=== PATIENT | female | born 1975 | race Caucasian/White ===

== ENCOUNTER 2017-01-13 14:08 | Emergency (ER) | payer BC, MEDICARE ==
[2017-01-13 14:34] VITALS: BP 109/67
[2017-01-13] MEDS ORDERED: Ondansetron 4 MG Tab.DIS PO ONE (14:51)
--- NOTE | 2017-01-13 15:19 | EDM.PDOC ---
ED HPI GI/ABDOMINAL - General Chief Complaint: Abdominal Pain Stated Complaint: PANCREATITIS Time Seen by Provider: 01/13/17 14:31 Source of Information: Reports: Patient History Limitations: Reports: No limitations - History of Present Illness INITIAL COMMENTS - FREE TEXT/NARRATIVE: The patient presents with left upper quadrant abdominal pain. This started yesterday and it has gotten worse. She has some nausea and vomiting. She has no dysuria. She has a history of pencreatitis. She was scheduled to see a specialist at the [facility] and have surgery. That was canceled and rescheduled for the middle of january. She has been doing good for awhile. She does not think she ate anything to trigger this. Timing/Duration: Reports: Day(s): (Yesterday) Location: [facility] Quality: Reports: stabbing Context: Denies: bad/questionable food, out of country travel, recent surgery, recent trauma Associated Symptoms (-Female): Reports: nausea/vomiting. Denies: chest pain, diarrhea, fever/chills - Related Data Allergies/ADRs: Allergies Allergy/AdvReac Type Severity Reaction Status Date / Time ketorolac [From Toradol] Allergy Bleeding Verified 01/13/17 14:18 metoclopramide HCl Allergy Itching Verified 01/13/17 14:18 [From Reglan] buprenorphine [From Butrans] AdvReac Other Verified 01/13/17 14:18 ketorolac tromethamine AdvReac Stomach Verified 01/13/17 14:18 [From Toradol] Upset prochlorperazine AdvReac Vomiting Verified 01/13/17 14:18 [From Compazine] Home Meds: Home Meds Promethazine [Phenergan] 25 mg PO Q8H PRN 12/15/16 [History] Sertraline [Zoloft] 100 mg PO DAILY 12/15/16 [History] oxyCODONE HCl/Acetaminophen [Percocet 5-325 mg Tablet] 1 tab PO ASDIRECTED PRN 12/15/16 [History] Levothyroxine Sodium [Synthroid] 200 mcg PO DAILY 01/13/17 [History] Past Medical History - Past Health History Medical/Surgical History: Denies Medical/Surgical History HEENT History: Reports: Glaucoma Other Respiratory History: cough RLQ Gastrointestinal History: Reports: Pancreatitis Other OB/BYN History: c section x3, tubes tied Musculoskeletal History: Reports: Arthritis Neurological History: 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 (see below) Other Neuro History: pseudotumor Psychiatric History: Reports: Addiction Endocrine/Metabolic History: Reports: Hypothyroidism - Past Surgical History GI Surgical History: Reports: Appendectomy, Bariatric procedure, Cholecystectomy Female Surgical History: Reports: section, Tubal ligation Social & Family History - Family History Family Medical History: Noncontributory Cardiac: Reports: Bypass, Hypertension, [place] Respiratory: Reports: Asthma Oncologic: Reports: Colon - Tobacco Use Smoking Status *Q: Never Smoker Packs/Tins Daily: 1 Used Tobacco, but Quit: Yes Month Tobacco Last Used: 23 years ago Second Hand Smoke Exposure: No - Caffeine Use Caffeine Use: Reports: None - Alcohol Use Days Per Week of Alcohol Use: 0 - Recreational Drug Use Recreational Drug Use: No Drug Use in Last 12 Months: No - Living Situation & Occupation Living situation: Reports: , with spouse Occupation: unemployed ED ROS GENERAL - Review of Systems Review Of Systems: See Below Constitutional: Reports: no symptoms HEENT: Reports: No symptoms Respiratory: Reports: no symptoms Cardiovascular: Reports: No symptoms Endocrine: Reports: no symptoms GI/Abdominal: Reports: Abdominal pain, Nausea, Vomiting : Reports: no symptoms Musculoskeletal: Reports: no symptoms Skin: Reports: no symptoms Neurological: Reports: no symptoms ED EXAM, GI/ABD - Physical Exam Exam: See Below Exam Limited By: No limitations General Appearance: alert, no apparent distress Ears: normal external exam Nose: normal inspection Head: atraumatic, normocephalic Neck: normal inspection Respiratory/Chest: no respiratory distress, lungs clear, normal breath sounds Cardiovascular: regular rate, rhythm, no edema, no murmur GI/Abdominal: soft, no organomegaly, tenderness (Moderate tenderness to the left upper abdomen) Back Exam: normal inspection Extremities: normal inspection Course - Vital Signs Last Recorded V/S: Last Vital Signs Temp 97.3 F 01/13/17 14:20 Pulse 76 01/13/17 14:20 Resp 16 01/13/17 14:20 BP 109/67 01/13/17 14:20 Pulse Ox 100 01/13/17 14:20 - Orders/Labs/Meds Orders: Active Orders 24 hr Category Date Time Status Cardiac Monitoring [RC] . DIRECTED Care 01/13/17 14:51 Active HYDROmorphone [Dilaudid] Med 01/13/17 16:48 Once 1 mg IM ONETIME ONE Promethazine [Phenergan] Med 01/13/17 16:49 Once 25 mg IM ONETIME ONE Labs: Laboratory Tests 01/13/17 01/13/17 01/13/17 Range/Units 15:12 15:12 15:20 WBC 9.29 (3.98-10.04) K/mm3 RBC 3.88 L (3.98-5.22) M/mm3 Hgb 11.4 (11.2-15.7) gm/L Hct 35.4 (34.1-44.9) % MCV 91.2 (79.4-94.8) fl MCH 29.4 (25.6-32.2) pg MCHC 32.2 (32.2-35.5) g/dl RDW Std Deviation 49.1 H (36.4-46.3) fL Plt Count 298 (182-369) K/mm3 MPV 10.3 (9.4-12.3) fl Neut % (Auto) 54.2 (34.0-71.1) % Lymph % (Auto) 34.3 (19.3-51.7) % [place] % (Auto) 10.0 (4.7-12.5) % Eos % (Auto) 1.2 (0.7-5.8) Baso % (Auto) 0.2 (0.1-1.2) % Neut # 5.03 (1.56-6.13) K/mm3 Lymph # 3.19 (1.18-3.74) K/mm3 [place] # 0.93 H (0.24-0.36) K/mm3 Eos # 0.11 (0.04-0.36) K/mm3 Baso # 0.02 (0.01-0.08) K/mm3 Sodium 140 (136-145) mEq/L Potassium 3.9 (3.5-5.1) mEq/L Chloride 106 (98-107) mEq/L Carbon Dioxide 23 (21-32) mEq/L Anion Gap 14.9 (5-15) BUN 10 (7-18) mg/dL Creatinine 0.7 (0.55-1.02) mg/dL Est Cr Clr Drug Dosing TNP Estimated GFR (MDRD) > 60 (>60) mL/min BUN/Creatinine Ratio 14.3 (14-18) Glucose 88 (74-106) mg/dL Calcium 9.2 (8.5-10.1) mg/dL Total Bilirubin 0.1 L (0.2-1.0) mg/dL AST 14 L (15-37) U/L ALT 18 (14-59) U/L Alkaline Phosphatase 68 (46-116) U/L Total Protein 7.6 (6.4-8.2) g/dl Albumin 3.6 (3.4-5.0) g/dl Globulin 4.0 gm/dL Albumin/Globulin Ratio 0.9 L (1-2) Lipase 673 H (73-393) U/L Urine Color Yellow (Yellow) Urine Appearance Clear (Clear) Urine pH 8.5 H (5.0-8.0) Ur Specific [place] 1.015 (1.005-1.030) Urine Protein 2+ H (Negative) Urine Glucose (UA) Negative (Negative) Urine Ketones Negative (Negative) Urine Occult Blood Negative (Negative) Urine Nitrite Negative (Negative) Urine Bilirubin Negative (Negative) Urine Urobilinogen 1.0 (0.2-1.0) Ur Leukocyte Esterase Negative (Negative) Urine RBC 0-5 (0-5) /hpf Urine WBC 0-5 (0-5) /hpf Ur Squamous Epith Cells 0-5 (0-5) /hpf Urine Bacteria Few (FEW) /hpf Urine Mucus Not seen (FEW) /hpf Meds: Medications Discontinued Medications Generic Name Dose Route Start Last Admin Trade Name Dominic PRN Reason Stop Dose Admin Ondansetron HCl 4 mg 01/13/17 14:51 01/13/17 15:10 Zofran Odt PO 01/13/17 14:52 4 mg ONETIME ONE Administration - Re-Assessments/Exams Free Text/Narrative Re-Assessment/Exam: 01/13/17 15:24 I have ordered some zofran for the nausea and vomiting and I will get labs and a UA. 01/13/17 16:49 Her CBC and CMP look good. Her UA shows no UTI. Her lipase is elevated to 673. I ordered some dilaudid 1mg IM and phenergan 25mg IM. Departure - Departure Time of Disposition: 16:55 Disposition: Home, Self-Care 01 Condition: good Clinical Impression: History of chronic pancreatitis Referrals: Rik Walls PA-C [Primary Care Provider] - Forms: ED Department Discharge Additional Instructions: Take a clear liquid diet for a couple day sand advance as tolerated. Continue with your medication as prescribed. - My Orders Last 24 Hours: My Active Orders 01/13/17 14:51 Cardiac Monitoring [RC] . DIRECTED 01/13/17 16:48 HYDROmorphone [Dilaudid] 1 mg IM ONETIME ONE 01/13/17 16:49 Promethazine [Phenergan] 25 mg IM ONETIME ONE - Assessment/Plan Last 24 Hours: My Active Orders 01/13/17 14:51 Cardiac Monitoring [RC] . DIRECTED 01/13/17 16:48 HYDROmorphone [Dilaudid] 1 mg IM ONETIME ONE 01/13/17 16:49 Promethazine [Phenergan] 25 mg IM ONETIME ONE
[2017-01-13] MEDS ORDERED: HYDROmorphone 1 MG/ML Syringe IM ONE (16:48)
[2017-01-13] MEDS ORDERED: Promethazine 25 MG/ML SDV IM ONE (16:49)
== END 2017-01-13 17:15 | disposition home or self-care (01) ==
LOC: JD.ED 14:08
DX: K86.1 Other chronic pancreatitis (principal); M19.90 Unspecified osteoarthritis, unspecified site; E03.9 Hypothyroidism, unspecified; Z88.6 Allergy status to analgesic agent; Z88.8 Allergy status to other drugs, medicaments and biological substances; Z90.49 Acquired absence of other specified parts of digestive tract; Z98.84 Bariatric surgery status; Z98.51 Tubal ligation status
CPT/HCPCS: 36415; 80053; 81001; 83690; 85025; 96372; 99284; 99284-25; A9270-GY; J1170; J2550

== ENCOUNTER 2017-01-14 08:56 | Emergency (ER) | payer BC, MEDICARE ==
--- NOTE | 2017-01-14 09:36 | EDM.PDOC ---
ED HPI GI/ABDOMINAL - General Chief Complaint: Abdominal Pain Stated Complaint: PANCREATITIS Time Seen by Provider: 01/14/17 09:29 Source of Information: Reports: Patient, RN notes reviewed - History of Present Illness INITIAL COMMENTS - FREE TEXT/NARRATIVE: 41-year-old lady comes in with left upper quadrant abdominal pain. This started yesterday. She was seen here in the ED yesterday for those symptoms. See that record for details. The pain is worse today. She has had nausea but not vomiting today. She has had diarrhea also this started about 2 days ago. She's had some chills, no definite fever. She does have history of "chronic pancreatitis". Her and her are very worried about that. Her lipase was elevated yesterday. Today the discomfort also is radiating to her back. He states she does have an appointment to see a [facility]special[facility]. - Related Data Allergies/ADRs: Allergies Allergy/AdvReac Type Severity Reaction Status Date / Time ketorolac [From Toradol] Allergy Bleeding Verified 01/14/17 09:10 metoclopramide HCl Allergy Itching Verified 01/14/17 09:10 [From Reglan] buprenorphine [From Butrans] AdvReac Other Verified 01/14/17 09:10 ketorolac tromethamine AdvReac Stomach Verified 01/14/17 09:10 [From Toradol] Upset prochlorperazine AdvReac Vomiting Verified 01/14/17 09:10 [From Compazine] Home Meds: Home Meds Promethazine [Phenergan] 25 mg PO Q8H PRN 12/15/16 [History] Sertraline [Zoloft] 100 mg PO DAILY 12/15/16 [History] oxyCODONE HCl/Acetaminophen [Percocet 5-325 mg Tablet] 1 tab PO ASDIRECTED PRN 12/15/16 [History] Levothyroxine Sodium [Synthroid] 200 mcg PO DAILY 01/13/17 [History] Past Medical History - Past Health History Medical/Surgical History: Denies Medical/Surgical History HEENT History: Reports: Glaucoma Other Respiratory History: cough RLQ Gastrointestinal History: Reports: Pancreatitis Other OB/BYN History: c section x3, tubes tied Musculoskeletal History: Reports: Arthritis Neurological History: 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 (see below) Other Neuro History: pseudotumor Psychiatric History: Reports: Addiction Endocrine/Metabolic History: Reports: Hypothyroidism - Past Surgical History GI Surgical History: Reports: Appendectomy, Bariatric procedure, Cholecystectomy Female Surgical History: Reports: section, Tubal ligation Social & Family History - Family History Family Medical History: Noncontributory Cardiac: Reports: Bypass, Hypertension, [place] Respiratory: Reports: Asthma Oncologic: Reports: Colon - Tobacco Use Smoking Status *Q: Former Smoker Packs/Tins Daily: 1 Used Tobacco, but Quit: Yes Month Tobacco Last Used: 23 years Second Hand Smoke Exposure: No - Caffeine Use Caffeine Use: Reports: None - Alcohol Use Days Per Week of Alcohol Use: 0 - Recreational Drug Use Recreational Drug Use: No Drug Use in Last 12 Months: No - Living Situation & Occupation Living situation: Reports: , with spouse Occupation: unemployed ED ROS GENERAL - Review of Systems Review Of Systems: See Below Constitutional: Reports: chills. Denies: fever HEENT: Reports: No symptoms Respiratory: Denies: shortness of breath Cardiovascular: Denies: Chest pain GI/Abdominal: Reports: Abdominal pain (left upper quadrant), Diarrhea (somewhat frequent for the past 2 days), Nausea. Denies: Vomiting : Reports: no symptoms Musculoskeletal: Reports: back pain Skin: Reports: no symptoms Neurological: Denies: dizziness, numbness, tingling ED EXAM, GI/ABD - Physical Exam Exam: See Below General Appearance: alert, moderate distress Eyes: bilateral: normal appearance, EOMI Throat/Mouth: Normal inspection Head: atraumatic. No: facial swelling Neck: supple, full range of motion Respiratory/Chest: no respiratory distress, lungs clear, normal breath sounds Cardiovascular: regular rate, rhythm GI/Abdominal: soft, tenderness (left upper abdomen). No: guarding, rebound, mass Back Exam: No: CVA tenderness (L), CVA tenderness (R) Extremities: normal inspection. No: pedal edema, leg pain Neurological: alert, oriented, no motor/sensory deficits Skin Exam: Warm, Dry, Normal color Course - Vital Signs Last Recorded V/S: Last Vital Signs Temp 97.4 F 01/14/17 09:05 Pulse 68 01/14/17 09:05 Resp 16 01/14/17 09:05 BP 106/73 01/14/17 09:05 Pulse Ox 98 01/14/17 09:05 - Orders/Labs/Meds Orders: Active Orders 24 hr Category Date Time Status Peripheral IV Care [RC] . DIRECTED Care 01/14/17 10:17 Active Abdomen Pelvis w Cont [CT] Stat Exams 01/14/17 10:16 Taken Ketorolac [Toradol] Med 01/14/17 13:00 Active 30 mg IVPUSH ONETIME Sodium Chloride 0.9% [Saline Flush] Med 01/14/17 10:16 Active 10 ml FLUSH ASDIRECTED PRN Peripheral IV Insertion Adult [OM.PC] Stat Oth 01/14/17 10:16 Ordered Medication Orders Ketorolac Tromethamine (Toradol) 30 mg IVPUSH ONETIME [facility] Last Admin: 01/14/17 12:59 Dose: 30 mg Sodium Chloride (Saline Flush) 10 ml FLUSH ASDIRECTED PRN PRN Reason: Keep Vein Open Last Admin: 01/14/17 11:27 Dose: 10 ml Admin: 01/14/17 10:29 Dose: 10 ml Labs: Laboratory Tests 01/14/17 01/14/17 01/14/17 Range/Units 09:45 09:45 09:45 WBC 7.53 (3.98-10.04) K/mm3 RBC 4.16 (3.98-5.22) M/mm3 Hgb 12.0 (11.2-15.7) gm/L Hct 37.7 (34.1-44.9) % MCV 90.6 (79.4-94.8) fl MCH 28.8 (25.6-32.2) pg MCHC 31.8 L (32.2-35.5) g/dl RDW Std Deviation 49.2 H (36.4-46.3) fL Plt Count 276 (182-369) K/mm3 MPV 10.3 (9.4-12.3) fl Neut % (Auto) 52.6 (34.0-71.1) % Lymph % (Auto) 38.1 (19.3-51.7) % [place] % (Auto) 7.4 (4.7-12.5) % Eos % (Auto) 1.3 (0.7-5.8) Baso % (Auto) 0.5 (0.1-1.2) % Neut # 3.95 (1.56-6.13) K/mm3 Lymph # 2.87 (1.18-3.74) K/mm3 [place] # 0.56 H (0.24-0.36) K/mm3 Eos # 0.10 (0.04-0.36) K/mm3 Baso # 0.04 (0.01-0.08) K/mm3 Sodium 140 (136-145) mEq/L Potassium 3.9 (3.5-5.1) mEq/L Chloride 106 (98-107) mEq/L Carbon Dioxide 23 (21-32) mEq/L Anion Gap 14.9 (5-15) BUN 12 (7-18) mg/dL Creatinine 0.8 (0.55-1.02) mg/dL Est Cr Clr Drug Dosing TNP Estimated GFR (MDRD) > 60 (>60) mL/min BUN/Creatinine Ratio 15.0 (14-18) Glucose 83 (74-106) mg/dL Calcium 9.3 (8.5-10.1) mg/dL Total Bilirubin 0.2 (0.2-1.0) mg/dL AST 14 L (15-37) U/L ALT 20 (14-59) U/L Alkaline Phosphatase 71 (46-116) U/L C-Reactive Protein 0.4 (<1.0) mg/dL Total Protein 8.0 (6.4-8.2) g/dl Albumin 3.7 (3.4-5.0) g/dl Globulin 4.3 gm/dL Albumin/Globulin Ratio 0.9 L (1-2) Amylase 85 (25-115) U/L Lipase 695 H (73-393) U/L Meds: Medications Generic Name Dose Route Start Last Admin Trade Name Freq PRN Reason Stop Dose Admin Ketorolac Tromethamine 30 mg 01/14/17 13:00 01/14/17 12:59 Toradol IVPUSH 30 mg ONETIME [place] Administration Sodium Chloride 10 ml 01/14/17 10:16 01/14/17 11:27 Saline Flush FLUSH 10 ml ASDIRECTED PRN Administration Keep Vein Open Discontinued Medications Generic Name Dose Route Start Last Admin Trade Name Freq PRN Reason Stop Dose Admin Diatrizoate Meglum/Diatrizoate Sod 120 ml 01/14/17 11:13 01/14/17 11:27 Gastrografin 37% PO 01/14/17 11:14 90 ml ONETIME ONE Administration Hydromorphone HCl 2 mg 01/14/17 09:43 01/14/17 09:50 Dilaudid IM 01/14/17 09:44 2 mg ONETIME ONE Administration Iopamidol 150 ml 01/14/17 11:13 01/14/17 11:27 Isovue-300 (61%) IVPUSH 01/14/17 11:14 125 ml ONETIME ONE Administration Ondansetron HCl 4 mg 01/14/17 09:43 01/14/17 09:50 Zofran Odt PO 01/14/17 09:44 4 mg ONETIME ONE Administration Sodium Chloride 10 ml 01/14/17 11:13 01/14/17 11:36 Saline Flush FLUSH 01/14/17 11:14 10 ml ONETIME ONE Administration - Re-Assessments/Exams Free Text/Narrative Re-Assessment/Exam: 01/14/17 12:36.pancreas and area of the pancreas is unremarkable on CT. There was some mild wall thickening of the left upper quadrant jejunal loops. C. radiologist report for details. lipase again is mildly elevated today, however amylase totally normal it ED 5. White blood count also normal and decreased from yesterday and C. reactive protein 0.4. Other chemistries also normal. We did give 2 mg Dilaudid IM shortly after patient's arrival along with Zofran 4 mg ODT.she did well with the pain initially, now it is starting to come back. We 'll give Toradol 30 mg IV. Discharge instructions as documented Departure - Departure Time of Disposition: 12:46 Disposition: Home, Self-Care 01 Condition: fair Clinical Impression: Abdominal pain, Enteritis Instructions: Abdominal Pain, Adult, [id number] Referrals: Rik Walls PA-C [Primary Care Provider] - Forms: ED Department Discharge Additional Instructions: rest, clear liquids until tomorrow afternoon, than careful bland diet as tolerated, stay off of dairy products for 3 to 4 days, start probiotic twice daily and take that for one to 2 weeks until you know you are completely back to normal, followup clinic in 2 days if not better or early next week if not back to normal as expected, return to ED as needed - My Orders Last 24 Hours: My Active Orders 01/14/17 10:16 Abdomen Pelvis w Cont [CT] Stat Sodium Chloride 0.9% [Saline Flush] 10 ml FLUSH ASDIRECTED PRN Peripheral IV Insertion Adult [OM.PC] Stat 01/14/17 10:17 Peripheral IV Care [RC] . DIRECTED 01/14/17 13:00 Ketorolac [Toradol] 30 mg IVPUSH ONETIME - Assessment/Plan Last 24 Hours: My Active Orders 01/14/17 10:16 Abdomen Pelvis w Cont [CT] Stat Sodium Chloride 0.9% [Saline Flush] 10 ml FLUSH ASDIRECTED PRN Peripheral IV Insertion Adult [OM.PC] Stat 01/14/17 10:17 Peripheral IV Care [RC] . DIRECTED 01/14/17 13:00 Ketorolac [Toradol] 30 mg IVPUSH ONETIME
[2017-01-14] MEDS ORDERED: Ondansetron 4 MG Tab.DIS PO ONE (09:43)
[2017-01-14] MEDS ORDERED: HYDROmorphone 1 MG/ML Syringe IM ONE (09:43)
[2017-01-14] MEDS: Sodium Chloride 0.9% 10 ML Syringe FLUSH PRN ×2 (10:29→11:27)
[2017-01-14] MEDS ORDERED: Diatrizoate Meglumine/Diatrizoate Sodium 37% 120 ML Bottle PO ONE (11:13)
[2017-01-14] MEDS ORDERED: Iopamidol 612 MG/ML 150 ML Bottle IVPUSH ONE (11:13)
[2017-01-14] MEDS ORDERED: Sodium Chloride 0.9% 10 ML Syringe FLUSH ONE (11:13)
[2017-01-14] MEDS ORDERED: Ketorolac 30 MG/ML SDV IVPUSH SCH (13:00)
[2017-01-14 13:31] VITALS: BP 100/70
--- NOTE | 2017-01-15 13:24 | CT ---
CT abdomen and pelvis Technique: Multiple axial sections were obtained from above the dome of the diaphragm inferiorly through the pubic symphysis. Intravenous and oral contrast was utilized. Delayed images were also obtained through the bladder. Comparison: Previous abdominal ultrasound of the right upper quadrant dated 06/10/16 is available, previous CT abdomen and pelvis study of 05/29/16 is available. Findings: Visualized lung bases show nothing acute. Liver shows no focal abnormality other than a stable area of fat next to the ligamentum teres fissure. Spleen appears normal. Shunt catheter appears to be present with one end being within the central canal within the lumbar level and other end of the canal being within the abdomen. Second shunt appears to be present more anteriorly. Adrenal glands show no nodule. Kidneys show symmetric contrast enhancement without hydronephrosis or mass. Pancreas appears normal. Previous cholecystectomy is noted. Aorta shows no aneurysmal dilatation. No retroperitoneal adenopathy is seen. Slight bowel wall thickening is seen within several jejunal loops within the left upper abdomen. Mild increased stool is noted within portions of the colon. No pelvic mass or adenopathy is seen. Delayed images shows small amount of contrast within the bladder. No free fluid or inflammatory change is seen. Small amount of gastroesophageal reflux of contrast is seen into the distal esophagus. Minimal periumbilical fat-containing hernia is seen. Bone window settings were reviewed which show scattered degenerative change within the spine. Impression: 1. Shunt catheters terminating within the peritoneum as an incidental note. 2. Mild bowel wall thickening within several jejunal loops presumably representing nonspecific enteritis. 3. Other incidental findings as described above. Diagnostic code #3 Agree with preliminary report issued by [facility] ([facility] report dictated on , 12:53 PM Central Time
== END 2017-01-14 13:30 | disposition home or self-care (01) ==
LOC: JD.ED 08:56
DX: K52.9 Noninfective gastroenteritis and colitis, unspecified (principal); R10.12 Left upper quadrant pain; E03.9 Hypothyroidism, unspecified; Z90.49 Acquired absence of other specified parts of digestive tract; Z98.51 Tubal ligation status; Z98.84 Bariatric surgery status; Z98.890 Other specified postprocedural states; Z79.899 Other long term (current) drug therapy; Z87.891 Personal history of nicotine dependence; Z88.8 Allergy status to other drugs, medicaments and biological substances
CPT/HCPCS: 36415; 74177; 80053; 82150; 83690; 85025; 86140; 96372; 96374; 99284; A9270; J1170; J1885; J7050; Q9963; Q9967

== ENCOUNTER 2017-01-18 08:04 | Emergency (ER) | payer BC, MEDICARE ==
[2017-01-18] MEDS ORDERED: HYDROmorphone 1 MG/ML Syringe IM ONE (08:44)
[2017-01-18] MEDS ORDERED: Promethazine 25 MG/ML SDV IM ONE (08:45)
--- NOTE | 2017-01-18 08:58 | EDM.PDOC ---
ED HPI GI/ABDOMINAL - General Chief Complaint: Gastrointestinal Problem Stated Complaint: PANCREATITIS Time Seen by Provider: 01/18/17 08:15 Source of Information: Reports: Patient History Limitations: Reports: No limitations - History of Present Illness INITIAL COMMENTS - FREE TEXT/NARRATIVE: The patient presents with LUQ abdominal pain, nausea and vomiting. This is a chronic problem for her. She has either chronic pancreatitis or fatty infiltrate of her pancreas. She is scheduled to go to [facility] ER in [place] on January 28. She has been to this ER twice in the past 10 days. This last episode started this morning. She did not eat anything that would have triggered this. She is on a very bland diet. She has no fever, chills, cough, chest pain or shortness of breath. Timing/Duration: Reports: Hour(s): Location: LUQ Quality: Reports: stabbing Severity: severe Context: Denies: sick contact, bad/questionable food, out of country travel, recent surgery, recent trauma, lifting, activity/exercise Associated Symptoms (-Female): Reports: nausea/vomiting. Denies: shoulder pain, constipation, diarrhea, fever/chills - Related Data Allergies/ADRs: Allergies Allergy/AdvReac Type Severity Reaction Status Date / Time ketorolac [From Toradol] Allergy Bleeding Verified 01/18/17 08:16 metoclopramide HCl Allergy Itching Verified 01/18/17 08:16 [From Reglan] buprenorphine [From Butrans] AdvReac Other Verified 01/18/17 08:16 ketorolac tromethamine AdvReac Stomach Verified 01/18/17 08:16 [From Toradol] Upset prochlorperazine AdvReac Vomiting Verified 01/18/17 08:16 [From Compazine] Home Meds: Home Meds Promethazine [Phenergan] 25 mg PO Q8H PRN 12/15/16 [History] Sertraline [Zoloft] 100 mg PO DAILY 12/15/16 [History] oxyCODONE HCl/Acetaminophen [Percocet 5-325 mg Tablet] 1 tab PO ASDIRECTED PRN 12/15/16 [History] Levothyroxine Sodium [Synthroid] 200 mcg PO DAILY 01/13/17 [History] ALPRAZolam [Alprazolam] 1 tab PO TID PRN 01/18/17 [History] Ondansetron HCl [Zofran] 4 mg PO Q6H PRN 01/18/17 [History] Pregabalin [Lyrica] 1 tab PO TID 01/18/17 [History] oxyCODONE HCl [Oxycontin] 1 tab PO BID 01/18/17 [History] traMADol [Ultram] 50 mg PO Q6H PRN 01/18/17 [History] Past Medical History - Past Health History Medical/Surgical History: Denies Medical/Surgical History HEENT History: Reports: Glaucoma Other Respiratory History: cough RLQ Gastrointestinal History: Reports: Pancreatitis, Other (see below) Other Gastrointestinal History: chronic pancreatitis, fatty pancreas Other OB/BYN History: c section x3, tubes tied Musculoskeletal History: Reports: Arthritis Neurological History: 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 (see below) Other Neuro History: pseudotumor Psychiatric History: Reports: Addiction, Anxiety, Emotional problems Endocrine/Metabolic History: Reports: Hypothyroidism - Past Surgical History GI Surgical History: Reports: Appendectomy, Bariatric procedure, Cholecystectomy , ERCP Female Surgical History: Reports: section, Tubal ligation Social & Family History - Family History Family Medical History: Noncontributory Cardiac: Reports: Bypass, Hypertension, [place] Respiratory: Reports: Asthma Oncologic: Reports: Colon - Tobacco Use Smoking Status *Q: Never Smoker Packs/Tins Daily: 1 Used Tobacco, but Quit: Yes Month Tobacco Last Used: 23 years Second Hand Smoke Exposure: No - Caffeine Use Caffeine Use: Reports: None - Alcohol Use Days Per Week of Alcohol Use: 0 - Recreational Drug Use Recreational Drug Use: No Drug Use in Last 12 Months: No - Living Situation & Occupation Living situation: Reports: , with spouse Occupation: unemployed ED ROS GENERAL - Review of Systems Review Of Systems: See Below Constitutional: Reports: no symptoms HEENT: Reports: No symptoms Respiratory: Reports: no symptoms Cardiovascular: Reports: No symptoms Endocrine: Reports: no symptoms GI/Abdominal: Reports: Abdominal pain, Nausea, Vomiting : Reports: no symptoms Musculoskeletal: Reports: no symptoms ED EXAM, GI/ABD - Physical Exam Exam: See Below Exam Limited By: No limitations General Appearance: alert, no apparent distress Ears: normal external exam Nose: normal inspection Throat/Mouth: Normal inspection Head: atraumatic, normocephalic Neck: normal inspection Respiratory/Chest: no respiratory distress, lungs clear, normal breath sounds Cardiovascular: regular rate, rhythm, no edema, no murmur GI/Abdominal: soft, no organomegaly, no mass, tenderness (Mild to moderate to the LUQ) Back Exam: normal inspection Extremities: normal inspection Course - Vital Signs Last Recorded V/S: Last Vital Signs Temp 96.6 F 01/18/17 08:08 Pulse 81 01/18/17 08:08 Resp 18 01/18/17 08:08 BP 123/85 01/18/17 08:08 Pulse Ox 99 01/18/17 08:08 - Orders/Labs/Meds Labs: Laboratory Tests 01/18/17 01/18/17 Range/Units 09:09 09:09 WBC 9.05 (3.98-10.04) K/mm3 RBC 4.36 (3.98-5.22) M/mm3 Hgb 12.7 (11.2-15.7) gm/L Hct 39.3 (34.1-44.9) % MCV 90.1 (79.4-94.8) fl MCH 29.1 (25.6-32.2) pg MCHC 32.3 (32.2-35.5) g/dl RDW Std Deviation 48.2 H (36.4-46.3) fL Plt Count 292 (182-369) K/mm3 MPV 10.3 (9.4-12.3) fl Neut % (Auto) 66.6 (34.0-71.1) % Lymph % (Auto) 25.3 (19.3-51.7) % Barren % (Auto) 7.3 (4.7-12.5) % Eos % (Auto) 0.4 L (0.7-5.8) Baso % (Auto) 0.3 (0.1-1.2) % Neut # 6.02 (1.56-6.13) K/mm3 Lymph # 2.29 (1.18-3.74) K/mm3 Barren # 0.66 H (0.24-0.36) K/mm3 Eos # 0.04 (0.04-0.36) K/mm3 Baso # 0.03 (0.01-0.08) K/mm3 Sodium 143 (136-145) mEq/L Potassium 3.9 (3.5-5.1) mEq/L Chloride 107 (98-107) mEq/L Carbon Dioxide 23 (21-32) mEq/L Anion Gap 16.9 H (5-15) BUN 9 (7-18) mg/dL Creatinine 0.8 (0.55-1.02) mg/dL Est Cr Clr Drug Dosing 137.75 mL/min Estimated GFR (MDRD) > 60 (>60) mL/min BUN/Creatinine Ratio 11.3 L (14-18) Glucose 86 (74-106) mg/dL Calcium 9.2 (8.5-10.1) mg/dL Total Bilirubin 0.2 (0.2-1.0) mg/dL AST 16 (15-37) U/L ALT 20 (14-59) U/L Alkaline Phosphatase 73 (46-116) U/L Total Protein 8.0 (6.4-8.2) g/dl Albumin 3.8 (3.4-5.0) g/dl Globulin 4.2 gm/dL Albumin/Globulin Ratio 0.9 L (1-2) Amylase 85 (25-115) U/L Lipase 509 H (73-393) U/L Meds: Medications Discontinued Medications Generic Name Dose Route Start Last Admin Trade Name Freq PRN Reason Stop Dose Admin Hydromorphone HCl 1 mg 01/18/17 08:44 01/18/17 08:59 Dilaudid IM 01/18/17 08:45 1 mg ONETIME ONE Administration Promethazine HCl 25 mg 01/18/17 08:45 01/18/17 08:59 Phenergan IM 01/18/17 08:46 25 mg ONETIME ONE Administration - Re-Assessments/Exams Free Text/Narrative Re-Assessment/Exam: 01/18/17 09:00 I ordered a shot of dilaudid 1mg IM and phenergan 25mg IM. 01/18/17 09:50 Her WBC is normal. Her lipase is 509 today and her amylase is normal. She is feeling better. I will discharge her home. Departure - Departure Time of Disposition: 09:50 Disposition: Home, Self-Care 01 Condition: good Clinical Impression: Abdominal pain Referrals: Rik Walls PA-C [Primary Care Provider] - Forms: ED Department Discharge Additional Instructions: Take your medication as prescribed. Continue with the bland diet you are on and follow up with the specialist on the .
[2017-01-18 10:05] VITALS: BP 135/90
== END 2017-01-18 09:55 | disposition home or self-care (01) ==
LOC: JD.ED 08:04
DX: R10.12 Left upper quadrant pain (principal); M19.90 Unspecified osteoarthritis, unspecified site; F41.9 Anxiety disorder, unspecified; E03.9 Hypothyroidism, unspecified; Z79.899 Other long term (current) drug therapy; Z87.891 Personal history of nicotine dependence; Z88.6 Allergy status to analgesic agent; Z88.8 Allergy status to other drugs, medicaments and biological substances
CPT/HCPCS: 36415; 80053; 82150; 83690; 85025; 96372; 99284; J1170; J2550

== ENCOUNTER 2017-02-13 09:26 | Emergency (ER) | payer BC, MEDICARE ==
[2017-02-13 09:40] VITALS: BP 148/105
[2017-02-13] MEDS ORDERED: HYDROmorphone 1 MG/ML Syringe IM ONE ×2 (10:11→11:38)
[2017-02-13] MEDS ORDERED: Metoclopramide 10 MG/2 ML SDV IM ONE (10:11)
--- NOTE | 2017-02-13 10:14 | EDM.PDOC ---
ED HPI GI/ABDOMINAL - General Chief Complaint: Abdominal Pain Stated Complaint: ABDOMINAL PAIN Time Seen by Provider: 02/13/17 10:01 Source of Information: Reports: Patient History Limitations: Reports: No limitations - History of Present Illness INITIAL COMMENTS - FREE TEXT/NARRATIVE: 41-year-old female presents to the ED with acute onset of left upper quadrant pain rating suture her left back infrascapular area compatible with her previous history of recurrent chronic pancreatitis. She states it started about midnight last night. She has vomited once of bilious material. Bowels are always on the loose side. She's been tried on pancreatic enzymes for the last 2 weeks with no change in the pattern of her bowels or pain. Pain is continuous but out of control today she rates it as 8 or 9/10. She reports she's lost about 100 pounds since his illness began a year ago. She is currently being seen by Dr. Gutierrez at the [facility]. Numerous investigations have confirmed that she has chronic pancreatitis by but primarily involving the tail of the pancreas. She is due for a temp that a pancreatic stent placement in 2 weeks' time. If this fails to control her chronic pain she is looking at possible partial pancreatectomy. Patient did take a Zofran last evening and it has helped calm her stomach a bit with no further vomiting. Remains mildly nauseated this time. Stools are always loose depending how much she eats in the day. Usually typically 6 times a day loose and watery without blood Symptom Onset Date: 02/13/17 Symptom Onset Time: 00:00 Timing/Duration: Reports: Hour(s):, Gradual onset Location: LUQ (Radiating through to her left infrascapular area compatible with recurrent pancreatitis pain.) Quality: Reports: ache, throbbing Severity: severe Improves with: Denies: defecating Worsens with: Reports: other (Nothing seems to help but.). Denies: defecating Context: Reports: other (History of chronic pancreatitis.). Denies: sick contact, bad/questionable food, out of country travel, recent surgery Associated Symptoms (-Female): Reports: diarrhea (Chronic loose stools usually 6 per day. While observing food. Has lost 100 pounds of weight over the last year.) Treatments FIRST RESPONDER: 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 (see below) (Zofran sublingual.) - Related Data Allergies/ADRs: Allergies Allergy/AdvReac Type Severity Reaction Status Date / Time ketorolac [From Toradol] Allergy Bleeding Verified 02/13/17 09:33 metoclopramide HCl Allergy Itching Verified 02/13/17 09:33 [From Reglan] buprenorphine [From Butrans] AdvReac Other Verified 02/13/17 09:33 ketorolac tromethamine AdvReac Stomach Verified 02/13/17 09:33 [From Toradol] Upset prochlorperazine AdvReac Vomiting Verified 02/13/17 09:33 [From Compazine] Home Meds: Home Meds Promethazine [Phenergan] 25 mg PO Q8H PRN 12/15/16 [History] Sertraline [Zoloft] 100 mg PO DAILY 12/15/16 [History] Levothyroxine Sodium [Synthroid] 200 mcg PO DAILY 01/13/17 [History] ALPRAZolam [Alprazolam] 1 tab PO TID PRN 01/18/17 [History] Ondansetron HCl [Zofran] 4 mg PO Q6H PRN 01/18/17 [History] Lipase/Protease/Amylase [Viokace 20,880-78,300 Units Tb] 3 tab PO ASDIRECTED [History] Past Medical History - Past Health History Medical/Surgical History: Denies Medical/Surgical History HEENT History: Reports: Glaucoma Other Respiratory History: cough RLQ Gastrointestinal History: Reports: Pancreatitis, Other (see below) Other Gastrointestinal History: chronic pancreatitis, fatty pancreas Other OB/BYN History: c section x3, tubes tied Musculoskeletal History: Reports: Arthritis Neurological History: 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 (see below) Other Neuro History: pseudotumor Psychiatric History: Reports: Addiction, Anxiety, Emotional problems Endocrine/Metabolic History: Reports: Hypothyroidism - Past Surgical History GI Surgical History: Reports: Appendectomy, Bariatric procedure, Cholecystectomy , ERCP Female Surgical History: Reports: section, Tubal ligation Social & Family History - Family History Family Medical History: Noncontributory Cardiac: Reports: Bypass, Hypertension, [place] Respiratory: Reports: Asthma Oncologic: Reports: Colon - Tobacco Use Smoking Status *Q: Never Smoker Packs/Tins Daily: 1 Used Tobacco, but Quit: Yes Month Tobacco Last Used: 23 years Second Hand Smoke Exposure: No - Caffeine Use Caffeine Use: Reports: None - Alcohol Use Days Per Week of Alcohol Use: 0 - Recreational Drug Use Recreational Drug Use: No Drug Use in Last 12 Months: No - Living Situation & Occupation Living situation: Reports: , with spouse Occupation: unemployed ED ROS GENERAL - Review of Systems Review Of Systems: See Below Constitutional: Reports: malaise, weakness, fatigue. Denies: fever, chills HEENT: Reports: No symptoms (Unable to sleep all night.) Respiratory: Reports: No Symptoms Cardiovascular: Reports: No symptoms Endocrine: Reports: no symptoms GI/Abdominal: Reports: Abdominal pain (See history of present illness.), Vomiting, Other (history of chronic pancreatitis) : Reports: no symptoms Musculoskeletal: Reports: no symptoms Skin: Reports: no symptoms Neurological: Reports: Headache (Chronic headaches getting better since she lost weight.) Hematologic/Lymphatic: Reports: no symptoms Immunologic: Reports: no symptoms ED EXAM, GI/ABD - Physical Exam Exam: See Below Exam Limited By: No limitations General Appearance: alert, WD/WN, moderate distress Eyes: bilateral: normal appearance (No jaundice.) Throat/Mouth: Normal inspection, Normal lips, Normal teeth, Normal gums, Normal oropharynx Respiratory/Chest: no respiratory distress, lungs clear, normal breath sounds, no accessory muscle use Cardiovascular: normal peripheral pulses, regular rate, rhythm, no edema, no gallop, no murmur GI/Abdominal: normal bowel sounds, soft, tenderness (Left upper quadrant abdomen with guarding.), guarding. No: rebound, rigidity Back Exam: normal inspection, other Extremities: normal inspection (Some pain to palpation of the left costophrenic angle.), normal range of motion, non-tender, no pedal edema, normal capillary refill Neurological: alert, oriented, CN II-XII intact, normal cognition, normal gait Psychiatric: normal affect, normal mood Skin Exam: Warm, Intact, Normal color, No rash Course - Vital Signs Last Recorded V/S: Last Vital Signs Temp 36.9 C 02/13/17 09:35 Pulse 85 02/13/17 09:35 Resp 16 02/13/17 09:35 BP 148/105 H 02/13/17 09:35 Pulse Ox 99 02/13/17 09:35 - Orders/Labs/Meds Labs: Laboratory Tests 03/31/17 03/31/17 03/31/17 Range/Units 10:25 10:25 10:34 WBC 7.09 (3.98-10.04) K/mm3 RBC 4.43 (3.98-5.22) M/mm3 Hgb 12.9 (11.2-15.7) gm/L Hct 39.6 (34.1-44.9) % MCV 89.4 (79.4-94.8) fl MCH 29.1 (25.6-32.2) pg MCHC 32.6 (32.2-35.5) g/dl RDW Std Deviation 48.6 H (36.4-46.3) fL Plt Count 280 (182-369) K/mm3 MPV 10.4 (9.4-12.3) fl Neutrophils % (Manual) 49 (40-60) % Band Neutrophils % 0 (0-10) % Lymphocytes % (Manual) 45 H (20-40) % Atypical Lymphs % 0 % Monocytes % (Manual) 1 L (2-10) % Eosinophils % (Manual) 5 (0.7-5.8) % Basophils % (Manual) 0 L (0.1-1.2) Platelet Estimate Adequate RBC Morph Comment Normal Sodium 141 (136-145) mEq/L Potassium 3.5 (3.5-5.1) mEq/L Chloride 105 (98-107) mEq/L Carbon Dioxide 26 (21-32) mEq/L Anion Gap 13.5 (5-15) BUN 5 L (7-18) mg/dL Creatinine 0.7 (0.55-1.02) mg/dL Est Cr Clr Drug Dosing 113.21 mL/min Estimated GFR (MDRD) > 60 (>60) mL/min BUN/Creatinine Ratio 7.1 L (14-18) Glucose 90 (74-106) mg/dL Calcium 9.7 (8.5-10.1) mg/dL Total Bilirubin 0.4 (0.2-1.0) mg/dL GGT 28 (5-55) U/L AST 23 (15-37) U/L ALT 22 (14-59) U/L Alkaline Phosphatase 77 (46-116) U/L C-Reactive Protein 0.2 (<1.0) mg/dL Total Protein 8.8 H (6.4-8.2) g/dl Albumin 4.2 (3.4-5.0) g/dl Globulin 4.6 gm/dL Albumin/Globulin Ratio 0.9 L (1-2) Lipase 587 H (73-393) U/L Urine Color Yellow (Yellow) Urine Appearance Clear (Clear) Urine pH 7.0 (5.0-8.0) Ur Specific [place] 1.020 (1.005-1.030) Urine Protein 1+ H (Negative) Urine Glucose (UA) Negative (Negative) Urine Ketones Negative (Negative) Urine Occult Blood Negative (Negative) Urine Nitrite Negative (Negative) Urine Bilirubin Negative (Negative) Urine Urobilinogen 0.2 (0.2-1.0) Ur Leukocyte Esterase Negative (Negative) Urine RBC 0-5 (0-5) /hpf Urine WBC 0-5 (0-5) /hpf Ur Squamous Epith Cells 0-5 (0-5) /hpf Urine Bacteria Rare (FEW) /hpf Urine Mucus Few (FEW) /hpf Urine Opiates Screen (NEGATIVE) Ur Buprenorphine Scrn (NEGATIVE) Ur Oxycodone Screen (NEGATIVE) Urine Methadone Screen (NEGATIVE) Ur Propoxyphene Screen (NEGATIVE) Ur Barbiturates Screen (NEGATIVE) Ur Tricyclics Screen (NEGATIVE) Ur Phencyclidine Scrn (NEGATIVE) Ur Amphetamine Screen (NEGATIVE) U Methamphetamines Scrn (NEGATIVE) U Benzodiazepines Scrn (NEGATIVE) U Cocaine Metab Screen (NEGATIVE) U Marijuana (THC) Screen (NEGATIVE) 02/13/17 Range/Units 10:34 WBC (3.98-10.04) K/mm3 RBC (3.98-5.22) M/mm3 Hgb (11.2-15.7) gm/L Hct (34.1-44.9) % MCV (79.4-94.8) fl MCH (25.6-32.2) pg MCHC (32.2-35.5) g/dl RDW Std Deviation (36.4-46.3) fL Plt Count (182-369) K/mm3 MPV (9.4-12.3) fl Neutrophils % (Manual) (40-60) % Band Neutrophils % (0-10) % Lymphocytes % (Manual) (20-40) % Atypical Lymphs % % Monocytes % (Manual) (2-10) % Eosinophils % (Manual) (0.7-5.8) % Basophils % (Manual) (0.1-1.2) Platelet Estimate RBC Morph Comment Sodium (136-145) mEq/L Potassium (3.5-5.1) mEq/L Chloride (98-107) mEq/L Carbon Dioxide (21-32) mEq/L Anion Gap (5-15) BUN (7-18) mg/dL Creatinine (0.55-1.02) mg/dL Est Cr Clr Drug Dosing mL/min Estimated GFR (MDRD) (>60) mL/min BUN/Creatinine Ratio (14-18) Glucose (74-106) mg/dL Calcium (8.5-10.1) mg/dL Total Bilirubin (0.2-1.0) mg/dL GGT (5-55) U/L AST (15-37) U/L ALT (14-59) U/L Alkaline Phosphatase (46-116) U/L C-Reactive Protein (<1.0) mg/dL Total Protein (6.4-8.2) g/dl Albumin (3.4-5.0) g/dl Globulin gm/dL Albumin/Globulin Ratio (1-2) Lipase (73-393) U/L Urine Color (Yellow) Urine Appearance (Clear) Urine pH (5.0-8.0) Ur Specific [place] (1.005-1.030) Urine Protein (Negative) Urine Glucose (UA) (Negative) Urine Ketones (Negative) Urine Occult Blood (Negative) Urine Nitrite (Negative) Urine Bilirubin (Negative) Urine Urobilinogen (0.2-1.0) Ur Leukocyte Esterase (Negative) Urine RBC (0-5) /hpf Urine WBC (0-5) /hpf Ur Squamous Epith Cells (0-5) /hpf Urine Bacteria (FEW) /hpf Urine Mucus (FEW) /hpf Urine Opiates Screen Negative (NEGATIVE) Ur Buprenorphine Scrn Negative (NEGATIVE) Ur Oxycodone Screen Negative (NEGATIVE) Urine Methadone Screen Negative (NEGATIVE) Ur Propoxyphene Screen Negative (NEGATIVE) Ur Barbiturates Screen Negative (NEGATIVE) Ur Tricyclics Screen Negative (NEGATIVE) Ur Phencyclidine Scrn Negative (NEGATIVE) Ur Amphetamine Screen Negative (NEGATIVE) U Methamphetamines Scrn Negative (NEGATIVE) U Benzodiazepines Scrn Presumptive positive H (NEGATIVE) U Cocaine Metab Screen Negative (NEGATIVE) U Marijuana (THC) Screen Negative (NEGATIVE) Meds: Medications Discontinued Medications Generic Name Dose Route Start Last Admin Trade Name Dominic PRN Reason Stop Dose Admin Hydromorphone HCl 2 mg 02/13/17 10:11 02/13/17 10:25 Dilaudid IM 02/13/17 10:12 2 mg ONETIME ONE Administration Hydromorphone HCl 2 mg 02/13/17 11:38 02/13/17 11:51 Dilaudid IM 02/13/17 11:39 2 mg ONETIME ONE Administration Metoclopramide HCl 10 mg 02/13/17 10:11 02/13/17 10:28 Reglan IM 02/13/17 10:12 10 mg ONETIME ONE Administration - Radiology Interpretation Free Text/Narrative:: 41-year-old female presents the ED with acute onset of left upper quadrant abdominal pain radiating through to her back compatible with her chronic pancreatitis pain. Hasn't had a flare up for a few weeks. Vomited once overnight. Pain started about midnight last night. He examination reveals guarding in the left upper quadrant abdomen. As above she is scheduled for a pancreatic stent in [place] in 2 weeks' time. Therefore socially she needs pain management. Labs will be drawn to see if the lipase is elevated or not. Not that this means that she does not have pancreatitis. Will be given Dilaudid 2 mg IM and Reglan 10 mg I M. for pain relief - Re-Assessments/Exams Free Text/Narrative Re-Assessment/Exam: 02/13/17 111;40; labs are back and reveal a normal white count is 7.09 with 49% neutrophils and no bands. Hemoglobin is 12.9 hematocrit is 39.6. Platelets 280, 000. Chemistry is essentially normal with potassium low-normal at 3.5. Lipase is elevated at 587. She reports pain initially was settled but is now coming back again. We'll therefore repeat Dilaudid 2 mg IM and she will be discharged from the department her is here to do the driving. Again she is expressing a flareup of chronic pancreatitis which he has had on many occasions and she'll work through this with Zofran at home etc. 02/13/17 12:04 will be discharged to home. Departure - Departure Time of Disposition: 11:57 Disposition: Home, Self-Care 01 Clinical Impression: Chronic recurrent pancreatitis Instructions: Acute Pancreatitis, [id number] Referrals: Titi,Shad W, PA-C [Primary Care Provider] - Forms: ED Department Discharge Additional Instructions: Evaluation and emergent today in regards to development of nausea vomiting and left upper cord abdominal pain radiating to your back about midnight last evening. Compatible with recurrent bout of pancreatitis. This was confirmed on lab work done today showing a lipase of 587. You're treated with 2 intramuscular injections of Dilaudid 2 mg strength as well as Reglan 10 mg IM to alleviate nausea vomiting and pain. Plan is to followup with Dr. Gutierrez at the [facility] for pancreatic stent placement hopefully in the next 2 weeks.
== END 2017-02-13 12:25 | disposition home or self-care (01) ==
LOC: JD.ED 09:26
DX: K86.1 Other chronic pancreatitis (principal); K86.81 Exocrine pancreatic insufficiency; I11.9 Hypertensive heart disease without heart failure; I25.2 Old myocardial infarction; Z88.8 Allergy status to other drugs, medicaments and biological substances; Z79.899 Other long term (current) drug therapy
CPT/HCPCS: 36415; 80053; 80306; 81001; 82977; 83690; 85025; 86140; 96372; 99284; J1170; J2765

== ENCOUNTER 2017-02-14 10:03 | Emergency (ER) | payer BC, MEDICARE ==
[2017-02-14 10:45] VITALS: BP 115/91
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
[2017-02-14] MEDS ORDERED: Metoclopramide 10 MG/2 ML SDV IVPUSH ONE (11:14)
[2017-02-14] MEDS ORDERED: Sodium Chloride 0.9% 1,000 ML IV ONE (11:14)
[2017-02-14] MEDS ORDERED: diphenhydrAMINE 50 MG/ML SDV IVPUSH ONE (11:15)
[2017-02-14] MEDS ORDERED: Metoclopramide 10 MG Tab PO ONE (12:12)
[2017-02-14] MEDS ORDERED: diphenhydrAMINE 50 MG Cap PO STA (12:13)
[2017-02-14] MEDS ORDERED: Promethazine 25 MG/ML SDV IM ONE (12:53)
== END 2017-02-14 13:52 | disposition home or self-care (01) ==
LOC: JD.ED 10:03
DX: R10.12 Left upper quadrant pain (principal); Z88.8 Allergy status to other drugs, medicaments and biological substances; Z79.899 Other long term (current) drug therapy; Z90.49 Acquired absence of other specified parts of digestive tract
CPT/HCPCS: 99284; A9270; J2550

== ENCOUNTER 2017-03-22 10:33 | Emergency (ER) | payer BC, MEDICARE ==
[2017-03-22] MEDS ORDERED: HYDROmorphone 1 MG/ML Syringe IM ONE (11:19)
[2017-03-22] MEDS ORDERED: Metoclopramide 10 MG/2 ML SDV IM ONE (11:19)
--- NOTE | 2017-03-22 12:44 | EDM.PDOC ---
ED HPI GI/ABDOMINAL - General Chief Complaint: Abdominal Pain Stated Complaint: Abdominal pain Time Seen by Provider: 03/22/17 11:10 Source of Information: Reports: Patient, RN notes reviewed History Limitations: Reports: No limitations - History of Present Illness INITIAL COMMENTS - FREE TEXT/NARRATIVE: 41 year old female presents to the ED with complaints of epigastric pain, radiating to her back, nausea and vomiting. This is a chronic problem for her. She has a diagnosis of chronic pancreatitis and is seeing specialists at the [facility]. She has an upcoming appointment the end of this month. She tried taking an oxycodone for pain but vomited it up. She was able to keep down her Zofran 4mg however. She says her epigastric pain is fairly constant around a 3 or 4/10 most days. Today, her pain became more severe and she now rates it an 8/10. She reports a fever of 101. She also has had a few loose stools today which are typical of her pancreatitis flares. Her PCP is Rik ALBARRAN. - Related Data Allergies/ADRs: Allergies Allergy/AdvReac Type Severity Reaction Status Date / Time ketorolac [From Toradol] Allergy Bleeding Verified 03/22/17 10:51 metoclopramide HCl Allergy Itching Verified 03/22/17 10:51 [From Reglan] buprenorphine [From Butrans] AdvReac Other Verified 03/22/17 10:51 ketorolac tromethamine AdvReac Stomach Verified 03/22/17 10:51 [From Toradol] Upset prochlorperazine AdvReac Vomiting Verified 03/22/17 10:51 [From Compazine] Home Meds: Home Meds Sertraline [Zoloft] 100 mg PO DAILY 12/15/16 [History] Levothyroxine Sodium [Synthroid] 200 mcg PO DAILY 01/13/17 [History] ALPRAZolam [Alprazolam] 1 tab PO TID PRN 01/18/17 [History] Ondansetron HCl [Zofran] 4 mg PO Q6H PRN 01/18/17 [History] oxyCODONE HCl/Acetaminophen [oxyCODONE-Acetaminophen 5-325] 2 tab PO Q6H PRN 06/01 [History] Past Medical History - Past Health History Medical/Surgical History: Denies Medical/Surgical History HEENT History: Reports: Glaucoma Other Respiratory History: cough RLQ Gastrointestinal History: Reports: Pancreatitis, Other (see below) Other Gastrointestinal History: chronic pancreatitis, fatty pancreas Other OB/BYN History: c section x3, tubes tied Musculoskeletal History: Reports: Arthritis Neurological History: 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 (see below) Other Neuro History: pseudotumor, shunt Psychiatric History: Reports: Addiction, Anxiety, Emotional problems Endocrine/Metabolic History: Reports: Hypothyroidism - Past Surgical History GI Surgical History: Reports: Appendectomy, Bariatric procedure, Cholecystectomy , ERCP Female Surgical History: Reports: section, Tubal ligation Social & Family History - Family History Family Medical History: Noncontributory Cardiac: Reports: Bypass, Hypertension, [place] Respiratory: Reports: Asthma Oncologic: Reports: Colon - Tobacco Use Smoking Status *Q: Never Smoker Packs/Tins Daily: 1 Used Tobacco, but Quit: Yes Month Tobacco Last Used: 23 years Second Hand Smoke Exposure: No - Caffeine Use Caffeine Use: Reports: None - Alcohol Use Days Per Week of Alcohol Use: 0 - Recreational Drug Use Recreational Drug Use: No Drug Use in Last 12 Months: No - Living Situation & Occupation Living situation: Reports: , with spouse Occupation: unemployed ED ROS GENERAL - Review of Systems Review Of Systems: See Below Constitutional: Reports: fever. Denies: chills Respiratory: Reports: No Symptoms. Denies: Shortness of Breath Cardiovascular: Reports: No symptoms. Denies: Chest pain GI/Abdominal: Reports: Abdominal pain, Diarrhea, Nausea ED EXAM, GI/ABD - Physical Exam Exam: See Below Exam Limited By: No limitations General Appearance: alert, WD/WN, no apparent distress Respiratory/Chest: no respiratory distress, lungs clear, normal breath sounds Cardiovascular: regular rate, rhythm GI/Abdominal: normal bowel sounds, soft, no organomegaly, no distention, tenderness (epigastric). No: guarding, rebound, rigidity Neurological: alert, oriented, normal cognition Course - Vital Signs Last Recorded V/S: Last Vital Signs Temp 97.8 F 03/22/17 10:47 Pulse 59 L 03/22/17 11:54 Resp 18 03/22/17 11:54 BP 129/94 H 03/22/17 11:54 Pulse Ox 100 03/22/17 11:54 - Orders/Labs/Meds Labs: Laboratory Tests 03/22/17 03/22/17 Range/Units 11:32 11:32 WBC 9.05 (3.98-10.04) K/mm3 RBC 3.54 L (3.98-5.22) M/mm3 Hgb 10.6 L (11.2-15.7) gm/L Hct 32.6 L (34.1-44.9) % MCV 92.1 (79.4-94.8) fl MCH 29.9 (25.6-32.2) pg MCHC 32.5 (32.2-35.5) g/dl RDW Std Deviation 51.0 H (36.4-46.3) fL Plt Count 334 (182-369) K/mm3 MPV 10.1 (9.4-12.3) fl Neut % (Auto) 57.7 (34.0-71.1) % Lymph % (Auto) 32.9 (19.3-51.7) % [place] % (Auto) 7.7 (4.7-12.5) % Eos % (Auto) 1.2 (0.7-5.8) Baso % (Auto) 0.3 (0.1-1.2) % Neut # (Auto) 5.21 (1.56-6.13) K/mm3 Lymph # (Auto) 2.98 (1.18-3.74) K/mm3 [place] # (Auto) 0.70 H (0.24-0.36) K/mm3 Eos # (Auto) 0.11 (0.04-0.36) K/mm3 Baso # (Auto) 0.03 (0.01-0.08) K/mm3 Sodium 142 (136-145) mEq/L Potassium 3.9 (3.5-5.1) mEq/L Chloride 104 (98-107) mEq/L Carbon Dioxide 27 (21-32) mEq/L Anion Gap 14.9 (5-15) BUN 11 (7-18) mg/dL Creatinine 0.9 (0.55-1.02) mg/dL Est Cr Clr Drug Dosing TNP Estimated GFR (MDRD) > 60 (>60) mL/min BUN/Creatinine Ratio 12.2 L (14-18) Glucose 96 (74-106) mg/dL Calcium 8.9 (8.5-10.1) mg/dL Total Bilirubin 0.3 (0.2-1.0) mg/dL AST 31 (15-37) U/L ALT 22 (14-59) U/L Alkaline Phosphatase 65 (46-116) U/L Total Protein 7.8 (6.4-8.2) g/dl Albumin 3.6 (3.4-5.0) g/dl Globulin 4.2 gm/dL Albumin/Globulin Ratio 0.9 L (1-2) Lipase 434 H (73-393) U/L Meds: Medications Discontinued Medications Generic Name Dose Route Start Last Admin Trade Name Freq PRN Reason Stop Dose Admin Hydromorphone HCl 1 mg 03/22/17 11:19 03/22/17 11:52 Dilaudid IM 03/22/17 11:20 1 mg ONETIME ONE Administration Metoclopramide HCl 10 mg 03/22/17 11:19 03/22/17 11:50 Reglan IM 03/22/17 11:20 10 mg ONETIME ONE Administration - Re-Assessments/Exams Free Text/Narrative Re-Assessment/Exam: CBC and CMP are normal. Lipase is mildly elevated at 434 and is actually improved from her last ED visit. She was treated with Reglan and Dilaudid. She is feeling much better. Will discharge home to f/u with her primary care provider and specialists. Departure - Departure Time of Disposition: 12:43 Disposition: Home, Self-Care 01 Condition: good Clinical Impression: Chronic recurrent pancreatitis Instructions: Acute Pancreatitis, [id number] Referrals: Rell Geronimo MD [Primary Care Provider] - Forms: ED Department Discharge Additional Instructions: Follow-up with Rik Walls this week Follow-up with your specialists as scheduled Return to Er with worsening of symptoms Continue your current medications as prescribed for pain and nausea.
[2017-03-22 12:56] VITALS: BP 136/110
== END 2017-03-22 12:55 | disposition home or self-care (01) ==
LOC: JD.ED 10:33
DX: K86.1 Other chronic pancreatitis (principal); F41.9 Anxiety disorder, unspecified; M19.90 Unspecified osteoarthritis, unspecified site; E03.9 Hypothyroidism, unspecified; Z90.49 Acquired absence of other specified parts of digestive tract; Z88.8 Allergy status to other drugs, medicaments and biological substances; Z79.899 Other long term (current) drug therapy; Z98.51 Tubal ligation status; Z98.84 Bariatric surgery status
CPT/HCPCS: 36415; 80053; 83690; 85025; 96372; 99284; J1170; J2765

== ENCOUNTER 2017-03-27 11:19 | Emergency (ER) | payer BC, MEDICARE ==
[2017-03-27 11:34] VITALS: BP 121/88
[2017-03-27] MEDS ORDERED: Sodium Chloride 0.9% 10 ML Syringe FLUSH PRN (11:56)
--- NOTE | 2017-03-27 11:59 | EDM.PDOC ---
ED HPI GENERAL MEDICAL PROBLEM - General Chief Complaint: Abdominal Pain Stated Complaint: POSS PANCREATITIS Time Seen by Provider: 03/27/17 11:37 Source of Information: Reports: Patient History Limitations: Reports: No Limitations - History of Present Illness INITIAL COMMENTS - FREE TEXT/NARRATIVE: patient is a 41-year-old female who is well known to the ED presents to the ED complaining of upper abdominal pain that radiates to her back. States this started at approximately 0800 hrs this morning and has progressively gotten worse. She is nauseated but has had no emesis. States she has history of pancreatitis. She has taken oxycodone 6:30 this morning with minimal relief. She was seen by a provider at [facility] March 2017 with a lipase of 104. Upper limits of normal for that lab was 60. She is seeing a specialist at [facility] for chronic pancreatitis April 09, 2017 to obtain a biopsy and have EUS/ERCP. Pending results of biopsy she may need surgery. She has taken Zofran twice todaywith minimal relief.states discomfort is mildly increased with food. She's had a decrease in appetite noted. She denies any fever/chills, vomiting, chest pain, shortness of breath, diarrhea, blood in her stool, pain with urination, or any additional complaints. 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: 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 (see below) (see history of present illness) Upper Abdomen Pain Score (Numeric/FACES): 7 - Related Data Allergies Allergy/AdvReac Type Severity Reaction Status Date / Time ketorolac [From Toradol] Allergy Bleeding Verified 03/27/17 11:33 metoclopramide HCl Allergy Itching Verified 03/27/17 11:33 [From Reglan] buprenorphine [From Butrans] AdvReac Other Verified 03/27/17 11:33 ketorolac tromethamine AdvReac Stomach Verified 03/27/17 11:33 [From Toradol] Upset prochlorperazine AdvReac Vomiting Verified 03/27/17 11:33 [From Compazine] Home Meds: Home Meds Sertraline [Zoloft] 100 mg PO DAILY 12/15/16 [History] Levothyroxine Sodium [Synthroid] 200 mcg PO DAILY 01/13/17 [History] ALPRAZolam [Alprazolam] 1 tab PO TID PRN 01/18/17 [History] Ondansetron HCl [Zofran] 4 mg PO Q6H PRN 01/18/17 [History] oxyCODONE HCl/Acetaminophen [oxyCODONE-Acetaminophen 5-325] 2 tab PO Q6H PRN 06/01 [History] Past Medical History - Past Health History Medical/Surgical History: Denies Medical/Surgical History HEENT History: Reports: Glaucoma Other Respiratory History: cough RLQ Gastrointestinal History: Reports: Pancreatitis, Other (See Below) Other Gastrointestinal History: chronic pancreatitis, fatty pancreas Other OB/BYN History: c section x3, tubes tied Musculoskeletal History: Reports: Arthritis Neurological History: 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 (See Below) Other Neuro History: pseudotumor, shunt Psychiatric History: Reports: Addiction, Anxiety, Emotional Problems Endocrine/Metabolic History: Reports: Hypothyroidism - Past Surgical History Female Surgical History: Reports: Section, Tubal Ligation Social & Family History - Family History Family Medical History: Noncontributory Cardiac: Reports: Bypass, Hypertension, [place] Respiratory: Reports: Asthma Oncologic: Reports: Colon - Tobacco Use Smoking Status *Q: Never Smoker Packs/Tins Daily: 1 Used Tobacco, but Quit: Yes Month Tobacco Last Used: 23 years Second Hand Smoke Exposure: No - Caffeine Use Caffeine Use: Reports: None - Alcohol Use Days Per Week of Alcohol Use: 0 - Recreational Drug Use Recreational Drug Use: No Drug Use in Last 12 Months: No - Living Situation & Occupation Living situation: Reports: , with Spouse Occupation: Unemployed ED ROS GENERAL - Review of Systems Review Of Systems: See Below Constitutional: Reports: Decreased Appetite. Denies: Fever, Chills HEENT: Reports: No Symptoms Respiratory: Reports: No Symptoms Cardiovascular: Reports: No Symptoms GI/Abdominal: Reports: Abdominal Pain, Decreased Appetite, Nausea. Denies: Black Stool, Bloody Stool, Hematemesis, Vomiting : Reports: No Symptoms Musculoskeletal: Reports: Back Pain Neurological: Denies: Dizziness ED EXAM, GI/ABD - Physical Exam Exam: See Below Exam Limited By: No Limitations General Appearance: Alert, WD/WN, No Apparent Distress Ears: Hearing Grossly Normal Nose: Normal Inspection Throat/Mouth: Normal Voice, No Airway Compromise Neck: Normal Inspection, Supple Respiratory/Chest: No Respiratory Distress, Lungs Clear, Normal Breath Sounds, No Accessory Muscle Use, Chest Non-Tender Cardiovascular: Normal Peripheral Pulses, Regular Rate, Rhythm GI/Abdominal: Normal Bowel Sounds, Soft, Non-Tender, No Organomegaly, No Distention, No Abnormal Bruit, No Mass Back Exam: Normal Inspection. No: CVA Tenderness (L), CVA Tenderness (R), Muscle Spasm, Paraspinal Tenderness, Vertebral Tenderness Neurological: Alert, Oriented, CN II-XII Intact, Normal Cognition, No Motor/ Sensory Deficits Psychiatric: Normal Affect, Normal Mood Skin Exam: Warm, Dry, Intact, Normal Color Course - Vital Signs Last Recorded V/S: Last Vital Signs Temp 97 F 03/27/17 11:30 Pulse 64 03/27/17 11:30 Resp 16 03/27/17 11:30 BP 121/88 03/27/17 11:34 Pulse Ox 100 03/27/17 11:30 - Orders/Labs/Meds Meds: Medications Discontinued Medications Generic Name Dose Route Start Last Admin Trade Name Freq PRN Reason Stop Dose Admin Sodium Chloride 10 ml 03/27/17 11:56 Saline Flush FLUSH ASDIRECTED PRN Keep Vein Open - Re-Assessments/Exams Free Text/Narrative Re-Assessment/Exam: Ordered IV with NS along with set of labs to further evaluate for pancreatitis. I informed patient that I had spoken with Dr. Sharp in relation to patients current complaint. Both patient and became irritated and wished to sign out AMA. We offered to obtain labs prior to leaving to which they refused. Patient signed out AMA. Departure - Departure Time of Disposition: 12:06 Disposition: Against Medical Advice 07 Condition: good Clinical Impression: Drug-seeking behavior, Abdominal pain of unknown etiology - Discharge Information Referrals: Rik Walls PA-C [Primary Care Provider] - Forms: ED Department Discharge
== END 2017-03-27 12:06 | disposition left against medical advice (07) ==
LOC: JD.ED 11:19
DX: R10.9 Unspecified abdominal pain (principal); Z76.5 Malingerer [conscious simulation]; F41.9 Anxiety disorder, unspecified; E03.9 Hypothyroidism, unspecified; Z87.891 Personal history of nicotine dependence; Z79.899 Other long term (current) drug therapy; Z88.6 Allergy status to analgesic agent; Z88.8 Allergy status to other drugs, medicaments and biological substances
CPT/HCPCS: 99282; 99284

== ENCOUNTER 2017-04-17 17:04 | Emergency (ER) | payer BC, MEDICARE ==
[2017-04-17 17:21] VITALS: BP 132/86
[2017-04-17] MEDS ORDERED: Ondansetron 4 MG Tab.DIS PO ONE (17:39)
[2017-04-17] MEDS ORDERED: HYDROmorphone 1 MG/ML Syringe IM ONE (17:40)
--- NOTE | 2017-04-17 18:43 | EDM.PDOC ---
ED HPI GENERAL MEDICAL PROBLEM - General Chief Complaint: Abdominal Pain Stated Complaint: PANCREATITIS FLARE UP Time Seen by Provider: 04/17/17 17:27 Source of Information: Reports: Patient History Limitations: Reports: No Limitations - History of Present Illness INITIAL COMMENTS - FREE TEXT/NARRATIVE: The patient has a history of chronic pancreatitis. She has been seen at the [facility] and she had an ERCP with biopsy last week on the 09 of April. She was doing good for a few days until last night she developed pain in the RUQ. She also had nausea and vomiting. She vomited twice. Onset: Gradual Duration: Day(s): (Last night) Location: Reports: Abdomen Quality: Reports: Sharp Severity: Severe Improves with: Reports: None Worsens with: Reports: None Associated Symptoms: Reports: No Other Symptoms Left Abdomen Pain Score (Numeric/FACES): 8 - Related Data Allergies Allergy/AdvReac Type Severity Reaction Status Date / Time ketorolac [From Toradol] Allergy Bleeding Verified 04/17/17 17:21 metoclopramide HCl Allergy Itching Verified 04/17/17 17:21 [From Reglan] buprenorphine [From Butrans] AdvReac Other Verified 04/17/17 17:21 ketorolac tromethamine AdvReac Stomach Verified 04/17/17 17:21 [From Toradol] Upset prochlorperazine AdvReac Vomiting Verified 04/17/17 17:21 [From Compazine] Home Meds: Home Meds Sertraline [Zoloft] 100 mg PO DAILY 12/15/16 [History] Levothyroxine Sodium [Synthroid] 200 mcg PO DAILY 01/13/17 [History] ALPRAZolam [Alprazolam] 1 tab PO TID PRN 01/18/17 [History] Ondansetron HCl [Zofran] 4 mg PO Q6H PRN 01/18/17 [History] Hydrocodone/Acetaminophen [Hydrocodon-Acetaminophen 5-325] 1 - 2 each PO Q6HR PRN #15 tablet 04/17/17 [Rx] Past Medical History - Past Health History Medical/Surgical History: Denies Medical/Surgical History HEENT History: Reports: Glaucoma Other Respiratory History: cough RLQ Gastrointestinal History: Reports: Pancreatitis, Other (See Below) Other Gastrointestinal History: chronic pancreatitis, fatty pancreas Other OB/BYN History: c section x3, tubes tied Musculoskeletal History: Reports: Arthritis Neurological History: 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 (See Below) Other Neuro History: pseudotumor, shunt Psychiatric History: Reports: Addiction, Anxiety, Emotional Problems Endocrine/Metabolic History: Reports: Hypothyroidism - Past Surgical History HEENT Surgical History: Reports: Oral Surgery GI Surgical History: Reports: Appendectomy, Bariatric Procedure, Cholecystectomy , ERCP Female Surgical History: Reports: Section, Tubal Ligation Social & Family History - Family History Family Medical History: Noncontributory Cardiac: Reports: Bypass, Hypertension, [place] Respiratory: Reports: Asthma Oncologic: Reports: Colon - Tobacco Use Smoking Status *Q: Never Smoker Packs/Tins Daily: 1 Used Tobacco, but Quit: Yes Month Tobacco Last Used: 23 years Second Hand Smoke Exposure: No - Caffeine Use Caffeine Use: Reports: None - Alcohol Use Days Per Week of Alcohol Use: 0 - Recreational Drug Use Recreational Drug Use: No Drug Use in Last 12 Months: No - Living Situation & Occupation Living situation: Reports: , with Spouse Occupation: Unemployed ED ROS GENERAL - Review of Systems Review Of Systems: See Below Constitutional: Reports: No Symptoms HEENT: Reports: No Symptoms Respiratory: Reports: No Symptoms Cardiovascular: Reports: No Symptoms Endocrine: Reports: No Symptoms GI/Abdominal: Reports: Abdominal Pain, Nausea, Vomiting : Reports: No Symptoms Musculoskeletal: Reports: No Symptoms ED EXAM, GI/ABD - Physical Exam Exam: See Below Exam Limited By: No Limitations General Appearance: Alert, No Apparent Distress Ears: Normal External Exam Nose: Normal Inspection Head: Atraumatic, Normocephalic Neck: Normal Inspection Respiratory/Chest: No Respiratory Distress, Lungs Clear, Normal Breath Sounds Cardiovascular: Regular Rate, Rhythm, No Edema, No Murmur GI/Abdominal: Soft, No Organomegaly, No Mass, Tenderness (Moderate to the right upper quadrant and epigastric area) Back Exam: Normal Inspection Course - Vital Signs Last Recorded V/S: Last Vital Signs Temp 98.1 F 04/17/17 17:11 Pulse 75 04/17/17 17:11 Resp 13 04/17/17 17:11 BP 132/86 04/17/17 17:11 Pulse Ox 100 04/17/17 17:11 - Orders/Labs/Meds Orders: Active Orders 24 hr Category Date Time Status Abdomen Series w Chest 1V [CR] Stat Exams 04/17/17 17:38 Taken Labs: Laboratory Tests 04/17/17 04/17/17 04/17/17 Range/Units 17:38 18:00 18:00 WBC 7.48 (3.98-10.04) K/mm3 RBC 3.65 L (3.98-5.22) M/mm3 Hgb 10.7 L (11.2-15.7) gm/L Hct 33.5 L (34.1-44.9) % MCV 91.8 (79.4-94.8) fl MCH 29.3 (25.6-32.2) pg MCHC 31.9 L (32.2-35.5) g/dl RDW Std Deviation 49.3 H (36.4-46.3) fL Plt Count 263 (182-369) K/mm3 MPV 9.9 (9.4-12.3) fl Neut % (Auto) 56.6 (34.0-71.1) % Lymph % (Auto) 32.1 (19.3-51.7) % [place] % (Auto) 8.2 (4.7-12.5) % Eos % (Auto) 2.7 (0.7-5.8) Baso % (Auto) 0.4 (0.1-1.2) % Neut # (Auto) 4.24 (1.56-6.13) K/mm3 Lymph # (Auto) 2.40 (1.18-3.74) K/mm3 [place] # (Auto) 0.61 H (0.24-0.36) K/mm3 Eos # (Auto) 0.20 (0.04-0.36) K/mm3 Baso # (Auto) 0.03 (0.01-0.08) K/mm3 Sodium 141 (136-145) mEq/L Potassium 4.0 (3.5-5.1) mEq/L Chloride 105 (98-107) mEq/L Carbon Dioxide 25 (21-32) mEq/L Anion Gap 15.0 (5-15) BUN 7 (7-18) mg/dL Creatinine 0.8 (0.55-1.02) mg/dL Est Cr Clr Drug Dosing 99.06 mL/min Estimated GFR (MDRD) > 60 (>60) mL/min BUN/Creatinine Ratio 8.8 L (14-18) Glucose 91 (74-106) mg/dL Calcium 8.9 (8.5-10.1) mg/dL Total Bilirubin 0.4 (0.2-1.0) mg/dL AST 23 (15-37) U/L ALT 19 (14-59) U/L Alkaline Phosphatase 81 (46-116) U/L Total Protein 8.2 (6.4-8.2) g/dl Albumin 3.6 (3.4-5.0) g/dl Globulin 4.6 gm/dL Albumin/Globulin Ratio 0.8 L (1-2) Amylase 43 (25-115) U/L Lipase 195 (73-393) U/L HCG, Qual Negative (NEGATIVE) Meds: Medications Discontinued Medications Generic Name Dose Route Start Last Admin Trade Name Freq PRN Reason Stop Dose Admin Hydromorphone HCl 1 mg 04/17/17 17:40 04/17/17 17:46 Dilaudid IM 04/17/17 17:41 1 mg ONETIME ONE Administration Ondansetron HCl 4 mg 04/17/17 17:39 04/17/17 17:46 Zofran Odt PO 04/17/17 17:40 4 mg ONETIME ONE Administration - Re-Assessments/Exams Free Text/Narrative Re-Assessment/Exam: 04/17/17 19:10 Her abdominal x-ray does not show free air or signs of obstruction. The stent is visible. Her labs all look good. I will give her something for pain. Departure - Departure Time of Disposition: 19:15 Disposition: Home, Self-Care 01 Condition: good Clinical Impression: Abdominal pain Nausea & vomiting Qualifiers: Vomiting type: unspecified Vomiting Intractability: non-intractable Qualified Code(s): R11.2 - Nausea with vomiting, unspecified - Discharge Information Prescriptions: Hydrocodone/Acetaminophen [Hydrocodon-Acetaminophen 5-325] 1 - 2 each PO Q6HR PRN #15 tablet PRN Reason: Pain Referrals: Rik Walls PA-C [Primary Care Provider] - Forms: ED Department Discharge Additional Instructions: Take your medication as prescribed. Follow up with your doctor. - My Orders Last 24 Hours: My Active Orders 04/17/17 17:38 Abdomen Series w Chest 1V [CR] Stat - Assessment/Plan Last 24 Hours: My Active Orders 04/17/17 17:38 Abdomen Series w Chest 1V [CR] Stat
--- NOTE | 2017-04-18 12:55 | CR ---
Abdomen: Supine and upright views of the abdomen were obtained. Comparison: Previous CT abdomen and pelvis exam of 01/14/17 and abdominal x-ray of 09/01/16. Surgical clip is noted within the upper right abdomen. Surgical anastomotic sutures are seen within the left abdomen. Numerous small catheters are seen which appear to be stable. There is partial pigtail catheter within the upper right pelvis which is an interval change from prior exam. Several slightly prominent gas-filled loops of small bowel are noted within the left abdomen with air-fluid levels. Several air-fluid levels are seen within bowel within the right abdomen. Scattered gas within colon is seen which appears within normal limits. No abnormal calcifications are seen. Impression: 1. Slightly prominent small bowel gas with air-fluid levels. Findings could represent a mild ileus but difficult to exclude developing partial small bowel obstruction. Please correlate with the patient's symptoms. 2. Interval pigtail catheter seen within the right abdomen from prior exam. 3. Other portions of the abdominal x-ray are stable. Diagnostic code #3
== END 2017-04-17 19:26 | disposition home or self-care (01) ==
LOC: JD.ED 17:04
DX: R11.2 Nausea with vomiting, unspecified (principal); R10.11 Right upper quadrant pain; R10.13 Epigastric pain; M19.90 Unspecified osteoarthritis, unspecified site; F41.9 Anxiety disorder, unspecified; E03.9 Hypothyroidism, unspecified; Z90.49 Acquired absence of other specified parts of digestive tract; Z98.84 Bariatric surgery status; Z98.890 Other specified postprocedural states; Z79.899 Other long term (current) drug therapy; Z88.6 Allergy status to analgesic agent; Z88.8 Allergy status to other drugs, medicaments and biological substances
CPT/HCPCS: 36415; 74022; 80053; 82150; 83690; 84703; 85025; 96372; 99284; A9270; J1170; 99283

== ENCOUNTER 2017-04-22 07:17 | Emergency (ER) | payer BC, MEDICARE ==
[2017-04-22] MEDS ORDERED: Ondansetron 4 MG Tab.DIS PO ONE (08:03)
[2017-04-22] MEDS ORDERED: HYDROmorphone 1 MG/ML Syringe IM ONE ×2 (08:03→09:48)
[2017-04-22] MEDS ORDERED: Ondansetron 4 MG Tab.DIS ONE (08:35)
--- NOTE | 2017-04-22 08:53 | CR ---
Abdominal series: Supine and upright views of the abdomen were obtained as well as frontal view of the chest. Comparison: Previous abdominal series of 04/17/17. Heart size and mediastinum are normal. Lungs are clear. Mild scoliosis is seen within the spine with scattered degenerative spurring. Surgical clip is noted within the upper right abdomen most likely due to previous cholecystectomy. There is a pigtail stent being seen within the right pelvis which has changed in orientation from prior study and presumably is within bowel. Catheter also seen within the left abdomen overlying the spine. Surgical anastomotic sutures are seen within the left upper abdomen. Bowel gas pattern is normal. Impression: 1. Changing position of pigtail stent within the right pelvis. This presumably is within bowel. 2. Previous abdominal surgery. No additional abnormality is seen. Diagnostic code #3
--- NOTE | 2017-04-22 09:29 | EDM.PDOC ---
ED HPI GENERAL MEDICAL PROBLEM - General Chief Complaint: Abdominal Pain Stated Complaint: PANCREATITIS Time Seen by Provider: 04/22/17 07:28 Source of Information: Reports: Patient History Limitations: Reports: No Limitations - History of Present Illness INITIAL COMMENTS - FREE TEXT/NARRATIVE: The patient presents with upper abdominal pain, nausea and vomiting. She has chronic pancreatitis. She recently was at the [facility] and had a stent placed in her pancreas and they did biopsies. She has not been given results yet. She was last seen here 5 days ago for the same. Labs and x-ray looked good. He has no fever, chills, cough, chest pain or shortness of breath. She called the [facility] and they recommended coming there or the ER here. This has been going on for about 2 days. Onset: Gradual Duration: Day(s): (2) Location: Reports: Abdomen (Upper) Quality: Reports: Sharp Severity: Severe Improves with: Reports: None Worsens with: Reports: None Associated Symptoms: Reports: Nausea/Vomiting. Denies: Chest Pain, Cough, Fever /Chills Left Abdomen Pain Score (Numeric/FACES): 7 - Related Data Allergies Allergy/AdvReac Type Severity Reaction Status Date / Time ketorolac [From Toradol] Allergy Bleeding Verified 04/22/17 07:23 metoclopramide HCl Allergy Itching Verified 04/22/17 07:23 [From Reglan] buprenorphine [From Butrans] AdvReac Other Verified 04/22/17 07:23 ketorolac tromethamine AdvReac Stomach Verified 04/22/17 07:23 [From Toradol] Upset prochlorperazine AdvReac Vomiting Verified 04/22/17 07:23 [From Compazine] Home Meds: Home Meds Sertraline [Zoloft] 100 mg PO DAILY 12/15/16 [History] Levothyroxine Sodium [Synthroid] 200 mcg PO DAILY 01/13/17 [History] ALPRAZolam [Alprazolam] 1 mg PO TID PRN 01/18/17 [History] Ondansetron HCl [Zofran] 4 mg PO Q6H PRN 01/18/17 [History] Past Medical History - Past Health History Medical/Surgical History: Denies Medical/Surgical History HEENT History: Reports: Glaucoma Other Respiratory History: cough RLQ Gastrointestinal History: Reports: Pancreatitis, Other (See Below) Other Gastrointestinal History: chronic pancreatitis, fatty pancreas Other OB/BYN History: c section x3, tubes tied Musculoskeletal History: Reports: Arthritis Neurological History: Reports: TIA, Other (See Below) Other Neuro History: pseudotumor, shunt Psychiatric History: Reports: Addiction, Anxiety, Emotional Problems Endocrine/Metabolic History: Reports: Hypothyroidism - Infectious Disease History Infectious Disease History: Reports: C-Difficile - Past Surgical History HEENT Surgical History: Reports: Oral Surgery GI Surgical History: Reports: Appendectomy, Bariatric Procedure, Cholecystectomy , ERCP Female Surgical History: Reports: Section, Tubal Ligation Social & Family History - Family History Family Medical History: Noncontributory Cardiac: Reports: Bypass, Hypertension, [place] Respiratory: Reports: Asthma Oncologic: Reports: Colon - Tobacco Use Smoking Status *Q: Never Smoker Packs/Tins Daily: 1 Used Tobacco, but Quit: Yes Month Tobacco Last Used: 23 years Second Hand Smoke Exposure: No - Caffeine Use Caffeine Use: Reports: None - Alcohol Use Days Per Week of Alcohol Use: 0 - Recreational Drug Use Recreational Drug Use: No Drug Use in Last 12 Months: No - Living Situation & Occupation Living situation: Reports: , with Spouse Occupation: Unemployed ED ROS GENERAL - Review of Systems Review Of Systems: See Below Constitutional: Reports: No Symptoms HEENT: Reports: No Symptoms Respiratory: Reports: No Symptoms Cardiovascular: Reports: No Symptoms Endocrine: Reports: No Symptoms GI/Abdominal: Reports: Abdominal Pain, Nausea, Vomiting. Denies: Diarrhea : Reports: No Symptoms Musculoskeletal: Reports: No Symptoms Skin: Reports: No Symptoms Neurological: Reports: No Symptoms ED EXAM, GI/ABD - Physical Exam Exam: See Below Exam Limited By: No Limitations General Appearance: Alert, No Apparent Distress Ears: Normal External Exam Nose: Normal Inspection Head: Atraumatic, Normocephalic Neck: Normal Inspection Respiratory/Chest: No Respiratory Distress, Lungs Clear, Normal Breath Sounds Cardiovascular: Regular Rate, Rhythm, No Edema, No Murmur GI/Abdominal: Soft, No Organomegaly, No Mass, Tenderness (Modetate pain to the epigastric region) Course - Vital Signs Last Recorded V/S: Last Vital Signs Temp 97.2 F 04/22/17 07:20 Pulse 94 04/22/17 07:20 Resp 18 04/22/17 07:20 BP 144/104 H 04/22/17 07:20 Pulse Ox 98 04/22/17 07:20 - Orders/Labs/Meds Orders: Active Orders 24 hr Category Date Time Status HYDROmorphone [Dilaudid] Med 04/22/17 09:48 Once 1 mg IM ONETIME ONE Labs: Laboratory Tests 04/22/17 04/22/17 Range/Units 08:34 08:34 WBC 8.51 (3.98-10.04) K/mm3 RBC 3.90 L (3.98-5.22) M/mm3 Hgb 11.5 (11.2-15.7) gm/L Hct 36.2 (34.1-44.9) % MCV 92.8 (79.4-94.8) fl MCH 29.5 (25.6-32.2) pg MCHC 31.8 L (32.2-35.5) g/dl RDW Std Deviation 50.3 H (36.4-46.3) fL Plt Count 331 (182-369) K/mm3 MPV 10.0 (9.4-12.3) fl Neut % (Auto) 49.5 (34.0-71.1) % Lymph % (Auto) 40.1 (19.3-51.7) % [place] % (Auto) 8.5 (4.7-12.5) % Eos % (Auto) 1.3 (0.7-5.8) Baso % (Auto) 0.5 (0.1-1.2) % Neut # (Auto) 4.22 (1.56-6.13) K/mm3 Lymph # (Auto) 3.41 (1.18-3.74) K/mm3 [place] # (Auto) 0.72 H (0.24-0.36) K/mm3 Eos # (Auto) 0.11 (0.04-0.36) K/mm3 Baso # (Auto) 0.04 (0.01-0.08) K/mm3 Sodium 145 (136-145) mEq/L Potassium 3.4 L (3.5-5.1) mEq/L Chloride 106 (98-107) mEq/L Carbon Dioxide 26 (21-32) mEq/L Anion Gap 16.4 H (5-15) BUN 12 (7-18) mg/dL Creatinine 1.0 (0.55-1.02) mg/dL Est Cr Clr Drug Dosing TNP Estimated GFR (MDRD) > 60 (>60) mL/min BUN/Creatinine Ratio 12.0 L (14-18) Glucose 98 (74-106) mg/dL Calcium 9.7 (8.5-10.1) mg/dL Total Bilirubin 0.5 (0.2-1.0) mg/dL AST 20 (15-37) U/L ALT 18 (14-59) U/L Alkaline Phosphatase 77 (46-116) U/L Total Protein 9.1 H (6.4-8.2) g/dl Albumin 4.2 (3.4-5.0) g/dl Globulin 4.9 gm/dL Albumin/Globulin Ratio 0.9 L (1-2) Amylase 70 (25-115) U/L Lipase 561 H (73-393) U/L Meds: Medications Discontinued Medications Generic Name Dose Route Start Last Admin Trade Name Freq PRN Reason Stop Dose Admin Hydromorphone HCl 1 mg 04/22/17 08:03 04/22/17 08:25 Dilaudid IM 04/22/17 08:04 1 mg ONETIME ONE Administration Ondansetron HCl 4 mg 04/22/17 08:03 04/22/17 08:25 Zofran Odt PO 04/22/17 08:04 4 mg ONETIME ONE Administration Ondansetron HCl Confirm 04/22/17 08:35 Zofran Odt Administered 04/22/17 08:36 Dose 4 mg .ROUTE .STK-MED ONE - Re-Assessments/Exams Free Text/Narrative Re-Assessment/Exam: 04/22/17 09:28 I ordered labs and an x-ray of her abdomen, zofran and dilaudid. 04/22/17 09:49 Her CBC is negative. Her K is a little low at 3.4. Her lipase is elevated at 561. Her x-ray shows changing position of pigtail stent within the right pelvis. This presumably is within bowel. Previous abdominal surgery. I feel the stent has moved. She has pancreatitis again. I will give her another shot of dilaudid 1g IM and something more for pain. She will call her doctor and get back in with him. Departure - Departure Time of Disposition: 10:00 Disposition: Home, Self-Care 01 Condition: good Clinical Impression: Abdominal pain Chronic pancreatitis Qualifiers: Pancreatitis type: unspecified pancreatitis type Qualified Code(s): K86.1 - Other chronic pancreatitis - Discharge Information Referrals: Rik Walls PA-C [Primary Care Provider] - Forms: ED Department Discharge Additional Instructions: Take your medications as prescribed. Call your doctor and see if you can get back in. I feel the stent did come out. - My Orders Last 24 Hours: My Active Orders 04/22/17 09:48 HYDROmorphone [Dilaudid] 1 mg IM ONETIME ONE - Assessment/Plan Last 24 Hours: My Active Orders 04/22/17 09:48 HYDROmorphone [Dilaudid] 1 mg IM ONETIME ONE
[2017-04-22 10:10] VITALS: BP 103/89
== END 2017-04-22 10:20 | disposition home or self-care (01) ==
LOC: JD.ED 07:17
DX: K86.1 Other chronic pancreatitis (principal); M19.90 Unspecified osteoarthritis, unspecified site; F41.9 Anxiety disorder, unspecified; E03.9 Hypothyroidism, unspecified; Z98.84 Bariatric surgery status; Z90.49 Acquired absence of other specified parts of digestive tract; Z98.51 Tubal ligation status; Z79.899 Other long term (current) drug therapy; Z86.73 Personal history of transient ischemic attack (TIA), and cerebral infarction without residual deficits; Z87.891 Personal history of nicotine dependence; Z88.6 Allergy status to analgesic agent; Z88.8 Allergy status to other drugs, medicaments and biological substances
CPT/HCPCS: 36415; 74022; 80053; 82150; 83690; 85025; 96372; 99284; A9270; J1170; 99283

== ENCOUNTER 2017-04-25 08:46 | Emergency (ER) | payer BC, MEDICARE ==
[2017-04-25 09:24] VITALS: BP 132/98
[2017-04-25] MEDS ORDERED: HYDROmorphone 1 MG/ML Syringe IM ONE ×2 (09:58→11:32)
--- NOTE | 2017-04-25 13:18 | EDM.PDOC ---
ED HPI GENERAL MEDICAL PROBLEM - General Chief Complaint: Abdominal Pain Stated Complaint: ABDOMINAL PAIN Time Seen by Provider: 04/25/17 09:35 Source of Information: Reports: Patient History Limitations: Reports: No Limitations - History of Present Illness INITIAL COMMENTS - FREE TEXT/NARRATIVE: The patient presents with epigastric abdominal pain. She has chronic pancreatitis and she went to the [facility] and saw Dr Gutierrez. He put stents in her ducts and did a biopsy. She was doing well for a few days after but then developed the pain again. I saw her here and her x-ray looked good and her lipase was normal. She was given something for pain and she did well for a few days. She returned 5 days later and I saw her again and her lipase was elevated to 561 and her x-ray showed the stent had moved it was orientated a different way and that would indicate it may have moved. The patient was sent home. She has been in contact with the GI service at the [facility] and they recommended she come to them for help. She was going to go next week but she developed more pain, nausea and vomiting. She came back to our ER. She has no fever, chills, cough, chest pain, or shortness of breath. She said her stool looks abnormal like there is fat in it. Onset: Gradual Duration: Week(s): Location: Reports: Abdomen (epigastric and left abdomen) Quality: Reports: Sharp Severity: Severe Improves with: Reports: None Worsens with: Reports: None Associated Symptoms: Reports: Nausea/Vomiting. Denies: Chest Pain, Diaphoresis , Shortness of Breath Left Middle Back Pain Score (Numeric/FACES): 7 - Related Data Allergies Allergy/AdvReac Type Severity Reaction Status Date / Time ketorolac [From Toradol] Allergy Bleeding Verified 04/25/17 09:25 metoclopramide HCl Allergy Itching Verified 04/25/17 09:25 [From Reglan] buprenorphine [From Butrans] AdvReac Other Verified 04/25/17 09:25 ketorolac tromethamine AdvReac Stomach Verified 04/25/17 09:25 [From Toradol] Upset prochlorperazine AdvReac Vomiting Verified 04/25/17 09:25 [From Compazine] Home Meds: Home Meds Levothyroxine Sodium [Synthroid] 200 mcg PO DAILY 01/13/17 [History] Ondansetron HCl [Zofran] 4 mg PO Q6H PRN 01/18/17 [History] Gabapentin [Neurontin] 1,200 mg PO TID 04/25/17 [History] Temazepam [Restoril] 15 mg PO BEDTIME 04/25/17 [History] Past Medical History - Past Health History Medical/Surgical History: Denies Medical/Surgical History HEENT History: Reports: Glaucoma Other Respiratory History: cough RLQ Gastrointestinal History: Reports: Pancreatitis, Other (See Below) Other Gastrointestinal History: chronic pancreatitis, fatty pancreas Other OB/BYN History: c section x3, tubes tied Musculoskeletal History: Reports: Arthritis Neurological History: Reports: TIA, Other (See Below) Other Neuro History: pseudotumor, shunt Psychiatric History: Reports: Addiction, Anxiety, Emotional Problems Endocrine/Metabolic History: Reports: Hypothyroidism - Infectious Disease History Infectious Disease History: Reports: C-Difficile - Past Surgical History HEENT Surgical History: Reports: Oral Surgery GI Surgical History: Reports: Appendectomy, Bariatric Procedure, Cholecystectomy , ERCP Female Surgical History: Reports: Section, Tubal Ligation Social & Family History - Family History Family Medical History: Noncontributory Cardiac: Reports: Bypass, Hypertension, [place] Respiratory: Reports: Asthma Oncologic: Reports: Colon - Tobacco Use Smoking Status *Q: Never Smoker Packs/Tins Daily: 1 Used Tobacco, but Quit: Yes Month Tobacco Last Used: 23 years Second Hand Smoke Exposure: No - Caffeine Use Caffeine Use: Reports: Coffee - Alcohol Use Days Per Week of Alcohol Use: 0 - Recreational Drug Use Recreational Drug Use: No Drug Use in Last 12 Months: No - Living Situation & Occupation Living situation: Reports: , with Spouse Occupation: Unemployed ED ROS GENERAL - Review of Systems Review Of Systems: See Below Constitutional: Reports: No Symptoms HEENT: Reports: No Symptoms Respiratory: Reports: No Symptoms Cardiovascular: Reports: No Symptoms Endocrine: Reports: No Symptoms GI/Abdominal: Reports: Abdominal Pain, Nausea, Vomiting. Denies: Diarrhea : Reports: No Symptoms Musculoskeletal: Reports: No Symptoms ED EXAM, GI/ABD - Physical Exam Exam: See Below Exam Limited By: No Limitations General Appearance: Alert, No Apparent Distress Ears: Normal External Exam Nose: Normal Inspection Head: Atraumatic, Normocephalic Neck: Normal Inspection Respiratory/Chest: No Respiratory Distress, Lungs Clear, Normal Breath Sounds Cardiovascular: Regular Rate, Rhythm, No Edema, No Murmur GI/Abdominal: Soft, No Organomegaly, No Mass, Tenderness (Moderate to the epigastric region) Back Exam: Normal Inspection Extremities: Normal Inspection Course - Vital Signs Last Recorded V/S: Last Vital Signs Temp 97.2 F 04/25/17 09:22 Pulse 77 04/25/17 09:22 Resp 16 04/25/17 09:22 BP 132/98 H 04/25/17 09:22 Pulse Ox 97 04/25/17 09:22 - Orders/Labs/Meds Orders: Active Orders 24 hr Category Date Time Status Peripheral IV Care [RC] . DIRECTED Care 04/25/17 13:24 Active Abdomen Series w Chest 1V [CR] Stat Exams 04/25/17 09:57 Taken Sodium Chloride 0.9% [Normal Saline] 1,000 ml Med 04/25/17 13:30 Active IV ASDIRECTED Sodium Chloride 0.9% [Saline Flush] Med 04/25/17 13:24 Active 10 ml FLUSH ASDIRECTED PRN Peripheral IV Insertion Adult [OM.PC] Routine Oth 04/25/17 13:24 Ordered Medication Orders Sodium Chloride (Normal Saline) 1,000 mls @ 150 mls/hr IV ASDIRECTED EDSON Sodium Chloride (Saline Flush) 10 ml FLUSH ASDIRECTED PRN PRN Reason: Keep Vein Open Labs: Laboratory Tests 04/25/17 04/25/17 Range/Units 10:24 10:24 WBC 7.76 (3.98-10.04) K/mm3 RBC 3.95 L (3.98-5.22) M/mm3 Hgb 11.7 (11.2-15.7) gm/L Hct 36.3 (34.1-44.9) % MCV 91.9 (79.4-94.8) fl MCH 29.6 (25.6-32.2) pg MCHC 32.2 (32.2-35.5) g/dl RDW Std Deviation 48.4 H (36.4-46.3) fL Plt Count 316 (182-369) K/mm3 MPV 10.3 (9.4-12.3) fl Neut % (Auto) 52.2 (34.0-71.1) % Lymph % (Auto) 39.0 (19.3-51.7) % [place] % (Auto) 7.5 (4.7-12.5) % Eos % (Auto) 0.9 (0.7-5.8) Baso % (Auto) 0.4 (0.1-1.2) % Neut # (Auto) 4.05 (1.56-6.13) K/mm3 Lymph # (Auto) 3.03 (1.18-3.74) K/mm3 [place] # (Auto) 0.58 H (0.24-0.36) K/mm3 Eos # (Auto) 0.07 (0.04-0.36) K/mm3 Baso # (Auto) 0.03 (0.01-0.08) K/mm3 Sodium 140 (136-145) mEq/L Potassium 3.9 (3.5-5.1) mEq/L Chloride 107 (98-107) mEq/L Carbon Dioxide 24 (21-32) mEq/L Anion Gap 12.9 (5-15) BUN 11 (7-18) mg/dL Creatinine 0.9 (0.55-1.02) mg/dL Est Cr Clr Drug Dosing 88.06 mL/min Estimated GFR (MDRD) > 60 (>60) mL/min BUN/Creatinine Ratio 12.2 L (14-18) Glucose 94 (74-106) mg/dL Calcium 9.3 (8.5-10.1) mg/dL Total Bilirubin 0.3 (0.2-1.0) mg/dL AST 18 (15-37) U/L ALT 19 (14-59) U/L Alkaline Phosphatase 76 (46-116) U/L Total Protein 8.9 H (6.4-8.2) g/dl Albumin 4.2 (3.4-5.0) g/dl Globulin 4.7 gm/dL Albumin/Globulin Ratio 0.9 L (1-2) Amylase 63 (25-115) U/L Lipase 371 (73-393) U/L Meds: Medications Generic Name Dose Route Start Last Admin Trade Name Freq PRN Reason Stop Dose Admin Sodium Chloride 1,000 mls @ 150 mls/hr 04/25/17 13:30 Normal Saline IV ASDIRECTED EDSON Sodium Chloride 10 ml 04/25/17 13:24 Saline Flush FLUSH ASDIRECTED PRN Keep Vein Open Discontinued Medications Generic Name Dose Route Start Last Admin Trade Name Dominic PRN Reason Stop Dose Admin Hydromorphone HCl 1 mg 04/25/17 09:58 04/25/17 10:19 Dilaudid IM 04/25/17 09:59 1 mg ONETIME ONE Administration Hydromorphone HCl 1 mg 04/25/17 11:32 04/25/17 11:39 Dilaudid IM 04/25/17 11:33 1 mg ONETIME ONE Administration Hydromorphone HCl 0.5 mg 04/25/17 13:25 Dilaudid IVPUSH 04/25/17 13:26 ONETIME ONE - Re-Assessments/Exams Free Text/Narrative Re-Assessment/Exam: 04/25/17 13:19 The patient is a hard IV stick so initially I just ordered labs and an x-ray and some dilaudid for pain. Her x-ray does not show any free air or signs of obstruction. Her CBC looks good. Her lipase is back to normal. She had more pain so I ordered dilaudid 1mg IM. I have ordered an IV and fluids and something for pain. 04/25/17 13:32 She had contacted her doctors back in [place] and they did recommend she came back to them. They wanted her to come here and be assessed with x-rays and labs and call. I called the [facility] and talked with Dr Smith on the hospital service and she did accept the patient. Departure - Departure Time of Disposition: 13:35 Disposition: DC/Tfer to Acute Hospital 02 Condition: fair Clinical Impression: Chronic recurrent pancreatitis Abdominal pain Qualifiers: Abdominal location: upper abdomen, unspecified Qualified Code(s): R10.10 - Upper abdominal pain, unspecified Vomiting Qualifiers: Vomiting type: unspecified Vomiting Intractability: non-intractable Nausea presence: with nausea Qualified Code(s): R11.2 - Nausea with vomiting, unspecified - Discharge Information Forms: ED Department Discharge - My Orders Last 24 Hours: My Active Orders 04/25/17 09:57 Abdomen Series w Chest 1V [CR] Stat 04/25/17 13:24 Peripheral IV Care [RC] . DIRECTED Sodium Chloride 0.9% [Saline Flush] 10 ml FLUSH ASDIRECTED PRN Peripheral IV Insertion Adult [OM.PC] Routine 04/25/17 13:30 Sodium Chloride 0.9% [Normal Saline] 1,000 ml IV ASDIRECTED - Assessment/Plan Last 24 Hours: My Active Orders 04/25/17 09:57 Abdomen Series w Chest 1V [CR] Stat 04/25/17 13:24 Peripheral IV Care [RC] . DIRECTED Sodium Chloride 0.9% [Saline Flush] 10 ml FLUSH ASDIRECTED PRN Peripheral IV Insertion Adult [OM.PC] Routine 04/25/17 13:30 Sodium Chloride 0.9% [Normal Saline] 1,000 ml IV ASDIRECTED
[2017-04-25] MEDS ORDERED: Sodium Chloride 0.9% 10 ML Syringe FLUSH PRN (13:24)
[2017-04-25] MEDS ORDERED: HYDROmorphone 0.5 MG/0.5 ML Syringe IVPUSH ONE (13:25)
[2017-04-25] MEDS ORDERED: Sodium Chloride 0.9% 1,000 ML IV SCH (13:30)
--- NOTE | 2017-04-27 15:46 | CR ---
Abdominal series: Supine and upright views of the abdomen were obtained as well as frontal view of the chest. Comparison: Previous study of 04/22/17. Heart size and mediastinum are within normal limits. Lungs are clear. Mild thoracic scoliosis is seen. Surgical clip is noted within the upper right abdomen from previous cholecystectomy. Catheter is seen within the left abdomen which is stable. Stent is noted within the right lower abdomen overlying the pelvis which is stable in position from most recent exam. Bowel gas pattern is normal. Surgical anastomotic sutures are seen within the left upper abdomen. Impression: 1. Findings as noted above. No significant change is seen from most recent exam. Diagnostic code #2
== END 2017-04-25 15:00 ==
LOC: JD.ED 08:46
DX: K86.1 Other chronic pancreatitis (principal); M19.90 Unspecified osteoarthritis, unspecified site; F41.9 Anxiety disorder, unspecified; E03.9 Hypothyroidism, unspecified; Z86.73 Personal history of transient ischemic attack (TIA), and cerebral infarction without residual deficits; Z98.84 Bariatric surgery status; Z90.49 Acquired absence of other specified parts of digestive tract; Z98.890 Other specified postprocedural states; Z87.891 Personal history of nicotine dependence; Z79.899 Other long term (current) drug therapy; Z88.6 Allergy status to analgesic agent; Z88.8 Allergy status to other drugs, medicaments and biological substances
CPT/HCPCS: 36415; 74022; 80053; 82150; 83690; 85025; 96361; 96372; 96374; 99285; J1170; J7040; 99284

== ENCOUNTER 2017-05-14 09:43 | Emergency (ER) | payer BC, MEDICARE ==
[2017-05-14 09:55] VITALS: BP 128/74
[2017-05-14] MEDS ORDERED: HYDROmorphone 1 MG/ML Syringe IM ONE (11:21)
[2017-05-14] MEDS ORDERED: Ondansetron 4 MG Tab.DIS PO ONE (11:21)
[2017-05-14] MEDS ORDERED: Ketorolac 30 MG/ML SDV IM ONE (11:21)
--- NOTE | 2017-05-14 11:25 | EDM.PDOC ---
[id number] Complaint: PANCREATITIS Time Seen by Provider: 05/14/17 10:12 Source of Information: Reports: Patient History Limitations: Reports: No Limitations - History of Present Illness INITIAL COMMENTS - FREE TEXT/NARRATIVE: The patient is a 41-year-old female with a history of chronic abdominal pain, narcotic dependence, prior pancreatitis, frequent emergency department visits for abdominal pain, who comes in with abdominal pain. Patient states that she was here early in April and was ultimately flown to [facility] for further care. She states that the doctors there did not do anything for her and she was discharged 3 days later. She is followed by Dr. Gutierrez there. Since then she states that she had been doing okay but then started getting pain a couple of days ago. The pain is her typical abdominal pain. Is located in the upper abdomen, epigastric area, sharp, waxes and wanes. States that she's not been able to really eat. She had one episode of vomiting this morning. She is out of the Zofran that she normally takes for nausea. She states she did take an oxycodone and a Tylenol at 2 AM but had no relief. No fever. No diarrhea or constipation. No urinary symptoms. Her follow-up appointment with Dr. Gutierrez is an June. Left Upper Abdomen Pain Score (Numeric/FACES): 8 - Related Data Allergies Allergy/AdvReac Type Severity Reaction Status Date / Time ketorolac [From Toradol] Allergy Bleeding Verified 05/14/17 09:55 metoclopramide HCl Allergy Itching Verified 05/14/17 09:55 [From Reglan] buprenorphine [From Butrans] AdvReac Other Verified 05/14/17 09:55 ketorolac tromethamine AdvReac Stomach Verified 05/14/17 09:55 [From Toradol] Upset prochlorperazine AdvReac Vomiting Verified 05/14/17 09:55 [From Compazine] Home Meds: Home Meds Levothyroxine Sodium [Synthroid] 200 mcg PO DAILY 01/13/17 [History] Ondansetron HCl [Zofran] 4 mg PO Q6H PRN 01/18/17 [History] Gabapentin [Neurontin] 1,200 mg PO TID 04/25/17 [History] Temazepam [Restoril] 15 mg PO BEDTIME 04/25/17 [History] Ondansetron [Zofran ODT] 4 mg PO Q4H PRN #30 tab.dis 05/14/17 [Rx] Past Medical History - Past Health History Medical/Surgical History: Denies Medical/Surgical History HEENT History: Reports: Glaucoma Other Respiratory History: cough RLQ Gastrointestinal History: Reports: Pancreatitis, Other (See Below) Other Gastrointestinal History: chronic pancreatitis, fatty pancreas Other OB/BYN History: c section x3, tubes tied Musculoskeletal History: Reports: Arthritis Neurological History: Reports: TIA, Other (See Below) Other Neuro History: pseudotumor, shunt Psychiatric History: Reports: Addiction, Anxiety, Emotional Problems Endocrine/Metabolic History: Reports: Hypothyroidism - Infectious Disease History Infectious Disease History: Reports: C-Difficile - Past Surgical History HEENT Surgical History: Reports: Oral Surgery GI Surgical History: Reports: Appendectomy, Bariatric Procedure, Cholecystectomy , ERCP Female Surgical History: Reports: Section, Tubal Ligation Social & Family History - Family History Family Medical History: Noncontributory Cardiac: Reports: Bypass, Hypertension, [place] Respiratory: Reports: Asthma Oncologic: Reports: Colon - Tobacco Use Smoking Status *Q: Never Smoker Packs/Tins Daily: 1 Used Tobacco, but Quit: Yes Month Tobacco Last Used: 23 years Second Hand Smoke Exposure: No - Caffeine Use Caffeine Use: Reports: Coffee - Alcohol Use Days Per Week of Alcohol Use: 0 - Recreational Drug Use Recreational Drug Use: No Drug Use in Last 12 Months: No - Living Situation & Occupation Living situation: Reports: , with Spouse Occupation: Unemployed ED ROS GENERAL - Review of Systems Review Of Systems: See Below Constitutional: Reports: Malaise. Denies: Fever HEENT: Reports: No Symptoms Respiratory: Reports: No Symptoms. Denies: Cough Cardiovascular: Denies: Chest Pain Endocrine: Reports: No Symptoms GI/Abdominal: Reports: Abdominal Pain, Nausea : Denies: Dysuria Musculoskeletal: Reports: No Symptoms ED EXAM, GI/ABD - Physical Exam Exam: See Below Exam Limited By: No Limitations General Appearance: Alert, WD/WN, No Apparent Distress Ears: Normal External Exam Nose: Normal Inspection Throat/Mouth: Normal Inspection, Normal Oropharynx, No Airway Compromise Head: Atraumatic, Normocephalic Neck: Normal Inspection, Supple, Full Range of Motion Respiratory/Chest: No Respiratory Distress, Lungs Clear, Normal Breath Sounds, Chest Non-Tender Cardiovascular: Normal Peripheral Pulses, Regular Rate, Rhythm, No Murmur GI/Abdominal: Soft, No Distention, Other (does not appear to be tender when examined while distracted). No: Guarding, Rebound, Rigidity Back Exam: No: CVA Tenderness (L), CVA Tenderness (R) Extremities: Normal Inspection Neurological: Alert, Oriented, Normal Cognition Psychiatric: Normal Affect, Normal Mood Skin Exam: Warm, Dry, Normal Color Course - Vital Signs Last Recorded V/S: Last Vital Signs Temp 36.1 C 05/14/17 09:52 Pulse 73 05/14/17 09:52 Resp 19 05/14/17 09:52 BP 128/74 05/14/17 09:52 Pulse Ox 100 05/14/17 09:52 - Orders/Labs/Meds Orders: Active Orders 24 hr Category Date Time Status Abdomen Series w Chest 1V [CR] Stat Exams 05/14/17 11:23 Taken Labs: Laboratory Tests 05/14/17 05/14/17 05/14/17 Range/Units 10:50 10:50 11:05 WBC 5.43 (3.98-10.04) K/mm3 RBC 4.16 (3.98-5.22) M/mm3 Hgb 12.4 (11.2-15.7) gm/L Hct 37.6 (34.1-44.9) % MCV 90.4 (79.4-94.8) fl MCH 29.8 (25.6-32.2) pg MCHC 33.0 (32.2-35.5) g/dl RDW Std Deviation 44.5 (36.4-46.3) fL Plt Count 173 L (182-369) K/mm3 MPV 10.6 (9.4-12.3) fl Neut % (Auto) 40.4 (34.0-71.1) % Lymph % (Auto) 44.9 (19.3-51.7) % [place] % (Auto) 11.0 (4.7-12.5) % Eos % (Auto) 3.1 (0.7-5.8) Baso % (Auto) 0.6 (0.1-1.2) % Neut # (Auto) 2.19 (1.56-6.13) K/mm3 Lymph # (Auto) 2.44 (1.18-3.74) K/mm3 [place] # (Auto) 0.60 H (0.24-0.36) K/mm3 Eos # (Auto) 0.17 (0.04-0.36) K/mm3 Baso # (Auto) 0.03 (0.01-0.08) K/mm3 Sodium 139 (136-145) mEq/L Potassium 3.6 (3.5-5.1) mEq/L Chloride 102 (98-107) mEq/L Carbon Dioxide 28 (21-32) mEq/L Anion Gap 12.6 (5-15) BUN 6 L (7-18) mg/dL Creatinine 0.9 (0.55-1.02) mg/dL Est Cr Clr Drug Dosing 88.06 mL/min Estimated GFR (MDRD) > 60 (>60) mL/min BUN/Creatinine Ratio 6.7 L (14-18) Glucose 82 (74-106) mg/dL Calcium 9.1 (8.5-10.1) mg/dL Total Bilirubin 0.2 (0.2-1.0) mg/dL AST 23 (15-37) U/L ALT 16 (14-59) U/L Alkaline Phosphatase 60 (46-116) U/L Total Protein 8.4 H (6.4-8.2) g/dl Albumin 3.9 (3.4-5.0) g/dl Globulin 4.5 gm/dL Albumin/Globulin Ratio 0.9 L (1-2) Lipase 237 (73-393) U/L Urine Color Yellow (Yellow) Urine Appearance Clear (Clear) Urine pH 7.0 (5.0-8.0) Ur Specific [place] 1.020 (1.005-1.030) Urine Protein Negative (Negative) Urine Glucose (UA) Negative (Negative) Urine Ketones Negative (Negative) Urine Occult Blood Negative (Negative) Urine Nitrite Negative (Negative) Urine Bilirubin Negative (Negative) Urine Urobilinogen 0.2 (0.2-1.0) Ur Leukocyte Esterase Negative (Negative) Urine RBC Not seen (0-5) /hpf Urine WBC 0-5 (0-5) /hpf Ur Epithelial Cells 0-5 (0-5) /hpf Urine Bacteria Not seen (FEW) /hpf Urine Mucus Not seen (FEW) /hpf Meds: Medications Discontinued Medications Generic Name Dose Route Start Last Admin Trade Name Dominic PRN Reason Stop Dose Admin Hydromorphone HCl 1 mg 05/14/17 11:21 05/14/17 11:28 Dilaudid IM 05/14/17 11:22 1 mg ONETIME ONE Administration Ketorolac Tromethamine 30 mg 05/14/17 11:21 05/14/17 11:28 Toradol IM 05/14/17 11:22 30 mg ONETIME ONE Administration Ondansetron HCl 8 mg 05/14/17 11:21 05/14/17 11:28 Zofran Odt PO 05/14/17 11:22 8 mg ONETIME ONE Administration - Re-Assessments/Exams Free Text/Narrative Re-Assessment/Exam: 05/14/17 12:42 Labs all within normal limits including a white count of 5, no left shift, lipase of 240. Her exam is really quite benign, particularly when distracted she doesn't appear to be in pain. She also walked to radiology with a normal gait and didn't seem uncomfortable at that time. I did give her a milligram of intramuscular Dilaudid as well as 30 of IM Toradol, though its listed on her allergy list, she tolerates this medication as her side effects to NSAIDs have been GI related. I spoke with [facility] gastroenterology specialist of pancreas Dr. Mckenzie. He reviewed records from her recent admission. He states that she did have an ERCP there at the end of March. Imaging during her stay there showed that her pancreatic stent was in her colon. Upon review of her abdominal series today I do not see the stent, he states that she likely voided it a bowel movement and that this is not concerning. He states that given her completely normal labs and vital signs that he suspects no intervention is indicated and recommended that he follow-up with Dr. Gutierrez at her scheduled time or she may call to make a sooner appointment if she feels necessary. For future reference, physician to physician phone number to speak with [facility] physician is [phone]. 05/14/17 12:44 Free Text/Narrative Re-Assessment/Exam: 05/14/17 12:45 I discussed results with Brisa who understood and is content with the plan to go home and follow-up as an outpatient. Departure - Departure Time of Disposition: 12:29 Disposition: Home, Self-Care 01 Clinical Impression: Abdominal pain - Discharge Information Prescriptions: Ondansetron [Zofran ODT] 4 mg PO Q4H PRN #30 tab.dis PRN Reason: Nausea Instructions: Abdominal Pain, Adult, [id number] Referrals: Rik Walls PA-C [Primary Care Provider] - Forms: ED Department Discharge Additional Instructions: 1. Take your usual medications for pain and nausea 2. Clear liquid diet until your pain improves 3. I discussed your case with Dr. Mckenzie at [facility]. He recommends you follow up with your primary doctor here and call to reschedule your appointment with Dr. Gutierrez if you think you need to be seen sooner. - My Orders Last 24 Hours: My Active Orders 05/14/17 11:23 Abdomen Series w Chest 1V [CR] Stat - Assessment/Plan Last 24 Hours: My Active Orders 05/14/17 11:23 Abdomen Series w Chest 1V [CR] Stat
--- NOTE | 2017-05-15 08:58 | CR ---
Abdominal series: Frontal view of the chest was obtained as well as supine and upright views of the abdomen. Comparison: Previous abdominal series of 04/25/17. Heart size and mediastinum are normal. Lungs are clear. Mild scoliosis is noted within the spine. Surgical clip is noted within the upper right abdomen. Surgical anastomotic sutures also seen within the left abdomen. Several catheters are seen within the left abdomen. Several air-fluid levels seen within small bowel which are felt to be within normal limits. Prior study showed a stent presumably within bowel within the right abdomen. Impression: 1. Incidental findings. Nothing acute is appreciated on abdominal series. 2. Previous study showed a stent within the right abdomen which was felt to be within bowel. This stent is no longer seen. Diagnostic code #2
== END 2017-05-14 12:43 | disposition home or self-care (01) ==
LOC: JD.ED 09:43
DX: R10.12 Left upper quadrant pain (principal); R10.13 Epigastric pain; M19.90 Unspecified osteoarthritis, unspecified site; F41.9 Anxiety disorder, unspecified; E03.9 Hypothyroidism, unspecified; Z86.73 Personal history of transient ischemic attack (TIA), and cerebral infarction without residual deficits; Z98.2 Presence of cerebrospinal fluid drainage device; Z90.49 Acquired absence of other specified parts of digestive tract; Z98.84 Bariatric surgery status; Z98.890 Other specified postprocedural states; Z98.51 Tubal ligation status; Z87.891 Personal history of nicotine dependence; Z79.899 Other long term (current) drug therapy; Z88.6 Allergy status to analgesic agent; Z88.8 Allergy status to other drugs, medicaments and biological substances
CPT/HCPCS: 36415; 74022; 80053; 81001; 83690; 85025; 96372; 99285; A9270; J1170; J1885; 99283

== ENCOUNTER 2017-05-17 08:33 | Emergency (ER) | payer BC, MEDICARE ==
[2017-05-17 08:44] VITALS: BP 136/85
--- NOTE | 2017-05-17 08:50 | EDM.PDOC ---
ED HPI GENERAL MEDICAL PROBLEM - General Chief Complaint: Gastrointestinal Problem Stated Complaint: PANCREATITIS Time Seen by Provider: 05/17/17 08:44 - History of Present Illness INITIAL COMMENTS - FREE TEXT/NARRATIVE: 41-year-old female presents emergency room with abdominal pain. Patient is frequently here with similar pain. She carries a diagnosis of chronic pancreatitis. She was just evaluated here in the of this last month 4 days ago had an unrevealing workup and is to follow-up with her pancreas physician at the [facility]. The patient has had stent placement by ERCP this stent has spontaneously passed on its own. They are contemplating more aggressive pancreas surgery perhaps later this year. They did have some questions about a letter the the recently received when she had ERCP/EGD done at the end of March of this year biopsies of gastric mucosa showed mild inflammation. This is believed to be a nonspecific finding. Patient awoke around 4:30 this morning with epigastric discomfort some nausea. She's had a loose stool somewhat mucousy this morning no blood noted. She has not noticed any fevers or chills. Treatments MEDICAL TRANSCRIPTION: Reports: NSAIDS, Other Medication(s) Other Treatments MEDICAL TRANSCRIPTION: oxycodone Right Upper Abdomen Pain Score (Numeric/FACES): 8 - Related Data Allergies Allergy/AdvReac Type Severity Reaction Status Date / Time metoclopramide HCl Allergy Itching Verified 05/17/17 08:44 [From Reglan] buprenorphine [From Butrans] AdvReac Other Verified 05/17/17 08:44 ketorolac tromethamine AdvReac Stomach Verified 05/17/17 08:44 [From Toradol] Upset prochlorperazine AdvReac Vomiting Verified 05/17/17 08:44 [From Compazine] Home Meds: Home Meds Levothyroxine Sodium [Synthroid] 200 mcg PO DAILY 01/13/17 [History] Ondansetron HCl [Zofran] 4 mg PO Q6H PRN 01/18/17 [History] Gabapentin [Neurontin] 1,200 mg PO TID 04/25/17 [History] Temazepam [Restoril] 15 mg PO BEDTIME 04/25/17 [History] Ondansetron [Zofran ODT] 4 mg PO Q4H PRN #30 tab.dis 05/14/17 [Rx] Past Medical History - Past Health History Medical/Surgical History: Denies Medical/Surgical History HEENT History: Reports: Glaucoma Other Respiratory History: cough RLQ Gastrointestinal History: Reports: Pancreatitis, Other (See Below) Other Gastrointestinal History: chronic pancreatitis, fatty pancreas Other OB/BYN History: c section x3, tubes tied Musculoskeletal History: Reports: Arthritis Neurological History: Reports: TIA, Other (See Below) Other Neuro History: pseudotumor, shunt Psychiatric History: Reports: Addiction, Anxiety, Emotional Problems Endocrine/Metabolic History: Reports: Hypothyroidism - Infectious Disease History Infectious Disease History: Reports: C-Difficile - Past Surgical History HEENT Surgical History: Reports: Oral Surgery GI Surgical History: Reports: Appendectomy, Bariatric Procedure, Cholecystectomy , ERCP Female Surgical History: Reports: Section, Tubal Ligation Social & Family History - Family History Family Medical History: Noncontributory Cardiac: Reports: Bypass, Hypertension, [place] Respiratory: Reports: Asthma Oncologic: Reports: Colon - Tobacco Use Smoking Status *Q: Never Smoker Packs/Tins Daily: 1 Used Tobacco, but Quit: Yes Month Tobacco Last Used: 23 years Second Hand Smoke Exposure: No - Caffeine Use Caffeine Use: Reports: Coffee - Alcohol Use Days Per Week of Alcohol Use: 0 - Recreational Drug Use Recreational Drug Use: No Drug Use in Last 12 Months: No - Living Situation & Occupation Living situation: Reports: , with Spouse Occupation: Unemployed ED ROS GENERAL - Review of Systems Review Of Systems: See Below Constitutional: Reports: No Symptoms HEENT: Reports: No Symptoms Respiratory: Reports: No Symptoms Cardiovascular: Reports: No Symptoms GI/Abdominal: Reports: Abdominal Pain. Denies: Constipation, Vomiting : Reports: No Symptoms ED EXAM, GI/ABD - Physical Exam Exam: See Below Exam Limited By: No Limitations General Appearance: Alert, No Apparent Distress Head: Atraumatic, Normocephalic Neck: Normal Inspection, Supple, Non-Tender, Full Range of Motion Respiratory/Chest: No Respiratory Distress, Lungs Clear, Normal Breath Sounds Cardiovascular: Regular Rate, Rhythm, No Edema, No Murmur GI/Abdominal: Normal Bowel Sounds, Soft, Other (She has epigastric discomfort and to a lesser degree left upper quadrant discomfort. Remaining abdominal exam is unremarkable no rebound guarding or distention) Back Exam: Normal Inspection. No: CVA Tenderness (L), CVA Tenderness (R) Extremities: Normal Inspection, No Pedal Edema Course - Vital Signs Last Recorded V/S: Last Vital Signs Temp 36.3 C 05/17/17 08:41 Pulse 76 05/17/17 08:41 Resp 18 05/17/17 08:41 BP 136/85 05/17/17 08:41 Pulse Ox 98 05/17/17 08:41 - Orders/Labs/Meds Labs: Laboratory Tests 05/17/17 05/17/17 Range/Units 09:30 09:30 WBC 6.22 (3.98-10.04) K/mm3 RBC 3.76 L (3.98-5.22) M/mm3 Hgb 11.0 L (11.2-15.7) gm/L Hct 34.5 (34.1-44.9) % MCV 91.8 (79.4-94.8) fl MCH 29.3 (25.6-32.2) pg MCHC 31.9 L (32.2-35.5) g/dl RDW Std Deviation 47.1 H (36.4-46.3) fL Plt Count 205 (182-369) K/mm3 MPV 10.3 (9.4-12.3) fl Neutrophils % (Manual) 74 H (40-60) % Band Neutrophils % 0 (0-10) % Lymphocytes % (Manual) 20 (20-40) % Monocytes % (Manual) 2 (2-10) % Eosinophils % (Manual) 4 (0.7-5.8) % Basophils % (Manual) 0 L (0.1-1.2) Platelet Estimate Adequate RBC Morph Comment Normal Sodium 143 (136-145) mEq/L Potassium 3.8 (3.5-5.1) mEq/L Chloride 108 H (98-107) mEq/L Carbon Dioxide 27 (21-32) mEq/L Anion Gap 11.8 (5-15) BUN 7 (7-18) mg/dL Creatinine 0.9 (0.55-1.02) mg/dL Est Cr Clr Drug Dosing 88.29 mL/min Estimated GFR (MDRD) > 60 (>60) mL/min BUN/Creatinine Ratio 7.8 L (14-18) Glucose 94 (74-106) mg/dL Calcium 9.0 (8.5-10.1) mg/dL Total Bilirubin 0.3 (0.2-1.0) mg/dL AST 19 (15-37) U/L ALT 21 (14-59) U/L Alkaline Phosphatase 54 (46-116) U/L Total Protein 8.1 (6.4-8.2) g/dl Albumin 3.8 (3.4-5.0) g/dl Globulin 4.3 gm/dL Albumin/Globulin Ratio 0.9 L (1-2) Amylase 64 (25-115) U/L Lipase 307 (73-393) U/L Meds: Medications Discontinued Medications Generic Name Dose Route Start Last Admin Trade Name Dominic PRN Reason Stop Dose Admin Hydromorphone HCl 1 mg 05/17/17 09:53 05/17/17 09:57 Dilaudid IM 05/17/17 09:54 1 mg ONETIME ONE Administration Sucralfate 1 gm 05/17/17 09:07 05/17/17 09:12 Carafate PO 05/17/17 09:08 1 gm ONETIME ONE Administration - Re-Assessments/Exams Free Text/Narrative Re-Assessment/Exam: 05/17/17 09:17 We will try a dose of Carafate and see how she does labs pending. 05/17/17 09:59 Labs still pending other than her CBC. She had no relief from the Carafate, however, I think is still beneficial for her to work on dyspepsia therapy she is taking 150 mg of Zantac daily, this needs to be increased to 300 mg daily discuss this with her and her . We will give her a single dose of IM Dilaudid. 05/17/17 10:34 doing better after the Dilaudid labs back beer essentially nondiagnostic amylase and lipase normal. She will be discharged home Departure - Departure Time of Disposition: 10:34 Disposition: Home, Self-Care 01 Clinical Impression: Upper abdominal pain, Dyspepsia Chronic pancreatitis Qualifiers: Pancreatitis type: unspecified pancreatitis type Qualified Code(s): K86.1 - Other chronic pancreatitis - Discharge Information Forms: ED Department Discharge Additional Instructions: Return to the emergency room with any questions problems or worsening symptoms. Increase your Zantac to 300 mg daily or consider Pepcid 20 mg twice a day in place of the Zantac. Follow-up with your pancreas specialist at [facility] sooner if possible. Call on Thursday to arrange this.
[2017-05-17] MEDS ORDERED: Sucralfate Suspension 1 GM/10 ML Cup PO ONE (09:07)
[2017-05-17] MEDS ORDERED: HYDROmorphone 1 MG/ML Syringe IM ONE (09:53)
[2017-06-20] MEDS ORDERED: Ketorolac 30 MG/ML SDV ONE (09:13)
== END 2017-05-17 10:44 | disposition home or self-care (01) ==
LOC: JD.ED 08:33
DX: K86.1 Other chronic pancreatitis (principal); E03.9 Hypothyroidism, unspecified; Z88.8 Allergy status to other drugs, medicaments and biological substances; Z88.6 Allergy status to analgesic agent; Z79.899 Other long term (current) drug therapy; Z86.73 Personal history of transient ischemic attack (TIA), and cerebral infarction without residual deficits; Z90.49 Acquired absence of other specified parts of digestive tract
CPT/HCPCS: 36415; 80053; 82150; 83690; 85025; 96372; 99284; A9270; J1170; 99283

== ENCOUNTER 2017-05-19 08:54 | Emergency (ER) | payer BC, MEDICARE ==
[2017-05-19 09:13] VITALS: BP 147/102
--- NOTE | 2017-05-19 09:34 | EDM.PDOC ---
ED HPI GENERAL MEDICAL PROBLEM - General Chief Complaint: Abdominal Pain Stated Complaint: ABDOMINAL PAIN Time Seen by Provider: 05/19/17 09:30 Source of Information: Reports: Patient, RN Notes Reviewed - History of Present Illness INITIAL COMMENTS - FREE TEXT/NARRATIVE: 41-year-old lady comes in with recurrent upper abdominal discomfort. She does have history of pancreatitis in the past and also does have history of narcotic dependency, chronic pain syndrome. She did present 5 days ago with similar discomfort and then again 2 days ago. Labs were all relatively normal on both of those visits. She did have a stent placed April 09 about 5 or 6 weeks ago at [facility]. She is under the care of a pancreatic specialist associated with that facility. She has had some nausea but no vomiting. No fever or chills. Her pain does radiate to the back Abdominal Pain Score (Numeric/FACES): 8 - Related Data Allergies Allergy/AdvReac Type Severity Reaction Status Date / Time metoclopramide HCl Allergy Itching Verified 05/17/17 08:44 [From Reglan] buprenorphine [From Butrans] AdvReac Other Verified 05/17/17 08:44 ketorolac tromethamine AdvReac Stomach Verified 05/17/17 08:44 [From Toradol] Upset prochlorperazine AdvReac Vomiting Verified 05/17/17 08:44 [From Compazine] Home Meds: Home Meds Levothyroxine Sodium [Synthroid] 200 mcg PO DAILY 01/13/17 [History] Ondansetron HCl [Zofran] 4 mg PO Q6H PRN 01/18/17 [History] Gabapentin [Neurontin] 1,200 mg PO TID 04/25/17 [History] Temazepam [Restoril] 15 mg PO BEDTIME 04/25/17 [History] Ondansetron [Zofran ODT] 4 mg PO Q4H PRN #30 tab.dis 05/14/17 [Rx] Past Medical History - Past Health History Medical/Surgical History: Denies Medical/Surgical History HEENT History: Reports: Glaucoma Other Respiratory History: cough RLQ Gastrointestinal History: Reports: Pancreatitis, Other (See Below) Other Gastrointestinal History: chronic pancreatitis, fatty pancreas Other OB/BYN History: c section x3, tubes tied Musculoskeletal History: Reports: Arthritis Neurological History: Reports: TIA, Other (See Below) Other Neuro History: pseudotumor, shunt Psychiatric History: Reports: Addiction, Anxiety, Emotional Problems Endocrine/Metabolic History: Reports: Hypothyroidism - Infectious Disease History Infectious Disease History: Reports: C-Difficile - Past Surgical History HEENT Surgical History: Reports: Oral Surgery GI Surgical History: Reports: Appendectomy, Bariatric Procedure, Cholecystectomy , ERCP Female Surgical History: Reports: Section, Tubal Ligation Social & Family History - Family History Family Medical History: Noncontributory Cardiac: Reports: Bypass, Hypertension, [place] Respiratory: Reports: Asthma Oncologic: Reports: Colon - Tobacco Use Smoking Status *Q: Never Smoker Packs/Tins Daily: 1 Used Tobacco, but Quit: Yes Month Tobacco Last Used: 23 years Second Hand Smoke Exposure: No - Caffeine Use Caffeine Use: Reports: Coffee - Alcohol Use Days Per Week of Alcohol Use: 0 - Recreational Drug Use Recreational Drug Use: No Drug Use in Last 12 Months: No - Living Situation & Occupation Living situation: Reports: , with Spouse Occupation: Unemployed ED ROS GENERAL - Review of Systems Review Of Systems: See Below Constitutional: Denies: Fever, Chills, Diaphoresis HEENT: Reports: No Symptoms Respiratory: Denies: Shortness of Breath, Pleuritic Chest Pain Cardiovascular: Denies: Chest Pain GI/Abdominal: Reports: Abdominal Pain (Upper mid abdominal), Diarrhea, Nausea ( Loose stools). Denies: Hematemesis, Hematochezia, Melena, Vomiting : Reports: No Symptoms Musculoskeletal: Reports: Back Pain Skin: Reports: No Symptoms Neurological: Reports: Dizziness (Mild) ED EXAM, GI/ABD - Physical Exam Exam: See Below General Appearance: Alert, Moderate Distress Eyes: Bilateral: Normal Appearance Throat/Mouth: Normal Inspection, Normal Oropharynx Respiratory/Chest: No Respiratory Distress, Lungs Clear Cardiovascular: Regular Rate, Rhythm GI/Abdominal: Soft, Tenderness (Upper mid abdomen and left upper mid abdomen). No: Guarding, Rebound Back Exam: No: CVA Tenderness (L), CVA Tenderness (R) Extremities: Normal Inspection. No: Pedal Edema, Leg Pain Neurological: Alert, Oriented, No Motor/Sensory Deficits Skin Exam: Warm, Dry, Normal Color Course - Vital Signs Text/Narrative:: Labs are as documented. Her lipase has risen from 237 5 days ago, 3072 days ago to 441 today amylase still relatively normal at 69, white blood count today 6450. In treated with Dilaudid IM, Zofran ODT and also Toradol IM symptoms improved at time of discharge. Last Recorded V/S: Last Vital Signs Temp 97.5 F 05/19/17 11:30 Pulse 75 05/19/17 11:30 Resp 16 05/19/17 11:30 BP 147/102 H 05/19/17 09:09 Pulse Ox 100 05/19/17 11:30 - Orders/Labs/Meds Labs: Laboratory Tests 05/19/17 05/19/17 Range/Units 09:45 09:45 WBC 6.45 (3.98-10.04) K/mm3 RBC 3.74 L (3.98-5.22) M/mm3 Hgb 10.9 L (11.2-15.7) gm/L Hct 34.2 (34.1-44.9) % MCV 91.4 (79.4-94.8) fl MCH 29.1 (25.6-32.2) pg MCHC 31.9 L (32.2-35.5) g/dl RDW Std Deviation 47.2 H (36.4-46.3) fL Plt Count 244 (182-369) K/mm3 MPV 10.1 (9.4-12.3) fl Neut % (Auto) 44.3 (34.0-71.1) % Lymph % (Auto) 43.9 (19.3-51.7) % [place] % (Auto) 9.5 (4.7-12.5) % Eos % (Auto) 1.7 (0.7-5.8) Baso % (Auto) 0.6 (0.1-1.2) % Neut # (Auto) 2.86 (1.56-6.13) K/mm3 Lymph # (Auto) 2.83 (1.18-3.74) K/mm3 [place] # (Auto) 0.61 H (0.24-0.36) K/mm3 Eos # (Auto) 0.11 (0.04-0.36) K/mm3 Baso # (Auto) 0.04 (0.01-0.08) K/mm3 Amylase 69 (25-115) U/L Lipase 441 H (73-393) U/L Meds: Medications Discontinued Medications Generic Name Dose Route Start Last Admin Trade Name Dominic PRN Reason Stop Dose Admin Hydromorphone HCl 1 mg 05/19/17 10:16 05/19/17 10:30 Dilaudid IM 05/19/17 10:17 1 mg ONETIME ONE Administration Hydromorphone HCl 1 mg 05/19/17 11:23 05/19/17 11:30 Dilaudid IM 05/19/17 11:24 1 mg ONETIME ONE Administration Ketorolac Tromethamine 60 mg 05/19/17 10:16 05/19/17 10:21 Toradol IM 05/19/17 10:17 60 mg ONETIME ONE Administration Ondansetron HCl 4 mg 05/19/17 10:16 05/19/17 10:25 Zofran Odt PO 05/19/17 10:17 4 mg ONETIME ONE Administration Departure - Departure Time of Disposition: 11:04 Disposition: Home, Self-Care 01 Condition: Fair Clinical Impression: Pancreatitis, chronic - Discharge Information Instructions: Acute Pancreatitis, [id number] Referrals: Rik Walls PA-C [Primary Care Provider] - Forms: ED Department Discharge Additional Instructions: Continue Prilosec that he just started yesterday, I suggest taking 20 mg twice daily, increase her Zantac to 150 mg twice daily as discussed. Continue with clear liquids and bland diet. I also do recommend probiotic twice daily. Call your specialist tomorrow to discuss trying to get sure appointment they moved forward. All of clinic as needed, return to ED as needed
[2017-05-19] MEDS ORDERED: Ketorolac 60 MG/2 ML SDV IM ONE (10:16)
[2017-05-19] MEDS ORDERED: Ondansetron 4 MG Tab.DIS PO ONE (10:16)
[2017-05-19] MEDS ORDERED: HYDROmorphone 1 MG/ML Syringe IM ONE ×2 (10:16→11:23)
== END 2017-05-19 11:30 | disposition home or self-care (01) ==
LOC: JD.ED 08:54
DX: K86.1 Other chronic pancreatitis (principal); F41.9 Anxiety disorder, unspecified; E03.9 Hypothyroidism, unspecified; Z88.6 Allergy status to analgesic agent; Z79.899 Other long term (current) drug therapy; Z86.73 Personal history of transient ischemic attack (TIA), and cerebral infarction without residual deficits; Z90.49 Acquired absence of other specified parts of digestive tract
CPT/HCPCS: 36415; 82150; 83690; 85025; 96372; 99284; A9270; J1170; J1885; 99283

== ENCOUNTER 2017-05-21 06:46 | Emergency (ER) | payer BC, MEDICARE ==
[2017-05-21] MEDS ORDERED: Ondansetron 4 MG Tab.DIS PO ONE (07:49)
[2017-05-21] MEDS ORDERED: HYDROmorphone 1 MG/ML Syringe IM ONE ×2 (07:49→09:05)
--- NOTE | 2017-05-21 08:30 | EDM.PDOC ---
ED HPI GENERAL MEDICAL PROBLEM - General Chief Complaint: Abdominal Pain Stated Complaint: ABDOMINAL PAIN Time Seen by Provider: 05/21/17 07:23 Source of Information: Reports: Patient History Limitations: Reports: No Limitations - History of Present Illness INITIAL COMMENTS - FREE TEXT/NARRATIVE: The patient presents with upper abdominal pain, nausea and vomiting. The patient has a history of chronic pancreatitis. She has seen Dr Gutierrez at the [facility] in [place]. He is a GI specialist and he put a stent in. She was doing good for a short while and the stent came out. She was sent back to the [facility] and they did another ERCP. She still had the inflammation. She has another appointment with them in June. They will talk about a surgery. For the past few days she has had more pain, nausea and vomiting. She has been seen here multiple times. She denies other problems like chest pain or shortness of breath. Onset: Gradual Duration: Week(s): Location: Reports: Abdomen Quality: Reports: Sharp Severity: Severe Improves with: Reports: None Worsens with: Reports: None Associated Symptoms: Reports: Nausea/Vomiting. Denies: Chest Pain, Fever/Chills , Shortness of Breath Upper Back Pain Score (Numeric/FACES): 8 - Related Data Allergies Allergy/AdvReac Type Severity Reaction Status Date / Time metoclopramide HCl Allergy Itching Verified 05/17/17 08:44 [From Reglan] buprenorphine [From Butrans] AdvReac Other Verified 05/17/17 08:44 ketorolac tromethamine AdvReac Stomach Verified 05/17/17 08:44 [From Toradol] Upset prochlorperazine AdvReac Vomiting Verified 05/17/17 08:44 [From Compazine] Home Meds: Home Meds Levothyroxine Sodium [Synthroid] 200 mcg PO DAILY 01/13/17 [History] Ondansetron HCl [Zofran] 4 mg PO Q6H PRN 01/18/17 [History] Gabapentin [Neurontin] 1,200 mg PO TID 04/25/17 [History] Temazepam [Restoril] 15 mg PO BEDTIME 04/25/17 [History] Ondansetron [Zofran ODT] 4 mg PO Q4H PRN #30 tab.dis 05/14/17 [Rx] oxyCODONE HCl/Acetaminophen [Percocet 5-325 mg Tablet] 1 - 2 each PO Q6HR PRN # 20 tablet 05/21/17 [Rx] Past Medical History - Past Health History Medical/Surgical History: Denies Medical/Surgical History HEENT History: Reports: Glaucoma Other Respiratory History: cough RLQ Gastrointestinal History: Reports: Pancreatitis, Other (See Below) Other Gastrointestinal History: chronic pancreatitis, fatty pancreas Other OB/BYN History: c section x3, tubes tied Musculoskeletal History: Reports: Arthritis Neurological History: Reports: TIA, Other (See Below) Other Neuro History: pseudotumor, shunt Psychiatric History: Reports: Addiction, Anxiety, Emotional Problems Endocrine/Metabolic History: Reports: Hypothyroidism - Infectious Disease History Infectious Disease History: Reports: C-Difficile - Past Surgical History HEENT Surgical History: Reports: Oral Surgery GI Surgical History: Reports: Appendectomy, Bariatric Procedure, Cholecystectomy , ERCP Female Surgical History: Reports: Section, Tubal Ligation Social & Family History - Family History Family Medical History: Noncontributory Cardiac: Reports: Bypass, Hypertension, [place] Respiratory: Reports: Asthma Oncologic: Reports: Colon - Tobacco Use Smoking Status *Q: Never Smoker Packs/Tins Daily: 1 Used Tobacco, but Quit: Yes Month Tobacco Last Used: 23 years Second Hand Smoke Exposure: No - Caffeine Use Caffeine Use: Reports: None - Alcohol Use Days Per Week of Alcohol Use: 0 - Recreational Drug Use Recreational Drug Use: No Drug Use in Last 12 Months: No - Living Situation & Occupation Living situation: Reports: , with Spouse Occupation: Unemployed ED ROS GENERAL - Review of Systems Review Of Systems: See Below Constitutional: Reports: No Symptoms HEENT: Reports: No Symptoms Respiratory: Reports: No Symptoms Cardiovascular: Reports: No Symptoms Endocrine: Reports: No Symptoms GI/Abdominal: Reports: Abdominal Pain, Nausea, Vomiting : Reports: No Symptoms Musculoskeletal: Reports: No Symptoms Skin: Reports: No Symptoms ED EXAM, GI/ABD - Physical Exam Exam: See Below Exam Limited By: No Limitations General Appearance: Alert, No Apparent Distress Ears: Normal External Exam Nose: Normal Inspection Head: Atraumatic, Normocephalic Neck: Normal Inspection Respiratory/Chest: No Respiratory Distress, Lungs Clear, Normal Breath Sounds Cardiovascular: Regular Rate, Rhythm, No Edema, No Murmur GI/Abdominal: Soft, No Organomegaly, No Mass, Tenderness (Moderate to the upper abdomen) Course - Vital Signs Last Recorded V/S: Last Vital Signs Temp 96.8 F 05/21/17 06:51 Pulse 76 05/21/17 06:51 Resp 16 05/21/17 06:51 BP 143/99 H 05/21/17 06:51 Pulse Ox 98 05/21/17 06:51 - Orders/Labs/Meds Labs: Laboratory Tests 05/21/17 05/21/17 05/21/17 Range/Units 08:24 08:24 08:55 WBC 7.26 (3.98-10.04) K/mm3 RBC 3.67 L (3.98-5.22) M/mm3 Hgb 10.8 L (11.2-15.7) gm/L Hct 33.7 L (34.1-44.9) % MCV 91.8 (79.4-94.8) fl MCH 29.4 (25.6-32.2) pg MCHC 32.0 L (32.2-35.5) g/dl RDW Std Deviation 47.4 H (36.4-46.3) fL Plt Count 251 (182-369) K/mm3 MPV 10.3 (9.4-12.3) fl Neut % (Auto) 48.5 (34.0-71.1) % Lymph % (Auto) 41.0 (19.3-51.7) % [place] % (Auto) 8.1 (4.7-12.5) % Eos % (Auto) 2.1 (0.7-5.8) Baso % (Auto) 0.3 (0.1-1.2) % Neut # (Auto) 3.52 (1.56-6.13) K/mm3 Lymph # (Auto) 2.98 (1.18-3.74) K/mm3 [place] # (Auto) 0.59 H (0.24-0.36) K/mm3 Eos # (Auto) 0.15 (0.04-0.36) K/mm3 Baso # (Auto) 0.02 (0.01-0.08) K/mm3 Sodium 149 H (136-145) mEq/L Potassium 4.1 (3.5-5.1) mEq/L Chloride 111 H (98-107) mEq/L Carbon Dioxide 24 (21-32) mEq/L Anion Gap 18.1 H (5-15) BUN 10 (7-18) mg/dL Creatinine 1.0 (0.55-1.02) mg/dL Est Cr Clr Drug Dosing TNP Estimated GFR (MDRD) > 60 (>60) mL/min BUN/Creatinine Ratio 10.0 L (14-18) Glucose 89 (74-106) mg/dL Calcium 9.1 (8.5-10.1) mg/dL Total Bilirubin 0.3 (0.2-1.0) mg/dL AST 25 (15-37) U/L ALT 20 (14-59) U/L Alkaline Phosphatase 52 (46-116) U/L Total Protein 8.0 (6.4-8.2) g/dl Albumin 3.9 (3.4-5.0) g/dl Globulin 4.1 gm/dL Albumin/Globulin Ratio 1.0 (1-2) Amylase 92 (25-115) U/L Lipase 566 H (73-393) U/L Urine Color Yellow (Yellow) Urine Appearance Clear (Clear) Urine pH 6.0 (5.0-8.0) Ur Specific [place] 1.025 (1.005-1.030) Urine Protein 1+ H (Negative) Urine Glucose (UA) Negative (Negative) Urine Ketones Negative (Negative) Urine Occult Blood Negative (Negative) Urine Nitrite Negative (Negative) Urine Bilirubin Negative (Negative) Urine Urobilinogen 0.2 (0.2-1.0) Ur Leukocyte Esterase Trace H (Negative) Urine RBC Not seen (0-5) /hpf Urine WBC 0-5 (0-5) /hpf Ur Epithelial Cells 0-5 (0-5) /hpf Urine Bacteria Few (FEW) /hpf Urine Mucus Few (FEW) /hpf Meds: Medications Discontinued Medications Generic Name Dose Route Start Last Admin Trade Name Freq PRN Reason Stop Dose Admin Hydromorphone HCl 1 mg 05/21/17 07:49 05/21/17 07:57 Dilaudid IM 05/21/17 07:50 1 mg ONETIME ONE Administration Hydromorphone HCl 1 mg 05/21/17 09:05 05/21/17 09:16 Dilaudid IM 05/21/17 09:06 1 mg ONETIME ONE Administration Ondansetron HCl 4 mg 05/21/17 07:49 05/21/17 07:58 Zofran Odt PO 05/21/17 07:50 4 mg ONETIME ONE Administration - Re-Assessments/Exams Free Text/Narrative Re-Assessment/Exam: 05/21/17 08:29 I ordered labs, UA, zofran 4mg by mouth and dilaudid 1mg IM. 05/21/17 10:04 She still had pain so I ordered some dilaudid 1mg IM earlier. Her CBC looks good. Her CMP looks good. Her lipase was elevated at 566. Her pain is a little better. I will give her a shot of dilaudid and discharge. Departure - Departure Time of Disposition: 10:05 Disposition: Home, Self-Care 01 Condition: Good Clinical Impression: Nausea, Upper abdominal pain Chronic pancreatitis Qualifiers: Pancreatitis type: unspecified pancreatitis type Qualified Code(s): K86.1 - Other chronic pancreatitis - Discharge Information Prescriptions: oxyCODONE HCl/Acetaminophen [Percocet 5-325 mg Tablet] 1 - 2 each PO Q6HR PRN # 20 tablet PRN Reason: Pain Referrals: Rik Walls PA-C [Primary Care Provider] - 1 Week Forms: ED Department Discharge Additional Instructions: Follow up with your specialist as scheduled. Try to get in sooner. Take the percocet as needed and your zofran as needed.
[2017-05-21] MEDS ORDERED: HYDROmorphone 0.5 MG/0.5 ML Syringe IM ONE (10:06)
[2017-05-21 10:26] VITALS: BP 135/91
== END 2017-05-21 10:26 | disposition home or self-care (01) ==
LOC: JD.ED 06:46
DX: K86.1 Other chronic pancreatitis (principal); M19.90 Unspecified osteoarthritis, unspecified site; F41.9 Anxiety disorder, unspecified; E03.9 Hypothyroidism, unspecified; Z86.73 Personal history of transient ischemic attack (TIA), and cerebral infarction without residual deficits; Z98.84 Bariatric surgery status; Z90.49 Acquired absence of other specified parts of digestive tract; Z98.51 Tubal ligation status; Z87.81 Personal history of (healed) traumatic fracture; Z79.899 Other long term (current) drug therapy; Z88.6 Allergy status to analgesic agent; Z88.8 Allergy status to other drugs, medicaments and biological substances
CPT/HCPCS: 36415; 80053; 81001; 82150; 83690; 85025; 96372; 99284; A9270; J1170; 99283

== ENCOUNTER 2017-05-25 07:53 | Emergency (ER) | payer BC, MEDICARE ==
[2017-05-25] MEDS ORDERED: Metoclopramide 10 MG/2 ML SDV IM ONE (08:24)
[2017-05-25] MEDS ORDERED: HYDROmorphone 1 MG/ML Syringe IM ONE (08:25)
--- NOTE | 2017-05-25 08:29 | EDM.PDOC ---
ED HPI GENERAL MEDICAL PROBLEM - General Chief Complaint: Abdominal Pain Stated Complaint: ABDOMINAL PAIN Time Seen by Provider: 05/25/17 08:24 Source of Information: Reports: Patient, Family (spouse) History Limitations: Reports: No Limitations - History of Present Illness INITIAL COMMENTS - FREE TEXT/NARRATIVE: 41-year-old female presents to the ED with severe left upper quadrant epigastric pain rating through to her back. Pain is worse in her back and it's ever been. Patient has a history of chronic pancreatitis. With this for over a year. Was recently down to the [facility] and had a stent placed which lasted for about 3 weeks until it dislodged. It really didn't seem to help the pain either. The consideration at the [facility] is that she will likely require surgical intervention on her pancreas to redirect drainage. Over the last week she has suffered increased pain and inability to eat. She is living on clear fluids. I note that she is not losing weight however. She reports that she has nausea and vomiting of bilious material. No hematemesis. Stools tend to be loose due to steatorrhea. She has tried a course of pancreatic enzyme supplements which did not help her digest her food. Her here seeking pain management. [place] issue in terms that she has very little veins for access for fluid replacement therapy. She was here on the sixth of the month I believe and lipase 566 at that time. She's been using oxycodone 5/3/25 milligrams tablets at home with minimal relief although at times she can keep them down even with Zofran sublingually. Today she rates the pain as 10 out of 10. Anus but not to make her cry. Plans are to head back to [place] but is not until around mid June for reconsultation. Unclear whether she'll have surgery at that time. Onset: Gradual Onset Date: 05/20/17 Duration: Day(s):, Constant, Getting Worse Location: Reports: Abdomen, Back (Radiates through her mid low back.) Quality: Reports: Ache, Pressure, Other Severity: Severe Improves with: Reports: None (10 out of 10.) Worsens with: Reports: None Context: 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. 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 Zofran sublingually.) Left Upper Back Pain Score (Numeric/FACES): 10 - Related Data Allergies Allergy/AdvReac Type Severity Reaction Status Date / Time metoclopramide HCl Allergy Itching Verified 05/17/17 08:44 [From Reglan] buprenorphine [From Butrans] AdvReac Other Verified 05/17/17 08:44 ketorolac tromethamine AdvReac Stomach Verified 05/17/17 08:44 [From Toradol] Upset prochlorperazine AdvReac Vomiting Verified 05/17/17 08:44 [From Compazine] Home Meds: Home Meds Levothyroxine Sodium [Synthroid] 200 mcg PO DAILY 01/13/17 [History] Ondansetron HCl [Zofran] 4 mg PO Q6H PRN 01/18/17 [History] Gabapentin [Neurontin] 1,200 mg PO TID 04/25/17 [History] Temazepam [Restoril] 15 mg PO BEDTIME 04/25/17 [History] Ondansetron [Zofran ODT] 4 mg PO Q4H PRN #30 tab.dis 05/14/17 [Rx] oxyCODONE HCl/Acetaminophen [Percocet 5-325 mg Tablet] 1 - 2 each PO Q6HR PRN # 20 tablet 05/21/17 [Rx] oxyCODONE HCl/Acetaminophen [Percocet 10-325 mg Tablet] 1 each PO Q4H PRN #30 tablet 05/25/17 [Rx] Past Medical History - Past Health History Medical/Surgical History: Denies Medical/Surgical History HEENT History: Reports: Glaucoma Other Respiratory History: cough RLQ Gastrointestinal History: Reports: Pancreatitis, Other (See Below) Other Gastrointestinal History: chronic pancreatitis, fatty pancreas Other OB/BYN History: c section x3, tubes tied Musculoskeletal History: Reports: Arthritis Neurological History: Reports: TIA, Other (See Below) Other Neuro History: pseudotumor, shunt Psychiatric History: Reports: Addiction, Anxiety, Emotional Problems Endocrine/Metabolic History: Reports: Hypothyroidism - Infectious Disease History Infectious Disease History: Reports: C-Difficile Other Infectious Disease History: contact precautions in place - Past Surgical History HEENT Surgical History: Reports: Oral Surgery GI Surgical History: Reports: Appendectomy, Bariatric Procedure, Cholecystectomy , ERCP Female Surgical History: Reports: Section, Tubal Ligation Social & Family History - Family History Family Medical History: Noncontributory Cardiac: Reports: Bypass, Hypertension, [place] Respiratory: Reports: Asthma Oncologic: Reports: Colon - Tobacco Use Smoking Status *Q: Unknown Ever Smoked Packs/Tins Daily: 1 Used Tobacco, but Quit: Yes Month Tobacco Last Used: 23 years Second Hand Smoke Exposure: No - Caffeine Use Caffeine Use: Reports: None - Alcohol Use Days Per Week of Alcohol Use: 0 - Recreational Drug Use Recreational Drug Use: No Drug Use in Last 12 Months: No - Living Situation & Occupation Living situation: Reports: , with Spouse Occupation: Unemployed ED ROS GENERAL - Review of Systems Review Of Systems: See Below Constitutional: Reports: Chills, Malaise, Weakness, Fatigue, Weight Loss. Denies: Fever HEENT: Reports: No Symptoms Respiratory: Reports: No Symptoms Cardiovascular: Reports: No Symptoms Endocrine: Reports: Fatigue GI/Abdominal: Reports: Abdominal Pain, Diarrhea (See history of present illness loose stools.), Nausea, Vomiting (Bilious material) Musculoskeletal: Reports: Back Pain (Referred from the abdomen into her mid back.) Skin: Reports: No Symptoms Neurological: Reports: No Symptoms Psychiatric: Reports: No Symptoms ED EXAM, GI/ABD - Physical Exam Exam: See Below Exam Limited By: No Limitations General Appearance: Alert, WD/WN, Mild Distress Eyes: Bilateral: Normal Appearance (No jaundice.) Throat/Mouth: Other Head: Atraumatic, Normocephalic (Tongue is dry and coated.) Neck: Normal Inspection, Supple, Non-Tender, Full Range of Motion. No: Lymphadenopathy (L), Lymphadenopathy (R) Respiratory/Chest: No Respiratory Distress, Lungs Clear, Normal Breath Sounds, No Accessory Muscle Use, Chest Non-Tender Cardiovascular: Normal Peripheral Pulses, Regular Rate, Rhythm, No Edema, No Gallop, No Murmur, No Rub GI/Abdominal: No Distention, Hypoactive Bowel Sounds, Tenderness, Other ( Abdominal girth limits ability to palpate solid organs.). No: Guarding, Rebound (Left upper quadrant epigastrium with no guarding or rebound.), Rigidity , Hepatomegaly, Splenomegaly, Hernia Back Exam: CVA Tenderness (L), Decreased Range of Motion. No: CVA Tenderness (R ) Extremities: Normal Inspection, Normal Range of Motion, Non-Tender, No Pedal Edema, Normal Capillary Refill Neurological: Alert, Oriented, CN II-XII Intact, Normal Cognition, Normal Gait, Normal Reflexes Psychiatric: Normal Affect, Normal Mood Skin Exam: Warm, Dry, Intact, Normal Color, No Rash Course - Vital Signs Last Recorded V/S: Last Vital Signs Temp 36.9 C 05/25/17 08:01 Pulse 62 05/25/17 08:01 Resp 18 05/25/17 08:01 BP 125/82 05/25/17 08:01 Pulse Ox 98 05/25/17 08:01 Orthostatic Blood Pressure [ 125/87 Standing] Orthostatic Blood Pressure [ 130/90 Sitting] Orthostatic Blood Pressure [ 125/82 Supine] - Orders/Labs/Meds Orders: Active Orders 24 hr Category Date Time Status CBC WITH MANUAL DIFF [HEME] Stat Lab 05/25/17 08:38 Results HYDROmorphone [Dilaudid] Med 05/25/17 09:22 Once 2 mg IVPUSH ONETIME ONE diphenhydrAMINE [Benadryl] Med 05/25/17 09:23 Once 50 mg IM ONETIME ONE Labs: Laboratory Tests 05/25/17 05/25/17 05/25/17 Range/Units 08:38 08:38 08:38 WBC 6.71 (3.98-10.04) K/mm3 RBC 3.83 L (3.98-5.22) M/mm3 Hgb 11.2 (11.2-15.7) gm/L Hct 35.1 (34.1-44.9) % MCV 91.6 (79.4-94.8) fl MCH 29.2 (25.6-32.2) pg MCHC 31.9 L (32.2-35.5) g/dl RDW Std Deviation 46.9 H (36.4-46.3) fL Plt Count 275 (182-369) K/mm3 MPV 10.2 (9.4-12.3) fl Sodium 140 (136-145) mEq/L Potassium 3.8 (3.5-5.1) mEq/L Chloride 102 (98-107) mEq/L Carbon Dioxide 28 (21-32) mEq/L Anion Gap 13.8 (5-15) BUN 6 L (7-18) mg/dL Creatinine 1.1 H (0.55-1.02) mg/dL Est Cr Clr Drug Dosing TNP Estimated GFR (MDRD) 54 (>60) mL/min BUN/Creatinine Ratio 5.5 L (14-18) Glucose 90 (74-106) mg/dL Calcium 8.8 (8.5-10.1) mg/dL Magnesium 1.7 L (1.8-2.4) mg/dl Total Bilirubin 0.3 (0.2-1.0) mg/dL AST 26 (15-37) U/L ALT 22 (14-59) U/L Alkaline Phosphatase 54 (46-116) U/L C-Reactive Protein < 0.2 (<1.0) mg/dL Total Protein 7.8 (6.4-8.2) g/dl Albumin 3.7 (3.4-5.0) g/dl Globulin 4.1 gm/dL Albumin/Globulin Ratio 0.9 L (1-2) Lipase 269 (73-393) U/L Meds: Medications Discontinued Medications Generic Name Dose Route Start Last Admin Trade Name Freq PRN Reason Stop Dose Admin Hydromorphone HCl 2 mg 05/25/17 08:25 05/25/17 08:38 Dilaudid IM 05/25/17 08:26 2 mg ONETIME ONE Administration Metoclopramide HCl 10 mg 05/25/17 08:24 05/25/17 08:38 Reglan IM 05/25/17 08:25 10 mg ONETIME ONE Administration - Radiology Interpretation Free Text/Narrative:: 41-year-old female presents to the ED with an acute flareup of her chronic pancreatitis. Severe back pain perhaps worse than she's ever experience she relates. Pain left upper quadrant epigastric region to the mid back. Associated nausea vomiting and loose stools due to steatorrhea. Patient has had chronic problems with her pancreas for over a year. She was seen in follow-up at the [facility] where she had a stent placed but the doctor was not very hopeful that it would be helpful improve not to be. The stent came out on its own after about 3 weeks. At this point time she is looking at major reconstructive surgery of her pancreas as the only potential for cure. She is mildly dehydrated this time. Orthostatics were okay however. She comes basically seeking pain management. IV access is always been a major problem. She will therefore be given Dilaudid 2 mg IV with Reglan 10 mg IV for pain relief. Labs to be obtained to include a serum lipase and CRP. - Re-Assessments/Exams Free Text/Narrative Re-Assessment/Exam: 05/25/17 09:19 white count is 6.71 differential is pending hemoglobin is a little low at 11.2. Hematocrit is 35.1 plan is 20 75,000. Chemistry shows a sodium of 140 potassium 3.84-102 bicarbonate 28. Anion gap is 13.8. Creatinine is 1.1 be when his 6. Lipase today is 269. Coarse this doesn't always reflect the severity of her pancreatitis. 05/25/17 09:23 on reexamination patient states the pain is still about a 7 out of 10. Her for repeat Dilaudid 2 mg IM with 50 mrem of Benadryl as she got quite agitated and mild dyskinesia from the Reglan. This may be due to using Zofran 8 mg and recently as well. Has Zofran at home I will increase her oxycodone to the 10/3/25 milligrams tablets to soup and get her through this acute flare. She'll continue use clear fluids such as Gatorade Powerade to maintain hydration etc. resume light diet when able. Departure - Departure Time of Disposition: 09:24 Disposition: Home, Self-Care 01 Condition: Fair Clinical Impression: Chronic interstitial pancreatitis - Discharge Information Prescriptions: oxyCODONE HCl/Acetaminophen [Percocet 10-325 mg Tablet] 1 each PO Q4H PRN #30 tablet PRN Reason: pancreatitis pain. Forms: ED Department Discharge Additional Instructions: Evaluation in the emergency room today in regards to acute flare of chronic pancreatitis with severe pain in epigastrium left upper quadrant readings to to the mid back. This indicates acute flare of pancreatitis. Enzymes today weren't too bad lipase was 269 and hemoglobin is 11.2. The other electrodes are doing okay so you're taking adequate fluids in between vomiting. Continue to use Zofran 8 mg every 6 hours as necessary for nausea vomiting relief and oxycodone 10/3/25 milligrams tablets one or 2 every 4-6 hours as necessary for pain relief. Clear fluids such as Gatorade Powerade to maintain hydration until the acute attack settles down and then reintroduce food as tolerated. - My Orders Last 24 Hours: My Active Orders 05/25/17 08:38 CBC WITH MANUAL DIFF [HEME] Stat 05/25/17 09:22 HYDROmorphone [Dilaudid] 2 mg IVPUSH ONETIME ONE 05/25/17 09:23 diphenhydrAMINE [Benadryl] 50 mg IM ONETIME ONE - Assessment/Plan Last 24 Hours: My Active Orders 05/25/17 08:38 CBC WITH MANUAL DIFF [HEME] Stat 05/25/17 09:22 HYDROmorphone [Dilaudid] 2 mg IVPUSH ONETIME ONE 05/25/17 09:23 diphenhydrAMINE [Benadryl] 50 mg IM ONETIME ONE
[2017-05-25] MEDS ORDERED: HYDROmorphone 1 MG/ML Syringe IVPUSH ONE (09:22)
[2017-05-25] MEDS ORDERED: diphenhydrAMINE 50 MG/ML SDV IM ONE (09:23)
[2017-05-25] MEDS ORDERED: HYDROmorphone 1 MG/ML Syringe IM STA (09:35)
[2017-05-25 10:18] VITALS: BP 125/88
== END 2017-05-25 10:00 | disposition home or self-care (01) ==
LOC: JD.ED 07:53
DX: K86.1 Other chronic pancreatitis (principal); F41.9 Anxiety disorder, unspecified; E03.9 Hypothyroidism, unspecified; M19.90 Unspecified osteoarthritis, unspecified site; Z88.6 Allergy status to analgesic agent; Z88.8 Allergy status to other drugs, medicaments and biological substances; Z79.899 Other long term (current) drug therapy; Z86.73 Personal history of transient ischemic attack (TIA), and cerebral infarction without residual deficits; Z90.49 Acquired absence of other specified parts of digestive tract
CPT/HCPCS: 36415; 80053; 83690; 83735; 85025; 86140; 96372; 99284; J1170; J1200; J2765

== ENCOUNTER 2017-06-03 10:20 | Emergency (ER) | payer BC, MEDICARE ==
[2017-06-03 10:37] VITALS: BP 131/102
[2017-06-03] MEDS ORDERED: HYDROmorphone 1 MG/ML Syringe IM ONE ×2 (10:44→11:56)
[2017-06-03] MEDS ORDERED: diphenhydrAMINE 50 MG/ML SDV IM ONE (10:45)
[2017-06-03] MEDS ORDERED: Metoclopramide 10 MG/2 ML SDV IM ONE (10:45)
--- NOTE | 2017-06-03 10:49 | EDM.PDOC ---
ED HPI GENERAL MEDICAL PROBLEM - General Chief Complaint: Abdominal Pain Stated Complaint: PANCRETITIS Time Seen by Provider: 06/03/17 10:44 Source of Information: Reports: Patient History Limitations: Reports: No Limitations - History of Present Illness INITIAL COMMENTS - FREE TEXT/NARRATIVE: 41-year-old female presents once again to the ED with an acute flare of left upper quadrant epigastric abdominal pain that radiates through to her back. Currently she rates the pain as 10 out of 10. By history she has a history of chronic pancreatitis with failure of stenting recently done in [place]. She is going to see them again in early June with a view to possible pancreatic resection. Inside seen her last which is a week ago she states she been living on oatmeal and Gatorade and fluids and doing pretty well stools in fact even started to form up. About 0400 hrs. this morning the pain returned and is constant and severe. She decided she could no longer stand the pain as pain pills wouldn't stay down at home and elected to come to the ED. Very hard IV stick and therefore medications are usually given intramuscularly. Her amylase and lipase levels fluctuate as what one might anticipate and chronic pelvic otitis. There was high as 590 last week and when the head done the last week there were 293 lipase. They will be rechecked today Onset: Today Onset Date: 06/03/17 Onset Time: 04:00 Duration: Hour(s): Location: Reports: Abdomen (Epigastric left upper quadrant rating through to her left mid back. Characteristic pain of her pancreatitis.) Quality: Reports: Pressure, Throbbing, Other Severity: Severe (Deep aching pain) Improves with: Reports: None Worsens with: Reports: Eating Context: 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 (Known chronic pancreatitis.). 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 4 mg sublingual.) Left Upper Abdomen Pain Score (Numeric/FACES): 8 - Related Data Allergies Allergy/AdvReac Type Severity Reaction Status Date / Time metoclopramide HCl Allergy Itching Verified 05/17/17 08:44 [From Reglan] buprenorphine [From Butrans] AdvReac Other Verified 05/17/17 08:44 ketorolac tromethamine AdvReac Stomach Verified 05/17/17 08:44 [From Toradol] Upset prochlorperazine AdvReac Vomiting Verified 05/17/17 08:44 [From Compazine] Home Meds: Home Meds Levothyroxine Sodium [Synthroid] 200 mcg PO DAILY 01/13/17 [History] Ondansetron HCl [Zofran] 4 mg PO Q6H PRN 01/18/17 [History] Gabapentin [Neurontin] 1,200 mg PO TID 04/25/17 [History] Temazepam [Restoril] 15 mg PO BEDTIME 04/25/17 [History] Ondansetron [Zofran ODT] 4 mg PO Q4H PRN #30 tab.dis 05/14/17 [Rx] oxyCODONE HCl/Acetaminophen [Percocet 5-325 mg Tablet] 1 - 2 each PO Q6HR PRN # 20 tablet 05/21/17 [Rx] oxyCODONE HCl/Acetaminophen [Percocet 10-325 mg Tablet] 1 each PO Q4H PRN #30 tablet 05/25/17 [Rx] Past Medical History - Past Health History Medical/Surgical History: Denies Medical/Surgical History HEENT History: Reports: Glaucoma Other Respiratory History: cough RLQ Gastrointestinal History: Reports: Pancreatitis, Other (See Below) Other Gastrointestinal History: chronic pancreatitis, fatty pancreas Other OB/BYN History: c section x3, tubes tied Musculoskeletal History: Reports: Arthritis Neurological History: Reports: TIA, Other (See Below) Other Neuro History: pseudotumor, shunt Psychiatric History: Reports: Addiction, Anxiety, Emotional Problems Endocrine/Metabolic History: Reports: Hypothyroidism - Infectious Disease History Infectious Disease History: Reports: C-Difficile Other Infectious Disease History: contact precautions in place - Past Surgical History HEENT Surgical History: Reports: Oral Surgery GI Surgical History: Reports: Appendectomy, Bariatric Procedure, Cholecystectomy , ERCP Female Surgical History: Reports: Section, Tubal Ligation Social & Family History - Family History Family Medical History: Noncontributory Cardiac: Reports: Bypass, Hypertension, [place] Respiratory: Reports: Asthma Oncologic: Reports: Colon - Tobacco Use Smoking Status *Q: Unknown Ever Smoked Packs/Tins Daily: 1 Used Tobacco, but Quit: Yes Month Tobacco Last Used: 23 years Second Hand Smoke Exposure: No - Caffeine Use Caffeine Use: Reports: None - Alcohol Use Days Per Week of Alcohol Use: 0 - Recreational Drug Use Recreational Drug Use: No Drug Use in Last 12 Months: No - Living Situation & Occupation Living situation: Reports: , with Spouse Occupation: Unemployed ED ROS GENERAL - Review of Systems Review Of Systems: See Below Constitutional: Reports: Fatigue, Decreased Appetite, Weight Loss. Denies: Fever, Chills, Malaise, Weakness HEENT: Reports: No Symptoms Respiratory: Reports: No Symptoms Cardiovascular: Reports: No Symptoms Endocrine: Reports: No Symptoms GI/Abdominal: Reports: Abdominal Pain, Diarrhea (Stools have been loose presumably due to malabsorption from pancreatic dysfunction. They have been semi -formed up with just eating oatmeal and clear fluids the last week.), Decreased Appetite (See history of present illness) : Reports: No Symptoms Musculoskeletal: Reports: No Symptoms Skin: Reports: No Symptoms Neurological: Reports: Headache (Has a low-grade headache almost all the time for benign intracranial hypertension.) Psychiatric: Reports: Depression Hematologic/Lymphatic: Reports: No Symptoms Immunologic: Reports: No Symptoms (From chronic illness.) ED EXAM, GI/ABD - Physical Exam Exam: See Below Exam Limited By: No Limitations General Appearance: Alert, WD/WN, No Apparent Distress Eyes: Bilateral: Normal Appearance (No jaundice) Throat/Mouth: Normal Inspection, Normal Lips, Normal Teeth, Normal Oropharynx, Perioral Cyanosis, Other (Tongue is still moist.) Head: Atraumatic Neck: Normal Inspection, Supple, Non-Tender. No: Full Range of Motion, Lymphadenopathy (R) Respiratory/Chest: No Respiratory Distress, Lungs Clear, Normal Breath Sounds, No Accessory Muscle Use Cardiovascular: Normal Peripheral Pulses, Regular Rate, Rhythm, No Edema, No Gallop, No Murmur, Other (Blood pressures elevated at 16/12/01.) GI/Abdominal Exam: Guarding, Tender, Other (Hypoactive bowel sounds.). No: Rigid, Rebound (Epigastric and left upper quadrant with guarding. No rebound tenderness) Back Exam: Normal Inspection, Full Range of Motion, CVA Tenderness (L). No: CVA Tenderness (R) (Mild) Extremities: Normal Inspection, Normal Range of Motion, Non-Tender, No Pedal Edema, Normal Capillary Refill Neurological: Alert, Oriented, CN II-XII Intact, Normal Cognition, Normal Gait Psychiatric: Normal Affect, Normal Mood Skin Exam: Warm, Dry, Intact, Normal Color, No Rash Course - Vital Signs Last Recorded V/S: Last Vital Signs Temp 36.2 C 06/03/17 10:33 Pulse 72 06/03/17 10:33 Resp 16 06/03/17 10:33 BP 131/102 H 06/03/17 10:33 Pulse Ox 100 06/03/17 10:33 - Orders/Labs/Meds Labs: Laboratory Tests 06/03/17 06/03/17 Range/Units 11:07 11:07 WBC 5.55 (3.98-10.04) K/mm3 RBC 3.72 L (3.98-5.22) M/mm3 Hgb 11.0 L (11.2-15.7) gm/L Hct 34.0 L (34.1-44.9) % MCV 91.4 (79.4-94.8) fl MCH 29.6 (25.6-32.2) pg MCHC 32.4 (32.2-35.5) g/dl RDW Std Deviation 46.5 H (36.4-46.3) fL Plt Count 212 (182-369) K/mm3 MPV 10.2 (9.4-12.3) fl Neutrophils % (Manual) 65 H (40-60) % Band Neutrophils % 0 (0-10) % Lymphocytes % (Manual) 29 (20-40) % Atypical Lymphs % 0 % Monocytes % (Manual) 4 (2-10) % Eosinophils % (Manual) 2 (0.7-5.8) % Basophils % (Manual) 0 L (0.1-1.2) Platelet Estimate Adequate RBC Morph Comment Normal Sodium 140 (136-145) mEq/L Potassium 4.2 (3.5-5.1) mEq/L Chloride 103 (98-107) mEq/L Carbon Dioxide 30 (21-32) mEq/L Anion Gap 11.2 (5-15) BUN 10 (7-18) mg/dL Creatinine 1.0 (0.55-1.02) mg/dL Est Cr Clr Drug Dosing TNP Estimated GFR (MDRD) > 60 (>60) mL/min BUN/Creatinine Ratio 10.0 L (14-18) Glucose 84 (74-106) mg/dL Calcium 9.0 (8.5-10.1) mg/dL Total Bilirubin 0.3 (0.2-1.0) mg/dL AST 33 (15-37) U/L ALT 26 (14-59) U/L Alkaline Phosphatase 56 (46-116) U/L Total Protein 8.3 H (6.4-8.2) g/dl Albumin 4.0 (3.4-5.0) g/dl Globulin 4.3 gm/dL Albumin/Globulin Ratio 0.9 L (1-2) Amylase 71 (25-115) U/L Lipase 370 (73-393) U/L Meds: Medications Discontinued Medications Generic Name Dose Route Start Last Admin Trade Name Freq PRN Reason Stop Dose Admin Diphenhydramine HCl 25 mg 06/03/17 10:45 06/03/17 11:06 Benadryl IM 06/03/17 10:46 25 mg ONETIME ONE Administration Hydromorphone HCl 2 mg 06/03/17 10:44 06/03/17 11:07 Dilaudid IM 06/03/17 10:45 2 mg ONETIME ONE Administration Hydromorphone HCl 1.5 mg 06/03/17 11:56 06/03/17 12:11 Dilaudid IM 06/03/17 11:57 1.5 mg ONETIME ONE Administration Metoclopramide HCl 7.5 mg 06/03/17 10:45 06/03/17 11:06 Reglan IM 06/03/17 10:46 7.5 mg ONETIME ONE Administration - Radiology Interpretation Free Text/Narrative:: 41-year-old female presents the ED with acute onset of left upper quadrant epigastric abdominal pain radiate through to her left mid back. This pain is characteristic of what she experiences when her pancreatitis flares up. She has a history of chronic pancreatitis and is waiting definitive management perhaps surgical resection of her pancreas in [place] in the early part of June. She 's had a stent placed but did fail to improve her pain and it fell out after 3 weeks. This was done in April. On examination she is nauseated she's vomited twice this morning bilious material. Pain is characteristic of her pancreatitis pain in the past. Very tender to the left upper quadrant and epigastrium with no rebound tenderness but mild guarding. Plan routine labs including lipase and amylase levels. Given 2 mg of Dilaudid IM with Reglan 7.5 mg IM and Benadryl 25 mg IM. She did express some akathisia last time with a full dose of Reglan 10 mg but she does not have a true allergy to the medication. Besides at all the other anti-emetics will present produce similar results. It really depends when she took her last Zofran which she took about 3 hours ago. Combination causes the dyskinesia and akathisia. - Re-Assessments/Exams Free Text/Narrative Re-Assessment/Exam: 06/03/17 11:57 labs reveal a normal white count and differential. Hemoglobin is a little low 11.2 and was last time 2. Chemistries essentially normal bicarbonate was 30 which is against much vomiting. The lipase today was 370. Patient is feeling improved although pain is said to come back and we bit. I will therefore give her Dilaudid 1.5 mg IV. Her son drove her down and he will build to provide a ride back to [place] for her. Departure - Departure Time of Disposition: 12:16 Disposition: Home, Self-Care 01 Condition: Fair Clinical Impression: Chronic relapsing pancreatitis - Discharge Information Instructions: Acute Pancreatitis Referrals: Rik Walls PA-C [Primary Care Provider] - Additional Instructions: Chronic relapsing pancreatitis. Flareup of severe pain overnight with associated nausea and vomiting. Treated in the ED with pain medication Dilaudid 3.5 mg and Reglan 7.5 mg and Benadryl 25 mg to relieve pain and nausea. Continue clear fluid and light diet as you have been doing. Continue pain medication as needed and anti-nausea medication as needed. Plan to follow-up in [place] as planned.
== END 2017-06-03 12:20 | disposition home or self-care (01) ==
LOC: JD.ED 10:20
DX: K86.1 Other chronic pancreatitis (principal); F41.9 Anxiety disorder, unspecified; E03.9 Hypothyroidism, unspecified; M19.90 Unspecified osteoarthritis, unspecified site; Z86.73 Personal history of transient ischemic attack (TIA), and cerebral infarction without residual deficits; Z90.49 Acquired absence of other specified parts of digestive tract; Z98.84 Bariatric surgery status; Z98.51 Tubal ligation status; Z98.890 Other specified postprocedural states; Z79.899 Other long term (current) drug therapy; Z88.6 Allergy status to analgesic agent; Z88.8 Allergy status to other drugs, medicaments and biological substances
CPT/HCPCS: 36415; 80053; 82150; 83690; 85025; 96372; 99284; J1170; J1200; J2765

== ENCOUNTER 2017-06-09 09:07 | Emergency (ER) | payer BC, MEDICARE ==
[2017-06-09 09:19] VITALS: BP 128/86
[2017-06-09] MEDS ORDERED: HYDROmorphone 1 MG/ML Syringe IM ONE ×2 (09:35→10:40)
[2017-06-09] MEDS ORDERED: Ondansetron 4 MG Tab.DIS PO ONE (09:35)
--- NOTE | 2017-06-09 10:14 | EDM.PDOC ---
ED HPI GENERAL MEDICAL PROBLEM - General Chief Complaint: Abdominal Pain Stated Complaint: PANCREATITIS Time Seen by Provider: 06/09/17 09:23 Source of Information: Reports: Patient History Limitations: Reports: No Limitations - History of Present Illness INITIAL COMMENTS - FREE TEXT/NARRATIVE: The patient presents with left upper quadrant abdominal pain. She has chronic pancreatitis. She is seeing [facility] for this. She went there earlier in the year and had a stent but it came out and she is having pain again. She has been here multiple times for the same. She called there again today and they told her to come down there or go to the ER. They have worked her into their schedule next week. She has nausea and vomiting with it. Onset: Gradual Duration: Week(s): Location: Reports: Abdomen Quality: Reports: Sharp Severity: Severe Improves with: Reports: None Worsens with: Reports: None Associated Symptoms: Reports: Nausea/Vomiting. Denies: Chest Pain, Cough, Fever /Chills, Headaches, Shortness of Breath Left Upper Abdomen Pain Score (Numeric/FACES): 8 - Related Data Allergies Allergy/AdvReac Type Severity Reaction Status Date / Time metoclopramide HCl Allergy Itching Verified 06/09/17 09:19 [From Reglan] buprenorphine [From Butrans] AdvReac Other Verified 06/09/17 09:19 ketorolac tromethamine AdvReac Stomach Verified 06/09/17 09:19 [From Toradol] Upset prochlorperazine AdvReac Vomiting Verified 06/09/17 09:19 [From Compazine] Home Meds: Home Meds Levothyroxine Sodium [Synthroid] 200 mcg PO DAILY 01/13/17 [History] Gabapentin [Neurontin] 1,200 mg PO TID PRN 04/25/17 [History] Temazepam [Restoril] 15 mg PO BEDTIME 04/25/17 [History] Ondansetron [Zofran ODT] 4 mg PO Q4H PRN #30 tab.dis 05/14/17 [Rx] oxyCODONE HCl/Acetaminophen [Percocet 10-325 mg Tablet] 1 each PO Q4H PRN #30 tablet 05/25/17 [Rx] oxyCODONE HCl/Acetaminophen [Percocet 10-325 mg Tablet] 1 each PO Q6HR PRN #30 tablet 06/09/17 [Rx] Past Medical History - Past Health History Medical/Surgical History: Denies Medical/Surgical History HEENT History: Reports: Glaucoma Other Respiratory History: cough RLQ Gastrointestinal History: Reports: Pancreatitis, Other (See Below) Other Gastrointestinal History: chronic pancreatitis, fatty pancreas Other OB/BYN History: c section x3, tubes tied Musculoskeletal History: Reports: Arthritis Neurological History: Reports: TIA, Other (See Below) Other Neuro History: pseudotumor, shunt Psychiatric History: Reports: Addiction, Anxiety, Emotional Problems Endocrine/Metabolic History: Reports: Hypothyroidism - Infectious Disease History Infectious Disease History: Reports: C-Difficile Other Infectious Disease History: contact precautions in place - Past Surgical History HEENT Surgical History: Reports: Oral Surgery GI Surgical History: Reports: Appendectomy, Bariatric Procedure, Cholecystectomy , ERCP Female Surgical History: Reports: Section, Tubal Ligation Social & Family History - Family History Family Medical History: Noncontributory Cardiac: Reports: Bypass, Hypertension, [place] Respiratory: Reports: Asthma Oncologic: Reports: Colon - Tobacco Use Smoking Status *Q: Never Smoker Packs/Tins Daily: 1 Used Tobacco, but Quit: Yes Month Tobacco Last Used: 23 years Second Hand Smoke Exposure: No - Caffeine Use Caffeine Use: Reports: None - Alcohol Use Days Per Week of Alcohol Use: 0 - Recreational Drug Use Recreational Drug Use: No Drug Use in Last 12 Months: No - Living Situation & Occupation Living situation: Reports: , with Spouse Occupation: Unemployed ED ROS GENERAL - Review of Systems Review Of Systems: See Below Constitutional: Reports: No Symptoms HEENT: Reports: No Symptoms Respiratory: Reports: No Symptoms Cardiovascular: Reports: No Symptoms Endocrine: Reports: No Symptoms GI/Abdominal: Reports: Abdominal Pain, Nausea, Vomiting : Reports: No Symptoms Musculoskeletal: Reports: No Symptoms ED EXAM, GI/ABD - Physical Exam Exam: See Below Exam Limited By: No Limitations General Appearance: Alert, No Apparent Distress Ears: Normal External Exam Nose: Normal Inspection Head: Atraumatic, Normocephalic Neck: Normal Inspection Respiratory/Chest: No Respiratory Distress, Lungs Clear, Normal Breath Sounds Cardiovascular: Regular Rate, Rhythm, No Edema, No Murmur GI/Abdominal Exam: Soft, No Organomegaly, No Mass, Tender (Moderate to the LUQ) Course - Vital Signs Last Recorded V/S: Last Vital Signs Temp 98.2 F 06/09/17 09:16 Pulse 80 06/09/17 09:16 Resp 14 06/09/17 09:16 BP 128/86 06/09/17 09:16 Pulse Ox 99 06/09/17 09:16 - Orders/Labs/Meds Orders: Active Orders 24 hr Category Date Time Status HYDROmorphone [Dilaudid] Med 06/09/17 10:40 Once 1 mg IM ONETIME ONE Labs: Laboratory Tests 06/09/17 06/09/17 Range/Units 09:45 09:45 WBC 6.66 (3.98-10.04) K/mm3 RBC 3.77 L (3.98-5.22) M/mm3 Hgb 11.1 L (11.2-15.7) gm/L Hct 34.6 (34.1-44.9) % MCV 91.8 (79.4-94.8) fl MCH 29.4 (25.6-32.2) pg MCHC 32.1 L (32.2-35.5) g/dl RDW Std Deviation 47.3 H (36.4-46.3) fL Plt Count 177 L (182-369) K/mm3 MPV 10.5 (9.4-12.3) fl Neut % (Auto) 53.7 (34.0-71.1) % Lymph % (Auto) 35.0 (19.3-51.7) % [place] % (Auto) 8.6 (4.7-12.5) % Eos % (Auto) 2.0 (0.7-5.8) Baso % (Auto) 0.5 (0.1-1.2) % Neut # (Auto) 3.59 (1.56-6.13) K/mm3 Lymph # (Auto) 2.33 (1.18-3.74) K/mm3 [place] # (Auto) 0.57 H (0.24-0.36) K/mm3 Eos # (Auto) 0.13 (0.04-0.36) K/mm3 Baso # (Auto) 0.03 (0.01-0.08) K/mm3 Sodium 141 (136-145) mEq/L Potassium 4.1 (3.5-5.1) mEq/L Chloride 104 (98-107) mEq/L Carbon Dioxide 27 (21-32) mEq/L Anion Gap 14.1 (5-15) BUN 9 (7-18) mg/dL Creatinine 1.0 (0.55-1.02) mg/dL Est Cr Clr Drug Dosing TNP Estimated GFR (MDRD) > 60 (>60) mL/min BUN/Creatinine Ratio 9.0 L (14-18) Glucose 90 (74-106) mg/dL Calcium 9.2 (8.5-10.1) mg/dL Total Bilirubin 0.3 (0.2-1.0) mg/dL AST 29 (15-37) U/L ALT 23 (14-59) U/L Alkaline Phosphatase 63 (46-116) U/L Total Protein 8.4 H (6.4-8.2) g/dl Albumin 4.0 (3.4-5.0) g/dl Globulin 4.4 gm/dL Albumin/Globulin Ratio 0.9 L (1-2) Lipase 400 H (73-393) U/L Meds: Medications Discontinued Medications Generic Name Dose Route Start Last Admin Trade Name Freq PRN Reason Stop Dose Admin Hydromorphone HCl 2 mg 06/09/17 09:35 06/09/17 09:45 Dilaudid IM 06/09/17 09:36 2 mg ONETIME ONE Administration Ondansetron HCl 4 mg 06/09/17 09:35 06/09/17 09:45 Zofran Odt PO 06/09/17 09:36 4 mg ONETIME ONE Administration - Re-Assessments/Exams Free Text/Narrative Re-Assessment/Exam: 06/09/17 10:14 I ordered labs and dilaudid 2mg IM and zofran 4mg ODT. 06/09/17 10:40 Her CBC looks good. Her lipase was elevated to 400. Her pain is coming back. I will give her another dose of dilaudid and discharge her. Departure - Departure Time of Disposition: 10:45 Disposition: Home, Self-Care 01 Condition: Good Clinical Impression: Abdominal pain, Vomiting, History of chronic pancreatitis - Discharge Information Prescriptions: oxyCODONE HCl/Acetaminophen [Percocet 10-325 mg Tablet] 1 each PO Q6HR PRN #30 tablet PRN Reason: Pain Referrals: Rik Walls PA-C [Primary Care Provider] - Forms: ED Department Discharge Additional Instructions: Take your medication as prescribed. Please return if you are worse. Follow up with your doctor next week. - My Orders Last 24 Hours: My Active Orders 06/09/17 10:40 HYDROmorphone [Dilaudid] 1 mg IM ONETIME ONE - Assessment/Plan Last 24 Hours: My Active Orders 06/09/17 10:40 HYDROmorphone [Dilaudid] 1 mg IM ONETIME ONE
== END 2017-06-09 11:05 | disposition home or self-care (01) ==
LOC: JD.ED 09:07
DX: R10.12 Left upper quadrant pain (principal); F41.9 Anxiety disorder, unspecified; E03.9 Hypothyroidism, unspecified; Z90.49 Acquired absence of other specified parts of digestive tract; Z87.19 Personal history of other diseases of the digestive system; Z88.8 Allergy status to other drugs, medicaments and biological substances; Z88.6 Allergy status to analgesic agent; Z79.899 Other long term (current) drug therapy; Z86.73 Personal history of transient ischemic attack (TIA), and cerebral infarction without residual deficits
CPT/HCPCS: 36415; 80053; 83690; 85025; 96372; 99284; A9270; J1170; 99283

== ENCOUNTER 2017-06-15 10:04 | Emergency (ER) | payer BC, MEDICARE ==
[2017-06-15 10:11] VITALS: BP 152/97
[2017-06-15] MEDS ORDERED: Sodium Chloride 0.9% 10 ML Syringe FLUSH PRN (11:19)
[2017-06-15] MEDS ORDERED: Sodium Chloride 0.9% 1,000 ML IV ONE (11:19)
[2017-06-15] MEDS ORDERED: HYDROmorphone 1 MG/ML Syringe IVPUSH ONE (11:19)
[2017-06-15] MEDS ORDERED: Ondansetron 4 MG/2 ML SDV IVPUSH ONE (11:19)
--- NOTE | 2017-06-15 11:27 | EDM.PDOC ---
ED HPI GENERAL MEDICAL PROBLEM - General Chief Complaint: Abdominal Pain Stated Complaint: PANCREATITIS Time Seen by Provider: 06/15/17 11:06 Source of Information: Reports: Patient History Limitations: Reports: No Limitations - History of Present Illness INITIAL COMMENTS - FREE TEXT/NARRATIVE: Patient is a 41-year-old female presents ED complaining of left upper quadrant epigastric abdominal pain. Patient states the pain started over the weekend and has progressively gotten worse. Pain is worsened with eating. Pain initially was described as a sharp sensation that was intermittent that has grown more constant and worse that radiates to her back. She has had multiple loose stools described as being oily with no blood present. She has vomited 3 times and remains nauseated. She has been pushing the fluids but appetite has been poor. Pain is currently 8 out of 10. She denies fever/chills, chest pain, shortness of breath, blood in stool, bloody emesis, dysuria, dizziness, presyncopal episode, initial complaints. Patient has a history chronic pancreatitis and is being seen by Dr. Gutierrez at [facility]. She is scheduled to see him next Thursday for follow-up visit to discuss surgery. Patient states plans are to remove her pancreas, clean it, and reattach it. Unknown the name of the type of surgery. 2 months ago patient had similar symptoms and required transport by air to [facility] to which she was admitted. Past medical history includes: Chronic pancreatitis, hydrocephalus, ventricular shunt, opioid addiction, anxiety, depression, hypothyroidism. Current medications include: Levothyroxine, gabapentin, Restoril, Zofran, Percocet Left Upper Back Pain Score (Numeric/FACES): 9 - Related Data Allergies Allergy/AdvReac Type Severity Reaction Status Date / Time metoclopramide HCl Allergy Itching Verified 06/17/17 10:06 [From Reglan] buprenorphine [From Butrans] AdvReac Other Verified 06/17/17 10:06 ketorolac tromethamine AdvReac Stomach Verified 06/17/17 10:06 [From Toradol] Upset prochlorperazine AdvReac Vomiting Verified 06/17/17 10:06 [From Compazine] Home Meds: Home Meds Levothyroxine Sodium [Synthroid] 200 mcg PO DAILY 01/13/17 [History] Gabapentin [Neurontin] 1,200 mg PO TID PRN 04/25/17 [History] Temazepam [Restoril] 15 mg PO BEDTIME 04/25/17 [History] Ondansetron [Zofran ODT] 4 mg PO Q4H PRN #30 tab.dis 05/14/17 [Rx] oxyCODONE HCl/Acetaminophen [Percocet 10-325 mg Tablet] 1 each PO Q4H PRN #30 tablet 05/25/17 [Rx] Past Medical History - Past Health History Medical/Surgical History: Denies Medical/Surgical History HEENT History: Reports: Glaucoma Other Respiratory History: cough RLQ Gastrointestinal History: Reports: Pancreatitis, Other (See Below) Other Gastrointestinal History: chronic pancreatitis, fatty pancreas Other OB/BYN History: c section x3, tubes tied Musculoskeletal History: Reports: Arthritis Neurological History: Reports: TIA, Other (See Below) Other Neuro History: pseudotumor, shunt Psychiatric History: Reports: Addiction, Anxiety, Emotional Problems Endocrine/Metabolic History: Reports: Hypothyroidism - Infectious Disease History Infectious Disease History: Reports: C-Difficile Other Infectious Disease History: contact precautions in place - Past Surgical History HEENT Surgical History: Reports: Oral Surgery GI Surgical History: Reports: Appendectomy, Bariatric Procedure, Cholecystectomy , ERCP Female Surgical History: Reports: Section, Tubal Ligation Social & Family History - Family History Family Medical History: Noncontributory Cardiac: Reports: Bypass, Hypertension, [place] Respiratory: Reports: Asthma Oncologic: Reports: Colon - Tobacco Use Smoking Status *Q: Never Smoker Packs/Tins Daily: 1 Used Tobacco, but Quit: Yes Month Tobacco Last Used: 23 years Second Hand Smoke Exposure: No - Caffeine Use Caffeine Use: Reports: None - Alcohol Use Days Per Week of Alcohol Use: 0 - Recreational Drug Use Recreational Drug Use: No Drug Use in Last 12 Months: No - Living Situation & Occupation Living situation: Reports: , with Spouse Occupation: Unemployed ED ROS GENERAL - Review of Systems Review Of Systems: ROS reveals no pertinent complaints other than HPI. ED EXAM, GI/ABD - Physical Exam Exam: See Below Exam Limited By: No Limitations General Appearance: Alert, WD/WN, No Apparent Distress Ears: Hearing Grossly Normal Nose: Normal Inspection Throat/Mouth: Normal Voice, No Airway Compromise Head: Atraumatic, Normocephalic Neck: Normal Inspection, Supple Respiratory/Chest: No Respiratory Distress, Lungs Clear, Normal Breath Sounds, No Accessory Muscle Use Cardiovascular: Normal Peripheral Pulses, Regular Rate, Rhythm GI/Abdominal Exam: Normal Bowel Sounds, Soft, No Organomegaly, No Distention, Tender (epigastric and LUQ) (Female) Exam: Deferred Rectal (Female) Exam: Deferred Back Exam: Normal Inspection, Full Range of Motion. No: CVA Tenderness (L), CVA Tenderness (R) Extremities: Normal Inspection, Normal Range of Motion, Non-Tender, No Pedal Edema Neurological: Alert, Oriented, Normal Cognition, No Motor/Sensory Deficits Psychiatric: Normal Affect, Normal Mood Skin Exam: Warm, Dry, Intact, Normal Color Course - Vital Signs Last Recorded V/S: Last Vital Signs Temp 98.2 F 06/15/17 10:08 Pulse 70 06/15/17 10:08 Resp 20 06/15/17 10:08 BP 152/97 H 06/15/17 10:08 Pulse Ox 99 06/15/17 10:08 - Orders/Labs/Meds Labs: Laboratory Tests 06/15/17 06/15/17 06/15/17 Range/Units 11:40 11:40 12:50 WBC 5.57 (3.98-10.04) K/mm3 RBC 4.19 (3.98-5.22) M/mm3 Hgb 12.2 (11.2-15.7) gm/L Hct 37.6 (34.1-44.9) % MCV 89.7 (79.4-94.8) fl MCH 29.1 (25.6-32.2) pg MCHC 32.4 (32.2-35.5) g/dl RDW Std Deviation 47.1 H (36.4-46.3) fL Plt Count 210 (182-369) K/mm3 MPV 10.4 (9.4-12.3) fl Neut % (Auto) 61.0 (34.0-71.1) % Lymph % (Auto) 31.6 (19.3-51.7) % [place] % (Auto) 6.6 (4.7-12.5) % Eos % (Auto) 0.4 L (0.7-5.8) Baso % (Auto) 0.4 (0.1-1.2) % Neut # (Auto) 3.40 (1.56-6.13) K/mm3 Lymph # (Auto) 1.76 (1.18-3.74) K/mm3 [place] # (Auto) 0.37 H (0.24-0.36) K/mm3 Eos # (Auto) 0.02 L (0.04-0.36) K/mm3 Baso # (Auto) 0.02 (0.01-0.08) K/mm3 Sodium 141 (136-145) mEq/L Potassium 3.8 (3.5-5.1) mEq/L Chloride 102 (98-107) mEq/L Carbon Dioxide 25 (21-32) mEq/L Anion Gap 17.8 H (5-15) BUN 8 (7-18) mg/dL Creatinine 1.0 (0.55-1.02) mg/dL Est Cr Clr Drug Dosing 79.46 mL/min Estimated GFR (MDRD) > 60 (>60) mL/min BUN/Creatinine Ratio 8.0 L (14-18) Glucose 95 (74-106) mg/dL Calcium 10.4 H (8.5-10.1) mg/dL Total Bilirubin 0.6 (0.2-1.0) mg/dL AST 30 (15-37) U/L ALT 22 (14-59) U/L Alkaline Phosphatase 64 (46-116) U/L C-Reactive Protein < 0.2 (<1.0) mg/dL Total Protein 9.8 H (6.4-8.2) g/dl Albumin 4.8 (3.4-5.0) g/dl Globulin 5.0 gm/dL Albumin/Globulin Ratio 1.0 (1-2) Amylase 70 (25-115) U/L Lipase 385 (73-393) U/L Urine Color Yellow (Yellow) Urine Appearance Slt cloudy H (Clear) Urine pH 8.5 H (5.0-8.0) Ur Specific [place] 1.020 (1.005-1.030) Urine Protein 1+ H (Negative) Urine Glucose (UA) Negative (Negative) Urine Ketones 3+ H (Negative) Urine Occult Blood Negative (Negative) Urine Nitrite Negative (Negative) Urine Bilirubin 1+ H (Negative) Urine Urobilinogen 2.0 H (0.2-1.0) Ur Leukocyte Esterase Trace H (Negative) Urine RBC Not seen (0-5) /hpf Urine WBC 10-20 H (0-5) /hpf Ur Epithelial Cells 10-20 H (0-5) /hpf Ur Squamous Epith Cells 10-20 H (0-5) /hpf Urine Bacteria Moderate H (FEW) /hpf Urine Mucus Not seen (FEW) /hpf Meds: Medications Discontinued Medications Generic Name Dose Route Start Last Admin Trade Name Freq PRN Reason Stop Dose Admin Hydromorphone HCl 1 mg 06/15/17 11:19 Dilaudid IVPUSH 06/15/17 11:20 ONETIME ONE Hydromorphone HCl 1 mg 06/15/17 11:48 06/15/17 11:50 Dilaudid IM 06/15/17 11:49 1 mg ONETIME ONE Administration Hydromorphone HCl 1 mg 06/15/17 12:54 06/15/17 12:58 Dilaudid IM 06/15/17 12:55 1 mg ONETIME ONE Administration Sodium Chloride 1,000 mls @ 999 mls/hr 06/15/17 11:19 Normal Saline IV 06/15/17 12:19 ONETIME ONE Ondansetron HCl 4 mg 06/15/17 11:19 Zofran IVPUSH 06/15/17 11:20 ONETIME ONE Ondansetron HCl 4 mg 06/15/17 11:55 06/15/17 12:07 Zofran Odt PO 06/15/17 11:56 4 mg ONETIME ONE Administration Sodium Chloride 10 ml 06/15/17 11:19 Saline Flush FLUSH ASDIRECTED PRN Keep Vein Open - Re-Assessments/Exams Free Text/Narrative Re-Assessment/Exam: Ordered a peripheral IV with normal saline, Zofran 4 mg IVP, Dilaudid 1 mg IVP. Initial labs and studies include CBC, chem 14, lipase, amylase, CRP, UA, and 2 view of the abdomen. X-ray reviewed: Nonspecific air in stool pattern with few air-fluid levels. 06/15/17 12:53 Labs reviewed: White blood cell count 5.57, hemoglobin 12.2, platelets 210, no neutrophilia present, sodium 141, potassium 3.8, creatinine 1.0, I and gap mildly elevated 17.8, glucose 95, AST and ALT within normal limits, CRP less than 0.2, amylase 70, and lipase 385. Patient complaining of pain ordered an additional 1 mg Dilaudid. Will discharge patient home with instructions to follow-up with GI doc to see if earlier appointment may be required for earlier evaluation prior to next Mondays Appt. 06/15/17 14:33 X-ray of the abdomen two-view impression: Findings suspicious for mild partial small bowel obstruction. Patient has had multiple stools. She' s vomited a 3 times but able to keep liquids down. Appetite is poor. She states symptoms are normal when she has a flare up of chronic pancreatitis. Labs otherwise did not indicate inflammatory process taking place. Pain is to the epigastric/LUQ region. I Did Call Her to share these results. Message Was Left on Her Voicemail to Contact the ED. Departure - Departure Time of Disposition: 13:03 Disposition: Home, Self-Care 01 Condition: Good Clinical Impression: Chronic relapsing pancreatitis - Discharge Information Instructions: Pain Medicine Instructions, [id number] Referrals: Rik Walls PA-C [Primary Care Provider] - Forms: ED Department Discharge Additional Instructions: Labs indicated White blood cell count, amylase, and CRP were all within normal limits. Lipase was elevated at 385. X-ray of the abdomen revealed nonspecific air and stool pattern. With no concerning findings at this point. Suggestion is to stick with a clear liquid diet for the next [address] Gutierrez at [facility] to see if you can be evaluated earlier then next Thursday. Continue taking all your home medications as prescribed. Return to the ED as needed for any new or worsening symptoms.
[2017-06-15] MEDS ORDERED: HYDROmorphone 1 MG/ML Syringe IM ONE ×2 (11:48→12:54)
[2017-06-15] MEDS ORDERED: Ondansetron 4 MG Tab.DIS PO ONE (11:55)
--- NOTE | 2017-06-15 13:58 | CR ---
Abdomen: Supine and upright views of the abdomen were obtained. Comparison: Previous abdominal series of 05/14/17. Previous abdominal surgery is seen. Slightly prominent gas-filled loops of small bowel are seen with multiple air-fluid levels on the upright view. Mild partial small bowel obstruction is suggested. Surgical clips are noted from previous cholecystectomy. Infusion catheter appears to be present within the left abdomen. No free air is seen. Bony structures are unremarkable. Impression: 1. Findings suspicious for mild partial small bowel obstruction. 2. Other incidental findings. Diagnostic code #3
== END 2017-06-15 13:23 | disposition home or self-care (01) ==
LOC: JD.ED 10:04
DX: K86.1 Other chronic pancreatitis (principal); F41.9 Anxiety disorder, unspecified; E03.9 Hypothyroidism, unspecified; Z88.8 Allergy status to other drugs, medicaments and biological substances; Z88.6 Allergy status to analgesic agent; Z79.899 Other long term (current) drug therapy; Z90.49 Acquired absence of other specified parts of digestive tract; Z86.73 Personal history of transient ischemic attack (TIA), and cerebral infarction without residual deficits; Z98.84 Bariatric surgery status
CPT/HCPCS: 36415; 74020; 80053; 81001; 82150; 83690; 85025; 86140; 96372; 99284; A9270; J1170

== ENCOUNTER 2017-06-17 09:59 | Emergency (ER) | payer BC, MEDICARE ==
[2017-06-17 10:14] VITALS: BP 146/100
[2017-06-17] MEDS ORDERED: Ondansetron 4 MG Tab.DIS PO ONE (11:09)
[2017-06-17] MEDS ORDERED: Ketorolac 30 MG/ML SDV IM ONE (11:09)
[2017-06-17] MEDS ORDERED: HYDROmorphone 1 MG/ML Syringe IM ONE ×2 (11:10→12:38)
--- NOTE | 2017-06-17 12:16 | EDM.PDOC ---
ED HPI GENERAL MEDICAL PROBLEM - General Chief Complaint: Back Pain or Injury Stated Complaint: PANCRETITIS Time Seen by Provider: 06/17/17 10:31 Source of Information: Reports: Patient History Limitations: Reports: No Limitations - History of Present Illness INITIAL COMMENTS - FREE TEXT/NARRATIVE: The patient is a 41-year-old female with a history of chronic pain and chronic pancreatitis who comes in with an exacerbation of pain. She states that her current episode has lasted about 4 days. States that she's feeling it more in her low back area. Pain is in the center of the abdomen and goes straight through to the low back. She's also had some nausea and vomiting. She's had similar symptoms previously. No diarrhea but has had "fatty stools". No urinary symptoms. No fever. No cough or difficulty breathing. No documented fever. She took Zofran and her usual oxycodone at home with no relief. She has been to the emergency department about 8 times in the last month with her symptoms and has felt better after IM medications and discharged. Her labs have always been normal. She has plans to follow up with her specialist at [facility] in about 2 weeks. Upper Back Pain Score (Numeric/FACES): 8 - Related Data Allergies Allergy/AdvReac Type Severity Reaction Status Date / Time metoclopramide HCl Allergy Itching Verified 06/17/17 10:06 [From Reglan] buprenorphine [From Butrans] AdvReac Other Verified 06/17/17 10:06 ketorolac tromethamine AdvReac Stomach Verified 06/17/17 10:06 [From Toradol] Upset prochlorperazine AdvReac Vomiting Verified 06/17/17 10:06 [From Compazine] Home Meds: Home Meds Levothyroxine Sodium [Synthroid] 200 mcg PO DAILY 01/13/17 [History] Gabapentin [Neurontin] 1,200 mg PO TID PRN 04/25/17 [History] Temazepam [Restoril] 15 mg PO BEDTIME 04/25/17 [History] Ondansetron [Zofran ODT] 4 mg PO Q4H PRN #30 tab.dis 05/14/17 [Rx] oxyCODONE HCl/Acetaminophen [Percocet 10-325 mg Tablet] 1 each PO Q4H PRN #30 tablet 07/10/17 [Rx] Past Medical History - Past Health History Medical/Surgical History: Denies Medical/Surgical History HEENT History: Reports: Glaucoma Other Respiratory History: cough RLQ Gastrointestinal History: Reports: Pancreatitis, Other (See Below) Other Gastrointestinal History: chronic pancreatitis, fatty pancreas 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 OB/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 History: c section x3, tubes tied Musculoskeletal History: Reports: Arthritis Neurological History: Reports: TIA, Other (See Below) Other Neuro History: pseudotumor, shunt Psychiatric History: Reports: Addiction, Anxiety, Emotional Problems Endocrine/Metabolic History: Reports: Hypothyroidism Hematologic History: Reports: Anemia - Infectious Disease History Infectious Disease History: Reports: C-Difficile Other Infectious Disease History: contact precautions in place - Past Surgical History HEENT Surgical History: Reports: Oral Surgery GI Surgical History: Reports: Appendectomy, Bariatric Procedure, Cholecystectomy , ERCP Female Surgical History: Reports: Section, Tubal Ligation Social & Family History - Family History Family Medical History: Noncontributory Cardiac: Reports: Bypass, Hypertension, [place] Respiratory: Reports: Asthma Oncologic: Reports: Colon - Tobacco Use Smoking Status *Q: Never Smoker Packs/Tins Daily: 1 Used Tobacco, but Quit: Yes Month Tobacco Last Used: 23 years Second Hand Smoke Exposure: No - Caffeine Use Caffeine Use: Reports: Coffee - Alcohol Use Days Per Week of Alcohol Use: 0 - Recreational Drug Use Recreational Drug Use: No Drug Use in Last 12 Months: No - Living Situation & Occupation Living situation: Reports: , with Spouse Occupation: Unemployed ED ROS GENERAL - Review of Systems Review Of Systems: See Below Constitutional: Reports: Malaise, Fatigue HEENT: Reports: No Symptoms Respiratory: Denies: Shortness of Breath Cardiovascular: Denies: Chest Pain Endocrine: Reports: Fatigue GI/Abdominal: Reports: Abdominal Pain : Denies: Dysuria, Flank Pain Musculoskeletal: Reports: Back Pain ED EXAM,LOWER BACK PAIN/INJURY - Physical Exam Exam: See Below Exam Limited By: No Limitations General Appearance: Alert, WD/WN, No Apparent Distress Ears: Normal External Exam Nose: Normal Inspection Throat/Mouth: Normal Inspection, Normal Voice, No Airway Compromise Head: Atraumatic, Normocephalic Neck: Normal Inspection, Supple Respiratory/Chest: No Respiratory Distress, Lungs Clear, Normal Breath Sounds Cardiovascular: Normal Peripheral Pulses, Regular Rate, Rhythm, No Murmur GI/Abdominal: Soft, No Distention, Other (Epigastric tenderness). No: Guarding , Rebound Back Exam: Normal Inspection. No: CVA Tenderness (L), CVA Tenderness (R), Paraspinal Tenderness, Vertebral Tenderness Extremities: Normal Inspection Neurological: Alert, Normal Mood/Affect, Oriented x 3 Psychiatric: Normal Affect, Normal Mood Skin Exam: Warm, Dry, Intact, Normal Color, No Rash Course - Vital Signs Last Recorded V/S: Last Vital Signs Temp 36.4 C 06/17/17 10:05 Pulse 66 06/17/17 10:05 Resp 16 06/17/17 10:05 BP 146/100 H 06/17/17 10:05 Pulse Ox 99 06/17/17 10:05 - Orders/Labs/Meds Orders: Active Orders 24 hr Category Date Time Status UA W/MICROSCOPIC [URIN] Stat Lab 06/17/17 11:09 Uncollected Labs: Laboratory Tests 06/17/17 06/17/17 Range/Units 11:39 11:39 WBC 7.38 (3.98-10.04) K/mm3 RBC 3.70 L (3.98-5.22) M/mm3 Hgb 11.0 L (11.2-15.7) gm/L Hct 33.6 L (34.1-44.9) % MCV 90.8 (79.4-94.8) fl MCH 29.7 (25.6-32.2) pg MCHC 32.7 (32.2-35.5) g/dl RDW Std Deviation 47.5 H (36.4-46.3) fL Plt Count 235 (182-369) K/mm3 MPV 10.0 (9.4-12.3) fl Neut % (Auto) 53.9 (34.0-71.1) % Lymph % (Auto) 37.3 (19.3-51.7) % [place] % (Auto) 7.9 (4.7-12.5) % Eos % (Auto) 0.5 L (0.7-5.8) Baso % (Auto) 0.4 (0.1-1.2) % Neut # (Auto) 3.98 (1.56-6.13) K/mm3 Lymph # (Auto) 2.75 (1.18-3.74) K/mm3 [place] # (Auto) 0.58 H (0.24-0.36) K/mm3 Eos # (Auto) 0.04 (0.04-0.36) K/mm3 Baso # (Auto) 0.03 (0.01-0.08) K/mm3 Sodium 143 (136-145) mEq/L Potassium 3.4 L (3.5-5.1) mEq/L Chloride 107 (98-107) mEq/L Carbon Dioxide 23 (21-32) mEq/L Anion Gap 16.4 H (5-15) BUN 4 L (7-18) mg/dL Creatinine 1.0 (0.55-1.02) mg/dL Est Cr Clr Drug Dosing 79.25 mL/min Estimated GFR (MDRD) > 60 (>60) mL/min BUN/Creatinine Ratio 4.0 L (14-18) Glucose 90 (74-106) mg/dL Calcium 9.3 (8.5-10.1) mg/dL Total Bilirubin 0.4 (0.2-1.0) mg/dL AST 21 (15-37) U/L ALT 17 (14-59) U/L Alkaline Phosphatase 55 (46-116) U/L Troponin I < 0.017 (0.00-0.056) ng/mL Total Protein 8.4 H (6.4-8.2) g/dl Albumin 4.2 (3.4-5.0) g/dl Globulin 4.2 gm/dL Albumin/Globulin Ratio 1.0 (1-2) Lipase 555 H (73-393) U/L Meds: Medications Discontinued Medications Generic Name Dose Route Start Last Admin Trade Name Freq PRN Reason Stop Dose Admin Hydromorphone HCl 1 mg 06/17/17 11:10 06/17/17 11:40 Dilaudid IM 06/17/17 11:11 1 mg ONETIME ONE Administration Ketorolac Tromethamine 60 mg 06/17/17 11:09 06/17/17 11:39 Toradol IM 06/17/17 11:10 60 mg ONETIME ONE Administration Ondansetron HCl 8 mg 06/17/17 11:09 06/17/17 11:41 Zofran Odt PO 06/17/17 11:10 8 mg ONETIME ONE Administration - Re-Assessments/Exams Free Text/Narrative Re-Assessment/Exam: 06/17/17 12:33 Lipase is mildly elevated at 550. I discussed the results with the patient. Management is fluids and symptom control. She is feeling much better after Zofran, Toradol, and 1 shot of Dilaudid. She is ready to drink clear liquids now. I encouraged her to return should she have worsening symptoms, will attempt outpatient management for now. Departure - Departure Time of Disposition: 12:29 Disposition: Home, Self-Care 01 Clinical Impression: Chronic pancreatitis, Nausea, Abdominal pain - Discharge Information Referrals: Rik Walls PA-C [Primary Care Provider] - Forms: ED Department Discharge Additional Instructions: 1. Continue your usual treatments for your pancreatitis, including clear liquid diet and pain medications per your primary provider 2. Follow up with [facility] as planned 3. Return for any severe pain, inability to keep liquids down, or other concerning symptoms - My Orders Last 24 Hours: My Active Orders 06/17/17 11:09 UA W/MICROSCOPIC [URIN] Stat - Assessment/Plan Last 24 Hours: My Active Orders 06/17/17 11:09 UA W/MICROSCOPIC [URIN] Stat
== END 2017-06-17 12:50 | disposition home or self-care (01) ==
LOC: JD.ED 09:59
DX: R11.0 Nausea (principal); R10.9 Unspecified abdominal pain; K86.1 Other chronic pancreatitis; F41.9 Anxiety disorder, unspecified; E03.9 Hypothyroidism, unspecified; Z86.2 Personal history of diseases of the blood and blood-forming organs and certain disorders involving the immune mechanism; Z98.84 Bariatric surgery status; Z90.49 Acquired absence of other specified parts of digestive tract; Z98.51 Tubal ligation status; Z87.891 Personal history of nicotine dependence; Z79.899 Other long term (current) drug therapy; Z88.8 Allergy status to other drugs, medicaments and biological substances; Z88.6 Allergy status to analgesic agent
CPT/HCPCS: 36415; 80053; 83690; 84484; 85025; 96372; 99284; A9270; J1170; J1885; 99283

== ENCOUNTER 2017-06-20 08:45 | Emergency (ER) | payer BC, MEDICARE ==
[2017-06-20] MEDS ORDERED: Metoclopramide 10 MG/2 ML SDV IVPUSH ONE (09:03)
[2017-06-20] MEDS ORDERED: HYDROmorphone 1 MG/ML Syringe IM ONE ×2 (09:03→09:57)
[2017-06-20] MEDS ORDERED: diphenhydrAMINE 50 MG/ML SDV IM ONE (09:04)
[2017-06-20] MEDS ORDERED: Metoclopramide 10 MG/2 ML SDV IM ONE (09:08)
--- NOTE | 2017-06-20 09:08 | EDM.PDOC ---
ED HPI GENERAL MEDICAL PROBLEM - General Chief Complaint: Abdominal Pain Stated Complaint: ABDOMINAL PAIN Time Seen by Provider: 06/20/17 09:03 Source of Information: Reports: Patient History Limitations: Reports: No Limitations - History of Present Illness INITIAL COMMENTS - FREE TEXT/NARRATIVE: 41-year-old female with chronic relapsing chronic pancreatitis returns to the ED with severe epigastric left upper quadrant abdominal pain radiating through to her back characteristic of her pancreatitis. She is currently awaiting further consultation at the [facility] in [place] in regards to possible pancreatic resection. She has failed outpatient management with stenting. She states this time the pain is out of control perhaps one of the worst attack she's experienced lately. Recurrent vomiting of bilious material without blood. Stools are chronically loose due to steatorrhea. She apparently did try pancreatic enzymes without much relief. Patient has been using Zofran sublingually . She currently does not have any narcotic pain medication for home use. Has been up for the last 24 hours due to the severity of the pain. Last seen in the ED on June 17. Lipase at that time was 555. Onset: Unknown/Unsure (Current severe episode is been lasting 4-5 days.) Onset Date: 06/14/17 Duration: Day(s): Location: Reports: Abdomen (Epigastrium and left upper quadrant readings to to the left mid back.) Quality: Reports: Dull, Throbbing, Other Severity: Severe (Severe pain 10 on a 10) Improves with: Reports: None (Severe pain 10 on a 1010 on a 10.) Worsens with: 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 (ED or drinking.) Context: 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 (Has chronic relapsing pancreatitis). Denies: Activity , Exercise, Lifting, Sick Contact, Trauma Associated Symptoms: Reports: Malaise, Nausea/Vomiting, Weakness. Denies: Confusion, Chest Pain, Cough, cough w sputum, Diaphoresis, Fever/Chills, Headaches, Loss of Appetite, Rash, Seizure, Shortness of Breath Treatments TEST ENG: 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 (see below) (Unable to keep down any oral medicines) Left Abdomen Pain Score (Numeric/FACES): 9 - Related Data Allergies Allergy/AdvReac Type Severity Reaction Status Date / Time metoclopramide HCl Allergy Itching Verified 06/20/17 08:51 [From Reglan] buprenorphine [From Butrans] AdvReac Other Verified 06/20/17 08:51 ketorolac tromethamine AdvReac Stomach Verified 06/20/17 08:51 [From Toradol] Upset prochlorperazine AdvReac Vomiting Verified 06/20/17 08:51 [From Compazine] Home Meds: Home Meds Levothyroxine Sodium [Synthroid] 200 mcg PO DAILY 01/13/17 [History] Gabapentin [Neurontin] 1,200 mg PO TID PRN 04/25/17 [History] Temazepam [Restoril] 15 mg PO BEDTIME 04/25/17 [History] Ondansetron [Zofran ODT] 4 mg PO Q4H PRN #30 tab.dis 05/14/17 [Rx] oxyCODONE HCl/Acetaminophen [Percocet 5-325 mg Tablet] 1 - 2 each PO Q4H PRN # 30 tablet 06/20/17 [Rx] Past Medical History - Past Health History Medical/Surgical History: Denies Medical/Surgical History HEENT History: Reports: Glaucoma Other Respiratory History: cough RLQ Gastrointestinal History: Reports: Pancreatitis, Other (See Below) Other Gastrointestinal History: chronic pancreatitis, 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: c section x3, tubes tied Musculoskeletal History: Reports: Arthritis Neurological History: Reports: TIA, Other (See Below) Other Neuro History: pseudotumor, shunt Psychiatric History: Reports: Addiction, Anxiety, Emotional Problems Endocrine/Metabolic History: Reports: Hypothyroidism Hematologic History: Reports: Anemia - Infectious Disease History Infectious Disease History: Reports: C-Difficile, MRSA Other Infectious Disease History: in 2006 - Past Surgical History HEENT Surgical History: Reports: Oral Surgery GI Surgical History: Reports: Appendectomy, Bariatric Procedure, Cholecystectomy , ERCP Female Surgical History: Reports: Section, Tubal Ligation Social & Family History - Family History Family Medical History: Noncontributory Cardiac: Reports: Bypass, Hypertension, [place] Respiratory: Reports: Asthma Oncologic: Reports: Colon - Tobacco Use Smoking Status *Q: Never Smoker Packs/Tins Daily: 1 Used Tobacco, but Quit: Yes Month Tobacco Last Used: 23 years Second Hand Smoke Exposure: No - Caffeine Use Caffeine Use: Reports: None - Alcohol Use Days Per Week of Alcohol Use: 0 - Recreational Drug Use Recreational Drug Use: No Drug Use in Last 12 Months: No - Living Situation & Occupation Living situation: Reports: , with Spouse Occupation: Unemployed ED ROS GENERAL - Review of Systems Review Of Systems: See Below Constitutional: Reports: Fever, Chills, Malaise (L Rodriguez a fever with some chills last night.), Weakness, Fatigue, Weight Loss HEENT: Reports: No Symptoms Respiratory: Reports: No Symptoms Cardiovascular: Reports: No Symptoms Endocrine: Reports: Fatigue GI/Abdominal: Reports: Abdominal Pain, Diarrhea (See history of present illness chronic loose diarrhea stools due to steatorrhea.), Nausea, Vomiting. Denies: Hematemesis, Hematochezia : Reports: No Symptoms Musculoskeletal: Reports: Back Pain (Left mid back pain rating from the abdomen. ) Skin: Reports: No Symptoms. Denies: Bruising, Pruritis Neurological: Reports: No Symptoms Psychiatric: Reports: No Symptoms Hematologic/Lymphatic: Reports: No Symptoms Immunologic: Reports: No Symptoms ED EXAM, GI/ABD - Physical Exam Exam: See Below Exam Limited By: No Limitations General Appearance: Moderate Distress (Appears to be in a moderate amount of pain more so then usual.) Eyes: Bilateral: Normal Appearance (No jaundice) Throat/Mouth: Other Neck: Normal Inspection, Supple, Non-Tender, Full Range of Motion. No: Lymphadenopathy (L), Lymphadenopathy (R) Respiratory/Chest: No Respiratory Distress, Lungs Clear, Normal Breath Sounds, No Accessory Muscle Use Cardiovascular: Normal Peripheral Pulses, Regular Rate, Rhythm, No Edema GI/Abdominal Exam: Guarding, Tender, Abnormal Bowel Sounds (Hypoactive bowel sounds.). No: Rigid, Rebound (Epigastrium and left upper quadrant of the abdomen without rebound tenderness.) Back Exam: Normal Inspection, Full Range of Motion, CVA Tenderness (L), Decreased Range of Motion. No: CVA Tenderness (R) (Mild) Extremities: Normal Inspection, Normal Range of Motion, Non-Tender, No Pedal Edema Neurological: Alert, Oriented, CN II-XII Intact, Normal Cognition Psychiatric: Normal Affect, Normal Mood Skin Exam: Warm, Dry, Intact, Normal Color, No Rash Course - Vital Signs Last Recorded V/S: Last Vital Signs Temp 36.2 C 06/20/17 08:53 Pulse 55 L 06/20/17 10:35 Resp 12 06/20/17 10:35 BP 135/95 H 06/20/17 10:35 Pulse Ox 98 06/20/17 10:35 - Orders/Labs/Meds Labs: Laboratory Tests 06/20/17 06/20/17 06/20/17 Range/Units 09:24 09:24 09:24 WBC 5.68 (3.98-10.04) K/mm3 RBC 3.62 L (3.98-5.22) M/mm3 Hgb 10.7 L (11.2-15.7) gm/L Hct 33.1 L (34.1-44.9) % MCV 91.4 (79.4-94.8) fl MCH 29.6 (25.6-32.2) pg MCHC 32.3 (32.2-35.5) g/dl RDW Std Deviation 46.9 H (36.4-46.3) fL Plt Count 240 (182-369) K/mm3 MPV 9.9 (9.4-12.3) fl Neutrophils % (Manual) 52 (40-60) % Band Neutrophils % 0 (0-10) % Lymphocytes % (Manual) 44 H (20-40) % Atypical Lymphs % 0 % Monocytes % (Manual) 3 (2-10) % Eosinophils % (Manual) 1 (0.7-5.8) % Basophils % (Manual) 0 L (0.1-1.2) Platelet Estimate Adequate RBC Morph Comment Normal PT 10.8 (8.0-13.0) SECONDS INR 0.99 Sodium 141 (136-145) mEq/L Potassium 3.5 (3.5-5.1) mEq/L Chloride 106 (98-107) mEq/L Carbon Dioxide 26 (21-32) mEq/L Anion Gap 12.5 (5-15) BUN 8 (7-18) mg/dL Creatinine 1.0 (0.55-1.02) mg/dL Est Cr Clr Drug Dosing TNP Estimated GFR (MDRD) > 60 (>60) mL/min BUN/Creatinine Ratio 8.0 L (14-18) Glucose 98 (74-106) mg/dL Calcium 9.3 (8.5-10.1) mg/dL Total Bilirubin 0.4 (0.2-1.0) mg/dL AST 14 L (15-37) U/L ALT 17 (14-59) U/L Alkaline Phosphatase 49 (46-116) U/L C-Reactive Protein < 0.2 (<1.0) mg/dL Total Protein 8.0 (6.4-8.2) g/dl Albumin 4.1 (3.4-5.0) g/dl Globulin 3.9 gm/dL Albumin/Globulin Ratio 1.1 (1-2) Lipase 782 H (73-393) U/L Meds: Medications Discontinued Medications Generic Name Dose Route Start Last Admin Trade Name Freq PRN Reason Stop Dose Admin Diphenhydramine HCl 25 mg 06/20/17 09:04 06/20/17 09:34 Benadryl IM 06/20/17 09:05 25 mg ONETIME ONE Administration Hydromorphone HCl 2 mg 06/20/17 09:03 06/20/17 09:30 Dilaudid IM 06/20/17 09:04 2 mg ONETIME ONE Administration Hydromorphone HCl Confirm 06/20/17 09:22 06/20/17 09:35 Dilaudid Administered 06/20/17 09:23 Not Given Dose 1 mg .ROUTE .STK-MED ONE Hydromorphone HCl 2 mg 06/20/17 09:57 06/20/17 10:05 Dilaudid IM 06/20/17 09:58 2 mg ONETIME ONE Administration Ketorolac Tromethamine 30 mg 06/20/17 09:15 06/20/17 09:31 Toradol IM 30 mg ONETIME EDSON Administration Metoclopramide HCl 7.5 mg 06/20/17 09:03 Reglan IVPUSH 06/20/17 09:04 ONETIME ONE Metoclopramide HCl 7.5 mg 06/20/17 09:08 06/20/17 09:33 Reglan IM 06/20/17 09:09 7.5 mg ONETIME ONE Administration - Radiology Interpretation Free Text/Narrative:: 41-year-old female presents to the ED with a severe left upper quadrant epigastric abdominal pain rating to Dr. cates characteristic of her pancreatitis. Patient has had a chronic relapsing pancreatitis for the last year since gallbladder was removed. She does not drink alcohol. She has been seen at the [facility] and had stent placed but it failed to resolve the problems and it apparently fell about 3 weeks later. This was carried out in April of this year. She has an appointment around June 30 with possible surgical removal of part of her pancreas being considered. Her pain today is worse than normal. She is rocking back and forth from the bed. Plan 2 mg of IM Dilaudid with some 0.5 mg Reglan IM and Benadryl 25 mg IM with Toradol 30 IM to be given. I'm going to CT her abdomen without any contrast since we can 't establish an IV and skin keep down oral contrast. Just to make sure there is no obvious pancreatic pseudocyst. Her abdominal girth would limit the ability of ultrasound to identify pancreatic pseudocyst almost was quite large. Routine labs including lipase and CRP collected and PT - Re-Assessments/Exams Free Text/Narrative Re-Assessment/Exam: 06/20/17 09:57 CT the abdomen has been completed. It does show a slightly thickened pancreas particularly the tail with no sign of significant inflammation or pseudocyst. Appendix is not visualized. Evidence of previous stomach surgery noted. She has a ventriculoperitoneal shunt with shunt evident in the abdomen. There is a minimal fat-containing umbilical hernia. No other other abnormalities were detected on CT of the abdomen. Only the hematology is back showing a white count of 5.68 and hemoglobin of 10.7 hematocrit 33.1. Pulse normal 240,000. Coags are normal. Patient is still writhing with pain. Will repeat Dilaudid 2 mg IM. 06/20/17 10:13 these chemistry is back showing a sodium of 141 potassium 3.5. Chloride 106 . and a gap is 12.5. Glucose 98 .Lipase 782. 06/20/17 10:24 patient will be discharged to home and I did write a prescription through the [id number] for Percocet 5/325 milligram tablets 30 as she usually takes the 10/325 milligram tablets. 2 tablets every 4 hours as needed for pain relief. Departure - Departure Time of Disposition: 10:20 Disposition: Home, Self-Care 01 Condition: Fair Clinical Impression: Chronic relapsing pancreatitis, Abdominal pain - Discharge Information Prescriptions: oxyCODONE HCl/Acetaminophen [Percocet 5-325 mg Tablet] 1 - 2 each PO Q4H PRN # 30 tablet PRN Reason: pain relief. Instructions: Abdominal Pain, Adult, [id number] Referrals: Rik Walls PA-C [Primary Care Provider] - Forms: ED Department Discharge Additional Instructions: Evaluation in the emergency room today in regards to increased epigastric left upper quadrant abdominal pain rating through to her back. This is been characteristic of your recurrent bouts of pancreatitis. Lipase was found to be elevated today at 782. 3 days ago was 555. He was given Dilaudid 2 mg intramuscularly 2 doses while in the ED for pain relief as well as Benadryl and Reglan for nausea relief and Toradol for pain relief as well. The remainder of your lab work remained normal. Continue clear fluids Percocet 03/18/25 usually 2 tablets every 4-6 hours as needed for pain relief. Zofran under the tongue as you have been doing.
[2017-06-20] MEDS ORDERED: Ketorolac 30 MG/ML SDV IM SCH (09:15)
[2017-06-20] MEDS ORDERED: HYDROmorphone 1 MG/ML Syringe ONE (09:22)
--- NOTE | 2017-06-20 10:13 | CT ---
CT abdomen and pelvis Technique: Multiple axial sections were obtained from above the dome of the diaphragm inferiorly through the pubic symphysis. Intravenous and oral contrast was not utilized. Comparison: Previous CT abdomen and pelvis exam of 01/14/17. Findings: Visualized lung bases shows nothing acute. Previous stomach surgery is noted. Surgical clips are seen from prior cholecystectomy. Catheter is identified within the epidural space terminating at the lower thoracic level with catheter terminating within the left side of the abdomen intraperitoneally. Noncontrast appearance of the liver and spleen appears within normal limits. Adrenal glands show no nodule. Kidneys show no abnormal calcifications or discrete soft tissue abnormality is seen. Aorta shows no aneurysmal dilatation. Pancreas is within normal limits. No retroperitoneal adenopathy or mesenteric abnormalities are seen. Appendix not visualized presumably from previous appendicitis. No pelvic mass or adenopathy is seen. Minimal fat-containing umbilical hernia is incidentally noted. Bone window settings were reviewed which appears within normal limits for the patient's age. Impression: 1. Incidental findings as noted above. Nothing acute is appreciated on noncontrast CT study of the abdomen and pelvis. Diagnostic code #2
[2017-06-20 10:36] VITALS: BP 135/95
== END 2017-06-20 10:36 | disposition home or self-care (01) ==
LOC: JD.ED 08:45
DX: K86.1 Other chronic pancreatitis (principal); E03.9 Hypothyroidism, unspecified; M19.90 Unspecified osteoarthritis, unspecified site; Z88.6 Allergy status to analgesic agent; Z88.8 Allergy status to other drugs, medicaments and biological substances; Z79.899 Other long term (current) drug therapy; Z86.73 Personal history of transient ischemic attack (TIA), and cerebral infarction without residual deficits; Z86.2 Personal history of diseases of the blood and blood-forming organs and certain disorders involving the immune mechanism; Z90.49 Acquired absence of other specified parts of digestive tract
CPT/HCPCS: 36415; 74176; 80053; 83690; 85025; 85610; 86140; 96372; 99284; J1170; J1200; J1885; J2765

== ENCOUNTER 2017-06-22 15:44 | Emergency (ER) | payer BC, MEDICARE ==
[2017-06-22] MEDS ORDERED: HYDROmorphone 0.5 MG/0.5 ML Syringe IM ONE ×2 (16:42→18:54)
[2017-06-22] MEDS ORDERED: Metoclopramide 10 MG/2 ML SDV IM ONE (16:42)
[2017-06-22] MEDS ORDERED: diphenhydrAMINE 50 MG/ML SDV IM ONE (16:44)
--- NOTE | 2017-06-22 16:51 | EDM.PDOC ---
ED HPI GENERAL MEDICAL PROBLEM - General Chief Complaint: Abdominal Pain Stated Complaint: PANCREATITIS Time Seen by Provider: 06/22/17 16:03 Source of Information: Reports: Patient History Limitations: Reports: No Limitations - History of Present Illness INITIAL COMMENTS - FREE TEXT/NARRATIVE: Patient is a 41-year-old female who presents ED complaining of epigastric pain. Patient is a history of chronic pancreatitis. He is seeing Dr. Gutierrez at [facility]. Next appointment scheduled for July 01. patient has been seen multiple times in the ER with pain to her epigastric region. Today the pain is boring through to her back. Pain is severe in nature. She's tried taking the hydrocodone as prescribed with minimal improvement. She has vomited 2. She's been on a liquid diet up until recently when she tried oatmeal. States she has intermittent diarrhea. Denies any fever, blood in her stool, pain with urination, shortness of breath, chest pain, or any additional complaints. Pain she is currently experiencing is consistent with previous pancreatic attacks. She was last evaluated June 20, 2017. She had extensive workup including labs and CT of the abdomen and pelvis. Lipase at that time was 782. Abdominal Pain Score (Numeric/FACES): 8 - Related Data Allergies Allergy/AdvReac Type Severity Reaction Status Date / Time metoclopramide HCl Allergy Itching Verified 06/22/17 15:56 [From Reglan] buprenorphine [From Butrans] AdvReac Other Verified 06/22/17 15:56 ketorolac tromethamine AdvReac Stomach Verified 06/22/17 15:56 [From Toradol] Upset prochlorperazine AdvReac Vomiting Verified 06/22/17 15:56 [From Compazine] Home Meds: Home Meds Levothyroxine Sodium [Synthroid] 200 mcg PO DAILY 01/13/17 [History] Gabapentin [Neurontin] 1,200 mg PO TID PRN 04/25/17 [History] Temazepam [Restoril] 15 mg PO BEDTIME 04/25/17 [History] Ondansetron [Zofran ODT] 4 mg PO Q4H PRN #30 tab.dis 05/14/17 [Rx] oxyCODONE HCl/Acetaminophen [Percocet 5-325 mg Tablet] 1 - 2 each PO Q4H PRN # 30 tablet 06/20/17 [Rx] Past Medical History - Past Health History Medical/Surgical History: Denies Medical/Surgical History HEENT History: Reports: Glaucoma Other Respiratory History: cough RLQ Gastrointestinal History: Reports: Pancreatitis, Other (See Below) Other Gastrointestinal History: chronic pancreatitis, fatty pancreas [employer] History: 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 OB/BYN History: c section x3, tubes tied Musculoskeletal History: Reports: Arthritis Neurological History: Reports: TIA, Other (See Below) Other Neuro History: pseudotumor, shunt Psychiatric History: Reports: Addiction, Anxiety, Emotional Problems Endocrine/Metabolic History: Reports: Hypothyroidism Hematologic History: Reports: Anemia - Infectious Disease History Infectious Disease History: Reports: C-Difficile, MRSA Other Infectious Disease History: in 2006 - Past Surgical History HEENT Surgical History: Reports: Oral Surgery GI Surgical History: Reports: Appendectomy, Bariatric Procedure, Cholecystectomy , ERCP Female Surgical History: Reports: Section, Tubal Ligation Social & Family History - Family History Family Medical History: Noncontributory Cardiac: Reports: Bypass, Hypertension, [place] Respiratory: Reports: Asthma Oncologic: Reports: Colon - Tobacco Use Smoking Status *Q: Never Smoker Packs/Tins Daily: 1 Used Tobacco, but Quit: Yes Month Tobacco Last Used: 23 years Second Hand Smoke Exposure: No - Caffeine Use Caffeine Use: Reports: None - Alcohol Use Days Per Week of Alcohol Use: 0 - Recreational Drug Use Recreational Drug Use: No Drug Use in Last 12 Months: No - Living Situation & Occupation Living situation: Reports: , with Spouse Occupation: Unemployed ED ROS GENERAL - Review of Systems Review Of Systems: ROS reveals no pertinent complaints other than HPI. ED EXAM, GI/ABD - Physical Exam Exam: See Below Exam Limited By: No Limitations General Appearance: Alert, WD/WN, Mild Distress Ears: Hearing Grossly Normal Nose: Normal Inspection Throat/Mouth: Normal Voice, No Airway Compromise Neck: Normal Inspection, Supple Respiratory/Chest: No Respiratory Distress, Lungs Clear, Normal Breath Sounds, No Accessory Muscle Use, Chest Non-Tender Cardiovascular: Normal Peripheral Pulses, Regular Rate, Rhythm GI/Abdominal Exam: Normal Bowel Sounds, Soft, No Organomegaly, No Distention, Tender (Epigastric region.) Back Exam: Normal Inspection, Full Range of Motion. No: CVA Tenderness (L), CVA Tenderness (R) Extremities: Normal Inspection Neurological: Alert, Oriented, CN II-XII Intact, Normal Cognition, No Motor/ Sensory Deficits Psychiatric: Normal Affect, Normal Mood Skin Exam: Warm, Dry, Intact, Normal Color Course - Vital Signs Last Recorded V/S: Last Vital Signs Temp 97.7 F 06/22/17 15:57 Pulse 70 06/22/17 19:10 Resp 12 06/22/17 19:10 BP 140/70 06/22/17 19:10 Pulse Ox 100 06/22/17 19:10 - Orders/Labs/Meds Labs: Laboratory Tests 06/22/17 06/22/17 06/22/17 Range/Units 17:04 17:04 17:04 WBC 6.59 (3.98-10.04) K/mm3 RBC 3.91 L (3.98-5.22) M/mm3 Hgb 11.5 (11.2-15.7) gm/L Hct 35.5 (34.1-44.9) % MCV 90.8 (79.4-94.8) fl MCH 29.4 (25.6-32.2) pg MCHC 32.4 (32.2-35.5) g/dl RDW Std Deviation 46.4 H (36.4-46.3) fL Plt Count 262 (182-369) K/mm3 MPV 10.1 (9.4-12.3) fl Neut % (Auto) 53.0 (34.0-71.1) % Lymph % (Auto) 37.5 (19.3-51.7) % [place] % (Auto) 8.0 (4.7-12.5) % Eos % (Auto) 1.2 (0.7-5.8) Baso % (Auto) 0.3 (0.1-1.2) % Neut # (Auto) 3.49 (1.56-6.13) K/mm3 Lymph # (Auto) 2.47 (1.18-3.74) K/mm3 [place] # (Auto) 0.53 H (0.24-0.36) K/mm3 Eos # (Auto) 0.08 (0.04-0.36) K/mm3 Baso # (Auto) 0.02 (0.01-0.08) K/mm3 Sodium 137 (136-145) mEq/L Potassium 3.7 (3.5-5.1) mEq/L Chloride 101 (98-107) mEq/L Carbon Dioxide 27 (21-32) mEq/L Anion Gap 12.7 (5-15) BUN 7 (7-18) mg/dL Creatinine 1.0 (0.55-1.02) mg/dL Est Cr Clr Drug Dosing TNP Estimated GFR (MDRD) > 60 (>60) mL/min BUN/Creatinine Ratio 7.0 L (14-18) Glucose 93 (74-106) mg/dL Calcium 9.4 (8.5-10.1) mg/dL Total Bilirubin 0.4 (0.2-1.0) mg/dL AST 17 (15-37) U/L ALT 17 (14-59) U/L Alkaline Phosphatase 56 (46-116) U/L C-Reactive Protein 0.2 (<1.0) mg/dL Total Protein 8.7 H (6.4-8.2) g/dl Albumin 4.4 (3.4-5.0) g/dl Globulin 4.3 gm/dL Albumin/Globulin Ratio 1.0 (1-2) Amylase 60 (25-115) U/L Lipase 290 (73-393) U/L Meds: Medications Discontinued Medications Generic Name Dose Route Start Last Admin Trade Name Freq PRN Reason Stop Dose Admin Diphenhydramine HCl 50 mg 06/22/17 16:44 06/22/17 16:59 Benadryl IM 06/22/17 16:45 50 mg ONETIME ONE Administration Hydromorphone HCl 1 mg 06/22/17 16:42 06/22/17 17:00 Dilaudid IM 06/22/17 16:43 1 mg ONETIME ONE Administration Hydromorphone HCl 0.5 mg 06/22/17 18:54 06/22/17 18:59 Dilaudid IM 06/22/17 18:55 0.5 mg ONETIME ONE Administration Metoclopramide HCl 10 mg 06/22/17 16:42 06/22/17 16:58 Reglan IM 06/22/17 16:43 10 mg ONETIME ONE Administration - Re-Assessments/Exams Free Text/Narrative Re-Assessment/Exam: Patient is a hard IV stick. Will start with IM medications including Dilaudid 1 mg IM, Reglan 10 mg IM, Benadryl 50 mg IM. States patient has adverse side effects with taking the Reglan including the sensations coming out of her skin. Patient did receive this on previous ED visit. Initial labs include CBC, chem 14, CRP, lipase, amylase, and also flat and upright of the abdomen. 06/22/17 18:04 Labs reviewed: Sodium 137, potassium 3.7, creatinine 1.0, CRP 0.2 , amylase 60, lipase 290, white blood cell count 6.59, hemoglobin 11.5, and platelet count 262. Abdominal x-ray did not reveal any acute findings. 06/22/17 1820 discussed lab results and x-ray with patient. Patient's pain is a 6 out of 10. Discuss admission to the hospital. They request patient be admitted here for pain control. I informed him I am unsure if we have any beds available. If no beds available here do not want to be transferred to [facility] for admission for pain control. Ordered dilaudid 1mg IM. Per nursing staff no beds available for admission. Patient will require transfer to [facility] if patient requests admission. 06/22/17 18:55 Patient refuses to arrange admission. Will order an additional 0.5mg IM. Will Discharge patient home with instructions. Departure - Departure Time of Disposition: 18:56 Disposition: Home, Self-Care 01 Condition: Fair Clinical Impression: Abdominal pain, Chronic pancreatitis - Discharge Information Instructions: Abdominal Pain, Adult, [id number], Nausea and Vomiting, Adult, [id number], Pain Medicine Instructions, [id number] Referrals: Rik Walls PA-C [Primary Care Provider] - Forms: ED Department Discharge Additional Instructions: As discussed lipase was 290 with no additional concerning findings. X-ray of the abdomen revealed nonspecific air and stool pattern. Please continue to take all home medications as prescribed including pain medications. Stick with a liquid diet. Keep in contact with Dr. Gutierrez's office to update with current situation. Return to the E.D. for any new or worsening symptoms.
[2017-06-22 19:14] VITALS: BP 140/70
--- NOTE | 2017-06-23 07:00 | CR ---
Abdomen: Supine and upright views of the abdomen were obtained. Comparison: Previous abdominal x-ray of 06/15/17. Surgical clips are seen from prior cholecystectomy. Surgical anastomotic sutures are seen within the left upper abdomen. Bowel gas pattern is normal. Bony structures appear within normal limits for the patient's age. Impression: 1. Incidental findings. Nothing acute is appreciated on two-view abdominal x-ray. Diagnostic code #2
== END 2017-06-22 19:14 | disposition home or self-care (01) ==
LOC: JD.ED 15:44
DX: K86.1 Other chronic pancreatitis (principal); F41.9 Anxiety disorder, unspecified; E03.9 Hypothyroidism, unspecified; Z88.8 Allergy status to other drugs, medicaments and biological substances; Z88.6 Allergy status to analgesic agent; Z79.899 Other long term (current) drug therapy; Z86.73 Personal history of transient ischemic attack (TIA), and cerebral infarction without residual deficits; Z90.49 Acquired absence of other specified parts of digestive tract
CPT/HCPCS: 36415; 74020; 80053; 82150; 83690; 85025; 86140; 96372; 99284; J1170; J1200; J2765; 99283

== ENCOUNTER 2017-06-24 10:02 | Observation (INO) | payer BC, MEDICARE ==
[2017-06-24] MEDS ORDERED: HYDROmorphone 1 MG/ML Syringe IM ONE ×2 (11:04→12:16)
[2017-06-24] MEDS ORDERED: Promethazine 25 MG/ML SDV IM ONE (11:05)
--- NOTE | 2017-06-24 13:00 | EDM.PDOC ---
ED HPI GENERAL MEDICAL PROBLEM - General Chief Complaint: Abdominal Pain Stated Complaint: ABDOMINAL PAIN Time Seen by Provider: 06/24/17 10:40 Source of Information: Reports: Patient History Limitations: Reports: No Limitations - History of Present Illness INITIAL COMMENTS - FREE TEXT/NARRATIVE: The patient presents with left upper quadrant abdominal pain. This is a chronic problem. The patient has chronic pancreatitis and she has been seen at the [facility] where they are the experts in that area in the region. They put a stent in her duct and she did better until the stent moved. She developed more pain and she was sent to [place] a few months ago. They did nothing more for her problem. They have her scheduled for next week for an assessment for possible surgery. She has been back every other day for the past week with nausea, vomiting, diarrhea and abdominal pain. Onset: Gradual Duration: Week(s): Quality: Reports: Sharp Severity: Severe Improves with: Reports: None Worsens with: Reports: None Associated Symptoms: Reports: Nausea/Vomiting Left Upper Abdomen Pain Score (Numeric/FACES): 9 - Related Data Allergies Allergy/AdvReac Type Severity Reaction Status Date / Time metoclopramide HCl Allergy Itching Verified 06/24/17 11:07 [From Reglan] buprenorphine [From Butrans] AdvReac Other Verified 06/24/17 11:07 ketorolac tromethamine AdvReac Stomach Verified 06/24/17 11:07 [From Toradol] Upset prochlorperazine AdvReac Vomiting Verified 06/24/17 11:07 [From Compazine] Home Meds: Home Meds Levothyroxine Sodium [Synthroid] 200 mcg PO DAILY 01/13/17 [History] Gabapentin [Neurontin] 1,200 mg PO TID PRN 04/25/17 [History] Temazepam [Restoril] 15 mg PO BEDTIME 04/25/17 [History] Ondansetron [Zofran ODT] 4 mg PO Q4H PRN #30 tab.dis 05/14/17 [Rx] oxyCODONE HCl/Acetaminophen [Percocet 5-325 mg Tablet] 1 - 2 each PO Q4H PRN # 30 tablet 06/20/17 [Rx] Past Medical History - Past Health History Medical/Surgical History: Denies Medical/Surgical History HEENT History: Reports: Glaucoma Other Respiratory History: cough RLQ Gastrointestinal History: Reports: Pancreatitis, Other (See Below) Other Gastrointestinal History: chronic pancreatitis, fatty pancreas [employer]ER History: 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 OB/BYN History: c section x3, tubes tied Musculoskeletal History: Reports: Arthritis Neurological History: Reports: TIA, Other (See Below) Other Neuro History: pseudotumor, shunt Psychiatric History: Reports: Addiction, Anxiety, Emotional Problems Endocrine/Metabolic History: Reports: Hypothyroidism Hematologic History: Reports: Anemia - Infectious Disease History Infectious Disease History: Reports: C-Difficile, MRSA Other Infectious Disease History: in 2006 - Past Surgical History HEENT Surgical History: Reports: Oral Surgery GI Surgical History: Reports: Appendectomy, Bariatric Procedure, Cholecystectomy , ERCP Female Surgical History: Reports: Section, Tubal Ligation Social & Family History - Family History Family Medical History: Noncontributory Cardiac: Reports: Bypass, Hypertension, [place] Respiratory: Reports: Asthma Oncologic: Reports: Colon - Tobacco Use Smoking Status *Q: Never Smoker Packs/Tins Daily: 1 Used Tobacco, but Quit: Yes Month Tobacco Last Used: 23 years Second Hand Smoke Exposure: No - Caffeine Use Caffeine Use: Reports: Coffee Other Caffeine Use: occasional. - Alcohol Use Days Per Week of Alcohol Use: 0 - Recreational Drug Use Recreational Drug Use: No Drug Use in Last 12 Months: No - Living Situation & Occupation Living situation: Reports: , with Spouse Occupation: Unemployed ED ROS GENERAL - Review of Systems Review Of Systems: See Below Constitutional: Reports: No Symptoms HEENT: Reports: No Symptoms Respiratory: Reports: No Symptoms Cardiovascular: Reports: No Symptoms Endocrine: Reports: No Symptoms GI/Abdominal: Reports: Abdominal Pain, Diarrhea, Nausea, Vomiting : Reports: No Symptoms Musculoskeletal: Reports: No Symptoms Skin: Reports: No Symptoms ED EXAM, GI/ABD - Physical Exam Exam: See Below Exam Limited By: No Limitations General Appearance: Alert, No Apparent Distress Ears: Normal External Exam Nose: Normal Inspection Head: Atraumatic, Normocephalic Neck: Normal Inspection Respiratory/Chest: No Respiratory Distress, Lungs Clear, Normal Breath Sounds Cardiovascular: Regular Rate, Rhythm, No Edema, No Murmur GI/Abdominal Exam: Soft, No Organomegaly, No Mass, Tender (Moderate pain upon palpation to the LLQ) Back Exam: Normal Inspection Course - Vital Signs Last Recorded V/S: Last Vital Signs Temp 97.9 F 06/24/17 10:30 Pulse 87 06/24/17 13:15 Resp 18 06/24/17 13:15 BP 114/97 H 06/24/17 13:15 Pulse Ox 99 06/24/17 13:15 - Orders/Labs/Meds Orders: Active Orders 24 hr Category Date Time Status Peripheral IV Care [RC] . DIRECTED Care 06/24/17 13:43 Active Sodium Chloride 0.9% [Normal Saline] 1,000 ml Med 06/24/17 13:43 Active IV ONETIME Sodium Chloride 0.9% [Saline Flush] Med 06/24/17 13:43 Active 10 ml FLUSH ASDIRECTED PRN Peripheral IV Insertion Adult [OM.PC] Routine Oth 06/24/17 13:43 Ordered Medication Orders Acetaminophen (Tylenol) 650 mg PO Q4H PRN PRN Reason: Pain (Mild 1-3)/fever Albuterol/Ipratropium (Duoneb 3.0-0.5 Mg/3 Ml) 3 ml NEB Q4H PRN PRN Reason: Shortness Of Breath/wheezing Bisacodyl (Dulcolax) 5 mg PO DAILY PRN PRN Reason: Constipation Docusate Sodium (Colace) 100 mg PO BID PRN PRN Reason: Constipation Hydralazine HCl (Apresoline) 20 mg IVPUSH Q4H PRN PRN Reason: Hypertension Hydromorphone HCl (Dilaudid) 0.5 mg IVPUSH Q6H PRN PRN Reason: Pain (severe 7-10) Sodium Chloride (Normal Saline) 1,000 mls @ 1,000 mls/hr IV ONETIME ONE Stop: 06/24/17 14:42 Last Admin: 06/24/17 14:09 Dose: 1,000 mls/hr Promethazine HCl 12.5 mg/ (Sodium Chloride) 50.5 mls @ 100 mls/hr IV Q6H PRN PRN Reason: Nausea/Vomiting Lorazepam (Ativan) 2 mg IVPUSH Q4H PRN PRN Reason: Seizures Lorazepam (Ativan) 1 mg IV Q6H PRN PRN Reason: Anxiety Magnesium Sulfate (Pharmacy To Dose - Magnesium Replacement) 1 dose .XX ASDIRECTED [facility] Metoprolol Tartrate (Lopressor) 5 mg IVPUSH Q4H PRN PRN Reason: Tachycardia Non-Formulary Medication (Gabapentin [Neurontin]) 1,200 mg PO TID PRN PRN Reason: Pain Non-Formulary Medication (Levothyroxine Sodium [Synthroid]) 200 mcg PO DAILY [facility] Non-Formulary Medication (Ondansetron [Zofran Odt]) 4 mg PO Q4H PRN PRN Reason: Nausea Non-Formulary Medication (Temazepam [Restoril]) 15 mg PO BEDTIME [facility] Non-Formulary Medication (Oxycodone Hcl/Acetaminophen [Percocet 5-325 Mg Tablet] ) 10 each PO Q4H PRN PRN Reason: pain relief. Ondansetron HCl (Zofran) 4 mg IV Q6H PRN PRN Reason: Nausea/Vomiting Oxycodone HCl (Oxycontin) 20 mg PO Q12HR [facility] Polyethylene Glycol (Miralax) 17 gm PO DAILY PRN PRN Reason: Constipation Potassium Chloride (Pharmacy To Dose - Potassium Replacement) 1 dose .XX ASDIRECTED [facility] Scopolamine (Transderm-Scop) 1.5 mg TOP ONETIME ONE Stop: 06/24/17 14:18 Senna/Docusate Sodium (Senna Plus) 1 tab PO BID PRN PRN Reason: Constipation Sodium Chloride (Saline Flush) 10 ml FLUSH ASDIRECTED PRN PRN Reason: Keep Vein Open Last Admin: 06/24/17 14:00 Dose: 10 ml Temazepam (Restoril) 15 mg PO BEDTIME PRN PRN Reason: Sleep Labs: Laboratory Tests 06/24/17 06/24/17 06/24/17 Range/Units 11:18 11:18 12:20 WBC 8.50 (3.98-10.04) K/mm3 RBC 4.09 (3.98-5.22) M/mm3 Hgb 12.0 (11.2-15.7) gm/L Hct 36.7 (34.1-44.9) % MCV 89.7 (79.4-94.8) fl MCH 29.3 (25.6-32.2) pg MCHC 32.7 (32.2-35.5) g/dl RDW Std Deviation 47.1 H (36.4-46.3) fL Plt Count 282 (182-369) K/mm3 MPV 10.2 (9.4-12.3) fl Neut % (Auto) 63.6 (34.0-71.1) % Lymph % (Auto) 27.3 (19.3-51.7) % [place] % (Auto) 8.5 (4.7-12.5) % Eos % (Auto) 0.4 L (0.7-5.8) Baso % (Auto) 0.1 (0.1-1.2) % Neut # (Auto) 5.41 (1.56-6.13) K/mm3 Lymph # (Auto) 2.32 (1.18-3.74) K/mm3 [place] # (Auto) 0.72 H (0.24-0.36) K/mm3 Eos # (Auto) 0.03 L (0.04-0.36) K/mm3 Baso # (Auto) 0.01 (0.01-0.08) K/mm3 Sodium 140 (136-145) mEq/L Potassium 3.7 (3.5-5.1) mEq/L Chloride 104 (98-107) mEq/L Carbon Dioxide 24 (21-32) mEq/L Anion Gap 15.7 H (5-15) BUN 9 (7-18) mg/dL Creatinine 1.0 (0.55-1.02) mg/dL Est Cr Clr Drug Dosing TNP Estimated GFR (MDRD) > 60 (>60) mL/min BUN/Creatinine Ratio 9.0 L (14-18) Glucose 97 (74-106) mg/dL Calcium 9.8 (8.5-10.1) mg/dL Total Bilirubin 0.3 (0.2-1.0) mg/dL AST 17 (15-37) U/L ALT 18 (14-59) U/L Alkaline Phosphatase 58 (46-116) U/L Total Protein 8.9 H (6.4-8.2) g/dl Albumin 4.5 (3.4-5.0) g/dl Globulin 4.4 gm/dL Albumin/Globulin Ratio 1.0 (1-2) Amylase 65 (25-115) U/L Lipase 384 (73-393) U/L Urine Color Yellow (Yellow) Urine Appearance Clear (Clear) Urine pH 6.0 (5.0-8.0) Ur Specific [place] > or = 1.030 (1.005-1.030) Urine Protein 1+ H (Negative) Urine Glucose (UA) Negative (Negative) Urine Ketones 3+ H (Negative) Urine Occult Blood Negative (Negative) Urine Nitrite Negative (Negative) Urine Bilirubin 1+ H (Negative) Urine Urobilinogen 0.2 (0.2-1.0) Ur Leukocyte Esterase Negative (Negative) Urine RBC 0-5 (0-5) /hpf Urine WBC 0-5 (0-5) /hpf Ur Epithelial Cells 20-30 H (0-5) /hpf Urine Bacteria Moderate H (FEW) /hpf Urine Mucus Not seen (FEW) /hpf Meds: Medications Generic Name Dose Route Start Last Admin Trade Name Freq PRN Reason Stop Dose Admin Acetaminophen 650 mg 06/24/17 14:12 Tylenol PO Q4H PRN Pain (Mild 1-3)/fever Albuterol/Ipratropium 3 ml 06/24/17 14:12 Duoneb 3.0-0.5 Mg/3 Ml NEB Q4H PRN Shortness Of Breath/wheezing Bisacodyl 5 mg 06/24/17 14:12 Dulcolax PO DAILY PRN Constipation Docusate Sodium 100 mg 06/24/17 14:12 Colace PO BID PRN Constipation Hydralazine HCl 20 mg 06/24/17 14:11 Apresoline IVPUSH Q4H PRN Hypertension Hydromorphone HCl 0.5 mg 06/24/17 14:19 Dilaudid IVPUSH Q6H PRN Pain (severe 7-10) Sodium Chloride 1,000 mls @ 1,000 mls/hr 06/24/17 13:43 06/24/17 14:09 Normal Saline IV 06/24/17 14:42 1,000 mls/hr ONETIME ONE Administration Promethazine HCl 12.5 mg/ 50.5 mls @ 100 mls/hr 06/24/17 14:12 Sodium Chloride IV Q6H PRN Nausea/Vomiting Lorazepam 2 mg 06/24/17 14:11 Ativan IVPUSH Q4H PRN Seizures Lorazepam 1 mg 06/24/17 14:12 Ativan IV Q6H PRN Anxiety Magnesium Sulfate 1 dose 06/24/17 14:15 Pharmacy To Dose - Magnesium Replacement .XX ASDIRECTED [facility] Metoprolol Tartrate 5 mg 06/24/17 14:11 Lopressor IVPUSH Q4H PRN Tachycardia Non-Formulary Medication 1,200 mg 06/24/17 14:11 Gabapentin [Neurontin] PO TID PRN Pain Non-Formulary Medication 200 mcg 06/25/17 09:00 Levothyroxine Sodium [Synthroid] PO DAILY [facility] Non-Formulary Medication 4 mg 06/24/17 14:11 Ondansetron [Zofran Odt] PO Q4H PRN Nausea Non-Formulary Medication 15 mg 06/24/17 21:00 Temazepam [Restoril] PO BEDTIME [facility] Non-Formulary Medication 10 each 06/24/17 14:11 Oxycodone Hcl/Acetaminophen [Percocet 5-325 Mg Tablet] PO Q4H PRN pain relief. Ondansetron HCl 4 mg 06/24/17 14:12 Zofran IV Q6H PRN Nausea/Vomiting Oxycodone HCl 20 mg 06/24/17 21:00 Oxycontin PO Q12HR [facility] Polyethylene Glycol 17 gm 06/24/17 14:12 Miralax PO DAILY PRN Constipation Potassium Chloride 1 dose 06/24/17 14:15 Pharmacy To Dose - Potassium Replacement .XX ASDIRECTED [facility] Scopolamine 1.5 mg 06/24/17 14:17 Transderm-Scop TOP 06/24/17 14:18 ONETIME ONE Senna/Docusate Sodium 1 tab 06/24/17 14:12 Senna Plus PO BID PRN Constipation Sodium Chloride 10 ml 06/24/17 13:43 06/24/17 14:00 Saline Flush FLUSH 10 ml ASDIRECTED PRN Administration Keep Vein Open Temazepam 15 mg 06/24/17 14:12 Restoril PO BEDTIME PRN Sleep Discontinued Medications Generic Name Dose Route Start Last Admin Trade Name Freq PRN Reason Stop Dose Admin Hydromorphone HCl 1 mg 06/24/17 11:04 06/24/17 11:15 Dilaudid IM 06/24/17 11:05 1 mg ONETIME ONE Administration Hydromorphone HCl 1 mg 06/24/17 12:16 06/24/17 12:20 Dilaudid IM 06/24/17 12:17 1 mg ONETIME ONE Administration Hydromorphone HCl 0.5 mg 06/24/17 13:43 06/24/17 14:06 Dilaudid IVPUSH 06/24/17 13:44 0.5 mg ONETIME ONE Administration Hydromorphone HCl 0.5 mg 06/24/17 14:12 Dilaudid IVPUSH Q4H PRN Pain (severe 7-10) Promethazine HCl 25 mg 06/24/17 11:05 06/24/17 11:13 Phenergan IM 06/24/17 11:06 25 mg ONETIME ONE Administration - Re-Assessments/Exams Free Text/Narrative Re-Assessment/Exam: 06/24/17 14:19 Her CBC and CMP look good. Her lipase is negative. Her UA is negative. I gave her a few doses of dilaudid and some phenergan IM. She feels a little better. I have ordered an IV and I feel she may need to be admitted. I called Dr Lawrence and he agreed to the admission. 06/24/17 14:23 Departure - Departure Time of Disposition: 14:20 Disposition: Refer to Observation Condition: Fair Clinical Impression: Abdominal pain Chronic pancreatitis Qualifiers: Pancreatitis type: other Qualified Code(s): K86.1 - Other chronic pancreatitis - Discharge Information - My Orders Last 24 Hours: My Active Orders 06/24/17 13:43 Peripheral IV Care [RC] . DIRECTED Sodium Chloride 0.9% [Normal Saline] 1,000 ml IV ONETIME Sodium Chloride 0.9% [Saline Flush] 10 ml FLUSH ASDIRECTED PRN Peripheral IV Insertion Adult [OM.PC] Routine - Assessment/Plan Last 24 Hours: My Active Orders 06/24/17 13:43 Peripheral IV Care [RC] . DIRECTED Sodium Chloride 0.9% [Normal Saline] 1,000 ml IV ONETIME Sodium Chloride 0.9% [Saline Flush] 10 ml FLUSH ASDIRECTED PRN Peripheral IV Insertion Adult [OM.PC] Routine
[2017-06-24] MEDS ORDERED: HYDROmorphone 0.5 MG/0.5 ML Syringe IVPUSH ONE (13:43)
[2017-06-24] MEDS ORDERED: Sodium Chloride 0.9% 10 ML Syringe FLUSH PRN (13:43)
[2017-06-24] MEDS ORDERED: Sodium Chloride 0.9% 1,000 ML IV ONE (13:43)
[2017-06-24] MEDS ORDERED: OXYCODONE HCL PO PRN (14:11)
[2017-06-24] MEDS ORDERED: Metoprolol Tartrate 5 MG/5 ML SDV IVPUSH PRN (14:11)
[2017-06-24] MEDS ORDERED: hydrALAZINE 20 MG/ML SDV IVPUSH PRN (14:11)
[2017-06-24] MEDS ORDERED: LORazepam 2 MG/ML MDV IVPUSH PRN (14:11)
[2017-06-24] MEDS ORDERED: ACETAMINOPHEN PO PRN (14:11)
[2017-06-24] MEDS ORDERED: Non-Formulary Medication 1 Each (Gabapentin [Neurontin] 1,200 MG) PO PRN (14:11)
[2017-06-24] MEDS ORDERED: [UNRECOGNIZED DRUG - OTHER] PO PRN (14:11)
[2017-06-24] MEDS ORDERED: Non-Formulary Medication 1 Each (Ondansetron [Zofran Odt] 4 MG) PO PRN (14:11)
--- NOTE | 2017-06-24 14:11 | PCM.HP ---
H&P History of Present Illness - General Date of Service: 06/24/17 Admit Problem/Dx: Chronic Pancreatitis Source of Information: Patient, Family, Old Records, Provider, RN Notes Reviewed , Significant Other History Limitations: Reports: No Limitations - History of Present Illness Initial Comments - Free Text/Narative: This is a 41 year old white female with past medical history of glaucoma, question arthritis, history of TIA, history of pseudotumor cerebri status post shunt placement, hypothyroidism, history of anemia, substance abuse, drug seeking behavior, anxiety, and emotional problems, who presents to the emergency department with complains of abdominal pain that is chronic in nature. Her c/o is associated with nausea, vomiting and diarrhea. Patient is known to me from previous admission related to pancreatitis. I referred her to go to [place] for further evaluation. She underwent stent placement and her symptom significantly improved. However when stent moved her symptom started coming back and appears to be getting more worse. Patient went back to [place] for re-evaluation but no treatment or additional management done. Patient is scheduled to go back next week for further evaluation. Her initial workup in the emergency department shows a fairly unremarkable CBC and chemistry. Her UA is not suggestive for UTI. Her lipase is 384. Patient is being admitted for abdominal pain related to her chronic pancreatitis. She understood she will be discharged tomorrow. Left Upper Abdomen Pain Score (Numeric/FACES): 4 - Related Data Allergies/Adverse Reactions: Allergies Allergy/AdvReac Type Severity Reaction Status Date / Time metoclopramide HCl Allergy Itching Verified 06/24/17 11:07 [From Reglan] buprenorphine [From Butrans] AdvReac Other Verified 06/24/17 15:53 ketorolac tromethamine AdvReac Stomach Verified 06/24/17 11:07 [From Toradol] Upset prochlorperazine AdvReac Vomiting Verified 06/24/17 11:07 [From Compazine] Home Medications: Home Meds Levothyroxine Sodium [Synthroid] 200 mcg PO DAILY 01/13/17 [History] Gabapentin [Neurontin] 1,200 mg PO TID PRN 04/25/17 [History] Temazepam [Restoril] 15 mg PO BEDTIME 04/25/17 [History] Ondansetron [Zofran ODT] 4 mg PO Q4H PRN #30 tab.dis 05/14/17 [Rx] oxyCODONE HCl/Acetaminophen [Percocet 5-325 mg Tablet] 1 - 2 each PO Q4H PRN # 30 tablet 06/20/17 [Rx] Past Medical History - Past Health History Medical/Surgical History: Denies Medical/Surgical History HEENT History: Reports: Glaucoma Other Respiratory History: cough RLQ Gastrointestinal History: Reports: Pancreatitis, Other (See Below) Other Gastrointestinal History: chronic pancreatitis, fatty pancreas 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: 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 OB/BYN History: c section x3, tubes tied Musculoskeletal History: Reports: Arthritis Neurological History: Reports: TIA, Other (See Below) Other Neuro History: pseudotumor, shunt Psychiatric History: Reports: Addiction, Anxiety, Emotional Problems Endocrine/Metabolic History: Reports: Hypothyroidism Hematologic History: Reports: Anemia - Infectious Disease History Infectious Disease History: Reports: C-Difficile, MRSA Other Infectious Disease History: in 2006 - Past Surgical History HEENT Surgical History: Reports: Oral Surgery GI Surgical History: Reports: Appendectomy, Bariatric Procedure, Cholecystectomy , ERCP Female Surgical History: Reports: Section, Tubal Ligation Social & Family History - Family History Family Medical History: Noncontributory Cardiac: Reports: Bypass, Hypertension, [place] Respiratory: Reports: Asthma Oncologic: Reports: Colon - Tobacco Use Smoking Status *Q: Never Smoker Packs/Tins Daily: 1 Used Tobacco, but Quit: Yes Month Tobacco Last Used: 23 years Second Hand Smoke Exposure: No - Caffeine Use Caffeine Use: Reports: Coffee Other Caffeine Use: occasional. - Alcohol Use Days Per Week of Alcohol Use: 0 - Recreational Drug Use Recreational Drug Use: No Drug Use in Last 12 Months: No - Living Situation & Occupation Living situation: Reports: , with Spouse Occupation: Unemployed H&P Review of Systems - Review of Systems: Review Of Systems: See Below General: Denies: Fever, Chills, Malaise, Weakness, Fatigue, Decreased Appetite HEENT: Reports: No Symptoms Pulmonary: Denies: Shortness of Breath Cardiovascular: Denies: Chest Pain Gastrointestinal: Reports: Abdominal Pain, Diarrhea, Nausea, Vomiting Genitourinary: Reports: No Symptoms Musculoskeletal: Reports: No Symptoms Skin: Denies: Cyanosis, Rash, Erythema Psychiatric: Denies: Depression, Anxiety, Hallucinations, Suicidal Ideation, Homicidal Ideation Neurological: Denies: Confusion, Difficulty Walking, Weakness, Gait Disturbance Hematologic/Lymphatic: Reports: No Symptoms Immunologic: Reports: No Symptoms Exam - Exam Exam: See Below - Vital Signs Vital Signs: Last Vital Signs Temp 36.6 C 06/24/17 10:30 Pulse 87 06/24/17 13:15 Resp 18 06/24/17 13:15 BP 114/97 H 06/24/17 13:15 Pulse Ox 99 06/24/17 13:15 Weight: 95.254 kg - Exam General: Alert, Oriented, Cooperative. No: Mild Distress HEENT: Conjunctiva Clear, EACs Clear, EOMI, Hearing Intact, Mucosa Moist & [place] , Nares Patent, Normal Nasal Septum, Posterior Pharynx Clear, Pupils Equal, Pupils Reactive Neck: Supple, Trachea Midline, +2 Carotid Pulse wo Bruit Lungs: Clear to Auscultation, Normal Respiratory Effort Cardiovascular: Regular Rate, Regular Rhythm GI/Abdominal Exam: Normal Bowel Sounds, Soft, No Organomegaly, No Distention, No Abnormal Bruit, No Mass, Tender (epigastric). No: Guarding, Rigid, Rebound (Female) Exam: Deferred Rectal (Female) Exam: Deferred Back Exam: Normal Inspection, Decreased Range of Motion Extremities: Normal Inspection, Normal Range of Motion, Non-Tender, No Pedal Edema, Normal Capillary Refill Peripheral Pulses: 2+: Posterior Tibial (L), Posterior Tibial (R), Dorsalis Pedis (L), Dorsalis Pedis (R) Skin: Warm, Dry, Intact Neuro Extensive - Mental Status: Oriented x3, Normal Cognition, Memory Intact Neuro Extensive - Motor, Sensory, Reflexes: CN II-XII Intact, Normal Gait Psychiatric: Alert, Normal Affect, Normal Mood - Patient Data Result Diagrams: 06/24/17 11:18 06/24/17 11:18 *Q Meaningful Use (ADM) - VTE *Q VTE Criteria *Q: - Stroke *Q Stroke Criteria *Q: - AMI *Q AMI Criteria *Q: Problem List Initiated/Reviewed/Updated: Yes Orders Last 24hrs: Medication Orders Sodium Chloride (Normal Saline) 1,000 mls @ 1,000 mls/hr IV ONETIME ONE Stop: 06/24/17 14:42 Last Admin: 06/24/17 14:09 Dose: 1,000 mls/hr Sodium Chloride (Saline Flush) 10 ml FLUSH ASDIRECTED PRN PRN Reason: Keep Vein Open Last Admin: 06/24/17 14:00 Dose: 10 ml Assessment/Plan Comment:: Assessment/Plan: Acute: Abdominal Pain - 2/2 Chronic Pancreatitis - She is already on Percocet - Oxycodone ER 20 mg po BID scheduled and continue home Perocet Q4 PRN Chronic Pancreatitis - She is not on pancreatic enzymes - She know I have nothing to offer here - I referred her to [place] - She needs to go back there for further help - Pain management Chronic: Glaucoma Hypothyroidism Anemia OA Hx/o TIA Pseudotumor Cerebri S/p Shunt Placement Drug Seeking Behavior Anxiety Plan: Admit to OBS Resume Home Meds No AM Labs Non-greasy and No-fatty meal Pain Medications SW/CM for d/c planning Code status:1 Patient and understood we do not have a whole to offer her here. And if she comes in for admission, she will be managed overnight and discharged in am.
[2017-06-24] MEDS ORDERED: Docusate Sodium 100 MG Cap PO PRN (14:12)
[2017-06-24] MEDS ORDERED: Albuterol/Ipratropium 3.0-0.5 MG/3 ML Neb Soln NEB PRN (14:12)
[2017-06-24] MEDS ORDERED: Bisacodyl 5 MG Tab PO PRN (14:12)
[2017-06-24] MEDS ORDERED: Ondansetron 4 MG/2 ML SDV IV PRN (14:12)
[2017-06-24] MEDS ORDERED: Temazepam 15 MG Cap PO PRN (14:12)
[2017-06-24] MEDS ORDERED: LORazepam 2 MG/ML MDV IV PRN (14:12)
[2017-06-24] MEDS ORDERED: Polyethylene Glycol 3350 Powder 17 GM Packet PO PRN (14:12)
[2017-06-24] MEDS ORDERED: HYDROmorphone 1 MG/ML Syringe IVPUSH PRN (14:12)
[2017-06-24] MEDS ORDERED: Acetaminophen 325 MG Tab PO PRN (14:12)
[2017-06-24] MEDS ORDERED: Promethazine 12.5 MG in Sodium Chloride 0.9% 50 ML IV PRN (14:12)
[2017-06-24] MEDS ORDERED: Scopolamine 1.5 MG Transdermal Patch TOP ONE (15:00)
[2017-06-24] MEDS: HYDROmorphone 0.5 MG/0.5 ML Syringe IVPUSH PRN ×2 (16:23→22:42)
[2017-06-24] MEDS ORDERED: Amylase/Lipase/Protease 5,000 Unit Cap.CR PO SCH (17:00)
[2017-06-24] MEDS: oxyCODONE 5 MG Tab PO PRN (17:51)
[2017-06-24] MEDS: Famotidine 20 MG/2 ML SDV IVPUSH SCH (20:51)
[2017-06-24] MEDS: oxyCODONE ER 20 MG TAB.ER PO SCH (20:51)
[2017-06-24] MEDS ORDERED: TEMAZEPAM 15 MG PO SCH (21:00)
[2017-06-24] MEDS ORDERED: Temazepam 15 MG Cap PO ONE (23:37)
[2017-06-25] MEDS: oxyCODONE 5 MG Tab PO PRN (03:37)
[2017-06-25] MEDS: HYDROmorphone 0.5 MG/0.5 ML Syringe IVPUSH PRN (04:30)
--- NOTE | 2017-06-25 07:24 | PCM.DCSUM1 ---
Discharge Summary - Hospital Course Brief History: This is a 41 year old white female with past medical history of glaucoma, question arthritis, history of TIA, history of pseudotumor cerebri status post shunt placement, hypothyroidism, history of anemia, substance abuse , drug seeking behavior, anxiety, and emotional problems, who presents to the emergency department with complains of abdominal pain that is chronic in nature. - Discharge Data Discharge Date: 06/25/17 Discharge Disposition: Home, Self-Care 01 Condition: Good - Discharge Diagnosis/Problem(s) (1) Chronic pancreatitis SNOMED Code(s): 191026762 ICD Code: K86.1 - OTHER CHRONIC PANCREATITIS Status: Chronic Priority: Low Current Visit: Yes Qualifiers: Pancreatitis type: other Qualified Code(s): K86.1 - Other chronic pancreatitis - Patient Summary/Data Operative Procedure(s) Performed: None Complications: None Consults: Consultations 06/24/17 14:12 Consult to Case Management [CONS] Routine Consult to [place] [CONS] Routine Consult to Spiritual Care [CONS] Routine Recommended Follow-up Testing/Procedures: None Hospital Course: She was primarily admitted for abdominal pain related to her chronic pancreatitis. Patient is known to me from previous admissions related to the same medical condition. She has been following a GI specialist in [place]. She is a scheduled to visit with them next week. On this admission she was provided adequate pain medications to improve her symptom. This morning, she feels a bit better w/o new complaints. Her hospital course was uncomplicated. The rest of her chronic medical illness remained stable during this admission. As agreed upon last night between me and the patient in the presence of her , she will now be discharged this morning. Patient will now be released without any narcotic pain medications. She was provided an Rx for Percocet by Dr. Odom on 06/20/2017 with 30 pills. She should still have plenty of it. Patient was advised to follow-up with her primary care tomorrow for further evaluation. Patient expressed their standing and in agreement with the plans as discussed above. All questions were answered. - Patient Instructions Diet: Usual Diet as Tolerated Activity: As Tolerated Driving: Do Not Drive Showering/Bathing: May Shower Notify Provider of: Fever, Increased Pain, Nausea and/or Vomiting Other/Special Instructions: - Please follow up with your family doctor. - Keep your GI appointment in [place] next week - Discharge Plan Home Medications: Home Meds Levothyroxine Sodium [Synthroid] 200 mcg PO DAILY 01/13/17 [History] Gabapentin [Neurontin] 1,200 mg PO TID PRN 04/25/17 [History] Temazepam [Restoril] 15 mg PO BEDTIME 04/25/17 [History] Ondansetron [Zofran ODT] 4 mg PO Q4H PRN #30 tab.dis 05/14/17 [Rx] oxyCODONE HCl/Acetaminophen [Percocet 5-325 mg Tablet] 1 - 2 each PO Q4H PRN # 30 tablet 06/20/17 [Rx] Referrals: Rik Walls PA-C [Primary Care Provider] - 06/26/17 3:00 pm - Discharge Summary/Plan Comment DC Time >30 min.: Yes (45 mins) Discharge Summary/Plan Comment: Discharge to Home - General Info Date of Service: 06/25/17 Admission Dx/Problem (Free Text: Chronic Pancreatitis Subjective Update: Follow Up Functional Status: Reports: Pain Controlled, Ambulating, Urinating. Denies: New Symptoms - Review of Systems General: Denies: Fever, Weakness, Fatigue, Malaise, Chills HEENT: Reports: No Symptoms Pulmonary: Denies: Shortness of Breath Cardiovascular: Denies: Chest Pain Gastrointestinal: Reports: Abdominal Pain. Denies: Nausea, Vomiting Genitourinary: Reports: No Symptoms Musculoskeletal: Reports: No Symptoms Skin: Reports: No Symptoms Neurological: Denies: Confusion, Difficulty Walking, Weakness, Gait Disturbance Psychiatric: Denies: Depression, Anxiety, Agitation, Hallucinations Systems Review Comment: No significant overnight or acute issues. She feels a little better. - Patient Data Vitals - Most Recent: Last Vital Signs Temp 36.4 C 06/25/17 03:17 Pulse 53 L 06/25/17 03:17 Resp 16 06/25/17 03:17 BP 130/70 06/25/17 03:17 Pulse Ox 96 06/25/17 03:17 Weight - Most Recent: 107.093 kg I&O - Last 24 hours: Intake & Output 06/24/17 06/25/17 06/25/17 22:59 06:59 14:59 Intake Total 0 210 Balance 0 210 Lab Results - Last 24 hrs: Laboratory Results - last 24 hr 06/24/17 Range/Units 18:53 MRSA (PCR) Negative Med Orders - Current: Current Medications Acetaminophen (Tylenol) 650 mg PO Q4H PRN PRN Reason: Pain (Mild 1-3)/fever Albuterol/Ipratropium (Duoneb 3.0-0.5 Mg/3 Ml) 3 ml NEB Q4H PRN PRN Reason: Shortness Of Breath/wheezing Bisacodyl (Dulcolax) 5 mg PO DAILY PRN PRN Reason: Constipation Docusate Sodium (Colace) 100 mg PO BID PRN PRN Reason: Constipation Famotidine (Pepcid) 20 mg IVPUSH BID EDSON Last Admin: 06/24/17 20:51 Dose: 20 mg Hydralazine HCl (Apresoline) 20 mg IVPUSH Q4H PRN PRN Reason: Hypertension Hydromorphone HCl (Dilaudid) 0.5 mg IVPUSH Q6H PRN PRN Reason: Pain (severe 7-10) Last Admin: 06/25/17 04:30 Dose: 0.5 mg Promethazine HCl 12.5 mg/ (Sodium Chloride) 50.5 mls @ 100 mls/hr IV Q6H PRN PRN Reason: Nausea/Vomiting Lorazepam (Ativan) 2 mg IVPUSH Q4H PRN PRN Reason: Seizures Lorazepam (Ativan) 1 mg IV Q6H PRN PRN Reason: Anxiety Magnesium Sulfate (Pharmacy To Dose - Magnesium Replacement) 1 dose .XX ASDIRECTED FOR[facility]LY [facility], 1928–1983 Metoprolol Tartrate (Lopressor) 5 mg IVPUSH Q4H PRN PRN Reason: Tachycardia Miscellaneous Information (Remove Patch) 0 ea TRDERM Q72H [facility], 1928–1983 Non-Formulary Medication (Gabapentin [Neurontin]) 1,200 mg PO TID PRN PRN Reason: Pain Non-Formulary Medication (Levothyroxine Sodium [Synthroid]) 200 mcg PO DAILY [facility], [facility] Non-Formulary Medication (Ondansetron [Zofran Odt]) 4 mg PO Q4H PRN PRN Reason: Nausea Non-Formulary Medication (Temazepam [Restoril]) 15 mg PO BEDTIME EDSON Ondansetron HCl (Zofran) 4 mg IV Q6H PRN PRN Reason: Nausea/Vomiting Oxycodone HCl (Oxycontin) 20 mg PO Q12HR EDSON Last Admin: 06/24/17 20:51 Dose: 20 mg Oxycodone HCl (Oxycodone) 5 mg PO Q4H PRN PRN Reason: Pain Last Admin: 06/25/17 03:37 Dose: 5 mg Polyethylene Glycol (Miralax) 17 gm PO DAILY PRN PRN Reason: Constipation Potassium Chloride (Pharmacy To Dose - Potassium Replacement) 1 dose .XX ASDIRECTED [facility], 1928[facility]1983 Senna/Docusate Sodium (Senna Plus) 1 tab PO BID PRN PRN Reason: Constipation Sodium Chloride (Saline Flush) 10 ml FLUSH ASDIRECTED PRN PRN Reason: Keep Vein Open Last Admin: 06/24/17 14:00 Dose: 10 ml Discontinued Medications Lipase/Protease/Amylase (Pancrelipase 5,000) 1 cap PO TIDMEALS [facility] Hydromorphone HCl (Dilaudid) 1 mg IM ONETIME ONE Stop: 06/24/17 11:05 Last Admin: 06/24/17 11:15 Dose: 1 mg Hydromorphone HCl (Dilaudid) 1 mg IM ONETIME ONE Stop: 06/24/17 12:17 Last Admin: 06/24/17 12:20 Dose: 1 mg Hydromorphone HCl (Dilaudid) 0.5 mg IVPUSH ONETIME ONE Stop: 06/24/17 13:44 Last Admin: 06/24/17 14:06 Dose: 0.5 mg Hydromorphone HCl (Dilaudid) 0.5 mg IVPUSH Q4H PRN PRN Reason: Pain (severe 7-10) Sodium Chloride (Normal Saline) 1,000 mls @ 1,000 mls/hr IV ONETIME ONE Stop: 06/24/17 14:42 Last Admin: 06/24/17 14:09 Dose: 1,000 mls/hr Non-Formulary Medication (Oxycodone Hcl/Acetaminophen [Percocet 5-325 Mg Tablet] ) 10 each PO Q4H PRN PRN Reason: pain relief. Promethazine HCl (Phenergan) 25 mg IM ONETIME ONE Stop: 06/24/17 11:06 Last Admin: 06/24/17 11:13 Dose: 25 mg Scopolamine (Transderm-Scop) 1.5 mg TOP ONETIME ONE Stop: 06/24/17 15:01 Last Admin: 06/24/17 16:23 Dose: 1.5 mg Temazepam (Restoril) 15 mg PO BEDTIME PRN PRN Reason: Sleep Temazepam (Restoril) 15 mg PO ONETIME ONE Stop: 06/24/17 23:38 Last Admin: 06/24/17 23:50 Dose: 15 mg - Exam General: Reports: Alert, Oriented, Cooperative, No Acute Distress HEENT: Reports: Pupils Equal, Pupils Reactive, EOMI, Mucous Membr. Moist/[place] Neck: Reports: Supple, Trachea Midline, No JVD Lungs: Reports: Clear to Auscultation, Normal Respiratory Effort Cardiovascular: Reports: Regular Rate, Regular Rhythm GI/Abdominal Exam: Normal Bowel Sounds, Soft, No Organomegaly, No Distention, No Abnormal Bruit, No Mass, Tender (No more than usual) (Female) Exam: Deferred Rectal (Female) Exam: Deferred Back Exam: Reports: Normal Inspection, Decreased Range of Motion Extremities: Normal Inspection, Normal Range of Motion, Non-Tender, No Pedal Edema, Normal Capillary Refill Skin: Reports: Warm, Dry, Intact Neurological: Reports: No New Focal Deficit Psy/Mental Status: Reports: Alert, Normal Affect, Normal Mood *Q Meaningful Use (DIS) - VTE *Q VTE Criteria *Q: - Stroke *Q Stroke Criteria *Q: - AMI *Q AMI Criteria *Q:
[2017-06-25 08:17] VITALS: BP 135/78
[2017-06-25] MEDS: Famotidine 20 MG/2 ML SDV IVPUSH SCH (08:51)
[2017-06-25] MEDS: oxyCODONE ER 20 MG TAB.ER PO SCH (08:51)
[2017-06-25] MEDS ORDERED: LEVOTHYROXINE SODIUM 200 MCG PO SCH (09:00)
== END 2017-06-25 09:47 | disposition home or self-care (01) ==
LOC: JD.ED 10:02 → JD.MS 14:04
PROVIDERS: ADMIT Internal Medicine; ATTEND Internal Medicine
DX: K86.1 Other chronic pancreatitis (principal); E03.9 Hypothyroidism, unspecified; F41.9 Anxiety disorder, unspecified; H40.9 Unspecified glaucoma; D64.9 Anemia, unspecified; M19.90 Unspecified osteoarthritis, unspecified site; Z86.73 Personal history of transient ischemic attack (TIA), and cerebral infarction without residual deficits; Z86.14 Personal history of Methicillin resistant Staphylococcus aureus infection; Z79.899 Other long term (current) drug therapy; Z88.6 Allergy status to analgesic agent; Z88.8 Allergy status to other drugs, medicaments and biological substances; Z98.51 Tubal ligation status; Z90.49 Acquired absence of other specified parts of digestive tract; Z98.890 Other specified postprocedural states
CPT/HCPCS: 36415; 80053; 81001; 82150; 83690; 85025; 87641; A9270; J1170; J2550; J7040; J7050; 96361; 96374; 96375; 96376; 99284; 99285-25; G0378

== ENCOUNTER 2017-06-25 09:43 | Emergency (ER) | payer BC, MEDICARE ==
[2017-06-25 10:16] VITALS: BP 149/96
--- NOTE | 2017-06-25 10:22 | EDM.PDOC ---
ED HPI GENERAL MEDICAL PROBLEM - General Chief Complaint: Abdominal Pain Stated Complaint: PANCRETITIS,JUST RELEASED FROM HOSPITA Time Seen by Provider: 06/25/17 10:21 Source of Information: Reports: Patient History Limitations: Reports: No Limitations - History of Present Illness INITIAL COMMENTS - FREE TEXT/NARRATIVE: Patient spent yesterday in the hospital due to exacerbation of abdominal pain felt to be secondary to chronic pancreatitis. For whatever reason upon discharge from hospital this morning she indicated that she was coming to the emergency room for proper treatment and management. Suspicion is that she is seeking narcotics for home use. She has a history of addiction to narcotics due to chronic pain syndromes. She was adamant that she required lab work to be done. Lab work was offered to her on the [place] but she indicated that she was coming to the emergency room to have it done. Therefore lab work was ordered to include serum lipase to track her pancreatitis issues. The patient was never seen by myself. ER Dir. Enedelia Ledesma became involved and had a asaf discussion with her. Patient did receive a good dose of narcotics prior to discharge from the hospital. She was told that she was not getting any further pain medication and she opted to leave the hospital before lab's return. Therefore she was never examined by me and no functional inquiry was available. Abdominal Pain Score (Numeric/FACES): 6 - Related Data Allergies Allergy/AdvReac Type Severity Reaction Status Date / Time metoclopramide HCl Allergy Itching Verified 06/25/17 10:07 [From Reglan] buprenorphine [From Butrans] AdvReac Other Verified 06/25/17 10:07 ketorolac tromethamine AdvReac Stomach Verified 06/25/17 10:07 [From Toradol] Upset prochlorperazine AdvReac Vomiting Verified 06/25/17 10:07 [From Compazine] Home Meds: Home Meds Levothyroxine Sodium [Synthroid] 200 mcg PO DAILY 01/13/17 [History] Gabapentin [Neurontin] 1,200 mg PO TID PRN 04/25/17 [History] Temazepam [Restoril] 15 mg PO BEDTIME 04/25/17 [History] Ondansetron [Zofran ODT] 4 mg PO Q4H PRN #30 tab.dis 05/14/17 [Rx] oxyCODONE HCl/Acetaminophen [Percocet 5-325 mg Tablet] 1 - 2 each PO Q4H PRN # 30 tablet 06/20/17 [Rx] Past Medical History - Past Health History Medical/Surgical History: Denies Medical/Surgical History HEENT History: Reports: Glaucoma Other Respiratory History: cough RLQ Gastrointestinal History: Reports: Pancreatitis, Other (See Below) Other Gastrointestinal History: chronic pancreatitis, fatty pancreas 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: 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 OB/BYN History: c section x3, tubes tied Musculoskeletal History: Reports: Arthritis Neurological History: Reports: TIA, Other (See Below) Other Neuro History: pseudotumor, shunt Psychiatric History: Reports: Addiction, Anxiety, Emotional Problems Endocrine/Metabolic History: Reports: Hypothyroidism Hematologic History: Reports: Anemia - Infectious Disease History Infectious Disease History: Reports: C-Difficile, MRSA Other Infectious Disease History: in 2006 - Past Surgical History HEENT Surgical History: Reports: Oral Surgery GI Surgical History: Reports: Appendectomy, Bariatric Procedure, Cholecystectomy , ERCP Female Surgical History: Reports: Section, Tubal Ligation Social & Family History - Family History Family Medical History: Noncontributory Cardiac: Reports: Bypass, Hypertension, [place] Respiratory: Reports: Asthma Oncologic: Reports: Colon - Tobacco Use Smoking Status *Q: Never Smoker Packs/Tins Daily: 1 Used Tobacco, but Quit: Yes Month Tobacco Last Used: 23 years Second Hand Smoke Exposure: No - Caffeine Use Caffeine Use: Reports: None Other Caffeine Use: occasional. - Alcohol Use Days Per Week of Alcohol Use: 0 - Recreational Drug Use Recreational Drug Use: No Drug Use in Last 12 Months: No - Living Situation & Occupation Living situation: Reports: , with Spouse Occupation: Unemployed ED ROS GENERAL - Review of Systems Review Of Systems: See Below ED EXAM, GI/ABD - Physical Exam Exam: See Below Course - Vital Signs Last Recorded V/S: Last Vital Signs Temp 36.4 C 06/25/17 10:07 Pulse 79 06/25/17 10:07 Resp 18 06/25/17 10:07 BP 149/96 H 06/25/17 10:07 Pulse Ox 98 06/25/17 10:07 - Orders/Labs/Meds Labs: Laboratory Tests 06/25/17 06/25/17 Range/Units 10:25 10:25 WBC 7.51 (3.98-10.04) K/mm3 RBC 3.94 L (3.98-5.22) M/mm3 Hgb 11.7 (11.2-15.7) gm/L Hct 36.3 (34.1-44.9) % MCV 92.1 (79.4-94.8) fl MCH 29.7 (25.6-32.2) pg MCHC 32.2 (32.2-35.5) g/dl RDW Std Deviation 49.0 H (36.4-46.3) fL Plt Count 263 (182-369) K/mm3 MPV 10.3 (9.4-12.3) fl Neutrophils % (Manual) 50 (40-60) % Band Neutrophils % 0 (0-10) % Lymphocytes % (Manual) 41 H (20-40) % Atypical Lymphs % 0 % Monocytes % (Manual) 8 (2-10) % Eosinophils % (Manual) 1 (0.7-5.8) % Basophils % (Manual) 0 L (0.1-1.2) Platelet Estimate Adequate Plt Morphology Comment Normal Polychromasia 1+ slight Anisocytosis 1+ slight Ovalocytes Few RBC Morph Comment Not Reportable Sodium 140 (136-145) mEq/L Potassium 3.4 L (3.5-5.1) mEq/L Chloride 105 (98-107) mEq/L Carbon Dioxide 25 (21-32) mEq/L Anion Gap 13.4 (5-15) BUN 13 (7-18) mg/dL Creatinine 1.0 (0.55-1.02) mg/dL Est Cr Clr Drug Dosing 79.25 mL/min Estimated GFR (MDRD) > 60 (>60) mL/min BUN/Creatinine Ratio 13.0 L (14-18) Glucose 105 (74-106) mg/dL Calcium 9.6 (8.5-10.1) mg/dL Total Bilirubin 0.3 (0.2-1.0) mg/dL AST 19 (15-37) U/L ALT 17 (14-59) U/L Alkaline Phosphatase 53 (46-116) U/L C-Reactive Protein < 0.2 (<1.0) mg/dL Total Protein 8.6 H (6.4-8.2) g/dl Albumin 4.3 (3.4-5.0) g/dl Globulin 4.3 gm/dL Albumin/Globulin Ratio 1.0 (1-2) Lipase 295 (73-393) U/L - Radiology Interpretation Free Text/Narrative:: Patient attended the ED after being discharged from the [facility] surgery floor we believe seeking narcotics for home use. She has a history of suspect chronic pancreatitis and was admitted to hospital for pain management yesterday. Apparently she was unhappy with the care she received and therefore came to the ER after receiving pain medication in large quantity prior to discharge. She indicated that no labs were done this morning although she was offered to have lab draw. They were not felt to be necessary because her serum lipase yesterday was in the normal range. She therefore did attend the ED and labs were ordered although I did not see her in person. After she had asaf discussion with Enedelia Ledesma ER director a shouldn't suddenly disappear and apparently left or a eloped. Lab work done was found to be within normal limits are unchanged from prior. Serum lipase was 290 which well within the normal limits. Therefore the patient was never seen by me and no history or physical examination was performed by me. No discharge summary was given as the patient eloped. Departure - Departure Time of Disposition: 11:45 Disposition: Eloped 07 Condition: Fair Clinical Impression: Abdominal pain - Discharge Information Referrals: Rik Walls PA-C [Primary Care Provider] - Forms: ED Department Discharge Additional Instructions: Patient eloped from the department before I even seen her. She had come over from the [facility] where she had been admitted overnight directly to the emergency room. We felt she is probably seeking narcotics to take home. Once she figured out that she was not going to receive this medication she simply disappeared. Of note she had been just given intramuscular pain medication prior to discharge from [facility]. None of the nurses even seen her leave the department. Therefore she was never truly examined by me.
== END 2017-06-25 10:35 | disposition left against medical advice (07) ==
LOC: JD.ED 09:43
DX: K86.1 Other chronic pancreatitis (principal); Z79.899 Other long term (current) drug therapy; Z53.21 Procedure and treatment not carried out due to patient leaving prior to being seen by health care provider
CPT/HCPCS: 36415; 80053; 83690; 85025; 86140; 99284

== ENCOUNTER 2017-07-17 09:37 | Emergency (ER) | payer BC, MEDICARE ==
[2017-07-17 09:50] VITALS: BP 139/88
--- NOTE | 2017-07-17 11:35 | EDM.PDOC ---
ED HPI GENERAL MEDICAL PROBLEM - General Chief Complaint: Abdominal Pain Stated Complaint: CHRONIC PANCREATITIS Time Seen by Provider: 07/17/17 10:48 Source of Information: Reports: Patient, Family (), Old Records, RN Notes Reviewed History Limitations: Reports: No Limitations - History of Present Illness INITIAL COMMENTS - FREE TEXT/NARRATIVE: The patient states that she has chronic pancreatitis, and developed a flare, including epigastric pain felt through to the back, with nausea and dry heaves, around 03:00 this morning. She states that she is being managed by the [employer] Dr. Faizan Gutierrez at [facility], who placed biliary stents in March of this year. She states that she last saw him 07/01/2017. She states that he has referred her to pain management, and that she has an appointment with a pain plant culture manager on 10/21/2017. In actual fact, while the patient repeatedly makes the claim that she has chronic pancreatitis, she does not meet criterion. For clarification: The diagnosis of acute pancreatitis requires the presence of 2 of the following 3 criteria: Acute onset of persistent, severe, epigastric pain often radiating to the back, elevation in serum lipase or amylase to 3 times or greater than the upper limit of normal, and characteristic findings of acute pancreatitis on imaging with either contrast-enhanced CT, MRI, or transabdominal ultrasonography. The diagnosis of chronic pancreatitis can be challenging since laboratory studies and imaging procedures may be normal, however, the diagnosis can be confirmed if there are calcifications within the pancreas on abdominal plain films or CT scan, and abnormal pancreatogram revealing impeding of the main pancreatic duct or ectatic sidebranches, or an abnormal secretin pancreatic function test. At this facility, the patient's lipase has been measured 63 times. The upper limit of normal at this facility is 393. 3 times the upper limit of normal is 1179. While the patient has had mild elevations of lipase in the past, her lipase has NEVER been 3 times the upper limit of normal, indeed, the highest lipase measured was 782 on 06/20/2017, less than 2 times the upper limit of normal , and many of her lipase levels are normal. The patient has undergone 11 CT scans of the abdomen and pelvis between 2013 and 06/20/2017. NONE of these CT scans demonstrated pancreatic inflammation. The patient underwent 2 ultrasounds of the abdomen, on 06/20/2015 and 06/10/2016. NEITHER of these ultrasounds found pancreatic abnormalities or inflammation. The patient has undergone 13 radiographs of the abdomen between 03/22/2013 and 06/22. NONE of these radiographs found pancreatic calcifications. The patient has undergone 5 chest/abdomen radiographs between 08/16/2015 and 05/14. NONE of these radiographs found pancreatic calcifications. Medical records previously obtained from [facility] straight that the patient was seen in their emergency department 08/01/2016, where a workup was negative. She re-presented to the emergency department the following day, , and was admitted. Her lipase was 81, amylase normal. She underwent an EGD, which was completely negative. A CT scan of the abdomen and pelvis with IV contrast on 08/02/2017 found no acute findings, including a normal-appearing pancreas. She was discharged with a diagnosis of morbid obesity, abdominal pain , and drug-seeking behavior. There is no mention of a diagnosis of acute or chronic pancreatitis. When the above was pointed out to the patient today, she again argued that she must have pancreatitis, because she was flown to [facility] from this facility for emergency treatment. Medical records from 04/25/2017 indicate that the patient was seen at this facility with a complaint of epigastric abdominal pain, nausea, vomiting, and fatty stools. She told the emergency room physician that she had been in contact with her physicians at the [facility], and that they recommended that she come to our ED to be assessed with x-rays and labs, then transferred to their facility. Her CBC, CMP, amylase , lipase, and abdomen/chest radiograph were all entirely normal. She was then flown to the [facility]. Medical records from the [facility], [place], indicate that the patient was admitted to their facility on 04/25/2017. An abdominal radiograph was performed, the patient started on an oxycodone taper, simethicone, and continued bowel regimen. The patient was to follow-up with Dr. Gutierrez in his clinic in June, and establish care with a pain management service in [place] if her pain persisted. She was discharged home on 2016. No "emergency treatment" was given, and her discharge diagnoses were 1. Acute on chronic abdominal pain 2. Insomnia 3. Hypothyroidism 4. Headaches. Again, there was no mention of a diagnosis of acute or chronic pancreatitis. When asked today why she hasn't followed up with her pain service in [place], [place], the patient's replied that "They're winding down". In actual fact, however, we have been made aware that the [place] pain [facility] has been notified of the patient's drug-seeking behavior, and are discontinuing service to her. Review of the [facility] finds that the patient has been receiving OxyContin 10 mg AND 15 mg with the most recent prescriptions filled 07/04/2017 of 30 tablets each , prescribed by Rell Geronimo, from the [place] pain [facility]. The patient stated that because she cannot get into the pain clinic until October, but has pain today, she would like us to write a prescription for pain medication. When asked why she could not get a prescription from Dr. Gutierrez, she replied that he does not write for pain medications. The patient and her were hostile and loudly verbally abusive from the moment I entered their room. At one point I attempted to reach Dr. Gutierrez, however, the phone number that the patient provided to me was for a scheduling service, and there was no answer after 15 minutes of holding. It was during this phone call that I was able to pull up the information from the [facility], and when I returned with that information and showed it to the patient and her , they became increasingly hostile and verbally abusive, with the patient's calling me a "fucking idiot" before getting up and leaving without allowing an examination. Left Abdomen Pain Score (Numeric/FACES): 7 - Related Data Allergies Allergy/AdvReac Type Severity Reaction Status Date / Time metoclopramide HCl Allergy Itching Verified 07/17/17 09:50 [From Reglan] buprenorphine [From Butrans] AdvReac Other Verified 07/17/17 09:50 ketorolac tromethamine AdvReac Stomach Verified 07/17/17 09:50 [From Toradol] Upset prochlorperazine AdvReac Vomiting Verified 07/17/17 09:50 [From Compazine] Home Meds: Home Meds Levothyroxine Sodium [Synthroid] 200 mcg PO DAILY 01/13/17 [History] Gabapentin [Neurontin] 1,200 mg PO TID PRN 04/25/17 [History] Temazepam [Restoril] 15 mg PO BEDTIME 04/25/17 [History] Ondansetron [Zofran ODT] 4 mg PO Q4H PRN #30 tab.dis 05/14/17 [Rx] Acetaminophen [Mapap] 3 tab PO TID 07/17/17 [History] Ascorbic Acid [Vitamin C with Kiersten Hips] 2 tab PO TID 07/17/17 [History] Garlic [Odorless Garlic] 2 tab PO TID 07/17/17 [History] Grape Seed Extract [Grape Seed] 50 mg PO TID 07/17/17 [History] Ibuprofen 3 tab PO TID 07/17/17 [History] Lansoprazole [Prevacid 24Hr] 15 mg PO DAILY 07/17/17 [History] Milk Thistle 2 tab PO TID 07/17/17 [History] Past Medical History HEENT History: Reports: Glaucoma 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: Musculoskeletal History: Reports: Arthritis Psychiatric History: Reports: Addiction, Anxiety, Emotional Problems Endocrine/Metabolic History: Reports: Hypothyroidism Hematologic History: Reports: Anemia - Infectious Disease History Infectious Disease History: Reports: C-Difficile, MRSA - Past Surgical History Head Surgeries/Procedures: Reports: Craniotomy (benign brain tumor excised 2002) , Shunt (interventricular) HEENT Surgical History: Reports: Oral Surgery GI Surgical History: Reports: Appendectomy, Bariatric Procedure, Cholecystectomy , ERCP Female Surgical History: Reports: Section (x 3), Tubal Ligation Social & Family History - Family History Family Medical History: Noncontributory Cardiac: Reports: Bypass, Hypertension, [place] Respiratory: Reports: Asthma Oncologic: Reports: Colon - Tobacco Use Smoking Status *Q: Former Smoker Packs/Tins Daily: 1 Used Tobacco, but Quit: Yes Month Tobacco Last Used: 23 years Second Hand Smoke Exposure: No - Caffeine Use Caffeine Use: Reports: None Other Caffeine Use: occasional. - Alcohol Use Alcohol Use History: No Days Per Week of Alcohol Use: 0 - Recreational Drug Use Recreational Drug Use: Yes Drug Use in Last 12 Months: Yes Recreational Drug Type: Reports: Dilaudid, Oxycodone - Living Situation & Occupation Living situation: Reports: , with Spouse Occupation: Unemployed ED ROS GENERAL - Review of Systems Review Of Systems: See Below Constitutional: Reports: No Symptoms HEENT: Reports: No Symptoms Respiratory: Reports: No Symptoms Cardiovascular: Reports: No Symptoms Endocrine: Reports: No Symptoms GI/Abdominal: Reports: Abdominal Pain (as per the HPI), Nausea (as per the HPI) , Vomiting (as per the HPI) : Reports: No Symptoms Musculoskeletal: Reports: No Symptoms Skin: Reports: No Symptoms Neurological: Reports: No Symptoms Psychiatric: Reports: No Symptoms Hematologic/Lymphatic: Reports: No Symptoms Immunologic: Reports: No Symptoms ED EXAM, GI/ABD - Physical Exam Exam: Not Obtained Course - Vital Signs Last Recorded V/S: Last Vital Signs Temp 36.3 C 07/17/17 09:48 Pulse 76 07/17/17 09:48 Resp 16 07/17/17 09:48 BP 139/88 07/17/17 09:48 Pulse Ox 99 07/17/17 09:48 - Re-Assessments/Exams Free Text/Narrative Re-Assessment/Exam: 07/17/17 11:38 By the patient's own admission, she is here for the same complaint of abdominal pain, nausea, and vomiting as she has been numerous times in the past. She is not claiming any new problem. This is therefore a chronic issue, and not an emergency. The patient had an expectation that she would receive narcotic pain medication from the ED until she can see a new paint formulator in October, which is entirely inappropriate and not possible. The patient left the ED without waiting for discharge paperwork. Departure - Departure Time of Disposition: 11:34 Disposition: Home, Self-Care 01 Condition: Good Clinical Impression: Drug-seeking behavior - Discharge Information Referrals: Rik Walls PA-C [Primary Care Provider] - Faizan Gutierrez MD [Physician] - Forms: ED Department Discharge Additional Instructions: You were seen in the emergency department for continued abdominal pain, nausea, and dry heaves, requesting pain medication. As this is a chronic condition, we recommend you follow-up with your [employer], Dr. Faizan Gutierrez, or a pain management service. If any other problems, please do not hesitate to return to the ER.
== END 2017-07-17 11:35 | disposition home or self-care (01) ==
LOC: JD.ED 09:37
DX: Z76.5 Malingerer [conscious simulation] (principal); R10.13 Epigastric pain; E03.9 Hypothyroidism, unspecified; Z87.891 Personal history of nicotine dependence; Z90.49 Acquired absence of other specified parts of digestive tract; Z98.84 Bariatric surgery status; Z98.51 Tubal ligation status; Z79.899 Other long term (current) drug therapy; Z88.6 Allergy status to analgesic agent; Z88.8 Allergy status to other drugs, medicaments and biological substances
CPT/HCPCS: 99283; 99284

== ENCOUNTER 2017-08-29 15:18 | Emergency (ER) | payer BC, MEDICARE ==
[2017-08-29 15:53] VITALS: BP 135/88
[2017-08-29] MEDS ORDERED: Promethazine 25 MG/ML SDV IM ONE (16:20)
[2017-08-29] MEDS ORDERED: Ketorolac 60 MG/2 ML SDV IM ONE (16:20)
[2017-08-29] MEDS ORDERED: diphenhydrAMINE 50 MG/ML SDV IM ONE (16:20)
--- NOTE | 2017-08-29 16:24 | EDM.PDOC ---
ED HPI GENERAL MEDICAL PROBLEM - General Chief Complaint: Abdominal Pain Stated Complaint: Abdominal pain Time Seen by Provider: 08/29/17 16:00 Source of Information: Reports: Patient, RN Notes Reviewed History Limitations: Reports: No Limitations - History of Present Illness INITIAL COMMENTS - FREE TEXT/NARRATIVE: 42 year old female presents to the ED with complaints of epigatric pain that is most severe in her back. She reports nausea and vomiting since last evening. She attempted to take her oxycodone IR this morning but vomited immediately afterwards. She has a history of chronic pancreatitis. She sees a specialist, Dr. Gutierrez, at [facility] and is scheduled for a recheck in two weeks. Brisa says they are going to try the Wippel procedure to see if this can help with her chronic pancreatitis. She denies fever, chills, sweats, or body aches. Her PCP is Dr. Geronimo at [facility] in [place]. I was able to speak with Dr. Geronimo about Brisa. He referred her to the [facility] by Dr. Geronimo and underwent biliary/pancreatic stenting but unfortunately the procedure was not successful in improving her symptoms. He corroborates Brisa's story. He sees her monthly and manages her chronic pain. She is under a pain contract with him. He has been able to wean her off extended release oxycontin. She is now only on IR oxycodone. They have standing orders at [facility] where she can receive Toradol, Benadryl and Phenergan once a week. She does occasionally receive Demeral as well if that regimen does not offer adequate pain relief. She is only allowed to utilize these standing orders once a week. Dr. Geronimo says she was in the ER this past week for abdominal pain. Dr. Geronimo agrees that Brisa has an opioid dependence but says that she has been compliant and cooperative with his treatment plan and pain contract. Left Upper Abdominal Pain Score (Numeric/FACES): 10 - Related Data Allergies Allergy/AdvReac Type Severity Reaction Status Date / Time metoclopramide HCl Allergy Itching Verified 08/29/17 15:53 [From Reglan] buprenorphine [From Butrans] AdvReac Other Verified 08/29/17 15:53 ketorolac tromethamine AdvReac Stomach Verified 08/29/17 15:53 [From Toradol] Upset prochlorperazine AdvReac Vomiting Verified 08/29/17 15:53 [From Compazine] Home Meds: Home Meds Levothyroxine Sodium [Synthroid] 200 mcg PO DAILY 01/13/17 [History] Gabapentin [Neurontin] 1,200 mg PO TID PRN 04/25/17 [History] Temazepam [Restoril] 15 mg PO BEDTIME 04/25/17 [History] Ondansetron [Zofran ODT] 4 mg PO Q4H PRN #30 tab.dis 05/14/17 [Rx] Acetaminophen [Mapap] 3 tab PO TID 07/17/17 [History] Ascorbic Acid [Vitamin C with Kiersten Hips] 2 tab PO TID 07/17/17 [History] Garlic [Odorless Garlic] 2 tab PO TID 07/17/17 [History] Grape Seed Extract [Grape Seed] 50 mg PO TID 07/17/17 [History] Ibuprofen 3 tab PO TID 07/17/17 [History] Lansoprazole [Prevacid 24Hr] 15 mg PO DAILY 07/17/17 [History] Milk Thistle 2 tab PO TID 07/17/17 [History] Ondansetron HCl [Zofran] 4 mg PO Q6H PRN #20 tablet 08/29/17 [Rx] Past Medical History - Past Health History Medical/Surgical History: Denies Medical/Surgical History HEENT History: Reports: Glaucoma Other Respiratory History: cough RLQ Gastrointestinal History: Reports: Pancreatitis, Other (See Below) Other Gastrointestinal History: chronic pancreatitis, fatty pancreas CARPENTER History: 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 OB/BYN History: c section x3, tubes tied Musculoskeletal History: Reports: Arthritis Neurological History: Reports: TIA, Other (See Below) Other Neuro History: pseudotumor, shunt Psychiatric History: Reports: Addiction, Anxiety, Emotional Problems Endocrine/Metabolic History: Reports: Hypothyroidism Hematologic History: Reports: Anemia - Infectious Disease History Infectious Disease History: Reports: C-Difficile, MRSA Other Infectious Disease History: in 2006 - Past Surgical History Head Surgeries/Procedures: Reports: Craniotomy (benign brain tumor excised 2002) , Shunt (interventricular) HEENT Surgical History: Reports: Oral Surgery GI Surgical History: Reports: Appendectomy, Bariatric Procedure, Cholecystectomy , ERCP Female Surgical History: Reports: Section (x 3), Tubal Ligation Social & Family History - Family History Family Medical History: Noncontributory Cardiac: Reports: Bypass, Hypertension, [place] Respiratory: Reports: Asthma Oncologic: Reports: Colon - Tobacco Use Smoking Status *Q: Former Smoker Packs/Tins Daily: 1 Used Tobacco, but Quit: Yes Month Tobacco Last Used: 23 years Second Hand Smoke Exposure: No - Caffeine Use Caffeine Use: Reports: None Other Caffeine Use: occasional. - Alcohol Use Days Per Week of Alcohol Use: 0 - Recreational Drug Use Recreational Drug Use: Yes Drug Use in Last 12 Months: Yes Recreational Drug Type: Reports: Dilaudid, Oxycodone - Living Situation & Occupation Living situation: Reports: , with Spouse Occupation: Unemployed ED ROS GENERAL - Review of Systems Review Of Systems: See Below Constitutional: Reports: No Symptoms. Denies: Fever, Chills, Diaphoresis Respiratory: Reports: No Symptoms. Denies: Shortness of Breath Cardiovascular: Reports: No Symptoms. Denies: Chest Pain GI/Abdominal: Reports: Abdominal Pain, Nausea, Vomiting. Denies: Constipation, Diarrhea ED EXAM, GI/ABD - Physical Exam Exam: See Below Exam Limited By: No Limitations General Appearance: Alert, WD/WN, No Apparent Distress Respiratory/Chest: No Respiratory Distress, Lungs Clear, Normal Breath Sounds Cardiovascular: Normal Peripheral Pulses, Regular Rate, Rhythm, No Murmur GI/Abdominal Exam: Normal Bowel Sounds, Soft, No Organomegaly, No Distention, Tender (epigastric ) Back Exam: Normal Inspection, Full Range of Motion. No: CVA Tenderness (L), CVA Tenderness (R) Neurological: Alert, Oriented, Normal Cognition Course - Vital Signs Last Recorded V/S: Last Vital Signs Temp 96.9 F 08/29/17 15:50 Pulse 76 08/29/17 15:50 Resp 16 08/29/17 15:50 BP 135/88 08/29/17 15:50 Pulse Ox 99 08/29/17 15:50 - Orders/Labs/Meds Meds: Medications Discontinued Medications Generic Name Dose Route Start Last Admin Trade Name Freq PRN Reason Stop Dose Admin Diphenhydramine HCl 25 mg 08/29/17 16:20 08/29/17 16:36 Benadryl IM 08/29/17 16:21 25 mg ONETIME ONE Administration Diphenhydramine HCl Confirm 08/29/17 16:37 08/29/17 16:44 Benadryl Administered 08/29/17 16:38 Not Given Dose 50 mg .ROUTE .STK-MED ONE Ketorolac Tromethamine 60 mg 08/29/17 16:20 08/29/17 16:40 Toradol IM 08/29/17 16:21 60 mg ONETIME ONE Administration Promethazine HCl 25 mg 08/29/17 16:20 08/29/17 16:38 Phenergan IM 08/29/17 16:21 25 mg ONETIME ONE Administration - Re-Assessments/Exams Free Text/Narrative Re-Assessment/Exam: The patient's symptoms are consistent with her history of chronic pancreatitis. The patient understands that this is a chronic problem and does not want to be admitted to the hospital. No workup is indicated as her vitals are stable, exam is normal, and she is not toxic appearing. I explained to her that I talked to Dr. Geronimo and that we all need to be on the same page. She is agreeable to this. I also explained to Brisa that we have agreed that we will not continue to given her opioids. I offered her the regimen described by Dr. Geronimo (toradol , benadryl, and phenergan). This should control her nausea and she can then continue her outpatient pain medication. She is agreeable to this. She does not have any nausea medication at home but says zofran usually helps. I did agree to provide her with an Rx for zofran so that she can manage her nausea at home and therefore utilize her prescription pain medication. Discharge instructions as documented. Of note, her is not with her today but she does have a friend here to drive her home. Departure - Departure Time of Disposition: 16:22 Disposition: Home, Self-Care 01 Condition: Good Clinical Impression: Chronic pancreatitis Qualifiers: Pancreatitis type: other Qualified Code(s): K86.1 - Other chronic pancreatitis - Discharge Information Prescriptions: Ondansetron HCl [Zofran] 4 mg PO Q6H PRN #20 tablet PRN Reason: Nausea/Vomiting Instructions: Acute Pancreatitis, [id number] Referrals: Rik Walls PA-C [Primary Care Provider] - Forms: ED Department Discharge Additional Instructions: Continue with your pain management regimen as advised by Dr. Geronimo Take oxycodone as prescribed for pain Zofran 4mg every 6 hours as needed for nausea. Drink plenty of fluids No driving today due to sedating medications given in the ER Return to ER as needed See Dr. Gutierrez at [facility] as scheduled.
[2017-08-29] MEDS ORDERED: diphenhydrAMINE 50 MG/ML SDV ONE (16:37)
== END 2017-08-29 16:50 | disposition home or self-care (01) ==
LOC: JD.ED 15:18
DX: K86.1 Other chronic pancreatitis (principal); Z87.891 Personal history of nicotine dependence; E03.9 Hypothyroidism, unspecified; Z88.8 Allergy status to other drugs, medicaments and biological substances; Z79.899 Other long term (current) drug therapy
CPT/HCPCS: 96372; 99284; J1200; J1885; J2550; 99283

== ENCOUNTER 2017-09-02 08:50 | Emergency (ER) | payer BC, MEDICARE ==
[2017-09-02 09:03] VITALS: BP 151/102
[2017-09-02] MEDS ORDERED: diphenhydrAMINE 50 MG/ML SDV IM ONE (09:44)
[2017-09-02] MEDS ORDERED: Promethazine 25 MG/ML SDV IM ONE (09:44)
[2017-09-02] MEDS ORDERED: Ketorolac 60 MG/2 ML SDV IM ONE (09:45)
--- NOTE | 2017-09-02 10:05 | EDM.PDOC ---
ED HPI GENERAL MEDICAL PROBLEM - General Chief Complaint: Abdominal Pain Stated Complaint: ABDOMINAL PAIN Time Seen by Provider: 09/02/17 09:16 Source of Information: Reports: Patient History Limitations: Reports: No Limitations - History of Present Illness INITIAL COMMENTS - FREE TEXT/NARRATIVE: The patient presents with left upper abdominal pain that radiates to her back. This is a chronic problem and this is a flare up of her chronic pain. She sees a doctor in [place] that is prescribing her pain medications. She also sees Rik Walls in our clinic for other issues. She also is being seen by Dr Gutierrez at the [facility]. She has been diagonosed with chronic abdominal pain and chronic pancreatitis. She says she is scheduled for a pre op in October for a whipple procedure. She has nausea but no vomiting. Onset: Gradual Duration: Day(s): Location: Reports: Abdomen Quality: Reports: Sharp Severity: Severe Improves with: Reports: None Worsens with: Reports: None Associated Symptoms: Reports: Fever/Chills (She had a fever yesterday), Nausea/ Vomiting. 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 Left Upper Abdomen Pain Score (Numeric/FACES): 8 - Related Data Allergies Allergy/AdvReac Type Severity Reaction Status Date / Time metoclopramide HCl Allergy Itching Verified 09/02/17 09:03 [From Reglan] buprenorphine [From Butrans] AdvReac Other Verified 09/02/17 09:03 ketorolac tromethamine AdvReac Stomach Verified 09/02/17 09:03 [From Toradol] Upset prochlorperazine AdvReac Vomiting Verified 09/02/17 09:03 [From Compazine] Home Meds: Home Meds Levothyroxine Sodium [Synthroid] 200 mcg PO DAILY 01/13/17 [History] Gabapentin [Neurontin] 1,200 mg PO TID PRN 04/25/17 [History] Temazepam [Restoril] 15 mg PO BEDTIME 04/25/17 [History] Ondansetron [Zofran ODT] 4 mg PO Q4H PRN #30 tab.dis 05/14/17 [Rx] Acetaminophen [Mapap] 3 tab PO TID 07/17/17 [History] Ascorbic Acid [Vitamin C with Kiersten Hips] 2 tab PO TID 07/17/17 [History] Garlic [Odorless Garlic] 2 tab PO TID 07/17/17 [History] Grape Seed Extract [Grape Seed] 50 mg PO TID 07/17/17 [History] Ibuprofen 3 tab PO TID 07/17/17 [History] Lansoprazole [Prevacid 24Hr] 15 mg PO DAILY 07/17/17 [History] Milk Thistle 2 tab PO TID 07/17/17 [History] Ondansetron HCl [Zofran] 4 mg PO Q6H PRN #20 tablet 08/29/17 [Rx] oxyCODONE HCl/Acetaminophen [Percocet 10-325 mg Tablet] 1 each PO DAILY [History] Past Medical History - Past Health History Medical/Surgical History: Denies Medical/Surgical History HEENT History: Reports: Glaucoma Other Respiratory History: cough RLQ Gastrointestinal History: Reports: Pancreatitis, Other (See Below) Other Gastrointestinal History: chronic pancreatitis, fatty pancreas 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 OB/BYN History: c section x3, tubes tied Musculoskeletal History: Reports: Arthritis Neurological History: Reports: TIA, Other (See Below) Other Neuro History: pseudotumor, shunt Psychiatric History: Reports: Addiction, Anxiety, Emotional Problems Endocrine/Metabolic History: Reports: Hypothyroidism Hematologic History: Reports: Anemia - Infectious Disease History Infectious Disease History: Reports: C-Difficile, MRSA Other Infectious Disease History: in 2006 - Past Surgical History Head Surgeries/Procedures: Reports: Craniotomy, Shunt HEENT Surgical History: Reports: Oral Surgery GI Surgical History: Reports: Appendectomy, Bariatric Procedure, Cholecystectomy , ERCP Female Surgical History: Reports: Section, Tubal Ligation Social & Family History - Family History Family Medical History: Noncontributory Cardiac: Reports: Bypass, Hypertension, [place] Respiratory: Reports: Asthma Oncologic: Reports: Colon - Tobacco Use Smoking Status *Q: Never Smoker Packs/Tins Daily: 1 Used Tobacco, but Quit: Yes Month Tobacco Last Used: 23 years Second Hand Smoke Exposure: No - Caffeine Use Caffeine Use: Reports: None Other Caffeine Use: occasional. - Alcohol Use Days Per Week of Alcohol Use: 0 - Recreational Drug Use Recreational Drug Use: No Drug Use in Last 12 Months: Yes Recreational Drug Type: Reports: Dilaudid, Oxycodone - Living Situation & Occupation Living situation: Reports: , with Spouse Occupation: Unemployed ED ROS GENERAL - Review of Systems Review Of Systems: See Below Constitutional: Reports: Fever. Denies: Chills HEENT: Reports: No Symptoms Respiratory: Reports: No Symptoms Cardiovascular: Reports: No Symptoms Endocrine: Reports: No Symptoms GI/Abdominal: Reports: Abdominal Pain, Nausea, Vomiting : Reports: No Symptoms Musculoskeletal: Reports: No Symptoms ED EXAM, GI/ABD - Physical Exam Exam: See Below Exam Limited By: No Limitations General Appearance: Alert, No Apparent Distress Ears: Normal External Exam Nose: Normal Inspection Head: Atraumatic, Normocephalic Neck: Normal Inspection Respiratory/Chest: No Respiratory Distress, Lungs Clear, Normal Breath Sounds Cardiovascular: Regular Rate, Rhythm, No Edema, No Murmur GI/Abdominal Exam: Soft, Non-Tender, No Organomegaly, No Mass Extremities: Normal Inspection Course - Vital Signs Last Recorded V/S: Last Vital Signs Temp 97.2 F 09/02/17 08:59 Pulse 80 09/02/17 08:59 Resp 18 09/02/17 08:59 BP 151/102 H 09/02/17 08:59 Pulse Ox 98 09/02/17 08:59 - Orders/Labs/Meds Meds: Medications Discontinued Medications Generic Name Dose Route Start Last Admin Trade Name Dominic PRN Reason Stop Dose Admin Diphenhydramine HCl 50 mg 09/02/17 09:44 09/02/17 09:52 Benadryl IM 09/02/17 09:45 50 mg ONETIME ONE Administration Hydromorphone HCl 1 mg 09/02/17 10:41 Dilaudid IM 09/02/17 10:42 ONETIME ONE Ketorolac Tromethamine 60 mg 09/02/17 09:45 09/02/17 09:51 Toradol IM 09/02/17 09:46 60 mg ONETIME ONE Administration Promethazine HCl 25 mg 09/02/17 09:44 09/02/17 09:52 Phenergan IM 09/02/17 09:45 25 mg ONETIME ONE Administration - Re-Assessments/Exams Free Text/Narrative Re-Assessment/Exam: 09/02/17 10:04 The patient is on a pain contract from Dr Geronimo in [place]. She gets oxycontin from him. He has her get toradol, benadryl and phenergan if she comes in to the ER. I will head sampler her those 3 meds. 09/02/17 10:44 She is still having pain so I ordered dilaudid 1mg IM. Departure - Departure Time of Disposition: 10:45 Disposition: Home, Self-Care 01 Condition: Good Clinical Impression: Chronic abdominal pain, Chronic pain syndrome - Discharge Information Referrals: Rik Walls PA-C [Primary Care Provider] - Forms: ED Department Discharge Additional Instructions: Take your medication as prescribed. Please follow up with your doctor.
[2017-09-02] MEDS ORDERED: HYDROmorphone 1 MG/ML Syringe IM ONE (10:41)
== END 2017-09-02 11:00 | disposition home or self-care (01) ==
LOC: JD.ED 08:50
DX: G89.4 Chronic pain syndrome (principal); R10.12 Left upper quadrant pain; F41.9 Anxiety disorder, unspecified; E03.9 Hypothyroidism, unspecified; Z86.2 Personal history of diseases of the blood and blood-forming organs and certain disorders involving the immune mechanism; Z98.84 Bariatric surgery status; Z90.49 Acquired absence of other specified parts of digestive tract; Z98.51 Tubal ligation status; Z87.891 Personal history of nicotine dependence; Z79.899 Other long term (current) drug therapy; Z88.6 Allergy status to analgesic agent; Z88.8 Allergy status to other drugs, medicaments and biological substances
CPT/HCPCS: 96372; 99284; J1170; J1200; J1885; J2550; 99283

== ENCOUNTER 2017-09-11 14:14 | Emergency (ER) | payer BC, MEDICARE ==
[2017-09-11 14:35] VITALS: BP 154/100
--- NOTE | 2017-09-11 16:04 | EDM.PDOC ---
ED HPI GENERAL MEDICAL PROBLEM - General Chief Complaint: Abdominal Pain Stated Complaint: ABDOMINAL PAIN Time Seen by Provider: 09/11/17 16:03 - History of Present Illness INITIAL COMMENTS - FREE TEXT/NARRATIVE: 42-year-old female returns with recurrent abdominal pain. Patient bleeding of chronic pancreatitis she is scheduled to have a Whipple procedure this winter. The patient is been followed closely by physician Luis Spencer who prescribes her pain medication she's allowed weekly Toradol Phenergan and Benadryl this usually works with her pain. The patient is not having any fevers chills no nausea no vomiting. She has occasional loose BM and epigastric and left-sided upper abdominal discomfort. The patient denies taking any ibuprofen recently. Left Upper Abdomen Pain Score (Numeric/FACES): 7 - Related Data Allergies Allergy/AdvReac Type Severity Reaction Status Date / Time metoclopramide HCl Allergy Itching Verified 09/11/17 14:29 [From Reglan] buprenorphine [From Butrans] AdvReac Other Verified 09/11/17 14:29 ketorolac tromethamine AdvReac Stomach Verified 09/11/17 14:29 [From Toradol] Upset prochlorperazine AdvReac Vomiting Verified 09/11/17 14:29 [From Compazine] Home Meds: Home Meds Levothyroxine Sodium [Synthroid] 200 mcg PO DAILY 01/13/17 [History] Gabapentin [Neurontin] 1,200 mg PO TID PRN 04/25/17 [History] Temazepam [Restoril] 15 mg PO BEDTIME 04/25/17 [History] Ondansetron [Zofran ODT] 4 mg PO Q4H PRN #30 tab.dis 05/14/17 [Rx] Acetaminophen [Mapap] 3 tab PO TID 07/17/17 [History] Ascorbic Acid [Vitamin C with Kiersten Hips] 2 tab PO TID 07/17/17 [History] Garlic [Odorless Garlic] 2 tab PO TID 07/17/17 [History] Grape Seed Extract [Grape Seed] 50 mg PO TID 07/17/17 [History] Ibuprofen 3 tab PO TID 07/17/17 [History] Lansoprazole [Prevacid 24Hr] 15 mg PO DAILY 07/17/17 [History] Milk Thistle 2 tab PO TID 07/17/17 [History] oxyCODONE HCl/Acetaminophen [Percocet 10-325 mg Tablet] 1 each PO DAILY [History] Past Medical History - Past Health History Medical/Surgical History: Denies Medical/Surgical History HEENT History: Reports: Glaucoma Other Respiratory History: cough RLQ Gastrointestinal History: Reports: Pancreatitis, Other (See Below) Other Gastrointestinal History: chronic pancreatitis, 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 OB/BYN History: c section x3, tubes tied Musculoskeletal History: Reports: Arthritis Neurological History: Reports: TIA, Other (See Below) Other Neuro History: pseudotumor, shunt Psychiatric History: Reports: Addiction, Anxiety, Emotional Problems Endocrine/Metabolic History: Reports: Hypothyroidism Hematologic History: Reports: Anemia - Infectious Disease History Infectious Disease History: Reports: C-Difficile, MRSA Other Infectious Disease History: in 2006 - Past Surgical History Head Surgeries/Procedures: Reports: Craniotomy, Shunt HEENT Surgical History: Reports: Oral Surgery GI Surgical History: Reports: Appendectomy, Bariatric Procedure, Cholecystectomy , ERCP Female Surgical History: Reports: Section, Tubal Ligation Social & Family History - Family History Family Medical History: Noncontributory Cardiac: Reports: Bypass, Hypertension, [place] Respiratory: Reports: Asthma Oncologic: Reports: Colon - Tobacco Use Smoking Status *Q: Never Smoker Packs/Tins Daily: 1 Used Tobacco, but Quit: Yes Month Tobacco Last Used: 23 years Second Hand Smoke Exposure: No - Caffeine Use Caffeine Use: Reports: None Other Caffeine Use: occasional. - Alcohol Use Days Per Week of Alcohol Use: 0 - Recreational Drug Use Recreational Drug Use: No Drug Use in Last 12 Months: Yes Recreational Drug Type: Reports: Dilaudid, Oxycodone - Living Situation & Occupation Living situation: Reports: , with Spouse Occupation: Unemployed ED ROS GENERAL - Review of Systems Review Of Systems: See Below Constitutional: Reports: No Symptoms. Denies: Fever, Chills HEENT: Reports: No Symptoms Respiratory: Reports: No Symptoms, Cough GI/Abdominal: Reports: Abdominal Pain, Nausea. Denies: Constipation, Vomiting : Reports: No Symptoms Neurological: Reports: No Symptoms ED EXAM, GI/ABD - Physical Exam Exam: See Below Exam Limited By: No Limitations General Appearance: Alert, No Apparent Distress, Other (Vital signs stable afebrile no acute distress) Respiratory/Chest: No Respiratory Distress, Lungs Clear, Normal Breath Sounds Cardiovascular: Regular Rate, Rhythm, No Edema, No Murmur GI/Abdominal Exam: Normal Bowel Sounds, Soft, Other (She has some left upper quadrant discomfort and to a lesser degree left epigastric discomfort no other abdominal discomfort noted no rebound guarding or rigidity noted) Back Exam: Normal Inspection. No: CVA Tenderness (L), CVA Tenderness (R) Extremities: Normal Inspection, No Pedal Edema Course - Vital Signs Last Recorded V/S: Last Vital Signs Temp 36.7 C 09/11/17 14:32 Pulse 64 09/11/17 14:32 Resp 18 09/11/17 14:32 BP 154/100 H 09/11/17 14:32 Pulse Ox 100 09/11/17 14:32 - Orders/Labs/Meds Meds: Medications Discontinued Medications Generic Name Dose Route Start Last Admin Trade Name Freq PRN Reason Stop Dose Admin Diphenhydramine HCl 25 mg 09/11/17 16:19 09/11/17 16:36 Benadryl IM 09/11/17 16:20 25 mg ONETIME ONE Administration Hydromorphone HCl 0.5 mg 09/11/17 17:46 09/11/17 17:56 Dilaudid IM 09/11/17 17:47 0.5 mg ONETIME ONE Administration Ketorolac Tromethamine 60 mg 09/11/17 16:19 09/11/17 16:37 Toradol IM 09/11/17 16:20 60 mg ONETIME ONE Administration Promethazine HCl 25 mg 09/11/17 16:19 09/11/17 16:36 Phenergan IM 09/11/17 16:20 25 mg ONETIME ONE Administration - Re-Assessments/Exams Free Text/Narrative Re-Assessment/Exam: 09/11/17 18:17 Patient received IM Toradol Benadryl and Phenergan. This helped with some of that but not completely patient was given 0.5 mg of Dilaudid she had good pain relief from this she'll be discharged home Departure - Departure Time of Disposition: 18:17 Disposition: Home, Self-Care 01 Clinical Impression: Chronic abdominal pain - Discharge Information Referrals: Rell Geronimo MD [Primary Care Provider] - Forms: ED Department Discharge Additional Instructions: Return the emergency room with any questions problems worsening symptoms. Follow-up with your regular provider in [place] this next week.
[2017-09-11] MEDS ORDERED: Ketorolac 60 MG/2 ML SDV IM ONE (16:19)
[2017-09-11] MEDS ORDERED: Promethazine 25 MG/ML SDV IM ONE (16:19)
[2017-09-11] MEDS ORDERED: diphenhydrAMINE 50 MG/ML SDV IM ONE (16:19)
[2017-09-11] MEDS ORDERED: HYDROmorphone 0.5 MG/0.5 ML Syringe IM ONE (17:46)
== END 2017-09-11 18:30 | disposition home or self-care (01) ==
LOC: JD.ED 14:14
DX: G89.29 Other chronic pain (principal); R10.12 Left upper quadrant pain; Z88.6 Allergy status to analgesic agent; Z88.8 Allergy status to other drugs, medicaments and biological substances; Z79.899 Other long term (current) drug therapy
CPT/HCPCS: 96372; 99284; J1170; J1200; J1885; J2550

== ENCOUNTER 2017-10-27 11:23 | Emergency (ER) | payer BC, MEDICARE ==
[2017-10-27 11:37] VITALS: BP 134/93
[2017-10-27] MEDS ORDERED: Ondansetron 4 MG/2 ML SDV IM ONE (11:46)
[2017-10-27] MEDS ORDERED: HYDROmorphone 1 MG/ML Syringe IM ONE ×2 (11:46→12:58)
--- NOTE | 2017-10-27 11:51 | EDM.PDOC ---
ED HPI GENERAL MEDICAL PROBLEM - General Chief Complaint: Abdominal Pain Stated Complaint: ABD PAIN Time Seen by Provider: 10/27/17 11:45 Source of Information: Reports: Patient, Family (spouse) History Limitations: Reports: No Limitations - History of Present Illness INITIAL COMMENTS - FREE TEXT/NARRATIVE: 42-year-old female presents to the ED in the accompaniment of her . Patient reports that she developed left upper quadrant abdominal pain last evening which has progressed throughout the night and is worse this morning. Was up all night pacing the floor is no position is comfortable. Emesis times one of bilious material this morning. She has not been able to eat today. Patient has a history of chronic pancreatitis. She states as of recent it's been a little bit better with less frequent bouts or attacks. She's been using grapeseed extract which seems to have helped and she remains on pancreatic enzyme supplements with all meals and snacks. She states for a while her stools have actually become less loos/diarrhea and semi-formed but are looser today. Pain is constant in the left upper quadrant and radiates through to her left flank and mid back characteristic of previous attacks. 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.) Left Upper Abdomen Pain Score (Numeric/FACES): 8 - Related Data Allergies Allergy/AdvReac Type Severity Reaction Status Date / Time metoclopramide HCl Allergy Itching Verified 10/31/17 09:35 [From Reglan] buprenorphine [From Butrans] AdvReac Other Verified 10/31/17 09:35 prochlorperazine AdvReac Vomiting Verified 10/31/17 09:35 [From Compazine] Home Meds: Home Meds Levothyroxine Sodium [Synthroid] 300 mcg PO DAILY 01/13/17 [History] Gabapentin [Neurontin] 1,200 mg PO TID PRN 04/25/17 [History] Ondansetron [Zofran ODT] 4 mg PO Q4H PRN #30 tab.dis 05/14/17 [Rx] Acetaminophen [Mapap] 3 tab PO TID 07/17/17 [History] Ascorbic Acid [Vitamin C with Kiersten Hips] 2 tab PO TID 07/17/17 [History] Garlic [Odorless Garlic] 2 tab PO TID 07/17/17 [History] Grape Seed Extract [Grape Seed] 50 mg PO TID 07/17/17 [History] Ibuprofen 3 tab PO TID 07/17/17 [History] Lansoprazole [Prevacid 24Hr] 15 mg PO DAILY 07/17/17 [History] Milk Thistle 2 tab PO TID 07/17/17 [History] oxyCODONE HCl/Acetaminophen [Percocet 10-325 mg Tablet] 1 each PO DAILY [History] Lipase/Protease/Amylase [Marleni Melgar 4,200 Unit Cap] 1 tab PO DAILY 10/27/17 [ History] traZODone 50 mg PO BEDTIME PRN 10/31/17 [History] Past Medical History - Past Health History Medical/Surgical History: Denies Medical/Surgical History HEENT History: Reports: Glaucoma Other Respiratory History: cough RLQ Gastrointestinal History: Reports: Pancreatitis, Other (See Below) Other Gastrointestinal History: chronic pancreatitis, 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: c section x3, tubes tied Musculoskeletal History: Reports: Arthritis Neurological History: Reports: TIA, Other (See Below) Other Neuro History: pseudotumor, shunt Psychiatric History: Reports: Addiction, Anxiety, Emotional Problems Endocrine/Metabolic History: Reports: Hypothyroidism Hematologic History: Reports: Anemia - Infectious Disease History Infectious Disease History: Reports: C-Difficile, MRSA Other Infectious Disease History: in 2006 - Past Surgical History Head Surgeries/Procedures: Reports: Craniotomy, Shunt HEENT Surgical History: Reports: Oral Surgery GI Surgical History: Reports: Appendectomy, Bariatric Procedure, Cholecystectomy , ERCP Female Surgical History: Reports: Section, Tubal Ligation Social & Family History - Family History Family Medical History: Noncontributory Cardiac: Reports: Bypass, Hypertension, [place] Respiratory: Reports: Asthma Oncologic: Reports: Colon - Tobacco Use Smoking Status *Q: Never Smoker Packs/Tins Daily: 1 Used Tobacco, but Quit: Yes Month Tobacco Last Used: 23 years Second Hand Smoke Exposure: No - Caffeine Use Caffeine Use: Reports: None Other Caffeine Use: occasional. - Alcohol Use Days Per Week of Alcohol Use: 0 - Recreational Drug Use Recreational Drug Use: No Drug Use in Last 12 Months: Yes Recreational Drug Type: Reports: Dilaudid, Oxycodone - Living Situation & Occupation Living situation: Reports: , with Spouse Occupation: Unemployed ED ROS GENERAL - Review of Systems Review Of Systems: See Below Constitutional: Reports: No Symptoms, Fever (She felt a low-grade fever and she feels that it's improved after Tylenol. She has use Zofran sublingually today as well) HEENT: Reports: No Symptoms Respiratory: Reports: No Symptoms Cardiovascular: Reports: No Symptoms Endocrine: Reports: No Symptoms GI/Abdominal: Reports: Abdominal Pain (See history of present illness), Diarrhea (Those are loose due to chronic stearrhea.) : Reports: Frequency Musculoskeletal: Reports: No Symptoms Skin: Reports: No Symptoms Neurological: Reports: No Symptoms Psychiatric: Reports: No Symptoms Hematologic/Lymphatic: Reports: No Symptoms ED EXAM, GI/ABD - Physical Exam Exam: See Below Exam Limited By: No Limitations General Appearance: Alert, WD/WN, No Apparent Distress, Other (Unchanged from previous visits. She is very stoic.) Eyes: Bilateral: Normal Appearance (No jaundice.) Throat/Mouth: Other (Tongue is mildly dry.) Respiratory/Chest: No Respiratory Distress, Lungs Clear, Normal Breath Sounds Cardiovascular: Normal Peripheral Pulses, Regular Rate, Rhythm, No Edema, No Gallop, No Murmur, No Rub GI/Abdominal Exam: Soft, No Organomegaly, No Abnormal Bruit, No Mass, Pelvis Stable, Guarding ( left lateral abdominal wall with mild guarding.), Tender ( Tenderness his left upper quadrant from epigastrium to), Abnormal Bowel Sounds. No: Rigid, Rebound, Hepatomegaly, Splenomegaly Extremities: Normal Inspection, Normal Range of Motion, Non-Tender, No Pedal Edema Neurological: Alert, Oriented, CN II-XII Intact, Normal Cognition, Normal Gait Psychiatric: Normal Affect, Normal Mood Skin Exam: Warm, Dry, Intact, Normal Color, No Rash Course - Vital Signs Last Recorded V/S: Last Vital Signs Temp 36.9 C 10/27/17 11:32 Pulse 80 10/27/17 11:32 Resp 13 10/27/17 11:32 BP 134/93 H 10/27/17 11:32 Pulse Ox 100 10/27/17 11:32 - Orders/Labs/Meds Labs: Laboratory Tests 10/27/17 10/27/17 Range/Units 11:58 11:58 WBC 7.28 (3.98-10.04) K/mm3 RBC 3.71 L (3.98-5.22) M/mm3 Hgb 11.0 L (11.2-15.7) gm/L Hct 34.9 (34.1-44.9) % MCV 94.1 (79.4-94.8) fl MCH 29.6 (25.6-32.2) pg MCHC 31.5 L (32.2-35.5) g/dl RDW Std Deviation 50.6 H (36.4-46.3) fL Plt Count 202 (182-369) K/mm3 MPV 10.2 (9.4-12.3) fl Neutrophils % (Manual) 54 (40-60) % Band Neutrophils % 0 (0-10) % Lymphocytes % (Manual) 39 (20-40) % Atypical Lymphs % 0 % Monocytes % (Manual) 5 (2-10) % Eosinophils % (Manual) 1 (0.7-5.8) % Basophils % (Manual) 1 (0.1-1.2) Platelet Estimate Adequate RBC Morph Comment Normal Sodium 140 (136-145) mEq/L Potassium 3.8 (3.5-5.1) mEq/L Chloride 105 (98-107) mEq/L Carbon Dioxide 29 (21-32) mEq/L Anion Gap 9.8 (5-15) BUN 10 (7-18) mg/dL Creatinine 0.8 (0.55-1.02) mg/dL Est Cr Clr Drug Dosing 98.05 mL/min Estimated GFR (MDRD) > 60 (>60) mL/min BUN/Creatinine Ratio 12.5 L (14-18) Glucose 95 (74-106) mg/dL Calcium 9.3 (8.5-10.1) mg/dL Total Bilirubin 0.2 (0.2-1.0) mg/dL AST 29 (15-37) U/L ALT 27 (14-59) U/L Alkaline Phosphatase 63 (46-116) U/L C-Reactive Protein < 0.2 (<1.0) mg/dL Total Protein 7.7 (6.4-8.2) g/dl Albumin 3.5 (3.4-5.0) g/dl Globulin 4.2 gm/dL Albumin/Globulin Ratio 0.8 L (1-2) Lipase 435 H (73-393) U/L Meds: Medications Discontinued Medications Generic Name Dose Route Start Last Admin Trade Name Freq PRN Reason Stop Dose Admin Diphenhydramine HCl 50 mg 10/27/17 12:59 Benadryl IM 10/27/17 13:00 ONETIME ONE Hydromorphone HCl 2 mg 10/27/17 11:46 10/27/17 11:59 Dilaudid IM 10/27/17 11:47 2 mg ONETIME ONE Administration Hydromorphone HCl 1 mg 10/27/17 12:58 Dilaudid IM 10/27/17 12:59 ONETIME ONE Ondansetron HCl 8 mg 10/27/17 11:46 10/27/17 11:58 Zofran IM 10/27/17 11:47 8 mg ONETIME ONE Administration - Radiology Interpretation Free Text/Narrative:: 42-year-old female presents to the ED with acute onset of left upper quadrant abdominal pain radiating through to her left flank and in the scapular area since last night. She has a history of recurrent chronic pancreatitis. She states as of late it's been a little better controlled with diet and grape seed extract and milk thistle. Trying homeopathic remedies as conventional medicine doesn't seem to have any ability to control her symptoms. She remains on pancreatic enzymes with all meals and snacks. Examination is revealing of left upper quadrant abdominal pain and tenderness with some mild guarding. There is no rebound tenderness or peritonitis. I see no reason to image her at this time. We'll have routine labs done including a serum lipase. Will give her 2 mg of Dilaudid IM with Zofran 8 mg IM. - Re-Assessments/Exams Free Text/Narrative Re-Assessment/Exam: 10/27/17 12:52 Labs reveal a white count of 7.28 with a normal differential hemoglobin is 11.0 with hematocrit of 34.9. Platelet count is 202,000. Sodium is 140 potassium was 3.8. Cord 105 bicarbonate 29. Anion gap is 9.8. BUN was 10. Creatinine is 0.8. EGFR is greater than 60. Glucose was 95. Calcium 9.3. Liver function was normal C-reactive protein is less than 0.2 lipase today is mildly elevated at 435. 10/27/17 13:00: Findings discussed with the patient. I will give her further 1 mg of Dilaudid and 50 mg of Benadryl for further pain relief and she tentatively will be discharged from the ED. She will follow-up if pain does not markedly improve over the next 24-36 hours or vomiting continues. Departure - Departure Time of Disposition: 12:59 Disposition: Home, Self-Care 01 Condition: Fair Clinical Impression: Relapsing chronic pancreatitis, Nausea and vomiting in adult - Discharge Information Instructions: Acute Pancreatitis, [id number] Referrals: Rell Geronimo MD [Primary Care Provider] - Forms: ED Department Discharge Additional Instructions: Evaluation the emergency room today in regards to recurrent pancreatitis. The serum lipase today is mildly elevated at 435. You're treated with intramuscular medications Dilaudid on 2 separate occasions for pain relief. Of course you know how to manage through pancreatic attack with clear fluids and no carbohydrates or food until things settle down. Continue pain medication as needed and Zofran as needed.
[2017-10-27] MEDS ORDERED: diphenhydrAMINE 50 MG/ML SDV IM ONE (12:59)
== END 2017-10-27 13:43 | disposition home or self-care (01) ==
LOC: JD.ED 11:23
DX: K86.1 Other chronic pancreatitis (principal); Z88.8 Allergy status to other drugs, medicaments and biological substances; Z88.6 Allergy status to analgesic agent; Z79.899 Other long term (current) drug therapy
CPT/HCPCS: 36415; 80053; 83690; 85025; 86140; 96372; 99284; J1170; J2405; 99283

== ENCOUNTER 2017-10-28 08:29 | Emergency (ER) | payer BC, MEDICARE ==
[2017-10-28 09:01] VITALS: BP 120/77
[2017-10-28] MEDS ORDERED: Ketorolac 30 MG/ML SDV IM ONE (09:31)
[2017-10-28] MEDS ORDERED: HYDROmorphone 0.5 MG/0.5 ML Syringe IM ONE (09:31)
[2017-10-28] MEDS ORDERED: Ondansetron 4 MG Tab.DIS PO ONE (09:31)
--- NOTE | 2017-10-28 09:33 | EDM.PDOC ---
ED HPI GENERAL MEDICAL PROBLEM - General Chief Complaint: Abdominal Pain Stated Complaint: ABDOMINAL PAIN Time Seen by Provider: 10/28/17 09:10 Source of Information: Reports: Patient History Limitations: Reports: No Limitations - History of Present Illness INITIAL COMMENTS - FREE TEXT/NARRATIVE: The patient is a 42-year-old female with a chief complaint of abdominal pain. She is a history of chronic pancreatitis and is well known to this emergency department as she's had over 30 visits this year alone. She comes in today complaining of pain. She states that she was in town to go shopping and then her pain was worse than usual and so she decided to come in. She's been taking pancreatic enzymes and supplements. She was seen in this emergency department yesterday for pain and had a negative laboratory workup and was discharged. States that it is her typical pain. It's located in her upper abdomen and in her back. She's also had "fatty stools. States that she has plans to follow up with her specialist in [place] in November. Left Upper Abdominal Pain Score (Numeric/FACES): 8 - Related Data Allergies Allergy/AdvReac Type Severity Reaction Status Date / Time metoclopramide HCl Allergy Itching Verified 10/28/17 08:55 [From Reglan] buprenorphine [From Butrans] AdvReac Other Verified 10/28/17 08:55 ketorolac tromethamine AdvReac Stomach Verified 10/28/17 08:55 [From Toradol] Upset prochlorperazine AdvReac Vomiting Verified 10/28/17 08:55 [From Compazine] Home Meds: Home Meds Levothyroxine Sodium [Synthroid] 300 mcg PO DAILY 01/13/17 [History] Gabapentin [Neurontin] 1,200 mg PO TID PRN 04/25/17 [History] Ondansetron [Zofran ODT] 4 mg PO Q4H PRN #30 tab.dis 05/14/17 [Rx] Acetaminophen [Mapap] 3 tab PO TID 07/17/17 [History] Ascorbic Acid [Vitamin C with Kiersten Hips] 2 tab PO TID 07/17/17 [History] Garlic [Odorless Garlic] 2 tab PO TID 07/17/17 [History] Grape Seed Extract [Grape Seed] 50 mg PO TID 07/17/17 [History] Ibuprofen 3 tab PO TID 07/17/17 [History] Lansoprazole [Prevacid 24Hr] 15 mg PO DAILY 07/17/17 [History] Milk Thistle 2 tab PO TID 07/17/17 [History] oxyCODONE HCl/Acetaminophen [Percocet 10-325 mg Tablet] 1 each PO DAILY [History] Lipase/Protease/Amylase [Marleni Melgar 4,200 Unit Cap] 1 tab PO DAILY 10/27/17 [ History] Past Medical History - Past Health History Medical/Surgical History: Denies Medical/Surgical History HEENT History: Reports: Glaucoma Other Respiratory History: cough RLQ Gastrointestinal History: Reports: Pancreatitis, Other (See Below) Other Gastrointestinal History: chronic pancreatitis, fatty pancreas 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 OB/BYN History: c section x3, tubes tied Musculoskeletal History: Reports: Arthritis Neurological History: Reports: TIA, Other (See Below) Other Neuro History: pseudotumor, shunt Psychiatric History: Reports: Addiction, Anxiety, Emotional Problems Endocrine/Metabolic History: Reports: Hypothyroidism Hematologic History: Reports: Anemia - Infectious Disease History Infectious Disease History: Reports: C-Difficile, MRSA Other Infectious Disease History: in 2006 - Past Surgical History Head Surgeries/Procedures: Reports: Craniotomy, Shunt HEENT Surgical History: Reports: Oral Surgery GI Surgical History: Reports: Appendectomy, Bariatric Procedure, Cholecystectomy , ERCP Female Surgical History: Reports: Section, Tubal Ligation Social & Family History - Family History Family Medical History: Noncontributory Cardiac: Reports: Bypass, Hypertension, [place] Respiratory: Reports: Asthma Oncologic: Reports: Colon - Tobacco Use Smoking Status *Q: Never Smoker Packs/Tins Daily: 1 Used Tobacco, but Quit: Yes Month Tobacco Last Used: 23 years Second Hand Smoke Exposure: No - Caffeine Use Caffeine Use: Reports: None Other Caffeine Use: occasional. - Alcohol Use Days Per Week of Alcohol Use: 0 - Recreational Drug Use Recreational Drug Use: No Drug Use in Last 12 Months: Yes Recreational Drug Type: Reports: Dilaudid, Oxycodone - Living Situation & Occupation Living situation: Reports: , with Spouse Occupation: Unemployed ED ROS GENERAL - Review of Systems Review Of Systems: See Below Constitutional: Denies: Fever Respiratory: Reports: No Symptoms Cardiovascular: Reports: No Symptoms GI/Abdominal: Reports: Abdominal Pain ED EXAM, GI/ABD - Physical Exam Exam: See Below Exam Limited By: No Limitations General Appearance: Alert, WD/WN, No Apparent Distress Eyes: Bilateral: Normal Appearance Ears: Normal External Exam Nose: Normal Inspection Throat/Mouth: Normal Inspection Head: Atraumatic, Normocephalic Neck: Normal Inspection Respiratory/Chest: No Respiratory Distress GI/Abdominal Exam: Soft, No Distention, Other (Doesn't appear to be uncomfortable during exam while she is distracted. Mild epigastric tenderness, no rebound or guarding.). No: Distended, Rebound Neurological: Alert, Oriented, Normal Cognition Psychiatric: Normal Affect, Normal Mood Skin Exam: Warm, Dry, Intact, Normal Color Course - Vital Signs Last Recorded V/S: Last Vital Signs Temp 36.3 C 10/28/17 08:55 Pulse 69 10/28/17 08:55 Resp 16 10/28/17 08:55 BP 120/77 10/28/17 08:55 Pulse Ox 100 10/28/17 08:55 - Orders/Labs/Meds Meds: Medications Discontinued Medications Generic Name Dose Route Start Last Admin Trade Name Dominic PRN Reason Stop Dose Admin Hydromorphone HCl 0.5 mg 10/28/17 09:31 10/28/17 09:56 Dilaudid IM 10/28/17 09:32 0.5 mg ONETIME ONE Administration Ketorolac Tromethamine 60 mg 10/28/17 09:31 10/28/17 09:57 Toradol IM 10/28/17 09:32 60 mg ONETIME ONE Administration Ondansetron HCl 8 mg 10/28/17 09:31 10/28/17 09:57 Zofran Odt PO 10/28/17 09:32 8 mg ONETIME ONE Administration - Re-Assessments/Exams Free Text/Narrative Re-Assessment/Exam: 10/28/17 13:04 Patient's labs yesterday were normal. She is quite well-appearing and does not appear to be uncomfortable at all. Her exam is quite benign. I have no concern for an emergency medical condition today. She's had over 30 emergency department visits this year alone with consistently negative workups. Agreed to give her intramuscular doses of pain and nausea medications. She is to follow- up with her specialist in [place] as planned. Departure - Departure Time of Disposition: 13:05 Disposition: Home, Self-Care 01 Clinical Impression: Abdominal pain Abdominal pain Qualifiers: Abdominal location: generalized Qualified Code(s): R10.84 - Generalized abdominal pain - Discharge Information Instructions: Abdominal Pain, Adult, [id number] Referrals: Rell Geronimo MD [Primary Care Provider] - Forms: ED Department Discharge Additional Instructions: 1. Continue bland diet 2. Follow up with your specialist in [place] as planned
== END 2017-10-28 10:15 | disposition home or self-care (01) ==
LOC: JD.ED 08:29
DX: R10.12 Left upper quadrant pain (principal); Z88.8 Allergy status to other drugs, medicaments and biological substances; Z88.6 Allergy status to analgesic agent; Z79.899 Other long term (current) drug therapy; Z87.891 Personal history of nicotine dependence
CPT/HCPCS: 96372; 99283; A9270; J1170; J1885

== ENCOUNTER 2017-10-31 09:17 | Emergency (ER) | payer BC, MEDICARE ==
[2017-10-31 09:35] VITALS: BP 131/88
[2017-10-31] MEDS ORDERED: Ketorolac 30 MG/ML SDV IM ONE (09:42)
[2017-10-31] MEDS ORDERED: Ondansetron 4 MG Tab.DIS PO ONE (09:43)
[2017-10-31] MEDS ORDERED: Dicyclomine 20 MG/2 ML SDV IM ONE (09:47)
[2017-10-31] MEDS ORDERED: oxyCODONE 5 MG Tab PO ONE (09:47)
--- NOTE | 2017-10-31 09:55 | EDM.PDOC ---
ED HPI GENERAL MEDICAL PROBLEM - General Chief Complaint: Abdominal Pain Stated Complaint: PANCREATITIS Time Seen by Provider: 10/31/17 09:38 Source of Information: Reports: Patient History Limitations: Reports: No Limitations - History of Present Illness INITIAL COMMENTS - FREE TEXT/NARRATIVE: The patient is a 42-year-old female who is well-known to this emergency department who comes in for exacerbation of her usual abdominal pain. She has a history of chronic pancreatitis, though I highly question whether her many recent visits are due to active disease as her laboratory workup has always been negative and multiple CT scans at this institution has failed to demonstrate any stranding or other objective evidence of inflammation in her abdomen. She was most recently seen here twice this week, including on October 27 at which time labs including CBC, chemistry, lipase and CRP were all negative. She was given intramuscular Dilaudid and sent home. She returned 2 days later and saw myself with a similar story. At that time she was quite well- appearing and we did not repeat labs but treated her pain and discharged her. She returns again today complaining of ongoing abdominal pain. She states that this exacerbation started last night. It is located in the upper abdomen, it is sharp, constant. She's been taking pancreatic enzymes and states that she adheres to a bland diet but continues to have pain. No fever. There is nothing different about this episode according to her. No clear provoking factor. Abdominal Pain Score (Numeric/FACES): 8 - Related Data Allergies Allergy/AdvReac Type Severity Reaction Status Date / Time metoclopramide HCl Allergy Itching Verified 10/31/17 09:35 [From Reglan] buprenorphine [From Butrans] AdvReac Other Verified 10/31/17 09:35 prochlorperazine AdvReac Vomiting Verified 10/31/17 09:35 [From Compazine] Home Meds: Home Meds Levothyroxine Sodium [Synthroid] 300 mcg PO DAILY 01/13/17 [History] Gabapentin [Neurontin] 1,200 mg PO TID PRN 04/25/17 [History] Ondansetron [Zofran ODT] 4 mg PO Q4H PRN #30 tab.dis 05/14/17 [Rx] Acetaminophen [Mapap] 3 tab PO TID 07/17/17 [History] Ascorbic Acid [Vitamin C with Kiersten Hips] 2 tab PO TID 07/17/17 [History] Garlic [Odorless Garlic] 2 tab PO TID 07/17/17 [History] Grape Seed Extract [Grape Seed] 50 mg PO TID 07/17/17 [History] Ibuprofen 3 tab PO TID 07/17/17 [History] Lansoprazole [Prevacid 24Hr] 15 mg PO DAILY 07/17/17 [History] Milk Thistle 2 tab PO TID 07/17/17 [History] oxyCODONE HCl/Acetaminophen [Percocet 10-325 mg Tablet] 1 each PO DAILY [History] Lipase/Protease/Amylase [Pancrekarlos Melgar 4,200 Unit Cap] 1 tab PO DAILY 10/27/17 [ History] traZODone 50 mg PO BEDTIME PRN 10/31/17 [History] Past Medical History - Past Health History Medical/Surgical History: Denies Medical/Surgical History HEENT History: Reports: Glaucoma Other Respiratory History: cough RLQ Gastrointestinal History: Reports: Pancreatitis, Other (See Below) Other Gastrointestinal History: chronic pancreatitis, fatty pancreas 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 OB/BYN History: c section x3, tubes tied Musculoskeletal History: Reports: Arthritis Neurological History: Reports: TIA, Other (See Below) Other Neuro History: pseudotumor, shunt Psychiatric History: Reports: Addiction, Anxiety, Emotional Problems Endocrine/Metabolic History: Reports: Hypothyroidism Hematologic History: Reports: Anemia - Infectious Disease History Infectious Disease History: Reports: C-Difficile, MRSA Other Infectious Disease History: in 2006 - Past Surgical History Head Surgeries/Procedures: Reports: Craniotomy, Shunt HEENT Surgical History: Reports: Oral Surgery GI Surgical History: Reports: Appendectomy, Bariatric Procedure, Cholecystectomy , ERCP Female Surgical History: Reports: Section, Tubal Ligation Social & Family History - Family History Family Medical History: Noncontributory Cardiac: Reports: Bypass, Hypertension, CT Respiratory: Reports: Asthma Oncologic: Reports: Colon - Tobacco Use Smoking Status *Q: Never Smoker Packs/Tins Daily: 1 Used Tobacco, but Quit: Yes Month Tobacco Last Used: 23 years Second Hand Smoke Exposure: No - Caffeine Use Caffeine Use: Reports: Coffee Other Caffeine Use: occasional. - Alcohol Use Days Per Week of Alcohol Use: 0 - Recreational Drug Use Recreational Drug Use: No Drug Use in Last 12 Months: Yes Recreational Drug Type: Reports: Dilaudid, Oxycodone - Living Situation & Occupation Living situation: Reports: , with Spouse Occupation: Unemployed ED ROS GENERAL - Review of Systems Review Of Systems: See Below Constitutional: Denies: Fever HEENT: Reports: No Symptoms Respiratory: Denies: Shortness of Breath Cardiovascular: Denies: Chest Pain GI/Abdominal: Reports: Abdominal Pain ED EXAM, GI/ABD - Physical Exam Exam: See Below Exam Limited By: No Limitations General Appearance: Alert, WD/WN, No Apparent Distress Eyes: Bilateral: Normal Appearance Ears: Normal External Exam Nose: Normal Inspection Throat/Mouth: Normal Inspection, Normal Oropharynx, Normal Voice, No Airway Compromise Head: Atraumatic, Normocephalic Neck: Normal Inspection, Supple, Non-Tender Respiratory/Chest: No Respiratory Distress, Lungs Clear, Normal Breath Sounds, Chest Non-Tender Cardiovascular: Normal Peripheral Pulses, Regular Rate, Rhythm, No Murmur GI/Abdominal Exam: Soft, No Distention, Other (mild epigastric TTP, no rebound or guarding) Extremities: Normal Inspection, Normal Range of Motion Neurological: Alert, Oriented, Normal Cognition, No Motor/Sensory Deficits Psychiatric: Normal Affect, Normal Mood Skin Exam: Warm, Dry, Intact, Normal Color, No Rash Course - Vital Signs Last Recorded V/S: Last Vital Signs Temp 36.7 C 10/31/17 09:31 Pulse 82 10/31/17 09:31 Resp 16 10/31/17 09:31 BP 131/88 10/31/17 09:31 Pulse Ox 96 10/31/17 09:31 - Orders/Labs/Meds Meds: Medications Discontinued Medications Generic Name Dose Route Start Last Admin Trade Name Dominic PRN Reason Stop Dose Admin Dicyclomine HCl 20 mg 10/31/17 09:47 10/31/17 10:03 Bentyl IM 10/31/17 09:48 20 mg ONETIME ONE Administration Ketorolac Tromethamine 30 mg 10/31/17 09:42 10/31/17 10:02 Toradol IM 10/31/17 09:43 30 mg ONETIME ONE Administration Ondansetron HCl 8 mg 10/31/17 09:43 10/31/17 10:05 Zofran Odt PO 10/31/17 09:44 8 mg ONETIME ONE Administration Oxycodone HCl 5 mg 10/31/17 09:47 10/31/17 10:05 Oxycodone PO 10/31/17 09:48 5 mg ONETIME ONE Administration - Re-Assessments/Exams Free Text/Narrative Re-Assessment/Exam: 10/31/17 11:09 Discussed her symptoms at length. I am very similar with Ms. Prsaad and have taken care of her on many occasions. In fact she has had around 35 visits to this Emergency Department this year alone. Her workups here have always been negative. Her CT scans have always been negative and there is never been any evidence of acute pathology or stranding or inflammation around the pancreas. Her inflammatory markers have also always been negative, including an impressively negative CRP earlier this week at <0.2. I find it highly doubtful that her recurrent abdominal pain is actually due to pancreatic pathology given the above. She has had a cholecystectomy and appendectomy. States it's been a while since she's had a colonoscopy. Regardless, she is always well-appearing when I seen her. Has normal vital signs. Doesn't actually appear to be in much pain, and has a very benign abdominal exam. I don't doubt that she is uncomfortable, however I do not feel that her repeated visits for intramuscular narcotics are an appropriate approach to her discomfort. I discussed this honestly with her. She understood. She states that she is planning to see her performance architect in [place] this coming month. We will treat her pain today with intramuscular Toradol and a single tablet of a narcotic. She is cleared of an Emergency medical condition today based on history and exam. 10/31/17 11:12 Departure - Departure Time of Disposition: 09:52 Disposition: Home, Self-Care 01 Clinical Impression: Abdominal pain Qualifiers: Abdominal location: epigastric Qualified Code(s): R10.13 - Epigastric pain - Discharge Information Instructions: Abdominal Pain, Adult Referrals: Rik Walls PA-C [Primary Care Provider] - Forms: ED Department Discharge Additional Instructions: 1. Take your usual medications for pain. 2. [place] diet. Drink plenty of fluids. 3. Follow up with Dr. Gutierrez in [place] as soon as possible
== END 2017-10-31 10:08 | disposition home or self-care (01) ==
LOC: JD.ED 09:17
DX: R10.13 Epigastric pain (principal); E03.9 Hypothyroidism, unspecified; Z88.8 Allergy status to other drugs, medicaments and biological substances; Z79.899 Other long term (current) drug therapy
CPT/HCPCS: 96372; 99284; A9270; J0500; J1885; 99283

== ENCOUNTER 2017-11-08 10:21 | Emergency (ER) | payer BC, MEDICARE ==
[2017-11-08 10:30] VITALS: BP 152/95
[2017-11-08] MEDS ORDERED: Alum Hydrox/Mag Hydrox/Simeth 30 ML, Lidocaine 2% 15 ML PO ONE ×2 (11:30)
[2017-11-08] MEDS ORDERED: diphenhydrAMINE 50 MG/ML SDV IM ONE (11:30)
[2017-11-08] MEDS ORDERED: Ketorolac 30 MG/ML SDV IM ONE (11:30)
[2017-11-08] MEDS ORDERED: Ondansetron 4 MG Tab.DIS PO ONE (11:31)
--- NOTE | 2017-11-08 11:40 | EDM.PDOC ---
ED HPI GENERAL MEDICAL PROBLEM - General Chief Complaint: Abdominal Pain Stated Complaint: ABDOMINAL PAIN Time Seen by Provider: 11/08/17 11:07 Source of Information: Reports: Patient, Old Records History Limitations: Reports: No Limitations - History of Present Illness INITIAL COMMENTS - FREE TEXT/NARRATIVE: Patient a 42-year-old female with a history of chronic pancreatitis presents to the ED complaining of epigastric pain with nausea vomiting that started approximately 3 days ago and has progressively gotten worse. States this morning became nauseated and vomited 1. She has been taking her home medications including Percocet tabs 10-325 with no relief. Over the past 3 days she's had intermittent loose stools. No fever, chills, SOB, chest pain, dysuria , or any additional complaints. She has been evaluated by a GI specialist at [facility] and also pain specialist at the [facility] for chronic pancreatitis. She was last seen by Dr. Montes pain specialist first part of October with no changes to medications. She is scheduled to see Dr. Gutierrez GI specialist and Dr. Montes pain specialist in November 30, 2017 to discuss further treatment. Patient states they're planning on doing a possibly Whipple procedure although she has no cancer. Question the validity. Patient has been seen multiple times in the ER for similar complaints as today. In total patient has been evaluated in the E.D. approximately 35 times this past year. Abdomen Pain Score (Numeric/FACES): 9 - Related Data Allergies Allergy/AdvReac Type Severity Reaction Status Date / Time metoclopramide HCl Allergy Itching Verified 10/31/17 09:35 [From Reglan] buprenorphine [From Butrans] AdvReac Other Verified 10/31/17 09:35 prochlorperazine AdvReac Vomiting Verified 10/31/17 09:35 [From Compazine] Home Meds: Home Meds Levothyroxine Sodium [Synthroid] 300 mcg PO DAILY 01/13/17 [History] Gabapentin [Neurontin] 1,200 mg PO TID PRN 04/25/17 [History] Ondansetron [Zofran ODT] 4 mg PO Q4H PRN #30 tab.dis 05/14/17 [Rx] Acetaminophen [Mapap] 3 tab PO TID PRN 07/17/17 [History] Ascorbic Acid [Vitamin C with Kiersten Hips] 2 tab PO TID 07/17/17 [History] Garlic [Odorless Garlic] 2 tab PO TID 07/17/17 [History] Grape Seed Extract [Grape Seed] 50 mg PO TID 07/17/17 [History] Ibuprofen 3 tab PO TID PRN 07/17/17 [History] Lansoprazole [Prevacid 24Hr] 15 mg PO DAILY 07/17/17 [History] Milk Thistle 2 tab PO TID 07/17/17 [History] oxyCODONE HCl/Acetaminophen [Percocet 10-325 mg Tablet] 1 each PO DAILY [History] Lipase/Protease/Amylase [Pancrekarlos Dr 4,200 Unit Cap] 1 tab PO DAILY 10/27/17 [ History] Temazepam [Temazepam] 15 mg PO BEDTIME PRN 11/08/17 [History] Past Medical History - Past Health History Medical/Surgical History: Denies Medical/Surgical History HEENT History: Reports: Glaucoma Other Respiratory History: cough RLQ Gastrointestinal History: Reports: Pancreatitis, Other (See Below) Other Gastrointestinal History: chronic pancreatitis, fatty pancreas [employer] History: 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 OB/BYN History: c section x3, tubes tied Musculoskeletal History: Reports: Arthritis Neurological History: Reports: TIA, Other (See Below) Other Neuro History: pseudotumor, shunt Psychiatric History: Reports: Addiction, Anxiety, Emotional Problems Endocrine/Metabolic History: Reports: Hypothyroidism Hematologic History: Reports: Anemia - Infectious Disease History Infectious Disease History: Reports: C-Difficile, MRSA Other Infectious Disease History: in 2006 - Past Surgical History Head Surgeries/Procedures: Reports: Craniotomy, Shunt HEENT Surgical History: Reports: Oral Surgery GI Surgical History: Reports: Appendectomy, Bariatric Procedure, Cholecystectomy , ERCP Female Surgical History: Reports: Section, Tubal Ligation Social & Family History - Family History Family Medical History: Noncontributory Cardiac: Reports: Bypass, Hypertension, [place] Respiratory: Reports: Asthma Oncologic: Reports: Colon - Tobacco Use Smoking Status *Q: Never Smoker Packs/Tins Daily: 1 Used Tobacco, but Quit: Yes Month Tobacco Last Used: 23 years Second Hand Smoke Exposure: No - Caffeine Use Caffeine Use: Reports: None Other Caffeine Use: occasional. - Alcohol Use Days Per Week of Alcohol Use: 0 - Recreational Drug Use Recreational Drug Use: No Drug Use in Last 12 Months: Yes Recreational Drug Type: Reports: Dilaudid, Oxycodone - Living Situation & Occupation Living situation: Reports: , with Spouse Occupation: Unemployed ED ROS GENERAL - Review of Systems Review Of Systems: See Below Constitutional: Reports: Malaise, Decreased Appetite. Denies: Fever, Chills Respiratory: Reports: No Symptoms Cardiovascular: Reports: No Symptoms GI/Abdominal: Reports: Abdominal Pain (Epigastric), Diarrhea (Intermittent loose stools), Decreased Appetite, Nausea, Vomiting. Denies: Black Stool, Bloody Stool, Constipation, Difficulty Swallowing, Hematemesis, Hematochezia, Melena : Reports: No Symptoms Musculoskeletal: Reports: No Symptoms Skin: Reports: No Symptoms Neurological: Reports: No Symptoms ED EXAM, GI/ABD - Physical Exam Exam: See Below Exam Limited By: No Limitations General Appearance: Alert, WD/WN, No Apparent Distress Ears: Hearing Grossly Normal Nose: Normal Inspection Throat/Mouth: Normal Voice, No Airway Compromise Neck: Normal Inspection, Supple Respiratory/Chest: No Respiratory Distress, Lungs Clear, Normal Breath Sounds, No Accessory Muscle Use, Chest Non-Tender Cardiovascular: Normal Peripheral Pulses, Regular Rate, Rhythm, No Murmur GI/Abdominal Exam: Normal Bowel Sounds, Soft, No Organomegaly, No Distention, Tender (Epigastric region) Back Exam: Normal Inspection. No: CVA Tenderness (L), CVA Tenderness (R) Extremities: Normal Inspection, Non-Tender, No Pedal Edema Neurological: Alert, Oriented, CN II-XII Intact, Normal Cognition, No Motor/ Sensory Deficits Psychiatric: Normal Affect, Normal Mood Skin Exam: Warm, Dry, Intact, Normal Color, No Rash Course - Vital Signs Last Recorded V/S: Last Vital Signs Temp 96.5 F 11/08/17 10:27 Pulse 81 11/08/17 10:27 Resp 18 11/08/17 10:27 BP 152/95 H 11/08/17 10:27 Pulse Ox 100 11/08/17 10:27 - Orders/Labs/Meds Orders: Active Orders 24 hr Category Date Time Status Abdomen 2V AP Flat Upright [CR] Stat Exams 11/08/17 11:01 Taken Labs: Laboratory Tests 11/08/17 11/08/17 11/08/17 Range/Units 11:47 11:47 11:55 WBC 7.52 (3.98-10.04) K/mm3 RBC 3.94 L (3.98-5.22) M/mm3 Hgb 11.7 (11.2-15.7) gm/L Hct 36.4 (34.1-44.9) % MCV 92.4 (79.4-94.8) fl MCH 29.7 (25.6-32.2) pg MCHC 32.1 L (32.2-35.5) g/dl RDW Std Deviation 48.3 H (36.4-46.3) fL Plt Count 240 (182-369) K/mm3 MPV 10.2 (9.4-12.3) fl Neut % (Auto) 57.8 (34.0-71.1) % Lymph % (Auto) 31.4 (19.3-51.7) % [place] % (Auto) 9.3 (4.7-12.5) % Eos % (Auto) 1.1 (0.7-5.8) Baso % (Auto) 0.4 (0.1-1.2) % Neut # (Auto) 4.35 (1.56-6.13) K/mm3 Lymph # (Auto) 2.36 (1.18-3.74) K/mm3 [place] # (Auto) 0.70 H (0.24-0.36) K/mm3 Eos # (Auto) 0.08 (0.04-0.36) K/mm3 Baso # (Auto) 0.03 (0.01-0.08) K/mm3 Sodium 142 (136-145) mEq/L Potassium 3.9 (3.5-5.1) mEq/L Chloride 105 (98-107) mEq/L Carbon Dioxide 24 (21-32) mEq/L Anion Gap 16.9 H (5-15) BUN 9 (7-18) mg/dL Creatinine 0.7 (0.55-1.02) mg/dL Est Cr Clr Drug Dosing 112.06 mL/min Estimated GFR (MDRD) > 60 (>60) mL/min BUN/Creatinine Ratio 12.9 L (14-18) Glucose 89 (74-106) mg/dL Calcium 9.4 (8.5-10.1) mg/dL Total Bilirubin 0.3 (0.2-1.0) mg/dL AST 24 (15-37) U/L ALT 22 (14-59) U/L Alkaline Phosphatase 55 (46-116) U/L C-Reactive Protein < 0.2 (<1.0) mg/dL Total Protein 8.1 (6.4-8.2) g/dl Albumin 3.8 (3.4-5.0) g/dl Globulin 4.3 gm/dL Albumin/Globulin Ratio 0.9 L (1-2) Lipase 400 H (73-393) U/L Urine Color (Yellow) Urine Appearance (Clear) Urine pH (5.0-8.0) Ur Specific [place] (1.005-1.030) Urine Protein (Negative) Urine Glucose (UA) (Negative) Urine Ketones (Negative) Urine Occult Blood (Negative) Urine Nitrite (Negative) Urine Bilirubin (Negative) Urine Urobilinogen (0.2-1.0) Ur Leukocyte Esterase (Negative) Urine RBC (0-5) /hpf Urine WBC (0-5) /hpf Ur Epithelial Cells (0-5) /hpf Urine Bacteria (FEW) /hpf Urine Mucus (FEW) /hpf Urine Opiates Screen Presumptive positive H (NEGATIVE) Ur Buprenorphine Scrn Negative (NEGATIVE) Ur Oxycodone Screen Negative (NEGATIVE) Urine Methadone Screen Negative (NEGATIVE) Ur Propoxyphene Screen Negative (NEGATIVE) Ur Barbiturates Screen Negative (NEGATIVE) Ur Tricyclics Screen Negative (NEGATIVE) Ur Phencyclidine Scrn Negative (NEGATIVE) Ur Amphetamine Screen Negative (NEGATIVE) U Methamphetamines Scrn Negative (NEGATIVE) U Benzodiazepines Scrn Presumptive positive H (NEGATIVE) U Cocaine Metab Screen Negative (NEGATIVE) U Marijuana (THC) Screen Negative (NEGATIVE) 11/08/17 Range/Units 11:55 WBC (3.98-10.04) K/mm3 RBC (3.98-5.22) M/mm3 Hgb (11.2-15.7) gm/L Hct (34.1-44.9) % MCV (79.4-94.8) fl MCH (25.6-32.2) pg MCHC (32.2-35.5) g/dl RDW Std Deviation (36.4-46.3) fL Plt Count (182-369) K/mm3 MPV (9.4-12.3) fl Neut % (Auto) (34.0-71.1) % Lymph % (Auto) (19.3-51.7) % [place] % (Auto) (4.7-12.5) % Eos % (Auto) (0.7-5.8) Baso % (Auto) (0.1-1.2) % Neut # (Auto) (1.56-6.13) K/mm3 Lymph # (Auto) (1.18-3.74) K/mm3 [place] # (Auto) (0.24-0.36) K/mm3 Eos # (Auto) (0.04-0.36) K/mm3 Baso # (Auto) (0.01-0.08) K/mm3 Sodium (136-145) mEq/L Potassium (3.5-5.1) mEq/L Chloride (98-107) mEq/L Carbon Dioxide (21-32) mEq/L Anion Gap (5-15) BUN (7-18) mg/dL Creatinine (0.55-1.02) mg/dL Est Cr Clr Drug Dosing mL/min Estimated GFR (MDRD) (>60) mL/min BUN/Creatinine Ratio (14-18) Glucose (74-106) mg/dL Calcium (8.5-10.1) mg/dL Total Bilirubin (0.2-1.0) mg/dL AST (15-37) U/L ALT (14-59) U/L Alkaline Phosphatase (46-116) U/L C-Reactive Protein (<1.0) mg/dL Total Protein (6.4-8.2) g/dl Albumin (3.4-5.0) g/dl Globulin gm/dL Albumin/Globulin Ratio (1-2) Lipase (73-393) U/L Urine Color Yellow (Yellow) Urine Appearance Slt cloudy H (Clear) Urine pH 6.0 (5.0-8.0) Ur Specific [place] > or = 1.030 (1.005-1.030) Urine Protein Negative (Negative) Urine Glucose (UA) Negative (Negative) Urine Ketones 1+ H (Negative) Urine Occult Blood Negative (Negative) Urine Nitrite Negative (Negative) Urine Bilirubin Negative (Negative) Urine Urobilinogen 0.2 (0.2-1.0) Ur Leukocyte Esterase Negative (Negative) Urine RBC Not seen (0-5) /hpf Urine WBC 5-10 H (0-5) /hpf Ur Epithelial Cells 5-10 H (0-5) /hpf Urine Bacteria Moderate H (FEW) /hpf Urine Mucus Not seen (FEW) /hpf Urine Opiates Screen (NEGATIVE) Ur Buprenorphine Scrn (NEGATIVE) Ur Oxycodone Screen (NEGATIVE) Urine Methadone Screen (NEGATIVE) Ur Propoxyphene Screen (NEGATIVE) Ur Barbiturates Screen (NEGATIVE) Ur Tricyclics Screen (NEGATIVE) Ur Phencyclidine Scrn (NEGATIVE) Ur Amphetamine Screen (NEGATIVE) U Methamphetamines Scrn (NEGATIVE) U Benzodiazepines Scrn (NEGATIVE) U Cocaine Metab Screen (NEGATIVE) U Marijuana (THC) Screen (NEGATIVE) Meds: Medications Discontinued Medications Generic Name Dose Route Start Last Admin Trade Name Freq PRN Reason Stop Dose Admin Al Hydroxide/Mg Hydroxide 30 0 ml 11/08/17 11:30 11/08/17 11:55 ml/ Lidocaine HCl 15 ml PO 11/08/17 11:31 45 ml ONETIME ONE Administration Diphenhydramine HCl 50 mg 11/08/17 11:30 11/08/17 11:56 Benadryl IM 11/08/17 11:31 50 mg ONETIME ONE Administration Ketorolac Tromethamine 30 mg 11/08/17 11:30 11/08/17 11:55 Toradol IM 11/08/17 11:31 30 mg ONETIME ONE Administration Ondansetron HCl 4 mg 11/08/17 11:31 11/08/17 11:55 Zofran Odt PO 11/08/17 11:32 4 mg ONETIME ONE Administration Oxycodone HCl 10 mg 11/08/17 12:57 11/08/17 13:03 Oxycontin PO 11/08/17 12:58 10 mg ONETIME ONE Administration - Re-Assessments/Exams Free Text/Narrative Re-Assessment/Exam: Lab attempted two collect blood x 2 with no success. I attempted 1 with no success. Another chemical lab supervisor will be summoned to draw blood. Reviewed previous ED visit from last week dated October 31, 2017. Patient was seen for similar complaints. She was treated with Toradol and oral Percocet and discharged home. Patient has chronic pancreatitis with multiple ED visits with normal labs and no inflammation noted on CT. Plan today for treatment in the ED will be Toradol 30 milligrams IM, GI cocktail with history of acid reflux and recent nausea/vomiting, and Zofran 4 mg ODT for nausea. Initial labs and studies will include CBC, chem 14, urine drug tox, lipase, UA, CRP, and 2 view flat and upright of the abdomen. 11/08/17 12:27 Obtained report from [facility] for narcotics prescribed. Per report including search of [place], [place], [place], and [place]. Last narcotic prescribed was 06/20/2017. Nursing staff states patient admitted to taking oxycodone 5-325mg PO this a.m. and has not take oxycodone 10/325mg for some time. The 5-325mg of oxycodone was not provided to nursing staff with [facility]. 1205 x-ray of the abdomen did not reveal any concerning findings. Nonspecific air in stool patterns. Final interpretation is pending. labs reviewed: WBC WNL, Glucose 89, CRP <0.2, Lipase 400. UA Negative for infection. Urine drug tox positive for opiates and benzodiazepines. 11/08/17 13:01 Reassessment, acid reflux has resolved. Pain to the epigastric region persists. Ordered oxycontin ER10mg. 1342 Per nursing patient request something more for pain. No additional pain medications will be administered while in the ED. I informed her with reviewing previous ED visit will stick with Toradol and oral narcotics. Patient has narcotics at home to which she can take. No intramuscular or IV pain medications will be prescribed. She does not appear to be in acute distress. Vital signs are stable. No additional testing is required at this point. Will discharge patient home with instructions as documented. Departure - Departure Time of Disposition: 13:01 Disposition: Home, Self-Care 01 Condition: Good Clinical Impression: Chronic abdominal pain, Nausea and vomiting in adult Abdominal pain Qualifiers: Abdominal location: epigastric Qualified Code(s): R10.13 - Epigastric pain Acid reflux Qualifiers: Esophagitis presence: esophagitis presence not specified Qualified Code(s): K21.9 - Gastro-esophageal reflux disease without esophagitis - Discharge Information Instructions: Nausea and Vomiting, Adult, [id number], Abdominal Pain, Adult, [id number], Pain Medicine Instructions, [id number] Referrals: Rik Walls PA-C [Primary Care Provider] - Forms: ED Department Discharge Additional Instructions: Do not drive this evening since receiving a sedative medication while in the ED. Continue to take all your home medications as prescribed. Suggest sticking with a liquid diet for the next 24 hours advancing to a bland diet thereafter. Follow-up with your primary care provider as needed for further pain control. - My Orders Last 24 Hours: My Active Orders 11/08/17 11:01 Abdomen 2V AP Flat Upright [CR] Stat - Assessment/Plan Last 24 Hours: My Active Orders 11/08/17 11:01 Abdomen 2V AP Flat Upright [CR] Stat
[2017-11-08] MEDS ORDERED: oxyCODONE ER 10 MG TAB.ER PO ONE (12:57)
--- NOTE | 2017-11-10 07:59 | CR ---
Abdomen: Supine and upright views of the abdomen were obtained. Comparison: Prior abdominal x-ray of 06/15/17. Epidural catheter is seen entering from the left side. Ventriculoperitoneal shunt is also noted. Previous gastric surgery is seen. Previous cholecystectomy is noted. No free air is seen. No abnormal calcifications or soft tissue abnormality is seen. Bowel gas pattern appears within normal limits. Impression: 1. Incidental findings. Nothing acute is appreciated. Diagnostic code #2
== END 2017-11-08 14:02 | disposition home or self-care (01) ==
LOC: JD.ED 10:21
DX: K21.9 Gastro-esophageal reflux disease without esophagitis (principal); Z88.8 Allergy status to other drugs, medicaments and biological substances; E03.9 Hypothyroidism, unspecified; Z79.899 Other long term (current) drug therapy; Z90.49 Acquired absence of other specified parts of digestive tract
CPT/HCPCS: 36415; 74020; 80053; 80306; 81001; 83690; 85025; 86140; 96372; 99284; A9270; J1200; J1885; 99283

== ENCOUNTER 2017-11-21 08:31 | Emergency (ER) | payer BC, MEDICARE ==
--- NOTE | 2017-11-21 09:54 | EDM.PDOC ---
ED HPI GENERAL MEDICAL PROBLEM - General Chief Complaint: Abdominal Pain Stated Complaint: ABDOMINAL PAIN Time Seen by Provider: 11/21/17 09:51 - History of Present Illness INITIAL COMMENTS - FREE TEXT/NARRATIVE: 42-year-old female presents emergency room with abdominal pain. Patient is frequently here with similar complaints she carries a diagnosis of chronic abdominal pain and chronic pancreatitis she has seen by a specialist in the [facility] they're contemplating doing a Whipple procedure on her. Patient seen multiple times this emergency room similar complaints usually with normal labs she's had multiple CAT scans that have been unrevealing. Patient has Percocet at home and Zofran at home however has not been using the she's been really trying to minimize the opioids thinking perhaps this is making the pancreatitis worse. Left Upper Abdominal Pain Score (Numeric/FACES): 8 - Related Data Allergies Allergy/AdvReac Type Severity Reaction Status Date / Time metoclopramide HCl Allergy Itching Verified 11/21/17 08:52 [From Reglan] buprenorphine [From Butrans] AdvReac Other Verified 11/21/17 08:52 prochlorperazine AdvReac Vomiting Verified 11/21/17 08:52 [From Compazine] Home Meds: Home Meds Levothyroxine Sodium [Synthroid] 300 mcg PO DAILY 01/13/17 [History] Gabapentin [Neurontin] 1,200 mg PO TID PRN 04/25/17 [History] Ondansetron [Zofran ODT] 4 mg PO Q4H PRN #30 tab.dis 05/14/17 [Rx] Acetaminophen [Mapap] 3 tab PO TID PRN 07/17/17 [History] Ascorbic Acid [Vitamin C with Kiersten Hips] 2 tab PO TID 07/17/17 [History] Garlic [Odorless Garlic] 2 tab PO TID 07/17/17 [History] Grape Seed Extract [Grape Seed] 50 mg PO TID 07/17/17 [History] Ibuprofen 3 tab PO TID PRN 07/17/17 [History] Lansoprazole [Prevacid 24Hr] 15 mg PO DAILY 07/17/17 [History] Milk Thistle 2 tab PO TID 07/17/17 [History] oxyCODONE HCl/Acetaminophen [Percocet 10-325 mg Tablet] 1 each PO DAILY [History] Lipase/Protease/Amylase [Pancrekarlos Dr 4,200 Unit Cap] 1 tab PO DAILY 10/27/17 [ History] Temazepam [Temazepam] 15 mg PO BEDTIME PRN 11/08/17 [History] Past Medical History - Past Health History Medical/Surgical History: Denies Medical/Surgical History HEENT History: Reports: Glaucoma Other Respiratory History: cough RLQ Gastrointestinal History: Reports: Pancreatitis, Other (See Below) Other Gastrointestinal History: chronic pancreatitis, fatty pancreas [employer] History: 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 OB/BYN History: c section x3, tubes tied Musculoskeletal History: Reports: Arthritis Neurological History: Reports: TIA, Other (See Below) Other Neuro History: pseudotumor, shunt Psychiatric History: Reports: Addiction, Anxiety, Emotional Problems Endocrine/Metabolic History: Reports: Hypothyroidism Hematologic History: Reports: Anemia - Infectious Disease History Infectious Disease History: Reports: C-Difficile, MRSA Other Infectious Disease History: in 2006 - Past Surgical History Head Surgeries/Procedures: Reports: Craniotomy, Shunt HEENT Surgical History: Reports: Oral Surgery GI Surgical History: Reports: Appendectomy, Bariatric Procedure, Cholecystectomy , ERCP Female Surgical History: Reports: Section, Tubal Ligation Social & Family History - Family History Family Medical History: Noncontributory Cardiac: Reports: Bypass, Hypertension, [place] Respiratory: Reports: Asthma Oncologic: Reports: Colon - Tobacco Use Smoking Status *Q: Never Smoker Packs/Tins Daily: 1 Used Tobacco, but Quit: Yes Month Tobacco Last Used: 23 years Second Hand Smoke Exposure: No - Caffeine Use Caffeine Use: Reports: None Other Caffeine Use: occasional. - Alcohol Use Days Per Week of Alcohol Use: 0 - Recreational Drug Use Recreational Drug Use: No Drug Use in Last 12 Months: Yes Recreational Drug Type: Reports: Dilaudid, Oxycodone - Living Situation & Occupation Living situation: Reports: , with Spouse Occupation: Unemployed ED ROS GENERAL - Review of Systems Review Of Systems: See Below Constitutional: Reports: No Symptoms HEENT: Reports: No Symptoms Respiratory: Reports: No Symptoms Cardiovascular: Reports: No Symptoms Endocrine: Reports: No Symptoms GI/Abdominal: Reports: Abdominal Pain, Nausea. Denies: Constipation, Diarrhea : Reports: No Symptoms Neurological: Reports: No Symptoms ED EXAM, GI/ABD - Physical Exam Exam: See Below Exam Limited By: No Limitations General Appearance: Alert, No Apparent Distress Respiratory/Chest: No Respiratory Distress, Lungs Clear, Normal Breath Sounds Cardiovascular: Regular Rate, Rhythm, No Edema, No Murmur GI/Abdominal Exam: Normal Bowel Sounds, Soft, Other (None noticeable organomegaly however she is somewhat obese she has some epigastric and left upper abdominal discomfort with palpation no rigidity rebound or guarding noted) Back Exam: Normal Inspection. No: CVA Tenderness (L), CVA Tenderness (R) Extremities: Non-Tender, No Pedal Edema Neurological: Alert, Oriented, Normal Cognition Course - Vital Signs Last Recorded V/S: Last Vital Signs Temp 36.1 C 11/21/17 08:53 Pulse 67 11/21/17 08:53 Resp BP 126/88 11/21/17 08:53 Pulse Ox 99 11/21/17 08:53 - Orders/Labs/Meds Labs: Laboratory Tests 11/21/17 11/21/17 Range/Units 12:45 12:45 WBC 7.64 (3.98-10.04) K/mm3 RBC 3.78 L (3.98-5.22) M/mm3 Hgb 11.3 (11.2-15.7) gm/L Hct 35.3 (34.1-44.9) % MCV 93.4 (79.4-94.8) fl MCH 29.9 (25.6-32.2) pg MCHC 32.0 L (32.2-35.5) g/dl RDW Std Deviation 48.1 H (36.4-46.3) fL Plt Count 193 (182-369) K/mm3 MPV 10.2 (9.4-12.3) fl Neutrophils % (Manual) 58 (40-60) % Band Neutrophils % 0 (0-10) % Lymphocytes % (Manual) 33 (20-40) % Atypical Lymphs % 0 % Monocytes % (Manual) 4 (2-10) % Eosinophils % (Manual) 5 (0.7-5.8) % Basophils % (Manual) 0 L (0.1-1.2) Platelet Estimate Adequate Hypochromasia 1+ slight Microcytosis 1+ slight RBC Morph Comment Abnormal Sodium 144 (136-145) mEq/L Potassium 3.9 (3.5-5.1) mEq/L Chloride 106 (98-107) mEq/L Carbon Dioxide 27 (21-32) mEq/L Anion Gap 14.9 (5-15) BUN 8 (7-18) mg/dL Creatinine 0.9 (0.55-1.02) mg/dL Est Cr Clr Drug Dosing 87.16 mL/min Estimated GFR (MDRD) > 60 (>60) mL/min BUN/Creatinine Ratio 8.9 L (14-18) Glucose 90 (74-106) mg/dL Calcium 8.9 (8.5-10.1) mg/dL Total Bilirubin 0.2 (0.2-1.0) mg/dL AST 18 (15-37) U/L ALT 18 (14-59) U/L Alkaline Phosphatase 57 (46-116) U/L Total Protein 7.8 (6.4-8.2) g/dl Albumin 3.7 (3.4-5.0) g/dl Globulin 4.1 gm/dL Albumin/Globulin Ratio 0.9 L (1-2) Lipase 405 H (73-393) U/L Meds: Medications Discontinued Medications Generic Name Dose Route Start Last Admin Trade Name Freq PRN Reason Stop Dose Admin Al Hydroxide/Mg Hydroxide 30 0 ml 11/21/17 12:04 11/21/17 12:16 ml/ Lidocaine HCl 15 ml PO 11/21/17 12:05 45 ml ONETIME ONE Administration Ketorolac Tromethamine 30 mg 11/21/17 10:40 11/21/17 10:54 Toradol IM 11/21/17 10:41 30 mg ONETIME ONE Administration Ondansetron HCl 4 mg 11/21/17 13:52 Zofran Odt PO 11/21/17 13:53 ONETIME ONE Oxycodone/Acetaminophen 1 tab 11/21/17 10:40 11/21/17 10:55 Percocet 325-5 Mg PO 11/21/17 10:41 1 tab ONETIME ONE Administration Oxycodone/Acetaminophen 1 tab 11/21/17 13:52 Percocet 325-5 Mg PO 11/21/17 13:53 ONETIME ONE - Re-Assessments/Exams Free Text/Narrative Re-Assessment/Exam: 11/21/17 13:48 Early on in the patient's care the patient did not think she needed lab work she was quite comfortable a shot of Toradol and Percocet which has worked lately for abdominal pain. Her vital signs been stable. However she did not get some relief this was followed up with a GI cocktail this did not seem to help went ahead and check some blood work this does not appear to be our aligned her lipase is slightly elevated not the range of pancreatitis elevation at 405. She' s having some intermittent nausea and vomiting. She may well have exposure to gastroenteritis that is going to the community. She does have Zofran at home at this point a mini give her an additional Percocet and some Zofran for the ride home. Departure - Departure Time of Disposition: 13:50 Disposition: Home, Self-Care 01 Clinical Impression: Abdominal pain Qualifiers: Abdominal location: epigastric Qualified Code(s): R10.13 - Epigastric pain Chronic pancreatitis Qualifiers: Pancreatitis type: other Qualified Code(s): K86.1 - Other chronic pancreatitis - Discharge Information Referrals: Rik Walls PA-C [Primary Care Provider] - Forms: ED Department Discharge Additional Instructions: Return to the emergency room with any questions problems worsening symptoms. Use your Zofran and Percocet at home as needed. Follow-up with her regular providers as scheduled sooner if needed. Decrease diet to a clear liquid diet for at least 24 hours after symptoms improve.
[2017-11-21] MEDS ORDERED: Acetaminophen/oxyCODONE 325-5 MG Tab PO ONE ×2 (10:40→13:52)
[2017-11-21] MEDS ORDERED: Ketorolac 30 MG/ML SDV IM ONE (10:40)
[2017-11-21] MEDS ORDERED: Alum Hydrox/Mag Hydrox/Simeth 30 ML, Lidocaine 2% 15 ML PO ONE ×2 (12:04)
[2017-11-21] MEDS ORDERED: Ondansetron 4 MG Tab.DIS PO ONE (13:52)
[2017-11-21 14:03] VITALS: BP 145/95
== END 2017-11-21 14:05 | disposition home or self-care (01) ==
LOC: JD.ED 08:31
DX: K86.1 Other chronic pancreatitis (principal); Z88.8 Allergy status to other drugs, medicaments and biological substances; Z79.899 Other long term (current) drug therapy
CPT/HCPCS: 36415; 80053; 83690; 85025; 96372; 99284; A9270; J1885

== ENCOUNTER 2017-12-01 15:24 | Emergency (ER) | payer BC, MEDICARE ==
[2017-12-01 15:37] VITALS: BP 151/90
[2017-12-01] MEDS ORDERED: oxyCODONE ER 10 MG TAB.ER PO ONE (15:56)
[2017-12-01] MEDS ORDERED: Ondansetron 4 MG Tab.DIS PO ONE (15:56)
--- NOTE | 2017-12-01 16:01 | EDM.PDOC ---
ED HPI GENERAL MEDICAL PROBLEM - General Chief Complaint: Back Pain or Injury Stated Complaint: CHRONIC L SIDE ABDOMINAL PAIN Time Seen by Provider: 12/01/17 15:50 Source of Information: Reports: Patient History Limitations: Reports: No Limitations - History of Present Illness INITIAL COMMENTS - FREE TEXT/NARRATIVE: Patient is a 42-year-old female presents ED complaining of epigastric and left upper quadrant abdominal pain. She also has nausea vomiting associated with pain. Pain does radiate into her back. Consistent with previous episodes of flareup of chronic pancreatitis. States pain came on yesterday and has progressively got worse. She has been eating and drinking although appetite is poor.'s had chronic diarrhea which is normal for her. No blood present within the emesis or diarrhea. States she had a fever yesterday nothing noted today. No generalized body aches, sore throat, upper [place] symptoms, shows breath, chest pain, cough, dysuria, or any additional complaints. She has not taken any narcotics at this time for pain therapy. She has been in touch with her GI specialist at the [facility]. Initially she had an appointment scheduled for 30 November but due to the 3 day weekend this was canceled. Next appointment is scheduled for 14 December. Left Upper Back Pain Score (Numeric/FACES): 9 - Related Data Allergies Allergy/AdvReac Type Severity Reaction Status Date / Time metoclopramide HCl Allergy Itching Verified 11/21/17 08:52 [From Reglan] buprenorphine [From Butrans] AdvReac Other Verified 11/21/17 08:52 prochlorperazine AdvReac Vomiting Verified 11/21/17 08:52 [From Compazine] Home Meds: Home Meds Levothyroxine Sodium [Synthroid] 300 mcg PO DAILY 01/13/17 [History] Gabapentin [Neurontin] 1,200 mg PO TID PRN 04/25/17 [History] Ondansetron [Zofran ODT] 4 mg PO Q4H PRN #30 tab.dis 05/14/17 [Rx] Acetaminophen [Mapap] 3 tab PO TID PRN 07/17/17 [History] Ascorbic Acid [Vitamin C with Kiersten Hips] 2 tab PO TID 07/17/17 [History] Garlic [Odorless Garlic] 2 tab PO TID 07/17/17 [History] Grape Seed Extract [Grape Seed] 50 mg PO TID 07/17/17 [History] Ibuprofen 3 tab PO TID PRN 07/17/17 [History] Lansoprazole [Prevacid 24Hr] 15 mg PO DAILY 07/17/17 [History] Milk Thistle 2 tab PO TID 07/17/17 [History] oxyCODONE HCl/Acetaminophen [Percocet 10-325 mg Tablet] 1 each PO DAILY [History] Lipase/Protease/Amylase [Marleni Melgar 4,200 Unit Cap] 1 tab PO DAILY 10/27/17 [ History] Temazepam [Temazepam] 15 mg PO BEDTIME PRN 11/08/17 [History] Past Medical History - Past Health History Medical/Surgical History: Denies Medical/Surgical History HEENT History: Reports: Glaucoma Other Respiratory History: cough RLQ Gastrointestinal History: Reports: Pancreatitis, Other (See Below) Other Gastrointestinal History: chronic pancreatitis, fatty pancreas 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: 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 OB/BYN History: c section x3, tubes tied Musculoskeletal History: Reports: Arthritis Neurological History: Reports: TIA, Other (See Below) Other Neuro History: pseudotumor, shunt Psychiatric History: Reports: Addiction, Anxiety, Emotional Problems Endocrine/Metabolic History: Reports: Hypothyroidism Hematologic History: Reports: Anemia - Infectious Disease History Infectious Disease History: Reports: C-Difficile, MRSA Other Infectious Disease History: in 2006 - Past Surgical History Head Surgeries/Procedures: Reports: Craniotomy, Shunt HEENT Surgical History: Reports: Oral Surgery GI Surgical History: Reports: Appendectomy, Bariatric Procedure, Cholecystectomy , ERCP Female Surgical History: Reports: Section, Tubal Ligation Social & Family History - Family History Family Medical History: Noncontributory Cardiac: Reports: Bypass, Hypertension, [place] Respiratory: Reports: Asthma Oncologic: Reports: Colon - Tobacco Use Smoking Status *Q: Never Smoker Packs/Tins Daily: 1 Used Tobacco, but Quit: Yes Month Tobacco Last Used: 23 years Second Hand Smoke Exposure: No - Caffeine Use Caffeine Use: Reports: Coffee Other Caffeine Use: occasional. - Alcohol Use Days Per Week of Alcohol Use: 0 - Recreational Drug Use Recreational Drug Use: No Drug Use in Last 12 Months: Yes Recreational Drug Type: Reports: Dilaudid, Oxycodone - Living Situation & Occupation Living situation: Reports: , with Spouse Occupation: Unemployed ED ROS GENERAL - Review of Systems Review Of Systems: See Below Constitutional: Reports: Decreased Appetite. Denies: Fever, Chills, Malaise HEENT: Reports: No Symptoms Respiratory: Reports: No Symptoms Cardiovascular: Reports: No Symptoms GI/Abdominal: Reports: Abdominal Pain, Diarrhea, Decreased Appetite, Nausea, Vomiting. Denies: Bloody Stool, Constipation, Distension, Flatus, Hematemesis : Reports: No Symptoms Musculoskeletal: Reports: Back Pain Skin: Reports: No Symptoms Neurological: Reports: No Symptoms ED EXAM, GI/ABD - Physical Exam Exam: See Below Exam Limited By: No Limitations General Appearance: Alert, WD/WN, Mild Distress Ears: Hearing Grossly Normal Nose: Normal Inspection Throat/Mouth: Normal Inspection, Normal Oropharynx, Normal Voice, No Airway Compromise Head: Atraumatic, Normocephalic Neck: Normal Inspection, Supple Respiratory/Chest: No Respiratory Distress, Lungs Clear, Chest Non-Tender Cardiovascular: Normal Peripheral Pulses, Regular Rate, Rhythm, No Murmur GI/Abdominal Exam: Normal Bowel Sounds, Soft, No Organomegaly, No Distention, Tender (Epigastric and also left upper quadrant.) Back Exam: Normal Inspection. No: CVA Tenderness (L), CVA Tenderness (R), Paraspinal Tenderness, Vertebral Tenderness Extremities: Normal Inspection, Normal Range of Motion, Non-Tender, No Pedal Edema, Normal Capillary Refill Neurological: Alert, Oriented, No Motor/Sensory Deficits Psychiatric: Normal Affect, Normal Mood Skin Exam: Warm, Dry, Intact, Normal Color Course - Vital Signs Last Recorded V/S: Last Vital Signs Temp 97.1 F 12/01/17 15:35 Pulse 80 12/01/17 15:35 Resp 18 12/01/17 15:35 BP 151/90 H 12/01/17 15:35 Pulse Ox 100 12/01/17 15:35 - Orders/Labs/Meds Orders: Active Orders 24 hr Category Date Time Status EKG Documentation Completion [RC] STAT Care 12/01/17 15:49 Active CXR [Chest 1V Frontal] [CR] Stat Exams 12/01/17 15:49 Taken KUB [Abdomen 1V Flat] [CR] Stat Exams 12/01/17 15:55 Taken Labs: Laboratory Tests 12/01/17 12/01/17 12/01/17 Range/Units 15:49 15:49 16:00 WBC 8.21 (3.98-10.04) K/mm3 RBC 3.93 L (3.98-5.22) M/mm3 Hgb 11.8 (11.2-15.7) gm/L Hct 36.4 (34.1-44.9) % MCV 92.6 (79.4-94.8) fl MCH 30.0 (25.6-32.2) pg MCHC 32.4 (32.2-35.5) g/dl RDW Std Deviation 46.5 H (36.4-46.3) fL Plt Count 241 (182-369) K/mm3 MPV 10.5 (9.4-12.3) fl Neut % (Auto) 56.7 (34.0-71.1) % Lymph % (Auto) 31.7 (19.3-51.7) % [place] % (Auto) 9.9 (4.7-12.5) % Eos % (Auto) 1.2 (0.7-5.8) Baso % (Auto) 0.4 (0.1-1.2) % Neut # (Auto) 4.66 (1.56-6.13) K/mm3 Lymph # (Auto) 2.60 (1.18-3.74) K/mm3 [place] # (Auto) 0.81 H (0.24-0.36) K/mm3 Eos # (Auto) 0.10 (0.04-0.36) K/mm3 Baso # (Auto) 0.03 (0.01-0.08) K/mm3 Sodium (136-145) mEq/L Potassium (3.5-5.1) mEq/L Chloride (98-107) mEq/L Carbon Dioxide (21-32) mEq/L Anion Gap (5-15) BUN (7-18) mg/dL Creatinine (0.55-1.02) mg/dL Est Cr Clr Drug Dosing mL/min Estimated GFR (MDRD) (>60) mL/min BUN/Creatinine Ratio (14-18) Glucose (74-106) mg/dL Calcium (8.5-10.1) mg/dL Total Bilirubin (0.2-1.0) mg/dL AST (15-37) U/L ALT (14-59) U/L Alkaline Phosphatase (46-116) U/L C-Reactive Protein (<1.0) mg/dL Total Protein (6.4-8.2) g/dl Albumin (3.4-5.0) g/dl Globulin gm/dL Albumin/Globulin Ratio (1-2) Lipase (73-393) U/L Urine Color Yellow (Yellow) Urine Appearance Clear (Clear) Urine pH 8.5 H (5.0-8.0) Ur Specific [place] 1.025 (1.005-1.030) Urine Protein Trace H (Negative) Urine Glucose (UA) Negative (Negative) Urine Ketones Trace H (Negative) Urine Occult Blood Negative (Negative) Urine Nitrite Negative (Negative) Urine Bilirubin Negative (Negative) Urine Urobilinogen 1.0 (0.2-1.0) Ur Leukocyte Esterase Negative (Negative) Urine RBC Not seen (0-5) /hpf Urine WBC 0-5 (0-5) /hpf Ur Epithelial Cells 0-5 (0-5) /hpf Urine Bacteria Few (FEW) /hpf Urine Mucus Not seen (FEW) /hpf Urine Opiates Screen Negative (NEGATIVE) Ur Buprenorphine Scrn Negative (NEGATIVE) Ur Oxycodone Screen Negative (NEGATIVE) Urine Methadone Screen Negative (NEGATIVE) Ur Propoxyphene Screen Negative (NEGATIVE) Ur Barbiturates Screen Negative (NEGATIVE) Ur Tricyclics Screen Negative (NEGATIVE) Ur Phencyclidine Scrn Negative (NEGATIVE) Ur Amphetamine Screen Negative (NEGATIVE) U Methamphetamines Scrn Negative (NEGATIVE) U Benzodiazepines Scrn Presumptive positive H (NEGATIVE) U Cocaine Metab Screen Negative (NEGATIVE) U Marijuana (THC) Screen Negative (NEGATIVE) 12/01/17 Range/Units 16:00 WBC (3.98-10.04) K/mm3 RBC (3.98-5.22) M/mm3 Hgb (11.2-15.7) gm/L Hct (34.1-44.9) % MCV (79.4-94.8) fl MCH (25.6-32.2) pg MCHC (32.2-35.5) g/dl RDW Std Deviation (36.4-46.3) fL Plt Count (182-369) K/mm3 MPV (9.4-12.3) fl Neut % (Auto) (34.0-71.1) % Lymph % (Auto) (19.3-51.7) % [place] % (Auto) (4.7-12.5) % Eos % (Auto) (0.7-5.8) Baso % (Auto) (0.1-1.2) % Neut # (Auto) (1.56-6.13) K/mm3 Lymph # (Auto) (1.18-3.74) K/mm3 [place] # (Auto) (0.24-0.36) K/mm3 Eos # (Auto) (0.04-0.36) K/mm3 Baso # (Auto) (0.01-0.08) K/mm3 Sodium 144 (136-145) mEq/L Potassium 3.8 (3.5-5.1) mEq/L Chloride 107 (98-107) mEq/L Carbon Dioxide 25 (21-32) mEq/L Anion Gap 15.8 H (5-15) BUN 10 (7-18) mg/dL Creatinine 0.8 (0.55-1.02) mg/dL Est Cr Clr Drug Dosing 98.05 mL/min Estimated GFR (MDRD) > 60 (>60) mL/min BUN/Creatinine Ratio 12.5 L (14-18) Glucose 102 (74-106) mg/dL Calcium 9.1 (8.5-10.1) mg/dL Total Bilirubin 0.2 (0.2-1.0) mg/dL AST 19 (15-37) U/L ALT 19 (14-59) U/L Alkaline Phosphatase 63 (46-116) U/L C-Reactive Protein < 0.2 (<1.0) mg/dL Total Protein 8.2 (6.4-8.2) g/dl Albumin 3.8 (3.4-5.0) g/dl Globulin 4.4 gm/dL Albumin/Globulin Ratio 0.9 L (1-2) Lipase 390 (73-393) U/L Urine Color (Yellow) Urine Appearance (Clear) Urine pH (5.0-8.0) Ur Specific [place] (1.005-1.030) Urine Protein (Negative) Urine Glucose (UA) (Negative) Urine Ketones (Negative) Urine Occult Blood (Negative) Urine Nitrite (Negative) Urine Bilirubin (Negative) Urine Urobilinogen (0.2-1.0) Ur Leukocyte Esterase (Negative) Urine RBC (0-5) /hpf Urine WBC (0-5) /hpf Ur Epithelial Cells (0-5) /hpf Urine Bacteria (FEW) /hpf Urine Mucus (FEW) /hpf Urine Opiates Screen (NEGATIVE) Ur Buprenorphine Scrn (NEGATIVE) Ur Oxycodone Screen (NEGATIVE) Urine Methadone Screen (NEGATIVE) Ur Propoxyphene Screen (NEGATIVE) Ur Barbiturates Screen (NEGATIVE) Ur Tricyclics Screen (NEGATIVE) Ur Phencyclidine Scrn (NEGATIVE) Ur Amphetamine Screen (NEGATIVE) U Methamphetamines Scrn (NEGATIVE) U Benzodiazepines Scrn (NEGATIVE) U Cocaine Metab Screen (NEGATIVE) U Marijuana (THC) Screen (NEGATIVE) Meds: Medications Discontinued Medications Generic Name Dose Route Start Last Admin Trade Name Freq PRN Reason Stop Dose Admin Ondansetron HCl 4 mg 12/01/17 15:56 12/01/17 16:02 Zofran Odt PO 12/01/17 15:57 4 mg ONETIME ONE Administration Oxycodone HCl 10 mg 12/01/17 15:56 12/01/17 16:02 Oxycontin PO 12/01/17 15:57 10 mg ONETIME ONE Administration - Re-Assessments/Exams Free Text/Narrative Re-Assessment/Exam: Ordered CBC, chem 14, urine drug tox, lipase, UA, KUB, chest x-ray, CRP, and EKG. Ordered oxycodone extended release 10 mg by mouth and also Zofran 4 mg ODT. Will not start an IV at this time. Patient does not look dehydrated nor in severe acute distress. EKG revealed:NSR rate of [address] changes noted. Chest x-ray revealed: No acute findings. KUB revealed: No acute findings. Labs reviewed: CBC essentially normal, chemistry essentially normal, CRP less than 0.2, lipase 390, UA negative for any concerning findings. Urine drug tox positive for benzodiazepines. 12/01/17 17:27 per nursing staff patient eloped. Departure - Departure Time of Disposition: 17:27 Disposition: Eloped 07 Condition: Good Clinical Impression: Abdominal pain, Chronic recurrent pancreatitis, Drug-seeking behavior Chronic pain Qualifiers: Chronic pain type: other chronic pain Qualified Code(s): G89.29 - Other chronic pain - Discharge Information Referrals: Rik Walls, PHANI [Primary Care Provider] - Forms: ED Department Discharge - My Orders Last 24 Hours: My Active Orders 12/01/17 15:49 EKG Documentation Completion [RC] STAT CXR [Chest 1V Frontal] [CR] Stat 12/01/17 15:55 KUB [Abdomen 1V Flat] [CR] Stat - Assessment/Plan Last 24 Hours: My Active Orders 12/01/17 15:49 EKG Documentation Completion [RC] STAT CXR [Chest 1V Frontal] [CR] Stat 12/01/17 15:55 KUB [Abdomen 1V Flat] [CR] Stat
--- NOTE | 2017-12-02 06:48 | CR ---
Chest: Portable view of the chest was obtained. Comparison: Previous chest x-ray of 05/17/15. Heart size and mediastinum are within normal limits for portable technique. Lungs are clear. Minimal scoliosis is noted within the spine with minimal degenerative endplate spurring. Impression: 1. Nothing acute is seen on portable chest x-ray. Diagnostic code #2
--- NOTE | 2017-12-02 06:48 | CR ---
Abdomen: Supine portable view of the abdomen was obtained. Comparison: Prior abdominal x-ray of 11/08/17. Bowel gas pattern appears within normal limits. Two catheters are seen entering from the left side of the abdomen. Surgical clips are noted from prior cholecystectomy. Evidence of previous stomach surgery. Impression: 1. Nothing acute is seen on portable supine abdominal x-ray. Diagnostic code #2
== END 2017-12-01 17:24 | disposition left against medical advice (07) ==
LOC: JD.ED 15:24
DX: K86.1 Other chronic pancreatitis (principal); G89.29 Other chronic pain; Z79.899 Other long term (current) drug therapy; Z76.5 Malingerer [conscious simulation]; Z88.8 Allergy status to other drugs, medicaments and biological substances; Z87.891 Personal history of nicotine dependence
CPT/HCPCS: 36415; 71045; 74018; 80053; 80306; 81001; 83690; 85025; 86140; 93005; 99284; A9270

== ENCOUNTER 2017-12-06 09:11 | Emergency (ER) | payer BC, MEDICARE ==
[2017-12-06 09:25] VITALS: BP 156/107
[2017-12-06] MEDS ORDERED: HYDROmorphone 1 MG/ML Syringe IM ONE ×2 (09:41→11:25)
[2017-12-06] MEDS ORDERED: diphenhydrAMINE 50 MG/ML SDV IM ONE (09:42)
[2017-12-06] MEDS ORDERED: LORazepam 2 MG/ML SDV IM ONE (09:43)
[2017-12-06] MEDS ORDERED: Ketorolac 30 MG/ML SDV IVPUSH SCH (09:45)
[2017-12-06] MEDS ORDERED: Ketorolac 60 MG/2 ML SDV IM ONE (09:49)
--- NOTE | 2017-12-06 09:49 | EDM.PDOC ---
ED HPI GENERAL MEDICAL PROBLEM - General Chief Complaint: Gastrointestinal Problem Stated Complaint: LEFT SIDE PAIN Time Seen by Provider: 12/06/17 09:30 Source of Information: Reports: Patient, Family History Limitations: Reports: No Limitations (Spouse) - History of Present Illness INITIAL COMMENTS - FREE TEXT/NARRATIVE: 42-year-old female once again presents to the ED with severe left upper quadrant abdominal pain rating to her left flank and back. Associated nausea vomiting and steatorrhea diarrhea with mucus and bilious material passed per rectum. Usually 10 times per day the last 3 days. Patient has a history of recurrent chronic pancreatitis. She is scheduled for consultation with GI surgeon at [facility] the end of the month. Currently having significant ear pain. She states this is probably the worst attack she's had in the last 3 months. Feels bloated and distended but is passing stool per rectum. Has been taking only fluids the last 3 days. Is passing her water twice per day and doesn't feel she's significantly volume depleted. She's been using Tylenol only for pain relief. Onset: Sudden Onset Date: 12/03/17 Duration: Day(s): Location: Reports: Abdomen (Left upper quadrant of abdomen read to to the left back and flank area.) Quality: Reports: Ache, Pressure, Stabbing Severity: Severe Improves with: Reports: None Worsens with: Reports: Eating Context: 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 (Known to have chronic relapsing pancreatitis.). Denies : Activity, Exercise, Lifting, Sick Contact, Trauma Associated Symptoms: Reports: Nausea/Vomiting, Other (Intractable nausea and vomiting. Diarrhea stools which are mostly bilious and mucus 10-14 times per day. No blood noted.) Treatments C PROGRAMMER: Reports: Acetaminophen Abdominal Pain Score (Numeric/FACES): 9 - Related Data Allergies Allergy/AdvReac Type Severity Reaction Status Date / Time metoclopramide HCl Allergy Itching Verified 12/06/17 09:15 [From Reglan] buprenorphine [From Butrans] AdvReac Other Verified 12/06/17 09:15 prochlorperazine AdvReac Vomiting Verified 12/06/17 09:15 [From Compazine] Home Meds: Home Meds Levothyroxine Sodium [Synthroid] 300 mcg PO DAILY 01/13/17 [History] Gabapentin [Neurontin] 1,200 mg PO TID PRN 04/25/17 [History] Ondansetron [Zofran ODT] 4 mg PO Q4H PRN #30 tab.dis 05/14/17 [Rx] Acetaminophen [Mapap] 3 tab PO TID PRN 07/17/17 [History] Ascorbic Acid [Vitamin C with Kiersten Hips] 2 tab PO TID 07/17/17 [History] Garlic [Odorless Garlic] 2 tab PO TID 07/17/17 [History] Grape Seed Extract [Grape Seed] 50 mg PO TID 07/17/17 [History] Lansoprazole [Prevacid 24Hr] 15 mg PO DAILY 07/17/17 [History] Milk Thistle 2 tab PO TID 07/17/17 [History] Lipase/Protease/Amylase [Marleni Melgar 4,200 Unit Cap] 1 tab PO DAILY 10/27/17 [ History] Temazepam [Temazepam] 15 mg PO BEDTIME PRN 11/08/17 [History] oxyCODONE HCl/Acetaminophen [Percocet 5-325 mg Tablet] 1 - 2 each PO Q4H PRN # 20 tablet 12/06/17 [Rx] Past Medical History - Past Health History Medical/Surgical History: Denies Medical/Surgical History HEENT History: Reports: Glaucoma Other Respiratory History: cough RLQ Gastrointestinal History: Reports: Pancreatitis, Other (See Below) Other Gastrointestinal History: chronic pancreatitis, fatty pancreas UG DESIGNER History: 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 OB/BYN History: c section x3, tubes tied Musculoskeletal History: Reports: Arthritis Neurological History: Reports: TIA, Other (See Below) Other Neuro History: pseudotumor, shunt Psychiatric History: Reports: Addiction, Anxiety, Emotional Problems Endocrine/Metabolic History: Reports: Hypothyroidism Hematologic History: Reports: Anemia - Infectious Disease History Infectious Disease History: Reports: C-Difficile, MRSA Other Infectious Disease History: in 2006 - Past Surgical History Head Surgeries/Procedures: Reports: Craniotomy, Shunt HEENT Surgical History: Reports: Oral Surgery GI Surgical History: Reports: Appendectomy, Bariatric Procedure, Cholecystectomy , ERCP Female Surgical History: Reports: Section, Tubal Ligation Social & Family History - Family History Family Medical History: Noncontributory Cardiac: Reports: Bypass, Hypertension, HI Respiratory: Reports: Asthma Oncologic: Reports: Colon - Tobacco Use Smoking Status *Q: Never Smoker Packs/Tins Daily: 1 Used Tobacco, but Quit: Yes Month Tobacco Last Used: 23 years Second Hand Smoke Exposure: No - Caffeine Use Caffeine Use: Reports: Coffee, Tea Other Caffeine Use: occasional. - Alcohol Use Days Per Week of Alcohol Use: 0 - Recreational Drug Use Recreational Drug Use: No Drug Use in Last 12 Months: Yes Recreational Drug Type: Reports: Dilaudid, Oxycodone - Living Situation & Occupation Living situation: Reports: , with Spouse Occupation: Unemployed ED ROS GENERAL - Review of Systems Review Of Systems: See Below Constitutional: Reports: Fever, Chills, Malaise, Weakness, Fatigue HEENT: Reports: No Symptoms Respiratory: Reports: No Symptoms Cardiovascular: Reports: No Symptoms Endocrine: Reports: Fatigue GI/Abdominal: Reports: Abdominal Pain, Anorexia (See history of present illness) , Diarrhea (10-14 times per day), Nausea, Vomiting (Intractable nausea and vomiting. Emesis is been bilious thus far without blood.). Denies: Black Stool , Bloody Stool, Constipation : 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 (Naveen she has voided at least twice per day for the last 3 days.) Musculoskeletal: Reports: Back Pain Skin: Reports: No Symptoms (Left back and flank pain radiating from the left upper quadrant of the abdomen.) Neurological: Reports: No Symptoms, Other Psychiatric: Reports: No Symptoms (Tired from not being able to sleep due to pain.), Depression Hematologic/Lymphatic: Reports: No Symptoms ED EXAM, GI/ABD - Physical Exam Exam: See Below (Due to chronic illness.) Exam Limited By: No Limitations General Appearance: Alert, WD/WN, Moderate Distress, Other (Does feel quite warm to palpation. Nurses got temperature to be 36.3.) Eyes: Bilateral: Normal Appearance (No jaundice) Ears: Normal TMs Throat/Mouth: Normal Inspection, Normal Lips, Normal Teeth, Other (Tongue is mildly dry and coated.) Respiratory/Chest: No Respiratory Distress, Lungs Clear, Normal Breath Sounds, Chest Non-Tender Cardiovascular: Normal Peripheral Pulses, Regular Rate, Rhythm, No Edema, No Gallop, No Murmur GI/Abdominal Exam: Guarding ( Severe tenderness left upper quadrant of the abdomen with guarding.), Tender (Hypoactive bowel sounds throughout.), Abnormal Bowel Sounds. No: Rigid, Rebound Back Exam: Normal Inspection (Moderate), CVA Tenderness (L). No: CVA Tenderness (R) Extremities: Normal Inspection, Normal Range of Motion, Non-Tender Neurological: Alert, Oriented, CN II-XII Intact, Normal Cognition Psychiatric: Normal Affect, Normal Mood Skin Exam: Warm, Dry, Intact, Normal Color, No Rash Course - Vital Signs Last Recorded V/S: Last Vital Signs Temp 36.3 C 12/06/17 09:20 Pulse 83 12/06/17 09:20 Resp 16 12/06/17 09:20 BP 156/107 H 12/06/17 09:20 Pulse Ox 100 12/06/17 09:20 - Orders/Labs/Meds Labs: Laboratory Tests 12/06/17 12/06/17 Range/Units 10:20 10:20 WBC 7.83 (3.98-10.04) K/mm3 RBC 3.89 L (3.98-5.22) M/mm3 Hgb 11.6 (11.2-15.7) gm/L Hct 35.1 (34.1-44.9) % MCV 90.2 (79.4-94.8) fl MCH 29.8 (25.6-32.2) pg MCHC 33.0 (32.2-35.5) g/dl RDW Std Deviation 43.7 (36.4-46.3) fL Plt Count 236 (182-369) K/mm3 MPV 10.2 (9.4-12.3) fl Neutrophils % (Manual) 68 H (40-60) % Band Neutrophils % 0 (0-10) % Lymphocytes % (Manual) 29 (20-40) % Atypical Lymphs % 0 % Monocytes % (Manual) 2 (2-10) % Eosinophils % (Manual) 1 (0.7-5.8) % Basophils % (Manual) 0 L (0.1-1.2) Platelet Estimate Adequate RBC Morph Comment Normal Sodium 140 (136-145) mEq/L Potassium 3.7 (3.5-5.1) mEq/L Chloride 103 (98-107) mEq/L Carbon Dioxide 25 (21-32) mEq/L Anion Gap 15.7 H (5-15) BUN 5 L (7-18) mg/dL Creatinine 0.7 (0.55-1.02) mg/dL Est Cr Clr Drug Dosing 112.06 mL/min Estimated GFR (MDRD) > 60 (>60) mL/min BUN/Creatinine Ratio 7.1 L (14-18) Glucose 97 (74-106) mg/dL Calcium 9.3 (8.5-10.1) mg/dL Total Bilirubin 0.2 (0.2-1.0) mg/dL AST 18 (15-37) U/L ALT 20 (14-59) U/L Alkaline Phosphatase 63 (46-116) U/L C-Reactive Protein 0.4 (<1.0) mg/dL Total Protein 7.8 (6.4-8.2) g/dl Albumin 3.5 (3.4-5.0) g/dl Globulin 4.3 gm/dL Albumin/Globulin Ratio 0.8 L (1-2) Lipase 255 (73-393) U/L Meds: Medications Discontinued Medications Generic Name Dose Route Start Last Admin Trade Name Freq PRN Reason Stop Dose Admin Diphenhydramine HCl 50 mg 12/06/17 09:42 12/06/17 10:02 Benadryl IM 12/06/17 09:43 50 mg ONETIME ONE Administration Hydromorphone HCl 2 mg 12/06/17 09:41 12/06/17 10:04 Dilaudid IM 12/06/17 09:42 2 mg ONETIME ONE Administration Hydromorphone HCl 2 mg 12/06/17 11:23 12/06/17 11:40 Dilaudid IVPUSH 12/06/17 11:24 Not Given ONETIME ONE Hydromorphone HCl 2 mg 12/06/17 11:25 12/06/17 11:38 Dilaudid IM 12/06/17 11:26 2 mg ONETIME ONE Administration Ketorolac Tromethamine 30 mg 12/06/17 09:45 Toradol IVPUSH ONETIME EDSON Ketorolac Tromethamine 60 mg 12/06/17 09:49 12/06/17 09:55 Toradol IM 12/06/17 09:50 60 mg ONETIME ONE Administration Lorazepam 1 mg 12/06/17 09:43 12/06/17 09:55 Ativan IM 12/06/17 09:44 1 mg ONETIME ONE Administration - Radiology Interpretation Free Text/Narrative:: 42-year-old female presents to the ED with severe left upper quadrant abdominal pain radiating through to her back flank area. Patient has expressed these symptoms many many times in the past few years due to relapsing chronic pancreatitis. Cause of this is unclear she does not drink alcohol use had previous cholecystectomy. Awaiting further investigations by in [facility] towards end of this month. The concern is that she has necrotic pancreatic tissue in the tail of the pancreas that may have to be resected. He does take pancreatic enzymes supplements with all meals. Current episode flareup started 4 days ago. She's continued to have intermittent nausea and vomiting although she's keeping down sips of fluids and voiding once or twice per day. She is take Tylenol only for pain relief and it's not being effective. Routine labs including a lipase and a CRP to be done. She feels warm to palpation to me Given 2 mg of Dilaudid IM with Toradol 60 mg IM and Zofran 4 mg IM and Benadryl 50 mg IM for acute pain relief also Ativan 1 mg IM. - Re-Assessments/Exams Free Text/Narrative Re-Assessment/Exam: 12/06/17 11:24 Labs are back. White count is normal at 7.83. Hemoglobin slightly low 11.6 with hematocrit of 35.1. Platelet count normal 236,000. Differential is 60% neutrophils no bands reported. Sodium is 140 potassium 3.7. Chloride 103 bicarbonate 25. Anion gap mildly elevated at 15.7. BUNs 5 creatinine is 0.7. GFR is greater than 60. Glucose today is 97. Calcium 9.3. Bilirubin 0.2 AST 18 ELT 20 alk phosphatase 63. C-reactive protein is 0.4. Lipase today is 255. Patient is still having significant pain rated as 6 or 7 out of 10. Will repeat Dilaudid 2 mg IM. 12/06/17 11:50: Patient will be discharged home. I did write a prescription through the instrumented machine for Percocet 5/3/25 milligram tabs one or 2 every 4-6 hours for pain relief 20 tablets. Departure - Departure Time of Disposition: 11:50 Disposition: Home, Self-Care 01 Condition: Fair Clinical Impression: Chronic relapsing pancreatitis - Discharge Information Prescriptions: oxyCODONE HCl/Acetaminophen [Percocet 5-325 mg Tablet] 1 - 2 each PO Q4H PRN # 20 tablet PRN Reason: pain relief. Referrals: Rik Walls PA-C [Primary Care Provider] - Forms: ED Department Discharge Additional Instructions: Continue all medications as before. Clear fluids and pancreatic enzyme supplements until current flareup settles down. May use Percocet 5/3/25 milligram tablets one or 24-6 hours for pain relief as needed. Zofran 4 mg sublingual every 4 hours for or nausea relief.
[2017-12-06] MEDS ORDERED: HYDROmorphone 1 MG/ML Syringe IVPUSH ONE (11:23)
== END 2017-12-06 12:06 | disposition home or self-care (01) ==
LOC: JD.ED 09:11
DX: K86.1 Other chronic pancreatitis (principal); Z87.891 Personal history of nicotine dependence; E03.9 Hypothyroidism, unspecified; Z79.899 Other long term (current) drug therapy; Z88.8 Allergy status to other drugs, medicaments and biological substances; Z86.73 Personal history of transient ischemic attack (TIA), and cerebral infarction without residual deficits
CPT/HCPCS: 36415; 80053; 83690; 85025; 86140; 96372; 99284; J1170; J1200; J1885; J2060

== ENCOUNTER 2017-12-08 08:20 | Emergency (ER) | payer MEDICARE, BC ==
[2017-12-08] MEDS ORDERED: HYDROmorphone 1 MG/ML Syringe IM ONE ×2 (09:34→11:28)
--- NOTE | 2017-12-08 09:35 | EDM.PDOC ---
ED HPI GENERAL MEDICAL PROBLEM - General Chief Complaint: Abdominal Pain Stated Complaint: ABDOMINAL PAIN Time Seen by Provider: 12/08/17 09:34 Source of Information: Reports: Patient History Limitations: Reports: No Limitations - History of Present Illness INITIAL COMMENTS - FREE TEXT/NARRATIVE: 42-year-old female presents to the ED with severe left upper quadrant abdominal pain radiating through to her back characteristic of her pancreatitis attack. Patient has known chronic pancreatitis initially diagnosed by ERCP in the [facility]. She has had intermittent marked elevations of her serum lipases over the years. This started to occur after gallstone induced pancreatitis. Currently is living on clear fluids. Continues to lose weight. Diet centers 2 days ago with similar type complaints. Today she woke at 0300 hrs. started vomiting and is been able to down any medications. She felt warm and chills for a period of time. States her stools are loose and yellow in color. Emesis is been bilious without he met emesis. Pain 10 out of 10. She reports she feels no different except for perhaps more intense than it has been on the last several attacks. No serum lipase done last visit was within normal limits. 40 Onset: Other (Chronic pancreatitis with flares of acute pancreatitis. Current flareup started 5 days ago.) Onset Date: 12/04/17 (Started vomiting this morning about 3:00 and cannot stop.) Duration: Day(s): Location: Reports: Abdomen Quality: Reports: Ache (Left upper quadrant of the abdomen rating to to the left flank.), Stabbing Severity: Severe Improves with: Reports: None (10 out of 10.) Worsens with: Reports: None Context: 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 (History of chronic relapsing pancreatitis.). Denies: Activity, Exercise, Lifting, Sick Contact, Trauma Associated Symptoms: Reports: Fever/Chills, Loss of Appetite, Malaise, Nausea/ Vomiting (Warren febrile and chilled this morning), Weakness (Generalized). 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: Acetaminophen (Did keep some Tylenol down but pain medication did not stay down.) Left Upper Back Pain Score (Numeric/FACES): 10 - Related Data Allergies Allergy/AdvReac Type Severity Reaction Status Date / Time metoclopramide HCl Allergy Itching Verified 12/08/17 08:33 [From Reglan] buprenorphine [From Butrans] AdvReac Other Verified 12/06/17 09:15 prochlorperazine AdvReac Vomiting Verified 12/06/17 09:15 [From Compazine] Home Meds: Home Meds Levothyroxine Sodium [Synthroid] 300 mcg PO DAILY 01/13/17 [History] Gabapentin [Neurontin] 1,200 mg PO TID PRN 04/25/17 [History] Ondansetron [Zofran ODT] 4 mg PO Q4H PRN #30 tab.dis 05/14/17 [Rx] Acetaminophen [Mapap] 3 tab PO TID PRN 07/17/17 [History] Ascorbic Acid [Vitamin C with Kiersten Hips] 2 tab PO TID 07/17/17 [History] Garlic [Odorless Garlic] 2 tab PO TID 07/17/17 [History] Grape Seed Extract [Grape Seed] 50 mg PO TID 07/17/17 [History] Lansoprazole [Prevacid 24Hr] 15 mg PO DAILY 07/17/17 [History] Milk Thistle 2 tab PO TID 07/17/17 [History] Lipase/Protease/Amylase [Marleni Dr 4,200 Unit Cap] 1 tab PO DAILY 10/27/17 [ History] Temazepam [Temazepam] 15 mg PO BEDTIME PRN 11/08/17 [History] oxyCODONE HCl/Acetaminophen [Percocet 5-325 mg Tablet] 1 - 2 each PO Q4H PRN # 20 tablet 12/06/17 [Rx] Past Medical History - Past Health History Medical/Surgical History: Denies Medical/Surgical History HEENT History: Reports: Glaucoma Other Respiratory History: cough RLQ Gastrointestinal History: Reports: Pancreatitis, Other (See Below) Other Gastrointestinal History: chronic pancreatitis, fatty pancreas 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: 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 OB/BYN History: c section x3, tubes tied Musculoskeletal History: Reports: Arthritis Neurological History: Reports: TIA, Other (See Below) Other Neuro History: pseudotumor, shunt Psychiatric History: Reports: Addiction, Anxiety, Emotional Problems Endocrine/Metabolic History: Reports: Hypothyroidism Hematologic History: Reports: Anemia - Infectious Disease History Infectious Disease History: Reports: C-Difficile, MRSA Other Infectious Disease History: in 2006 - Past Surgical History Head Surgeries/Procedures: Reports: Craniotomy, Shunt HEENT Surgical History: Reports: Oral Surgery GI Surgical History: Reports: Appendectomy, Bariatric Procedure, Cholecystectomy , ERCP Female Surgical History: Reports: Section, Tubal Ligation Social & Family History - Family History Family Medical History: Noncontributory Cardiac: Reports: Bypass, Hypertension, [place] Respiratory: Reports: Asthma Oncologic: Reports: Colon - Tobacco Use Smoking Status *Q: Never Smoker Packs/Tins Daily: 1 Used Tobacco, but Quit: Yes Month Tobacco Last Used: 23 years Second Hand Smoke Exposure: No - Caffeine Use Caffeine Use: Reports: Coffee, Tea Other Caffeine Use: occasional. - Alcohol Use Days Per Week of Alcohol Use: 0 - Recreational Drug Use Recreational Drug Use: No Drug Use in Last 12 Months: Yes Recreational Drug Type: Reports: Dilaudid, Oxycodone - Living Situation & Occupation Living situation: Reports: , with Spouse Occupation: Unemployed ED ROS GENERAL - Review of Systems Review Of Systems: See Below Constitutional: Reports: Fever, Chills, Malaise, Weakness, Fatigue, Decreased Appetite, Weight Loss HEENT: 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 Respiratory: Reports: No Symptoms (Dry mouth) Cardiovascular: Reports: No Symptoms Endocrine: Reports: Fatigue GI/Abdominal: Reports: Abdominal Pain, Diarrhea (See history present illness stools are always loose and 10 to be yellow in color.), Nausea, Vomiting. Denies: Hematemesis (Intractable nausea and vomiting since 3:00 this morning without hematemesis.), Hematochezia : Reports: No Symptoms Musculoskeletal: Reports: Back Pain (Left flank pain that starts in her left abdomen.) Skin: Denies: Jaundice Psychiatric: Reports: Depression (Admits depression due to chronic illness.), Mood Lability. Denies: Suicidal Ideation Hematologic/Lymphatic: Reports: No Symptoms Immunologic: Reports: No Symptoms ED EXAM, GI/ABD - Physical Exam Exam: See Below Exam Limited By: No Limitations General Appearance: Alert, WD/WN, Mild Distress Eyes: Bilateral: Normal Appearance (No jaundice.) Throat/Mouth: Normal Inspection Head: Atraumatic, Normocephalic (tongue is mildly dry.) Neck: Normal Inspection, Supple, Non-Tender, Full Range of Motion. No: Lymphadenopathy (L), Lymphadenopathy (R) Respiratory/Chest: No Respiratory Distress, Lungs Clear, Normal Breath Sounds, Chest Non-Tender. No: No Accessory Muscle Use Cardiovascular: Regular Rate, Rhythm, No Edema, No Gallop, No Murmur, No Rub. No: Normal Peripheral Pulses GI/Abdominal Exam: Distended (Mildly distended is mildly tympanitic to percussion upper abdomen.), Guarding (Left upper quadrant starting in the epigastrium and radiating to the left anterior axillary line.), Tender (Severe tenderness to light palpation left upper quadrant abdomen with guarding.), Abnormal Bowel Sounds (Hypoactive to alcohol almost absent bowel sounds.) Back Exam: CVA Tenderness (L). No: CVA Tenderness (R) Extremities: Normal Inspection, Normal Range of Motion, Non-Tender, No Pedal Edema Neurological: Alert, Oriented, CN II-XII Intact, Normal Cognition Psychiatric: Normal Affect, Normal Mood Skin Exam: Warm, Dry, Intact, Normal Color, No Rash Course - Vital Signs Last Recorded V/S: Last Vital Signs Temp 36.1 C 12/08/17 08:35 Pulse 79 12/08/17 12:25 Resp 16 12/08/17 12:25 BP 134/85 12/08/17 12:25 Pulse Ox 97 12/08/17 12:25 - Orders/Labs/Meds Labs: Laboratory Tests 12/08/17 12/08/17 Range/Units 10:12 10:12 WBC 6.51 (3.98-10.04) K/mm3 RBC 3.81 L (3.98-5.22) M/mm3 Hgb 11.2 (11.2-15.7) gm/L Hct 35.0 (34.1-44.9) % MCV 91.9 (79.4-94.8) fl MCH 29.4 (25.6-32.2) pg MCHC 32.0 L (32.2-35.5) g/dl RDW Std Deviation 44.8 (36.4-46.3) fL Plt Count 204 (182-369) K/mm3 MPV 10.1 (9.4-12.3) fl Neutrophils % (Manual) 49 (40-60) % Band Neutrophils % 0 (0-10) % Lymphocytes % (Manual) 45 H (20-40) % Atypical Lymphs % 0 % Monocytes % (Manual) 5 (2-10) % Eosinophils % (Manual) 1 (0.7-5.8) % Basophils % (Manual) 0 L (0.1-1.2) Platelet Estimate Adequate RBC Morph Comment Normal Sodium 142 (136-145) mEq/L Potassium 3.8 (3.5-5.1) mEq/L Chloride 106 (98-107) mEq/L Carbon Dioxide 26 (21-32) mEq/L Anion Gap 13.8 (5-15) BUN 8 (7-18) mg/dL Creatinine 0.7 (0.55-1.02) mg/dL Est Cr Clr Drug Dosing 112.06 mL/min Estimated GFR (MDRD) > 60 (>60) mL/min BUN/Creatinine Ratio 11.4 L (14-18) Glucose 85 (74-106) mg/dL Calcium 9.0 (8.5-10.1) mg/dL Total Bilirubin 0.1 L (0.2-1.0) mg/dL AST 19 (15-37) U/L ALT 18 (14-59) U/L Alkaline Phosphatase 56 (46-116) U/L C-Reactive Protein 1.2 H* (<1.0) mg/dL Total Protein 7.4 (6.4-8.2) g/dl Albumin 3.4 (3.4-5.0) g/dl Globulin 4.0 gm/dL Albumin/Globulin Ratio 0.9 L (1-2) Lipase 185 (73-393) U/L Meds: Medications Discontinued Medications Generic Name Dose Route Start Last Admin Trade Name Freq PRN Reason Stop Dose Admin Diphenhydramine HCl 50 mg 12/08/17 09:39 12/08/17 09:58 Benadryl IM 12/08/17 09:40 50 mg ONETIME ONE Administration Fentanyl 100 mcg 12/08/17 09:57 12/08/17 10:13 Sublimaze IVPUSH 12/08/17 09:58 Not Given ONETIME ONE Hydromorphone HCl 2 mg 12/08/17 09:34 12/08/17 09:57 Dilaudid IM 12/08/17 09:35 2 mg ONETIME ONE Administration Hydromorphone HCl 2 mg 12/08/17 11:28 12/08/17 11:42 Dilaudid IM 12/08/17 11:29 2 mg ONETIME ONE Administration Ketorolac Tromethamine 60 mg 12/08/17 09:38 12/08/17 09:55 Toradol IM 12/08/17 09:39 60 mg ONETIME ONE Administration Lorazepam 1 mg 12/08/17 10:03 12/08/17 10:12 Ativan IVPUSH 12/08/17 10:04 Not Given ONETIME ONE Ondansetron HCl 4 mg 12/08/17 09:58 12/08/17 10:13 Zofran IVPUSH 12/08/17 09:59 Not Given ONETIME ONE Promethazine HCl 50 mg 12/08/17 09:38 12/08/17 09:56 Phenergan IM 12/08/17 09:39 50 mg ONETIME ONE Administration - Radiology Interpretation Free Text/Narrative:: 42-year-old female with known chronic relapsing pancreatitis once again presents the ED due to intractable nausea and vomiting and intractable left upper quadrant abdominal pain. It's either 2 days ago with similar complaints. She states she's been taking mostly clear fluids such as Gatorade Powerade. Stools remain loose and yellow in consistency. They tend to be worse during an attack area. Pain is 10 out of 10. She awoke at 0300 hrs. this morning with intractable nausea and vomiting of bilious material. No hematemesis reported. She has absence of any veins and therefore starting a peripheral IV is always a major issue. Her medications will therefore be given IM. Start with Dilaudid 2 mg IM with Benadryl 50 mg IM and Toradol 60 mg IM. Given Phenergan 50 mg IM to arrest vomiting. - Re-Assessments/Exams Free Text/Narrative Re-Assessment/Exam: 12/08/17 11:27 Labs reveal a normal white count at 6.51 with a normal differential. Hemoglobin is 11.2 by a count 204,000. Sodium 142 potassium 3.8. Toward 16 bicarbonate 26. And a gap is 13.8. BUN is 8 creatinine is 0.7. EGFR is greater than 60. There is no evidence of significant volume depletion. Glucose was 85 slightly low calcium 9.0. Bilirubin total 0.1. Liver function otherwise normal C-reactive protein 1.2 today's lipase is 185. Patient did get mild relief of pain from initial analgesia. She is requesting further analgesia at this time. Nausea has improved with no further vomiting. Will repeat Dilaudid 2 mg IM. 12/08/17 12:25: Patient has had no further vomiting or retching. States the pain is down to 3 out of 10 which is what is good as it's going to get. She will therefore be discharged to home. Her is here to provide a ride. She has have a few Percocet tablets left from previous visit. She'll continue Percocet 10/325 mg tabs one half to one tablet every 4-6 hours needed for pain relief for the next couple of days until her flareup settles down. Departure - Departure Time of Disposition: 12:30 Disposition: Home, Self-Care 01 Condition: Fair Clinical Impression: Chronic relapsing pancreatitis, Abdominal pain - Discharge Information Referrals: Rik Walls PA-C [Primary Care Provider] - Forms: ED Department Discharge Additional Instructions: Evaluation the emergency room again today in regards to recurrence of pancreatitis. Severe left upper quadrant abdominal pain associated with intractable nausea and vomiting. Lab work proved to be essentially normal today and you are maintaining hydration quite well with her clear fluids. You're treated with pain medication and antinausea medication in the ED today. Trying continue antinausea medication and pain medication with Percocet 10/3/25 milligram tablet one every 4 hours as needed for pain relief at home.
[2017-12-08] MEDS ORDERED: Promethazine 25 MG/ML SDV IM ONE (09:38)
[2017-12-08] MEDS ORDERED: Ketorolac 60 MG/2 ML SDV IM ONE (09:38)
[2017-12-08] MEDS ORDERED: diphenhydrAMINE 50 MG/ML SDV IM ONE (09:39)
[2017-12-08] MEDS ORDERED: fentaNYL 100 MCG/2 ML SDV IVPUSH ONE (09:57)
[2017-12-08] MEDS ORDERED: Ondansetron 4 MG/2 ML SDV IVPUSH ONE (09:58)
[2017-12-08] MEDS ORDERED: LORazepam 2 MG/ML MDV IVPUSH ONE (10:03)
[2017-12-08 12:46] VITALS: BP 134/85
== END 2017-12-08 13:07 | disposition home or self-care (01) ==
LOC: JD.ED 08:20
DX: K86.1 Other chronic pancreatitis (principal); Z88.8 Allergy status to other drugs, medicaments and biological substances; Z79.899 Other long term (current) drug therapy
CPT/HCPCS: 36415; 80053; 83690; 85025; 86140; 96372; 99284; J1170; J1200; J1885; J2550

== ENCOUNTER 2017-12-11 09:29 | Emergency (ER) | payer BC, MEDICARE ==
[2017-12-11 09:38] VITALS: BP 141/105
[2017-12-11] MEDS ORDERED: Promethazine 25 MG/ML SDV IM ONE (11:32)
[2017-12-11] MEDS ORDERED: HYDROmorphone 1 MG/ML Syringe IM ONE (11:32)
[2017-12-11] MEDS ORDERED: Ondansetron 4 MG Tab.DIS PO ONE (11:32)
--- NOTE | 2017-12-11 11:54 | EDM.PDOC ---
ED HPI GENERAL MEDICAL PROBLEM - General Chief Complaint: Gastrointestinal Problem Stated Complaint: PANCREATITIS Time Seen by Provider: 12/11/17 11:14 Source of Information: Reports: Patient, RN Notes Reviewed - History of Present Illness INITIAL COMMENTS - FREE TEXT/NARRATIVE: 42 year old female with LUQ, abd pain, N/Vomiting similar to multiple other prior episodes, ED and clinic visits. She she has hx of "Chronic Pancreatitis" . She states due to worsening sx she has an appt. to see Dr Gutierrez [facility] this coming Thursday 3 days from now. There is consideration to "place a feeding tube and bypass her stomach". Loose stools but no watery diarrhea. Has "not been eating" difficulty keeping fluids down, unable to take oral pain mediation due to nausea/vomiting." Left Upper Abdomen Pain Score (Numeric/FACES): 8 - Related Data Allergies Allergy/AdvReac Type Severity Reaction Status Date / Time metoclopramide HCl Allergy Itching Verified 12/11/17 09:38 [From Reglan] buprenorphine [From Butrans] AdvReac Other Verified 12/11/17 09:38 prochlorperazine AdvReac Vomiting Verified 12/11/17 09:38 [From Compazine] Home Meds: Home Meds Levothyroxine Sodium [Synthroid] 300 mcg PO DAILY 01/13/17 [History] Gabapentin [Neurontin] 1,200 mg PO TID PRN 04/25/17 [History] Ondansetron [Zofran ODT] 4 mg PO Q4H PRN #30 tab.dis 05/14/17 [Rx] Acetaminophen [Mapap] 3 tab PO TID PRN 07/17/17 [History] Ascorbic Acid [Vitamin C with Kiersten Hips] 2 tab PO TID 07/17/17 [History] Garlic [Odorless Garlic] 2 tab PO TID 07/17/17 [History] Grape Seed Extract [Grape Seed] 50 mg PO TID 07/17/17 [History] Lansoprazole [Prevacid 24Hr] 15 mg PO DAILY 07/17/17 [History] Milk Thistle 2 tab PO TID 07/17/17 [History] Lipase/Protease/Amylase [Marleni Melgar 4,200 Unit Cap] 1 tab PO DAILY 10/27/17 [ History] Temazepam [Temazepam] 15 mg PO BEDTIME PRN 11/08/17 [History] oxyCODONE HCl/Acetaminophen [Percocet 5-325 mg Tablet] 1 - 2 each PO Q4H PRN # 20 tablet 12/06/17 [Rx] Past Medical History - Past Health History Medical/Surgical History: Denies Medical/Surgical History HEENT History: Reports: Glaucoma Respiratory History: 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 (See Below) Other Respiratory History: cough RLQ Gastrointestinal History: Reports: Pancreatitis, Other (See Below) Other Gastrointestinal History: chronic pancreatitis, fatty pancreas 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 OB/BYN History: c section x3, tubes tied Musculoskeletal History: Reports: Arthritis Neurological History: Reports: TIA, Other (See Below) Other Neuro History: pseudotumor, shunt Psychiatric History: Reports: Addiction, Anxiety, Emotional Problems Endocrine/Metabolic History: Reports: Hypothyroidism Hematologic History: Reports: Anemia - Infectious Disease History Infectious Disease History: Reports: C-Difficile, MRSA Other Infectious Disease History: in 2006 - Past Surgical History Head Surgeries/Procedures: Reports: Craniotomy, Shunt HEENT Surgical History: Reports: Oral Surgery GI Surgical History: Reports: Appendectomy, Bariatric Procedure, Cholecystectomy , ERCP Female Surgical History: Reports: Section, Tubal Ligation Social & Family History - Family History Family Medical History: Noncontributory Cardiac: Reports: Bypass, Hypertension, [place] Respiratory: Reports: Asthma Oncologic: Reports: Colon - Tobacco Use Smoking Status *Q: Never Smoker Packs/Tins Daily: 1 Used Tobacco, but Quit: Yes Month Tobacco Last Used: 23 years Second Hand Smoke Exposure: No - Caffeine Use Caffeine Use: Reports: Coffee Other Caffeine Use: occasional. - Alcohol Use Days Per Week of Alcohol Use: 0 - Recreational Drug Use Recreational Drug Use: No Drug Use in Last 12 Months: Yes Recreational Drug Type: Reports: Dilaudid, Oxycodone - Living Situation & Occupation Living situation: Reports: , with Spouse Occupation: Unemployed ED ROS GENERAL - Review of Systems Review Of Systems: See Below Constitutional: Reports: Chills. Denies: Fever HEENT: Denies: Throat Pain Respiratory: Denies: Shortness of Breath, Wheezing, Pleuritic Chest Pain Cardiovascular: Denies: Chest Pain GI/Abdominal: Reports: Abdominal Pain, Diarrhea (loose stool only), Nausea, Vomiting. Denies: Constipation Musculoskeletal: Reports: Back Pain Skin: Reports: No Symptoms Neurological: Reports: No Symptoms ED EXAM, GI/ABD - Physical Exam Exam: See Below General Appearance: Alert, Mild Distress Eyes: Bilateral: Normal Appearance Throat/Mouth: Normal Inspection, Normal Oropharynx Respiratory/Chest: No Respiratory Distress, Lungs Clear, Normal Breath Sounds Cardiovascular: Regular Rate, Rhythm GI/Abdominal Exam: Soft, Tender (upper mid abd and LUQ, abd otherwise soft and nontender. ) Back Exam: No: CVA Tenderness (L), CVA Tenderness (R) Extremities: Normal Inspection, Normal Range of Motion Neurological: Alert, Oriented, No Motor/Sensory Deficits Skin Exam: Warm, Dry, Normal Color Course - Vital Signs Last Recorded V/S: Last Vital Signs Temp 97.9 F 12/11/17 09:36 Pulse 89 12/11/17 09:36 Resp 18 12/11/17 09:36 BP 141/105 H 12/11/17 09:36 Pulse Ox 97 12/11/17 09:36 - Orders/Labs/Meds Meds: Medications Discontinued Medications Generic Name Dose Route Start Last Admin Trade Name Dominic PRN Reason Stop Dose Admin Hydromorphone HCl 2 mg 12/11/17 11:32 12/11/17 11:45 Dilaudid IM 12/11/17 11:33 2 mg ONETIME ONE Administration Ondansetron HCl 4 mg 12/11/17 11:32 12/11/17 11:44 Zofran Odt PO 12/11/17 11:33 4 mg ONETIME ONE Administration Promethazine HCl 50 mg 12/11/17 11:32 12/11/17 11:46 Phenergan IM 12/11/17 11:33 50 mg ONETIME ONE Administration - Re-Assessments/Exams Free Text/Narrative Re-Assessment/Exam: 12/11/17 13:20 Had labs 2 days ago and 4 days ago, WBC, lipase normal, chemistries relatively normal, not going to repeat labs today, discharge instr. as documented. Departure - Departure Time of Disposition: 11:52 Disposition: Home, Self-Care 01 Condition: Fair Clinical Impression: Abdominal pain, History of chronic pancreatitis Abdominal pain Qualifiers: Abdominal location: upper abdomen, unspecified Qualified Code(s): R10.10 - Upper abdominal pain, unspecified Vomiting Qualifiers: Vomiting type: unspecified Vomiting Intractability: non-intractable Nausea presence: with nausea Qualified Code(s): R11.2 - Nausea with vomiting, unspecified - Discharge Information Referrals: Rik Walls PA-C [Primary Care Provider] - Forms: ED Department Discharge Additional Instructions: clear liquids small amounts at a time as tolerated, zofran if needed for further nausea or vomiting. Follow up [facility] as planned.
== END 2017-12-11 12:02 | disposition home or self-care (01) ==
LOC: JD.ED 09:29
DX: R10.12 Left upper quadrant pain (principal); R11.2 Nausea with vomiting, unspecified; Z87.19 Personal history of other diseases of the digestive system; E03.9 Hypothyroidism, unspecified; Z88.8 Allergy status to other drugs, medicaments and biological substances; Z79.899 Other long term (current) drug therapy; Z90.49 Acquired absence of other specified parts of digestive tract; Z87.891 Personal history of nicotine dependence
CPT/HCPCS: 96372; 99284; A9270; J1170; J2550; 99283

== ENCOUNTER 2017-12-12 11:49 | Emergency (ER) | payer BC, MEDICARE ==
[2017-12-12 11:58] VITALS: BP 139/96
[2017-12-12] MEDS ORDERED: diphenhydrAMINE 50 MG/ML SDV IM ONE (12:37)
[2017-12-12] MEDS ORDERED: Promethazine 25 MG/ML SDV IM ONE (12:37)
[2017-12-12] MEDS ORDERED: Ketorolac 60 MG/2 ML SDV IM ONE (12:37)
--- NOTE | 2017-12-12 12:40 | EDM.PDOC ---
ED HPI GENERAL MEDICAL PROBLEM - General Chief Complaint: Abdominal Pain Stated Complaint: PANCREATITIS Time Seen by Provider: 12/12/17 12:15 Source of Information: Reports: Patient, Old Records History Limitations: Reports: No Limitations - History of Present Illness INITIAL COMMENTS - FREE TEXT/NARRATIVE: 42 year old female presents for evaluation and treatment of epigastric pain from chronic pancreatitis. Patient has been seen in the ER numerous occasions for her chronic pain and chronic pancreatitis. This is her sixth visit to the ER this month for the same problem. I reviewed the records from her most recent visits. She was seen yesterday where she was treated with IM Dilaudid. Reports that her pain subsided until around 0200 this morning. She states that she attempted to take a Percocet, that she had at home, but vomited up this up. She did not attempt to take anymore as she was concerned she is going to vomit up the pills. She did not take any Zofran, that she has at home. She states that the pain is unbearable. Rates the pain as a 10/10. Reports that her contacted [facility] where they spoke to on-call provider for gastroenterology. She was instructed to come here for pain control. Per the patient's report she is scheduled to go to [facility] thursday where she is to have a feeding tube that will bypass her stomach and pancreas. Plan is to have this placed tomorrow. plan to be there one week. She states in a couple months if this feeding tube does not all resolve her problems they're talking about removal of her pancreas. Patient reports she is not currently knee pain contract now. She does have Percocet at home that she received on 12-06-17 (#20). 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 Montes, pain management, at [facility]. She states that her solar sales energy advisor, Dr. Gutierrez does not rate for pain medications that why she is not receiving any from him. When asked about her most recent pain contracts she states that she was on them for her head. States she has never been on a pain contract for her chronic abdominal pain. Left Upper Abdomen Pain Score (Numeric/FACES): 7 - Related Data Allergies Allergy/AdvReac Type Severity Reaction Status Date / Time metoclopramide HCl Allergy Itching Verified 12/11/17 09:38 [From Reglan] buprenorphine [From Butrans] AdvReac Other Verified 12/11/17 09:38 prochlorperazine AdvReac Vomiting Verified 12/11/17 09:38 [From Compazine] Home Meds: Home Meds Levothyroxine Sodium [Synthroid] 300 mcg PO DAILY 01/13/17 [History] Gabapentin [Neurontin] 1,200 mg PO TID PRN 04/25/17 [History] Ondansetron [Zofran ODT] 4 mg PO Q4H PRN #30 tab.dis 05/14/17 [Rx] Acetaminophen [Mapap] 3 tab PO TID PRN 07/17/17 [History] Ascorbic Acid [Vitamin C with Kiersten Hips] 2 tab PO TID 07/17/17 [History] Garlic [Odorless Garlic] 2 tab PO TID 07/17/17 [History] Grape Seed Extract [Grape Seed] 50 mg PO TID 07/17/17 [History] Lansoprazole [Prevacid 24Hr] 15 mg PO DAILY 07/17/17 [History] Milk Thistle 2 tab PO TID 07/17/17 [History] Lipase/Protease/Amylase [Pancreazdwight Dr 4,200 Unit Cap] 1 tab PO DAILY 10/27/17 [ History] Temazepam [Temazepam] 15 mg PO BEDTIME PRN 11/08/17 [History] oxyCODONE HCl/Acetaminophen [Percocet 5-325 mg Tablet] 1 - 2 each PO Q4H PRN # 20 tablet 12/06/17 [Rx] Past Medical History - Past Health History Medical/Surgical History: Denies Medical/Surgical History HEENT History: Reports: Glaucoma Respiratory History: 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 (See Below) Other Respiratory History: cough RLQ Gastrointestinal History: Reports: Pancreatitis, Other (See Below) Other Gastrointestinal History: chronic pancreatitis, fatty pancreas 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: 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 OB/BYN History: c section x3, tubes tied Musculoskeletal History: Reports: Arthritis Neurological History: Reports: TIA, Other (See Below) Other Neuro History: pseudotumor, shunt Psychiatric History: Reports: Addiction, Anxiety, Emotional Problems Endocrine/Metabolic History: Reports: Hypothyroidism Hematologic History: Reports: Anemia - Infectious Disease History Infectious Disease History: Reports: C-Difficile, MRSA Other Infectious Disease History: in 2006 - Past Surgical History Head Surgeries/Procedures: Reports: Craniotomy, Shunt HEENT Surgical History: Reports: Oral Surgery GI Surgical History: Reports: Appendectomy, Bariatric Procedure, Cholecystectomy , ERCP Female Surgical History: Reports: Section, Tubal Ligation Social & Family History - Family History Family Medical History: Noncontributory Cardiac: Reports: Bypass, Hypertension, [place] Respiratory: Reports: Asthma Oncologic: Reports: Colon - Tobacco Use Smoking Status *Q: Never Smoker Packs/Tins Daily: 1 Used Tobacco, but Quit: Yes Month Tobacco Last Used: 23 years Second Hand Smoke Exposure: No - Caffeine Use Caffeine Use: Reports: Tea Other Caffeine Use: occasional. - Alcohol Use Days Per Week of Alcohol Use: 0 - Recreational Drug Use Recreational Drug Use: No Drug Use in Last 12 Months: Yes Recreational Drug Type: Reports: Dilaudid, Oxycodone - Living Situation & Occupation Living situation: Reports: , with Spouse Occupation: Unemployed ED ROS GENERAL - Review of Systems Review Of Systems: See Below GI/Abdominal: Reports: Abdominal Pain, Nausea, Vomiting (x2 today) ED EXAM, GI/ABD - Physical Exam Exam: See Below Exam Limited By: No Limitations General Appearance: Alert, WD/WN, No Apparent Distress Respiratory/Chest: No Respiratory Distress Neurological: Alert, Oriented, Normal Cognition Psychiatric: Normal Affect, Normal Mood Skin Exam: Warm, Dry, Normal Color Course - Vital Signs Last Recorded V/S: Last Vital Signs Temp 36.4 C 12/12/17 11:57 Pulse 70 12/12/17 11:57 Resp 20 12/12/17 11:57 BP 139/96 H 12/12/17 11:57 Pulse Ox 100 12/12/17 11:57 - Orders/Labs/Meds Meds: Medications Discontinued Medications Generic Name Dose Route Start Last Admin Trade Name Freq PRN Reason Stop Dose Admin Diphenhydramine HCl 50 mg 12/12/17 12:37 12/12/17 12:48 Benadryl IM 12/12/17 12:38 50 mg ONETIME ONE Administration Ketorolac Tromethamine 60 mg 12/12/17 12:37 12/12/17 12:47 Toradol IM 12/12/17 12:38 60 mg ONETIME ONE Administration Promethazine HCl 25 mg 12/12/17 12:37 12/12/17 12:47 Phenergan IM 12/12/17 12:38 25 mg ONETIME ONE Administration - Re-Assessments/Exams Free Text/Narrative Re-Assessment/Exam: 12/12/17 12:38 After long discussion, mostly about her son pursuing a career in neurosurgery. She did not seem in any distress or any obvious pain to me. I question her pain scale rating of "10 out of 10 ". we decided to forego any labs. Her labs have been normal this past week. Also decided against any imaging. She has been recommended by her doctor not to have any additional imaging due to radiation concerns. I reviewed reviewed the patient's most recent ER visits. I informed her that I feel comfortable giving her Toradol, Phenergan and Benadryl. I informed her that it is our policy is that we do not treat chronic pain here in the ER. It is my hope that by giving her some Phenergan that this will help control her nausea so she can take her Percocet she has at home. She was agreeable to this. Plan to discharge after medication administration. Departure - Departure Time of Disposition: 12:39 Disposition: Home, Self-Care 01 Condition: Fair Clinical Impression: Abdominal pain - Discharge Information Referrals: Rik Walls PA-C [Primary Care Provider] - Forms: ED Department Discharge Additional Instructions: do not drive as the medication you received in the ER may make you sedated. you may take your Percocet 1-2 tabs every 4-6 hours that you have at home. follow-up with your Logging Rafter Laborer Thursday as planned. Please return to the ER for symptoms change or worsen.
== END 2017-12-12 12:45 | disposition home or self-care (01) ==
LOC: JD.ED 11:49
DX: R10.13 Epigastric pain (principal); R10.12 Left upper quadrant pain; K86.1 Other chronic pancreatitis; E03.9 Hypothyroidism, unspecified; Z79.899 Other long term (current) drug therapy; Z88.8 Allergy status to other drugs, medicaments and biological substances; Z90.49 Acquired absence of other specified parts of digestive tract; Z87.891 Personal history of nicotine dependence
CPT/HCPCS: 96372; 99284; J1200; J1885; J2550; 99283

== ENCOUNTER 2017-12-29 08:52 | Emergency (ER) | payer BC, MEDICARE ==
[2017-12-29] MEDS ORDERED: Sodium Chloride 0.9% 1,000 ML IV ONE (09:41)
[2017-12-29] MEDS ORDERED: Ketorolac 30 MG/ML SDV IVPUSH STA (09:51)
[2017-12-29] MEDS ORDERED: diphenhydrAMINE 50 MG/ML SDV IVPUSH ONE (09:51)
[2017-12-29] MEDS ORDERED: Ondansetron 4 MG/2 ML SDV IVPUSH ONE (11:01)
--- NOTE | 2017-12-29 11:27 | EDM.PDOC ---
ED HPI GENERAL MEDICAL PROBLEM - General Chief Complaint: Abdominal Pain Stated Complaint: PANCREATITIS Time Seen by Provider: 12/29/17 09:13 Source of Information: Reports: Patient, Family (), Old Records, RN History Limitations: Reports: No Limitations - History of Present Illness INITIAL COMMENTS - FREE TEXT/NARRATIVE: Medical records indicate that the patient was seen in this ED on 6 occasions this past November, all for epigastric/left upper quadrant pain that she claims is due to chronic pancreatitis, although, as well-documented from previous medical records, the patient does not meet criterion for a diagnosis of either acute or chronic pancreatitis. On occasion her lipase will be mildly elevated, but nowhere near 3 times upper limit of normal, which is one of the diagnostic criteria for acute pancreatitis, and ALL of the imaging studies of her abdomen have shown no pancreatic abnormality, ever. On 12/06/2017, she received a total of 6 mg of IV Dilaudid in this ED before being discharged home with a prescription for 20 tablets of Percocet. She was seen again on 12/08/2017, where she received 4 mg of IV Dilaudid and 100 g of IV fentanyl. She was seen on 12/11/2017, where no tests were done, but she received 2 mg of IM Dilaudid, then again on 12/12/2017, where no labs were done, and she received IM Toradol in lieu of narcotics. On that visit, the patient told the provider that she had been in contact with the [facility] , who instructed her to come to the ED for pain control, and that she was scheduled to go to the [facility] on 12/14/2017, where she would receive a feeding tube that would bypass her stomach and pancreas. She indicated that she would be admitted there for a week. Outside medical records indicate that the patient was then seen at the [place] ED on 12/13/2017 with a similar story, telling the provider that she was on her way to the [facility] to be admitted to the hospital, but that severe pain forced her to stop for pain medication. No tests were done, but the patient was given 2 mg of IV Dilaudid before being discharged. Medical records faxed from the [facility] indicate that the patient was seen in their ED on the morning of 12/14/2017, for the same complaint of upper abdominal pain, that a CBC, CMP, and lipase level were obtained, all of which were normal, and that the patient was then discharged about 2-1/2 hours later, after receiving 2 mg IV Dilaudid. No feeding tube was placed. She was subsequently seen by a lace tearing supervisor and Dr. Iam Montes from the pain management service, who prescribed methadone 5 mg po Q12 hrs, #60 tablets. The [place] HEAD GREENSKEEPER indicates that the prescription was filled that same day. It is interesting to note that the diagnosis given to the patient by Dr. Montes was "chronic abdominal pain", not chronic pancreatitis. Also of note, the patient did not see her Service Desk Agent, Dr. Faizan Gutierrez. The patient now presents stating that she has had the same epigastric/left upper quadrant abdominal pain radiating through to her back since Thursday, 2017. She states that the methadone was working well up until then, when it stopped working. She states that she continued to take the methadone through 12/28/2017, but that she has not taken any since. She states that she developed nausea and emesis on 12/28/2017, although she also says that she has not taken any solid food since 12/25/2017. She states that she had fatty stools and a temperature up to 101 on 12/27/2017, but none since. While the patient is prescribed Zofran, she states that she has not taken any, and has not tried any [id number] remedies. The patient denies any urinary symptoms. Neither the patient nor her have contacted her pain specialist , Dr. Montes. Left Upper Abdomen Pain Score (Numeric/FACES): 6 - Related Data Allergies Allergy/AdvReac Type Severity Reaction Status Date / Time buprenorphine [From Butrans] Allergy Itching Verified 12/29/17 08:59 metoclopramide HCl Allergy Itching Verified 12/29/17 08:59 [From Reglan] ketorolac [From Toradol] AdvReac Bleeding Verified 12/29/17 08:59 prochlorperazine AdvReac Vomiting Verified 12/29/17 08:59 [From Compazine] Home Meds: Home Meds Levothyroxine Sodium [Synthroid] 300 mcg PO DAILY 01/13/17 [History] Gabapentin [Neurontin] 1,200 mg PO TID PRN 04/25/17 [History] Ondansetron [Zofran ODT] 4 mg PO Q4H PRN #30 tab.dis 05/14/17 [Rx] Lansoprazole [Prevacid 24Hr] 75 mg PO DAILY 07/17/17 [History] Amylase/Lipase/Protease [Creon DR 12,000 Units] 24,000 - 76,000 units PO TIDMEALS 12/29/17 [History] Methadone 5 mg PO BID 12/29/17 [History] Naloxone HCl [Narcan] 4 mg CHELE ASDIRECTED PRN 12/29/17 [History] Zolpidem Tartrate [Ambien] 5 mg PO BEDTIME PRN 12/29/17 [History] Past Medical History 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: Neurological History: 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 (See Below) (Pseudotumor cerebri) Psychiatric History: Reports: Addiction (Opioids), Anxiety, Depression Endocrine/Metabolic History: Reports: Hypothyroidism, Obesity/BMI 30+ Hematologic History: Reports: Anemia - Infectious Disease History Infectious Disease History: Reports: C-Difficile, MRSA - Past Surgical History Head Surgeries/Procedures: Reports: Shunt (ACCOUNT INSTALLATION SPECIALIST), Other (See Below) (Benign pineal gland tumor excised 2012) HEENT Surgical History: Reports: Oral Surgery ([place] teeth extraction) GI Surgical History: Reports: Appendectomy, Bariatric Procedure (Laparoscopic gastric sleeve 02/12/2016), Cholecystectomy (06/04/2015), EGD, ERCP Female Surgical History: Reports: Section (x 3), Tubal Ligation Social & Family History - Family History Family Medical History: Noncontributory Cardiac: Reports: Bypass, Hypertension, [place] Respiratory: Reports: Asthma Oncologic: Reports: Colon - Tobacco Use Smoking Status *Q: Former Smoker Packs/Tins Daily: 1 Second Hand Smoke Exposure: No - Caffeine Use Caffeine Use: Reports: Coffee Other Caffeine Use: rarely - Alcohol Use Alcohol Use History: No Days Per Week of Alcohol Use: 0 - Recreational Drug Use Recreational Drug Use: Yes Drug Use in Last 12 Months: Yes Recreational Drug Type: Reports: Dilaudid, Other (see below) (Opioids) - Living Situation & Occupation Living situation: Reports: , with Spouse Occupation: Unemployed ED ROS GENERAL - Review of Systems Review Of Systems: ROS reveals no pertinent complaints other than HPI. ED EXAM, GI/ABD - Physical Exam Exam: See Below Exam Limited By: No Limitations General Appearance: Alert, WD/WN, No Apparent Distress Eyes: Bilateral: Normal Appearance, EOMI Ears: Normal External Exam, Hearing Grossly Normal Nose: Normal Inspection, No Blood Throat/Mouth: Normal Inspection, Normal Lips, Normal Voice, No Airway Compromise Head: Atraumatic, Normocephalic Neck: Normal Inspection, Full Range of Motion Respiratory/Chest: No Respiratory Distress, Lungs Clear, Normal Breath Sounds, No Accessory Muscle Use Cardiovascular: Normal Peripheral Pulses, Regular Rate, Rhythm, No Gallop, No JVD, No Murmur, No Rub GI/Abdominal Exam: Normal Bowel Sounds, Soft, No Organomegaly, No Distention, No Abnormal Bruit, No Mass, Tender (Epigastric and left upper quadrant only. Nontender elsewhere.), Other (Obese) (Female) Exam: Deferred Rectal (Female) Exam: Deferred Back Exam: Normal Inspection, Full Range of Motion. No: CVA Tenderness (L), CVA Tenderness (R) Extremities: Normal Inspection, Normal Range of Motion, No Pedal Edema, Normal Capillary Refill Neurological: Alert, Oriented, Normal Cognition, No Motor/Sensory Deficits Psychiatric: Normal Affect Skin Exam: Warm, Dry, Intact, Normal Color, No Rash Course - Vital Signs Last Recorded V/S: Last Vital Signs Temp 35.8 C 12/29/17 09:00 Pulse 91 12/29/17 11:37 Resp 16 12/29/17 11:37 BP 103/70 12/29/17 11:37 Pulse Ox 95 12/29/17 11:37 - Orders/Labs/Meds Labs: Laboratory Tests 12/29/17 12/29/17 Range/Units 10:05 10:05 WBC 8.87 (3.98-10.04) K/mm3 RBC 4.44 (3.98-5.22) M/mm3 Hgb 12.9 (11.2-15.7) gm/L Hct 40.3 (34.1-44.9) % MCV 90.8 (79.4-94.8) fl MCH 29.1 (25.6-32.2) pg MCHC 32.0 L (32.2-35.5) g/dl RDW Std Deviation 44.0 (36.4-46.3) fL Plt Count 273 (182-369) K/mm3 MPV 10.2 (9.4-12.3) fl Neutrophils % (Manual) 62 H (40-60) % Band Neutrophils % 0 (0-10) % Lymphocytes % (Manual) 29 (20-40) % Atypical Lymphs % 0 % Monocytes % (Manual) 5 (2-10) % Eosinophils % (Manual) 3 (0.7-5.8) % Basophils % (Manual) 1 (0.1-1.2) Platelet Estimate Adequate RBC Morph Comment Normal Sodium 142 (136-145) mEq/L Potassium 4.0 (3.5-5.1) mEq/L Chloride 105 (98-107) mEq/L Carbon Dioxide 27 (21-32) mEq/L Anion Gap 14.0 (5-15) BUN 11 (7-18) mg/dL Creatinine 0.9 (0.55-1.02) mg/dL Est Cr Clr Drug Dosing 87.16 mL/min Estimated GFR (MDRD) > 60 (>60) mL/min BUN/Creatinine Ratio 12.2 L (14-18) Glucose 97 (74-106) mg/dL Calcium 9.7 (8.5-10.1) mg/dL Total Bilirubin 0.3 (0.2-1.0) mg/dL AST 23 (15-37) U/L ALT 18 (14-59) U/L Alkaline Phosphatase 68 (46-116) U/L Total Protein 8.7 H (6.4-8.2) g/dl Albumin 3.7 (3.4-5.0) g/dl Globulin 5.0 gm/dL Albumin/Globulin Ratio 0.7 L (1-2) Lipase 243 (73-393) U/L Meds: Medications Discontinued Medications Generic Name Dose Route Start Last Admin Trade Name Freq PRN Reason Stop Dose Admin Diphenhydramine HCl 50 mg 12/29/17 09:51 12/29/17 10:17 Benadryl IVPUSH 12/29/17 09:52 50 mg ONETIME ONE Administration Sodium Chloride 1,000 mls @ 999 mls/hr 12/29/17 09:41 12/29/17 10:21 Normal Saline IV 12/29/17 10:41 999 mls/hr ONETIME ONE Administration Ketorolac Tromethamine 30 mg 12/29/17 09:51 12/29/17 10:19 Toradol IVPUSH 12/29/17 09:52 30 mg ONETIME STA Administration Ondansetron HCl 4 mg 12/29/17 11:01 12/29/17 11:05 Zofran IVPUSH 12/29/17 11:02 4 mg ONETIME ONE Administration - Re-Assessments/Exams Free Text/Narrative Re-Assessment/Exam: 12/29/17 11:21 Test results discussed with the patient and her . Today's workup, including a CBC, CMP, and lipase level are all entirely normal. Because of numerous prior CT scans of the abdomen and pelvis, the plan today was to not order an imaging study unless there were pertinent physical or laboratory findings. The patient agreed with this approach, even indicating that her Service Desk Agent instructed that she not receive any more imaging studies. As today's labs were completely normal and her physical examination was relatively benign, no imaging study was ordered. The patient's indicated that the patient needed something for pain relief, other than the Toradol that I had ordered earlier, however, I explained that under the circumstances, with a negative workup, and also the fact that the patient is under contract with a pain service, that I am not able to offer an opioid. I am recommending that the patient contact her pain service for further direction. The patient expressed understanding. Departure - Departure Time of Disposition: 11:24 Disposition: Home, Self-Care 01 Condition: Good Clinical Impression: Chronic abdominal pain - Discharge Information Instructions: Nausea and Vomiting, Adult Referrals: Faizan Gutierrez MD [Physician] - Forms: ED Department Discharge Additional Instructions: You were seen in the emergency room for recurrent left upper abdominal pain radiating through to your back, along with nausea and vomiting. Workup in the ER included a complete blood count, a compressive metabolic panel , and a lipase level. Your entire workup was normal. You do not have an elevated WBC count, you are not anemic, your electrolytes are normal. Your kidney function is normal, and your lipase level is normal, indicating that you do not have acute pancreatitis. You were given IV fluid, Toradol, Benadryl, and Zofran in the ER. Unfortunately, the ER does not manage chronic pain. For this, you will need to follow-up with your pain management service. If any other problems, please do not hesitate to return to the ER.
[2017-12-29 11:42] VITALS: BP 103/70
== END 2017-12-29 11:43 | disposition home or self-care (01) ==
LOC: JD.ED 08:52
DX: R10.12 Left upper quadrant pain (principal); G89.29 Other chronic pain; E03.9 Hypothyroidism, unspecified; Z88.6 Allergy status to analgesic agent; Z88.8 Allergy status to other drugs, medicaments and biological substances; Z79.899 Other long term (current) drug therapy; Z87.891 Personal history of nicotine dependence
CPT/HCPCS: 36415; 80053; 83690; 85025; 96361; 96374; 96375; 99284; J1200; J1885; J2405; J7040

== ENCOUNTER 2018-01-05 15:33 | Emergency (ER) | payer BC, MEDICARE ==
[2018-01-05 16:03] VITALS: BP 140/97
--- NOTE | 2018-01-05 16:17 | EDM.PDOC ---
ED HPI GENERAL MEDICAL PROBLEM - General Chief Complaint: Abdominal Pain Stated Complaint: CHRONIC PANCAREATITUS Time Seen by Provider: 01/05/18 16:17 - History of Present Illness INITIAL COMMENTS - FREE TEXT/NARRATIVE: 42-year-old female presents emergency room with recurrence of her up for abdominal pain. The patient is an uncertain history she never got her feeding tube placed. She was seen by pain specialist to started her on methadone twice daily and then according to the patient this was only supposed to last for a week and then she stopped it seems a little unusual for traditional methadone treatment and the patient does not have follow-up for several more weeks after the methadone was stopped. Another provider did extensive research and reviewed her medications and records from [facility] where she is diagnosed with abdominal pain chronic not pancreatitis. The patient has had a lot of problems with prescription medication recently went through an extensive review involving multiple pharmacies multiple providers in [place] in [place] and now it seems like she's extended eastward to [place]. Today's abdominal pain is very typical she denies fevers or chills the pain is upper abdominal left-sided Did discuss with the patient we can check labs on her because she has had multiple evaluations for this with negative CTs and the risk of recurrent CTs is a problem for her suggested she not get a CTA and was something really unusual shows up on her labs. Abdominal Pain Score (Numeric/FACES): 8 - Related Data Allergies Allergy/AdvReac Type Severity Reaction Status Date / Time buprenorphine [From Butrans] Allergy Itching Verified 01/05/18 16:01 metoclopramide HCl Allergy Itching Verified 01/05/18 16:01 [From Reglan] ketorolac [From Toradol] AdvReac Bleeding Verified 01/05/18 16:01 prochlorperazine AdvReac Vomiting Verified 01/05/18 16:01 [From Compazine] Home Meds: Home Meds Levothyroxine Sodium [Synthroid] 300 mcg PO DAILY 01/13/17 [History] Gabapentin [Neurontin] 1,200 mg PO TID PRN 04/25/17 [History] Ondansetron [Zofran ODT] 4 mg PO Q4H PRN #30 tab.dis 05/14/17 [Rx] Lansoprazole [Prevacid 24Hr] 75 mg PO DAILY 07/17/17 [History] Amylase/Lipase/Protease [Ayo WARE 12,000 Units] 24,000 - 76,000 units PO TIDMEALS 12/29/17 [History] Methadone 5 mg PO BID 12/29/17 [History] Naloxone HCl [Narcan] 4 mg CHELE ASDIRECTED PRN 12/29/17 [History] Zolpidem Tartrate [Ambien] 5 mg PO BEDTIME PRN 12/29/17 [History] Past Medical History - Past Health History Medical/Surgical History: Denies Medical/Surgical History HEENT History: Reports: Glaucoma Respiratory History: 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 (See Below) Other Respiratory History: cough RLQ Gastrointestinal History: Reports: Pancreatitis, Other (See Below) Other Gastrointestinal History: chronic pancreatitis, fatty pancreas 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 OB/BYN History: c section x3, tubes tied Musculoskeletal History: Reports: Arthritis Neurological History: 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 (See Below) (Pseudotumor cerebri) Other Neuro History: pseudotumor, shunt Psychiatric History: Reports: Addiction (Opioids), Anxiety, Depression Endocrine/Metabolic History: Reports: Hypothyroidism, Obesity/BMI 30+ Hematologic History: Reports: Anemia - Infectious Disease History Infectious Disease History: Reports: C-Difficile, MRSA Other Infectious Disease History: in 2006 - Past Surgical History Head Surgeries/Procedures: Reports: 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), Other (See Below) (Benign pineal gland tumor excised 2012) HEENT Surgical History: Reports: Oral Surgery (Isabela teeth extraction) GI Surgical History: Reports: Appendectomy, Bariatric Procedure (Laparoscopic gastric sleeve 02/12/2016), Cholecystectomy (06/04/2015), EGD, ERCP Female Surgical History: Reports: Section (x 3), Tubal Ligation Social & Family History - Family History Family Medical History: Noncontributory Cardiac: Reports: Bypass, Hypertension, [place] Respiratory: Reports: Asthma Oncologic: Reports: Colon - Tobacco Use Smoking Status *Q: Former Smoker Packs/Tins Daily: 1 Used Tobacco, but Quit: Yes Month Tobacco Last Used: 23 years Second Hand Smoke Exposure: No - Caffeine Use Caffeine Use: Reports: Coffee Other Caffeine Use: rarely - Alcohol Use Days Per Week of Alcohol Use: 0 - Recreational Drug Use Recreational Drug Use: Yes Drug Use in Last 12 Months: Yes Recreational Drug Type: Reports: Dilaudid, Other (see below) (Opioids) - Living Situation & Occupation Living situation: Reports: , with Spouse Occupation: Unemployed ED ROS GENERAL - Review of Systems Review Of Systems: See Below Constitutional: Reports: No Symptoms. Denies: Fever, Chills Respiratory: Reports: No Symptoms, Cough GI/Abdominal: Reports: Abdominal Pain. Denies: Constipation, Diarrhea, Nausea, Vomiting : Reports: No Symptoms ED EXAM, GI/ABD - Physical Exam Exam: See Below Exam Limited By: No Limitations General Appearance: Alert, No Apparent Distress Head: Atraumatic, Normocephalic Neck: Normal Inspection, Supple, Non-Tender, Full Range of Motion Respiratory/Chest: No Respiratory Distress, Lungs Clear, Normal Breath Sounds Cardiovascular: Regular Rate, Rhythm, No Edema, No Murmur GI/Abdominal Exam: Normal Bowel Sounds, Soft, Other (Vague upper abdominal discomfort no rigidity rebound or guarding noted) Back Exam: Normal Inspection. No: CVA Tenderness (L), CVA Tenderness (R) Extremities: Normal Inspection, No Pedal Edema Neurological: Alert, Oriented, Normal Cognition Course - Vital Signs Last Recorded V/S: Last Vital Signs Temp 37.3 C 01/05/18 16:01 Pulse 80 01/05/18 16:01 Resp 18 01/05/18 16:01 BP 140/97 H 01/05/18 16:01 Pulse Ox 99 01/05/18 16:01 - Orders/Labs/Meds Labs: Laboratory Tests 01/05/18 01/05/18 Range/Units 17:36 17:36 WBC 7.08 (3.98-10.04) K/mm3 RBC 3.95 L (3.98-5.22) M/mm3 Hgb 11.7 (11.2-15.7) gm/L Hct 35.1 (34.1-44.9) % MCV 88.9 (79.4-94.8) fl MCH 29.6 (25.6-32.2) pg MCHC 33.3 (32.2-35.5) g/dl RDW Std Deviation 41.3 (36.4-46.3) fL Plt Count 212 (182-369) K/mm3 MPV 11.0 (9.4-12.3) fl Neutrophils % (Manual) 55 (40-60) % Band Neutrophils % 0 (0-10) % Lymphocytes % (Manual) 42 H (20-40) % Atypical Lymphs % 0 % Monocytes % (Manual) 2 (2-10) % Eosinophils % (Manual) 1 (0.7-5.8) % Basophils % (Manual) 0 L (0.1-1.2) Platelet Estimate Adequate Plt Morphology Comment Normal Hypochromasia 1+ slight RBC Morph Comment Not Reportable Sodium 143 (136-145) mEq/L Potassium 3.2 L (3.5-5.1) mEq/L Chloride 104 (98-107) mEq/L Carbon Dioxide 24 (21-32) mEq/L Anion Gap 18.2 H (5-15) BUN 9 (7-18) mg/dL Creatinine 0.7 (0.55-1.02) mg/dL Est Cr Clr Drug Dosing 112.06 mL/min Estimated GFR (MDRD) > 60 (>60) mL/min BUN/Creatinine Ratio 12.9 L (14-18) Glucose 91 (74-106) mg/dL Calcium 9.5 (8.5-10.1) mg/dL Total Bilirubin 0.4 (0.2-1.0) mg/dL AST 23 (15-37) U/L ALT 21 (14-59) U/L Alkaline Phosphatase 56 (46-116) U/L Total Protein 8.1 (6.4-8.2) g/dl Albumin 3.7 (3.4-5.0) g/dl Globulin 4.4 gm/dL Albumin/Globulin Ratio 0.8 L (1-2) Lipase 378 (73-393) U/L Meds: Medications Discontinued Medications Generic Name Dose Route Start Last Admin Trade Name Dominic PRN Reason Stop Dose Admin Ketorolac Tromethamine 30 mg 01/05/18 17:26 01/05/18 17:39 Toradol IM 01/05/18 17:27 30 mg ONETIME ONE Administration - Re-Assessments/Exams Free Text/Narrative Re-Assessment/Exam: 01/05/18 19:52 After initial evaluation and exam I offered patient Toradol she was excepting to this however she doesn't declined it as she's had problems with in the past however has recently tolerated multiple times in the emergency room was not caregiver opioids she then left AGAINST MEDICAL ADVICE when she wasn't given get opioids. Labs obtained are unremarkable. Departure - Departure Time of Disposition: 18:10 Disposition: Against Medical Advice 07 Clinical Impression: Chronic abdominal pain - Discharge Information Referrals: Rik Walls PA-C [Primary Care Provider] - Forms: ED Department Discharge
[2018-01-05] MEDS ORDERED: Ketorolac 30 MG/ML SDV IM ONE (17:26)
== END 2018-01-05 18:10 | disposition left against medical advice (07) ==
LOC: JD.ED 15:33
DX: R10.9 Unspecified abdominal pain (principal); G89.29 Other chronic pain; Z87.891 Personal history of nicotine dependence; F32.9 Major depressive disorder, single episode, unspecified; E03.9 Hypothyroidism, unspecified; Z79.899 Other long term (current) drug therapy; Z88.5 Allergy status to narcotic agent; Z88.8 Allergy status to other drugs, medicaments and biological substances
CPT/HCPCS: 36415; 80053; 83690; 85025; 96372; 99284; J1885; 99283

== ENCOUNTER 2018-01-08 10:31 | Emergency (ER) | payer BC, MEDICARE ==
[2018-01-08 10:57] VITALS: BP 138/99
[2018-01-08] MEDS ORDERED: Promethazine 25 MG/ML SDV IM ONE (11:54)
[2018-01-08] MEDS ORDERED: diphenhydrAMINE 50 MG/ML SDV IM ONE (11:54)
--- NOTE | 2018-01-08 11:57 | EDM.PDOC ---
ED HPI GENERAL MEDICAL PROBLEM - General Chief Complaint: Abdominal Pain Stated Complaint: PANCREATITIS Time Seen by Provider: 01/08/18 11:45 Source of Information: Reports: Patient History Limitations: Reports: No Limitations - History of Present Illness INITIAL COMMENTS - FREE TEXT/NARRATIVE: Patient is a 42-year-old female presents ED complaining of epigastric and left upper quadrant abdominal pain that radiates into her back consistent with previous episodes of pancreatitis flareup. Patient has chronic pancreatitis. She 's been under the care of a GI and also pain specialist at the [facility]. She has an appointment scheduled for January to be seen by the pain specialist. States she ate something 2 days ago that cause aggravation. Yesterday everything was doing okay up until today. Pain is mild to moderate intensity. Patient has nausea. Denies any chest pain, shortness of breath, diarrhea, blood in her stool, pain with urination, fever, chills, dizziness, or any additional complaints. Patient is on methadone from the pain specialist. Per she was shorted 28 tabs. states he takes her medications with him to work and also locks them up to ensure only appropriate amounts are given. Patient denies taking any other narcotics. Patient states with the pain comes on usually goes away after not eating. Today the pain just little worse than other days. Left Upper Abdominal Pain Score (Numeric/FACES): 8 - Related Data Allergies Allergy/AdvReac Type Severity Reaction Status Date / Time buprenorphine [From Butrans] Allergy Itching Verified 01/08/18 10:48 metoclopramide HCl Allergy Itching Verified 01/08/18 10:48 [From Reglan] ketorolac [From Toradol] AdvReac Bleeding Verified 01/08/18 10:48 prochlorperazine AdvReac Vomiting Verified 01/08/18 10:48 [From Compazine] Home Meds: Home Meds Levothyroxine Sodium [Synthroid] 300 mcg PO DAILY 01/13/17 [History] Gabapentin [Neurontin] 1,200 mg PO TID PRN 04/25/17 [History] Ondansetron [Zofran ODT] 4 mg PO Q4H PRN #30 tab.dis 05/14/17 [Rx] Lansoprazole [Prevacid 24Hr] 75 mg PO DAILY 07/17/17 [History] Amylase/Lipase/Protease [Creon DR 12,000 Units] 24,000 - 76,000 units PO TIDMEALS 12/29/17 [History] Methadone 5 mg PO BID 12/29/17 [History] Naloxone HCl [Narcan] 4 mg CHELE ASDIRECTED PRN 12/29/17 [History] Acetaminophen [Tylenol] 1,300 mg PO Q4H PRN 01/08/18 [History] Past Medical History - Past Health History Medical/Surgical History: Denies Medical/Surgical History HEENT History: Reports: Glaucoma Respiratory History: 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 (See Below) Other Respiratory History: cough RLQ Gastrointestinal History: Reports: Pancreatitis, Other (See Below) Other Gastrointestinal History: chronic pancreatitis, fatty pancreas Genitourinary History: Reports: UTI, 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 OB/BYN History: c section x3, tubes tied Musculoskeletal History: Reports: Arthritis Neurological History: 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 (See Below) Other Neuro History: pseudotumor, shunt Psychiatric History: Reports: Addiction, Anxiety, Depression Endocrine/Metabolic History: Reports: Hypothyroidism, Obesity/BMI 30+ Hematologic History: Reports: Anemia - Infectious Disease History Infectious Disease History: Reports: C-Difficile, MRSA Other Infectious Disease History: in 2006 - Past Surgical History Head Surgeries/Procedures: Reports: Shunt, Other (See Below) HEENT Surgical History: Reports: Oral Surgery GI Surgical History: Reports: Appendectomy, Bariatric Procedure, Cholecystectomy , EGD, ERCP Female Surgical History: Reports: Section, Tubal Ligation Social & Family History - Family History Family Medical History: Noncontributory Cardiac: Reports: Bypass, Hypertension, [place] Respiratory: Reports: Asthma Oncologic: Reports: Colon - Tobacco Use Smoking Status *Q: Never Smoker Packs/Tins Daily: 1 Used Tobacco, but Quit: Yes Month Tobacco Last Used: 23 years Second Hand Smoke Exposure: No - Caffeine Use Caffeine Use: Reports: Coffee Other Caffeine Use: rarely - Alcohol Use Days Per Week of Alcohol Use: 0 - Recreational Drug Use Recreational Drug Use: No Drug Use in Last 12 Months: Yes Recreational Drug Type: Reports: Dilaudid, Other (see below) (Opioids) - Living Situation & Occupation Living situation: Reports: , with Spouse Occupation: Unemployed ED ROS GENERAL - Review of Systems Review Of Systems: ROS reveals no pertinent complaints other than HPI. ED EXAM, GI/ABD - Physical Exam Exam: See Below Exam Limited By: No Limitations General Appearance: Alert, WD/WN, No Apparent Distress Ears: Hearing Grossly Normal Nose: Normal Inspection Throat/Mouth: Normal Inspection, Normal Oropharynx, Normal Voice, No Airway Compromise Neck: Normal Inspection, Supple Respiratory/Chest: No Respiratory Distress, Lungs Clear, Normal Breath Sounds, No Accessory Muscle Use Cardiovascular: Normal Peripheral Pulses, Regular Rate, Rhythm GI/Abdominal Exam: Normal Bowel Sounds, Soft, No Organomegaly, No Distention, Tender (Epigastric and left upper quadrant. Consistent with previous episodes.) Back Exam: Normal Inspection. No: CVA Tenderness (L), CVA Tenderness (R) Extremities: Normal Inspection, Normal Range of Motion, Non-Tender, No Pedal Edema, Normal Capillary Refill Neurological: Alert, Oriented, CN II-XII Intact, Normal Cognition, No Motor/ Sensory Deficits Psychiatric: Normal Affect, Normal Mood Skin Exam: Warm, Dry, Intact, Normal Color Course - Vital Signs Last Recorded V/S: Last Vital Signs Temp 97.2 F 01/08/18 10:45 Pulse 71 01/08/18 10:45 Resp 18 01/08/18 10:45 BP 138/99 H 01/08/18 10:45 Pulse Ox 100 01/08/18 10:45 - Orders/Labs/Meds Labs: Laboratory Tests 01/08/18 01/08/18 Range/Units 11:40 11:40 WBC 5.77 (3.98-10.04) K/mm3 RBC 3.94 L (3.98-5.22) M/mm3 Hgb 11.5 (11.2-15.7) gm/L Hct 35.3 (34.1-44.9) % MCV 89.6 (79.4-94.8) fl MCH 29.2 (25.6-32.2) pg MCHC 32.6 (32.2-35.5) g/dl RDW Std Deviation 42.1 (36.4-46.3) fL Plt Count 192 (182-369) K/mm3 MPV 11.0 (9.4-12.3) fl Neutrophils % (Manual) 51 (40-60) % Band Neutrophils % 0 (0-10) % Lymphocytes % (Manual) 48 H (20-40) % Atypical Lymphs % 0 % Monocytes % (Manual) 1 L (2-10) % Eosinophils % (Manual) 0 L (0.7-5.8) % Basophils % (Manual) 0 L (0.1-1.2) Platelet Estimate Adequate RBC Morph Comment Normal Sodium 143 (136-145) mEq/L Potassium 3.4 L (3.5-5.1) mEq/L Chloride 105 (98-107) mEq/L Carbon Dioxide 24 (21-32) mEq/L Anion Gap 17.4 H (5-15) BUN 8 (7-18) mg/dL Creatinine 0.8 (0.55-1.02) mg/dL Est Cr Clr Drug Dosing 98.05 mL/min Estimated GFR (MDRD) > 60 (>60) mL/min BUN/Creatinine Ratio 10.0 L (14-18) Glucose 95 (74-106) mg/dL Calcium 9.5 (8.5-10.1) mg/dL Total Bilirubin 0.3 (0.2-1.0) mg/dL AST 21 (15-37) U/L ALT 22 (14-59) U/L Alkaline Phosphatase 55 (46-116) U/L Total Protein 7.9 (6.4-8.2) g/dl Albumin 3.7 (3.4-5.0) g/dl Globulin 4.2 gm/dL Albumin/Globulin Ratio 0.9 L (1-2) Lipase 402 H (73-393) U/L Meds: Medications Discontinued Medications Generic Name Dose Route Start Last Admin Trade Name Freq PRN Reason Stop Dose Admin Hydrocodone Bitart/Acetaminophen 1 tab 01/08/18 13:07 01/08/18 13:30 [place] 325-5 Mg PO 01/08/18 13:08 1 tab ONETIME ONE Administration Diphenhydramine HCl 25 mg 01/08/18 11:54 01/08/18 12:04 Benadryl IM 01/08/18 11:55 25 mg ONETIME ONE Administration Promethazine HCl 25 mg 01/08/18 11:54 01/08/18 12:07 Phenergan IM 01/08/18 11:55 25 mg ONETIME ONE Administration - Re-Assessments/Exams Free Text/Narrative Re-Assessment/Exam: CBC, chemistry panel, lipase, and UA were ordered prior to seeing the patient. I ordered a two-view of the abdomen along with Benadryl 25 mg IM and also 25 mg of Phenergan. Patient states last time she was here she got these 2 medications with resolution of symptoms. She is not requesting any narcotics at this point. 01/08/18 13:09 Labs reviewed: White blood cell count 5.77, hemoglobin 11.5, platelet count 192, sodium 143, potassium 3.4, AG 17.4, creatinine 0.8, lipase is mildly elevated at 402 which is stable per patient. 1308 per nursing staff patient's pain in the abdomen is gone. She still has some mild back pain. Ordered [place] one tab by mouth. No additional pain medications will be prescribed. Will discharge patient home with instructions as documented. Departure - Departure Time of Disposition: 13:10 Disposition: Home, Self-Care 01 Condition: Good Clinical Impression: Abdominal pain, chronic, epigastric Chronic pancreatitis Qualifiers: Pancreatitis type: other Qualified Code(s): K86.1 - Other chronic pancreatitis - Discharge Information Instructions: Chronic Pancreatitis, Abdominal Pain, Adult, [id number], Pain Medicine Instructions, [id number] Referrals: Rik Walls PA-C [Primary Care Provider] - Forms: ED Department Discharge Additional Instructions: As discussed lipase was 402 which is consistent with her baseline. Otherwise all her labs were essentially normal. UA was not provided. Treatment will be clear liquid diet for the next 48 hrs hours. Continue taking your home medications as prescribed. Contact your primary GI doctor for further evaluation and treatment plan. See her PCP for follow-up visit this coming week. Return to ED if you develop any new or worsening symptoms. No driving today since receiving a sedative medication while in the ED. If Benadryl works with her discomfort and nausea he may take this [id number] 50 mg by mouth as needed following manufacturers instructions for dosage and frequency.
[2018-01-08] MEDS ORDERED: Acetaminophen/HYDROcodone 325-5 MG Tab PO ONE (13:07)
--- NOTE | 2018-01-08 13:18 | CR ---
Abdomen: Supine and upright views of the abdomen were obtained. Comparison: Prior abdominal x-ray of 12/01/17. Surgical clip is noted from prior cholecystectomy. Surgical anastomotic sutures are noted within the left upper abdomen. Stable catheter is seen entering from the left abdomen. Bowel gas pattern is normal. No free air is seen. Mild scoliosis and degenerative change is incidentally noted within the spine. Impression: 1. Incidental findings. Nothing acute is appreciated. Diagnostic code #2
== END 2018-01-08 13:34 | disposition home or self-care (01) ==
LOC: JD.ED 10:31
DX: K86.1 Other chronic pancreatitis (principal); F32.9 Major depressive disorder, single episode, unspecified; E03.9 Hypothyroidism, unspecified; Z87.891 Personal history of nicotine dependence; Z79.899 Other long term (current) drug therapy; Z88.5 Allergy status to narcotic agent; Z88.6 Allergy status to analgesic agent; Z88.8 Allergy status to other drugs, medicaments and biological substances
CPT/HCPCS: 36415; 74019; 80053; 83690; 85025; 96372; 99284; A9270; J1200; J2550

== ENCOUNTER 2018-02-08 09:29 | Emergency (ER) | payer BC, MEDICARE ==
[2018-02-08 09:39] VITALS: BP 148/86
[2018-02-08] MEDS ORDERED: Ondansetron 4 MG Tab.DIS PO ONE (10:06)
[2018-02-08] MEDS ORDERED: Ketorolac 30 MG/ML SDV IM ONE (10:06)
[2018-02-08] MEDS ORDERED: Promethazine 25 MG/ML SDV IM ONE (10:07)
[2018-02-08] MEDS ORDERED: diphenhydrAMINE 50 MG Cap PO ONE (10:41)
--- NOTE | 2018-02-08 11:14 | EDM.PDOC ---
ED HPI GENERAL MEDICAL PROBLEM - General Chief Complaint: Abdominal Pain Stated Complaint: PANCREATITIS Time Seen by Provider: 02/08/18 09:46 Source of Information: Reports: Patient, RN Notes Reviewed - History of Present Illness INITIAL COMMENTS - FREE TEXT/NARRATIVE: 44-year-old female comes in with abdominal pain. She does have history of what is stated to be chronic pancreatitis. This is been going on for at least several years. She has been seeing a specialist at [facility] and did have a visit there about 7 weeks ago. She's had multiple CTs over the past year to at our facility as well as numerous lab checks which have not shown anything acute for a long time that I'm aware of. However she does and has had at times quite frequent flares of more severe upper abdominal pain but also does have history of chronic pain syndrome recently started on methadone, currently on methadone 5 mg twice a day. Over the past month on methadone she has "done better" with less severe discomfort and now over a month since her last visit here to the ED. Her upper and left upper abdominal pain became more severe over the past 2 days and she has had some nausea and vomiting over the past 24 hours. Left Upper Abdomen Pain Score (Numeric/FACES): 8 - Related Data Allergies Allergy/AdvReac Type Severity Reaction Status Date / Time buprenorphine [From Butrans] Allergy Itching Verified 02/08/18 09:39 metoclopramide HCl Allergy Itching Verified 02/08/18 09:39 [From Reglan] ketorolac [From Toradol] AdvReac Bleeding Verified 02/08/18 09:39 prochlorperazine AdvReac Vomiting Verified 02/08/18 09:39 [From Compazine] Home Meds: Home Meds Levothyroxine Sodium [Synthroid] 300 mcg PO DAILY 01/13/17 [History] Gabapentin [Neurontin] 1,200 mg PO TID PRN 04/25/17 [History] Ondansetron [Zofran ODT] 4 mg PO Q4H PRN #30 tab.dis 05/14/17 [Rx] Amylase/Lipase/Protease [Ayo WARE 12,000 Units] 24,000 - 76,000 units PO TIDMEALS 12/29/17 [History] Methadone 5 mg PO BID 12/29/17 [History] Naloxone HCl [Narcan] 4 mg CHELE ASDIRECTED PRN 12/29/17 [History] Acetaminophen [Tylenol] 1,300 mg PO Q4H PRN 01/08/18 [History] Ranitidine HCl 75 mg PO DAILY 02/08/18 [History] Past Medical History - Past Health History Medical/Surgical History: Denies Medical/Surgical History HEENT History: Reports: Glaucoma Respiratory History: 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 (See Below) Other Respiratory History: cough RLQ Gastrointestinal History: Reports: Pancreatitis, Other (See Below) Other Gastrointestinal History: chronic pancreatitis, fatty pancreas Genitourinary History: Reports: UTI, Recurrent 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 OB/BYN History: c section x3, tubes tied Musculoskeletal History: Reports: Arthritis Neurological History: 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 (See Below) Other Neuro History: pseudotumor, shunt Psychiatric History: Reports: Addiction, Anxiety, Depression Endocrine/Metabolic History: Reports: Hypothyroidism, Obesity/BMI 30+ Hematologic History: Reports: Anemia - Infectious Disease History Infectious Disease History: Reports: C-Difficile, MRSA Other Infectious Disease History: in 2006 - Past Surgical History Head Surgeries/Procedures: Reports: Shunt HEENT Surgical History: Reports: Oral Surgery GI Surgical History: Reports: Appendectomy, Bariatric Procedure, Cholecystectomy , EGD, ERCP Female Surgical History: Reports: Section, Tubal Ligation Social & Family History - Family History Family Medical History: Noncontributory Cardiac: Reports: Bypass, Hypertension, [place] Respiratory: Reports: Asthma Oncologic: Reports: Colon - Tobacco Use Smoking Status *Q: Never Smoker Packs/Tins Daily: 1 Used Tobacco, but Quit: Yes Month/Year Tobacco Last Used: 23 years Second Hand Smoke Exposure: No - Caffeine Use Caffeine Use: Reports: Coffee Other Caffeine Use: rarely - Alcohol Use Days Per Week of Alcohol Use: 0 - Recreational Drug Use Recreational Drug Use: No Drug Use in Last 12 Months: Yes Recreational Drug Type: Reports: Dilaudid, Other (see below) (Opioids) - Living Situation & Occupation Living situation: Reports: , with Spouse Occupation: Unemployed ED ROS GENERAL - Review of Systems Review Of Systems: See Below Constitutional: Denies: Fever, Chills HEENT: Denies: Throat Pain Respiratory: Denies: Shortness of Breath, Pleuritic Chest Pain Cardiovascular: Denies: Chest Pain GI/Abdominal: Reports: Abdominal Pain, Nausea, Vomiting Musculoskeletal: Reports: Back Pain Skin: Reports: No Symptoms Neurological: Reports: No Symptoms ED EXAM, GI/ABD - Physical Exam Exam: See Below General Appearance: Alert, Moderate Distress Eyes: Bilateral: Normal Appearance Throat/Mouth: Normal Inspection Head: Atraumatic Neck: Supple Respiratory/Chest: No Respiratory Distress, Lungs Clear, Normal Breath Sounds Cardiovascular: Regular Rate, Rhythm GI/Abdominal Exam: Tender Back Exam: No: Decreased Range of Motion (Upper mid abdomen and left upper quadrant) Extremities: Normal Inspection, Normal Range of Motion Neurological: Alert, Oriented, No Motor/Sensory Deficits Skin Exam: Warm, Normal Color Course - Vital Signs Last Recorded V/S: Last Vital Signs Temp 97.4 F 02/08/18 09:36 Pulse 97 02/08/18 09:36 Resp 16 02/08/18 09:36 BP 148/86 H 02/08/18 09:36 Pulse Ox 99 02/08/18 09:36 - Orders/Labs/Meds Labs: Laboratory Tests 02/08/18 02/08/18 Range/Units 11:38 11:38 WBC 5.43 (3.98-10.04) K/mm3 RBC 3.97 L (3.98-5.22) M/mm3 Hgb 11.4 (11.2-15.7) gm/L Hct 35.1 (34.1-44.9) % MCV 88.4 (79.4-94.8) fl MCH 28.7 (25.6-32.2) pg MCHC 32.5 (32.2-35.5) g/dl RDW Std Deviation 40.3 (36.4-46.3) fL Plt Count 232 (182-369) K/mm3 MPV 10.5 (9.4-12.3) fl Neut % (Auto) 53.9 (34.0-71.1) % Lymph % (Auto) 31.9 (19.3-51.7) % [place] % (Auto) 12.7 H (4.7-12.5) % Eos % (Auto) 1.1 (0.7-5.8) Baso % (Auto) 0.2 (0.1-1.2) % Neut # (Auto) 2.93 (1.56-6.13) K/mm3 Lymph # (Auto) 1.73 (1.18-3.74) K/mm3 [place] # (Auto) 0.69 H (0.24-0.36) K/mm3 Eos # (Auto) 0.06 (0.04-0.36) K/mm3 Baso # (Auto) 0.01 (0.01-0.08) K/mm3 Lipase 247 (73-393) U/L Meds: Medications Discontinued Medications Generic Name Dose Route Start Last Admin Trade Name Dominic PRN Reason Stop Dose Admin Diphenhydramine HCl 50 mg 02/08/18 10:41 02/08/18 10:48 Benadryl PO 02/08/18 10:42 50 mg ONETIME ONE Administration Hydromorphone HCl 1 mg 02/08/18 11:27 02/08/18 11:36 Dilaudid IM 02/08/18 11:28 1 mg ONETIME ONE Administration Ketorolac Tromethamine 30 mg 02/08/18 10:06 02/08/18 10:16 Toradol IM 02/08/18 10:07 30 mg ONETIME ONE Administration Lorazepam 1 mg 02/08/18 11:25 02/08/18 11:36 Ativan PO 02/08/18 11:26 1 mg ONETIME ONE Administration Ondansetron HCl 4 mg 02/08/18 10:06 02/08/18 10:15 Zofran Odt PO 02/08/18 10:07 4 mg ONETIME ONE Administration Promethazine HCl 25 mg 02/08/18 10:07 02/08/18 10:15 Phenergan IM 02/08/18 10:08 25 mg ONETIME ONE Administration - Re-Assessments/Exams Free Text/Narrative Re-Assessment/Exam: 02/08/18 13:00. Patient initially treated with Toradol IM, Zofran 4 mg ODT, Phenergan 25 mg IM, Benadryl 50 mg by mouth. Went back to check on her about an hour after these meds have been given expected her to be feeling better, ready for discharge. States she was tearful stating pain "had gotten worse and now shooting severely into her back. Therefore white blood count, lipase ordered.She states she has not taken her methadone since yesterday morning, over 30 hours ago. Have therefore reluctantly ordered dilaudid 1 mg IM, will also give ativan 1 mg PO. 02/08/18 13:02 when I went to check on her a short time ago pain is almost gone , feeling much better, discharge instructions as documented Departure - Departure Time of Disposition: 12:29 Disposition: Home, Self-Care 01 Condition: Fair Clinical Impression: Vomiting Abdominal pain Qualifiers: Abdominal location: upper abdomen, unspecified Qualified Code(s): R10.10 - Upper abdominal pain, unspecified - Discharge Information Instructions: Abdominal Pain, Adult, [id number] Referrals: Rik Walls PA-C [Primary Care Provider] - Forms: ED Department Discharge Additional Instructions: Clear liquids and very careful bland diet as tolerated, continue current medications as prescribed. Follow-up clinic if not much better within 1-2 days as expected, return to ED as needed.
[2018-02-08] MEDS ORDERED: LORazepam 1 MG Tab PO ONE (11:25)
[2018-02-08] MEDS ORDERED: HYDROmorphone 0.5 MG/0.5 ML SYRINGE IM ONE (11:27)
== END 2018-02-08 12:35 | disposition home or self-care (01) ==
LOC: JD.ED 09:29
DX: R10.12 Left upper quadrant pain (principal); R11.10 Vomiting, unspecified; K86.1 Other chronic pancreatitis; E03.9 Hypothyroidism, unspecified; Z88.8 Allergy status to other drugs, medicaments and biological substances; Z88.6 Allergy status to analgesic agent; Z79.899 Other long term (current) drug therapy; Z90.49 Acquired absence of other specified parts of digestive tract; Z87.891 Personal history of nicotine dependence
CPT/HCPCS: 36415; 83690; 85025; 96372; 99284; A9270; J1170; J1885; J2550; 99283

== ENCOUNTER 2018-02-12 11:22 | Emergency (ER) | payer BC, MEDICARE ==
[2018-02-12 11:42] VITALS: BP 138/87
== END 2018-02-12 11:46 ==
LOC: JD.ED 11:22
DX: Z53.21 Procedure and treatment not carried out due to patient leaving prior to being seen by health care provider (principal)
CPT/HCPCS: 99284

== ENCOUNTER 2018-02-13 11:03 | Emergency (ER) | payer BC, MEDICARE ==
[2018-02-13 11:13] VITALS: BP 139/64
[2018-02-13] MEDS ORDERED: Alum Hydrox/Mag Hydrox/Simeth 30 ML, Lidocaine 2% 15 ML PO ONE ×2 (12:23)
--- NOTE | 2018-02-13 12:30 | EDM.PDOC ---
ED HPI GENERAL MEDICAL PROBLEM - General Chief Complaint: Abdominal Pain Stated Complaint: ABDOMINAL PAIN Time Seen by Provider: 02/13/18 11:45 Source of Information: Reports: Patient History Limitations: Reports: No Limitations - History of Present Illness INITIAL COMMENTS - FREE TEXT/NARRATIVE: Patient is a 42-year-old female who presents to the ED complaining of upper abdominal discomfort epigastric region that radiates into her back. States is similar to previous episodes of chronic pancreatitis flareup. This came on yesterday. She took an oxycodone 2 tabs 5-325 and methadone last night. She did present to the ED yesterday for evaluation but left prior to being seen. Patient has had a few episodes of nausea/ vomiting and diarrhea. States her stool looks like a fatty creamy stool. There is no blood present. All symptoms are similar to previous episodes. She does take methadone and utilizes oxycodone for breakthrough pain. She ran out of the oxycodone and does not have another prescription for the next week. She denies any chest pain, shortness of breath, dizziness, pain with urination, or any additional complaints. 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 (see below) Other Treatments RPG DEVELOPER: zofran, methadone at 0600 Left Upper Abdomen Pain Score (Numeric/FACES): 8 - Related Data Allergies Allergy/AdvReac Type Severity Reaction Status Date / Time buprenorphine [From Butrans] Allergy Itching Verified 02/13/18 11:41 metoclopramide HCl Allergy Itching Verified 02/13/18 11:41 [From Reglan] ketorolac [From Toradol] AdvReac Bleeding Verified 02/13/18 11:41 prochlorperazine AdvReac Vomiting Verified 02/13/18 11:41 [From Compazine] Home Meds: Home Meds Levothyroxine Sodium [Synthroid] 300 mcg PO DAILY 01/13/17 [History] Gabapentin [Neurontin] 1,200 mg PO TID PRN 04/25/17 [History] Ondansetron [Zofran ODT] 4 mg PO Q4H PRN #30 tab.dis 05/14/17 [Rx] Amylase/Lipase/Protease [Creon DR 12,000 Units] 24,000 - 76,000 units PO TIDMEALS 12/29/17 [History] Methadone 5 mg PO BID 12/29/17 [History] Naloxone HCl [Narcan] 4 mg CHELE ASDIRECTED PRN 12/29/17 [History] Acetaminophen [Tylenol] 1,300 mg PO Q4H PRN 01/08/18 [History] Ranitidine HCl 75 mg PO DAILY 02/08/18 [History] Past Medical History - Past Health History Medical/Surgical History: Denies Medical/Surgical History HEENT History: Reports: Glaucoma Respiratory History: 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 (See Below) Other Respiratory History: cough RLQ Gastrointestinal History: Reports: Pancreatitis, Other (See Below) Other Gastrointestinal History: chronic pancreatitis, fatty pancreas Genitourinary History: Reports: UTI, Recurrent [employer] History: 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 OB/BYN History: c section x3, tubes tied Musculoskeletal History: Reports: Arthritis Neurological History: 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 (See Below) Other Neuro History: pseudotumor, shunt Psychiatric History: Reports: Addiction, Anxiety, Depression Endocrine/Metabolic History: Reports: Hypothyroidism, Obesity/BMI 30+ Hematologic History: Reports: Anemia - Infectious Disease History Infectious Disease History: Reports: C-Difficile, MRSA Other Infectious Disease History: in 2006 - Past Surgical History Head Surgeries/Procedures: Reports: Shunt HEENT Surgical History: Reports: Oral Surgery GI Surgical History: Reports: Appendectomy, Bariatric Procedure, Cholecystectomy , EGD, ERCP Female Surgical History: Reports: Section, Tubal Ligation Social & Family History - Family History Family Medical History: Noncontributory Cardiac: Reports: Bypass, Hypertension, [place] Respiratory: Reports: Asthma Oncologic: Reports: Colon - Tobacco Use Smoking Status *Q: Never Smoker Packs/Tins Daily: 1 Used Tobacco, but Quit: Yes Month/Year Tobacco Last Used: 23 years Second Hand Smoke Exposure: No - Caffeine Use Caffeine Use: Reports: Coffee Other Caffeine Use: rarely - Alcohol Use Days Per Week of Alcohol Use: 0 - Recreational Drug Use Recreational Drug Use: No Drug Use in Last 12 Months: Yes Recreational Drug Type: Reports: Dilaudid, Other (see below) (Opioids) - Living Situation & Occupation Living situation: Reports: , with Spouse Occupation: Unemployed ED ROS GENERAL - Review of Systems Review Of Systems: ROS reveals no pertinent complaints other than HPI. ED EXAM, GI/ABD - Physical Exam Exam: See Below Exam Limited By: No Limitations General Appearance: Alert, WD/WN, No Apparent Distress Ears: Hearing Grossly Normal Nose: Normal Inspection Throat/Mouth: Normal Voice, No Airway Compromise Head: Atraumatic, Normocephalic Neck: Normal Inspection, Supple Respiratory/Chest: No Respiratory Distress, Lungs Clear, Normal Breath Sounds, No Accessory Muscle Use, Chest Non-Tender Cardiovascular: Normal Peripheral Pulses, Regular Rate, Rhythm GI/Abdominal Exam: Normal Bowel Sounds, Soft, No Organomegaly, No Distention, Tender (epigastric region) Back Exam: Normal Inspection Extremities: Normal Inspection, Non-Tender, No Pedal Edema, Normal Capillary Refill Neurological: Alert, Oriented, CN II-XII Intact, Normal Cognition, No Motor/ Sensory Deficits Psychiatric: Normal Affect, Normal Mood Skin Exam: Warm, Dry, Intact, Normal Color Course - Vital Signs Last Recorded V/S: Last Vital Signs Temp 97.5 F 02/13/18 11:12 Pulse 100 02/13/18 11:12 Resp 20 02/13/18 11:12 BP 139/64 02/13/18 11:12 Pulse Ox 100 02/13/18 11:12 - Orders/Labs/Meds Orders: Active Orders 24 hr Category Date Time Status DRUG SCREEN, URINE [URCHEM] Stat Lab 02/13/18 12:25 Ordered Labs: Laboratory Tests 02/13/18 02/13/18 02/13/18 Range/Units 12:00 12:00 12:25 WBC 5.59 (3.98-10.04) K/mm3 RBC 3.74 L (3.98-5.22) M/mm3 Hgb 10.7 L (11.2-15.7) gm/L Hct 33.5 L (34.1-44.9) % MCV 89.6 (79.4-94.8) fl MCH 28.6 (25.6-32.2) pg MCHC 31.9 L (32.2-35.5) g/dl RDW Std Deviation 43.1 (36.4-46.3) fL Plt Count 209 (182-369) K/mm3 MPV 10.8 (9.4-12.3) fl Neutrophils % (Manual) 52 (40-60) % Band Neutrophils % 0 (0-10) % Lymphocytes % (Manual) 45 H (20-40) % Atypical Lymphs % 0 % Monocytes % (Manual) 3 (2-10) % Eosinophils % (Manual) 0 L (0.7-5.8) % Basophils % (Manual) 0 L (0.1-1.2) Platelet Estimate Adequate RBC Morph Comment Normal Sodium 145 (136-145) mEq/L Potassium 3.6 (3.5-5.1) mEq/L Chloride 107 (98-107) mEq/L Carbon Dioxide 27 (21-32) mEq/L Anion Gap 14.6 (5-15) BUN 7 (7-18) mg/dL Creatinine 0.7 (0.55-1.02) mg/dL Est Cr Clr Drug Dosing 112.06 mL/min Estimated GFR (MDRD) > 60 (>60) mL/min BUN/Creatinine Ratio 10.0 L (14-18) Glucose 96 (74-106) mg/dL Calcium 9.2 (8.5-10.1) mg/dL Total Bilirubin 0.2 (0.2-1.0) mg/dL AST 14 L (15-37) U/L ALT 11 L (14-59) U/L Alkaline Phosphatase 53 (46-116) U/L Total Protein 7.7 (6.4-8.2) g/dl Albumin 3.8 (3.4-5.0) g/dl Globulin 3.9 gm/dL Albumin/Globulin Ratio 1.0 (1-2) Lipase 383 (73-393) U/L Urine Color (Yellow) Urine Appearance (Clear) Urine pH (5.0-8.0) Ur Specific [place] (1.005-1.030) Urine Protein (Negative) Urine Glucose (UA) (Negative) Urine Ketones (Negative) Urine Occult Blood (Negative) Urine Nitrite (Negative) Urine Bilirubin (Negative) Urine Urobilinogen (0.2-1.0) Ur Leukocyte Esterase (Negative) Urine RBC (0-5) /hpf Urine WBC (0-5) /hpf Ur Epithelial Cells (0-5) /hpf Urine Bacteria (FEW) /hpf Urine Mucus (FEW) /hpf Urine Opiates Screen Negative (NEGATIVE) Ur Buprenorphine Scrn Negative (NEGATIVE) Ur Oxycodone Screen Negative (NEGATIVE) Urine Methadone Screen Presumptive positive H (NEGATIVE) Ur Propoxyphene Screen Negative (NEGATIVE) Ur Barbiturates Screen Negative (NEGATIVE) Ur Tricyclics Screen Presumptive positive H (NEGATIVE) Ur Phencyclidine Scrn Negative (NEGATIVE) Ur Amphetamine Screen Negative (NEGATIVE) U Methamphetamines Scrn Negative (NEGATIVE) U Benzodiazepines Scrn Presumptive positive H (NEGATIVE) U Cocaine Metab Screen Negative (NEGATIVE) U Marijuana (THC) Screen Negative (NEGATIVE) 02/13/18 Range/Units 12:25 WBC (3.98-10.04) K/mm3 RBC (3.98-5.22) M/mm3 Hgb (11.2-15.7) gm/L Hct (34.1-44.9) % MCV (79.4-94.8) fl MCH (25.6-32.2) pg MCHC (32.2-35.5) g/dl RDW Std Deviation (36.4-46.3) fL Plt Count (182-369) K/mm3 MPV (9.4-12.3) fl Neutrophils % (Manual) (40-60) % Band Neutrophils % (0-10) % Lymphocytes % (Manual) (20-40) % Atypical Lymphs % % Monocytes % (Manual) (2-10) % Eosinophils % (Manual) (0.7-5.8) % Basophils % (Manual) (0.1-1.2) Platelet Estimate RBC Morph Comment Sodium (136-145) mEq/L Potassium (3.5-5.1) mEq/L Chloride (98-107) mEq/L Carbon Dioxide (21-32) mEq/L Anion Gap (5-15) BUN (7-18) mg/dL Creatinine (0.55-1.02) mg/dL Est Cr Clr Drug Dosing mL/min Estimated GFR (MDRD) (>60) mL/min BUN/Creatinine Ratio (14-18) Glucose (74-106) mg/dL Calcium (8.5-10.1) mg/dL Total Bilirubin (0.2-1.0) mg/dL AST (15-37) U/L ALT (14-59) U/L Alkaline Phosphatase (46-116) U/L Total Protein (6.4-8.2) g/dl Albumin (3.4-5.0) g/dl Globulin gm/dL Albumin/Globulin Ratio (1-2) Lipase (73-393) U/L Urine Color Yellow (Yellow) Urine Appearance Clear (Clear) Urine pH 6.5 (5.0-8.0) Ur Specific [place] 1.020 (1.005-1.030) Urine Protein Negative (Negative) Urine Glucose (UA) Negative (Negative) Urine Ketones Negative (Negative) Urine Occult Blood 1+ H (Negative) Urine Nitrite Negative (Negative) Urine Bilirubin Negative (Negative) Urine Urobilinogen 2.0 H (0.2-1.0) Ur Leukocyte Esterase Negative (Negative) Urine RBC 0-5 (0-5) /hpf Urine WBC 0-5 (0-5) /hpf Ur Epithelial Cells 0-5 (0-5) /hpf Urine Bacteria Many H (FEW) /hpf Urine Mucus Not seen (FEW) /hpf Urine Opiates Screen (NEGATIVE) Ur Buprenorphine Scrn (NEGATIVE) Ur Oxycodone Screen (NEGATIVE) Urine Methadone Screen (NEGATIVE) Ur Propoxyphene Screen (NEGATIVE) Ur Barbiturates Screen (NEGATIVE) Ur Tricyclics Screen (NEGATIVE) Ur Phencyclidine Scrn (NEGATIVE) Ur Amphetamine Screen (NEGATIVE) U Methamphetamines Scrn (NEGATIVE) U Benzodiazepines Scrn (NEGATIVE) U Cocaine Metab Screen (NEGATIVE) U Marijuana (THC) Screen (NEGATIVE) Meds: Medications Discontinued Medications Generic Name Dose Route Start Last Admin Trade Name Freq PRN Reason Stop Dose Admin Al Hydroxide/Mg Hydroxide 30 0 ml 02/13/18 12:23 02/13/18 12:35 ml/ Lidocaine HCl 15 ml PO 02/13/18 12:24 45 ml ONETIME ONE Administration - Re-Assessments/Exams Free Text/Narrative Re-Assessment/Exam: Ordered a GI cocktail. Initial labs and studies will include CBC, chem 14, CRP, lipase, UA, and urine drug tox. Two-view flat and upright has been ordered as well. X-ray of the abdomen: No sick air in stool patterns. No findings concerning for obstruction. Final interpretation is pending. 02/13/18 12:[address] Sharp. Does not recommend treating chronic pain. Obtain the labs. if any concerning findings offer imaging. If she refuses tell her to followup with her pain specialists. Labs reviewed: He was going 10.7 stable, lipase 383 stable, UA with blood present. Urine drug tox positive for methadone, tricyclics, and benzodiazepines. Oxycodone negative. Discussed results of the labs with the patient. She is addaminat about pain therapy. Patient had admitted to taking oxycodone yesterday. This is not present within her urine drug screen. Question if patient is diverting. No narcotics will be administered. Discharge instructions as documented. 1341 Patient has left without discharge instructions. Departure - Departure Time of Disposition: 13:37 Disposition: Home, Self-Care 01 Condition: Good Clinical Impression: Abdominal pain, chronic, epigastric, Drug-seeking behavior - Discharge Information Referrals: Rik Walls PA-C [Primary Care Provider] - Forms: ED Department Discharge Additional Instructions: Continue to take all home medications as prescribed. Followup with PCP and specialists for continued pain therapy. Return to the E.D. for any new or worsening symptoms. - My Orders Last 24 Hours: My Active Orders 02/13/18 12:25 DRUG SCREEN, URINE [URCHEM] Stat - Assessment/Plan Last 24 Hours: My Active Orders 02/13/18 12:25 DRUG SCREEN, URINE [URCHEM] Stat
--- NOTE | 2018-02-13 18:34 | CR ---
Abdomen: Supine and upright views of the abdomen were obtained. Comparison: Prior abdominal x-ray of 01/08/18. Bowel gas pattern appears within normal limits. Stable catheter is seen within the left abdomen. Surgical anastomotic sutures are seen. Previous cholecystectomy is noted. No free air is seen. Slight degenerative change is scattered within the spine. Impression: 1. Incidental findings. No significant change is seen from prior abdominal x-ray. Diagnostic code #2
== END 2018-02-13 13:35 | disposition home or self-care (01) ==
LOC: JD.ED 11:03
DX: R10.13 Epigastric pain (principal); F41.9 Anxiety disorder, unspecified; F32.9 Major depressive disorder, single episode, unspecified; E03.9 Hypothyroidism, unspecified; E66.9 Obesity, unspecified; Z76.5 Malingerer [conscious simulation]; Z88.8 Allergy status to other drugs, medicaments and biological substances; Z79.899 Other long term (current) drug therapy; Z87.440 Personal history of urinary (tract) infections; Z86.14 Personal history of Methicillin resistant Staphylococcus aureus infection; Z90.49 Acquired absence of other specified parts of digestive tract
CPT/HCPCS: 36415; 74019; 80053; 80306; 81001; 83690; 85025; 99284; A9270; 99283

== ENCOUNTER 2018-03-15 14:42 | Emergency (ER) | payer BC, MEDICARE ==
[2018-03-15 15:05] VITALS: BP 136/106
[2018-03-15] MEDS ORDERED: Ketorolac 60 MG/2 ML SDV IM ONE (15:52)
[2018-03-15] MEDS ORDERED: Dicyclomine 20 MG/2 ML SDV IM ONE (15:53)
--- NOTE | 2018-03-15 15:56 | EDM.PDOC ---
ED HPI GENERAL MEDICAL PROBLEM - General Chief Complaint: Abdominal Pain Stated Complaint: STOMACH PAIN Time Seen by Provider: 03/15/18 15:40 Source of Information: Reports: Patient History Limitations: Reports: No Limitations - History of Present Illness INITIAL COMMENTS - FREE TEXT/NARRATIVE: 42-year-old female presents for evaluation and treatment of abdominal pain. Patient reportedly has a history of chronic pancreatitis. States that this flare started last night. Currently sees providers at [facility]. She is scheduled to see her technician plant and maintenance and dip painter on ThursdayMarch 17 at [facility]. Patient reports that current plan of cares for her to have surgery in the near future. patient is in a pain contract. She currently receives methadone 5mg 1 tab twice a day. She says that she is out. She states that she's been out for 2 days, she then corrects herself and states that her last tablet was last night. Reports that the pharmacy shorted her on her most recent prescription. She states that she was today short 2 days of her medication with his last prescription. She is here requesting a shot of pain medication. Abdominal Pain Score (Numeric/FACES): 8 - Related Data Allergies Allergy/AdvReac Type Severity Reaction Status Date / Time buprenorphine [From Butrans] Allergy Itching Verified 03/15/18 14:59 metoclopramide HCl Allergy Itching Verified 03/15/18 14:59 [From Reglan] ketorolac [From Toradol] AdvReac Bleeding Verified 03/15/18 14:59 prochlorperazine AdvReac Vomiting Verified 03/15/18 14:59 [From Compazine] Home Meds: Home Meds Levothyroxine Sodium [Synthroid] 300 mcg PO DAILY 01/13/17 [History] Gabapentin [Neurontin] 1,200 mg PO TID PRN 04/25/17 [History] Ondansetron [Zofran ODT] 4 mg PO Q4H PRN #30 tab.dis 05/14/17 [Rx] Amylase/Lipase/Protease [Ayo WARE 12,000 Units] 24,000 - 76,000 units PO TIDMEALS 12/29/17 [History] Methadone 5 mg PO BID 12/29/17 [History] Naloxone HCl [Narcan] 4 mg CHELE ASDIRECTED PRN 12/29/17 [History] Acetaminophen [Tylenol] 1,300 mg PO Q4H PRN 01/08/18 [History] Ranitidine HCl 75 mg PO DAILY 02/08/18 [History] Past Medical History - Past Health History Medical/Surgical History: Denies Medical/Surgical History HEENT History: Reports: Glaucoma Cardiovascular History: Reports: Hypertension Respiratory History: 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 (See Below) Other Respiratory History: cough RLQ Gastrointestinal History: Reports: Pancreatitis, Other (See Below) Other Gastrointestinal History: chronic pancreatitis, fatty pancreas Genitourinary History: Reports: UTI, Recurrent BAKER History: 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 OB/BYN History: c section x3, tubes tied Musculoskeletal History: Reports: Arthritis Neurological History: 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 (See Below) Other Neuro History: pseudotumor, shunt Psychiatric History: Reports: Addiction, Anxiety, Depression Endocrine/Metabolic History: Reports: Hypothyroidism, Obesity/BMI 30+ Hematologic History: Reports: Anemia - Infectious Disease History Infectious Disease History: Reports: C-Difficile, MRSA Other Infectious Disease History: in 2006 - Past Surgical History Head Surgeries/Procedures: Reports: Shunt HEENT Surgical History: Reports: Oral Surgery GI Surgical History: Reports: Appendectomy, Bariatric Procedure, Cholecystectomy , EGD, ERCP Female Surgical History: Reports: Section, Tubal Ligation Social & Family History - Family History Family Medical History: Noncontributory Cardiac: Reports: Bypass, Hypertension, [place] Respiratory: Reports: Asthma Oncologic: Reports: Colon - Tobacco Use Smoking Status *Q: Never Smoker Packs/Tins Daily: 1 Used Tobacco, but Quit: Yes Month/Year Tobacco Last Used: 23 years Second Hand Smoke Exposure: No - Caffeine Use Caffeine Use: Reports: Coffee Other Caffeine Use: rarely - Alcohol Use Days Per Week of Alcohol Use: 0 - Recreational Drug Use Recreational Drug Use: No Drug Use in Last 12 Months: Yes Recreational Drug Type: Reports: Dilaudid, Other (see below) (Opioids) - Living Situation & Occupation Living situation: Reports: , with Spouse Occupation: Unemployed ED ROS GENERAL - Review of Systems Review Of Systems: ROS reveals no pertinent complaints other than HPI. ED EXAM, GI/ABD - Physical Exam Exam: See Below Exam Limited By: No Limitations General Appearance: Alert, WD/WN, No Apparent Distress Respiratory/Chest: No Respiratory Distress Neurological: Alert, Normal Cognition Psychiatric: Normal Affect, Normal Mood Skin Exam: Warm, Dry, Normal Color Course - Vital Signs Last Recorded V/S: Last Vital Signs Temp 36.3 C 03/15/18 15:01 Pulse 89 03/15/18 15:01 Resp 16 03/15/18 15:01 BP 136/106 H 03/15/18 15:01 Pulse Ox 100 03/15/18 15:01 - Orders/Labs/Meds Meds: Medications Discontinued Medications Generic Name Dose Route Start Last Admin Trade Name Dominic PRN Reason Stop Dose Admin Dicyclomine HCl 20 mg 03/15/18 15:53 03/15/18 16:07 Bentyl IM 03/15/18 15:54 20 mg ONETIME ONE Administration Ketorolac Tromethamine 60 mg 03/15/18 15:52 03/15/18 16:06 Toradol IM 03/15/18 15:53 60 mg ONETIME ONE Administration - Re-Assessments/Exams Free Text/Narrative Re-Assessment/Exam: 03/15/18 15:54 Patient searched on the [place] Rx drug registry 47 prescriptions from 7 prescribers within the last year. Methadon 5mg #30 filled on 02-18-18. temazepam 15mg caps #60 filled 02-27-18. Gabapentin 600mg cap # 180 filled 03-11-18. I'm informed the patient that I would not be prescribing her any narcotics today. She is in a pain contract and should have enough to get her through until March 18 per the [place] prescription drug registry. She does appointment to see her pain specialist on Thursday. Patient became upset and demanded to see the ER provider on at that time. I will give her toradol and bently. Discharge instruction as documented. 03/15/18 17:05 Dr. wheatley went to see the patient. She has now eloped. Departure - Departure Time of Disposition: 15:55 Disposition: Home, Self-Care 01 Condition: Good Clinical Impression: Abdominal pain, chronic, epigastric - Discharge Information Instructions: Abdominal Pain, Adult, [id number] Referrals: Rik Walls PA-C [Primary Care Provider] - Forms: ED Department Discharge Additional Instructions: For chronic pain you need to see your pain specialist. If your symptoms change or worsen please return to the ER.
== END 2018-03-15 16:51 | disposition home or self-care (01) ==
LOC: JD.ED 14:42
DX: R10.13 Epigastric pain (principal); G89.29 Other chronic pain; K86.1 Other chronic pancreatitis; I10 Essential (primary) hypertension; Z88.8 Allergy status to other drugs, medicaments and biological substances; Z88.6 Allergy status to analgesic agent; Z79.899 Other long term (current) drug therapy; Z87.891 Personal history of nicotine dependence
CPT/HCPCS: 96372; 99284; J0500; J1885; 99283

== ENCOUNTER 2018-04-05 09:12 | Emergency (ER) | payer BC, MEDICARE ==
[2018-04-05 09:22] VITALS: BP 149/94
[2018-04-05] MEDS ORDERED: diphenhydrAMINE 50 MG/ML SDV IM ONE (11:57)
[2018-04-05] MEDS ORDERED: Dicyclomine 20 MG/2 ML SDV IM ONE (11:57)
[2018-04-05] MEDS ORDERED: Promethazine 25 MG/ML SDV IM ONE (11:57)
--- NOTE | 2018-04-05 12:57 | EDM.PDOC ---
ED HPI GENERAL MEDICAL PROBLEM - General Chief Complaint: Back Pain or Injury Stated Complaint: PANCREATITIS Time Seen by Provider: 04/05/18 11:26 Source of Information: Reports: Patient History Limitations: Reports: No Limitations - History of Present Illness INITIAL COMMENTS - FREE TEXT/NARRATIVE: 42-year-old female presents for evaluation and treatment of back pain. Patient reports she is experiencing pain in her mid back. Patient states she's having a flare of her pancreatitis which is radiating to her back. States that it started around 0400 this morning. Reports mild abdominal discomfort but primarily pain in her back. She reports associated symptoms of nausea and one episode of vomiting. She denies any fevers, chills, lightheadedness, dizziness or syncope. Patient states that she took a oxycodone 0400 this morning. She also took a 5mg methadone at this morning. No nausea medications. She did have a bowel movement upon arrival to the ER. Reports that it was forte and fatty, normal for her, no blood in her stools. Patient is currently in pain management at [facility] with Dr. Montes. She states that she contacted him and was instructed by him to come to the ER for further pain management. Upon further questioning it sounds that he she whas actually been in contact with a member of his team, nurse or a marine structural welder, who instructed her to come to the ER. She states that she is not in a pain contract only receives pain medication from him. She is also seen Dr. Gutierrez, pancreatic biliary specialist. He has instructed her not to take any NSAIDs at all. She states she is scheduled to have an MRCP done on April 19. Onset: Today Location: Reports: Abdomen, Back Back Pain Score (Numeric/FACES): 9 - Related Data Allergies Allergy/AdvReac Type Severity Reaction Status Date / Time buprenorphine [From Butrans] Allergy Itching Verified 04/05/18 13:36 metoclopramide HCl Allergy Itching Verified 04/05/18 13:36 [From Reglan] ketorolac [From Toradol] AdvReac Bleeding Verified 04/05/18 13:36 prochlorperazine AdvReac Vomiting Verified 04/05/18 13:36 [From Compazine] Home Meds: Home Meds Levothyroxine Sodium [Synthroid] 300 mcg PO DAILY 01/13/17 [History] Gabapentin [Neurontin] 1,200 mg PO TID PRN 04/25/17 [History] Ondansetron [Zofran ODT] 4 mg PO Q4H PRN #30 tab.dis 05/14/17 [Rx] Amylase/Lipase/Protease [Ayo DR 12,000 Units] 24,000 - 76,000 units PO TIDMEALS 12/29/17 [History] Methadone 5 mg PO BID 12/29/17 [History] Naloxone HCl [Narcan] 4 mg CHELE ASDIRECTED PRN 12/29/17 [History] Acetaminophen [Tylenol] 1,300 mg PO Q4H PRN 01/08/18 [History] Ranitidine HCl 75 mg PO DAILY 02/08/18 [History] Past Medical History - Past Health History Medical/Surgical History: Denies Medical/Surgical History HEENT History: Reports: Glaucoma Cardiovascular History: Reports: Hypertension Respiratory History: 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 (See Below) Other Respiratory History: cough RLQ Gastrointestinal History: Reports: Pancreatitis, Other (See Below) Other Gastrointestinal History: chronic pancreatitis, fatty pancreas Genitourinary History: Reports: UTI, Recurrent 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 OB/BYN History: c section x3, tubes tied Musculoskeletal History: Reports: Arthritis Neurological History: 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 (See Below) Other Neuro History: pseudotumor, shunt Psychiatric History: Reports: Addiction, Anxiety, Depression Endocrine/Metabolic History: Reports: Hypothyroidism, Obesity/BMI 30+ Hematologic History: Reports: Anemia - Infectious Disease History Infectious Disease History: Reports: C-Difficile, MRSA Other Infectious Disease History: in 2006 - Past Surgical History Head Surgeries/Procedures: Reports: Shunt HEENT Surgical History: Reports: Oral Surgery GI Surgical History: Reports: Appendectomy, Bariatric Procedure, Cholecystectomy , EGD, ERCP Female Surgical History: Reports: Section, Tubal Ligation Social & Family History - Family History Family Medical History: Noncontributory Cardiac: Reports: Bypass, Hypertension, [place] Respiratory: Reports: Asthma Oncologic: Reports: Colon - Tobacco Use Smoking Status *Q: Never Smoker - Caffeine Use Caffeine Use: Reports: None Other Caffeine Use: rarely - Recreational Drug Use Recreational Drug Use: No - Living Situation & Occupation Living situation: Reports: , with Spouse Occupation: Unemployed ED ROS GENERAL - Review of Systems Review Of Systems: See Below Constitutional: Denies: Fever, Chills GI/Abdominal: Reports: Abdominal Pain (epigastic), Nausea, Vomiting (x1 prior to arrival in the ER). Denies: Bloody Stool, Diarrhea Musculoskeletal: Reports: Back Pain (mid back) Neurological: Denies: Dizziness, Syncope ED EXAM, UPPER BACK/NECK PAIN - Physical Exam Exam: See Below Exam Limited By: No Limitations General Appearance: Alert, WD/WN, No Apparent Distress Throat/Mouth Exam: Normal Inspection, Normal Voice, No Airway Compromise Cardiovascular/Respiratory: Regular Rate, Rhythm, No M/R/G GI/Abdominal: Normal Bowel Sounds, Soft, Non-Tender Back Exam: Normal Inspection. No: Paraspinal Tenderness, Vertebral Tenderness Neurologic: Alert Psychiatric: Normal Affect, Normal Mood Skin Exam: Normal Color, Warm/Dry Course - Vital Signs Last Recorded V/S: Last Vital Signs Temp 36.5 C 04/05/18 09:20 Pulse 100 04/05/18 09:20 Resp 18 04/05/18 09:20 BP 149/94 H 04/05/18 09:20 Pulse Ox 100 04/05/18 09:20 - Orders/Labs/Meds Meds: Medications Discontinued Medications Generic Name Dose Route Start Last Admin Trade Name Freq PRN Reason Stop Dose Admin Dicyclomine HCl 20 mg 04/05/18 11:57 04/05/18 12:28 Bentyl IM 04/05/18 11:58 20 mg ONETIME ONE Administration Diphenhydramine HCl 50 mg 04/05/18 11:57 04/05/18 12:22 Benadryl IM 04/05/18 11:58 50 mg ONETIME ONE Administration Promethazine HCl 25 mg 04/05/18 11:57 04/05/18 12:23 Phenergan IM 04/05/18 11:58 25 mg ONETIME ONE Administration - Re-Assessments/Exams Free Text/Narrative Re-Assessment/Exam: 04/05/18 13:00 I have attempted to call the patient's painter and body mechanic apprentice, Dr. Montes, have been unsuccessful. Patient was urged in the [place] perception drug registry. She has received 49 prescriptions from 8 different prescribers for controlled substances within the last year. Most recently she received temazepam 15 mg #60 on 03-29-18. She has received oxycodone 5 mg #30 on 03-17-18 and methadone 5 mg tabs #60 on 03-17-18. Patient notified nursing staff that she is feeling better. At this point we will discharge her home. Departure - Departure Time of Disposition: 13:01 Disposition: Home, Self-Care 01 Condition: Fair Clinical Impression: Abdominal pain, chronic, epigastric Nausea & vomiting Qualifiers: Vomiting type: unspecified Vomiting Intractability: non-intractable Qualified Code(s): R11.2 - Nausea with vomiting, unspecified - Discharge Information Referrals: Rik Walls PA-C [Primary Care Provider] - Forms: ED Department Discharge Additional Instructions: Continue with your current plan of care. Unfortunately, we are unable to contact your for pain manage doctor today. I recommend you contact him as needed for further recommendations. Please return to the ER if your symptoms change or worsen.
== END 2018-04-05 13:15 | disposition home or self-care (01) ==
LOC: JD.ED 09:12
DX: R10.13 Epigastric pain (principal); R11.2 Nausea with vomiting, unspecified; I10 Essential (primary) hypertension; E03.9 Hypothyroidism, unspecified; E66.9 Obesity, unspecified; D64.9 Anemia, unspecified; Z88.5 Allergy status to narcotic agent; Z79.899 Other long term (current) drug therapy; Z87.440 Personal history of urinary (tract) infections; Z98.84 Bariatric surgery status; Z90.49 Acquired absence of other specified parts of digestive tract
CPT/HCPCS: 96372; 99284; J0500; J1200; J2550; 99283

== ENCOUNTER 2018-07-09 09:57 | Emergency (ER) | payer BC, MEDICARE ==
[2018-07-09] MEDS ORDERED: HYDROmorphone 0.5 MG/0.5 ML SYRINGE IM ONE (12:36)
[2018-07-09] MEDS ORDERED: Ondansetron 4 MG Tab.DIS PO ONE (12:37)
[2018-07-09] MEDS ORDERED: Ketorolac 60 MG/2 ML SDV IM ONE (13:46)
--- NOTE | 2018-07-09 14:23 | EDM.PDOC ---
ED HPI GENERAL MEDICAL PROBLEM - General Chief Complaint: Abdominal Pain Stated Complaint: CHRONIC PANCREATITIS Time Seen by Provider: 07/09/18 12:36 Source of Information: Reports: Patient, RN Notes Reviewed - History of Present Illness INITIAL COMMENTS - FREE TEXT/NARRATIVE: 42-year-old lady comes in with abdominal pain nausea vomiting and diarrhea. She has history of similar symptomatology with frequent visits to this ED and other facilities as well over the past 2-3 years. She states she has chronic pancreatitis but her markers for the most part have usually been normal on prior visits. She does have history of chronic pain syndrome and is currently on methadone. She started having increased abdominal pain yesterday and then started vomiting up her medications last evening and again this morning. There also has been some "off colored diarrhea". She states she has not eaten today and also "did not eat yesterday". No fever or chills.No Chest pain or difficulty breathing. Left Abdominal Pain Score (Numeric/FACES): 9 - Related Data Allergies Allergy/AdvReac Type Severity Reaction Status Date / Time buprenorphine [From Butrans] Allergy Itching Verified 07/09/18 10:55 metoclopramide HCl Allergy Itching Verified 07/09/18 10:55 [From Reglan] NSAIDS (Non-Steroidal Allergy Abdominal Verified 07/09/18 10:55 Anti-Inflamma Pain ketorolac [From Toradol] AdvReac Bleeding Verified 07/09/18 10:55 prochlorperazine AdvReac Vomiting Verified 07/09/18 10:55 [From Compazine] Home Meds: Home Meds Gabapentin [Neurontin] 1,200 mg PO TID PRN 04/25/17 [History] Ondansetron [Zofran ODT] 4 mg PO Q4H PRN #30 tab.dis 05/14/17 [Rx] Amylase/Lipase/Protease [Ayo DR 12,000 Units] 24,000 - 76,000 units PO TIDMEALS 12/29/17 [History] Methadone 5 mg PO BID 12/29/17 [History] Naloxone HCl [Narcan] 4 mg CHELE ASDIRECTED PRN 12/29/17 [History] Acetaminophen [Tylenol] 1,300 mg PO Q4H PRN 01/08/18 [History] raNITIdine HCl [Ranitidine HCl] 75 mg PO DAILY 02/08/18 [History] Ondansetron [Zofran ODT] 4 mg PO Q6H PRN #10 tab.dis 07/09/18 [Rx] Past Medical History - Past Health History Medical/Surgical History: Denies Medical/Surgical History HEENT History: Reports: Glaucoma Cardiovascular History: Reports: Hypertension Respiratory History: 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 (See Below) Other Respiratory History: cough RLQ Gastrointestinal History: Reports: Pancreatitis, Other (See Below) Other Gastrointestinal History: chronic pancreatitis, fatty pancreas Genitourinary History: Reports: UTI, Recurrent 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 History: c section x3, tubes tied Musculoskeletal History: Reports: Arthritis Neurological History: 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 (See Below) Other Neuro History: pseudotumor, shunt Psychiatric History: Reports: Addiction, Anxiety, Depression Endocrine/Metabolic History: Reports: Hypothyroidism, Obesity/BMI 30+ Hematologic History: Reports: Anemia - Infectious Disease History Infectious Disease History: Reports: C-Difficile, MRSA Other Infectious Disease History: in 2006 - Past Surgical History Head Surgeries/Procedures: Reports: Shunt HEENT Surgical History: Reports: Oral Surgery GI Surgical History: Reports: Appendectomy, Bariatric Procedure, Cholecystectomy , EGD, ERCP Female Surgical History: Reports: Section, Tubal Ligation Social & Family History - Family History Family Medical History: Noncontributory Cardiac: Reports: Bypass, Hypertension, [place] Respiratory: Reports: Asthma Oncologic: Reports: Colon - Tobacco Use Smoking Status *Q: Never Smoker - Caffeine Use Caffeine Use: Reports: Coffee Other Caffeine Use: rarely - Recreational Drug Use Recreational Drug Use: No - Living Situation & Occupation Living situation: Reports: , with Spouse Occupation: Unemployed ED ROS GENERAL - Review of Systems Review Of Systems: See Below Constitutional: Denies: Fever, Chills, Diaphoresis HEENT: Denies: Throat Pain Respiratory: Denies: Shortness of Breath Cardiovascular: Denies: Chest Pain GI/Abdominal: Reports: Abdominal Pain, Diarrhea, Nausea, Vomiting Musculoskeletal: Reports: Back Pain Skin: Reports: No Symptoms Neurological: Reports: No Symptoms ED EXAM, GI/ABD - Physical Exam Exam: See Below General Appearance: Alert, Moderate Distress Eyes: Bilateral: Normal Appearance Throat/Mouth: Normal Inspection, Normal Oropharynx Head: Atraumatic Neck: Supple Respiratory/Chest: No Respiratory Distress, Lungs Clear, Normal Breath Sounds Cardiovascular: Regular Rate, Rhythm GI/Abdominal Exam: Soft, Tender (Moderate tenderness upper mid abdomen and left upper quadrant). No: Guarding, Rebound Back Exam: No: CVA Tenderness (L), CVA Tenderness (R) Extremities: Normal Inspection Neurological: Alert, Oriented, No Motor/Sensory Deficits Skin Exam: Warm, Dry, Normal Color Course - Vital Signs Last Recorded V/S: Last Vital Signs Temp 99.1 F 07/09/18 10:52 Pulse 88 07/09/18 10:52 Resp 18 07/09/18 10:52 BP 137/105 H 07/09/18 10:52 Pulse Ox 99 07/09/18 10:52 - Orders/Labs/Meds Labs: Laboratory Tests 07/09/18 07/09/18 Range/Units 12:30 12:41 WBC 6.98 (3.98-10.04) K/mm3 RBC 3.83 L (3.98-5.22) M/mm3 Hgb 10.7 L (11.2-15.7) gm/L Hct 34.2 (34.1-44.9) % MCV 89.3 (79.4-94.8) fl MCH 27.9 (25.6-32.2) pg MCHC 31.3 L (32.2-35.5) g/dl RDW Std Deviation 51.0 H (36.4-46.3) fL Plt Count 275 (182-369) K/mm3 MPV 10.4 (9.4-12.3) fl Neutrophils % (Manual) 55 (40-60) % Band Neutrophils % 0 (0-10) % Lymphocytes % (Manual) 43 H (20-40) % Atypical Lymphs % 0 % Monocytes % (Manual) 2 (2-10) % Eosinophils % (Manual) 0 L (0.7-5.8) % Basophils % (Manual) 0 L (0.1-1.2) Platelet Estimate Adequate RBC Morph Comment Normal Sodium 142 (136-145) mEq/L Potassium 3.6 (3.5-5.1) mEq/L Chloride 103 (98-107) mEq/L Carbon Dioxide 30 (21-32) mEq/L Anion Gap 12.6 (5-15) BUN 10 (7-18) mg/dL Creatinine 1.0 (0.55-1.02) mg/dL Est Cr Clr Drug Dosing 78.44 mL/min Estimated GFR (MDRD) > 60 (>60) mL/min BUN/Creatinine Ratio 10.0 L (14-18) Glucose 89 (74-106) mg/dL Calcium 9.4 (8.5-10.1) mg/dL Total Bilirubin 0.2 (0.2-1.0) mg/dL AST 28 (15-37) U/L ALT 55 (14-59) U/L Alkaline Phosphatase 124 H (46-116) U/L C-Reactive Protein 1.4 H* (<1.0) mg/dL Total Protein 8.2 (6.4-8.2) g/dl Albumin 3.6 (3.4-5.0) g/dl Globulin 4.6 gm/dL Albumin/Globulin Ratio 0.8 L (1-2) Lipase 321 (73-393) U/L Meds: Medications Discontinued Medications Generic Name Dose Route Start Last Admin Trade Name Freq PRN Reason Stop Dose Admin Hydromorphone HCl 2 mg 07/09/18 12:36 07/09/18 12:53 Dilaudid IM 07/09/18 12:37 2 mg ONETIME ONE Administration Ketorolac Tromethamine 60 mg 07/09/18 13:46 07/09/18 14:24 Toradol IM 07/09/18 13:47 60 mg ONETIME ONE Administration Ondansetron HCl 4 mg 07/09/18 12:37 07/09/18 12:54 Zofran Odt PO 07/09/18 12:38 4 mg ONETIME ONE Administration Departure - Departure Time of Disposition: 14:17 Disposition: Home, Self-Care 01 Condition: Fair Clinical Impression: Vomiting and diarrhea Abdominal pain Qualifiers: Abdominal location: upper abdomen, unspecified Qualified Code(s): R10.10 - Upper abdominal pain, unspecified Vomiting Qualifiers: Vomiting type: unspecified Vomiting Intractability: non-intractable Nausea presence: with nausea Qualified Code(s): R11.2 - Nausea with vomiting, unspecified - Discharge Information Prescriptions: Ondansetron [Zofran ODT] 4 mg PO Q6H PRN #10 tab.dis PRN Reason: Nausea/Vomiting Referrals: Rik Walls, PHANI [Primary Care Provider] - Forms: ED Department Discharge Additional Instructions: clear liquids the remainder of today or until nausea and vomiting resolving, than careful bland diet as tolerated. zofran if needed for further nausea or vomiting. Follow up clinic as needed.
[2018-07-09 14:56] VITALS: BP 125/86
== END 2018-07-09 14:41 | disposition home or self-care (01) ==
LOC: JD.ED 09:57
DX: R11.2 Nausea with vomiting, unspecified (principal); R19.7 Diarrhea, unspecified; I10 Essential (primary) hypertension; E03.9 Hypothyroidism, unspecified; Z79.899 Other long term (current) drug therapy; Z88.6 Allergy status to analgesic agent
CPT/HCPCS: 36415; 80053; 83690; 85007; 85027; 86140; 96372; 99284; A9270; J1170; J1885

== ENCOUNTER 2018-07-17 17:33 | Emergency (ER) | payer BC, MEDICARE ==
[2018-07-17] MEDS ORDERED: HYDROmorphone 1 MG/ML Syringe IM ONE (18:05)
[2018-07-17] MEDS ORDERED: Promethazine 25 MG/ML SDV IM ONE ×2 (18:06→18:09)
[2018-07-17] MEDS ORDERED: diphenhydrAMINE 50 MG/ML SDV IM ONE (18:06)
--- NOTE | 2018-07-17 18:07 | EDM.PDOC ---
ED HPI GENERAL MEDICAL PROBLEM - General Chief Complaint: Abdominal Pain Stated Complaint: ABDOMINAL PAIN Time Seen by Provider: 07/17/18 18:05 Source of Information: Reports: Patient History Limitations: Reports: No Limitations - History of Present Illness INITIAL COMMENTS - FREE TEXT/NARRATIVE: 42-year-old female presents to the ED due to uncontrolled left upper quadrant abdominal pain radiatinig to to her Lt back. She states that pain started yesterday and is progressively worsened to the point that she can no longer stand it. She can't stop vomiting of bilious material. She's been having loose stools on average 68 per day due to steatorrhea. He has a chronic pancreatitis and recent MR ERCP done at [facility] suggested that up to one third of her pancreas is necrotic and severely damaged. 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 Therefore current workup is being done in this regard and tentatively she is booked for total thyroidectomy on the of this month. Be done at the [facility]. There is some hope that the removal liver thyroid gland may bring some control to the chronic pancreatitis. Patient is currently on methadone 5 mg twice a day but today it went right through her she seen in the toilet and therefore can't really take any more because she would not have enough to last a month. She took Zofran 3 times a day so for the last time was 2 hours ago. No hematemesis. No blood in the stool. Pain pain is constant boring and she reports 10 out of 10. In the past labs have rarely sit shown an elevated lipase due to the chronicity of her pancreatitis. Therefore no further labs are advised that she is febrile. Onset: Gradual Onset Date: 07/16/18 (Recurrent bout of severe pancreatitis starting yesterday.) Duration: Day(s):, Chronic (History of chronic relapsing pancreatitis.), Getting Worse (Over the last 48 hours) Location: Reports: Abdomen (Left upper quadrant of the abdomen epigastrium radiating to to the right back inferior to her shoulder blade. This is characteristic pattern of her inflamed pancreas) Quality: Reports: Ache, Other Severity: Severe (Pouring constant severe pain 10 on a 10) Improves with: Reports: None Worsens with: Reports: None Context: 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 (Patient experiences frequent flareups of chronic pancreatitis.). Denies: Activity, Exercise, Lifting, Sick Contact, Trauma Associated Symptoms: Reports: Loss of Appetite, Malaise, Nausea/Vomiting ( Intractable nausea and vomiting), Other (Chronic loose stools or diarrhea usually 6 date steatorrhea stools per day.). 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 (see below) Other Treatments POWER MACHINE OPERATOR: zofran;methadone-vomited Left Abdomen Pain Score (Numeric/FACES): 7 - Related Data Allergies Allergy/AdvReac Type Severity Reaction Status Date / Time buprenorphine [From Butrans] Allergy Itching Verified 07/09/18 10:55 metoclopramide HCl Allergy Itching Verified 07/09/18 10:55 [From Reglan] NSAIDS (Non-Steroidal Allergy Abdominal Verified 07/09/18 10:55 Anti-Inflamma Pain ketorolac [From Toradol] AdvReac Bleeding Verified 07/09/18 10:55 prochlorperazine AdvReac Vomiting Verified 07/09/18 10:55 [From Compazine] Home Meds: Home Meds Gabapentin [Neurontin] 1,200 mg PO TID PRN 04/25/17 [History] Ondansetron [Zofran ODT] 4 mg PO Q4H PRN #30 tab.dis 05/14/17 [Rx] Methadone 5 mg PO BID 12/29/17 [History] Naloxone HCl [Narcan] 4 mg CHELE ASDIRECTED PRN 12/29/17 [History] raNITIdine HCl [Ranitidine HCl] 75 mg PO ASDIRECTED 02/08/18 [History] Past Medical History - Past Health History Medical/Surgical History: Denies Medical/Surgical History HEENT History: Reports: Glaucoma Cardiovascular History: Reports: Hypertension Respiratory History: 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 (See Below) Other Respiratory History: cough RLQ Gastrointestinal History: Reports: Pancreatitis, Other (See Below) Other Gastrointestinal History: chronic pancreatitis, fatty pancreas Genitourinary History: Reports: UTI, Recurrent 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 PREPARER History: c section x3, tubes tied Musculoskeletal History: Reports: Arthritis Neurological History: 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 (See Below) Other Neuro History: pseudotumor, shunt Psychiatric History: Reports: Addiction, Anxiety, Depression Endocrine/Metabolic History: Reports: Hypothyroidism, Obesity/BMI 30+ Hematologic History: Reports: Anemia - Infectious Disease History Infectious Disease History: Reports: C-Difficile, MRSA Other Infectious Disease History: in 2006 - Past Surgical History Head Surgeries/Procedures: Reports: Shunt HEENT Surgical History: Reports: Oral Surgery GI Surgical History: Reports: Appendectomy, Bariatric Procedure, Cholecystectomy , EGD, ERCP Female Surgical History: Reports: Section, Tubal Ligation Social & Family History - Family History Family Medical History: Noncontributory Cardiac: Reports: Bypass, Hypertension, [place] Respiratory: Reports: Asthma Oncologic: Reports: Colon - Tobacco Use Smoking Status *Q: Never Smoker - Caffeine Use Caffeine Use: Reports: Coffee Other Caffeine Use: rarely - Recreational Drug Use Recreational Drug Use: No - Living Situation & Occupation Living situation: Reports: , with Spouse Occupation: Unemployed ED ROS GENERAL - Review of Systems Review Of Systems: See Below Constitutional: Reports: Chills, Malaise, Weakness, Fatigue, Decreased Appetite (Currently 210 pounds.), Weight Loss. Denies: Fever HEENT: Reports: No Symptoms Respiratory: 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. Denies: Shortness of Breath, Wheezing, Pleuritic Chest Pain Cardiovascular: Reports: Lightheadedness. Denies: Chest Pain (Can take a full deep breath as it makes the abdominal pain worse.), Blood Pressure Problem, Claudication, Dyspnea on Exertion (Sometimes she stands up too fast), Edema, Orthopnea Endocrine: Reports: Fatigue GI/Abdominal: Reports: Abdominal Pain (See history of present illness.), Diarrhea (Obi diarrhea due to steatorrhea she's not able to absorb most of her fats due to chronic pancreatitis She is on pancreatic enzyme supplements. ) : Reports: No Symptoms Musculoskeletal: Reports: No Symptoms Skin: Reports: No Symptoms Neurological: 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 (Headaches have been well controlled on the gabapentin and the last shunt seems to be working quite well.) Psychiatric: Reports: Depression (Some depression which she is coping with quite well considering the chronic disability she has from illness.) Hematologic/Lymphatic: Reports: No Symptoms Immunologic: Reports: No Symptoms ED EXAM, GI/ABD - Physical Exam Exam: See Below Exam Limited By: No Limitations General Appearance: Alert, WD/WN Eyes: Bilateral: Normal Appearance (No jaundice.) Throat/Mouth: Other Head: Atraumatic (Tongue is dry and coated.), Normocephalic Neck: Normal Inspection, Supple, Non-Tender, Full Range of Motion, Thyromegaly ( Does have palpable goiter.). No: Lymphadenopathy (L), Lymphadenopathy (R) Respiratory/Chest: No Respiratory Distress, Lungs Clear, Normal Breath Sounds, Respiratory Distress, Splinting (Mild tachypnea with some splinting respirations deep breathing makes the pain worse. Mostly on the left side) Cardiovascular: Normal Peripheral Pulses, Regular Rate, Rhythm, No Edema, No Murmur, Tachycardia (100/m) GI/Abdominal Exam: Normal Bowel Sounds, No Organomegaly, No Abnormal Bruit, No Mass, Pelvis Stable, Guarding (Very tender to palpation left upper quadrant of the abdomen with guarding), Tender. No: Rigid, Rebound Back Exam: Normal Inspection, Full Range of Motion. No: CVA Tenderness (L), CVA Tenderness (R) Extremities: Normal Inspection, Normal Range of Motion, Other (She has a right foot in a cast boot brace due to a fracture of medical tarsal. This occurred about 3 weeks ago. She is being followed by Dr. Silveira--target worker in this regard ) Neurological: Alert, Oriented, CN II-XII Intact, Normal Cognition Psychiatric: Normal Affect, Normal Mood Skin Exam: Warm, Dry, Normal Color, No Rash Course - Vital Signs Last Recorded V/S: Last Vital Signs Temp 36.8 C 07/17/18 18:41 Pulse 68 07/17/18 18:41 Resp 16 07/17/18 18:41 BP 138/86 07/17/18 18:41 Pulse Ox 98 07/17/18 18:41 - Orders/Labs/Meds Meds: Medications Discontinued Medications Generic Name Dose Route Start Last Admin Trade Name Dominic PRN Reason Stop Dose Admin Diphenhydramine HCl 50 mg 07/17/18 18:06 07/17/18 18:30 Benadryl IM 07/17/18 18:07 50 mg ONETIME ONE Administration Hydromorphone HCl 2 mg 07/17/18 18:05 07/17/18 18:34 Dilaudid IM 07/17/18 18:06 2 mg ONETIME ONE Administration Promethazine HCl 37.5 mg 07/17/18 18:06 07/17/18 18:29 Phenergan IM 07/17/18 18:07 Not Given ONETIME ONE Promethazine HCl 50 mg 07/17/18 18:09 09/01/18 18:32 Phenergan IM 07/17/18 18:10 50 mg ONETIME ONE Administration - Radiology Interpretation Free Text/Narrative:: 42-year-old female presents to the ED primarily for pain management. Patient has a history of chronic pancreatitis and more recently has been diagnosed with multiple endocrine neoplasia. She is now scheduled to have a total thyroidectomy on 02 August. To be done at the [facility]. Our ERCP demonstrated that a third of her pancreas is necrotic and . A last resort is a modified Whipple's procedure. The hope was that removal of her thyroid may settle down her pancreatitis. Been trying to cope with chronic illness with methadone 5 mg twice daily. Today her methadone went right through her with the diarrhea and she can't use any more tablets and she has otherwise she runs out and she is without pain medication. Vomiting frequently over the last 48 hours. Bilious material without any he met emesis. Pain is currently a 10 out of 10 left upper quadrant and then rating to to her left flank area. Plan Dilaudid 2 mg IM with Benadryl 50 mg IM and Phenergan 50 mg IM. Patient is no longer to receive NSAIDs or Toradol due to the possibility of creating a hemorrhagic pancreatitis. Labs are felt to be useless as the chronic pancreatitis will be unlikely to show any elevation of the serum lipase or amylase anymore. She is afebrile therefore labs are not indicated at this time. [place] to discharge her home after IM injections have been provided she's tolerating the medications extremely well in the past. Her son is here to drive her back to [place]. Departure - Departure Time of Disposition: 18:45 Disposition: Home, Self-Care 01 Condition: Serious Clinical Impression: Chronic relapsing pancreatitis, History of chronic pancreatitis - Discharge Information Instructions: Chronic Pancreatitis Referrals: Rik Walls PA-C [Primary Care Provider] - Forms: ED Department Discharge Additional Instructions: Evaluation the emergency room today in regards to a flareup of chronic pancreatitis with associated steatorrhea or diarrhea and vomiting. Flareup started yesterday and currently is out of control. Pain medication will stay down or goes right through you. You're therefore treated with intramuscular injection of Dilaudid 2 mg with Phenergan 50 mg and Benadryl 50 mg IM for acute pain and nausea relief. Just home to sleep and hopefully regain control of pain syndrome.
[2018-07-17 18:42] VITALS: BP 138/86
== END 2018-07-17 18:45 | disposition home or self-care (01) ==
LOC: JD.ED 17:33
DX: K86.1 Other chronic pancreatitis (principal); I10 Essential (primary) hypertension; Z88.8 Allergy status to other drugs, medicaments and biological substances
CPT/HCPCS: 96372; 99284; J1170; J1200; J2550

== ENCOUNTER 2018-07-21 10:25 | Emergency (ER) | payer BC, MEDICARE ==
[2018-07-21] MEDS ORDERED: Promethazine 25 MG/ML SDV IM ONE (10:58)
[2018-07-21] MEDS ORDERED: HYDROmorphone 1 MG/ML Syringe IM ONE (11:01)
[2018-07-21] MEDS ORDERED: diphenhydrAMINE 50 MG/ML SDV IM ONE (11:03)
--- NOTE | 2018-07-21 11:44 | EDM.PDOC ---
ED HPI GENERAL MEDICAL PROBLEM - General Chief Complaint: Back Pain or Injury Stated Complaint: ABDOMINAL PAIN Time Seen by Provider: 07/21/18 10:39 - History of Present Illness INITIAL COMMENTS - FREE TEXT/NARRATIVE: 42-year-old female with multiple medical problems most notably chronic pancreatitis which seems to be a complication of a prior cholecystectomy presenting with abdominal pain nausea vomiting. Patient began to have an exacerbation of her chronic pancreatitis this morning. She describes the pain is located in the epigastrium severe 8 out of 10 no palliating or provoking factors. She threw up her methadone this morning and now presents to the emergency department. Of note she is [facility] by [facility] specialists [facility] well as [facility]. She is recently diagnosed with multiple endocrine neoplasia. And she is pursuing further treatment and diagnosis of there. Middle Back Pain Score (Numeric/FACES): 9 - Related Data Allergies Allergy/AdvReac Type Severity Reaction Status Date / Time buprenorphine [From Butrans] Allergy Itching Verified 07/21/18 10:35 metoclopramide HCl Allergy Itching Verified 07/21/18 10:35 [From Reglan] NSAIDS (Non-Steroidal Allergy Abdominal Verified 07/21/18 10:35 Anti-Inflamma Pain ketorolac [From Toradol] AdvReac Bleeding Verified 07/21/18 10:35 prochlorperazine AdvReac Vomiting Verified 07/21/18 10:35 [From Compazine] Home Meds: Home Meds Gabapentin [Neurontin] 1,200 mg PO TID PRN 04/25/17 [History] Ondansetron [Zofran ODT] 4 mg PO Q4H PRN #30 tab.dis 05/14/17 [Rx] Methadone 5 mg PO BID 12/29/17 [History] Naloxone HCl [Narcan] 4 mg CHELE ASDIRECTED PRN 12/29/17 [History] raNITIdine HCl [Ranitidine HCl] 75 mg PO ASDIRECTED 02/08/18 [History] Past Medical History - Past Health History Medical/Surgical History: Denies Medical/Surgical History HEENT History: Reports: Glaucoma Cardiovascular History: Reports: Hypertension Respiratory History: 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 (See Below) Other Respiratory History: cough RLQ Gastrointestinal History: Reports: Pancreatitis, Other (See Below) Other Gastrointestinal History: chronic pancreatitis, fatty pancreas Genitourinary History: Reports: UTI, Recurrent 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: c section x3, tubes tied Musculoskeletal History: Reports: Arthritis Neurological History: 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 (See Below) Other Neuro History: pseudotumor, shunt Psychiatric History: Reports: Addiction, Anxiety, Depression Endocrine/Metabolic History: Reports: Hypothyroidism, Obesity/BMI 30+ Hematologic History: Reports: Anemia - Infectious Disease History Infectious Disease History: Reports: C-Difficile, MRSA Other Infectious Disease History: in 2006 - Past Surgical History Head Surgeries/Procedures: Reports: Shunt HEENT Surgical History: Reports: Oral Surgery GI Surgical History: Reports: Appendectomy, Bariatric Procedure, Cholecystectomy , EGD, ERCP Female Surgical History: Reports: Section, Tubal Ligation Social & Family History - Family History Family Medical History: Noncontributory Cardiac: Reports: Bypass, Hypertension, [place] Respiratory: Reports: Asthma Oncologic: Reports: Colon - Tobacco Use Smoking Status *Q: Never Smoker - Caffeine Use Caffeine Use: Reports: Coffee Other Caffeine Use: 1 cup daily - Recreational Drug Use Recreational Drug Use: No - Living Situation & Occupation Living situation: Reports: , with Spouse Occupation: Unemployed ED ROS GENERAL - Review of Systems Review Of Systems: See Below Constitutional: Reports: No Symptoms HEENT: Reports: No Symptoms Respiratory: Reports: No Symptoms Cardiovascular: Reports: No Symptoms GI/Abdominal: Reports: Abdominal Pain, Nausea, Vomiting Musculoskeletal: Reports: No Symptoms Skin: Reports: No Symptoms Neurological: Reports: No Symptoms Psychiatric: Reports: No Symptoms ED EXAM, GI/ABD - Physical Exam Exam: See Below Exam Limited By: No Limitations General Appearance: Alert, No Apparent Distress Respiratory/Chest: No Respiratory Distress, Lungs Clear, Normal Breath Sounds Cardiovascular: Normal Peripheral Pulses, Regular Rate, Rhythm, No Edema GI/Abdominal Exam: Normal Bowel Sounds, Soft, Other (Mildly tender to palpation epigastrium no rebound or guarding) Extremities: Normal Inspection, Normal Range of Motion, Non-Tender Neurological: Alert, Oriented, CN II-XII Intact, Normal Cognition, Normal Gait, No Motor/Sensory Deficits Course - Vital Signs Last Recorded V/S: Last Vital Signs Temp 35.8 C 07/21/18 10:37 Pulse 81 07/21/18 12:28 Resp 14 07/21/18 12:28 BP 115/88 07/21/18 12:28 Pulse Ox 94 L 09/05/18 12:28 - Orders/Labs/Meds Labs: Laboratory Tests 07/21/18 07/21/18 Range/Units 11:00 11:00 WBC 9.31 (3.98-10.04) K/mm3 RBC 4.11 (3.98-5.22) M/mm3 Hgb 11.5 (11.2-15.7) gm/L Hct 36.3 (34.1-44.9) % MCV 88.3 (79.4-94.8) fl MCH 28.0 (25.6-32.2) pg MCHC 31.7 L (32.2-35.5) g/dl RDW Std Deviation 49.4 H (36.4-46.3) fL Plt Count 328 (182-369) K/mm3 MPV 9.8 (9.4-12.3) fl Neut % (Auto) 48.6 (34.0-71.1) % Lymph % (Auto) 40.9 (19.3-51.7) % [place] % (Auto) 8.8 (4.7-12.5) % Eos % (Auto) 1.2 (0.7-5.8) Baso % (Auto) 0.4 (0.1-1.2) % Neut # (Auto) 4.52 (1.56-6.13) K/mm3 Lymph # (Auto) 3.81 H (1.18-3.74) K/mm3 [place] # (Auto) 0.82 H (0.24-0.36) K/mm3 Eos # (Auto) 0.11 (0.04-0.36) K/mm3 Baso # (Auto) 0.04 (0.01-0.08) K/mm3 Sodium 143 (136-145) mEq/L Potassium 3.6 (3.5-5.1) mEq/L Chloride 105 (98-107) mEq/L Carbon Dioxide 25 (21-32) mEq/L Anion Gap 16.6 H (5-15) BUN 8 (7-18) mg/dL Creatinine 1.1 H (0.55-1.02) mg/dL Est Cr Clr Drug Dosing 71.31 mL/min Estimated GFR (MDRD) 54 (>60) mL/min BUN/Creatinine Ratio 7.3 L (14-18) Glucose 107 H (74-106) mg/dL Calcium 9.0 (8.5-10.1) mg/dL Total Bilirubin 0.3 (0.2-1.0) mg/dL AST 18 (15-37) U/L ALT 22 (14-59) U/L Alkaline Phosphatase 88 (46-116) U/L Total Protein 8.4 H (6.4-8.2) g/dl Albumin 4.0 (3.4-5.0) g/dl Globulin 4.4 gm/dL Albumin/Globulin Ratio 0.9 L (1-2) Lipase 400 H (73-393) U/L TSH 3rd Generation 76.969 H (0.358-3.74) uIU/mL Meds: Medications Discontinued Medications Generic Name Dose Route Start Last Admin Trade Name Freq PRN Reason Stop Dose Admin Diphenhydramine HCl 50 mg 07/21/18 11:03 07/21/18 11:21 Benadryl IM 07/21/18 11:04 50 mg ONETIME ONE Administration Hydromorphone HCl 1.5 mg 07/21/18 11:01 07/21/18 11:22 Dilaudid IM 07/21/18 11:02 1.5 mg ONETIME ONE Administration Promethazine HCl 37.5 mg 07/21/18 10:58 07/21/18 11:22 Phenergan IM 07/21/18 10:59 37.5 mg ONETIME ONE Administration - Re-Assessments/Exams Free Text/Narrative Re-Assessment/Exam: 07/21/18 42-year-old female with chronic pancreatitis presenting with abdominal pain. On initial exam or vital signs are normal. Physical exam notable for mild epigastric tenderness to palpation. CMP shows no abnormalities. CBC normal. Lipase is borderline elevated today. Check the patient's TSH at the request is elevated and consistent with her known endocrine problems. No acute treatment or intervention indicated at this time. Patient was treated symptomatically with the Dilaudid and Phenergan. On reassessment she noted improvement of her symptoms and tolerated by mouth intake. She is given return precautions and discharged home. She was directed to follow closely with her multiple specialists. Departure - Departure Time of Disposition: 11:58 Disposition: Home, Self-Care 01 Condition: Good Clinical Impression: Chronic pancreatitis Qualifiers: Pancreatitis type: other Qualified Code(s): K86.1 - Other chronic pancreatitis - Discharge Information *PRESCRIPTION DRUG MONITORING PROGRAM REVIEWED*: No *COPY OF PRESCRIPTION DRUG MONITORING REPORT IN PATIENT ALE: No Instructions: Chronic Pancreatitis Referrals: Rik Walls PA-C [Primary Care Provider] - Forms: ED Department Discharge Additional Instructions: You were seen today for a flare of your chronic pancreatitis. It is safe to go home at this time. Please follow up closely with your specialists as an outpatient.
[2018-07-21 12:29] VITALS: BP 115/88
== END 2018-07-21 12:05 | disposition home or self-care (01) ==
LOC: JD.ED 10:25
DX: K86.1 Other chronic pancreatitis (principal); I10 Essential (primary) hypertension; E66.9 Obesity, unspecified; E03.9 Hypothyroidism, unspecified; Z79.899 Other long term (current) drug therapy; Z88.8 Allergy status to other drugs, medicaments and biological substances; Z88.6 Allergy status to analgesic agent
CPT/HCPCS: 36415; 80053; 83690; 84443; 85025; 96372; 99284; J1170; J1200; J2550

== ENCOUNTER 2018-08-11 16:28 | Emergency (ER) | payer BC, MEDICARE ==
[2018-08-11 16:37] VITALS: BP 117/87
[2018-08-11] MEDS ORDERED: diphenhydrAMINE 50 MG/ML SDV IM ONE (17:43)
[2018-08-11] MEDS ORDERED: Dicyclomine 20 MG/2 ML SDV IM ONE (17:43)
[2018-08-11] MEDS ORDERED: Promethazine 25 MG/ML SDV IM ONE (17:43)
--- NOTE | 2018-08-11 17:55 | EDM.PDOC ---
ED HPI GENERAL MEDICAL PROBLEM - General Chief Complaint: Abdominal Pain Stated Complaint: PANCREATITIS Time Seen by Provider: 08/11/18 17:35 Source of Information: Reports: Patient, Old Records History Limitations: Reports: No Limitations - History of Present Illness INITIAL COMMENTS - FREE TEXT/NARRATIVE: 42-year-old female presents for evaluation and treatment of abdominal pain. Patient has been seen in the ER numerous occasions for her abdominal pain. She is currently complaining of pain to the epigastric area that radiates through to her back. 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 She is seeing a biliary specialist at [facility] in [place] and also pain management in [place]. Currently on methadone 5 mg twice a day. She has Zofran oral tablets at home; she states she has been taking for nausea and vomiting. Reports she has done better with the sublingual Zofran in the past. She reports the last 2 days she's been experiencing worsening pain. Reports nausea and vomiting states that she is vomiting up her medications. She did take a Zofran and a methadone this morning but vomited these up. She states she felt feverish this morning and took some Tylenol around 0700. Patient reports she was told by her pain management doctor to present to the ER for severe pain. She is here for pain management today. Abdominal Pain Score (Numeric/FACES): 9 - Related Data Allergies Allergy/AdvReac Type Severity Reaction Status Date / Time buprenorphine [From Butrans] Allergy Itching Verified 08/11/18 16:37 metoclopramide HCl Allergy Itching Verified 08/11/18 16:37 [From Reglan] NSAIDS (Non-Steroidal Allergy Abdominal Verified 08/11/18 16:37 Anti-Inflamma Pain ketorolac [From Toradol] AdvReac Bleeding Verified 08/11/18 16:37 prochlorperazine AdvReac Vomiting Verified 08/11/18 16:37 [From Compazine] Home Meds: Home Meds Gabapentin [Neurontin] 1,200 mg PO TID PRN 04/25/17 [History] Methadone 5 mg PO BID 12/29/17 [History] Naloxone HCl [Narcan] 4 mg CHELE ASDIRECTED PRN 12/29/17 [History] raNITIdine HCl [Ranitidine HCl] 75 mg PO ASDIRECTED 02/08/18 [History] Ondansetron [Zofran ODT] 4 mg PO Q6H PRN #20 tab.dis 08/11/18 [Rx] Past Medical History - Past Health History Medical/Surgical History: Denies Medical/Surgical History HEENT History: Reports: Glaucoma Cardiovascular History: Reports: Hypertension Respiratory History: 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 (See Below) Other Respiratory History: cough RLQ Gastrointestinal History: Reports: Pancreatitis, Other (See Below) Other Gastrointestinal History: chronic pancreatitis, fatty pancreas Genitourinary History: Reports: UTI, Recurrent SERVICE CASHIER History: 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 SERVICE CASHIER History: c section x3, tubes tied Musculoskeletal History: Reports: Arthritis Neurological History: 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 (See Below) Other Neuro History: pseudotumor, shunt Psychiatric History: Reports: Addiction, Anxiety, Depression Endocrine/Metabolic History: Reports: Hypothyroidism, Obesity/BMI 30+ Hematologic History: Reports: Anemia - Infectious Disease History Infectious Disease History: Reports: C-Difficile, MRSA Other Infectious Disease History: in 2006 - Past Surgical History Head Surgeries/Procedures: Reports: Shunt HEENT Surgical History: Reports: Oral Surgery GI Surgical History: Reports: Appendectomy, Bariatric Procedure, Cholecystectomy , EGD, ERCP Female Surgical History: Reports: Section, Tubal Ligation Social & Family History - Family History Family Medical History: Noncontributory Cardiac: Reports: Bypass, Hypertension, [place] Respiratory: Reports: Asthma Oncologic: Reports: Colon - Tobacco Use Smoking Status *Q: Never Smoker - Caffeine Use Caffeine Use: Reports: None Other Caffeine Use: 1 cup daily - Recreational Drug Use Recreational Drug Use: No - Living Situation & Occupation Living situation: Reports: , with Spouse Occupation: Unemployed ED ROS GENERAL - Review of Systems Review Of Systems: See Below Constitutional: Reports: Fever (reports a temp of 101.2 this monring. ) GI/Abdominal: Reports: Abdominal Pain, Nausea, Vomiting ED EXAM, GI/ABD - Physical Exam Exam: See Below Exam Limited By: No Limitations General Appearance: Alert, WD/WN, No Apparent Distress Respiratory/Chest: No Respiratory Distress, Lungs Clear, Normal Breath Sounds Cardiovascular: Normal Peripheral Pulses, Regular Rate, Rhythm, No Murmur GI/Abdominal Exam: Normal Bowel Sounds, Soft, Tender (epigastric). No: Distended, Guarding, Rigid Neurological: Alert, Oriented, Normal Cognition Psychiatric: Normal Affect, Normal Mood Skin Exam: Warm, Dry, Normal Color Course - Vital Signs Last Recorded V/S: Last Vital Signs Temp 97.1 F 08/11/18 16:35 Pulse 78 08/11/18 16:35 Resp 18 08/11/18 16:35 BP 117/87 08/11/18 16:35 Pulse Ox 100 08/11/18 16:35 - Orders/Labs/Meds Meds: Medications Discontinued Medications Generic Name Dose Route Start Last Admin Trade Name Dominic PRN Reason Stop Dose Admin Dicyclomine HCl 20 mg 08/11/18 17:43 08/11/18 17:59 Bentyl IM 08/11/18 17:44 20 mg ONETIME ONE Administration Diphenhydramine HCl 50 mg 08/11/18 17:43 08/11/18 17:57 Benadryl IM 08/11/18 17:44 50 mg ONETIME ONE Administration Promethazine HCl 25 mg 08/11/18 17:43 08/11/18 17:56 Phenergan IM 08/11/18 17:44 25 mg ONETIME ONE Administration - Re-Assessments/Exams Free Text/Narrative Re-Assessment/Exam: 08/11/18 19:14 patient was searched on the [place] prescription drug registry. She has received 54 prescriptions from 11 different prescribers within the last year for controlled substances. Most recently she received methadone 5 mg tabs #60 on 07-22-18. This is a 30 day supply. She is also received several prescriptions for clonazepam more recently. patient continues to complain of abdominal pain. She was informed when she arrived here our treatment goal today would be to control her nausea so she can take her pain medication that she has at home. She is now saying that her nausea has improved. I will discharge her home. Discharge instructions as documented. Departure - Departure Time of Disposition: 19:15 Disposition: Home, Self-Care 01 Condition: Good Clinical Impression: Abdominal pain, Drug-seeking behavior, Nausea and vomiting in adult - Discharge Information *PRESCRIPTION DRUG MONITORING PROGRAM REVIEWED*: Yes *COPY OF PRESCRIPTION DRUG MONITORING REPORT IN PATIENT ALE: No Prescriptions: Ondansetron [Zofran ODT] 4 mg PO Q6H PRN #20 tab.dis PRN Reason: Nausea Instructions: Abdominal Pain, Adult Referrals: Rik Walls PA-C [Primary Care Provider] - Forms: ED Department Discharge Additional Instructions: Take your pain medication you have at home as prescribed for pain relief. Zofran 1 tab sublingual every 6 hours prn nausea. Continue with current plan of care. Contact your pain management provider for further pain management. Please return to the ER should your symptoms change or worsen.
== END 2018-08-11 19:20 | disposition home or self-care (01) ==
LOC: JD.ED 16:28
DX: R10.13 Epigastric pain (principal); R11.2 Nausea with vomiting, unspecified; I10 Essential (primary) hypertension; Z76.5 Malingerer [conscious simulation]; Z88.8 Allergy status to other drugs, medicaments and biological substances
CPT/HCPCS: 96372; 99284; J0500; J1200; J2550

== ENCOUNTER 2018-08-14 08:21 | Emergency (ER) | payer BC, MEDICARE ==
[2018-08-14 08:32] VITALS: BP 114/72
[2018-08-14] MEDS ORDERED: oxyCODONE 5 MG Tab PO ONE (08:55)
[2018-08-14] MEDS ORDERED: Promethazine 25 MG/ML SDV IM ONE (08:55)
[2018-08-14] MEDS ORDERED: Ondansetron 4 MG Tab.DIS PO ONE (08:55)
--- NOTE | 2018-08-14 08:57 | EDM.PDOC ---
<MaribelRichelle - Last Filed: 08/14/18 09:06> ED HPI GENERAL MEDICAL PROBLEM - General Chief Complaint: Abdominal Pain Stated Complaint: ABDOMINAL PAIN Time Seen by Provider: 08/14/18 08:29 - History of Present Illness INITIAL COMMENTS - FREE TEXT/NARRATIVE: Brisa is a pleasant 42-year-old woman with stated history of chronic pancreatitis who follows with the [facility] for her condition. She presents this morning with pain in her mid-back and epigastrium, unchanged from previous episodes. Brisa is not concerned about a flare of her pancreatitis and does not wish to have labs or imaging performed. She is on methadone for pain control and reports she has been vomiting her pain medication over the past two days. She has a prescription for PO Zofran and states it hasn't been helpful because it is not the sublingual type and she has been unable to take it without vomiting. She has tried oral benadryl at home to "take the edge off the pain." - Related Data Allergies Allergy/AdvReac Type Severity Reaction Status Date / Time buprenorphine [From Butrans] Allergy Itching Verified 08/14/18 08:29 metoclopramide HCl Allergy Itching Verified 08/14/18 08:29 [From Reglan] NSAIDS (Non-Steroidal Allergy Abdominal Verified 08/14/18 08:29 Anti-Inflamma Pain ketorolac [From Toradol] AdvReac Bleeding Verified 08/14/18 08:29 prochlorperazine AdvReac Vomiting Verified 08/14/18 08:29 [From Compazine] Home Meds: Home Meds Gabapentin [Neurontin] 1,200 mg PO TID PRN 04/25/17 [History] Methadone 5 mg PO BID 12/29/17 [History] Naloxone HCl [Narcan] 4 mg CHELE ASDIRECTED PRN 12/29/17 [History] raNITIdine HCl [Ranitidine HCl] 75 mg PO ASDIRECTED 02/08/18 [History] Ondansetron [Zofran ODT] 4 mg PO Q6H PRN #20 tab.dis 08/11/18 [Rx] Ondansetron [Zofran ODT] 4 mg PO Q4HR PRN #30 tab.dis 08/14/18 [Rx] ED ROS GENERAL - Review of Systems Review Of Systems: ROS reveals no pertinent complaints other than HPI. ED EXAM, GI/ABD - Physical Exam Text/Narrative:: Pt appears comfortable and non-toxic. Sitting in bed, watching TV. Exam Limited By: No Limitations General Appearance: Alert, Mild Distress Respiratory/Chest: Lungs Clear, Normal Breath Sounds Cardiovascular: Normal Peripheral Pulses, Regular Rate, Rhythm, No Murmur GI/Abdominal Exam: Normal Bowel Sounds, Soft, Tender (moderate tenderness in epigastrium) Extremities: Normal Inspection, Normal Range of Motion, Non-Tender Psychiatric: Anxious Course - Vital Signs Last Recorded V/S: Last Vital Signs Temp 36.6 C 08/14/18 08:29 Pulse 70 08/14/18 08:29 Resp 15 08/14/18 08:29 BP 114/72 08/14/18 08:29 Pulse Ox 100 08/14/18 08:29 - Orders/Labs/Meds Meds: Medications Discontinued Medications Generic Name Dose Route Start Last Admin Trade Name Freq PRN Reason Stop Dose Admin Ondansetron HCl 8 mg 08/14/18 08:55 08/14/18 09:08 Zofran Odt PO 08/14/18 08:56 8 mg ONETIME ONE Administration Oxycodone HCl 5 mg 08/14/18 08:55 08/14/18 09:08 Oxycodone PO 08/14/18 08:56 5 mg ONETIME ONE Administration Promethazine HCl 25 mg 08/14/18 08:55 08/14/18 09:08 Phenergan IM 08/14/18 08:56 25 mg ONETIME ONE Administration Departure - Departure Disposition: Home, Self-Care 01 Clinical Impression: Abdominal pain Qualifiers: Abdominal location: generalized Qualified Code(s): R10.84 - Generalized abdominal pain - Discharge Information Prescriptions: Ondansetron [Zofran ODT] 4 mg PO Q4HR PRN #30 tab.dis PRN Reason: Nausea Instructions: Abdominal Pain, Adult Referrals: Rik Walls PA-C [Primary Care Provider] - Forms: ED Department Discharge Additional Instructions: 1. Take zofran as needed for nausea 2. Continue your usual medications for pain 3. Follow up with Rik as soon as possible 4. Return to the ED as needed for severe pain, multiple episodes of vomiting without keeping liquids down, fever, or other concerning symptoms <Marlon Barrios - Last Filed: 08/14/18 13:36> ED HPI GENERAL MEDICAL PROBLEM - General Source of Information: Reports: Patient History Limitations: Reports: No Limitations Abdominal Pain Score (Numeric/FACES): 9 Past Medical History - Past Health History Medical/Surgical History: Denies Medical/Surgical History HEENT History: Reports: Glaucoma Cardiovascular History: Reports: Hypertension Respiratory History: 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 (See Below) Other Respiratory History: cough RLQ Gastrointestinal History: Reports: Pancreatitis, Other (See Below) Other Gastrointestinal History: chronic pancreatitis, fatty pancreas Genitourinary History: Reports: UTI, Recurrent 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: 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: c section x3, tubes tied Musculoskeletal History: Reports: Arthritis Neurological History: 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 (See Below) Other Neuro History: pseudotumor, shunt Psychiatric History: Reports: Addiction, Anxiety, Depression Endocrine/Metabolic History: Reports: Hypothyroidism, Obesity/BMI 30+ Hematologic History: Reports: Anemia - Infectious Disease History Infectious Disease History: Reports: C-Difficile, MRSA Other Infectious Disease History: in 2006 - Past Surgical History Head Surgeries/Procedures: Reports: Shunt HEENT Surgical History: Reports: Oral Surgery GI Surgical History: Reports: Appendectomy, Bariatric Procedure, Cholecystectomy , EGD, ERCP Female Surgical History: Reports: Section, Tubal Ligation Social & Family History - Family History Family Medical History: Noncontributory Cardiac: Reports: Bypass, Hypertension, [place] Respiratory: Reports: Asthma Oncologic: Reports: Colon - Tobacco Use Smoking Status *Q: Never Smoker - Caffeine Use Caffeine Use: Reports: None Other Caffeine Use: 1 cup daily - Recreational Drug Use Recreational Drug Use: No - Living Situation & Occupation Living situation: Reports: , with Spouse Occupation: Unemployed ED ROS GENERAL - Review of Systems Review Of Systems: See Below Constitutional: Denies: Fever Respiratory: Denies: Shortness of Breath Cardiovascular: Denies: Chest Pain GI/Abdominal: Reports: Abdominal Pain Neurological: Reports: No Symptoms ED EXAM, GI/ABD - Physical Exam Exam: See Below General Appearance: WD/WN Eyes: Bilateral: Normal Appearance Ears: Normal External Exam Nose: Normal Inspection Throat/Mouth: Normal Inspection, Normal Oropharynx, Normal Voice, No Airway Compromise Head: Atraumatic, Normocephalic Neck: Normal Inspection Respiratory/Chest: No Respiratory Distress, No Accessory Muscle Use Neurological: Alert, Oriented, Normal Cognition, No Motor/Sensory Deficits Skin Exam: Warm, Dry, Intact, Normal Color, No Rash Course - Orders/Labs/Meds Meds: Medications Discontinued Medications Generic Name Dose Route Start Last Admin Trade Name Dominic PRN Reason Stop Dose Admin Ondansetron HCl 8 mg 08/14/18 08:55 08/14/18 09:08 Zofran Odt PO 08/14/18 08:56 8 mg ONETIME ONE Administration Oxycodone HCl 5 mg 08/14/18 08:55 08/14/18 09:08 Oxycodone PO 08/14/18 08:56 5 mg ONETIME ONE Administration Promethazine HCl 25 mg 08/14/18 08:55 08/14/18 09:08 Phenergan IM 08/14/18 08:56 25 mg ONETIME ONE Administration - Re-Assessments/Exams Free Text/Narrative Re-Assessment/Exam: 08/14/18 13:36 Snowflake better after phenergan, zofran, and 1 tab oxycodone. will dc, no rx. Departure - Departure Time of Disposition: 09:24
== END 2018-08-14 09:35 | disposition home or self-care (01) ==
LOC: JD.ED 08:21
DX: R10.84 Generalized abdominal pain (principal); I10 Essential (primary) hypertension; E03.9 Hypothyroidism, unspecified; Z79.899 Other long term (current) drug therapy; Z88.8 Allergy status to other drugs, medicaments and biological substances; Z88.6 Allergy status to analgesic agent
CPT/HCPCS: 96372; 99283; A9270; J2550

== ENCOUNTER 2018-11-11 09:33 | Emergency (ER) | payer MEDICARE, BC ==
[2018-11-11 09:48] VITALS: BP 127/92
[2018-11-11] MEDS ORDERED: Ketorolac 60 MG/2 ML SDV IM ONE (10:40)
[2018-11-11] MEDS ORDERED: Dicyclomine 10 MG Cap PO ONE (10:40)
[2018-11-11] MEDS ORDERED: Promethazine 25 MG/ML SDV IM ONE (10:41)
--- NOTE | 2018-11-11 12:17 | EDM.PDOC ---
ED HPI GENERAL MEDICAL PROBLEM - General Chief Complaint: Abdominal Pain Stated Complaint: CORITSOL LEVELS ARE LOW Time Seen by Provider: 11/11/18 10:39 Source of Information: Reports: Patient, RN Notes Reviewed - History of Present Illness INITIAL COMMENTS - FREE TEXT/NARRATIVE: 43 old female comes in with left upper abdominal pain. She's been having this on and off for at least the last week or so. There've been multiple visits to the ED S past 8-10 days. She states the pain is left upper abdomen with some radiation to her back. She has had some nausea and vomiting. No fever or chills. No chest pain or difficulty breathing. Similar to what she is had in the past off and on for the past several years. There does appear to be some doctor shopping. She has registered a couple of times this past week and then left prior to being seen. Left Middle Abdominal Pain Score (Numeric/FACES): 9 - Related Data Allergies Allergy/AdvReac Type Severity Reaction Status Date / Time buprenorphine [From Butrans] Allergy Itching Verified 11/11/18 09:42 metoclopramide HCl Allergy Itching Verified 11/11/18 09:42 [From Reglan] NSAIDS (Non-Steroidal Allergy Abdominal Verified 11/11/18 09:42 Anti-Inflamma Pain ketorolac [From Toradol] AdvReac Bleeding Verified 11/11/18 09:42 prochlorperazine AdvReac Vomiting Verified 11/11/18 09:42 [From Compazine] Home Meds: Home Meds Gabapentin [Neurontin] 1,200 mg PO TID PRN 04/25/17 [History] Naloxone HCl [Narcan] 4 mg CHELE ASDIRECTED PRN 12/29/17 [History] raNITIdine HCl [Ranitidine HCl] 75 mg PO DAILY 02/08/18 [History] Ondansetron [Zofran ODT] 4 mg PO Q6H PRN #20 tab.dis 08/11/18 [Rx] Levothyroxine 200 mcg PO ACBREAKFAST 10/09/18 [History] Hydrocortisone [Cortef] 10 g PO BEDTIME 11/05/18 [History] Hydrocortisone [Cortef] 20 mg PO QAM 11/05/18 [History] Past Medical History - Past Health History Medical/Surgical History: Denies Medical/Surgical History HEENT History: Reports: Glaucoma Cardiovascular History: Reports: Hypertension Respiratory History: 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 (See Below) Other Respiratory History: cough RLQ Gastrointestinal History: Reports: Pancreatitis, Other (See Below) Other Gastrointestinal History: chronic pancreatitis, fatty pancreas Genitourinary History: Reports: UTI, Recurrent ACADEMIC SPECIALIST History: 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 ACADEMIC SPECIALIST History: c section x3, tubes tied Musculoskeletal History: Reports: Arthritis, Fracture Neurological History: 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 (See Below) Other Neuro History: pseudotumor, shunt Psychiatric History: Reports: Addiction, Anxiety, Depression 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, Hypothyroidism, Obesity /BMI 30+ Hematologic History: Reports: Anemia - Infectious Disease History Infectious Disease History: Reports: C-Difficile, MRSA Other Infectious Disease History: in 2006 - Past Surgical History Head Surgeries/Procedures: Reports: Shunt HEENT Surgical History: Reports: Oral Surgery GI Surgical History: Reports: Appendectomy, Bariatric Procedure, Cholecystectomy , EGD, ERCP Female Surgical History: Reports: Section, Tubal Ligation Social & Family History - Family History Family Medical History: Noncontributory Cardiac: Reports: Bypass, Hypertension, [place] Respiratory: Reports: Asthma Oncologic: Reports: Colon - Tobacco Use Smoking Status *Q: Never Smoker Second Hand Smoke Exposure: No - Caffeine Use Caffeine Use: Reports: Coffee Other Caffeine Use: 1 cup daily - Recreational Drug Use Recreational Drug Use: No - Living Situation & Occupation Living situation: Reports: , with Spouse Occupation: Unemployed ED ROS GENERAL - Review of Systems Review Of Systems: See Below HEENT: Reports: No Symptoms Respiratory: Denies: Shortness of Breath Cardiovascular: Denies: Chest Pain GI/Abdominal: Reports: Abdominal Pain, Nausea, Vomiting. Denies: Diarrhea ( Left upper abdomen) Musculoskeletal: Reports: Back Pain Skin: Reports: No Symptoms Neurological: Reports: No Symptoms ED EXAM, GI/ABD - Physical Exam Exam: See Below General Appearance: Alert, No Apparent Distress Throat/Mouth: Normal Inspection Neck: Supple, Full Range of Motion Respiratory/Chest: No Respiratory Distress, Lungs Clear, Normal Breath Sounds Cardiovascular: Regular Rate, Rhythm GI/Abdominal Exam: Soft, Tender (There is tenderness of the left upper abdomen. Remainder of abdomen completely soft and nontender). No: Guarding, Rebound Back Exam: No: CVA Tenderness (L), CVA Tenderness (R) Extremities: Normal Inspection Neurological: Alert, Oriented, No Motor/Sensory Deficits Skin Exam: Warm, Dry, Normal Color Course - Vital Signs Last Recorded V/S: Last Vital Signs Temp 97.1 F 11/11/18 09:35 Pulse 78 11/11/18 09:35 Resp 16 11/11/18 09:35 BP 127/92 H 11/11/18 09:35 Pulse Ox 100 11/11/18 09:35 - Orders/Labs/Meds Meds: Medications Discontinued Medications Generic Name Dose Route Start Last Admin Trade Name Dominic PRN Reason Stop Dose Admin Dicyclomine HCl 20 mg 11/11/18 10:40 11/11/18 11:49 Bentyl PO 11/11/18 10:41 20 mg ONETIME ONE Administration Ketorolac Tromethamine 60 mg 11/11/18 10:40 11/11/18 11:51 Toradol IM 11/11/18 10:41 60 mg ONETIME ONE Administration Promethazine HCl 25 mg 11/11/18 10:41 11/11/18 11:50 Phenergan IM 11/11/18 10:42 25 mg ONETIME ONE Administration - Re-Assessments/Exams Free Text/Narrative Re-Assessment/Exam: 11/11/18 12:16 Went to check on patient, I have been very busy with 3 cardiacs and also one trauma so it is been a while since she received her meds, since I first saw her. The room was empty, she was gone. She was treated with Toradol IM, Phenergan IM, Reglan by mouth. Her nurse was not aware that she had left. 11/11/18 19:34. Of note she had normal labs just a few days ago so I did not repeat labs today. Departure - Departure Time of Disposition: 12:18 Disposition: Home, Self-Care 01 Preliminary Cause of *Q: Sepsis & Multi System Organ Failure Clinical Impression: Abdominal pain Qualifiers: Abdominal location: left upper quadrant Qualified Code(s): R10.12 - Left upper quadrant pain - Discharge Information Instructions: Abdominal Pain, Adult, [id number] Referrals: Rik Walls PA-C [Primary Care Provider] - Forms: ED Department Discharge
== END 2018-11-11 12:16 | disposition home or self-care (01) ==
LOC: JD.ED 09:33
DX: R10.12 Left upper quadrant pain (principal); I10 Essential (primary) hypertension; F41.9 Anxiety disorder, unspecified; F32.9 Major depressive disorder, single episode, unspecified; E03.9 Hypothyroidism, unspecified; Z79.899 Other long term (current) drug therapy; Z88.8 Allergy status to other drugs, medicaments and biological substances; Z88.6 Allergy status to analgesic agent
CPT/HCPCS: 96372; 99284; A9270; J1885; J2550

== ENCOUNTER 2018-11-14 18:55 | Emergency (ER) | payer MEDICARE, BC ==
[2018-11-14 19:46] VITALS: BP 132/87
[2018-11-14] MEDS ORDERED: Dicyclomine 20 MG/2 ML SDV IM ONE (22:09)
[2018-11-14] MEDS ORDERED: Ondansetron 4 MG Tab.DIS PO ONE (22:10)
[2018-11-14] MEDS ORDERED: Ketorolac 60 MG/2 ML SDV IM ONE (22:11)
[2018-11-14] MEDS ORDERED: diphenhydrAMINE 25 MG Cap PO ONE (22:58)
--- NOTE | 2018-11-15 03:47 | ER ---
REASON FOR EMERGENCY ROOM VISIT: Abdominal pain x1 week. HISTORY OF PRESENT ILLNESS: This patient has an extensive history of multiple emergency room visits for a myriad of problems most of which center around pain issues and her desire to procure opiates. She has an impressive rather exhaustive list of multiple opiate prescriptions from multiple providers in [place] and even in [place]. This evening, she comes in to the emergency department complaining of left-sided abdominal pain x1 week. She states she has vomited twice today. She describes her pain as located in the mid abdomen and it hurts with moving, it is not associated with any fever or chills. She states she has had this pain multiple times over the past year and feels that it is somehow related to her adrenal crisis, a chief complaint for which she has been seen innumerable times. The patient's past medical history with regard to possible pancreatitis and adrenal insufficiency is exhaustively catalogued and documented in her electronic medical record. This was all reviewed. She has had multiple visits to the emergency department throughout the course of this month. For details, see her electronic medical record. There have been innumerous concern expressed in her documentation that she appears to be doing some doctor shopping and there is obvious concerns that she exhibits narcotic-seeking behavior. I have reviewed the documentation of her [facility] report which details all of the narcotics and other medication she has been prescribed. She has used probably 30 pharmacies and roughly 50 providers over the past few years. CURRENT MEDICATIONS: Home medications include gabapentin, ranitidine, Zofran, levothyroxine, and hydrocortisone. PAST MEDICAL HISTORY: Significant for: 1. Glaucoma. 2. Hypertension. 3. Chronic pancreatitis. 4. UTI. 5. History of . 6. Arthritis. 7. History of pseudotumor. 8. History of anxiety and depression. 9. [place]'s disease. 10.Hypothyroidism. 11.Obesity. 12.Anemia. 13.History of C. difficile diarrhea. PAST SURGICAL HISTORY: 1. Appendectomy. 2. Bariatric surgery. 3. Cholecystectomy. 4. Endoscopies. 5. C-sections. 6. Tubal ligation. SOCIAL HISTORY: She is , lives with her . They live up approximately 60 miles away. REVIEW OF SYSTEMS: Pertinent positives and negatives as listed in the HPI. PHYSICAL EXAMINATION: GENERAL: She is reasonably pleasant and she is in no acute distress. VITAL SIGNS: Blood pressure 114/68. She has no orthostatic changes of significance, respiratory rate 20, and O2 saturations 100%. She is afebrile. HEENT: Eyes: No scleral icterus. Poor oral dentition with multiple teeth missing. NECK: Supple. No adenopathy. No JVD. CHEST: Clear to auscultation. CARDIAC: Regular rate without murmur. ABDOMEN: Obese and soft. She has minimal tenderness to deep palpation in her left flank area. There is no guarding or rebound. No percussion tenderness. No palpable mass nor hepatosplenomegaly. EXTREMITIES: Normal pulses. No edema. LABORATORY DATA: She has a hemoglobin of 10. This is a chronic anemia and has been present previously. Her WBC 7900. Her sodium is 143, potassium 3.4, chloride 108, CO2 is 27, anion gap 11.4, and creatinine 0.9. Her liver enzymes are normal. Estimated GFR is greater than 60. COURSE IN THE EMERGENCY ROOM: Further Emergency Room Course: She was observed for over 3 hours and did not have any vomiting episodes. I did not feel that an IV fluids is necessary. She has had this complaint off and on now for a long period of time at least over this past month and even prior to that. I reassured her that she can take some Zofran. We gave her Bentyl 20 mg IM as well as Toradol 60 mg IM. She did request Benadryl and she was given 1 Benadryl tablet 50 mg. I informed the that Benadryl can be obtained [id number] and the [facility] is open now. All questions were answered. I explained to them that given her circumstances and her extreme need for pain medications so forth, her best long- term prospects would be that she establish and maintain a relationship with 1 physician. She did have a pain contract in the past, but for some reason that contract has been nullified. All questions were answered. They understand and agreed with this plan. MADELINE /[id number]
--- NOTE | 2018-11-30 06:48 | ER ---
ADDENDUM: DATE OF DICTATION: 11/14/2018. FINAL IMPRESSION: 1. Abdominal pain. 2. Drug-seeking behavior. MMODAL /[id number]
== END 2018-11-14 23:06 | disposition home or self-care (01) ==
LOC: JD.ED 18:55
DX: R10.9 Unspecified abdominal pain (principal); Z76.5 Malingerer [conscious simulation]; E66.9 Obesity, unspecified; Z68.34 Body mass index [BMI] 34.0-34.9, adult; I10 Essential (primary) hypertension
CPT/HCPCS: 36415; 80053; 85025; 96372; 99284; A9270; J0500; J1885; 99283

== ENCOUNTER 2018-12-18 15:30 | Emergency (ER) | payer MEDICARE, BC ==
[2018-12-18 15:48] VITALS: BP 125/81
[2018-12-18] MEDS ORDERED: Iopamidol 612 MG/ML 100 ML Bottle IVPUSH ONE (16:16)
[2018-12-18] MEDS ORDERED: Sodium Chloride 0.9% 10 ML Syringe FLUSH ONE (16:16)
--- NOTE | 2018-12-18 16:17 | EDM.PDOC ---
ED HPI GENERAL MEDICAL PROBLEM - General Chief Complaint: General Stated Complaint: ADRENAL CRISIS Time Seen by Provider: 12/18/18 16:00 Source of Information: Reports: Patient History Limitations: Reports: No Limitations - History of Present Illness INITIAL COMMENTS - FREE TEXT/NARRATIVE: Patient is a 43-year-old female who presents to the ED complaining of left lower chest pain, left-sided facial pain, and left upper abdominal pain. Patient states she's recently was diagnosed with adrenal insufficiency and has been started on hydrocortisone. Over the past week patient has been falling. They suspect this is related to the adrenal insufficiency. Patient states today she lost her balance fell into the dryer hitting the left side of her lower chest and upper abdomen and face on the dryer. She did not have any loss of consciousness. She denies any neck or back pain. There is no vision changes, severe headache, n/t to extremities, nausea, sob, chest pain at rest, or any additional complaints. Pain does worsen with palpation and also taking a deep breath. She was evaluated yesterday for similar complaints of falling at home landing on her right side. Patient received blood work, x-ray of the right shoulder. X-ray of the right shoulder did not reveal any concerning findings. Labs indicated elevated white blood cell count of 10.75. Hemoglobin was low at 10.6. Creatinine was slightly elevated at 1.1. Troponin was negative. CT of the head showed intraventricular shunt catheter other incidental findings which are stable. Nothing acute was appreciated on noncontrast head CT exam. This was obtained since patient had some slurred speech and some balance problems. Patient states since being diagnosed with adrenal insufficiency this has been a common issue for her. Patient is on hydrocortisone, gabapentin, Synthroid, Zofran, clonazepam. Patient received 1.5 milligrams of IV Dilaudid yesterday. Patient denies using any other narcotics. She presents to the ED with slurred speech to which patient states is chronic. Left Thoracic Pain Score (Numeric/FACES): 8 - Related Data Allergies Allergy/AdvReac Type Severity Reaction Status Date / Time buprenorphine [From Butrans] Allergy Itching Verified 12/18/18 15:42 metoclopramide HCl Allergy Itching Verified 12/18/18 15:42 [From Reglan] NSAIDS (Non-Steroidal Allergy Abdominal Verified 12/18/18 15:42 Anti-Inflamma Pain ketorolac [From Toradol] AdvReac Bleeding Verified 12/18/18 15:42 prochlorperazine AdvReac Vomiting Verified 12/18/18 15:42 [From Compazine] Home Meds: Home Meds Gabapentin [Neurontin] 1,200 mg PO TID PRN 04/25/17 [History] Naloxone HCl [Narcan] 4 mg CHELE ASDIRECTED PRN 12/29/17 [History] raNITIdine HCl [Ranitidine HCl] 75 mg PO DAILY 02/08/18 [History] Ondansetron [Zofran ODT] 4 mg PO Q6H PRN #20 tab.dis 08/11/18 [Rx] Levothyroxine 200 mcg PO ACBREAKFAST 10/09/18 [History] Hydrocortisone [Cortef] 10 g PO BEDTIME 11/05/18 [History] Hydrocortisone [Cortef] 20 mg PO QAM 11/05/18 [History] clonazePAM [Klonopin] 1 mg PO BEDTIME 11/14/18 [History] Hydrocortisone 20 mg PO BID #20 tablet 12/17/18 [Rx] Past Medical History - Past Health History Medical/Surgical History: Denies Medical/Surgical History HEENT History: Reports: Glaucoma Cardiovascular History: Reports: Hypertension Respiratory History: 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 (See Below) Other Respiratory History: cough RLQ Gastrointestinal History: Reports: Pancreatitis, Other (See Below) Other Gastrointestinal History: chronic pancreatitis, fatty pancreas ; addisons disease Genitourinary History: Reports: UTI, Recurrent WATER TRAINER History: 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 WATER TRAINER History: c section x3, tubes tied Musculoskeletal History: Reports: Arthritis, Fracture Neurological History: 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 (See Below) Other Neuro History: pseudotumor, shunt Psychiatric History: Reports: Addiction, Anxiety, Depression Endocrine/Metabolic History: Reports: [place]'s Disease, Hypothyroidism, Obesity /BMI 30+ Hematologic History: Reports: Anemia - Infectious Disease History Infectious Disease History: Reports: C-Difficile, MRSA Other Infectious Disease History: in 2006 - Past Surgical History Head Surgeries/Procedures: Reports: Shunt HEENT Surgical History: Reports: Oral Surgery GI Surgical History: Reports: Appendectomy, Bariatric Procedure, Cholecystectomy , EGD, ERCP Female Surgical History: Reports: Section, Tubal Ligation Social & Family History - Family History Family Medical History: Noncontributory Cardiac: Reports: Bypass, Hypertension, [place] Respiratory: Reports: Asthma Oncologic: Reports: Colon - Tobacco Use Smoking Status *Q: Never Smoker Second Hand Smoke Exposure: No - Caffeine Use Caffeine Use: Reports: None Other Caffeine Use: 1 cup daily - Recreational Drug Use Recreational Drug Use: No - Living Situation & Occupation Living situation: Reports: , with Spouse Occupation: Unemployed ED ROS GENERAL - Review of Systems Review Of Systems: ROS reveals no pertinent complaints other than HPI. ED EXAM, GENERAL - Physical Exam Exam: See Below Exam Limited By: Other (Slurred speech appears under the influence of sedating medication. Per patient this is chronic.) General Appearance: Alert, WD/WN, No Apparent Distress Eye Exam: Bilateral Eye: EOMI, Nystagmus (None noted), PERRL, Vision Changes ( None noted) Ears: Hearing Grossly Normal Nose: Normal Inspection, Normal Mucosa, No Blood Throat/Mouth: Normal Inspection, Normal Oropharynx, Normal Voice, No Airway Compromise Head: Atraumatic, Normocephalic Neck: Normal Inspection, Supple, Non-Tender, Full Range of Motion Respiratory/Chest: No Respiratory Distress, Lungs Clear, Normal Breath Sounds, No Accessory Muscle Use, Other (Along the left anterior/lateral chest border.) Cardiovascular: Normal Peripheral Pulses, Regular Rate, Rhythm, No Murmur Peripheral Pulses: 2+: Radial (L), Radial (R) GI/Abdominal: Normal Bowel Sounds, Soft, No Organomegaly, No Distention, Tender (Left upper quadrant) Back Exam: Normal Inspection. No: CVA Tenderness (L), CVA Tenderness (R), Paraspinal Tenderness, Vertebral Tenderness Extremities: Normal Inspection, Normal Range of Motion, Non-Tender Neurological: Alert, Oriented, CN II-XII Intact, Normal Cognition, No Motor/ Sensory Deficits Psychiatric: Normal Affect, Normal Mood Skin Exam: Warm, Dry, Intact, Normal Color Course - Vital Signs Last Recorded V/S: Last Vital Signs Temp 98.1 F 12/18/18 15:45 Pulse 75 12/18/18 15:45 Resp 16 12/18/18 15:45 BP 125/81 12/18/18 15:45 Pulse Ox 97 12/18/18 15:45 - Orders/Labs/Meds Orders: Active Orders 24 hr Category Date Time Status Chest 1V Frontal [CR] Stat Exams 12/18/18 16:05 Taken Labs: Laboratory Tests 12/18/18 12/18/18 12/18/18 Range/Units 16:25 16:25 16:35 WBC 9.51 (3.98-10.04) K/mm3 RBC 3.73 L (3.98-5.22) M/mm3 Hgb 9.8 L (11.2-15.7) gm/L Hct 32.0 L (34.1-44.9) % MCV 85.8 (79.4-94.8) fl MCH 26.3 (25.6-32.2) pg MCHC 30.6 L (32.2-35.5) g/dl RDW Std Deviation 50.7 H (36.4-46.3) fL Plt Count 251 (182-369) K/mm3 MPV 10.6 (9.4-12.3) fl Neutrophils % (Manual) 57 (40-60) % Band Neutrophils % 0 (0-10) % Lymphocytes % (Manual) 37 (20-40) % Atypical Lymphs % 0 % Monocytes % (Manual) 5 (2-10) % Eosinophils % (Manual) 0 L (0.7-5.8) % Basophils % (Manual) 1 (0.1-1.2) Platelet Estimate Adequate Plt Morphology Comment Normal Hypochromasia 1+ slight Anisocytosis 1+ slight RBC Morph Comment Not Reportable Sodium (136-145) mEq/L Potassium (3.5-5.1) mEq/L Chloride (98-107) mEq/L Carbon Dioxide (21-32) mEq/L Anion Gap (5-15) BUN (7-18) mg/dL Creatinine (0.55-1.02) mg/dL Est Cr Clr Drug Dosing mL/min Estimated GFR (MDRD) (>60) mL/min BUN/Creatinine Ratio (14-18) Glucose (74-106) mg/dL Calcium (8.5-10.1) mg/dL Total Bilirubin (0.2-1.0) mg/dL AST (15-37) U/L ALT (14-59) U/L Alkaline Phosphatase (46-116) U/L Total Protein (6.4-8.2) g/dl Albumin (3.4-5.0) g/dl Globulin gm/dL Albumin/Globulin Ratio (1-2) Urine Color Yellow (Yellow) Urine Appearance Clear (Clear) Urine pH 6.0 (5.0-8.0) Ur Specific [place] > or = 1.030 (1.005-1.030) Urine Protein Trace H (Negative) Urine Glucose (UA) Negative (Negative) Urine Ketones Trace H (Negative) Urine Occult Blood Negative (Negative) Urine Nitrite Negative (Negative) Urine Bilirubin Negative (Negative) Urine Urobilinogen 0.2 (0.2-1.0) Ur Leukocyte Esterase Negative (Negative) Urine RBC Not seen (0-5) /hpf Urine WBC 0-5 (0-5) /hpf Ur Epithelial Cells 20-30 H (0-5) /hpf Calcium Oxalate Crystal Many H (NONE) Urine Bacteria Few (FEW) /hpf Urine Mucus Moderate H (FEW) /hpf Urine Opiates Screen Presumptive positive H (MFMIOB=780) Ur Buprenorphine Scrn Negative (CUTOFF=10) Ur Oxycodone Screen Negative (PNF9QT=375) Urine Methadone Screen Presumptive positive H (SOIZLH=231) Ur Propoxyphene Screen Negative (CXKQZV=382) Ur Barbiturates Screen Negative (KWOMWK=704) Ur Tricyclics Screen Presumptive positive H (TKRRKP=781) Ur Phencyclidine Scrn Negative (CUTOFF=25) Ur Amphetamine Screen Negative (ONLXAI=745) U Methamphetamines Scrn Negative (RSGAGI=907) U Benzodiazepines Scrn Presumptive positive H (VXALOJ=673) U Cocaine Metab Screen Negative (PQNWWJ=654) U Marijuana (THC) Screen Negative (CUTOFF=50) 12/18/18 Range/Units 16:35 WBC (3.98-10.04) K/mm3 RBC (3.98-5.22) M/mm3 Hgb (11.2-15.7) gm/L Hct (34.1-44.9) % MCV (79.4-94.8) fl MCH (25.6-32.2) pg MCHC (32.2-35.5) g/dl RDW Std Deviation (36.4-46.3) fL Plt Count (182-369) K/mm3 MPV (9.4-12.3) fl Neutrophils % (Manual) (40-60) % Band Neutrophils % (0-10) % Lymphocytes % (Manual) (20-40) % Atypical Lymphs % % Monocytes % (Manual) (2-10) % Eosinophils % (Manual) (0.7-5.8) % Basophils % (Manual) (0.1-1.2) Platelet Estimate Plt Morphology Comment Hypochromasia Anisocytosis RBC Morph Comment Sodium 145 (136-145) mEq/L Potassium 3.8 (3.5-5.1) mEq/L Chloride 109 H (98-107) mEq/L Carbon Dioxide 28 (21-32) mEq/L Anion Gap 11.8 (5-15) BUN 13 (7-18) mg/dL Creatinine 1.0 (0.55-1.02) mg/dL Est Cr Clr Drug Dosing 77.63 mL/min Estimated GFR (MDRD) > 60 (>60) mL/min BUN/Creatinine Ratio 13.0 L (14-18) Glucose 92 (74-106) mg/dL Calcium 8.6 (8.5-10.1) mg/dL Total Bilirubin 0.1 L (0.2-1.0) mg/dL AST 13 L (15-37) U/L ALT 19 (14-59) U/L Alkaline Phosphatase 64 (46-116) U/L Total Protein 7.4 (6.4-8.2) g/dl Albumin 3.3 L (3.4-5.0) g/dl Globulin 4.1 gm/dL Albumin/Globulin Ratio 0.8 L (1-2) Urine Color (Yellow) Urine Appearance (Clear) Urine pH (5.0-8.0) Ur Specific [place] (1.005-1.030) Urine Protein (Negative) Urine Glucose (UA) (Negative) Urine Ketones (Negative) Urine Occult Blood (Negative) Urine Nitrite (Negative) Urine Bilirubin (Negative) Urine Urobilinogen (0.2-1.0) Ur Leukocyte Esterase (Negative) Urine RBC (0-5) /hpf Urine WBC (0-5) /hpf Ur Epithelial Cells (0-5) /hpf Calcium Oxalate Crystal (NONE) Urine Bacteria (FEW) /hpf Urine Mucus (FEW) /hpf Urine Opiates Screen (BSEWMB=185) Ur Buprenorphine Scrn (CUTOFF=10) Ur Oxycodone Screen (LLY5OK=561) Urine Methadone Screen (OJTLJE=049) Ur Propoxyphene Screen (GPJHSN=982) Ur Barbiturates Screen (WHKXEO=426) Ur Tricyclics Screen (RYWUHX=122) Ur Phencyclidine Scrn (CUTOFF=25) Ur Amphetamine Screen (WSLMRQ=773) U Methamphetamines Scrn (EAIMUR=581) U Benzodiazepines Scrn (DLJGVO=525) U Cocaine Metab Screen (MZYEXH=493) U Marijuana (THC) Screen (CUTOFF=50) Meds: Medications Discontinued Medications Generic Name Dose Route Start Last Admin Trade Name Dominic PRN Reason Stop Dose Admin Iopamidol 100 ml 12/18/18 16:16 12/18/18 17:16 Isovue-300 (61%) IVPUSH 12/18/18 16:17 100 ml ONETIME ONE Administration Sodium Chloride 10 ml 12/18/18 16:16 12/18/18 17:16 Saline Flush FLUSH 12/18/18 16:17 10 ml ONETIME ONE Administration - Re-Assessments/Exams Free Text/Narrative Re-Assessment/Exam: I have reviewed previous ED visit yesterday December 17, 2018. I've offered to obtain CT of the head. Patient has refused. Patient does not appear in acute distress. No focal neurological deficits noted on examination. She does have discomfort to the left lower chest border and left upper quadrant abdomen palpation. No bruising, bony abdomen abnormalities, abrasions, or swelling noted. I will obtain basic labs including CBC, chem 14, UA, urine drug screen, and CT the abdomen and pelvis with IV contrast to evaluate for splenic injury. Chest x-ray one view has been obtained as well. Patient was advised she will not receive any IV or oral narcotics. Labs reviewed: CBC indicated White blood cell count 9.51, hemoglobin slightly low at 9.8 from 10.1 yesterday, platelets normal, no other concerning findings. CMP indicated normal sodium, potassium, and creatinine. UA trace protein, ketones trace, epithelial cells 20-30, calcium oxalate crystals many, urine mucus moderate. Urine drug tox positive for opiates, methadone, tricyclics, and benzodiazepines. Patient has not reported being on methadone or any form of tricyclics. X-ray of the chest did not reveal any acute findings. Final interpretation is pending. Impression of CT abdomen and pelvis is pending. 12/18/18 17:42 Patient denied taking methadone or any form of tricyclics. I had printed off a list of different types of tricyclic antidepressants and shared with her. Again patient denies taking any. Patient is alert and oriented. She does not appear to be in acute distress. 12/18/18 17:49 Per Emissions Repair Technician patient is requesting to be discharged home prior to results of CT. The patient remained hemodynamically stable while under my care in the E.D. I discussed the concerning symptoms for which to return to the E.D. with the patient. The patient verbalized understanding. All questions were answered. 12/18/18 17:53 CT abdomen/pelvis Impression: 1. Slight increased stool throughout the colon. 2. Delayed images shows no contrast within the bladder raising the possibility of dehydration. 3. Other incidental findings. Nothing acute is seen. Departure - Departure Time of Disposition: 17:40 Disposition: Home, Self-Care 01 Condition: Good Clinical Impression: Left upper quadrant abdominal pain of unknown etiology, Positive urine drug screen, Patient takes prescription medication without own prescription Contusion of chest wall Qualifiers: Encounter type: initial encounter Laterality: left Qualified Code(s): S20.212A - Contusion of left front wall of thorax, initial encounter - Discharge Information Instructions: Contusion, [id number], Abdominal Pain, Adult, [id number] Referrals: Rik Walls PA-C [Primary Care Provider] - Forms: ED Department Discharge Additional Instructions: CT of the abdomen reveals increased stool pattern. Take miralax 1 capful daily with copious amounts of water. Increase fiber in diet. See your PCP this coming week for follow-up if pain persists. Utilize [id number] pain medication of choice for the contusion of the left chest. Apply ice/heat to the affected area as needed. Refrain from any activities that cause worsening pain. - My Orders Last 24 Hours: My Active Orders 12/18/18 16:05 Chest 1V Frontal [CR] Stat - Assessment/Plan Last 24 Hours: My Active Orders 12/18/18 16:05 Chest 1V Frontal [CR] Stat
--- NOTE | 2018-12-18 17:52 | CT ---
CT abdomen and pelvis Technique: Multiple axial sections were obtained from slightly below the dome of the diaphragm inferiorly through the pubic symphysis. Intravenous contrast was utilized. No oral contrast has been given. Delayed images were obtained through the bladder. Comparison: Prior CT abdomen and pelvis exam of 06/20/17. Findings: Small portion of the visualized lung bases shows nothing acute. Visualized portions of the liver and spleen appear within normal limits. Previous gastric surgery is noted. Stable appearing shunt catheter is noted. Adrenal glands show no nodule. Pancreas is within normal limits. Surgical clips are seen from prior cholecystectomy. Kidneys show symmetric contrast enhancement without hydronephrosis or discrete mass. Aorta shows no aneurysm. No retroperitoneal adenopathy or mesenteric abnormalities are seen. No pelvic mass or adenopathy is seen. Delayed images shows no contrast within the bladder raising the possibility of dehydration. Slight increased stool is noted throughout colon. Appendix is not definitely visualized. Bone window settings were reviewed which shows mild scattered degenerative change within the spine. Impression: 1. Slight increased stool throughout the colon. 2. Delayed images shows no contrast within the bladder raising the possibility of dehydration. 3. Other incidental findings. Nothing acute is seen. Diagnostic code #2
--- NOTE | 2018-12-19 18:27 | CR ---
Chest: Frontal view of the chest was obtained. Comparison: Previous chest x-ray of 12/01/17. Heart size and mediastinum are within normal limits. Minimal parenchymal density is seen within the lingula or left lower lung most likely due to atelectasis. Lungs otherwise are clear. No gross bony abnormality is seen. Impression: 1. Minimal atelectasis as noted above. 2. Nothing acute is otherwise seen on frontal chest x-ray. Diagnostic code #2
== END 2018-12-18 18:44 | disposition home or self-care (01) ==
LOC: JD.ED 15:30
DX: S20.212A Contusion of left front wall of thorax, initial encounter (principal); R10.12 Left upper quadrant pain; R82.5 Elevated urine levels of drugs, medicaments and biological substances; I10 Essential (primary) hypertension; F41.9 Anxiety disorder, unspecified; F32.9 Major depressive disorder, single episode, unspecified; Z79.899 Other long term (current) drug therapy; Z88.6 Allergy status to analgesic agent; Z88.8 Allergy status to other drugs, medicaments and biological substances; W19.XXXA Unspecified fall, initial encounter
CPT/HCPCS: 36415; 71045; 74177; 80053; 80306; 81001; 85007; 85027; 99284; Q9967

== ENCOUNTER 2019-01-22 16:19 | Emergency (ER) | payer MEDICARE, BC ==
[2019-01-22 16:52] VITALS: BP 149/101
--- NOTE | 2019-01-22 17:06 | EDM.PDOC ---
ED HPI GENERAL MEDICAL PROBLEM - General Chief Complaint: Abdominal Pain Stated Complaint: ADRENAL ISSUES Time Seen by Provider: 01/22/19 17:05 - History of Present Illness INITIAL COMMENTS - FREE TEXT/NARRATIVE: 43-year-old female returns emergency room with abdominal pain. His last time I saw this patient she no longer has pancreatitis, now but she is been diagnosed with renal insufficiency and is been started on hydrocortisone she thought increasing her dose would help with her abdominal pain she is now taking 40 mg in the morning and 30 mg in the evening she complains of weight gain from this. At this time she says she does not want anything to take home but is hoping to get something for her abdominal pain. I have reviewed her chart last several visits. Bilateral Abdominal Pain Score (Numeric/FACES): 9 - Related Data Allergies Allergy/AdvReac Type Severity Reaction Status Date / Time buprenorphine [From Butrans] Allergy Itching Verified 12/18/18 15:42 metoclopramide HCl Allergy Itching Verified 12/18/18 15:42 [From Reglan] NSAIDS (Non-Steroidal Allergy Abdominal Verified 12/18/18 15:42 Anti-Inflamma Pain ketorolac [From Toradol] AdvReac Bleeding Verified 12/18/18 15:42 prochlorperazine AdvReac Vomiting Verified 12/18/18 15:42 [From Compazine] Home Meds: Home Meds Naloxone HCl [Narcan] 4 mg CHELE ASDIRECTED PRN 12/29/17 [History] raNITIdine HCl [Ranitidine HCl] 75 mg PO DAILY 02/08/18 [History] Ondansetron [Zofran ODT] 4 mg PO Q6H PRN #20 tab.dis 08/11/18 [Rx] Levothyroxine 200 mcg PO ACBREAKFAST 10/09/18 [History] Hydrocortisone [Cortef] 10 g PO 1200 11/05/18 [History] Hydrocortisone [Cortef] 20 mg PO QAM 11/05/18 [History] ALPRAZolam [Xanax] 0.5 mg PO BEDTIME 01/22/19 [History] Past Medical History - Past Health History Medical/Surgical History: Denies Medical/Surgical History HEENT History: Reports: Glaucoma Cardiovascular History: Reports: Hypertension Respiratory History: 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 (See Below) Other Respiratory History: cough RLQ Gastrointestinal History: Reports: Pancreatitis, Other (See Below) Other Gastrointestinal History: chronic pancreatitis, fatty pancreas ; addisons disease Genitourinary History: Reports: UTI, Recurrent 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: 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: c section x3, tubes tied Musculoskeletal History: Reports: Arthritis, Fracture Neurological History: 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 (See Below) Other Neuro History: pseudotumor, shunt Psychiatric History: Reports: Addiction, Anxiety, Depression Endocrine/Metabolic History: Reports: [place]'s Disease, Hypothyroidism, Obesity /BMI 30+ Hematologic History: Reports: Anemia - Infectious Disease History Infectious Disease History: Reports: C-Difficile, MRSA Other Infectious Disease History: in 2006 - Past Surgical History Head Surgeries/Procedures: Reports: Shunt HEENT Surgical History: Reports: Oral Surgery GI Surgical History: Reports: Appendectomy, Bariatric Procedure, Cholecystectomy , EGD, ERCP Female Surgical History: Reports: Section, Tubal Ligation Social & Family History - Family History Family Medical History: Noncontributory Cardiac: Reports: Bypass, Hypertension, [place] Respiratory: Reports: Asthma Oncologic: Reports: Colon - Tobacco Use Smoking Status *Q: Never Smoker - Caffeine Use Caffeine Use: Reports: Coffee Other Caffeine Use: 1 cup daily - Recreational Drug Use Recreational Drug Use: No - Living Situation & Occupation Living situation: Reports: , with Spouse Occupation: Unemployed ED ROS GENERAL - Review of Systems Review Of Systems: See Below Constitutional: Reports: No Symptoms Respiratory: Reports: No Symptoms Cardiovascular: Reports: No Symptoms GI/Abdominal: Reports: Abdominal Pain (Chronic) ED EXAM, GI/ABD - Physical Exam Exam: See Below Exam Limited By: No Limitations General Appearance: Alert, No Apparent Distress Respiratory/Chest: No Respiratory Distress, Lungs Clear, Normal Breath Sounds, No Accessory Muscle Use, Chest Non-Tender Cardiovascular: Regular Rate, Rhythm, No Edema, No Murmur GI/Abdominal Exam: Normal Bowel Sounds, Soft, Other (Vague left no epigastric tenderness tender what she had many times in the past no other appreciable abdominal discomfort noted) Course - Vital Signs Last Recorded V/S: Last Vital Signs Temp 36.8 C 01/22/19 16:50 Pulse 90 01/22/19 16:50 Resp 20 01/22/19 16:50 BP 149/101 H 01/22/19 16:50 Pulse Ox 99 01/22/19 16:50 - Orders/Labs/Meds Labs: Laboratory Tests 01/22/19 Range/Units 17:51 Sodium 142 (136-145) mEq/L Potassium 3.7 (3.5-5.1) mEq/L Chloride 106 (98-107) mEq/L Carbon Dioxide 28 (21-32) mEq/L Anion Gap 11.7 (5-15) BUN 10 (7-18) mg/dL Creatinine 0.9 (0.55-1.02) mg/dL Est Cr Clr Drug Dosing 86.26 mL/min Estimated GFR (MDRD) > 60 (>60) mL/min BUN/Creatinine Ratio 11.1 L (14-18) Glucose 92 (74-106) mg/dL Calcium 9.2 (8.5-10.1) mg/dL Meds: Medications Discontinued Medications Generic Name Dose Route Start Last Admin Trade Name Freq PRN Reason Stop Dose Admin Hydrocortisone 20 mg 01/22/19 17:39 Cortef PO 01/22/19 17:40 ONETIME ONE Methylprednisolone 4 mg 01/23/19 18:35 Medrol PO 01/23/19 18:36 ONETIME ONE - Re-Assessments/Exams Free Text/Narrative Re-Assessment/Exam: 01/22/19 19:06 Early on I was concerned that perhaps she had some to read adrenal insufficiency ordered 20 mg of hydrocortisone nursing cannot find this to give her then substituted 4 mg of dexamethasone however right after that was able to review her basic metabolic panel which was essentially normal not at all consistent with her scenario I canceled that. I had a long talk with the patient regarding the use of her steroids and generally speaking people on that type of steroid replacement generally do not gain too much weight it dosed appropriately I have urged her to decrease her dose slowly to a more appropriate target such as 20-25 mg every morning and 10-12.5 mg every evening. Departure - Departure Time of Disposition: 18:53 Disposition: Home, Self-Care 01 Clinical Impression: Medication care plan discussed with patient - Discharge Information Referrals: Rik Walls PA-C [Primary Care Provider] - Forms: ED Department Discharge Additional Instructions: Follow-up with your primary provider or here in endocrine clinic and see if they want to do a cortisol study. From our discussions here in the emergency room it sounds as though you're gaining weight on your current dose of steroids. Generally speaking folks with your condition do not do this if the medication is dosed correctly too much hydrocodone his own can cause this. Two thirds of your daily dose should be taken in the morning one third in the evening try and get this ratio corrected and then decrease your dose by 2.5-5 mg per dose every 3 days to a target of 20- 25 mg in the morning and 10-12.5 mg in the evening.
[2019-01-22] MEDS ORDERED: Hydrocortisone 20 MG Tab PO ONE (17:39)
== END 2019-01-22 19:00 | disposition home or self-care (01) ==
LOC: JD.ED 16:19
DX: E27.40 Unspecified adrenocortical insufficiency (principal); I10 Essential (primary) hypertension; F41.9 Anxiety disorder, unspecified; F32.9 Major depressive disorder, single episode, unspecified; E03.9 Hypothyroidism, unspecified; Z79.899 Other long term (current) drug therapy; Z88.8 Allergy status to other drugs, medicaments and biological substances; Z88.6 Allergy status to analgesic agent
CPT/HCPCS: 36415; 80048; 99283; 99284

== ENCOUNTER 2019-01-30 19:44 | Emergency (ER) | payer BC, MEDICARE ==
[2019-01-30 20:06] VITALS: BP 158/99
[2019-01-30] MEDS ORDERED: Ketorolac 60 MG/2 ML SDV IM ONE ×2 (20:41→20:55)
--- NOTE | 2019-01-30 21:16 | EDM.PDOC ---
ED HPI GENERAL MEDICAL PROBLEM - General Chief Complaint: Abdominal Pain Stated Complaint: FLARE UP ADDISONS DISEASE Time Seen by Provider: 01/30/19 20:21 Source of Information: Reports: Patient, RN Notes Reviewed - History of Present Illness INITIAL COMMENTS - FREE TEXT/NARRATIVE: 43-year-old female comes in with upper quadrant abdominal pain. That started somewhat last evening much more severe this morning and has been persistent throughout the day. She states she is vomited once. He has been drinking some water but states that eating does make the pain worse, makes her feel worse. This is not new in any way. This is been going on for about 3-4 years. Prior history well documented. No fever or chills today. No chest pain or difficulty breathing. Left Abdomen Pain Score (Numeric/FACES): 8 - Related Data Allergies Allergy/AdvReac Type Severity Reaction Status Date / Time buprenorphine [From Butrans] Allergy Itching Verified 01/30/19 20:01 metoclopramide HCl Allergy Itching Verified 01/30/19 20:01 [From Reglan] NSAIDS (Non-Steroidal Allergy Abdominal Verified 01/30/19 20:01 Anti-Inflamma Pain ketorolac [From Toradol] AdvReac Bleeding Verified 01/30/19 20:01 prochlorperazine AdvReac Vomiting Verified 01/30/19 20:01 [From Compazine] Home Meds: Home Meds Naloxone HCl [Narcan] 4 mg CHELE ASDIRECTED PRN 12/29/17 [History] raNITIdine HCl [Ranitidine HCl] 75 mg PO DAILY 02/08/18 [History] Ondansetron [Zofran ODT] 4 mg PO Q6H PRN #20 tab.dis 08/11/18 [Rx] Levothyroxine 200 mcg PO ACBREAKFAST 10/09/18 [History] Hydrocortisone [Cortef] 10 g PO 1200 11/05/18 [History] Hydrocortisone [Cortef] 20 mg PO QAM 11/05/18 [History] ALPRAZolam [Xanax] 0.5 mg PO BEDTIME 01/22/19 [History] Ondansetron [Zofran ODT] 4 mg PO Q6H PRN #14 tab.dis 01/30/19 [Rx] Past Medical History - Past Health History Medical/Surgical History: Denies Medical/Surgical History HEENT History: Reports: Glaucoma Cardiovascular History: Reports: Hypertension Respiratory History: 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 (See Below) Other Respiratory History: cough RLQ Gastrointestinal History: Reports: Pancreatitis, Other (See Below) Other Gastrointestinal History: chronic pancreatitis, fatty pancreas ; addisons disease Genitourinary History: Reports: UTI, Recurrent APPLICATIONS PROGRAMMER History: 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 APPLICATIONS PROGRAMMER History: c section x3, tubes tied Musculoskeletal History: Reports: Arthritis, Fracture Neurological History: 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 (See Below) Other Neuro History: pseudotumor, shunt Psychiatric History: Reports: Addiction, Anxiety, Depression Endocrine/Metabolic History: Reports: [place]'s Disease, Hypothyroidism, Obesity /BMI 30+ Hematologic History: Reports: Anemia - Infectious Disease History Infectious Disease History: Reports: C-Difficile, MRSA Other Infectious Disease History: in 2006 - Past Surgical History Head Surgeries/Procedures: Reports: Shunt HEENT Surgical History: Reports: Oral Surgery GI Surgical History: Reports: Appendectomy, Bariatric Procedure, Cholecystectomy , EGD, ERCP Female Surgical History: Reports: Section, Tubal Ligation Social & Family History - Family History Family Medical History: Noncontributory Cardiac: Reports: Bypass, Hypertension, [place] Respiratory: Reports: Asthma Oncologic: Reports: Colon - Caffeine Use Caffeine Use: Reports: Coffee Other Caffeine Use: 1 cup daily - Living Situation & Occupation Living situation: Reports: , with Spouse Occupation: Unemployed ED ROS GENERAL - Review of Systems Review Of Systems: See Below Constitutional: Denies: Fever, Chills, Diaphoresis HEENT: Reports: No Symptoms Respiratory: Denies: Shortness of Breath Cardiovascular: Denies: Chest Pain GI/Abdominal: Reports: Abdominal Pain, Nausea, Vomiting. Denies: Diarrhea (Once ), Hematochezia, Melena Musculoskeletal: Reports: Back Pain (Mild) Skin: Reports: No Symptoms Neurological: Reports: No Symptoms ED EXAM, GI/ABD - Physical Exam Exam: See Below General Appearance: Alert, Mild Distress Throat/Mouth: Normal Inspection, Normal Oropharynx, Other (Oral mucosa is moist) Neck: Supple Respiratory/Chest: No Respiratory Distress, Lungs Clear, Normal Breath Sounds Cardiovascular: Regular Rate, Rhythm GI/Abdominal Exam: Soft, Tender (Left upper quad, remainder of abdomen soft and nontender) Extremities: Normal Inspection Neurological: Alert, Oriented, No Motor/Sensory Deficits Skin Exam: Warm, Dry, Normal Color Course - Vital Signs Last Recorded V/S: Last Vital Signs Temp 98.6 F 01/30/19 20:03 Pulse 86 01/30/19 20:03 Resp 16 01/30/19 20:03 BP 158/99 H 01/30/19 20:03 Pulse Ox 99 01/30/19 20:03 - Orders/Labs/Meds Meds: Medications Discontinued Medications Generic Name Dose Route Start Last Admin Trade Name Freq PRN Reason Stop Dose Admin Hydromorphone HCl 1 mg 01/30/19 21:17 01/30/19 21:33 Dilaudid IM 01/30/19 21:18 1 mg ONETIME ONE Administration Ketorolac Tromethamine 60 mg 01/30/19 20:41 01/30/19 21:00 Toradol IM 01/30/19 20:42 60 mg ONETIME ONE Administration Ketorolac Tromethamine 60 mg 01/30/19 20:55 01/30/19 21:01 Toradol IM 01/30/19 20:56 Not Given ONETIME ONE Ondansetron HCl 4 mg 01/30/19 21:30 01/30/19 21:33 Zofran Odt PO 01/30/19 21:31 4 mg ONETIME ONE Administration Departure - Departure Time of Disposition: 21:13 Disposition: Home, Self-Care 01 Condition: Fair Clinical Impression: Abdominal pain Qualifiers: Abdominal location: left upper quadrant Qualified Code(s): R10.12 - Left upper quadrant pain - Discharge Information Prescriptions: Ondansetron [Zofran ODT] 4 mg PO Q6H PRN #14 tab.dis PRN Reason: Nausea/Vomiting Instructions: Abdominal Pain, Adult, [id number] Referrals: Rik Walls PA-C [Primary Care Provider] - Forms: ED Department Discharge Additional Instructions: Clear liquids until tomorrow afternoon, then very careful bland diet as tolerated, Zofran every 6-8 hours if needed for further nausea or vomiting, continue current medications as prescribed, follow-up with your regular medical provider if not much better within 1-2 days as expected.
[2019-01-30] MEDS ORDERED: HYDROmorphone 1 MG/ML Syringe IM ONE (21:17)
[2019-01-30] MEDS ORDERED: Ondansetron 4 MG Tab.DIS PO ONE (21:30)
== END 2019-01-30 21:35 | disposition home or self-care (01) ==
LOC: JD.ED 19:44
DX: R10.12 Left upper quadrant pain (principal); I10 Essential (primary) hypertension; E66.9 Obesity, unspecified; Z88.8 Allergy status to other drugs, medicaments and biological substances; Z79.899 Other long term (current) drug therapy
CPT/HCPCS: 96372; 99283; A9270; J1170; J1885; 99284

== ENCOUNTER 2019-02-03 09:08 | Emergency (ER) | payer BC, MEDICARE ==
--- NOTE | 2019-02-03 09:49 | EDM.PDOC ---
ED HPI GENERAL MEDICAL PROBLEM - General Chief Complaint: Head Injury Stated Complaint: FELL HIT HEAD Time Seen by Provider: 02/03/19 09:48 Source of Information: Reports: Patient, RN Notes Reviewed - History of Present Illness INITIAL COMMENTS - FREE TEXT/NARRATIVE: 43-year-old female slipped on the ice yesterday morning hitting the right side of her head. There was no LOC but she states she was "dazed" since that time she's had severe headache. She states she did vomit once shortly after the injury but no further vomiting. No neck or back pain. No chest pain or difficulty breathing. She continues with severe headache today. She has history of hydrocephalus, has a shunt and is worried about that. Right Head Pain Score (Numeric/FACES): 8 Right Arm Pain Score (Numeric/FACES): 5 - Related Data Allergies Allergy/AdvReac Type Severity Reaction Status Date / Time buprenorphine [From Butrans] Allergy Itching Verified 02/03/19 09:23 metoclopramide HCl Allergy Itching Verified 02/03/19 09:23 [From Reglan] NSAIDS (Non-Steroidal Allergy Abdominal Verified 02/03/19 09:23 Anti-Inflamma Pain ketorolac [From Toradol] AdvReac Bleeding Verified 02/03/19 09:23 prochlorperazine AdvReac Vomiting Verified 02/03/19 09:23 [From Compazine] Home Meds: Home Meds Naloxone HCl [Narcan] 4 mg CHELE ASDIRECTED PRN 12/29/17 [History] raNITIdine HCl [Ranitidine HCl] 150 mg PO DAILY 02/08/18 [History] Levothyroxine 100 mcg PO ACBREAKFAST 10/09/18 [History] Hydrocortisone [Cortef] 10 g PO 1200 11/05/18 [History] Hydrocortisone [Cortef] 20 mg PO QAM 11/05/18 [History] ALPRAZolam [Xanax] 0.5 mg PO BEDTIME PRN 01/22/19 [History] Ondansetron [Zofran ODT] 4 mg PO Q6H PRN #14 tab.dis 01/30/19 [Rx] Martizan 0 mg PO BEDTIME 02/03/19 [History] Past Medical History - Past Health History Medical/Surgical History: Denies Medical/Surgical History HEENT History: Reports: Glaucoma Cardiovascular History: Reports: Hypertension Other Cardiovascular History: states "only when I'm hurting." Respiratory History: 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 (See Below) Other Respiratory History: cough RLQ Gastrointestinal History: Reports: Pancreatitis, Other (See Below) Other Gastrointestinal History: chronic pancreatitis, fatty pancreas ; addisons disease Genitourinary History: Reports: UTI, Recurrent 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 SAMPLER History: c section x3, tubes tied Musculoskeletal History: Reports: Arthritis, Fracture Neurological History: 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 (See Below) Other Neuro History: pseudotumor, shunt Psychiatric History: Reports: Addiction, Anxiety, Depression Endocrine/Metabolic History: Reports: [place]'s Disease, Hypothyroidism, Obesity /BMI 30+ Hematologic History: Reports: Anemia - Infectious Disease History Infectious Disease History: Reports: C-Difficile, MRSA Other Infectious Disease History: in 2006, 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." - Past Surgical History Head Surgeries/Procedures: Reports: Shunt HEENT Surgical History: Reports: Oral Surgery GI Surgical History: Reports: Appendectomy, Bariatric Procedure, Cholecystectomy , Colonoscopy, EGD, ERCP Female Surgical History: Reports: Section, Tubal Ligation Social & Family History - Family History Family Medical History: Noncontributory Cardiac: Reports: Bypass, Hypertension, [place] Respiratory: Reports: Asthma Oncologic: Reports: Colon - Tobacco Use Smoking Status *Q: Never Smoker Second Hand Smoke Exposure: No - Caffeine Use Caffeine Use: Reports: Coffee Other Caffeine Use: 1 cup daily - Recreational Drug Use Recreational Drug Use: No - Living Situation & Occupation Living situation: Reports: , with Spouse Occupation: Unemployed ED ROS GENERAL - Review of Systems Review Of Systems: See Below Constitutional: Denies: Fever, Chills, Diaphoresis HEENT: Denies: Ear Discharge, Sinus Problem, Throat Pain Respiratory: Denies: Shortness of Breath Cardiovascular: Denies: Chest Pain GI/Abdominal: Reports: Nausea, Vomiting (Once yesterday morning). Denies: Abdominal Pain Musculoskeletal: Denies: Neck Pain, Shoulder Pain, Arm Pain, Back Pain, Joint Pain Skin: Reports: No Symptoms Neurological: Reports: Dizziness, Headache. Denies: Trouble Speaking, Difficulty Walking ED EXAM, HEAD INJURY - Physical Exam Exam: See Below General Appearance: Alert, Moderate Distress Head: Atraumatic, Scalp Tenderness (Right temporal area). No: Scalp Swelling, Active Bleeding Eyes: Bilateral Eye: PERRL Ears: Normal External Exam Nose: Normal Inspection Throat/Mouth: Normal Inspection Neck: Non-Tender, Full Range of Motion Respiratory: No Respiratory Distress, Lungs Clear Cardiovascular: Regular Rate, Rhythm Neurologic: No Motor/Sensory Deficits, Oriented x 3 Skin: Normal Color, Warm/Dry Course - Vital Signs Last Recorded V/S: Last Vital Signs Temp 97.7 F 02/03/19 10:58 Pulse 90 02/03/19 10:58 Resp 16 02/03/19 10:58 BP 157/103 H 02/03/19 10:58 Pulse Ox 99 02/03/19 10:58 - Orders/Labs/Meds Meds: Medications Discontinued Medications Generic Name Dose Route Start Last Admin Trade Name Dominic PRN Reason Stop Dose Admin Hydromorphone HCl 1 mg 02/03/19 10:22 02/03/19 10:56 Dilaudid IM 02/03/19 10:23 1 mg ONETIME ONE Administration Ondansetron HCl 4 mg 02/03/19 10:22 02/03/19 10:55 Zofran Odt PO 02/03/19 10:23 4 mg ONETIME ONE Administration - Re-Assessments/Exams Free Text/Narrative Re-Assessment/Exam: 02/03/19 19:19 CT of head does not show any acute findings Departure - Departure Time of Disposition: 11:08 Disposition: Home, Self-Care 01 Condition: Fair Clinical Impression: Fall Qualifiers: Encounter type: initial encounter Qualified Code(s): W19.XXXA - Unspecified fall, initial encounter Head concussion Qualifiers: Encounter type: initial encounter Loss of consciousness presence/duration: without LOC Qualified Code(s): S06.0X0A - Concussion without loss of consciousness, initial encounter - Discharge Information Instructions: Concussion, Adult Referrals: Farzaneh Smith MD [Primary Care Provider] - Forms: ED Department Discharge Additional Instructions: The treatment for concussion is rest and time, keep head elevated above chest as much as possible today and tomorrow. Continue current medications as prescribed. Follow-up clinic if not much better within 2-3 days as expected.
[2019-02-03] MEDS ORDERED: Ondansetron 4 MG Tab.DIS PO ONE (10:22)
[2019-02-03] MEDS ORDERED: HYDROmorphone 1 MG/ML Syringe IM ONE (10:22)
--- NOTE | 2019-02-03 10:40 | CT ---
Head CT Technique: Multiple axial sections through the brain were obtained. Intravenous contrast was not utilized. Comparison: Prior head CT exam of 12/17/18. Findings: Ventricles along with basal cisterns and sulci over the convexities are within normal limits for the patient's age. Intraventricular shunt is seen which terminates within the lateral ventricle. There is diminished density noted along the tract of the shunt which appears stable from prior head CT exam. Small low density findings seen within the left basal ganglia which is also stable. No other abnormal parenchymal densities are seen. Previous suboccipital craniotomy is noted. No intracranial hemorrhage is seen. No midline shift or mass effect is seen. Bone window settings were reviewed which show no acute calvarial abnormality. Visualized sinuses show minimal mucosal thickening within the right ethmoid and left maxillary sinuses which is most likely incidental. Impression: 1. Intraventricular shunt and previous suboccipital craniotomy. 2. No acute intracranial abnormality is seen. 3. No acute skull abnormality is seen. 4. Sinus findings which are believed to be incidental. Diagnostic code #2
[2019-02-03 11:00] VITALS: BP 157/103
== END 2019-02-03 11:41 | disposition home or self-care (01) ==
LOC: SUPCPDRO 09:08 → JD.ED 09:08
DX: S06.0X0A Concussion without loss of consciousness, initial encounter (principal); I10 Essential (primary) hypertension; F41.9 Anxiety disorder, unspecified; F32.9 Major depressive disorder, single episode, unspecified; E03.9 Hypothyroidism, unspecified; E27.1 Primary adrenocortical insufficiency; Z88.8 Allergy status to other drugs, medicaments and biological substances; W00.0XXA Fall on same level due to ice and snow, initial encounter; Z79.899 Other long term (current) drug therapy
CPT/HCPCS: 70450; 96372; 99284; A9270; J1170; 99283

== ENCOUNTER 2019-02-16 09:35 | Emergency (ER) | payer BC, MEDICARE ==
[2019-02-16 09:54] VITALS: BP 155/104
[2019-02-16] MEDS ORDERED: Hydrocortisone Sodium Succinate 100 MG/2 ML SDV IM ONE (10:39)
[2019-02-16] MEDS ORDERED: Ondansetron 4 MG Tab.DIS PO ONE (10:40)
[2019-02-16] MEDS ORDERED: Promethazine 25 MG/ML SDV IM ONE (10:40)
[2019-02-16] MEDS ORDERED: diphenhydrAMINE 50 MG Cap PO ONE (10:40)
[2019-02-16] MEDS ORDERED: HYDROmorphone 1 MG/ML Syringe IM ONE (10:40)
--- NOTE | 2019-02-16 10:44 | EDM.PDOC ---
ED HPI GENERAL MEDICAL PROBLEM - General Chief Complaint: Abdominal Pain Stated Complaint: PAIN IN LEFT SIDE Time Seen by Provider: 02/16/19 10:04 Source of Information: Reports: Patient History Limitations: Reports: No Limitations - History of Present Illness INITIAL COMMENTS - FREE TEXT/NARRATIVE: 43 yo F w/ h/o adrenal insufficiency on hydrocortisone comes in today for new onset LUQ pain with nausea and vomiting. She has had this pain before, and it is basically an acute on chronic problem. She states the pain started Thursday as an "achy" pain but has continued to get worse. She then had N/V this morning at 3am with the abdominal pain becoming a sharp 8/10 pain. She said shower, heat and Zofran have mildly helped with symptoms. She denies any F/C, cough, SOB, diarrhea, GI/ complaints. No other complaints at this time. PCP is Rik Walls PA-C. 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 (see below) Left Abdomen Pain Score (Numeric/FACES): 8 - Related Data Allergies Allergy/AdvReac Type Severity Reaction Status Date / Time buprenorphine [From Butrans] Allergy Itching Verified 02/16/19 09:48 metoclopramide HCl Allergy Itching Verified 02/16/19 09:48 [From Reglan] NSAIDS (Non-Steroidal Allergy Abdominal Verified 02/16/19 09:48 Anti-Inflamma Pain ketorolac [From Toradol] AdvReac Bleeding Verified 02/16/19 09:48 prochlorperazine AdvReac Vomiting Verified 02/16/19 09:48 [From Compazine] Home Meds: Home Meds Naloxone HCl [Narcan] 4 mg CHELE ASDIRECTED PRN 12/29/17 [History] raNITIdine HCl [Ranitidine HCl] 150 mg PO DAILY 02/08/18 [History] Levothyroxine 200 mcg PO ACBREAKFAST 10/09/18 [History] Hydrocortisone [Cortef] 10 g PO 1200 11/05/18 [History] Hydrocortisone [Cortef] 20 mg PO QAM 11/05/18 [History] ALPRAZolam [Xanax] 0.5 mg PO BEDTIME PRN 01/22/19 [History] Ondansetron [Zofran ODT] 4 mg PO Q6H PRN #14 tab.dis 01/30/19 [Rx] Martizan 0 mg PO BEDTIME 02/03/19 [History] Past Medical History - Past Health History Medical/Surgical History: Denies Medical/Surgical History HEENT History: Reports: Glaucoma Cardiovascular History: Reports: Hypertension Other Cardiovascular History: states "only when I'm hurting." Respiratory History: 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 (See Below) Other Respiratory History: cough RLQ Gastrointestinal History: Reports: Pancreatitis, Other (See Below) Other Gastrointestinal History: chronic pancreatitis, fatty pancreas ; addisons disease Genitourinary History: Reports: UTI, Recurrent 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 BODY TRIMMER UPHOLSTERER History: c section x3, tubes tied Musculoskeletal History: Reports: Arthritis, Fracture Neurological History: 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 (See Below) Other Neuro History: pseudotumor, shunt Psychiatric History: Reports: Addiction, Anxiety, Depression 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, Hypothyroidism, Obesity /BMI 30+ Hematologic History: Reports: Anemia Immunologic History: Reports: None Oncologic (Cancer) History: Reports: None Dermatologic History: Reports: None - Infectious Disease History Infectious Disease History: Reports: C-Difficile, MRSA Other Infectious Disease History: in 2006, 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." - Past Surgical History Head Surgeries/Procedures: Reports: Shunt HEENT Surgical History: Reports: Oral Surgery GI Surgical History: Reports: Appendectomy, Bariatric Procedure, Cholecystectomy , Colonoscopy, EGD, ERCP Female Surgical History: Reports: Section, Tubal Ligation Social & Family History - Family History Family Medical History: Noncontributory Cardiac: Reports: Bypass, Hypertension, [place] Respiratory: Reports: Asthma Oncologic: Reports: Colon - Tobacco Use Smoking Status *Q: Never Smoker - Caffeine Use Caffeine Use: Reports: Coffee Other Caffeine Use: 1 cup daily - Recreational Drug Use Recreational Drug Use: No - Living Situation & Occupation Living situation: Reports: , with Spouse Occupation: Unemployed ED ROS GENERAL - Review of Systems Review Of Systems: ROS reveals no pertinent complaints other than HPI. ED EXAM, GI/ABD - Physical Exam Exam: See Below Exam Limited By: No Limitations General Appearance: Alert, WD/WN, No Apparent Distress Eyes: Bilateral: Normal Appearance, EOMI Ears: Normal External Exam, Hearing Grossly Normal Throat/Mouth: Normal Inspection, Normal Lips, Normal Teeth, Normal Gums, Normal Oropharynx, Normal Voice, No Airway Compromise Neck: Normal Inspection, Supple, Non-Tender, Full Range of Motion Respiratory/Chest: No Respiratory Distress, Lungs Clear, Normal Breath Sounds, No Accessory Muscle Use, Chest Non-Tender Cardiovascular: Normal Peripheral Pulses, Regular Rate, Rhythm, No Edema, No Gallop, No JVD, No Murmur, No Rub GI/Abdominal Exam: Normal Bowel Sounds, Soft, Non-Tender, No Organomegaly, No Distention, No Abnormal Bruit, No Mass, Pelvis Stable Back Exam: Normal Inspection Psychiatric: Normal Affect, Normal Mood Skin Exam: Warm, Dry, Intact, Normal Color, No Rash Course - Vital Signs Last Recorded V/S: Last Vital Signs Temp 97.4 F 02/16/19 09:53 Pulse 76 02/16/19 09:53 Resp 14 02/16/19 09:53 BP 155/104 H 02/16/19 09:53 Pulse Ox 100 02/16/19 09:53 - Orders/Labs/Meds Meds: Medications Discontinued Medications Generic Name Dose Route Start Last Admin Trade Name Freq PRN Reason Stop Dose Admin Diphenhydramine HCl 50 mg 02/16/19 10:40 02/16/19 10:48 Benadryl PO 02/16/19 10:41 50 mg ONETIME ONE Administration Hydrocortisone Sodium Succinate 100 mg 02/16/19 10:39 02/16/19 10:49 Solu-Cortef IM 02/16/19 10:40 100 mg ONETIME ONE Administration Hydromorphone HCl 2 mg 02/16/19 10:40 02/16/19 10:53 Dilaudid IM 02/16/19 10:41 2 mg ONETIME ONE Administration Ondansetron HCl 4 mg 02/16/19 10:40 02/16/19 10:48 Zofran Odt PO 02/16/19 10:41 4 mg ONETIME ONE Administration Promethazine HCl 25 mg 02/16/19 10:40 02/16/19 10:50 Phenergan IM 02/16/19 10:41 25 mg ONETIME ONE Administration - Re-Assessments/Exams Free Text/Narrative Re-Assessment/Exam: 02/16/19 10:43 Gave Solu-Cortef 100 IM, Dilaudid 2mg IM, Phenergan 25mg, Benadryl 50 PO- these medications have helped her during previous visit for similar symptoms. 02/16/19 11:07 She states she is feeling much better. She is stable to go home at this time. Departure - Departure Time of Disposition: 11:07 Disposition: Home, Self-Care 01 Condition: Good Clinical Impression: LUQ abdominal pain Nausea & vomiting Qualifiers: Vomiting type: unspecified Vomiting Intractability: non-intractable Qualified Code(s): R11.2 - Nausea with vomiting, unspecified - Discharge Information *PRESCRIPTION DRUG MONITORING PROGRAM REVIEWED*: Not Applicable *COPY OF PRESCRIPTION DRUG MONITORING REPORT IN PATIENT ALE: Not Applicable Instructions: Nausea and Vomiting, Adult, [id number], Abdominal Pain, Adult, [id number] Referrals: Rik Walls PA-C [Primary Care Provider] - Forms: ED Department Discharge Additional Instructions: You were seen in the ED today for abdominal pain w/ nausea and vomiting, acute on chronic condition. You were given medication to help with the pain, nausea and vomiting with improvement. Recommend bland diet, fluids and continue to use your Zofran at home. Recommend follow up with your primary care provider. Please return to ED if any new or worsening symptoms.
== END 2019-02-16 11:38 | disposition home or self-care (01) ==
LOC: JD.ED 09:35
DX: R10.12 Left upper quadrant pain (principal); R11.2 Nausea with vomiting, unspecified; I10 Essential (primary) hypertension; F41.9 Anxiety disorder, unspecified; F32.9 Major depressive disorder, single episode, unspecified; Z79.899 Other long term (current) drug therapy; Z88.8 Allergy status to other drugs, medicaments and biological substances; Z88.6 Allergy status to analgesic agent
CPT/HCPCS: 96372; 99283; A9270; J1170; J1720; J2550

== ENCOUNTER 2019-02-24 13:40 | Emergency (ER) | payer BC, MEDICARE ==
[2019-02-24 14:03] VITALS: BP 146/92
[2019-02-24] MEDS ORDERED: HYDROmorphone 1 MG/ML Syringe IM ONE (14:17)
[2019-02-24] MEDS ORDERED: diphenhydrAMINE 50 MG/ML SDV IM ONE (14:18)
[2019-02-24] MEDS ORDERED: Promethazine 25 MG/ML SDV IM ONE (14:18)
[2019-02-24] MEDS ORDERED: Hydrocortisone Sodium Succinate 100 MG/2 ML SDV IM ONE (14:19)
--- NOTE | 2019-02-24 14:22 | EDM.PDOC ---
ED HPI GENERAL MEDICAL PROBLEM - General Chief Complaint: Abdominal Pain Stated Complaint: MICAELA FLARE UP Time Seen by Provider: 02/24/19 14:17 Source of Information: Reports: Patient History Limitations: Reports: No Limitations - History of Present Illness INITIAL COMMENTS - FREE TEXT/NARRATIVE: 43-year-old female presents to the ED with acute onset of severe left upper quadrant abdominal pain rating to her back characteristic of her recurrent bouts of chronic pancreatitis. Since when we have done labs recently the lipase is normal or just barely abnormal. Therefore we have stopped doing labs. She states pain came on about 2:00 this morning associate with nausea and vomiting 4 bilious material. Patient was recently diagnosed with Micaela's disease and has been unable to keep down her cortisol medications today. She has no Zofran or pain medication at home at this time. She is scheduled to see pain management Dr. Richards in [place] towards the end of this month. She has diffuse abdominal cramping pain. Diarrhea only once so far today. Since starting the cortisol supplements her diarrhea has reduced substantially. She usually gets diarrhea with a flareup of pancreatitis. No hematemesis and no blood in the stool. Onset: Today Onset Date: 02/24/19 Onset Time: 02:10 Duration: Hour(s): Location: Reports: Abdomen (Left upper quadrant epigastrium radiating through to the back), Radiates to Quality: Reports: Ache (Inferior to the left scapula), Pressure, Other Severity: Severe (Deep aching pain.) Improves with: Reports: None ( 10 out of 10) Worsens with: Reports: Breathing, Other Context: 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 (Spontaneous recurrence of pancreatitis she does not drink alcohol). 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) (Attempts to take cortisone orally) Left Abdomen Pain Score (Numeric/FACES): 9 - Related Data Allergies Allergy/AdvReac Type Severity Reaction Status Date / Time buprenorphine [From Butrans] Allergy Itching Verified 02/16/19 09:48 metoclopramide HCl Allergy Itching Verified 02/16/19 09:48 [From Reglan] NSAIDS (Non-Steroidal Allergy Abdominal Verified 02/16/19 09:48 Anti-Inflamma Pain ketorolac [From Toradol] AdvReac Bleeding Verified 02/16/19 09:48 prochlorperazine AdvReac Vomiting Verified 02/16/19 09:48 [From Compazine] Home Meds: Home Meds Naloxone HCl [Narcan] 4 mg CHELE ASDIRECTED PRN 12/29/17 [History] raNITIdine HCl [Ranitidine HCl] 150 mg PO DAILY 02/08/18 [History] Levothyroxine 200 mcg PO ACBREAKFAST 10/09/18 [History] Hydrocortisone [Cortef] 10 g PO 1200 11/05/18 [History] Hydrocortisone [Cortef] 20 mg PO QAM 11/05/18 [History] ALPRAZolam [Xanax] 0.5 mg PO BEDTIME PRN 01/22/19 [History] Ondansetron [Zofran ODT] 4 mg PO Q6H PRN #14 tab.dis 01/30/19 [Rx] Ondansetron [Zofran] 4 mg BUCCAL Q6H PRN #20 tab 02/24/19 [Rx] oxyCODONE HCl/Acetaminophen [Percocet 5-325 mg Tablet] 1 - 2 each PO Q4H PRN # 20 tablet 02/24/19 [Rx] Past Medical History - Past Health History Medical/Surgical History: Denies Medical/Surgical History HEENT History: Reports: Glaucoma Cardiovascular History: Reports: Hypertension Other Cardiovascular History: states "only when I'm hurting." Respiratory History: 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 (See Below) Other Respiratory History: cough RLQ Gastrointestinal History: Reports: Pancreatitis, Other (See Below) Other Gastrointestinal History: chronic pancreatitis, fatty pancreas ; addisons disease Genitourinary History: Reports: UTI, Recurrent 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: c section x3, tubes tied Musculoskeletal History: Reports: Arthritis, Fracture Neurological History: 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 (See Below) Other Neuro History: pseudotumor, shunt Psychiatric History: Reports: Addiction, Anxiety, Depression 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, Hypothyroidism, Obesity /BMI 30+ Hematologic History: Reports: Anemia Immunologic History: Reports: None Oncologic (Cancer) History: Reports: None Dermatologic History: Reports: None - Infectious Disease History Infectious Disease History: Reports: C-Difficile, MRSA Other Infectious Disease History: in 2006, 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." - Past Surgical History Head Surgeries/Procedures: Reports: Shunt HEENT Surgical History: Reports: Oral Surgery GI Surgical History: Reports: Appendectomy, Bariatric Procedure, Cholecystectomy , Colonoscopy, EGD, ERCP Female Surgical History: Reports: Section, Tubal Ligation Social & Family History - Family History Family Medical History: Noncontributory Cardiac: Reports: Bypass, Hypertension, [place] Respiratory: Reports: Asthma Oncologic: Reports: Colon - Tobacco Use Smoking Status *Q: Never Smoker - Caffeine Use Caffeine Use: Reports: Coffee Other Caffeine Use: 1 cup daily - Recreational Drug Use Recreational Drug Use: No - Living Situation & Occupation Living situation: Reports: , with Spouse Occupation: Unemployed ED ROS GENERAL - Review of Systems Review Of Systems: See Below Constitutional: Reports: Malaise, Weakness, Fatigue, Decreased Appetite. Denies : Fever, Chills HEENT: Reports: No Symptoms Respiratory: Reports: No Symptoms, Shortness of Breath Cardiovascular: Reports: No Symptoms (Deep breathing makes the abdominal pain worse.) Endocrine: Reports: Fatigue GI/Abdominal: Reports: Abdominal Pain (See history of present illness), Diarrhea (Chronic diarrhea.), Decreased Appetite, Nausea (Unable to keep anything down.), Vomiting (3 since 2:00 this morning) : Reports: Incontinence Musculoskeletal: Reports: Joint Pain (Some stress incontinence) Skin: Reports: No Symptoms ( knees hips neck back at times) Neurological: Reports: Headache (Has a chronic headache syndrome.) Psychiatric: Reports: Anxiety Hematologic/Lymphatic: Reports: No Symptoms Immunologic: Reports: No Symptoms ED EXAM, GI/ABD - Physical Exam Exam: See Below Exam Limited By: No Limitations General Appearance: Alert, WD/WN, Moderate Distress Eyes: Bilateral: Pale Conjunctiva Throat/Mouth: Other (Tongue is mildly dry and coated) Head: Atraumatic, Normocephalic, Other (Has a shunt right parietal cortex.) Neck: Normal Inspection, Limited Range of Motion, Tender Lateral Respiratory/Chest: No Respiratory Distress (Bilaterally), Lungs Clear, Normal Breath Sounds, Chest Non-Tender (Mild tachypnea 20/m with sats of 100%.), Respiratory Distress Cardiovascular: Normal Peripheral Pulses, Regular Rate, Rhythm, No Edema, No Gallop, No Murmur, No Rub GI/Abdominal Exam: Normal Bowel Sounds, No Organomegaly, Pelvis Stable, Distended (The distended and slightly tympanitic to percussion.), Tender (Very tender to palpation in epigastrium left upper quadrant and left mid abdomen.) Back Exam: Normal Inspection, Full Range of Motion, CVA Tenderness (L) (Moderate ). No: CVA Tenderness (R) Extremities: Normal Inspection, Normal Range of Motion, Non-Tender, No Pedal Edema Neurological: Alert, Oriented, CN II-XII Intact, Normal Cognition Psychiatric: Normal Affect Skin Exam: Warm, Intact, Normal Color, No Rash Course - Vital Signs Last Recorded V/S: Last Vital Signs Temp 36.7 C 02/24/19 14:02 Pulse 101 H 02/24/19 14:02 Resp 20 02/24/19 14:02 BP 146/92 H 02/24/19 14:02 Pulse Ox 100 02/24/19 14:02 - Orders/Labs/Meds Meds: Medications Discontinued Medications Generic Name Dose Route Start Last Admin Trade Name Freq PRN Reason Stop Dose Admin Diphenhydramine HCl 50 mg 02/24/19 14:18 Benadryl IM 02/24/19 14:19 ONETIME ONE Hydrocortisone Sodium Succinate 100 mg 02/24/19 14:19 Solu-Cortef IM 02/24/19 14:20 ONETIME ONE Hydromorphone HCl 2 mg 02/24/19 14:17 Dilaudid IM 02/24/19 14:18 ONETIME ONE Promethazine HCl 25 mg 02/24/19 14:18 Phenergan IM 02/24/19 14:19 ONETIME ONE - Radiology Interpretation Free Text/Narrative:: 43-year-old female attends the ED with an acute flareup of her chronic pancreatitis with left upper quadrant abdominal pain epigastric pain radiating through to her left mid back. Patient is a nausea and vomiting since 2:00 this morning 4 and unable to keep anything down. This includes her cortisol tablets which she requires for Muscogee's disease. Pain on examination left upper quadrant of the abdomen characteristic of her usual presentation. Plan she will receive Solu-Cortef 100 mg IM. Dilaudid 2 mg IM with Phenergan 25 mg IM and Benadryl 50 mg IM for acute pain and nausea relief. Prescription written for Zofran 4 mg sublingual every 4-6 hours. For nausea relief 20 tabs. Percocet 5/ 325 mg one or 2 every 4-6 hours needed for pain relief 20 tabs. She is scheduled to follow-up with chronic pain management towards the end of the month. Will resume clear fluids in about half hour time Gatorade/Powerade. Departure - Departure Time of Disposition: 14:25 Disposition: Home, Self-Care 01 Condition: Fair Clinical Impression: Chronic recurrent pancreatitis, Adrenal insufficiency (Muscogee's disease) Nausea and vomiting Qualifiers: Vomiting type: unspecified Vomiting Intractability: non-intractable Qualified Code(s): R11.2 - Nausea with vomiting, unspecified - Discharge Information *PRESCRIPTION DRUG MONITORING PROGRAM REVIEWED*: Not Applicable *COPY OF PRESCRIPTION DRUG MONITORING REPORT IN PATIENT ALE: Not Applicable Prescriptions: Ondansetron [Zofran] 4 mg BUCCAL Q6H PRN #20 tab PRN Reason: nausea or vomiting oxyCODONE HCl/Acetaminophen [Percocet 5-325 mg Tablet] 1 - 2 each PO Q4H PRN # 20 tablet PRN Reason: pain relief. Instructions: Chronic Pancreatitis Referrals: Rik Walls PA-C [Primary Care Provider] - Forms: ED Department Discharge Additional Instructions: Evaluation the emergency room today in regards to acute flareup of chronic pancreatitis with severe left upper quadrant abdominal pain rating through to her back characteristic of pancreatitis. More recently of been diagnosed with Muscogee's disease and are unable to keep down your cortisol medications today due to nausea and vomiting. You're treated in the ED with intramuscular injection of Dilaudid with Phenergan 25 mg to stop vomiting and Benadryl 50 mg to help stop vomiting as well. He also received 100 mg of Solu-Cortef which is a cortisol replacement hormone intramuscularly which will get to through the next couple of days. Trying sip on Gatorade/Powerade to do an effort to maintain hydration.script written for Zofran 4mg under the tongue every 4-6hrs as needed for nausea. Script written for percocet 5/325mg tabs 1-2 tabs every 4hrs as needed for pain relief.
== END 2019-02-24 15:23 | disposition home or self-care (01) ==
LOC: JD.ED 13:40
DX: K86.1 Other chronic pancreatitis (principal); E27.1 Primary adrenocortical insufficiency; E03.9 Hypothyroidism, unspecified; F41.9 Anxiety disorder, unspecified; F32.9 Major depressive disorder, single episode, unspecified; I10 Essential (primary) hypertension; Z79.899 Other long term (current) drug therapy; Z88.8 Allergy status to other drugs, medicaments and biological substances; Z88.6 Allergy status to analgesic agent
CPT/HCPCS: 96372; 99283; J1170; J1200; J1720; J2550; 99284

== ENCOUNTER 2019-03-01 12:45 | Emergency (ER) | payer BC, MEDICARE ==
[2019-03-01 13:08] VITALS: BP 136/93
== END 2019-03-01 13:45 | disposition left against medical advice (07) ==
LOC: JD.ED 12:45
DX: Z53.21 Procedure and treatment not carried out due to patient leaving prior to being seen by health care provider (principal)

== ENCOUNTER 2019-03-15 08:54 | Day surgery (SDC) | payer BC, MEDICARE ==
--- NOTE | 2019-03-15 08:13 | PCM.PREANE ---
Preanesthetic Assessment - Anesthesia/Transfusion/Family Hx Anesthesia History: Prior Anesthesia Without Reaction Family History of Anesthesia Reaction: No Transfusion History: No Prior Transfusion(s) Intubation History: Unknown - Review of Systems General: No Symptoms, Fatigue (anemia hemoglobin= 9.7) Pulmonary: No Symptoms (ETOH rarely) Gastrointestinal: No Symptoms (History of gastric sleeve/GERD), Abdominal Pain ( left upper quadrant), Diarrhea Neurological: No Symptoms ( short term memory loss-CVA with no deficits noted [id number] TIA), Dizziness (3-4 mopnths ago), Headache (chronic headaches, pseudotumor cerebri-Pineal Tumor Benign removed 2012), Seizure (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 Last seizure 2013 Brain shunt removed in 2013) Other: Reports: None (Secondary Adrenal Insufficiency), Easy Bruising, Diabetes (pre-diabetic), Thyroid Problems (hypothyroidism), Depression, Anxiety - Physical Assessment NPO Status Date: 03/14/19 NPO Status Time: 04:00 Pulse: 72 O2 Sat by Pulse Oximetry: 99 Respiratory Rate: 16 Blood Pressure: 135/84 Temperature: 36.2 C Height: 1.78 m Weight: 115.212 kg ASA Class: 3 Mental Status: Alert & Oriented x3 Airway Class: Mallampati = 3 Dentition: Reports: Broken Tooth/Teeth, Caries Thyro-Mental Finger Breadths: 3 Mouth Opening Finger Breadths: 3 ROM/Head Extension: Full Lungs: Clear to Auscultation, Normal Respiratory Effort Cardiovascular: Regular Rate, Regular Rhythm, No Murmurs - Lab Values: HGB: 9.7 All labs reviewed and noted and within acceptable ranges to proceed with scheduled procedure. - Imaging/EKG Impressions: EKG: SR rate=59, probable anteroseptal old infarct - Allergies Allergies/Adverse Reactions: Allergies Allergy/AdvReac Type Severity Reaction Status Date / Time buprenorphine [From Butrans] Allergy Itching Verified 03/14/19 12:06 metoclopramide HCl Allergy Itching Verified 03/14/19 12:06 [From Reglan] NSAIDS (Non-Steroidal Allergy Abdominal Verified 03/14/19 12:06 Anti-Inflamma Pain ketorolac [From Toradol] AdvReac Bleeding Verified 03/14/19 12:06 prochlorperazine AdvReac Vomiting Verified 03/14/19 12:06 [From Compazine] - Anesthesia Plan Pre-Op Medication Ordered: None - Acknowledgements Anesthesia Type Planned: MAC Pt an Appropriate Candidate for the Planned Anesthesia: Yes Alternatives and Risks of Anesthesia Discussed w Pt/Guardian: Yes Pt/Guardian Understands and Agrees with Anesthesia Plan: Yes PreAnesthesia Questionnaire - Past Health History Medical/Surgical History: Denies Medical/Surgical History HEENT History: Reports: Glaucoma, Otitis Media Cardiovascular History: Reports: Hypertension Other Cardiovascular History: tachycardia Respiratory History: Reports: None, Other (See Below) Gastrointestinal History: Reports: Chronic Constipation, Hemorrhoids, Pancreatitis, Other (See Below) Other Gastrointestinal History: chronic pancreatitis, LUQ pain, gastric sleeve procedure, hemorrhoids Genitourinary History: Reports: UTI, Recurrent 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: c section x3, tubes tied Musculoskeletal History: Reports: Arthritis, Fracture, Other (See Below) Other Musculoskeletal History: left foot fracture, elbow pain, wrist pain, weakness, falls Neurological History: 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 (See Below) Other Neuro History: pseudotumor, shunt, benign pineal brain tumor, memory loss , seizure disorder, vertigo, brain surgery x 16 Psychiatric History: Reports: Addiction, Anxiety, Depression 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, Hypothyroidism, Obesity /BMI 30+, Vitamin D Deficiency Other Endocrine/Metabolic History: hyperthyroidism, hypothyroidism, hashimotos, secondary adrenal insufficiency Hematologic History: Reports: Anemia, Other (See Below) Other Hematologic History: anti TPO antibody Immunologic History: Reports: None Oncologic (Cancer) History: Reports: None Dermatologic History: Reports: Cellulitis - Infectious Disease History Infectious Disease History: Reports: C-Difficile, MRSA Other Infectious Disease History: in 2006, 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." - Past Surgical History Head Surgeries/Procedures: Reports: Shunt HEENT Surgical History: Reports: Oral Surgery Other HEENT Surgeries/Procedures: [place] teeth removal Cardiovascular Surgical History: Reports: None Respiratory Surgical History: Reports: None GI Surgical History: Reports: Appendectomy, Bariatric Procedure, Cholecystectomy , Colonoscopy, EGD, ERCP Other GI Surgeries/Procedures: EUS Female Surgical History: Reports: Section, Tubal Ligation Other Female Surgeries/Procedures: C-SECTIONS X3 Endocrine Surgical History: Reports: None Neurological Surgical History: 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 (See Below) Other Neurological Surgeries/Procedures: brain tumor removal Musculoskeletal Surgical History: Reports: None Other Oncologic Surgeries/Procedures: Brain tumor removal Dermatological Surgical History: Reports: None - SUBSTANCE USE Smoking Status *Q: Never Smoker Recreational Drug Use History: No - HOME MEDS Home Medications: Home Meds Hydrocortisone [Cortef] 10 g PO 1200 11/05/18 [History] Hydrocortisone [Cortef] 20 mg PO QAM 11/05/18 [History] ALPRAZolam [Xanax] 0.5 mg PO BID PRN 01/22/19 [History] Levothyroxine [Synthroid] 100 mcg PO DAILY 03/14/19 [History] Mirtazapine 30 mg PO BEDTIME 03/14/19 [History] Pantoprazole Sodium [Protonix] 40 mg PO DAILY 03/14/19 [History] Prazosin HCl [Prazosin] 5 mg PO DAILY 03/14/19 [History] Vortioxetine Hydrobromide [Trintellix] 15 mg PO DAILY 03/14/19 [History] - CURRENT (IN HOUSE) MEDS Current Meds: Current Medications Lactated Ringer's (Ringers, Lactated) 1,000 mls @ 125 mls/hr IV ASDIRECTED EDSON Stop: 03/15/19 23:00 Lidocaine/Sodium Bicarbonate (Buffered Lidocaine 1% In Ns 8.4%) 0.25 ml IDERM ONETIME PRN PRN Reason: Prior to IV Start Stop: 03/15/19 18:00 Sodium Chloride (Saline Flush) 10 ml FLUSH ASDIRECTED PRN PRN Reason: Keep Vein Open Stop: 03/15/19 18:00
[~2019-03-15 08:54] MED LIST: Lactated Ringers 1,000 ML IV SCH; Lidocaine 1%/Sod Bicarbonate in NS 8.4% 1 ML Syringe IDERM PRN; Sodium Chloride 0.9% 10 ML Syringe FLUSH PRN
[2019-03-15] MEDS ORDERED: Propofol 200 MG/20 ML SDV ONE ×2 (09:13→09:38)
[2019-03-15] MEDS ORDERED: fentaNYL 100 MCG/2 ML SDV ONE (09:14)
[2019-03-15] MEDS ORDERED: Midazolam 1 MG/ML 2 ML SDV ONE (09:14)
[2019-03-15] MEDS ORDERED: Lidocaine 1% 4 ML ONE (09:14)
--- NOTE | 2019-03-15 10:08 | PCM48HPAN ---
Post Anesthesia Note - EVALUATION WITHIN 48HRS OF ANESTHETIC Vital Signs in Normal Range: Yes Patient Participated in Evaluation: Yes Respiratory Function Stable: Yes Airway Patent: Yes Cardiovascular Function Stable: Yes Hydration Status Stable: Yes Pain Control Satisfactory: Yes Nausea and Vomiting Control Satisfactory: Yes Mental Status Recovered: Yes Pulse Rate: 72 Resp Rate: 16 Temperature: 36.2 C Blood Pressure: 135/84 - COMMENTS/OBSERVATIONS Free Text/Narrative:: no anesthesia complications noted
[2019-03-15 10:34] VITALS: BP 118/74
--- NOTE | 2019-03-15 13:52 | OR ---
DATE OF OPERATION: 03/15/2019 SURGEON: Jose Maria Dye MD PREOPERATIVE DIAGNOSIS: Epigastric discomfort and history of Helicobacter pylori. POSTOPERATIVE DIAGNOSIS: Epigastric discomfort and history of Helicobacter pylori. OPERATION PERFORMED: Esophagogastroduodenoscopy with biopsy of the prepyloric antrum. ANESTHESIA: MAC. SPECIMEN: Gastric biopsy. OPERATIVE FINDINGS: Mild distal gastritis. INDICATION FOR PROCEDURE: This 43-year-old female has had a history of epigastric discomfort and GERD symptoms. She has had multiple episodes of H. pylori with treatment. DESCRIPTION OF PROCEDURE: After adequate preparation, a gastroscope was inserted into the esophagus. This was easily passed down to the distal esophagus. She showed no evidence of a hiatal hernia or distal esophagitis. There were no bleeding lesions or ulcerations. The scope was advanced into the stomach. Both forward and retroflexed views were done and were normal except for some minimal gastritis in the prepyloric area. The scope was advanced through the pylorus into the duodenum, which was normal. On withdrawal of the scope in the gastric antrum area, biopsy was taken for pathological evaluation. Air was suctioned from the stomach and the scope removed. We will now proceed with colonoscopy. ESTIMATED BLOOD LOSS: MMODAL /[id number]
--- NOTE | 2019-03-15 13:56 | OR ---
DATE OF OPERATION: 03/15/2019 SURGEON: Jose Maria Dye MD PREOPERATIVE DIAGNOSIS: Rectal bleeding with a history of hemorrhoids and screening colonoscopy. POSTOPERATIVE DIAGNOSIS: Rectal bleeding with a history of hemorrhoids and screening colonoscopy. OPERATION PERFORMED: Total colonoscopy. ANESTHESIA: MAC. SPECIMEN: None. OPERATIVE FINDINGS: Normal colonoscopy. RECOMMENDATION: Followup colonoscopy in 10 years for screening or sooner for symptoms. INDICATION FOR PROCEDURE: This 43-year-old female has some rectal bleeding by prior scope and was told she had internal hemorrhoids. DESCRIPTION OF PROCEDURE: After adequate preparation, a colonoscope was inserted into the rectum. This was easily passed all the way to the cecum. Confirmation of the cecum was made by visualization of the ileocecal valve and palpation in the right lower quadrant. A photograph of the ileocecal valve was taken. The bowel prep was excellent. On withdrawal of the scope, good examination of the colon was accomplished. She had no masses, polyps, bleeding sites, colitis, or diverticula. The rectal examination was also normal. Retroflexion of the scope in the rectum did not reveal any significant internal hemorrhoids at all and could not account for any of her rectal bleeding. Air was suctioned from the colon and the scope removed. ESTIMATED BLOOD LOSS: MMODAL /[id number]
--- NOTE | 2019-03-16 13:57 | OR ---
DATE OF OPERATION: 03/15/2019 SURGEON: Jose Maria Dye MD PREOPERATIVE DIAGNOSIS: Epigastric discomfort. POSTOPERATIVE DIAGNOSIS: Epigastric discomfort. OPERATION PERFORMED: Esophagogastroduodenoscopy with biopsy of the prepyloric antrum. ANESTHESIA: MAC. SPECIMEN: Gastric biopsy. OPERATIVE FINDINGS: Mild distal gastritis. INDICATION FOR PROCEDURE: This 43-year-old female has some epigastric discomfort and occasional GERD symptoms. DESCRIPTION OF PROCEDURE: After adequate preparation, a gastroscope was inserted into the esophagus. This was easily passed down to the distal esophagus. She showed no evidence of hiatal hernia or distal reflux esophagitis. There was no bleeding, lesions, or ulcerations. The scope was advanced into the stomach. Both forward and retroflexed views were done and were normal except for some minimal gastritis in the prepyloric area. No asaf ulcerations or masses. The scope was advanced through the pylorus and into the duodenum, which was normal. On withdrawal of the scope, the gastric antrum area was biopsied for pathological evaluation. Air was suctioned from the stomach and the scope removed. We will now proceed with colonoscopy. ESTIMATED BLOOD LOSS: MMODAL /[id number]
== END 2019-03-15 10:46 | disposition home or self-care (01) ==
LOC: JD.SDS 08:54
PROVIDERS: ATTEND Surgery
DX: K62.5 Hemorrhage of anus and rectum (principal); K29.50 Unspecified chronic gastritis without bleeding; K31.89 Other diseases of stomach and duodenum; K21.9 Gastro-esophageal reflux disease without esophagitis; I10 Essential (primary) hypertension; E03.9 Hypothyroidism, unspecified; E27.49 Other adrenocortical insufficiency; E06.3 Autoimmune thyroiditis; D50.9 Iron deficiency anemia, unspecified; F32.9 Major depressive disorder, single episode, unspecified; R73.03 Prediabetes; G93.2 Benign intracranial hypertension; Z88.6 Allergy status to analgesic agent; Z88.8 Allergy status to other drugs, medicaments and biological substances; Z98.84 Bariatric surgery status; Z79.899 Other long term (current) drug therapy
CPT/HCPCS: 43239; 45378; J2001; J2250; J2704; J3010; J7120

== ENCOUNTER 2019-03-18 09:13 | Emergency (ER) | payer BC, MEDICARE ==
[2019-03-18 09:24] VITALS: BP 162/109
--- NOTE | 2019-03-18 09:32 | EDM.PDOC ---
ED HPI GENERAL MEDICAL PROBLEM - General Chief Complaint: Abdominal Pain Stated Complaint: PANCREATIS Time Seen by Provider: 03/18/19 09:32 Source of Information: Reports: Patient, Family (spouse) History Limitations: Reports: No Limitations - History of Present Illness INITIAL COMMENTS - FREE TEXT/NARRATIVE: 43-year-old female presents to the ED with diffuse upper abdominal pain rating to to her left upper mid back. Patient has a history of chronic relapsing pancreatitis usually without any elevation of her pancreatic enzymes. The exact cause of this has never been elucidated. She has had worsening pancreatitis since having her gallbladder removed. Socially she has been diagnosed with adrenal insufficiency. She is usually on saw you Cortef 10 mg every morning. For the last 2 days she's had intractable nausea and vomiting has been unable to keep down any medications. He is constant and rated as 10 out of 10 in the upper abdomen just to the left of the midline. Emesis is been bilious. She reports she had an EGD done by Dr. Coburn on Thursday this week. He did some biopsies of her stomach but she hasn't found out the results. Emesis but has not contained any blood. She continues to have loose stools. She states for 2 days last week they were actually formed up. She reports that she usually has mild pain in the left upper quadrant of the abdomen but it has been better the last 2 weeks. Remains on pancreatic enzyme supplements. She is impossible to start an IV on and does not have a PICC line in. Therefore medications almost always given IM. Onset: Sudden Onset Date: 03/17/19 Onset Time: 04:00 (Has been vomiting almost intractably since 4:00 yesterday morning.) Duration: Day(s):, Constant, Getting Worse Location: Reports: Abdomen (Persistent epigastric left upper quadrant abdominal pain radiating through to her back compatible with recurrent chronic relapsing pancreatitis associated with nausea and vomiting.) Quality: Reports: Ache, Other Severity: Severe (Deep aching pain associated nausea and vomiting) Improves with: Reports: None ( 10 out of 10) Worsens with: Reports: Eating Context: Denies: Activity, Exercise, Lifting, Sick Contact, Trauma, Other Associated Symptoms: Reports: Loss of Appetite, Malaise, Nausea/Vomiting, Weakness, Other (Lightheaded and dizzy.). 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) Upper Abdomen Pain Score (Numeric/FACES): 10 - Related Data Allergies Allergy/AdvReac Type Severity Reaction Status Date / Time buprenorphine [From Butrans] Allergy Itching Verified 03/18/19 09:25 metoclopramide HCl Allergy Itching Verified 03/18/19 09:25 [From Reglan] NSAIDS (Non-Steroidal Allergy Abdominal Verified 03/18/19 09:25 Anti-Inflamma Pain ketorolac [From Toradol] AdvReac Bleeding Verified 03/18/19 09:25 prochlorperazine AdvReac Vomiting Verified 03/18/19 09:25 [From Compazine] Home Meds: Home Meds Hydrocortisone [Cortef] 10 mg PO 1200 11/05/18 [History] Hydrocortisone [Cortef] 20 mg PO QAM 11/05/18 [History] ALPRAZolam [Xanax] 0.5 mg PO BID PRN 01/22/19 [History] Levothyroxine [Synthroid] 100 mcg PO DAILY 03/14/19 [History] Mirtazapine 30 mg PO BEDTIME 03/14/19 [History] Pantoprazole Sodium [Protonix] 40 mg PO DAILY 03/14/19 [History] Prazosin HCl [Prazosin] 5 mg PO DAILY 03/14/19 [History] Vortioxetine Hydrobromide [Trintellix] 15 mg PO DAILY 03/14/19 [History] Iron 1 tab PO DAILY 03/18/19 [History] Past Medical History - Past Health History Medical/Surgical History: Denies Medical/Surgical History HEENT History: Reports: Glaucoma, Otitis Media Cardiovascular History: Reports: Hypertension Other Cardiovascular History: tachycardia Respiratory History: Reports: None, Other (See Below) Gastrointestinal History: Reports: Chronic Constipation, Hemorrhoids, Pancreatitis, Other (See Below) Other Gastrointestinal History: chronic pancreatitis, LUQ pain, gastric sleeve procedure, hemorrhoids Genitourinary History: Reports: UTI, Recurrent 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: 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 SERVICE 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: c section x3, tubes tied Musculoskeletal History: Reports: Arthritis, Fracture, Other (See Below) Other Musculoskeletal History: left foot fracture, elbow pain, wrist pain, weakness, falls Neurological History: 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 (See Below) Other Neuro History: pseudotumor, shunt, benign pineal brain tumor, memory loss , seizure disorder, vertigo, brain surgery x 16 Psychiatric History: Reports: Addiction, Anxiety, Depression Endocrine/Metabolic History: Reports: Clovis's Disease, Hypothyroidism, Obesity /BMI 30+, Vitamin D Deficiency Other Endocrine/Metabolic History: hyperthyroidism, hypothyroidism, hashimotos, secondary adrenal insufficiency Hematologic History: Reports: Anemia, Other (See Below) Other Hematologic History: anti TPO antibody Immunologic History: Reports: None Oncologic (Cancer) History: Reports: None Dermatologic History: Reports: Cellulitis - Infectious Disease History Infectious Disease History: Reports: C-Difficile, MRSA Other Infectious Disease History: in 2006, 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." - Past Surgical History Head Surgeries/Procedures: Reports: Shunt HEENT Surgical History: Reports: Oral Surgery Other HEENT Surgeries/Procedures: [place] teeth removal Cardiovascular Surgical History: Reports: None Respiratory Surgical History: Reports: None GI Surgical History: Reports: Appendectomy, Bariatric Procedure, Cholecystectomy , Colonoscopy, EGD, ERCP Other GI Surgeries/Procedures: EUS Female Surgical History: Reports: Section, Tubal Ligation Other Female Surgeries/Procedures: C-SECTIONS X3 Endocrine Surgical History: Reports: None Neurological Surgical History: 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 (See Below) Other Neurological Surgeries/Procedures: brain tumor removal Musculoskeletal Surgical History: Reports: None Other Oncologic Surgeries/Procedures: Brain tumor removal Dermatological Surgical History: Reports: None Social & Family History - Family History Family Medical History: Noncontributory Cardiac: Reports: Bypass, Hypertension, [place] Respiratory: Reports: Asthma Oncologic: Reports: Colon - Tobacco Use Smoking Status *Q: Never Smoker Second Hand Smoke Exposure: No - Caffeine Use Caffeine Use: Reports: None Other Caffeine Use: 1 cup daily - Recreational Drug Use Recreational Drug Use: No - Living Situation & Occupation Living situation: Reports: , with Spouse Occupation: Unemployed ED ROS GENERAL - Review of Systems Review Of Systems: See Below Constitutional: Reports: Chills, Malaise, Fatigue, Decreased Appetite (From not being able to sleep). Denies: Fever HEENT: Reports: No Symptoms Respiratory: Reports: Shortness of Breath (Subjective shortness of breath that she can take a full deep breath as it makes the abdominal pain worse.) Cardiovascular: Reports: No Symptoms Endocrine: Reports: Fatigue GI/Abdominal: Reports: Abdominal Pain, Diarrhea (See history of present illness usually has chronic loose stools. Steatorrhea.) : Reports: No Symptoms Musculoskeletal: Reports: Neck Pain, Back Pain Skin: Reports: No Symptoms Neurological: Reports: Headache Psychiatric: Reports: No Symptoms (Occasional headaches due to pseudotumor cerebri.) Hematologic/Lymphatic: Reports: No Symptoms Immunologic: Reports: No Symptoms ED EXAM, GI/ABD - Physical Exam Exam: See Below Exam Limited By: No Limitations General Appearance: Alert, WD/WN, Other (Mildly pallid. Afebrile. Pulse 91 and sinus respiratory 16 BP elevated 160-109 presumably due to pain response. Pulse ox 99%) Eyes: Bilateral: Normal Appearance (No scleral icterus.) Throat/Mouth: Other Head: Atraumatic, Normocephalic (Tongue is mildly dry and coated) Neck: Normal Inspection, Supple, Non-Tender, Full Range of Motion. No: Lymphadenopathy (L), Lymphadenopathy (R) Respiratory/Chest: No Respiratory Distress, Lungs Clear, Normal Breath Sounds, No Accessory Muscle Use Cardiovascular: Normal Peripheral Pulses, Regular Rate, Rhythm, No Edema, No Gallop, No Murmur, No Rub GI/Abdominal Exam: No Organomegaly, No Abnormal Bruit, No Mass, Distended (My only distended and tympanitic to percussion.), Guarding, Tender (Maximal point of tenderness is just to the left of the midline at the costal margin.), Abnormal Bowel Sounds (Bowel sounds are quiet sent throughout all 4 quadrants.) . No: Rigid ( Mild guarding is present), Rebound Back Exam: Normal Inspection, Full Range of Motion, CVA Tenderness (L) Extremities: Normal Inspection, Normal Range of Motion, Non-Tender Neurological: Alert, Oriented, CN II-XII Intact, Normal Cognition Psychiatric: Normal Affect, Normal Mood Skin Exam: Warm, Dry, Intact, No Rash (Slight pallor.), Pallor Course - Vital Signs Last Recorded V/S: Last Vital Signs Temp 36.0 C 03/18/19 09:20 Pulse 91 03/18/19 09:20 Resp 16 03/18/19 09:20 BP 162/109 H 03/18/19 09:20 Pulse Ox 99 03/18/19 09:20 - Orders/Labs/Meds Meds: Medications Discontinued Medications Generic Name Dose Route Start Last Admin Trade Name Freq PRN Reason Stop Dose Admin Diphenhydramine HCl 50 mg 03/18/19 09:34 03/18/19 10:08 Benadryl IM 03/18/19 09:35 50 mg ONETIME ONE Administration Hydrocortisone Sodium Succinate 100 mg 03/18/19 09:33 03/18/19 10:07 Solu-Cortef IM 03/18/19 09:34 100 mg ONETIME ONE Administration Hydromorphone HCl 2 mg 03/18/19 09:55 03/18/19 10:08 Dilaudid IM 03/18/19 09:56 2 mg ONETIME STA Administration Promethazine HCl 25 mg 03/18/19 09:35 03/18/19 10:07 Phenergan IM 03/18/19 09:36 25 mg ONETIME ONE Administration - Radiology Interpretation Free Text/Narrative:: 43-year-old female presents the ED with recurrence of severe upper abdominal pain epigastrium and left upper quadrant readings to to her back characteristic of chronic relapsing pancreatitis which she is known to suffer from. Should intractable nausea and vomiting for 2 days. Of note the patient has adrenal insufficiency and has been unable to keep down any medications including her Solu-Cortef. We have stopped doing labs as most the time her electrolytes have been normal and pancreatic enzymes are usually only mildly elevated. She is impossible to start an IV on as all of her veins been used up. Medications will therefore be given IM. Will receive Phenergan 25 mg IM with Benadryl 50 mg IM. She will be given Solu-Cortef 100 mg IM and Dilaudid 2 mg IM for pain relief. She will then tentatively be discharged home in the care of her who is with her today as she lives in [place]. Departure - Departure Time of Disposition: 10:05 Disposition: Home, Self-Care 01 Condition: Fair Clinical Impression: Relapsing chronic pancreatitis, Adrenal insufficiency - Discharge Information *PRESCRIPTION DRUG MONITORING PROGRAM REVIEWED*: No *COPY OF PRESCRIPTION DRUG MONITORING REPORT IN PATIENT ALE: No Instructions: Chronic Pancreatitis Referrals: Rik Walls PA-C [Primary Care Provider] - Forms: ED Department Discharge Additional Instructions: Evaluation in the emergency room this morning in regards to recurrence of pancreatitis involving severe pain left upper quadrant of the abdomen and epigastrium relating 30 are back. Associated intractable nausea and vomiting make it impossible to keep down her medications including her Solu-Cortef for your adrenal insufficiency. Clinically you're mildly volume depleted. Given IM injections of pain medication Dilaudid 2 mg with Phenergan 25 mg IM for nausea and vomiting relief. Benadryl 50 mg and Solu-Cortef 100 mg IM as well to prevent adrenal insufficiency crisis. Home to sleep. Resume clear fluid diet when able.
[2019-03-18] MEDS ORDERED: Hydrocortisone Sodium Succinate 100 MG/2 ML SDV IM ONE (09:33)
[2019-03-18] MEDS ORDERED: HYDROmorphone 1 MG/ML Syringe IVPUSH ONE (09:34)
[2019-03-18] MEDS ORDERED: diphenhydrAMINE 50 MG/ML SDV IM ONE (09:34)
[2019-03-18] MEDS ORDERED: Promethazine 25 MG/ML SDV IM ONE (09:35)
[2019-03-18] MEDS ORDERED: HYDROmorphone 1 MG/ML Syringe IM STA (09:55)
== END 2019-03-18 10:15 | disposition home or self-care (01) ==
LOC: JD.ED 09:13
DX: K86.1 Other chronic pancreatitis (principal); E27.40 Unspecified adrenocortical insufficiency; E03.9 Hypothyroidism, unspecified; I10 Essential (primary) hypertension; Z79.899 Other long term (current) drug therapy; Z88.8 Allergy status to other drugs, medicaments and biological substances
CPT/HCPCS: 96372; 99283; J1170; J1200; J1720; J2550

== ENCOUNTER 2019-03-20 10:38 | Emergency (ER) | payer BC, MEDICARE ==
[2019-03-20 11:02] VITALS: BP 171/106
[2019-03-20] MEDS ORDERED: diphenhydrAMINE 50 MG/ML SDV IM ONE (11:12)
[2019-03-20] MEDS ORDERED: Hydrocortisone Sodium Succinate 100 MG/2 ML SDV IVPUSH ONE (11:13)
[2019-03-20] MEDS ORDERED: Promethazine 25 MG/ML SDV IM ONE (11:13)
[2019-03-20] MEDS ORDERED: HYDROmorphone 1 MG/ML Syringe IVPUSH ONE (11:13)
--- NOTE | 2019-03-20 11:18 | EDM.PDOC ---
ED HPI GENERAL MEDICAL PROBLEM - General Chief Complaint: Abdominal Pain Stated Complaint: PANCREATITIS Time Seen by Provider: 03/20/19 11:12 Source of Information: Reports: Patient, Family (spouse) History Limitations: Reports: No Limitations - History of Present Illness INITIAL COMMENTS - FREE TEXT/NARRATIVE: 43-year-old female presents once again to the ED with severe left upper quadrant epigastric abdominal pain rating to to her left mid back characteristic of recurrent bouts of pancreatitis which she suffers from. She is felt to have a chronic relapsing form of pancreatitis and sometimes the enzymes are up and sometimes or not. She had an EGD done by Dr. Dye on Thursday this last week and since then has had increased left upper quadrant abdominal pain with nausea and vomiting. She was seen in the ED 2 days ago and treated with IM injection of Benadryl 50 mg with Phenergan 25 mg and Dilaudid 2 mg IM for pain relief. She states this did provide her some sleep and some relief of the pain for the last day and a half. She woke in the middle of the night again vomiting and with severe right upper quadrant abdominal pain. She states she is vomiting and having diarrhea. She's had 4 loose yellow watery stools thus far this morning. Patient does take pancreatic enzymes. She also has adrenal insufficiency was in able to keep down her cortisol today. I had given her 100 mg of Solu-Cortef IM on Thursday 2 days ago. Onset: Today Onset Date: 03/20/19 Onset Time: 02:00 Duration: Hour(s): Location: Reports: Abdomen (Severe pain right upper quadrant of the abdomen readings to to the right back flank area.) Quality: 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 ( Deep constant aching pain.) Severity: Severe (10 out of 10) Improves with: Reports: None Worsens with: Reports: None, Eating Context: 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 (Recurrent right upper quadrant abdominal pain felt to be secondary to chronic relapsing pancreatitis). Denies: Activity, Exercise, Lifting, Sick Contact, Trauma Associated Symptoms: Reports: Nausea/Vomiting, Other (Intractable nausea and vomiting loose yellow watery diarrhea stools 4 this morning) Treatments GLOBAL CTO: 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 (see below) (Nothing will stay down Zofran sublingual did not stop the vomiting) Left Upper Abdomen Pain Score (Numeric/FACES): 9 - Related Data Allergies Allergy/AdvReac Type Severity Reaction Status Date / Time buprenorphine [From Sravans] Allergy Itching Verified 03/20/19 10:56 metoclopramide HCl Allergy Itching Verified 03/20/19 10:56 [From Reglan] NSAIDS (Non-Steroidal Allergy Abdominal Verified 03/20/19 10:56 Anti-Inflamma Pain ketorolac [From Toradol] AdvReac Bleeding Verified 03/20/19 10:56 prochlorperazine AdvReac Vomiting Verified 03/20/19 10:56 [From Compazine] Home Meds: Home Meds Hydrocortisone [Cortef] 10 mg PO 1200 11/05/18 [History] Hydrocortisone [Cortef] 20 mg PO QAM 11/05/18 [History] ALPRAZolam [Xanax] 0.5 mg PO BID PRN 01/22/19 [History] Levothyroxine [Synthroid] 100 mcg PO DAILY 03/14/19 [History] Mirtazapine 30 mg PO BEDTIME 03/14/19 [History] Pantoprazole Sodium [Protonix] 40 mg PO DAILY 03/14/19 [History] Prazosin HCl [Prazosin] 5 mg PO DAILY 03/14/19 [History] Vortioxetine Hydrobromide [Trintellix] 15 mg PO DAILY 03/14/19 [History] Iron 1 tab PO DAILY 03/18/19 [History] Ondansetron [Zofran] 4 mg BUCCAL Q6H PRN #10 tab 03/20/19 [Rx] oxyCODONE HCl/Acetaminophen [Percocet 5-325 mg Tablet] 1 - 2 each PO Q4H PRN # 20 tablet 03/20/19 [Rx] predniSONE [Prednisone] 20 mg PO ASDIRECTED #20 tablet 03/20/19 [Rx] Past Medical History - Past Health History Medical/Surgical History: Denies Medical/Surgical History HEENT History: Reports: Glaucoma, Otitis Media Cardiovascular History: Reports: Hypertension Other Cardiovascular History: tachycardia Respiratory History: Reports: None, Other (See Below) Gastrointestinal History: Reports: Chronic Constipation, Hemorrhoids, Pancreatitis, Other (See Below) Other Gastrointestinal History: chronic pancreatitis, LUQ pain, gastric sleeve procedure, hemorrhoids Genitourinary History: Reports: UTI, Recurrent RESPITE COORDINATOR History: 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 RESPITE COORDINATOR History: c section x3, tubes tied Musculoskeletal History: Reports: Arthritis, Fracture, Other (See Below) Other Musculoskeletal History: left foot fracture, elbow pain, wrist pain, weakness, falls Neurological History: 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 (See Below) Other Neuro History: pseudotumor, shunt, benign pineal brain tumor, memory loss , seizure disorder, vertigo, brain surgery x 16 Psychiatric History: Reports: Addiction, Anxiety, Depression Endocrine/Metabolic History: Reports: [place]'s Disease, Hypothyroidism, Obesity /BMI 30+, Vitamin D Deficiency Other Endocrine/Metabolic History: hyperthyroidism, hypothyroidism, hashimotos, secondary adrenal insufficiency Hematologic History: Reports: Anemia, Other (See Below) Other Hematologic History: anti TPO antibody Immunologic History: Reports: None Oncologic (Cancer) History: Reports: None Dermatologic History: Reports: Cellulitis - Infectious Disease History Infectious Disease History: Reports: C-Difficile, MRSA Other Infectious Disease History: in 2006, 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." - Past Surgical History Head Surgeries/Procedures: Reports: Shunt HEENT Surgical History: Reports: Oral Surgery Other HEENT Surgeries/Procedures: [place] teeth removal Cardiovascular Surgical History: Reports: None Respiratory Surgical History: Reports: None GI Surgical History: Reports: Appendectomy, Bariatric Procedure, Cholecystectomy , Colonoscopy, EGD, ERCP Other GI Surgeries/Procedures: EUS Female Surgical History: Reports: Section, Tubal Ligation Other Female Surgeries/Procedures: C-SECTIONS X3 Endocrine Surgical History: Reports: None Neurological Surgical History: 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 (See Below) Other Neurological Surgeries/Procedures: brain tumor removal Musculoskeletal Surgical History: Reports: None Other Oncologic Surgeries/Procedures: Brain tumor removal Dermatological Surgical History: Reports: None Social & Family History - Family History Family Medical History: Noncontributory Cardiac: Reports: Bypass, Hypertension, [place] Respiratory: Reports: Asthma Oncologic: Reports: Colon - Tobacco Use Smoking Status *Q: Never Smoker Second Hand Smoke Exposure: No - Caffeine Use Caffeine Use: Reports: None Other Caffeine Use: 1 cup daily - Recreational Drug Use Recreational Drug Use: No - Living Situation & Occupation Living situation: Reports: , with Spouse Occupation: Unemployed ED ROS GENERAL - Review of Systems Review Of Systems: See Below Constitutional: Reports: Chills, Malaise, Weakness, Fatigue, Decreased Appetite. Denies: Fever HEENT: Reports: No Symptoms Respiratory: Reports: Shortness of Breath Cardiovascular: Reports: No Symptoms Endocrine: Reports: Fatigue GI/Abdominal: Reports: Abdominal Pain (Severe left upper quadrant abdominal pain ), Diarrhea (Intractable nausea and vomiting. Loose yellow watery stools.), Nausea, Vomiting : Reports: No Symptoms, Other (Has not put out much urine today.) Musculoskeletal: Reports: Back Pain Skin: Reports: No Symptoms Neurological: Reports: Dizziness, Headache Psychiatric: Reports: No Symptoms Hematologic/Lymphatic: Reports: No Symptoms Immunologic: Reports: No Symptoms ED EXAM, GI/ABD - Physical Exam Exam: See Below Exam Limited By: No Limitations General Appearance: Alert, WD/WN, Moderate Distress (Seems to be a lot more pain than she was 2 days ago.) Eyes: Bilateral: Normal Appearance Throat/Mouth: Other (Tongue is mildly dry and coated) Head: Atraumatic, Normocephalic Neck: Normal Inspection, Supple, Non-Tender, Full Range of Motion. No: Lymphadenopathy (L), Lymphadenopathy (R) Respiratory/Chest: No Respiratory Distress, Lungs Clear, Normal Breath Sounds, Chest Non-Tender Cardiovascular: Normal Peripheral Pulses, Regular Rate, Rhythm, No Edema, No Gallop, No Murmur, No Rub, Other (Blood pressure is elevated 170 11/16/05 presumably due to pain response.) GI/Abdominal Exam: Soft, Guarding (with mild guarding ), Tender (Tender to palpation left upper quadrant ), Abnormal Bowel Sounds (Bowel sounds are fairly quiet sent in all 4 quadrants.). No: Rigid, Rebound Back Exam: CVA Tenderness (L). No: CVA Tenderness (R) (Mild) Extremities: Normal Inspection, Normal Range of Motion, Non-Tender. No: Pedal Edema Neurological: Alert, Oriented, CN II-XII Intact, Normal Cognition Psychiatric: Anxious Skin Exam: Warm, Dry, Intact, Normal Color, No Rash Course - Vital Signs Last Recorded V/S: Last Vital Signs Temp 36.3 C 03/20/19 10:59 Pulse 86 03/20/19 10:59 Resp 16 03/20/19 10:59 BP 171/106 H 03/20/19 10:59 Pulse Ox 100 03/20/19 10:59 - Orders/Labs/Meds Orders: Active Orders 24 hr Category Date Time Status Abdomen Pelvis wo Cont [CT] Stat Exams 03/20/19 11:15 Taken Labs: Laboratory Tests 03/20/19 03/20/19 Range/Units 11:34 11:34 WBC 9.28 (3.98-10.04) K/mm3 RBC 3.92 L (3.98-5.22) M/mm3 Hgb 10.3 L (11.2-15.7) gm/L Hct 34.3 (34.1-44.9) % MCV 87.5 (79.4-94.8) fl MCH 26.3 (25.6-32.2) pg MCHC 30.0 L (32.2-35.5) g/dl RDW Std Deviation 54.4 H (36.4-46.3) fL Plt Count 252 (182-369) K/mm3 MPV 10.1 (9.4-12.3) fl Neutrophils % (Manual) 55 (40-60) % Band Neutrophils % 0 (0-10) % Lymphocytes % (Manual) 42 H (20-40) % Atypical Lymphs % 0 % Monocytes % (Manual) 3 (2-10) % Eosinophils % (Manual) 0 L (0.7-5.8) % Basophils % (Manual) 0 L (0.1-1.2) Platelet Estimate Adequate RBC Morph Comment Normal Sodium 144 (136-145) mEq/L Potassium 3.2 L (3.5-5.1) mEq/L Chloride 105 (98-107) mEq/L Carbon Dioxide 29 (21-32) mEq/L Anion Gap 13.2 (5-15) BUN 10 (7-18) mg/dL Creatinine 0.9 (0.55-1.02) mg/dL Est Cr Clr Drug Dosing 86.26 mL/min Estimated GFR (MDRD) > 60 (>60) mL/min BUN/Creatinine Ratio 11.1 L (14-18) Glucose 88 (74-106) mg/dL Calcium 8.8 (8.5-10.1) mg/dL Total Bilirubin 0.2 (0.2-1.0) mg/dL AST 13 L (15-37) U/L ALT 15 (14-59) U/L Alkaline Phosphatase 53 (46-116) U/L C-Reactive Protein < 0.2 (<1.0) mg/dL Total Protein 7.6 (6.4-8.2) g/dl Albumin 3.6 (3.4-5.0) g/dl Globulin 4.0 gm/dL Albumin/Globulin Ratio 0.9 L (1-2) Amylase 64 (25-115) U/L Lipase 242 (73-393) U/L Meds: Medications Discontinued Medications Generic Name Dose Route Start Last Admin Trade Name Jean-Pierreq PRN Reason Stop Dose Admin Diphenhydramine HCl 50 mg 03/20/19 11:12 03/20/19 11:39 Benadryl IM 03/20/19 11:13 50 mg ONETIME ONE Administration Hydrocortisone Sodium Succinate 100 mg 03/20/19 11:13 03/20/19 11:50 Solu-Cortef IVPUSH 03/20/19 11:14 Not Given ONETIME ONE Hydrocortisone Sodium Succinate 100 mg 03/20/19 11:20 03/20/19 11:37 Solu-Cortef IM 03/20/19 11:21 100 mg ONETIME ONE Administration Hydromorphone HCl 2 mg 03/20/19 11:13 03/20/19 11:50 Dilaudid IVPUSH 03/20/19 11:14 Not Given ONETIME ONE Hydromorphone HCl 2 mg 03/20/19 11:21 03/20/19 11:39 Dilaudid IM 03/20/19 11:22 2 mg ONETIME ONE Administration Promethazine HCl 25 mg 03/20/19 11:13 03/20/19 11:38 Phenergan IM 03/20/19 11:14 25 mg ONETIME ONE Administration - Radiology Interpretation Free Text/Narrative:: 43-year-old female presents to the ED with severe left upper quadrant abdominal pain characteristic of her chronic relapsing pancreatitis. It is associated with intractable nausea and vomiting since 2:00 this morning and loose yellow watery diarrhea 4 stools. Patient also has adrenal insufficiency and is unable to keep down any meds today. She was seen in the ED for the same thing 2 days ago. She had an EGD done 5 days ago and since that time seems to have a flareup of her pancreatitis. She pain at present is worse than it's been for a long time. A5 of illness. Her CT of the abdomen will be done without contrast to make sure should not not have a pancreatic pseudocyst. She will have routine labs done including amylase and lipase although often her enzymes are normal in light of chronic pancreatitis. She will receive 100 mg of Solu-Cortef IM. Dilaudid 2 mg IM with Benadryl 50 mg IM and Phenergan 25 mg IM. - Re-Assessments/Exams Free Text/Narrative Re-Assessment/Exam: 03/20/19 12:31 White count is normal at 9.28. 55% neutrophils with no band cells reported. Hemoglobin is a little on the low side at 10.3. Hematocrit is 34.3. Platelet count is 252,000. Sodium 144 potassium slightly low at 3.2. Chloride 105 with a bicarbonate 29. Anion gap is 13.2 BUN is 10. Creatinine is 0.9. GFR greater than 60. Blood sugar is 88. Calcium is 8.8.. Total bilirubin is 0.2. AST is 13 ALT is 15. Alk phosphatase is 53. C-reactive protein is less than 0.2. Total protein is 7.6 with an albumin fraction of 3.6. Lipase is currently 242 and amylase is 64 both within normal limits. 03/20/19 12:36 CT the abdomen has been completed without oral or IV contrast. It reveals that she has had a normal-appearing liver. Gallbladder is absent with surgical clips in the gallbladder fossa. Spleen is normal. The pancreas is mildly edematous. Mild peripancreatic inflammatory changes consistent with mild pancreatitis. She has had previous gastric surgery. She has a catheter that enters the left upper lateral quadrant of the abdomen and lies just inferior to the pancreas. The other and terminates in the thoracic spinal canal another catheter enters in the anterior abdominal wall and in terminates in the left pelvis which I believe is her ventriculoperitoneal shunt. Both kidneys are normal as are the ureters. No free fluid in the pelvis. Bladder fills with contrast. There is several loops of bowel containing stool. Brings into question the amount of diarrhea she says she is experiencing. Appendix is visualized is in and is considered normal. Plan will be to send her home with oral pain medications as I have no criteria to admit her to the hospital. She was thinking she would need admission to the hospital. We will try and control her pain as an outpatient. She has an upcoming appoint with pain management people. She ran out of SmartMenuCard yesterday and will refill this. I'm also going to place her on a short course of prednisone 20 mg twice a day for 6 days and then once daily in the morning for another 6 days. She will not take her Solu- Cortef while she is on the prednisone. Departure - Departure Time of Disposition: 12:48 Disposition: Home, Self-Care 01 Condition: Fair Clinical Impression: Chronic relapsing pancreatitis Abdominal pain Qualifiers: Abdominal location: left upper quadrant Qualified Code(s): R10.12 - Left upper quadrant pain Nausea and vomiting Qualifiers: Vomiting type: unspecified Vomiting Intractability: non-intractable Qualified Code(s): R11.2 - Nausea with vomiting, unspecified - Discharge Information *PRESCRIPTION DRUG MONITORING PROGRAM REVIEWED*: Not Applicable *COPY OF PRESCRIPTION DRUG MONITORING REPORT IN PATIENT ALE: Not Applicable Prescriptions: Ondansetron [Zofran] 4 mg BUCCAL Q6H PRN #10 tab PRN Reason: nausea or vomiting oxyCODONE HCl/Acetaminophen [Percocet 5-325 mg Tablet] 1 - 2 each PO Q4H PRN # 20 tablet PRN Reason: pain relief. predniSONE [Prednisone] 20 mg PO ASDIRECTED #20 tablet Referrals: Rik Walls PA-C [Primary Care Provider] - Forms: ED Department Discharge Additional Instructions: Evaluation in the emergency room today in regards to development of increased left upper quadrant abdominal pain rating to to your back with associated nausea and vomiting and diarrhea. History suggests that you have chronic relapsing pancreatitis. You're treated in the ED with intramuscular medication since IV access has been unsuccessful many times in the past. You are given Benadryl 50 mg IM with Dilaudid 2 mg IM and Phenergan 25 mg IM for pain and nausea relief. 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 Lab work revealed no abnormalities other than slightly low serum potassium level at 3.2 which is from not being able to eat. The serum lipase which is a marker of pancreatitis was 242 well within normally range and serum amylase was [address] of the abdomen was performed due to increasing pain over a period of 5 days to make sure you were not developing a pancreatic pseudocyst. It reveals a normal- appearing of pancreas with no obvious inflammation around it today. Previous bariatric surgery. Gallbladder is absent. You're ventriculoperitoneal shunt enters the left upper quadrant of the abdomen and lies inferior to the pancreas. No free fluid was appreciated in the abdomen. Air is still some formed stool within the right sided and transverse colon. Treatment at home is to continue clear fluids as you are usually do. Diet as tolerated. Zofran 4 mg under the tongue every 4 hours as needed for nausea relief. Percocet tabs 5/3/ 25 milligrams one or 2 every 4-6 hours for pain relief. Start prednisone 20 mg tomorrow twice daily breakfast and supper for 7 days and then 1 tablet in the morning only for another 6 days to see if this will bring relief of the abdominal pain. He would not take your normal Solu-Cortef medication until finishing the prednisone. Follow up with pain management physician as planned. - My Orders Last 24 Hours: My Active Orders 03/20/19 11:15 Abdomen Pelvis wo Cont [CT] Stat - Assessment/Plan Last 24 Hours: My Active Orders 03/20/19 11:15 Abdomen Pelvis wo Cont [CT] Stat
[2019-03-20] MEDS ORDERED: Hydrocortisone Sodium Succinate 100 MG/2 ML SDV IM ONE (11:20)
[2019-03-20] MEDS ORDERED: HYDROmorphone 1 MG/ML Syringe IM ONE (11:21)
--- NOTE | 2019-03-21 07:43 | CT ---
CT abdomen and pelvis Technique: Multiple axial sections were obtained from above the dome of the diaphragm inferiorly through the pubic symphysis. Intravenous and oral contrast not utilized. Comparison: Prior CT abdomen and pelvis exam of 06/20/17. Findings: Small portion of the visualized lung bases show nothing acute. Noncontrast appearance of the liver and spleen appears within normal limits. Adrenal glands show no nodule. Surgical clips are seen from prior cholecystectomy. Previous gastric surgery is seen. Minimal edema appears to be present within the pancreatic head. Kidneys show no abnormal calcifications or soft tissue abnormality. Aorta shows no aneurysm. Appendix not visualized. No pelvic mass or adenopathy is seen. Abdominal catheter is seen. Catheter is also seen within the epidural space terminating within the distal thoracic spine. Bone window settings were reviewed which show slight degenerative change scattered within the spine. Impression: 1. Minimal pancreatitis suggested. 2. Incidental catheters. Other incidental findings. Diagnostic code #3 I agree with preliminary report from [facility], finalized on 03/20/19, 2:41 PM Central Time
== END 2019-03-20 13:00 | disposition home or self-care (01) ==
LOC: JD.ED 10:38
DX: K86.1 Other chronic pancreatitis (principal); R11.2 Nausea with vomiting, unspecified; I10 Essential (primary) hypertension; Z88.8 Allergy status to other drugs, medicaments and biological substances; Z79.899 Other long term (current) drug therapy
CPT/HCPCS: 36415; 74176; 80053; 82150; 83690; 85007; 85027; 86140; 96372; 99284; J1170; J1200; J1720; J2550

== ENCOUNTER 2019-03-26 11:40 | Emergency (ER) | payer BC, MEDICARE ==
[2019-03-26] MEDS ORDERED: Ketorolac 30 MG/ML SDV IM ONE (12:19)
[2019-03-26] MEDS ORDERED: diphenhydrAMINE 25 MG Cap PO ONE (12:42)
--- NOTE | 2019-03-26 12:42 | EDM.PDOC ---
ED HPI GENERAL MEDICAL PROBLEM - General Chief Complaint: Headache Stated Complaint: FELL DOWN THE STAIRS Time Seen by Provider: 03/26/19 11:55 Source of Information: Reports: Patient History Limitations: Reports: No Limitations - History of Present Illness INITIAL COMMENTS - FREE TEXT/NARRATIVE: 43 yo F with multiple recent visits to the ED, usually drug-seeking, comes in today for complaints of neck, R elbow and R hip pain s/p fall down stairs. She states she took a hot shower then felt "dizzy" and fell down about 10 steps at home. She says she hit the back of her head and is now having double vision. She denies any LOC, nausea or vomiting. She states she has a headache that is "creeping up", about a 6-7/10. She says she only took Tylenol at home with no relief. Neuro exam is normal. She has full ROM of neck, arm and hips. No acute deformity or bruising on exam. Neurovascularly intact. No other complaints at this time. When I go to leave the room her only concern at this time is "can I have a pill for the pain". PCP is Rik Walls PA-C. Headache Pain Score (Numeric/FACES): 8 Right Middle Arm Pain Score (Numeric/FACES): 7 Right Chest Pain Score (Numeric/FACES): 7 - Related Data Allergies Allergy/AdvReac Type Severity Reaction Status Date / Time buprenorphine [From Butrans] Allergy Itching Verified 03/26/19 11:47 metoclopramide HCl Allergy Itching Verified 03/26/19 11:47 [From Reglan] NSAIDS (Non-Steroidal Allergy Abdominal Verified 03/26/19 11:47 Anti-Inflamma Pain ketorolac [From Toradol] AdvReac Bleeding Verified 03/26/19 11:47 prochlorperazine AdvReac Vomiting Verified 03/26/19 11:47 [From Compazine] Home Meds: Home Meds ALPRAZolam [Xanax] 0.5 mg PO BID PRN 01/22/19 [History] Levothyroxine [Synthroid] 100 mcg PO DAILY 03/14/19 [History] Mirtazapine 30 mg PO BEDTIME 03/14/19 [History] Pantoprazole Sodium [Protonix] 40 mg PO DAILY 03/14/19 [History] Prazosin HCl [Prazosin] 5 mg PO DAILY 03/14/19 [History] Vortioxetine Hydrobromide [Trintellix] 15 mg PO DAILY 03/14/19 [History] Iron 1 tab PO DAILY 03/18/19 [History] Ondansetron [Zofran] 4 mg BUCCAL Q6H PRN #10 tab 03/20/19 [Rx] predniSONE [Prednisone] 20 mg PO ASDIRECTED #20 tablet 03/20/19 [Rx] Past Medical History - Past Health History Medical/Surgical History: Denies Medical/Surgical History HEENT History: Reports: Glaucoma, Otitis Media Cardiovascular History: Reports: Hypertension Other Cardiovascular History: tachycardia Respiratory History: Reports: None, Other (See Below) Gastrointestinal History: Reports: Chronic Constipation, Hemorrhoids, Pancreatitis, Other (See Below) Other Gastrointestinal History: chronic pancreatitis, LUQ pain, gastric sleeve procedure, hemorrhoids Genitourinary History: Reports: UTI, Recurrent 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 History: c section x3, tubes tied Musculoskeletal History: Reports: Arthritis, Fracture, Other (See Below) Other Musculoskeletal History: left foot fracture, elbow pain, wrist pain, weakness, falls Neurological History: 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 (See Below) Other Neuro History: pseudotumor, shunt, benign pineal brain tumor, memory loss , seizure disorder, vertigo, brain surgery x 16 Psychiatric History: Reports: Addiction, Anxiety, Depression 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, Hypothyroidism, Obesity /BMI 30+, Vitamin D Deficiency Other Endocrine/Metabolic History: hyperthyroidism, hypothyroidism, hashimotos, secondary adrenal insufficiency Hematologic History: Reports: Anemia, Other (See Below) Other Hematologic History: anti TPO antibody Immunologic History: Reports: None Oncologic (Cancer) History: Reports: None Dermatologic History: Reports: Cellulitis - Infectious Disease History Infectious Disease History: Reports: C-Difficile, MRSA Other Infectious Disease History: in 2006, 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." - Past Surgical History Head Surgeries/Procedures: Reports: Shunt HEENT Surgical History: Reports: Oral Surgery Other HEENT Surgeries/Procedures: [place] teeth removal Cardiovascular Surgical History: Reports: None Respiratory Surgical History: Reports: None GI Surgical History: Reports: Appendectomy, Bariatric Procedure, Cholecystectomy , Colonoscopy, EGD, ERCP Other GI Surgeries/Procedures: EUS Female Surgical History: Reports: Section, Tubal Ligation Other Female Surgeries/Procedures: C-SECTIONS X3 Endocrine Surgical History: Reports: None Neurological Surgical History: 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 (See Below) Other Neurological Surgeries/Procedures: brain tumor removal Musculoskeletal Surgical History: Reports: None Other Oncologic Surgeries/Procedures: Brain tumor removal Dermatological Surgical History: Reports: None Social & Family History - Family History Family Medical History: Noncontributory Cardiac: Reports: Bypass, Hypertension, [place] Respiratory: Reports: Asthma Oncologic: Reports: Colon - Tobacco Use Smoking Status *Q: Never Smoker Second Hand Smoke Exposure: No - Caffeine Use Caffeine Use: Reports: Coffee Other Caffeine Use: 1 cup daily - Recreational Drug Use Recreational Drug Use: No - Living Situation & Occupation Living situation: Reports: , with Spouse Occupation: Unemployed Review of Systems - Review of Systems Review Of Systems: ROS reveals no pertinent complaints other than HPI. ED EXAM, GENERAL - Physical Exam Exam: See Below Exam Limited By: No Limitations General Appearance: Alert, WD/WN, No Apparent Distress Eye Exam: Bilateral Eye: EOMI, Normal Inspection, PERRL, Other (pupils dilated about 7mm) Ears: Normal External Exam, Hearing Grossly Normal Nose: Normal Inspection, Normal Mucosa, No Blood Head: Atraumatic, Normocephalic Neck: Normal Inspection, Supple, Full Range of Motion, Tender Lateral, Tender Midline Peripheral Pulses: 3+: Radial (L), Radial (R) Back Exam: Normal Inspection, Full Range of Motion. No: Paraspinal Tenderness, Vertebral Tenderness Extremities: Normal Inspection, Normal Range of Motion, Normal Capillary Refill , Arm Pain (R elbow pain s/p fall; full active and passive ROM but is hesistant to move d/t pain) Neurological: Alert, Oriented, CN II-XII Intact, Normal Cognition, Normal Gait, Normal Reflexes, No Motor/Sensory Deficits Skin Exam: Warm, Dry, Intact, Normal Color, No Rash. No: Ecchymosis, Erythema, Increased Warmth, Wound/Incision Course - Vital Signs Last Recorded V/S: Last Vital Signs Temp 98.1 F 03/26/19 11:50 Pulse 96 03/26/19 11:50 Resp 13 03/26/19 11:50 BP 144/101 H 03/26/19 11:50 Pulse Ox 96 03/26/19 11:50 - Orders/Labs/Meds Orders: Active Orders 24 hr Category Date Time Status Cervical Spine 2V or 3V [CR] Stat Exams 03/26/19 12:18 Stop Req Elbow 2V Rt [CR] Stat Exams 03/26/19 12:18 Taken Labs: Laboratory Tests 03/26/19 03/26/19 Range/Units 12:40 12:40 Urine Color Yellow (Yellow) Urine Appearance Clear (Clear) Urine pH 7.0 (5.0-8.0) Ur Specific [place] 1.020 (1.005-1.030) Urine Protein Negative (Negative) Urine Glucose (UA) Negative (Negative) Urine Ketones Negative (Negative) Urine Occult Blood Trace-lysed H (Negative) Urine Nitrite Negative (Negative) Urine Bilirubin Negative (Negative) Urine Urobilinogen 0.2 (0.2-1.0) Ur Leukocyte Esterase Negative (Negative) Urine RBC 0-5 (0-5) /hpf Urine WBC 0-5 (0-5) /hpf Ur Epithelial Cells 0-5 (0-5) /hpf Urine Bacteria Rare (FEW) /hpf Urine Mucus Not seen (FEW) /hpf Urine Opiates Screen Negative (NYLYGK=702) Ur Buprenorphine Scrn Negative (CUTOFF=10) Ur Oxycodone Screen Negative (MWP8WB=087) Urine Methadone Screen Negative (TQJIDX=534) Ur Propoxyphene Screen Negative (XJFJIL=804) Ur Barbiturates Screen Negative (ANPIZY=196) Ur Tricyclics Screen Negative (LURXBR=423) Ur Phencyclidine Scrn Negative (CUTOFF=25) Ur Amphetamine Screen Negative (BLOBGY=188) U Methamphetamines Scrn Negative (RYVWKK=853) U Benzodiazepines Scrn Negative (HCWFGL=288) U Cocaine Metab Screen Negative (LZTIEJ=640) U Marijuana (THC) Screen Negative (CUTOFF=50) Meds: Medications Discontinued Medications Generic Name Dose Route Start Last Admin Trade Name Freq PRN Reason Stop Dose Admin Diphenhydramine HCl 25 mg 03/26/19 12:42 03/26/19 12:47 Benadryl PO 03/26/19 12:43 25 mg ONETIME ONE Administration Ketorolac Tromethamine 30 mg 03/26/19 12:19 03/26/19 12:36 Toradol IM 03/26/19 12:20 30 mg ONETIME ONE Administration - Re-Assessments/Exams Free Text/Narrative Re-Assessment/Exam: 03/26/19 12:25 Ordered Xray of R elbow. Offered Xray of the R hip as she has some pain there, but she doesn't want as she says "I don't think I broke it". Offered CT of the cervical spine to r/o fracture, but she states "I don't think I have a fracture" and does not want that done. Will also order UA d/t her dizziness and a Urine drug screen. She is asking for "a pill for pain". I will give her Toradol. She would also like Benadryl. 03/26/19 13:[address] Sharp and myself- nothing acute appreciated. Drug screen negative. UA negative for UTI. At this time she is stable enough to go home. Departure - Departure Time of Disposition: 13:19 Disposition: Home, Self-Care 01 Condition: Good Clinical Impression: Elbow pain, right, Neck pain, Fall (on) (from) other stairs and steps, initial encounter - Discharge Information *PRESCRIPTION DRUG MONITORING PROGRAM REVIEWED*: Yes *COPY OF PRESCRIPTION DRUG MONITORING REPORT IN PATIENT ALE: Yes Instructions: Fall Prevention in the Home, Adult, [id number], Cryotherapy Referrals: Rik Walls PA-C [Primary Care Provider] - Forms: ED Department Discharge Additional Instructions: You were seen in the ED today for neck, elbow and hip pain after falling down some stairs at home. You did not feel your head, neck, or hip were bad enough for imaging, but we did get an Xray of your right elbow which was normal. At this time, you likely have a soft-tissue injury that can be managed with over the counter anti-inflammatory medications such as ibuprofen and ice. Please return to ED if new or worsening symptoms. - My Orders Last 24 Hours: My Active Orders 03/26/19 12:18 Cervical Spine 2V or 3V [CR] Stat Elbow 2V Rt [CR] Stat - Assessment/Plan Last 24 Hours: My Active Orders 03/26/19 12:18 Cervical Spine 2V or 3V [CR] Stat Elbow 2V Rt [CR] Stat
[2019-03-26 13:38] VITALS: BP 145/95
--- NOTE | 2019-03-28 06:35 | CR ---
Right elbow: Two views of the right elbow were obtained. Comparison: Prior right elbow exam of 02/02/19. Joint spaces are preserved. No joint effusion is seen. No discrete fracture or other abnormality is appreciated. Impression: 1. No abnormality is appreciated on two-view right elbow exam. Diagnostic code #1
== END 2019-03-26 13:42 | disposition home or self-care (01) ==
LOC: JD.ED 11:40
DX: M25.521 Pain in right elbow (principal); M54.2 Cervicalgia; M25.551 Pain in right hip; R51 Headache; M79.601 Pain in right arm; E03.9 Hypothyroidism, unspecified; E66.9 Obesity, unspecified; I10 Essential (primary) hypertension; F41.9 Anxiety disorder, unspecified; F32.9 Major depressive disorder, single episode, unspecified; Z90.49 Acquired absence of other specified parts of digestive tract; Z98.84 Bariatric surgery status; Z98.51 Tubal ligation status; Z79.899 Other long term (current) drug therapy; W10.8XXA Fall (on) (from) other stairs and steps, initial encounter; Z88.8 Allergy status to other drugs, medicaments and biological substances; Y92.009 Unspecified place in unspecified non-institutional (private) residence as the place of occurrence of the external cause
CPT/HCPCS: 73070; 80306; 81001; 96372; 99284; A9270; J1885; 99283

== ENCOUNTER 2019-03-29 09:18 | Emergency (ER) | payer BC, MEDICARE ==
[2019-03-29 09:50] VITALS: BP 162/141
[2019-03-29] MEDS ORDERED: HYDROmorphone 1 MG/ML Syringe IVPUSH ONE (09:55)
[2019-03-29] MEDS ORDERED: Promethazine 25 MG/ML SDV IM ONE (09:56)
[2019-03-29] MEDS ORDERED: diphenhydrAMINE 50 MG/ML SDV IM ONE (09:56)
[2019-03-29] MEDS ORDERED: Hydrocortisone Sodium Succinate 100 MG/2 ML SDV IM ONE (09:57)
[2019-03-29] MEDS ORDERED: HYDROmorphone 1 MG/ML Syringe IM STA (10:03)
--- NOTE | 2019-03-29 10:03 | EDM.PDOC ---
ED HPI GENERAL MEDICAL PROBLEM - General Chief Complaint: Abdominal Pain Stated Complaint: ABDOMINAL PAIN Time Seen by Provider: 03/29/19 09:58 Source of Information: Reports: Patient History Limitations: Reports: No Limitations - History of Present Illness INITIAL COMMENTS - FREE TEXT/NARRATIVE: 43-year-old female presents to the ED once again with severe left upper fozia- abdominal pain rating through to her left back characteristic of her recurrent relapsing pancreatitis. I had seen her last week twice and she did settle down for about 5-6 days. He states pain started coming back yesterday and she's been vomiting since 2:00 this morning. She has not been able to keep down her cortisol tablet for [place] disease disease for the last 2 days. She states the diarrhea is 12-14 times per day. Has steatorrhea. Usually uses and creatinine again enzymes supplements with meals and snacks. Lab work done last time revealed a upper limit of normal lipase and labs will not be repeated today. Patient seems to be in significant amount of pain today. She is rocking back and forth on the bedside. She indicates that they have an appointment to see the immigration case worker in [place] within the next month and chronic sprain pain specialist in [place] in the next 2 weeks. Onset: Sudden Onset Date: 03/28/19 Onset Time: 12:00 (Started with left upper quadrant abdominal pain and progressed to) Duration: Hour(s): ( intractable nausea and vomiting since 2:00 this morning.), Constant, Getting Worse Location: Reports: Abdomen, Radiates to (Left upper quadrant and then rating to to the left back inferior to the shoulder blade.) Quality: Reports: Ache ( Left back inferior to the shoulder blade), Other Severity: Severe (Deep aching pain.) Improves with: Reports: None ( Cannot attend) Worsens with: 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 Context: 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 (Patient has a history of chronic relapsing pancreatitis.). Denies: Activity, Exercise (Unit drinking makes it worse.), Lifting, Sick Contact, Trauma Associated Symptoms: Reports: Loss of Appetite, Malaise, Nausea/Vomiting, Shortness of Breath, Weakness. Denies: Confusion, Chest Pain, Cough, cough w sputum, Diaphoresis, Fever/Chills, Headaches, Rash, Seizure (Intractable nausea and vomiting of bilious material no blood.), Syncope (Subjective shortness of breath. 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 Zofran sublingually has not helped.) Abdomen Pain Score (Numeric/FACES): 8 - Related Data Allergies Allergy/AdvReac Type Severity Reaction Status Date / Time buprenorphine [From Butrans] Allergy Itching Verified 03/29/19 09:50 metoclopramide HCl Allergy Itching Verified 03/29/19 09:50 [From Reglan] NSAIDS (Non-Steroidal Allergy Abdominal Verified 03/29/19 09:50 Anti-Inflamma Pain ketorolac [From Toradol] AdvReac Bleeding Verified 03/29/19 09:50 prochlorperazine AdvReac Vomiting Verified 03/29/19 09:50 [From Compazine] Home Meds: Home Meds ALPRAZolam [Xanax] 0.5 mg PO BID PRN 01/22/19 [History] Levothyroxine [Synthroid] 100 mcg PO DAILY 03/14/19 [History] Mirtazapine 30 mg PO BEDTIME 03/14/19 [History] Pantoprazole Sodium [Protonix] 40 mg PO DAILY 03/14/19 [History] Prazosin HCl [Prazosin] 5 mg PO DAILY 03/14/19 [History] Vortioxetine Hydrobromide [Trintellix] 15 mg PO DAILY 03/14/19 [History] Iron 1 tab PO DAILY 03/18/19 [History] Ondansetron [Zofran] 4 mg BUCCAL Q6H PRN #10 tab 03/20/19 [Rx] predniSONE [Prednisone] 20 mg PO ASDIRECTED #20 tablet 03/20/19 [Rx] Past Medical History - Past Health History Medical/Surgical History: Denies Medical/Surgical History HEENT History: Reports: Glaucoma, Otitis Media Cardiovascular History: Reports: Hypertension Other Cardiovascular History: tachycardia Respiratory History: Reports: None, Other (See Below) Gastrointestinal History: Reports: Chronic Constipation, Hemorrhoids, Pancreatitis, Other (See Below) Other Gastrointestinal History: chronic pancreatitis, LUQ pain, gastric sleeve procedure, hemorrhoids Genitourinary History: Reports: UTI, Recurrent 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, tubes tied Musculoskeletal History: Reports: Arthritis, Fracture, Other (See Below) Other Musculoskeletal History: left foot fracture, elbow pain, wrist pain, weakness, falls Neurological History: 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 (See Below) Other Neuro History: pseudotumor, shunt, benign pineal brain tumor, memory loss , seizure disorder, vertigo, brain surgery x 16 Psychiatric History: Reports: Addiction, Anxiety, Depression Endocrine/Metabolic History: Reports: [place]'s Disease, Hypothyroidism, Obesity /BMI 30+, Vitamin D Deficiency Other Endocrine/Metabolic History: hyperthyroidism, hypothyroidism, hashimotos, secondary adrenal insufficiency Hematologic History: Reports: Anemia, Other (See Below) Other Hematologic History: anti TPO antibody Immunologic History: Reports: None Oncologic (Cancer) History: Reports: None Dermatologic History: Reports: Cellulitis - Infectious Disease History Infectious Disease History: Reports: C-Difficile, MRSA Other Infectious Disease History: in 2006, 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." - Past Surgical History Head Surgeries/Procedures: Reports: Shunt HEENT Surgical History: Reports: Oral Surgery Other HEENT Surgeries/Procedures: [place] teeth removal Cardiovascular Surgical History: Reports: None Respiratory Surgical History: Reports: None GI Surgical History: Reports: Appendectomy, Bariatric Procedure, Cholecystectomy , Colonoscopy, EGD, ERCP Other GI Surgeries/Procedures: EUS Female Surgical History: Reports: Section, Tubal Ligation Other Female Surgeries/Procedures: C-SECTIONS X3 Endocrine Surgical History: Reports: None Neurological Surgical History: 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 (See Below) Other Neurological Surgeries/Procedures: brain tumor removal Musculoskeletal Surgical History: Reports: None Other Oncologic Surgeries/Procedures: Brain tumor removal Dermatological Surgical History: Reports: None Social & Family History - Family History Family Medical History: Noncontributory Cardiac: Reports: Bypass, Hypertension, [place] Respiratory: Reports: Asthma Oncologic: Reports: Colon - Tobacco Use Smoking Status *Q: Never Smoker Second Hand Smoke Exposure: No - Caffeine Use Caffeine Use: Reports: None Other Caffeine Use: 1 cup daily - Recreational Drug Use Recreational Drug Use: No - Living Situation & Occupation Living situation: Reports: , with Spouse Occupation: Unemployed ED ROS GENERAL - Review of Systems Review Of Systems: See Below Constitutional: Reports: Malaise, Weakness, Fatigue, Decreased Appetite. Denies : Fever, Chills HEENT: Reports: No Symptoms Respiratory: Reports: Shortness of Breath. Denies: Wheezing (Subjective shortness of breath. Deep breathing makes the pain worse in the left upper quadrant of the abdomen.), Pleuritic Chest Pain, Cough, Sputum Cardiovascular: Reports: Lightheadedness. Denies: Chest Pain, Blood Pressure Problem, Claudication, Dyspnea on Exertion, Edema (At times.), Orthopnea Endocrine: Reports: Fatigue GI/Abdominal: Reports: Abdominal Pain, Diarrhea (See history of present illness diarrhea flares up when she gets the left upper quadrant abdominal pain. She estimated she's got about 14 times since yesterday noon. It is loose watery slightly yellow in color. No blood. She states a pulse on top of the total bone water steatorrhea.), Decreased Appetite, Distension (Feels mildly bloated.), Nausea, Vomiting (Intractable nausea and vomiting.). Denies: Constipation, Flatus : 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 Musculoskeletal: Reports: Back Pain (Left flank area.) Skin: Reports: No Symptoms Neurological: Reports: Dizziness, Headache Psychiatric: Reports: No Symptoms Hematologic/Lymphatic: Reports: No Symptoms Immunologic: Reports: No Symptoms ED EXAM, GI/ABD - Physical Exam Exam: See Below (Occasional headaches.) Exam Limited By: No Limitations General Appearance: Alert, Moderate Distress, Other (Appears to be in a significant amount of pain today. Heaving and retching upon my examination.) Eyes: Bilateral: Normal Appearance Throat/Mouth: Other Head: Atraumatic, Normocephalic (Tongue is mildly dry and coated.) Neck: Normal Inspection, Supple, Non-Tender, Full Range of Motion. No: Lymphadenopathy (L), Lymphadenopathy (R) Respiratory/Chest: No Respiratory Distress, Lungs Clear, Normal Breath Sounds, No Accessory Muscle Use, Chest Non-Tender Cardiovascular: Normal Peripheral Pulses, Regular Rate, Rhythm, No Edema, No Gallop, No Murmur, No Rub GI/Abdominal Exam: No Organomegaly (Bowel sounds are decreased from the norm and are fairly quiet sent in all 4 quadrants.), Guarding (Very tender to palpation left upper quadrant of the abdomen with mild guarding.), Tender, Abnormal Bowel Sounds. No: Rigid Back Exam: Normal Inspection, Full Range of Motion. No: CVA Tenderness (L), CVA Tenderness (R) Extremities: Normal Inspection, Normal Range of Motion, Non-Tender, Normal Capillary Refill Neurological: Alert, Oriented, CN II-XII Intact, Normal Cognition Psychiatric: Other Skin Exam: Warm (In good deal of pain at the time of my exam with vomiting), Dry , Intact, Normal Color, No Rash Course - Vital Signs Last Recorded V/S: Last Vital Signs Temp 36.5 C 03/29/19 09:48 Pulse 87 03/29/19 09:48 Resp 16 03/29/19 09:48 BP 162/141 H 03/29/19 09:48 Pulse Ox 98 03/29/19 09:48 - Orders/Labs/Meds Meds: Medications Discontinued Medications Generic Name Dose Route Start Last Admin Trade Name Dominic PRN Reason Stop Dose Admin Diphenhydramine HCl 50 mg 03/29/19 09:56 03/29/19 10:13 Benadryl IM 03/29/19 09:57 50 mg ONETIME ONE Administration Hydrocortisone Sodium Succinate 100 mg 03/29/19 09:57 03/29/19 10:14 Solu-Cortef IM 03/29/19 09:58 100 mg ONETIME ONE Administration Hydromorphone HCl 2 mg 03/29/19 10:03 03/29/19 10:13 Dilaudid IM 03/29/19 10:04 2 mg ONETIME STA Administration Promethazine HCl 37.5 mg 03/29/19 09:56 03/29/19 10:14 Phenergan IM 03/29/19 09:57 37.5 mg ONETIME ONE Administration - Radiology Interpretation Free Text/Narrative:: 43-year-old female presents once again to the ED with severe left upper quadrant abdominal pain radiating to her back characteristic of her recurrent chronic relapsing pancreatitis. Patient states the pain came on about noon yesterday but vomited again started about 2:00 this morning. She estimated she' s vomited about 9 times of bilious material without blood. She's had about 14 loose stools since onset of pain. She states this is characteristic of pancreatic attack. She has not been able to keep down her cortisol tablets for her [place]'s disease 2 days. Examination reveals marked tenderness left upper quadrant of the head with mild guarding characteristic of usual findings. Labs were done last time and were not all that useful. They will not be repeated today. Patient will be given Phenergan 37.5 mg IM with Benadryl 50 mg IM. Dilaudid 2 mg IM and Solu-Cortef 100 mg IM. Her is here to drive her back home today. Departure - Departure Time of Disposition: 11:00 Disposition: Home, Self-Care 01 Condition: Fair Clinical Impression: Adrenal insufficiency ([place]'s disease), Chronic relapsing pancreatitis Intractable nausea and vomiting Qualifiers: Vomiting type: unspecified Qualified Code(s): R11.2 - Nausea with vomiting, unspecified - Discharge Information *PRESCRIPTION DRUG MONITORING PROGRAM REVIEWED*: No *COPY OF PRESCRIPTION DRUG MONITORING REPORT IN PATIENT ALE: No Instructions: [place] Disease, Chronic Pancreatitis Referrals: Rik Walls PA-C [Primary Care Provider] - Forms: ED Department Discharge Additional Instructions: Evaluation in the emergency department today in regards to recurrence of acute pancreatitis. By history of chronic relapsing pancreatitis. Associated recent diagnosis of cortisol insufficiency or [place]'s disease. Pain is confined to the left upper quadrant and radiates to tear left mid back. Treated with intramuscular Dilaudid 2 mg with Benadryl 50 mg and Phenergan 37.5 mg IV for pain and nausea relief. Because you have not been able to keep down your cortisol tablet you are given Solu-Cortef IM 100 mg in the ED as well. Continue clear fluids and resume medications as tolerated.
== END 2019-03-29 11:02 | disposition home or self-care (01) ==
LOC: JD.ED 09:18
DX: K86.1 Other chronic pancreatitis (principal); E27.1 Primary adrenocortical insufficiency; I10 Essential (primary) hypertension; Z88.8 Allergy status to other drugs, medicaments and biological substances; Z79.899 Other long term (current) drug therapy
CPT/HCPCS: 96372; 99283; J1170; J1200; J1720; J2550; 99284

== ENCOUNTER 2019-04-05 16:30 | Emergency (ER) | payer BC, MEDICARE ==
[2019-04-05 16:51] VITALS: BP 153/103
[2019-04-05] MEDS ORDERED: Promethazine 25 MG/ML SDV IM ONE (17:08)
[2019-04-05] MEDS ORDERED: HYDROmorphone 0.5 MG/0.5 ML Syringe IM ONE (17:08)
--- NOTE | 2019-04-05 18:30 | EDM.PDOC ---
ED HPI GENERAL MEDICAL PROBLEM - General Chief Complaint: Abdominal Pain Stated Complaint: PANCREATITIS Time Seen by Provider: 04/05/19 16:55 Source of Information: Reports: Patient History Limitations: Reports: No Limitations - History of Present Illness INITIAL COMMENTS - FREE TEXT/NARRATIVE: 43 y/o female presents to the ED with cc left upper quadrant pain. She states she is her because she "has pancreatitis and needs a pain shot and some Phenergan." she also states she has [place] disease and was not able to take her steroids and wants a steroid shot. She denies fever or chills. She reports she ate a cheese sandwich earlier today then started vomiting. She was just here a week ago and had labs and work up for the same symptoms. She reports she "had a EDG last week that aggravated her pancreatitis." She states she is going to a specialist at [facility] in April. She is accompanied by her son. Onset: Today Onset Date: 04/05/19 Onset Time: 14:00 Duration: Getting Worse, Intermittent Location: Reports: Abdomen Quality: Reports: Ache Severity: Mild Improves with: Reports: None Worsens with: Reports: None Associated Symptoms: 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 (vomiting x 5). Denies: Cough, Fever/Chills , Loss of Appetite, Nausea/Vomiting, Weakness Abdomen Pain Score (Numeric/FACES): 8 - Related Data Allergies Allergy/AdvReac Type Severity Reaction Status Date / Time buprenorphine [From Butrans] Allergy Itching Verified 04/05/19 16:45 metoclopramide HCl Allergy Itching Verified 04/05/19 16:45 [From Reglan] NSAIDS (Non-Steroidal Allergy Abdominal Verified 04/05/19 16:45 Anti-Inflamma Pain ketorolac [From Toradol] AdvReac Bleeding Verified 04/05/19 16:45 prochlorperazine AdvReac Vomiting Verified 04/05/19 16:45 [From Compazine] Home Meds: Home Meds ALPRAZolam [Xanax] 0.5 mg PO BID PRN 01/22/19 [History] Levothyroxine [Synthroid] 100 mcg PO DAILY 03/14/19 [History] Mirtazapine 30 mg PO BEDTIME 03/14/19 [History] Pantoprazole Sodium [Protonix] 40 mg PO DAILY 03/14/19 [History] Prazosin HCl [Prazosin] 5 mg PO DAILY 03/14/19 [History] Vortioxetine Hydrobromide [Trintellix] 15 mg PO DAILY 03/14/19 [History] Iron 1 tab PO DAILY 03/18/19 [History] Ondansetron [Zofran] 4 mg BUCCAL Q6H PRN #10 tab 03/20/19 [Rx] Past Medical History - Past Health History Medical/Surgical History: Denies Medical/Surgical History HEENT History: Reports: Glaucoma, Otitis Media Cardiovascular History: Reports: Hypertension Other Cardiovascular History: tachycardia Respiratory History: Reports: None, Other (See Below) Gastrointestinal History: Reports: Chronic Constipation, Hemorrhoids, Pancreatitis, Other (See Below) Other Gastrointestinal History: chronic pancreatitis, LUQ pain, gastric sleeve procedure, hemorrhoids Genitourinary History: Reports: UTI, Recurrent 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 EXPANDER History: c section x3, tubes tied Musculoskeletal History: Reports: Arthritis, Fracture, Other (See Below) Other Musculoskeletal History: left foot fracture, elbow pain, wrist pain, weakness, falls Neurological History: 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 (See Below) Other Neuro History: pseudotumor, shunt, benign pineal brain tumor, memory loss , seizure disorder, vertigo, brain surgery x 16 Psychiatric History: Reports: Addiction, Anxiety, Depression 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, Hypothyroidism, Obesity /BMI 30+, Vitamin D Deficiency Other Endocrine/Metabolic History: hyperthyroidism, hypothyroidism, hashimotos, secondary adrenal insufficiency Hematologic History: Reports: Anemia, Other (See Below) Other Hematologic History: anti TPO antibody Immunologic History: Reports: None Oncologic (Cancer) History: Reports: None Dermatologic History: Reports: Cellulitis - Infectious Disease History Infectious Disease History: Reports: C-Difficile, MRSA Other Infectious Disease History: in 2006, 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." - Past Surgical History Head Surgeries/Procedures: Reports: Shunt HEENT Surgical History: Reports: Oral Surgery Other HEENT Surgeries/Procedures: [place] teeth removal Cardiovascular Surgical History: Reports: None Respiratory Surgical History: Reports: None GI Surgical History: Reports: Appendectomy, Bariatric Procedure, Cholecystectomy , Colonoscopy, EGD, ERCP Other GI Surgeries/Procedures: EUS Female Surgical History: Reports: Section, Tubal Ligation Other Female Surgeries/Procedures: C-SECTIONS X3 Endocrine Surgical History: Reports: None Neurological Surgical History: 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 (See Below) Other Neurological Surgeries/Procedures: brain tumor removal Musculoskeletal Surgical History: Reports: None Other Oncologic Surgeries/Procedures: Brain tumor removal Dermatological Surgical History: Reports: None Social & Family History - Family History Family Medical History: Noncontributory Cardiac: Reports: Bypass, Hypertension, [place] Respiratory: Reports: Asthma Oncologic: Reports: Colon - Tobacco Use Smoking Status *Q: Never Smoker Second Hand Smoke Exposure: No - Caffeine Use Caffeine Use: Reports: None Other Caffeine Use: 1 cup daily - Recreational Drug Use Recreational Drug Use: No - Living Situation & Occupation Living situation: Reports: , with Spouse Occupation: Unemployed ED ROS GENERAL - Review of Systems Review Of Systems: See Below Constitutional: Denies: Fever, Chills HEENT: Reports: No Symptoms Respiratory: Denies: Shortness of Breath, Hemoptysis Cardiovascular: Denies: Chest Pain Endocrine: Denies: Fatigue GI/Abdominal: Reports: Abdominal Pain, Nausea, Vomiting. Denies: Black Stool, Bloody Stool, Diarrhea, Difficulty Swallowing, Distension : Reports: No Symptoms Musculoskeletal: Reports: No Symptoms Skin: Reports: No Symptoms Neurological: Reports: No Symptoms Psychiatric: Reports: No Symptoms Hematologic/Lymphatic: Reports: No Symptoms Immunologic: Reports: No Symptoms ED EXAM, GI/ABD - Physical Exam Exam: See Below Exam Limited By: No Limitations General Appearance: Alert, WD/WN, No Apparent Distress Respiratory/Chest: No Respiratory Distress, Lungs Clear, Normal Breath Sounds, No Accessory Muscle Use, Chest Non-Tender Cardiovascular: Normal Peripheral Pulses, Regular Rate, Rhythm, No Edema, No Gallop, No JVD, No Murmur, No Rub GI/Abdominal Exam: Normal Bowel Sounds, Soft, No Organomegaly, No Distention, No Abnormal Bruit, No Mass, Pelvis Stable, Tender (luq) Back Exam: Normal Inspection, Full Range of Motion Extremities: Normal Inspection, Normal Range of Motion, Non-Tender, No Pedal Edema, Normal Capillary Refill Neurological: Alert, Oriented, CN II-XII Intact, Normal Cognition, Normal Gait Psychiatric: Normal Affect, Normal Mood Skin Exam: Warm, Dry, Intact, Normal Color, No Rash Lymphatic: No Adenopathy Course - Vital Signs Last Recorded V/S: Last Vital Signs Temp 97.6 F 04/05/19 16:47 Pulse 82 04/05/19 16:47 Resp 20 04/05/19 16:47 BP 153/103 H 04/05/19 16:47 Pulse Ox 98 04/05/19 16:47 - Orders/Labs/Meds Meds: Medications Discontinued Medications Generic Name Dose Route Start Last Admin Trade Name Dominic PRN Reason Stop Dose Admin Hydromorphone HCl 0.5 mg 04/05/19 17:08 04/05/19 17:22 Dilaudid IM 04/05/19 17:09 0.5 mg ONETIME ONE Administration Promethazine HCl 25 mg 04/05/19 17:08 04/05/19 17:23 Phenergan IM 04/05/19 17:09 25 mg ONETIME ONE Administration - Re-Assessments/Exams Free Text/Narrative Re-Assessment/Exam: 04/05/19 18:31 43 y/o female presented to ER with cc LUQ pain from her pancreatitis. She received Dilaudid and Phenergan and her condition improved. I will discharge home with instructions to follow up with her gastroenterologists as scheduled in April. Instructed to return to the ER for any new or acute worsening symptoms. Patient verbalized understanding and is comfortable with plan for discharge. She is stable at time of discharge. Departure - Departure Time of Disposition: 18:33 Disposition: Home, Self-Care 01 Condition: Good Clinical Impression: Chronic relapsing pancreatitis - Discharge Information Instructions: Chronic Pancreatitis Referrals: Rik Walls PA-C [Primary Care Provider] - Additional Instructions: You have been diagnosis with pancreatitis. I recommend you have a clear liquid diet and advance as tolerate. 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 Return to the ER for any new or acute worsening symptoms.
== END 2019-04-05 18:40 | disposition home or self-care (01) ==
LOC: JD.ED 16:30
DX: K86.1 Other chronic pancreatitis (principal); I10 Essential (primary) hypertension; F41.9 Anxiety disorder, unspecified; F32.9 Major depressive disorder, single episode, unspecified; Z79.899 Other long term (current) drug therapy; Z88.8 Allergy status to other drugs, medicaments and biological substances
CPT/HCPCS: 96372; 99283; J1170; J2550; 99284

== ENCOUNTER 2019-04-14 09:27 | Emergency (ER) | payer MEDICARE, BC ==
[2019-04-14 09:36] VITALS: BP 160/92
--- NOTE | 2019-04-14 09:52 | EDM.PDOC ---
ED HPI GENERAL MEDICAL PROBLEM - General Chief Complaint: Abdominal Pain Stated Complaint: PANCREATITIS Time Seen by Provider: 04/14/19 09:52 Source of Information: Reports: Patient, RN Notes Reviewed - History of Present Illness INITIAL COMMENTS - FREE TEXT/NARRATIVE: 43-year-old female comes in with left upper abdominal pain. This became bad early this morning and continues at time of exam. The pain does radiate to her back. She's had severe nausea but no vomiting. She has had difficulty with pancreatitis in the past. There've been multiple visits for the same discomfort here to our ED were labs have usually been normal. She has had no recent fever or chills. She did have a "EGD done just a week or 2 ago at [facility]". She has been having loose stools but not much different from normal. Left Upper Abdomen Pain Score (Numeric/FACES): 8 - Related Data Allergies Allergy/AdvReac Type Severity Reaction Status Date / Time buprenorphine [From Butrans] Allergy Itching Verified 04/14/19 09:39 metoclopramide HCl Allergy Itching Verified 04/05/19 16:45 [From Reglan] NSAIDS (Non-Steroidal Allergy Abdominal Verified 04/14/19 09:39 Anti-Inflamma Pain ketorolac [From Toradol] AdvReac Bleeding Verified 04/14/19 09:39 prochlorperazine AdvReac Vomiting Verified 04/14/19 09:39 [From Compazine] Home Meds: Home Meds ALPRAZolam [Xanax] 0.5 mg PO BID PRN 01/22/19 [History] Levothyroxine [Synthroid] 100 mcg PO DAILY 03/14/19 [History] Mirtazapine 30 mg PO BEDTIME 03/14/19 [History] Pantoprazole Sodium [Protonix] 40 mg PO DAILY 03/14/19 [History] Prazosin HCl [Prazosin] 5 mg PO DAILY 03/14/19 [History] Vortioxetine Hydrobromide [Trintellix] 15 mg PO DAILY 03/14/19 [History] Iron 1 tab PO DAILY 03/18/19 [History] Ondansetron [Zofran] 4 mg BUCCAL Q6H PRN #10 tab 03/20/19 [Rx] Past Medical History - Past Health History Medical/Surgical History: Denies Medical/Surgical History HEENT History: Reports: Glaucoma, Otitis Media Cardiovascular History: Reports: Hypertension Other Cardiovascular History: tachycardia Respiratory History: Reports: None, Other (See Below) Gastrointestinal History: Reports: Chronic Constipation, Hemorrhoids, Pancreatitis, Other (See Below) Other Gastrointestinal History: chronic pancreatitis, LUQ pain, gastric sleeve procedure, hemorrhoids Genitourinary History: Reports: UTI, Recurrent 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 TEXTURER History: c section x3, tubes tied Musculoskeletal History: Reports: Arthritis, Fracture, Other (See Below) Other Musculoskeletal History: left foot fracture, elbow pain, wrist pain, weakness, falls Neurological History: 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 (See Below) Other Neuro History: pseudotumor, shunt, benign pineal brain tumor, memory loss , seizure disorder, vertigo, brain surgery x 16 Psychiatric History: Reports: Addiction, Anxiety, Depression 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, Hypothyroidism, Obesity /BMI 30+, Vitamin D Deficiency Other Endocrine/Metabolic History: hyperthyroidism, hypothyroidism, hashimotos, secondary adrenal insufficiency Hematologic History: Reports: Anemia, Other (See Below) Other Hematologic History: anti TPO antibody Immunologic History: Reports: None Oncologic (Cancer) History: Reports: None Dermatologic History: Reports: Cellulitis - Infectious Disease History Infectious Disease History: Reports: C-Difficile, MRSA Other Infectious Disease History: in 2006, 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." - Past Surgical History Head Surgeries/Procedures: Reports: Shunt HEENT Surgical History: Reports: Oral Surgery Other HEENT Surgeries/Procedures: [place] teeth removal Cardiovascular Surgical History: Reports: None Respiratory Surgical History: Reports: None GI Surgical History: Reports: Appendectomy, Bariatric Procedure, Cholecystectomy , Colonoscopy, EGD, ERCP Other GI Surgeries/Procedures: EUS Female Surgical History: Reports: Section, Tubal Ligation Other Female Surgeries/Procedures: C-SECTIONS X3 Endocrine Surgical History: Reports: None Neurological Surgical History: 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 (See Below) Other Neurological Surgeries/Procedures: brain tumor removal Musculoskeletal Surgical History: Reports: None Other Oncologic Surgeries/Procedures: Brain tumor removal Dermatological Surgical History: Reports: None Social & Family History - Family History Family Medical History: Noncontributory Cardiac: Reports: Bypass, Hypertension, [place] Respiratory: Reports: Asthma Oncologic: Reports: Colon - Tobacco Use Smoking Status *Q: Never Smoker Second Hand Smoke Exposure: No - Caffeine Use Caffeine Use: Reports: Coffee Other Caffeine Use: 1 cup daily - Recreational Drug Use Recreational Drug Use: No - Living Situation & Occupation Living situation: Reports: , with Spouse Occupation: Unemployed ED ROS GENERAL - Review of Systems Review Of Systems: See Below Constitutional: Denies: Fever, Chills HEENT: Denies: Throat Pain Respiratory: Denies: Shortness of Breath Cardiovascular: Denies: Chest Pain GI/Abdominal: Reports: Abdominal Pain, Decreased Appetite, Nausea. Denies: Vomiting Musculoskeletal: Reports: Back Pain Skin: Reports: No Symptoms Neurological: Reports: No Symptoms ED EXAM, GI/ABD - Physical Exam Exam: See Below General Appearance: Alert, Moderate Distress Throat/Mouth: Normal Inspection Head: Atraumatic Neck: Supple Respiratory/Chest: No Respiratory Distress, Lungs Clear, Normal Breath Sounds Cardiovascular: Regular Rate, Rhythm GI/Abdominal Exam: Soft, Tender (Mild tenderness upper mid abdomen, moderate tenderness left upper and midabdomen, lower abdomen and right lower quadrant nontender). No: Guarding, Rebound Back Exam: CVA Tenderness (L) (Mild) Neurological: Alert, Oriented, No Motor/Sensory Deficits Skin Exam: Warm, Dry, Normal Color Course - Vital Signs Last Recorded V/S: Last Vital Signs Temp 98.4 F 04/14/19 09:31 Pulse 81 04/14/19 09:31 Resp 16 04/14/19 09:31 BP 160/92 H 04/14/19 09:31 Pulse Ox 99 04/14/19 09:31 - Orders/Labs/Meds Meds: Medications Discontinued Medications Generic Name Dose Route Start Last Admin Trade Name Jean-Pierreq PRN Reason Stop Dose Admin Hydromorphone HCl 1 mg 04/14/19 10:02 04/14/19 10:15 Dilaudid IM 04/14/19 10:03 1 mg ONETIME ONE Administration Promethazine HCl 25 mg 04/14/19 10:04 04/14/19 10:15 Phenergan IM 04/14/19 10:05 25 mg ONETIME ONE Administration Departure - Departure Time of Disposition: 10:37 Disposition: Home, Self-Care 01 Condition: Fair Clinical Impression: Abdominal pain Qualifiers: Abdominal location: left upper quadrant Qualified Code(s): R10.12 - Left upper quadrant pain - Discharge Information Instructions: Clear Liquid Diet, Adult, [id number] Referrals: Rik Walls PA-C [Primary Care Provider] - Forms: ED Department Discharge Additional Instructions: clear liquids and bland diet as tolerated, continue zofran for nausea/ vomiting. follow up [facility] as planned.
[2019-04-14] MEDS ORDERED: HYDROmorphone 1 MG/ML Syringe IM ONE (10:02)
[2019-04-14] MEDS ORDERED: Promethazine 25 MG/ML SDV IM ONE (10:04)
== END 2019-04-14 11:25 | disposition home or self-care (01) ==
LOC: JD.ED 09:27
DX: R10.12 Left upper quadrant pain (principal); I10 Essential (primary) hypertension; F41.9 Anxiety disorder, unspecified; F32.9 Major depressive disorder, single episode, unspecified; E66.9 Obesity, unspecified; E03.9 Hypothyroidism, unspecified; M19.90 Unspecified osteoarthritis, unspecified site; Z90.49 Acquired absence of other specified parts of digestive tract; Z98.84 Bariatric surgery status; Z98.51 Tubal ligation status; Z88.6 Allergy status to analgesic agent; Z88.8 Allergy status to other drugs, medicaments and biological substances
CPT/HCPCS: 96372; 99283; J1170; J2550; 99284

== ENCOUNTER 2019-04-17 12:23 | Emergency (ER) | payer BC, MEDICARE ==
--- NOTE | 2019-04-17 12:33 | EDM.PDOC ---
ED HPI GENERAL MEDICAL PROBLEM - General Chief Complaint: Abdominal Pain Stated Complaint: PANCREATITIS Time Seen by Provider: 04/17/19 12:33 Source of Information: Reports: Patient History Limitations: Reports: No Limitations - History of Present Illness INITIAL COMMENTS - FREE TEXT/NARRATIVE: Patient is a 43-year-old female who presents the ED with a history of chronic pancreatitis and narcotic use complaining of upper abdominal pain. States the discomfort has been there for the past week or so. She was evaluated in the emergency department 04/15/2019 for pain management. No labs were obtained at that time. Patient left after receiving pain medications. She states the pain has persisted. She's been taking Tylenol only for the pain. She's had a few episodes of emesis over the evening. Last episode was at approximately 11:00 today. She states she was able to eat a piece of toast and has been drinking fluids. She has taken all her medications this morning. She is under the care of Dr. Gutierrez with gastroenterology. 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 States she was feverish last night with temp of 101 F. She has taken a bunch of Tylenol this morning and presents to the ED afebrile. In addition she does have some intermittent episodes of blood within her stool. She had EGD and colonoscopy performed this past month with no significant reason to why. She does have a history of acid reflux and is on a PPI. Patient states there is no worsening noted to her acid reflux. In addition there is no change to frequency/amount of blood within her stool. She has approximate 4 episodes of diarrhea and a with only faint amount of blood present. She denies any sore throat, cough, chest pain, nuchal rigidity, vision changes, headache, rash, dysuria, and/or any additional complaints. Abdomen Pain Score (Numeric/FACES): 7 - Related Data Allergies Allergy/AdvReac Type Severity Reaction Status Date / Time buprenorphine [From Butrans] Allergy Itching Verified 04/17/19 12:30 metoclopramide HCl Allergy Itching Verified 04/17/19 12:30 [From Reglan] NSAIDS (Non-Steroidal Allergy Abdominal Verified 04/17/19 12:30 Anti-Inflamma Pain ketorolac [From Toradol] AdvReac Bleeding Verified 04/17/19 12:30 prochlorperazine AdvReac Vomiting Verified 04/17/19 12:30 [From Compazine] Home Meds: Home Meds ALPRAZolam [Xanax] 0.5 mg PO BID PRN 01/22/19 [History] Levothyroxine [Synthroid] 100 mcg PO DAILY 03/14/19 [History] Mirtazapine 30 mg PO BEDTIME 03/14/19 [History] Pantoprazole Sodium [Protonix] 40 mg PO DAILY 03/14/19 [History] Prazosin HCl [Prazosin] 5 mg PO DAILY 03/14/19 [History] Vortioxetine Hydrobromide [Trintellix] 15 mg PO DAILY 03/14/19 [History] Iron 1 tab PO DAILY 03/18/19 [History] Ondansetron [Zofran] 4 mg BUCCAL Q6H PRN #10 tab 03/20/19 [Rx] Past Medical History - Past Health History Medical/Surgical History: Denies Medical/Surgical History HEENT History: Reports: Glaucoma, Otitis Media Cardiovascular History: Reports: Hypertension Other Cardiovascular History: tachycardia Respiratory History: Reports: None, Other (See Below) Gastrointestinal History: Reports: Chronic Constipation, Hemorrhoids, Pancreatitis, Other (See Below) Other Gastrointestinal History: chronic pancreatitis, LUQ pain, gastric sleeve procedure, hemorrhoids Genitourinary History: Reports: UTI, Recurrent 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: 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: c section x3, tubes tied Musculoskeletal History: Reports: Arthritis, Fracture, Other (See Below) Other Musculoskeletal History: left foot fracture, elbow pain, wrist pain, weakness, falls Neurological History: 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 (See Below) Other Neuro History: pseudotumor, shunt, benign pineal brain tumor, memory loss , seizure disorder, vertigo, brain surgery x 16 Psychiatric History: Reports: Addiction, Anxiety, Depression 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, Hypothyroidism, Obesity /BMI 30+, Vitamin D Deficiency Other Endocrine/Metabolic History: hyperthyroidism, hypothyroidism, hashimotos, secondary adrenal insufficiency Hematologic History: Reports: Anemia, Other (See Below) Other Hematologic History: anti TPO antibody Immunologic History: Reports: None Oncologic (Cancer) History: Reports: None Dermatologic History: Reports: Cellulitis - Infectious Disease History Infectious Disease History: Reports: C-Difficile, MRSA Other Infectious Disease History: in 2006, 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." - Past Surgical History Head Surgeries/Procedures: Reports: Shunt HEENT Surgical History: Reports: Oral Surgery Other HEENT Surgeries/Procedures: [place] teeth removal Cardiovascular Surgical History: Reports: None Respiratory Surgical History: Reports: None GI Surgical History: Reports: Appendectomy, Bariatric Procedure, Cholecystectomy , Colonoscopy, EGD, ERCP Other GI Surgeries/Procedures: EUS Female Surgical History: Reports: Section, Tubal Ligation Other Female Surgeries/Procedures: C-SECTIONS X3 Endocrine Surgical History: Reports: None Neurological Surgical History: 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 (See Below) Other Neurological Surgeries/Procedures: brain tumor removal Musculoskeletal Surgical History: Reports: None Other Oncologic Surgeries/Procedures: Brain tumor removal Dermatological Surgical History: Reports: None Social & Family History - Family History Family Medical History: Noncontributory Cardiac: Reports: Bypass, Hypertension, [place] Respiratory: Reports: Asthma Oncologic: Reports: Colon - Caffeine Use Caffeine Use: Reports: Coffee Other Caffeine Use: 1 cup daily - Living Situation & Occupation Living situation: Reports: , with Spouse Occupation: Unemployed ED ROS GENERAL - Review of Systems Review Of Systems: ROS reveals no pertinent complaints other than HPI. ED EXAM, GI/ABD - Physical Exam Exam: See Below Exam Limited By: No Limitations General Appearance: Alert, WD/WN, No Apparent Distress Ears: Normal External Exam, Hearing Grossly Normal Nose: Normal Inspection Throat/Mouth: Normal Voice, No Airway Compromise, Other (Moist oral mucosa) Head: Atraumatic, Normocephalic Neck: Normal Inspection, Supple Respiratory/Chest: No Respiratory Distress, Lungs Clear, Normal Breath Sounds, No Accessory Muscle Use, Chest Non-Tender Cardiovascular: Normal Peripheral Pulses, Regular Rate, Rhythm GI/Abdominal Exam: Normal Bowel Sounds, Soft, No Organomegaly, No Distention, Tender (Epigastric, right upper quadrant, and left upper quadrant. Her gallbladder is removed along with her appendix.) Back Exam: Normal Inspection Extremities: Normal Inspection Neurological: Alert, Oriented, CN II-XII Intact, Normal Cognition, No Motor/ Sensory Deficits Psychiatric: Normal Affect, Normal Mood Skin Exam: Warm, Dry, Intact, Normal Color Course - Vital Signs Last Recorded V/S: Last Vital Signs Temp 98.9 F 04/17/19 12:31 Pulse 80 04/17/19 14:15 Resp 18 04/17/19 14:15 BP 146/102 H 04/17/19 14:15 Pulse Ox 100 04/17/19 14:15 - Orders/Labs/Meds Orders: Active Orders 24 hr Category Date Time Status Abdomen 2V AP Flat Upright [CR] Stat Exams 04/17/19 12:53 Taken Labs: Laboratory Tests 04/17/19 04/17/19 04/17/19 Range/Units 13:09 13:09 13:10 WBC 7.98 (3.98-10.04) K/mm3 RBC 4.15 (3.98-5.22) M/mm3 Hgb 11.5 (11.2-15.7) gm/L Hct 36.8 (34.1-44.9) % MCV 88.7 (79.4-94.8) fl MCH 27.7 (25.6-32.2) pg MCHC 31.3 L (32.2-35.5) g/dl RDW Std Deviation 58.6 H (36.4-46.3) fL Plt Count 211 (182-369) K/mm3 MPV 10.5 (9.4-12.3) fl Neutrophils % (Manual) 57 (40-60) % Band Neutrophils % 0 (0-10) % Lymphocytes % (Manual) 36 (20-40) % Atypical Lymphs % 0 % Monocytes % (Manual) 5 (2-10) % Eosinophils % (Manual) 0 L (0.7-5.8) % Basophils % (Manual) 2 H (0.1-1.2) Toxic Granulation 1+ slight Platelet Estimate Adequate RBC Morph Comment Normal Sodium 142 (136-145) mEq/L Potassium 3.6 (3.5-5.1) mEq/L Chloride 105 (98-107) mEq/L Carbon Dioxide 25 (21-32) mEq/L Anion Gap 15.6 H (5-15) BUN 8 (7-18) mg/dL Creatinine 1.0 (0.55-1.02) mg/dL Est Cr Clr Drug Dosing 77.63 mL/min Estimated GFR (MDRD) > 60 (>60) mL/min BUN/Creatinine Ratio 8.0 L (14-18) Glucose 83 (74-106) mg/dL Calcium 9.0 (8.5-10.1) mg/dL Total Bilirubin 0.2 (0.2-1.0) mg/dL AST 17 (15-37) U/L ALT 17 (14-59) U/L Alkaline Phosphatase 54 (46-116) U/L Total Protein 7.7 (6.4-8.2) g/dl Albumin 3.8 (3.4-5.0) g/dl Globulin 3.9 gm/dL Albumin/Globulin Ratio 1.0 (1-2) Lipase 264 (73-393) U/L Urine Color (Yellow) Urine Appearance (Clear) Urine pH (5.0-8.0) Ur Specific Cement (1.005-1.030) Urine Protein (Negative) Urine Glucose (UA) (Negative) Urine Ketones (Negative) Urine Occult Blood (Negative) Urine Nitrite (Negative) Urine Bilirubin (Negative) Urine Urobilinogen (0.2-1.0) Ur Leukocyte Esterase (Negative) Urine RBC (0-5) /hpf Urine WBC (0-5) /hpf Ur Squamous Epith Cells (0-5) /hpf Urine Bacteria (FEW) /hpf Urine Mucus (FEW) /hpf Urine Opiates Screen Negative (KASXQD=759) Ur Buprenorphine Scrn Negative (CUTOFF=10) Ur Oxycodone Screen Negative (NXY2SQ=796) Urine Methadone Screen Negative (HXTOXY=899) Ur Propoxyphene Screen Negative (KZWKFY=694) Ur Barbiturates Screen Negative (AYBMRD=600) Ur Tricyclics Screen Negative (YNWCXB=439) Ur Phencyclidine Scrn Negative (CUTOFF=25) Ur Amphetamine Screen Negative (OSEUXK=761) U Methamphetamines Scrn Negative (FMHGPZ=629) U Benzodiazepines Scrn Negative (TKRTUO=581) U Cocaine Metab Screen Negative (JSPJME=043) U Marijuana (THC) Screen Negative (CUTOFF=50) 04/17/19 Range/Units 13:10 WBC (3.98-10.04) K/mm3 RBC (3.98-5.22) M/mm3 Hgb (11.2-15.7) gm/L Hct (34.1-44.9) % MCV (79.4-94.8) fl MCH (25.6-32.2) pg MCHC (32.2-35.5) g/dl RDW Std Deviation (36.4-46.3) fL Plt Count (182-369) K/mm3 MPV (9.4-12.3) fl Neutrophils % (Manual) (40-60) % Band Neutrophils % (0-10) % Lymphocytes % (Manual) (20-40) % Atypical Lymphs % % Monocytes % (Manual) (2-10) % Eosinophils % (Manual) (0.7-5.8) % Basophils % (Manual) (0.1-1.2) Toxic Granulation Platelet Estimate RBC Morph Comment Sodium (136-145) mEq/L Potassium (3.5-5.1) mEq/L Chloride (98-107) mEq/L Carbon Dioxide (21-32) mEq/L Anion Gap (5-15) BUN (7-18) mg/dL Creatinine (0.55-1.02) mg/dL Est Cr Clr Drug Dosing mL/min Estimated GFR (MDRD) (>60) mL/min BUN/Creatinine Ratio (14-18) Glucose (74-106) mg/dL Calcium (8.5-10.1) mg/dL Total Bilirubin (0.2-1.0) mg/dL AST (15-37) U/L ALT (14-59) U/L Alkaline Phosphatase (46-116) U/L Total Protein (6.4-8.2) g/dl Albumin (3.4-5.0) g/dl Globulin gm/dL Albumin/Globulin Ratio (1-2) Lipase (73-393) U/L Urine Color Yellow (Yellow) Urine Appearance Clear (Clear) Urine pH 7.0 (5.0-8.0) Ur Specific Cement 1.025 (1.005-1.030) Urine Protein 2+ H (Negative) Urine Glucose (UA) Negative (Negative) Urine Ketones Negative (Negative) Urine Occult Blood Negative (Negative) Urine Nitrite Negative (Negative) Urine Bilirubin Negative (Negative) Urine Urobilinogen 0.2 (0.2-1.0) Ur Leukocyte Esterase Negative (Negative) Urine RBC Not seen (0-5) /hpf Urine WBC Not seen (0-5) /hpf Ur Squamous Epith Cells 0-5 (0-5) /hpf Urine Bacteria Not seen (FEW) /hpf Urine Mucus Not seen (FEW) /hpf Urine Opiates Screen (EWGLHD=815) Ur Buprenorphine Scrn (CUTOFF=10) Ur Oxycodone Screen (CIB7DP=637) Urine Methadone Screen (UXBETJ=860) Ur Propoxyphene Screen (YWRHIW=252) Ur Barbiturates Screen (GYVTYS=361) Ur Tricyclics Screen (ESEMVE=072) Ur Phencyclidine Scrn (CUTOFF=25) Ur Amphetamine Screen (SQKICC=026) U Methamphetamines Scrn (UILQLP=120) U Benzodiazepines Scrn (KPXTUH=133) U Cocaine Metab Screen (XQBADK=395) U Marijuana (THC) Screen (CUTOFF=50) Meds: Medications Discontinued Medications Generic Name Dose Route Start Last Admin Trade Name Dominic PRN Reason Stop Dose Admin Al Hydroxide/Mg Hydroxide 30 0 ml 04/17/19 12:53 04/17/19 13:04 ml/ Lidocaine HCl 15 ml PO 04/17/19 12:54 45 ml ONETIME ONE Administration Famotidine 40 mg 04/17/19 13:02 04/17/19 14:12 Pepcid PO 04/17/19 13:03 40 mg ONETIME ONE Administration Ondansetron HCl 4 mg 04/17/19 12:53 04/17/19 13:18 Zofran Odt PO 04/17/19 12:54 4 mg ONETIME ONE Administration Tramadol HCl 100 mg 04/17/19 12:54 04/17/19 13:17 Ultram PO 04/17/19 12:55 100 mg ONETIME ONE Administration - Re-Assessments/Exams Free Text/Narrative Re-Assessment/Exam: On exam patient's vital signs are stable. She does not appear to be in acute distress. Pain noted to the epigastric, right upper/left upper quadrant. Pattern is similar to previous episodes. The last evaluation in the emergency department she received injection of pain medications and then was discharged home. I did review the [place] Prescription Drug Monitoring site. Last prescribed oxycodone 03/20 2019. She is on alprazolam and zolpidem tartrate per Dr. Smith. No IV will be established. She does not appear to be dehydrated. We'll obtain basic labs including: CBC, 14, CRP, lipase, urine drug tox, UA, and also two- view of the abdomen. I ordered a GI cocktail, Pepcid 40 mg by mouth, Zofran 4 mg ODT, and also tramadol 100 mg by mouth. Patient will not receive any injections of Dilaudid. Labs reviewed: White blood cell count 10.98, hemoglobin normal, platelet count normal, sodium potassium normal, CO2 normal, AG 15.6, creatinine normal, lipase 264, UA negative for any concerning findings,and urine drug tox negative. X-ray of the abdomen reviewed with Dr. Gambino with nonspecific air in stool pattern. 04/17/19 14:22 Reassessment, patient resting in bed complaining of epigastric discomfort. I discussed lab results and also x-ray of the abdomen with the patient. I have offered to obtain CT of the abdomen and pelvis to further evaluate for cause of discomfort. Patient has refused. She has a history of chronic pancreatitis and at one point was on oral pain medications until she was diagnosed with Lee's disease. Patient states since starting steroids she has not needed the narcotics. I have elected not to provide any additional narcotics while in the emergency department. Vital signs are stable. Heart rate is non-tachycardic in the 60s. Nor will the patient be discharged home with any narcotics. She will need to see her PCP for further pain management. Patient voiced her understanding. She had no further questions or concerns. Discharge instructions as documented. Departure - Departure Time of Disposition: 14:31 Disposition: Home, Self-Care 01 Condition: Good Clinical Impression: Epigastric pain - Discharge Information Instructions: Managing Pain Without Opioids, Nausea and Vomiting, Adult, Easy- to-Read Referrals: Rik Walls PA-C [Primary Care Provider] - Forms: ED Department Discharge Additional Instructions: Please follow up with PCP for further pain management. All labs were essentially normal. Offered to obtain CT of the abdomen to evaluate for etiology current complaint which is not obtained. Continue taking all your home medications as prescribed. This includes the Zofran. Stick with a liquid diet. Return to the ED if you develop any new or worsening symptoms. - My Orders Last 24 Hours: My Active Orders 04/17/19 12:53 Abdomen 2V AP Flat Upright [CR] Stat - Assessment/Plan Last 24 Hours: My Active Orders 04/17/19 12:53 Abdomen 2V AP Flat Upright [CR] Stat
[2019-04-17] MEDS ORDERED: Ondansetron 4 MG Tab.DIS PO ONE (12:53)
[2019-04-17] MEDS ORDERED: Alum Hydrox/Mag Hydrox/Simeth 30 ML, Lidocaine 2% 15 ML PO ONE ×2 (12:53)
[2019-04-17] MEDS ORDERED: traMADol 50 MG Tab PO ONE (12:54)
[2019-04-17] MEDS ORDERED: Famotidine 20 MG Tab PO ONE (13:02)
[2019-04-17 14:17] VITALS: BP 146/102
--- NOTE | 2019-04-18 10:16 | CR ---
Abdomen: Supine and upright views of the abdomen were obtained. Comparison: No previous study. Scattered gas within small bowel and colon is seen. Small bowel gas is minimally prominent. Surgical clip is seen from prior cholecystectomy. Previous stomach surgery is noted. No free air is seen. Slight scoliosis is noted within the spine. Calcifications are noted within the pelvis most likely due to phleboliths. Impression: 1. Slightly prominent small bowel gas possibly due to mild gastroenteritis. This does not appear to be obstructive. 2. Other incidental findings. Diagnostic code #3
== END 2019-04-17 14:37 | disposition home or self-care (01) ==
LOC: JD.ED 12:23
DX: R10.13 Epigastric pain (principal); I10 Essential (primary) hypertension; F41.9 Anxiety disorder, unspecified; F32.9 Major depressive disorder, single episode, unspecified; E03.9 Hypothyroidism, unspecified; Z79.899 Other long term (current) drug therapy; Z88.8 Allergy status to other drugs, medicaments and biological substances
CPT/HCPCS: 36415; 74019; 80053; 80306; 81001; 83690; 85007; 85027; 99284; A9270; 99283

== ENCOUNTER 2019-05-03 10:52 | Emergency (ER) | payer BC, MEDICARE ==
[2019-05-03 11:03] VITALS: BP 148/92
[2019-05-03] MEDS ORDERED: traMADol 50 MG Tab PO ONE (11:45)
[2019-05-03] MEDS ORDERED: Promethazine 25 MG/ML SDV IM ONE (11:45)
--- NOTE | 2019-05-03 12:06 | EDM.PDOC ---
ED HPI GENERAL MEDICAL PROBLEM - General Chief Complaint: Abdominal Pain Stated Complaint: MICAELA DISEASE FLARE UP Time Seen by Provider: 05/03/19 11:09 Source of Information: Reports: Patient, RN Notes Reviewed History Limitations: Reports: No Limitations - History of Present Illness INITIAL COMMENTS - FREE TEXT/NARRATIVE: Patient is a 43-year-old female who presents to the ED for the evaluation of left upper quadrant abdominal pain. The patient is well-known to this ER for chronic pancreatitis/[place] disease, and narcotic usage. The patient states that the pain is quite similar to pain she has had in the past, this is a sharp stabbing intense pain to the left upper quadrant and does radiate to her back. She states she has been taken 1500 mg of Tylenol and 50 mg of Benadryl at a time to try to subside the pain however this is not helping. She characterizes some nausea, but does not elicit any active emesis at this time. She was seen by her primary care provider, Dr. Farzaneh Smith, for a preop appointment and a foot injury today. She she states that she is going to have carpal tunnel surgery. She has a GI specialist and a specialist that looks [facility] Micaela[facility] s [facility] She denies any fever/chills, chest pain/shortness of breath, any sort of lower abdominal pain, or any urinary issues. She states that she just could not get rid of the pain with the Tylenol and Benadryl at home. - Related Data Allergies Allergy/AdvReac Type Severity Reaction Status Date / Time buprenorphine [From Butrans] Allergy Itching Verified 05/03/19 11:03 metoclopramide HCl Allergy Itching Verified 05/03/19 11:03 [From Reglan] NSAIDS (Non-Steroidal Allergy Abdominal Verified 05/03/19 11:03 Anti-Inflamma Pain ketorolac [From Toradol] AdvReac Bleeding Verified 05/03/19 11:03 prochlorperazine AdvReac Vomiting Verified 05/03/19 11:03 [From Compazine] Home Meds: Home Meds ALPRAZolam [Xanax] 0.5 mg PO BID PRN 01/22/19 [History] Levothyroxine [Synthroid] 100 mcg PO DAILY 03/14/19 [History] Mirtazapine 30 mg PO BEDTIME 03/14/19 [History] Pantoprazole Sodium [Protonix] 40 mg PO DAILY 03/14/19 [History] Prazosin HCl [Prazosin] 5 mg PO DAILY 03/14/19 [History] Vortioxetine Hydrobromide [Trintellix] 15 mg PO DAILY 03/14/19 [History] Iron 1 tab PO DAILY 03/18/19 [History] Ondansetron [Zofran] 4 mg BUCCAL Q6H PRN #10 tab 03/20/19 [Rx] Past Medical History - Past Health History Medical/Surgical History: Denies Medical/Surgical History HEENT History: Reports: Glaucoma, Otitis Media Cardiovascular History: Reports: Hypertension Other Cardiovascular History: tachycardia Respiratory History: Reports: None Gastrointestinal History: Reports: Chronic Constipation, Hemorrhoids, Pancreatitis, Other (See Below) Other Gastrointestinal History: chronic pancreatitis, LUQ pain, gastric sleeve procedure, hemorrhoids Genitourinary History: Reports: UTI, Recurrent 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 REPAIR SUPERVISOR History: c section x3, tubes tied Musculoskeletal History: Reports: Arthritis, Fracture, Other (See Below) Other Musculoskeletal History: left foot fracture, elbow pain, wrist pain, weakness, falls Neurological History: 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 (See Below) Other Neuro History: pseudotumor, shunt, benign pineal brain tumor, memory loss , seizure disorder, vertigo, brain surgery x 16 Psychiatric History: Reports: Addiction, Anxiety, Depression Endocrine/Metabolic History: Reports: L[place]'s Disease, Hypothyroidism, Obesity /BMI 30+, Vitamin D Deficiency Other Endocrine/Metabolic History: hyperthyroidism, hypothyroidism, hashimotos, secondary adrenal insufficiency Hematologic History: Reports: Anemia, Other (See Below) Other Hematologic History: anti TPO antibody Immunologic History: Reports: None Oncologic (Cancer) History: Reports: None Dermatologic History: Reports: Cellulitis - Infectious Disease History Infectious Disease History: Reports: C-Difficile, MRSA Other Infectious Disease History: in 2006, 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." - Past Surgical History Head Surgeries/Procedures: Reports: Shunt HEENT Surgical History: Reports: Oral Surgery Other HEENT Surgeries/Procedures: [place] teeth removal Cardiovascular Surgical History: Reports: None Respiratory Surgical History: Reports: None GI Surgical History: Reports: Appendectomy, Bariatric Procedure, Cholecystectomy , Colonoscopy, EGD, ERCP Other GI Surgeries/Procedures: EUS Female Surgical History: Reports: Section, Tubal Ligation Other Female Surgeries/Procedures: C-SECTIONS X3 Endocrine Surgical History: Reports: None Neurological Surgical History: 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 (See Below) Other Neurological Surgeries/Procedures: brain tumor removal Musculoskeletal Surgical History: Reports: None Other Oncologic Surgeries/Procedures: Brain tumor removal Dermatological Surgical History: Reports: None Social & Family History - Family History Family Medical History: Noncontributory Cardiac: Reports: Bypass, Hypertension, MA Respiratory: Reports: Asthma Oncologic: Reports: Colon - Tobacco Use Smoking Status *Q: Never Smoker - Caffeine Use Caffeine Use: Reports: Coffee Other Caffeine Use: 1 cup daily - Recreational Drug Use Recreational Drug Use: No - Living Situation & Occupation Living situation: Reports: , with Spouse Occupation: Unemployed ED ROS GENERAL - Review of Systems Review Of Systems: See Below Constitutional: Denies: Fever, Chills HEENT: Reports: No Symptoms Respiratory: Reports: No Symptoms Cardiovascular: Reports: No Symptoms Endocrine: 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 (chronic pancreatitis) GI/Abdominal: Reports: Abdominal Pain (LUQ), Nausea. Denies: Constipation, Diarrhea, Vomiting : Reports: No Symptoms Musculoskeletal: Reports: No Symptoms Skin: Reports: No Symptoms Neurological: Reports: No Symptoms Psychiatric: Reports: No Symptoms Hematologic/Lymphatic: Reports: No Symptoms Immunologic: Reports: No Symptoms ED EXAM, GI/ABD - Physical Exam Exam: See Below Exam Limited By: No Limitations General Appearance: Alert, WD/WN, No Apparent Distress (Pt is appropriate at bedside, and is able to talk with me without eliciting much for a pain issue, until examined.) Eyes: Bilateral: Normal Appearance Ears: Normal External Exam Nose: Normal Inspection Throat/Mouth: Normal Inspection, Normal Lips, Normal Teeth, Normal Gums, Normal Oropharynx, Normal Voice, No Airway Compromise Head: Atraumatic, Normocephalic Neck: Normal Inspection Respiratory/Chest: No Respiratory Distress, Lungs Clear, Normal Breath Sounds, No Accessory Muscle Use, Chest Non-Tender Cardiovascular: Normal Peripheral Pulses, Regular Rate, Rhythm, No Murmur GI/Abdominal Exam: Normal Bowel Sounds, Soft, No Distention, No Mass, Tender ( LUQ point tenderness). No: Rigid, Rebound Extremities: Normal Inspection, Normal Capillary Refill Neurological: Alert, Oriented, Normal Cognition, No Motor/Sensory Deficits Psychiatric: Normal Affect, Normal Mood Skin Exam: Warm, Dry, Intact, Normal Color, No Rash Course - Vital Signs Last Recorded V/S: Last Vital Signs Temp 97.2 F 05/03/19 11:01 Pulse 80 05/03/19 11:01 Resp 16 05/03/19 11:01 BP 148/92 H 05/03/19 11:01 Pulse Ox 96 05/03/19 11:01 - Orders/Labs/Meds Meds: Medications Discontinued Medications Generic Name Dose Route Start Last Admin Trade Name Dominic PRN Reason Stop Dose Admin Promethazine HCl 37.5 mg 05/03/19 11:45 05/03/19 11:58 Phenergan IM 05/03/19 11:46 37.5 mg ONETIME ONE Administration Tramadol HCl 100 mg 05/03/19 11:45 05/03/19 11:58 Ultram PO 05/03/19 11:46 100 mg ONETIME ONE Administration - Re-Assessments/Exams Free Text/Narrative Re-Assessment/Exam: 05/03/19 12:07 Patient presents to the ED for the evaluation of left upper quadrant abdominal pain. Since his pain is very similar to pain she is experiencing the past, I did offer to do labs, however she declined at this time as she feels there will be no change. She states that she has here just for pain management; she further states that she does not want any prescriptions to take home. I did review her old charts, and her APPLE CHECKER was checked, she is well known for narcotic abuse disorder. Her last narcotic prescription was for 20 tabs of percocet 5/ 325 on 03/21. She is getting her alprazolam and zolpidem regularly filled by Dr. Smith and Dr. Sanchez. I do not feel that providing narcotic pain medications is appropriate at this time. I did order IM phenergan and 100mg PO tramadol. Will discharge home with general instructions. Departure - Departure Time of Disposition: 12:15 Disposition: Home, Self-Care 01 Condition: Fair Clinical Impression: Chronic LUQ pain - Discharge Information *PRESCRIPTION DRUG MONITORING PROGRAM REVIEWED*: No *COPY OF PRESCRIPTION DRUG MONITORING REPORT IN PATIENT ALE: No Instructions: Abdominal Pain, Adult, [id number] Referrals: Rik Walls, PHANI [Primary Care Provider] - Additional Instructions: You have been evaluated in the ED today for your chronic left upper quadrant abdominal pain. Labs were not done at this ER visit as you stated this pain is very similar to pain you've experienced in the past. You have been given an IM injection of Phenergan and 100 mg PO tramadol. Please continue to use your medications at home as previously directed. Recommend that you seek chronic pain management through your PCP. Please return to the ED if your symptoms change or worsen.
== END 2019-05-03 12:26 | disposition home or self-care (01) ==
LOC: JD.ED 10:52
DX: R10.12 Left upper quadrant pain (principal); G89.29 Other chronic pain; I10 Essential (primary) hypertension; F41.9 Anxiety disorder, unspecified; F32.9 Major depressive disorder, single episode, unspecified; Z88.8 Allergy status to other drugs, medicaments and biological substances; Z79.899 Other long term (current) drug therapy; Z88.5 Allergy status to narcotic agent
CPT/HCPCS: 96372; 99283; A9270; J2550

== ENCOUNTER 2019-05-16 06:06 | Day surgery (SDC) | payer BC, MEDICARE ==
[~2019-05-16 06:06] MED LIST changes: +Hydrocortisone Sodium Succinate 100 MG/2 ML SDV IVPUSH SCH
[2019-05-16] MEDS ORDERED: Lidocaine 1%/Sod Bicarbonate in NS 8.4% 1 ML Syringe IV ONE (06:52)
--- NOTE | 2019-05-16 06:57 | PCM.PREANE ---
Preanesthetic Assessment - Anesthesia/Transfusion/Family Hx Anesthesia History: Prior Anesthesia Without Reaction Family History of Anesthesia Reaction: No Transfusion History: No Prior Transfusion(s) Type of Transfusion Reactions: Reports: Unknown Intubation History: Unknown - Review of Systems General: No Symptoms Pulmonary: No Symptoms Cardiovascular: No Symptoms Gastrointestinal: No Symptoms Neurological: Numbness (leobardo hands) Other: Reports: Easy Bruising, Thyroid Problems (hypothyroid) - Physical Assessment NPO Status Date: 05/15/19 NPO Status Time: 00:00 Pulse: 72 O2 Sat by Pulse Oximetry: 98 Respiratory Rate: 16 Blood Pressure: 151/93 Temperature: 36.5 C Height: 1.78 m Weight: 121 kg ASA Class: 3 Mental Status: Alert & Oriented x3 Airway Class: Mallampati = 3 Dentition: Reports: Missing Tooth/Teeth Thyro-Mental Finger Breadths: 2 Mouth Opening Finger Breadths: 2 ROM/Head Extension: Limited/Partial Lungs: Clear to Auscultation Cardiovascular: Regular Rate, Regular Rhythm - Lab Values: Laboratory Last Values MRSA (PCR) Negative 05/06/19 09:58 - Allergies Allergies/Adverse Reactions: Allergies Allergy/AdvReac Type Severity Reaction Status Date / Time buprenorphine [From Butrans] Allergy Itching Verified 05/15/19 11:05 metoclopramide HCl Allergy Itching Verified 05/15/19 11:05 [From Reglan] NSAIDS (Non-Steroidal Allergy Abdominal Verified 05/15/19 11:05 Anti-Inflamma Pain ketorolac [From Toradol] AdvReac Bleeding Verified 05/15/19 11:05 prochlorperazine AdvReac Vomiting Verified 05/15/19 11:05 [From Compazine] - Blood Blood Available: No Product(s) Available: None - Anesthesia Plan Pre-Op Medication Ordered: None - Acknowledgements Anesthesia Type Planned: MAC Pt an Appropriate Candidate for the Planned Anesthesia: Yes Alternatives and Risks of Anesthesia Discussed w Pt/Guardian: Yes Pt/Guardian Understands and Agrees with Anesthesia Plan: Yes PreAnesthesia Questionnaire - Past Health History Medical/Surgical History: Denies Medical/Surgical History HEENT History: Reports: Glaucoma, Otitis Media Cardiovascular History: Reports: Hypertension Other Cardiovascular History: tachycardia Respiratory History: Reports: None Gastrointestinal History: Reports: Chronic Constipation, Hemorrhoids, Pancreatitis, Other (See Below) Other Gastrointestinal History: chronic pancreatitis, LUQ pain, gastric sleeve procedure, hemorrhoids Genitourinary History: Reports: UTI, Recurrent 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 OB/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 History: c section x3, tubes tied Musculoskeletal History: Reports: Arthritis, Fracture, Other (See Below) Other Musculoskeletal History: left foot fracture, elbow pain, wrist pain, weakness, falls Neurological History: Reports: TIA (Nov), Other (See Below) Other Neuro History: pseudotumor, shunt, benign pineal brain tumor, memory loss , seizure disorder, vertigo, brain surgery x 16 Psychiatric History: Reports: Addiction, Anxiety, Depression Endocrine/Metabolic History: Reports: [place]'s Disease, Hypothyroidism, Obesity /BMI 30+, Vitamin D Deficiency Other Endocrine/Metabolic History: hyperthyroidism, hypothyroidism, hashimotos, secondary adrenal insufficiency Hematologic History: Reports: Anemia, Other (See Below) Other Hematologic History: anti TPO antibody Immunologic History: Reports: None Oncologic (Cancer) History: Reports: None Dermatologic History: Reports: Cellulitis - Infectious Disease History Infectious Disease History: Reports: C-Difficile, MRSA Other Infectious Disease History: in 2006, 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." - Past Surgical History Head Surgeries/Procedures: Reports: Shunt HEENT Surgical History: Reports: Oral Surgery Other HEENT Surgeries/Procedures: [place] teeth removal Cardiovascular Surgical History: Reports: None Respiratory Surgical History: Reports: None GI Surgical History: Reports: Appendectomy, Bariatric Procedure, Cholecystectomy , Colonoscopy, EGD, ERCP Other GI Surgeries/Procedures: EUS Female Surgical History: Reports: Section, Tubal Ligation Other Female Surgeries/Procedures: C-SECTIONS X3 Endocrine Surgical History: Reports: None Neurological Surgical History: 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 (See Below) Other Neurological Surgeries/Procedures: brain tumor removal Musculoskeletal Surgical History: Reports: None Other Oncologic Surgeries/Procedures: Brain tumor removal Dermatological Surgical History: Reports: None - SUBSTANCE USE Smoking Status *Q: Never Smoker Recreational Drug Use History: No - HOME MEDS Home Medications: Home Meds Mirtazapine 30 mg PO BEDTIME 03/14/19 [History] Pantoprazole Sodium [Protonix] 40 mg PO BID 03/14/19 [History] Prazosin HCl [Prazosin] 5 mg PO BEDTIME 03/14/19 [History] Vortioxetine Hydrobromide [Trintellix] 10 mg PO DAILY 03/14/19 [History] ALPRAZolam [Alprazolam] 0.5 mg PO BID 05/15/19 [History] Ascorbic Acid [Vitamin C] 250 mg PO DAILY 05/15/19 [History] Cetirizine HCl [Allergy Relief] 10 mg PO DAILY 05/15/19 [History] Ferrous Sulfate [Iron] 650 mg PO BID 05/15/19 [History] Levothyroxine [Synthroid] 100 mg PO DAILY 05/15/19 [History] QUEtiapine Fumarate [Quetiapine Fumarate] 75 mg PO BEDTIME 05/15/19 [History] - CURRENT (IN HOUSE) MEDS Current Meds: Current Medications Hydrocortisone Sodium Succinate (Solu-Cortef) 50 mg IVPUSH ONETIME EDSON Stop: 05/16/19 15:00 Last Admin: 05/16/19 06:42 Dose: 50 mg Discontinued Medications Bupivacaine HCl (Marcaine 0.25%) Confirm Administered Dose 30 ml .ROUTE .STK- MED ONE Stop: 05/16/19 06:28 Lactated Ringer's (Ringers, Lactated) 1,000 mls @ 125 mls/hr IV ASDIRECTED EDSON Stop: 05/12/19 23:00 Lidocaine HCl (Xylocaine-Mpf 1%) Confirm Administered Dose 30 ml .ROUTE .STK- MED ONE Stop: 05/16/19 06:28 Lidocaine/Sodium Bicarbonate (Buffered Lidocaine 1% In Ns 8.4%) 0.25 ml IDERM ONETIME PRN PRN Reason: Prior to IV Start Stop: 05/12/19 18:00 Sodium Chloride (Saline Flush) 10 ml FLUSH ASDIRECTED PRN PRN Reason: Keep Vein Open Stop: 05/12/19 18:00
[2019-05-16] MEDS ORDERED: Sodium Chloride 0.9% 10 ML Syringe FLUSH SCH (07:00)
[2019-05-16] MEDS ORDERED: Lactated Ringers 1,000 ML IV SCH (07:00)
[2019-05-16] MEDS ORDERED: fentaNYL 100 MCG/2 ML SDV ONE (07:04)
[2019-05-16] MEDS ORDERED: Lidocaine 1% 4 ML ONE (07:04)
[2019-05-16] MEDS ORDERED: Ondansetron 4 MG/2 ML SDV ONE (07:04)
[2019-05-16] MEDS ORDERED: Midazolam 1 MG/ML 2 ML SDV ONE (07:04)
[2019-05-16] MEDS ORDERED: Propofol 200 MG/20 ML SDV ONE ×3 (07:04→07:57)
[2019-05-16] MEDS ORDERED: ceFAZolin 1 GM Vial ONE ×2 (07:05→07:22)
[2019-05-16] MEDS: Lidocaine 1% 30 ML SDV ONE ×2 (07:40→07:49)
[2019-05-16] MEDS: Bupivacaine 0.25% 30 ML SDV ONE ×2 (07:40→07:49)
--- NOTE | 2019-05-16 08:19 | PCM48HPAN ---
Post Anesthesia Note - EVALUATION WITHIN 48HRS OF ANESTHETIC Vital Signs in Normal Range: Yes Patient Participated in Evaluation: Yes Respiratory Function Stable: Yes Airway Patent: Yes Cardiovascular Function Stable: Yes Hydration Status Stable: Yes Pain Control Satisfactory: Yes Nausea and Vomiting Control Satisfactory: Yes Mental Status Recovered: Yes - COMMENTS/OBSERVATIONS Free Text/Narrative:: no anesthesia complications noted
[2019-05-16 08:59] VITALS: BP 152/91
--- NOTE | 2019-05-16 11:11 | PCM.OPNOTE ---
- General Post-Op/Procedure Note Date of Surgery/Procedure: 05/16/19 Operative Procedure(s): bilateral carpal tunnel release Pre Op Diagnosis: bilateral median nerve compression neuropathy Post-Op Diagnosis: Same Anesthesia Technique: Local, MAC Primary Surgeon: Marlon Mello Anesthesia Provider: Dat Arevalo Financial Accountant: Alexia Maguire EBL in mLs: 5 Complications: None Condition: Good Free Text/Narrative:: Intake & Output 05/15/19 05/16/19 05/16/19 22:59 06:59 14:59 Intake Total 300 Balance 300
--- NOTE | 2019-05-16 11:38 | OR ---
DATE OF OPERATION: 05/16/2019 SURGEON: Marlon Mello MD OPERATION PERFORMED: Bilateral carpal tunnel release. PREOPERATIVE DIAGNOSIS: Bilateral median nerve compression neuropathy. POSTOPERATIVE DIAGNOSIS: Bilateral median nerve compression neuropathy. ANESTHESIA: Local MAC. ANESTHESIA PROVIDER: Esequiel Villalpando. OPERATING ROOM ORDERLY: Alexia Maguire PA-C. ESTIMATED BLOOD LOSS: Less than 5 mL. COMPLICATIONS: None. CONDITION: Stable. DESCRIPTION OF PROCEDURE: The patient was identified in the preop holding area. Proper sites was marked and identified by the surgeon. The patient was taken back to the operating theater where after adequate anesthesia, the patient's bilateral upper extremities were sterilely prepped and draped in the usual sterile fashion. OR time-out was performed. The patient received IV antibiotics. At this time, the left upper extremity was exsanguinated and an Esmarch was used as a tourniquet on the forearm. At this time, using 1% lidocaine without epinephrine and 0.25% Marcaine without epinephrine, the palmar cutaneous branch of the median nerve was anesthetized and then the incisional site was anesthetized using Barnett cardinal line and ulnar border of the fourth digit as reference. Once this had set up, an incision was made. Blunt dissection was taken down to the palmar cutaneous fascia. Palmar cutaneous fascia was incised with a [place] blade. At this time, the transverse carpal ligament was identified. A small rent was made in the transverse carpal ligament with a [place] blade under direct visualization. Resection of the transverse carpal ligament was done distally using tenotomy scissors making sure to stop short of the palmar arch. At this time, attention was turned proximally after it was found to be adequately released. Using the tenotomy scissors keeping the tips ulnar to protect the palmar cutaneous branch of the median nerve, the superficial forearm fascia as well as the transverse carpal ligament were resected proximally. It was found to be adequate release both proximally and distally. At this time, the right upper extremity was exsanguinated and an Esmarch was used as a tourniquet on the forearm. At this time, using 1% lidocaine without epinephrine and 0.25% Marcaine without epinephrine, the palmar cutaneous branch of the median nerve was anesthetized and then the incisional site was anesthetized using Barnett cardinal line and ulnar border of the fourth digit as reference. Once this had set up, an incision was made. Blunt dissection was taken down to the palmar cutaneous fascia. Palmar cutaneous fascia was incised with a [place] blade. At this time, the transverse carpal ligament was identified. A small rent was made in the transverse carpal ligament with a [place] blade under direct visualization. Resection of the transverse carpal ligament was done distally using tenotomy scissors making sure to stop short of the palmar arch. At this time, attention was turned proximally after it was found to be adequately released. Using the tenotomy scissors keeping the tips ulnar to protect the palmar cutaneous branch of the median nerve, the superficial forearm fascia as well as the transverse carpal ligament were resected proximally. It was found to be adequate release both proximally and distally.At this time, adequate saline was irrigated through the wound. 4-0 nylon sutures were used closure of the skin. The patient was placed in a sterile soft dressings and sent to PACU in stable condition. MADELINE /[id number] SARAH
== END 2019-05-16 08:51 | disposition home or self-care (01) ==
LOC: JD.SDS 06:06
PROVIDERS: ATTEND Orthopaedic Surgery
DX: G56.03 Carpal tunnel syndrome, bilateral upper limbs (principal); I10 Essential (primary) hypertension; E03.9 Hypothyroidism, unspecified; E27.49 Other adrenocortical insufficiency; E06.3 Autoimmune thyroiditis; D50.9 Iron deficiency anemia, unspecified; F32.9 Major depressive disorder, single episode, unspecified; G40.909 Epilepsy, unspecified, not intractable, without status epilepticus; R73.03 Prediabetes; E66.9 Obesity, unspecified; Z68.41 Body mass index [BMI] 40.0-44.9, adult; Z88.6 Allergy status to analgesic agent; Z88.8 Allergy status to other drugs, medicaments and biological substances; Z98.2 Presence of cerebrospinal fluid drainage device; Z79.899 Other long term (current) drug therapy
CPT/HCPCS: 64721; 87641; J0690; J1720; J2001; J2250; J2405; J2704; J3010; J3490; J7120; 01810

== ENCOUNTER 2019-07-15 09:17 | Emergency (ER) | payer BC, MEDICARE ==
[2019-07-15 09:25] VITALS: BP 154/95
--- NOTE | 2019-07-15 09:35 | EDM.PDOC ---
ED HPI GENERAL MEDICAL PROBLEM - General Chief Complaint: Abdominal Pain Stated Complaint: ABD PAIN Time Seen by Provider: 07/15/19 09:34 Source of Information: Reports: Patient History Limitations: Reports: No Limitations - History of Present Illness INITIAL COMMENTS - FREE TEXT/NARRATIVE: 43-year-old male femsuraj presents the ED with recurrent left upper quadrant abdominal pain rating through to her back characteristic of her usual abdominal pain syndrome. Is felt to be due to chronic pancreatitis. states she had a bout about a week to 10 days ago and did receive pain medication in [place] while she was taking her son to and issue in [place]. They did lab work there and found that her lipase was significantly elevated which is unusual as we've not found her lipase is elevated for a prolonged period of time. She settled down after a couple of days. Over the last 3 days she's developed generalized increasing left upper quadrant abdominal pain rating through to her back and then developed acute onset of bilious emesis and steatorrhea diarrhea overnight. I'll keep anything down. She's had about 3 weeks in between without a flareup of pancreatitis. Onset: Gradual Onset Date: 07/14/19 ([place] pain yesterday gradually intensifying.) Duration: Hour(s):, Constant, Getting Worse Location: Reports: Abdomen (Left upper quadrant of the abdomen), Radiates to ( Radiates through to the mid back particularly inferior to the left) Quality: Reports: Ache ( scapula described as a deep boring aching pain.), Other Severity: Severe (Constant with no colicky component) Improves with: Reports: None Worsens with: Reports: None ( 9 out of 10) Context: Denies: Activity, Exercise, Lifting, Sick Contact, Trauma, Other Associated Symptoms: Reports: Loss of Appetite, Malaise, Nausea/Vomiting, Weakness, Other (Steatorrhea diarrhea mostly yellowish liquid). 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 (see below) Upper Abdominal Pain Score (Numeric/FACES): 8 - Related Data Allergies Allergy/AdvReac Type Severity Reaction Status Date / Time buprenorphine [From Butrans] Allergy Itching Verified 07/15/19 09:26 metoclopramide HCl Allergy Itching Verified 07/15/19 09:26 [From Reglan] ketorolac [From Toradol] AdvReac Bleeding Verified 07/15/19 09:26 NSAIDS (Non-Steroidal AdvReac Abdominal Verified 07/15/19 09:26 Anti-Inflamma Pain prochlorperazine AdvReac Vomiting Verified 07/15/19 09:26 [From Compazine] Home Meds: Home Meds Mirtazapine 30 mg PO BEDTIME 03/14/19 [History] Pantoprazole Sodium [Protonix] 40 mg PO BID 03/14/19 [History] Prazosin HCl [Prazosin] 5 mg PO BEDTIME 03/14/19 [History] Vortioxetine Hydrobromide [Trintellix] 10 mg PO DAILY 03/14/19 [History] ALPRAZolam [Alprazolam] 0.5 mg PO BID 05/15/19 [History] Cetirizine HCl [Allergy Relief] 10 mg PO DAILY 05/15/19 [History] Ferrous Sulfate [Iron] 650 mg PO BID 05/15/19 [History] Levothyroxine [Synthroid] 100 mg PO DAILY 05/15/19 [History] QUEtiapine Fumarate [Quetiapine Fumarate] 75 mg PO BEDTIME 05/15/19 [History] Hydrocortisone 10 mg PO ASDIRECTED 05/16/19 [History] Hydrocortisone 20 mg PO DAILY 05/16/19 [History] Cholecalciferol (Vitamin D3) [Vitamin D3] 1 tab PO DAILY 06/28/19 [History] Past Medical History - Past Health History Medical/Surgical History: Denies Medical/Surgical History HEENT History: Reports: Glaucoma, Otitis Media Cardiovascular History: Reports: Hypertension Other Cardiovascular History: tachycardia Respiratory History: Reports: None Gastrointestinal History: Reports: Chronic Constipation, Hemorrhoids, Pancreatitis, Other (See Below) Other Gastrointestinal History: chronic pancreatitis, LUQ pain, gastric sleeve procedure, hemorrhoids Genitourinary History: Reports: UTI, Recurrent BIOLOGY MANAGER History: 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 BIOLOGY MANAGER History: c section x3, tubes tied Musculoskeletal History: Reports: Arthritis, Fracture, Other (See Below) Other Musculoskeletal History: left foot fracture, elbow pain, wrist pain, weakness, falls Neurological History: Reports: TIA, Other (See Below) Other Neuro History: pseudotumor, shunt, benign pineal brain tumor, memory loss , seizure disorder, vertigo, brain surgery x 16 Psychiatric History: Reports: Addiction, Anxiety, Depression Endocrine/Metabolic History: Reports: [place]'s Disease, Hypothyroidism, Obesity /BMI 30+, Vitamin D Deficiency Other Endocrine/Metabolic History: hyperthyroidism, hypothyroidism, hashimotos, secondary adrenal insufficiency Hematologic History: Reports: Anemia, Other (See Below) Other Hematologic History: anti TPO antibody Immunologic History: Reports: None Oncologic (Cancer) History: Reports: None Dermatologic History: Reports: Cellulitis - Infectious Disease History Infectious Disease History: Reports: C-Difficile, MRSA Other Infectious Disease History: in 2006, 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 dental extraction Cardiovascular Surgical History: Reports: None Respiratory Surgical History: Reports: None GI Surgical History: Reports: Appendectomy, Bariatric Procedure, Cholecystectomy , Colonoscopy, EGD, ERCP Other GI Surgeries/Procedures: EUS Female Surgical History: Reports: Section, Tubal Ligation Other Female Surgeries/Procedures: C-SECTIONS X3 Endocrine Surgical History: Reports: None Neurological Surgical History: 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 (See Below) Other Neurological Surgeries/Procedures: brain tumor removal Musculoskeletal Surgical History: Reports: None Other Oncologic Surgeries/Procedures: Brain tumor removal Dermatological Surgical History: Reports: None Social & Family History - Family History Family Medical History: Noncontributory Cardiac: Reports: Bypass, Hypertension, [place] Respiratory: Reports: Asthma Oncologic: Reports: Colon - Tobacco Use Smoking Status *Q: Never Smoker Second Hand Smoke Exposure: No - Caffeine Use Caffeine Use: Reports: None Other Caffeine Use: 1 cup daily - Recreational Drug Use Recreational Drug Use: No - Living Situation & Occupation Living situation: Reports: , with Spouse Occupation: Unemployed ED ROS GENERAL - Review of Systems Review Of Systems: See Below Constitutional: Reports: Malaise, Weakness, Fatigue, Decreased Appetite. Denies : Fever, Chills HEENT: Reports: No Symptoms Respiratory: Reports: No Symptoms Cardiovascular: Reports: No Symptoms Endocrine: Reports: Fatigue GI/Abdominal: Reports: Abdominal Pain, Diarrhea (Standard. Diarrhea 5 times since 3:00 this morning. Small quantity yellow liquid.), Decreased Appetite ( See history of present illness), Nausea, Vomiting (Bilious emesis.) : Reports: No Symptoms Musculoskeletal: Reports: Back Pain Skin: Reports: No Symptoms Neurological: Reports: Dizziness Psychiatric: Reports: No Symptoms Hematologic/Lymphatic: Reports: No Symptoms Immunologic: Reports: No Symptoms ED EXAM, GI/ABD - Physical Exam Exam: See Below Exam Limited By: No Limitations General Appearance: Alert, WD/WN, Moderate Distress Eyes: Bilateral: Normal Appearance (No scleral icterus.) Throat/Mouth: Other (Tongue is mostly dry. Coated white) Head: Atraumatic, Normocephalic Neck: Normal Inspection, Supple, Non-Tender, Full Range of Motion. No: Carotid Bruit, Lymphadenopathy (L), Lymphadenopathy (R) Respiratory/Chest: No Respiratory Distress, Lungs Clear, Normal Breath Sounds, No Accessory Muscle Use, Prolonged Expiration Cardiovascular: Regular Rate, Rhythm, No Edema, No Gallop, No Murmur, No Rub GI/Abdominal Exam: No Organomegaly, No Mass, Pelvis Stable, Guarding, Tender, Abnormal Bowel Sounds ([place] bowel sounds all 4 quadrants). No: Distended, Rigid (Tender right upper quadrant of the abdomen with guarding), Rebound Back Exam: Normal Inspection, Full Range of Motion, CVA Tenderness (L). No: CVA Tenderness (R) (Mild), Decreased Range of Motion, Muscle Spasm Extremities: Normal Inspection, Normal Range of Motion, Non-Tender, No Pedal Edema Neurological: Alert, Oriented, CN II-XII Intact, Normal Cognition, No Motor/ Sensory Deficits Psychiatric: Normal Affect, Normal Mood Skin Exam: Warm, Dry, Intact, Normal Color, No Rash Course - Vital Signs Last Recorded V/S: Last Vital Signs Temp 36.1 C 07/15/19 09:24 Pulse 85 07/15/19 09:24 Resp 16 07/15/19 09:24 BP 154/95 H 07/15/19 09:24 Pulse Ox 100 07/15/19 09:24 - Orders/Labs/Meds Labs: Laboratory Tests 07/15/19 07/15/19 Range/Units 10:00 10:00 WBC 8.27 (3.98-10.04) K/mm3 RBC 4.16 (3.98-5.22) M/mm3 Hgb 12.7 (11.2-15.7) gm/L Hct 39.8 (34.1-44.9) % MCV 95.7 H D (79.4-94.8) fl MCH 30.5 (25.6-32.2) pg MCHC 31.9 L (32.2-35.5) g/dl RDW Std Deviation 52.0 H (36.4-46.3) fL Plt Count 250 (182-369) K/mm3 MPV 9.1 L (9.4-12.3) fl Neut % (Auto) 57.9 (34.0-71.1) % Lymph % (Auto) 29.5 (19.3-51.7) % [place] % (Auto) 11.6 (4.7-12.5) % Eos % (Auto) 0.8 (0.7-5.8) Baso % (Auto) 0.2 (0.1-1.2) % Neut # (Auto) 4.78 (1.56-6.13) K/mm3 Lymph # (Auto) 2.44 (1.18-3.74) K/mm3 [place] # (Auto) 0.96 H (0.24-0.36) K/mm3 Eos # (Auto) 0.07 (0.04-0.36) K/mm3 Baso # (Auto) 0.02 (0.01-0.08) K/mm3 Sodium 142 (136-145) mEq/L Potassium 3.9 (3.5-5.1) mEq/L Chloride 102 (98-107) mEq/L Carbon Dioxide 30 (21-32) mEq/L Anion Gap 13.9 (5-15) BUN 14 (7-18) mg/dL Creatinine 0.9 (0.55-1.02) mg/dL Est Cr Clr Drug Dosing 86.26 mL/min Estimated GFR (MDRD) > 60 (>60) mL/min BUN/Creatinine Ratio 15.6 (14-18) Glucose 85 (74-106) mg/dL Calcium 9.1 (8.5-10.1) mg/dL Total Bilirubin 0.3 (0.2-1.0) mg/dL AST 21 (15-37) U/L ALT 21 (14-59) U/L Alkaline Phosphatase 55 (46-116) U/L Total Protein 7.8 (6.4-8.2) g/dl Albumin 3.6 (3.4-5.0) g/dl Globulin 4.2 gm/dL Albumin/Globulin Ratio 0.9 L (1-2) Lipase 313 (73-393) U/L Meds: Medications Discontinued Medications Generic Name Dose Route Start Last Admin Trade Name Dominic PRN Reason Stop Dose Admin Diphenhydramine HCl 50 mg 07/15/19 09:43 07/15/19 09:54 Benadryl IM 07/15/19 09:44 50 mg ONETIME ONE Administration Hydrocortisone Sodium Succinate 50 mg 07/15/19 09:51 07/15/19 09:57 Solu-Cortef IVPUSH 07/15/19 09:52 50 mg ONETIME ONE Administration Hydromorphone HCl 2 mg 07/15/19 09:42 07/15/19 09:55 Dilaudid IM 07/15/19 09:43 2 mg ONETIME ONE Administration Hydromorphone HCl 1 mg 07/15/19 11:00 07/15/19 11:17 Dilaudid IM 07/15/19 11:01 1 mg ONETIME ONE Administration Promethazine HCl 37.5 mg 07/15/19 09:42 07/15/19 09:54 Phenergan IM 07/15/19 09:43 37.5 mg ONETIME ONE Administration - Radiology Interpretation Free Text/Narrative:: 43-year-old female attends the ED with recurrence of left upper quadrant abdominal pain rating to Dr. cates characteristic of her presumed recurrent chronic pancreatitis. She is on pancreatic enzyme supplements and is enjoyed about 3 weeks without a flareup. Current pain syndrome started yesterday but intensified overnight. Developed nausea vomiting and steatorrhea diarrhea since that time. Pain is a deep boring and described as 9 out of 10. She has limited access to her veins due to overuse of the veins. Medications to be given IM. Dilaudid 2 mg IM with Benadryl 50 mg IM and Phenergan 37.5 mg IM. Labs to be done to include a serum lipase. Patient is also [place]'s disease. Will give her hydrocortisone 50 mg IM as well. - Re-Assessments/Exams Free Text/Narrative Re-Assessment/Exam: 07/15/19 10:52 Labs reveal a white count of 8.27 with auto differential showing 50% neutrophils and no band cells. Hemoglobin is 12.7 MCV is mildly elevated at 95.7. Platelet count 250,000. Sodium 142 with potassium of 3.9. Chloride 102 with a bicarbonate 30. Anion gap is 13.9. BUN is 14 with a creatinine of 0.9. GFR is greater than 60. Glucose is 85. Lipase today is 313. Calcium 9.1. Liver function normal the protein 7.8 with an albumin fraction of 3.6. Patient was appraised of the findings of the labs. She reports she is much improved pain is currently 3-4 out of 10. Will repeat Dilaudid 1 mg IM. I will then be to discharge her home. Her is here to drive her home. Departure - Departure Time of Disposition: 11:02 Disposition: Home, Self-Care 01 Condition: Fair Clinical Impression: Chronic relapsing pancreatitis - Discharge Information *PRESCRIPTION DRUG MONITORING PROGRAM REVIEWED*: No *COPY OF PRESCRIPTION DRUG MONITORING REPORT IN PATIENT ALE: No Instructions: Chronic Pancreatitis Referrals: Farzaneh Smith MD [Primary Care Provider] - Forms: ED Department Discharge Additional Instructions: Evaluation the emergency room today in regards to recurrence of left upper quadrant abdominal pain characteristic of your chronic relapsing pancreatitis. Associated nausea vomiting and steatorrhea diarrhea. Lab work today reveals a normal lipase at 313 which almost always we have identified lipase to be upper limits of normal or in the normal range. You're treated with intramuscular injections of analgesia with Dilaudid and Phenergan and Benadryl 50 mg IM. Suggest home to sleep. Resume normal medications when able later this morning. Light diet of course for the next couple of days.
[2019-07-15] MEDS ORDERED: Promethazine 25 MG/ML SDV IM ONE (09:42)
[2019-07-15] MEDS ORDERED: HYDROmorphone 1 MG/ML Syringe IM ONE ×2 (09:42→11:00)
[2019-07-15] MEDS ORDERED: diphenhydrAMINE 50 MG/ML SDV IM ONE (09:43)
[2019-07-15] MEDS ORDERED: Hydrocortisone Sodium Succinate 100 MG/2 ML SDV IVPUSH ONE (09:51)
== END 2019-07-15 11:20 | disposition home or self-care (01) ==
LOC: JD.ED 09:17
DX: K86.1 Other chronic pancreatitis (principal); D64.9 Anemia, unspecified; I10 Essential (primary) hypertension; F41.9 Anxiety disorder, unspecified; F32.9 Major depressive disorder, single episode, unspecified; E03.9 Hypothyroidism, unspecified; M19.90 Unspecified osteoarthritis, unspecified site; Z88.8 Allergy status to other drugs, medicaments and biological substances; Z88.6 Allergy status to analgesic agent; Z79.899 Other long term (current) drug therapy; Z86.73 Personal history of transient ischemic attack (TIA), and cerebral infarction without residual deficits; Z90.49 Acquired absence of other specified parts of digestive tract
CPT/HCPCS: 36415; 80053; 83690; 85025; 96372; 99284; J1170; J1200; J1720; J2550

== ENCOUNTER 2019-07-31 08:11 | Emergency (ER) | payer BC, MEDICARE ==
[2019-07-31 08:24] VITALS: BP 120/109; PULSE 108
[2019-07-31] MEDS ORDERED: HYDROmorphone 1 MG/ML Syringe IM ONE (08:47)
[2019-07-31] MEDS ORDERED: Promethazine 25 MG/ML SDV IM ONE (08:48)
--- NOTE | 2019-07-31 08:53 | EDM.PDOC ---
ED HPI GENERAL MEDICAL PROBLEM - General Chief Complaint: Abdominal Pain Stated Complaint: ABDOMINAL PAIN Time Seen by Provider: 07/31/19 08:25 Source of Information: Reports: Patient, Family History Limitations: Reports: No Limitations - History of Present Illness INITIAL COMMENTS - FREE TEXT/NARRATIVE: The patient presents with her for abdominal pain. This started 2 days ago according to the patient. Her tells me this has actually been going on for over a month. She has the pain and nausea with vomiting at times. She has no diarrhea. She does not have an appetite. She has a history of chronic pancreatitis. She has been seen by Dr Gutierrez at the [facility]. She is scheduled to go back there on August 17. She has no fever , chills, cough, congestion, chest pain or shortness of breath. Onset: Gradual Duration: Day(s): Location: Reports: Abdomen Quality: Reports: Sharp Severity: Severe Improves with: Reports: None Worsens with: Reports: None Associated Symptoms: Reports: Nausea/Vomiting. Denies: Chest Pain, Cough, Fever /Chills, Headaches, Shortness of Breath Left Upper Abdomen Pain Score (Numeric/FACES): 8 - Related Data Allergies Allergy/AdvReac Type Severity Reaction Status Date / Time buprenorphine [From Butrans] Allergy Itching Verified 07/31/19 08:24 metoclopramide HCl Allergy Itching Verified 07/31/19 08:24 [From Reglan] ketorolac [From Toradol] AdvReac Bleeding Verified 07/31/19 08:24 NSAIDS (Non-Steroidal AdvReac Abdominal Verified 07/31/19 08:24 Anti-Inflamma Pain prochlorperazine AdvReac Vomiting Verified 07/31/19 08:24 [From Compazine] Home Meds: Home Meds Mirtazapine 30 mg PO BEDTIME 03/14/19 [History] Pantoprazole Sodium [Protonix] 40 mg PO BID 03/14/19 [History] Prazosin HCl [Prazosin] 5 mg PO BEDTIME 03/14/19 [History] Vortioxetine Hydrobromide [Trintellix] 10 mg PO DAILY 03/14/19 [History] ALPRAZolam [Alprazolam] 0.5 mg PO BID 05/15/19 [History] Cetirizine HCl [Allergy Relief] 10 mg PO DAILY 05/15/19 [History] Ferrous Sulfate [Iron] 650 mg PO BID 05/15/19 [History] Levothyroxine [Synthroid] 125 mcg PO DAILY 05/15/19 [History] QUEtiapine Fumarate [Quetiapine Fumarate] 75 mg PO BEDTIME 05/15/19 [History] Hydrocortisone 10 mg PO ASDIRECTED 05/16/19 [History] Hydrocortisone 20 mg PO DAILY 05/16/19 [History] Cholecalciferol (Vitamin D3) [Vitamin D3] 1 tab PO DAILY 06/28/19 [History] Meloxicam 7.5 mg PO DAILY 07/31/19 [History] Past Medical History - Past Health History Medical/Surgical History: Denies Medical/Surgical History HEENT History: Reports: Glaucoma, Otitis Media Cardiovascular History: Reports: Hypertension Other Cardiovascular History: tachycardia Respiratory History: Reports: None Gastrointestinal History: Reports: Chronic Constipation, Hemorrhoids, Pancreatitis, Other (See Below) Other Gastrointestinal History: chronic pancreatitis, LUQ pain, gastric sleeve procedure, hemorrhoids Genitourinary History: Reports: UTI, Recurrent 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 CONTROL ROOM OPERATOR History: c section x3, tubes tied Musculoskeletal History: Reports: Arthritis, Fracture, Other (See Below) Other Musculoskeletal History: left foot fracture, elbow pain, wrist pain, weakness, falls Neurological History: Reports: TIA, Other (See Below) Other Neuro History: pseudotumor, shunt, benign pineal brain tumor, memory loss , seizure disorder, vertigo, brain surgery x 16 Psychiatric History: Reports: Addiction, Anxiety, Depression Endocrine/Metabolic History: Reports: [place]'s Disease, Hypothyroidism, Obesity /BMI 30+, Vitamin D Deficiency Other Endocrine/Metabolic History: hyperthyroidism, hypothyroidism, hashimotos, secondary adrenal insufficiency Hematologic History: Reports: Anemia, Other (See Below) Other Hematologic History: anti TPO antibody Immunologic History: Reports: None Oncologic (Cancer) History: Reports: None Dermatologic History: Reports: Cellulitis - Infectious Disease History Infectious Disease History: Reports: C-Difficile, MRSA Other Infectious Disease History: in 2006, 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 dental extraction Cardiovascular Surgical History: Reports: None Respiratory Surgical History: Reports: None GI Surgical History: Reports: Appendectomy, Bariatric Procedure, Cholecystectomy , Colonoscopy, EGD, ERCP Other GI Surgeries/Procedures: EUS Female Surgical History: Reports: Section, Tubal Ligation Other Female Surgeries/Procedures: C-SECTIONS X3 Endocrine Surgical History: Reports: None Neurological Surgical History: 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 (See Below) Other Neurological Surgeries/Procedures: brain tumor removal Musculoskeletal Surgical History: Reports: None Other Oncologic Surgeries/Procedures: Brain tumor removal Dermatological Surgical History: Reports: None Social & Family History - Family History Family Medical History: Noncontributory Cardiac: Reports: Bypass, Hypertension, [place] Respiratory: Reports: Asthma Oncologic: Reports: Colon - Tobacco Use Smoking Status *Q: Never Smoker Second Hand Smoke Exposure: No - Caffeine Use Caffeine Use: Reports: Coffee Other Caffeine Use: 1 cup daily - Recreational Drug Use Recreational Drug Use: No - Living Situation & Occupation Living situation: Reports: , with Spouse Occupation: Unemployed ED ROS GENERAL - Review of Systems Review Of Systems: See Below Constitutional: Reports: No Symptoms HEENT: Reports: No Symptoms Respiratory: Reports: No Symptoms Cardiovascular: Reports: No Symptoms Endocrine: Reports: No Symptoms GI/Abdominal: Reports: Abdominal Pain, Nausea. Denies: Diarrhea, Vomiting : Reports: No Symptoms Musculoskeletal: Reports: No Symptoms ED EXAM, GI/ABD - Physical Exam Exam: See Below Exam Limited By: No Limitations General Appearance: Alert, No Apparent Distress Ears: Normal External Exam Nose: Normal Inspection Head: Atraumatic, Normocephalic Neck: Normal Inspection Respiratory/Chest: No Respiratory Distress, Lungs Clear, Normal Breath Sounds Cardiovascular: Regular Rate, Rhythm, No Edema, No Murmur GI/Abdominal Exam: Soft, No Organomegaly, No Mass, Tender (Moderate tenderness to the left upper abdomen) Course - Vital Signs Last Recorded V/S: Last Vital Signs Temp 96.5 F 07/31/19 08:19 Pulse 108 H 07/31/19 08:19 Resp 16 07/31/19 08:19 BP 120/109 H 07/31/19 08:19 Pulse Ox 97 07/31/19 08:19 - Orders/Labs/Meds Labs: Laboratory Tests 07/31/19 07/31/19 07/31/19 Range/Units 09:01 09:01 09:50 WBC 10.76 H (3.98-10.04) K/mm3 RBC 4.47 (3.98-5.22) M/mm3 Hgb 14.0 (11.2-15.7) gm/L Hct 42.7 (34.1-44.9) % MCV 95.5 H (79.4-94.8) fl MCH 31.3 (25.6-32.2) pg MCHC 32.8 (32.2-35.5) g/dl RDW Std Deviation 46.7 H (36.4-46.3) fL Plt Count 239 (182-369) K/mm3 MPV 9.7 (9.4-12.3) fl Neut % (Auto) 59.9 (34.0-71.1) % Lymph % (Auto) 26.7 (19.3-51.7) % [place] % (Auto) 12.0 (4.7-12.5) % Eos % (Auto) 0.8 (0.7-5.8) Baso % (Auto) 0.3 (0.1-1.2) % Neut # (Auto) 6.45 H (1.56-6.13) K/mm3 Lymph # (Auto) 2.87 (1.18-3.74) K/mm3 [place] # (Auto) 1.29 H (0.24-0.36) K/mm3 Eos # (Auto) 0.09 (0.04-0.36) K/mm3 Baso # (Auto) 0.03 (0.01-0.08) K/mm3 Manual Slide Review Normal smear Sodium 140 (136-145) mEq/L Potassium 3.6 (3.5-5.1) mEq/L Chloride 104 (98-107) mEq/L Carbon Dioxide 26 (21-32) mEq/L Anion Gap 13.6 (5-15) BUN 8 (7-18) mg/dL Creatinine 1.1 H (0.55-1.02) mg/dL Est Cr Clr Drug Dosing 70.58 mL/min Estimated GFR (MDRD) 54 (>60) mL/min BUN/Creatinine Ratio 7.3 L (14-18) Glucose 84 (74-106) mg/dL Calcium 9.2 (8.5-10.1) mg/dL Total Bilirubin 0.2 (0.2-1.0) mg/dL AST 12 L (15-37) U/L ALT 14 (14-59) U/L Alkaline Phosphatase 64 (46-116) U/L Total Protein 8.0 (6.4-8.2) g/dl Albumin 4.0 (3.4-5.0) g/dl Globulin 4.0 gm/dL Albumin/Globulin Ratio 1.0 (1-2) Lipase 241 (73-393) U/L Urine Color Yellow (Yellow) Urine Appearance Cloudy H (Clear) Urine pH 8.5 H (5.0-8.0) Ur Specific [place] 1.025 (1.005-1.030) Urine Protein 1+ H (Negative) Urine Glucose (UA) Negative (Negative) Urine Ketones Negative (Negative) Urine Occult Blood 3+ H (Negative) Urine Nitrite Negative (Negative) Urine Bilirubin Negative (Negative) Urine Urobilinogen 0.2 (0.2-1.0) Ur Leukocyte Esterase Trace H (Negative) Urine RBC 5-10 H (0-5) /hpf Urine WBC 10-20 H (0-5) /hpf Ur Epithelial Cells 10-20 H (0-5) /hpf Urine Bacteria Moderate H (FEW) /hpf Urine Mucus Few (FEW) /hpf Meds: Medications Discontinued Medications Generic Name Dose Route Start Last Admin Trade Name Freq PRN Reason Stop Dose Admin Hydromorphone HCl 1 mg 07/31/19 08:47 07/31/19 09:07 Dilaudid IM 07/31/19 08:48 1 mg ONETIME ONE Administration Promethazine HCl 25 mg 07/31/19 08:48 07/31/19 09:05 Phenergan IM 07/31/19 08:49 25 mg ONETIME ONE Administration - Re-Assessments/Exams Free Text/Narrative Re-Assessment/Exam: 07/31/19 08:52 I ordered labs and dilaudid 1mg IM and phenergan 25mg IM. 07/31/19 10:56 Her WBC was slightly elevated at 10.76. Her creatinine is slightly elevated at 1.1. Her UA shows no UTI. It appears to be contaminated. I will discharge her home. 07/31/19 10:57 Her lipase was normal. Departure - Departure Time of Disposition: 11:00 Disposition: Home, Self-Care 01 Condition: Good Clinical Impression: Abdominal pain Qualifiers: Abdominal location: left upper quadrant Qualified Code(s): R10.12 - Left upper quadrant pain - Discharge Information *PRESCRIPTION DRUG MONITORING PROGRAM REVIEWED*: No *COPY OF PRESCRIPTION DRUG MONITORING REPORT IN PATIENT ALE: No Referrals: Farzaneh Smith MD [Primary Care Provider] - 1 Week Forms: ED Department Discharge Additional Instructions: Take your medication as prescribed. Please return if you are worse. Follow up with your doctors as scheduled.
== END 2019-07-31 11:10 | disposition home or self-care (01) ==
LOC: JD.ED 08:11
DX: R10.12 Left upper quadrant pain (principal); I10 Essential (primary) hypertension; F41.9 Anxiety disorder, unspecified; F32.9 Major depressive disorder, single episode, unspecified; E03.9 Hypothyroidism, unspecified; M19.90 Unspecified osteoarthritis, unspecified site; E66.9 Obesity, unspecified; Z68.24 Body mass index [BMI] 24.0-24.9, adult; Z86.2 Personal history of diseases of the blood and blood-forming organs and certain disorders involving the immune mechanism; Z88.8 Allergy status to other drugs, medicaments and biological substances; Z88.5 Allergy status to narcotic agent; Z79.899 Other long term (current) drug therapy
CPT/HCPCS: 36415; 80053; 81001; 83690; 85025; 96372; 99284; J1170; J2550; 99283

== ENCOUNTER 2019-08-14 10:46 | Emergency (ER) | payer BC, MEDICARE ==
[2019-08-14 10:58] VITALS: PULSE 91
--- NOTE | 2019-08-14 11:06 | EDM.PDOC ---
ED HPI GENERAL MEDICAL PROBLEM - General Chief Complaint: Abdominal Pain Stated Complaint: ABD PAIN Time Seen by Provider: 08/14/19 11:03 Source of Information: Reports: Patient, Old Records, RN Notes Reviewed History Limitations: Reports: No Limitations - History of Present Illness INITIAL COMMENTS - FREE TEXT/NARRATIVE: Patient is a 43-year-old female who presents to the ED for the evaluation of left upper abdominal pain. The patient is very well-known to this ER for pancreatitis and Eugene's flares. She comes to the ER today mainly for pain control, and she states the pain is not different from her normal pain, just has worsened. She did take some Benadryl prior to arrival to the ED for pain relief, however this does not seem to help much today. She does note some increased nausea and vomiting and diarrhea, with 4 episodes of diarrhea this morning. She denies any dizziness or lightheadedness with standing. She is not having any chest pain or shortness of breath. Patient is going to see her specialist in [place] on Thursday and just did not think she could make it until then due to the pain. abdominal Pain Score (Numeric/FACES): 8 - Related Data Allergies Allergy/AdvReac Type Severity Reaction Status Date / Time buprenorphine [From Butrans] Allergy Itching Verified 08/14/19 10:59 metoclopramide HCl Allergy Itching Verified 08/14/19 10:59 [From Reglan] ketorolac [From Toradol] AdvReac Bleeding Verified 08/14/19 10:59 NSAIDS (Non-Steroidal AdvReac Abdominal Verified 08/14/19 10:59 Anti-Inflamma Pain prochlorperazine AdvReac Vomiting Verified 08/14/19 10:59 [From Compazine] Home Meds: Home Meds Mirtazapine 30 mg PO BEDTIME 03/14/19 [History] Pantoprazole Sodium [Protonix] 40 mg PO BID 03/14/19 [History] Prazosin HCl [Prazosin] 5 mg PO BEDTIME 03/14/19 [History] Vortioxetine Hydrobromide [Trintellix] 10 mg PO DAILY 03/14/19 [History] ALPRAZolam [Alprazolam] 0.5 mg PO BID 05/15/19 [History] Ferrous Sulfate [Iron] 650 mg PO BID 05/15/19 [History] Levothyroxine [Synthroid] 125 mcg PO DAILY 05/15/19 [History] QUEtiapine Fumarate [Quetiapine Fumarate] 75 mg PO BEDTIME 05/15/19 [History] Hydrocortisone 20 mg PO BID 05/16/19 [History] Cholecalciferol (Vitamin D3) [Vitamin D3] 1 tab PO DAILY 06/28/19 [History] Zolpidem [Ambien] 10 mg PO BEDTIME 08/14/19 [History] Past Medical History - Past Health History Medical/Surgical History: Denies Medical/Surgical History HEENT History: Reports: Glaucoma, Otitis Media Cardiovascular History: Reports: Hypertension Other Cardiovascular History: tachycardia Respiratory History: Reports: None Gastrointestinal History: Reports: Chronic Constipation, Hemorrhoids, Pancreatitis, Other (See Below) Other Gastrointestinal History: chronic pancreatitis, LUQ pain, gastric sleeve procedure, hemorrhoids Genitourinary History: Reports: UTI, Recurrent MERCHANDISE MARKER History: 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 MERCHANDISE MARKER History: c section x3, tubes tied Musculoskeletal History: Reports: Arthritis, Fracture, Other (See Below) Other Musculoskeletal History: left foot fracture, elbow pain, wrist pain, weakness, falls Neurological History: Reports: TIA, Other (See Below) Other Neuro History: pseudotumor, shunt, benign pineal brain tumor, memory loss , seizure disorder, vertigo, brain surgery x 16 Psychiatric History: Reports: Addiction, Anxiety, Depression Endocrine/Metabolic History: Reports: [place]'s Disease, Hypothyroidism, Obesity /BMI 30+, Vitamin D Deficiency Other Endocrine/Metabolic History: hyperthyroidism, hypothyroidism, hashimotos, secondary adrenal insufficiency Hematologic History: Reports: Anemia, Other (See Below) Other Hematologic History: anti TPO antibody Immunologic History: Reports: None Oncologic (Cancer) History: Reports: None Dermatologic History: Reports: Cellulitis - Infectious Disease History Infectious Disease History: Reports: C-Difficile, MRSA Other Infectious Disease History: in 2006, 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." - Past Surgical History Head Surgeries/Procedures: Reports: Shunt HEENT Surgical History: Reports: Oral Surgery Other HEENT Surgeries/Procedures: [place] teeth removal. dental extraction Cardiovascular Surgical History: Reports: None Respiratory Surgical History: Reports: None GI Surgical History: Reports: Appendectomy, Bariatric Procedure, Cholecystectomy , Colonoscopy, EGD, ERCP Other GI Surgeries/Procedures: EUS Female Surgical History: Reports: Section, Tubal Ligation Other Female Surgeries/Procedures: C-SECTIONS X3 Endocrine Surgical History: Reports: None Neurological Surgical History: 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 (See Below) Other Neurological Surgeries/Procedures: brain tumor removal Musculoskeletal Surgical History: Reports: None Other Oncologic Surgeries/Procedures: Brain tumor removal Dermatological Surgical History: Reports: None Social & Family History - Family History Family Medical History: Noncontributory Cardiac: Reports: Bypass, Hypertension, [place] Respiratory: Reports: Asthma Oncologic: Reports: Colon - Tobacco Use Smoking Status *Q: Never Smoker Second Hand Smoke Exposure: No - Caffeine Use Caffeine Use: Reports: None Other Caffeine Use: 1 cup daily - Recreational Drug Use Recreational Drug Use: No - Living Situation & Occupation Living situation: Reports: , with Spouse Occupation: Unemployed ED ROS GENERAL - Review of Systems Review Of Systems: See Below Constitutional: Denies: Fever, Chills HEENT: Reports: No Symptoms Respiratory: Denies: Shortness of Breath Cardiovascular: Denies: Chest Pain Endocrine: Reports: No Symptoms GI/Abdominal: Reports: Abdominal Pain (LUQ), Diarrhea, Nausea, Vomiting : Reports: No Symptoms Musculoskeletal: Reports: No Symptoms Skin: Reports: No Symptoms Neurological: Reports: No Symptoms Psychiatric: Reports: No Symptoms ED EXAM, GI/ABD - Physical Exam Exam: See Below Exam Limited By: No Limitations General Appearance: Alert, WD/WN, No Apparent Distress Eyes: Bilateral: Normal Appearance Throat/Mouth: Normal Inspection, Normal Lips, Normal Teeth, Normal Gums, Normal Oropharynx, Normal Voice, No Airway Compromise Respiratory/Chest: No Respiratory Distress, Lungs Clear, Normal Breath Sounds, No Accessory Muscle Use, Chest Non-Tender Cardiovascular: Normal Peripheral Pulses, Regular Rate, Rhythm, No Murmur GI/Abdominal Exam: Normal Bowel Sounds, Soft, No Distention, No Mass, Tender ( LUQ mainly) Extremities: Normal Inspection, Normal Capillary Refill Neurological: Alert, Oriented, Normal Cognition, No Motor/Sensory Deficits Psychiatric: Normal Affect, Normal Mood Skin Exam: Warm, Dry, Intact, Normal Color, No Rash Course - Vital Signs Last Recorded V/S: Last Vital Signs Temp 97.1 F 08/14/19 10:56 Pulse 91 08/14/19 10:56 Resp 19 08/14/19 10:56 BP 147/90 H 08/14/19 10:56 Pulse Ox 99 08/14/19 10:56 - Orders/Labs/Meds Meds: Medications Discontinued Medications Generic Name Dose Route Start Last Admin Trade Name Dominic PRN Reason Stop Dose Admin Hydromorphone HCl 1 mg 08/14/19 11:13 Dilaudid IM 08/14/19 11:14 ONETIME ONE Promethazine HCl 37.5 mg 08/14/19 11:13 Phenergan IM 08/14/19 11:14 ONETIME ONE - Re-Assessments/Exams Free Text/Narrative Re-Assessment/Exam: 08/14/19 11:28 Patient presents to the ED for evaluation of pain control of her chronic left upper quadrant pain. I did order 1 mg IM Dilaudid and 37.5 mg of IM Phenergan for management in the ER, and I will provide her with a few tablets of pain medication and Phenergan for outpatient use, so she might be able to get to her appointment on Thursday. Departure - Departure Time of Disposition: 11:20 Disposition: Home, Self-Care 01 Condition: Fair Clinical Impression: Chronic LUQ pain - Discharge Information *PRESCRIPTION DRUG MONITORING PROGRAM REVIEWED*: Yes *COPY OF PRESCRIPTION DRUG MONITORING REPORT IN PATIENT ALE: No Instructions: Abdominal Pain, Adult, [id number] Referrals: Farzaneh Smith MD [Primary Care Provider] - Forms: ED Department Discharge Additional Instructions: You were evaluated in the ED today for your chronic left upper abdominal pain. No labs were done at today's visit, as these were refused. You were given IM injections of pain medication and nausea medications in the ER for management of pain relief. You were given a prescription for some tablets of pain medication and some antinausea medication, this is enough hopefully to get you through until you can see your specialist on Thursday in [place]. Please keep this appointment as previously scheduled so you might get a better plan in place for your chronic pain control. Recommend that you stick to a clear liquid or bland diet for the next day or 2 to try to alleviate the symptoms of your diarrhea. Please also try to keep yourself well-hydrated. Please return to the ED if your symptoms change or worsen
[2019-08-14] MEDS ORDERED: HYDROmorphone 1 MG/ML Syringe IM ONE (11:13)
[2019-08-14] MEDS ORDERED: Promethazine 25 MG/ML SDV IM ONE (11:13)
[2019-08-14 11:43] VITALS: BP 126/88
== END 2019-08-14 11:41 | disposition home or self-care (01) ==
LOC: JD.ED 10:46
DX: R10.32 Left lower quadrant pain (principal); G89.29 Other chronic pain; I10 Essential (primary) hypertension; F41.9 Anxiety disorder, unspecified; F32.9 Major depressive disorder, single episode, unspecified; E03.9 Hypothyroidism, unspecified; Z86.73 Personal history of transient ischemic attack (TIA), and cerebral infarction without residual deficits; E66.9 Obesity, unspecified; Z68.43 Body mass index [BMI] 50.0-59.9, adult; Z88.6 Allergy status to analgesic agent; Z88.8 Allergy status to other drugs, medicaments and biological substances; Z79.890 Hormone replacement therapy; Z79.899 Other long term (current) drug therapy
CPT/HCPCS: 96372; 99283; J1170; J2550

== ENCOUNTER 2019-08-21 18:29 | Emergency (ER) | payer BC, MEDICARE ==
[2019-08-21 18:52] VITALS: BP 152/112; PULSE 101
[2019-08-21] MEDS ORDERED: FLU Vacc QS2019-20(6MOS+)/PF 60 MCG/0.5 ML SYRINGE IM ONE (19:00)
[2019-08-21] MEDS ORDERED: HYDROmorphone 1 MG/ML Syringe IM ONE (19:32)
[2019-08-21] MEDS ORDERED: Promethazine 25 MG/ML SDV IM ONE (19:33)
--- NOTE | 2019-08-21 19:39 | EDM.PDOC ---
ED HPI GENERAL MEDICAL PROBLEM - General Chief Complaint: Abdominal Pain Stated Complaint: abdominal pain Time Seen by Provider: 08/21/19 18:50 Source of Information: Reports: Patient - History of Present Illness INITIAL COMMENTS - FREE TEXT/NARRATIVE: 43-year-old female presents emergency room with worsening pain from her pancreatitis chronic. The patient is been seen by [facility] and has been diagnosed with pancreatitis we have not been able to find his labs past. She is also having some endocrine anomalies resembling sushant disease the patient is doing much better these days seems she's not on any opioid routine medications anymore her pain has been getting worse over the last several days she has not had fevers or chills she has some nausea usual vomiting and multiple loose stools she scheduled to start Creon in the very near future. Left Abdomen Pain Score (Numeric/FACES): 9 - Related Data Allergies Allergy/AdvReac Type Severity Reaction Status Date / Time buprenorphine [From Butrans] Allergy Itching Verified 08/14/19 10:59 metoclopramide HCl Allergy Itching Verified 08/14/19 10:59 [From Reglan] ketorolac [From Toradol] AdvReac Bleeding Verified 08/14/19 10:59 NSAIDS (Non-Steroidal AdvReac Abdominal Verified 08/14/19 10:59 Anti-Inflamma Pain prochlorperazine AdvReac Vomiting Verified 08/14/19 10:59 [From Compazine] Home Meds: Home Meds Mirtazapine 30 mg PO BEDTIME 03/14/19 [History] Pantoprazole Sodium [Protonix] 40 mg PO BID 03/14/19 [History] Prazosin HCl [Prazosin] 5 mg PO BEDTIME 03/14/19 [History] Vortioxetine [Trintellix] 10 mg PO DAILY 03/14/19 [History] ALPRAZolam [Alprazolam] 0.5 mg PO BID 05/15/19 [History] Ferrous Sulfate [Iron] 650 mg PO BID 05/15/19 [History] Levothyroxine [Synthroid] 125 mcg PO DAILY 05/15/19 [History] QUEtiapine Fumarate [Quetiapine Fumarate] 75 mg PO BEDTIME 05/15/19 [History] Hydrocortisone 20 mg PO BID 05/16/19 [History] Cholecalciferol (Vitamin D3) [Vitamin D3] 1 tab PO DAILY 06/28/19 [History] Zolpidem [Ambien] 10 mg PO BEDTIME 08/14/19 [History] Amylase/Lipase/Protease [Ayo DR 24,000 Unit] 24,000 mg PO ASDIRECTED 08/21/19 [History] Past Medical History - Past Health History Medical/Surgical History: Denies Medical/Surgical History HEENT History: Reports: Glaucoma, Otitis Media Cardiovascular History: Reports: Hypertension Other Cardiovascular History: tachycardia Respiratory History: Reports: None Gastrointestinal History: Reports: Chronic Constipation, Hemorrhoids, Pancreatitis, Other (See Below) Other Gastrointestinal History: chronic pancreatitis, LUQ pain, gastric sleeve procedure, hemorrhoids Genitourinary History: Reports: UTI, Recurrent BAREBACK RIDER History: 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 BAREBACK RIDER History: c section x3, tubes tied Musculoskeletal History: Reports: Arthritis, Fracture, Other (See Below) Other Musculoskeletal History: left foot fracture, elbow pain, wrist pain, weakness, falls Neurological History: Reports: TIA, Other (See Below) Other Neuro History: pseudotumor, shunt, benign pineal brain tumor, memory loss , seizure disorder, vertigo, brain surgery x 16 Psychiatric History: Reports: Addiction, Anxiety, Depression Endocrine/Metabolic History: 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, Hypothyroidism, Obesity /BMI 30+, Vitamin D Deficiency Other Endocrine/Metabolic History: hyperthyroidism, hypothyroidism, hashimotos, secondary adrenal insufficiency Hematologic History: Reports: Anemia, Other (See Below) Other Hematologic History: anti TPO antibody Immunologic History: Reports: None Oncologic (Cancer) History: Reports: None Dermatologic History: Reports: Cellulitis - Infectious Disease History Infectious Disease History: Reports: C-Difficile, MRSA Other Infectious Disease History: in 2006, 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." - Past Surgical History Head Surgeries/Procedures: Reports: Shunt HEENT Surgical History: Reports: Oral Surgery Other HEENT Surgeries/Procedures: [place] teeth removal. dental extraction Cardiovascular Surgical History: Reports: None Respiratory Surgical History: Reports: None GI Surgical History: Reports: Appendectomy, Bariatric Procedure, Cholecystectomy , Colonoscopy, EGD, ERCP Other GI Surgeries/Procedures: EUS Female Surgical History: Reports: Section, Tubal Ligation Other Female Surgeries/Procedures: C-SECTIONS X3 Endocrine Surgical History: Reports: None Neurological Surgical History: 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 (See Below) Other Neurological Surgeries/Procedures: brain tumor removal Musculoskeletal Surgical History: Reports: None Other Oncologic Surgeries/Procedures: Brain tumor removal Dermatological Surgical History: Reports: None Social & Family History - Family History Family Medical History: Noncontributory Cardiac: Reports: Bypass, Hypertension, [place] Respiratory: Reports: Asthma Oncologic: Reports: Colon - Tobacco Use Smoking Status *Q: Never Smoker - Caffeine Use Caffeine Use: Reports: Coffee Other Caffeine Use: 1 cup daily - Recreational Drug Use Recreational Drug Use: No - Living Situation & Occupation Living situation: Reports: , with Spouse Occupation: Unemployed ED ROS GENERAL - Review of Systems Review Of Systems: See Below Constitutional: Reports: No Symptoms HEENT: Reports: No Symptoms Respiratory: Reports: No Symptoms Cardiovascular: Reports: No Symptoms GI/Abdominal: Reports: Abdominal Pain, Diarrhea, Nausea, Vomiting. Denies: Constipation Musculoskeletal: Reports: No Symptoms. Denies: Neck Pain, Shoulder Pain, Leg Pain Skin: Reports: No Symptoms Neurological: Reports: No Symptoms Psychiatric: Reports: No Symptoms Hematologic/Lymphatic: Reports: No Symptoms Immunologic: Reports: No Symptoms ED EXAM, GI/ABD - Physical Exam Exam: See Below Exam Limited By: No Limitations General Appearance: Alert, No Apparent Distress Head: Atraumatic, Normocephalic Neck: Normal Inspection, Supple, Non-Tender, Full Range of Motion Respiratory/Chest: No Respiratory Distress, Lungs Clear, Normal Breath Sounds Cardiovascular: Regular Rate, Rhythm, No Edema, No Murmur GI/Abdominal Exam: Normal Bowel Sounds, Soft, Other (Mostly midepigastric discomfort no rigidity rebound or guarding noted) Back Exam: Normal Inspection. No: CVA Tenderness (L), CVA Tenderness (R) Extremities: Normal Inspection, Normal Range of Motion, Non-Tender Neurological: Alert, Oriented Psychiatric: Normal Affect, Normal Mood Skin Exam: Warm, Dry, Intact Course - Vital Signs Last Recorded V/S: Last Vital Signs Temp 36.4 C 08/21/19 18:50 Pulse 101 H 08/21/19 18:50 Resp 20 08/21/19 18:50 BP 152/112 H 08/21/19 18:50 Pulse Ox 98 08/21/19 18:50 - Orders/Labs/Meds Orders: Active Orders 24 hr Category Date Time Status Influenza Vaccine Charge [RC] .DISCHARGE Care 08/21/19 18:49 Active Meds: Medications Discontinued Medications Generic Name Dose Route Start Last Admin Trade Name Freq PRN Reason Stop Dose Admin Hydromorphone HCl 1 mg 08/21/19 19:32 08/21/19 20:15 Dilaudid IM 08/21/19 19:33 1 mg ONETIME ONE Administration Influenza Virus Vaccine 1 each 08/21/19 18:48 Pharmacy To Dose - Influenza Vaccine IM 08/21/19 18:49 ONETIME ONE Influenza Virus Vaccine 60 mcg 08/21/19 19:00 08/21/19 20:13 Fluzone Quad Syringe IM 08/21/19 19:01 60 mcg .ONCE ONE Administration Promethazine HCl 37.5 mg 08/21/19 19:33 08/21/19 20:14 Phenergan IM 08/21/19 19:34 37.5 mg ONETIME ONE Administration - Re-Assessments/Exams Free Text/Narrative Re-Assessment/Exam: 08/21/19 19:39 When this patient has flares recently she's benefited from a single injection of Dilaudid 1 mg and Phenergan 37.5 mg IM. We'll try this. I reviewed her medication list in detail she uses acetaminophen 500 mg as needed alprazolam 0.5 mg twice a day Creon Benadryl 50 mg as needed up to 4 times a day hydrocortisone for her adrenal insufficiency level thyroxine for hypothyroidism presence and 5 mg daily. Trintellix. Zantac 150 mg twice daily. Ambien 10 mg by mouth at bedtime he denies any other medications and is not on any opioids this point 08/21/19 21:23 Patient is doing much better after the 1 mg of Dilaudid 37.5 mg of Phenergan both IM she wants to go home Departure - Departure Time of Disposition: 21:23 Disposition: Home, Self-Care 01 Condition: Good Clinical Impression: Upper abdominal pain, History of chronic pancreatitis - Discharge Information Referrals: Farzaneh Smith MD [Primary Care Provider] - Forms: ED Department Discharge Additional Instructions: Return to emergency room if any questions problems or worsening symptoms. Follow-up with your regular provider as scheduled. - My Orders Last 24 Hours: My Active Orders 08/21/19 18:49 Influenza Vaccine Charge [RC] .DISCHARGE - Assessment/Plan Last 24 Hours: My Active Orders 08/21/19 18:49 Influenza Vaccine Charge [RC] .DISCHARGE
== END 2019-08-21 21:43 | disposition home or self-care (01) ==
LOC: JD.ED 18:29
DX: R10.13 Epigastric pain (principal); I10 Essential (primary) hypertension; Z87.19 Personal history of other diseases of the digestive system; E03.9 Hypothyroidism, unspecified; Z88.5 Allergy status to narcotic agent; Z88.8 Allergy status to other drugs, medicaments and biological substances; Z88.6 Allergy status to analgesic agent; Z79.899 Other long term (current) drug therapy; Z79.890 Hormone replacement therapy
CPT/HCPCS: 90471; 90686; 96372; 96374; 99283; J1170; J2550; 99284; G0008

== ENCOUNTER 2019-08-23 15:53 | Emergency (ER) | payer BC, MEDICARE ==
[2019-08-23 16:20] VITALS: BP 161/101; PULSE 79
[2019-08-23] MEDS ORDERED: Promethazine 25 MG/ML SDV IM ONE (16:43)
[2019-08-23] MEDS ORDERED: HYDROmorphone 1 MG/ML Syringe IM ONE (16:43)
[2019-08-23] MEDS ORDERED: Hydrocortisone Sodium Succinate 100 MG/2 ML SDV IM ONE (16:44)
--- NOTE | 2019-08-23 16:47 | EDM.PDOC ---
ED HPI GENERAL MEDICAL PROBLEM - General Chief Complaint: Abdominal Pain Stated Complaint: ABDOMINAL PAIN Time Seen by Provider: 08/23/19 16:28 Source of Information: Reports: Patient History Limitations: Reports: No Limitations - History of Present Illness INITIAL COMMENTS - FREE TEXT/NARRATIVE: 43-year-old female presents once again to the ED due to severe left upper quadrant epigastric abdominal pain rating through to her left mid back particularly underneath her shoulder blade. Patient has a history of chronic pancreatitis. This is been confirmed recently by MRI of the abdomen done in [facility]. She has been placed on Creon pancreatic supplements with each meal and before snacks for the next 2 weeks as a trial to see if it makes any improvement in her pain and/or diarrhea. Was supposed to have a Port-A -Cath placed with infusion on a daily basis to provide rehydration and vitamins. If she fails this protocol then the plan would be to proceed with a Whipple's procedure and remove it sounded like the head and main body of her pancreas. She states she has vomited 3 times S4 today bilious emesis no hematemesis. She has had 6 diarrheal stools. Pain is constant and unrelenting. She tries to live with clear fluids such as Gatorade and Powerade. The Creon supplements but they are likely going right through her. The other concern is that she has been diagnosed with Delano's disease and it's unlikely that the current cortisol supplements are staying in as well. Likely going right through her. They may be contributing to her diarrhea. Onset: Other (Current flareup is lasting for the last 5 days.) Onset Date: 08/18/19 Duration: Day(s):, Chronic, Getting Worse, Intermittent Location: Reports: Abdomen (Persistent epigastric left upper quadrant abdominal pain rating through to her back component with chronic pancreatitis. She's had this for at least 3 years.) Quality: Reports: Ache Severity: Severe (Deep aching pain.) Improves with: Reports: None ( 10 out of 10) Worsens with: Reports: None Context: Denies: Activity, Exercise, Lifting, Sick Contact, Trauma Associated Symptoms: Reports: Loss of Appetite, Malaise, Nausea/Vomiting, Other (Diarrhea stools 604 today. A lot of steatorrhea. The Surface of the Toilet Water.). Denies: No Other Symptoms, Confusion, Chest Pain, Cough, cough w sputum, Diaphoresis, Fever/Chills, Headaches, Seizure, Shortness of Breath ( Vomits because of the intensity of the pain.), Syncope Treatments DIRECTOR OF SCOUT WORK: 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 (see below) (Only prescribed Creon medications until X and alprazolam.) Left Abdominal Pain Score (Numeric/FACES): 9 - Related Data Allergies Allergy/AdvReac Type Severity Reaction Status Date / Time buprenorphine [From Butrans] Allergy Itching Verified 08/23/19 16:20 metoclopramide HCl Allergy Itching Verified 08/23/19 16:20 [From Reglan] ketorolac [From Toradol] AdvReac Bleeding Verified 08/23/19 16:20 NSAIDS (Non-Steroidal AdvReac Abdominal Verified 08/23/19 16:20 Anti-Inflamma Pain prochlorperazine AdvReac Vomiting Verified 08/23/19 16:20 [From Compazine] Home Meds: Home Meds Mirtazapine 30 mg PO BEDTIME 03/14/19 [History] Pantoprazole Sodium [Protonix] 40 mg PO BID 03/14/19 [History] Prazosin HCl [Prazosin] 5 mg PO BEDTIME 03/14/19 [History] Vortioxetine [Trintellix] 10 mg PO DAILY 03/14/19 [History] ALPRAZolam [Alprazolam] 0.5 mg PO BID 05/15/19 [History] Ferrous Sulfate [Iron] 650 mg PO BID 05/15/19 [History] Levothyroxine [Synthroid] 125 mcg PO DAILY 05/15/19 [History] QUEtiapine Fumarate [Quetiapine Fumarate] 75 mg PO BEDTIME 05/15/19 [History] Hydrocortisone 20 mg PO BID 05/16/19 [History] Cholecalciferol (Vitamin D3) [Vitamin D3] 1 tab PO DAILY 06/28/19 [History] Zolpidem [Ambien] 10 mg PO BEDTIME 08/14/19 [History] Amylase/Lipase/Protease [Creon DR 24,000 Unit] 24,000 mg PO ASDIRECTED 08/21/19 [History] oxyCODONE HCl/Acetaminophen [Percocet 10-325 mg Tablet] 1 each PO Q4H PRN #30 tablet 08/23/19 [Rx] Past Medical History - Past Health History Medical/Surgical History: Denies Medical/Surgical History HEENT History: Reports: Glaucoma, Otitis Media Cardiovascular History: Reports: Hypertension Other Cardiovascular History: tachycardia Respiratory History: Reports: None Gastrointestinal History: Reports: Chronic Constipation, Hemorrhoids, Pancreatitis, Other (See Below) Other Gastrointestinal History: chronic pancreatitis, LUQ pain, gastric sleeve procedure, hemorrhoids Genitourinary History: Reports: UTI, Recurrent 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: 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: c section x3, tubes tied Musculoskeletal History: Reports: Arthritis, Fracture, Other (See Below) Other Musculoskeletal History: left foot fracture, elbow pain, wrist pain, weakness, falls Neurological History: Reports: TIA, Other (See Below) Other Neuro History: pseudotumor, shunt, benign pineal brain tumor, memory loss , seizure disorder, vertigo, brain surgery x 16 Psychiatric History: Reports: Addiction, Anxiety, Depression Endocrine/Metabolic History: Reports: Delano's Disease, Hypothyroidism, Obesity /BMI 30+, Vitamin D Deficiency Other Endocrine/Metabolic History: hyperthyroidism, hypothyroidism, hashimotos, secondary adrenal insufficiency Hematologic History: Reports: Anemia, Other (See Below) Other Hematologic History: anti TPO antibody Immunologic History: Reports: None Oncologic (Cancer) History: Reports: None Dermatologic History: Reports: Cellulitis - Infectious Disease History Infectious Disease History: Reports: C-Difficile, MRSA Other Infectious Disease History: in 2006, 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." - Past Surgical History Head Surgeries/Procedures: Reports: Shunt HEENT Surgical History: Reports: Oral Surgery Other HEENT Surgeries/Procedures: [place] teeth removal. dental extraction Cardiovascular Surgical History: Reports: None Respiratory Surgical History: Reports: None GI Surgical History: Reports: Appendectomy, Bariatric Procedure, Cholecystectomy , Colonoscopy, EGD, ERCP Other GI Surgeries/Procedures: EUS Female Surgical History: Reports: Section, Tubal Ligation Other Female Surgeries/Procedures: C-SECTIONS X3 Endocrine Surgical History: Reports: None Neurological Surgical History: 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 (See Below) Other Neurological Surgeries/Procedures: brain tumor removal Musculoskeletal Surgical History: Reports: None Other Oncologic Surgeries/Procedures: Brain tumor removal Dermatological Surgical History: Reports: None Social & Family History - Family History Family Medical History: Noncontributory Cardiac: Reports: Bypass, Hypertension, [place] Respiratory: Reports: Asthma Oncologic: Reports: Colon - Tobacco Use Smoking Status *Q: Never Smoker Second Hand Smoke Exposure: No - Caffeine Use Caffeine Use: Reports: None Other Caffeine Use: 1 cup daily - Recreational Drug Use Recreational Drug Use: No - Living Situation & Occupation Living situation: Reports: , with Spouse Occupation: Unemployed ED ROS GENERAL - Review of Systems Review Of Systems: See Below Constitutional: Reports: No Symptoms, Malaise, Weakness, Fatigue, Decreased Appetite, Weight Loss. 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 She is on cortisone supplements daily chronic abdominal pain due to chronic pancreatitis.), Diarrhea, Decreased Appetite (Chronic diarrhea.), Nausea (Intermittent nausea and vomiting of bilious emesis.). Denies: Constipation : Reports: No Symptoms Musculoskeletal: Reports: Joint Pain Skin: Reports: No Symptoms (Knees hips and low back at times.) Neurological: 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 (Has a diagnosis of pseudotumor cerebri but she states she rarely gets a headache anymore. 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 Today vital signs show temperature 36.8. Pulse 79 a sinus respiratory to 14. BP 161/ 101. Pulse ox 97%) Eyes: Bilateral: Normal Appearance (No scleral icterus.) Throat/Mouth: Other (Tongue is mildly coated and dry.) Head: Atraumatic, Normocephalic Neck: Normal Inspection, Supple, Non-Tender, Full Range of Motion. No: Lymphadenopathy (L), Lymphadenopathy (R) Respiratory/Chest: No Respiratory Distress, Lungs Clear, Normal Breath Sounds, Chest Non-Tender Cardiovascular: Normal Peripheral Pulses, Regular Rate, Rhythm, No Edema, No Gallop, No Murmur, No Rub GI/Abdominal Exam: No Distention, No Abnormal Bruit, Distended (She is mildly distended and slightly tympanitic to percussion.), Guarding (Very tender to palpation left upper abdomen and left mid abdomen and epigastrium with guarding but no rebound.), Tender, Abnormal Bowel Sounds (Bowel sounds are very quiet sent at this time.). No: Normal Bowel Sounds, Rigid, Rebound Back Exam: Normal Inspection, Full Range of Motion. No: CVA Tenderness (L), CVA Tenderness (R) Extremities: Normal Inspection, Normal Range of Motion, Non-Tender Neurological: Alert, Oriented, CN II-XII Intact, Normal Cognition Psychiatric: Normal Affect, Normal Mood Skin Exam: Warm, Dry, Intact, Other (Slightly pallid.) Course - Vital Signs Last Recorded V/S: Last Vital Signs Temp 36.8 C 08/23/19 16:15 Pulse 79 08/23/19 16:15 Resp 14 08/23/19 16:15 BP 161/101 H 08/23/19 16:15 Pulse Ox 97 08/23/19 16:15 - Orders/Labs/Meds Meds: Medications Discontinued Medications Generic Name Dose Route Start Last Admin Trade Name Jean-Pierreq PRN Reason Stop Dose Admin Hydrocortisone Sodium Succinate 100 mg 08/23/19 16:44 08/23/19 16:55 Solu-Cortef IM 08/23/19 16:45 100 mg ONETIME ONE Administration Hydromorphone HCl 2 mg 08/23/19 16:43 08/23/19 16:58 Dilaudid IM 08/23/19 16:44 2 mg ONETIME ONE Administration Promethazine HCl 37.5 mg 08/23/19 16:43 08/23/19 16:56 Phenergan IM 08/23/19 17:13 37.5 mg ONETIME ONE Administration - Radiology Interpretation Free Text/Narrative:: 43-year-old female resents to the ED for pain management. Patient has chronic pancreatitis confirmed recently by MRI at [facility]. Patient is disabled from chronic pain syndrome. Her surgeon has placed her on Creon pancreatic supplement with meals and snacks for the next 2 weeks. She is to get a Port-A-Cath placed so we have IV access and that we could infuse fluids to rehydrate her. She'll be going to the infusion clinic at [facility] once the Port-A-Cath is placed. Decision made that if she is not markedly improved with pancreatic supplements that they would proceed with a Whipple's procedure in 2-3 weeks' time. So far she has not gotten any better. She's been on the Creon since last August 19. At present her examination is similar to what I found in the past. Vital labs rarely reveal an elevated lipase any more. Is is characteristic of chronic pancreatitis. Plan will be to give her Dilaudid 2 mg IM with Phenergan 37.5 mg IM. I'm also going to give her hydrocortisone 100 mg IM in case she is not absorbing her's cortisone orally. His would aggravate her Eugene's disease and cause worsening diarrhea. I'm going to send her home with Percocet 10/325 mg tabs 1 tablet every 6 hours as needed for relief of chronic pain. She has Zofran sublingual tablets and Phenergan gel at home. Departure - Departure Time of Disposition: 16:59 Disposition: Home, Self-Care 01 Condition: Fair Clinical Impression: Chronic abdominal pain, Chronic relapsing pancreatitis - Discharge Information *PRESCRIPTION DRUG MONITORING PROGRAM REVIEWED*: No *COPY OF PRESCRIPTION DRUG MONITORING REPORT IN PATIENT ALE: No Prescriptions: oxyCODONE HCl/Acetaminophen [Percocet 10-325 mg Tablet] 1 each PO Q4H PRN #30 tablet PRN Reason: Chronic pancreatitis Instructions: Chronic Pain, Adult Referrals: Farzaneh Smith MD [Primary Care Provider] - Forms: ED Department Discharge Additional Instructions: Evaluation the emergency room today in regards to recurrence of severe left upper quadrant abdominal pain rating to your back with associated nausea vomiting and stay at a rehabilitation diarrhea. This is secondary to chronic pancreatitis flareup. You were treated with 2 mg of Dilaudid IM with Phenergan 37.5 mg IM and hydrocortisone 100 mg IM. Prescription written for Percocet 10/ 325 mg tabs 1 tablet every 4-6 hours necessary for pain relief. The current medications prescribed including pancreatic supplements.
== END 2019-08-23 17:09 | disposition home or self-care (01) ==
LOC: JD.ED 15:53
DX: K86.1 Other chronic pancreatitis (principal); H40.9 Unspecified glaucoma; I10 Essential (primary) hypertension; E03.9 Hypothyroidism, unspecified; F32.9 Major depressive disorder, single episode, unspecified; F41.9 Anxiety disorder, unspecified; M19.90 Unspecified osteoarthritis, unspecified site; E05.90 Thyrotoxicosis, unspecified without thyrotoxic crisis or storm; E66.9 Obesity, unspecified; Z68.35 Body mass index [BMI] 35.0-35.9, adult; Z88.5 Allergy status to narcotic agent; Z88.8 Allergy status to other drugs, medicaments and biological substances; Z88.4 Allergy status to anesthetic agent; Z86.73 Personal history of transient ischemic attack (TIA), and cerebral infarction without residual deficits; Z79.890 Hormone replacement therapy; Z79.899 Other long term (current) drug therapy
CPT/HCPCS: 96372; 99283; J1170; J1720; J2550; 99284

== ENCOUNTER 2019-08-29 09:21 | Emergency (ER) | payer BC, MEDICARE ==
[2019-08-29 09:35] VITALS: BP 184/106; PULSE 83
[2019-08-29] MEDS ORDERED: Hydrocortisone Sodium Succinate 100 MG/2 ML SDV IM ONE (09:39)
[2019-08-29] MEDS ORDERED: Promethazine 25 MG/ML SDV IM ONE (09:40)
[2019-08-29] MEDS ORDERED: HYDROmorphone 1 MG/ML Syringe IVPUSH ONE (09:40)
--- NOTE | 2019-08-29 09:41 | EDM.PDOC ---
ED HPI GENERAL MEDICAL PROBLEM - General Chief Complaint: Abdominal Pain Stated Complaint: ABDOMINAL PAIN Time Seen by Provider: 08/29/19 09:39 Source of Information: Reports: Patient, Family (spouse) History Limitations: Reports: No Limitations - History of Present Illness INITIAL COMMENTS - FREE TEXT/NARRATIVE: 44-year-old female attends the ED with recurrent nausea and vomiting precipitated by left upper quadrant epigastric abdominal pain radiating through to her back characteristic of her chronic relapsing pancreatitis. Patient has been taking fluids but does appear volume depleted. She has very poor IV access. [facility] to have one of the surgeon place a Port-A- Cath for infusion therapy. Emesis is bilious. She has chronic stearrhea almost every time she sits to void she has some steatorrhea stool occult some type of water. No hematemesis. This episode started about 0200 hrs. this morning and she can't get control of the pain or vomiting. She has pain medicine at home but can't keep it down. Also Zofran 4 mg sublingually doesn't seem to keep the nausea at bay. She has presented to the ED on many occasions with similar complaints. We have stopped doing labs as they have not been helpful. Patient is still taking her Creon supplement but it has slow the diarrhea down. Skin a bit of a sore throat which they wonder about. Onset: Today, Other (Chronic relapsing pancreatitis daily. Chronic pain.) Onset Date: 08/29/19 Onset Time: 02:00 Duration: Hour(s):, Getting Worse (Awoke with abdominal pain and then precipitated nausea and vomiting 6 this morning.) Location: Reports: Abdomen (Epigastrium left upper quadrant of the abdomen.) Quality: Reports: Ache, Pressure, Other Severity: Severe (Deep aching constant pain) Improves with: Reports: None Worsens with: Reports: None ( 10 out of 10) Context: 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 (Known to have chronic relapsing pancreatitis.). Denies : Activity, Exercise, Lifting, Sick Contact, Trauma Associated Symptoms: Reports: Loss of Appetite, Malaise, Nausea/Vomiting, Weakness. 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 (see below) (Nothing will stay down.) Left Upper Abdomen Pain Score (Numeric/FACES): 9 - Related Data Allergies Allergy/AdvReac Type Severity Reaction Status Date / Time buprenorphine [From Butrans] Allergy Itching Verified 08/29/19 09:29 metoclopramide HCl Allergy Itching Verified 08/29/19 09:29 [From Reglan] ketorolac [From Toradol] AdvReac Bleeding Verified 08/29/19 09:29 NSAIDS (Non-Steroidal AdvReac Abdominal Verified 08/29/19 09:29 Anti-Inflamma Pain prochlorperazine AdvReac Vomiting Verified 08/29/19 09:29 [From Compazine] Home Meds: Home Meds Mirtazapine 30 mg PO BEDTIME 03/14/19 [History] Pantoprazole Sodium [Protonix] 40 mg PO BID 03/14/19 [History] Prazosin HCl [Prazosin] 5 mg PO BEDTIME 03/14/19 [History] Vortioxetine [Trintellix] 10 mg PO DAILY 03/14/19 [History] ALPRAZolam [Alprazolam] 0.5 mg PO BID PRN 05/15/19 [History] Ferrous Sulfate [Iron] 650 mg PO BID 05/15/19 [History] Levothyroxine [Synthroid] 125 mcg PO DAILY 05/15/19 [History] QUEtiapine Fumarate [Quetiapine Fumarate] 75 mg PO BEDTIME 05/15/19 [History] Hydrocortisone 20 mg PO BID 05/16/19 [History] Cholecalciferol (Vitamin D3) [Vitamin D3] 1 tab PO DAILY 06/28/19 [History] Zolpidem [Ambien] 10 mg PO BEDTIME 08/14/19 [History] Amylase/Lipase/Protease [Creon DR 24,000 Unit] 24,000 mg PO ASDIRECTED 08/21/19 [History] oxyCODONE HCl/Acetaminophen [Percocet 10-325 mg Tablet] 1 each PO Q4H PRN #30 tablet 08/23/19 [Rx] oxyCODONE HCl/Acetaminophen [Percocet 10-325 mg Tablet] 1 each PO Q4H #20 tablet 08/29/19 [Rx] Past Medical History - Past Health History Medical/Surgical History: Denies Medical/Surgical History HEENT History: Reports: Glaucoma, Otitis Media Cardiovascular History: Reports: Hypertension Other Cardiovascular History: tachycardia Respiratory History: Reports: None Gastrointestinal History: Reports: Chronic Constipation, Hemorrhoids, Pancreatitis, Other (See Below) Other Gastrointestinal History: chronic pancreatitis, LUQ pain, gastric sleeve procedure, hemorrhoids Genitourinary History: Reports: UTI, Recurrent 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 RELATIONS 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 History: 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 DONOR RELATIONS COORDINATOR History: c section x3, tubes tied Musculoskeletal History: Reports: Arthritis, Fracture, Other (See Below) Other Musculoskeletal History: left foot fracture, elbow pain, wrist pain, weakness, falls Neurological History: Reports: TIA, Other (See Below) Other Neuro History: pseudotumor, shunt, benign pineal brain tumor, memory loss , seizure disorder, vertigo, brain surgery x 16 Psychiatric History: Reports: Addiction, Anxiety, Depression Endocrine/Metabolic History: 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, Hypothyroidism, Obesity /BMI 30+, Vitamin D Deficiency Other Endocrine/Metabolic History: hyperthyroidism, hypothyroidism, hashimotos, secondary adrenal insufficiency Hematologic History: Reports: Anemia, Other (See Below) Other Hematologic History: anti TPO antibody Immunologic History: Reports: None Oncologic (Cancer) History: Reports: None Dermatologic History: Reports: Cellulitis - Infectious Disease History Infectious Disease History: Reports: C-Difficile, MRSA Other Infectious Disease History: in 2006, 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." - Past Surgical History Head Surgeries/Procedures: Reports: Shunt HEENT Surgical History: Reports: Oral Surgery Other HEENT Surgeries/Procedures: [place] teeth removal. dental extraction Cardiovascular Surgical History: Reports: None Respiratory Surgical History: Reports: None GI Surgical History: Reports: Appendectomy, Bariatric Procedure, Cholecystectomy , Colonoscopy, EGD, ERCP Other GI Surgeries/Procedures: EUS Female Surgical History: Reports: Section, Tubal Ligation Other Female Surgeries/Procedures: C-SECTIONS X3 Endocrine Surgical History: Reports: None Neurological Surgical History: 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 (See Below) Other Neurological Surgeries/Procedures: brain tumor removal Musculoskeletal Surgical History: Reports: None Other Oncologic Surgeries/Procedures: Brain tumor removal Dermatological Surgical History: Reports: None Social & Family History - Family History Family Medical History: Noncontributory Cardiac: Reports: Bypass, Hypertension, [place] Respiratory: Reports: Asthma Oncologic: Reports: Colon - Caffeine Use Caffeine Use: Reports: None Other Caffeine Use: 1 cup daily - Living Situation & Occupation Living situation: Reports: , with Spouse Occupation: Unemployed ED ROS GENERAL - Review of Systems Review Of Systems: See Below Constitutional: Reports: Chills, Malaise, Weakness, Fatigue. Denies: Fever, Weight Loss HEENT: Reports: No Symptoms Respiratory: Reports: No Symptoms Cardiovascular: Reports: No Symptoms Endocrine: Reports: Fatigue GI/Abdominal: Reports: Abdominal Pain, Diarrhea (Chronic steatorrhea from malabsorption), Nausea, Vomiting (bilious emesis.) : Reports: No Symptoms Musculoskeletal: Reports: No Symptoms Skin: Reports: No Symptoms Neurological: Reports: No Symptoms Psychiatric: Reports: No Symptoms Hematologic/Lymphatic: Reports: No Symptoms Immunologic: Reports: No Symptoms ED EXAM, GI/ABD - Physical Exam Exam: See Below Exam Limited By: No Limitations General Appearance: Alert, WD/WN, Mild Distress Eyes: Bilateral: Normal Appearance (No sclerae icterus.) Throat/Mouth: Other Head: Atraumatic, Normocephalic (Tongue is dry and coated) Neck: Normal Inspection, Supple, Non-Tender, Full Range of Motion Respiratory/Chest: No Respiratory Distress, Lungs Clear, Normal Breath Sounds, No Accessory Muscle Use Cardiovascular: Normal Peripheral Pulses, Regular Rate, Rhythm, No Edema, No Gallop, No Murmur, No Rub GI/Abdominal Exam: Soft, No Organomegaly, No Abnormal Bruit, No Mass, Pelvis Stable, Guarding, Tender, Abnormal Bowel Sounds (Also holds a fairly quiet sent in all 4 quadrants.). No: Rigid (Very tender palpation left upper quadrant and epigastrium with guarding.), Rebound Back Exam: Normal Inspection, Full Range of Motion. No: CVA Tenderness (L) Extremities: Normal Inspection, Normal Range of Motion, Non-Tender Neurological: Alert, Oriented, CN II-XII Intact, Normal Cognition Psychiatric: Normal Affect, Normal Mood Skin Exam: Warm, Dry, Intact, Normal Color, No Rash Course - Vital Signs Last Recorded V/S: Last Vital Signs Temp 36.6 C 08/29/19 09:25 Pulse 83 08/29/19 09:25 Resp 18 08/29/19 09:25 BP 184/106 H 08/29/19 09:25 Pulse Ox 97 08/29/19 09:25 - Orders/Labs/Meds Meds: Medications Discontinued Medications Generic Name Dose Route Start Last Admin Trade Name Freq PRN Reason Stop Dose Admin Hydrocortisone Sodium Succinate 100 mg 08/29/19 09:39 08/29/19 09:53 Solu-Cortef IM 08/29/19 09:40 100 mg ONETIME ONE Administration Hydromorphone HCl 2 mg 08/29/19 09:40 08/29/19 09:46 Dilaudid IVPUSH 08/29/19 09:41 Not Given ONETIME ONE Hydromorphone HCl 2 mg 08/29/19 09:46 08/29/19 09:55 Dilaudid IM 08/29/19 09:47 2 mg ONETIME ONE Administration Promethazine HCl 37.5 mg 08/29/19 09:40 08/29/19 09:54 Phenergan IM 08/29/19 09:41 37.5 mg ONETIME ONE Administration - Radiology Interpretation Free Text/Narrative:: 44-year-old female presents to the ED once again with her chronic left upper quadrant abdominal pain rating to to her back compatible with chronic relapsing pancreatitis. She is taking Creon supplements which do not seem to be beneficial. She is having diarrhea with almost every bowel movement meaning that she is unlikely to keep any of her medications down including her hydrocortisone tablet for Lampasas's disease. Plan I'm going to give her hydrocortisone 100 mg IM today. Given Dilaudid 2 mg IM and Phenergan 37.5 mg IM for nausea and vomiting relief. Will be discharged home on Percocet 10/325 mg tablets one or 2 every 4-6 hours necessary for pain relief. Shows a prominent time in [place] this week with pain management physician. She is also to see someone at [facility] about getting a Port-A-Cath placed. 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
[2019-08-29] MEDS ORDERED: HYDROmorphone 1 MG/ML Syringe IM ONE (09:46)
== END 2019-08-29 10:00 | disposition home or self-care (01) ==
LOC: JD.ED 09:21
DX: K86.1 Other chronic pancreatitis (principal); E27.1 Primary adrenocortical insufficiency; H40.9 Unspecified glaucoma; I10 Essential (primary) hypertension; E03.9 Hypothyroidism, unspecified; E05.90 Thyrotoxicosis, unspecified without thyrotoxic crisis or storm; F41.9 Anxiety disorder, unspecified; F32.9 Major depressive disorder, single episode, unspecified; E66.9 Obesity, unspecified; Z68.35 Body mass index [BMI] 35.0-35.9, adult; Z86.73 Personal history of transient ischemic attack (TIA), and cerebral infarction without residual deficits; Z88.6 Allergy status to analgesic agent; Z88.5 Allergy status to narcotic agent; Z88.8 Allergy status to other drugs, medicaments and biological substances; Z79.890 Hormone replacement therapy; Z79.899 Other long term (current) drug therapy
CPT/HCPCS: 96372; 99283; J1170; J1720; J2550

== ENCOUNTER 2019-09-03 09:56 | Emergency (ER) | payer BC, MEDICARE ==
[2019-09-03 10:17] VITALS: BP 176/111; PULSE 82
[2019-09-03] MEDS ORDERED: Ketorolac 60 MG/2 ML SDV IM ONE (11:20)
[2019-09-03] MEDS ORDERED: HYDROmorphone 1 MG/ML Syringe IVPUSH ONE (11:20)
[2019-09-03] MEDS ORDERED: Promethazine 25 MG/ML SDV IM ONE (11:20)
--- NOTE | 2019-09-03 12:45 | EDM.PDOC ---
ED HPI GENERAL MEDICAL PROBLEM - General Chief Complaint: Abdominal Pain Stated Complaint: PANCREATITIS Time Seen by Provider: 09/03/19 10:56 Source of Information: Reports: Patient, RN Notes Reviewed - History of Present Illness INITIAL COMMENTS - FREE TEXT/NARRATIVE: 44 year old female returns with abd pain, nausea, vomiting. Hx of chronic pancreatitis. She was started on creon about 2 wks ago. She states she started seeing "blood in her stool about 4 days ago that has continued daily up until this morning. Her abdominal pain is mainly upper abdomen and left upper quadrant. No chest pain or difficulty breathing. No fever or chills. She states that she did see pain management provider in [place] 2 days ago. She did not sign a contract but there was discussion of getting set up for some type of spinal infusion therapy. Left Upper Abdominal Pain Score (Numeric/FACES): 10 - Related Data Allergies Allergy/AdvReac Type Severity Reaction Status Date / Time amylase [From Creon] Allergy Rash Verified 09/03/19 10:17 buprenorphine [From Butrans] Allergy Itching Verified 08/29/19 09:29 lipase [From Creon] Allergy Rash Verified 09/03/19 10:17 metoclopramide HCl Allergy Itching Verified 08/29/19 09:29 [From Reglan] protease [From Creon] Allergy Rash Verified 09/03/19 10:17 ketorolac [From Toradol] AdvReac Bleeding Verified 08/29/19 09:29 NSAIDS (Non-Steroidal AdvReac Abdominal Verified 08/29/19 09:29 Anti-Inflamma Pain prochlorperazine AdvReac Vomiting Verified 08/29/19 09:29 [From Compazine] Home Meds: Home Meds Mirtazapine 30 mg PO BEDTIME 03/14/19 [History] Pantoprazole Sodium [Protonix] 40 mg PO BID 03/14/19 [History] Prazosin HCl [Prazosin] 5 mg PO BEDTIME 03/14/19 [History] Vortioxetine [Trintellix] 10 mg PO DAILY 03/14/19 [History] ALPRAZolam [Alprazolam] 0.5 mg PO BID PRN 05/15/19 [History] Ferrous Sulfate [Iron] 650 mg PO BID 05/15/19 [History] Levothyroxine [Synthroid] 125 mcg PO DAILY 05/15/19 [History] QUEtiapine Fumarate [Quetiapine Fumarate] 75 mg PO BEDTIME 05/15/19 [History] Hydrocortisone 20 mg PO BID 05/16/19 [History] Cholecalciferol (Vitamin D3) [Vitamin D3] 1 tab PO DAILY 06/28/19 [History] Zolpidem [Ambien] 10 mg PO BEDTIME 08/14/19 [History] Amylase/Lipase/Protease [[place]kae DR 24,000 Unit] 24,000 mg PO ASDIRECTED 08/21/19 [History] oxyCODONE HCl/Acetaminophen [Percocet 10-325 mg Tablet] 1 each PO Q4H PRN #30 tablet 08/23/19 [Rx] oxyCODONE HCl/Acetaminophen [Percocet 10-325 mg Tablet] 1 each PO Q4H #20 tablet 08/29/19 [Rx] Past Medical History - Past Health History Medical/Surgical History: Denies Medical/Surgical History HEENT History: Reports: Glaucoma, Otitis Media Cardiovascular History: Reports: Hypertension Other Cardiovascular History: tachycardia Respiratory History: Reports: None Gastrointestinal History: Reports: Chronic Constipation, Hemorrhoids, Pancreatitis, Other (See Below) Other Gastrointestinal History: chronic pancreatitis, LUQ pain, gastric sleeve procedure, hemorrhoids Genitourinary History: Reports: UTI, Recurrent 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 ADVERTISING COLUMNIST History: c section x3, tubes tied Musculoskeletal History: Reports: Arthritis, Fracture, Other (See Below) Other Musculoskeletal History: left foot fracture, elbow pain, wrist pain, weakness, falls Neurological History: Reports: TIA, Other (See Below) Other Neuro History: pseudotumor, shunt, benign pineal brain tumor, memory loss , seizure disorder, vertigo, brain surgery x 16 Psychiatric History: Reports: Addiction, Anxiety, Depression Endocrine/Metabolic History: Reports: 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, Hypothyroidism, Obesity /BMI 30+, Vitamin D Deficiency Other Endocrine/Metabolic History: hyperthyroidism, hypothyroidism, hashimotos, secondary adrenal insufficiency Hematologic History: Reports: Anemia, Other (See Below) Other Hematologic History: anti TPO antibody Immunologic History: Reports: None Oncologic (Cancer) History: Reports: None Dermatologic History: Reports: Cellulitis - Infectious Disease History Infectious Disease History: Reports: C-Difficile, MRSA Other Infectious Disease History: in 2006, 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 dental extraction Cardiovascular Surgical History: Reports: None Respiratory Surgical History: Reports: None GI Surgical History: Reports: Appendectomy, Bariatric Procedure, Cholecystectomy , Colonoscopy, EGD, ERCP Other GI Surgeries/Procedures: EUS Female Surgical History: Reports: Section, Tubal Ligation Other Female Surgeries/Procedures: C-SECTIONS X3 Endocrine Surgical History: Reports: None Neurological Surgical History: 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 (See Below) Other Neurological Surgeries/Procedures: brain tumor removal Musculoskeletal Surgical History: Reports: None Other Oncologic Surgeries/Procedures: Brain tumor removal Dermatological Surgical History: Reports: None Social & Family History - Family History Family Medical History: Noncontributory Cardiac: Reports: Bypass, Hypertension, [place] Respiratory: Reports: Asthma Oncologic: Reports: Colon - Tobacco Use Smoking Status *Q: Never Smoker Second Hand Smoke Exposure: No - Caffeine Use Caffeine Use: Reports: Coffee Other Caffeine Use: 1 cup daily - Recreational Drug Use Recreational Drug Use: No - Living Situation & Occupation Living situation: Reports: , with Spouse Occupation: Unemployed ED ROS GENERAL - Review of Systems Review Of Systems: See Below Constitutional: Denies: Fever, Chills, Diaphoresis HEENT: Reports: No Symptoms Respiratory: Denies: Shortness of Breath Cardiovascular: Denies: Chest Pain GI/Abdominal: Reports: Hematochezia, Nausea, Vomiting Musculoskeletal: Reports: Back Pain Skin: Reports: No Symptoms Neurological: Reports: No Symptoms ED EXAM, GI/ABD - Physical Exam Exam: See Below General Appearance: Alert, Moderate Distress Eyes: Bilateral: Normal Appearance Throat/Mouth: Normal Inspection, Normal Oropharynx Head: Atraumatic Neck: Supple Respiratory/Chest: No Respiratory Distress, Lungs Clear, Normal Breath Sounds Cardiovascular: Regular Rate, Rhythm GI/Abdominal Exam: Soft, Tender (Upper mid abdomen left upper quadrant) Rectal (Female) Exam: Other (brown stool mildly heme positive, no gross blood visible) Back Exam: CVA Tenderness (L). No: CVA Tenderness (R) Extremities: Normal Inspection, Normal Range of Motion Neurological: Alert, Oriented Skin Exam: Warm, Dry, Normal Color Course - Vital Signs Last Recorded V/S: Last Vital Signs Temp 97.5 F 09/03/19 10:14 Pulse 82 09/03/19 10:14 Resp 16 09/03/19 10:14 BP 176/111 H 09/03/19 10:14 Pulse Ox 100 09/03/19 10:14 - Orders/Labs/Meds Labs: Laboratory Tests 09/03/19 09/03/19 Range/Units 11:42 11:42 WBC 9.42 (3.98-10.04) K/mm3 RBC 4.33 (3.98-5.22) M/mm3 Hgb 13.8 (11.2-15.7) gm/dl Hct 41.7 (34.1-44.9) % MCV 96.3 H (79.4-94.8) fl MCH 31.9 (25.6-32.2) pg MCHC 33.1 (32.2-35.5) g/dl RDW Std Deviation 44.7 (36.4-46.3) fL Plt Count 251 (182-369) K/mm3 MPV 9.3 L (9.4-12.3) fl Neut % (Auto) 70.3 (34.0-71.1) % Lymph % (Auto) 20.1 (19.3-51.7) % [place] % (Auto) 9.1 (4.7-12.5) % Eos % (Auto) 0.3 L (0.7-5.8) Baso % (Auto) 0.1 (0.1-1.2) % Neut # (Auto) 6.62 H (1.56-6.13) K/mm3 Lymph # (Auto) 1.89 (1.18-3.74) K/mm3 [place] # (Auto) 0.86 H (0.24-0.36) K/mm3 Eos # (Auto) 0.03 L (0.04-0.36) K/mm3 Baso # (Auto) 0.01 (0.01-0.08) K/mm3 Sodium 139 (136-145) mEq/L Potassium 3.7 (3.5-5.1) mEq/L Chloride 103 (98-107) mEq/L Carbon Dioxide 27 (21-32) mEq/L Anion Gap 12.7 (5-15) BUN 7 (7-18) mg/dL Creatinine 0.8 (0.55-1.02) mg/dL Est Cr Clr Drug Dosing TNP Estimated GFR (MDRD) > 60 (>60) mL/min BUN/Creatinine Ratio 8.8 L (14-18) Glucose 93 (74-106) mg/dL Calcium 9.3 (8.5-10.1) mg/dL Total Bilirubin 0.4 (0.2-1.0) mg/dL AST 18 (15-37) U/L ALT 20 (14-59) U/L Alkaline Phosphatase 61 (46-116) U/L Total Protein 8.3 H (6.4-8.2) g/dl Albumin 4.1 (3.4-5.0) g/dl Globulin 4.2 gm/dL Albumin/Globulin Ratio 1.0 (1-2) Lipase 206 (73-393) U/L Meds: Medications Discontinued Medications Generic Name Dose Route Start Last Admin Trade Name Freq PRN Reason Stop Dose Admin Hydromorphone HCl 1 mg 09/03/19 11:20 09/03/19 11:32 Dilaudid IVPUSH 09/03/19 11:21 1 mg ONETIME ONE Administration Ketorolac Tromethamine 60 mg 09/03/19 11:20 09/03/19 11:29 Toradol IM 09/03/19 11:21 60 mg ONETIME ONE Administration Promethazine HCl 37.5 mg 09/03/19 11:20 09/03/19 11:28 Phenergan IM 09/03/19 11:21 37.5 mg ONETIME ONE Administration - Re-Assessments/Exams Free Text/Narrative Re-Assessment/Exam: 09/03/19 13:26 labs did come back normal, discharge instr. as documented. Departure - Departure Time of Disposition: 12:42 Disposition: Home, Self-Care 01 Condition: Fair Clinical Impression: Abdominal pain, Vomiting, Heme positive stool - Discharge Information Instructions: Abdominal Pain, Adult, [id number], Vomiting, Adult Referrals: Farzaneh Smith MD [Primary Care Provider] - Forms: ED Department Discharge Additional Instructions: Continue to not take further Creon for now. Currently liquids until this evening, then very careful bland diet as tolerated. Follow-up clinic as needed. Continue to work with your specialists in [place] for further guidance and direction.
== END 2019-09-03 12:51 | disposition home or self-care (01) ==
LOC: JD.ED 09:56 → SUPCPDRO 09:56 → JD.ED 12:51
DX: R10.12 Left upper quadrant pain (principal); R11.2 Nausea with vomiting, unspecified; R19.5 Other fecal abnormalities; I10 Essential (primary) hypertension; E66.9 Obesity, unspecified; E03.9 Hypothyroidism, unspecified; F41.9 Anxiety disorder, unspecified; F32.9 Major depressive disorder, single episode, unspecified; Z88.8 Allergy status to other drugs, medicaments and biological substances; Z88.6 Allergy status to analgesic agent; Z79.899 Other long term (current) drug therapy; Z79.890 Hormone replacement therapy; Z86.73 Personal history of transient ischemic attack (TIA), and cerebral infarction without residual deficits
CPT/HCPCS: 36415; 80053; 83690; 85025; 96372; 99284; J1170; J1885; J2550

== ENCOUNTER 2019-09-05 13:23 | Emergency (ER) | payer BC, MEDICARE ==
[2019-09-05 13:46] VITALS: BP 159/98; PULSE 79
[2019-09-05] MEDS ORDERED: HYDROmorphone 1 MG/ML Syringe IM ONE (14:04)
[2019-09-05] MEDS ORDERED: HYDROmorphone 1 MG/ML Syringe ONE (14:07)
--- NOTE | 2019-09-05 15:11 | EDM.PDOC ---
ED HPI GENERAL MEDICAL PROBLEM - General Chief Complaint: Abdominal Pain Stated Complaint: ABDOMINAL PAIN,VAGINAL BLEEDING Time Seen by Provider: 09/05/19 13:38 Source of Information: Reports: Patient History Limitations: Reports: No Limitations - History of Present Illness INITIAL COMMENTS - FREE TEXT/NARRATIVE: The patient presents with upper abdominal pain and rectal bleeding. She has a history of chronic pancreatitis and she was put on creon recently. She started having rectal bleeding after that. She went to [facility] for follow up over a week ago. She has been in contact with them and they think it is from the creon and she was told to stop it. She did and she continues to have some bleeding. She was seen here Thursday by Dr Barrios and a rectal exam was done and it was guiac positive without hemorrhoids. She has no nausea or vomiting today. Onset: Gradual Duration: Week(s): Location: Reports: Abdomen Quality: Reports: Sharp Severity: Severe Improves with: Reports: None Worsens with: Reports: None Associated Symptoms: Reports: No Other Symptoms Abdominal Pain Score (Numeric/FACES): 7 - Related Data Allergies Allergy/AdvReac Type Severity Reaction Status Date / Time amylase [From Creon] Allergy Rash Verified 09/05/19 13:45 buprenorphine [From Butrans] Allergy Itching Verified 09/05/19 13:45 lipase [From Creon] Allergy Rash Verified 09/05/19 13:45 metoclopramide HCl Allergy Itching Verified 09/05/19 13:45 [From Reglan] protease [From Creon] Allergy Rash Verified 09/05/19 13:45 ketorolac [From Toradol] AdvReac Bleeding Verified 09/05/19 13:45 NSAIDS (Non-Steroidal AdvReac Abdominal Verified 09/05/19 13:45 Anti-Inflamma Pain prochlorperazine AdvReac Vomiting Verified 09/05/19 13:45 [From Compazine] Home Meds: Home Meds Mirtazapine 30 mg PO BEDTIME 03/14/19 [History] Pantoprazole Sodium [Protonix] 40 mg PO BID 03/14/19 [History] Prazosin HCl [Prazosin] 5 mg PO BEDTIME 03/14/19 [History] Vortioxetine [Trintellix] 10 mg PO DAILY 03/14/19 [History] ALPRAZolam [Alprazolam] 0.5 mg PO BID PRN 05/15/19 [History] Ferrous Sulfate [Iron] 650 mg PO BID 05/15/19 [History] Levothyroxine [Synthroid] 125 mcg PO DAILY 05/15/19 [History] QUEtiapine Fumarate [Quetiapine Fumarate] 75 mg PO BEDTIME 05/15/19 [History] Hydrocortisone 20 mg PO BID 05/16/19 [History] Cholecalciferol (Vitamin D3) [Vitamin D3] 1 tab PO DAILY 06/28/19 [History] Zolpidem [Ambien] 10 mg PO BEDTIME 08/14/19 [History] Amylase/Lipase/Protease [[place]yo DR 24,000 Unit] 24,000 mg PO ASDIRECTED 08/21/19 [History] oxyCODONE HCl/Acetaminophen [Percocet 10-325 mg Tablet] 1 each PO Q4H PRN #30 tablet 08/23/19 [Rx] oxyCODONE HCl/Acetaminophen [Percocet 10-325 mg Tablet] 1 each PO Q4H #20 tablet 08/29/19 [Rx] Past Medical History - Past Health History Medical/Surgical History: Denies Medical/Surgical History HEENT History: Reports: Glaucoma, Otitis Media Cardiovascular History: Reports: Hypertension Other Cardiovascular History: tachycardia Respiratory History: Reports: None Gastrointestinal History: Reports: Chronic Constipation, Hemorrhoids, Pancreatitis, Other (See Below) Other Gastrointestinal History: chronic pancreatitis, LUQ pain, gastric sleeve procedure, hemorrhoids Genitourinary History: Reports: UTI, Recurrent 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: c section x3, tubes tied Musculoskeletal History: Reports: Arthritis, Fracture, Other (See Below) Other Musculoskeletal History: left foot fracture, elbow pain, wrist pain, weakness, falls Neurological History: Reports: TIA, Other (See Below) Other Neuro History: pseudotumor, shunt, benign pineal brain tumor, memory loss , seizure disorder, vertigo, brain surgery x 16 Psychiatric History: Reports: Addiction, Anxiety, Depression 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, Hypothyroidism, Obesity /BMI 30+, Vitamin D Deficiency Other Endocrine/Metabolic History: hyperthyroidism, hypothyroidism, hashimotos, secondary adrenal insufficiency Hematologic History: Reports: Anemia, Other (See Below) Other Hematologic History: anti TPO antibody Immunologic History: Reports: None Oncologic (Cancer) History: Reports: None Dermatologic History: Reports: Cellulitis - Infectious Disease History Infectious Disease History: Reports: C-Difficile, MRSA Other Infectious Disease History: in 2006, 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 dental extraction Cardiovascular Surgical History: Reports: None Respiratory Surgical History: Reports: None GI Surgical History: Reports: Appendectomy, Bariatric Procedure, Cholecystectomy , Colonoscopy, EGD, ERCP Other GI Surgeries/Procedures: EUS Female Surgical History: Reports: Section, Tubal Ligation Other Female Surgeries/Procedures: C-SECTIONS X3 Endocrine Surgical History: Reports: None Neurological Surgical History: 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 (See Below) Other Neurological Surgeries/Procedures: brain tumor removal Musculoskeletal Surgical History: Reports: None Other Oncologic Surgeries/Procedures: Brain tumor removal Dermatological Surgical History: Reports: None Social & Family History - Family History Family Medical History: Noncontributory Cardiac: Reports: Bypass, Hypertension, [place] Respiratory: Reports: Asthma Oncologic: Reports: Colon - Tobacco Use Smoking Status *Q: Never Smoker - Caffeine Use Caffeine Use: Reports: Coffee Other Caffeine Use: 1 cup daily - Living Situation & Occupation Living situation: Reports: , with Spouse Occupation: Unemployed ED ROS GENERAL - Review of Systems Review Of Systems: See Below Constitutional: Reports: No Symptoms HEENT: Reports: No Symptoms Respiratory: Reports: No Symptoms Cardiovascular: Reports: No Symptoms Endocrine: Reports: No Symptoms GI/Abdominal: Reports: Abdominal Pain, Hematochezia. Denies: Diarrhea, Nausea, Vomiting : Reports: No Symptoms Musculoskeletal: Reports: No Symptoms ED EXAM, GI/ABD - Physical Exam Exam: See Below Exam Limited By: No Limitations General Appearance: Alert, No Apparent Distress Ears: Normal External Exam Nose: Normal Inspection Head: Atraumatic, Normocephalic Neck: Normal Inspection Respiratory/Chest: No Respiratory Distress, Lungs Clear, Normal Breath Sounds Cardiovascular: Regular Rate, Rhythm, No Edema, No Murmur GI/Abdominal Exam: Soft, No Organomegaly, No Mass, Tender (Moderate tenderness to the upper abdomen) Course - Vital Signs Last Recorded V/S: Last Vital Signs Temp 97.8 F 09/05/19 13:42 Pulse 79 09/05/19 13:42 Resp 16 09/05/19 13:42 BP 159/98 H 09/05/19 13:42 Pulse Ox 99 09/05/19 13:42 - Orders/Labs/Meds Orders: Active Orders 24 hr Category Date Time Status Cardiac Monitoring [RC] . DIRECTED Care 09/05/19 14:04 Active HYDROmorphone [Dilaudid] Med 09/05/19 15:25 Once 0.5 mg IM ONETIME ONE Labs: Laboratory Tests 09/05/19 09/05/19 Range/Units 14:16 14:16 WBC 9.51 (3.98-10.04) K/mm3 RBC 4.41 (3.98-5.22) M/mm3 Hgb 13.8 (11.2-15.7) gm/dl Hct 42.0 (34.1-44.9) % MCV 95.2 H (79.4-94.8) fl MCH 31.3 (25.6-32.2) pg MCHC 32.9 (32.2-35.5) g/dl RDW Std Deviation 44.6 (36.4-46.3) fL Plt Count 285 (182-369) K/mm3 MPV 9.6 (9.4-12.3) fl Neut % (Auto) 59.4 (34.0-71.1) % Lymph % (Auto) 29.8 (19.3-51.7) % [place] % (Auto) 10.1 (4.7-12.5) % Eos % (Auto) 0.3 L (0.7-5.8) Baso % (Auto) 0.2 (0.1-1.2) % Neut # (Auto) 5.65 (1.56-6.13) K/mm3 Lymph # (Auto) 2.83 (1.18-3.74) K/mm3 [place] # (Auto) 0.96 H (0.24-0.36) K/mm3 Eos # (Auto) 0.03 L (0.04-0.36) K/mm3 Baso # (Auto) 0.02 (0.01-0.08) K/mm3 Sodium 139 (136-145) mEq/L Potassium 3.8 (3.5-5.1) mEq/L Chloride 105 (98-107) mEq/L Carbon Dioxide 23 (21-32) mEq/L Anion Gap 14.8 (5-15) BUN 7 (7-18) mg/dL Creatinine 0.9 (0.55-1.02) mg/dL Est Cr Clr Drug Dosing 85.36 mL/min Estimated GFR (MDRD) > 60 (>60) mL/min BUN/Creatinine Ratio 7.8 L (14-18) Glucose 90 (74-106) mg/dL Calcium 9.6 (8.5-10.1) mg/dL Total Bilirubin 0.4 (0.2-1.0) mg/dL AST 19 (15-37) U/L ALT 18 (14-59) U/L Alkaline Phosphatase 57 (46-116) U/L Total Protein 8.4 H (6.4-8.2) g/dl Albumin 4.1 (3.4-5.0) g/dl Globulin 4.3 gm/dL Albumin/Globulin Ratio 1.0 (1-2) Lipase 245 (73-393) U/L Meds: Medications Discontinued Medications Generic Name Dose Route Start Last Admin Trade Name Jean-Pierreq PRN Reason Stop Dose Admin Hydromorphone HCl 1 mg 09/05/19 14:04 09/05/19 14:09 Dilaudid IM 09/05/19 14:05 1 mg ONETIME ONE Administration Hydromorphone HCl Confirm 09/05/19 14:07 09/05/19 14:12 Dilaudid Administered 09/05/19 14:08 Not Given Dose 1 mg .ROUTE .STK-MED ONE - Re-Assessments/Exams Free Text/Narrative Re-Assessment/Exam: 09/05/19 15:20 I ordered labs and dilaudid 1mg IM. Her CBC and CMP look good. Her lipase is normal. Departure - Departure Time of Disposition: 15:25 Disposition: Home, Self-Care 01 Condition: Good Clinical Impression: Rectal bleeding Abdominal pain Qualifiers: Abdominal location: upper abdomen, unspecified Qualified Code(s): R10.10 - Upper abdominal pain, unspecified - Discharge Information *PRESCRIPTION DRUG MONITORING PROGRAM REVIEWED*: No *COPY OF PRESCRIPTION DRUG MONITORING REPORT IN PATIENT ALE: No Referrals: Farzaneh Smith MD [Primary Care Provider] - Forms: ED Department Discharge Additional Instructions: Keep taking your medications as prescribed. Follow up with your doctors. - My Orders Last 24 Hours: My Active Orders 09/05/19 14:04 Cardiac Monitoring [RC] . DIRECTED 09/05/19 15:25 HYDROmorphone [Dilaudid] 0.5 mg IM ONETIME ONE - Assessment/Plan Last 24 Hours: My Active Orders 09/05/19 14:04 Cardiac Monitoring [RC] . DIRECTED 09/05/19 15:25 HYDROmorphone [Dilaudid] 0.5 mg IM ONETIME ONE
[2019-09-05] MEDS ORDERED: HYDROmorphone 0.5 MG/0.5 ML Syringe IM ONE (15:25)
== END 2019-09-05 15:43 | disposition home or self-care (01) ==
LOC: JD.ED 13:23
DX: K62.5 Hemorrhage of anus and rectum (principal); R10.10 Upper abdominal pain, unspecified; I10 Essential (primary) hypertension; F41.9 Anxiety disorder, unspecified; F32.9 Major depressive disorder, single episode, unspecified; E03.9 Hypothyroidism, unspecified; D64.9 Anemia, unspecified; E66.9 Obesity, unspecified; Z68.37 Body mass index [BMI] 37.0-37.9, adult; Z88.8 Allergy status to other drugs, medicaments and biological substances; Z88.5 Allergy status to narcotic agent; Z88.6 Allergy status to analgesic agent; Z79.899 Other long term (current) drug therapy; Z86.73 Personal history of transient ischemic attack (TIA), and cerebral infarction without residual deficits; Z79.890 Hormone replacement therapy
CPT/HCPCS: 36415; 80053; 83690; 85025; 96372; 99284; J1170; 99283

== ENCOUNTER 2019-09-08 09:49 | Emergency (ER) | payer BC, MEDICARE ==
[2019-09-08 10:07] VITALS: BP 149/95; PULSE 78
[2019-09-08] MEDS ORDERED: HYDROmorphone 1 MG/ML Syringe IM ONE ×2 (10:34→12:09)
[2019-09-08] MEDS ORDERED: Promethazine 25 MG/ML SDV IM ONE (12:12)
--- NOTE | 2019-09-08 12:17 | EDM.PDOC ---
ED HPI GENERAL MEDICAL PROBLEM - General Chief Complaint: Abdominal Pain Stated Complaint: ABDOMINAL PAIN Time Seen by Provider: 09/08/19 10:18 Source of Information: Reports: Patient, Family History Limitations: Reports: No Limitations - History of Present Illness INITIAL COMMENTS - FREE TEXT/NARRATIVE: The patient presents with abdominal pain, nausea and vomiting. She has a history of chronic pancreatitis. She was seen here a couple days ago for rectal bleeding and abdominal pain. She felt good for a few days and the pain increased today. She has no more rectal bleeding. Tomorrow she goes to a pain specialist in [place]. She has no fever or chills. She has no dysuria. She did have some diarrhea. Onset: Gradual Duration: Day(s): Quality: Reports: Sharp Severity: Moderate Improves with: Reports: None Worsens with: Reports: None Associated Symptoms: Reports: Nausea/Vomiting. Denies: Chest Pain, Cough, Fever /Chills, Shortness of Breath Left Upper Abdomen Pain Score (Numeric/FACES): 8 - Related Data Allergies Allergy/AdvReac Type Severity Reaction Status Date / Time amylase [From Creon] Allergy Rash Verified 09/08/19 10:11 buprenorphine [From Butrans] Allergy Itching Verified 09/08/19 10:11 lipase [From Creon] Allergy Rash Verified 09/08/19 10:11 metoclopramide HCl Allergy Itching Verified 09/08/19 10:11 [From Reglan] protease [From Creon] Allergy Rash Verified 09/08/19 10:11 ketorolac [From Toradol] AdvReac Bleeding Verified 09/08/19 10:11 NSAIDS (Non-Steroidal AdvReac Abdominal Verified 09/08/19 10:11 Anti-Inflamma Pain prochlorperazine AdvReac Vomiting Verified 09/08/19 10:11 [From Compazine] Home Meds: Home Meds Mirtazapine 30 mg PO BEDTIME 03/14/19 [History] Pantoprazole Sodium [Protonix] 40 mg PO BID 03/14/19 [History] Prazosin HCl [Prazosin] 5 mg PO BEDTIME 03/14/19 [History] Vortioxetine [Trintellix] 10 mg PO DAILY 03/14/19 [History] ALPRAZolam [Alprazolam] 0.5 mg PO BID PRN 05/15/19 [History] Ferrous Sulfate [Iron] 650 mg PO BID 05/15/19 [History] Levothyroxine [Synthroid] 125 mcg PO DAILY 05/15/19 [History] QUEtiapine Fumarate [Quetiapine Fumarate] 75 mg PO BEDTIME 05/15/19 [History] Hydrocortisone 20 mg PO BID 05/16/19 [History] Cholecalciferol (Vitamin D3) [Vitamin D3] 1 tab PO DAILY 06/28/19 [History] Zolpidem [Ambien] 10 mg PO BEDTIME 08/14/19 [History] Past Medical History - Past Health History Medical/Surgical History: Denies Medical/Surgical History HEENT History: Reports: Glaucoma, Otitis Media Cardiovascular History: Reports: Hypertension Other Cardiovascular History: tachycardia Respiratory History: Reports: None Gastrointestinal History: Reports: Chronic Constipation, Hemorrhoids, Pancreatitis, Other (See Below) Other Gastrointestinal History: chronic pancreatitis, LUQ pain, gastric sleeve procedure, hemorrhoids Genitourinary History: Reports: UTI, Recurrent ROLLER HAND History: 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 ROLLER HAND History: c section x3, tubes tied Musculoskeletal History: Reports: Arthritis, Fracture, Other (See Below) Other Musculoskeletal History: left foot fracture, elbow pain, wrist pain, weakness, falls Neurological History: Reports: TIA, Other (See Below) Other Neuro History: pseudotumor, shunt, benign pineal brain tumor, memory loss , seizure disorder, vertigo, brain surgery x 16 Psychiatric History: Reports: Addiction, Anxiety, Depression 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, Hypothyroidism, Obesity /BMI 30+, Vitamin D Deficiency Other Endocrine/Metabolic History: hyperthyroidism, hypothyroidism, hashimotos, secondary adrenal insufficiency Hematologic History: Reports: Anemia, Other (See Below) Other Hematologic History: anti TPO antibody Immunologic History: Reports: None Oncologic (Cancer) History: Reports: None Dermatologic History: Reports: Cellulitis - Infectious Disease History Infectious Disease History: Reports: C-Difficile, MRSA Other Infectious Disease History: in 2006, 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." - Past Surgical History Head Surgeries/Procedures: Reports: Shunt HEENT Surgical History: Reports: Oral Surgery Other HEENT Surgeries/Procedures: [place] teeth removal. dental extraction Cardiovascular Surgical History: Reports: None Respiratory Surgical History: Reports: None GI Surgical History: Reports: Appendectomy, Bariatric Procedure, Cholecystectomy , Colonoscopy, EGD, ERCP Other GI Surgeries/Procedures: EUS Female Surgical History: Reports: Section, Tubal Ligation Other Female Surgeries/Procedures: C-SECTIONS X3 Endocrine Surgical History: Reports: None Neurological Surgical History: 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 (See Below) Other Neurological Surgeries/Procedures: brain tumor removal Musculoskeletal Surgical History: Reports: None Other Oncologic Surgeries/Procedures: Brain tumor removal Dermatological Surgical History: Reports: None Social & Family History - Family History Family Medical History: Noncontributory Cardiac: Reports: Bypass, Hypertension, [place] Respiratory: Reports: Asthma Oncologic: Reports: Colon - Tobacco Use Smoking Status *Q: Never Smoker - Caffeine Use Caffeine Use: Reports: Coffee Other Caffeine Use: 1 cup daily - Recreational Drug Use Recreational Drug Use: No - Living Situation & Occupation Living situation: Reports: , with Spouse Occupation: Unemployed ED ROS GENERAL - Review of Systems Review Of Systems: See Below Constitutional: Reports: No Symptoms HEENT: Reports: No Symptoms Respiratory: Reports: No Symptoms Cardiovascular: Reports: No Symptoms Endocrine: Reports: No Symptoms GI/Abdominal: Reports: Abdominal Pain, Diarrhea, Nausea, Vomiting : Reports: No Symptoms Musculoskeletal: Reports: No Symptoms ED EXAM, GI/ABD - Physical Exam Exam: See Below Exam Limited By: No Limitations General Appearance: Alert, No Apparent Distress Ears: Normal External Exam Nose: Normal Inspection Head: Atraumatic, Normocephalic Neck: Normal Inspection Respiratory/Chest: No Respiratory Distress, Lungs Clear, Normal Breath Sounds Cardiovascular: Regular Rate, Rhythm, No Edema, No Murmur GI/Abdominal Exam: Soft, No Organomegaly, No Mass, Tender (Moderate pain to the upper abdomen) Course - Vital Signs Last Recorded V/S: Last Vital Signs Temp 97.4 F 09/08/19 10:03 Pulse 78 09/08/19 10:03 Resp 12 09/08/19 10:03 BP 149/95 H 09/08/19 10:03 Pulse Ox 100 09/08/19 10:03 - Orders/Labs/Meds Labs: Laboratory Tests 09/08/19 09/08/19 Range/Units 10:54 10:54 WBC 9.28 (3.98-10.04) K/mm3 RBC 4.24 (3.98-5.22) M/mm3 Hgb 13.4 (11.2-15.7) gm/dl Hct 41.0 (34.1-44.9) % MCV 96.7 H (79.4-94.8) fl MCH 31.6 (25.6-32.2) pg MCHC 32.7 (32.2-35.5) g/dl RDW Std Deviation 45.0 (36.4-46.3) fL Plt Count 263 (182-369) K/mm3 MPV 9.5 (9.4-12.3) fl Neut % (Auto) 75.2 H (34.0-71.1) % Lymph % (Auto) 18.4 L (19.3-51.7) % [place] % (Auto) 5.9 (4.7-12.5) % Eos % (Auto) 0.2 L (0.7-5.8) Baso % (Auto) 0.2 (0.1-1.2) % Neut # (Auto) 6.97 H (1.56-6.13) K/mm3 Lymph # (Auto) 1.71 (1.18-3.74) K/mm3 [place] # (Auto) 0.55 H (0.24-0.36) K/mm3 Eos # (Auto) 0.02 L (0.04-0.36) K/mm3 Baso # (Auto) 0.02 (0.01-0.08) K/mm3 Sodium 143 (136-145) mEq/L Potassium 3.6 (3.5-5.1) mEq/L Chloride 105 (98-107) mEq/L Carbon Dioxide 26 (21-32) mEq/L Anion Gap 15.6 H (5-15) BUN 10 (7-18) mg/dL Creatinine 0.9 (0.55-1.02) mg/dL Est Cr Clr Drug Dosing 85.36 mL/min Estimated GFR (MDRD) > 60 (>60) mL/min BUN/Creatinine Ratio 11.1 L (14-18) Glucose 96 (74-106) mg/dL Calcium 9.3 (8.5-10.1) mg/dL Total Bilirubin 0.4 (0.2-1.0) mg/dL AST 14 L (15-37) U/L ALT 16 (14-59) U/L Alkaline Phosphatase 52 (46-116) U/L Total Protein 8.5 H (6.4-8.2) g/dl Albumin 4.3 (3.4-5.0) g/dl Globulin 4.2 gm/dL Albumin/Globulin Ratio 1.0 (1-2) Lipase 460 H (73-393) U/L Meds: Medications Discontinued Medications Generic Name Dose Route Start Last Admin Trade Name Jean-Pierreq PRN Reason Stop Dose Admin Hydromorphone HCl 1 mg 09/08/19 10:34 09/08/19 10:54 Dilaudid IM 09/08/19 10:35 1 mg ONETIME ONE Administration Hydromorphone HCl 1 mg 09/08/19 12:09 Dilaudid IM 09/08/19 12:10 ONETIME ONE Promethazine HCl 25 mg 09/08/19 12:12 Phenergan IM 09/08/19 12:13 ONETIME ONE - Re-Assessments/Exams Free Text/Narrative Re-Assessment/Exam: 09/08/19 12:20 I ordered labs and dilaudid 1mg IM. Her CBC looks good. He anion gap was a little elevated at 15.6. Her lipase was a little elevated at 460. She has more pain so I ordered more dilaudid 1mg IM and phenergan 25mg IM. Departure - Departure Time of Disposition: 12:45 Disposition: Home, Self-Care 01 Condition: Good Clinical Impression: Vomiting Abdominal pain Qualifiers: Abdominal location: upper abdomen, unspecified Qualified Code(s): R10.10 - Upper abdominal pain, unspecified Chronic pancreatitis Qualifiers: Pancreatitis type: other Qualified Code(s): K86.1 - Other chronic pancreatitis - Discharge Information *PRESCRIPTION DRUG MONITORING PROGRAM REVIEWED*: No *COPY OF PRESCRIPTION DRUG MONITORING REPORT IN PATIENT ALE: No Referrals: Farzaneh Smith MD [Primary Care Provider] - Forms: ED Department Discharge Additional Instructions: Follow up with your pain specialist tomorrow. Please return if you are worse.
== END 2019-09-08 12:59 | disposition home or self-care (01) ==
LOC: JD.ED 09:49
DX: K86.1 Other chronic pancreatitis (principal); I10 Essential (primary) hypertension; E03.9 Hypothyroidism, unspecified; E66.9 Obesity, unspecified; Z88.6 Allergy status to analgesic agent; Z88.8 Allergy status to other drugs, medicaments and biological substances; Z79.899 Other long term (current) drug therapy; Z86.73 Personal history of transient ischemic attack (TIA), and cerebral infarction without residual deficits; Z79.890 Hormone replacement therapy
CPT/HCPCS: 36415; 80053; 83690; 85025; 96372; 99284; J1170; J2550; 99283

== ENCOUNTER 2019-09-25 08:51 | Emergency (ER) | payer BC ==
[2019-09-25 09:13] VITALS: BP 152/83; PULSE 88
[2019-09-25] MEDS ORDERED: Hydrocortisone Sodium Succinate 100 MG/2 ML SDV IM ONE (09:22)
[2019-09-25] MEDS ORDERED: Promethazine 25 MG/ML SDV IM ONE (09:23)
[2019-09-25] MEDS ORDERED: HYDROmorphone 1 MG/ML Syringe IM ONE (09:23)
--- NOTE | 2019-09-25 09:28 | EDM.PDOC ---
ED HPI GENERAL MEDICAL PROBLEM - General Chief Complaint: Abdominal Pain Stated Complaint: ABDOMINAL PAIN Time Seen by Provider: 09/25/19 09:22 Source of Information: Reports: Patient History Limitations: Reports: No Limitations - History of Present Illness INITIAL COMMENTS - FREE TEXT/NARRATIVE: 44-year-old female attends the ED once again regarding chronic relapsing pancreatitis with severe pain in epigastrium and left upper quadrant of the abdomen rating to to her back inferior to the scapula. This is characteristic of her chronic pain pattern for last 3-1/2 years or more. Associated nausea and vomiting of bilious material. Associated chronic diarrhea whiskey at [facility]. Patient has been on pancreatic cyst supplements i.e. Pancrease for the last 3 weeks with no improvement in pain or steatorrhea. She is therefore currently traveling to [place] in preparation for possible Whipple's procedure or at least removal of part of her pancreas to see if they can bring the pain and chronic pancreatitis under control. She is here now seeking pain management and medication for nausea relief. Onset: Sudden Onset Date: 09/23/19 (Has been battling with abdominal pain and recurrent vomiting for 2 days. Not sure she is kept on her cortisone tablet as she reportedly has [place]'s disease as well.) Duration: Day(s):, Getting Worse Location: Reports: Abdomen (Epigastrium and left upper quadrant of the abdomen.) Quality: Reports: Ache, Other (Deep aching pain rating to to her back) Severity: Severe (with associated nausea and vomiting dated at 10) Improves with: Reports: None Worsens with: 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 Context: 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 (History of chronic relapsing pancreatitis with pain 3 or 4 days out of 7.). 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 (see below) Abdomen Pain Score (Numeric/FACES): 9 - Related Data Allergies Allergy/AdvReac Type Severity Reaction Status Date / Time amylase [From Creon] Allergy Rash Verified 09/25/19 09:08 buprenorphine [From Butrans] Allergy Itching Verified 09/25/19 09:08 lipase [From Creon] Allergy Rash Verified 09/25/19 09:08 metoclopramide HCl Allergy Itching Verified 09/25/19 09:08 [From Reglan] protease [From Creon] Allergy Rash Verified 09/25/19 09:08 ketorolac [From Toradol] AdvReac Bleeding Verified 09/25/19 09:08 NSAIDS (Non-Steroidal AdvReac Abdominal Verified 09/25/19 09:08 Anti-Inflamma Pain prochlorperazine AdvReac Vomiting Verified 09/25/19 09:08 [From Compazine] Home Meds: Home Meds Mirtazapine 30 mg PO BEDTIME 03/14/19 [History] Pantoprazole Sodium [Protonix] 40 mg PO BID 03/14/19 [History] Prazosin HCl [Prazosin] 5 mg PO BEDTIME 03/14/19 [History] Vortioxetine [Trintellix] 10 mg PO DAILY 03/14/19 [History] ALPRAZolam [Alprazolam] 0.5 mg PO BID PRN 05/15/19 [History] Ferrous Sulfate [Iron] 650 mg PO BID 05/15/19 [History] Levothyroxine [Synthroid] 125 mcg PO DAILY 05/15/19 [History] QUEtiapine Fumarate [Quetiapine Fumarate] 75 mg PO BEDTIME 05/15/19 [History] Hydrocortisone 20 mg PO BID 05/16/19 [History] Cholecalciferol (Vitamin D3) [Vitamin D3] 1 tab PO DAILY 06/28/19 [History] Zolpidem [Ambien] 10 mg PO BEDTIME 08/14/19 [History] oxyCODONE HCl/Acetaminophen [Percocet 5-325 mg Tablet] 1 - 2 each PO Q4H PRN # 18 tablet 09/25/19 [Rx] Past Medical History - Past Health History Medical/Surgical History: Denies Medical/Surgical History HEENT History: Reports: Glaucoma, Otitis Media Cardiovascular History: Reports: Hypertension Other Cardiovascular History: tachycardia Respiratory History: Reports: None Gastrointestinal History: Reports: Chronic Constipation, Hemorrhoids, Pancreatitis, Other (See Below) Other Gastrointestinal History: chronic pancreatitis, LUQ pain, gastric sleeve procedure, hemorrhoids Genitourinary History: Reports: UTI, Recurrent CLINICAL INFORMATICS SPECIALIST History: 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 CLINICAL INFORMATICS SPECIALIST History: c section x3, tubes tied Musculoskeletal History: Reports: Arthritis, Fracture, Other (See Below) Other Musculoskeletal History: left foot fracture, elbow pain, wrist pain, weakness, falls Neurological History: Reports: TIA, Other (See Below) Other Neuro History: pseudotumor, shunt, benign pineal brain tumor, memory loss , seizure disorder, vertigo, brain surgery x 16 Psychiatric History: Reports: Addiction, Anxiety, Depression Endocrine/Metabolic History: Reports: [place]'s Disease, Hypothyroidism, Obesity /BMI 30+, Vitamin D Deficiency Other Endocrine/Metabolic History: hyperthyroidism, hypothyroidism, hashimotos, secondary adrenal insufficiency Hematologic History: Reports: Anemia, Other (See Below) Other Hematologic History: anti TPO antibody Immunologic History: Reports: None Oncologic (Cancer) History: Reports: None Dermatologic History: Reports: Cellulitis - Infectious Disease History Infectious Disease History: Reports: C-Difficile, MRSA Other Infectious Disease History: in 2006, 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." - Past Surgical History Head Surgeries/Procedures: Reports: Shunt HEENT Surgical History: Reports: Oral Surgery Other HEENT Surgeries/Procedures: [place] teeth removal. dental extraction Cardiovascular Surgical History: Reports: None Respiratory Surgical History: Reports: None GI Surgical History: Reports: Appendectomy, Bariatric Procedure, Cholecystectomy , Colonoscopy, EGD, ERCP Other GI Surgeries/Procedures: EUS Female Surgical History: Reports: Section, Tubal Ligation Other Female Surgeries/Procedures: C-SECTIONS X3 Endocrine Surgical History: Reports: None Neurological Surgical History: 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 (See Below) Other Neurological Surgeries/Procedures: brain tumor removal Musculoskeletal Surgical History: Reports: None Other Oncologic Surgeries/Procedures: Brain tumor removal Dermatological Surgical History: Reports: None Social & Family History - Family History Family Medical History: Noncontributory Cardiac: Reports: Bypass, Hypertension, [place] Respiratory: Reports: Asthma Oncologic: Reports: Colon - Tobacco Use Smoking Status *Q: Never Smoker - Caffeine Use Caffeine Use: Reports: Coffee Other Caffeine Use: 1 cup daily - Recreational Drug Use Recreational Drug Use: No - Living Situation & Occupation Living situation: Reports: , with Spouse Occupation: Unemployed ED ROS GENERAL - Review of Systems Review Of Systems: See Below Constitutional: Reports: Weakness, Fatigue, Decreased Appetite. Denies: Fever, Chills, Malaise HEENT: Reports: No Symptoms Respiratory: Reports: No Symptoms Cardiovascular: Reports: No Symptoms Endocrine: Reports: Fatigue GI/Abdominal: Reports: Abdominal Pain, Diarrhea (Chronic diarrhea i.e. steatorrhea), Decreased Appetite. Denies: Constipation : Reports: No Symptoms Musculoskeletal: Reports: Back Pain Skin: Reports: No Symptoms Neurological: Reports: Headache (Occasional headaches has a history of pseudotumor cerebri.) Psychiatric: Reports: Anxiety, Depression (Due to chronic illness), Suicidal Ideation. Denies: Hallucinations, Homicidal Ideation, Mood Lability Hematologic/Lymphatic: Reports: No Symptoms Immunologic: Reports: No Symptoms (Due to chronic illness) ED EXAM, GI/ABD - Physical Exam Exam: See Below Exam Limited By: No Limitations General Appearance: Alert, WD/WN, Mild Distress, Other (Vital signs show temperature 36.9. Pulse is 88 and regular respiratory to 14 BP elevated 1 5283 pulse ox 97% on room air) Eyes: Bilateral: Normal Appearance (No blood flow pallor and no scleral icterus. ) Throat/Mouth: Other. No: Normal Inspection, Normal Lips, Normal Oropharynx ( Tongue is mildly dry and coated.) Head: Atraumatic, Normocephalic Neck: Normal Inspection, Supple, Non-Tender, Full Range of Motion. No: Lymphadenopathy (L), Lymphadenopathy (R) Respiratory/Chest: No Respiratory Distress, Lungs Clear, Normal Breath Sounds, No Accessory Muscle Use Cardiovascular: Normal Peripheral Pulses, Regular Rate, Rhythm, No Edema, No Gallop, No Murmur, No Rub GI/Abdominal Exam: No Organomegaly, No Abnormal Bruit, No Mass, Pelvis Stable, Guarding (Markedly tender left upper quadrant of the abdomen with guarding.), Tender, Abnormal Bowel Sounds (Bowel sounds are few and far between.). No: Rigid, Rebound Back Exam: Normal Inspection, Full Range of Motion. No: CVA Tenderness (L), CVA Tenderness (R) Extremities: Normal Inspection, Normal Range of Motion, Non-Tender, Other ( Patient is going to need a Port-A-Cath inserted or central line for surgical management.) Neurological: Alert, Oriented, CN II-XII Intact, Normal Cognition Psychiatric: Normal Affect, Normal Mood Skin Exam: Warm, Dry, Intact, Normal Color, No Rash Course - Vital Signs Last Recorded V/S: Last Vital Signs Temp 36.9 C 09/25/19 09:09 Pulse 88 09/25/19 09:09 Resp 14 09/25/19 09:09 BP 152/83 H 09/25/19 09:09 Pulse Ox 97 09/25/19 09:09 - Orders/Labs/Meds Meds: Medications Discontinued Medications Generic Name Dose Route Start Last Admin Trade Name Dominic PRN Reason Stop Dose Admin Hydrocortisone Sodium Succinate 50 mg 09/25/19 09:22 09/25/19 09:39 Solu-Cortef IM 09/25/19 09:23 50 mg ONETIME ONE Administration Hydromorphone HCl 2 mg 09/25/19 09:23 09/25/19 09:41 Dilaudid IM 09/25/19 09:24 2 mg ONETIME ONE Administration Promethazine HCl 37.5 mg 09/25/19 09:23 09/25/19 09:40 Phenergan IM 09/25/19 09:24 37.5 mg ONETIME ONE Administration - Radiology Interpretation Free Text/Narrative:: 44-year-old female attends the ED in regards to recurrence of left upper quadrant epigastric abdominal pain radiating through to her left back inferior to the scapula. She has been suffering from chronic relapsing pancreatitis for the last 3-1/2-4 years. She is here today seeking medication for nausea relief and pain management. Given 37.5 mg of Phenergan IM with Dilaudid 2 mg IM. Also given 50 mg of hydrocortisone to make sure she has adequate steroid on board for surgery as she may not been able to retain her cortisol tablet the last few days. She is heading for [place] today for preoperative assessment tomorrow and tentatively surgery sometime this week for partial pancreatectomy versus Whipple's procedure. Departure - Departure Time of Disposition: 09:45 Disposition: Home, Self-Care 01 Condition: Fair Clinical Impression: Chronic relapsing pancreatitis - Discharge Information *PRESCRIPTION DRUG MONITORING PROGRAM REVIEWED*: No *COPY OF PRESCRIPTION DRUG MONITORING REPORT IN PATIENT ALE: No Prescriptions: oxyCODONE HCl/Acetaminophen [Percocet 5-325 mg Tablet] 1 - 2 each PO Q4H PRN # 18 tablet PRN Reason: pain relief. Instructions: Chronic Pancreatitis Referrals: Farzaneh Smith MD [Primary Care Provider] - Forms: ED Department Discharge Additional Instructions: Evaluation the emergency room this morning in regards to history of chronic relapsing pancreatitis with continuous left upper quadrant abdominal pain and associated nausea vomiting. On her way to [place] for potential Whipple's procedure to remove diseased portion of pancreas and perhaps portions of stomach gallbladder and liver. Since you may not have been able to keep down your hydrocortisone tablet you were given 50 mg of hydrocortisone intramuscularly with Dilaudid 2 mg IM and Phenergan 37.5 mg IM for nausea and vomiting relief. For Percocet 5/3/25 milligram tabs one or 2 every 4-6 hours needed for pain relief.
== END 2019-09-25 10:15 | disposition home or self-care (01) ==
LOC: JD.ED 08:51
DX: K86.1 Other chronic pancreatitis (principal); F41.9 Anxiety disorder, unspecified; F32.9 Major depressive disorder, single episode, unspecified; E03.9 Hypothyroidism, unspecified; I10 Essential (primary) hypertension; Z79.899 Other long term (current) drug therapy; Z88.8 Allergy status to other drugs, medicaments and biological substances
CPT/HCPCS: 96372; 99283; J1170; J1720; J2550

== ENCOUNTER 2019-10-11 08:16 | Emergency (ER) | payer BC, MEDICARE ==
[2019-10-11 08:33] VITALS: BP 173/97; PULSE 92
[2019-10-11] MEDS ORDERED: Promethazine 25 MG/ML SDV IM ONE (09:29)
[2019-10-11] MEDS ORDERED: HYDROmorphone 1 MG/ML Syringe IM ONE (09:29)
[2019-10-11] MEDS ORDERED: Ketorolac 60 MG/2 ML SDV IM ONE (09:31)
--- NOTE | 2019-10-11 09:52 | EDM.PDOC ---
<Kassandra Khoury - Last Filed: 10/11/19 09:46> ED HPI GENERAL MEDICAL PROBLEM - General Chief Complaint: Abdominal Pain Stated Complaint: PANCREATITIS Time Seen by Provider: 10/11/19 08:59 Source of Information: Reports: Patient History Limitations: Reports: No Limitations - History of Present Illness INITIAL COMMENTS - FREE TEXT/NARRATIVE: 44 year old white female with complaints of abdominal pain. Pt has a history of chronic pancreatitis with freqent ED visits for this. Pt reports that she has had increasing left upper quadrant abdominal pain of the past two days that has worsened. She says that is now radiates to her back. She did vomit once this morning and then decided to come to the ED. Pt states that she was supposed to have the Whipple procedure done but then had a reaction to Creon. Because of this she can no longer have the Whipple because she would need to be on Creon after and this is now not an option, so her doctor's in [place] told her that she will need to be on lifelong narcotics. She is currently in search of a pain doctor who will take her on as a patient. As of right now the patient states that she does not have any pain or nausea medication at home. She has not seen her regular provider, Dr. Smith recently and that she needs to schedule an appt. Abdomen Pain Score (Numeric/FACES): 8 - Related Data Allergies Allergy/AdvReac Type Severity Reaction Status Date / Time amylase [From Creon] Allergy Rash Verified 10/11/19 08:33 buprenorphine [From Butrans] Allergy Itching Verified 10/11/19 08:33 lipase [From Creon] Allergy Rash Verified 10/11/19 08:33 metoclopramide HCl Allergy Itching Verified 10/11/19 08:33 [From Reglan] protease [From Creon] Allergy Rash Verified 10/11/19 08:33 ketorolac [From Toradol] AdvReac Bleeding Verified 10/11/19 08:33 NSAIDS (Non-Steroidal AdvReac Abdominal Verified 10/11/19 08:33 Anti-Inflamma Pain prochlorperazine AdvReac Vomiting Verified 10/11/19 08:33 [From Compazine] Home Meds: Home Meds Mirtazapine 30 mg PO BEDTIME 03/14/19 [History] Pantoprazole Sodium [Protonix] 40 mg PO BID 03/14/19 [History] Prazosin HCl [Prazosin] 5 mg PO BEDTIME 03/14/19 [History] Vortioxetine [Trintellix] 10 mg PO DAILY 03/14/19 [History] ALPRAZolam [Alprazolam] 0.5 mg PO BID PRN 05/15/19 [History] Ferrous Sulfate [Iron] 650 mg PO BID 05/15/19 [History] QUEtiapine Fumarate [Quetiapine Fumarate] 75 mg PO BEDTIME 05/15/19 [History] Cholecalciferol (Vitamin D3) [Vitamin D3] 1 tab PO DAILY 06/28/19 [History] Zolpidem [Ambien] 10 mg PO BEDTIME 08/14/19 [History] Hydrocortisone [Cortef] 5 mg PO 1300 10/11/19 [History] Hydrocortisone [Cortef] 15 mg PO DAILY 10/11/19 [History] Levothyroxine 175 mcg PO ACBREAKFAST 10/11/19 [History] Past Medical History - Past Health History Medical/Surgical History: Denies Medical/Surgical History HEENT History: Reports: Glaucoma, Otitis Media Cardiovascular History: Reports: Hypertension Other Cardiovascular History: tachycardia Respiratory History: Reports: None Gastrointestinal History: Reports: Chronic Constipation, Hemorrhoids, Pancreatitis, Other (See Below) Other Gastrointestinal History: chronic pancreatitis, LUQ pain, gastric sleeve procedure, hemorrhoids Genitourinary History: Reports: UTI, Recurrent 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 HORTICULTURE INSTRUCTOR History: c section x3, tubes tied Musculoskeletal History: Reports: Arthritis, Fracture, Other (See Below) Other Musculoskeletal History: left foot fracture, elbow pain, wrist pain, weakness, falls Neurological History: Reports: TIA, Other (See Below) Other Neuro History: pseudotumor, shunt, benign pineal brain tumor, memory loss , seizure disorder, vertigo, brain surgery x 16 Psychiatric History: Reports: Addiction, Anxiety, Depression 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, Hypothyroidism, Obesity /BMI 30+, Vitamin D Deficiency Other Endocrine/Metabolic History: hyperthyroidism, hypothyroidism, hashimotos, secondary adrenal insufficiency Hematologic History: Reports: Anemia, Other (See Below) Other Hematologic History: anti TPO antibody Immunologic History: Reports: None Oncologic (Cancer) History: Reports: None Dermatologic History: Reports: Cellulitis - Infectious Disease History Infectious Disease History: Reports: C-Difficile, MRSA Other Infectious Disease History: in 2006, 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 dental extraction Cardiovascular Surgical History: Reports: None Respiratory Surgical History: Reports: None GI Surgical History: Reports: Appendectomy, Bariatric Procedure, Cholecystectomy , Colonoscopy, EGD, ERCP Other GI Surgeries/Procedures: EUS Female Surgical History: Reports: Section, Tubal Ligation Other Female Surgeries/Procedures: C-SECTIONS X3 Endocrine Surgical History: Reports: None Neurological Surgical History: 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 (See Below) Other Neurological Surgeries/Procedures: brain tumor removal Musculoskeletal Surgical History: Reports: None Other Oncologic Surgeries/Procedures: Brain tumor removal Dermatological Surgical History: Reports: None Social & Family History - Family History Family Medical History: Noncontributory Cardiac: Reports: Bypass, Hypertension, [place] Respiratory: Reports: Asthma Oncologic: Reports: Colon - Tobacco Use Smoking Status *Q: Never Smoker - Caffeine Use Caffeine Use: Reports: None Other Caffeine Use: 1 cup daily - Recreational Drug Use Recreational Drug Use: No - Living Situation & Occupation Living situation: Reports: , with Spouse Occupation: Unemployed ED ROS GENERAL - Review of Systems Review Of Systems: See Below Constitutional: Reports: No Symptoms HEENT: Reports: No Symptoms Respiratory: Reports: No Symptoms Cardiovascular: Reports: No Symptoms Endocrine: Reports: No Symptoms GI/Abdominal: Reports: Abdominal Pain (left upper quadrant with radiation to back), Mucous in Stool. Denies: Black Stool, Bloody Stool, Constipation, Diarrhea : Reports: No Symptoms Skin: Reports: No Symptoms Neurological: Reports: No Symptoms Psychiatric: Reports: No Symptoms Hematologic/Lymphatic: Reports: No Symptoms Immunologic: Reports: No Symptoms ED EXAM, GI/ABD - Physical Exam Exam: See Below Exam Limited By: No Limitations General Appearance: Alert, WD/WN, No Apparent Distress Ears: Normal External Exam, Hearing Grossly Normal Nose: Normal Inspection Throat/Mouth: Normal Inspection, Normal Lips, Normal Voice, No Airway Compromise Head: Atraumatic, Normocephalic Neck: Normal Inspection Respiratory/Chest: No Respiratory Distress, Lungs Clear, Normal Breath Sounds, No Accessory Muscle Use, Chest Non-Tender Cardiovascular: Normal Peripheral Pulses, Regular Rate, Rhythm, No Edema, No Murmur GI/Abdominal Exam: Normal Bowel Sounds, Soft, Tender (left upper quadrant tender with palpation) (Female) Exam: Deferred Rectal (Female) Exam: Deferred Back Exam: Normal Inspection, Full Range of Motion Extremities: Normal Inspection, Normal Range of Motion, Normal Capillary Refill Neurological: Alert, Oriented, Normal Cognition Psychiatric: Normal Affect, Normal Mood Skin Exam: Warm, Dry, Intact, Normal Color, No Rash Lymphatic: No Adenopathy Course - Vital Signs Last Recorded V/S: Last Vital Signs Temp 97.0 F 10/11/19 08:30 Pulse 92 10/11/19 08:30 Resp 16 10/11/19 08:30 BP 173/97 H 10/11/19 08:30 Pulse Ox 100 10/11/19 08:30 - Orders/Labs/Meds Meds: Medications Discontinued Medications Generic Name Dose Route Start Last Admin Trade Name Jean-Pierreq PRN Reason Stop Dose Admin Hydromorphone HCl 1 mg 10/11/19 09:29 10/11/19 09:43 Dilaudid IM 10/11/19 09:30 1 mg ONETIME ONE Administration Ketorolac Tromethamine 60 mg 10/11/19 09:31 10/11/19 09:45 Toradol IM 10/11/19 09:32 60 mg ONETIME ONE Administration Promethazine HCl 50 mg 10/11/19 09:29 10/11/19 09:43 Phenergan IM 10/11/19 09:30 50 mg ONETIME ONE Administration Departure - Departure Disposition: Home, Self-Care 01 Clinical Impression: Abdominal pain Qualifiers: Abdominal location: upper abdomen, unspecified Qualified Code(s): R10.10 - Upper abdominal pain, unspecified - Discharge Information Instructions: Abdominal Pain, Adult Referrals: Farzaneh Smith MD [Primary Care Provider] - Forms: ED Department Discharge Additional Instructions: Clear liquids until this evening, than very careful bland diet as tolerated, follow-up with Dr. Smith and your other medical providers as needed. <Darien Barrios - Last Filed: 10/11/19 14:59> Course - Re-Assessments/Exams Free Text/Narrative Re-Assessment/Exam: 10/11/19 14:59 Initial hx and exam was done by Kassandra Fitzpatrick, [employer] student. I have also interviewed and evaluated patient. Discharge instr. as documented. Departure - Departure Time of Disposition: 09:54 Condition: Fair
== END 2019-10-11 09:59 | disposition home or self-care (01) ==
LOC: JD.ED 08:16
DX: R10.12 Left upper quadrant pain (principal); I10 Essential (primary) hypertension; E03.9 Hypothyroidism, unspecified; E66.9 Obesity, unspecified; Z88.8 Allergy status to other drugs, medicaments and biological substances; Z88.6 Allergy status to analgesic agent; Z86.73 Personal history of transient ischemic attack (TIA), and cerebral infarction without residual deficits; Z79.890 Hormone replacement therapy; Z68.37 Body mass index [BMI] 37.0-37.9, adult
CPT/HCPCS: 96372; 99283; J1170; J1885; J2550

== ENCOUNTER 2019-10-16 13:52 | Emergency (ER) | payer BC, MEDICARE ==
[2019-10-16 14:07] VITALS: BP 155/92; PULSE 103
[2019-10-16] MEDS ORDERED: Promethazine 25 MG/ML SDV IM ONE (14:22)
[2019-10-16] MEDS ORDERED: HYDROmorphone 1 MG/ML Syringe IM ONE (14:22)
--- NOTE | 2019-10-16 14:39 | EDM.PDOC ---
ED HPI GENERAL MEDICAL PROBLEM - General Chief Complaint: Abdominal Pain Stated Complaint: PANCREATITIS Time Seen by Provider: 10/16/19 14:05 Source of Information: Reports: Patient, RN Notes Reviewed History Limitations: Reports: No Limitations - History of Present Illness INITIAL COMMENTS - FREE TEXT/NARRATIVE: Patient is a 44-year-old female who presents to the ED for left upper quadrant pain. The patient is well-known to this ER for chronic pancreatitis. The patient notes that her pain is quite similar to her normal pancreatitis pain, however it has intensified. She states this morning she has been nauseated and vomiting, so much so she cannot keep any fluids down at this time. She states again that her pain is similar to pain in the past however it is worse than normal. Patient did try to drink some fluids and try to stay home at in bed, but was unable to do so as she did not have any nausea medications at home. Patient was supposed to have some sort of procedure done on her pancreas, however she could not tolerate the enzymes she needed to be on, so she cannot have the surgery. She states she has been trying to find pain management, but she has not been able to find a provider that would like to have the patient for pancreatitis. Patient denies any chest pain, shortness of breath, diarrhea out of the ordinary for herself. She notes that her pain is in her left upper quadrant, and radiates into her back. She further notes she does not have any chronic back issues that are causing pain today. She denies any dysuria, urinary frequency or urgency. Lower Back Pain Score (Numeric/FACES): 10 - Related Data Allergies Allergy/AdvReac Type Severity Reaction Status Date / Time amylase [From Creon] Allergy Rash Verified 10/16/19 14:07 buprenorphine [From Butrans] Allergy Itching Verified 10/16/19 14:07 lipase [From Creon] Allergy Rash Verified 10/16/19 14:07 metoclopramide HCl Allergy Itching Verified 10/16/19 14:07 [From Reglan] protease [From Creon] Allergy Rash Verified 10/16/19 14:07 ketorolac [From Toradol] AdvReac Bleeding Verified 10/16/19 14:07 NSAIDS (Non-Steroidal AdvReac Abdominal Verified 10/16/19 14:07 Anti-Inflamma Pain prochlorperazine AdvReac Vomiting Verified 10/16/19 14:07 [From Compazine] Home Meds: Home Meds Mirtazapine 30 mg PO BEDTIME 03/14/19 [History] Pantoprazole Sodium [Protonix] 40 mg PO BID 03/14/19 [History] Prazosin HCl [Prazosin] 5 mg PO BEDTIME 03/14/19 [History] Vortioxetine [Trintellix] 10 mg PO DAILY 03/14/19 [History] ALPRAZolam [Alprazolam] 0.5 mg PO BID PRN 05/15/19 [History] Ferrous Sulfate [Iron] 650 mg PO BID 05/15/19 [History] QUEtiapine Fumarate [Quetiapine Fumarate] 75 mg PO BEDTIME 05/15/19 [History] Cholecalciferol (Vitamin D3) [Vitamin D3] 1 tab PO DAILY 06/28/19 [History] Zolpidem [Ambien] 10 mg PO BEDTIME 08/14/19 [History] Hydrocortisone [Cortef] 5 mg PO 1300 10/11/19 [History] Hydrocortisone [Cortef] 15 mg PO DAILY 10/11/19 [History] Levothyroxine 175 mcg PO ACBREAKFAST 10/11/19 [History] Promethazine [Phenergan] 25 mg PO Q4H PRN #28 tab 10/16/19 [Rx] Past Medical History - Past Health History Medical/Surgical History: Denies Medical/Surgical History HEENT History: Reports: Glaucoma, Otitis Media Cardiovascular History: Reports: Hypertension Other Cardiovascular History: tachycardia Respiratory History: Reports: None Gastrointestinal History: Reports: Chronic Constipation, Hemorrhoids, Pancreatitis, Other (See Below) Other Gastrointestinal History: chronic pancreatitis, LUQ pain, gastric sleeve procedure, hemorrhoids Genitourinary History: Reports: UTI, Recurrent 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 History: c section x3, tubes tied Musculoskeletal History: Reports: Arthritis, Fracture, Other (See Below) Other Musculoskeletal History: left foot fracture, elbow pain, wrist pain, weakness, falls Neurological History: Reports: TIA, Other (See Below) Other Neuro History: pseudotumor, shunt, benign pineal brain tumor, memory loss , seizure disorder, vertigo, brain surgery x 16 Psychiatric History: Reports: Addiction, Anxiety, Depression Endocrine/Metabolic History: Reports: [place]'s Disease, Hypothyroidism, Obesity /BMI 30+, Vitamin D Deficiency Other Endocrine/Metabolic History: hyperthyroidism, hypothyroidism, hashimotos, secondary adrenal insufficiency Hematologic History: Reports: Anemia, Other (See Below) Other Hematologic History: anti TPO antibody Immunologic History: Reports: None Oncologic (Cancer) History: Reports: None Dermatologic History: Reports: Cellulitis - Infectious Disease History Infectious Disease History: Reports: C-Difficile, MRSA Other Infectious Disease History: in 2006, 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." - Past Surgical History Head Surgeries/Procedures: Reports: Shunt HEENT Surgical History: Reports: Oral Surgery Other HEENT Surgeries/Procedures: [place] teeth removal. dental extraction Cardiovascular Surgical History: Reports: None Respiratory Surgical History: Reports: None GI Surgical History: Reports: Appendectomy, Bariatric Procedure, Cholecystectomy , Colonoscopy, EGD, ERCP Other GI Surgeries/Procedures: EUS Female Surgical History: Reports: Section, Tubal Ligation Other Female Surgeries/Procedures: C-SECTIONS X3 Endocrine Surgical History: Reports: None Neurological Surgical History: 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 (See Below) Other Neurological Surgeries/Procedures: brain tumor removal Musculoskeletal Surgical History: Reports: None Other Oncologic Surgeries/Procedures: Brain tumor removal Dermatological Surgical History: Reports: None Social & Family History - Family History Family Medical History: Noncontributory Cardiac: Reports: Bypass, Hypertension, [place] Respiratory: Reports: Asthma Oncologic: Reports: Colon - Caffeine Use Caffeine Use: Reports: None Other Caffeine Use: 1 cup daily - Living Situation & Occupation Living situation: Reports: , with Spouse Occupation: Unemployed ED ROS GENERAL - Review of Systems Review Of Systems: See Below Constitutional: Denies: Fever, Chills Respiratory: Denies: Shortness of Breath Cardiovascular: Denies: Chest Pain GI/Abdominal: Reports: Abdominal Pain (LUQ, chronic, with radiation to back), Diarrhea (WNL for her disease process), Nausea, Vomiting : Denies: Dysuria, Frequency, Urgency Musculoskeletal: Denies: Back Pain ED EXAM, GI/ABD - Physical Exam Exam: See Below Exam Limited By: No Limitations General Appearance: Alert, WD/WN, No Apparent Distress (pt is able to talk with me in normal sentences, does not appear to be in a gross amount of pain.) Eyes: Bilateral: Normal Appearance Throat/Mouth: Normal Inspection, Normal Lips, Normal Teeth, Normal Gums, Normal Oropharynx, Normal Voice, No Airway Compromise Head: Atraumatic, Other Neck: Normal Inspection Respiratory/Chest: No Respiratory Distress, Lungs Clear, Normal Breath Sounds, No Accessory Muscle Use, Chest Non-Tender Cardiovascular: Normal Peripheral Pulses, Regular Rate, Rhythm, No Murmur GI/Abdominal Exam: Normal Bowel Sounds, Soft, No Distention, No Mass, Tender ( LUQ and over epigastrium) Extremities: Normal Inspection, Normal Capillary Refill Neurological: Alert, Oriented, Normal Cognition, No Motor/Sensory Deficits Psychiatric: Normal Affect, Normal Mood Skin Exam: Warm, Dry, Intact, Normal Color, No Rash Course - Vital Signs Last Recorded V/S: Last Vital Signs Temp 98.4 F 10/16/19 14:05 Pulse 103 H 10/16/19 14:05 Resp 18 10/16/19 14:05 BP 155/92 H 10/16/19 14:05 Pulse Ox 100 10/16/19 14:05 - Orders/Labs/Meds Meds: Medications Discontinued Medications Generic Name Dose Route Start Last Admin Trade Name Dominic PRN Reason Stop Dose Admin Hydromorphone HCl 2 mg 10/16/19 14:22 Dilaudid IM 10/16/19 14:23 ONETIME ONE Promethazine HCl 37.5 mg 10/16/19 14:22 Phenergan IM 10/16/19 14:23 ONETIME ONE - Re-Assessments/Exams Free Text/Narrative Re-Assessment/Exam: 10/16/19 14:37 Patient presents to the ED for evaluation of upper abdominal pain. Patient comes to the ER for nausea and pain control, she states that " she does not need me to reinvent the wheel." Prior records show that she does receive relief from IM Phenergan and Dilaudid, will order 2 mg IM Dilaudid and 37.5 mg IM Phenergan for initial management. Patient has safely taken these doses in the past, and due to her chronic opioid use, I believe this dose is appropriate. Patient states she did run out of her nausea medications at home, and I will provide her with some Phenergan tablets for home use. She was grateful for this. We will discharge her home after the meds have been given. Departure - Departure Time of Disposition: 14:39 Disposition: Home, Self-Care 01 Condition: Fair Clinical Impression: LUQ abdominal pain, Nausea and vomiting in adult - Discharge Information *PRESCRIPTION DRUG MONITORING PROGRAM REVIEWED*: Yes *COPY OF PRESCRIPTION DRUG MONITORING REPORT IN PATIENT ALE: No Prescriptions: Promethazine [Phenergan] 25 mg PO Q4H PRN #28 tab PRN Reason: Nausea Instructions: Abdominal Pain, Adult, [id number] Referrals: Farzaneh Smith MD [Primary Care Provider] - Additional Instructions: You were seen in the ER today regarding your left upper quadrant abdominal pain , with associated nausea and vomiting. You were given IM Dilaudid and IM Phenergan, this did seem to help relieve your symptoms quite well. You were given a prescription for p.o. Phenergan, please take as directed for further nausea relief. Stick to a clear liquid diet for the next day or 2, and then carefully advanced to bland as tolerated. Please return to the ER if your symptoms should change or worsen in any way.
== END 2019-10-16 15:19 | disposition home or self-care (01) ==
LOC: JD.ED 13:52
DX: R10.12 Left upper quadrant pain (principal); R11.2 Nausea with vomiting, unspecified; I10 Essential (primary) hypertension; E03.9 Hypothyroidism, unspecified; E66.9 Obesity, unspecified; F41.9 Anxiety disorder, unspecified; F32.9 Major depressive disorder, single episode, unspecified; Z88.8 Allergy status to other drugs, medicaments and biological substances; Z88.6 Allergy status to analgesic agent; Z79.899 Other long term (current) drug therapy; Z86.73 Personal history of transient ischemic attack (TIA), and cerebral infarction without residual deficits; Z79.890 Hormone replacement therapy; Z68.37 Body mass index [BMI] 37.0-37.9, adult
CPT/HCPCS: 96372; 99283; J1170; J2550

== ENCOUNTER 2019-10-18 08:15 | Emergency (ER) | payer BC, MEDICARE ==
[2019-10-18 08:40] VITALS: BP 156/82; PULSE 99
[2019-10-18] MEDS ORDERED: Promethazine 25 MG/ML SDV IM ONE (08:49)
[2019-10-18] MEDS ORDERED: HYDROmorphone 0.5 MG/0.5 ML Syringe IM ONE (08:50)
--- NOTE | 2019-10-18 08:56 | EDM.PDOC ---
ED HPI GENERAL MEDICAL PROBLEM - General Chief Complaint: Abdominal Pain Stated Complaint: ABDOMINAL PAIN Time Seen by Provider: 10/18/19 08:36 Source of Information: Reports: Patient History Limitations: Reports: No Limitations - History of Present Illness INITIAL COMMENTS - FREE TEXT/NARRATIVE: Patient is a 44-year-old female who presents with complaints of left upper quadrant pain. This is a chronic condition for her and she is well-known to this ER for her chronic pancreatitis. She states her symptoms worsened yesterday. She does not have pain medications at home medication. She has been using Benadryl for pain and Phenergan for nausea. She did take the Phenergan last night and that helped with her nausea however the pain is not easing up. She has been in search of a pain management doctor however she has been turned down thus far as they do not manage patient's of pancreatitis. She does have a GI specialist at [facility] who was going to do a surgery at the beginning of August however they were unable to do so as the Creon that she would need to take the rest of her life caused her to have GI bleeds. Her primary care provider is Dr. Smith she has an appointment scheduled her for the end of the month, however she was unable to get in sooner than that. She states that she is looking into a different primary care provider at this time as she states she has been having a lot of difficulty getting into appointments with her provider. She states that the symptoms she is experiencing today are similar to her chronic symptoms and does not feel that she needs an additional workup such as lab work or CT since this has been ongoing issue for her. Left Abdomen Pain Score (Numeric/FACES): 9 - Related Data Allergies Allergy/AdvReac Type Severity Reaction Status Date / Time amylase [From Creon] Allergy Rash Verified 10/18/19 08:39 buprenorphine [From Butrans] Allergy Itching Verified 10/18/19 08:39 lipase [From Creon] Allergy Rash Verified 10/18/19 08:39 metoclopramide HCl Allergy Itching Verified 10/18/19 08:39 [From Reglan] protease [From Creon] Allergy Rash Verified 10/18/19 08:39 ketorolac [From Toradol] AdvReac Bleeding Verified 10/18/19 08:39 NSAIDS (Non-Steroidal AdvReac Abdominal Verified 10/18/19 08:39 Anti-Inflamma Pain prochlorperazine AdvReac Vomiting Verified 10/18/19 08:39 [From Compazine] Home Meds: Home Meds Mirtazapine 30 mg PO BEDTIME 03/14/19 [History] Pantoprazole Sodium [Protonix] 40 mg PO BID 03/14/19 [History] Prazosin HCl [Prazosin] 5 mg PO BEDTIME 03/14/19 [History] Vortioxetine [Trintellix] 10 mg PO DAILY 03/14/19 [History] ALPRAZolam [Alprazolam] 0.5 mg PO BID PRN 05/15/19 [History] Ferrous Sulfate [Iron] 650 mg PO BID 05/15/19 [History] QUEtiapine Fumarate [Quetiapine Fumarate] 75 mg PO BEDTIME 05/15/19 [History] Cholecalciferol (Vitamin D3) [Vitamin D3] 1 tab PO DAILY 06/28/19 [History] Zolpidem [Ambien] 10 mg PO BEDTIME 08/14/19 [History] Hydrocortisone [Cortef] 5 mg PO 1300 10/11/19 [History] Hydrocortisone [Cortef] 15 mg PO DAILY 10/11/19 [History] Levothyroxine 175 mcg PO ACBREAKFAST 10/11/19 [History] Promethazine [Phenergan] 25 mg PO Q4H PRN #28 tab 10/16/19 [Rx] Past Medical History - Past Health History Medical/Surgical History: Denies Medical/Surgical History HEENT History: Reports: Glaucoma, Otitis Media Cardiovascular History: Reports: Hypertension Other Cardiovascular History: tachycardia Respiratory History: Reports: None Gastrointestinal History: Reports: Chronic Constipation, Hemorrhoids, Pancreatitis, Other (See Below) Other Gastrointestinal History: chronic pancreatitis, LUQ pain, gastric sleeve procedure, hemorrhoids Genitourinary History: Reports: UTI, Recurrent FIELD COIL WINDER History: 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 FIELD COIL WINDER History: c section x3, tubes tied Musculoskeletal History: Reports: Arthritis, Fracture, Other (See Below) Other Musculoskeletal History: left foot fracture, elbow pain, wrist pain, weakness, falls Neurological History: Reports: TIA, Other (See Below) Other Neuro History: pseudotumor, shunt, benign pineal brain tumor, memory loss , seizure disorder, vertigo, brain surgery x 16 Psychiatric History: Reports: Addiction, Anxiety, Depression 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, Hypothyroidism, Obesity /BMI 30+, Vitamin D Deficiency Other Endocrine/Metabolic History: hyperthyroidism, hypothyroidism, hashimotos, secondary adrenal insufficiency Hematologic History: Reports: Anemia, Other (See Below) Other Hematologic History: anti TPO antibody Immunologic History: Reports: None Oncologic (Cancer) History: Reports: None Dermatologic History: Reports: Cellulitis - Infectious Disease History Infectious Disease History: Reports: C-Difficile, MRSA Other Infectious Disease History: in 2006, 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 dental extraction Cardiovascular Surgical History: Reports: None Respiratory Surgical History: Reports: None GI Surgical History: Reports: Appendectomy, Bariatric Procedure, Cholecystectomy , Colonoscopy, EGD, ERCP Other GI Surgeries/Procedures: EUS Female Surgical History: Reports: Section, Tubal Ligation Other Female Surgeries/Procedures: C-SECTIONS X3 Endocrine Surgical History: Reports: None Neurological Surgical History: 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 (See Below) Other Neurological Surgeries/Procedures: brain tumor removal Musculoskeletal Surgical History: Reports: None Other Oncologic Surgeries/Procedures: Brain tumor removal Dermatological Surgical History: Reports: None Social & Family History - Family History Family Medical History: Noncontributory Cardiac: Reports: Bypass, Hypertension, [place] Respiratory: Reports: Asthma Oncologic: Reports: Colon - Caffeine Use Caffeine Use: Reports: None Other Caffeine Use: 1 cup daily - Living Situation & Occupation Living situation: Reports: , with Spouse Occupation: Unemployed ED ROS GENERAL - Review of Systems Review Of Systems: See Below Constitutional: Reports: No Symptoms. Denies: Fever, Chills HEENT: Reports: No Symptoms Respiratory: Reports: No Symptoms Cardiovascular: Reports: No Symptoms Endocrine: Reports: No Symptoms GI/Abdominal: Reports: Abdominal Pain, Nausea, Vomiting. Denies: Diarrhea : Reports: No Symptoms Musculoskeletal: Reports: No Symptoms Skin: Reports: No Symptoms Neurological: Reports: No Symptoms Psychiatric: Reports: No Symptoms Hematologic/Lymphatic: Reports: No Symptoms Immunologic: Reports: No Symptoms ED EXAM, GI/ABD - Physical Exam Exam: See Below Exam Limited By: No Limitations General Appearance: Alert, WD/WN, Mild Distress Respiratory/Chest: No Respiratory Distress, Lungs Clear, Normal Breath Sounds, No Accessory Muscle Use, Chest Non-Tender Cardiovascular: Normal Peripheral Pulses, Regular Rate, Rhythm, No Murmur GI/Abdominal Exam: Normal Bowel Sounds, Soft, No Distention, No Mass, Tender ( LUQ) Neurological: Alert, Oriented, Normal Cognition Psychiatric: Normal Affect, Normal Mood Skin Exam: Warm, Dry, Normal Color, No Rash Course - Vital Signs Last Recorded V/S: Last Vital Signs Temp 97.7 F 10/18/19 08:36 Pulse 99 10/18/19 08:36 Resp 18 10/18/19 08:36 BP 156/82 H 10/18/19 08:36 Pulse Ox 97 10/18/19 08:36 - Orders/Labs/Meds Meds: Medications Discontinued Medications Generic Name Dose Route Start Last Admin Trade Name Dominic PRN Reason Stop Dose Admin Hydromorphone HCl 2 mg 10/18/19 08:50 10/18/19 09:11 Dilaudid IM 10/18/19 08:51 2 mg ONETIME ONE Administration Promethazine HCl 37.5 mg 10/18/19 08:49 10/18/19 09:11 Phenergan IM 10/18/19 08:50 37.5 mg ONETIME ONE Administration - Re-Assessments/Exams Free Text/Narrative Re-Assessment/Exam: Patient presents to the emergency Department today with complaints of left upper quadrant pain radiating through to her back, as well as nausea and vomiting. These are fairly common symptoms for her as she has chronic pancreatitis. She does not want any laboratory or radiologic testing done today as she states her symptoms are her typical symptoms. She does not have pain medications at home and has not been able to obtain a pain management doctor. She states that the medications she received when she was here approximate 2 days ago worked well for her. We will repeat Dilaudid 2 mg IM as well as Phenergan 37.5 mg IM. If patient has relief from these medications she' ll be discharged home to follow up with her primary care provider and her specialist as needed. Free Text/Narrative Re-Assessment/Exam: 10/18/19 0955 Patient did verbalize relief from pain and nausea after the medication administration. She is ready to be discharged home at this time. Discharge instructions as noted. Departure - Departure Time of Disposition: 09:58 Disposition: Home, Self-Care 01 Condition: Fair Clinical Impression: Chronic recurrent pancreatitis - Discharge Information *PRESCRIPTION DRUG MONITORING PROGRAM REVIEWED*: No *COPY OF PRESCRIPTION DRUG MONITORING REPORT IN PATIENT ALE: No Instructions: Chronic Pancreatitis Referrals: Farzaneh Smith MD [Primary Care Provider] - Forms: ED Department Discharge Additional Instructions: You were seen in the emergency Department today with complaints of left upper quadrant abdominal pain as well as nausea and vomiting. You received Dilaudid and Phenergan IM which you stated did significantly improve your symptoms. We recommend that you maintain a clear liquid diet for the next 2 days and then advance as tolerated, use your Phenergan as needed for nausea, and keep your appointment with Dr. Smith at the end of the month. If you should expense any new or worsening symptoms, please do not hesitate to return to the emergency department.
== END 2019-10-18 10:32 | disposition home or self-care (01) ==
LOC: JD.ED 08:15
DX: K86.1 Other chronic pancreatitis (principal); I10 Essential (primary) hypertension; E03.9 Hypothyroidism, unspecified; E05.90 Thyrotoxicosis, unspecified without thyrotoxic crisis or storm; E66.9 Obesity, unspecified; F32.9 Major depressive disorder, single episode, unspecified; F41.9 Anxiety disorder, unspecified; Z88.1 Allergy status to other antibiotic agents; Z88.6 Allergy status to analgesic agent; Z88.8 Allergy status to other drugs, medicaments and biological substances; Z79.899 Other long term (current) drug therapy; Z79.890 Hormone replacement therapy; Z86.73 Personal history of transient ischemic attack (TIA), and cerebral infarction without residual deficits; Z91.018 Allergy to other foods
CPT/HCPCS: 96372; 99283; J1170; J2550

== ENCOUNTER 2019-10-20 13:10 | Emergency (ER) | payer BC, MEDICARE ==
[2019-10-20 14:09] VITALS: BP 169/104; PULSE 84
[2019-10-20] MEDS ORDERED: Promethazine 25 MG/ML SDV IM ONE (14:51)
[2019-10-20] MEDS ORDERED: HYDROmorphone 1 MG/ML Syringe IM ONE (14:51)
--- NOTE | 2019-10-20 15:03 | EDM.PDOC ---
ED HPI GENERAL MEDICAL PROBLEM - General Chief Complaint: Abdominal Pain Stated Complaint: ABDOMINAL PAIN Time Seen by Provider: 10/20/19 14:48 Source of Information: Reports: Patient, Old Records, RN Notes Reviewed History Limitations: Reports: No Limitations - History of Present Illness INITIAL COMMENTS - FREE TEXT/NARRATIVE: Patient is a 44-year-old female who presents to the ED for upper abdominal pain. Patient is very well-known to this ER for chronic pancreatitis and upper abdominal pain. The patient notes that the pain does radiate to her back at times, however it is feels similar to her normal pain, but is just worse. She notes that is been quite bad for the past couple days, she has been seen a few times in this ER in the last 5 days first by myself, and 2 days ago by Lamar Nettles NP. Patient notes she gets relief from 2 mg Dilaudid and 37.5 mg of IM Phenergan normally. She has been trying to take Benadryl at home for the pain however it is not working. Patient has been having increased nausea, some emesis, and mild diarrhea, nothing that is out of the norm for her however. Patient denies any fevers or chills that she has been having. Patient does note however she has a primary care provider, Dr. Farzaneh Smith, however it is hard to get in to see her, so she has an appointment next week at the [facility] in [place] with an internal med doc for initial evaluation. Left Abdomen Pain Score (Numeric/FACES): 9 - Related Data Allergies Allergy/AdvReac Type Severity Reaction Status Date / Time amylase [From Creon] Allergy Rash Verified 10/20/19 14:09 buprenorphine [From Butrans] Allergy Itching Verified 10/20/19 14:09 lipase [From Creon] Allergy Rash Verified 10/20/19 14:09 metoclopramide HCl Allergy Itching Verified 10/20/19 14:09 [From Reglan] protease [From Creon] Allergy Rash Verified 10/20/19 14:09 ketorolac [From Toradol] AdvReac Bleeding Verified 10/20/19 14:09 NSAIDS (Non-Steroidal AdvReac Abdominal Verified 10/20/19 14:09 Anti-Inflamma Pain prochlorperazine AdvReac Vomiting Verified 10/20/19 14:09 [From Compazine] Home Meds: Home Meds Mirtazapine 30 mg PO BEDTIME 03/14/19 [History] Pantoprazole Sodium [Protonix] 40 mg PO BID 03/14/19 [History] Prazosin HCl [Prazosin] 5 mg PO BEDTIME 03/14/19 [History] Vortioxetine [Trintellix] 10 mg PO DAILY 03/14/19 [History] ALPRAZolam [Alprazolam] 0.5 mg PO BID PRN 05/15/19 [History] Ferrous Sulfate [Iron] 650 mg PO BID 05/15/19 [History] QUEtiapine Fumarate [Quetiapine Fumarate] 75 mg PO BEDTIME 05/15/19 [History] Cholecalciferol (Vitamin D3) [Vitamin D3] 1 tab PO DAILY 06/28/19 [History] Zolpidem [Ambien] 10 mg PO BEDTIME 08/14/19 [History] Hydrocortisone [Cortef] 5 mg PO 1300 10/11/19 [History] Hydrocortisone [Cortef] 15 mg PO DAILY 10/11/19 [History] Levothyroxine 175 mcg PO ACBREAKFAST 10/11/19 [History] Promethazine [Phenergan] 25 mg PO Q4H PRN #28 tab 10/16/19 [Rx] Past Medical History - Past Health History Medical/Surgical History: Denies Medical/Surgical History HEENT History: Reports: Glaucoma, Otitis Media Cardiovascular History: Reports: Hypertension Other Cardiovascular History: tachycardia Respiratory History: Reports: None Gastrointestinal History: Reports: Chronic Constipation, Hemorrhoids, Pancreatitis, Other (See Below) Other Gastrointestinal History: chronic pancreatitis, LUQ pain, gastric sleeve procedure, hemorrhoids Genitourinary History: Reports: UTI, Recurrent ENGINEERING MGR History: 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 ENGINEERING MGR History: c section x3, tubes tied Musculoskeletal History: Reports: Arthritis, Fracture, Other (See Below) Other Musculoskeletal History: left foot fracture, elbow pain, wrist pain, weakness, falls Neurological History: Reports: TIA, Other (See Below) Other Neuro History: pseudotumor, shunt, benign pineal brain tumor, memory loss , seizure disorder, vertigo, brain surgery x 16 Psychiatric History: Reports: Addiction, Anxiety, Depression Endocrine/Metabolic History: 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, Hypothyroidism, Obesity /BMI 30+, Vitamin D Deficiency Other Endocrine/Metabolic History: hyperthyroidism, hypothyroidism, hashimotos, secondary adrenal insufficiency Hematologic History: Reports: Anemia, Other (See Below) Other Hematologic History: anti TPO antibody Immunologic History: Reports: None Oncologic (Cancer) History: Reports: None Dermatologic History: Reports: Cellulitis - Infectious Disease History Infectious Disease History: Reports: C-Difficile, MRSA Other Infectious Disease History: in 2006, 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." - Past Surgical History Head Surgeries/Procedures: Reports: Shunt HEENT Surgical History: Reports: Oral Surgery Other HEENT Surgeries/Procedures: [place] teeth removal. dental extraction Cardiovascular Surgical History: Reports: None Respiratory Surgical History: Reports: None GI Surgical History: Reports: Appendectomy, Bariatric Procedure, Cholecystectomy , Colonoscopy, EGD, ERCP Other GI Surgeries/Procedures: EUS Female Surgical History: Reports: Section, Tubal Ligation Other Female Surgeries/Procedures: C-SECTIONS X3 Endocrine Surgical History: Reports: None Neurological Surgical History: 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 (See Below) Other Neurological Surgeries/Procedures: brain tumor removal Musculoskeletal Surgical History: Reports: None Other Oncologic Surgeries/Procedures: Brain tumor removal Dermatological Surgical History: Reports: None Social & Family History - Family History Family Medical History: Noncontributory Cardiac: Reports: Bypass, Hypertension, [place] Respiratory: Reports: Asthma Oncologic: Reports: Colon - Tobacco Use Smoking Status *Q: Never Smoker - Caffeine Use Caffeine Use: Reports: Coffee Other Caffeine Use: 1 cup daily - Recreational Drug Use Recreational Drug Use: No - Living Situation & Occupation Living situation: Reports: , with Spouse Occupation: Unemployed ED ROS GENERAL - Review of Systems Review Of Systems: See Below Constitutional: Reports: Decreased Appetite. Denies: Fever, Chills Respiratory: Denies: Shortness of Breath Cardiovascular: Denies: Chest Pain GI/Abdominal: Reports: Abdominal Pain (LUQ with radiation to back), Diarrhea, Nausea, Vomiting : Denies: Dysuria, Frequency, Urgency Musculoskeletal: Reports: Back Pain ED EXAM, GI/ABD - Physical Exam Exam: See Below Exam Limited By: No Limitations General Appearance: Alert, WD/WN, No Apparent Distress Eyes: Bilateral: Normal Appearance Throat/Mouth: Normal Inspection, Normal Lips, Normal Teeth, Normal Gums, Normal Oropharynx, Normal Voice, No Airway Compromise Respiratory/Chest: No Respiratory Distress, Lungs Clear, Normal Breath Sounds, No Accessory Muscle Use, Chest Non-Tender Cardiovascular: Normal Peripheral Pulses, Regular Rate, Rhythm, No Murmur GI/Abdominal Exam: Normal Bowel Sounds, Soft, No Distention, No Mass, Tender ( LUQ) Extremities: Normal Inspection, Normal Capillary Refill Neurological: Alert, Oriented, Normal Cognition, No Motor/Sensory Deficits Psychiatric: Normal Affect, Normal Mood Skin Exam: Warm, Dry, Intact, Normal Color, No Rash Course - Vital Signs Last Recorded V/S: Last Vital Signs Temp 97.2 F 10/20/19 14:04 Pulse 84 10/20/19 14:04 Resp 16 10/20/19 14:04 BP 169/104 H 10/20/19 14:04 Pulse Ox 99 10/20/19 14:04 - Orders/Labs/Meds Meds: Medications Discontinued Medications Generic Name Dose Route Start Last Admin Trade Name Dominic PRN Reason Stop Dose Admin Hydromorphone HCl 2 mg 10/20/19 14:51 10/20/19 15:01 Dilaudid IM 10/20/19 14:52 2 mg ONETIME ONE Administration Promethazine HCl 37.5 mg 10/20/19 14:51 10/20/19 15:03 Phenergan IM 10/20/19 14:52 37.5 mg ONETIME ONE Administration - Re-Assessments/Exams Free Text/Narrative Re-Assessment/Exam: 10/20/19 15:00 Patient presents to the ED for the evaluation of chronic upper abdominal pain. This pain is not changed in character from normal flares, however will repeat the 2 mg IM Dilaudid and 37.5 mg of IM Phenergan and discharge her home with general recommendations. Will reassess once the pain meds have been given time to work. Departure - Departure Time of Disposition: 15:01 Disposition: Home, Self-Care 01 Condition: Fair Clinical Impression: LUQ abdominal pain Nausea & vomiting Qualifiers: Vomiting type: unspecified Vomiting Intractability: non-intractable Qualified Code(s): R11.2 - Nausea with vomiting, unspecified - Discharge Information *PRESCRIPTION DRUG MONITORING PROGRAM REVIEWED*: Yes *COPY OF PRESCRIPTION DRUG MONITORING REPORT IN PATIENT ALE: No Instructions: Nausea and Vomiting, Adult, [id number] Referrals: Farzaneh Smith MD [Primary Care Provider] - Forms: ED Department Discharge Additional Instructions: You were seen in the ED regarding your left upper abdominal pain. Your pain was not different than your normal chronic pain, however it had worsened in intensity. You did receive IM Dilaudid and IM Phenergan, this did seem to help relieve your symptoms. Recommend you stick to a clear liquid diet and advance to bland as tolerated over the next 24 to 48 hours and increase your oral fluid intake. Try to follow-up with your specialist in [place], regarding your recurrent ER visits due to uncontrolled pain. Please return to the ER at any time if your symptoms change or worsen.
== END 2019-10-20 15:36 | disposition home or self-care (01) ==
LOC: JD.ED 13:10
DX: R10.12 Left upper quadrant pain (principal); R11.2 Nausea with vomiting, unspecified; I10 Essential (primary) hypertension; Z86.73 Personal history of transient ischemic attack (TIA), and cerebral infarction without residual deficits; Z79.899 Other long term (current) drug therapy; Z88.8 Allergy status to other drugs, medicaments and biological substances
CPT/HCPCS: 96372; 99284; J1170; J2550; 99283

== ENCOUNTER 2019-10-23 08:03 | Emergency (ER) | payer BC, MEDICARE ==
--- NOTE | 2019-10-23 08:29 | EDM.PDOC ---
ED HPI GENERAL MEDICAL PROBLEM - General Chief Complaint: Abdominal Pain Stated Complaint: ABD Time Seen by Provider: 10/23/19 08:28 Source of Information: Reports: Patient History Limitations: Reports: No Limitations - History of Present Illness INITIAL COMMENTS - FREE TEXT/NARRATIVE: 44-year-old female who is a frequent visitor to the ED due to chronic relapsing pancreatitis. She would be able to have a Whipple's procedure in [place] but apparently due to an allergy to Creon for pancreatic enzyme supplementation the procedure was canceled as they felt she would need to be a pancreatic supplement the rest of her life and therefore could not tolerate life without a pancreas. She has yet to find a chronic pain specialist. She visits the ER quite frequently for pain relief and nausea and vomiting relief. Current pain so syndrome is unchanged mostly epigastric left upper quadrant readings to to the left mid back under the shoulder blade. Associated intermittent nausea and vomiting of bilious material without any hematemesis. Pain is described as deep constant and aching. Associated diarrhea with steatorrhea. Onset: Other (Chronic pain syndrome. Has been vomiting bilious material almost all night.) Onset Date: 10/21/19 Duration: Hour(s): Location: Reports: Abdomen (Intractable nausea and vomiting of bilious material compatible with left upper quadrant abdominal pain radiating through to her back.) Quality: Reports: Ache Severity: Severe (Deep aching pain left upper quadrant of the abdomen) Improves with: Reports: None Worsens with: Reports: None ( 10 out of 10) Context: 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 (Known to have chronic relapsing pancreatitis.). Denies : Activity, Exercise, Lifting, Sick Contact, Trauma Associated Symptoms: Reports: Nausea/Vomiting, Other (Loose diarrhea stools with steatorrhea I feel it's). Denies: Confusion, Chest Pain, Cough, cough w sputum, Diaphoresis, Fever/Chills, Headaches, Loss of Appetite, Malaise, Rash, Seizure (Intractable bilious emesis.), Shortness of Breath, Syncope Treatments FISHER SCALLOP: 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 (see below) (Zofran sublingual) Left Upper Abdominal Pain Score (Numeric/FACES): 9 - Related Data Allergies Allergy/AdvReac Type Severity Reaction Status Date / Time amylase [From Creon] Allergy Rash Verified 10/23/19 08:26 buprenorphine [From Butrans] Allergy Itching Verified 10/23/19 08:26 lipase [From Creon] Allergy Rash Verified 10/23/19 08:26 metoclopramide HCl Allergy Itching Verified 10/23/19 08:26 [From Reglan] protease [From Creon] Allergy Rash Verified 10/23/19 08:26 ketorolac [From Toradol] AdvReac Bleeding Verified 10/23/19 08:26 NSAIDS (Non-Steroidal AdvReac Abdominal Verified 10/23/19 08:26 Anti-Inflamma Pain prochlorperazine AdvReac Vomiting Verified 10/23/19 08:26 [From Compazine] Home Meds: Home Meds Mirtazapine 30 mg PO BEDTIME 03/14/19 [History] Pantoprazole Sodium [Protonix] 40 mg PO BID 03/14/19 [History] Prazosin HCl [Prazosin] 5 mg PO BEDTIME 03/14/19 [History] Vortioxetine [Trintellix] 10 mg PO DAILY 03/14/19 [History] ALPRAZolam [Alprazolam] 0.5 mg PO BID PRN 05/15/19 [History] Ferrous Sulfate [Iron] 650 mg PO BID 05/15/19 [History] QUEtiapine Fumarate [Quetiapine Fumarate] 75 mg PO BEDTIME 05/15/19 [History] Cholecalciferol (Vitamin D3) [Vitamin D3] 1,000 intnl unit PO DAILY 06/28/19 [ History] Zolpidem [Ambien] 10 mg PO BEDTIME 08/14/19 [History] Hydrocortisone [Cortef] 5 mg PO 1300 10/11/19 [History] Hydrocortisone [Cortef] 15 mg PO DAILY 10/11/19 [History] Levothyroxine 175 mcg PO ACBREAKFAST 10/11/19 [History] Promethazine [Phenergan] 25 mg PO Q4H PRN #28 tab 10/16/19 [Rx] Past Medical History - Past Health History Medical/Surgical History: Denies Medical/Surgical History HEENT History: Reports: Glaucoma, Otitis Media Cardiovascular History: Reports: Hypertension Other Cardiovascular History: tachycardia Respiratory History: Reports: None Gastrointestinal History: Reports: Chronic Constipation, Hemorrhoids, Pancreatitis, Other (See Below) Other Gastrointestinal History: chronic pancreatitis, LUQ pain, gastric sleeve procedure, hemorrhoids Genitourinary History: Reports: UTI, Recurrent MOTOR VEHICLE REPRESENTATIVE History: 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 MOTOR VEHICLE REPRESENTATIVE History: c section x3, tubes tied Musculoskeletal History: Reports: Arthritis, Fracture, Other (See Below) Other Musculoskeletal History: left foot fracture, elbow pain, wrist pain, weakness, falls Neurological History: Reports: TIA, Other (See Below) Other Neuro History: pseudotumor, shunt, benign pineal brain tumor, memory loss , seizure disorder, vertigo, brain surgery x 16 Psychiatric History: Reports: Addiction, Anxiety, Depression Endocrine/Metabolic History: 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, Hypothyroidism, Obesity /BMI 30+, Vitamin D Deficiency Other Endocrine/Metabolic History: hyperthyroidism, hypothyroidism, hashimotos, secondary adrenal insufficiency Hematologic History: Reports: Anemia, Other (See Below) Other Hematologic History: anti TPO antibody Immunologic History: Reports: None Oncologic (Cancer) History: Reports: None Dermatologic History: Reports: Cellulitis - Infectious Disease History Infectious Disease History: Reports: C-Difficile, MRSA Other Infectious Disease History: in 2006, 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." - Past Surgical History Head Surgeries/Procedures: Reports: Shunt HEENT Surgical History: Reports: Oral Surgery Other HEENT Surgeries/Procedures: [place] teeth removal. dental extraction Cardiovascular Surgical History: Reports: None Respiratory Surgical History: Reports: None GI Surgical History: Reports: Appendectomy, Bariatric Procedure, Cholecystectomy , Colonoscopy, EGD, ERCP Other GI Surgeries/Procedures: EUS Female Surgical History: Reports: Section, Tubal Ligation Other Female Surgeries/Procedures: C-SECTIONS X3 Endocrine Surgical History: Reports: None Neurological Surgical History: 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 (See Below) Other Neurological Surgeries/Procedures: brain tumor removal Musculoskeletal Surgical History: Reports: None Other Oncologic Surgeries/Procedures: Brain tumor removal Dermatological Surgical History: Reports: None Social & Family History - Family History Family Medical History: Noncontributory Cardiac: Reports: Bypass, Hypertension, [place] Respiratory: Reports: Asthma Oncologic: Reports: Colon - Caffeine Use Caffeine Use: Reports: Coffee Other Caffeine Use: 1 cup daily - Living Situation & Occupation Living situation: Reports: , with Spouse Occupation: Unemployed ED ROS GENERAL - Review of Systems Review Of Systems: See Below Constitutional: Reports: Chills, Malaise, Weakness, Fatigue. Denies: Fever HEENT: Reports: No Symptoms Respiratory: Reports: Shortness of Breath. Denies: Wheezing, Pleuritic Chest Pain (Sensation of shortness of breath as she can't take a full deep breath without making the abdominal pain worse.) Cardiovascular: Reports: No Symptoms Endocrine: Reports: Fatigue GI/Abdominal: Reports: Abdominal Pain (See history of present illness), Diarrhea (GI diarrhea), Decreased Appetite, Nausea, Vomiting : Reports: No Symptoms ( is chronic.) Musculoskeletal: Reports: Back Pain (Back pain referred from the pancreas since the inferior to the left scapula.) Skin: Reports: No Symptoms Neurological: Reports: Headache Psychiatric: Reports: Depression (Rarely gets a headache anymore. She has a history of pseudotumor cerebri.), Mood Lability (.) Hematologic/Lymphatic: Reports: No Symptoms Immunologic: Reports: No Symptoms ED EXAM, GI/ABD - Physical Exam Exam: See Below Exam Limited By: No Limitations General Appearance: Alert, WD/WN, Moderate Distress, Other (Patient is a which is going to do at this point time. She's states she cannot live the way she is. Sclerae try Creon 1 tablet 3 times daily as when she was taking 3 tablets 3 times daily into a snack she had significant GI bleeding and swelling of her throat.) Eyes: Bilateral: Normal Appearance Throat/Mouth: Other Head: Atraumatic (Tongue is mildly dry.), Normocephalic, Other (Multiple bur holes from previous surgeries to her brain with shunt placements.) Neck: Limited Range of Motion, Tender Lateral Respiratory/Chest: No Respiratory Distress, Lungs Clear, Normal Breath Sounds, No Accessory Muscle Use, Chest Non-Tender Cardiovascular: Normal Peripheral Pulses, Regular Rate, Rhythm, No Edema, No Murmur, No Rub GI/Abdominal Exam: No Abnormal Bruit, No Mass, Pelvis Stable, Guarding, Tender ( Very tender left upper quadrant of the abdomen), Abnormal Bowel Sounds (Bowel sounds are quiet sent throughout the lung hoyos.). No: Rigid, Rebound (With guarding) Back Exam: Normal Inspection, Full Range of Motion. No: CVA Tenderness (L), CVA Tenderness (R) Extremities: Normal Inspection, Normal Range of Motion, Non-Tender, No Pedal Edema, Normal Capillary Refill Neurological: Alert, Oriented, CN II-XII Intact, Normal Cognition Psychiatric: Anxious, Depressed Mood, Tearful Skin Exam: Warm, Dry, Intact, Normal Color, No Rash Course - Vital Signs Last Recorded V/S: Last Vital Signs Temp 36.3 C 10/23/19 09:20 Pulse 74 10/23/19 09:20 Resp 18 10/23/19 09:20 BP 158/95 H 10/23/19 09:20 Pulse Ox 98 10/23/19 09:20 - Orders/Labs/Meds Meds: Medications Discontinued Medications Generic Name Dose Route Start Last Admin Trade Name Dominic PRN Reason Stop Dose Admin Hydrocortisone Sodium Succinate 100 mg 10/23/19 08:43 10/23/19 09:11 Solu-Cortef IM 10/23/19 08:44 100 mg ONETIME ONE Administration Hydromorphone HCl 2 mg 10/23/19 08:41 10/23/19 09:15 Dilaudid IM 10/23/19 08:42 2 mg ONETIME ONE Administration Lorazepam 1 mg 10/23/19 08:42 10/23/19 09:14 Ativan IM 10/23/19 08:43 1 mg ONETIME ONE Administration Promethazine HCl 37.5 mg 10/23/19 08:42 10/23/19 09:12 Phenergan IM 10/23/19 08:43 37.5 mg ONETIME ONE Administration - Radiology Interpretation Free Text/Narrative:: 44-year-old female presents once again to the ED due to severe pain left upper quadrant of the abdomen/with intractable nausea and vomiting. Patient has a history of chronic relapsing pancreatitis for which surgery is no longer an option due to allergy to the Creon. She developed severe GI bleeding on 3 Creon' s with each meal and 2 with snacks. She would need this medication chronically if they remove her pancreas and therefore will post procedure that was planned in [facility] was canceled about a month ago. Now seeking chronic pain management. We have stopped doing labs for the most part as sometimes a tetanus as to whether the lipase will be elevated or not. Plan I am medications as she has absence of any veins. Dilaudid 2 mg IV with IV Ativan 1 mg IV and Phenergan 37.5 mg IV for pain relief. Departure - Departure Time of Disposition: 09:22 Disposition: Home, Self-Care 01 Condition: Fair Clinical Impression: Chronic relapsing pancreatitis, Intractable nausea and vomiting Abdominal pain Qualifiers: Abdominal location: upper abdomen, unspecified Qualified Code(s): R10.10 - Upper abdominal pain, unspecified - Discharge Information *PRESCRIPTION DRUG MONITORING PROGRAM REVIEWED*: No *COPY OF PRESCRIPTION DRUG MONITORING REPORT IN PATIENT ALE: No Referrals: Farzaneh Smith MD [Primary Care Provider] - Forms: ED Department Discharge Additional Instructions: Evaluation the emergent today in regards to recurrence of pancreatitis left upper quadrant of the abdomen with intractable nausea and vomiting. Due to pancreatitis. Treated today with intramuscular medication Dilaudid 2 mg with 37.5 mg of Phenergan to alleviate pain and nausea. Benadryl 50 mg IM as well. 1 mg IM. Continue home treatments as best you can. Write a prescription for Percocet tabs 5/325 mg 2 tablets every 4-6 hours necessary for pain relief
[2019-10-23] MEDS ORDERED: HYDROmorphone 1 MG/ML Syringe IM ONE (08:41)
[2019-10-23] MEDS ORDERED: Promethazine 25 MG/ML SDV IM ONE (08:42)
[2019-10-23] MEDS ORDERED: LORazepam 2 MG/ML SDV IM ONE (08:42)
[2019-10-23] MEDS ORDERED: Hydrocortisone Sodium Succinate 100 MG/2 ML SDV IM ONE (08:43)
[2019-10-23 09:21] VITALS: BP 158/95; PULSE 74
== END 2019-10-23 09:40 | disposition home or self-care (01) ==
LOC: SUPCPDRO 08:03 → JD.ED 08:03
DX: K86.1 Other chronic pancreatitis (principal); R11.2 Nausea with vomiting, unspecified; R10.10 Upper abdominal pain, unspecified; I10 Essential (primary) hypertension; Z79.899 Other long term (current) drug therapy; Z88.6 Allergy status to analgesic agent; Z88.8 Allergy status to other drugs, medicaments and biological substances
CPT/HCPCS: 96372; 99284; J1170; J1720; J2060; J2550; 99283

== ENCOUNTER 2019-11-06 11:09 | Emergency (ER) | payer BC, MEDICARE ==
[2019-11-06 11:48] VITALS: BP 160/86; PULSE 77
[2019-11-06] MEDS ORDERED: HYDROmorphone 1 MG/ML Syringe IM ONE ×2 (12:00→13:12)
[2019-11-06] MEDS ORDERED: Promethazine 25 MG/ML SDV IM ONE (12:01)
--- NOTE | 2019-11-06 12:09 | EDM.PDOC ---
ED HPI GENERAL MEDICAL PROBLEM - General Chief Complaint: Abdominal Pain Stated Complaint: ABDOMINAL PAIN Time Seen by Provider: 11/06/19 11:46 Source of Information: Reports: Patient History Limitations: Reports: No Limitations - History of Present Illness INITIAL COMMENTS - FREE TEXT/NARRATIVE: The patient presents with abdominal pain, nausea, vomiting and diarrhea. This started this morning. This is a chronic problem for her. She has chronic pancreatitis. She got that after a getting gastric bypass. She was going to have a surgical procedure to help fix it but she is allergic to the enzymes she would have to take for the rest of her life. She is just now trying to manage her chronic pain. She is going to see a psychiatrist on December 12 and then the surgeon on the for consult to put in a nerve stimulator for the chronic pain. She had more pain in her abdomen, nausea, vomiting and some diarrhea. She has no fever, chills, cough, chest pain or shortness of breath. Onset: Gradual Duration: Hour(s): Location: Reports: Abdomen Quality: Reports: Sharp Severity: Moderate Improves with: Reports: None Worsens with: Reports: None Associated Symptoms: Reports: Nausea/Vomiting. Denies: Chest Pain, Cough, Fever /Chills, Headaches, Shortness of Breath Left Abdomen Pain Score (Numeric/FACES): 8 - Related Data Allergies Allergy/AdvReac Type Severity Reaction Status Date / Time amylase [From Creon] Allergy Rash Verified 11/06/19 11:48 buprenorphine [From Butrans] Allergy Itching Verified 11/06/19 11:48 lipase [From Creon] Allergy Rash Verified 11/06/19 11:48 metoclopramide HCl Allergy Itching Verified 11/06/19 11:48 [From Reglan] protease [From Creon] Allergy Rash Verified 11/06/19 11:48 ketorolac [From Toradol] AdvReac Bleeding Verified 11/06/19 11:48 NSAIDS (Non-Steroidal AdvReac Abdominal Verified 11/06/19 11:48 Anti-Inflamma Pain prochlorperazine AdvReac Vomiting Verified 11/06/19 11:48 [From Compazine] Home Meds: Home Meds Mirtazapine 30 mg PO BEDTIME 03/14/19 [History] Pantoprazole Sodium [Protonix] 40 mg PO BID 03/14/19 [History] Prazosin HCl [Prazosin] 5 mg PO BEDTIME 03/14/19 [History] Vortioxetine [Trintellix] 10 mg PO DAILY 03/14/19 [History] ALPRAZolam [Alprazolam] 0.5 mg PO BID PRN 05/15/19 [History] Ferrous Sulfate [Iron] 650 mg PO BID 05/15/19 [History] QUEtiapine Fumarate [Quetiapine Fumarate] 75 mg PO BEDTIME 05/15/19 [History] Cholecalciferol (Vitamin D3) [Vitamin D3] 1,000 intnl unit PO DAILY 06/28/19 [ History] Zolpidem [Ambien] 10 mg PO BEDTIME 08/14/19 [History] Hydrocortisone [Cortef] 5 mg PO 1300 10/11/19 [History] Hydrocortisone [Cortef] 15 mg PO DAILY 10/11/19 [History] Levothyroxine 175 mcg PO ACBREAKFAST 10/11/19 [History] Past Medical History - Past Health History Medical/Surgical History: Denies Medical/Surgical History HEENT History: Reports: Glaucoma, Otitis Media Cardiovascular History: Reports: Hypertension Other Cardiovascular History: tachycardia Respiratory History: Reports: None Gastrointestinal History: Reports: Chronic Constipation, Hemorrhoids, Pancreatitis, Other (See Below) Other Gastrointestinal History: chronic pancreatitis, LUQ pain, gastric sleeve procedure, hemorrhoids Genitourinary History: Reports: UTI, Recurrent ELIGIBILITY SERVICES REPRESENTATIVE History: 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 ELIGIBILITY SERVICES REPRESENTATIVE History: c section x3, tubes tied Musculoskeletal History: Reports: Arthritis, Fracture, Other (See Below) Other Musculoskeletal History: left foot fracture, elbow pain, wrist pain, weakness, falls Neurological History: Reports: TIA, Other (See Below) Other Neuro History: pseudotumor, shunt, benign pineal brain tumor, memory loss , seizure disorder, vertigo, brain surgery x 16 Psychiatric History: Reports: Addiction, Anxiety, Depression Endocrine/Metabolic History: Reports: Vermilion's Disease, Hypothyroidism, Obesity /BMI 30+, Vitamin D Deficiency Other Endocrine/Metabolic History: hyperthyroidism, hypothyroidism, hashimotos, secondary adrenal insufficiency Hematologic History: Reports: Anemia, Other (See Below) Other Hematologic History: anti TPO antibody Immunologic History: Reports: None Oncologic (Cancer) History: Reports: None Dermatologic History: Reports: Cellulitis - Infectious Disease History Infectious Disease History: Reports: C-Difficile, MRSA Other Infectious Disease History: in 2006, 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." - Past Surgical History Head Surgeries/Procedures: Reports: Shunt HEENT Surgical History: Reports: Oral Surgery Other HEENT Surgeries/Procedures: [place] teeth removal. dental extraction Cardiovascular Surgical History: Reports: None Respiratory Surgical History: Reports: None GI Surgical History: Reports: Appendectomy, Bariatric Procedure, Cholecystectomy , Colonoscopy, EGD, ERCP Other GI Surgeries/Procedures: EUS Female Surgical History: Reports: Section, Tubal Ligation Other Female Surgeries/Procedures: C-SECTIONS X3 Endocrine Surgical History: Reports: None Neurological Surgical History: 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 (See Below) Other Neurological Surgeries/Procedures: brain tumor removal Musculoskeletal Surgical History: Reports: None Other Oncologic Surgeries/Procedures: Brain tumor removal Dermatological Surgical History: Reports: None Social & Family History - Family History Family Medical History: Noncontributory Cardiac: Reports: Bypass, Hypertension, [place] Respiratory: Reports: Asthma Oncologic: Reports: Colon - Tobacco Use Smoking Status *Q: Never Smoker Second Hand Smoke Exposure: No - Caffeine Use Caffeine Use: Reports: Coffee, Soda Other Caffeine Use: 1 cup daily - Recreational Drug Use Recreational Drug Use: No - Living Situation & Occupation Living situation: Reports: , with Spouse Occupation: Unemployed ED ROS GENERAL - Review of Systems Review Of Systems: See Below Constitutional: Reports: No Symptoms HEENT: Reports: No Symptoms Respiratory: Reports: No Symptoms Cardiovascular: Reports: No Symptoms Endocrine: Reports: No Symptoms GI/Abdominal: Reports: Abdominal Pain, Diarrhea, Nausea, Vomiting : Reports: No Symptoms Musculoskeletal: Reports: No Symptoms ED EXAM, GI/ABD - Physical Exam Exam: See Below Exam Limited By: No Limitations General Appearance: Alert, No Apparent Distress Ears: Normal External Exam Nose: Normal Inspection Head: Atraumatic, Normocephalic Neck: Normal Inspection Respiratory/Chest: No Respiratory Distress, Lungs Clear, Normal Breath Sounds Cardiovascular: Regular Rate, Rhythm, No Edema, No Murmur GI/Abdominal Exam: Soft, No Organomegaly, No Mass, Tender (Moderate tenderness to the left upper abdomen) Course - Vital Signs Last Recorded V/S: Last Vital Signs Temp 97.0 F 11/06/19 11:45 Pulse 77 11/06/19 11:45 Resp 14 11/06/19 11:45 BP 160/86 H 11/06/19 11:45 Pulse Ox 98 11/06/19 11:45 - Orders/Labs/Meds Orders: Active Orders 24 hr Category Date Time Status HYDROmorphone [Dilaudid] Med 11/06/19 13:12 Once 1 mg IM ONETIME ONE Labs: Laboratory Tests 11/06/19 11/06/19 Range/Units 12:13 12:13 WBC 10.43 H (3.98-10.04) K/mm3 RBC 4.24 (3.98-5.22) M/mm3 Hgb 13.4 (11.2-15.7) gm/dl Hct 40.3 (34.1-44.9) % MCV 95.0 H (79.4-94.8) fl MCH 31.6 (25.6-32.2) pg MCHC 33.3 (32.2-35.5) g/dl RDW Std Deviation 45.2 (36.4-46.3) fL Plt Count 238 (182-369) K/mm3 MPV 9.4 (9.4-12.3) fl Neut % (Auto) 75.0 H (34.0-71.1) % Lymph % (Auto) 15.0 L (19.3-51.7) % [place] % (Auto) 8.9 (4.7-12.5) % Eos % (Auto) 0.7 (0.7-5.8) Baso % (Auto) 0.2 (0.1-1.2) % Neut # (Auto) 7.83 H (1.56-6.13) K/mm3 Lymph # (Auto) 1.56 (1.18-3.74) K/mm3 [place] # (Auto) 0.93 H (0.24-0.36) K/mm3 Eos # (Auto) 0.07 (0.04-0.36) K/mm3 Baso # (Auto) 0.02 (0.01-0.08) K/mm3 Manual Slide Review Normal smear Sodium 142 (136-145) mEq/L Potassium 4.0 (3.5-5.1) mEq/L Chloride 105 (98-107) mEq/L Carbon Dioxide 26 (21-32) mEq/L Anion Gap 15.0 (5-15) BUN 10 (7-18) mg/dL Creatinine 0.9 (0.55-1.02) mg/dL Est Cr Clr Drug Dosing 85.36 mL/min Estimated GFR (MDRD) > 60 (>60) mL/min BUN/Creatinine Ratio 11.1 L (14-18) Glucose 108 H (74-106) mg/dL Calcium 9.2 (8.5-10.1) mg/dL Total Bilirubin 0.3 (0.2-1.0) mg/dL AST 15 (15-37) U/L ALT 20 (14-59) U/L Alkaline Phosphatase 54 (46-116) U/L Total Protein 8.0 (6.4-8.2) g/dl Albumin 4.0 (3.4-5.0) g/dl Globulin 4.0 gm/dL Albumin/Globulin Ratio 1.0 (1-2) Lipase 207 (73-393) U/L Meds: Medications Discontinued Medications Generic Name Dose Route Start Last Admin Trade Name Freq PRN Reason Stop Dose Admin Hydromorphone HCl 1 mg 11/06/19 12:00 11/06/19 12:10 Dilaudid IM 11/06/19 12:01 1 mg ONETIME ONE Administration Promethazine HCl 25 mg 11/06/19 12:01 11/06/19 12:10 Phenergan IM 11/06/19 12:02 25 mg ONETIME ONE Administration - Re-Assessments/Exams Free Text/Narrative Re-Assessment/Exam: 11/06/19 12:09 I ordered labs and dilaudid 1mg IM and phenergan 25mg IM. 11/06/19 13:13 Her WBC was up slightly at 10.43. Her CMP looks good. Her lipase normal. I will give her another shot for pain and discharge her home. Departure - Departure Time of Disposition: 13:20 Disposition: Home, Self-Care 01 Condition: Good Clinical Impression: Abdominal pain - Discharge Information *PRESCRIPTION DRUG MONITORING PROGRAM REVIEWED*: Not Applicable *COPY OF PRESCRIPTION DRUG MONITORING REPORT IN PATIENT ALE: Not Applicable Referrals: Farzaneh Smith MD [Primary Care Provider] - Forms: ED Department Discharge Additional Instructions: Go home and rest. Take your medication as prescribed. Please return if you are worse. Sepsis Event Note - Evaluation Sepsis Screening Result: No Definite Risk - Focused Exam Vital Signs: Vital Signs Temp Pulse Resp BP Pulse Ox 11/06/19 11:45 97.0 F 77 14 160/86 H 98 Date Exam was Performed: 11/06/19 Time Exam was Performed: 13:12 - My Orders Last 24 Hours: My Active Orders 11/06/19 13:12 HYDROmorphone [Dilaudid] 1 mg IM ONETIME ONE - Assessment/Plan Last 24 Hours: My Active Orders 11/06/19 13:12 HYDROmorphone [Dilaudid] 1 mg IM ONETIME ONE
== END 2019-11-06 13:35 | disposition home or self-care (01) ==
LOC: JD.ED 11:09
DX: R10.12 Left upper quadrant pain (principal); I10 Essential (primary) hypertension; F41.9 Anxiety disorder, unspecified; F32.9 Major depressive disorder, single episode, unspecified; D64.9 Anemia, unspecified; E03.9 Hypothyroidism, unspecified; E66.9 Obesity, unspecified; Z68.37 Body mass index [BMI] 37.0-37.9, adult; Z88.5 Allergy status to narcotic agent; Z88.8 Allergy status to other drugs, medicaments and biological substances; Z88.6 Allergy status to analgesic agent; Z79.899 Other long term (current) drug therapy; Z79.890 Hormone replacement therapy; Z86.73 Personal history of transient ischemic attack (TIA), and cerebral infarction without residual deficits; Z90.49 Acquired absence of other specified parts of digestive tract; Z90.89 Acquired absence of other organs
CPT/HCPCS: 36415; 80053; 83690; 85025; 96372; 99284; J1170; J2550; 99283

== ENCOUNTER 2019-11-10 07:35 | Emergency (ER) | payer BC, MEDICARE ==
[2019-11-10 08:14] VITALS: BP 168/111; PULSE 102
[2019-11-10] MEDS ORDERED: HYDROmorphone 1 MG/ML Syringe IVPUSH ONE (09:00)
[2019-11-10] MEDS ORDERED: Promethazine 25 MG/ML SDV IM ONE (09:00)
[2019-11-10] MEDS ORDERED: Hydrocortisone Sodium Succinate 100 MG/2 ML SDV IM ONE (09:01)
[2019-11-10] MEDS ORDERED: LORazepam 2 MG/ML SDV IM ONE (09:02)
--- NOTE | 2019-11-10 09:02 | EDM.PDOC ---
ED HPI GENERAL MEDICAL PROBLEM - General Chief Complaint: Gastrointestinal Problem Stated Complaint: PANCREATITIS Time Seen by Provider: 11/10/19 08:59 Source of Information: Reports: Patient History Limitations: Reports: No Limitations - History of Present Illness INITIAL COMMENTS - FREE TEXT/NARRATIVE: 44-year-old female presents to the ED once again with diffuse left upper quadrant epigastric abdominal pain. Characteristic of her chronic pancreatitis. Patient has a history of chronic relapsing pancreatitis for greater than 40 years. Recent surgical consultation indicated that she was not a candidate for a Whipple's procedure as she would need to be on pancreatic supplements rest of her life improved to be allergic to Creon. At present she is seeking chronic pain management and is going to have a morphine pump placed in her thecal sac to try and relieve chronic pain in the near future. She is to be cleared by psychiatry services first. There is a physician in [place] who can perform this procedure. She states pain has been present for the last 3 days and she hasn't kept down anything solid. Any attempt to keep down fluids today has failed she vomits bilious material or water that she just drank immediately. He is very intense that she is letting go for 2 and half days over holidays because her sons were home from the [employer]. She complains of pain 10 out of 10 constant. She appreciates that she has significant steatorrhea with chronic diarrhea even when voiding she passes some stool steatorrhea stool. No blood in the stool and no blood in the emesis. She states the pain is perhaps a little bit worse in the epigastrium than usual perhaps secondary to intractable vomiting. We have not been performing labs on her as of recent since the diagnosis is confirmed and often the lipase is normal. Onset: Gradual Onset Date: 11/08/19 (Range started .) Duration: Day(s):, Constant, Getting Worse Location: Reports: Abdomen Quality: Reports: Ache (Epigastrium and left upper quadrant and then radiates through to her back under the shoulder blade.), Other Severity: Severe (Deep aching pain constant. Not relieved by vomiting) Improves with: Reports: None ( tendon to 10) Worsens with: Reports: None Context: Denies: Activity, Exercise, Lifting, Sick Contact, Trauma, Other Associated Symptoms: Reports: Fever/Chills, Malaise, Nausea/Vomiting (Feels chilled at times.), Other (No genitourinary complaints.). 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 Nothing will stay down.) Abdomen Pain Score (Numeric/FACES): 9 - Related Data Allergies Allergy/AdvReac Type Severity Reaction Status Date / Time amylase [From Creon] Allergy Rash Verified 11/10/19 08:14 buprenorphine [From Butrans] Allergy Itching Verified 11/10/19 08:14 lipase [From Creon] Allergy Rash Verified 11/10/19 08:14 metoclopramide HCl Allergy Itching Verified 11/10/19 08:14 [From Reglan] protease [From Creon] Allergy Rash Verified 11/10/19 08:14 ketorolac [From Toradol] AdvReac Bleeding Verified 11/10/19 08:14 NSAIDS (Non-Steroidal AdvReac Abdominal Verified 11/10/19 08:14 Anti-Inflamma Pain prochlorperazine AdvReac Vomiting Verified 11/10/19 08:14 [From Compazine] Home Meds: Home Meds Mirtazapine 30 mg PO BEDTIME 03/14/19 [History] Pantoprazole Sodium [Protonix] 40 mg PO BID 03/14/19 [History] Prazosin HCl [Prazosin] 5 mg PO BEDTIME 03/14/19 [History] Vortioxetine [Trintellix] 10 mg PO DAILY 03/14/19 [History] ALPRAZolam [Alprazolam] 0.5 mg PO BID PRN 05/15/19 [History] Ferrous Sulfate [Iron] 650 mg PO BID 05/15/19 [History] QUEtiapine Fumarate [Quetiapine Fumarate] 75 mg PO BEDTIME 05/15/19 [History] Cholecalciferol (Vitamin D3) [Vitamin D3] 1,000 intnl unit PO DAILY 06/28/19 [ History] Zolpidem [Ambien] 10 mg PO BEDTIME 08/14/19 [History] Hydrocortisone [Cortef] 5 mg PO 1300 10/11/19 [History] Hydrocortisone [Cortef] 15 mg PO DAILY 10/11/19 [History] Levothyroxine 175 mcg PO ACBREAKFAST 10/11/19 [History] Past Medical History - Past Health History Medical/Surgical History: Denies Medical/Surgical History HEENT History: Reports: Glaucoma, Otitis Media Cardiovascular History: Reports: Hypertension Other Cardiovascular History: tachycardia Respiratory History: Reports: None Gastrointestinal History: Reports: Chronic Constipation, Hemorrhoids, Pancreatitis, Other (See Below) Other Gastrointestinal History: chronic pancreatitis, LUQ pain, gastric sleeve procedure, hemorrhoids Genitourinary History: Reports: UTI, Recurrent WAX MOLDER History: 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 WAX MOLDER History: c section x3, tubes tied Musculoskeletal History: Reports: Arthritis, Fracture, Other (See Below) Other Musculoskeletal History: left foot fracture, elbow pain, wrist pain, weakness, falls Neurological History: Reports: TIA, Other (See Below) Other Neuro History: pseudotumor, shunt, benign pineal brain tumor, memory loss , seizure disorder, vertigo, brain surgery x 16 Psychiatric History: Reports: Addiction, Anxiety, Depression 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, Hypothyroidism, Obesity /BMI 30+, Vitamin D Deficiency Other Endocrine/Metabolic History: hyperthyroidism, hypothyroidism, hashimotos, secondary adrenal insufficiency Hematologic History: Reports: Anemia, Other (See Below) Other Hematologic History: anti TPO antibody Immunologic History: Reports: None Oncologic (Cancer) History: Reports: None Dermatologic History: Reports: Cellulitis - Infectious Disease History Infectious Disease History: Reports: C-Difficile, MRSA Other Infectious Disease History: in 2006, 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." - Past Surgical History Head Surgeries/Procedures: Reports: Shunt HEENT Surgical History: Reports: Oral Surgery Other HEENT Surgeries/Procedures: [place] teeth removal. dental extraction Cardiovascular Surgical History: Reports: None Respiratory Surgical History: Reports: None GI Surgical History: Reports: Appendectomy, Bariatric Procedure, Cholecystectomy , Colonoscopy, EGD, ERCP Other GI Surgeries/Procedures: EUS Female Surgical History: Reports: Section, Tubal Ligation Other Female Surgeries/Procedures: C-SECTIONS X3 Endocrine Surgical History: Reports: None Neurological Surgical History: 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 (See Below) Other Neurological Surgeries/Procedures: brain tumor removal Musculoskeletal Surgical History: Reports: None Other Oncologic Surgeries/Procedures: Brain tumor removal Dermatological Surgical History: Reports: None Social & Family History - Family History Family Medical History: Noncontributory Cardiac: Reports: Bypass, Hypertension, [place] Respiratory: Reports: Asthma Oncologic: Reports: Colon - Tobacco Use Smoking Status *Q: Never Smoker - Caffeine Use Caffeine Use: Reports: None Other Caffeine Use: 1 cup daily - Recreational Drug Use Recreational Drug Use: No - Living Situation & Occupation Living situation: Reports: , with Spouse Occupation: Unemployed ED ROS GENERAL - Review of Systems Review Of Systems: See Below Constitutional: Reports: Chills, Malaise, Weakness, Fatigue HEENT: Reports: No Symptoms Respiratory: Denies: Shortness of Breath, Wheezing, Pleuritic Chest Pain Cardiovascular: Reports: No Symptoms Endocrine: Reports: Fatigue GI/Abdominal: Reports: Abdominal Pain, Diarrhea (Recurrent chronic relapsing pancreatitis. Chronic steatorrhea.), Nausea, Vomiting (Intractable nausea and vomiting 2 days and nothing a stay down.) : 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 (Dark shaniqua colored urine) Musculoskeletal: Reports: Back Pain Skin: Reports: No Symptoms Neurological: Reports: Headache (Occasional headaches but for the most part has been controlled with gabapentin.) Psychiatric: Reports: Depression (She does suffering chronic depression with suicidal ideation due to her chronic pain syndrome. At present she is not suicidal and has no definite plan but she admits that she has considered suicide as an option since nothing else is controlling her chronic pain.) Hematologic/Lymphatic: Reports: No Symptoms Immunologic: Reports: No Symptoms ED EXAM, GI/ABD - Physical Exam Exam: See Below Exam Limited By: No Limitations General Appearance: Alert, WD/WN, Moderate Distress, Other (BP is 168/111. Heart rate was 102 at the bedside. Temperatures 36.3 respiratory rate of 20 with sats of 98% on room air.) Eyes: Bilateral: Normal Appearance (No scleral icterus.) Throat/Mouth: Other (Tongue is dry.) Head: Atraumatic, Normocephalic, Other (She has a shunt posterior to her right ear. Jose neurosurgical procedures.) Neck: Limited Range of Motion. No: Full Range of Motion, Carotid Bruit, Lymphadenopathy (L), Lymphadenopathy (R) Respiratory/Chest: No Respiratory Distress, Lungs Clear, Normal Breath Sounds, No Accessory Muscle Use Cardiovascular: Normal Peripheral Pulses, Regular Rate, Rhythm, No Edema, No Gallop, No Murmur, No Rub GI/Abdominal Exam: Guarding, Tender, Abnormal Bowel Sounds (Bowel sounds are absent.). No: Rigid (Moderate tenderness on palpation left upper quadrant with mild guarding.), Rebound Extremities: Normal Inspection, Normal Range of Motion, Non-Tender, No Pedal Edema, Normal Capillary Refill Neurological: Alert, Oriented, CN II-XII Intact, Normal Cognition Psychiatric: Normal Affect. No: Normal Mood Skin Exam: Warm, Dry, Intact, Normal Color, No Rash Course - Vital Signs Last Recorded V/S: Last Vital Signs Temp 36.3 C 11/10/19 08:11 Pulse 102 H 11/10/19 08:11 Resp 19 11/10/19 08:11 BP 168/111 H 11/10/19 08:11 Pulse Ox 98 11/10/19 08:11 - Orders/Labs/Meds Meds: Medications Discontinued Medications Generic Name Dose Route Start Last Admin Trade Name Dominic PRN Reason Stop Dose Admin Hydrocortisone Sodium Succinate 100 mg 11/10/19 09:01 11/10/19 09:13 Solu-Cortef IM 11/10/19 09:02 100 mg ONETIME ONE Administration Hydromorphone HCl 2 mg 11/10/19 09:00 Dilaudid IVPUSH 11/10/19 09:01 ONETIME ONE Hydromorphone HCl 2 mg 11/10/19 09:15 11/10/19 09:16 Dilaudid IM 11/10/19 09:16 2 mg ONETIME ONE Administration Lorazepam 1 mg 11/10/19 09:02 11/10/19 09:14 Ativan IM 11/10/19 09:03 1 mg ONETIME ONE Administration Promethazine HCl 37.5 mg 11/10/19 09:00 11/10/19 09:13 Phenergan IM 11/10/19 09:01 37.5 mg ONETIME ONE Administration - Radiology Interpretation Free Text/Narrative:: 44-year-old female presents once again to the ED due to chronic relapsing pancreatitis with severe left upper quadrant epigastric abdominal pain for the last 2 and half days. She let it go on a bit longer than she can tolerate because her kids are home for [place]. Intractable nausea and vomiting for the last 36 hours and hasn't kept anything down including her hydrocortisone which she takes daily for Eugene's disease. She is having significant steatorrhea. Possible diarrhea aggravated by low serum cortisol. Plan Dilaudid 2 mg IM with Phenergan 37.5 mg IM and Ativan 1 mg IM which she has tolerated very well in the past for pain management. Will also give her hydrocortisone 100 mg IM to make sure that she is not suffering addisonian crisis. - Re-Assessments/Exams Free Text/Narrative Re-Assessment/Exam: 11/10/19 10:30: Patient reports good relief of the nausea and the pain is now bearable. She reports it down to 10. Going to give her Zofran 4 mg under the tongue 20 tablets to be taken every 4 hours. For nausea relief. [place] 5/ 325 mg tabs one or 2 every 4 hours as necessary for pain relief. Departure - Departure Time of Disposition: 10:16 Disposition: Home, Self-Care 01 Condition: Fair Clinical Impression: Relapsing chronic pancreatitis, Intractable nausea and vomiting - Discharge Information *PRESCRIPTION DRUG MONITORING PROGRAM REVIEWED*: No *COPY OF PRESCRIPTION DRUG MONITORING REPORT IN PATIENT ALE: No Instructions: Chronic Pancreatitis Referrals: Farzaneh Smith MD [Primary Care Provider] - Forms: ED Department Discharge Additional Instructions: Evaluation the emergent today in regards to recurrence of left upper quadrant abdominal pain radiating through to her back characteristic of the chronic pain syndrome you have been experiencing for for many years. Diagnosis is chronic relapsing pancreatitis associated with intractable nausea and vomiting. You're treated with intramuscular injection of hydrocortisone since her not been able to keep down your oral steroid for Eugene's disease for the last 3 days. He will treated with intramuscular Dilaudid 2 mg with Ativan 1 mg and Phenergan 37.5 mg IM stop the vomiting. At home is to continue Zofran 4 mg under the tongue every 4 hours as necessary for nausea relief. Hydrocodone tablets 5/325 2 tablets at least every 4 hours as needed for pain relief. Sepsis Event Note - Evaluation Sepsis Screening Result: No Definite Risk - Focused Exam Vital Signs: Vital Signs Temp Pulse Resp BP Pulse Ox 11/10/19 08:11 36.3 C 102 H 19 168/111 H 98 Date Exam was Performed: 11/10/19 Time Exam was Performed: 12:16
[2019-11-10] MEDS ORDERED: HYDROmorphone 1 MG/ML Syringe IM ONE (09:15)
== END 2019-11-10 10:40 | disposition home or self-care (01) ==
LOC: JD.ED 07:35
DX: K86.1 Other chronic pancreatitis (principal); I10 Essential (primary) hypertension; M19.90 Unspecified osteoarthritis, unspecified site; F41.9 Anxiety disorder, unspecified; F32.9 Major depressive disorder, single episode, unspecified; E03.9 Hypothyroidism, unspecified; E05.90 Thyrotoxicosis, unspecified without thyrotoxic crisis or storm; D64.9 Anemia, unspecified; Z86.73 Personal history of transient ischemic attack (TIA), and cerebral infarction without residual deficits; E66.9 Obesity, unspecified; Z68.41 Body mass index [BMI] 40.0-44.9, adult; Z90.49 Acquired absence of other specified parts of digestive tract; Z98.84 Bariatric surgery status; Z88.8 Allergy status to other drugs, medicaments and biological substances; Z79.899 Other long term (current) drug therapy
CPT/HCPCS: 96372; 96374; 96375; 99283; J1170; J1720; J2060; J2550

== ENCOUNTER 2019-11-16 10:05 | Emergency (ER) | payer BC, MEDICARE ==
[2019-11-16 10:26] VITALS: BP 133/87; PULSE 86
[2019-11-16] MEDS ORDERED: HYDROmorphone 1 MG/ML Syringe IVPUSH ONE (10:47)
[2019-11-16] MEDS ORDERED: Sodium Chloride 0.9% 1,000 ML IV ONE (10:47)
[2019-11-16] MEDS ORDERED: diphenhydrAMINE 50 MG/ML SDV IVPUSH ONE (10:47)
[2019-11-16] MEDS ORDERED: Ondansetron 4 MG/2 ML SDV IVPUSH ONE (10:47)
--- NOTE | 2019-11-16 10:55 | EDM.PDOC ---
ED HPI GENERAL MEDICAL PROBLEM - General Chief Complaint: Back Pain or Injury Stated Complaint: L SIDE ABD PAIN Time Seen by Provider: 11/16/19 10:39 Source of Information: Reports: Patient History Limitations: Reports: No Limitations - History of Present Illness INITIAL COMMENTS - FREE TEXT/NARRATIVE: Patient is a 44-year-old female presents to the ER today complaining of left upper quadrant/flank pain. She has a history of chronic pancreatitis and states this is similar to previous episodes although the pain is worse. States symptoms initially started 3 days ago and have persisted. She's been having frequent episodes of nausea and vomiting unable to keep all her medications down. She has a history of chronic pancreatitis and is supposed to have a Whipple procedure but since she cannot tolerate the enzymes they've referred her to pain management. With further questioning patient does admit the pain started actually approximately one week ago when she was evaluated in the ER at that time. She was sent home after obtaining adequate resolution of pain with IV Dilaudid. She also obtained solu Cortef, Ativan, and Phenergan. She was sent home on oral pain medications including hydrocodone 5-3 25 with instructions to take 2 tabs every 4 hours as necessary for pain. She was discharged with 40 tabs filled on the and has completed this prescription. She does not have any other meds for pain management. Again pain pattern is similar to previous episodes although is more severe today. She rates it at 10 out of 10. She notes increased episodes of stearrhea. There is no dark tarry stools or bloody stools present. No documented fever. Denies any chest pain or shortness of breath. Denies any dizziness, dysuria, or hematuria. Left Back Pain Score (Numeric/FACES): 10 - Related Data Allergies Allergy/AdvReac Type Severity Reaction Status Date / Time amylase [From Creon] Allergy Rash Verified 11/16/19 10:26 buprenorphine [From Butrans] Allergy Itching Verified 11/16/19 10:26 lipase [From Creon] Allergy Rash Verified 11/16/19 10:26 metoclopramide HCl Allergy Itching Verified 11/16/19 10:26 [From Reglan] protease [From Creon] Allergy Rash Verified 11/16/19 10:26 ketorolac [From Toradol] AdvReac Bleeding Verified 11/16/19 10:26 NSAIDS (Non-Steroidal AdvReac Abdominal Verified 11/16/19 10:26 Anti-Inflamma Pain prochlorperazine AdvReac Vomiting Verified 11/16/19 10:26 [From Compazine] Home Meds: Home Meds Mirtazapine 30 mg PO BEDTIME 03/14/19 [History] Pantoprazole Sodium [Protonix] 40 mg PO BID 03/14/19 [History] Prazosin HCl [Prazosin] 5 mg PO BEDTIME 03/14/19 [History] Vortioxetine [Trintellix] 10 mg PO DAILY 03/14/19 [History] ALPRAZolam [Alprazolam] 0.5 mg PO BID PRN 05/15/19 [History] Ferrous Sulfate [Iron] 650 mg PO BID 05/15/19 [History] QUEtiapine Fumarate [Quetiapine Fumarate] 75 mg PO BEDTIME 05/15/19 [History] Cholecalciferol (Vitamin D3) [Vitamin D3] 1,000 intnl unit PO DAILY 06/28/19 [ History] Zolpidem [Ambien] 10 mg PO BEDTIME 08/14/19 [History] Hydrocortisone [Cortef] 5 mg PO 1300 10/11/19 [History] Hydrocortisone [Cortef] 15 mg PO DAILY 10/11/19 [History] Levothyroxine 175 mcg PO ACBREAKFAST 10/11/19 [History] Ondansetron [Zofran ODT] 4 mg PO Q6H PRN #30 tab.dis 11/16/19 [Rx] Past Medical History - Past Health History Medical/Surgical History: Denies Medical/Surgical History HEENT History: Reports: Glaucoma, Otitis Media Cardiovascular History: Reports: Hypertension Other Cardiovascular History: tachycardia Respiratory History: Reports: None Gastrointestinal History: Reports: Chronic Constipation, Hemorrhoids, Pancreatitis, Other (See Below) Other Gastrointestinal History: chronic pancreatitis, LUQ pain, gastric sleeve procedure, hemorrhoids Genitourinary History: Reports: UTI, Recurrent LION HUNTER History: 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 LION HUNTER History: c section x3, tubes tied Musculoskeletal History: Reports: Arthritis, Fracture, Other (See Below) Other Musculoskeletal History: left foot fracture, elbow pain, wrist pain, weakness, falls Neurological History: Reports: TIA, Other (See Below) Other Neuro History: pseudotumor, shunt, benign pineal brain tumor, memory loss , seizure disorder, vertigo, brain surgery x 16 Psychiatric History: Reports: Addiction, Anxiety, Depression Endocrine/Metabolic History: Reports: [place] Disease, Hypothyroidism, Obesity /BMI 30+, Vitamin D Deficiency Other Endocrine/Metabolic History: hyperthyroidism, hypothyroidism, hashimotos, secondary adrenal insufficiency Hematologic History: Reports: Anemia, Other (See Below) Other Hematologic History: anti TPO antibody Immunologic History: Reports: None Oncologic (Cancer) History: Reports: None Dermatologic History: Reports: Cellulitis - Infectious Disease History Infectious Disease History: Reports: C-Difficile, MRSA Other Infectious Disease History: in 2006, 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 dental extraction Cardiovascular Surgical History: Reports: None Respiratory Surgical History: Reports: None GI Surgical History: Reports: Appendectomy, Bariatric Procedure, Cholecystectomy , Colonoscopy, EGD, ERCP Other GI Surgeries/Procedures: EUS Female Surgical History: Reports: Section, Tubal Ligation Other Female Surgeries/Procedures: C-SECTIONS X3 Endocrine Surgical History: Reports: None Neurological Surgical History: 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 (See Below) Other Neurological Surgeries/Procedures: brain tumor removal Musculoskeletal Surgical History: Reports: None Other Oncologic Surgeries/Procedures: Brain tumor removal Dermatological Surgical History: Reports: None Social & Family History - Family History Family Medical History: Noncontributory Cardiac: Reports: Bypass, Hypertension, [place] Respiratory: Reports: Asthma Oncologic: Reports: Colon - Tobacco Use Smoking Status *Q: Unknown Ever Smoked - Caffeine Use Caffeine Use: Reports: None Other Caffeine Use: 1 cup daily - Living Situation & Occupation Living situation: Reports: , with Spouse Occupation: Unemployed ED ROS GENERAL - Review of Systems Review Of Systems: Comprehensive ROS is negative, except as noted in HPI. ED EXAM, GI/ABD - Physical Exam Exam: See Below Exam Limited By: No Limitations General Appearance: Alert, WD/WN, No Apparent Distress Eyes: Bilateral: Normal Appearance Ears: Hearing Grossly Normal Nose: Normal Inspection Throat/Mouth: Normal Inspection, Normal Oropharynx, Normal Voice, No Airway Compromise Head: Atraumatic, Normocephalic Neck: Normal Inspection, Supple, Non-Tender, Full Range of Motion Respiratory/Chest: No Respiratory Distress, Lungs Clear, Normal Breath Sounds, No Accessory Muscle Use, Chest Non-Tender Cardiovascular: Normal Peripheral Pulses, Regular Rate, Rhythm, No Murmur GI/Abdominal Exam: Normal Bowel Sounds, Soft, Other (Tenderness with palpation to the left upper quadrant and left flank. No bruising, swelling, redness present. Slight left flank and CVA tenderness.) (Female) Exam: Deferred Rectal (Female) Exam: Deferred Back Exam: Normal Inspection, Full Range of Motion, CVA Tenderness (L). No: CVA Tenderness (R) Extremities: Normal Inspection, Normal Range of Motion, Non-Tender Neurological: Alert, Oriented, CN II-XII Intact, Normal Cognition, No Motor/ Sensory Deficits Psychiatric: Normal Affect, Normal Mood Skin Exam: Warm, Dry, Intact, Normal Color, No Rash Course - Vital Signs Last Recorded V/S: Last Vital Signs Temp 97.4 F 11/16/19 10:22 Pulse 86 11/16/19 10:22 Resp 18 11/16/19 10:22 BP 133/87 11/16/19 10:22 Pulse Ox 98 11/16/19 10:22 - Orders/Labs/Meds Orders: Active Orders 24 hr Category Date Time Status Peripheral IV Care [RC] . DIRECTED Care 11/16/19 10:47 Active Sodium Chloride 0.9% [Saline Flush] Med 11/16/19 10:47 Active 10 ml FLUSH ASDIRECTED PRN Peripheral IV Insertion Adult [OM.PC] Routine Oth 11/16/19 10:47 Ordered Medication Orders Sodium Chloride (Saline Flush) 10 ml FLUSH ASDIRECTED PRN PRN Reason: Keep Vein Open Last Admin: 11/16/19 12:37 Dose: 10 ml Admin: 11/16/19 11:10 Dose: 10 ml Labs: Laboratory Tests 11/16/19 11/16/19 11/16/19 Range/Units 10:55 10:55 11:31 WBC 7.34 (3.98-10.04) K/mm3 RBC 4.07 (3.98-5.22) M/mm3 Hgb 12.9 (11.2-15.7) gm/dl Hct 38.8 (34.1-44.9) % MCV 95.3 H (79.4-94.8) fl MCH 31.7 (25.6-32.2) pg MCHC 33.2 (32.2-35.5) g/dl RDW Std Deviation 45.4 (36.4-46.3) fL Plt Count 210 (182-369) K/mm3 MPV 9.8 (9.4-12.3) fl Neutrophils % (Manual) 52 (40-60) % Band Neutrophils % 0 (0-10) % Lymphocytes % (Manual) 36 (20-40) % Atypical Lymphs % 0 % Monocytes % (Manual) 11 H (2-10) % Eosinophils % (Manual) 0 L (0.7-5.8) % Basophils % (Manual) 1 (0.1-1.2) Platelet Estimate Adequate RBC Morph Comment Normal Sodium (136-145) mEq/L Potassium (3.5-5.1) mEq/L Chloride (98-107) mEq/L Carbon Dioxide (21-32) mEq/L Anion Gap (5-15) BUN (7-18) mg/dL Creatinine (0.55-1.02) mg/dL Est Cr Clr Drug Dosing mL/min Estimated GFR (MDRD) (>60) mL/min BUN/Creatinine Ratio (14-18) Glucose (74-106) mg/dL Calcium (8.5-10.1) mg/dL Total Bilirubin (0.2-1.0) mg/dL AST (15-37) U/L ALT (14-59) U/L Alkaline Phosphatase (46-116) U/L C-Reactive Protein (<1.0) mg/dL Total Protein (6.4-8.2) g/dl Albumin (3.4-5.0) g/dl Globulin gm/dL Albumin/Globulin Ratio (1-2) Lipase (73-393) U/L Urine Color Yellow (Yellow) Urine Appearance Clear (Clear) Urine pH 7.5 (5.0-8.0) Ur Specific [place] 1.020 (1.005-1.030) Urine Protein Negative (Negative) Urine Glucose (UA) Negative (Negative) Urine Ketones Negative (Negative) Urine Occult Blood Negative (Negative) Urine Nitrite Negative (Negative) Urine Bilirubin Negative (Negative) Urine Urobilinogen 1.0 (0.2-1.0) Ur Leukocyte Esterase Trace H (Negative) Urine RBC 0-5 (0-5) /hpf Urine WBC 0-5 (0-5) /hpf Ur Squamous Epith Cells 0-5 (0-5) /hpf Urine Bacteria Few (FEW) /hpf Urine Mucus Few (FEW) /hpf Urine Opiates Screen Negative (BCHCWY=965) Ur Buprenorphine Scrn Negative (CUTOFF=10) Ur Oxycodone Screen Negative (IDF5EN=850) Urine Methadone Screen Negative (XIEFXX=814) Ur Propoxyphene Screen Negative (EBVHPZ=776) Ur Barbiturates Screen Negative (QTZZKK=702) Ur Tricyclics Screen Presumptive positive H (DBPZLE=619) Ur Phencyclidine Scrn Negative (CUTOFF=25) Ur Amphetamine Screen Negative (MHKNXX=528) U Methamphetamines Scrn Negative (QSZZEB=472) U Benzodiazepines Scrn Negative (QQGNBY=037) U Cocaine Metab Screen Negative (ZRDTJG=264) U Marijuana (THC) Screen Negative (CUTOFF=50) 11/16/19 Range/Units 11:31 WBC (3.98-10.04) K/mm3 RBC (3.98-5.22) M/mm3 Hgb (11.2-15.7) gm/dl Hct (34.1-44.9) % MCV (79.4-94.8) fl MCH (25.6-32.2) pg MCHC (32.2-35.5) g/dl RDW Std Deviation (36.4-46.3) fL Plt Count (182-369) K/mm3 MPV (9.4-12.3) fl Neutrophils % (Manual) (40-60) % Band Neutrophils % (0-10) % Lymphocytes % (Manual) (20-40) % Atypical Lymphs % % Monocytes % (Manual) (2-10) % Eosinophils % (Manual) (0.7-5.8) % Basophils % (Manual) (0.1-1.2) Platelet Estimate RBC Morph Comment Sodium 140 (136-145) mEq/L Potassium 3.5 (3.5-5.1) mEq/L Chloride 103 (98-107) mEq/L Carbon Dioxide 25 (21-32) mEq/L Anion Gap 15.5 H (5-15) BUN 9 (7-18) mg/dL Creatinine 0.9 (0.55-1.02) mg/dL Est Cr Clr Drug Dosing 85.36 mL/min Estimated GFR (MDRD) > 60 (>60) mL/min BUN/Creatinine Ratio 10.0 L (14-18) Glucose 94 (74-106) mg/dL Calcium 8.9 (8.5-10.1) mg/dL Total Bilirubin 0.5 (0.2-1.0) mg/dL AST 9 L (15-37) U/L ALT 14 (14-59) U/L Alkaline Phosphatase 51 (46-116) U/L C-Reactive Protein 0.8 (<1.0) mg/dL Total Protein 8.1 (6.4-8.2) g/dl Albumin 4.4 (3.4-5.0) g/dl Globulin 3.7 gm/dL Albumin/Globulin Ratio 1.2 (1-2) Lipase 262 (73-393) U/L Urine Color (Yellow) Urine Appearance (Clear) Urine pH (5.0-8.0) Ur Specific [place] (1.005-1.030) Urine Protein (Negative) Urine Glucose (UA) (Negative) Urine Ketones (Negative) Urine Occult Blood (Negative) Urine Nitrite (Negative) Urine Bilirubin (Negative) Urine Urobilinogen (0.2-1.0) Ur Leukocyte Esterase (Negative) Urine RBC (0-5) /hpf Urine WBC (0-5) /hpf Ur Squamous Epith Cells (0-5) /hpf Urine Bacteria (FEW) /hpf Urine Mucus (FEW) /hpf Urine Opiates Screen (JORPYM=424) Ur Buprenorphine Scrn (CUTOFF=10) Ur Oxycodone Screen (NFZ9JM=907) Urine Methadone Screen (HLAOJQ=887) Ur Propoxyphene Screen (HPQYRW=616) Ur Barbiturates Screen (ABKUJH=992) Ur Tricyclics Screen (RXCSNK=882) Ur Phencyclidine Scrn (CUTOFF=25) Ur Amphetamine Screen (PELXBR=299) U Methamphetamines Scrn (ZXYZYZ=865) U Benzodiazepines Scrn (FBGCZE=695) U Cocaine Metab Screen (MXOBLS=049) U Marijuana (THC) Screen (CUTOFF=50) Meds: Medications Generic Name Dose Route Start Last Admin Trade Name Freq PRN Reason Stop Dose Admin Sodium Chloride 10 ml 11/16/19 10:47 11/16/19 12:37 Saline Flush FLUSH 10 ml ASDIRECTED PRN Administration Keep Vein Open Discontinued Medications Generic Name Dose Route Start Last Admin Trade Name Freq PRN Reason Stop Dose Admin Diatrizoate Meglum/Diatrizoate Sod 90 ml 11/16/19 12:23 11/16/19 12:37 Gastrografin 37% PO 11/16/19 12:24 90 ml ONETIME ONE Administration Diphenhydramine HCl 50 mg 11/16/19 10:47 11/16/19 11:11 Benadryl IVPUSH 11/16/19 10:48 50 mg ONETIME ONE Administration Hydrocortisone 20 mg 11/16/19 12:03 11/16/19 12:31 Cortef PO 11/16/19 12:04 20 mg ONETIME ONE Administration Hydromorphone HCl 1 mg 11/16/19 10:47 11/16/19 11:10 Dilaudid IVPUSH 11/16/19 10:48 1 mg ONETIME ONE Administration Hydromorphone HCl 0.5 mg 11/16/19 13:12 11/16/19 13:19 Dilaudid IVPUSH 11/16/19 13:13 0.5 mg ONETIME ONE Administration Sodium Chloride 1,000 mls @ 999 mls/hr 11/16/19 10:47 11/16/19 11:09 Normal Saline IV 11/16/19 11:47 999 mls/hr ONETIME ONE Administration Iopamidol 100 ml 11/16/19 12:23 11/16/19 12:37 Isovue-300 (61%) IVPUSH 11/16/19 12:24 100 ml ONETIME ONE Administration Ondansetron HCl 4 mg 11/16/19 10:47 11/16/19 11:09 Zofran IVPUSH 11/16/19 10:48 4 mg ONETIME ONE Administration - Re-Assessments/Exams Free Text/Narrative Re-Assessment/Exam: Patient has a history of chronic pancreatitis and has been evaluated multiple times in the emergency department. She complains of left upper quadrant pain consistent with previous episodes of chronic pancreatitis. She is under pain contract at this time is not receiving any opiates. She was evaluated on 10 November for similar pain and was discharged with hydrocodone. She has ran out of this medication. She has had nausea and vomiting. She states the pain is rated a 10 out of 10 although her heart rate is within normal limits and her blood pressure is not elevated. She is sitting upright and does not appear in acute distress. She is afebrile with normal O2 sats. She is tender with palpation the left upper quadrant. No other concerning findings noted on exam of the abdomen. She states the pain is consistent with previous episodes although is more severe. She does have some stearrhea with no dark tarry stools or bloody stools. She denies any dysuria or hematuria. IV will be established with normal saline 1 L, Dilaudid 1 mg IV, Zofran 4 mg IV , and Benadryl 50 mg IV. Labs and studies to be obtained include: CBC, chem 14, CRP, UA, urine drug screen, lipase, and CT of the abdomen and pelvis. 11/16/19 12:03 Ordered cortef 20mg PO. History of [place]'s disease. Has not taken her daily dose of cortef. Labs and CT pending. Labs reviewed: CBC was essentially normal. Chem 14 was essentially normal as well. CRP within normal limits. Lipase 262. Urinalysis revealed trace leukocyte Estrace. Urine drug tox positive for tricyclics. CT abdomen and pelvis impression: Findings as noted above. Possible dehydration has no contrast seen within the bladder only delayed images. Nothing acute is appreciated on CT study of the abdomen and pelvis. Reassessment patient's nausea has improved. Pain is slightly worsened since CT study. Ordered Dilaudid 0.5 mg IVP. Vital signs are stable. She is not tachycardic. She has not been vomiting. I will be discharging patient home with instructions as documented. Return precautions discussed with the patient. No narcotics will be discharged with the patient. Departure - Departure Time of Disposition: 13:21 Disposition: Home, Self-Care 01 Condition: Good Clinical Impression: Upper abdominal pain Chronic pancreatitis Qualifiers: Pancreatitis type: other Qualified Code(s): K86.1 - Other chronic pancreatitis - Discharge Information Prescriptions: Ondansetron [Zofran ODT] 4 mg PO Q6H PRN #30 tab.dis PRN Reason: Nausea/Vomiting Instructions: Abdominal Pain, Adult, Chronic Pancreatitis Referrals: Farzaneh Smith MD [Primary Care Provider] - Forms: ED Department Discharge Additional Instructions: As discussed lab work and CT of the abdomen and pelvis did not reveal any acute findings. Utilize the Zofran as prescribed for nausea vomiting. Push the fluids. Stick with a clear liquid diet over the next 2 days may have advance to normal diet thereafter as tolerated. Follow-up with PCP for reevaluation this week. Return to ED if you develop any new or worsening symptoms. Do not drive today since receiving a sedative medication. Sepsis Event Note - Evaluation Sepsis Screening Result: No Definite Risk - Focused Exam Vital Signs: Vital Signs Temp Pulse Resp BP Pulse Ox 11/16/19 10:22 97.4 F 86 18 133/87 98 Date Exam was Performed: 11/16/19 Time Exam was Performed: 13:40 - My Orders Last 24 Hours: My Active Orders 11/16/19 10:47 Peripheral IV Care [RC] . DIRECTED Sodium Chloride 0.9% [Saline Flush] 10 ml FLUSH ASDIRECTED PRN Peripheral IV Insertion Adult [OM.PC] Routine - Assessment/Plan Last 24 Hours: My Active Orders 11/16/19 10:47 Peripheral IV Care [RC] . DIRECTED Sodium Chloride 0.9% [Saline Flush] 10 ml FLUSH ASDIRECTED PRN Peripheral IV Insertion Adult [OM.PC] Routine
[2019-11-16] MEDS: Sodium Chloride 0.9% 10 ML Syringe FLUSH PRN ×2 (11:10→12:37)
[2019-11-16] MEDS ORDERED: Hydrocortisone 20 MG Tab PO ONE (12:03)
[2019-11-16] MEDS ORDERED: Diatrizoate Meglumine/Diatrizoate Sodium 37% 120 ML Bottle PO ONE (12:23)
[2019-11-16] MEDS ORDERED: Iopamidol 612 MG/ML 100 ML Bottle IVPUSH ONE (12:23)
--- NOTE | 2019-11-16 13:02 | CT ---
CT abdomen and pelvis Technique: Multiple axial sections were obtained from above the dome of the diaphragm inferiorly into the pubic symphysis. Intravenous and oral contrast was utilized. Delayed images were obtained through the bladder. Comparison: Prior CT abdomen and pelvis study of 12/18/18. Findings: Visualized lung bases show nothing acute. Liver contains no focal abnormality. Spleen appears within normal limits. Adrenal glands show no nodule. Previous stomach surgery is noted. Pancreas appears within normal limits. Surgical clips are seen from prior cholecystectomy. Kidneys show symmetric contrast enhancement without hydronephrosis or mass. Aorta shows no aneurysm. No retroperitoneal adenopathy is seen. No mesenteric abnormalities are seen. Appendix not visualized with certainty. No pelvic mass or adenopathy is seen. No free fluid or inflammatory change is appreciated. Delayed images shows no contrast within the bladder raising the possibility of dehydration. Epidural catheter is seen terminating within the lower thoracic spine with catheter then exiting into the soft tissues which is a stable finding from previous CT exam. No free fluid is seen. Bone window settings were reviewed which show mild degenerative change throughout the spine. Impression: 1. Findings as noted above. Possible dehydration as no contrast seen within the bladder on delayed images. 2. Nothing acute is appreciated on CT study of the abdomen and pelvis. Diagnostic code #2 This report was dictated in [place] Standard Time
[2019-11-16] MEDS ORDERED: HYDROmorphone 0.5 MG/0.5 ML Syringe IVPUSH ONE (13:12)
== END 2019-11-16 13:37 | disposition home or self-care (01) ==
LOC: JD.ED 10:05
DX: K86.1 Other chronic pancreatitis (principal); Z88.8 Allergy status to other drugs, medicaments and biological substances; Z88.6 Allergy status to analgesic agent; Z79.899 Other long term (current) drug therapy
CPT/HCPCS: 36415; 74177; 80053; 80306; 81001; 83690; 85007; 85027; 86140; 96361; 96374; 96375; 96376; 99284; A9270; J1170; J1200; J2405; J7030; Q9963; Q9967

== ENCOUNTER 2019-11-20 08:46 | Emergency (ER) | payer BC, MEDICARE ==
[2019-11-20 09:03] VITALS: BP 165/108; PULSE 80
[2019-11-20] MEDS ORDERED: HYDROmorphone 1 MG/ML Syringe IM ONE ×2 (09:25→10:26)
[2019-11-20] MEDS ORDERED: Promethazine 25 MG/ML SDV IM ONE (09:25)
--- NOTE | 2019-11-20 09:58 | EDM.PDOC ---
ED HPI GENERAL MEDICAL PROBLEM - General Chief Complaint: Abdominal Pain Stated Complaint: PANCREATITIS Time Seen by Provider: 11/20/19 09:03 Source of Information: Reports: Patient History Limitations: Reports: No Limitations - History of Present Illness INITIAL COMMENTS - FREE TEXT/NARRATIVE: The patient presents with left upper abdominal pain. This is a chronic problem. She has been seen many times here before. She sees a specialist in [place] for chronic pancreatitis. She is scheduled to see a psychologist in December 12 to start the process to get a nerve stimulator to help with the pain. She was seen here 4 days ago and had a complete work up with labs and a CT and not much was found. She was drinking broth and clear liquids and she continues to hurt. She had some blood in her stool for a couple days but that has improved. Onset: Gradual Duration: Day(s): Location: Reports: Abdomen Quality: Reports: Sharp Severity: Severe Improves with: Reports: None, Medication Associated Symptoms: Reports: Nausea/Vomiting. Denies: Chest Pain, Cough, Fever /Chills, Headaches, Shortness of Breath Left Upper Abdomen Pain Score (Numeric/FACES): 8 - Related Data Allergies Allergy/AdvReac Type Severity Reaction Status Date / Time amylase [From Creon] Allergy Rash Verified 11/20/19 09:03 buprenorphine [From Butrans] Allergy Itching Verified 11/20/19 09:03 lipase [From Creon] Allergy Rash Verified 11/20/19 09:03 metoclopramide HCl Allergy Itching Verified 11/20/19 09:03 [From Reglan] protease [From Creon] Allergy Rash Verified 11/20/19 09:03 ketorolac [From Toradol] AdvReac Bleeding Verified 11/20/19 09:03 NSAIDS (Non-Steroidal AdvReac Abdominal Verified 11/20/19 09:03 Anti-Inflamma Pain prochlorperazine AdvReac Vomiting Verified 11/20/19 09:03 [From Compazine] Home Meds: Home Meds Mirtazapine 30 mg PO BEDTIME 03/14/19 [History] Pantoprazole Sodium [Protonix] 40 mg PO BID 03/14/19 [History] Prazosin HCl [Prazosin] 5 mg PO BEDTIME 03/14/19 [History] Vortioxetine [Trintellix] 10 mg PO DAILY 03/14/19 [History] ALPRAZolam [Alprazolam] 0.5 mg PO BID PRN 05/15/19 [History] Ferrous Sulfate [Iron] 650 mg PO BID 05/15/19 [History] QUEtiapine Fumarate [Quetiapine Fumarate] 75 mg PO BEDTIME 05/15/19 [History] Cholecalciferol (Vitamin D3) [Vitamin D3] 1,000 intnl unit PO DAILY 06/28/19 [ History] Zolpidem [Ambien] 10 mg PO BEDTIME 08/14/19 [History] Hydrocortisone [Cortef] 5 mg PO 1300 10/11/19 [History] Hydrocortisone [Cortef] 15 mg PO DAILY 10/11/19 [History] Levothyroxine 175 mcg PO ACBREAKFAST 10/11/19 [History] Ondansetron [Zofran ODT] 4 mg PO Q6H PRN #30 tab.dis 11/16/19 [Rx] Past Medical History - Past Health History Medical/Surgical History: Denies Medical/Surgical History HEENT History: Reports: Glaucoma, Otitis Media Cardiovascular History: Reports: Hypertension Other Cardiovascular History: tachycardia Respiratory History: Reports: None Gastrointestinal History: Reports: Chronic Constipation, Hemorrhoids, Pancreatitis, Other (See Below) Other Gastrointestinal History: chronic pancreatitis, LUQ pain, gastric sleeve procedure, hemorrhoids Genitourinary History: Reports: UTI, Recurrent 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 VETERINARY TECHNICIAN History: c section x3, tubes tied Musculoskeletal History: Reports: Arthritis, Fracture, Other (See Below) Other Musculoskeletal History: left foot fracture, elbow pain, wrist pain, weakness, falls Neurological History: Reports: TIA, Other (See Below) Other Neuro History: pseudotumor, shunt, benign pineal brain tumor, memory loss , seizure disorder, vertigo, brain surgery x 16 Psychiatric History: Reports: Addiction, Anxiety, Depression Endocrine/Metabolic History: Reports: [place]'s Disease, Hypothyroidism, Obesity /BMI 30+, Vitamin D Deficiency Other Endocrine/Metabolic History: hyperthyroidism, hypothyroidism, hashimotos, secondary adrenal insufficiency Hematologic History: Reports: Anemia, Other (See Below) Other Hematologic History: anti TPO antibody Immunologic History: Reports: None Oncologic (Cancer) History: Reports: None Dermatologic History: Reports: Cellulitis - Infectious Disease History Infectious Disease History: Reports: C-Difficile, MRSA Other Infectious Disease History: in 2006, 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." - Past Surgical History Head Surgeries/Procedures: Reports: Shunt HEENT Surgical History: Reports: Oral Surgery Other HEENT Surgeries/Procedures: [place] teeth removal. dental extraction Cardiovascular Surgical History: Reports: None Respiratory Surgical History: Reports: None GI Surgical History: Reports: Appendectomy, Bariatric Procedure, Cholecystectomy , Colonoscopy, EGD, ERCP Other GI Surgeries/Procedures: EUS Female Surgical History: Reports: Section, Tubal Ligation Other Female Surgeries/Procedures: C-SECTIONS X3 Endocrine Surgical History: Reports: None Neurological Surgical History: 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 (See Below) Other Neurological Surgeries/Procedures: brain tumor removal Musculoskeletal Surgical History: Reports: None Other Oncologic Surgeries/Procedures: Brain tumor removal Dermatological Surgical History: Reports: None Social & Family History - Family History Family Medical History: Noncontributory Cardiac: Reports: Bypass, Hypertension, [place] Respiratory: Reports: Asthma Oncologic: Reports: Colon - Tobacco Use Smoking Status *Q: Never Smoker - Caffeine Use Caffeine Use: Reports: Coffee Other Caffeine Use: 1 cup daily - Recreational Drug Use Recreational Drug Use: No - Living Situation & Occupation Living situation: Reports: , with Spouse Occupation: Unemployed ED ROS GENERAL - Review of Systems Review Of Systems: See Below Constitutional: Reports: No Symptoms HEENT: Reports: No Symptoms Respiratory: Reports: No Symptoms Cardiovascular: Reports: No Symptoms Endocrine: Reports: No Symptoms GI/Abdominal: Reports: Abdominal Pain, Bloody Stool, Nausea, Vomiting : Reports: No Symptoms Musculoskeletal: Reports: No Symptoms Skin: Reports: No Symptoms ED EXAM, GI/ABD - Physical Exam Exam: See Below Exam Limited By: No Limitations General Appearance: Alert, No Apparent Distress Ears: Normal External Exam Nose: Normal Inspection Head: Atraumatic, Normocephalic Neck: Normal Inspection Respiratory/Chest: No Respiratory Distress, Lungs Clear, Normal Breath Sounds Cardiovascular: Regular Rate, Rhythm, No Edema, No Murmur GI/Abdominal Exam: Soft, No Organomegaly, No Mass, Tender (Moderate tenderness to the let upper abdomen) Course - Vital Signs Last Recorded V/S: Last Vital Signs Temp 98 F 11/20/19 09:00 Pulse 80 11/20/19 09:00 Resp 18 11/20/19 09:00 BP 165/108 H 11/20/19 09:00 Pulse Ox 100 01/05/20 09:00 - Orders/Labs/Meds Labs: Laboratory Tests 11/20/19 11/20/19 Range/Units 09:48 09:48 WBC 6.92 (3.98-10.04) K/mm3 RBC 3.93 L (3.98-5.22) M/mm3 Hgb 12.3 (11.2-15.7) gm/dl Hct 37.8 (34.1-44.9) % MCV 96.2 H (79.4-94.8) fl MCH 31.3 (25.6-32.2) pg MCHC 32.5 (32.2-35.5) g/dl RDW Std Deviation 46.7 H (36.4-46.3) fL Plt Count 193 (182-369) K/mm3 MPV 9.8 (9.4-12.3) fl Neut % (Auto) 57.5 (34.0-71.1) % Lymph % (Auto) 29.6 (19.3-51.7) % Thayer % (Auto) 11.7 (4.7-12.5) % Eos % (Auto) 0.9 (0.7-5.8) Baso % (Auto) 0.3 (0.1-1.2) % Neut # (Auto) 3.98 (1.56-6.13) K/mm3 Lymph # (Auto) 2.05 (1.18-3.74) K/mm3 Thayer # (Auto) 0.81 H (0.24-0.36) K/mm3 Eos # (Auto) 0.06 (0.04-0.36) K/mm3 Baso # (Auto) 0.02 (0.01-0.08) K/mm3 Sodium 143 (136-145) mEq/L Potassium 3.6 (3.5-5.1) mEq/L Chloride 105 (98-107) mEq/L Carbon Dioxide 25 (21-32) mEq/L Anion Gap 16.6 H (5-15) BUN 7 (7-18) mg/dL Creatinine 0.8 (0.55-1.02) mg/dL Est Cr Clr Drug Dosing 96.03 mL/min Estimated GFR (MDRD) > 60 (>60) mL/min BUN/Creatinine Ratio 8.8 L (14-18) Glucose 86 (74-106) mg/dL Calcium 9.0 (8.5-10.1) mg/dL Total Bilirubin 0.3 (0.2-1.0) mg/dL AST 14 L (15-37) U/L ALT 14 (14-59) U/L Alkaline Phosphatase 52 (46-116) U/L Total Protein 7.5 (6.4-8.2) g/dl Albumin 3.9 (3.4-5.0) g/dl Globulin 3.6 gm/dL Albumin/Globulin Ratio 1.1 (1-2) Lipase 369 (73-393) U/L Meds: Medications Discontinued Medications Generic Name Dose Route Start Last Admin Trade Name Freq PRN Reason Stop Dose Admin Hydromorphone HCl 1 mg 11/20/19 09:25 11/20/19 09:34 Dilaudid IM 11/20/19 09:26 1 mg ONETIME ONE Administration Hydromorphone HCl 1 mg 11/20/19 10:26 11/20/19 10:37 Dilaudid IM 11/20/19 10:27 1 mg ONETIME ONE Administration Promethazine HCl 25 mg 11/20/19 09:25 11/20/19 09:34 Phenergan IM 11/20/19 09:26 25 mg ONETIME ONE Administration - Re-Assessments/Exams Free Text/Narrative Re-Assessment/Exam: 11/20/19 09:58 I have ordered labs, dilaudid 1mg IM and phenergan 25mg IM. 11/20/19 10:40 Her CBC is negative. Her anion gap is elevated at 16.6. Her lipase is negative. She still has pain. I will give her a shot of dilaudid and discharge her home. Departure - Departure Time of Disposition: 10:45 Disposition: Home, Self-Care 01 Condition: Good Clinical Impression: Abdominal pain Qualifiers: Abdominal location: upper abdomen, unspecified Qualified Code(s): R10.10 - Upper abdominal pain, unspecified - Discharge Information *PRESCRIPTION DRUG MONITORING PROGRAM REVIEWED*: Not Applicable *COPY OF PRESCRIPTION DRUG MONITORING REPORT IN PATIENT ALE: Not Applicable Referrals: Farzaneh Smith MD [Primary Care Provider] - Forms: ED Department Discharge Additional Instructions: Take your medication as prescribed. Please return if you are worse. Sepsis Event Note - Evaluation Sepsis Screening Result: No Definite Risk - Focused Exam Vital Signs: Vital Signs Temp Pulse Resp BP Pulse Ox 11/20/19 09:00 98 F 80 18 165/108 H 100 Date Exam was Performed: 11/20/19 Time Exam was Performed: 10:40
== END 2019-11-20 10:55 | disposition home or self-care (01) ==
LOC: JD.ED 08:46
DX: R10.10 Upper abdominal pain, unspecified (principal); I10 Essential (primary) hypertension; F32.9 Major depressive disorder, single episode, unspecified; E03.9 Hypothyroidism, unspecified; Z91.09 Other allergy status, other than to drugs and biological substances; Z88.8 Allergy status to other drugs, medicaments and biological substances; Z88.6 Allergy status to analgesic agent; Z79.899 Other long term (current) drug therapy; Z86.73 Personal history of transient ischemic attack (TIA), and cerebral infarction without residual deficits; Z79.890 Hormone replacement therapy
CPT/HCPCS: 36415; 80053; 83690; 85025; 96372; 99284; J1170; J2550; 99282

== ENCOUNTER 2019-12-11 10:00 | Emergency (ER) | payer BC, MEDICARE ==
[2019-12-11 10:24] VITALS: BP 187/100; PULSE 77
[2019-12-11] MEDS ORDERED: HYDROmorphone 1 MG/ML Syringe IM ONE (11:10)
[2019-12-11] MEDS ORDERED: LORazepam 2 MG/ML SDV IM ONE (11:10)
[2019-12-11] MEDS ORDERED: Promethazine 25 MG/ML SDV IM ONE (11:11)
[2019-12-11] MEDS ORDERED: Hydrocortisone Sodium Succinate 100 MG/2 ML SDV IM ONE (11:11)
--- NOTE | 2019-12-11 11:35 | EDM.PDOC ---
ED HPI GENERAL MEDICAL PROBLEM - General Chief Complaint: Abdominal Pain Stated Complaint: PANCREATITIS Time Seen by Provider: 12/11/19 11:33 Source of Information: Reports: Patient History Limitations: Reports: No Limitations - History of Present Illness INITIAL COMMENTS - FREE TEXT/NARRATIVE: 44-year-old female presents to the ED with complaints of severe left upper quadrant abdominal pain radiating through to her left upper back. Patient has a history of chronic relapsing pancreatitis for which she is considered nonoperable because of inability pancreatic enzyme supplements due to allergy. Currently awaiting psychiatric evaluation in [place] before having a trans-thecal pain management device placed in [place]. She's been sick for the last 3 days with intermittent nausea vomiting of bilious material without any hematemesis. Can't keep down any of her medications including her cortisone medicine for her [place]'s disease. Should chronic stearrhea usually 5-6, today with occasional blood with wiping due to excoriation of the perineum and anus. Early on her way with her family to [place]. Came to the ED for pain management. Onset: Other (Increased left upper quadrant abdominal pain radiating through to her back for the last 3 days.) Onset Date: 12/08/19 Duration: Constant, Getting Worse Location: Reports: Abdomen (Left upper quadrant of the abdomen. Radiates through to her left back) Quality: Reports: Ache Severity: Severe (Constant deep aching pain) Improves with: Reports: None ( 8 out of 10) Worsens with: Reports: None Context: 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 (History of chronic relapsing pancreatitis.). Denies: Activity, Exercise, Lifting, Sick Contact, Trauma Associated Symptoms: Reports: Nausea/Vomiting (Intractable nausea and vomiting of bilious material.), Other (Running diarrhea usually 6 Palm once daily i.e. 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) - Related Data Allergies Allergy/AdvReac Type Severity Reaction Status Date / Time amylase [From Creon] Allergy Rash Verified 12/11/19 10:24 buprenorphine [From Butrans] Allergy Itching Verified 12/11/19 10:24 lipase [From Creon] Allergy Rash Verified 12/11/19 10:24 metoclopramide HCl Allergy Itching Verified 12/11/19 10:24 [From Reglan] protease [From Creon] Allergy Rash Verified 12/11/19 10:24 ketorolac [From Toradol] AdvReac Bleeding Verified 12/11/19 10:24 NSAIDS (Non-Steroidal AdvReac Abdominal Verified 12/11/19 10:24 Anti-Inflamma Pain prochlorperazine AdvReac Vomiting Verified 12/11/19 10:24 [From Compazine] Home Meds: Home Meds Mirtazapine 30 mg PO BEDTIME 03/14/19 [History] Pantoprazole Sodium [Protonix] 40 mg PO BID 03/14/19 [History] Prazosin HCl [Prazosin] 5 mg PO BEDTIME 03/14/19 [History] Vortioxetine [Trintellix] 10 mg PO DAILY 03/14/19 [History] ALPRAZolam [Alprazolam] 0.5 mg PO BID PRN 05/15/19 [History] Ferrous Sulfate [Iron] 650 mg PO BID 05/15/19 [History] QUEtiapine Fumarate [Quetiapine Fumarate] 75 mg PO BEDTIME 05/15/19 [History] Cholecalciferol (Vitamin D3) [Vitamin D3] 1,000 intnl unit PO DAILY 06/28/19 [ History] Zolpidem [Ambien] 10 mg PO BEDTIME 08/14/19 [History] Hydrocortisone [Cortef] 5 mg PO 1300 10/11/19 [History] Hydrocortisone [Cortef] 15 mg PO DAILY 10/11/19 [History] Levothyroxine 150 mcg PO ACBREAKFAST 10/11/19 [History] Ondansetron [Zofran] 4 mg BUCCAL Q6H PRN #20 tab 12/11/19 [Rx] oxyCODONE HCl/Acetaminophen [Percocet 5-325 mg Tablet] 1 - 2 each PO Q4H PRN # 20 tablet 12/11/19 [Rx] Past Medical History - Past Health History Medical/Surgical History: Denies Medical/Surgical History HEENT History: Reports: Glaucoma, Otitis Media Cardiovascular History: Reports: Hypertension Other Cardiovascular History: tachycardia Respiratory History: Reports: None Gastrointestinal History: Reports: Chronic Constipation, Hemorrhoids, Pancreatitis, Other (See Below) Other Gastrointestinal History: chronic pancreatitis, LUQ pain, gastric sleeve procedure, hemorrhoids Genitourinary History: Reports: UTI, Recurrent 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: 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: c section x3, tubes tied Musculoskeletal History: Reports: Arthritis, Fracture, Other (See Below) Other Musculoskeletal History: left foot fracture, elbow pain, wrist pain, weakness, falls Neurological History: Reports: TIA, Other (See Below) Other Neuro History: pseudotumor, shunt, benign pineal brain tumor, memory loss , seizure disorder, vertigo, brain surgery x 16 Psychiatric History: Reports: Addiction, Anxiety, Depression 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, Hypothyroidism, Obesity /BMI 30+, Vitamin D Deficiency Other Endocrine/Metabolic History: hyperthyroidism, hypothyroidism, hashimotos, secondary adrenal insufficiency Hematologic History: Reports: Anemia, Other (See Below) Other Hematologic History: anti TPO antibody Immunologic History: Reports: None Oncologic (Cancer) History: Reports: None Dermatologic History: Reports: Cellulitis - Infectious Disease History Infectious Disease History: Reports: C-Difficile, MRSA Other Infectious Disease History: in 2006, 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." - Past Surgical History Head Surgeries/Procedures: Reports: Shunt HEENT Surgical History: Reports: Oral Surgery Other HEENT Surgeries/Procedures: [place] teeth removal. dental extraction Cardiovascular Surgical History: Reports: None Respiratory Surgical History: Reports: None GI Surgical History: Reports: Appendectomy, Bariatric Procedure, Cholecystectomy , Colonoscopy, EGD, ERCP Other GI Surgeries/Procedures: EUS Female Surgical History: Reports: Section, Tubal Ligation Other Female Surgeries/Procedures: C-SECTIONS X3 Endocrine Surgical History: Reports: None Neurological Surgical History: 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 (See Below) Other Neurological Surgeries/Procedures: brain tumor removal Musculoskeletal Surgical History: Reports: None Other Oncologic Surgeries/Procedures: Brain tumor removal Dermatological Surgical History: Reports: None Social & Family History - Family History Family Medical History: Noncontributory Cardiac: Reports: Bypass, Hypertension, [place] Respiratory: Reports: Asthma Oncologic: Reports: Colon - Tobacco Use Smoking Status *Q: Never Smoker - Caffeine Use Caffeine Use: Reports: Coffee Other Caffeine Use: 1 cup daily - Recreational Drug Use Recreational Drug Use: No - Living Situation & Occupation Living situation: Reports: , with Spouse Occupation: Unemployed ED ROS GENERAL - Review of Systems Review Of Systems: See Below Constitutional: Reports: Malaise, Weakness, Fatigue, Decreased Appetite. Denies : Fever, Chills, Weight Loss HEENT: Reports: No Symptoms Respiratory: Reports: Shortness of Breath Cardiovascular: Reports: Blood Pressure Problem. Denies: Chest Pain, Claudication (Blood pressure is elevated today at 187 100.), Dyspnea on Exertion , Edema, Lightheadedness, Orthopnea, Palpitations Endocrine: Reports: Fatigue GI/Abdominal: Reports: Abdominal Pain (Chronic upper abdominal pain), Diarrhea ( particularly left upper quadrant due to chronic relapsing pancreatitis. She has symptoms at least every week. chronic steatorrhea. ), Nausea, Vomiting ( Vomiting intermittently for the last 3 days.) : Reports: No Symptoms Musculoskeletal: Reports: Back Pain Skin: Reports: No Symptoms Neurological: Reports: Dizziness, Headache (History of chronic headaches due to intracranial hypertension.). Denies: Numbness, Syncope, Tingling, Weakness Psychiatric: Reports: Anxiety, Depression Hematologic/Lymphatic: Reports: No Symptoms Immunologic: Reports: No Symptoms ED EXAM, GI/ABD - Physical Exam Exam: See Below Exam Limited By: No Limitations General Appearance: Alert, WD/WN, Mild Distress, Other (Dentures 36.2. Pulse is 77 and sinus respiratory is 18 with O2 sats 100% on room air. BP elevated 187 100 reflux of recurrent pain syndrome.) Eyes: Bilateral: Normal Appearance (No scleral icterus or blepharal pallor.) Throat/Mouth: Other Head: Atraumatic (Tongue is mildly dry and coated.), Normocephalic, Other (She has evidence of multiple craniotomies on the right side of her head with a trickle peritoneal shunt on the right side behind her right ear.) Neck: Normal Inspection, Supple, Non-Tender, Full Range of Motion. No: Lymphadenopathy (L), Lymphadenopathy (R) Respiratory/Chest: No Respiratory Distress, Lungs Clear, Normal Breath Sounds, No Accessory Muscle Use Cardiovascular: Normal Peripheral Pulses, Regular Rate, Rhythm, No Edema, No Gallop, No Murmur, No Rub GI/Abdominal Exam: No Organomegaly, No Mass, Pelvis Stable, Guarding, Tender, Abnormal Bowel Sounds (Bowel sounds are very quiet sent at this time.). No: Rigid (Laterally tender to palpation left upper quadrant of the abdomen with guarding.), Rebound Back Exam: Normal Inspection, Full Range of Motion. No: CVA Tenderness (L), CVA Tenderness (R) Extremities: Normal Inspection, Normal Range of Motion, Non-Tender Neurological: Alert, Oriented, CN II-XII Intact, Normal Cognition Psychiatric: Normal Affect, Normal Mood Skin Exam: Warm, Intact, Normal Color, Pallor Course - Vital Signs Last Recorded V/S: Last Vital Signs Temp 36.2 C 12/11/19 10:17 Pulse 77 12/11/19 10:17 Resp 18 12/11/19 10:17 BP 187/100 H 12/11/19 10:17 Pulse Ox 100 12/11/19 10:17 - Orders/Labs/Meds Meds: Medications Discontinued Medications Generic Name Dose Route Start Last Admin Trade Name Dominic PRN Reason Stop Dose Admin Hydrocortisone Sodium Succinate 100 mg 12/11/19 11:11 Solu-Cortef IM 12/11/19 11:12 ONETIME ONE Hydromorphone HCl 2 mg 12/11/19 11:10 Dilaudid IM 12/11/19 11:11 ONETIME ONE Lorazepam 1 mg 12/11/19 11:10 Ativan IM 12/11/19 11:11 ONETIME ONE Promethazine HCl 25 mg 12/11/19 11:11 Phenergan IM 12/11/19 11:12 ONETIME ONE - Radiology Interpretation Free Text/Narrative:: 44-year-old female presents to the ED for pain management. She claims a three- day history of intermittent nausea and vomiting secondary to severe left upper quadrant abdominal pain characteristic of her chronic pancreatitis. This is been bilious without blood. She has associated diarrhea or steatorrhea usually 5 -6 times daily. Nothing much a stay down for the last 3 days. Clinically she does not appear to be that dehydrated. Early on her way to [place] to have psychiatric evaluation before seeing pain management clinic and perhaps placement of a spinal pain device implantation. Examination is unchanged from my multiple evaluations of this patient over the last 5 years. Plan she will be given IM Dilaudid 2 mg with Ativan 1 mg and Phenergan 25 mg IM for nausea and pain relief. Also given hydrocortisone 100 mg IM to replenish her cortisol deficiency.. Prescription written for Zofran 4 mg sublingual every 4-6 hours needed for nausea relief 20 tabs from the [employer] machine. Also Percocet tabs 5/325 mg one or 2 every 4-6 hours for pain relief 20 tabs. Will also be dispensed to the [employer] machine. Departure - Departure Time of Disposition: 11:37 Disposition: Home, Self-Care 01 Condition: Fair Clinical Impression: Chronic recurrent pancreatitis, Intractable nausea and vomiting - Discharge Information *PRESCRIPTION DRUG MONITORING PROGRAM REVIEWED*: No *COPY OF PRESCRIPTION DRUG MONITORING REPORT IN PATIENT ALE: No Prescriptions: Ondansetron [Zofran] 4 mg BUCCAL Q6H PRN #20 tab PRN Reason: nausea or vomiting oxyCODONE HCl/Acetaminophen [Percocet 5-325 mg Tablet] 1 - 2 each PO Q4H PRN # 20 tablet PRN Reason: pain relief. Instructions: Nausea and Vomiting, Adult, [id number] Referrals: Farzaneh Smith MD [Primary Care Provider] - Forms: ED Department Discharge Additional Instructions: Evaluation the emergency room today in regards to recurrence of severe left upper quadrant abdominal pain rating to your back associated intractable nausea and vomiting of bilious material. Continued steatorrhea and diarrhea. You're treated with intramuscular medications hydrocortisone 100 mg due to being resolved deficient with [place]'s disease. At the medic medication was Phenergan 25 mg IM. The medication was Dilaudid 2 mg IM and then 1 mg IM. Program for Zofran 4 mg sublingual every 4-6 hours necessary for nausea relief.Percocet tabs 5/325mg --1-2 tabs by mouth every 4-6 hours necessary for pain relief. Hopefully this will help facilitate her travel to [place] today. Sepsis Event Note - Evaluation Sepsis Screening Result: No Definite Risk - Focused Exam Vital Signs: Vital Signs Temp Pulse Resp BP Pulse Ox 12/11/19 10:17 36.2 C 77 18 187/100 H 100 Date Exam was Performed: 12/11/19 Time Exam was Performed: 11:46
== END 2019-12-11 12:00 | disposition home or self-care (01) ==
LOC: JD.ED 10:00
DX: K86.1 Other chronic pancreatitis (principal); I10 Essential (primary) hypertension; J45.909 Unspecified asthma, uncomplicated; Z79.899 Other long term (current) drug therapy; F41.9 Anxiety disorder, unspecified; F32.9 Major depressive disorder, single episode, unspecified; E03.9 Hypothyroidism, unspecified; E66.9 Obesity, unspecified; Z68.30 Body mass index [BMI] 30.0-30.9, adult; E27.1 Primary adrenocortical insufficiency; Z86.73 Personal history of transient ischemic attack (TIA), and cerebral infarction without residual deficits
CPT/HCPCS: 96372; 99284; J1170; J1720; J2060; J2550; 99283

== ENCOUNTER 2019-12-16 07:56 | Emergency (ER) | payer BC, MEDICARE | END 2019-12-16 09:22 | disposition left against medical advice (07) | LOC: JD.ED 07:56 | DX: Z53.21 Procedure and treatment not carried out due to patient leaving prior to being seen by health care provider (principal) ==

== ENCOUNTER 2019-12-17 14:57 | Emergency (ER) | payer BC, MEDICARE ==
[2019-12-17 15:25] VITALS: BP 157/102; PULSE 102
[2019-12-17] MEDS ORDERED: Promethazine 25 MG/ML SDV IM ONE (15:34)
[2019-12-17] MEDS ORDERED: HYDROmorphone 1 MG/ML Syringe IM ONE ×2 (15:34→17:03)
--- NOTE | 2019-12-17 16:50 | EDM.PDOC ---
ED HPI GENERAL MEDICAL PROBLEM - General Chief Complaint: Abdominal Pain Stated Complaint: ABDOMINAL PAIN Time Seen by Provider: 12/17/19 15:15 Source of Information: Reports: Patient History Limitations: Reports: No Limitations - History of Present Illness INITIAL COMMENTS - FREE TEXT/NARRATIVE: The patient presents with chronic upper abdominal pain from chronic pancreatitis. She recently returned from a trip to [place]. She was seen at the [facility] for a psych eval before they put in a nerve stimulator for her chronic pain. She has to go back in 9 days to have it put in. She has been having pain for a couple of days. She has some nausea and vomiting also. Onset: Gradual Duration: Day(s): Location: Reports: Abdomen Quality: Reports: Sharp Severity: Severe Improves with: Reports: None Worsens with: Reports: None Associated Symptoms: Reports: Nausea/Vomiting. Denies: Chest Pain, Cough, Fever /Chills, Headaches, Shortness of Breath Abdominal Pain Score (Numeric/FACES): 10 - Related Data Allergies Allergy/AdvReac Type Severity Reaction Status Date / Time amylase [From Creon] Allergy Rash Verified 12/17/19 15:25 buprenorphine [From Butrans] Allergy Itching Verified 12/17/19 15:25 lipase [From Creon] Allergy Rash Verified 12/17/19 15:25 metoclopramide HCl Allergy Itching Verified 12/17/19 15:25 [From Reglan] protease [From Creon] Allergy Rash Verified 12/17/19 15:25 ketorolac [From Toradol] AdvReac Bleeding Verified 12/17/19 15:25 NSAIDS (Non-Steroidal AdvReac Abdominal Verified 12/17/19 15:25 Anti-Inflamma Pain prochlorperazine AdvReac Vomiting Verified 12/17/19 15:25 [From Compazine] Home Meds: Home Meds Mirtazapine 30 mg PO BEDTIME 03/14/19 [History] Pantoprazole Sodium [Protonix] 40 mg PO BID 03/14/19 [History] Prazosin HCl [Prazosin] 5 mg PO BEDTIME 03/14/19 [History] Vortioxetine [Trintellix] 10 mg PO DAILY 03/14/19 [History] ALPRAZolam [Alprazolam] 0.5 mg PO BID PRN 05/15/19 [History] Ferrous Sulfate [Iron] 650 mg PO BID 05/15/19 [History] QUEtiapine Fumarate [Quetiapine Fumarate] 75 mg PO BEDTIME 05/15/19 [History] Cholecalciferol (Vitamin D3) [Vitamin D3] 1,000 intnl unit PO DAILY 06/28/19 [ History] Zolpidem [Ambien] 10 mg PO BEDTIME 08/14/19 [History] Hydrocortisone [Cortef] 5 mg PO 1300 10/11/19 [History] Hydrocortisone [Cortef] 15 mg PO DAILY 10/11/19 [History] Levothyroxine 150 mcg PO ACBREAKFAST 10/11/19 [History] Ondansetron [Zofran] 4 mg BUCCAL Q6H PRN #20 tab 12/11/19 [Rx] oxyCODONE HCl/Acetaminophen [Percocet 5-325 mg Tablet] 1 - 2 each PO Q4H PRN # 20 tablet 12/11/19 [Rx] Past Medical History - Past Health History Medical/Surgical History: Denies Medical/Surgical History HEENT History: Reports: Glaucoma, Otitis Media Cardiovascular History: Reports: Hypertension Other Cardiovascular History: tachycardia Respiratory History: Reports: None Gastrointestinal History: Reports: Chronic Constipation, Hemorrhoids, Pancreatitis, Other (See Below) Other Gastrointestinal History: chronic pancreatitis, LUQ pain, gastric sleeve procedure, hemorrhoids Genitourinary History: Reports: UTI, Recurrent 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: Reports: Other DRESSAGE INSTRUCTOR History: c section x3, tubes tied Musculoskeletal History: Reports: Arthritis, Fracture, Other (See Below) Other Musculoskeletal History: left foot fracture, elbow pain, wrist pain, weakness, falls Neurological History: Reports: TIA, Other (See Below) Other Neuro History: pseudotumor, shunt, benign pineal brain tumor, memory loss , seizure disorder, vertigo, brain surgery x 16 Psychiatric History: Reports: Addiction, Anxiety, Depression Endocrine/Metabolic History: 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, Hypothyroidism, Obesity /BMI 30+, Vitamin D Deficiency Other Endocrine/Metabolic History: hyperthyroidism, hypothyroidism, hashimotos, secondary adrenal insufficiency Hematologic History: Reports: Anemia, Other (See Below) Other Hematologic History: anti TPO antibody Immunologic History: Reports: None Oncologic (Cancer) History: Reports: None Dermatologic History: Reports: Cellulitis - Infectious Disease History Infectious Disease History: Reports: C-Difficile, MRSA Other Infectious Disease History: in 2006, 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 dental extraction Cardiovascular Surgical History: Reports: None Respiratory Surgical History: Reports: None GI Surgical History: Reports: Appendectomy, Bariatric Procedure, Cholecystectomy , Colonoscopy, EGD, ERCP Other GI Surgeries/Procedures: EUS Female Surgical History: Reports: Section, Tubal Ligation Other Female Surgeries/Procedures: C-SECTIONS X3 Endocrine Surgical History: Reports: None Neurological Surgical History: Reports: Other (See Below) Other Neurological Surgeries/Procedures: brain tumor removal Musculoskeletal Surgical History: Reports: None Other Oncologic Surgeries/Procedures: Brain tumor removal Dermatological Surgical History: Reports: None Social & Family History - Family History Family Medical History: Noncontributory Cardiac: Reports: Bypass, Hypertension, [place] Respiratory: Reports: Asthma Oncologic: Reports: Colon - Tobacco Use Smoking Status *Q: Never Smoker - Caffeine Use Caffeine Use: Reports: Coffee Other Caffeine Use: 1 cup daily - Recreational Drug Use Recreational Drug Use: No - Living Situation & Occupation Living situation: Reports: , with Spouse Occupation: Unemployed ED ROS GENERAL - Review of Systems Review Of Systems: See Below Constitutional: Reports: No Symptoms HEENT: Reports: No Symptoms Respiratory: Reports: No Symptoms Cardiovascular: Reports: No Symptoms Endocrine: Reports: No Symptoms GI/Abdominal: Reports: Abdominal Pain, Nausea, Vomiting. Denies: Diarrhea : Reports: No Symptoms Musculoskeletal: Reports: No Symptoms ED EXAM, GI/ABD - Physical Exam Exam: See Below Exam Limited By: No Limitations General Appearance: Alert, No Apparent Distress Ears: Normal External Exam Nose: Normal Inspection Head: Atraumatic, Normocephalic Neck: Normal Inspection Respiratory/Chest: No Respiratory Distress, Lungs Clear, Normal Breath Sounds Cardiovascular: Regular Rate, Rhythm, No Edema, No Murmur GI/Abdominal Exam: Soft, No Organomegaly, No Mass, Tender (Upper abdominal pain) Course - Vital Signs Last Recorded V/S: Last Vital Signs Temp 97.2 F 12/17/19 15:23 Pulse 102 H 12/17/19 15:23 Resp 16 12/17/19 15:23 BP 157/102 H 12/17/19 15:23 Pulse Ox 94 L 12/17/19 15:23 - Orders/Labs/Meds Orders: Active Orders 24 hr Category Date Time Status HYDROmorphone [Dilaudid] Med 12/17/19 17:03 Once 1 mg IM ONETIME ONE Labs: Laboratory Tests 12/17/19 12/17/19 Range/Units 15:51 15:51 WBC 8.84 (3.98-10.04) K/mm3 RBC 4.11 (3.98-5.22) M/mm3 Hgb 13.1 (11.2-15.7) gm/dl Hct 39.9 (34.1-44.9) % MCV 97.1 H (79.4-94.8) fl MCH 31.9 (25.6-32.2) pg MCHC 32.8 (32.2-35.5) g/dl RDW Std Deviation 46.3 (36.4-46.3) fL Plt Count 235 (182-369) K/mm3 MPV 10.0 (9.4-12.3) fl Neut % (Auto) 76.9 H (34.0-71.1) % Lymph % (Auto) 16.7 L (19.3-51.7) % [place] % (Auto) 5.9 (4.7-12.5) % Eos % (Auto) 0.3 L (0.7-5.8) Baso % (Auto) 0.1 (0.1-1.2) % Neut # (Auto) 6.79 H (1.56-6.13) K/mm3 Lymph # (Auto) 1.48 (1.18-3.74) K/mm3 [place] # (Auto) 0.52 H (0.24-0.36) K/mm3 Eos # (Auto) 0.03 L (0.04-0.36) K/mm3 Baso # (Auto) 0.01 (0.01-0.08) K/mm3 Sodium 141 (136-145) mEq/L Potassium 3.7 (3.5-5.1) mEq/L Chloride 105 (98-107) mEq/L Carbon Dioxide 26 (21-32) mEq/L Anion Gap 13.7 (5-15) BUN 5 L (7-18) mg/dL Creatinine 0.9 (0.55-1.02) mg/dL Est Cr Clr Drug Dosing 85.36 mL/min Estimated GFR (MDRD) > 60 (>60) mL/min BUN/Creatinine Ratio 5.6 L (14-18) Glucose 98 (74-106) mg/dL Calcium 9.3 (8.5-10.1) mg/dL Total Bilirubin 0.2 (0.2-1.0) mg/dL AST 12 L (15-37) U/L ALT 17 (14-59) U/L Alkaline Phosphatase 60 (46-116) U/L Total Protein 7.9 (6.4-8.2) g/dl Albumin 3.9 (3.4-5.0) g/dl Globulin 4.0 gm/dL Albumin/Globulin Ratio 1.0 (1-2) Lipase 491 H (73-393) U/L Meds: Medications Discontinued Medications Generic Name Dose Route Start Last Admin Trade Name Freq PRN Reason Stop Dose Admin Hydromorphone HCl 1 mg 12/17/19 15:34 12/17/19 15:57 Dilaudid IM 12/17/19 15:35 1 mg ONETIME ONE Administration Promethazine HCl 25 mg 12/17/19 15:34 12/17/19 15:57 Phenergan IM 12/17/19 15:35 25 mg ONETIME ONE Administration - Re-Assessments/Exams Free Text/Narrative Re-Assessment/Exam: 12/17/19 16:59 I ordered labs, phenergan 25mg IM and dilaudid 1mg IM. Her CBC and CMP look good. Her lipase was slightly elevated at 491. Departure - Departure Time of Disposition: 17:05 Disposition: Home, Self-Care 01 Condition: Good Clinical Impression: Abdominal pain - Discharge Information *PRESCRIPTION DRUG MONITORING PROGRAM REVIEWED*: Not Applicable *COPY OF PRESCRIPTION DRUG MONITORING REPORT IN PATIENT AEL: Not Applicable Referrals: Farzaneh Smith MD [Primary Care Provider] - 1 Week Forms: ED Department Discharge Additional Instructions: Drink plenty of fluids. Take your medication as prescribed. Please return if you are worse. Sepsis Event Note - Evaluation Sepsis Screening Result: No Definite Risk - Focused Exam Vital Signs: Vital Signs Temp Pulse Resp BP Pulse Ox 12/17/19 15:23 97.2 F 102 H 16 157/102 H 94 L Date Exam was Performed: 12/17/19 Time Exam was Performed: 17:04 - My Orders Last 24 Hours: My Active Orders 12/17/19 17:03 HYDROmorphone [Dilaudid] 1 mg IM ONETIME ONE - Assessment/Plan Last 24 Hours: My Active Orders 12/17/19 17:03 HYDROmorphone [Dilaudid] 1 mg IM ONETIME ONE
== END 2019-12-17 17:15 | disposition home or self-care (01) ==
LOC: JD.ED 14:57
DX: R10.9 Unspecified abdominal pain (principal); I10 Essential (primary) hypertension; E66.9 Obesity, unspecified; E03.9 Hypothyroidism, unspecified; Z88.8 Allergy status to other drugs, medicaments and biological substances; Z88.6 Allergy status to analgesic agent; Z79.899 Other long term (current) drug therapy; Z86.73 Personal history of transient ischemic attack (TIA), and cerebral infarction without residual deficits; Z90.49 Acquired absence of other specified parts of digestive tract; Z68.37 Body mass index [BMI] 37.0-37.9, adult
CPT/HCPCS: 36415; 80053; 83690; 85025; 96372; 99284; J1170; J2550

== ENCOUNTER 2019-12-19 17:12 | Emergency (ER) | payer BC, MEDICARE ==
[2019-12-19 17:50] VITALS: BP 188/130; PULSE 104
== END 2019-12-19 19:36 | disposition left against medical advice (07) ==
LOC: JD.ED 17:12
DX: Z53.21 Procedure and treatment not carried out due to patient leaving prior to being seen by health care provider (principal)

== ENCOUNTER 2020-01-03 08:27 | Emergency (ER) | payer BC ==
[2020-01-03] MEDS ORDERED: HYDROmorphone 1 MG/ML Syringe IM ONE ×2 (09:12→10:14)
[2020-01-03] MEDS ORDERED: Promethazine 25 MG/ML SDV IM ONE (09:12)
--- NOTE | 2020-01-03 10:02 | EDM.PDOC ---
ED HPI GENERAL MEDICAL PROBLEM - General Chief Complaint: Abdominal Pain Stated Complaint: ABD PAIN/RECTAL BLEEDING Time Seen by Provider: 01/03/20 09:01 Source of Information: Reports: Patient History Limitations: Reports: No Limitations - History of Present Illness INITIAL COMMENTS - FREE TEXT/NARRATIVE: The patient presents with upper abdominal pain and rectal bleeding. She has chronic pancreatitis and she had rectal bleeding in the past. She has been here multiple times for the same. She is scheduled to see a surgeon for a never stimulator at the [facility] January 16. They are not sure when the surgery will be but that will be the consult. She has more pain in the upper abdomen. She had bright red blood per rectum with some clots at times. This has been going on for only a couple of days. Onset: Gradual Duration: Day(s): Location: Reports: Abdomen Quality: Reports: Sharp Severity: Severe Improves with: Reports: None Worsens with: Reports: None Associated Symptoms: Reports: Nausea/Vomiting. Denies: Chest Pain, Cough, Fever /Chills, Headaches, Shortness of Breath Left Upper Abdomen Pain Score (Numeric/FACES): 7 - Related Data Allergies Allergy/AdvReac Type Severity Reaction Status Date / Time amylase [From Creon] Allergy Rash Verified 12/19/19 17:49 buprenorphine [From Butrans] Allergy Itching Verified 12/19/19 17:49 lipase [From Creon] Allergy Rash Verified 12/19/19 17:49 metoclopramide HCl Allergy Itching Verified 12/19/19 17:49 [From Reglan] protease [From Creon] Allergy Rash Verified 12/19/19 17:49 ketorolac [From Toradol] AdvReac Bleeding Verified 12/19/19 17:49 NSAIDS (Non-Steroidal AdvReac Abdominal Verified 12/19/19 17:49 Anti-Inflamma Pain prochlorperazine AdvReac Vomiting Verified 12/19/19 17:49 [From Compazine] Home Meds: Home Meds Mirtazapine 30 mg PO BEDTIME 03/14/19 [History] Pantoprazole Sodium [Protonix] 40 mg PO BID 03/14/19 [History] Prazosin HCl [Prazosin] 5 mg PO BEDTIME 03/14/19 [History] Vortioxetine [Trintellix] 10 mg PO DAILY 03/14/19 [History] ALPRAZolam [Alprazolam] 0.5 mg PO BID PRN 05/15/19 [History] Ferrous Sulfate [Iron] 650 mg PO BID 05/15/19 [History] QUEtiapine Fumarate [Quetiapine Fumarate] 75 mg PO BEDTIME 05/15/19 [History] Cholecalciferol (Vitamin D3) [Vitamin D3] 1,000 intnl unit PO DAILY 06/28/19 [ History] Zolpidem [Ambien] 10 mg PO BEDTIME 08/14/19 [History] Hydrocortisone [Cortef] 5 mg PO 1300 10/11/19 [History] Hydrocortisone [Cortef] 15 mg PO DAILY 10/11/19 [History] Levothyroxine 150 mcg PO ACBREAKFAST 10/11/19 [History] Ondansetron [Zofran] 4 mg BUCCAL Q6H PRN #20 tab 12/11/19 [Rx] oxyCODONE HCl/Acetaminophen [Percocet 5-325 mg Tablet] 1 - 2 each PO Q4H PRN # 20 tablet 12/11/19 [Rx] oxyCODONE HCl/Acetaminophen [Percocet 5-325 mg Tablet] 1 - 2 each PO Q6HR PRN # 10 tablet 01/03/20 [Rx] Past Medical History - Past Health History Medical/Surgical History: Denies Medical/Surgical History HEENT History: Reports: Glaucoma, Otitis Media Cardiovascular History: Reports: Hypertension Other Cardiovascular History: tachycardia Respiratory History: Reports: None Gastrointestinal History: Reports: Chronic Constipation, Hemorrhoids, Pancreatitis, Other (See Below) Other Gastrointestinal History: chronic pancreatitis, LUQ pain, gastric sleeve procedure, hemorrhoids Genitourinary History: Reports: UTI, Recurrent 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: Reports: 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: c section x3, tubes tied Musculoskeletal History: Reports: Arthritis, Fracture, Other (See Below) Other Musculoskeletal History: left foot fracture, elbow pain, wrist pain, weakness, falls Neurological History: Reports: TIA, Other (See Below) Other Neuro History: pseudotumor, shunt, benign pineal brain tumor, memory loss , seizure disorder, vertigo, brain surgery x 16 Psychiatric History: Reports: Addiction, Anxiety, Depression Endocrine/Metabolic History: Reports: [place]'s Disease, Hypothyroidism, Obesity /BMI 30+, Vitamin D Deficiency Other Endocrine/Metabolic History: hyperthyroidism, hypothyroidism, hashimotos, secondary adrenal insufficiency Hematologic History: Reports: Anemia, Other (See Below) Other Hematologic History: anti TPO antibody Immunologic History: Reports: None Oncologic (Cancer) History: Reports: None Dermatologic History: Reports: Cellulitis - Infectious Disease History Infectious Disease History: Reports: C-Difficile, MRSA Other Infectious Disease History: in 2006, 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 dental extraction Cardiovascular Surgical History: Reports: None Respiratory Surgical History: Reports: None GI Surgical History: Reports: Appendectomy, Bariatric Procedure, Cholecystectomy , Colonoscopy, EGD, ERCP Other GI Surgeries/Procedures: EUS Female Surgical History: Reports: Section, Tubal Ligation Other Female Surgeries/Procedures: C-SECTIONS X3 Endocrine Surgical History: Reports: None Neurological Surgical History: Reports: Other (See Below) Other Neurological Surgeries/Procedures: brain tumor removal Musculoskeletal Surgical History: Reports: None Other Oncologic Surgeries/Procedures: Brain tumor removal Dermatological Surgical History: Reports: None Social & Family History - Family History Family Medical History: Noncontributory Cardiac: Reports: Bypass, Hypertension, [place] Respiratory: Reports: Asthma Oncologic: Reports: Colon - Tobacco Use Smoking Status *Q: Never Smoker - Caffeine Use Caffeine Use: Reports: Coffee Other Caffeine Use: 1 cup daily - Recreational Drug Use Recreational Drug Use: No - Living Situation & Occupation Living situation: Reports: , with Spouse Occupation: Unemployed ED ROS GENERAL - Review of Systems Review Of Systems: See Below Constitutional: Reports: No Symptoms HEENT: Reports: No Symptoms Respiratory: Reports: No Symptoms Cardiovascular: Reports: No Symptoms Endocrine: Reports: No Symptoms GI/Abdominal: Reports: Abdominal Pain, Bloody Stool, Nausea, Vomiting : Reports: No Symptoms Musculoskeletal: Reports: No Symptoms ED EXAM, GI/ABD - Physical Exam Exam: See Below Exam Limited By: No Limitations General Appearance: Alert, No Apparent Distress Ears: Normal External Exam Nose: Normal Inspection Head: Atraumatic, Normocephalic Neck: Normal Inspection Respiratory/Chest: No Respiratory Distress, Lungs Clear, Normal Breath Sounds Cardiovascular: Regular Rate, Rhythm, No Edema, No Murmur GI/Abdominal Exam: Soft, No Organomegaly, No Mass, Tender (Moderate tenderness to the upper abdomen) Rectal (Female) Exam: Black Stool, Heme + Stool Course - Vital Signs Last Recorded V/S: Last Vital Signs Temp 98.2 F 01/03/20 09:00 Pulse 73 01/03/20 09:00 Resp 12 01/03/20 09:00 BP 166/98 H 01/03/20 09:00 Pulse Ox 100 01/03/20 09:00 - Orders/Labs/Meds Labs: Laboratory Tests 01/03/20 01/03/20 Range/Units 09:32 09:32 WBC 7.79 (3.98-10.04) K/mm3 RBC 4.19 (3.98-5.22) M/mm3 Hgb 13.4 (11.2-15.7) gm/dl Hct 42.4 (34.1-44.9) % MCV 101.2 H D (79.4-94.8) fl MCH 32.0 (25.6-32.2) pg MCHC 31.6 L (32.2-35.5) g/dl RDW Std Deviation 52.0 H (36.4-46.3) fL Plt Count 225 (182-369) K/mm3 MPV 9.7 (9.4-12.3) fl Neut % (Auto) 55.4 (34.0-71.1) % Lymph % (Auto) 30.2 (19.3-51.7) % [place] % (Auto) 11.8 (4.7-12.5) % Eos % (Auto) 2.2 (0.7-5.8) Baso % (Auto) 0.3 (0.1-1.2) % Neut # (Auto) 4.32 (1.56-6.13) K/mm3 Lymph # (Auto) 2.35 (1.18-3.74) K/mm3 [place] # (Auto) 0.92 H (0.24-0.36) K/mm3 Eos # (Auto) 0.17 (0.04-0.36) K/mm3 Baso # (Auto) 0.02 (0.01-0.08) K/mm3 Sodium 139 (136-145) mEq/L Potassium 3.7 (3.5-5.1) mEq/L Chloride 101 (98-107) mEq/L Carbon Dioxide 27 (21-32) mEq/L Anion Gap 14.7 (5-15) BUN 8 (7-18) mg/dL Creatinine 0.9 (0.55-1.02) mg/dL Est Cr Clr Drug Dosing 85.36 mL/min Estimated GFR (MDRD) > 60 (>60) mL/min BUN/Creatinine Ratio 8.9 L (14-18) Glucose 87 (74-106) mg/dL Calcium 8.9 (8.5-10.1) mg/dL Total Bilirubin 0.2 (0.2-1.0) mg/dL AST 15 (15-37) U/L ALT 18 (14-59) U/L Alkaline Phosphatase 58 (46-116) U/L Total Protein 7.8 (6.4-8.2) g/dl Albumin 3.9 (3.4-5.0) g/dl Globulin 3.9 gm/dL Albumin/Globulin Ratio 1.0 (1-2) Lipase 188 (73-393) U/L Meds: Medications Discontinued Medications Generic Name Dose Route Start Last Admin Trade Name Dominic PRN Reason Stop Dose Admin Hydromorphone HCl 1 mg 01/03/20 09:12 01/03/20 09:25 Dilaudid IM 01/03/20 09:13 1 mg ONETIME ONE Administration Hydromorphone HCl 1 mg 01/03/20 10:14 01/03/20 10:26 Dilaudid IM 01/03/20 10:15 1 mg ONETIME ONE Administration Promethazine HCl 25 mg 01/03/20 09:12 01/03/20 09:24 Phenergan IM 01/03/20 09:13 25 mg ONETIME ONE Administration - Re-Assessments/Exams Free Text/Narrative Re-Assessment/Exam: 01/03/20 10:44 I ordered dilaudid 1mg IM, phenergan 25mg IM and labs. Her CBC and CMP look good. Her lipase is normal. She had more pain so I ordered dilaudid 1mg IM. She did have dark stools. I will get her on some pepcid along with her protonix. Departure - Departure Time of Disposition: 10:50 Disposition: Home, Self-Care 01 Condition: Good Clinical Impression: LUQ abdominal pain Chronic pancreatitis Qualifiers: Pancreatitis type: other Qualified Code(s): K86.1 - Other chronic pancreatitis GI bleeding Qualifiers: GI bleed type/associated pathology: melena Qualified Code(s): K92.1 - Melena - Discharge Information *PRESCRIPTION DRUG MONITORING PROGRAM REVIEWED*: Not Applicable *COPY OF PRESCRIPTION DRUG MONITORING REPORT IN PATIENT ALE: Not Applicable Prescriptions: oxyCODONE HCl/Acetaminophen [Percocet 5-325 mg Tablet] 1 - 2 each PO Q6HR PRN # 10 tablet PRN Reason: Pain Referrals: Farzaneh Smith MD [Primary Care Provider] - 1 Week Forms: ED Department Discharge Additional Instructions: Take your medication as prescribed. Take pepcid daily for 2 weeks. Take the percocet as needed for pain Please return if you are worse. Sepsis Event Note - Evaluation Sepsis Screening Result: No Definite Risk - Focused Exam Vital Signs: Vital Signs Temp Pulse Resp BP Pulse Ox 01/03/20 09:00 98.2 F 73 12 166/98 H 100 Date Exam was Performed: 01/03/20 Time Exam was Performed: 10:40
[2020-01-03 11:08] VITALS: BP 158/93; PULSE 78
== END 2020-01-03 11:05 | disposition home or self-care (01) ==
LOC: JD.ED 08:27
DX: K86.1 Other chronic pancreatitis (principal); K92.1 Melena; I10 Essential (primary) hypertension; E03.9 Hypothyroidism, unspecified; D64.9 Anemia, unspecified; F41.9 Anxiety disorder, unspecified; F32.9 Major depressive disorder, single episode, unspecified; E66.9 Obesity, unspecified; Z68.38 Body mass index [BMI] 38.0-38.9, adult; Z88.8 Allergy status to other drugs, medicaments and biological substances; Z88.5 Allergy status to narcotic agent; Z88.6 Allergy status to analgesic agent; Z79.899 Other long term (current) drug therapy; Z79.890 Hormone replacement therapy; Z86.73 Personal history of transient ischemic attack (TIA), and cerebral infarction without residual deficits
CPT/HCPCS: 36415; 80053; 83690; 85025; 96372; 99284; J1170; J2550

== ENCOUNTER 2020-01-11 09:29 | Emergency (ER) | payer BC ==
[2020-01-11 09:57] VITALS: BP 182/82; PULSE 83
[2020-01-11] MEDS ORDERED: HYDROmorphone 1 MG/ML Syringe IM ONE ×2 (10:17→11:28)
[2020-01-11] MEDS ORDERED: Promethazine 25 MG/ML SDV IM ONE (10:17)
--- NOTE | 2020-01-11 11:34 | EDM.PDOC ---
ED HPI GENERAL MEDICAL PROBLEM - General Chief Complaint: Gastrointestinal Problem Stated Complaint: PANCREATITIS Time Seen by Provider: 01/11/20 09:53 Source of Information: Reports: Patient History Limitations: Reports: No Limitations - History of Present Illness INITIAL COMMENTS - FREE TEXT/NARRATIVE: The patient presents with left upper abdominal pain. This is a chronic problem and it has gotten worse since last night. She has nausea, vomiting and diarrhea also. She has no fever, chills, cough, congestion, runny nose, chest pain or shortness of breath. She has an appointment with the pain specialist next Thursday. Onset: Gradual Duration: Day(s): Location: Reports: Abdomen Quality: Reports: Sharp Severity: Severe Improves with: Reports: None Worsens with: Reports: None Associated Symptoms: Reports: Nausea/Vomiting. Denies: Chest Pain, Cough, Fever /Chills, Headaches, Shortness of Breath Left Abdominal Pain Score (Numeric/FACES): 10 - Related Data Allergies Allergy/AdvReac Type Severity Reaction Status Date / Time amylase [From Creon] Allergy Rash Verified 12/19/19 17:49 buprenorphine [From Butrans] Allergy Itching Verified 12/19/19 17:49 lipase [From Creon] Allergy Rash Verified 12/19/19 17:49 metoclopramide HCl Allergy Itching Verified 12/19/19 17:49 [From Reglan] protease [From Creon] Allergy Rash Verified 12/19/19 17:49 ketorolac [From Toradol] AdvReac Bleeding Verified 12/19/19 17:49 NSAIDS (Non-Steroidal AdvReac Abdominal Verified 12/19/19 17:49 Anti-Inflamma Pain prochlorperazine AdvReac Vomiting Verified 12/19/19 17:49 [From Compazine] Home Meds: Home Meds Mirtazapine 30 mg PO BEDTIME 03/14/19 [History] Pantoprazole Sodium [Protonix] 40 mg PO BID 03/14/19 [History] Prazosin HCl [Prazosin] 5 mg PO BEDTIME 03/14/19 [History] Vortioxetine [Trintellix] 10 mg PO DAILY 03/14/19 [History] ALPRAZolam [Alprazolam] 0.5 mg PO BID PRN 05/15/19 [History] Ferrous Sulfate [Iron] 650 mg PO BID 05/15/19 [History] QUEtiapine Fumarate [Quetiapine Fumarate] 75 mg PO BEDTIME 05/15/19 [History] Cholecalciferol (Vitamin D3) [Vitamin D3] 1,000 intnl unit PO DAILY 06/28/19 [ History] Zolpidem [Ambien] 10 mg PO BEDTIME 08/14/19 [History] Hydrocortisone [Cortef] 5 mg PO 1300 10/11/19 [History] Hydrocortisone [Cortef] 15 mg PO DAILY 10/11/19 [History] Levothyroxine 150 mcg PO ACBREAKFAST 10/11/19 [History] Ondansetron [Zofran] 4 mg BUCCAL Q6H PRN #20 tab 12/11/19 [Rx] oxyCODONE HCl/Acetaminophen [Percocet 5-325 mg Tablet] 1 - 2 each PO Q4H PRN # 20 tablet 12/11/19 [Rx] oxyCODONE HCl/Acetaminophen [Percocet 5-325 mg Tablet] 1 - 2 each PO Q6HR PRN # 10 tablet 01/03/20 [Rx] Past Medical History - Past Health History Medical/Surgical History: Denies Medical/Surgical History HEENT History: Reports: Glaucoma, Otitis Media Cardiovascular History: Reports: Hypertension Other Cardiovascular History: tachycardia Respiratory History: Reports: None Gastrointestinal History: Reports: Chronic Constipation, Hemorrhoids, Pancreatitis, Other (See Below) Other Gastrointestinal History: chronic pancreatitis, LUQ pain, gastric sleeve procedure, hemorrhoids Genitourinary History: Reports: UTI, Recurrent 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: Reports: Other 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: c section x3, tubes tied Musculoskeletal History: Reports: Arthritis, Fracture, Other (See Below) Other Musculoskeletal History: left foot fracture, elbow pain, wrist pain, weakness, falls Neurological History: Reports: TIA, Other (See Below) Other Neuro History: pseudotumor, shunt, benign pineal brain tumor, memory loss , seizure disorder, vertigo, brain surgery x 16 Psychiatric History: Reports: Addiction, Anxiety, Depression Endocrine/Metabolic History: Reports: [place]'s Disease, Hypothyroidism, Obesity /BMI 30+, Vitamin D Deficiency Other Endocrine/Metabolic History: hyperthyroidism, hypothyroidism, hashimotos, secondary adrenal insufficiency Hematologic History: Reports: Anemia, Other (See Below) Other Hematologic History: anti TPO antibody Immunologic History: Reports: None Oncologic (Cancer) History: Reports: None Dermatologic History: Reports: Cellulitis - Infectious Disease History Infectious Disease History: Reports: C-Difficile, MRSA Other Infectious Disease History: in 2006, 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 dental extraction Cardiovascular Surgical History: Reports: None Respiratory Surgical History: Reports: None GI Surgical History: Reports: Appendectomy, Bariatric Procedure, Cholecystectomy , Colonoscopy, EGD, ERCP Other GI Surgeries/Procedures: EUS Female Surgical History: Reports: Section, Tubal Ligation Other Female Surgeries/Procedures: C-SECTIONS X3 Endocrine Surgical History: Reports: None Neurological Surgical History: Reports: Other (See Below) Other Neurological Surgeries/Procedures: brain tumor removal Musculoskeletal Surgical History: Reports: None Other Oncologic Surgeries/Procedures: Brain tumor removal Dermatological Surgical History: Reports: None Social & Family History - Family History Family Medical History: Noncontributory Cardiac: Reports: Bypass, Hypertension, [place] Respiratory: Reports: Asthma Oncologic: Reports: Colon - Caffeine Use Caffeine Use: Reports: Coffee Other Caffeine Use: 1 cup daily - Living Situation & Occupation Living situation: Reports: , with Spouse Occupation: Unemployed ED ROS GENERAL - Review of Systems Review Of Systems: See Below Constitutional: Reports: No Symptoms HEENT: Reports: No Symptoms Respiratory: Reports: No Symptoms Cardiovascular: Reports: No Symptoms Endocrine: Reports: No Symptoms GI/Abdominal: Reports: Abdominal Pain, Diarrhea, Nausea, Vomiting : Reports: No Symptoms Musculoskeletal: Reports: No Symptoms ED EXAM, GI/ABD - Physical Exam Exam: See Below Exam Limited By: No Limitations General Appearance: Alert, No Apparent Distress Ears: Normal External Exam Nose: Normal Inspection Head: Atraumatic, Normocephalic Neck: Normal Inspection Respiratory/Chest: No Respiratory Distress, Lungs Clear, Normal Breath Sounds Cardiovascular: Regular Rate, Rhythm, No Edema, No Murmur GI/Abdominal Exam: Soft, No Organomegaly, No Mass, Tender (Moderate tenderness to the left upper quandrant) Course - Vital Signs Last Recorded V/S: Last Vital Signs Temp 98.5 F 01/11/20 09:53 Pulse 83 01/11/20 09:53 Resp 16 01/11/20 09:53 BP 182/82 H 01/11/20 09:53 Pulse Ox 100 01/11/20 09:53 - Orders/Labs/Meds Orders: Active Orders 24 hr Category Date Time Status HYDROmorphone [Dilaudid] Med 01/11/20 11:28 Once 1 mg IM ONETIME ONE ED Antiemetic Medication Reflex [OM.PC] Stat Oth 01/11/20 10:17 Ordered Medication Orders Hydromorphone HCl (Dilaudid) 1 mg IM ONETIME ONE Stop: 01/11/20 11:29 Labs: Laboratory Tests 01/11/20 01/11/20 Range/Units 10:37 10:37 WBC 7.25 (3.98-10.04) K/mm3 RBC 4.26 (3.98-5.22) M/mm3 Hgb 13.5 (11.2-15.7) gm/dl Hct 41.5 (34.1-44.9) % MCV 97.4 H D (79.4-94.8) fl MCH 31.7 (25.6-32.2) pg MCHC 32.5 (32.2-35.5) g/dl RDW Std Deviation 48.1 H (36.4-46.3) fL Plt Count 251 (182-369) K/mm3 MPV 9.6 (9.4-12.3) fl Neut % (Auto) 73.5 H (34.0-71.1) % Lymph % (Auto) 17.9 L (19.3-51.7) % [place] % (Auto) 7.6 (4.7-12.5) % Eos % (Auto) 0.6 L (0.7-5.8) Baso % (Auto) 0.4 (0.1-1.2) % Neut # (Auto) 5.33 (1.56-6.13) K/mm3 Lymph # (Auto) 1.30 (1.18-3.74) K/mm3 [place] # (Auto) 0.55 H (0.24-0.36) K/mm3 Eos # (Auto) 0.04 (0.04-0.36) K/mm3 Baso # (Auto) 0.03 (0.01-0.08) K/mm3 Sodium 141 (136-145) mEq/L Potassium 4.1 (3.5-5.1) mEq/L Chloride 104 (98-107) mEq/L Carbon Dioxide 25 (21-32) mEq/L Anion Gap 16.1 H (5-15) BUN 7 (7-18) mg/dL Creatinine 0.8 (0.55-1.02) mg/dL Est Cr Clr Drug Dosing TNP Estimated GFR (MDRD) > 60 (>60) mL/min BUN/Creatinine Ratio 8.8 L (14-18) Glucose 100 (74-106) mg/dL Calcium 9.3 (8.5-10.1) mg/dL Total Bilirubin 0.3 (0.2-1.0) mg/dL AST 23 (15-37) U/L ALT 25 (14-59) U/L Alkaline Phosphatase 58 (46-116) U/L Total Protein 8.2 (6.4-8.2) g/dl Albumin 4.1 (3.4-5.0) g/dl Globulin 4.1 gm/dL Albumin/Globulin Ratio 1.0 (1-2) Lipase 228 (73-393) U/L Meds: Medications Generic Name Dose Route Start Last Admin Trade Name Freq PRN Reason Stop Dose Admin Hydromorphone HCl 1 mg 01/11/20 11:28 Dilaudid IM 01/11/20 11:29 ONETIME ONE Discontinued Medications Generic Name Dose Route Start Last Admin Trade Name Freq PRN Reason Stop Dose Admin Hydromorphone HCl 1 mg 01/11/20 10:17 01/11/20 11:06 Dilaudid IM 01/11/20 10:18 1 mg ONETIME ONE Administration Promethazine HCl 25 mg 01/11/20 10:17 01/11/20 11:06 Phenergan IM 01/11/20 10:18 25 mg ONETIME ONE Administration - Re-Assessments/Exams Free Text/Narrative Re-Assessment/Exam: 01/11/20 11:32 I ordered labs, phenergan 25mg IM and dilaudid 1mg IM. Her labs look good. I will give her another shot for pain and then discharge her home. Departure - Departure Time of Disposition: 11:35 Disposition: Home, Self-Care 01 Condition: Good Clinical Impression: Chronic abdominal pain Chronic pain Qualifiers: Chronic pain type: other chronic pain Qualified Code(s): G89.29 - Other chronic pain Nausea & vomiting Qualifiers: Vomiting type: unspecified Vomiting Intractability: non-intractable Qualified Code(s): R11.2 - Nausea with vomiting, unspecified - Discharge Information *PRESCRIPTION DRUG MONITORING PROGRAM REVIEWED*: Not Applicable *COPY OF PRESCRIPTION DRUG MONITORING REPORT IN PATIENT ALE: Not Applicable Referrals: Farzaneh Smith MD [Primary Care Provider] - 1 Week Additional Instructions: Take your medications as prescribed. Follow up with your doctor. Please return if you are worse. Sepsis Event Note - Evaluation Sepsis Screening Result: No Definite Risk - Focused Exam Vital Signs: Vital Signs Temp Pulse Resp BP Pulse Ox 01/11/20 09:53 98.5 F 83 16 182/82 H 100 Date Exam was Performed: 01/11/20 Time Exam was Performed: 11:29 - My Orders Last 24 Hours: My Active Orders 01/11/20 10:17 ED Antiemetic Medication Reflex [OM.PC] Stat 01/11/20 11:28 HYDROmorphone [Dilaudid] 1 mg IM ONETIME ONE - Assessment/Plan Last 24 Hours: My Active Orders 01/11/20 10:17 ED Antiemetic Medication Reflex [OM.PC] Stat 01/11/20 11:28 HYDROmorphone [Dilaudid] 1 mg IM ONETIME ONE
== END 2020-01-11 11:45 | disposition home or self-care (01) ==
LOC: JD.ED 09:29
DX: G89.29 Other chronic pain (principal); R10.12 Left upper quadrant pain; R11.2 Nausea with vomiting, unspecified; I10 Essential (primary) hypertension; M19.90 Unspecified osteoarthritis, unspecified site; F41.9 Anxiety disorder, unspecified; F32.9 Major depressive disorder, single episode, unspecified; E03.9 Hypothyroidism, unspecified; E66.9 Obesity, unspecified; Z90.49 Acquired absence of other specified parts of digestive tract; Z88.8 Allergy status to other drugs, medicaments and biological substances; Z79.899 Other long term (current) drug therapy
CPT/HCPCS: 36415; 80053; 83690; 85025; 96372; 99284; J1170; J2550; 99283

== ENCOUNTER 2020-01-12 16:09 | Emergency (ER) | payer BC ==
[2020-01-12] MEDS ORDERED: HYDROmorphone 1 MG/ML Syringe IM ONE (17:10)
[2020-01-12] MEDS ORDERED: Promethazine 25 MG/ML SDV IM ONE (17:11)
--- NOTE | 2020-01-12 17:19 | EDM.PDOC ---
ED HPI GENERAL MEDICAL PROBLEM - General Chief Complaint: Abdominal Pain Stated Complaint: VOMITING/ABDOMINAL PAIN Time Seen by Provider: 01/12/20 16:59 Source of Information: Reports: Patient, Old Records, RN Notes Reviewed History Limitations: Reports: No Limitations - History of Present Illness INITIAL COMMENTS - FREE TEXT/NARRATIVE: Patient is a 44-year-old female who presents to the ED for vomiting and abdominal pain. Patient is well-known to this ER for chronic left upper quadrant abdominal pain, and vomiting due to chronic pancreatitis. Patient was just seen here yesterday, and was treated in the ER with medications, she says she went home and everything felt okay until last night when the meds wore off, and she began to have more pain overnight and developed more vomiting. She states she is out of medications for nausea control, and also out of pain medications at this time. She does state that she has an appointment with a pain management doctor in [place] on Thursday for intrathecal device for her pain control. She states this is her third appointment with this particular provider, and they told her that they will formulate a plan to get the device placed on Thursday. Patient did have labs done yesterday and all of these essentially okay. She is not having any difference in pain, she states is exactly the same pain that she had yesterday. Left Abdomen Pain Score (Numeric/FACES): 9 - Related Data Allergies Allergy/AdvReac Type Severity Reaction Status Date / Time amylase [From Creon] Allergy Rash Verified 01/12/20 17:01 buprenorphine [From Butrans] Allergy Itching Verified 01/12/20 17:01 lipase [From Creon] Allergy Rash Verified 01/12/20 17:01 metoclopramide HCl Allergy Itching Verified 01/12/20 17:01 [From Reglan] protease [From Creon] Allergy Rash Verified 01/12/20 17:01 ketorolac [From Toradol] AdvReac Bleeding Verified 01/12/20 17:01 NSAIDS (Non-Steroidal AdvReac Abdominal Verified 01/12/20 17:01 Anti-Inflamma Pain prochlorperazine AdvReac Vomiting Verified 01/12/20 17:01 [From Compazine] Home Meds: Home Meds Mirtazapine 30 mg PO BEDTIME 03/14/19 [History] Pantoprazole Sodium [Protonix] 40 mg PO BID 03/14/19 [History] Prazosin HCl [Prazosin] 5 mg PO BEDTIME 03/14/19 [History] Vortioxetine [Trintellix] 10 mg PO DAILY 03/14/19 [History] ALPRAZolam [Alprazolam] 0.5 mg PO BID PRN 05/15/19 [History] Ferrous Sulfate [Iron] 650 mg PO BID 05/15/19 [History] QUEtiapine Fumarate [Quetiapine Fumarate] 75 mg PO BEDTIME 05/15/19 [History] Cholecalciferol (Vitamin D3) [Vitamin D3] 1,000 intnl unit PO DAILY 06/28/19 [ History] Zolpidem [Ambien] 10 mg PO BEDTIME 08/14/19 [History] Hydrocortisone [Cortef] 5 mg PO 1300 10/11/19 [History] Hydrocortisone [Cortef] 15 mg PO DAILY 10/11/19 [History] Levothyroxine 150 mcg PO ACBREAKFAST 10/11/19 [History] Ondansetron [Zofran] 4 mg BUCCAL Q6H PRN #20 tab 12/11/19 [Rx] Past Medical History HEENT History: Reports: Glaucoma, Otitis Media Cardiovascular History: Reports: Hypertension Other Cardiovascular History: tachycardia Gastrointestinal History: Reports: Chronic Constipation, Chronic Diarrhea ( steatorrhea), Hemorrhoids, Pancreatitis, Other (See Below) Other Gastrointestinal History: chronic pancreatitis, LUQ pain, gastric sleeve procedure, hemorrhoids Genitourinary History: Reports: UTI, Recurrent 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: Reports: Other 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: c section x3, tubes tied Musculoskeletal History: Reports: Arthritis, Fracture, Other (See Below) Other Musculoskeletal History: left foot fracture, elbow pain, wrist pain, weakness, falls Neurological History: Reports: TIA, Other (See Below) Other Neuro History: pseudotumor, shunt, benign pineal brain tumor, memory loss , seizure disorder, vertigo, brain surgery x 16 Psychiatric History: Reports: Addiction, Anxiety, Depression Endocrine/Metabolic History: Reports: [place]'s Disease, Hypothyroidism, Obesity /BMI 30+, Vitamin D Deficiency Other Endocrine/Metabolic History: hyperthyroidism, hypothyroidism, hashimotos, secondary adrenal insufficiency Hematologic History: Reports: Anemia, Other (See Below) Other Hematologic History: anti TPO antibody Dermatologic History: Reports: Cellulitis - Infectious Disease History Infectious Disease History: Reports: C-Difficile, MRSA Other Infectious Disease History: in 2006, 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 dental extraction GI Surgical History: Reports: Appendectomy, Bariatric Procedure, Cholecystectomy , Colonoscopy, EGD, ERCP Other GI Surgeries/Procedures: EUS Female Surgical History: Reports: Section (x3), Tubal Ligation Neurological Surgical History: Reports: Other (See Below) Other Neurological Surgeries/Procedures: brain tumor removal Other Oncologic Surgeries/Procedures: Brain tumor removal Social & Family History - Family History Family Medical History: Noncontributory Cardiac: Reports: Bypass, Hypertension, [place] Respiratory: Reports: Asthma Oncologic: Reports: Colon - Caffeine Use Caffeine Use: Reports: Coffee Other Caffeine Use: 1 cup daily - Living Situation & Occupation Living situation: Reports: , with Spouse Occupation: Unemployed ED ROS GENERAL - Review of Systems Review Of Systems: See Below Constitutional: Denies: Fever, Chills Respiratory: Denies: Shortness of Breath Cardiovascular: Denies: Chest Pain GI/Abdominal: Reports: Abdominal Pain, Diarrhea (Chronic steatorrhea type), Nausea, Vomiting Musculoskeletal: Reports: Back Pain ED EXAM, GI/ABD - Physical Exam Exam: See Below Exam Limited By: No Limitations General Appearance: Alert, WD/WN, No Apparent Distress Eyes: Bilateral: Normal Appearance Throat/Mouth: Normal Inspection, Normal Lips, Normal Teeth, Normal Gums, Normal Oropharynx, Normal Voice, No Airway Compromise Head: Atraumatic, Normocephalic Neck: Normal Inspection Respiratory/Chest: No Respiratory Distress, Lungs Clear, Normal Breath Sounds, No Accessory Muscle Use, Chest Non-Tender Cardiovascular: Normal Peripheral Pulses, Regular Rate, Rhythm, No Murmur GI/Abdominal Exam: Normal Bowel Sounds, Soft, No Distention, No Mass, Tender ( LUQ mainly) Extremities: Normal Inspection, Normal Capillary Refill Neurological: Alert, Oriented, Normal Cognition, No Motor/Sensory Deficits Psychiatric: Normal Affect, Normal Mood Skin Exam: Warm, Dry, Intact, Normal Color, No Rash Course - Vital Signs Last Recorded V/S: Last Vital Signs Temp 97.8 F 01/12/20 16:58 Pulse 73 01/12/20 16:58 Resp 16 01/12/20 16:58 BP 147/93 H 01/12/20 16:58 Pulse Ox 100 01/12/20 16:58 - Orders/Labs/Meds Meds: Medications Discontinued Medications Generic Name Dose Route Start Last Admin Trade Name Dominic PRN Reason Stop Dose Admin Hydromorphone HCl 2 mg 01/12/20 17:10 01/12/20 17:32 Dilaudid IM 01/12/20 17:11 2 mg ONETIME ONE Administration Promethazine HCl 25 mg 01/12/20 17:11 01/12/20 17:34 Phenergan IM 01/12/20 17:12 25 mg ONETIME ONE Administration - Re-Assessments/Exams Free Text/Narrative Re-Assessment/Exam: 01/12/20 17:43 Patient presents to the ED for evaluation of her ongoing abdominal pain. Patient does have a son here that would build to take her home. I will provide her with 2 mg IM Dilaudid and 25 mg IM Phenergan for management in the ER. She states that she has appointment on Thursday with this pain doctor. I will give her a couple oxycodone tablets to get her through until Thursday along with Phenergan, for pain management/nausea control over the weekend. Occasions will be provided of the [employer] machine at this time per patient request. Departure - Departure Time of Disposition: 17:44 Disposition: Home, Self-Care 01 Condition: Fair Clinical Impression: Chronic LUQ pain, Nausea and vomiting in adult - Discharge Information *PRESCRIPTION DRUG MONITORING PROGRAM REVIEWED*: Yes *COPY OF PRESCRIPTION DRUG MONITORING REPORT IN PATIENT ALE: No Instructions: Opioid Pain Medicine Information, [id number], Intrathecal Pain Pump Information Referrals: Farzaneh Smith MD [Primary Care Provider] - Forms: ED Department Discharge Additional Instructions: You were evaluated in the ER today regarding your chronic abdominal pain. You were given an injection for nausea and pain control, this did seem to help control your symptoms fairly well. You were given a few tablets of pain medication to get through until Thursday, and also some nausea medication to help with nausea during this time as well. Please take as directed. Do not drive while taking the pain medication. The pain medication can cause constipation recommend you take a stool softener like MiraLAX while on these medications if you are having issues with constipation. Strongly recommend you keep the appointment with your pain doctor on [place] for the pain pump evaluation and possible insertion. Please try to stick with a clear liquid diet over the next 24 hours yet and advance to bland as tolerated until you can keep food or fluids down. Please return to the ER at any time if your symptoms change or worsen. Sepsis Event Note - Evaluation Sepsis Screening Result: No Definite Risk - Focused Exam Vital Signs: Vital Signs Temp Pulse Resp BP Pulse Ox 01/12/20 16:58 97.8 F 73 16 147/93 H 100 Date Exam was Performed: 01/12/20 Time Exam was Performed: 17:52
[2020-01-12 18:26] VITALS: BP 155/96; PULSE 88
== END 2020-01-12 18:22 | disposition home or self-care (01) ==
LOC: JD.ED 16:09
DX: R10.12 Left upper quadrant pain (principal); R11.2 Nausea with vomiting, unspecified; I10 Essential (primary) hypertension; F41.9 Anxiety disorder, unspecified; F32.9 Major depressive disorder, single episode, unspecified; E03.9 Hypothyroidism, unspecified; E66.9 Obesity, unspecified; Z88.8 Allergy status to other drugs, medicaments and biological substances; Z79.899 Other long term (current) drug therapy; Z86.73 Personal history of transient ischemic attack (TIA), and cerebral infarction without residual deficits; Z85.841 Personal history of malignant neoplasm of brain
CPT/HCPCS: 96372; 99284; J1170; J2550; 99283

== ENCOUNTER 2020-01-22 10:54 | Emergency (ER) | payer BC, MEDICARE ==
[2020-01-22 11:12] VITALS: BP 165/110; PULSE 89
[2020-01-22] MEDS ORDERED: Ondansetron 4 MG Tab.DIS PO ONE (11:29)
[2020-01-22] MEDS ORDERED: HYDROmorphone 1 MG/ML Syringe IM ONE (11:29)
--- NOTE | 2020-01-22 11:37 | EDM.PDOC ---
ED HPI GENERAL MEDICAL PROBLEM - General Chief Complaint: Abdominal Pain Stated Complaint: PANCREATITIS Time Seen by Provider: 01/22/20 11:09 Source of Information: Reports: Patient, Old Records, RN Notes Reviewed History Limitations: Reports: No Limitations - History of Present Illness INITIAL COMMENTS - FREE TEXT/NARRATIVE: Patient is a 44-year-old female who presents to the ED for the evaluation of her chronic pancreatitis. Patient is very well-known to this ER for these presenting symptoms. Patient notes that she woke up at around 12:30 this morning, and had a few episodes of vomiting and diarrhea, unfortunately she states that she did not have any sort of nausea meds at home, for which she normally has a stock of to take. She was able to go back to sleep and woke up at around 3:30 this morning with increasing left upper quadrant abdominal pain. Patient's not complaining of any fevers or chills, she is not actively vomiting at the time of triage. She notes that she is having the fatty type diarrhea that she normally has. She does state that she had an evaluation from a doctor in [place] and is scheduled to get a spinal stimulator for pain management by Dr. Carmen on February 01. Patient's primary care provider is Dr. Farzaneh Smith. Patient states she cannot make it until tomorrow to try to be seen by her primary care provider so she comes to the ER for management. The patient states that her pain is in her left upper quadrant mainly and radiates to her back, like her typical abdominal pains. Upper Abdomen Pain Score (Numeric/FACES): 9 - Related Data Allergies Allergy/AdvReac Type Severity Reaction Status Date / Time amylase [From Creon] Allergy Rash Verified 01/22/20 11:05 buprenorphine [From Butrans] Allergy Itching Verified 01/22/20 11:05 lipase [From Creon] Allergy Rash Verified 01/22/20 11:05 metoclopramide HCl Allergy Itching Verified 01/22/20 11:05 [From Reglan] protease [From Creon] Allergy Rash Verified 01/22/20 11:05 ketorolac [From Toradol] AdvReac Bleeding Verified 01/22/20 11:05 NSAIDS (Non-Steroidal AdvReac Abdominal Verified 01/22/20 11:05 Anti-Inflamma Pain prochlorperazine AdvReac Vomiting Verified 01/22/20 11:05 [From Compazine] Home Meds: Home Meds Mirtazapine 30 mg PO BEDTIME 03/14/19 [History] Pantoprazole Sodium [Protonix] 40 mg PO BID 03/14/19 [History] Prazosin HCl [Prazosin] 5 mg PO BEDTIME 03/14/19 [History] Vortioxetine [Trintellix] 10 mg PO DAILY 03/14/19 [History] ALPRAZolam [Alprazolam] 0.5 mg PO BID PRN 05/15/19 [History] Ferrous Sulfate [Iron] 650 mg PO BID 05/15/19 [History] QUEtiapine Fumarate [Quetiapine Fumarate] 75 mg PO BEDTIME 05/15/19 [History] Cholecalciferol (Vitamin D3) [Vitamin D3] 1,000 intnl unit PO DAILY 06/28/19 [ History] Zolpidem [Ambien] 10 mg PO BEDTIME 08/14/19 [History] Hydrocortisone [Cortef] 5 mg PO 1300 10/11/19 [History] Hydrocortisone [Cortef] 15 mg PO DAILY 10/11/19 [History] Levothyroxine 150 mcg PO ACBREAKFAST 10/11/19 [History] Ondansetron [Zofran] 4 mg BUCCAL Q6H PRN #20 tab 12/11/19 [Rx] Past Medical History HEENT History: Reports: Glaucoma, Otitis Media Cardiovascular History: Reports: Hypertension Other Cardiovascular History: tachycardia Gastrointestinal History: Reports: Chronic Constipation, Chronic Diarrhea, Hemorrhoids, Pancreatitis (chronic), Other (See Below) Other Gastrointestinal History: LUQ pain, hemorrhoids Genitourinary History: Reports: UTI, Recurrent 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: Reports: Other 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: c section x3, tubes tied Musculoskeletal History: Reports: Arthritis, Fracture, Other (See Below) Other Musculoskeletal History: left foot fracture, elbow pain, wrist pain, weakness, falls Neurological History: Reports: TIA, Other (See Below) Other Neuro History: pseudotumor, shunt, benign pineal brain tumor, memory loss , seizure disorder, vertigo, brain surgery x 16 Psychiatric History: Reports: Addiction, Anxiety, Depression Endocrine/Metabolic History: Reports: [place]'s Disease, Hypothyroidism, Obesity /BMI 30+, Vitamin D Deficiency Other Endocrine/Metabolic History: hyperthyroidism, hypothyroidism, hashimotos, secondary adrenal insufficiency Hematologic History: Reports: Anemia, Other (See Below) Other Hematologic History: anti TPO antibody Dermatologic History: Reports: Cellulitis - Infectious Disease History Infectious Disease History: Reports: C-Difficile, MRSA Other Infectious Disease History: in 2006, 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." - Past Surgical History Head Surgeries/Procedures: Reports: Shunt HEENT Surgical History: Reports: Oral Surgery Other HEENT Surgeries/Procedures: [place] teeth removal. dental extraction GI Surgical History: Reports: Appendectomy, Bariatric Procedure (gastric sleeve) , Cholecystectomy, Colonoscopy, EGD, ERCP Other GI Surgeries/Procedures: EUS Female Surgical History: Reports: Section, Tubal Ligation Neurological Surgical History: Reports: Other (See Below) Other Neurological Surgeries/Procedures: brain tumor removal Other Oncologic Surgeries/Procedures: Brain tumor removal Social & Family History - Family History Family Medical History: Noncontributory Cardiac: Reports: Bypass, Hypertension, [place] Respiratory: Reports: Asthma Oncologic: Reports: Colon - Tobacco Use Smoking Status *Q: Never Smoker Second Hand Smoke Exposure: No - Caffeine Use Caffeine Use: Reports: None Other Caffeine Use: 1 cup daily - Recreational Drug Use Recreational Drug Use: No - Living Situation & Occupation Living situation: Reports: , with Spouse Occupation: Unemployed ED ROS GENERAL - Review of Systems Review Of Systems: See Below Constitutional: Reports: Decreased Appetite (d/t nausea/vomiting/diarrhea). Denies: Fever, Chills Respiratory: Denies: Shortness of Breath Cardiovascular: Denies: Chest Pain GI/Abdominal: Reports: Abdominal Pain (LUQ w radiation to back), Diarrhea, Nausea, Vomiting : Denies: Dysuria, Frequency, Urgency Musculoskeletal: Reports: Back Pain ED EXAM, GI/ABD - Physical Exam Exam: See Below Exam Limited By: No Limitations General Appearance: Alert, WD/WN, No Apparent Distress Eyes: Bilateral: Normal Appearance Ears: Normal External Exam Nose: Normal Inspection Throat/Mouth: Normal Inspection, Normal Lips, Normal Teeth, Normal Gums, Normal Oropharynx, Normal Voice, No Airway Compromise Head: Atraumatic, Normocephalic Neck: Normal Inspection Respiratory/Chest: No Respiratory Distress, Lungs Clear, Normal Breath Sounds, No Accessory Muscle Use, Chest Non-Tender Cardiovascular: Normal Peripheral Pulses, Regular Rate, Rhythm, No Murmur GI/Abdominal Exam: Normal Bowel Sounds, Soft, No Distention, No Mass, Tender ( LUQ, with radiation to back on palpation) Extremities: Normal Inspection, Normal Capillary Refill Neurological: Alert, Oriented, Normal Cognition, No Motor/Sensory Deficits Psychiatric: Normal Affect, Normal Mood Skin Exam: Warm, Dry, Intact, Normal Color, No Rash Course - Vital Signs Last Recorded V/S: Last Vital Signs Temp 96.9 F 01/22/20 11:09 Pulse 89 01/22/20 11:09 Resp 16 01/22/20 11:09 BP 165/110 H 01/22/20 11:09 Pulse Ox 97 01/22/20 11:09 - Orders/Labs/Meds Meds: Medications Discontinued Medications Generic Name Dose Route Start Last Admin Trade Name Freq PRN Reason Stop Dose Admin Hydromorphone HCl 2 mg 01/22/20 11:29 01/22/20 11:36 Dilaudid IM 01/22/20 11:30 2 mg ONETIME ONE Administration Ondansetron HCl 4 mg 01/22/20 11:29 01/22/20 11:37 Zofran Odt PO 01/22/20 11:30 4 mg ONETIME ONE Administration - Re-Assessments/Exams Free Text/Narrative Re-Assessment/Exam: 01/22/20 11:35 Patient presents to the ED for evaluation of her left upper quadrant abdominal pain. The patient notes that she had labs done on January 11, and does not necessarily think that symptoms have worsened, these are the same symptoms that she has been having, but just has no way to care for this at home. I will give the patient 2 mg IM Dilaudid and 4 mg Zofran for initial management in the ED, I plan to send her home with a few tablets of percocet 5/325 and some nausea medications to the [facility] [employer] machine, so she can follow-up with her primary care provider sometime this week so she may get a prescription for pain medication until she can get her spinal stimulator placed. She agrees to this plan at this time. Departure - Departure Time of Disposition: 11:41 Disposition: Home, Self-Care 01 Condition: Fair Clinical Impression: Pancreatitis - Discharge Information *PRESCRIPTION DRUG MONITORING PROGRAM REVIEWED*: Yes *COPY OF PRESCRIPTION DRUG MONITORING REPORT IN PATIENT ALE: No Instructions: Nausea and Vomiting, Adult, [id number] Referrals: Farzaneh Smith MD [Primary Care Provider] - Forms: ED Department Discharge Additional Instructions: You were evaluated in the ER today regarding your upper abdominal pain. No labs or imaging were done at today's visit. It appears that your symptoms are likely due the chronic pancreatitis that you suffer from. You were given some injections of pain medication and nausea medications at today's visit, this did seem to help relieve your symptoms. You were given a few tablets of pain medication, Percocet 5/325 through the [facility] machine, you were given 20 tablets, please take 2 tablets every 6 hours as needed for further pain relief. You were given another prescription for Zofran, 1 tablet dissolvable under your tongue every 8 hours as needed for nausea. You will need to call Dr. Smith tomorrow morning and get an appointment scheduled for continuation of pain/nausea medication until you can make it to your spinal stimulator surgery appointment on February 01. Please return to the ER at any time however if your symptoms change or worsen. Sepsis Event Note - Evaluation Sepsis Screening Result: No Definite Risk - Focused Exam Vital Signs: Vital Signs Temp Pulse Resp BP Pulse Ox 01/22/20 11:09 96.9 F 89 16 165/110 H 97 Date Exam was Performed: 01/22/20 Time Exam was Performed: 22:44
== END 2020-01-22 11:57 | disposition home or self-care (01) ==
LOC: JD.ED 10:54
DX: K85.90 Acute pancreatitis without necrosis or infection, unspecified (principal); I10 Essential (primary) hypertension; F41.9 Anxiety disorder, unspecified; F32.9 Major depressive disorder, single episode, unspecified; D64.9 Anemia, unspecified; E03.9 Hypothyroidism, unspecified; E66.9 Obesity, unspecified; Z68.37 Body mass index [BMI] 37.0-37.9, adult; Z88.8 Allergy status to other drugs, medicaments and biological substances; Z86.73 Personal history of transient ischemic attack (TIA), and cerebral infarction without residual deficits; Z79.899 Other long term (current) drug therapy
CPT/HCPCS: 96372; 99283; A9270; J1170

== ENCOUNTER 2020-01-25 08:14 | Emergency (ER) | payer BC, MEDICARE ==
[2020-01-25] MEDS ORDERED: HYDROmorphone 1 MG/ML Syringe IM ONE (09:16)
[2020-01-25] MEDS ORDERED: Promethazine 25 MG/ML SDV IM ONE (09:18)
--- NOTE | 2020-01-25 09:26 | EDM.PDOC ---
<Rip Chandler - Last Filed: 01/25/20 09:59> ED HPI GENERAL MEDICAL PROBLEM - General Chief Complaint: Abdominal Pain Stated Complaint: PANCREATITIS Time Seen by Provider: 01/25/20 08:31 Source of Information: Reports: Patient History Limitations: Reports: No Limitations - History of Present Illness INITIAL COMMENTS - FREE TEXT/NARRATIVE: Brisa presents today with complaints of abdominal pain related to her pancreatitis which she states is the same pain she always has when she comes in to the ED. She states that the pain has remained consistent and she is still having the tarry and fatty stools. Today she denies any pain beyond the LUQ to back, she denies any fever, tachycardia, SOB, cough, chest pain, headache, vomiting or nausea. She confirms that she came in to the ED 2 days ago on 2019 at 10:44 p.m. and was given a 2 mg shot of Dilaudid and was additionally sent home with 20 Percocet which she was supposed to take 2 every 6 hours. She states she woke up this morning and was out of Percocet and just wants something to get through her pain today and make it to February 01 when she has an appointment with Dr. Carmen in [place] at the [facility] where she will be receiving a spine stimulator that is supposed to help with her pain. She additionally confirms that she has an allergy to NSAIDs and to Tordol as well. When mentioned that she does not have Tordol in her allergy list she stated that she only has an allergy to it when "I take it orally, the injection doesn't hurt me". I also asked what her plan for pain was if she was given her typical Phenergan injection today that she normally receives, but it only lasts awhile, and she informed me that her daughter is staying with her and will be able to help take care of her until she leaves for [place] appointment next week. Left Abdominal Pain Score (Numeric/FACES): 8 - Related Data Allergies Allergy/AdvReac Type Severity Reaction Status Date / Time amylase [From Creon] Allergy Rash Verified 01/25/20 08:28 buprenorphine [From Butrans] Allergy Itching Verified 01/25/20 08:28 lipase [From Creon] Allergy Rash Verified 01/25/20 08:28 metoclopramide HCl Allergy Itching Verified 01/25/20 08:28 [From Reglan] protease [From Creon] Allergy Rash Verified 01/25/20 08:28 ketorolac [From Toradol] AdvReac Bleeding Verified 01/25/20 08:28 NSAIDS (Non-Steroidal AdvReac Abdominal Verified 01/25/20 08:28 Anti-Inflamma Pain prochlorperazine AdvReac Vomiting Verified 01/25/20 08:28 [From Compazine] Home Meds: Home Meds Mirtazapine 30 mg PO BEDTIME 03/14/19 [History] Pantoprazole Sodium [Protonix] 40 mg PO BID 03/14/19 [History] Prazosin HCl [Prazosin] 5 mg PO BEDTIME 03/14/19 [History] Vortioxetine [Trintellix] 10 mg PO DAILY 03/14/19 [History] ALPRAZolam [Alprazolam] 0.5 mg PO BID PRN 05/15/19 [History] Ferrous Sulfate [Iron] 650 mg PO BID 05/15/19 [History] QUEtiapine Fumarate [Quetiapine Fumarate] 75 mg PO BEDTIME 05/15/19 [History] Cholecalciferol (Vitamin D3) [Vitamin D3] 1,000 intnl unit PO DAILY 06/28/19 [ History] Zolpidem [Ambien] 10 mg PO BEDTIME 08/14/19 [History] Hydrocortisone [Cortef] 5 mg PO 1300 10/11/19 [History] Hydrocortisone [Cortef] 15 mg PO DAILY 10/11/19 [History] Levothyroxine 150 mcg PO ACBREAKFAST 10/11/19 [History] Ondansetron [Zofran] 4 mg BUCCAL Q6H PRN #20 tab 12/11/19 [Rx] Past Medical History - Past Health History Medical/Surgical History: Denies Medical/Surgical History HEENT History: Reports: Glaucoma, Otitis Media Cardiovascular History: Reports: Hypertension Other Cardiovascular History: tachycardia Gastrointestinal History: Reports: Chronic Constipation, Chronic Diarrhea, Hemorrhoids, Pancreatitis, Other (See Below) Other Gastrointestinal History: LUQ pain, hemorrhoids Genitourinary History: Reports: UTI, Recurrent 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: Reports: Other 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: c section x3, tubes tied Musculoskeletal History: Reports: Arthritis, Fracture, Other (See Below) Other Musculoskeletal History: left foot fracture, elbow pain, wrist pain, weakness, falls Neurological History: Reports: TIA, Other (See Below) Other Neuro History: pseudotumor, shunt, benign pineal brain tumor, memory loss , seizure disorder, vertigo, brain surgery x 16 Psychiatric History: Reports: Addiction, Anxiety, Depression 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, Hypothyroidism, Obesity /BMI 30+, Vitamin D Deficiency Other Endocrine/Metabolic History: hyperthyroidism, hypothyroidism, hashimotos, secondary adrenal insufficiency Hematologic History: Reports: Anemia, Other (See Below) Other Hematologic History: anti TPO antibody Immunologic History: Reports: None Dermatologic History: Reports: Cellulitis - Infectious Disease History Infectious Disease History: Reports: C-Difficile, MRSA Other Infectious Disease History: in 2006, 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." - Past Surgical History Head Surgeries/Procedures: Reports: Shunt HEENT Surgical History: Reports: Oral Surgery Other HEENT Surgeries/Procedures: [place] teeth removal. dental extraction GI Surgical History: Reports: Appendectomy, Bariatric Procedure, Cholecystectomy , Colonoscopy, EGD, ERCP Other GI Surgeries/Procedures: EUS Female Surgical History: Reports: Section, Tubal Ligation Neurological Surgical History: Reports: Other (See Below) Other Neurological Surgeries/Procedures: brain tumor removal Social & Family History - Family History Family Medical History: Noncontributory Cardiac: Reports: Bypass, Hypertension, [place] Respiratory: Reports: Asthma Oncologic: Reports: Colon - Tobacco Use Smoking Status *Q: Never Smoker Second Hand Smoke Exposure: No - Caffeine Use Caffeine Use: Reports: None Other Caffeine Use: 1 cup daily - Recreational Drug Use Recreational Drug Use: No - Living Situation & Occupation Living situation: Reports: , with Spouse Occupation: Unemployed ED ROS GENERAL - Review of Systems Review Of Systems: See Below Constitutional: Reports: No Symptoms HEENT: Reports: No Symptoms Respiratory: Reports: No Symptoms Cardiovascular: Reports: No Symptoms Endocrine: Reports: Polyuria GI/Abdominal: Reports: Abdominal Pain (pancreatitis pain she has had prior ), Black Stool (tarry stool/fatty stool) : Reports: No Symptoms Musculoskeletal: Reports: No Symptoms Skin: Reports: No Symptoms Neurological: Reports: No Symptoms Psychiatric: Reports: Other (probable drug seeking behavior and tendencies as seen by prior patient visits as well ) Hematologic/Lymphatic: Reports: No Symptoms Immunologic: Reports: No Symptoms ED EXAM, GI/ABD - Physical Exam Exam: See Below Exam Limited By: Other (Pain in LUQ out of proportion to exam and vitals) General Appearance: Alert, WD/WN, No Apparent Distress Throat/Mouth: Normal Inspection, Normal Lips, Normal Teeth, Normal Gums, Normal Oropharynx, Normal Voice, No Airway Compromise Head: Atraumatic, Normocephalic Respiratory/Chest: No Respiratory Distress, Lungs Clear, Normal Breath Sounds, No Accessory Muscle Use Cardiovascular: Normal Peripheral Pulses, Regular Rate, Rhythm, No Edema, No Gallop, No Murmur GI/Abdominal Exam: Normal Bowel Sounds, Soft, No Distention, No Mass, Guarding ( aggressively guarding her LUQ ), Tender (pain in LUQ with and without palpation) Back Exam: Normal Inspection, Full Range of Motion, Other (pain when pushing on her left mid back ) Neurological: Alert, Oriented, Normal Cognition, No Motor/Sensory Deficits Psychiatric: Normal Affect, Anxious, Other (Slightly demanding demeanor of pain treatment ) Skin Exam: Warm, Dry, Intact, Normal Color, No Rash Lymphatic: No Adenopathy Course - Vital Signs Last Recorded V/S: Last Vital Signs Temp 97.1 F 01/25/20 09:28 Pulse 76 01/25/20 09:50 Resp 20 01/25/20 09:50 BP 155/95 H 01/25/20 09:28 Pulse Ox 91 L 01/25/20 09:50 - Orders/Labs/Meds Meds: Medications Discontinued Medications Generic Name Dose Route Start Last Admin Trade Name Freq PRN Reason Stop Dose Admin Hydromorphone HCl 2 mg 01/25/20 09:16 01/25/20 09:25 Dilaudid IM 01/25/20 09:17 2 mg ONETIME ONE Administration Promethazine HCl 37.5 mg 01/25/20 09:18 01/25/20 09:23 Phenergan IM 01/25/20 09:19 37.5 mg ONETIME ONE Administration Departure - Departure Disposition: Home, Self-Care 01 Clinical Impression: Vomiting Qualifiers: Vomiting type: unspecified Vomiting Intractability: non-intractable Nausea presence: with nausea Qualified Code(s): R11.2 - Nausea with vomiting, unspecified Abdominal pain Qualifiers: Abdominal location: left upper quadrant Qualified Code(s): R10.12 - Left upper quadrant pain - Discharge Information Instructions: Abdominal Pain, Adult, [id number] Referrals: Farzaneh Smith MD [Primary Care Provider] - Forms: ED Department Discharge Additional Instructions: Clear liquids until later today, than very careful bland diet as tolerated. You have been given sedating medication here in the ED so no driving today. follow-up clinic as needed. Continue Zofran and other medications previously prescribed as needed. Sepsis Event Note - Evaluation Sepsis Screening Result: No Definite Risk - Focused Exam Vital Signs: Vital Signs Temp Pulse Resp BP Pulse Ox 01/25/20 09:50 76 20 91 L 01/25/20 09:28 97.1 F 20 155/95 H 99 01/25/20 08:20 97.5 F 82 20 166/87 H 99 Date Exam was Performed: 01/25/20 Time Exam was Performed: 09:59 <Darien Barrios L - Last Filed: 01/25/20 10:02> Course - Re-Assessments/Exams Free Text/Narrative Re-Assessment/Exam: 01/25/20 10:01 Initial hx and exam today was done by DORYS Lemus student. I agree with his hx and exam a documented. I have also interviewed and examained patient. discharge instr. as documented. Departure - Departure Time of Disposition: 09:47 Condition: Fair Sepsis Event Note - Focused Exam Date Exam was Performed: 01/25/20 Time Exam was Performed: 10:01
[2020-01-25 09:29] VITALS: BP 155/95
[2020-01-25 10:00] VITALS: PULSE 76
== END 2020-01-25 09:55 | disposition home or self-care (01) ==
LOC: JD.ED 08:14
DX: R10.12 Left upper quadrant pain (principal); R11.2 Nausea with vomiting, unspecified; I10 Essential (primary) hypertension; F41.9 Anxiety disorder, unspecified; F32.9 Major depressive disorder, single episode, unspecified; E03.9 Hypothyroidism, unspecified; D64.9 Anemia, unspecified; Z88.8 Allergy status to other drugs, medicaments and biological substances; Z79.899 Other long term (current) drug therapy; Z86.73 Personal history of transient ischemic attack (TIA), and cerebral infarction without residual deficits
CPT/HCPCS: 96372; 99283; J1170; J2550

== ENCOUNTER 2020-01-26 15:08 | Emergency (ER) | payer BC, MEDICARE ==
[2020-01-26 15:17] VITALS: BP 130/90; PULSE 79
--- NOTE | 2020-01-26 16:35 | EDM.PDOC ---
ED HPI GENERAL MEDICAL PROBLEM - General Chief Complaint: Gastrointestinal Problem Stated Complaint: [facility] Time Seen by Provider: 01/26/20 16:35 Source of Information: Reports: Patient History Limitations: Reports: No Limitations - History of Present Illness INITIAL COMMENTS - FREE TEXT/NARRATIVE: 44-year-old female presents to the ED with an acute exacerbation of severe left upper quadrant abdominal pain rating through to her back character characteristic of what she has been experiencing for the last 5 to 6 years and presumed to be due to recurrent chronic relapsing pancreatitis. She is awaiting a dural implant which will be a stimulator for pain relief on February 01 in [place]. She states at this point time this is the worst that she is ever had pain in the last several months. She is vomiting has not kept anything down for the last 2 days. She was brought to the ED per [facility] this morning. She did receive 2 mg of Dilaudid IM in route to the hospital. She still rates her pain is 8 out of 10. Associated nausea and vomiting and some bright red bleeding per rectum which she has had intermittently since using Creon which they told her will cause intermittent flareups of bowel inflammation for up to 6 months. She also has chronic the diarrhea due to stay out of rehab which could be aggravating rectal hemorrhoids. She states she has had no bleeding for the last 8 hours and does not wish me to look into the rectal vault with a sigmoidoscope at this time. Onset: Sudden Onset Date: 01/25/20 (Left upper quadrant abdominal pain started yesterday with associated nausea and vomiting and has progressed in intensity.) Duration: Hour(s):, Getting Worse Location: Reports: Abdomen (Her left upper quadrant abdominal pain rating through to her back characteristic of chronic relapsing pancreatitis which she has had for the last 6 years) Quality: Reports: Ache Severity: Severe (And is described as a deep aching pain 8 out of 10) Improves with: Reports: None Worsens with: Reports: None Context: Reports: Other (Chronic relapsing pancreatitis). 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) (Did receive 2 mg of Dilaudid several hours ago by paramedics in [facility].) Abdomen Pain Score (Numeric/FACES): 4 - Related Data Allergies Allergy/AdvReac Type Severity Reaction Status Date / Time amylase [From Creon] Allergy Rash Verified 01/26/20 15:18 buprenorphine [From Butrans] Allergy Itching Verified 01/26/20 15:18 lipase [From Creon] Allergy Rash Verified 01/26/20 15:18 metoclopramide HCl Allergy Itching Verified 01/26/20 15:18 [From Reglan] protease [From Creon] Allergy Rash Verified 01/26/20 15:18 ketorolac [From Toradol] AdvReac Bleeding Verified 01/26/20 15:18 NSAIDS (Non-Steroidal AdvReac Abdominal Verified 01/26/20 15:18 Anti-Inflamma Pain prochlorperazine AdvReac Vomiting Verified 01/26/20 15:18 [From Compazine] Home Meds: Home Meds Mirtazapine 30 mg PO BEDTIME 03/14/19 [History] Pantoprazole Sodium [Protonix] 40 mg PO BID 03/14/19 [History] Prazosin HCl [Prazosin] 5 mg PO BEDTIME 03/14/19 [History] Vortioxetine [Trintellix] 10 mg PO DAILY 03/14/19 [History] Ferrous Sulfate [Iron] 650 mg PO BID 05/15/19 [History] QUEtiapine Fumarate [Quetiapine Fumarate] 75 mg PO BEDTIME 05/15/19 [History] Cholecalciferol (Vitamin D3) [Vitamin D3] 1,000 intnl unit PO DAILY 06/28/19 [ History] Hydrocortisone [Cortef] 5 mg PO 1300 10/11/19 [History] Hydrocortisone [Cortef] 15 mg PO DAILY 10/11/19 [History] Levothyroxine 150 mcg PO ACBREAKFAST 10/11/19 [History] Ondansetron [Zofran] 4 mg BUCCAL Q6H PRN #20 tab 12/11/19 [Rx] oxyCODONE HCl/Acetaminophen [Percocet 5-325 mg Tablet] 1 - 2 each PO Q4H PRN # 30 tablet 01/26/20 [Rx] Past Medical History - Past Health History Medical/Surgical History: Denies Medical/Surgical History HEENT History: Reports: Glaucoma, Otitis Media Cardiovascular History: Reports: Hypertension Other Cardiovascular History: tachycardia Gastrointestinal History: Reports: Chronic Constipation, Chronic Diarrhea, Hemorrhoids, Pancreatitis, Other (See Below) Other Gastrointestinal History: LUQ pain, hemorrhoids Genitourinary History: Reports: UTI, Recurrent ROUTE JUMPER History: Reports: Other ROUTE JUMPER History: c section x3, tubes tied Musculoskeletal History: Reports: Arthritis, Fracture, Other (See Below) Other Musculoskeletal History: left foot fracture, elbow pain, wrist pain, weakness, falls Neurological History: Reports: TIA, Other (See Below) Other Neuro History: pseudotumor, shunt, benign pineal brain tumor, memory loss , seizure disorder, vertigo, brain surgery x 16 Psychiatric History: Reports: Addiction, Anxiety, Depression Endocrine/Metabolic History: Reports: [place]'s Disease, Hypothyroidism, Obesity /BMI 30+, Vitamin D Deficiency Other Endocrine/Metabolic History: hyperthyroidism, hypothyroidism, hashimotos, secondary adrenal insufficiency Hematologic History: Reports: Anemia, Other (See Below) Other Hematologic History: anti TPO antibody Immunologic History: Reports: None Dermatologic History: Reports: Cellulitis - Infectious Disease History Infectious Disease History: Reports: C-Difficile, MRSA Other Infectious Disease History: in 2006, 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 dental extraction GI Surgical History: Reports: Appendectomy, Bariatric Procedure, Cholecystectomy , Colonoscopy, EGD, ERCP Other GI Surgeries/Procedures: EUS Female Surgical History: Reports: Section, Tubal Ligation Neurological Surgical History: Reports: Other (See Below) Other Neurological Surgeries/Procedures: brain tumor removal Social & Family History - Family History Family Medical History: Noncontributory Cardiac: Reports: Bypass, Hypertension, [place] Respiratory: Reports: Asthma Oncologic: Reports: Colon - Tobacco Use Smoking Status *Q: Never Smoker Second Hand Smoke Exposure: No - Caffeine Use Caffeine Use: Reports: None Other Caffeine Use: 1 cup daily - Recreational Drug Use Recreational Drug Use: No - Living Situation & Occupation Living situation: Reports: , with Spouse Occupation: Unemployed ED ROS GENERAL - Review of Systems Review Of Systems: See Below Constitutional: Reports: Malaise, Weakness, Fatigue, Decreased Appetite. Denies : Fever, Chills HEENT: Reports: No Symptoms Respiratory: Reports: No Symptoms, Shortness of Breath (Active shortness of breath is taking a deep breath makes the left upper quadrant abdominal pain much worse.) Cardiovascular: Reports: No Symptoms Endocrine: Reports: Fatigue GI/Abdominal: Reports: Abdominal Pain, Diarrhea (Chronic relapsing pancreatitis with left upper quadrant abdominal pain and epigastric pain.), Hematochezia ( Did have some bright red bleeding per rectum this morning around 0600 hrs. which she has had intermittently but nothing since.), Nausea ( [place] diarrhea.), Vomiting (Remittent nausea and vomiting after the pain starts in her left upper quadrant of the abdomen.) : Reports: No Symptoms Musculoskeletal: Reports: Back Pain (Pain in her left flank radiating from her left upper quadrant of her abdomen.) Skin: Reports: No Symptoms Neurological: Reports: No Symptoms Psychiatric: Reports: No Symptoms Hematologic/Lymphatic: Reports: No Symptoms Immunologic: Reports: No Symptoms ED EXAM, GI/ABD - Physical Exam Exam: See Below Exam Limited By: No Limitations General Appearance: Alert, WD/WN, Moderate Distress, Other (Temperature is 36.9 with pulse of 79 in sinus respiratory to 13 BP 130/90 with O2 sats of 99% on room air.) Eyes: Bilateral: Normal Appearance (No scleral icterus or blepharal pallor identified) Throat/Mouth: Other (Is mildly dry and coated.) Head: Atraumatic, Normocephalic Neck: Normal Inspection, Supple, Non-Tender, Full Range of Motion. No: Lymphadenopathy (L), Lymphadenopathy (R) Respiratory/Chest: No Respiratory Distress, Lungs Clear, Normal Breath Sounds, No Accessory Muscle Use, Chest Non-Tender Cardiovascular: Normal Peripheral Pulses, Regular Rate, Rhythm, No Edema, No Gallop, No Murmur, No Rub GI/Abdominal Exam: Guarding (Very tender to palpation left upper quadrant of the abdomen with guarding), Tender, Abnormal Bowel Sounds (All sounds are very quiesced sent in all 4 quadrants.). No: Rigid, Rebound Back Exam: Normal Inspection, Full Range of Motion, CVA Tenderness (L), Decreased Range of Motion. No: CVA Tenderness (R) (Mild) Extremities: Normal Inspection, Normal Range of Motion, Non-Tender Neurological: Alert, Oriented, CN II-XII Intact, Normal Cognition, Normal Gait Psychiatric: Anxious Skin Exam: Warm, Dry, Intact, Normal Color, No Rash Course - Vital Signs Last Recorded V/S: Last Vital Signs Temp 36.9 C 01/26/20 15:11 Pulse 79 03/12/20 15:11 Resp 13 01/26/20 15:11 BP 130/90 01/26/20 15:11 Pulse Ox 99 01/26/20 15:11 - Orders/Labs/Meds Meds: Medications Discontinued Medications Generic Name Dose Route Start Last Admin Trade Name Freq PRN Reason Stop Dose Admin Hydrocortisone Sodium Succinate 100 mg 01/26/20 16:44 01/26/20 16:59 Solu-Cortef IM 01/26/20 16:45 100 mg ONETIME ONE Administration Hydromorphone HCl 2 mg 01/26/20 16:40 01/26/20 16:53 Dilaudid IVPUSH 01/26/20 16:41 2 mg ONETIME ONE Administration Hydromorphone HCl 2 mg 01/26/20 16:46 01/26/20 16:54 Dilaudid IM 01/26/20 16:47 Not Given ONETIME ONE Lorazepam 2 mg 01/26/20 16:44 01/26/20 17:05 Ativan IM 01/26/20 16:45 2 mg ONETIME ONE Administration Promethazine HCl 37.5 mg 01/26/20 16:44 01/26/20 17:01 Phenergan IM 01/26/20 16:45 37.5 mg ONETIME ONE Administration - Radiology Interpretation Free Text/Narrative:: 44-year-old female presents to the ED with a recurrence of her chronic relapsing pancreatitis with severe left upper quadrant abdominal pain rating through to her back with associated nausea and vomiting. Plan IM Dilaudid 2 mg with Ativan 2 mg IM Phenergan 25 mg IM and cortisone 100 mg IM as she is known to be cortisol deficient and cannot keep her medication down. I will send her with a script for Percocet 15/325mg tabs --1-2 Q 4Hrs prn for pain relief. Stop doing the labs as they are almost always normal although she has had intermittent bouts of mildly elevated lipase. Departure - Departure Time of Disposition: 17:20 Disposition: Home, Self-Care 01 Condition: Serious Clinical Impression: Chronic relapsing pancreatitis Abdominal pain Qualifiers: Abdominal location: left upper quadrant Qualified Code(s): R10.12 - Left upper quadrant pain - Discharge Information *PRESCRIPTION DRUG MONITORING PROGRAM REVIEWED*: Not Applicable *COPY OF PRESCRIPTION DRUG MONITORING REPORT IN PATIENT ALE: Not Applicable Prescriptions: oxyCODONE HCl/Acetaminophen [Percocet 5-325 mg Tablet] 1 - 2 each PO Q4H PRN # 30 tablet PRN Reason: pain relief. Instructions: Abdominal Pain, Adult, [id number] Referrals: PCP,None [Primary Care Provider] - Forms: ED Department Discharge Additional Instructions: Evaluation in the emergency room today in regards to recurrence of severe left upper quadrant abdominal pain rating through to your back characteristic of your chronic relapsing pancreatitis pain. Associated nausea and vomiting secondary to the pain. You were treated with a further dose of Dilaudid 2 mg intramuscularly with Ativan 2 mg and Phenergan 25 mg in the ED T today. Also hydrocortisone 100 mg IM to cover for Eugene's disease in case your current cortisol medicine is not staying in the system. Prescription is also been written for [facility] use of Percocet 5/325 mg tablets 1 or 2 every 4-6 hours as necessary for pain relief until you can get your intrathecal pump placed for pain control next week on February 01 as planned. Sepsis Event Note - Evaluation Sepsis Screening Result: No Definite Risk - Focused Exam Vital Signs: Vital Signs Temp Pulse Resp BP Pulse Ox 01/26/20 15:11 36.9 C 79 13 130/90 99 Date Exam was Performed: 01/26/20 Time Exam was Performed: 19:15
[2020-01-26] MEDS ORDERED: HYDROmorphone 1 MG/ML Syringe IVPUSH ONE (16:40)
[2020-01-26] MEDS ORDERED: Hydrocortisone Sodium Succinate 100 MG/2 ML SDV IM ONE (16:44)
[2020-01-26] MEDS ORDERED: Promethazine 25 MG/ML SDV IM ONE (16:44)
[2020-01-26] MEDS ORDERED: LORazepam 2 MG/ML SDV IM ONE (16:44)
[2020-01-26] MEDS ORDERED: HYDROmorphone 1 MG/ML Syringe IM ONE (16:46)
== END 2020-01-26 17:30 | disposition home or self-care (01) ==
LOC: JD.ED 15:08
DX: K86.1 Other chronic pancreatitis (principal); I10 Essential (primary) hypertension; F41.9 Anxiety disorder, unspecified; F32.9 Major depressive disorder, single episode, unspecified; E03.9 Hypothyroidism, unspecified; E66.9 Obesity, unspecified; Z86.73 Personal history of transient ischemic attack (TIA), and cerebral infarction without residual deficits; Z79.899 Other long term (current) drug therapy; Z68.37 Body mass index [BMI] 37.0-37.9, adult
CPT/HCPCS: 96372; 96374; 99284; J1170; J1720; J2060; J2550

== ENCOUNTER 2020-01-30 10:39 | Emergency (ER) | payer BC, MEDICARE ==
[2020-01-30 11:13] VITALS: BP 151/96; PULSE 84
[2020-01-30] MEDS ORDERED: HYDROmorphone 1 MG/ML Syringe IM ONE (11:31)
[2020-01-30] MEDS ORDERED: Ondansetron 4 MG Tab.DIS PO ONE (11:31)
[2020-01-30] MEDS ORDERED: diphenhydrAMINE 50 MG/ML SDV IM ONE (11:31)
--- NOTE | 2020-01-30 11:40 | EDM.PDOC ---
ED HPI GENERAL MEDICAL PROBLEM - General Chief Complaint: Abdominal Pain Stated Complaint: PANCREATITIS Time Seen by Provider: 01/30/20 11:17 Source of Information: Reports: Patient, RN Notes Reviewed History Limitations: Reports: No Limitations - History of Present Illness INITIAL COMMENTS - FREE TEXT/NARRATIVE: Patient is a 44-year-old female who presents to the ED for evaluation of her left upper abdominal pain. The patient notes that she had some symptoms of her chronic pancreatitis flare-up at around 3 AM this morning. She notes that she was puking and having some episodes of diarrhea with this. She states that the pain is similar to other flares in nature to her past pains. She did take a 5 mg tablet of oxycodone and Zofran at home, and states this does not seem to help much. She is scheduled to have a back stimulator placed this week in [place] on . The patient denies any sort of fevers or chills, no other abdominal issues, dysuria, urinary frequency or urgency. She states that the same is exactly the same as it always has been. 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: zofran-oxycodone Left Upper Abdomen Pain Score (Numeric/FACES): 9 - Related Data Allergies Allergy/AdvReac Type Severity Reaction Status Date / Time amylase [From Creon] Allergy Rash Verified 01/26/20 15:18 buprenorphine [From Butrans] Allergy Itching Verified 01/26/20 15:18 lipase [From Creon] Allergy Rash Verified 01/26/20 15:18 metoclopramide HCl Allergy Itching Verified 01/26/20 15:18 [From Reglan] protease [From Creon] Allergy Rash Verified 01/26/20 15:18 ketorolac [From Toradol] AdvReac Bleeding Verified 01/26/20 15:18 NSAIDS (Non-Steroidal AdvReac Abdominal Verified 01/26/20 15:18 Anti-Inflamma Pain prochlorperazine AdvReac Vomiting Verified 01/26/20 15:18 [From Compazine] Home Meds: Home Meds Mirtazapine 30 mg PO BEDTIME 03/14/19 [History] Pantoprazole Sodium [Protonix] 40 mg PO BID 03/14/19 [History] Prazosin HCl [Prazosin] 5 mg PO BEDTIME 03/14/19 [History] Vortioxetine [Trintellix] 10 mg PO DAILY 03/14/19 [History] Ferrous Sulfate [Iron] 650 mg PO BID 05/15/19 [History] QUEtiapine Fumarate [Quetiapine Fumarate] 75 mg PO BEDTIME 05/15/19 [History] Cholecalciferol (Vitamin D3) [Vitamin D3] 1,000 intnl unit PO DAILY 06/28/19 [ History] Hydrocortisone [Cortef] 5 mg PO 1300 10/11/19 [History] Hydrocortisone [Cortef] 15 mg PO DAILY 10/11/19 [History] Levothyroxine 150 mcg PO ACBREAKFAST 10/11/19 [History] Ondansetron [Zofran] 4 mg BUCCAL Q6H PRN #20 tab 12/11/19 [Rx] oxyCODONE HCl/Acetaminophen [Percocet 5-325 mg Tablet] 1 - 2 each PO Q4H PRN # 30 tablet 01/26/20 [Rx] Past Medical History HEENT History: Reports: Glaucoma, Otitis Media Cardiovascular History: Reports: Hypertension Other Cardiovascular History: tachycardia Gastrointestinal History: Reports: Chronic Constipation, Chronic Diarrhea, Hemorrhoids, Pancreatitis, Other (See Below) Other Gastrointestinal History: LUQ pain, hemorrhoids Genitourinary History: Reports: UTI, Recurrent 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: c section x3, tubes tied Musculoskeletal History: Reports: Arthritis, Fracture, Other (See Below) Other Musculoskeletal History: left foot fracture, elbow pain, wrist pain, weakness, falls Neurological History: Reports: TIA, Other (See Below) Other Neuro History: pseudotumor, shunt, benign pineal brain tumor, memory loss , seizure disorder, vertigo, brain surgery x 16 Psychiatric History: Reports: Addiction, Anxiety, Depression Endocrine/Metabolic History: Reports: [place]'s Disease, Hypothyroidism, Obesity /BMI 30+, Vitamin D Deficiency Other Endocrine/Metabolic History: hyperthyroidism, hypothyroidism, hashimotos, secondary adrenal insufficiency Hematologic History: Reports: Anemia, Other (See Below) Other Hematologic History: anti TPO antibody Dermatologic History: Reports: Cellulitis - Infectious Disease History Infectious Disease History: Reports: C-Difficile, MRSA Other Infectious Disease History: in 2006, 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." - Past Surgical History Head Surgeries/Procedures: Reports: Shunt HEENT Surgical History: Reports: Oral Surgery Other HEENT Surgeries/Procedures: [place] teeth removal. dental extraction GI Surgical History: Reports: Appendectomy, Bariatric Procedure, Cholecystectomy , Colonoscopy, EGD, ERCP Other GI Surgeries/Procedures: EUS Female Surgical History: Reports: Section, Tubal Ligation Neurological Surgical History: Reports: Other (See Below) Other Neurological Surgeries/Procedures: brain tumor removal Social & Family History - Family History Family Medical History: Noncontributory Cardiac: Reports: Bypass, Hypertension, [place] Respiratory: Reports: Asthma Oncologic: Reports: Colon - Tobacco Use Smoking Status *Q: Never Smoker - Caffeine Use Caffeine Use: Reports: None Other Caffeine Use: 1 cup daily - Recreational Drug Use Recreational Drug Use: No - Living Situation & Occupation Living situation: Reports: , with Spouse Occupation: Unemployed ED ROS GENERAL - Review of Systems Review Of Systems: See Below Constitutional: Denies: Fever, Chills Respiratory: Denies: Shortness of Breath Cardiovascular: Denies: Chest Pain GI/Abdominal: Reports: Abdominal Pain (LUQ), Diarrhea (chronic), Nausea, Vomiting : Denies: Dysuria, Frequency, Urgency ED EXAM, GI/ABD - Physical Exam Exam: See Below Exam Limited By: No Limitations General Appearance: Alert, WD/WN, No Apparent Distress Eyes: Bilateral: Normal Appearance Throat/Mouth: Normal Inspection, Normal Lips, Normal Teeth, Normal Gums, Normal Oropharynx, Normal Voice, No Airway Compromise Head: Atraumatic, Normocephalic Respiratory/Chest: No Respiratory Distress, Lungs Clear, Normal Breath Sounds, No Accessory Muscle Use, Chest Non-Tender Cardiovascular: Normal Peripheral Pulses, Regular Rate, Rhythm, No Murmur GI/Abdominal Exam: Normal Bowel Sounds, Soft, No Distention, No Mass, Guarding ( LUQ), Tender (LUQ ). No: Rigid Neurological: Alert, Oriented, Normal Cognition, No Motor/Sensory Deficits Psychiatric: Normal Affect, Normal Mood Skin Exam: Warm, Dry, Intact, Normal Color, No Rash Course - Vital Signs Last Recorded V/S: Last Vital Signs Temp 96.9 F 01/30/20 11:10 Pulse 84 01/30/20 11:10 Resp 20 01/30/20 11:10 BP 151/96 H 01/30/20 11:10 Pulse Ox 100 01/30/20 11:10 - Orders/Labs/Meds Meds: Medications Discontinued Medications Generic Name Dose Route Start Last Admin Trade Name Dominic PRN Reason Stop Dose Admin Diphenhydramine HCl 25 mg 01/30/20 11:31 Benadryl IM 01/30/20 11:32 ONETIME ONE Hydromorphone HCl 2 mg 01/30/20 11:31 Dilaudid IM 01/30/20 11:32 ONETIME ONE Ondansetron HCl 4 mg 01/30/20 11:31 Zofran Odt PO 01/30/20 11:32 ONETIME ONE - Re-Assessments/Exams Free Text/Narrative Re-Assessment/Exam: 01/30/20 11:38 Patient presents to the ED for her ongoing pain and issues dealing with her chronic pancreatitis. The patient states that she has not looking to take anything home for pain control, she states that she just needs to have some pain relief at this time. I did order 2 mg Dilaudid, 25 mg IM Benadryl, and 4 mg Zofran for further management. She does not want any laboratory evaluation done today. Departure - Departure Time of Disposition: 11:40 Disposition: Home, Self-Care 01 Condition: Fair Clinical Impression: LUQ abdominal pain Vomiting Qualifiers: Vomiting type: unspecified Vomiting Intractability: non-intractable Nausea presence: with nausea Qualified Code(s): R11.2 - Nausea with vomiting, unspecified - Discharge Information *PRESCRIPTION DRUG MONITORING PROGRAM REVIEWED*: No *COPY OF PRESCRIPTION DRUG MONITORING REPORT IN PATIENT ALE: No Instructions: Nausea and Vomiting, Adult, [id number] Referrals: Farzaneh Smith MD [Primary Care Provider] - Additional Instructions: You were evaluated in the ER today regarding your left upper abdominal pain, with nausea and vomiting. This is most likely due to a flare of her chronic pancreatitis. No laboratory evaluation was done at today's visit. You were given some IM injections of medication to help relieve your symptoms. Recommend you follow-up with your surgeon, regarding your impending surgery on to make sure that is still scheduled, and please get the procedure if it does not get canceled. Please continue to take all your other prescription medications at home as previously prescribed. Please return to the ED at any time if symptoms change or worsen. Sepsis Event Note - Evaluation Sepsis Screening Result: No Definite Risk - Focused Exam Vital Signs: Vital Signs Temp Pulse Resp BP Pulse Ox 01/30/20 11:10 96.9 F 84 20 151/96 H 100 Date Exam was Performed: 01/30/20 Time Exam was Performed: 11:33
== END 2020-01-30 12:07 | disposition home or self-care (01) ==
LOC: JD.ED 10:39
DX: R10.12 Left upper quadrant pain (principal); R11.2 Nausea with vomiting, unspecified; I10 Essential (primary) hypertension; E03.9 Hypothyroidism, unspecified; Z79.899 Other long term (current) drug therapy; Z88.8 Allergy status to other drugs, medicaments and biological substances; Z90.49 Acquired absence of other specified parts of digestive tract; Z98.84 Bariatric surgery status; Z88.6 Allergy status to analgesic agent
CPT/HCPCS: 96372; 99283; A9270; J1170; J1200

== ENCOUNTER 2020-02-01 09:32 | Emergency (ER) | payer BC, MEDICARE ==
[2020-02-01 10:32] VITALS: BP 151/108; PULSE 95
[2020-02-01] MEDS ORDERED: diphenhydrAMINE 50 MG/ML SDV IM ONE (10:48)
[2020-02-01] MEDS ORDERED: Promethazine 25 MG/ML SDV IM ONE (10:48)
[2020-02-01] MEDS ORDERED: HYDROmorphone 1 MG/ML Syringe IM ONE (10:48)
[2020-02-01] MEDS ORDERED: Hydrocortisone Sodium Succinate 100 MG/2 ML SDV IM ONE (10:49)
[2020-02-01] MEDS ORDERED: LORazepam 2 MG/ML SDV IM ONE (10:49)
--- NOTE | 2020-02-01 10:52 | EDM.PDOC ---
ED HPI GENERAL MEDICAL PROBLEM - General Chief Complaint: Abdominal Pain Stated Complaint: ABDOMINAL PAIN Time Seen by Provider: 02/01/20 10:50 Source of Information: Reports: Patient History Limitations: Reports: No Limitations - History of Present Illness INITIAL COMMENTS - FREE TEXT/NARRATIVE: 44-year-old female whom is well-known to the emergency room attends the ED primarily for pain management. 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 The initial plan was to have her have a Whipple's procedure with removal of the pancreas to relieve pain but because she could not tolerate oral pancreatic digestive enzymes i.e. Creon the procedure was abandoned. She has been waiting a couple of months for neurosurgery to assess her after psychiatric evaluation to place a intrathecal pump to try and relieve her chronic pain. This is scheduled for tomorrow in [place]. She attends the ED on her way through [place] as she is having terrible left upper quadrant abdominal pain rating through to her back as per her usual symptom complex. This is associate with intermittent nausea and vomiting and inability keep down much fluids. She does not have any veins left and therefore we are left to giving her medications intramuscularly only. She does need a Port-A-Cath placed. Onset: Gradual Onset Date: 01/31/20 (Pain started again yesterday and became severe overnight with nausea and vomiting. She has chronic stearrhea and is still bleeding intermittently per rectum. They believe this is due to a form of ulcerative colitis created by the Creon allergy. I suspect he may well be due to hemorrhoids after she suffers chronic steatorrhea. She often has 6 loose bowel movements per day.) Duration: Chronic (Condition for greater than 5 years) Location: Reports: Abdomen (Your left upper quadrant abdominal pain rating through to her back underneath the scapula. Associated with nausea vomiting and chronic diarrhea or steatorrhea.) Quality: Reports: Ache Severity: Severe (This is a deep aching constant pain.) Improves with: Reports: None ( And a 10) Worsens with: Reports: Eating Context: Denies: Activity, Exercise, Lifting (Makes it worse), Sick Contact, Other Associated Symptoms: Reports: Loss of Appetite, Malaise, Nausea/Vomiting (And comes first then nausea and vomiting.), Shortness of Breath (Ejective shortness of breath is deep breathing makes the pain worse.). 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: Other (see below) (Currently out of pain medication.) Abdomen Pain Score (Numeric/FACES): 8 - Related Data Allergies Allergy/AdvReac Type Severity Reaction Status Date / Time amylase [From Creon] Allergy Rash Verified 01/26/20 15:18 buprenorphine [From Butrans] Allergy Itching Verified 01/26/20 15:18 lipase [From Creon] Allergy Rash Verified 01/26/20 15:18 metoclopramide HCl Allergy Itching Verified 01/26/20 15:18 [From Reglan] protease [From Creon] Allergy Rash Verified 01/26/20 15:18 ketorolac [From Toradol] AdvReac Bleeding Verified 01/26/20 15:18 NSAIDS (Non-Steroidal AdvReac Abdominal Verified 01/26/20 15:18 Anti-Inflamma Pain prochlorperazine AdvReac Vomiting Verified 01/26/20 15:18 [From Compazine] Home Meds: Home Meds Mirtazapine 30 mg PO BEDTIME 03/14/19 [History] Pantoprazole Sodium [Protonix] 40 mg PO BID 03/14/19 [History] Prazosin HCl [Prazosin] 5 mg PO BEDTIME 03/14/19 [History] Vortioxetine [Trintellix] 10 mg PO DAILY 03/14/19 [History] Ferrous Sulfate [Iron] 650 mg PO BID 05/15/19 [History] QUEtiapine Fumarate [Quetiapine Fumarate] 75 mg PO BEDTIME 05/15/19 [History] Cholecalciferol (Vitamin D3) [Vitamin D3] 1,000 intnl unit PO DAILY 06/28/19 [ History] Hydrocortisone [Cortef] 5 mg PO 1300 10/11/19 [History] Hydrocortisone [Cortef] 15 mg PO DAILY 10/11/19 [History] Levothyroxine 150 mcg PO ACBREAKFAST 10/11/19 [History] Ondansetron [Zofran] 4 mg BUCCAL Q6H PRN #20 tab 12/11/19 [Rx] oxyCODONE HCl/Acetaminophen [Percocet 5-325 mg Tablet] 1 - 2 each PO Q4H PRN # 30 tablet 01/26/20 [Rx] Past Medical History - Past Health History Medical/Surgical History: Denies Medical/Surgical History HEENT History: Reports: Glaucoma, Otitis Media Cardiovascular History: Reports: Hypertension Other Cardiovascular History: tachycardia Gastrointestinal History: Reports: Chronic Constipation, Chronic Diarrhea, Hemorrhoids, Pancreatitis, Other (See Below) Other Gastrointestinal History: LUQ pain, hemorrhoids Genitourinary History: Reports: UTI, Recurrent WEB MERCHANDISER History: Reports: Other WEB MERCHANDISER History: c section x3, tubes tied Musculoskeletal History: Reports: Arthritis, Fracture, Other (See Below) Other Musculoskeletal History: left foot fracture, elbow pain, wrist pain, weakness, falls Neurological History: Reports: TIA, Other (See Below) Other Neuro History: pseudotumor, shunt, benign pineal brain tumor, memory loss , seizure disorder, vertigo, brain surgery x 16 Psychiatric History: Reports: Addiction, Anxiety, Depression 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, Hypothyroidism, Obesity /BMI 30+, Vitamin D Deficiency Other Endocrine/Metabolic History: hyperthyroidism, hypothyroidism, hashimotos, secondary adrenal insufficiency Hematologic History: Reports: Anemia, Other (See Below) Other Hematologic History: anti TPO antibody Immunologic History: Reports: None Dermatologic History: Reports: Cellulitis - Infectious Disease History Infectious Disease History: Reports: C-Difficile, MRSA Other Infectious Disease History: in 2006, 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." - Past Surgical History Head Surgeries/Procedures: Reports: Shunt HEENT Surgical History: Reports: Oral Surgery Other HEENT Surgeries/Procedures: [place] teeth removal. dental extraction GI Surgical History: Reports: Appendectomy, Bariatric Procedure, Cholecystectomy , Colonoscopy, EGD, ERCP Other GI Surgeries/Procedures: EUS Female Surgical History: Reports: Section, Tubal Ligation Neurological Surgical History: Reports: Other (See Below) Other Neurological Surgeries/Procedures: brain tumor removal Social & Family History - Family History Family Medical History: Noncontributory Cardiac: Reports: Bypass, Hypertension, [place] Respiratory: Reports: Asthma Oncologic: Reports: Colon - Tobacco Use Smoking Status *Q: Never Smoker Second Hand Smoke Exposure: No - Caffeine Use Caffeine Use: Reports: None Other Caffeine Use: 1 cup daily - Living Situation & Occupation Living situation: Reports: , with Spouse Occupation: Unemployed ED ROS GENERAL - Review of Systems Review Of Systems: See Below Constitutional: Reports: Malaise, Weakness, Fatigue, Decreased Appetite, Weight Loss. Denies: Fever, Chills HEENT: Reports: No Symptoms Respiratory: Reports: Shortness of Breath. Denies: Wheezing, Pleuritic Chest Pain (Objective shortness of breath is deep breathing makes the abdominal pain worse.), Cough, Sputum Cardiovascular: Reports: Lightheadedness. Denies: Chest Pain, Blood Pressure Problem, Claudication, Dyspnea on Exertion, Edema (Times sometimes due to pain) , Orthopnea, Palpitations Endocrine: Reports: Fatigue GI/Abdominal: Reports: Abdominal Pain (Chronic severe left upper quadrant abdominal pain has known chronic pancreatitis) : Reports: Other (Dark-colored urine) Musculoskeletal: Reports: Back Pain Skin: Reports: No Symptoms Neurological: Reports: No Symptoms Psychiatric: Reports: Depression Hematologic/Lymphatic: Reports: No Symptoms Immunologic: Reports: No Symptoms ED EXAM, GI/ABD - Physical Exam Exam: See Below Exam Limited By: No Limitations General Appearance: Alert, WD/WN, No Apparent Distress, Anxious, Moderate Distress, Severe Distress, Other (Temperature is 35.9 which is likely inaccurate. Pulse is 95 and sinus respiratory is 14 with sats of 98% on room air BP is elevated at 151 108). No: Lethargic, Obtunded, Obese, Thin Eyes: Bilateral: Normal Appearance (No scleral icterus or blepharal pallor) Throat/Mouth: Normal Inspection, Normal Oropharynx, Other Head: Atraumatic, Normocephalic Neck: Normal Inspection, Supple (1 is mildly dry and coated), Non-Tender, Full Range of Motion. No: Lymphadenopathy (L), Lymphadenopathy (R) Respiratory/Chest: No Respiratory Distress, Lungs Clear, Normal Breath Sounds, No Accessory Muscle Use, Chest Non-Tender Cardiovascular: Normal Peripheral Pulses, Regular Rate, Rhythm, No Edema, No Gallop, No Murmur, No Rub GI/Abdominal Exam: No Organomegaly, No Distention, Guarding (Very tender to palpation left upper quadrant of the abdomen with guarding.), Tender, Abnormal Bowel Sounds (Sounds are decreased in all 4 quadrants.). No: Rigid, Rebound Back Exam: Normal Inspection, Full Range of Motion. No: CVA Tenderness (L), CVA Tenderness (R) Extremities: Normal Inspection, Normal Range of Motion, Non-Tender Neurological: Alert, Oriented, CN II-XII Intact, Normal Cognition, Normal Gait Psychiatric: Normal Affect, Normal Mood Skin Exam: Warm, Dry, Intact, Normal Color, No Rash Lymphatic: No Adenopathy Course - Vital Signs Last Recorded V/S: Last Vital Signs Temp 35.9 C L 02/01/20 10:24 Pulse 95 02/01/20 10:24 Resp 14 02/01/20 10:24 BP 151/108 H 02/01/20 10:24 Pulse Ox 98 02/01/20 10:24 - Orders/Labs/Meds Meds: Medications Discontinued Medications Generic Name Dose Route Start Last Admin Trade Name Jean-Pierreq PRN Reason Stop Dose Admin Diphenhydramine HCl 25 mg 02/01/20 10:48 02/01/20 11:12 Benadryl IM 02/01/20 10:49 25 mg ONETIME ONE Administration Hydrocortisone Sodium Succinate 100 mg 02/01/20 10:49 02/01/20 11:11 Solu-Cortef IM 02/01/20 10:50 100 mg ONETIME ONE Administration Hydromorphone HCl 2 mg 02/01/20 10:48 02/01/20 11:23 Dilaudid IM 02/01/20 10:49 2 mg ONETIME ONE Administration Lorazepam 1.5 mg 02/01/20 10:49 02/01/20 11:12 Ativan IM 02/01/20 10:50 1.5 mg ONETIME ONE Administration Promethazine HCl 37.5 mg 02/01/20 10:48 02/01/20 11:11 Phenergan IM 02/01/20 10:49 37.5 mg ONETIME ONE Administration - Radiology Interpretation Free Text/Narrative:: 44-year-old female who is well-known to the ED due to chronic relapsing pancreatitis with necrosis of the tail of her pancreas. She is not a surgical candidate because of intolerance to Creon pancreatic enzyme supplement as it gave her severe bloody diarrhea. Therefore surgical approach our Whipple's procedure that was planned was aborted 6 months ago. She still has chronic pain syndrome and is awaiting thecal pain management pump with morphine which is likely to be placed tomorrow in [place]. Currently she is experiencing a great deal of left upper quadrant pain and attends the ED for analgesia to make the trip to [place] more tolerable. She requires high doses of narcotics as she has been on narcotics for greater than 10 years. She was given Ativan 1.5 mg IM with Benadryl 25 mg IM and Phenergan 37.5 mg IM to stop nausea and vomiting. 2 mg of Dilaudid IM and hydrate cortisone 100 mg IM to replace her cortisol as she believes the tablets are going right through her. 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 Her is driving her to [place] at this time. She will be discharged once the nurses are comfortable after giving her such high doses of medications. Departure - Departure Time of Disposition: 11:30 Disposition: Home, Self-Care 01 Condition: Fair Clinical Impression: Chronic relapsing pancreatitis, Nausea and vomiting in adult patient, Rectal bleeding - Discharge Information *PRESCRIPTION DRUG MONITORING PROGRAM REVIEWED*: Not Applicable *COPY OF PRESCRIPTION DRUG MONITORING REPORT IN PATIENT ALE: Not Applicable Instructions: Chronic Pancreatitis, Nausea and Vomiting, Adult, [id number], Rectal Bleeding, [id number] Referrals: Farzaneh Smith MD [Primary Care Provider] - Forms: ED Department Discharge Additional Instructions: Evaluation in the emergency room today in regards to recurrence of severe left upper quadrant abdominal pain rating through to her back associate with nausea and vomiting characteristic of your relapsing pancreatitis. You were treated with intramuscular pain medication Dilaudid 2 mg with Ativan 1.5 mg Benadryl 25 mg with hydrocortisone 100 mg intramuscularly demeaned sure that she did not become all deficient especially prior to potential surgery tomorrow. You also received Phenergan 37.5 mg IV for nausea relief. Likely cause some degree of drowsiness and hopefully facilitate some sleep on the way to [place]. Sepsis Event Note - Evaluation Sepsis Screening Result: No Definite Risk - Focused Exam Vital Signs: Vital Signs Temp Pulse Resp BP Pulse Ox 02/01/20 10:24 35.9 C L 95 14 151/108 H 98 Date Exam was Performed: 02/01/20 Time Exam was Performed: 13:49
== END 2020-02-01 11:27 | disposition home or self-care (01) ==
LOC: JD.ED 09:32
DX: K86.1 Other chronic pancreatitis (principal); K62.5 Hemorrhage of anus and rectum; I10 Essential (primary) hypertension; F41.9 Anxiety disorder, unspecified; F32.9 Major depressive disorder, single episode, unspecified; E03.9 Hypothyroidism, unspecified; D64.9 Anemia, unspecified; E66.9 Obesity, unspecified; Z68.37 Body mass index [BMI] 37.0-37.9, adult; Z79.899 Other long term (current) drug therapy; Z86.73 Personal history of transient ischemic attack (TIA), and cerebral infarction without residual deficits; Z88.8 Allergy status to other drugs, medicaments and biological substances
CPT/HCPCS: 96372; 99283; J1170; J1200; J1720; J2060; J2550

== ENCOUNTER 2020-02-19 08:13 | Emergency (ER) | payer BC, MEDICARE ==
[2020-02-19 08:24] VITALS: BP 165/98; PULSE 91
[2020-02-19] MEDS ORDERED: HYDROmorphone 1 MG/ML Syringe IM ONE (08:55)
[2020-02-19] MEDS ORDERED: Promethazine 25 MG/ML SDV IM ONE (08:56)
--- NOTE | 2020-02-19 09:31 | EDM.PDOC ---
ED HPI GENERAL MEDICAL PROBLEM - General Chief Complaint: Abdominal Pain Stated Complaint: PANCREATITIS Time Seen by Provider: 02/19/20 08:48 Source of Information: Reports: Patient, RN Notes Reviewed - History of Present Illness INITIAL COMMENTS - FREE TEXT/NARRATIVE: 44 yr old female comes in with L upper abd pain that started early this morning , has had some vomiting. Many prior ED visits for the same sx. Nothing different today. No fever. No chest pain or difficulty breathing. Abdominal Pain Score (Numeric/FACES): 7 - Related Data Allergies Allergy/AdvReac Type Severity Reaction Status Date / Time amylase [From Creon] Allergy Rash Verified 01/26/20 15:18 buprenorphine [From Butrans] Allergy Itching Verified 01/26/20 15:18 lipase [From Creon] Allergy Rash Verified 01/26/20 15:18 metoclopramide HCl Allergy Itching Verified 01/26/20 15:18 [From Reglan] protease [From Creon] Allergy Rash Verified 01/26/20 15:18 ketorolac [From Toradol] AdvReac Bleeding Verified 01/26/20 15:18 NSAIDS (Non-Steroidal AdvReac Abdominal Verified 01/26/20 15:18 Anti-Inflamma Pain prochlorperazine AdvReac Vomiting Verified 01/26/20 15:18 [From Compazine] Home Meds: Home Meds Mirtazapine 30 mg PO BEDTIME 03/14/19 [History] Pantoprazole Sodium [Protonix] 40 mg PO BID 03/14/19 [History] Prazosin HCl [Prazosin] 5 mg PO BEDTIME 03/14/19 [History] Vortioxetine [Trintellix] 10 mg PO DAILY 03/14/19 [History] Ferrous Sulfate [Iron] 650 mg PO BID 05/15/19 [History] QUEtiapine Fumarate [Quetiapine Fumarate] 75 mg PO BEDTIME 05/15/19 [History] Cholecalciferol (Vitamin D3) [Vitamin D3] 1,000 intnl unit PO DAILY 06/28/19 [ History] Hydrocortisone [Cortef] 5 mg PO 1300 10/11/19 [History] Hydrocortisone [Cortef] 15 mg PO DAILY 10/11/19 [History] Levothyroxine 150 mcg PO ACBREAKFAST 10/11/19 [History] Ondansetron [Zofran] 4 mg BUCCAL Q6H PRN #20 tab 12/11/19 [Rx] oxyCODONE HCl/Acetaminophen [Percocet 5-325 mg Tablet] 1 - 2 each PO Q4H PRN # 30 tablet 01/26/20 [Rx] Past Medical History - Past Health History Medical/Surgical History: Denies Medical/Surgical History HEENT History: Reports: Glaucoma, Otitis Media Cardiovascular History: Reports: Hypertension Other Cardiovascular History: tachycardia Gastrointestinal History: Reports: Chronic Constipation, Chronic Diarrhea, Hemorrhoids, Pancreatitis, Other (See Below) Other Gastrointestinal History: LUQ pain, hemorrhoids Genitourinary History: Reports: UTI, Recurrent DIRECTOR BIOINFORMATICS History: Reports: Other DIRECTOR BIOINFORMATICS History: c section x3, tubes tied Musculoskeletal History: Reports: Arthritis, Fracture, Other (See Below) Other Musculoskeletal History: left foot fracture, elbow pain, wrist pain, weakness, falls Neurological History: Reports: TIA, Other (See Below) Other Neuro History: pseudotumor, shunt, benign pineal brain tumor, memory loss , seizure disorder, vertigo, brain surgery x 16 Psychiatric History: Reports: Addiction, Anxiety, Depression 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, Hypothyroidism, Obesity /BMI 30+, Vitamin D Deficiency Other Endocrine/Metabolic History: hyperthyroidism, hypothyroidism, hashimotos, secondary adrenal insufficiency Hematologic History: Reports: Anemia, Other (See Below) Other Hematologic History: anti TPO antibody Immunologic History: Reports: None Dermatologic History: Reports: Cellulitis - Infectious Disease History Infectious Disease History: Reports: C-Difficile, MRSA Other Infectious Disease History: in 2006, 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." - Past Surgical History Head Surgeries/Procedures: Reports: Shunt HEENT Surgical History: Reports: Oral Surgery Other HEENT Surgeries/Procedures: [place] teeth removal. dental extraction GI Surgical History: Reports: Appendectomy, Bariatric Procedure, Cholecystectomy , Colonoscopy, EGD, ERCP Other GI Surgeries/Procedures: EUS Female Surgical History: Reports: Section, Tubal Ligation Neurological Surgical History: Reports: Other (See Below) Other Neurological Surgeries/Procedures: brain tumor removal Social & Family History - Family History Family Medical History: Noncontributory Cardiac: Reports: Bypass, Hypertension, [place] Respiratory: Reports: Asthma Oncologic: Reports: Colon - Tobacco Use Smoking Status *Q: Never Smoker - Caffeine Use Caffeine Use: Reports: Coffee Other Caffeine Use: 1 cup daily - Recreational Drug Use Recreational Drug Use: No - Living Situation & Occupation Living situation: Reports: , with Spouse Occupation: Unemployed ED ROS GENERAL - Review of Systems Review Of Systems: See Below Constitutional: Denies: Fever, Chills, Diaphoresis HEENT: Reports: No Symptoms Respiratory: Denies: Shortness of Breath Cardiovascular: Denies: Chest Pain GI/Abdominal: Reports: Abdominal Pain, Nausea, Vomiting Musculoskeletal: Reports: Back Pain Skin: Reports: No Symptoms Neurological: Reports: No Symptoms ED EXAM, GI/ABD - Physical Exam Exam: See Below General Appearance: Alert, Mild Distress Eyes: Bilateral: Normal Appearance Throat/Mouth: Normal Inspection Head: Atraumatic Neck: Supple Respiratory/Chest: No Respiratory Distress, Lungs Clear, Normal Breath Sounds Cardiovascular: Regular Rate, Rhythm GI/Abdominal Exam: Tender (Upper mid abd and L upper abd) Extremities: Normal Inspection, Normal Range of Motion Neurological: Alert, Oriented Skin Exam: Dry, Normal Color Course - Vital Signs Last Recorded V/S: Last Vital Signs Temp 98.3 F 02/19/20 08:23 Pulse 91 02/19/20 08:23 Resp 18 02/19/20 08:23 BP 165/98 H 02/19/20 08:23 Pulse Ox 97 02/19/20 08:23 - Orders/Labs/Meds Meds: Medications Discontinued Medications Generic Name Dose Route Start Last Admin Trade Name Dominic PRN Reason Stop Dose Admin Hydromorphone HCl 2 mg 02/19/20 08:55 02/19/20 09:07 Dilaudid IM 02/19/20 08:56 2 mg ONETIME ONE Administration Promethazine HCl 37.5 mg 02/19/20 08:56 02/19/20 09:02 Phenergan IM 02/19/20 08:57 37.5 mg ONETIME ONE Administration Departure - Departure Time of Disposition: 09:30 Disposition: Home, Self-Care 01 Condition: Fair Clinical Impression: Vomiting, LUQ abdominal pain - Discharge Information Instructions: Abdominal Pain, Adult, [id number], Vomiting, Adult Referrals: Farzaneh Smith MD [Primary Care Provider] - Forms: ED Department Discharge Additional Instructions: clear liquids until later today, than careful bland diet as tolerated. Continue current meds. Follow up clinic as needed. Sepsis Event Note - Evaluation Sepsis Screening Result: No Definite Risk - Focused Exam Vital Signs: Vital Signs Temp Pulse Resp BP Pulse Ox 02/19/20 08:23 98.3 F 91 18 165/98 H 97 Date Exam was Performed: 02/19/20 Time Exam was Performed: 13:56
== END 2020-02-19 09:38 | disposition home or self-care (01) ==
LOC: JD.ED 08:13
DX: R10.12 Left upper quadrant pain (principal); R11.10 Vomiting, unspecified; I10 Essential (primary) hypertension; Z79.899 Other long term (current) drug therapy; E03.9 Hypothyroidism, unspecified; Z86.73 Personal history of transient ischemic attack (TIA), and cerebral infarction without residual deficits; F41.9 Anxiety disorder, unspecified; F32.9 Major depressive disorder, single episode, unspecified; E66.9 Obesity, unspecified; Z68.38 Body mass index [BMI] 38.0-38.9, adult; Z88.8 Allergy status to other drugs, medicaments and biological substances
CPT/HCPCS: 96372; 99283; J1170; J2550

== ENCOUNTER 2020-02-24 09:03 | Emergency (ER) | payer BC, MEDICARE ==
[2020-02-24 09:24] VITALS: BP 155/90; PULSE 90
[2020-02-24] MEDS ORDERED: HYDROmorphone 1 MG/ML Syringe IM ONE (09:25)
[2020-02-24] MEDS ORDERED: Promethazine 25 MG/ML SDV IM ONE (09:25)
--- NOTE | 2020-02-24 09:31 | EDM.PDOC ---
ED HPI GENERAL MEDICAL PROBLEM - General Chief Complaint: Abdominal Pain Stated Complaint: ABDOMINAL PAIN Time Seen by Provider: 02/24/20 09:12 Source of Information: Reports: Patient History Limitations: Reports: No Limitations - History of Present Illness INITIAL COMMENTS - FREE TEXT/NARRATIVE: The patient presents with left upper abdominal pain. This started last night. She has chronic pancreatitis. She had a nerve stimulator placed last month temporarily and then removed 4 days later. This was to test how she would do and it worked great. She could not go back and get the permanent one placed due to all elective procedures canceled due to the COVID 19 pandemic. She has nausea with it. Onset: Gradual Duration: Day(s): Location: Reports: Abdomen Quality: Reports: Sharp Severity: Severe Improves with: Reports: None Worsens with: Reports: None Associated Symptoms: Reports: Nausea/Vomiting. Denies: Cough, Fever/Chills Abdominal Pain Score (Numeric/FACES): 8 - Related Data Allergies Allergy/AdvReac Type Severity Reaction Status Date / Time amylase [From Creon] Allergy Rash Verified 02/24/20 09:24 buprenorphine [From Butrans] Allergy Itching Verified 02/24/20 09:24 lipase [From Creon] Allergy Rash Verified 02/24/20 09:24 metoclopramide HCl Allergy Itching Verified 02/24/20 09:24 [From Reglan] protease [From Creon] Allergy Rash Verified 02/24/20 09:24 ketorolac [From Toradol] AdvReac Bleeding Verified 02/24/20 09:24 NSAIDS (Non-Steroidal AdvReac Abdominal Verified 02/24/20 09:24 Anti-Inflamma Pain prochlorperazine AdvReac Vomiting Verified 02/24/20 09:24 [From Compazine] Home Meds: Home Meds Mirtazapine 30 mg PO BEDTIME 03/14/19 [History] Pantoprazole Sodium [Protonix] 40 mg PO BID 03/14/19 [History] Prazosin HCl [Prazosin] 5 mg PO BEDTIME 03/14/19 [History] Vortioxetine [Trintellix] 10 mg PO DAILY 03/14/19 [History] Ferrous Sulfate [Iron] 650 mg PO BID 05/15/19 [History] QUEtiapine Fumarate [Quetiapine Fumarate] 75 mg PO BEDTIME 05/15/19 [History] Cholecalciferol (Vitamin D3) [Vitamin D3] 1,000 intnl unit PO DAILY 06/28/19 [ History] Hydrocortisone [Cortef] 5 mg PO 1300 10/11/19 [History] Hydrocortisone [Cortef] 15 mg PO DAILY 10/11/19 [History] Levothyroxine 150 mcg PO ACBREAKFAST 10/11/19 [History] Ondansetron [Zofran] 4 mg BUCCAL Q6H PRN #20 tab 12/11/19 [Rx] Past Medical History - Past Health History Medical/Surgical History: Denies Medical/Surgical History HEENT History: Reports: Glaucoma, Otitis Media Cardiovascular History: Reports: Hypertension Other Cardiovascular History: tachycardia Gastrointestinal History: Reports: Chronic Constipation, Chronic Diarrhea, Hemorrhoids, Pancreatitis, Other (See Below) Other Gastrointestinal History: LUQ pain, hemorrhoids Genitourinary History: Reports: UTI, Recurrent ONION TOPPER History: Reports: Other ONION TOPPER History: c section x3, tubes tied Musculoskeletal History: Reports: Arthritis, Fracture, Other (See Below) Other Musculoskeletal History: left foot fracture, elbow pain, wrist pain, weakness, falls Neurological History: Reports: TIA, Other (See Below) Other Neuro History: pseudotumor, shunt, benign pineal brain tumor, memory loss , seizure disorder, vertigo, brain surgery x 16 Psychiatric History: Reports: Addiction, Anxiety, Depression Endocrine/Metabolic History: Reports: [place]'s Disease, Hypothyroidism, Obesity /BMI 30+, Vitamin D Deficiency Other Endocrine/Metabolic History: hyperthyroidism, hypothyroidism, hashimotos, secondary adrenal insufficiency Hematologic History: Reports: Anemia, Other (See Below) Other Hematologic History: anti TPO antibody Immunologic History: Reports: None Dermatologic History: Reports: Cellulitis - Infectious Disease History Infectious Disease History: Reports: C-Difficile, MRSA Other Infectious Disease History: in 2006, 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 dental extraction GI Surgical History: Reports: Appendectomy, Bariatric Procedure, Cholecystectomy , Colonoscopy, EGD, ERCP Other GI Surgeries/Procedures: EUS Female Surgical History: Reports: Section, Tubal Ligation Neurological Surgical History: Reports: Other (See Below) Other Neurological Surgeries/Procedures: brain tumor removal Social & Family History - Family History Family Medical History: Noncontributory Cardiac: Reports: Bypass, Hypertension, [place] Respiratory: Reports: Asthma Oncologic: Reports: Colon - Caffeine Use Caffeine Use: Reports: Coffee Other Caffeine Use: 1 cup daily - Living Situation & Occupation Living situation: Reports: , with Spouse Occupation: Unemployed ED ROS GENERAL - Review of Systems Review Of Systems: See Below Constitutional: Reports: No Symptoms HEENT: Reports: No Symptoms Respiratory: Reports: No Symptoms Cardiovascular: Reports: No Symptoms Endocrine: Reports: No Symptoms GI/Abdominal: Reports: Abdominal Pain, Nausea : Reports: No Symptoms Musculoskeletal: Reports: No Symptoms Skin: Reports: No Symptoms ED EXAM, GI/ABD - Physical Exam Exam: See Below Exam Limited By: No Limitations General Appearance: Alert, No Apparent Distress Ears: Normal External Exam Nose: Normal Inspection Head: Atraumatic, Normocephalic Neck: Normal Inspection Respiratory/Chest: No Respiratory Distress, Lungs Clear, Normal Breath Sounds Cardiovascular: Regular Rate, Rhythm, No Edema, No Murmur GI/Abdominal Exam: Soft, No Organomegaly, No Mass, Tender (Moderate to the left upper abdomen) Course - Vital Signs Last Recorded V/S: Last Vital Signs Temp 97.6 F 02/24/20 09:21 Pulse 90 02/24/20 09:21 Resp 16 02/24/20 09:21 BP 155/90 H 02/24/20 09:21 Pulse Ox 98 02/24/20 09:21 - Orders/Labs/Meds Orders: Active Orders 24 hr Category Date Time Status HYDROmorphone [Dilaudid] Med 02/24/20 09:25 Once 2 mg IM ONETIME ONE Promethazine [Phenergan] Med 02/24/20 09:25 Once 25 mg IM ONETIME ONE - Re-Assessments/Exams Free Text/Narrative Re-Assessment/Exam: 02/24/20 09:30 I ordered dilaudid 2mg IM and phenergan 25mg IM. Departure - Departure Time of Disposition: 09:30 Disposition: Home, Self-Care 01 Condition: Good Clinical Impression: Chronic relapsing pancreatitis - Discharge Information *PRESCRIPTION DRUG MONITORING PROGRAM REVIEWED*: Not Applicable *COPY OF PRESCRIPTION DRUG MONITORING REPORT IN PATIENT ALE: Not Applicable Referrals: Farzaneh Smith MD [Primary Care Provider] - 1 Week Additional Instructions: Go home and rest and take your medication as prescribed. Please return if you are worse. Sepsis Event Note - Evaluation Sepsis Screening Result: No Definite Risk - Focused Exam Vital Signs: Vital Signs Temp Pulse Resp BP Pulse Ox 02/24/20 09:21 97.6 F 90 16 155/90 H 98 Date Exam was Performed: 02/24/20 Time Exam was Performed: 09:26 - My Orders Last 24 Hours: My Active Orders 02/24/20 09:25 HYDROmorphone [Dilaudid] 2 mg IM ONETIME ONE Promethazine [Phenergan] 25 mg IM ONETIME ONE - Assessment/Plan Last 24 Hours: My Active Orders 02/24/20 09:25 HYDROmorphone [Dilaudid] 2 mg IM ONETIME ONE Promethazine [Phenergan] 25 mg IM ONETIME ONE
== END 2020-02-24 09:55 | disposition home or self-care (01) ==
LOC: JD.ED 09:03
DX: K86.1 Other chronic pancreatitis (principal); I10 Essential (primary) hypertension; M19.90 Unspecified osteoarthritis, unspecified site; F41.9 Anxiety disorder, unspecified; F32.9 Major depressive disorder, single episode, unspecified; E03.9 Hypothyroidism, unspecified; E66.9 Obesity, unspecified; Z86.73 Personal history of transient ischemic attack (TIA), and cerebral infarction without residual deficits; Z90.49 Acquired absence of other specified parts of digestive tract; Z98.84 Bariatric surgery status; Z88.8 Allergy status to other drugs, medicaments and biological substances; Z79.899 Other long term (current) drug therapy
CPT/HCPCS: 96372; 99283; J1170; J2550

== ENCOUNTER 2020-02-26 10:31 | Emergency (ER) | payer BC, MEDICARE ==
[2020-02-26 10:45] VITALS: BP 146/102; PULSE 84
--- NOTE | 2020-02-26 10:59 | EDM.PDOC ---
ED HPI GENERAL MEDICAL PROBLEM - General Chief Complaint: Abdominal Pain Stated Complaint: ABDOMINAL PAIN Time Seen by Provider: 02/26/20 10:44 Source of Information: Reports: Patient - History of Present Illness Onset: Gradual Duration: Day(s): Location: Reports: Abdomen Quality: Reports: Ache, Same as Previous Episode, Sharp Severity: Severe Improves with: Reports: None Worsens with: Reports: None Associated Symptoms: Reports: Loss of Appetite, Nausea/Vomiting. Denies: Confusion, Chest Pain, Cough, Diaphoresis, Fever/Chills, Headaches, Rash, Shortness of Breath, Syncope, Weakness Treatments REVIEW ASSISTANT: Reports: Other Medication(s) (Patient with a history of chronic pancreatitis presents with abdominal pain. She is scheduled to get a pain stimulator from [place] however with the coronavirus she is unable to get this done right away. She has been trying to use her gabapentin for pain but ran out of her Percocet. She sees her primary care tomorrow. She has been using Zofran for nausea, drinking fluids although her urine is a little darker than usual. Denies any headaches, no sore throat, no fevers chills or sweats, occasional coughing from smoking, no coronavirus contacts or ill contacts lives home kids who have been at home. No traveling. Some mild diarrhea but no blood in the stool, no burning or pain with urination just darker looking. Had a tubal ligation denies . Pain is sharp constant radiating from the front to the back. Not associated with breathing movement, does seem to be activated somewhat with food. She is tried Creon without relief causing stomach irritation.) Abdomen Pain Score (Numeric/FACES): 8 - Related Data Allergies Allergy/AdvReac Type Severity Reaction Status Date / Time amylase [From Creon] Allergy Rash Verified 02/24/20 09:24 buprenorphine [From Butrans] Allergy Itching Verified 02/24/20 09:24 lipase [From Creon] Allergy Rash Verified 02/24/20 09:24 metoclopramide HCl Allergy Itching Verified 02/24/20 09:24 [From Reglan] protease [From Creon] Allergy Rash Verified 02/24/20 09:24 ketorolac [From Toradol] AdvReac Bleeding Verified 02/24/20 09:24 NSAIDS (Non-Steroidal AdvReac Abdominal Verified 04/10/20 09:24 Anti-Inflamma Pain prochlorperazine AdvReac Vomiting Verified 02/24/20 09:24 [From Compazine] Home Meds: Home Meds Mirtazapine 30 mg PO BEDTIME 03/14/19 [History] Pantoprazole Sodium [Protonix] 40 mg PO BID 03/14/19 [History] Prazosin HCl [Prazosin] 5 mg PO BEDTIME 03/14/19 [History] Vortioxetine [Trintellix] 10 mg PO DAILY 03/14/19 [History] Ferrous Sulfate [Iron] 650 mg PO BID 05/15/19 [History] QUEtiapine Fumarate [Quetiapine Fumarate] 75 mg PO BEDTIME 05/15/19 [History] Cholecalciferol (Vitamin D3) [Vitamin D3] 1,000 intnl unit PO DAILY 06/28/19 [ History] Hydrocortisone [Cortef] 5 mg PO 1300 10/11/19 [History] Hydrocortisone [Cortef] 15 mg PO DAILY 10/11/19 [History] Levothyroxine 150 mcg PO ACBREAKFAST 10/11/19 [History] Ondansetron [Zofran] 4 mg BUCCAL Q6H PRN #20 tab 12/11/19 [Rx] Acetaminophen/oxyCODONE [Percocet 325-5 MG] 1 each PO Q6HR PRN #4 tab 02/26/20 [ Rx] Past Medical History - Past Health History Medical/Surgical History: Denies Medical/Surgical History HEENT History: Reports: Glaucoma, Otitis Media Cardiovascular History: Reports: Hypertension Other Cardiovascular History: tachycardia Gastrointestinal History: Reports: Chronic Constipation, Chronic Diarrhea, Hemorrhoids, Pancreatitis, Other (See Below) Other Gastrointestinal History: LUQ pain, hemorrhoids Genitourinary History: Reports: UTI, Recurrent 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 History: Reports: Other ADDICTION TREATMENT COUNSELOR History: c section x3, tubes tied Musculoskeletal History: Reports: Arthritis, Fracture, Other (See Below) Other Musculoskeletal History: left foot fracture, elbow pain, wrist pain, weakness, falls Neurological History: Reports: TIA, Other (See Below) Other Neuro History: pseudotumor, shunt, benign pineal brain tumor, memory loss , seizure disorder, vertigo, brain surgery x 16 Psychiatric History: Reports: Addiction, Anxiety, Depression Endocrine/Metabolic History: Reports: [place]'s Disease, Hypothyroidism, Obesity /BMI 30+, Vitamin D Deficiency Other Endocrine/Metabolic History: hyperthyroidism, hypothyroidism, hashimotos, secondary adrenal insufficiency Hematologic History: Reports: Anemia, Other (See Below) Other Hematologic History: anti TPO antibody Immunologic History: Reports: None Dermatologic History: Reports: Cellulitis - Infectious Disease History Infectious Disease History: Reports: C-Difficile, MRSA Other Infectious Disease History: in 2006, 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 dental extraction GI Surgical History: Reports: Appendectomy, Bariatric Procedure, Cholecystectomy , Colonoscopy, EGD, ERCP Other GI Surgeries/Procedures: EUS Female Surgical History: Reports: Section, Tubal Ligation Neurological Surgical History: Reports: Other (See Below) Other Neurological Surgeries/Procedures: brain tumor removal Social & Family History - Family History Family Medical History: Noncontributory Cardiac: Reports: Bypass, Hypertension, [place] Respiratory: Reports: Asthma Oncologic: Reports: Colon - Tobacco Use Smoking Status *Q: Never Smoker Second Hand Smoke Exposure: No - Caffeine Use Caffeine Use: Reports: Coffee Other Caffeine Use: 1 cup daily - Living Situation & Occupation Living situation: Reports: , with Spouse Occupation: Unemployed ED ROS GENERAL - Review of Systems Review Of Systems: See Below Constitutional: Reports: Decreased Appetite. Denies: Fever, Chills, Fatigue, Night Sweats, Weight Loss Respiratory: Reports: Cough. Denies: Shortness of Breath, Pleuritic Chest Pain , Sputum Cardiovascular: Denies: Chest Pain, Lightheadedness, Palpitations GI/Abdominal: Reports: Abdominal Pain, Diarrhea, Decreased Appetite, Nausea, Vomiting. Denies: Bloody Stool, Constipation, Difficulty Swallowing, Distension , Hematemesis, Hematochezia : Denies: Dysuria, Flank Pain, Frequency, Hematuria, Urinary Retention Musculoskeletal: Reports: Back Pain Skin: Reports: No Symptoms Neurological: Denies: Dizziness, Headache, Paresthesia Psychiatric: Reports: No Symptoms ED EXAM, GI/ABD - Physical Exam Exam: See Below Exam Limited By: No Limitations General Appearance: Alert, WD/WN, Mild Distress Eyes: Bilateral: EOMI Throat/Mouth: Normal Inspection Head: Atraumatic Neck: Normal Inspection Respiratory/Chest: No Respiratory Distress, Lungs Clear Cardiovascular: Normal Peripheral Pulses, Regular Rate, Rhythm GI/Abdominal Exam: Normal Bowel Sounds, Soft, Tender, Other (Pain in the epigastric region no rebound today, no hepatosplenomegaly. No flank pain noted. Negative for McBurney's point tenderness). No: Guarding, Abnormal Bowel Sounds, Hepatomegaly, Splenomegaly Back Exam: Normal Inspection Extremities: No Pedal Edema Neurological: Alert, Oriented Psychiatric: Normal Affect Skin Exam: Warm, Dry. No: Diaphoretic Course - Vital Signs Last Recorded V/S: Last Vital Signs Temp 97.2 F 02/26/20 10:42 Pulse 84 02/26/20 10:42 Resp 16 02/26/20 10:42 BP 146/102 H 02/26/20 10:42 Pulse Ox 97 02/26/20 10:42 - Orders/Labs/Meds Orders: Active Orders 24 hr Category Date Time Status Peripheral IV Care [RC] . DIRECTED Care 02/26/20 11:00 Active HYDROmorphone [Dilaudid] Med 02/26/20 12:31 Once 1 mg IVPUSH ONETIME ONE HYDROmorphone [Dilaudid] Med 02/26/20 11:01 Active 1 mg IVPUSH Q1H PRN Sodium Chloride 0.9% [Saline Flush] Med 02/26/20 11:00 Active 10 ml FLUSH ASDIRECTED PRN Peripheral IV Insertion Adult [OM.PC] Stat Oth 02/26/20 11:00 Ordered Medication Orders Hydromorphone HCl (Dilaudid) 1 mg IVPUSH Q1H PRN PRN Reason: Abdominal Pain Last Admin: 02/26/20 11:23 Dose: 1 mg Hydromorphone HCl (Dilaudid) 1 mg IVPUSH ONETIME ONE Stop: 02/26/20 12:32 Sodium Chloride (Saline Flush) 10 ml FLUSH ASDIRECTED PRN PRN Reason: Keep Vein Open Last Admin: 02/26/20 11:32 Dose: 10 ml Labs: Laboratory Tests 02/26/20 02/26/20 Range/Units 11:21 11:21 WBC 11.18 H (3.98-10.04) K/mm3 RBC 4.32 (3.98-5.22) M/mm3 Hgb 13.9 (11.2-15.7) gm/dl Hct 44.0 (34.1-44.9) % MCV 101.9 H D (79.4-94.8) fl MCH 32.2 (25.6-32.2) pg MCHC 31.6 L (32.2-35.5) g/dl RDW Std Deviation 49.5 H (36.4-46.3) fL Plt Count 267 (182-369) K/mm3 MPV 10.4 (9.4-12.3) fl Neut % (Auto) 74.4 H (34.0-71.1) % Lymph % (Auto) 17.0 L (19.3-51.7) % [place] % (Auto) 7.5 (4.7-12.5) % Eos % (Auto) 0.5 L (0.7-5.8) Baso % (Auto) 0.3 (0.1-1.2) % Neut # (Auto) 8.32 H (1.56-6.13) K/mm3 Lymph # (Auto) 1.90 (1.18-3.74) K/mm3 [place] # (Auto) 0.84 H (0.24-0.36) K/mm3 Eos # (Auto) 0.06 (0.04-0.36) K/mm3 Baso # (Auto) 0.03 (0.01-0.08) K/mm3 Sodium 141 (136-145) mEq/L Potassium 4.5 (3.5-5.1) mEq/L Chloride 106 (98-107) mEq/L Carbon Dioxide 25 (21-32) mEq/L Anion Gap 14.5 (5-15) BUN 10 (7-18) mg/dL Creatinine 1.0 (0.55-1.02) mg/dL Est Cr Clr Drug Dosing 71.67 mL/min Estimated GFR (MDRD) 60 (>60) mL/min BUN/Creatinine Ratio 10.0 L (14-18) Glucose 98 (74-106) mg/dL Calcium 8.8 (8.5-10.1) mg/dL Total Bilirubin 0.2 (0.2-1.0) mg/dL AST 13 L (15-37) U/L ALT 20 (14-59) U/L Alkaline Phosphatase 62 (46-116) U/L Total Protein 8.2 (6.4-8.2) g/dl Albumin 4.0 (3.4-5.0) g/dl Globulin 4.2 gm/dL Albumin/Globulin Ratio 1.0 (1-2) Lipase 432 H (73-393) U/L Meds: Medications Generic Name Dose Route Start Last Admin Trade Name Freq PRN Reason Stop Dose Admin Hydromorphone HCl 1 mg 02/26/20 11:01 02/26/20 11:23 Dilaudid IVPUSH 1 mg Q1H PRN Administration Abdominal Pain Hydromorphone HCl 1 mg 02/26/20 12:31 Dilaudid IVPUSH 02/26/20 12:32 ONETIME ONE Sodium Chloride 10 ml 02/26/20 11:00 02/26/20 11:32 Saline Flush FLUSH 10 ml ASDIRECTED PRN Administration Keep Vein Open Discontinued Medications Generic Name Dose Route Start Last Admin Trade Name Freq PRN Reason Stop Dose Admin Lactated Ringer's 1,000 mls @ 1,000 mls/hr 02/26/20 11:00 02/26/20 11:24 Ringers, Lactated IV 02/26/20 11:59 1,000 mls/hr .BOLUS ONE Administration Ondansetron HCl 4 mg 02/26/20 11:00 02/26/20 11:23 Zofran IVPUSH 02/26/20 11:01 4 mg ONETIME ONE Administration - Re-Assessments/Exams Free Text/Narrative Re-Assessment/Exam: 02/26/20 12:31 Liver function tests are normal, lipase however is elevated 432, blood sugar stable, 1800, hemoglobin and hematocrit are stable. Platelet count is stable. Suspect acute on chronic pancreatitis. Patient given IV fluids, pain medications, Zofran for nausea. We will continue to hydrate her and see how she is doing. We will write her for just a few Percocet to get her till tomorrow. Reviewed with her that we cannot prescribe pain medications through the emergency department however will make sure that she is on a liquid diet. Do not feel that she is indicated to have an acute hospitalization and she would rather not have to stay. Departure - Departure Time of Disposition: 12:39 Disposition: Home, Self-Care 01 Condition: Fair Clinical Impression: Pancreatitis, Nausea and vomiting in adult patient - Discharge Information *PRESCRIPTION DRUG MONITORING PROGRAM REVIEWED*: Yes *COPY OF PRESCRIPTION DRUG MONITORING REPORT IN PATIENT ALE: No Instructions: Nausea and Vomiting, Adult, Abdominal Pain, Adult, [id number] Referrals: Farzaneh Smith MD [Primary Care Provider] - Forms: ED Department Discharge Additional Instructions: Clear liquid diet avoid any greasy fatty or fried foods. Advance as tolerated. Percocet for pain, no refills to the emergency department just a short course to get you through till tomorrow for refills and follow-up with your primary care physician. Return if unable to keep down fluids, fevers, increasing abdominal pain, able to pass gas or stool per rectum, worsening. Sepsis Event Note - Evaluation Sepsis Screening Result: No Definite Risk - Focused Exam Vital Signs: Vital Signs Temp Pulse Resp BP Pulse Ox 02/26/20 10:42 97.2 F 84 16 146/102 H 97 Date Exam was Performed: 02/26/20 Time Exam was Performed: 12:27 - My Orders Last 24 Hours: My Active Orders 02/26/20 11:00 Peripheral IV Care [RC] . DIRECTED Sodium Chloride 0.9% [Saline Flush] 10 ml FLUSH ASDIRECTED PRN Peripheral IV Insertion Adult [OM.PC] Stat 02/26/20 11:01 HYDROmorphone [Dilaudid] 1 mg IVPUSH Q1H PRN 02/26/20 12:31 HYDROmorphone [Dilaudid] 1 mg IVPUSH ONETIME ONE - Assessment/Plan Last 24 Hours: My Active Orders 02/26/20 11:00 Peripheral IV Care [RC] . DIRECTED Sodium Chloride 0.9% [Saline Flush] 10 ml FLUSH ASDIRECTED PRN Peripheral IV Insertion Adult [OM.PC] Stat 02/26/20 11:01 HYDROmorphone [Dilaudid] 1 mg IVPUSH Q1H PRN 02/26/20 12:31 HYDROmorphone [Dilaudid] 1 mg IVPUSH ONETIME ONE
[2020-02-26] MEDS ORDERED: Lactated Ringers 1,000 ML IV ONE (11:00)
[2020-02-26] MEDS ORDERED: Sodium Chloride 0.9% 10 ML Syringe FLUSH PRN (11:00)
[2020-02-26] MEDS ORDERED: Ondansetron 4 MG/2 ML SDV IVPUSH ONE (11:00)
[2020-02-26] MEDS ORDERED: HYDROmorphone 1 MG/ML Syringe IVPUSH PRN (11:01)
[2020-02-26] MEDS ORDERED: HYDROmorphone 1 MG/ML Syringe IVPUSH ONE (12:31)
== END 2020-02-26 12:55 | disposition home or self-care (01) ==
LOC: JD.ED 10:31
DX: K85.90 Acute pancreatitis without necrosis or infection, unspecified (principal); R11.2 Nausea with vomiting, unspecified; I10 Essential (primary) hypertension; M19.90 Unspecified osteoarthritis, unspecified site; F41.9 Anxiety disorder, unspecified; F32.9 Major depressive disorder, single episode, unspecified; E03.9 Hypothyroidism, unspecified; E66.9 Obesity, unspecified; Z68.41 Body mass index [BMI] 40.0-44.9, adult; Z90.49 Acquired absence of other specified parts of digestive tract; Z98.84 Bariatric surgery status; Z88.8 Allergy status to other drugs, medicaments and biological substances; Z79.899 Other long term (current) drug therapy
CPT/HCPCS: 36415; 80053; 83690; 85025; 96361; 96374; 96375; 96376; 99284; J1170; J2405; J7120; 99283

== ENCOUNTER 2020-02-28 14:15 | Emergency (ER) | payer BC, MEDICARE ==
[2020-02-28 14:55] VITALS: PULSE 84
--- NOTE | 2020-02-28 16:28 | EDM.PDOC ---
ED HPI GENERAL MEDICAL PROBLEM - General Chief Complaint: Back Pain or Injury Stated Complaint: BACK PAIN Time Seen by Provider: 02/28/20 14:46 Source of Information: Reports: Patient History Limitations: Reports: No Limitations - History of Present Illness INITIAL COMMENTS - FREE TEXT/NARRATIVE: TRIAGE NOTE --pt is here for upper back pain and also abdomen just under the left breast. yesterday was okay day but before that was not good. pt has vomited today 3 times. also diarrhea 2 times. no respiratory issues or covid symptoms according to pt. pt has chronic pancreatitis. pt is totally clear of MRSA Patient says that she thinks her pancreas is inflamed. There is vague upper abdominal pain which she says radiates to her back. History of pancreatitis and other issues including drug-seeking behavior. Patient was seen recently and frequently. There is no focused complaint otherwise suggestive of an acute condition requiring further ER evaluation. Left Upper Back Pain Score (Numeric/FACES): 9 - Related Data Allergies Allergy/AdvReac Type Severity Reaction Status Date / Time amylase [From Creon] Allergy Rash Verified 02/28/20 17:59 buprenorphine [From Butrans] Allergy Itching Verified 02/28/20 17:59 lipase [From Creon] Allergy Rash Verified 02/28/20 17:59 metoclopramide HCl Allergy Itching Verified 02/28/20 17:59 [From Reglan] protease [From Creon] Allergy Rash Verified 02/28/20 17:59 ketorolac [From Toradol] AdvReac Bleeding Verified 02/28/20 17:59 NSAIDS (Non-Steroidal AdvReac Abdominal Verified 02/28/20 17:59 Anti-Inflamma Pain prochlorperazine AdvReac Vomiting Verified 02/28/20 17:59 [From Compazine] Home Meds: Home Meds Mirtazapine 30 mg PO BEDTIME 03/14/19 [History] Pantoprazole Sodium [Protonix] 40 mg PO BID 03/14/19 [History] Prazosin HCl [Prazosin] 5 mg PO BEDTIME 03/14/19 [History] Vortioxetine [Trintellix] 10 mg PO DAILY 03/14/19 [History] Ferrous Sulfate [Iron] 650 mg PO BID 05/15/19 [History] QUEtiapine Fumarate [Quetiapine Fumarate] 75 mg PO BEDTIME 05/15/19 [History] Cholecalciferol (Vitamin D3) [Vitamin D3] 1,000 intnl unit PO DAILY 06/28/19 [ History] Hydrocortisone [Cortef] 5 mg PO 0600 10/11/19 [History] Hydrocortisone [Cortef] 15 mg PO 1300 10/11/19 [History] Levothyroxine 125 mcg PO ACBREAKFAST 10/11/19 [History] Past Medical History - Past Health History Medical/Surgical History: Denies Medical/Surgical History HEENT History: Reports: Glaucoma, Otitis Media Cardiovascular History: Reports: Hypertension Other Cardiovascular History: tachycardia Gastrointestinal History: Reports: Chronic Constipation, Chronic Diarrhea, Hemorrhoids, Pancreatitis, Other (See Below) Other Gastrointestinal History: LUQ pain, hemorrhoids Genitourinary History: Reports: UTI, Recurrent ELECTRICAL REPAIRER History: Reports: Other ELECTRICAL REPAIRER History: c section x3, tubes tied Musculoskeletal History: Reports: Arthritis, Fracture, Other (See Below) Other Musculoskeletal History: left foot fracture, elbow pain, wrist pain, weakness, falls Neurological History: Reports: TIA, Other (See Below) Other Neuro History: pseudotumor, shunt, benign pineal brain tumor, memory loss , seizure disorder, vertigo, brain surgery x 16 Psychiatric History: Reports: Addiction, Anxiety, Depression 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, Hypothyroidism, Obesity /BMI 30+, Vitamin D Deficiency Other Endocrine/Metabolic History: hyperthyroidism, hypothyroidism, hashimotos, secondary adrenal insufficiency Hematologic History: Reports: Anemia, Other (See Below) Other Hematologic History: anti TPO antibody Immunologic History: Reports: None Dermatologic History: Reports: Cellulitis - Infectious Disease History Infectious Disease History: Reports: C-Difficile, MRSA Other Infectious Disease History: in 2006, 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." - Past Surgical History Head Surgeries/Procedures: Reports: Shunt HEENT Surgical History: Reports: Oral Surgery Other HEENT Surgeries/Procedures: [place] teeth removal. dental extraction GI Surgical History: Reports: Appendectomy, Bariatric Procedure, Cholecystectomy , Colonoscopy, EGD, ERCP Other GI Surgeries/Procedures: EUS Female Surgical History: Reports: Section, Tubal Ligation Neurological Surgical History: Reports: Other (See Below) Other Neurological Surgeries/Procedures: brain tumor removal Social & Family History - Family History Family Medical History: Noncontributory Cardiac: Reports: Bypass, Hypertension, [place] Respiratory: Reports: Asthma Oncologic: Reports: Colon - Tobacco Use Smoking Status *Q: Never Smoker - Caffeine Use Caffeine Use: Reports: Coffee Other Caffeine Use: 1 cup daily - Recreational Drug Use Recreational Drug Use: No - Living Situation & Occupation Living situation: Reports: , with Spouse Occupation: Unemployed ED ROS GENERAL - Review of Systems Review Of Systems: Comprehensive ROS is negative, except as noted in HPI. ED EXAM, GENERAL - Physical Exam Exam: See Below Exam Limited By: No Limitations General Appearance: Alert, WD/WN, No Apparent Distress Eye Exam: Bilateral Eye: EOMI, PERRL Ears: Normal External Exam Nose: Normal Inspection Throat/Mouth: Normal Inspection Head: Atraumatic, Normocephalic Neck: Normal Inspection, Supple Respiratory/Chest: No Respiratory Distress, Lungs Clear Cardiovascular: Regular Rate, Rhythm GI/Abdominal: Soft, Non-Tender Back Exam: Normal Inspection. No: CVA Tenderness (L), CVA Tenderness (R) Extremities: Normal Inspection, Non-Tender Neurological: Alert, Oriented Psychiatric: Normal Affect Skin Exam: Warm, Dry Course - Vital Signs Last Recorded V/S: Last Vital Signs Temp 36.6 C 02/28/20 14:52 Pulse 84 02/28/20 14:52 Resp 20 02/28/20 14:52 BP 147/98 H 02/28/20 14:52 Pulse Ox 95 02/28/20 14:52 - Orders/Labs/Meds Orders: Active Orders 24 hr Category Date Time Status LORazepam [Ativan] Med 02/28/20 18:05 Once 2 mg IM ONETIME ONE Medication Orders Lorazepam (Ativan) 2 mg IM ONETIME ONE Stop: 02/28/20 18:06 Labs: Laboratory Tests 02/28/20 02/28/20 Range/Units 17:15 17:15 WBC 7.18 (3.98-10.04) K/mm3 RBC 3.79 L (3.98-5.22) M/mm3 Hgb 12.4 D (11.2-15.7) gm/dl Hct 38.7 (34.1-44.9) % MCV 102.1 H (79.4-94.8) fl MCH 32.7 H (25.6-32.2) pg MCHC 32.0 L (32.2-35.5) g/dl RDW Std Deviation 47.8 H (36.4-46.3) fL Plt Count 234 (182-369) K/mm3 MPV 10.1 (9.4-12.3) fl Sodium 145 (136-145) mEq/L Potassium 4.1 (3.5-5.1) mEq/L Chloride 107 (98-107) mEq/L Carbon Dioxide 28 (21-32) mEq/L Anion Gap 14.1 (5-15) BUN 12 (7-18) mg/dL Creatinine 0.9 (0.55-1.02) mg/dL Est Cr Clr Drug Dosing 85.36 mL/min Estimated GFR (MDRD) > 60 (>60) mL/min BUN/Creatinine Ratio 13.3 L (14-18) Glucose 94 (74-106) mg/dL Calcium 9.4 (8.5-10.1) mg/dL Lipase 371 (73-393) U/L Meds: Medications Generic Name Dose Route Start Last Admin Trade Name Freq PRN Reason Stop Dose Admin Lorazepam 2 mg 02/28/20 18:05 Ativan IM 02/28/20 18:06 ONETIME ONE - Re-Assessments/Exams Free Text/Narrative Re-Assessment/Exam: 02/28/20 18:07 In response to the patient's focused complaint basic labs and lipase were done. There are no salient abnormals. There is no evidence of pancreatitis acutely. The patient is insisting on having something for "pain." As she seems to be getting not infrequent doses of opioids Ativan is being administered as patient may be experiencing some withdrawal symptoms. She has someone to take her home. She is urged to follow-up closely with her primary. Precautions for return to ER. Departure - Departure Time of Disposition: 18:10 Disposition: Home, Self-Care 01 Condition: Good Clinical Impression: Chronic pain syndrome - Discharge Information Instructions: Chronic Pain, Adult Referrals: Farzaneh Smith MD [Primary Care Provider] - Forms: ED Department Discharge Sepsis Event Note - Evaluation Sepsis Screening Result: No Definite Risk - Focused Exam Vital Signs: Vital Signs Temp Pulse Resp BP Pulse Ox 02/28/20 14:52 36.6 C 84 20 147/98 H 95 Date Exam was Performed: 02/28/20 Time Exam was Performed: 18:06 - My Orders Last 24 Hours: My Active Orders 02/28/20 18:05 LORazepam [Ativan] 2 mg IM ONETIME ONE - Assessment/Plan Last 24 Hours: My Active Orders 02/28/20 18:05 LORazepam [Ativan] 2 mg IM ONETIME ONE
[2020-02-28] MEDS ORDERED: LORazepam 2 MG/ML SDV IM ONE (18:05)
[2020-02-28 18:22] VITALS: BP 152/89
== END 2020-02-28 18:20 | disposition home or self-care (01) ==
LOC: JD.ED 14:15
DX: G89.4 Chronic pain syndrome (principal); I10 Essential (primary) hypertension; E03.9 Hypothyroidism, unspecified; Z88.8 Allergy status to other drugs, medicaments and biological substances; E66.9 Obesity, unspecified; Z68.38 Body mass index [BMI] 38.0-38.9, adult; Z79.899 Other long term (current) drug therapy; Z86.73 Personal history of transient ischemic attack (TIA), and cerebral infarction without residual deficits
CPT/HCPCS: 36415; 80048; 83690; 85027; 96372; 99284; J2060; 99283

== ENCOUNTER 2020-03-03 09:36 | Emergency (ER) | payer BC, MEDICARE ==
[2020-03-03 10:37] VITALS: BP 145/91; PULSE 85
--- NOTE | 2020-03-03 11:07 | EDM.PDOC ---
ED HPI GENERAL MEDICAL PROBLEM - General Chief Complaint: Gastrointestinal Problem Stated Complaint: PANCREATITIS Time Seen by Provider: 03/03/20 10:58 - History of Present Illness INITIAL COMMENTS - FREE TEXT/NARRATIVE: 44-year-old female presents to the emergency room with typical left upper quadrant discomfort. She has been seen multiple times for this. Patient sees Dr. Gutierrez gastroenterology/pancreas specialist at [facility]. And for her chronic pain with this is scheduled to have a nerve stimulator placed March 12 a week from this coming Thursday. The patient has developed some significant abdominal pain over the last 18 to 24 hours with associated nausea and vomiting. The patient was seen here on the and the for similar complaints had nondiagnostic labs evaluated. This is a typical finding with her. Left Abdomen Pain Score (Numeric/FACES): 7 - Related Data Allergies Allergy/AdvReac Type Severity Reaction Status Date / Time amylase [From Creon] Allergy Rash Verified 02/28/20 17:59 buprenorphine [From Butrans] Allergy Itching Verified 02/28/20 17:59 lipase [From Creon] Allergy Rash Verified 02/28/20 17:59 metoclopramide HCl Allergy Itching Verified 02/28/20 17:59 [From Reglan] protease [From Creon] Allergy Rash Verified 02/28/20 17:59 ketorolac [From Toradol] AdvReac Bleeding Verified 02/28/20 17:59 NSAIDS (Non-Steroidal AdvReac Abdominal Verified 02/28/20 17:59 Anti-Inflamma Pain prochlorperazine AdvReac Vomiting Verified 02/28/20 17:59 [From Compazine] Home Meds: Home Meds Mirtazapine 30 mg PO BEDTIME 03/14/19 [History] Pantoprazole Sodium [Protonix] 40 mg PO BID 03/14/19 [History] Prazosin HCl [Prazosin] 5 mg PO BEDTIME 03/14/19 [History] Vortioxetine [Trintellix] 10 mg PO DAILY 03/14/19 [History] Ferrous Sulfate [Iron] 650 mg PO BID 05/15/19 [History] QUEtiapine Fumarate [Quetiapine Fumarate] 75 mg PO BEDTIME 05/15/19 [History] Cholecalciferol (Vitamin D3) [Vitamin D3] 1,000 intnl unit PO DAILY 06/28/19 [ History] Hydrocortisone [Cortef] 5 mg PO 0600 10/11/19 [History] Hydrocortisone [Cortef] 15 mg PO 1300 10/11/19 [History] Levothyroxine 125 mcg PO ACBREAKFAST 10/11/19 [History] Past Medical History - Past Health History Medical/Surgical History: Denies Medical/Surgical History HEENT History: Reports: Glaucoma, Otitis Media Cardiovascular History: Reports: Hypertension Other Cardiovascular History: tachycardia Gastrointestinal History: Reports: Chronic Constipation, Chronic Diarrhea, Hemorrhoids, Pancreatitis, Other (See Below) Other Gastrointestinal History: LUQ pain, hemorrhoids Genitourinary History: Reports: UTI, Recurrent HEALTH ACTUARY History: Reports: Other HEALTH ACTUARY History: c section x3, tubes tied Musculoskeletal History: Reports: Arthritis, Fracture, Other (See Below) Other Musculoskeletal History: left foot fracture, elbow pain, wrist pain, weakness, falls Neurological History: Reports: TIA, Other (See Below) Other Neuro History: pseudotumor, shunt, benign pineal brain tumor, memory loss , seizure disorder, vertigo, brain surgery x 16 Psychiatric History: Reports: Addiction, Anxiety, Depression Endocrine/Metabolic History: 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, Hypothyroidism, Obesity /BMI 30+, Vitamin D Deficiency Other Endocrine/Metabolic History: hyperthyroidism, hypothyroidism, hashimotos, secondary adrenal insufficiency Hematologic History: Reports: Anemia, Other (See Below) Other Hematologic History: anti TPO antibody Immunologic History: Reports: None Dermatologic History: Reports: Cellulitis - Infectious Disease History Infectious Disease History: Reports: C-Difficile, MRSA Other Infectious Disease History: in 2006, 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." - Past Surgical History Head Surgeries/Procedures: Reports: Shunt HEENT Surgical History: Reports: Oral Surgery Other HEENT Surgeries/Procedures: [place] teeth removal. dental extraction GI Surgical History: Reports: Appendectomy, Bariatric Procedure, Cholecystectomy , Colonoscopy, EGD, ERCP Other GI Surgeries/Procedures: EUS Female Surgical History: Reports: Section, Tubal Ligation Neurological Surgical History: Reports: Other (See Below) Other Neurological Surgeries/Procedures: brain tumor removal Social & Family History - Family History Family Medical History: Noncontributory Cardiac: Reports: Bypass, Hypertension, [place] Respiratory: Reports: Asthma Oncologic: Reports: Colon - Tobacco Use Smoking Status *Q: Never Smoker - Caffeine Use Caffeine Use: Reports: Coffee Other Caffeine Use: 1 cup daily - Recreational Drug Use Recreational Drug Use: No - Living Situation & Occupation Living situation: Reports: , with Spouse Occupation: Unemployed ED ROS GENERAL - Review of Systems Review Of Systems: See Below Constitutional: Reports: No Symptoms ED EXAM, GI/ABD - Physical Exam Exam: See Below Exam Limited By: No Limitations General Appearance: Alert, No Apparent Distress Head: Atraumatic, Normocephalic Neck: Normal Inspection, Supple, Non-Tender, Full Range of Motion Respiratory/Chest: No Respiratory Distress, Lungs Clear, Normal Breath Sounds Cardiovascular: Normal Peripheral Pulses, Regular Rate, Rhythm, No Edema GI/Abdominal Exam: Normal Bowel Sounds, Soft, Other (She has left upper quadrant discomfort with palpation no rigidity rebound or guarding appreciated.) Back Exam: Normal Inspection. No: CVA Tenderness (L), CVA Tenderness (R) Course - Vital Signs Last Recorded V/S: Last Vital Signs Temp 36.4 C 03/03/20 10:35 Pulse 85 03/03/20 10:35 Resp 20 03/03/20 10:35 BP 145/91 H 03/03/20 10:35 Pulse Ox 97 03/03/20 10:35 - Orders/Labs/Meds Meds: Medications Discontinued Medications Generic Name Dose Route Start Last Admin Trade Name Freq PRN Reason Stop Dose Admin Hydromorphone HCl 2 mg 03/03/20 11:17 03/03/20 11:36 Dilaudid IM 03/03/20 11:18 2 mg ONETIME ONE Administration Promethazine HCl 25 mg 03/03/20 11:17 03/03/20 11:34 Phenergan IM 03/03/20 11:18 25 mg ONETIME ONE Administration - Re-Assessments/Exams Free Text/Narrative Re-Assessment/Exam: 03/03/20 12:04 I reluctantly gave her 2 mg of Dilaudid IM along with 25 mg of Phenergan she is doing much better. I gave the medications with her anticipating this nerve stimulator being placed we will see how she does after this is placed. I have asked her several times to have her scooter mechanic send us a letter she states that that is here however I cannot find it scanned into our system either in the clinic side or here in the hospital records. However that does not exclude that is not in her system somewhere. Apparently the patient was scheduled for Whipple procedure to have her pancreas removed however she did not tolerate the pancreatic enzymes. So this surgery would not be a viable option for her. Departure - Departure Time of Disposition: 12:05 Disposition: Home, Self-Care 01 Clinical Impression: LUQ abdominal pain - Discharge Information Referrals: Farzaneh Smith MD [Primary Care Provider] - Forms: ED Department Discharge Additional Instructions: Return to the emergency room with any questions problems or worsening symptoms. Follow-up with Dr. Smith in the next few weeks. Follow-up for this nerve stimulator as scheduled. Sepsis Event Note - Evaluation Sepsis Screening Result: No Definite Risk - Focused Exam Vital Signs: Vital Signs Temp Pulse Resp BP Pulse Ox 03/03/20 10:35 36.4 C 85 20 145/91 H 97 Date Exam was Performed: 03/03/20 Time Exam was Performed: 12:04
[2020-03-03] MEDS ORDERED: HYDROmorphone 1 MG/ML Syringe IM ONE (11:17)
[2020-03-03] MEDS ORDERED: Promethazine 25 MG/ML SDV IM ONE (11:17)
== END 2020-03-03 12:17 | disposition home or self-care (01) ==
LOC: JD.ED 09:36
DX: R10.12 Left upper quadrant pain (principal); I10 Essential (primary) hypertension; M19.90 Unspecified osteoarthritis, unspecified site; F41.9 Anxiety disorder, unspecified; F32.9 Major depressive disorder, single episode, unspecified; E03.9 Hypothyroidism, unspecified; Z90.49 Acquired absence of other specified parts of digestive tract; Z88.8 Allergy status to other drugs, medicaments and biological substances; Z79.899 Other long term (current) drug therapy
CPT/HCPCS: 96372; 99283; J1170; J2550

== ENCOUNTER 2020-03-21 13:36 | Emergency (ER) | payer BC ==
[2020-03-21 13:51] VITALS: BP 171/118; PULSE 91
--- NOTE | 2020-03-21 13:57 | EDM.PDOC ---
ED HPI GENERAL MEDICAL PROBLEM - General Chief Complaint: Abdominal Pain Stated Complaint: PANCREATITIS IS CAUSING CHEST PAIN Time Seen by Provider: 03/21/20 13:49 Source of Information: Reports: Patient History Limitations: Reports: No Limitations - History of Present Illness INITIAL COMMENTS - FREE TEXT/NARRATIVE: 44-year-old female attends the ED with severe left upper quadrant abdominal pain rating up into her left lower chest causing her to have splinting respirations. This started yesterday and progressed overnight. She has vomited x5 of bilious material last emesis was just before coming to the ED. No hematemesis. She is having diarrhea stools with stearrhea, and with this illness. She has a history of chronic necrotizing relapsing pancreatitis. Recent MRI done in [place] revealed that approximately half of her pancreas is undergoing necrotic change. She is still therefore a candidate for potential pancreatectomy. Her physicians advised that she is likely going to need insulin in the near future. 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 The pain today is 9 out of 10 which is the highest she is ever rated it. She did have a intrathecal device placed in [place] a week ago but it is not yet turned on. The plan is to turn it on and a week's time and hopefully this will give her approximately 70% relief of pain. Helped severe pruritus to oxycodone postop and therefore has been using some hydrocodone tablets. Denies any blood in the stool at this time Onset: Sudden Onset Date: 03/20/20 Duration: Day(s):, Chronic, Other (Usually has severe abdominal pain 2 days a week and the rest the week gets 2 or 3 which she lives with.) Location: Reports: Abdomen (Left upper quadrant of the demon radiating through to her back infrascapularly. Deep breathing makes the pain worse.) Quality: Reports: Ache, Burning, Sharp, Stabbing Severity: Severe (10) Improves with: Reports: None Worsens with: Reports: Eating, Other Context: Reports: Other (Neck relapsing pancreatitis). 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: Other (see below) (Pain medicines down.) Left Upper Abdomen Pain Score (Numeric/FACES): 9 - Related Data Allergies Allergy/AdvReac Type Severity Reaction Status Date / Time amylase [From Creon] Allergy Rash Verified 02/28/20 17:59 buprenorphine [From Butrans] Allergy Itching Verified 02/28/20 17:59 lipase [From Creon] Allergy Rash Verified 02/28/20 17:59 metoclopramide HCl Allergy Itching Verified 02/28/20 17:59 [From Reglan] protease [From Creon] Allergy Rash Verified 02/28/20 17:59 ketorolac [From Toradol] AdvReac Bleeding Verified 02/28/20 17:59 NSAIDS (Non-Steroidal AdvReac Abdominal Verified 02/28/20 17:59 Anti-Inflamma Pain prochlorperazine AdvReac Vomiting Verified 02/28/20 17:59 [From Compazine] Home Meds: Home Meds Mirtazapine 30 mg PO BEDTIME 03/14/19 [History] Pantoprazole Sodium [Protonix] 40 mg PO BID 03/14/19 [History] Prazosin HCl [Prazosin] 5 mg PO BEDTIME 03/14/19 [History] Vortioxetine [Trintellix] 10 mg PO DAILY 03/14/19 [History] Ferrous Sulfate [Iron] 650 mg PO BID 05/15/19 [History] QUEtiapine Fumarate [Quetiapine Fumarate] 75 mg PO BEDTIME 05/15/19 [History] Cholecalciferol (Vitamin D3) [Vitamin D3] 1,000 intnl unit PO DAILY 06/28/19 [ History] Hydrocortisone [Cortef] 5 mg PO 0600 10/11/19 [History] Hydrocortisone [Cortef] 15 mg PO 1300 10/11/19 [History] Levothyroxine 125 mcg PO ACBREAKFAST 10/11/19 [History] Hydrocodone/Acetaminophen [Hydrocodone-Acetamin 10-325 mg] 1 each PO Q4H PRN # 20 tablet 03/21/20 [Rx] Past Medical History - Past Health History Medical/Surgical History: Denies Medical/Surgical History HEENT History: Reports: Glaucoma, Otitis Media Cardiovascular History: Reports: Hypertension Other Cardiovascular History: tachycardia Gastrointestinal History: Reports: Chronic Constipation, Chronic Diarrhea, Hemorrhoids, Pancreatitis, Other (See Below) Other Gastrointestinal History: LUQ pain, hemorrhoids Genitourinary History: Reports: UTI, Recurrent SIDER History: Reports: Other SIDER History: c section x3, tubes tied Musculoskeletal History: Reports: Arthritis, Fracture, Other (See Below) Other Musculoskeletal History: left foot fracture, elbow pain, wrist pain, weakness, falls Neurological History: Reports: TIA, Other (See Below) Other Neuro History: pseudotumor, shunt, benign pineal brain tumor, memory loss , seizure disorder, vertigo, brain surgery x 16 Psychiatric History: Reports: Addiction, Anxiety, Depression Endocrine/Metabolic History: Reports: Macomb's Disease, Hypothyroidism, Obesity /BMI 30+, Vitamin D Deficiency Other Endocrine/Metabolic History: hyperthyroidism, hypothyroidism, hashimotos, secondary adrenal insufficiency Hematologic History: Reports: Anemia, Other (See Below) Other Hematologic History: anti TPO antibody Immunologic History: Reports: None Dermatologic History: Reports: Cellulitis - Infectious Disease History Infectious Disease History: Reports: C-Difficile, MRSA Other Infectious Disease History: in 2006, 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." - Past Surgical History Head Surgeries/Procedures: Reports: Shunt HEENT Surgical History: Reports: Oral Surgery Other HEENT Surgeries/Procedures: [place] teeth removal. dental extraction GI Surgical History: Reports: Appendectomy, Bariatric Procedure, Cholecystectomy , Colonoscopy, EGD, ERCP Other GI Surgeries/Procedures: EUS Female Surgical History: Reports: Section, Tubal Ligation Neurological Surgical History: Reports: Other (See Below) Other Neurological Surgeries/Procedures: brain tumor removal Social & Family History - Family History Family Medical History: Noncontributory Cardiac: Reports: Bypass, Hypertension, [place] Respiratory: Reports: Asthma Oncologic: Reports: Colon - Tobacco Use Smoking Status *Q: Never Smoker - Caffeine Use Caffeine Use: Reports: None Other Caffeine Use: 1 cup daily - Recreational Drug Use Recreational Drug Use: No - Living Situation & Occupation Living situation: Reports: , with Spouse Occupation: Unemployed ED ROS GENERAL - Review of Systems Review Of Systems: See Below Constitutional: Reports: Malaise, Weakness, Fatigue, Decreased Appetite. Denies : Fever, Chills HEENT: Reports: No Symptoms Respiratory: Reports: Shortness of Breath (Subjective shortness of breath is deep breathing makes the left-sided abdominal pain worse) Cardiovascular: Reports: Blood Pressure Problem Endocrine: Reports: Fatigue, Other (Diet with development of diabetes) GI/Abdominal: Reports: Abdominal Pain, Diarrhea (History of present illness diarrhea with steatorrhea due to malabsorption), Nausea, Vomiting (And severe nausea vomiting) : Reports: No Symptoms Musculoskeletal: Reports: Other (Mild low back pain at recent surgical implant of an thecal pain catheter. Wound is healing well) Skin: Reports: No Symptoms Neurological: Reports: Headache (Has chronic headaches due to benign intracranial hypertension with 15 previous shunt applications complicated by staph aureus infection and sepsis. Headaches are well controlled with gabapentin) Psychiatric: Reports: Depression (She admits that she has suicidal ideation on a fairly regular basis due to chronic illness) Hematologic/Lymphatic: Reports: No Symptoms Immunologic: Reports: No Symptoms ED EXAM, GI/ABD - Physical Exam Exam: See Below Exam Limited By: No Limitations General Appearance: Alert, WD/WN, Moderate Distress, Other (Vital signs show temperature 36.7 . Heart rate is 91. Respiratory is 20 BP elevated 171/118 pulse ox 97%) Eyes: Bilateral: Normal Appearance Respiratory/Chest: No Respiratory Distress, Lungs Clear, Normal Breath Sounds, No Accessory Muscle Use Cardiovascular: Normal Peripheral Pulses, Regular Rate, Rhythm, No Edema, No Gallop, No Murmur, No Rub GI/Abdominal Exam: Normal Bowel Sounds, Soft, No Organomegaly, No Distention, No Abnormal Bruit, Guarding ( guarding), Rebound, Tender (Tenderness left upper quadrant of the abdomen with) Back Exam: CVA Tenderness (L) Extremities: Normal Inspection, Normal Range of Motion, Non-Tender, No Pedal Edema, Normal Capillary Refill Neurological: Alert, Oriented, CN II-XII Intact, Normal Cognition Psychiatric: Normal Affect Skin Exam: Warm, Dry, Intact, Normal Color, No Rash Course - Vital Signs Last Recorded V/S: Last Vital Signs Temp 36.7 C 03/21/20 13:49 Pulse 91 03/21/20 13:49 Resp 20 03/21/20 13:49 BP 171/118 H 03/21/20 13:49 Pulse Ox 97 03/21/20 13:49 - Orders/Labs/Meds Orders: Active Orders 24 hr Category Date Time Status HYDROmorphone [Dilaudid] Med 03/21/20 15:05 Once 1 mg IM ONETIME ONE Meds: Medications Discontinued Medications Generic Name Dose Route Start Last Admin Trade Name Freq PRN Reason Stop Dose Admin Diphenhydramine HCl 25 mg 03/21/20 14:03 03/21/20 14:14 Benadryl IM 03/21/20 14:04 25 mg ONETIME ONE Administration Hydrocortisone Sodium Succinate 100 mg 03/21/20 13:58 03/21/20 14:13 Solu-Cortef IM 03/21/20 13:59 100 mg ONETIME ONE Administration Hydromorphone HCl 2 mg 03/21/20 13:57 03/21/20 14:16 Dilaudid IVPUSH 03/21/20 13:58 Not Given ONETIME ONE Hydromorphone HCl 2 mg 03/21/20 14:07 03/21/20 14:16 Dilaudid IM 03/21/20 14:08 2 mg ONETIME ONE Administration Lorazepam 2 mg 03/21/20 13:59 03/21/20 14:13 Ativan IM 03/21/20 14:00 2 mg ONETIME ONE Administration Promethazine HCl 37.5 mg 03/21/20 14:01 03/21/20 14:12 Phenergan IM 03/21/20 14:02 37.5 mg ONETIME ONE Administration - Radiology Interpretation Free Text/Narrative:: 44-year-old female presents to the ED due to recurrence of severe left upper quadrant abdominal pain patient is known to have chronic relapsing pancreatitis for greater than 5 years. Recent MRI reveals that there is a great deal of necrosis of the tail the pancreas and mid body of the pancreas. It is the opinion of her physicians that she is likely going to need insulin in the near future. 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 She had a recent intrathecal pain pump placed a week ago in [place] and has not yet turned on but is due to be turned on next week. Blood hopefully provide her with 70% pain relief. More recently she is developed severe itch from oxycodone products but hydrocodone is tolerated. At present she has not intractable nausea vomiting and severe steatorrhea. She will be given hydrocortisone 100 mg IM with Dilaudid 2 mg IM with Benadryl 25 mg IM and Phenergan 37.5 mg IM for pain and nausea relief. She has had these same dosages many times in the past. Be discharged home after this as she tolerates these medicines well her son is driving. - Re-Assessments/Exams Free Text/Narrative Re-Assessment/Exam: 03/21/20 15:06 reevaluation she still complains of left upper quadrant abdominal pain and rates it as 5-6 out of 10. The nausea is better. Will repeat Dilaudid 1 mg IM. She will be discharged home on [place] 10/325 mg tabs 1 or 2 every 4-6 hours necessary for pain relief. 20 tablets were provided. Departure - Departure Time of Disposition: 14:21 Disposition: Home, Self-Care 01 Condition: Fair Clinical Impression: Chronic relapsing pancreatitis, Intractable nausea and vomiting, Chronic abdominal pain - Discharge Information *PRESCRIPTION DRUG MONITORING PROGRAM REVIEWED*: Not Applicable *COPY OF PRESCRIPTION DRUG MONITORING REPORT IN PATIENT ALE: Not Applicable Prescriptions: Hydrocodone/Acetaminophen [Hydrocodone-Acetamin 10-325 mg] 1 each PO Q4H PRN # 20 tablet PRN Reason: Abdominal Pain Instructions: Pancreatitis Eating Plan, Intrathecal Pain Pump Information Referrals: Farzaneh Smith MD [Primary Care Provider] - Forms: ED Department Discharge Additional Instructions: Evaluation in the emergency room today in regards toRecurrent left upper quadrant abdominal pain compatible with chronic relapsing pancreatitis which were known to suffer from. Treated with interim muscular medications as you do not have adequate IV access. You were given Dilaudid 2 mg IM with Phenergan 37.5 mg IM with Benadryl 25 mg IM and your hydrocortisone 100 mg IM for nausea and pain relief. Sepsis Event Note - Focused Exam Vital Signs: Vital Signs Temp Pulse Resp BP Pulse Ox 03/21/20 13:49 36.7 C 91 20 171/118 H 97 Date Exam was Performed: 03/21/20 Time Exam was Performed: 15:06 - My Orders Last 24 Hours: My Active Orders 03/21/20 15:05 HYDROmorphone [Dilaudid] 1 mg IM ONETIME ONE - Assessment/Plan Last 24 Hours: My Active Orders 03/21/20 15:05 HYDROmorphone [Dilaudid] 1 mg IM ONETIME ONE
[2020-03-21] MEDS ORDERED: Hydrocortisone Sodium Succinate 100 MG/2 ML SDV IM ONE (13:58)
[2020-03-21] MEDS ORDERED: LORazepam 2 MG/ML SDV IM ONE (13:59)
[2020-03-21] MEDS ORDERED: Promethazine 25 MG/ML SDV IM ONE (14:01)
[2020-03-21] MEDS ORDERED: diphenhydrAMINE 50 MG/ML SDV IM ONE (14:03)
[2020-03-21] MEDS ORDERED: HYDROmorphone 1 MG/ML Syringe IM ONE ×3 (14:07→15:08)
[2020-03-21] MEDS: HYDROmorphone 1 MG/ML Syringe IVPUSH ONE ×2 (14:13→14:16)
== END 2020-03-21 15:11 | disposition home or self-care (01) ==
LOC: JD.ED 13:36
DX: K86.1 Other chronic pancreatitis (principal); I10 Essential (primary) hypertension; F41.9 Anxiety disorder, unspecified; F32.9 Major depressive disorder, single episode, unspecified; E05.90 Thyrotoxicosis, unspecified without thyrotoxic crisis or storm; E66.9 Obesity, unspecified; Z68.37 Body mass index [BMI] 37.0-37.9, adult; Z90.49 Acquired absence of other specified parts of digestive tract; Z98.51 Tubal ligation status; Z98.890 Other specified postprocedural states; Z88.6 Allergy status to analgesic agent; Z88.8 Allergy status to other drugs, medicaments and biological substances; Z79.899 Other long term (current) drug therapy; Z87.440 Personal history of urinary (tract) infections; Z86.73 Personal history of transient ischemic attack (TIA), and cerebral infarction without residual deficits
CPT/HCPCS: 96372; 99284; J1170; J1200; J1720; J2060; J2550

== ENCOUNTER 2020-03-25 09:40 | Emergency (ER) | payer BC ==
[2020-03-25 09:55] VITALS: BP 143/98; PULSE 95
--- NOTE | 2020-03-25 10:45 | EDM.PDOC ---
ED HPI GENERAL MEDICAL PROBLEM - General Chief Complaint: Abdominal Pain Stated Complaint: FEVER,COUGH,TIGHTNESS IN CHEST Time Seen by Provider: 03/25/20 10:35 - History of Present Illness INITIAL COMMENTS - FREE TEXT/NARRATIVE: 44-year-old female returns to emergency room with chest and abdominal pain. The patient has had worsening pain over the last 3 days. Yesterday unfortunately she ran out of her Zofran and was unable to keep her medications down. But she does state that Zofran works pretty well. Has multiple medical problems including chronic relapsing necrotizing pancreatitis usually her labs are normal MRI done this winter showed significant pancreatic necrosis. Her pancreas specialist is informed her that at some point she will need to start insulin for this. If the nausea developing last night she is been unable to keep her medications down including her pain medication and her hydrocortisone. Patient is scheduled to have her nerve stimulator that was placed on the the last month evaluated and turned on hopefully tomorrow. Also they have identified a plant-based pancreatic enzyme that she may be able to tolerate apparently the patient has pork intolerance and was not unable to take the Creon because of this. Is not been trialed on this as of yet. Abdomen Pain Score (Numeric/FACES): 7 - Related Data Allergies Allergy/AdvReac Type Severity Reaction Status Date / Time amylase [From Creon] Allergy Rash Verified 03/25/20 09:49 buprenorphine [From Butrans] Allergy Itching Verified 03/25/20 09:49 lipase [From Creon] Allergy Rash Verified 03/25/20 09:49 metoclopramide HCl Allergy Itching Verified 03/25/20 09:49 [From Reglan] protease [From Creon] Allergy Rash Verified 03/25/20 09:49 ketorolac [From Toradol] AdvReac Bleeding Verified 03/25/20 09:49 NSAIDS (Non-Steroidal AdvReac Abdominal Verified 03/25/20 09:49 Anti-Inflamma Pain prochlorperazine AdvReac Vomiting Verified 03/25/20 09:49 [From Compazine] Home Meds: Home Meds Mirtazapine 30 mg PO BEDTIME 03/14/19 [History] Pantoprazole Sodium [Protonix] 40 mg PO BID 03/14/19 [History] Prazosin HCl [Prazosin] 5 mg PO BEDTIME 03/14/19 [History] Vortioxetine [Trintellix] 10 mg PO DAILY 03/14/19 [History] Ferrous Sulfate [Iron] 650 mg PO BID 05/15/19 [History] QUEtiapine Fumarate [Quetiapine Fumarate] 75 mg PO BEDTIME 05/15/19 [History] Cholecalciferol (Vitamin D3) [Vitamin D3] 1,000 intnl unit PO DAILY 06/28/19 [ History] Hydrocortisone [Cortef] 5 mg PO 0600 10/11/19 [History] Hydrocortisone [Cortef] 15 mg PO 1300 10/11/19 [History] Levothyroxine 125 mcg PO ACBREAKFAST 10/11/19 [History] Hydrocodone/Acetaminophen [Hydrocodone-Acetamin 10-325 mg] 1 each PO Q4H PRN # 20 tablet 03/21/20 [Rx] Ondansetron [Zofran ODT] 4 mg PO Q6H PRN #20 tab.dis #2 Samples 03/25/20 [Rx] Past Medical History - Past Health History Medical/Surgical History: Denies Medical/Surgical History HEENT History: Reports: Glaucoma, Otitis Media Cardiovascular History: Reports: Hypertension Other Cardiovascular History: tachycardia Gastrointestinal History: Reports: Chronic Constipation, Chronic Diarrhea, Hemorrhoids, Pancreatitis, Other (See Below) Other Gastrointestinal History: LUQ pain, hemorrhoids Genitourinary History: Reports: UTI, Recurrent 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 HITTING COACH History: c section x3, tubes tied Musculoskeletal History: Reports: Arthritis, Fracture, Other (See Below) Other Musculoskeletal History: left foot fracture, elbow pain, wrist pain, weakness, falls Neurological History: Reports: TIA, Other (See Below) Other Neuro History: pseudotumor, shunt, benign pineal brain tumor, memory loss , seizure disorder, vertigo, brain surgery x 16 Psychiatric History: Reports: Addiction, Anxiety, Depression 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, Hypothyroidism, Obesity /BMI 30+, Vitamin D Deficiency Other Endocrine/Metabolic History: hyperthyroidism, hypothyroidism, hashimotos, secondary adrenal insufficiency Hematologic History: Reports: Anemia, Other (See Below) Other Hematologic History: anti TPO antibody Immunologic History: Reports: None Dermatologic History: Reports: Cellulitis - Infectious Disease History Infectious Disease History: Reports: C-Difficile, MRSA Other Infectious Disease History: in 2006, 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." - Past Surgical History Head Surgeries/Procedures: Reports: Shunt HEENT Surgical History: Reports: Oral Surgery Other HEENT Surgeries/Procedures: [place] teeth removal. dental extraction GI Surgical History: Reports: Appendectomy, Bariatric Procedure, Cholecystectomy , Colonoscopy, EGD, ERCP Other GI Surgeries/Procedures: EUS Female Surgical History: Reports: Section, Tubal Ligation Neurological Surgical History: Reports: Other (See Below) Other Neurological Surgeries/Procedures: brain tumor removal Social & Family History - Family History Family Medical History: Noncontributory Cardiac: Reports: Bypass, Hypertension, [place] Respiratory: Reports: Asthma Oncologic: Reports: Colon - Tobacco Use Smoking Status *Q: Never Smoker Second Hand Smoke Exposure: No - Caffeine Use Caffeine Use: Reports: None Other Caffeine Use: 1 cup daily - Living Situation & Occupation Living situation: Reports: , with Spouse Occupation: Unemployed ED ROS GENERAL - Review of Systems Review Of Systems: See Below Constitutional: Denies: Fever, Chills HEENT: Reports: No Symptoms Respiratory: Reports: No Symptoms Cardiovascular: Reports: Chest Pain (Patient believes this is coming from her abdomen and is fairly mild described more as a pressure) 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 Denies: Constipation, Diarrhea : Reports: No Symptoms Musculoskeletal: Reports: No Symptoms Skin: Reports: No Symptoms Neurological: Reports: No Symptoms ED EXAM, GI/ABD - Physical Exam Exam: See Below Exam Limited By: No Limitations General Appearance: Alert, No Apparent Distress Head: Atraumatic, Normocephalic Neck: Normal Inspection, Supple, Non-Tender, Full Range of Motion. No: Lymphadenopathy (L), Lymphadenopathy (R) Respiratory/Chest: No Respiratory Distress, Lungs Clear, Normal Breath Sounds Cardiovascular: Regular Rate, Rhythm, No Edema, No Murmur GI/Abdominal Exam: Normal Bowel Sounds, Soft, Other (Left upper quadrant discomfort no rebound or guarding noted no rigidity) Back Exam: Normal Inspection. No: CVA Tenderness (L), CVA Tenderness (R) Extremities: Normal Inspection, No Pedal Edema EKG INTERPRETATION EKG Date: 03/25/20 Rhythm: NSR Rate (Beats/Min): 74 Bandy: Normal P-Wave: Present QRS: Normal ST-T: Other (Near isoelectric T waves most notable in the precordial leads no acute ST changes) QT: Normal EKG Interpretation Comments: Borderline EKG Course - Vital Signs Last Recorded V/S: Last Vital Signs Temp 36.9 C 03/25/20 09:50 Pulse 95 03/25/20 09:50 Resp 14 03/25/20 09:50 BP 143/98 H 03/25/20 09:50 Pulse Ox 97 03/25/20 09:50 - Orders/Labs/Meds Orders: Active Orders 24 hr Category Date Time Status EKG Documentation Completion [RC] STAT Care 03/25/20 10:56 Active Labs: Laboratory Tests 03/25/20 03/25/20 Range/Units 11:07 11:07 WBC 7.91 (3.98-10.04) K/mm3 RBC 4.03 (3.98-5.22) M/mm3 Hgb 12.9 (11.2-15.7) gm/dl Hct 40.6 (34.1-44.9) % MCV 100.7 H (79.4-94.8) fl MCH 32.0 (25.6-32.2) pg MCHC 31.8 L (32.2-35.5) g/dl RDW Std Deviation 47.9 H (36.4-46.3) fL Plt Count 277 (182-369) K/mm3 MPV 9.7 (9.4-12.3) fl Neut % (Auto) 53.6 (34.0-71.1) % Lymph % (Auto) 31.2 (19.3-51.7) % Rogers % (Auto) 12.9 H (4.7-12.5) % Eos % (Auto) 1.8 (0.7-5.8) Baso % (Auto) 0.4 (0.1-1.2) % Neut # (Auto) 4.24 (1.56-6.13) K/mm3 Lymph # (Auto) 2.47 (1.18-3.74) K/mm3 Rogers # (Auto) 1.02 H (0.24-0.36) K/mm3 Eos # (Auto) 0.14 (0.04-0.36) K/mm3 Baso # (Auto) 0.03 (0.01-0.08) K/mm3 Sodium 147 H (136-145) mEq/L Potassium 3.7 (3.5-5.1) mEq/L Chloride 107 (98-107) mEq/L Carbon Dioxide 29 (21-32) mEq/L Anion Gap 14.7 (5-15) BUN 12 (7-18) mg/dL Creatinine 0.8 (0.55-1.02) mg/dL Est Cr Clr Drug Dosing 96.03 mL/min Estimated GFR (MDRD) > 60 (>60) mL/min BUN/Creatinine Ratio 15.0 (14-18) Glucose 74 (74-106) mg/dL Calcium 9.5 (8.5-10.1) mg/dL Total Bilirubin 0.2 (0.2-1.0) mg/dL AST 12 L (15-37) U/L ALT 14 (14-59) U/L Alkaline Phosphatase 50 (46-116) U/L Troponin I < 0.017 (0.00-0.056) ng/mL Total Protein 7.6 (6.4-8.2) g/dl Albumin 3.5 (3.4-5.0) g/dl Globulin 4.1 gm/dL Albumin/Globulin Ratio 0.9 L (1-2) Lipase 284 (73-393) U/L Meds: Medications Discontinued Medications Generic Name Dose Route Start Last Admin Trade Name Freq PRN Reason Stop Dose Admin Hydrocortisone Sodium Succinate 100 mg 03/25/20 11:01 03/25/20 11:20 Solu-Cortef IM 03/25/20 11:02 100 mg ONETIME ONE Administration Hydromorphone HCl 2 mg 03/25/20 11:00 Dilaudid IVPUSH 03/25/20 11:01 ONETIME ONE Hydromorphone HCl 2 mg 03/25/20 11:04 03/25/20 11:21 Dilaudid IM 03/25/20 11:05 2 mg ONETIME ONE Administration Lorazepam 0.5 mg 03/25/20 10:59 Ativan IVPUSH 03/25/20 11:00 ONETIME ONE Lorazepam 1 mg 03/25/20 11:04 03/25/20 11:21 Ativan IM 03/25/20 11:05 1 mg ONETIME ONE Administration Ondansetron HCl 4 mg 03/25/20 10:59 Zofran IVPUSH 03/25/20 11:00 ONETIME ONE Ondansetron HCl 8 mg 03/25/20 11:04 03/25/20 11:18 Zofran Odt PO 03/25/20 11:05 8 mg ONETIME ONE Administration - Re-Assessments/Exams Free Text/Narrative Re-Assessment/Exam: 03/25/20 12:18 Patient is doing much better after 1 mg of Ativan IM 8 mg of Zofran p.o. and 2 mg of Dilaudid IM laboratory valuation is unrevealing EKG is normal troponin is normal. She would like to go home Departure - Departure Time of Disposition: 12:19 Disposition: Home, Self-Care 01 Clinical Impression: Left upper quadrant abdominal pain, Pancreatitis, Chronic relapsing pancreatitis - Discharge Information Prescriptions: Ondansetron [Zofran ODT] 4 mg PO Q6H PRN #20 tab.dis #2 Samples PRN Reason: Nausea/Vomiting Referrals: Farzaneh Smith MD [Primary Care Provider] - Forms: ED Department Discharge Additional Instructions: Return to the emergency room with any questions problems or worsening symptoms. Follow-up tomorrow as scheduled to have your nerve stimulator turned on. And follow-up with GI, your pancreas doctor, as scheduled. Use the Zofran as needed for nausea and vomiting. Resume all your routine medications. Be sure to take your hydrocortisone as directed. Sepsis Event Note - Evaluation Sepsis Screening Result: No Definite Risk - Focused Exam Vital Signs: Vital Signs Temp Pulse Resp BP Pulse Ox 03/25/20 09:50 36.9 C 95 14 143/98 H 97 Date Exam was Performed: 03/25/20 Time Exam was Performed: 12:27 - My Orders Last 24 Hours: My Active Orders 03/25/20 10:56 EKG Documentation Completion [RC] STAT - Assessment/Plan Last 24 Hours: My Active Orders 03/25/20 10:56 EKG Documentation Completion [RC] STAT
[2020-03-25] MEDS ORDERED: LORazepam 2 MG/ML SDV IVPUSH ONE (10:59)
[2020-03-25] MEDS ORDERED: Ondansetron 4 MG/2 ML SDV IVPUSH ONE (10:59)
[2020-03-25] MEDS ORDERED: HYDROmorphone 1 MG/ML Syringe IVPUSH ONE (11:00)
[2020-03-25] MEDS ORDERED: Hydrocortisone Sodium Succinate 100 MG/2 ML SDV IM ONE (11:01)
[2020-03-25] MEDS ORDERED: HYDROmorphone 1 MG/ML Syringe IM ONE (11:04)
[2020-03-25] MEDS ORDERED: LORazepam 2 MG/ML SDV IM ONE (11:04)
[2020-03-25] MEDS ORDERED: Ondansetron 4 MG Tab.DIS PO ONE (11:04)
== END 2020-03-25 12:37 | disposition home or self-care (01) ==
LOC: JD.ED 09:40
DX: K86.1 Other chronic pancreatitis (principal); I10 Essential (primary) hypertension; F41.9 Anxiety disorder, unspecified; F32.9 Major depressive disorder, single episode, unspecified; E03.9 Hypothyroidism, unspecified; E66.9 Obesity, unspecified; E05.90 Thyrotoxicosis, unspecified without thyrotoxic crisis or storm; Z91.018 Allergy to other foods; Z87.440 Personal history of urinary (tract) infections; Z86.73 Personal history of transient ischemic attack (TIA), and cerebral infarction without residual deficits; Z88.3 Allergy status to other anti-infective agents; Z88.6 Allergy status to analgesic agent; Z88.8 Allergy status to other drugs, medicaments and biological substances; Z79.899 Other long term (current) drug therapy
CPT/HCPCS: 36415; 80053; 83690; 84484; 85025; 93005; 96372; 96374; 99285; A9270; J1170; J1720; J2060; 93010; 99284

== ENCOUNTER 2020-03-27 09:50 | Emergency (ER) | payer BC ==
[2020-03-27 10:08] VITALS: BP 175/94; PULSE 78
[2020-03-27] MEDS ORDERED: Promethazine 25 MG/ML SDV IM ONE (11:19)
[2020-03-27] MEDS ORDERED: HYDROmorphone 1 MG/ML Syringe IM ONE (11:19)
--- NOTE | 2020-03-27 11:28 | EDM.PDOC ---
ED HPI GENERAL MEDICAL PROBLEM - General Chief Complaint: Chest Pain Stated Complaint: BACK PAIN/CHEST PAIN Time Seen by Provider: 03/27/20 10:58 Source of Information: Reports: Patient, Old Records, RN Notes Reviewed History Limitations: Reports: No Limitations - History of Present Illness INITIAL COMMENTS - FREE TEXT/NARRATIVE: Patient is a 44-year-old female who presents to the ED for the evaluation of her left upper quadrant abdominal pain. She did state in triage that it was left-sided chest pain, but when talking with her she states this is same pain that she normally has in the left upper quadrant seem to be a little bit higher today, does radiate to the back like times before. Patient is well-known to this ER for multiple and same complaints. She is complaining also of nausea and vomiting, not been able to keep any sort of food or fluids down. She states this is been present since Thursday. She has had a spinal stimulator placed, but her physician in [place] states that to turn it on is a elective surgery, and they are not able to do elective surgeries at this time. So she has not had this turned on for pain control. The patient's primary care is Dr. Smith, and when asked why she does not follow-up with her primary care physician , she states that Dr. Smith refers her to her bindery supervisor for pain relief and control. Patient states that she had one Zofran left at home, but did not take this. Left Chest Pain Score (Numeric/FACES): 8 - Related Data Allergies Allergy/AdvReac Type Severity Reaction Status Date / Time amylase [From Creon] Allergy Rash Verified 03/27/20 10:08 buprenorphine [From Butrans] Allergy Itching Verified 03/27/20 10:08 lipase [From Creon] Allergy Rash Verified 03/27/20 10:08 metoclopramide HCl Allergy Itching Verified 03/27/20 10:08 [From Reglan] protease [From Creon] Allergy Rash Verified 03/27/20 10:08 ketorolac [From Toradol] AdvReac Bleeding Verified 03/27/20 10:08 NSAIDS (Non-Steroidal AdvReac Abdominal Verified 03/27/20 10:08 Anti-Inflamma Pain prochlorperazine AdvReac Vomiting Verified 03/27/20 10:08 [From Compazine] Home Meds: Home Meds Mirtazapine 30 mg PO BEDTIME 03/14/19 [History] Pantoprazole Sodium [Protonix] 40 mg PO BID 03/14/19 [History] Prazosin HCl [Prazosin] 5 mg PO BEDTIME 03/14/19 [History] Vortioxetine [Trintellix] 10 mg PO DAILY 03/14/19 [History] Ferrous Sulfate [Iron] 650 mg PO BID 05/15/19 [History] QUEtiapine Fumarate [Quetiapine Fumarate] 75 mg PO BEDTIME 05/15/19 [History] Cholecalciferol (Vitamin D3) [Vitamin D3] 1,000 intnl unit PO DAILY 06/28/19 [ History] Hydrocortisone [Cortef] 5 mg PO 0600 10/11/19 [History] Hydrocortisone [Cortef] 15 mg PO 1300 10/11/19 [History] Levothyroxine 125 mcg PO ACBREAKFAST 10/11/19 [History] Ondansetron [Zofran ODT] 4 mg PO Q8H PRN #28 tab.dis 03/27/20 [Rx] Past Medical History HEENT History: Reports: Glaucoma, Otitis Media Cardiovascular History: Reports: Hypertension Other Cardiovascular History: tachycardia Gastrointestinal History: Reports: Chronic Constipation, Chronic Diarrhea, Hemorrhoids, Pancreatitis, Other (See Below) Other Gastrointestinal History: LUQ pain, hemorrhoids Genitourinary History: Reports: UTI, Recurrent MEDICATION CARE MANAGER History: Reports: Other MEDICATION CARE MANAGER History: c section x3, tubes tied Musculoskeletal History: Reports: Arthritis, Fracture, Other (See Below) Other Musculoskeletal History: left foot fracture, elbow pain, wrist pain, weakness, falls Neurological History: Reports: TIA, Other (See Below) Other Neuro History: pseudotumor, shunt, benign pineal brain tumor, memory loss , seizure disorder, vertigo, brain surgery x 16 Psychiatric History: Reports: Addiction, Anxiety, Depression 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, Hypothyroidism, Obesity /BMI 30+, Vitamin D Deficiency Other Endocrine/Metabolic History: hyperthyroidism, hypothyroidism, hashimotos, secondary adrenal insufficiency Hematologic History: Reports: Anemia, Other (See Below) Other Hematologic History: anti TPO antibody Immunologic History: Reports: None Dermatologic History: Reports: Cellulitis - Infectious Disease History Infectious Disease History: Reports: C-Difficile, MRSA Other Infectious Disease History: in 2006, 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." - Past Surgical History Head Surgeries/Procedures: Reports: Shunt HEENT Surgical History: Reports: Oral Surgery Other HEENT Surgeries/Procedures: [place] teeth removal. dental extraction GI Surgical History: Reports: Appendectomy, Bariatric Procedure, Cholecystectomy , Colonoscopy, EGD, ERCP Other GI Surgeries/Procedures: EUS Female Surgical History: Reports: Section, Tubal Ligation Neurological Surgical History: Reports: Other (See Below) Other Neurological Surgeries/Procedures: brain tumor removal Musculoskeletal Surgical History: Reports: Other (See Below) Other Musculoskeletal Surgeries/Procedures:: spinal cord stimulator implanted. Social & Family History - Family History Family Medical History: Noncontributory Cardiac: Reports: Bypass, Hypertension, [place] Respiratory: Reports: Asthma Oncologic: Reports: Colon - Tobacco Use Smoking Status *Q: Never Smoker Second Hand Smoke Exposure: No - Caffeine Use Caffeine Use: Reports: None Other Caffeine Use: 1 cup daily - Recreational Drug Use Recreational Drug Use: No - Living Situation & Occupation Living situation: Reports: , with Spouse Occupation: Unemployed ED ROS GENERAL - Review of Systems Review Of Systems: Comprehensive ROS is negative, except as noted in HPI. ED EXAM, GI/ABD - Physical Exam Exam: See Below Exam Limited By: No Limitations General Appearance: Alert, WD/WN, No Apparent Distress (pt is walking around bed , and does appear to be in mild pain, clutching her LUQ) Eyes: Bilateral: Normal Appearance Ears: Normal External Exam Nose: Normal Inspection Throat/Mouth: Normal Inspection Head: Atraumatic, Normocephalic Neck: Normal Inspection Respiratory/Chest: No Respiratory Distress, Lungs Clear, Normal Breath Sounds, No Accessory Muscle Use, Chest Non-Tender Cardiovascular: Normal Peripheral Pulses, Regular Rate, Rhythm, No Murmur GI/Abdominal Exam: Normal Bowel Sounds, Soft, No Distention, No Mass, Tender ( LUQ) Extremities: Normal Inspection, Normal Capillary Refill Neurological: Alert, Oriented, Normal Cognition, No Motor/Sensory Deficits Psychiatric: Normal Affect, Normal Mood Skin Exam: Warm, Dry, Intact, Normal Color, No Rash Course - Vital Signs Last Recorded V/S: Last Vital Signs Temp 96.5 F L 03/27/20 09:55 Pulse 78 03/27/20 09:55 Resp 16 03/27/20 09:55 BP 175/94 H 03/27/20 09:55 Pulse Ox 99 03/27/20 09:55 - Orders/Labs/Meds Meds: Medications Discontinued Medications Generic Name Dose Route Start Last Admin Trade Name Freq PRN Reason Stop Dose Admin Hydromorphone HCl 2 mg 03/27/20 11:19 Dilaudid IM 03/27/20 11:20 ONETIME ONE Promethazine HCl 25 mg 03/27/20 11:19 Phenergan IM 03/27/20 11:20 ONETIME ONE - Re-Assessments/Exams Free Text/Narrative Re-Assessment/Exam: 03/27/20 11:28 Presents to the ED for her left upper quadrant pain. States this is the same as times before, she recently has been in this ER with labs done 2 days ago that were essentially normal. Will not repeat labs, have ordered 2 mg IM Dilaudid and 25 mg Phenergan, and will provide her with a prescription for Zofran for an outpatient basis and have her follow-up with her primary care and or GI doctor for further pain control. Departure - Departure Time of Disposition: 11:28 Disposition: Home, Self-Care 01 Condition: Good Clinical Impression: Chronic LUQ pain - Discharge Information *PRESCRIPTION DRUG MONITORING PROGRAM REVIEWED*: Yes *COPY OF PRESCRIPTION DRUG MONITORING REPORT IN PATIENT ALE: No Prescriptions: Ondansetron [Zofran ODT] 4 mg PO Q8H PRN #28 tab.dis PRN Reason: Nausea Instructions: Chronic Pain, Adult Referrals: Farzaneh Smith MD [Primary Care Provider] - Additional Instructions: You were seen in this ER for your left upper quadrant abdominal pain. You were given a injection of Dilaudid and Phenergan for symptomatic relief at today's visit. Highly and strongly recommend you follow-up with Dr. Smith, and/or your bindery supervisor for further pain control, as is not appropriate to be coming to the ER for chronic pain control. No labs were done at today's visit, as the pain as stated by you was the same as it has been in the past, and you recently had labs drawn 2 days ago, that were essentially within normal limits. Please return to the ER at any time however if symptoms change or worsen. Sepsis Event Note - Evaluation Sepsis Screening Result: No Definite Risk - Focused Exam Vital Signs: Vital Signs Temp Pulse Resp BP Pulse Ox 03/27/20 09:55 96.5 F L 78 16 175/94 H 99 Date Exam was Performed: 03/27/20 Time Exam was Performed: 11:23
== END 2020-03-27 11:48 | disposition home or self-care (01) ==
LOC: JD.ED 09:50
DX: G89.29 Other chronic pain (principal); R10.12 Left upper quadrant pain; I10 Essential (primary) hypertension; M19.90 Unspecified osteoarthritis, unspecified site; F32.9 Major depressive disorder, single episode, unspecified; E03.9 Hypothyroidism, unspecified; E05.90 Thyrotoxicosis, unspecified without thyrotoxic crisis or storm; Z90.49 Acquired absence of other specified parts of digestive tract; Z86.73 Personal history of transient ischemic attack (TIA), and cerebral infarction without residual deficits; Z98.51 Tubal ligation status; Z88.8 Allergy status to other drugs, medicaments and biological substances; Z79.899 Other long term (current) drug therapy; Z88.6 Allergy status to analgesic agent
CPT/HCPCS: 96372; 99283; J1170; J2550; 99282

== ENCOUNTER 2020-03-29 09:11 | Emergency (ER) | payer BC ==
[2020-03-29 09:31] VITALS: BP 168/111; PULSE 86
[2020-03-29] MEDS ORDERED: HYDROmorphone 1 MG/ML Syringe IM ONE ×2 (09:42→10:52)
[2020-03-29] MEDS ORDERED: diphenhydrAMINE 50 MG/ML SDV IM ONE (09:43)
[2020-03-29] MEDS ORDERED: Promethazine 25 MG/ML SDV IM ONE (09:43)
[2020-03-29] MEDS ORDERED: LORazepam 2 MG/ML SDV IM ONE (09:44)
--- NOTE | 2020-03-29 09:50 | EDM.PDOC ---
ED HPI GENERAL MEDICAL PROBLEM - General Chief Complaint: Abdominal Pain Stated Complaint: ABDOMINAL PAIN Time Seen by Provider: 03/29/20 09:28 Source of Information: Reports: Patient History Limitations: Reports: No Limitations - History of Present Illness INITIAL COMMENTS - FREE TEXT/NARRATIVE: 44-year-old female presents once again to the ED due to severe left upper quadrant abdominal pain rating through to her back under her scapula. This is characteristic of her pain syndrome for the last 6 years due to chronic relapsing pancreatitis. 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 She has been followed by a surgeon Dr. Amin at that institution. Recently she had an intrathecal pain stimulator placed surgically almost 3 weeks ago. Due to the COVID virus she has not been able to return to [place] to have it turned on yet. This is scheduled for tomorrow morning however. At present she has not eaten for 3 days. She has having severe [place] diarrhea and loses control of her bowels frequently. She has had 4 accidents in the last 12 hours. No blood per rectum. Organic pancreatic enzyme supplements are not helping digest food. He is here essentially seeking pain management. She had nausea and vomiting secondary to the pain mostly of bilious material. No hematemesis Onset: Other (Been having chronic severe pain for the last 5 days.) Onset Date: 03/24/20 Duration: Chronic, Getting Worse Location: Reports: Abdomen (Left upper quadrant of the abdomen rating through to the back under the left shoulder blade) Quality: Reports: Ache Severity: Severe (9-10 out of 10.) Improves with: Reports: None Worsens with: Reports: Eating Context: Reports: Other (Tonic problem). Denies: Activity, Exercise, Lifting, Sick Contact, Trauma Associated Symptoms: Reports: Nausea/Vomiting, Other (Diarrhea stools containing high fat content or steatorrhea.) Treatments LOSS PREVENTION/SAFETY DISTRICT MANAGER: Reports: Other (see below) Left Upper Abdominal Pain Score (Numeric/FACES): 9 - Related Data Allergies Allergy/AdvReac Type Severity Reaction Status Date / Time amylase [From Creon] Allergy Rash Verified 03/27/20 10:08 buprenorphine [From Butrans] Allergy Itching Verified 03/27/20 10:08 lipase [From Creon] Allergy Rash Verified 03/27/20 10:08 metoclopramide HCl Allergy Itching Verified 03/27/20 10:08 [From Reglan] protease [From Creon] Allergy Rash Verified 03/27/20 10:08 ketorolac [From Toradol] AdvReac Bleeding Verified 03/27/20 10:08 NSAIDS (Non-Steroidal AdvReac Abdominal Verified 03/27/20 10:08 Anti-Inflamma Pain prochlorperazine AdvReac Vomiting Verified 03/27/20 10:08 [From Compazine] Home Meds: Home Meds Mirtazapine 30 mg PO BEDTIME 03/14/19 [History] Pantoprazole Sodium [Protonix] 40 mg PO BID 03/14/19 [History] Prazosin HCl [Prazosin] 5 mg PO BEDTIME 03/14/19 [History] Vortioxetine [Trintellix] 10 mg PO DAILY 03/14/19 [History] Ferrous Sulfate [Iron] 650 mg PO BID 05/15/19 [History] QUEtiapine Fumarate [Quetiapine Fumarate] 75 mg PO BEDTIME 05/15/19 [History] Cholecalciferol (Vitamin D3) [Vitamin D3] 1,000 intnl unit PO DAILY 06/28/19 [ History] Hydrocortisone [Cortef] 5 mg PO 0600 10/11/19 [History] Hydrocortisone [Cortef] 15 mg PO 1300 10/11/19 [History] Levothyroxine 125 mcg PO ACBREAKFAST 10/11/19 [History] Ondansetron [Zofran ODT] 4 mg PO Q8H PRN #28 tab.dis 03/27/20 [Rx] fentaNYL [Duragesic] 1 patch TD Q72H #2 patch 03/29/20 [Rx] Past Medical History HEENT History: Reports: Glaucoma, Otitis Media Cardiovascular History: Reports: Hypertension Other Cardiovascular History: tachycardia Gastrointestinal History: Reports: Chronic Constipation, Chronic Diarrhea, Hemorrhoids, Pancreatitis, Other (See Below) Other Gastrointestinal History: LUQ pain, hemorrhoids Genitourinary History: Reports: UTI, Recurrent FREIGHT SOLICITOR History: Reports: Other FREIGHT SOLICITOR History: c section x3, tubes tied Musculoskeletal History: Reports: Arthritis, Fracture, Other (See Below) Other Musculoskeletal History: left foot fracture, elbow pain, wrist pain, weakness, falls Neurological History: Reports: TIA, Other (See Below) Other Neuro History: pseudotumor, shunt, benign pineal brain tumor, memory loss , seizure disorder, vertigo, brain surgery x 16 Psychiatric History: Reports: Addiction, Anxiety, Depression Endocrine/Metabolic History: 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, Hypothyroidism, Obesity /BMI 30+, Vitamin D Deficiency Other Endocrine/Metabolic History: hyperthyroidism, hypothyroidism, hashimotos, secondary adrenal insufficiency Hematologic History: Reports: Anemia, Other (See Below) Other Hematologic History: anti TPO antibody Immunologic History: Reports: None Dermatologic History: Reports: Cellulitis - Infectious Disease History Infectious Disease History: Reports: C-Difficile, MRSA Other Infectious Disease History: in 2006, 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." - Past Surgical History Head Surgeries/Procedures: Reports: Shunt HEENT Surgical History: Reports: Oral Surgery Other HEENT Surgeries/Procedures: [place] teeth removal. dental extraction GI Surgical History: Reports: Appendectomy, Bariatric Procedure, Cholecystectomy , Colonoscopy, EGD, ERCP Other GI Surgeries/Procedures: EUS Female Surgical History: Reports: Section, Tubal Ligation Neurological Surgical History: Reports: Other (See Below) Other Neurological Surgeries/Procedures: brain tumor removal Musculoskeletal Surgical History: Reports: Other (See Below) Other Musculoskeletal Surgeries/Procedures:: spinal cord stimulator implanted. Social & Family History - Family History Family Medical History: Noncontributory Cardiac: Reports: Bypass, Hypertension, [place] Respiratory: Reports: Asthma Oncologic: Reports: Colon - Tobacco Use Smoking Status *Q: Never Smoker - Caffeine Use Caffeine Use: Reports: None Other Caffeine Use: 1 cup daily - Living Situation & Occupation Living situation: Reports: , with Spouse Occupation: Unemployed ED ROS GENERAL - Review of Systems Review Of Systems: See Below Constitutional: Reports: Malaise, Weakness, Fatigue, Decreased Appetite, Weight Loss. Denies: Fever, Chills HEENT: Reports: Glasses Respiratory: Reports: Shortness of Breath (Take a full deep breath as it makes the left upper quadrant abdominal pain much worse.) Cardiovascular: Reports: No Symptoms, Blood Pressure Problem (Pressures elevated when she is not having severe pain.) Endocrine: Reports: Other (Pancreatic insufficiency) GI/Abdominal: Reports: Abdominal Pain, Diarrhea (steatorrhea ), Decreased Appetite, Nausea, Vomiting. Denies: Hematemesis : Reports: No Symptoms Musculoskeletal: Reports: Back Pain Skin: Reports: No Symptoms (Left upper back pain underneath the left shoulder blade.) Neurological: Reports: No Symptoms Psychiatric: Reports: Depression, Suicidal Ideation (Added to chronic illness. Admits to occasional suicidal ideation. Ends of hopelessness as the pain never seems to get better.) Hematologic/Lymphatic: Reports: No Symptoms Immunologic: Reports: No Symptoms ED EXAM, GI/ABD - Physical Exam Exam: See Below Exam Limited By: No Limitations General Appearance: Alert, WD/WN, Moderate Distress, Other (Is 36.4. Heart rate is 86 respiratory 16 BP 168 111. Pulse ox is 95% on room air.) Eyes: Bilateral: Normal Appearance (No scleral icterus or blepharal pallor.) Throat/Mouth: Other Head: Atraumatic (Tongue is mildly dry), Normocephalic Neck: Normal Inspection, Supple, Non-Tender, Full Range of Motion. No: Lymphadenopathy (L), Lymphadenopathy (R) Respiratory/Chest: No Respiratory Distress, Lungs Clear, Normal Breath Sounds, No Accessory Muscle Use, Chest Non-Tender Cardiovascular: Normal Peripheral Pulses, Regular Rate, Rhythm, No Edema, No Gallop, No Murmur, No Rub GI/Abdominal Exam: No Organomegaly, Guarding, Tender, Abnormal Bowel Sounds ( Bowel sounds are infrequent.). No: Rigid (Tender to palpation left upper quadrant of the abdomen with guarding), Rebound Back Exam: CVA Tenderness (L). No: CVA Tenderness (R), Decreased Range of Motion, Muscle Spasm Extremities: Normal Inspection, Normal Range of Motion, Non-Tender, No Pedal Edema Neurological: Alert, Oriented, CN II-XII Intact, Normal Cognition, Normal Gait Psychiatric: Normal Mood, Tearful Skin Exam: Warm, Dry, Intact, Normal Color, No Rash Course - Vital Signs Last Recorded V/S: Last Vital Signs Temp 36.4 C 03/29/20 09:28 Pulse 86 03/29/20 09:28 Resp 16 03/29/20 09:28 BP 168/111 H 03/29/20 09:28 Pulse Ox 95 03/29/20 09:28 - Orders/Labs/Meds Orders: Active Orders 24 hr Category Date Time Status EKG 12 Lead [EKG Documentation Completion] [RC] STAT Care 03/29/20 09:37 Active Meds: Medications Discontinued Medications Generic Name Dose Route Start Last Admin Trade Name Freq PRN Reason Stop Dose Admin Diphenhydramine HCl 50 mg 03/29/20 09:43 03/29/20 10:20 Benadryl IM 03/29/20 09:44 50 mg ONETIME ONE Administration Hydromorphone HCl 2 mg 03/29/20 09:42 03/29/20 10:21 Dilaudid IM 03/29/20 09:43 2 mg ONETIME ONE Administration Hydromorphone HCl 1 mg 03/29/20 10:52 03/29/20 10:58 Dilaudid IM 03/29/20 10:53 1 mg ONETIME ONE Administration Lorazepam 1.5 mg 03/29/20 09:44 03/29/20 10:21 Ativan IM 03/29/20 09:45 1.5 mg ONETIME ONE Administration Promethazine HCl 37.5 mg 03/29/20 09:43 03/29/20 10:22 Phenergan IM 03/29/20 09:44 37.5 mg ONETIME ONE Administration - Radiology Interpretation Free Text/Narrative:: 44-year-old female with known chronic relapsing pancreatitis and recently identified 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 She is scheduled to have her intrathecal implant which is a neurostimulator turned on in [place] tomorrow. The hope is that this can relieve up to 80% of her pain. She has no venous access. Once again given intramuscularly injections of Dilaudid 2 mg with 37.5 mg of Phenergan and Benadryl 50 mg IM and Ativan 1.5 mg IM for acute pain relief. She has tolerated this dosage many times in the past. - Re-Assessments/Exams Free Text/Narrative Re-Assessment/Exam: 03/29/20 11:18 I had asked the patient whether she had tried fentanyl patches in the past for pain control and she indicated that she had and that cost was a prohibitive factor. After she was discharged she discussed these with her and indicated that it was probably worth a try again. I will therefore give her to 25 mcg/h patches to be used 1 every 72 hours for pain relief. Departure - Departure Time of Disposition: 10:13 Disposition: Home, Self-Care 01 Condition: Fair Clinical Impression: Chronic relapsing pancreatitis, Steatorrhea, pancreatic Abdominal pain Qualifiers: Abdominal location: left upper quadrant Qualified Code(s): R10.12 - Left upper quadrant pain - Discharge Information *PRESCRIPTION DRUG MONITORING PROGRAM REVIEWED*: Not Applicable *COPY OF PRESCRIPTION DRUG MONITORING REPORT IN PATIENT ALE: Not Applicable Prescriptions: fentaNYL [Duragesic] 1 patch TD Q72H #2 patch Instructions: Chronic Pancreatitis Referrals: Farzaneh Smith MD [Primary Care Provider] - Forms: ED Department Discharge Additional Instructions: Evaluation in the emergency room today in regards to severe pain left upper quadrant of the abdomen rating through to your back characteristic of which you have been experiencing for the last 6 years due to chronic relapsing pancreatitis. 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 Shaded nausea vomiting secondary to pain response and chronic oily stools or diarrhea secondary to what we call steatorrhea due to malabsorption of any fats that you take in. You were treated in the emergency room with IM injections due to inability to access any veins. He received Dilaudid 3 mg IV with Ativan 1.5 mg and Phenergan 37.5 mg IV with Benadryl 50 mg IV for pain relief. You have plans to travel to [place] early tomorrow morning to have the intrathecal implant turned on that was placed surgically nearly 3 weeks ago. You are given a prescription for fentanyl patches 25mcg/h to use 1 patch every 72 hours for the next week for chronic pain relief. Hopefuly this will reduce a good portion of your chronic pain. Sepsis Event Note - Evaluation Sepsis Screening Result: No Definite Risk - Focused Exam Vital Signs: Vital Signs Temp Pulse Resp BP Pulse Ox 03/29/20 09:28 36.4 C 86 16 168/111 H 95 Date Exam was Performed: 03/29/20 Time Exam was Performed: 11:18 - My Orders Last 24 Hours: My Active Orders 03/29/20 09:37 EKG 12 Lead [EKG Documentation Completion] [RC] STAT - Assessment/Plan Last 24 Hours: My Active Orders 03/29/20 09:37 EKG 12 Lead [EKG Documentation Completion] [RC] STAT
== END 2020-03-29 11:02 | disposition home or self-care (01) ==
LOC: JD.ED 09:11
DX: K86.1 Other chronic pancreatitis (principal); K90.3 Pancreatic steatorrhea; I10 Essential (primary) hypertension; E03.9 Hypothyroidism, unspecified; E66.9 Obesity, unspecified; F41.9 Anxiety disorder, unspecified; F32.9 Major depressive disorder, single episode, unspecified; Z88.8 Allergy status to other drugs, medicaments and biological substances; Z88.6 Allergy status to analgesic agent; Z79.899 Other long term (current) drug therapy; Z86.73 Personal history of transient ischemic attack (TIA), and cerebral infarction without residual deficits
CPT/HCPCS: 93005; 96372; 99284-25; J1170; J1200; J2060; J2550

== ENCOUNTER 2020-04-13 09:20 | Emergency (ER) | payer BC, MEDICARE ==
[2020-04-13 09:36] VITALS: BP 144/107; PULSE 99
--- NOTE | 2020-04-13 10:17 | EDM.PDOC ---
ED HPI GENERAL MEDICAL PROBLEM - General Chief Complaint: General Stated Complaint: PANCREATITIS CAUSING CHEST PAIN Time Seen by Provider: 04/13/20 10:16 - History of Present Illness INITIAL COMMENTS - FREE TEXT/NARRATIVE: 44-year-old female presents the emergency room with recurrent left upper quadrant pain in her abdomen. Patient has a history of chronic pancreatitis. Patient recently had a nerve stimulator placed and is been working pretty well according to the patient however last night it stopped working she called the pain clinic they advised her to back off the levels. But she did not do well through the night. She a lot developed significant nausea and vomiting unable to keep her pain medications down. Patient denies any fevers or chills. Patient has been seen multiple times in this department for this. Basically at this time she is seeking pain control and nausea control so she can keep her oral pain medications down. Left Chest Pain Score (Numeric/FACES): 8 - Related Data Allergies Allergy/AdvReac Type Severity Reaction Status Date / Time amylase [From Creon] Allergy Rash Verified 04/13/20 09:36 buprenorphine [From Butrans] Allergy Itching Verified 04/13/20 09:36 lipase [From Creon] Allergy Rash Verified 04/13/20 09:36 metoclopramide HCl Allergy Itching Verified 04/13/20 09:36 [From Reglan] protease [From Creon] Allergy Rash Verified 04/13/20 09:36 ketorolac [From Toradol] AdvReac Bleeding Verified 04/13/20 09:36 NSAIDS (Non-Steroidal AdvReac Abdominal Verified 04/13/20 09:36 Anti-Inflamma Pain prochlorperazine AdvReac Vomiting Verified 04/13/20 09:36 [From Compazine] Home Meds: Home Meds Mirtazapine 30 mg PO BEDTIME 03/14/19 [History] Pantoprazole Sodium [Protonix] 40 mg PO BID 03/14/19 [History] Prazosin HCl [Prazosin] 5 mg PO BEDTIME 03/14/19 [History] Vortioxetine [Trintellix] 10 mg PO DAILY 03/14/19 [History] Ferrous Sulfate [Iron] 650 mg PO BID 05/15/19 [History] QUEtiapine Fumarate [Quetiapine Fumarate] 75 mg PO BEDTIME 05/15/19 [History] Cholecalciferol (Vitamin D3) [Vitamin D3] 1,000 intnl unit PO DAILY 06/28/19 [ History] Hydrocortisone [Cortef] 5 mg PO 0600 10/11/19 [History] Hydrocortisone [Cortef] 15 mg PO 1300 10/11/19 [History] Levothyroxine 125 mcg PO ACBREAKFAST 10/11/19 [History] Ondansetron [Zofran ODT] 4 mg PO Q8H PRN #28 tab.dis 03/27/20 [Rx] Past Medical History HEENT History: Reports: Glaucoma, Otitis Media Cardiovascular History: Reports: Hypertension Other Cardiovascular History: tachycardia Gastrointestinal History: Reports: Chronic Constipation, Chronic Diarrhea, Hemorrhoids, Pancreatitis, Other (See Below) Other Gastrointestinal History: LUQ pain, hemorrhoids Genitourinary History: Reports: UTI, Recurrent PEANUT ROASTER History: Reports: Other PEANUT ROASTER History: c section x3, tubes tied Musculoskeletal History: Reports: Arthritis, Fracture, Other (See Below) Other Musculoskeletal History: left foot fracture, elbow pain, wrist pain, weakness, falls Neurological History: Reports: TIA, Other (See Below) Other Neuro History: pseudotumor, shunt, benign pineal brain tumor, memory loss , seizure disorder, vertigo, brain surgery x 16 Psychiatric History: Reports: Addiction, Anxiety, Depression Endocrine/Metabolic History: Reports: [place]'s Disease, Hypothyroidism, Obesity /BMI 30+, Vitamin D Deficiency Other Endocrine/Metabolic History: hyperthyroidism, hypothyroidism, hashimotos, secondary adrenal insufficiency Hematologic History: Reports: Anemia, Other (See Below) Other Hematologic History: anti TPO antibody Immunologic History: Reports: None Dermatologic History: Reports: Cellulitis - Infectious Disease History Infectious Disease History: Reports: C-Difficile, MRSA Other Infectious Disease History: in 2006, 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." - Past Surgical History Head Surgeries/Procedures: Reports: Shunt HEENT Surgical History: Reports: Oral Surgery Other HEENT Surgeries/Procedures: David teeth removal. dental extraction GI Surgical History: Reports: Appendectomy, Bariatric Procedure, Cholecystectomy , Colonoscopy, EGD, ERCP Other GI Surgeries/Procedures: EUS Female Surgical History: Reports: Section, Tubal Ligation Neurological Surgical History: Reports: Other (See Below) Other Neurological Surgeries/Procedures: brain tumor removal Musculoskeletal Surgical History: Reports: Other (See Below) Other Musculoskeletal Surgeries/Procedures:: spinal cord stimulator implanted. Social & Family History - Family History Family Medical History: Noncontributory Cardiac: Reports: Bypass, Hypertension, [place] Respiratory: Reports: Asthma Oncologic: Reports: Colon - Caffeine Use Caffeine Use: Reports: None Other Caffeine Use: 1 cup daily - Living Situation & Occupation Living situation: Reports: , with Spouse Occupation: Unemployed ED ROS GENERAL - Review of Systems Review Of Systems: See Below Constitutional: Reports: No Symptoms HEENT: Reports: No Symptoms Respiratory: Reports: No Symptoms Cardiovascular: Reports: No Symptoms GI/Abdominal: Reports: Abdominal Pain, Nausea, Vomiting. Denies: Constipation, Diarrhea : Reports: No Symptoms Musculoskeletal: Reports: No Symptoms Neurological: Reports: No Symptoms ED EXAM, GENERAL - Physical Exam Exam: See Below Exam Limited By: No Limitations General Appearance: Alert, No Apparent Distress Respiratory/Chest: No Respiratory Distress, Lungs Clear, Normal Breath Sounds Cardiovascular: Regular Rate, Rhythm, No Edema, No Murmur GI/Abdominal: Normal Bowel Sounds, Soft, Other (Left upper quadrant discomfort. No rigidity rebound or guarding noted) Back Exam: Normal Inspection. No: CVA Tenderness (L), CVA Tenderness (R) Course - Vital Signs Last Recorded V/S: Last Vital Signs Temp 35.9 C L 04/13/20 09:32 Pulse 99 04/13/20 09:32 Resp 18 04/13/20 09:32 BP 144/107 H 04/13/20 09:32 Pulse Ox 97 04/13/20 09:32 - Orders/Labs/Meds Labs: Laboratory Tests 04/13/20 04/13/20 Range/Units 10:40 10:40 WBC 6.54 (3.98-10.04) K/mm3 RBC 4.03 (3.98-5.22) M/mm3 Hgb 13.0 (11.2-15.7) gm/dl Hct 40.3 (34.1-44.9) % MCV 100.0 H (79.4-94.8) fl MCH 32.3 H (25.6-32.2) pg MCHC 32.3 (32.2-35.5) g/dl RDW Std Deviation 46.1 (36.4-46.3) fL Plt Count 246 (182-369) K/mm3 MPV 9.6 (9.4-12.3) fl Neut % (Auto) 60.1 (34.0-71.1) % Lymph % (Auto) 28.9 (19.3-51.7) % [place] % (Auto) 9.8 (4.7-12.5) % Eos % (Auto) 0.9 (0.7-5.8) Baso % (Auto) 0.3 (0.1-1.2) % Neut # (Auto) 3.93 (1.56-6.13) K/mm3 Lymph # (Auto) 1.89 (1.18-3.74) K/mm3 [place] # (Auto) 0.64 H (0.24-0.36) K/mm3 Eos # (Auto) 0.06 (0.04-0.36) K/mm3 Baso # (Auto) 0.02 (0.01-0.08) K/mm3 Sodium 141 (136-145) mEq/L Potassium 3.6 (3.5-5.1) mEq/L Chloride 103 (98-107) mEq/L Carbon Dioxide 27 (21-32) mEq/L Anion Gap 14.6 (5-15) BUN 9 (7-18) mg/dL Creatinine 1.0 (0.55-1.02) mg/dL Est Cr Clr Drug Dosing 76.82 mL/min Estimated GFR (MDRD) 60 (>60) mL/min BUN/Creatinine Ratio 9.0 L (14-18) Glucose 92 (74-106) mg/dL Calcium 9.2 (8.5-10.1) mg/dL Total Bilirubin 0.3 (0.2-1.0) mg/dL AST 17 (15-37) U/L ALT 16 (14-59) U/L Alkaline Phosphatase 50 (46-116) U/L Total Protein 8.0 (6.4-8.2) g/dl Albumin 3.9 (3.4-5.0) g/dl Globulin 4.1 gm/dL Albumin/Globulin Ratio 1.0 (1-2) Lipase 230 (73-393) U/L Meds: Medications Discontinued Medications Generic Name Dose Route Start Last Admin Trade Name Freq PRN Reason Stop Dose Admin Hydromorphone HCl 1 mg 04/13/20 10:25 04/13/20 11:15 Dilaudid IM 04/13/20 10:26 1 mg ONETIME ONE Administration Lorazepam 1 mg 04/13/20 10:25 04/13/20 11:14 Ativan IM 04/13/20 10:26 1 mg ONETIME ONE Administration Promethazine HCl 25 mg 04/13/20 10:25 04/13/20 11:14 Phenergan IM 04/13/20 10:26 25 mg ONETIME ONE Administration - Re-Assessments/Exams Free Text/Narrative Re-Assessment/Exam: 04/13/20 11:23 The patient's labs are unrevealing. Patient is doing much better we will discharge. The patient did keep her steroids down this morning. Will take her next dose as soon as she gets home. 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 Follow-up with your pain clinic as scheduled Sepsis Event Note - Evaluation Sepsis Screening Result: No Definite Risk - Focused Exam Vital Signs: Vital Signs Temp Pulse Resp BP Pulse Ox 04/13/20 09:32 35.9 C L 99 18 144/107 H 97 Date Exam was Performed: 04/13/20 Time Exam was Performed: 11:23
[2020-04-13] MEDS ORDERED: HYDROmorphone 1 MG/ML Syringe IM ONE (10:25)
[2020-04-13] MEDS ORDERED: LORazepam 2 MG/ML SDV IM ONE (10:25)
[2020-04-13] MEDS ORDERED: Promethazine 25 MG/ML SDV IM ONE (10:25)
== END 2020-04-13 11:30 | disposition home or self-care (01) ==
LOC: JD.ED 09:20
DX: K86.1 Other chronic pancreatitis (principal); E27.1 Primary adrenocortical insufficiency; D89.89 Other specified disorders involving the immune mechanism, not elsewhere classified; I10 Essential (primary) hypertension; F41.9 Anxiety disorder, unspecified; F32.9 Major depressive disorder, single episode, unspecified; E03.9 Hypothyroidism, unspecified; E66.9 Obesity, unspecified; D64.9 Anemia, unspecified; Z86.73 Personal history of transient ischemic attack (TIA), and cerebral infarction without residual deficits; Z88.6 Allergy status to analgesic agent; Z88.8 Allergy status to other drugs, medicaments and biological substances; Z79.899 Other long term (current) drug therapy
CPT/HCPCS: 36415; 80053; 83690; 85025; 96372; 99284; J1170; J2060; J2550

== ENCOUNTER 2020-04-21 19:35 | Emergency (ER) | payer BC, MEDICARE ==
[2020-04-21 19:46] VITALS: BP 148/95; PULSE 78
--- NOTE | 2020-04-21 20:25 | EDM.PDOC ---
ED HPI GENERAL MEDICAL PROBLEM - General Chief Complaint: Chest Pain Stated Complaint: [facility] Time Seen by Provider: 04/21/20 19:48 Source of Information: Reports: Patient, Family () History Limitations: Reports: No Limitations - History of Present Illness INITIAL COMMENTS - FREE TEXT/NARRATIVE: Mrs. Nieto is a 44-year-old woman with a past medical history significant for well-established opioid-seeking behavior and chronic abdominal pain that she states is due to chronic pancreatitis, however, no work-up that has been performed at this facility, nor any work-up that we have received from outside facilities has ever been consistent with that diagnosis, who now presents to the ED stating that she developed bilateral leg cramps while walking this morning. She states that she sat down, and the pain radiated to her right chest. She states that the pain is sharp in character, and made slightly worse with respirations, but she has not identified any other modifiers. The pain radiates through to her right back. States that she has felt warm and diaphoretic. No associated dyspnea, nausea, or sense of impending doom. No prior similar symptoms. I am notified that EMS gave the patient 2 mg of IV Dilaudid en route to the ED. Here in the ED, the patient's initial BP is found to be mildly elevated at 148/ 95, otherwise, she is hemodynamically stable, afebrile, saturating 91% on room air. The patient is severely slurring her speech. Her states that that is because the paramedics gave him Dilaudid. Other than her current symptoms, the patient denies recent fever, chills, sore throat, ear pain, nasal or sinus congestion, cough, dyspnea, chest pain, palpitations, nausea, vomiting, constipation, diarrhea, abdominal pain, urinary symptoms, recent weight gain or weight loss, recent bloody bowel movements or black bowel movements, recent joint aches, headaches, or rashes. The patient's PCP is Dr. Farzaneh Smith, however, she also sees Dr. Dorian Kumar for treatment of her abdominal pain. Her pain offshoring manager is Dr. Uri Carmen, at [facility] in [place]. Her Deckhand Engineer is Dr. Berna Mahoney, at [facility]. Treatments HAIR DESIGNER: Reports: Other (see below) Other Treatments HAIR DESIGNER: dilaudid Right Chest Pain Score (Numeric/FACES): 7 - Related Data Allergies Allergy/AdvReac Type Severity Reaction Status Date / Time amylase [From Creon] Allergy Severe Rash Verified 04/21/20 19:46 buprenorphine [From Butrans] Allergy Severe Itching Verified 04/21/20 19:46 lipase [From Creon] Allergy Severe Rash Verified 04/21/20 19:46 metoclopramide HCl Allergy Severe Itching Verified 04/21/20 19:46 [From Reglan] protease [From Creon] Allergy Severe Rash Verified 04/21/20 19:46 ketorolac [From Toradol] AdvReac Severe Bleeding Verified 04/21/20 19:46 NSAIDS (Non-Steroidal AdvReac Severe Abdominal Verified 04/21/20 19:46 Anti-Inflamma Pain prochlorperazine AdvReac Severe Vomiting Verified 04/21/20 19:46 [From Compazine] Home Meds: Home Meds Mirtazapine 30 mg PO BEDTIME 03/14/19 [History] Pantoprazole Sodium [Protonix] 40 mg PO BID 03/14/19 [History] Prazosin HCl [Prazosin] 5 mg PO BEDTIME 03/14/19 [History] Vortioxetine [Trintellix] 10 mg PO DAILY 03/14/19 [History] Ferrous Sulfate [Iron] 650 mg PO BID 05/15/19 [History] QUEtiapine Fumarate [Quetiapine Fumarate] 75 mg PO BEDTIME 05/15/19 [History] Cholecalciferol (Vitamin D3) [Vitamin D3] 1,000 intnl unit PO DAILY 06/28/19 [ History] Hydrocortisone [Cortef] 5 mg PO 0600 10/11/19 [History] Hydrocortisone [Cortef] 15 mg PO 1300 10/11/19 [History] Levothyroxine 125 mcg PO ACBREAKFAST 10/11/19 [History] Ondansetron [Zofran ODT] 4 mg PO Q8H PRN #28 tab.dis 03/27/20 [Rx] Past Medical History Cardiovascular History: Reports: Hypertension Gastrointestinal History: Reports: Hemorrhoids Musculoskeletal History: Reports: Arthritis, Fracture (left foot) Neurological History: Reports: Other (See Below) (Pseudotumor cerebri, s/p STRUCTURES ASSEMBLER shunt) Psychiatric History: Reports: Addiction (opioids), Anxiety, Depression Endocrine/Metabolic History: Reports: Hypothyroidism, Obesity/BMI 30+, Vitamin D Deficiency, Other (See Below) (Secondary adrenal insufficiency) Hematologic History: Reports: Anemia, Iron Deficiency - Infectious Disease History Infectious Disease History: Reports: C-Difficile, MRSA - Past Surgical History Head Surgeries/Procedures: Reports: Shunt (STRUCTURES ASSEMBLER), Other (See Below) (Benign pineal gland excised 2012) HEENT Surgical History: Reports: Oral Surgery ( wisdom teeth extracted) GI Surgical History: Reports: Appendectomy, Bariatric Procedure (laparoscopic gastric sleeve 02/12/2016), Cholecystectomy (06/04/2015), Colonoscopy, EGD, ERCP Female Surgical History: Reports: Section (x 3), Tubal Ligation Neurological Surgical History: Reports: Other (See Below) (Thoracic spine neurostimulator) Social & Family History - Family History Family Medical History: Noncontributory Cardiac: Reports: Bypass, Hypertension, [place] Respiratory: Reports: Asthma Oncologic: Reports: Colon - Tobacco Use Smoking Status *Q: Never Smoker - Caffeine Use Caffeine Use: Reports: Coffee, Soda Other Caffeine Use: 1 cup daily - Recreational Drug Use Recreational Drug Use: No - Living Situation & Occupation Living situation: Reports: , with Spouse Occupation: Unemployed ED ROS GENERAL - Review of Systems Review Of Systems: Comprehensive ROS is negative, except as noted in HPI. ED EXAM, GENERAL - Physical Exam Exam: See Below Exam Limited By: No Limitations General Appearance: Alert, WD/WN, No Apparent Distress Eye Exam: Bilateral Eye: EOMI, Normal Inspection Ears: Normal External Exam, Hearing Grossly Normal Nose: Normal Inspection Throat/Mouth: Normal Inspection, Normal Lips, Normal Voice, No Airway Compromise Head: Atraumatic, Normocephalic Neck: Normal Inspection, Full Range of Motion Respiratory/Chest: No Respiratory Distress, Lungs Clear, Normal Breath Sounds, No Accessory Muscle Use, Chest Non-Tender (including the right chest) Cardiovascular: Normal Peripheral Pulses, Regular Rate, Rhythm, No Gallop, No JVD, No Murmur, No Rub Peripheral Pulses: 3+: Radial (L), Radial (R) GI/Abdominal: Normal Bowel Sounds, Soft, Non-Tender (including the epigastrium) , No Organomegaly, No Distention, No Abnormal Bruit, No Mass (Female) Exam: Deferred Rectal (Female) Exam: Deferred Back Exam: Normal Inspection, Full Range of Motion, NT Extremities: Normal Inspection, Normal Range of Motion, No Pedal Edema, Normal Capillary Refill Neurological: Oriented, No Motor/Sensory Deficits, Other (Heavily slurred speech ) Psychiatric: Normal Affect Skin Exam: Warm, Dry, Intact, Normal Color, No Rash EKG INTERPRETATION EKG Date: 04/21/20 Time: 20:16 Rhythm: NSR Rate (Beats/Min): 76 [place]: Normal P-Wave: Present QRS: Normal ST-T: Normal QT: Normal Comparison: Change From Previous EKG (QTc was prolonged 03/29/2020) Course - Vital Signs Last Recorded V/S: Last Vital Signs Temp 36.5 C 04/21/20 19:42 Pulse 78 04/21/20 19:42 Resp 18 04/21/20 19:42 BP 148/95 H 04/21/20 19:42 Pulse Ox 91 L 04/21/20 19:42 - Orders/Labs/Meds Orders: Active Orders 24 hr Category Date Time Status EKG Documentation Completion [RC] STAT Care 04/21/20 20:09 Active Chest 2V [CR] Stat Exams 04/21/20 20:09 Taken Labs: Laboratory Tests 04/21/20 04/21/20 04/21/20 Range/Units 20:35 20:35 20:35 WBC 9.66 (3.98-10.04) K/mm3 RBC 3.90 L (3.98-5.22) M/mm3 Hgb 12.6 (11.2-15.7) gm/dl Hct 39.8 (34.1-44.9) % MCV 102.1 H (79.4-94.8) fl MCH 32.3 H (25.6-32.2) pg MCHC 31.7 L (32.2-35.5) g/dl RDW Std Deviation 46.8 H (36.4-46.3) fL Plt Count 256 (182-369) K/mm3 MPV 10.1 (9.4-12.3) fl Neutrophils % (Manual) 52 (40-60) % Band Neutrophils % 1 (0-10) % Lymphocytes % (Manual) 44 H (20-40) % Atypical Lymphs % 0 % Monocytes % (Manual) 1 L (2-10) % Eosinophils % (Manual) 0 L (0.7-5.8) % Basophils % (Manual) 2 H (0.1-1.2) Platelet Estimate Adequate Anisocytosis 1+ slight Macrocytosis 1+ slight RBC Morph Comment Not Reportable D-Dimer, Quantitative 0.40 (0.19-0.50) mg/L Sodium 142 (136-145) mEq/L Potassium 4.1 (3.5-5.1) mEq/L Chloride 105 (98-107) mEq/L Carbon Dioxide 27 (21-32) mEq/L Anion Gap 14.1 (5-15) BUN 9 (7-18) mg/dL Creatinine 0.9 (0.55-1.02) mg/dL Est Cr Clr Drug Dosing 73.90 mL/min Estimated GFR (MDRD) > 60 (>60) mL/min BUN/Creatinine Ratio 10.0 L (14-18) Glucose 95 (74-106) mg/dL Calcium 9.1 (8.5-10.1) mg/dL Magnesium 1.8 (1.8-2.4) mg/dl Total Bilirubin 0.3 (0.2-1.0) mg/dL AST 22 (15-37) U/L ALT 14 (14-59) U/L Alkaline Phosphatase 56 (46-116) U/L Troponin I < 0.017 (0.00-0.056) ng/mL Total Protein 8.2 (6.4-8.2) g/dl Albumin 4.2 (3.4-5.0) g/dl Globulin 4.0 gm/dL Albumin/Globulin Ratio 1.1 (1-2) Lipase 298 (73-393) U/L Urine Opiates Screen (ZIHBIG=529) Ur Buprenorphine Scrn (CUTOFF=10) Ur Oxycodone Screen (URN2WK=188) Urine Methadone Screen (VCBAVS=327) Ur Propoxyphene Screen (YOUDAZ=114) Ur Barbiturates Screen (PROWEQ=089) Ur Tricyclics Screen (LCOEBD=740) Ur Phencyclidine Scrn (CUTOFF=25) Ur Amphetamine Screen (TXKEFL=292) U Methamphetamines Scrn (FPPRFL=657) U Benzodiazepines Scrn (SPIONG=096) U Cocaine Metab Screen (TOCGWN=666) U Marijuana (THC) Screen (CUTOFF=50) Ethyl Alcohol (0.00) gm% 04/21/20 04/21/20 Range/Units 20:35 21:50 WBC (3.98-10.04) K/mm3 RBC (3.98-5.22) M/mm3 Hgb (11.2-15.7) gm/dl Hct (34.1-44.9) % MCV (79.4-94.8) fl MCH (25.6-32.2) pg MCHC (32.2-35.5) g/dl RDW Std Deviation (36.4-46.3) fL Plt Count (182-369) K/mm3 MPV (9.4-12.3) fl Neutrophils % (Manual) (40-60) % Band Neutrophils % (0-10) % Lymphocytes % (Manual) (20-40) % Atypical Lymphs % % Monocytes % (Manual) (2-10) % Eosinophils % (Manual) (0.7-5.8) % Basophils % (Manual) (0.1-1.2) Platelet Estimate Anisocytosis Macrocytosis RBC Morph Comment D-Dimer, Quantitative (0.19-0.50) mg/L Sodium (136-145) mEq/L Potassium (3.5-5.1) mEq/L Chloride (98-107) mEq/L Carbon Dioxide (21-32) mEq/L Anion Gap (5-15) BUN (7-18) mg/dL Creatinine (0.55-1.02) mg/dL Est Cr Clr Drug Dosing mL/min Estimated GFR (MDRD) (>60) mL/min BUN/Creatinine Ratio (14-18) Glucose (74-106) mg/dL Calcium (8.5-10.1) mg/dL Magnesium (1.8-2.4) mg/dl Total Bilirubin (0.2-1.0) mg/dL AST (15-37) U/L ALT (14-59) U/L Alkaline Phosphatase (46-116) U/L Troponin I (0.00-0.056) ng/mL Total Protein (6.4-8.2) g/dl Albumin (3.4-5.0) g/dl Globulin gm/dL Albumin/Globulin Ratio (1-2) Lipase (73-393) U/L Urine Opiates Screen Presumptive positive H (BWOJMA=981) Ur Buprenorphine Scrn Negative (CUTOFF=10) Ur Oxycodone Screen Negative (JVD1IH=805) Urine Methadone Screen Negative (VOMJWN=593) Ur Propoxyphene Screen Negative (LIIQNQ=180) Ur Barbiturates Screen Negative (NDMIUL=478) Ur Tricyclics Screen Presumptive positive H (KVAYJB=715) Ur Phencyclidine Scrn Negative (CUTOFF=25) Ur Amphetamine Screen Negative (GPSIIC=137) U Methamphetamines Scrn Negative (KDEGYS=680) U Benzodiazepines Scrn Presumptive positive H (VIQXNJ=338) U Cocaine Metab Screen Negative (UGMCXH=313) U Marijuana (THC) Screen Negative (CUTOFF=50) Ethyl Alcohol 0.00 (0.00) gm% - Re-Assessments/Exams Free Text/Narrative Re-Assessment/Exam: 04/21/20 20:20 As above, the patient had bilateral lower extremity cramps today while walking around, and after she sat down, she developed pain behind her right breast. She states that it is somewhat pleuritic in nature, but is not reproducible by palpation on examination. I have ordered a work-up that includes blood work, a chest x-ray, and an ECG. The patient appears to be quite intoxicated, with heavily slurred speech. The patient's tells me that that is because of the Dilaudid that she was given by EMS en route, however, this patient is no stranger to opioids, and her degree of intoxication appears to be more than we would expect. I have therefore added an EtOH level and a urine drug screen. 04/21/20 22:27 Two-view chest radiograph reviewed. The cardiac silhouette is within normal limits. No pulmonary vascular congestion. No pleural effusions. No focal infiltrate. No pneumothorax. A thoracic spinal neurostimulator is noted. Formal read per the Radiologist pending. The patient's CBC is unremarkable. Her CMP is unremarkable. Her magnesium level is within normal limits at 1.8. Her lipase is within normal limits at 298. Her troponin is undetectably low. Her D-dimer is within normal limits at 0.40. Her EtOH level is 0.00. Her urine drug screen is positive for opiates, tricyclic antidepressants, and benzodiazepines, and is otherwise negative. The patient is not on a tricyclic antidepressant, however, metabolism of quietiapine (Seroquel) is known to cause a false positive tricyclic antidepressant on urine drug screens. The patient is not prescribed a benzodiazepine. I see that she was given 1 mg of lorazepam when she was last seen here on 04/13/2020, however, that was 8 days ago, and should not cause her urine drug screen to be positive for benzodiazepines tonight. 04/21/20 22:38 Test results discussed with the patient and her . She was found sleeping and needed to be woken up, although her speech is not nearly as slurred as it was earlier. She confirmed that she is not prescribed a benzodiazepine. I explained that her work-up was otherwise unremarkable, and that her chest pain is most likely musculoskeletal in etiology, since other conditions, such as an [place] or pulmonary embolus have been ruled out. I will discharge her home. Departure - Departure Time of Disposition: 22:39 Disposition: Home, Self-Care 01 Condition: Good Clinical Impression: Musculoskeletal chest pain - Discharge Information *PRESCRIPTION DRUG MONITORING PROGRAM REVIEWED*: Not Applicable *COPY OF PRESCRIPTION DRUG MONITORING REPORT IN PATIENT ALE: Not Applicable Instructions: Musculoskeletal Pain Referrals: Farzaneh Smith MD [Primary Care Provider] - Uri Carmen MD [Ordering Only Provider] - Dorian Kumar MD [Physician] - Berna Mahoney MD [Ordering Only Provider] - Forms: ED Department Discharge Additional Instructions: You were seen in the emergency room after developing lower extremity cramps while walking, followed by right-sided chest pain that radiated through to your back. Work-up in the ER included blood work, and drug screen, a chest x-ray, and an ECG. Your entire work-up was unremarkable. You have not suffered a heart attack. You do not have a blood clot in your lungs. You do not have pneumonia. You do not have a collapsed lung. You do not have pancreatitis. Based on your history, physical exam, and ER tests, your chest pain is most likely musculoskeletal in etiology. We recommend that you take [id number] Tylenol as needed for discomfort. It is important that you stay active. If your symptoms persist, please follow-up with your PCP, Dr. Farzaneh Smith. If any other problems, please do not hesitate to return to the ER. Sepsis Event Note - Evaluation Sepsis Screening Result: No Definite Risk - Focused Exam Vital Signs: Vital Signs Temp Pulse Resp BP Pulse Ox 04/21/20 19:42 36.5 C 78 18 148/95 H 91 L Date Exam was Performed: 04/21/20 Time Exam was Performed: 23:28 - My Orders Last 24 Hours: My Active Orders 04/21/20 20:09 EKG Documentation Completion [RC] STAT Chest 2V [CR] Stat - Assessment/Plan Last 24 Hours: My Active Orders 04/21/20 20:09 EKG Documentation Completion [RC] STAT Chest 2V [CR] Stat
--- NOTE | 2020-04-22 06:42 | CR ---
Chest: 2 views of the chest were obtained. Comparison: Prior chest x-ray of 12/18/18. Heart size and mediastinum are within normal limits. Electrostimulating device is noted within the thoracic spine. Thoracic spine shows scattered mild disc space narrowing. Lungs are clear with no acute parenchymal change. Impression: 1. Mild scattered disc space narrowing within the thoracic spine. Electrostimulating device is noted within the thoracic spine. 2. Nothing acute is appreciated on 2 view chest x-ray. Diagnostic code #2 This report was dictated in MDT
== END 2020-04-21 22:52 | disposition home or self-care (01) ==
LOC: JD.ED 19:35
DX: R07.89 Other chest pain (principal); I10 Essential (primary) hypertension; E03.9 Hypothyroidism, unspecified; E66.9 Obesity, unspecified; Z68.41 Body mass index [BMI] 40.0-44.9, adult; Z88.8 Allergy status to other drugs, medicaments and biological substances; Z88.6 Allergy status to analgesic agent; Z79.899 Other long term (current) drug therapy
CPT/HCPCS: 36415; 71046; 71046-26; 80053; 80306; 80307; 83690; 83735; 84484; 85007; 85027; 85379; 93005; 93010; 99283; 99285-25

== ENCOUNTER 2020-05-14 08:15 | Emergency (ER) | payer BC ==
--- NOTE | 2020-05-14 08:47 | EDM.PDOC ---
ED HPI GENERAL MEDICAL PROBLEM - General Chief Complaint: Abdominal Pain Stated Complaint: ABDOMINAL PAIN Time Seen by Provider: 05/14/20 08:40 Source of Information: Reports: Patient History Limitations: Reports: No Limitations - History of Present Illness INITIAL COMMENTS - FREE TEXT/NARRATIVE: 44-year-old female attends the ED with severe left upper quadrant abdominal pain rating through to her back inferior to the scapula. This is characteristic of her chronic pain syndrome related to chronic relapsing pancreatitis. Associated development of nausea and vomiting and inability keep anything down. She has had 6 loose steatorrhea stools which are dark chocolate and bile colored overnight. Patient had a spinal cord stimulation device placed towards the middle of March of this year which has helped control her pain approximately 75 to 80% of the time. She can modify with a remote control device to increase the stimulation during the day when she is up and turn it down a bit at night otherwise it will make her have nausea and vomiting. Pain syndrome started yesterday evening and she was up all night due to the pain with intractable nausea and vomiting. Her has accompanied to the ED today. She reports also development of a fever and she does feel warm to palpation. She feels diffusely bloated as well but no evidence of bowel obstruction. Genitourinary complaints no cough or sputum production. Nurses recorded temperature at present to be 36.3 but clinically she feels warmer than this. Onset: Sudden Onset Date: 05/13/20 Onset Time: 14:00 Duration: Hour(s):, Constant, Getting Worse, Other (Patient with intractable nausea and vomiting and steatorrhea diarrhea.) Location: Reports: Abdomen (Left upper quadrant of the on rating through to her back inferior to her scapula. This is characteristic of her chronic relapsing pancreatitis pain. 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 Denies: Activity, Exercise, Lifting, Sick Contact, Trauma Associated Symptoms: Reports: Fever/Chills (Fever with some chills reported by the patient developing yesterday.), Nausea/Vomiting (Tractable nausea and vomiting of bilious material. No hematemesis.), Other (Steatorrhea with 6 loose dark stools overnight.) Treatments DRAWER IN HAND: Reports: Acetaminophen Left Upper Abdomen Pain Score (Numeric/FACES): 8 - Related Data Allergies Allergy/AdvReac Type Severity Reaction Status Date / Time amylase [From Creon] Allergy Severe Rash Verified 05/14/20 08:33 buprenorphine [From Butrans] Allergy Severe Itching Verified 05/14/20 08:33 lipase [From Creon] Allergy Severe Rash Verified 05/14/20 08:33 metoclopramide HCl Allergy Severe Itching Verified 05/14/20 08:33 [From Reglan] protease [From Creon] Allergy Severe Rash Verified 05/14/20 08:33 ketorolac [From Toradol] AdvReac Severe Bleeding Verified 05/14/20 08:33 NSAIDS (Non-Steroidal AdvReac Severe Abdominal Verified 05/14/20 08:33 Anti-Inflamma Pain prochlorperazine AdvReac Severe Vomiting Verified 05/14/20 08:33 [From Compazine] Home Meds: Home Meds Mirtazapine 30 mg PO BEDTIME 03/14/19 [History] Pantoprazole Sodium [Protonix] 40 mg PO BID 03/14/19 [History] Prazosin HCl [Prazosin] 5 mg PO BEDTIME 03/14/19 [History] Vortioxetine [Trintellix] 10 mg PO DAILY 03/14/19 [History] Ferrous Sulfate [Iron] 650 mg PO BID 05/15/19 [History] QUEtiapine Fumarate [Quetiapine Fumarate] 75 mg PO BEDTIME 05/15/19 [History] Cholecalciferol (Vitamin D3) [Vitamin D3] 1,000 intnl unit PO DAILY 06/28/19 [History] Hydrocortisone [Cortef] 5 mg PO 0600 10/11/19 [History] Hydrocortisone [Cortef] 15 mg PO 1300 10/11/19 [History] Levothyroxine 125 mcg PO ACBREAKFAST 10/11/19 [History] Ondansetron [Zofran ODT] 4 mg PO Q8H PRN #28 tab.dis 03/27/20 [Rx] Past Medical History HEENT History: Reports: Glaucoma, Otitis Media Cardiovascular History: Reports: Hypertension Other Cardiovascular History: tachycardia Gastrointestinal History: Reports: Hemorrhoids Other Gastrointestinal History: LUQ pain, hemorrhoids Genitourinary History: Reports: UTI, Recurrent [employer] ADVISOR History: Reports: Other SENIOR GRADUATE ADVISOR History: c section x3, tubes tied Musculoskeletal History: Reports: Arthritis, Fracture (left foot) Other Musculoskeletal History: left foot fracture, elbow pain, wrist pain, weakness, falls Neurological History: Reports: Other (See Below) (Pseudotumor cerebri, s/p [employer] shunt) Other Neuro History: pseudotumor, shunt, benign pineal brain tumor, memory loss, seizure disorder, vertigo, brain surgery x 16 Psychiatric History: Reports: Addiction (opioids), Anxiety, Depression Endocrine/Metabolic History: Reports: Hypothyroidism, Obesity/BMI 30+, Vitamin D Deficiency, Other (See Below) (Secondary adrenal insufficiency) Other Endocrine/Metabolic History: hyperthyroidism, hypothyroidism, hashimotos, secondary adrenal insufficiency Hematologic History: Reports: Anemia, Iron Deficiency Other Hematologic History: anti TPO antibody Immunologic History: Reports: None Dermatologic History: Reports: Cellulitis - Infectious Disease History Infectious Disease History: Reports: C-Difficile, MRSA Other Infectious Disease History: in 2006, 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." - Past Surgical History Head Surgeries/Procedures: Reports: Shunt ([employer]), Other (See Below) (Benign pineal gland excised 2012) HEENT Surgical History: Reports: Oral Surgery ( wisdom teeth extracted) GI Surgical History: Reports: Appendectomy, Bariatric Procedure (laparoscopic gastric sleeve 02/12/2016), Cholecystectomy (06/04/2015), Colonoscopy, EGD, ERCP Female Surgical History: Reports: Section (x 3), Tubal Ligation Neurological Surgical History: Reports: Other (See Below) (Thoracic spine neurostimulator) Social & Family History - Family History Family Medical History: Noncontributory Cardiac: Reports: Bypass, Hypertension, [place] Respiratory: Reports: Asthma Oncologic: Reports: Colon - Caffeine Use Caffeine Use: Reports: Coffee, Soda Other Caffeine Use: 1 cup daily - Living Situation & Occupation Living situation: Reports: , with Spouse Occupation: Unemployed ED ROS GENERAL - Review of Systems Review Of Systems: See Below Constitutional: Reports: Fever, Chills, Malaise, Weakness, Fatigue, Decreased Appetite HEENT: Reports: Glasses Respiratory: Reports: No Symptoms Cardiovascular: Reports: No Symptoms, Other (Pressure is markedly elevated but she is on no meds for blood pressure control.) Endocrine: Reports: Fatigue GI/Abdominal: Reports: Abdominal Pain (See history of present illness.), Diarrhea (Steatorrhea diarrhea dark black and bile-stained.), Nausea, Vomiting (Intractable nausea and vomiting associate with severe left upper quadrant abdominal pain.). Denies: Hematochezia : Reports: No Symptoms. Denies: Dysuria Musculoskeletal: Reports: Back Pain (Left back pain inferior to the scapula.), Other (Spinal cord stimulating device is been placed in the right mid lower back inferior to the shoulder blade.) Skin: Reports: Other (Mildly warm to palpation particularly the abdomen.) Neurological: Reports: Difficulty Walking (Fronek problem) Psychiatric: Reports: No Symptoms Hematologic/Lymphatic: Reports: No Symptoms Immunologic: Reports: No Symptoms ED EXAM, GI/ABD - Physical Exam Exam: See Below Exam Limited By: No Limitations General Appearance: Alert, WD/WN, Moderate Distress, Other (Pressure is 164 108. Heart rate is 99 pulse ox 98% on room air. Temperature recorded 36.3 but patient feels warmer than this.) Eyes: Bilateral: Normal Appearance Throat/Mouth: Normal Lips, Normal Teeth, Normal Oropharynx, Normal Voice, Other (Tongue is dry and coated.) Head: Atraumatic, Normocephalic Neck: Normal Inspection, Supple, Non-Tender, Full Range of Motion. No: Carotid Bruit, Lymphadenopathy (L), Lymphadenopathy (R) Respiratory/Chest: No Respiratory Distress, Lungs Clear, Normal Breath Sounds, No Accessory Muscle Use Cardiovascular: Normal Peripheral Pulses, Regular Rate, Rhythm, No Edema, No Gallop, No Murmur, No Rub GI/Abdominal Exam: Soft, No Organomegaly ( Mildly tympanitic to percussion.), No Abnormal Bruit, No Mass, Distended (Abdomen is mildly distended throughout.), Guarding, Tender (Bowel sounds are very few and far between. Tender to palpation left upper quadrant the abdomen under the costal margin. Guarding present.), Abnormal Bowel Sounds. No: Rigid, Rebound Back Exam: Other (Surgical scar right lower back at the placement of spinal s timulator device has healed well. The area is not warm to palpation suggesting any sign of an infection.) Extremities: Normal Inspection, Normal Range of Motion, Non-Tender, No Pedal Edema Neurological: Alert, Oriented, CN II-XII Intact, Normal Cognition Psychiatric: Anxious Skin Exam: Warm, Dry, Intact, Normal Color, No Rash Course - Vital Signs Last Recorded V/S: Last Vital Signs Temp 36.6 C 05/14/20 09:15 Pulse 86 05/14/20 09:15 Resp 17 05/14/20 09:15 BP 136/107 H 05/14/20 09:15 Pulse Ox 95 05/14/20 09:15 - Orders/Labs/Meds Orders: Active Orders 24 hr Category Date Time Status CULTURE BLOOD [BC] Stat Lab 05/14/20 09:10 Received Blood Culture x2 Reflex Set [OM.PC] Stat Oth 05/14/20 08:48 Ordered Labs: Laboratory Tests 05/14/20 05/14/20 Range/Units 09:10 09:10 WBC 9.21 (3.98-10.04) K/mm3 RBC 3.74 L (3.98-5.22) M/mm3 Hgb 12.2 (11.2-15.7) gm/dl Hct 37.7 (34.1-44.9) % MCV 100.8 H (79.4-94.8) fl MCH 32.6 H (25.6-32.2) pg MCHC 32.4 (32.2-35.5) g/dl RDW Std Deviation 47.1 H (36.4-46.3) fL Plt Count 249 (182-369) K/mm3 MPV 10.0 (9.4-12.3) fl Neutrophils % (Manual) 78 H (40-60) % Band Neutrophils % 0 (0-10) % Lymphocytes % (Manual) 17 L (20-40) % Atypical Lymphs % 0 % Monocytes % (Manual) 4 (2-10) % Eosinophils % (Manual) 0 L (0.7-5.8) % Basophils % (Manual) 1 (0.1-1.2) Platelet Estimate Adequate RBC Morph Comment Normal Sodium 143 (136-145) mEq/L Potassium 3.7 (3.5-5.1) mEq/L Chloride 106 (98-107) mEq/L Carbon Dioxide 25 (21-32) mEq/L Anion Gap 15.7 H (5-15) BUN 11 (7-18) mg/dL Creatinine 0.9 (0.55-1.02) mg/dL Est Cr Clr Drug Dosing 85.36 mL/min Estimated GFR (MDRD) > 60 (>60) mL/min BUN/Creatinine Ratio 12.2 L (14-18) Glucose 95 (74-106) mg/dL Calcium 9.2 (8.5-10.1) mg/dL Total Bilirubin 0.2 (0.2-1.0) mg/dL AST 13 L (15-37) U/L ALT 16 (14-59) U/L Alkaline Phosphatase 52 (46-116) U/L Total Protein 7.8 (6.4-8.2) g/dl Albumin 3.6 (3.4-5.0) g/dl Globulin 4.2 gm/dL Albumin/Globulin Ratio 0.9 L (1-2) Lipase 254 (73-393) U/L Meds: Medications Discontinued Medications Generic Name Dose Route Start Last Admin Trade Name Freq PRN Reason Stop Dose Admin Hydromorphone HCl 2 mg 05/14/20 08:49 05/14/20 08:56 Dilaudid IM 05/14/20 08:50 2 mg ONETIME ONE Administration Hydromorphone HCl 2 mg 05/14/20 09:29 05/14/20 09:33 Dilaudid IM 05/14/20 09:30 2 mg ONETIME ONE Administration Hydromorphone HCl 2 mg 05/14/20 09:30 Dilaudid IM 05/14/20 09:31 ONETIME ONE Hydromorphone HCl 2 mg 05/14/20 10:04 05/14/20 10:09 Dilaudid IM 05/14/20 10:05 2 mg ONETIME ONE Administration Promethazine HCl 37.5 mg 05/14/20 08:49 05/14/20 08:55 Phenergan IM 05/14/20 08:50 37.5 mg ONETIME ONE Administration - Radiology Interpretation Free Text/Narrative:: 44-year-old female attends the ED due to intractable nausea and vomiting secondary to severe pain left upper quadrant of the abdomen. Patient is known to have chronic relapsing pancreatitis and recent MRI 3 months ago identified necrosis of the tail the pancreas. She has had a recent spinal cord stimulator placed right flank just inferior to the flank. In mid March which has controlled a 75% of her pain syndrome. However once while she still getting flareups of pancreatitis which precipitate pain syndrome and intractable nausea and vomiting. Such is the case starting yesterday afternoon. She is been up all night. She is also got associated steatorrhea bile-stained dark diarrhea. She states otherwise her stools have been nearly formed up and she has days where she can function fairly normally. The plan is still to have her go to the [facility] and the surgeon will resect half of her pancreas in the hopes of relieving her pain syndrome. Plan she will have labs done today because of reported fever chills and she does feel warm to palpation. It may be all due to pain syndrome. She is hypertensive. Given Dilaudid 2 mg IM with Phenergan 37.5 mg IM for pain relief. Labs to include a CBC with manual differential CMP and a lipase. IV access is almost impossible on this lady and therefore will not be attempted. - Re-Assessments/Exams Free Text/Narrative Re-Assessment/Exam: 05/14/20 09:30 White blood cell count is 9.21. Differential pending. Hemoglobin is 12.2 with hematocrit of 37.7. MCV is elevated at 100.8. Platelet count 249,000. She reports pain is still significant at 6-7 out of 10. Will therefore repeat Dilaudid 2 mg IM for pain relief. 05/14/20 09:59 Differential on the white count is 78% neutrophils no bands cells seen. Chemistry shows a sodium of 143 and a potassium of 3.7. Chloride 106 with a bicarb of 25. Anion gap is mildly elevated at 15.7. BUN is 11 with a creatinine of 0.9. Glucose is 95 and calcium is 9.2. Liver function is normal. Lipase is 254.Patient's pain is 4-5 out of 10. She looks much better and she is able to take some clear fluids orally. Will repeat Dilaudid 2 mg IM and then she should be able to go. Advised to follow-up if she continues to have fever or chills over the next 48 hours. Prescription written for Percocet 5/325 mg tabs 1 or 2 every 4-6 hours needed for pain relief x20 tabs. Zofran milligrams sublingual every 4-6 hours as needed x20 tablets through the [employer] machine. Departure - Departure Time of Disposition: 10:18 Disposition: Home, Self-Care 01 Condition: Fair Clinical Impression: Left upper quadrant abdominal pain, Intractable nausea and vomiting, Relapsing chronic pancreatitis - Discharge Information *PRESCRIPTION DRUG MONITORING PROGRAM REVIEWED*: Not Applicable *COPY OF PRESCRIPTION DRUG MONITORING REPORT IN PATIENT ALE: Not Applicable Referrals: Farzaneh Smith MD [Primary Care Provider] - Forms: ED Department Discharge Additional Instructions: Evaluation in the emergency room this morning in regards to a flareup of pancreatitis with severe left upper quadrant abdominal pain which precipitates intractable nausea and vomiting and steatorrhea diarrhea. Treated with intramuscular injection of Dilaudid 2 mg and Phenergan 37.5 mg IM to arrest vomiting and relieve pain. Lab work was performed this morning due to reported fever with chills as well as feeling quite warm to examination. Return to the ED if persistent fever or chills over the next 48 hours. May use Percocet tabs 5/325 mg 1 or 2 every 4-6 as necessary for pain relief. Zofran 4 mg under the tongue every 4-6 hours necessary for nausea/vomiting relief. Sepsis Event Note (ED) - Evaluation Sepsis Screening Result: Possible Sepsis Risk - Focused Exam Vital Signs: Vital Signs Temp Pulse Resp BP Pulse Ox 05/14/20 09:15 36.6 C 86 17 136/107 H 95 05/14/20 08:29 36.3 C 99 17 164/108 H 98 - My Orders Last 24 Hours: My Active Orders 05/14/20 08:48 Blood Culture x2 Reflex Set [OM.PC] Stat 05/14/20 09:10 CULTURE BLOOD [BC] Stat - Assessment/Plan Last 24 Hours: My Active Orders 05/14/20 08:48 Blood Culture x2 Reflex Set [OM.PC] Stat 05/14/20 09:10 CULTURE BLOOD [BC] Stat
[2020-05-14] MEDS ORDERED: Promethazine 25 MG/ML SDV IM ONE (08:49)
[2020-05-14] MEDS ORDERED: HYDROmorphone 1 MG/ML Syringe IM ONE ×4 (08:49→10:04)
[2020-05-14 11:17] VITALS: BP 120/88; PULSE 80
== END 2020-05-14 10:38 | disposition home or self-care (01) ==
LOC: JD.ED 08:15
DX: K86.1 Other chronic pancreatitis (principal); I10 Essential (primary) hypertension; M19.90 Unspecified osteoarthritis, unspecified site; F41.9 Anxiety disorder, unspecified; F32.9 Major depressive disorder, single episode, unspecified; E03.9 Hypothyroidism, unspecified; D64.9 Anemia, unspecified; E66.9 Obesity, unspecified; Z68.38 Body mass index [BMI] 38.0-38.9, adult; Z88.1 Allergy status to other antibiotic agents; Z88.8 Allergy status to other drugs, medicaments and biological substances; Z88.6 Allergy status to analgesic agent; Z79.899 Other long term (current) drug therapy
CPT/HCPCS: 36415; 80053; 83690; 85007; 85027; 87040; 96372; 99284; J1170; J2550; 99283

== ENCOUNTER 2020-05-17 12:58 | Emergency (ER) | payer BC ==
--- NOTE | 2020-05-17 13:41 | EDM.PDOC ---
ED HPI GENERAL MEDICAL PROBLEM - General Chief Complaint: Chest Pain Stated Complaint: ABDOMINAL PAIN Time Seen by Provider: 05/17/20 13:31 - History of Present Illness INITIAL COMMENTS - FREE TEXT/NARRATIVE: 44-year-old female returns to the emergency room with abdominal and chest pain. Patient has a history of chronic relapsing pancreatitis. She has follow-up with her pancreas specialist in [place] next week. They are considering partial pancreas resection. Patient has a nerve stimulator in place that has helped quite a bit with her discomfort. However she had her pain get worse last evening she tried soaking in the tub. This did not help she was hoping it would be better by the morning and it was not. And her home medications do not seem to help. Patient has not noticed any fevers or chills she has some nausea no significant vomiting. She is having her typical left upper quadrant discomfort radiating into her back and chest. Left Breast Pain Score (Numeric/FACES): 8 - Related Data Allergies Allergy/AdvReac Type Severity Reaction Status Date / Time amylase [From Creon] Allergy Severe Rash Verified 05/14/20 08:33 buprenorphine [From Butrans] Allergy Severe Itching Verified 05/14/20 08:33 lipase [From Creon] Allergy Severe Rash Verified 05/14/20 08:33 metoclopramide HCl Allergy Severe Itching Verified 05/14/20 08:33 [From Reglan] protease [From Creon] Allergy Severe Rash Verified 05/14/20 08:33 ketorolac [From Toradol] AdvReac Severe Bleeding Verified 05/14/20 08:33 NSAIDS (Non-Steroidal AdvReac Severe Abdominal Verified 05/14/20 08:33 Anti-Inflamma Pain prochlorperazine AdvReac Severe Vomiting Verified 05/14/20 08:33 [From Compazine] Home Meds: Home Meds Mirtazapine 30 mg PO BEDTIME 03/14/19 [History] Pantoprazole Sodium [Protonix] 40 mg PO BID 03/14/19 [History] Prazosin HCl [Prazosin] 5 mg PO BEDTIME 03/14/19 [History] Vortioxetine [Trintellix] 10 mg PO DAILY 03/14/19 [History] Ferrous Sulfate [Iron] 650 mg PO BID 05/15/19 [History] QUEtiapine Fumarate [Quetiapine Fumarate] 75 mg PO BEDTIME 05/15/19 [History] Cholecalciferol (Vitamin D3) [Vitamin D3] 1,000 intnl unit PO DAILY 06/28/19 [History] Hydrocortisone [Cortef] 5 mg PO 0600 10/11/19 [History] Hydrocortisone [Cortef] 15 mg PO 1300 10/11/19 [History] Levothyroxine 125 mcg PO ACBREAKFAST 10/11/19 [History] Ondansetron [Zofran ODT] 4 mg PO Q8H PRN #28 tab.dis 03/27/20 [Rx] Past Medical History HEENT History: Reports: Glaucoma, Otitis Media Cardiovascular History: Reports: Hypertension Other Cardiovascular History: tachycardia Gastrointestinal History: Reports: Hemorrhoids Other Gastrointestinal History: LUQ pain, hemorrhoids Genitourinary History: Reports: UTI, Recurrent 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: Reports: Other 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: c section x3, tubes tied Musculoskeletal History: Reports: Arthritis, Fracture (left foot) Other Musculoskeletal History: left foot fracture, elbow pain, wrist pain, weakness, falls Neurological History: Reports: Other (See Below) (Pseudotumor cerebri, s/p PORTRAIT STUDIO PHOTOGRAPHER shunt) Other Neuro History: pseudotumor, shunt, benign pineal brain tumor, memory loss, seizure disorder, vertigo, brain surgery x 16 Psychiatric History: Reports: Addiction (opioids), Anxiety, Depression Endocrine/Metabolic History: Reports: Hypothyroidism, Obesity/BMI 30+, Vitamin D Deficiency, Other (See Below) (Secondary adrenal insufficiency) Other Endocrine/Metabolic History: hyperthyroidism, hypothyroidism, hashimotos, secondary adrenal insufficiency Hematologic History: Reports: Anemia, Iron Deficiency Other Hematologic History: anti TPO antibody Immunologic History: Reports: None Dermatologic History: Reports: Cellulitis - Infectious Disease History Infectious Disease History: Reports: C-Difficile, MRSA Other Infectious Disease History: in 2006, 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." - Past Surgical History Head Surgeries/Procedures: Reports: Shunt (PORTRAIT STUDIO PHOTOGRAPHER), Other (See Below) (Benign pineal gland excised 2012) HEENT Surgical History: Reports: Oral Surgery ( wisdom teeth extracted) GI Surgical History: Reports: Appendectomy, Bariatric Procedure (laparoscopic gastric sleeve 02/12/2016), Cholecystectomy (06/04/2015), Colonoscopy, EGD, ERCP Female Surgical History: Reports: Section (x 3), Tubal Ligation Neurological Surgical History: Reports: Other (See Below) (Thoracic spine neurostimulator) Social & Family History - Family History Family Medical History: Noncontributory Cardiac: Reports: Bypass, Hypertension, [place] Respiratory: Reports: Asthma Oncologic: Reports: Colon - Caffeine Use Caffeine Use: Reports: Coffee, Soda Other Caffeine Use: 1 cup daily - Living Situation & Occupation Living situation: Reports: , with Spouse Occupation: Unemployed ED ROS GENERAL - Review of Systems Review Of Systems: See Below Constitutional: Reports: No Symptoms HEENT: Reports: No Symptoms Respiratory: Reports: No Symptoms Cardiovascular: Reports: Chest Pain (This is a typical pattern she gets with her pancreas pain) Endocrine: Reports: No Symptoms GI/Abdominal: Reports: Abdominal Pain : Reports: No Symptoms Neurological: Reports: No Symptoms ED EXAM, GENERAL - Physical Exam Exam: See Below Exam Limited By: No Limitations General Appearance: Alert Head: Atraumatic, Normocephalic Neck: Normal Inspection, Supple, Non-Tender, Full Range of Motion. No: Lymphadenopathy (L), Lymphadenopathy (R) Respiratory/Chest: No Respiratory Distress, Lungs Clear, Normal Breath Sounds Cardiovascular: Regular Rate, Rhythm, No Edema, No Murmur GI/Abdominal: Normal Bowel Sounds, Soft, Other (Again discomfort in the left upper quadrant if I try and push on this area her hands are on my arm pulling it away. No rebound.) Neurological: Alert, Oriented, Normal Cognition, Other (No evidence of intoxication at this time) EKG INTERPRETATION EKG Date: 05/17/20 Rhythm: NSR [place]: Normal P-Wave: Present QRS: Other (Poor R wave progression in the precordial leads) ST-T: Normal QT: Normal Comparison: No Change (Significant change from 04/21/2020) Course - Vital Signs Last Recorded V/S: Last Vital Signs Temp 36.6 C 05/17/20 13:06 Pulse 70 05/17/20 15:36 Resp 16 05/17/20 13:06 BP 136/70 05/17/20 15:36 Pulse Ox 98 05/17/20 15:36 - Orders/Labs/Meds Orders: Active Orders 24 hr Category Date Time Status EKG Documentation Completion [RC] STAT Care 05/17/20 13:49 Active Labs: Laboratory Tests 05/17/20 05/17/20 05/17/20 Range/Units 14:05 14:05 14:05 WBC 8.57 (3.98-10.04) K/mm3 RBC 3.73 L (3.98-5.22) M/mm3 Hgb 11.8 (11.2-15.7) gm/dl Hct 38.0 (34.1-44.9) % MCV 101.9 H (79.4-94.8) fl MCH 31.6 (25.6-32.2) pg MCHC 31.1 L (32.2-35.5) g/dl RDW Std Deviation 46.7 H (36.4-46.3) fL Plt Count 270 (182-369) K/mm3 MPV 9.8 (9.4-12.3) fl Neut % (Auto) 72.9 H (34.0-71.1) % Lymph % (Auto) 19.4 (19.3-51.7) % [place] % (Auto) 6.2 (4.7-12.5) % Eos % (Auto) 1.2 (0.7-5.8) Baso % (Auto) 0.2 (0.1-1.2) % Neut # (Auto) 6.25 H (1.56-6.13) K/mm3 Lymph # (Auto) 1.66 (1.18-3.74) K/mm3 [place] # (Auto) 0.53 H (0.24-0.36) K/mm3 Eos # (Auto) 0.10 (0.04-0.36) K/mm3 Baso # (Auto) 0.02 (0.01-0.08) K/mm3 D-Dimer, Quantitative 0.41 (0.19-0.50) mg/L Sodium 141 (136-145) mEq/L Potassium 4.2 (3.5-5.1) mEq/L Chloride 104 (98-107) mEq/L Carbon Dioxide 31 (21-32) mEq/L Anion Gap 10.2 (5-15) BUN 14 (7-18) mg/dL Creatinine 1.0 (0.55-1.02) mg/dL Est Cr Clr Drug Dosing 76.82 mL/min Estimated GFR (MDRD) 60 (>60) mL/min BUN/Creatinine Ratio 14.0 (14-18) Glucose 92 (74-106) mg/dL Calcium 9.2 (8.5-10.1) mg/dL Total Bilirubin 0.2 (0.2-1.0) mg/dL AST 16 (15-37) U/L ALT 16 (14-59) U/L Alkaline Phosphatase 56 (46-116) U/L Troponin I < 0.017 (0.00-0.056) ng/mL Total Protein 7.7 (6.4-8.2) g/dl Albumin 3.6 (3.4-5.0) g/dl Globulin 4.1 gm/dL Albumin/Globulin Ratio 0.9 L (1-2) Lipase 238 (73-393) U/L Meds: Medications Discontinued Medications Generic Name Dose Route Start Last Admin Trade Name Jean-Pierreq PRN Reason Stop Dose Admin Diphenhydramine HCl 25 mg 05/17/20 13:50 05/17/20 14:14 Benadryl IVPUSH 05/17/20 13:51 25 mg ONETIME ONE Administration Hydromorphone HCl 1 mg 05/17/20 13:50 05/17/20 14:14 Dilaudid IVPUSH 05/17/20 13:51 1 mg ONETIME ONE Administration Promethazine HCl 25 mg/ Sodium 51 mls @ 100 mls/hr 05/17/20 13:50 05/17/20 14:15 Chloride IV 05/17/20 14:20 100 mls/hr ONETIME ONE Administration - Re-Assessments/Exams Free Text/Narrative Re-Assessment/Exam: 05/17/20 15:17 Received a single dose of Dilaudid 1 mg Phenergan 25 and Benadryl 25 she is doing much better at this time. Labs are nondiagnostic including a negative troponin and d-dimer EKG shows no acute changes. Departure - Departure Time of Disposition: 15:18 Disposition: Home, Self-Care 01 Clinical Impression: Chronic relapsing pancreatitis - Discharge Information Instructions: Chronic Pancreatitis Referrals: Farzaneh Smith MD [Primary Care Provider] - Forms: ED Department Discharge Additional Instructions: Return to the emergency room with any questions problems or worsening symptoms. Follow-up with your pancreas specialist as scheduled next week. Sepsis Event Note (ED) - Evaluation Sepsis Screening Result: No Definite Risk - Focused Exam Vital Signs: Vital Signs Temp Pulse Resp BP Pulse Ox 05/17/20 15:36 70 136/70 98 05/17/20 13:06 36.6 C 98 16 133/98 H 96 - My Orders Last 24 Hours: My Active Orders 05/17/20 13:49 EKG Documentation Completion [RC] STAT - Assessment/Plan Last 24 Hours: My Active Orders 05/17/20 13:49 EKG Documentation Completion [RC] STAT
[2020-05-17] MEDS ORDERED: diphenhydrAMINE 50 MG/ML SDV IVPUSH ONE (13:50)
[2020-05-17] MEDS ORDERED: Promethazine 25 MG in Sodium Chloride 0.9% 50 ML IV ONE (13:50)
[2020-05-17] MEDS ORDERED: HYDROmorphone 1 MG/ML Syringe IVPUSH ONE (13:50)
[2020-05-17 15:38] VITALS: BP 136/70; PULSE 70
== END 2020-05-17 15:38 | disposition home or self-care (01) ==
LOC: JD.ED 12:58
DX: K86.1 Other chronic pancreatitis (principal); I10 Essential (primary) hypertension; E03.9 Hypothyroidism, unspecified; F41.9 Anxiety disorder, unspecified; F32.9 Major depressive disorder, single episode, unspecified; D64.9 Anemia, unspecified; E66.9 Obesity, unspecified; Z68.38 Body mass index [BMI] 38.0-38.9, adult; Z88.8 Allergy status to other drugs, medicaments and biological substances; Z88.6 Allergy status to analgesic agent; Z79.899 Other long term (current) drug therapy
CPT/HCPCS: 36415; 80053; 83690; 84484; 85025; 85379; 93005; 96365; 96375; 99285; J1170; J1200; J2550; J7050; 93010; 99283

== ENCOUNTER 2020-05-19 13:04 | Emergency (ER) | payer BC ==
[2020-05-19 13:19] VITALS: BP 148/104; PULSE 95
[2020-05-19] MEDS ORDERED: Sodium Chloride 0.9% 1,000 ML IV ONE (13:21)
[2020-05-19] MEDS ORDERED: Morphine 4 MG/ML Syringe IVPUSH ONE (13:22)
[2020-05-19] MEDS ORDERED: Ondansetron 4 MG/2 ML SDV IM ONE (13:24)
[2020-05-19] MEDS ORDERED: Morphine 4 MG/ML Syringe IM ONE (13:24)
--- NOTE | 2020-05-19 13:31 | EDM.PDOC ---
ED HPI GENERAL MEDICAL PROBLEM - General Chief Complaint: Fever Stated Complaint: FEVER/HEADACHE Time Seen by Provider: 05/19/20 13:27 Source of Information: Reports: Patient History Limitations: Reports: No Limitations - History of Present Illness INITIAL COMMENTS - FREE TEXT/NARRATIVE: It is an unfortunate morbidly obese 44-year-old female who presents to the emergency department today with complaint of epigastric and left upper quadrant abdominal pain cough congestion runny nose and fever. Patient reports that symptoms started yesterday she has been taking her Zofran at home and has been able to keep some fluids down but she did vomit once this morning taking Tylenol for her fever and she has not vomited again since she has been able to keep fluids down. Reports this pain is similar to previous episodes of exacerbations of her chronic pancreatitis patient also reports that she had bright red blood from her rectum this morning no other abdominal pain no shortness of breath no chest pain patient is resting in bed with no acute respiratory distress at this time Left Upper Abdomen Pain Score (Numeric/FACES): 8 - Related Data Allergies Allergy/AdvReac Type Severity Reaction Status Date / Time amylase [From Creon] Allergy Severe Rash Verified 05/14/20 08:33 buprenorphine [From Butrans] Allergy Severe Itching Verified 05/14/20 08:33 lipase [From Creon] Allergy Severe Rash Verified 05/14/20 08:33 metoclopramide HCl Allergy Severe Itching Verified 05/14/20 08:33 [From Reglan] protease [From Creon] Allergy Severe Rash Verified 05/14/20 08:33 ketorolac [From Toradol] AdvReac Severe Bleeding Verified 05/14/20 08:33 NSAIDS (Non-Steroidal AdvReac Severe Abdominal Verified 05/14/20 08:33 Anti-Inflamma Pain prochlorperazine AdvReac Severe Vomiting Verified 05/14/20 08:33 [From Compazine] Home Meds: Home Meds Mirtazapine 30 mg PO BEDTIME 03/14/19 [History] Pantoprazole Sodium [Protonix] 40 mg PO BID 03/14/19 [History] Prazosin HCl [Prazosin] 5 mg PO BEDTIME 03/14/19 [History] Vortioxetine [Trintellix] 10 mg PO DAILY 03/14/19 [History] Ferrous Sulfate [Iron] 650 mg PO BID 05/15/19 [History] QUEtiapine Fumarate [Quetiapine Fumarate] 75 mg PO BEDTIME 05/15/19 [History] Cholecalciferol (Vitamin D3) [Vitamin D3] 1,000 intnl unit PO DAILY 06/28/19 [History] Hydrocortisone [Cortef] 5 mg PO 0600 10/11/19 [History] Hydrocortisone [Cortef] 15 mg PO 1300 10/11/19 [History] Levothyroxine 125 mcg PO ACBREAKFAST 10/11/19 [History] Ondansetron [Zofran ODT] 4 mg PO Q8H PRN #28 tab.dis 03/27/20 [Rx] Past Medical History HEENT History: Reports: Glaucoma, Otitis Media Cardiovascular History: Reports: Hypertension Other Cardiovascular History: tachycardia Gastrointestinal History: Reports: Hemorrhoids Other Gastrointestinal History: LUQ pain, hemorrhoids Genitourinary History: Reports: UTI, Recurrent 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: Reports: Other 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: c section x3, tubes tied Musculoskeletal History: Reports: Arthritis, Fracture (left foot) Other Musculoskeletal History: left foot fracture, elbow pain, wrist pain, weakness, falls Neurological History: Reports: Other (See Below) (Pseudotumor cerebri, s/p PERSONNEL COORDINATOR shunt) Other Neuro History: pseudotumor, shunt, benign pineal brain tumor, memory loss, seizure disorder, vertigo, brain surgery x 16 Psychiatric History: Reports: Addiction (opioids), Anxiety, Depression Endocrine/Metabolic History: Reports: Hypothyroidism, Obesity/BMI 30+, Vitamin D Deficiency, Other (See Below) (Secondary adrenal insufficiency) Other Endocrine/Metabolic History: hyperthyroidism, hypothyroidism, hashimotos, secondary adrenal insufficiency Hematologic History: Reports: Anemia, Iron Deficiency Other Hematologic History: anti TPO antibody Immunologic History: Reports: None Dermatologic History: Reports: Cellulitis - Infectious Disease History Infectious Disease History: Reports: C-Difficile, MRSA Other Infectious Disease History: in 2006, 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." - Past Surgical History Head Surgeries/Procedures: Reports: Shunt (PERSONNEL COORDINATOR), Other (See Below) (Benign pineal gland excised 2012) HEENT Surgical History: Reports: Oral Surgery ( wisdom teeth extracted) GI Surgical History: Reports: Appendectomy, Bariatric Procedure (laparoscopic gastric sleeve 02/12/2016), Cholecystectomy (06/04/2015), Colonoscopy, EGD, ERCP Female Surgical History: Reports: Section (x 3), Tubal Ligation Neurological Surgical History: Reports: Other (See Below) (Thoracic spine neurostimulator) Social & Family History - Family History Family Medical History: Noncontributory Cardiac: Reports: Bypass, Hypertension, [place] Respiratory: Reports: Asthma Oncologic: Reports: Colon - Caffeine Use Caffeine Use: Reports: Coffee, Soda Other Caffeine Use: 1 cup daily - Living Situation & Occupation Living situation: Reports: , with Spouse Occupation: Unemployed ED ROS GENERAL - Review of Systems Review Of Systems: See Below Constitutional: Reports: Fever, Chills HEENT: Reports: Throat Pain Respiratory: Reports: Cough. Denies: Shortness of Breath Cardiovascular: Denies: Chest Pain GI/Abdominal: Reports: Abdominal Pain, Bloody Stool, Nausea, Vomiting Musculoskeletal: Reports: No Symptoms Skin: Reports: No Symptoms ED EXAM, GENERAL - Physical Exam Exam: See Below Exam Limited By: No Limitations General Appearance: Alert, Anxious, Moderate Distress, Obese Nose: Normal Inspection, Normal Mucosa, No Blood Throat/Mouth: Normal Inspection, Normal Lips, Normal Teeth, Normal Gums, Normal Oropharynx, Normal Voice, No Airway Compromise Head: Atraumatic, Normocephalic Neck: Normal Inspection, Supple, Non-Tender, Full Range of Motion Respiratory/Chest: No Respiratory Distress, Lungs Clear, Normal Breath Sounds, No Accessory Muscle Use, Chest Non-Tender Cardiovascular: Normal Peripheral Pulses, Regular Rate, Rhythm, No Edema, No Gallop, No JVD, No Murmur, No Rub GI/Abdominal: Normal Bowel Sounds, Tender (Moderate epigastric and left upper quadrant) Rectal (Female) Exam: Hemorrhoids (extermal ruptured hemorrhoid, medical social consultant female present for exam) Back Exam: Normal Inspection, Full Range of Motion, NT Extremities: Normal Inspection, Normal Range of Motion, Non-Tender, Normal Capillary Refill, No Pedal Edema Neurological: Alert, Oriented Skin Exam: Warm, Dry Course - Vital Signs Last Recorded V/S: Last Vital Signs Temp 97.8 F 05/19/20 13:15 Pulse 95 05/19/20 13:15 Resp 16 05/19/20 13:15 BP 148/104 H 05/19/20 13:15 Pulse Ox 98 05/19/20 13:15 - Orders/Labs/Meds Orders: Active Orders 24 hr Category Date Time Status CORONAVIRUS COVID-19 PCR PHL Stat Lab 05/19/20 13:21 Ordered Labs: Laboratory Tests 05/19/20 05/19/20 05/19/20 Range/Units 13:40 13:40 14:11 WBC 14.37 H (3.98-10.04) K/mm3 RBC 3.73 L (3.98-5.22) M/mm3 Hgb 11.9 (11.2-15.7) gm/dl Hct 38.4 (34.1-44.9) % MCV 102.9 H (79.4-94.8) fl MCH 31.9 (25.6-32.2) pg MCHC 31.0 L (32.2-35.5) g/dl RDW Std Deviation 48.1 H (36.4-46.3) fL Plt Count 250 (182-369) K/mm3 MPV 9.9 (9.4-12.3) fl Neut % (Auto) 77.9 H (34.0-71.1) % Lymph % (Auto) 13.0 L (19.3-51.7) % [place] % (Auto) 7.9 (4.7-12.5) % Eos % (Auto) 0.8 (0.7-5.8) Baso % (Auto) 0.2 (0.1-1.2) % Neut # (Auto) 11.19 H (1.56-6.13) K/mm3 Lymph # (Auto) 1.87 (1.18-3.74) K/mm3 [place] # (Auto) 1.14 H (0.24-0.36) K/mm3 Eos # (Auto) 0.11 (0.04-0.36) K/mm3 Baso # (Auto) 0.03 (0.01-0.08) K/mm3 Manual Slide Review Normal smear Sodium 143 (136-145) mEq/L Potassium 4.0 (3.5-5.1) mEq/L Chloride 105 (98-107) mEq/L Carbon Dioxide 30 (21-32) mEq/L Anion Gap 12.0 (5-15) BUN 11 (7-18) mg/dL Creatinine 0.9 (0.55-1.02) mg/dL Est Cr Clr Drug Dosing 85.36 mL/min Estimated GFR (MDRD) > 60 (>60) mL/min BUN/Creatinine Ratio 12.2 L (14-18) Glucose 94 (74-106) mg/dL Calcium 9.2 (8.5-10.1) mg/dL Total Bilirubin 0.2 (0.2-1.0) mg/dL AST 26 (15-37) U/L ALT 21 (14-59) U/L Alkaline Phosphatase 57 (46-116) U/L Total Protein 7.5 (6.4-8.2) g/dl Albumin 3.5 (3.4-5.0) g/dl Globulin 4.0 gm/dL Albumin/Globulin Ratio 0.9 L (1-2) Lipase 214 (73-393) U/L Urine Color Yellow (Yellow) Urine Appearance Clear (Clear) Urine pH 8.5 H (5.0-8.0) Ur Specific [place] 1.020 (1.005-1.030) Urine Protein Negative (Negative) Urine Glucose (UA) Negative (Negative) Urine Ketones Negative (Negative) Urine Occult Blood 1+ H (Negative) Urine Nitrite Negative (Negative) Urine Bilirubin Negative (Negative) Urine Urobilinogen 0.2 (0.2-1.0) Ur Leukocyte Esterase Negative (Negative) Urine RBC 5-10 H (0-5) /hpf Urine WBC 0-5 (0-5) /hpf Ur Squamous Epith Cells 5-10 H (0-5) /hpf Urine Bacteria Not seen (FEW) /hpf Urine Mucus Not seen (FEW) /hpf Meds: Medications Discontinued Medications Generic Name Dose Route Start Last Admin Trade Name Jean-Pierreq PRN Reason Stop Dose Admin Sodium Chloride 1,000 mls @ 1,000 mls/hr 05/19/20 13:21 Normal Saline IV 05/19/20 14:20 ONETIME ONE Morphine Sulfate 2 mg 05/19/20 13:22 Morphine IVPUSH 05/19/20 13:23 ONETIME ONE Morphine Sulfate 4 mg 05/19/20 13:24 05/19/20 13:35 Morphine IM 05/19/20 13:25 4 mg ONETIME ONE Administration Ondansetron HCl 4 mg 05/19/20 13:24 05/19/20 13:34 Zofran IM 05/19/20 13:56 4 mg ONETIME ONE Administration - Re-Assessments/Exams Free Text/Narrative Re-Assessment/Exam: 05/19/20 14:34 No evidence of acute pancreatitis at this time, I suspect patient has chronic pain and secondary to her upper respiratory infection symptoms we will send her home to be on quarantine for suspected coronavirus Departure - Departure Time of Disposition: 14:34 Disposition: Home, Self-Care 01 Condition: Good Clinical Impression: Chronic abdominal pain Upper respiratory infection Qualifiers: URI type: unspecified viral URI Qualified Code(s): J06.9 - Acute upper respiratory infection, unspecified Hemorrhoids Qualifiers: Hemorrhoid type: unspecified Qualified Code(s): K64.9 - Unspecified hemorrhoids - Discharge Information Referrals: Farzaneh Smith MD [Primary Care Provider] - Forms: ED Department Discharge Additional Instructions: Home, rest, Tylenol for fever or pain, please stay in quarantine for 14 days, we will call you with jim viral results when we get the results back, return as needed for worsening condition, Tucks medicated pads for your hemorrhoids as needed Sepsis Event Note (ED) - Evaluation Sepsis Screening Result: No Definite Risk - Focused Exam Vital Signs: Vital Signs Temp Pulse Resp BP Pulse Ox 05/19/20 13:15 97.8 F 95 16 148/104 H 98 - My Orders Last 24 Hours: My Active Orders 05/19/20 13:21 CORONAVIRUS COVID-19 PCR PHL Stat - Assessment/Plan Last 24 Hours: My Active Orders 05/19/20 13:21 CORONAVIRUS COVID-19 PCR PHL Stat
== END 2020-05-19 14:57 | disposition home or self-care (01) ==
LOC: JD.ED 13:04
DX: J06.9 Acute upper respiratory infection, unspecified (principal); K64.9 Unspecified hemorrhoids; E03.9 Hypothyroidism, unspecified; Z20.828 Contact with and (suspected) exposure to other viral communicable diseases; I10 Essential (primary) hypertension; E66.9 Obesity, unspecified; F41.9 Anxiety disorder, unspecified; F32.9 Major depressive disorder, single episode, unspecified; D64.9 Anemia, unspecified; Z68.41 Body mass index [BMI] 40.0-44.9, adult; Z88.8 Allergy status to other drugs, medicaments and biological substances; Z88.6 Allergy status to analgesic agent; Z79.899 Other long term (current) drug therapy
CPT/HCPCS: 36415; 80053; 81001; 83690; 85025; 87635; 96372; 99284; J2270; J2405; U0002

== ENCOUNTER 2020-05-21 06:25 | Emergency (ER) | payer BC ==
[2020-05-21 06:46] VITALS: BP 150/100
[2020-05-21] MEDS ORDERED: HYDROmorphone 1 MG/ML Syringe IM ONE ×4 (07:05→08:18)
--- NOTE | 2020-05-21 07:05 | EDM.PDOC ---
ED HPI GENERAL MEDICAL PROBLEM - General Chief Complaint: Abdominal Pain Stated Complaint: PANCREATITIS Time Seen by Provider: 05/21/20 06:56 Source of Information: Reports: Patient History Limitations: Reports: No Limitations - History of Present Illness INITIAL COMMENTS - FREE TEXT/NARRATIVE: 44-year-old female presents to the ED with uncontrolled left upper quadrant abdominal pain associated with intractable nausea and vomiting of bilious material characteristic of her chronic relapsing pancreatitis which she suffered from for the last 5 years. She has a intrathecal pain stimulator which is not working well to control pain. Apparently next week she is planning to have it changed out to an intrathecal pain pump with morphine. Only not able to keep down any fluids or food. Pain syndrome started last evening and she put up with it throughout most of yesterday but it was not as severe. She has not been able to keep down any medications including her hydrocortisone tablet or cortisol for Eugene's disease. Having increased cramping and steatorrhea. No blood per rectum. No blood in the emesis. Onset: Gradual Onset Date: 05/20/20 (Pain syndrome started yesterday afternoon and evening.) Duration: Hour(s):, Getting Worse Location: Reports: Abdomen (Diffuse left upper quadrant abdominal pain rating through to her back in the infrascapular area. Some epigastric discomfort. Associated with intractable nausea and vomiting) Quality: Reports: Other Severity: Severe (Chronic relapsing pancreatitis) Improves with: Reports: None Worsens with: Reports: None Context: Reports: Other (Phonic relapsing pancreatitis.). Denies: Activity, Exercise, Lifting, Sick Contact, Trauma Associated Symptoms: Reports: Diaphoresis, Loss of Appetite, Malaise, Nausea/Vomiting, Other (Loose steatorrhea stools x6). Denies: Chest Pain, Cough, cough w sputum, Fever/Chills, Headaches, Rash, Seizure, Shortness of Breath (Intractable nausea and vomiting of bilious material.), Syncope Treatments BLOCK SAWYER: Reports: Other (see below) (Nothing will stay down. She increased her pain pump to maximum without any relief.) Left Upper Abdomen Pain Score (Numeric/FACES): 7 - Related Data Allergies Allergy/AdvReac Type Severity Reaction Status Date / Time amylase [From Creon] Allergy Severe Rash Verified 05/21/20 06:47 buprenorphine [From Butrans] Allergy Severe Itching Verified 05/21/20 06:47 lipase [From Creon] Allergy Severe Rash Verified 05/21/20 06:47 metoclopramide HCl Allergy Severe Itching Verified 05/21/20 06:47 [From Reglan] protease [From Creon] Allergy Severe Rash Verified 05/21/20 06:47 ketorolac [From Toradol] AdvReac Severe Bleeding Verified 05/21/20 06:47 NSAIDS (Non-Steroidal AdvReac Severe Abdominal Verified 05/21/20 06:47 Anti-Inflamma Pain prochlorperazine AdvReac Severe Vomiting Verified 05/21/20 06:47 [From Compazine] Home Meds: Home Meds Mirtazapine 30 mg PO BEDTIME 03/14/19 [History] Pantoprazole Sodium [Protonix] 40 mg PO BID 03/14/19 [History] Prazosin HCl [Prazosin] 5 mg PO BEDTIME 03/14/19 [History] Vortioxetine [Trintellix] 10 mg PO DAILY 03/14/19 [History] Ferrous Sulfate [Iron] 650 mg PO BID 05/15/19 [History] QUEtiapine Fumarate [Quetiapine Fumarate] 75 mg PO BEDTIME 05/15/19 [History] Cholecalciferol (Vitamin D3) [Vitamin D3] 1,000 intnl unit PO DAILY 06/28/19 [History] Hydrocortisone [Cortef] 5 mg PO 0600 10/11/19 [History] Hydrocortisone [Cortef] 15 mg PO 1300 10/11/19 [History] Levothyroxine 125 mcg PO ACBREAKFAST 10/11/19 [History] Ondansetron [Zofran ODT] 4 mg PO Q8H PRN #28 tab.dis 03/27/20 [Rx] Past Medical History HEENT History: Reports: Glaucoma, Otitis Media Cardiovascular History: Reports: Hypertension Other Cardiovascular History: tachycardia Gastrointestinal History: Reports: Hemorrhoids Other Gastrointestinal History: LUQ pain, hemorrhoids Genitourinary History: Reports: UTI, Recurrent 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: Other CORPORATE STAFF ACCOUNTANT History: c section x3, tubes tied Musculoskeletal History: Reports: Arthritis, Fracture (left foot) Other Musculoskeletal History: left foot fracture, elbow pain, wrist pain, weakness, falls Neurological History: Reports: Other (See Below) (Pseudotumor cerebri, s/p DENIER CONTROL OPERATOR shunt) Other Neuro History: pseudotumor, shunt, benign pineal brain tumor, memory loss, seizure disorder, vertigo, brain surgery x 16 Psychiatric History: Reports: Addiction (opioids), Anxiety, Depression Endocrine/Metabolic History: Reports: Hypothyroidism, Obesity/BMI 30+, Vitamin D Deficiency, Other (See Below) (Secondary adrenal insufficiency) Other Endocrine/Metabolic History: hyperthyroidism, hypothyroidism, hashimotos, secondary adrenal insufficiency Hematologic History: Reports: Anemia, Iron Deficiency Other Hematologic History: anti TPO antibody Immunologic History: Reports: None Dermatologic History: Reports: Cellulitis - Infectious Disease History Infectious Disease History: Reports: C-Difficile, MRSA Other Infectious Disease History: in 2006, 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." - Past Surgical History Head Surgeries/Procedures: Reports: Shunt (DENIER CONTROL OPERATOR), Other (See Below) (Benign pineal gland excised 2012) HEENT Surgical History: Reports: Oral Surgery ( wisdom teeth extracted) GI Surgical History: Reports: Appendectomy, Bariatric Procedure (laparoscopic gastric sleeve 02/12/2016), Cholecystectomy (06/04/2015), Colonoscopy, EGD, ERCP Female Surgical History: Reports: Section (x 3), Tubal Ligation Neurological Surgical History: Reports: Other (See Below) (Thoracic spine neurostimulator) Social & Family History - Family History Family Medical History: Noncontributory Cardiac: Reports: Bypass, Hypertension, ID Respiratory: Reports: Asthma Oncologic: Reports: Colon - Caffeine Use Caffeine Use: Reports: Coffee, Soda Other Caffeine Use: 1 cup daily - Living Situation & Occupation Living situation: Reports: , with Spouse Occupation: Unemployed ED ROS GENERAL - Review of Systems Review Of Systems: See Below Constitutional: Reports: Malaise, Fatigue, Decreased Appetite. Denies: Fever, Chills HEENT: Reports: No Symptoms Respiratory: Denies: Shortness of Breath, Wheezing, Pleuritic Chest Pain, Cough, Sputum, Hemoptysis, Other Cardiovascular: Reports: No Symptoms Endocrine: Reports: Fatigue GI/Abdominal: Reports: Abdominal Pain (See history of present illness), Diarrhea (Diarrhea diarrhea.), Nausea, Vomiting : Reports: No Symptoms Musculoskeletal: Reports: No Symptoms Skin: Reports: No Symptoms Neurological: Reports: Dizziness, Headache Psychiatric: Reports: Anxiety Hematologic/Lymphatic: Reports: No Symptoms Immunologic: Reports: No Symptoms ED EXAM, GI/ABD - Physical Exam Exam: See Below Exam Limited By: No Limitations General Appearance: Alert, WD/WN, Mild Distress, Other (Temperature is 36.1 heart rate is 99 and sinus respiratory is 18 BP elevated 150/100. O2 sats 98% room air.) Eyes: Bilateral: Normal Appearance Throat/Mouth: Normal Inspection, Normal Lips, Normal Oropharynx Head: Atraumatic, Normocephalic Neck: Normal Inspection, Supple, Non-Tender, Carotid Bruit, Limited Range of Motion, Tender Lateral. No: Full Range of Motion Respiratory/Chest: No Respiratory Distress, Lungs Clear, Normal Breath Sounds, No Accessory Muscle Use Cardiovascular: Normal Peripheral Pulses, Regular Rate, Rhythm, No Edema, No Gallop, No Murmur, No Rub GI/Abdominal Exam: No Organomegaly, No Abnormal Bruit, Pelvis Stable, Guarding (Very tender to touch left upper quadrant that with guarding.), Tender, Abnormal Bowel Sounds (Bowel sounds are fairly quiesced sent.). No: Rigid ( Left upper quadrant of the abdomen), Rebound, Hepatomegaly, Splenomegaly Back Exam: Normal Inspection, Full Range of Motion. No: CVA Tenderness (L), CVA Tenderness (R) Extremities: Normal Inspection, Normal Range of Motion, Non-Tender, No Pedal Edema Neurological: Alert, Oriented, CN II-XII Intact, Normal Cognition Psychiatric: Normal Affect, Normal Mood Skin Exam: Warm, Dry, Intact, Normal Color, No Rash Course - Vital Signs Last Recorded V/S: Last Vital Signs Temp 36.1 C 05/21/20 06:41 Pulse 99 05/21/20 06:41 Resp 18 05/21/20 06:41 BP 150/100 H 05/21/20 06:41 Pulse Ox 98 05/21/20 06:41 - Orders/Labs/Meds Meds: Medications Discontinued Medications Generic Name Dose Route Start Last Admin Trade Name Freq PRN Reason Stop Dose Admin Diphenhydramine HCl 50 mg 05/21/20 07:06 05/21/20 07:25 Benadryl IM 05/21/20 07:07 50 mg ONETIME ONE Administration Hydrocortisone Sodium Succinate 100 mg 05/21/20 07:07 05/21/20 07:26 Solu-Cortef IM 05/21/20 07:08 100 mg ONETIME ONE Administration Hydromorphone HCl 2 mg 05/21/20 07:05 05/21/20 07:25 Dilaudid IM 05/21/20 07:06 2 mg ONETIME ONE Administration Hydromorphone HCl 2 mg 05/21/20 07:51 Dilaudid IVPUSH 05/21/20 07:52 ONETIME ONE Hydromorphone HCl 2 mg 05/21/20 07:53 05/21/20 08:03 Dilaudid IM 05/21/20 07:54 2 mg ONETIME ONE Administration Hydromorphone HCl 2 mg 05/21/20 07:54 05/21/20 07:55 Dilaudid IM 05/21/20 07:55 Not Given ONETIME ONE Hydromorphone HCl 2 mg 05/21/20 08:18 Dilaudid IM 05/21/20 08:19 ONETIME ONE Lorazepam 1 mg 05/21/20 07:51 Ativan IV Q6H PRN Anxiety Lorazepam 1 mg 05/21/20 07:54 Ativan IM 05/21/20 07:55 ONETIME ONE Lorazepam 1 mg 05/21/20 07:56 05/21/20 08:03 Ativan IM 05/21/20 07:57 1 mg ONETIME ONE Administration Promethazine HCl 37 mg 05/21/20 07:06 05/21/20 07:26 Phenergan IM 05/21/20 07:07 37 mg ONETIME ONE Administration - Radiology Interpretation Free Text/Narrative:: 44-year-old female presents once again to the ED with severe left upper quadrant abdominal pain radiaing through to her left back just inferior to the left scapula. Associated intractable nausea and vomiting of bilious material without blood. Diarrhea x6 with steatorrhea. This is characteristic of her chronic relapsing pancreatitis events. She has a pain pump instilled in [place] and initially she felt it was working quite well to help control her pain. More recently does not seem to be as effective. She cranked it up as high as it would go and it gave her no relief overnight. Plan hydrocortisone 100 mg IM. Dilaudid 2 mg IM Phenergan 37.5 mg IM Benadryl 50 mg IM. - Re-Assessments/Exams Free Text/Narrative Re-Assessment/Exam: 05/21/20 07:52 patient reports pain is still 5-6 out of 10 left upper quadrant of the abdomen. Will repeat Dilaudid 2 mg IM with Ativan 1 mg IM. 05/21/20 08:17 patient reports pain is 4 out of 10. Is requesting more analgesia so [place] She is hopefull that she be able to get some sleep Departure - Departure Time of Disposition: 08:21 Disposition: Home, Self-Care 01 Condition: Fair Clinical Impression: Chronic relapsing pancreatitis, Intractable nausea and vomiting - Discharge Information *PRESCRIPTION DRUG MONITORING PROGRAM REVIEWED*: Not Applicable *COPY OF PRESCRIPTION DRUG MONITORING REPORT IN PATIENT ALE: Not Applicable Referrals: Farzaneh Smith MD [Primary Care Provider] - Forms: ED Department Discharge Additional Instructions: Evaluation in the emergency room this morning in regards to recurrence of left upper quadrant abdominal pain rating through to your left back inferior to the shoulder blade. Associated intractable nausea and vomiting and diarrhea with steatorrhea. He was treated with intramuscular injections of Dilaudid 2 mg IV and x2 doses Benadryl 50 mg IM with Phenergan 37.5 mg IM to rest vomiting. Ativan 1 mg IV to facilitate or make the Dilaudid worked better. 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 Sepsis Event Note (ED) - Evaluation Sepsis Screening Result: No Definite Risk - Focused Exam Vital Signs: Vital Signs Temp Pulse Resp BP Pulse Ox 05/21/20 06:41 36.1 C 99 18 150/100 H 98
[2020-05-21] MEDS ORDERED: Promethazine 25 MG/ML SDV IM ONE (07:06)
[2020-05-21] MEDS ORDERED: diphenhydrAMINE 50 MG/ML SDV IM ONE (07:06)
[2020-05-21] MEDS ORDERED: Hydrocortisone Sodium Succinate 100 MG/2 ML SDV IM ONE (07:07)
[2020-05-21] MEDS ORDERED: LORazepam 2 MG/ML SDV IV PRN (07:51)
[2020-05-21] MEDS ORDERED: HYDROmorphone 1 MG/ML Syringe IVPUSH ONE (07:51)
[2020-05-21] MEDS ORDERED: LORazepam 2 MG/ML SDV IM ONE ×2 (07:54→07:56)
[2020-05-21 08:49] VITALS: PULSE 87
== END 2020-05-21 08:42 | disposition home or self-care (01) ==
LOC: JD.ED 06:25
DX: K86.1 Other chronic pancreatitis (principal); R11.2 Nausea with vomiting, unspecified; I10 Essential (primary) hypertension; E03.9 Hypothyroidism, unspecified; F41.9 Anxiety disorder, unspecified; F32.9 Major depressive disorder, single episode, unspecified; E66.9 Obesity, unspecified; Z68.38 Body mass index [BMI] 38.0-38.9, adult; D64.9 Anemia, unspecified; Z88.8 Allergy status to other drugs, medicaments and biological substances; Z88.6 Allergy status to analgesic agent; Z79.899 Other long term (current) drug therapy
CPT/HCPCS: 96372; 99284; J1170; J1200; J1720; J2060; J2550; 99283

== ENCOUNTER 2020-06-09 08:45 | Emergency (ER) | payer BC, OTHER ==
[2020-06-09 09:19] VITALS: BP 187/95; PULSE 96
--- NOTE | 2020-06-09 09:26 | EDM.PDOC ---
ED HPI GENERAL MEDICAL PROBLEM - General Chief Complaint: Abdominal Pain Stated Complaint: PANCREATITIS Time Seen by Provider: 06/09/20 09:25 - History of Present Illness INITIAL COMMENTS - FREE TEXT/NARRATIVE: 44-year-old female returns the emergency room with a flareup of her chronic relapsing pancreatitis. There and concerned about some possible scar tissue affecting the function of her nerve stimulator it was working pretty good there for a while. And there are plans in the works for partial pancreatectomy. The patient is here multiple times with unremarkable work-ups with flares of this she has seen a pancreas specialist in [place] and is being managed for her nerve stimulator by the pain clinic in [place]. The patient was able to keep her hydrocortisone down this morning. She is complaining of nausea and just worsening pain at this point this started last night. Abdomen Pain Score (Numeric/FACES): 8 - Related Data Allergies Allergy/AdvReac Type Severity Reaction Status Date / Time amylase [From Creon] Allergy Severe Rash Verified 06/09/20 09:20 buprenorphine [From Butrans] Allergy Severe Itching Verified 06/09/20 09:20 lipase [From Creon] Allergy Severe Rash Verified 06/09/20 09:20 metoclopramide HCl Allergy Severe Itching Verified 06/09/20 09:20 [From Reglan] protease [From Creon] Allergy Severe Rash Verified 06/09/20 09:20 ketorolac [From Toradol] AdvReac Severe Bleeding Verified 06/09/20 09:20 NSAIDS (Non-Steroidal AdvReac Severe Abdominal Verified 06/09/20 09:20 Anti-Inflamma Pain prochlorperazine AdvReac Severe Vomiting Verified 06/09/20 09:20 [From Compazine] Home Meds: Home Meds Mirtazapine 30 mg PO BEDTIME 03/14/19 [History] Pantoprazole Sodium [Protonix] 40 mg PO BID 03/14/19 [History] Prazosin HCl [Prazosin] 5 mg PO BEDTIME 03/14/19 [History] Vortioxetine [Trintellix] 10 mg PO DAILY 03/14/19 [History] Ferrous Sulfate [Iron] 650 mg PO BID 05/15/19 [History] QUEtiapine Fumarate [Quetiapine Fumarate] 75 mg PO BEDTIME 05/15/19 [History] Cholecalciferol (Vitamin D3) [Vitamin D3] 1,000 intnl unit PO DAILY 06/28/19 [History] Hydrocortisone [Cortef] 5 mg PO 0600 10/11/19 [History] Hydrocortisone [Cortef] 15 mg PO 1300 10/11/19 [History] Levothyroxine 125 mcg PO ACBREAKFAST 10/11/19 [History] Ondansetron [Zofran ODT] 4 mg PO Q8H PRN #28 tab.dis 03/27/20 [Rx] Past Medical History HEENT History: Reports: Glaucoma, Otitis Media Cardiovascular History: Reports: Hypertension Other Cardiovascular History: tachycardia Gastrointestinal History: Reports: Hemorrhoids Other Gastrointestinal History: LUQ pain, hemorrhoids Genitourinary History: Reports: UTI, Recurrent 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: Other INDUSTRIAL ELECTRICAL TECHNICIAN History: c section x3, tubes tied Musculoskeletal History: Reports: Arthritis, Fracture Other Musculoskeletal History: left foot fracture, elbow pain, wrist pain, weakness, falls Neurological History: Reports: Other (See Below) Other Neuro History: pseudotumor, shunt, benign pineal brain tumor, memory loss, seizure disorder, vertigo, brain surgery x 16 Psychiatric History: Reports: Addiction, Anxiety, Depression Endocrine/Metabolic History: Reports: Hypothyroidism, Obesity/BMI 30+, Vitamin D Deficiency, Other (See Below) Other Endocrine/Metabolic History: hyperthyroidism, hypothyroidism, hashimotos, secondary adrenal insufficiency Hematologic History: Reports: Anemia, Iron Deficiency Other Hematologic History: anti TPO antibody Immunologic History: Reports: None Dermatologic History: Reports: Cellulitis - Infectious Disease History Infectious Disease History: Reports: C-Difficile, MRSA Other Infectious Disease History: in 2006, 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." - Past Surgical History Head Surgeries/Procedures: Reports: Shunt, Other (See Below) HEENT Surgical History: Reports: Oral Surgery GI Surgical History: Reports: Appendectomy, Bariatric Procedure, Cholecystectomy, Colonoscopy, EGD, ERCP Female Surgical History: Reports: Section, Tubal Ligation Neurological Surgical History: Reports: Other (See Below) Social & Family History - Family History Family Medical History: Noncontributory Cardiac: Reports: Bypass, Hypertension, [place] Respiratory: Reports: Asthma Oncologic: Reports: Colon - Tobacco Use Smoking Status *Q: Never Smoker Second Hand Smoke Exposure: No - Caffeine Use Caffeine Use: Reports: None Other Caffeine Use: 1 cup daily - Recreational Drug Use Recreational Drug Use: No - Living Situation & Occupation Living situation: Reports: , with Spouse Occupation: Unemployed ED ROS GENERAL - Review of Systems Review Of Systems: See Below Constitutional: Reports: No Symptoms. Denies: Fever, Chills Respiratory: Reports: No Symptoms Cardiovascular: Reports: No Symptoms GI/Abdominal: Reports: Abdominal Pain, Nausea, Vomiting. Denies: Constipation, Diarrhea Musculoskeletal: Reports: No Symptoms Skin: Reports: No Symptoms Psychiatric: Reports: No Symptoms ED EXAM, GI/ABD - Physical Exam Exam: See Below Exam Limited By: No Limitations General Appearance: Alert, No Apparent Distress Head: Atraumatic, Normocephalic Neck: Normal Inspection, Supple, Non-Tender, Full Range of Motion Respiratory/Chest: No Respiratory Distress, Lungs Clear, Normal Breath Sounds Cardiovascular: Regular Rate, Rhythm, No Edema, No Murmur GI/Abdominal Exam: Normal Bowel Sounds, Soft, Other (The patient has some of her typical left upper quadrant discomfort no rigidity rebound or guarding noted no other palpable tenderness appreciated) Course - Vital Signs Last Recorded V/S: Last Vital Signs Temp 36.3 C 06/09/20 09:15 Pulse 96 06/09/20 09:15 Resp 20 06/09/20 09:15 BP 187/95 H 06/09/20 09:15 Pulse Ox 96 06/09/20 09:15 - Orders/Labs/Meds Meds: Medications Discontinued Medications Generic Name Dose Route Start Last Admin Trade Name Dominic PRN Reason Stop Dose Admin Diphenhydramine HCl 50 mg 06/09/20 09:38 06/09/20 10:07 Benadryl IM 06/09/20 09:39 50 mg ONETIME ONE Administration Hydromorphone HCl 2 mg 06/09/20 09:38 06/09/20 10:08 Dilaudid IM 06/09/20 09:39 2 mg ONETIME ONE Administration Ondansetron HCl 8 mg 06/09/20 09:38 06/09/20 10:05 Zofran Odt PO 06/09/20 09:39 8 mg ONETIME ONE Administration - Re-Assessments/Exams Free Text/Narrative Re-Assessment/Exam: 06/09/20 09:49 The patient does not want repeat labs at this point, and this is reasonable given we have lots of normal labs on her with similar complaints, we will go ahead and treat her with what I usually treat her with which usually works just fine for her and anticipate discharge when she is doing better. 06/09/20 11:02 Patient doing much better after her medication and it is my understanding she is already left the department. Departure - Departure Time of Disposition: 11:02 Disposition: Home, Self-Care 01 Clinical Impression: Chronic relapsing pancreatitis - Discharge Information Referrals: Farzaneh Smith MD [Primary Care Provider] - Forms: ED Department Discharge Additional Instructions: Return to the emergency room with any questions problems or worsening symptoms Follow-up with your physicians as scheduled Sepsis Event Note (ED) - Evaluation Sepsis Screening Result: No Definite Risk - Focused Exam Vital Signs: Vital Signs Temp Pulse Resp BP Pulse Ox 06/09/20 09:15 36.3 C 96 20 187/95 H 96
[2020-06-09] MEDS ORDERED: Ondansetron 4 MG Tab.DIS PO ONE (09:38)
[2020-06-09] MEDS ORDERED: HYDROmorphone 1 MG/ML Syringe IM ONE (09:38)
[2020-06-09] MEDS ORDERED: diphenhydrAMINE 50 MG/ML SDV IM ONE (09:38)
== END 2020-06-09 11:00 | disposition home or self-care (01) ==
LOC: JD.ED 08:45
DX: K86.1 Other chronic pancreatitis (principal); I10 Essential (primary) hypertension; E03.9 Hypothyroidism, unspecified; E66.9 Obesity, unspecified; F32.9 Major depressive disorder, single episode, unspecified; F41.9 Anxiety disorder, unspecified; Z68.39 Body mass index [BMI] 39.0-39.9, adult; Z88.8 Allergy status to other drugs, medicaments and biological substances; Z88.6 Allergy status to analgesic agent
CPT/HCPCS: 96372; 99283; A9270; J1170; J1200; 99282

== ENCOUNTER 2020-06-14 14:29 | Emergency (ER) | payer BC ==
--- NOTE | 2020-06-14 15:19 | EDM.PDOC ---
ED HPI GENERAL MEDICAL PROBLEM - General Chief Complaint: Abdominal Pain Stated Complaint: ABDOMINAL PAIN Time Seen by Provider: 06/14/20 15:18 - History of Present Illness INITIAL COMMENTS - FREE TEXT/NARRATIVE: 44-year-old female presents the emergency room with her typical abdominal pain. Patient had a CAT scan done in [place] on Thursday that showed that indeed she is getting needed partial pancreatectomy. They are in the process try to get this scheduled. The patient is quite nauseated but has been able to keep her medications down today including her hydrocortisone. The patient denies any fevers or chills. No diarrhea no constipation Left Upper Abdomen Pain Score (Numeric/FACES): 8 - Related Data Allergies Allergy/AdvReac Type Severity Reaction Status Date / Time amylase [From Creon] Allergy Severe Rash Verified 06/09/20 09:20 buprenorphine [From Butrans] Allergy Severe Itching Verified 06/09/20 09:20 lipase [From Creon] Allergy Severe Rash Verified 06/09/20 09:20 metoclopramide HCl Allergy Severe Itching Verified 06/09/20 09:20 [From Reglan] protease [From Creon] Allergy Severe Rash Verified 06/09/20 09:20 ketorolac [From Toradol] AdvReac Severe Bleeding Verified 06/09/20 09:20 NSAIDS (Non-Steroidal AdvReac Severe Abdominal Verified 06/09/20 09:20 Anti-Inflamma Pain prochlorperazine AdvReac Severe Vomiting Verified 06/09/20 09:20 [From Compazine] Home Meds: Home Meds Mirtazapine 30 mg PO BEDTIME 03/14/19 [History] Pantoprazole Sodium [Protonix] 40 mg PO BID 03/14/19 [History] Prazosin HCl [Prazosin] 5 mg PO BEDTIME 03/14/19 [History] Vortioxetine [Trintellix] 10 mg PO DAILY 03/14/19 [History] Ferrous Sulfate [Iron] 650 mg PO BID 05/15/19 [History] QUEtiapine Fumarate [Quetiapine Fumarate] 75 mg PO BEDTIME 05/15/19 [History] Cholecalciferol (Vitamin D3) [Vitamin D3] 1,000 intnl unit PO DAILY 06/28/19 [History] Hydrocortisone [Cortef] 5 mg PO 0600 10/11/19 [History] Hydrocortisone [Cortef] 15 mg PO 1300 10/11/19 [History] Levothyroxine 125 mcg PO ACBREAKFAST 10/11/19 [History] Ondansetron [Zofran ODT] 4 mg PO Q8H PRN #28 tab.dis 03/27/20 [Rx] Past Medical History HEENT History: Reports: Glaucoma, Otitis Media Cardiovascular History: Reports: Hypertension Other Cardiovascular History: tachycardia Gastrointestinal History: Reports: Hemorrhoids Other Gastrointestinal History: LUQ pain, hemorrhoids Genitourinary History: Reports: UTI, Recurrent 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: c section x3, tubes tied Musculoskeletal History: Reports: Arthritis, Fracture Other Musculoskeletal History: left foot fracture, elbow pain, wrist pain, weakness, falls Neurological History: Reports: Other (See Below) Other Neuro History: pseudotumor, shunt, benign pineal brain tumor, memory loss, seizure disorder, vertigo, brain surgery x 16 Psychiatric History: Reports: Addiction, Anxiety, Depression Endocrine/Metabolic History: Reports: Hypothyroidism, Obesity/BMI 30+, Vitamin D Deficiency, Other (See Below) Other Endocrine/Metabolic History: hyperthyroidism, hypothyroidism, hashimotos, secondary adrenal insufficiency Hematologic History: Reports: Anemia, Iron Deficiency Other Hematologic History: anti TPO antibody Immunologic History: Reports: None Dermatologic History: Reports: Cellulitis - Infectious Disease History Infectious Disease History: Reports: C-Difficile, MRSA Other Infectious Disease History: in 2006, 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." - Past Surgical History Head Surgeries/Procedures: Reports: Shunt, Other (See Below) HEENT Surgical History: Reports: Oral Surgery GI Surgical History: Reports: Appendectomy, Bariatric Procedure, Cholecystectomy, Colonoscopy, EGD, ERCP Female Surgical History: Reports: Section, Tubal Ligation Neurological Surgical History: Reports: Other (See Below) Social & Family History - Family History Family Medical History: Noncontributory Cardiac: Reports: Bypass, Hypertension, [place] Respiratory: Reports: Asthma Oncologic: Reports: Colon - Tobacco Use Smoking Status *Q: Never Smoker - Caffeine Use Caffeine Use: Reports: None Other Caffeine Use: 1 cup daily - Living Situation & Occupation Living situation: Reports: , with Spouse Occupation: Unemployed ED ROS GENERAL - Review of Systems Review Of Systems: See Below Constitutional: Reports: No Symptoms HEENT: Reports: No Symptoms Respiratory: Reports: No Symptoms Cardiovascular: Reports: No Symptoms GI/Abdominal: Reports: Abdominal Pain, Nausea. Denies: Constipation, Diarrhea, Vomiting : Reports: No Symptoms ED EXAM, GI/ABD - Physical Exam Exam: See Below Exam Limited By: No Limitations General Appearance: Alert, No Apparent Distress Head: Atraumatic, Normocephalic Neck: Normal Inspection, Supple, Non-Tender, Full Range of Motion. No: Lymphadenopathy (L), Lymphadenopathy (R) Respiratory/Chest: No Respiratory Distress, Lungs Clear, Normal Breath Sounds Cardiovascular: Regular Rate, Rhythm, No Edema, No Murmur GI/Abdominal Exam: Soft, Other (Left upper quadrant discomfort. She is got a small amount of left lower quadrant discomfort to. No rigidity rebound or guarding) Back Exam: Normal Inspection, Full Range of Motion. No: CVA Tenderness (L), CVA Tenderness (R) Extremities: Normal Inspection, No Pedal Edema Neurological: Alert, Normal Cognition Course - Vital Signs Last Recorded V/S: Last Vital Signs Temp 36.4 C 06/14/20 14:57 Pulse 91 06/14/20 14:57 Resp 20 06/14/20 14:57 BP 129/91 H 06/14/20 14:57 Pulse Ox 99 06/14/20 14:57 - Orders/Labs/Meds Meds: Medications Discontinued Medications Generic Name Dose Route Start Last Admin Trade Name Dominic PRN Reason Stop Dose Admin Diphenhydramine HCl 25 mg 06/14/20 15:34 06/14/20 15:42 Benadryl IM 06/14/20 15:35 25 mg ONETIME ONE Administration Hydromorphone HCl 2 mg 06/14/20 15:34 06/14/20 15:43 Dilaudid IM 06/14/20 15:35 2 mg ONETIME ONE Administration Promethazine HCl 25 mg 06/14/20 15:34 06/14/20 15:42 Phenergan IM 06/14/20 15:35 25 mg ONETIME ONE Administration - Re-Assessments/Exams Free Text/Narrative Re-Assessment/Exam: 06/14/20 15:47 Discussed checking labs, patient would rather hold off on these at this point as we have checked multiple times and they are always normal and she knows what is going on. 06/14/20 16:07 She is much better and would like to go home Departure - Departure Time of Disposition: 16:07 Disposition: Home, Self-Care 01 Clinical Impression: Chronic relapsing pancreatitis - Discharge Information Referrals: Farzaneh Smith MD [Primary Care Provider] - Forms: ED Department Discharge Additional Instructions: Return to the emergency room with any questions problems or worsening symptoms. Follow-up with your specialist and your regular physician as scheduled. Sepsis Event Note (ED) - Evaluation Sepsis Screening Result: No Definite Risk - Focused Exam Vital Signs: Vital Signs Temp Pulse Resp BP Pulse Ox 06/14/20 14:57 36.4 C 91 20 129/91 H 99
[2020-06-14] MEDS ORDERED: diphenhydrAMINE 50 MG/ML SDV IM ONE (15:34)
[2020-06-14] MEDS ORDERED: Promethazine 25 MG/ML SDV IM ONE (15:34)
[2020-06-14] MEDS ORDERED: HYDROmorphone 1 MG/ML Syringe IM ONE (15:34)
[2020-06-14 17:22] VITALS: BP 137/92; PULSE 86
== END 2020-06-14 16:23 | disposition home or self-care (01) ==
LOC: JD.ED 14:29
DX: K86.1 Other chronic pancreatitis (principal); I10 Essential (primary) hypertension; F32.9 Major depressive disorder, single episode, unspecified; F41.9 Anxiety disorder, unspecified; E03.9 Hypothyroidism, unspecified; E66.9 Obesity, unspecified; Z68.39 Body mass index [BMI] 39.0-39.9, adult; Z91.09 Other allergy status, other than to drugs and biological substances; Z88.6 Allergy status to analgesic agent; Z88.8 Allergy status to other drugs, medicaments and biological substances; Z79.899 Other long term (current) drug therapy
CPT/HCPCS: 96372; 99284; J1170; J1200; J2550; 99283

== ENCOUNTER 2020-06-15 09:05 | Emergency (ER) | payer BC ==
[2020-06-15 09:27] VITALS: BP 114/61; PULSE 84
--- NOTE | 2020-06-15 09:31 | EDM.PDOC ---
ED HPI GENERAL MEDICAL PROBLEM - General Chief Complaint: General Stated Complaint: HEAD PAIN Time Seen by Provider: 06/15/20 09:30 - History of Present Illness INITIAL COMMENTS - FREE TEXT/NARRATIVE: 44-year-old female presents the emergency room with a headache. Patient had a shunt placed about 5 years ago for pseudotumor. She is not having symptoms other than the pain at this time no weakness numbness no dizziness. Patient has not had any fevers or chills. After the shunt was placed patient has done fairly well. Patient denies any other complaints at this time. Patient does not have significant vomiting at this time she was able to keep her morning medications including her hydrocortisone down. Right Head Pain Score (Numeric/FACES): 9 - Related Data Allergies Allergy/AdvReac Type Severity Reaction Status Date / Time amylase [From Creon] Allergy Severe Rash Verified 06/15/20 09:27 buprenorphine [From Butrans] Allergy Severe Itching Verified 06/15/20 09:27 lipase [From Creon] Allergy Severe Rash Verified 06/15/20 09:27 metoclopramide HCl Allergy Severe Itching Verified 06/15/20 09:27 [From Reglan] protease [From Creon] Allergy Severe Rash Verified 06/15/20 09:27 ketorolac [From Toradol] AdvReac Severe Bleeding Verified 06/15/20 09:27 NSAIDS (Non-Steroidal AdvReac Severe Abdominal Verified 06/15/20 09:27 Anti-Inflamma Pain prochlorperazine AdvReac Severe Vomiting Verified 06/15/20 09:27 [From Compazine] Home Meds: Home Meds Mirtazapine 30 mg PO BEDTIME 03/14/19 [History] Pantoprazole Sodium [Protonix] 40 mg PO BID 03/14/19 [History] Prazosin HCl [Prazosin] 5 mg PO BEDTIME 03/14/19 [History] Vortioxetine [Trintellix] 10 mg PO DAILY 03/14/19 [History] Ferrous Sulfate [Iron] 650 mg PO BID 05/15/19 [History] QUEtiapine Fumarate [Quetiapine Fumarate] 75 mg PO BEDTIME 05/15/19 [History] Cholecalciferol (Vitamin D3) [Vitamin D3] 1,000 intnl unit PO DAILY 06/28/19 [History] Hydrocortisone [Cortef] 5 mg PO 0600 10/11/19 [History] Hydrocortisone [Cortef] 15 mg PO 1300 10/11/19 [History] Levothyroxine 125 mcg PO ACBREAKFAST 10/11/19 [History] Ondansetron [Zofran ODT] 4 mg PO Q8H PRN #28 tab.dis 03/27/20 [Rx] Past Medical History HEENT History: Reports: Glaucoma, Otitis Media Cardiovascular History: Reports: Hypertension Other Cardiovascular History: tachycardia Gastrointestinal History: Reports: Hemorrhoids Other Gastrointestinal History: LUQ pain, hemorrhoids Genitourinary History: Reports: UTI, Recurrent 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: c section x3, tubes tied Musculoskeletal History: Reports: Arthritis, Fracture Other Musculoskeletal History: left foot fracture, elbow pain, wrist pain, weakness, falls Neurological History: Reports: Other (See Below) Other Neuro History: pseudotumor, shunt, benign pineal brain tumor, memory loss, seizure disorder, vertigo, brain surgery x 16 Psychiatric History: Reports: Addiction, Anxiety, Depression Endocrine/Metabolic History: Reports: Hypothyroidism, Obesity/BMI 30+, Vitamin D Deficiency, Other (See Below) Other Endocrine/Metabolic History: hyperthyroidism, hypothyroidism, hashimotos, secondary adrenal insufficiency Hematologic History: Reports: Anemia, Iron Deficiency Other Hematologic History: anti TPO antibody Immunologic History: Reports: None Dermatologic History: Reports: Cellulitis - Infectious Disease History Infectious Disease History: Reports: C-Difficile, MRSA Other Infectious Disease History: in 2006, 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." - Past Surgical History Head Surgeries/Procedures: Reports: Shunt, Other (See Below) HEENT Surgical History: Reports: Oral Surgery GI Surgical History: Reports: Appendectomy, Bariatric Procedure, Cholecystectomy, Colonoscopy, EGD, ERCP Female Surgical History: Reports: Section, Tubal Ligation Neurological Surgical History: Reports: Other (See Below) Social & Family History - Family History Family Medical History: Noncontributory Cardiac: Reports: Bypass, Hypertension, [place] Respiratory: Reports: Asthma Oncologic: Reports: Colon - Caffeine Use Caffeine Use: Reports: None Other Caffeine Use: 1 cup daily - Living Situation & Occupation Living situation: Reports: , with Spouse Occupation: Unemployed ED ROS GENERAL - Review of Systems Review Of Systems: See Below Constitutional: Reports: No Symptoms HEENT: Reports: No Symptoms Respiratory: Reports: No Symptoms Cardiovascular: Reports: No Symptoms GI/Abdominal: Reports: No Symptoms : Reports: No Symptoms Neurological: Reports: Headache. Denies: Confusion, Dizziness, Seizure, Syncope Psychiatric: Reports: No Symptoms ED EXAM, GENERAL - Physical Exam Exam: See Below Exam Limited By: No Limitations General Appearance: Alert, No Apparent Distress Eye Exam: Bilateral Eye: Normal Inspection, PERRL Ears: Normal External Exam, Normal Canal, Hearing Grossly Normal, Normal TMs Nose: Normal Inspection, Normal Mucosa, No Blood Throat/Mouth: Normal Inspection, Normal Lips, Normal Teeth, Normal Gums, Normal Oropharynx, Normal Voice, No Airway Compromise Head: Atraumatic, Normocephalic Neck: Normal Inspection, Supple, Non-Tender, Full Range of Motion. No: Lymphadenopathy (L), Lymphadenopathy (R) Respiratory/Chest: No Respiratory Distress, Lungs Clear, Normal Breath Sounds Cardiovascular: Regular Rate, Rhythm, No Edema, No Murmur Course - Vital Signs Last Recorded V/S: Last Vital Signs Temp 37.0 C 06/15/20 09:21 Pulse 84 06/15/20 09:21 Resp 16 06/15/20 09:21 BP 114/61 06/15/20 09:21 Pulse Ox 98 06/15/20 09:21 - Orders/Labs/Meds Meds: Medications Discontinued Medications Generic Name Dose Route Start Last Admin Trade Name Dominic PRVee Reason Stop Dose Admin Diphenhydramine HCl 25 mg 06/15/20 10:13 06/15/20 10:28 Benadryl IM 06/15/20 10:14 25 mg ONETIME ONE Administration Hydromorphone HCl 2 mg 06/15/20 10:13 06/15/20 10:28 Dilaudid IM 06/15/20 10:14 2 mg ONETIME ONE Administration Ondansetron HCl 4 mg 06/15/20 10:13 06/15/20 10:29 Zofran Odt PO 06/15/20 10:14 4 mg ONETIME ONE Administration - Re-Assessments/Exams Free Text/Narrative Re-Assessment/Exam: 06/15/20 12:14 Discussed the situation with radiology and unfortunately we cannot do a shunt series here however radiology did recommend just doing a unenhanced head to look at the ventricles. This was done and does not show any acute changes. Ventricle size is normal and stable compared with previous CT studies. Then she is got a mild amount of encephalomalacia along the shunt path which appears stable as well. Patient received 2 mg of Dilaudid 25 mg of Benadryl 4 mg Zofran the Zofran was p.o. the other 2 IM. She is doing much better at this time I recommended the patient get a shunt series and she has to go to [place] for this but the patient is doing so good at this time she would rather wait till this evening and see how she does. She agrees to go to [place] for further evaluation if she does not have resolution of symptoms. Departure - Departure Time of Disposition: 12:15 Disposition: Home, Self-Care 01 Clinical Impression: Cephalgia - Discharge Information Referrals: Farzaneh Smith MD [Primary Care Provider] - Forms: ED Department Discharge Additional Instructions: Return to the emergency room with any questions problems or worsening symptoms. Follow-up in [place] with your neurosurgeon. If your headache does not resolve go to [place] where they can do a shunt series. Sepsis Event Note (ED) - Evaluation Sepsis Screening Result: No Definite Risk - Focused Exam Vital Signs: Vital Signs Temp Pulse Resp BP Pulse Ox 06/15/20 09:21 37.0 C 84 16 114/61 98
[2020-06-15] MEDS ORDERED: diphenhydrAMINE 50 MG/ML SDV IM ONE (10:13)
[2020-06-15] MEDS ORDERED: HYDROmorphone 1 MG/ML Syringe IM ONE (10:13)
[2020-06-15] MEDS ORDERED: Ondansetron 4 MG Tab.DIS PO ONE (10:13)
--- NOTE | 2020-06-15 11:10 | CT ---
Head CT Technique: Multiple axial sections through the brain were obtained. Intravenous contrast was not utilized. Comparison: Prior head CT study of 02/03/19. Findings: Suboccipital craniotomy is noted. Ventricular size is normal and unchanged from prior head CT. Interventricular shunt is noted. No abnormal parenchymal densities are seen other than slight encephalomalacia along the shunt path. No evidence of intracranial hemorrhage. No midline shift or mass-effect is seen. No acute calvarial finding is seen. Mild hyperostosis interna frontalis is noted. Mastoid sinuses and visualized paranasal sinuses show nothing acute. Impression: 1. Ventricular size is normal and stable from previous head CT study. 2. Slight encephalomalacia along the shunt path which is stable. 3. No acute intracranial abnormality is appreciated. Diagnostic code #2 This report was dictated in [employer]
== END 2020-06-15 12:34 | disposition home or self-care (01) ==
LOC: JD.ED 09:05
DX: R51 Headache (principal); I10 Essential (primary) hypertension; F32.9 Major depressive disorder, single episode, unspecified; Z88.6 Allergy status to analgesic agent; Z88.8 Allergy status to other drugs, medicaments and biological substances; Z79.899 Other long term (current) drug therapy; M19.90 Unspecified osteoarthritis, unspecified site; F41.9 Anxiety disorder, unspecified; Z68.39 Body mass index [BMI] 39.0-39.9, adult; E66.9 Obesity, unspecified; Z90.49 Acquired absence of other specified parts of digestive tract; Z90.89 Acquired absence of other organs
CPT/HCPCS: 70450; 96372; 99284; A9270; J1170; J1200; 99282

== ENCOUNTER 2020-07-07 09:21 | Emergency (ER) | payer BC ==
[2020-07-07 09:32] VITALS: BP 161/105; PULSE 98
[2020-07-07] MEDS ORDERED: HYDROmorphone 1 MG/ML Syringe IM ONE (10:02)
[2020-07-07] MEDS ORDERED: Promethazine 25 MG/ML SDV IM ONE (10:02)
--- NOTE | 2020-07-07 10:29 | EDM.PDOC ---
ED HPI GENERAL MEDICAL PROBLEM - General Chief Complaint: Abdominal Pain Stated Complaint: PANCREATITIS Time Seen by Provider: 07/07/20 09:47 Source of Information: Reports: Patient, RN Notes Reviewed - History of Present Illness INITIAL COMMENTS - FREE TEXT/NARRATIVE: 44 yr female with abd pain LUQ. Worse than usual yesterday and today with some nausea and vomiting. Hx chronic pancreatitis. No fever or chills. No chest pain or difficulty breathing. Left Upper Abdomen Pain Score (Numeric/FACES): 9 - Related Data Allergies Allergy/AdvReac Type Severity Reaction Status Date / Time amylase [From Creon] Allergy Severe Rash Verified 06/15/20 09:27 buprenorphine [From Butrans] Allergy Severe Itching Verified 06/15/20 09:27 lipase [From Creon] Allergy Severe Rash Verified 06/15/20 09:27 metoclopramide HCl Allergy Severe Itching Verified 06/15/20 09:27 [From Reglan] protease [From Creon] Allergy Severe Rash Verified 06/15/20 09:27 ketorolac [From Toradol] AdvReac Severe Bleeding Verified 06/15/20 09:27 NSAIDS (Non-Steroidal AdvReac Severe Abdominal Verified 06/15/20 09:27 Anti-Inflamma Pain prochlorperazine AdvReac Severe Vomiting Verified 06/15/20 09:27 [From Compazine] Home Meds: Home Meds Mirtazapine 30 mg PO BEDTIME 03/14/19 [History] Pantoprazole Sodium [Protonix] 40 mg PO BID 03/14/19 [History] Prazosin HCl [Prazosin] 5 mg PO BEDTIME 03/14/19 [History] Vortioxetine [Trintellix] 10 mg PO DAILY 03/14/19 [History] Ferrous Sulfate [Iron] 650 mg PO BID 05/15/19 [History] QUEtiapine Fumarate [Quetiapine Fumarate] 75 mg PO BEDTIME 05/15/19 [History] Cholecalciferol (Vitamin D3) [Vitamin D3] 1,000 intnl unit PO DAILY 06/28/19 [History] Hydrocortisone [Cortef] 5 mg PO 0600 10/11/19 [History] Hydrocortisone [Cortef] 15 mg PO 1300 10/11/19 [History] Levothyroxine 125 mcg PO ACBREAKFAST 10/11/19 [History] Ondansetron [Zofran ODT] 4 mg PO Q8H PRN #28 tab.dis 03/27/20 [Rx] Past Medical History HEENT History: Reports: Glaucoma, Otitis Media Cardiovascular History: Reports: Hypertension Other Cardiovascular History: tachycardia Gastrointestinal History: Reports: Hemorrhoids Other Gastrointestinal History: LUQ pain, hemorrhoids Genitourinary History: Reports: UTI, Recurrent 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: c section x3, tubes tied Musculoskeletal History: Reports: Arthritis, Fracture Other Musculoskeletal History: left foot fracture, elbow pain, wrist pain, weakness, falls Neurological History: Reports: Other (See Below) Other Neuro History: pseudotumor, shunt, benign pineal brain tumor, memory loss, seizure disorder, vertigo, brain surgery x 16 Psychiatric History: Reports: Addiction, Anxiety, Depression Endocrine/Metabolic History: Reports: Hypothyroidism, Obesity/BMI 30+, Vitamin D Deficiency, Other (See Below) Other Endocrine/Metabolic History: hyperthyroidism, hypothyroidism, hashimotos, secondary adrenal insufficiency Hematologic History: Reports: Anemia, Iron Deficiency Other Hematologic History: anti TPO antibody Immunologic History: Reports: None Dermatologic History: Reports: Cellulitis - Infectious Disease History Infectious Disease History: Reports: C-Difficile, MRSA Other Infectious Disease History: in 2006, 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." - Past Surgical History Head Surgeries/Procedures: Reports: Shunt, Other (See Below) HEENT Surgical History: Reports: Oral Surgery GI Surgical History: Reports: Appendectomy, Bariatric Procedure, Cholecyst ectomy, Colonoscopy, EGD, ERCP Female Surgical History: Reports: Section, Tubal Ligation Neurological Surgical History: Reports: Other (See Below) Social & Family History - Family History Family Medical History: Noncontributory Cardiac: Reports: Bypass, Hypertension, [place] Respiratory: Reports: Asthma Oncologic: Reports: Colon - Tobacco Use Smoking Status *Q: Never Smoker - Caffeine Use Caffeine Use: Reports: None Other Caffeine Use: 1 cup daily - Living Situation & Occupation Living situation: Reports: , with Spouse Occupation: Unemployed ED ROS GENERAL - Review of Systems Review Of Systems: See Below Constitutional: Denies: Fever, Chills, Diaphoresis HEENT: Reports: No Symptoms Respiratory: Denies: Shortness of Breath, Cough Cardiovascular: Denies: Chest Pain GI/Abdominal: Reports: Abdominal Pain, Nausea, Vomiting Musculoskeletal: Reports: Back Pain Skin: Reports: No Symptoms Neurological: Reports: No Symptoms ED EXAM, GI/ABD - Physical Exam Exam: See Below General Appearance: Alert, Moderate Distress Head: Atraumatic Neck: Supple Respiratory/Chest: No Respiratory Distress, Lungs Clear, Normal Breath Sounds Cardiovascular: Regular Rate, Rhythm GI/Abdominal Exam: Tender (L upper abd, remaind of abd nontender). No: Guarding, Rebound Extremities: Normal Inspection, Normal Range of Motion Neurological: Alert, Oriented, No Motor/Sensory Deficits Skin Exam: Warm, Dry, Normal Color Course - Vital Signs Last Recorded V/S: Last Vital Signs Temp 97.7 F 07/07/20 09:30 Pulse 98 07/07/20 09:30 Resp 18 07/07/20 09:30 BP 161/105 H 07/07/20 09:30 Pulse Ox 99 07/07/20 09:30 - Orders/Labs/Meds Meds: Medications Discontinued Medications Generic Name Dose Route Start Last Admin Trade Name Freq PRN Reason Stop Dose Admin Hydromorphone HCl 2 mg 07/07/20 10:02 07/07/20 10:18 Dilaudid IM 07/07/20 10:03 2 mg ONETIME ONE Administration Promethazine HCl 37.5 mg 07/07/20 10:02 07/07/20 10:17 Phenergan IM 07/07/20 10:03 37.5 mg ONETIME ONE Administration Departure - Departure Time of Disposition: 10:27 Disposition: Home, Self-Care 01 Condition: Fair Clinical Impression: Abdominal pain Qualifiers: Abdominal location: upper abdomen, unspecified Qualified Code(s): R10.10 - Upper abdominal pain, unspecified - Discharge Information Referrals: Farzaneh Smith MD [Primary Care Provider] - Forms: ED Department Discharge Additional Instructions: Clear liquids and careful bland diet as tolerated. Continue current meds. No driving today. Follow up clinic as needed. Sepsis Event Note (ED) - Evaluation Sepsis Screening Result: No Definite Risk - Focused Exam Vital Signs: Vital Signs Temp Pulse Resp BP Pulse Ox 07/07/20 09:30 97.7 F 98 18 161/105 H 99
== END 2020-07-07 10:34 | disposition home or self-care (01) ==
LOC: JD.ED 09:21
DX: R10.12 Left upper quadrant pain (principal); I10 Essential (primary) hypertension; D50.9 Iron deficiency anemia, unspecified; F32.9 Major depressive disorder, single episode, unspecified; F41.9 Anxiety disorder, unspecified; E66.9 Obesity, unspecified; Z68.38 Body mass index [BMI] 38.0-38.9, adult; Z90.49 Acquired absence of other specified parts of digestive tract; Z98.84 Bariatric surgery status; Z98.890 Other specified postprocedural states; Z88.8 Allergy status to other drugs, medicaments and biological substances; Z88.6 Allergy status to analgesic agent; Z79.899 Other long term (current) drug therapy
CPT/HCPCS: 96372; 99283; J1170; J2550

== ENCOUNTER 2020-07-11 13:38 | Emergency (ER) | payer BC ==
[2020-07-11 13:53] VITALS: BP 153/90; PULSE 90
[2020-07-11] MEDS ORDERED: HYDROmorphone 1 MG/ML Syringe IM ONE (14:23)
[2020-07-11] MEDS ORDERED: Promethazine 25 MG/ML SDV IM ONE (14:23)
--- NOTE | 2020-07-11 14:38 | EDM.PDOC ---
ED HPI GENERAL MEDICAL PROBLEM - General Chief Complaint: Abdominal Pain Stated Complaint: ABDOMINAL PAIN Time Seen by Provider: 07/11/20 13:50 Source of Information: Reports: Patient History Limitations: Reports: No Limitations - History of Present Illness INITIAL COMMENTS - FREE TEXT/NARRATIVE: The patient presents with left upper abdominal pain, nausea and vomiting. 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 She has a nerve stimulator that helps some. She woke up early this morning and had severe pain, nausea and vomiting. Onset: Gradual Duration: Hour(s): Location: Reports: Abdomen Quality: Reports: Sharp Severity: Severe Improves with: Reports: None Worsens with: Reports: None Associated Symptoms: Reports: Nausea/Vomiting. Denies: Chest Pain, Cough, Fever/Chills, Headaches, Shortness of Breath Left Abdomen Pain Score (Numeric/FACES): 9 - Related Data Allergies Allergy/AdvReac Type Severity Reaction Status Date / Time amylase [From Creon] Allergy Severe Rash Verified 07/11/20 13:53 buprenorphine [From Butrans] Allergy Severe Itching Verified 07/11/20 13:53 lipase [From Creon] Allergy Severe Rash Verified 07/11/20 13:53 metoclopramide HCl Allergy Severe Itching Verified 07/11/20 13:53 [From Reglan] protease [From Creon] Allergy Severe Rash Verified 07/11/20 13:53 ketorolac [From Toradol] AdvReac Severe Bleeding Verified 07/11/20 13:53 NSAIDS (Non-Steroidal AdvReac Severe Abdominal Verified 07/11/20 13:53 Anti-Inflamma Pain prochlorperazine AdvReac Severe Vomiting Verified 07/11/20 13:53 [From Compazine] Home Meds: Home Meds Mirtazapine 30 mg PO BEDTIME 03/14/19 [History] Pantoprazole Sodium [Protonix] 40 mg PO BID 03/14/19 [History] Prazosin HCl [Prazosin] 5 mg PO BEDTIME 03/14/19 [History] Vortioxetine [Trintellix] 10 mg PO DAILY 03/14/19 [History] Ferrous Sulfate [Iron] 650 mg PO BID 05/15/19 [History] QUEtiapine Fumarate [Quetiapine Fumarate] 75 mg PO BEDTIME 05/15/19 [History] Cholecalciferol (Vitamin D3) [Vitamin D3] 1,000 intnl unit PO DAILY 06/28/19 [History] Hydrocortisone [Cortef] 5 mg PO 0600 10/11/19 [History] Hydrocortisone [Cortef] 15 mg PO 1300 10/11/19 [History] Levothyroxine 125 mcg PO ACBREAKFAST 10/11/19 [History] Ondansetron [Zofran ODT] 4 mg PO Q8H PRN #28 tab.dis 03/27/20 [Rx] Past Medical History HEENT History: Reports: Glaucoma, Otitis Media Cardiovascular History: Reports: Hypertension Other Cardiovascular History: tachycardia Gastrointestinal History: Reports: Hemorrhoids Other Gastrointestinal History: LUQ pain, hemorrhoids Genitourinary History: Reports: UTI, Recurrent MANAGER AGENCY History: Reports: Other MANAGER AGENCY History: c section x3, tubes tied Musculoskeletal History: Reports: Arthritis, Fracture Other Musculoskeletal History: left foot fracture, elbow pain, wrist pain, weakness, falls Neurological History: Reports: Other (See Below) Other Neuro History: pseudotumor, shunt, benign pineal brain tumor, memory loss, seizure disorder, vertigo, brain surgery x 16 Psychiatric History: Reports: Addiction, Anxiety, Depression Endocrine/Metabolic History: Reports: Hypothyroidism, Obesity/BMI 30+, Vitamin D Deficiency, Other (See Below) Other Endocrine/Metabolic History: hyperthyroidism, hypothyroidism, hashimotos, secondary adrenal insufficiency Hematologic History: Reports: Anemia, Iron Deficiency Other Hematologic History: anti TPO antibody Immunologic History: Reports: None Dermatologic History: Reports: Cellulitis - Infectious Disease History Infectious Disease History: Reports: None Other Infectious Disease History: in 2006, 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." - Past Surgical History Head Surgeries/Procedures: Reports: Shunt, Other (See Below) HEENT Surgical History: Reports: Oral Surgery GI Surgical History: Reports: Appendectomy, Bariatric Procedure, Aleksandra cystectomy, Colonoscopy, EGD, ERCP Female Surgical History: Reports: Section, Tubal Ligation Neurological Surgical History: Reports: Other (See Below) Social & Family History - Family History Family Medical History: Noncontributory Cardiac: Reports: Bypass, Hypertension, [place] Respiratory: Reports: Asthma Oncologic: Reports: Colon - Tobacco Use Smoking Status *Q: Never Smoker - Caffeine Use Caffeine Use: Reports: None Other Caffeine Use: 1 cup daily - Recreational Drug Use Recreational Drug Use: No - Living Situation & Occupation Living situation: Reports: , with Spouse Occupation: Unemployed ED ROS GENERAL - Review of Systems Review Of Systems: See Below Constitutional: Reports: No Symptoms HEENT: Reports: No Symptoms Respiratory: Reports: No Symptoms Cardiovascular: Reports: No Symptoms Endocrine: Reports: No Symptoms GI/Abdominal: Reports: Abdominal Pain, Nausea, Vomiting : Reports: No Symptoms Musculoskeletal: Reports: No Symptoms ED EXAM, GI/ABD - Physical Exam Exam: See Below Exam Limited By: No Limitations General Appearance: Alert, No Apparent Distress Ears: Normal External Exam Nose: Normal Inspection Head: Atraumatic, Normocephalic Neck: Normal Inspection Respiratory/Chest: No Respiratory Distress, Lungs Clear, Normal Breath Sounds Cardiovascular: Regular Rate, Rhythm, No Edema, No Murmur GI/Abdominal Exam: Soft, No Organomegaly, No Mass, Tender (Moderate tenderness to the left upper quadrant) Course - Vital Signs Last Recorded V/S: Last Vital Signs Temp 98.1 F 07/11/20 13:50 Pulse 90 07/11/20 13:50 Resp 16 07/11/20 13:50 BP 153/90 H 07/11/20 13:50 Pulse Ox 100 07/11/20 13:50 - Orders/Labs/Meds Meds: Medications Discontinued Medications Generic Name Dose Route Start Last Admin Trade Name Freq PRN Reason Stop Dose Admin Hydromorphone HCl 1 mg 07/11/20 14:23 Dilaudid IM 07/11/20 14:24 ONETIME ONE Promethazine HCl 25 mg 07/11/20 14:23 Phenergan IM 07/11/20 14:24 ONETIME ONE - Re-Assessments/Exams Free Text/Narrative Re-Assessment/Exam: 07/11/20 14:37 I have ordered a shot of dilaudid 1mg IM and phenergan 25mg IM. Departure - Departure Time of Disposition: 14:40 Disposition: Home, Self-Care 01 Condition: Good Clinical Impression: Chronic relapsing pancreatitis - Discharge Information *PRESCRIPTION DRUG MONITORING PROGRAM REVIEWED*: Not Applicable *COPY OF PRESCRIPTION DRUG MONITORING REPORT IN PATIENT ALE: Not Applicable Referrals: Farzaneh Smith MD [Primary Care Provider] - Additional Instructions: Follow up with your specialist tomorrow. Please return if you are worse. Sepsis Event Note (ED) - Evaluation Sepsis Screening Result: No Definite Risk - Focused Exam Vital Signs: Vital Signs Temp Pulse Resp BP Pulse Ox 07/11/20 13:50 98.1 F 90 16 153/90 H 100
== END 2020-07-11 14:50 | disposition home or self-care (01) ==
LOC: JD.ED 13:38
DX: K86.1 Other chronic pancreatitis (principal); I10 Essential (primary) hypertension; D50.9 Iron deficiency anemia, unspecified; E66.9 Obesity, unspecified; Z68.38 Body mass index [BMI] 38.0-38.9, adult; Z98.890 Other specified postprocedural states; Z90.49 Acquired absence of other specified parts of digestive tract; Z98.84 Bariatric surgery status; Z88.8 Allergy status to other drugs, medicaments and biological substances; Z88.5 Allergy status to narcotic agent; Z88.6 Allergy status to analgesic agent; Z79.899 Other long term (current) drug therapy
CPT/HCPCS: 96372; 99284; J1170; J2550

== ENCOUNTER 2020-07-20 16:11 | Emergency (ER) | payer BC ==
[2020-07-20 16:32] VITALS: BP 188/108; PULSE 95
[2020-07-20] MEDS ORDERED: HYDROmorphone 1 MG/ML Syringe IM ONE (16:34)
[2020-07-20] MEDS ORDERED: diphenhydrAMINE 50 MG/ML SDV IM ONE (16:35)
[2020-07-20] MEDS ORDERED: Promethazine 25 MG/ML SDV IM ONE (16:35)
[2020-07-20] MEDS ORDERED: Hydrocortisone Sodium Succinate 100 MG/2 ML SDV IM ONE (16:37)
--- NOTE | 2020-07-20 16:37 | EDM.PDOC ---
ED HPI GENERAL MEDICAL PROBLEM - General Chief Complaint: Abdominal Pain Stated Complaint: PANCREATITIS Time Seen by Provider: 07/20/20 16:34 Source of Information: Reports: Patient History Limitations: Reports: No Limitations - History of Present Illness INITIAL COMMENTS - FREE TEXT/NARRATIVE: 44-year-old female presents to the ED with a known history of severe relapsing chronic pancreatitis presents the ED with severe left upper quadrant abdominal pain rating through to her back inferior to her scapula for the last 3 days. Associated intractable nausea and vomiting of bilious material. No hematemesis. Associated dyspnea at a rate with approximately 6-7 loose bilious looking stools per day for the last 3 days. She is living on sips of clear fluids if they will stay down such as Gatorade or Powerade. Patient has a neurostimulator device implanted in her spinal cord which has helped eliminate approximately 30 to 40% of her pain. She turns it off when she starts vomiting as if she leaves it on it will precipitate further vomiting. She has no fever or chills. Pain is 10 out of 10. No different than what she is experienced on a multitude of occasions in the past on presentation to the ED. Onset: Gradual Onset Date: 07/18/20 Duration: Day(s):, Getting Worse Location: Reports: Abdomen (Intractable nausea and vomiting of bilious material and diarrhea with CT at [facility] Back Quality: Reports: Ache (Pain rating from the left upper quadrant into through to the back inferior to the scapula.), Throbbing, Other (5 is a deep boring aching pain which is constant.) Severity: Severe Improves with: Reports: None Worsens with: Reports: None Context: Reports: Other (Jennifer is occurrence 3 days ago.). Denies: Activity, Exercise, Lifting, Sick Contact, Trauma Associated Symptoms: Reports: Diaphoresis, Loss of Appetite, Malaise, Nausea/Vomiting, Weakness, Other (Right headed and dizzy with standing.). De nies: Confusion, Chest Pain, Cough, cough w sputum, Fever/Chills, Rash, Seizure (Tractable nausea and vomiting of bilious material. 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: Other (see below) (Unable to keep down any oral medications.) Left Upper Abdomen Pain Score (Numeric/FACES): 9 Left Middle Posterior Back Pain Score (Numeric/FACES): 9 - Related Data Allergies Allergy/AdvReac Type Severity Reaction Status Date / Time amylase [From Creon] Allergy Intermediate Rash Verified 07/20/20 16:52 lipase [From Creon] Allergy Intermediate Rash Verified 07/20/20 16:52 protease [From Creon] Allergy Intermediate Rash Verified 07/20/20 16:52 buprenorphine [From Butrans] Allergy Mild Itching Verified 07/20/20 16:52 metoclopramide HCl Allergy Mild Itching Verified 07/20/20 16:52 [From Reglan] ketorolac [From Toradol] AdvReac Intermediate Bleeding Verified 07/20/20 16:52 NSAIDS (Non-Steroidal AdvReac Mild Abdominal Verified 07/20/20 16:52 Anti-Inflamma Pain prochlorperazine AdvReac Mild Vomiting Verified 07/20/20 16:52 [From Compazine] Home Meds: Home Meds Mirtazapine 30 mg PO BEDTIME 03/14/19 [History] Pantoprazole Sodium [Protonix] 40 mg PO BID 03/14/19 [History] Prazosin HCl [Prazosin] 5 mg PO BEDTIME 03/14/19 [History] Vortioxetine [Trintellix] 10 mg PO DAILY 03/14/19 [History] Ferrous Sulfate [Iron] 650 mg PO BID 05/15/19 [History] QUEtiapine Fumarate [Quetiapine Fumarate] 75 mg PO BEDTIME 05/15/19 [History] Cholecalciferol (Vitamin D3) [Vitamin D3] 1,000 intnl unit PO DAILY 06/28/19 [History] Hydrocortisone [Cortef] 5 mg PO 0600 10/11/19 [History] Hydrocortisone [Cortef] 15 mg PO 1300 10/11/19 [History] Levothyroxine 125 mcg PO ACBREAKFAST 10/11/19 [History] Ondansetron [Zofran ODT] 4 mg PO Q8H PRN #28 tab.dis 03/27/20 [Rx] oxyCODONE HCl/Acetaminophen [Percocet 5-325 mg Tablet] 1 - 2 each PO Q4H PRN #20 tablet 07/20/20 [Rx] Past Medical History HEENT History: Reports: Glaucoma, Otitis Media Cardiovascular History: Reports: Hypertension Other Cardiovascular History: tachycardia Gastrointestinal History: Reports: Hemorrhoids Other Gastrointestinal History: LUQ pain, hemorrhoids Genitourinary History: Reports: UTI, Recurrent 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 History: c section x3, tubes tied Musculoskeletal History: Reports: Arthritis, Fracture Other Musculoskeletal History: left foot fracture, elbow pain, wrist pain, weakness, falls Neurological History: Reports: Other (See Below) Other Neuro History: pseudotumor, shunt, benign pineal brain tumor, memory loss, seizure disorder, vertigo, brain surgery x 16 Psychiatric History: Reports: Addiction, Anxiety, Depression Endocrine/Metabolic History: Reports: Hypothyroidism, Obesity/BMI 30+, Vitamin D Deficiency, Other (See Below) Other Endocrine/Metabolic History: hyperthyroidism, hypothyroidism, hashimotos, secondary adrenal insufficiency Hematologic History: Reports: Anemia, Iron Deficiency Other Hematologic History: anti TPO antibody Immunologic History: Reports: None Dermatologic History: Reports: Cellulitis - Infectious Disease History Infectious Disease History: Reports: None Other Infectious Disease History: in 2006, 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." - Past Surgical History Head Surgeries/Procedures: Reports: Shunt, Other (See Below) HEENT Surgical History: Reports: Oral Surgery GI Surgical History: Reports: Appendectomy, Bariatric Procedure, Cholecystectomy, Colonoscopy, EGD, ERCP Female Surgical History: Reports: Section, Tubal Ligation Neurological Surgical History: Reports: Other (See Below) Social & Family History - Family History Family Medical History: Noncontributory Cardiac: Reports: Bypass, Hypertension, [place] Respiratory: Reports: Asthma Oncologic: Reports: Colon - Caffeine Use Caffeine Use: Reports: None Other Caffeine Use: 1 cup daily - Living Situation & Occupation Living situation: Reports: , with Spouse Occupation: Unemployed ED [facility] [email or web address]] GENERAL - Review of Systems Review Of Systems: See Below Constitutional: Reports: Malaise, Weakness, Fatigue, Decreased Appetite. Denies: Fever, Chills, Weight Loss HEENT: Reports: No Symptoms Respiratory: Reports: Shortness of Breath Cardiovascular: Reports: No Symptoms (Splinting on the left side is deep breathing makes the abdominal pain worse.), Blood Pressure Problem (Blood pressure is elevated today.) GI/Abdominal: Reports: Abdominal Pain (Gastric and severe pain left upper quadrant then rating through to the left back under the shoulder blade.), Diarrhea (Rynex DM at [facility] bile-stained usually 6 or 7 bowel movements per day even with not eating.) : Reports: Other (Dark shaniqua-colored urine. Seems to contain bilirubin.) Musculoskeletal: Reports: Back Pain Skin: Reports: No Symptoms Neurological: Reports: Dizziness (Right headedness with standing.) Psychiatric: Reports: Suicidal Ideation Hematologic/Lymphatic: Reports: No Symptoms (Due to chronic illness. She has no definitive plan. She states the thought crosses her mind intermittently) Immunologic: Reports: No Symptoms ED EXAM, GI/ABD - Physical Exam Exam: See Below Exam Limited By: No Limitations General Appearance: Alert, WD/WN, Mild Distress, Other (Temperature is 36.6. Pulse is 95 and sinus respiratory is 20. BP is markedly elevated today at 188 108. Pulse ox 96% room air.) Eyes: Bilateral: Normal Appearance (No scleral icterus or blepharal pallor.) Throat/Mouth: Other Head: Atraumatic (Is mildly dry and coated.), Normocephalic Neck: Normal Inspection, Supple, Non-Tender, Full Range of Motion. No: Lymphadenopathy (L), Lymphadenopathy (R) Respiratory/Chest: No Respiratory Distress, Lungs Clear, Normal Breath Sounds, No Accessory Muscle Use, Chest Non-Tender Cardiovascular: Normal Peripheral Pulses, Regular Rate, Rhythm, No Edema, No Gallop, No Murmur, No Rub GI/Abdominal Exam: Soft, No Organomegaly, Distended ( slightly decreased from the norm in all 4 quadrants.), Guarding ( with guarding.), Tender ( No and is distended and slightly tympanitic percussion upper abdomen compatible some degree of aerophagia. Extremely tender to palpation left upper quadrant of the abdomen), Abnormal Bowel Sounds (All sounds are). No: Rigid, Rebound Back Exam: Normal Inspection, Full Range of Motion. No: CVA Tenderness (L), CVA Tenderness (R) Extremities: Normal Inspection, Normal Range of Motion, Non-Tender, No Pedal Donaldo ma Neurological: Alert, Oriented, CN II-XII Intact, Normal Cognition Psychiatric: Anxious, Other Skin Exam: Warm (In a good deal of discomfort at this time.), Dry, Intact, Normal Color, No Rash Course - Vital Signs Last Recorded V/S: Last Vital Signs Temp 36.6 C 07/20/20 16:30 Pulse 95 07/20/20 16:30 Resp 20 07/20/20 16:30 BP 188/108 H 07/20/20 16:30 Pulse Ox 96 07/20/20 16:30 - Orders/Labs/Meds Meds: Medications Discontinued Medications Generic Name Dose Route Start Last Admin Trade Name Dominic PRN Reason Stop Dose Admin Diphenhydramine HCl 50 mg 07/20/20 16:35 07/20/20 16:54 Benadryl IM 07/20/20 16:36 50 mg ONETIME ONE Administration Hydrocortisone Sodium Succinate 100 mg 07/20/20 16:37 07/20/20 16:56 Solu-Cortef IM 07/20/20 16:38 100 mg ONETIME ONE Administration Hydromorphone HCl 2 mg 07/20/20 16:34 07/20/20 17:07 Dilaudid IM 07/20/20 16:35 2 mg ONETIME ONE Administration Lorazepam 1 mg 07/20/20 16:39 Ativan IV Q6H PRN Anxiety Lorazepam 1 mg 07/20/20 16:47 07/20/20 16:57 Ativan IM 07/20/20 16:48 1 mg ONETIME ONE Administration Promethazine HCl 37.5 mg 07/20/20 16:35 07/20/20 17:05 Phenergan IM 07/20/20 16:36 37.5 mg ONETIME ONE Administration - Radiology Interpretation Free Text/Narrative:: 44-year-old female presents to the ED with acute onset of left upper quadrant abdominal pain rating through to her back characteristic of her chronic relapsing pancreatitis. This is been going on for greater than 5 years. She is currently being followed by physicians in [place] and at the [facility]. Last MRI done a month ago apparently show significant necrotic destruction of the tail and mid body of the pancreas. There is still some consensus that they may well go in and remove a good portion of her pancreas in an effort to reduce her pain. Plan today she will receive 2 mg of Dilaudid IM with Ativan 1 mg IV M and Benadryl 50 mg IM and Phenergan 37.5 mg IM for acute pain and nausea relief. She has received this dosage many times in the past with no issues. - Re-Assessments/Exams Free Text/Narrative Re-Assessment/Exam: 07/20/20 17:38: Patient states her pain is much better and she has no further nausea and vomiting. She wishes to be discharged to home. Prescription written for Percocet 5/325 mg strength 1 or 2 every 4-6 hours necessary for pain relief x20 tablets as she lives in [facility] and does not have readily access to any narcotic pain medications for acute pain relief. Departure - Departure Time of Disposition: 17:36 Disposition: Home, Self-Care 01 Condition: Fair Clinical Impression: Chronic relapsing pancreatitis, Intractable nausea and vomiting, Steatorrhea, pancreatic - Discharge Information *PRESCRIPTION DRUG MONITORING PROGRAM REVIEWED*: Not Applicable *COPY OF PRESCRIPTION DRUG MONITORING REPORT IN PATIENT ALE: Not Applicable Prescriptions: oxyCODONE HCl/Acetaminophen [Percocet 5-325 mg Tablet] 1 - 2 each PO Q4H PRN #20 tablet PRN Reason: pain relief. Instructions: Pancreatitis Eating Plan, Nausea and Vomiting, Adult Referrals: Farzaneh Smith MD [Primary Care Provider] - Forms: ED Department Discharge Additional Instructions: Evaluation in the emergency room today in regards to recurrent onset of severe left upper quadrant abdominal pain rating through to her back under the shoulder blade characteristic of your chronic relapsing pancreatitis. The pain in turn is associated with intractable nausea and vomiting of bilious material and diarrhea which is called steatorrhea as it will float on the surface of the toilet due to the high concentration of fats in the diarrhea. You were treated today with intramuscular Dilaudid 2 mg with Ativan 1 mg and Phenergan 37.5 mg IM with Benadryl 50 mg IM to help bring the vomiting and pain under control. Prescription written for Percocet tabs 5 325 mg strength through the [employer] machine to be taken 1 or 2 every 4-6 hours necessary for pain relief as needed. Sepsis Event Note (ED) - Evaluation Sepsis Screening Result: No Definite Risk - Focused Exam Vital Signs: Vital Signs Temp Pulse Resp BP Pulse Ox 07/20/20 16:30 36.6 C 95 20 188/108 H 96
[2020-07-20] MEDS ORDERED: LORazepam 2 MG/ML SDV IV PRN (16:39)
[2020-07-20] MEDS ORDERED: LORazepam 2 MG/ML SDV IM ONE (16:47)
== END 2020-07-20 17:51 | disposition home or self-care (01) ==
LOC: JD.ED 16:11
DX: K86.1 Other chronic pancreatitis (principal); R11.2 Nausea with vomiting, unspecified; K90.3 Pancreatic steatorrhea; I10 Essential (primary) hypertension; F41.9 Anxiety disorder, unspecified; F32.9 Major depressive disorder, single episode, unspecified; Z88.8 Allergy status to other drugs, medicaments and biological substances; E03.9 Hypothyroidism, unspecified; E66.9 Obesity, unspecified; Z68.38 Body mass index [BMI] 38.0-38.9, adult; Z79.899 Other long term (current) drug therapy; Z91.018 Allergy to other foods; Z88.6 Allergy status to analgesic agent
CPT/HCPCS: 96372; 99283; J1170; J1200; J1720; J2060; J2550; 99284

== ENCOUNTER 2020-07-27 13:39 | Emergency (ER) | payer BC ==
[2020-07-27] MEDS ORDERED: diphenhydrAMINE 50 MG/ML SDV IM ONE (13:49)
[2020-07-27] MEDS ORDERED: HYDROmorphone 1 MG/ML Syringe IM ONE (13:49)
[2020-07-27] MEDS ORDERED: Promethazine 25 MG/ML SDV IM ONE (13:49)
[2020-07-27 13:55] VITALS: BP 166/109; PULSE 89
--- NOTE | 2020-07-27 14:05 | EDM.PDOC ---
ED HPI GENERAL MEDICAL PROBLEM - General Chief Complaint: Back Pain or Injury Stated Complaint: BACK PAIN Time Seen by Provider: 07/27/20 13:47 Source of Information: Reports: Patient, Old Records, RN Notes Reviewed History Limitations: Reports: No Limitations - History of Present Illness INITIAL COMMENTS - FREE TEXT/NARRATIVE: Patient is a 44-year-old female who presents to the ED for evaluation of her left mid back pain. She states that this is some of the same pain that she normally has, she believes it is coming from her left upper abdomen. She notes that she had a recent MRI done, and states that her specialist at the 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 So unfortunately she is dealing with the pain. She had a pain pump placed for back pain, and states that it does take away most of the pain but she has had intractable vomiting today, not able to keep anything down for pain or nausea. She did try hot bath with a heating pad along with Tylenol and gabapentin for management, but has not had any relief. She denies any fevers or chills, cough or shortness of breath. She states she is having some mild diarrhea, but this is common for her and is not worse than normal. Middle Back Pain Score (Numeric/FACES): 8 - Related Data Allergies Allergy/AdvReac Type Severity Reaction Status Date / Time amylase [From Creon] Allergy Intermediate Rash Verified 07/20/20 16:52 lipase [From Creon] Allergy Intermediate Rash Verified 07/20/20 16:52 protease [From Creon] Allergy Intermediate Rash Verified 07/20/20 16:52 buprenorphine [From Butrans] Allergy Mild Itching Verified 07/20/20 16:52 metoclopramide HCl Allergy Mild Itching Verified 07/20/20 16:52 [From Reglan] ketorolac [From Toradol] AdvReac Intermediate Bleeding Verified 07/20/20 16:52 NSAIDS (Non-Steroidal AdvReac Mild Abdominal Verified 07/20/20 16:52 Anti-Inflamma Pain prochlorperazine AdvReac Mild Vomiting Verified 07/20/20 16:52 [From Compazine] Home Meds: Home Meds Mirtazapine 30 mg PO BEDTIME 03/14/19 [History] Pantoprazole Sodium [Protonix] 40 mg PO BID 03/14/19 [History] Prazosin HCl [Prazosin] 5 mg PO BEDTIME 03/14/19 [History] Vortioxetine [Trintellix] 10 mg PO DAILY 03/14/19 [History] Ferrous Sulfate [Iron] 650 mg PO BID 05/15/19 [History] QUEtiapine Fumarate [Quetiapine Fumarate] 75 mg PO BEDTIME 05/15/19 [History] Cholecalciferol (Vitamin D3) [Vitamin D3] 1,000 intnl unit PO DAILY 06/28/19 [History] Hydrocortisone [Cortef] 5 mg PO 0600 10/11/19 [History] Hydrocortisone [Cortef] 15 mg PO 1300 10/11/19 [History] Levothyroxine 125 mcg PO ACBREAKFAST 10/11/19 [History] Ondansetron [Zofran ODT] 4 mg PO Q8H PRN #28 tab.dis 03/27/20 [Rx] oxyCODONE HCl/Acetaminophen [Percocet 5-325 mg Tablet] 1 - 2 each PO Q4H PRN #20 tablet 07/20/20 [Rx] Past Medical History HEENT History: Reports: Glaucoma, Otitis Media Cardiovascular History: Reports: Hypertension Other Cardiovascular History: tachycardia Gastrointestinal History: Reports: Hemorrhoids Other Gastrointestinal History: LUQ pain, hemorrhoids Genitourinary History: Reports: UTI, Recurrent 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: c section x3, tubes tied Musculoskeletal History: Reports: Arthritis, Fracture Other Musculoskeletal History: left foot fracture, elbow pain, wrist pain, weakness, falls Neurological History: Reports: Other (See Below) Other Neuro History: pseudotumor, shunt, benign pineal brain tumor, memory loss, seizure disorder, vertigo, brain surgery x 16 Psychiatric History: Reports: Addiction, Anxiety, Depression Endocrine/Metabolic History: Reports: Hypothyroidism, Obesity/BMI 30+, Vitamin D Deficiency, Other (See Below) Other Endocrine/Metabolic History: hyperthyroidism, hypothyroidism, hashimotos, secondary adrenal insufficiency Hematologic History: Reports: Anemia, Iron Deficiency Other Hematologic History: anti TPO antibody Immunologic History: Reports: None Dermatologic History: Reports: Cellulitis - Infectious Disease History Infectious Disease History: Reports: None Other Infectious Disease History: in 2006, 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." - Past Surgical History Head Surgeries/Procedures: Reports: Shunt, Other (See Below) HEENT Surgical History: Reports: Oral Surgery GI Surgical History: Reports: Appendectomy, Bariatric Procedure, Cholecystectomy, Colonoscopy, EGD, ERCP Female Surgical History: Reports: Section, Tubal Ligation Neurological Surgical History: Reports: Other (See Below) Social & Family History - Family History Family Medical History: Noncontributory Cardiac: Reports: Bypass, Hypertension, SD Respiratory: Reports: Asthma Oncologic: Reports: Colon - Tobacco Use Smoking Status *Q: Never Smoker - Caffeine Use Caffeine Use: Reports: None Other Caffeine Use: 1 cup daily - Recreational Drug Use Recreational Drug Use: No - Living Situation & Occupation Living situation: Reports: , with Spouse Occupation: Unemployed ED ROS GENERAL - Review of Systems Review Of Systems: Comprehensive ROS is negative, except as noted in HPI. ED EXAM, UPPER BACK/NECK PAIN - Physical Exam Exam: See Below Exam Limited By: No Limitations General Appearance: Alert, WD/WN, No Apparent Distress Neck Exam: Non-Tender, Full Range of Motion, Normal Alignment, Normal Inspection Nexus Criteria: No: Posterior, Midline Cervical Tenderness, Evidence of Intoxication, Altered Level of Consciousness, Focal Neurological Deficit, Painful Distraction Injuries Cardiovascular/Respiratory: Regular Rate, Rhythm, No M/R/G, Normal Peripheral Pulses, No JVD, Normal Breath Sounds, No Respiratory Distress GI/Abdominal: Normal Bowel Sounds, Soft, Tender (LUQ mainly) Extremities: Normal Inspection, Normal Capillary Refill 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 geophysical II-XII nml As Tested, No Motor/Sensory Deficits, Alert, Normal Mood/Affect, Oriented x 3 Psychiatric: Normal Affect, Normal Mood Skin Exam: Normal Color, Warm/Dry Lymphatic: No Adenopathy Course - Vital Signs Last Recorded V/S: Last Vital Signs Temp 97.8 F 07/27/20 13:52 Pulse 89 07/27/20 13:52 Resp 20 07/27/20 13:52 BP 166/109 H 07/27/20 13:52 Pulse Ox 100 07/27/20 13:52 - Orders/Labs/Meds Meds: Medications Discontinued Medications Generic Name Dose Route Start Last Admin Trade Name Freq PRN Reason Stop Dose Admin Diphenhydramine HCl 50 mg 07/27/20 13:49 Benadryl IM 07/27/20 13:50 ONETIME ONE Hydromorphone HCl 2 mg 07/27/20 13:49 Dilaudid IM 07/27/20 13:50 ONETIME ONE Promethazine HCl 37.5 mg 07/27/20 13:49 Phenergan IM 07/27/20 13:50 ONETIME ONE - Re-Assessments/Exams Free Text/Narrative Re-Assessment/Exam: 07/27/20 14:02 Patient presents to the ED for evaluation of her back pain. She states is very similar to back pain she has had in the past. I did ask if she would like labs repeated today, and she declined this offer. I have ordered 2 mg IM Dilaudid, 37.5 mg IM Phenergan, and 50 mg IM Benadryl as this seems to have worked well for her in the past. She will be discharged after her medications have been given. Departure - Departure Time of Disposition: 14:03 Disposition: Home, Self-Care 01 Condition: Good Clinical Impression: LUQ abdominal pain Back pain Qualifiers: Back pain location: back pain in other location Chronicity: chronic Qualified Code(s): M54.9 - Dorsalgia, unspecified; G89.29 - Other chronic pain Vomiting Qualifiers: Vomiting type: unspecified Vomiting Intractability: non-intractable Nausea presence: with nausea Qualified Code(s): R11.2 - Nausea with vomiting, unspecified - Discharge Information *PRESCRIPTION DRUG MONITORING PROGRAM REVIEWED*: No *COPY OF PRESCRIPTION DRUG MONITORING REPORT IN PATIENT ALE: No Instructions: Nausea and Vomiting, Adult, [id number] Referrals: Farzaneh Smith MD [Primary Care Provider] - Additional Instructions: You have been evaluated in the ED for nausea/vomiting/diarrhea. You have received IM medications in the ER to help relieve the vomiting. You were also given some IM pain medications to help relieve some of the pain you are experiencing. Over the next 24-48 hours please try to limit diet to clear liquids and advance as tolerate to a bland diet to alleviate symptoms of nausea/vomiting/diarrhea. Please follow-up with your primary care provider, or specialist for further pain management for outpatient needs. Please return to the ED if your symptoms should change or worsen. Sepsis Event Note (ED) - Evaluation Sepsis Screening Result: No Definite Risk - Focused Exam Vital Signs: Vital Signs Temp Pulse Resp BP Pulse Ox 07/27/20 13:52 97.8 F 89 20 166/109 H 100
== END 2020-07-27 14:20 | disposition home or self-care (01) ==
LOC: JD.ED 13:39
DX: M54.6 Pain in thoracic spine (principal); G89.29 Other chronic pain; R10.12 Left upper quadrant pain; R11.2 Nausea with vomiting, unspecified; I10 Essential (primary) hypertension; F41.9 Anxiety disorder, unspecified; F32.9 Major depressive disorder, single episode, unspecified; E03.9 Hypothyroidism, unspecified; E66.9 Obesity, unspecified; Z68.38 Body mass index [BMI] 38.0-38.9, adult; Z91.048 Other nonmedicinal substance allergy status; Z88.8 Allergy status to other drugs, medicaments and biological substances; Z88.6 Allergy status to analgesic agent
CPT/HCPCS: 96372; 99283; J1170; J1200; J2550

== ENCOUNTER 2020-07-29 13:29 | Emergency (ER) | payer OTHER, BC ==
[2020-07-29] MEDS ORDERED: HYDROmorphone 1 MG/ML Syringe IM ONE ×2 (13:38→15:35)
[2020-07-29] MEDS ORDERED: LORazepam 2 MG/ML SDV IM ONE (13:39)
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
--- NOTE | 2020-07-29 15:10 | CT ---
CT chest Technique: Multiple axial sections through the chest were obtained. Intravenous contrast not utilized. This can decrease the evaluation for subtle vascular injuries. Reconstructed coronal and sagittal images were obtained. Findings: Aorta shows no aneurysm. Mediastinum and hilar regions show no adenopathy. No pericardial thickening is seen. No axillary adenopathy is seen. Lungs show no acute parenchymal change. No pleural effusions or pneumothorax is seen. Bone window settings were reviewed. No acute rib fracture is appreciated. Reconstructed lateral views of the sternum shows no discrete fracture. Impression: 1. Nothing acute is appreciated on noncontrast CT study of the chest. Diagnostic code #1 This report was dictated in MDT CT abdomen and pelvis Technique: Multiple axial sections were obtained from above the dome of the diaphragm inferiorly through the pubic symphysis. Intravenous and oral contrast not utilized. Lack of intravenous contrast decreases solid organ details. Findings: No discrete abnormality is seen within the liver. Spleen shows no discrete abnormality. Electro-stimulating wire noted within the thoracic spine. Catheter is noted along the anterior chest terminating within the abdomen possibly due to shunt catheter. Pancreas shows no discrete abnormality. Surgical clips are seen from prior cholecystectomy. Adrenal glands appear within normal limits. Previous gastric surgery is noted. Kidneys show no hydronephrosis or abnormal calcifications. Aorta shows no aneurysm. No retroperitoneal adenopathy or mesenteric abnormalities are seen. Appendix not definitely visualized. No pelvic mass or adenopathy is seen. No free fluid or inflammatory change is appreciated. Bone window settings were reviewed which shows a superior endplate compression fracture within L1. Slightly bowed posterior vertebral line is seen. No fracture within the posterior elements are seen. No pelvic fracture is appreciated. Right and left hip show no discrete fracture. Impression: 1. Superior endplate compression fracture of L1. 2. No other acute abnormality appreciated on CT study of the abdomen and pelvis. Diagnostic code #3 This report was dictated in MDT
--- NOTE | 2020-07-29 15:20 | CT ---
CT lumbar spine Technique: Multiple axial sections were obtained through the thoracic spine. Reconstructed coronal and sagittal images were obtained. Comparison: Prior CT abdomen and pelvis study showing the lumbar spine dated 11/16/19. Findings: Moderate compression deformity with endplate concavity is seen within the superior endplate of L1. Acute fracture lines are seen in this area. Posterior elements are intact with no posterior fracture. Minimal retrolisthesis of the superior aspect of the posterior vertebral line is seen by about 4 mm into the central canal. No central canal stenosis is seen. No additional lumbar spine fracture is seen. No abnormal subluxation is seen. Mild disc space narrowing at L5-S1 is seen. Mild diffuse degenerative apophyseal change is seen. No focal disc herniation is seen. Impression: 1. Acute compression fracture involving the superior endplate of L1. Slight retrolisthesis of the superior aspect of the posterior vertebral line into the central canal by about 4 mm is noted. This causes no central canal stenosis. Posterior elements are intact and show no fracture. 2. Mild degenerative change. No other acute abnormality is seen on CT study of the lumbar spine. Diagnostic code #3 This report was dictated in MDT
--- NOTE | 2020-07-29 15:23 | CT ---
CT thoracic spine Technique: Multiple axial sections through the thoracic spine were obtained. Reconstructed coronal and sagittal images were reviewed. Findings: Vertebral body heights are maintained. Mild scattered endplate osteophytes are seen. Mild scoliosis is noted. Spinal electro-stimulating wires are seen terminating within the thoracic spine. Mild scattered disc space narrowing is noted. No fracture is appreciated within the thoracic spine. No bony central or bony neural foraminal stenosis is seen. Impression: 1. Degenerative change as noted above. Spinal electro-stimulating wires. 2. No acute fracture or abnormal subluxation is seen. Diagnostic code #2 This report was dictated in MDT
[2020-07-29] MEDS: HYDROmorphone 1 MG/ML Syringe IVPUSH ONE ×2 (15:35→15:54)
[2020-07-29] MEDS ORDERED: Promethazine 25 MG/ML SDV IM ONE (15:36)
--- NOTE | 2020-07-29 15:38 | CT ---
CT cervical spine Technique: Multiple axial sections were obtained through the cervical spine. Reconstructed coronal and sagittal images were obtained. Study was obtained from above C1 inferiorly to the bottom of T2. Findings: Mild disc space narrowing is seen at C5-6 with anterior osteophytes and mild posterior osteophytes. Vertebral body heights are maintained. Mild degenerative change is noted between the dens and anterior arch of C1. Retention cyst is noted within the inferior left maxillary sinus measuring 1.7 cm. No bony central or bony neural foraminal stenosis is seen. No fracture is appreciated. No abnormal subluxation is seen. Impression: 1. Mild degenerative change as noted above. 2. Retention cyst within the left maxillary sinus. 3. No acute fracture or abnormal subluxation is appreciated. Diagnostic code #2 This report was dictated in MDT
[2020-07-29 15:58] VITALS: BP 146/110; PULSE 73
== END 2020-07-29 16:00 | disposition home or self-care (01) ==
LOC: JD.ED 13:29
DX: S32.019A Unspecified fracture of first lumbar vertebra, initial encounter for closed fracture (principal); I10 Essential (primary) hypertension; G40.909 Epilepsy, unspecified, not intractable, without status epilepticus; E03.9 Hypothyroidism, unspecified; E66.9 Obesity, unspecified; Z68.38 Body mass index [BMI] 38.0-38.9, adult; Z88.8 Allergy status to other drugs, medicaments and biological substances; Z91.048 Other nonmedicinal substance allergy status; Z79.899 Other long term (current) drug therapy; V48.5XXA Car driver injured in noncollision transport accident in traffic accident, initial encounter
CPT/HCPCS: 71250; 72125; 72128; 72131; 74176; 96372; 99284; J1170; J2060; J2550

== ENCOUNTER 2020-08-19 08:18 | Emergency (ER) | payer OTHER, BC ==
[2020-08-19 09:31] VITALS: BP 181/104; PULSE 92
[2020-08-19] MEDS ORDERED: HYDROmorphone 1 MG/ML Syringe IM ONE (11:20)
[2020-08-19] MEDS ORDERED: Dexamethasone 10 MG/ML SDV IM ONE (11:20)
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
== END 2020-08-19 12:50 | disposition home or self-care (01) ==
LOC: JD.ED 08:18
DX: S32.019A Unspecified fracture of first lumbar vertebra, initial encounter for closed fracture (principal); R29.818 Other symptoms and signs involving the nervous system; I10 Essential (primary) hypertension; F32.9 Major depressive disorder, single episode, unspecified; E03.9 Hypothyroidism, unspecified; E66.9 Obesity, unspecified; Z68.38 Body mass index [BMI] 38.0-38.9, adult; Z88.6 Allergy status to analgesic agent; Z91.048 Other nonmedicinal substance allergy status; Z88.8 Allergy status to other drugs, medicaments and biological substances; Z79.899 Other long term (current) drug therapy; V49.9XXA Car occupant (driver) (passenger) injured in unspecified traffic accident, initial encounter
CPT/HCPCS: 72131; 96372; 99283; J1100; J1170

== ENCOUNTER 2020-08-29 14:20 | Emergency (ER) | payer BC ==
[2020-08-29 15:18] VITALS: BP 151/116; PULSE 97
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
[2020-08-29] MEDS ORDERED: HYDROmorphone 1 MG/ML Syringe IM ONE (16:16)
== END 2020-08-29 16:50 | disposition left against medical advice (07) ==
LOC: JD.ED 14:20
DX: M54.5 Low back pain (principal); I10 Essential (primary) hypertension; F41.9 Anxiety disorder, unspecified; F32.9 Major depressive disorder, single episode, unspecified; E03.9 Hypothyroidism, unspecified; E66.9 Obesity, unspecified; Z68.41 Body mass index [BMI] 40.0-44.9, adult; Z88.6 Allergy status to analgesic agent; Z88.8 Allergy status to other drugs, medicaments and biological substances; Z91.018 Allergy to other foods
CPT/HCPCS: 96372; 99283; J1170

== ENCOUNTER 2020-09-18 08:26 | Emergency (ER) | payer BC ==
[2020-09-18 09:09] VITALS: BP 146/121; PULSE 91
[2020-09-18] MEDS ORDERED: Ketorolac 30 MG/ML SDV IM ONE (09:22)
[2020-09-18] MEDS ORDERED: Promethazine 25 MG/ML SDV IM ONE (09:23)
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
== END 2020-09-18 09:57 | disposition home or self-care (01) ==
LOC: JD.ED 08:26
DX: R10.12 Left upper quadrant pain (principal); R11.2 Nausea with vomiting, unspecified; I10 Essential (primary) hypertension; E03.9 Hypothyroidism, unspecified; E66.9 Obesity, unspecified; F41.9 Anxiety disorder, unspecified; F32.9 Major depressive disorder, single episode, unspecified; Z68.38 Body mass index [BMI] 38.0-38.9, adult; Z90.49 Acquired absence of other specified parts of digestive tract; Z98.51 Tubal ligation status; Z88.8 Allergy status to other drugs, medicaments and biological substances; Z88.6 Allergy status to analgesic agent; Z79.899 Other long term (current) drug therapy
CPT/HCPCS: 96372; 99283; J1885; J2550

== ENCOUNTER 2020-11-16 09:21 | Emergency (ER) | payer BC ==
[2020-11-16 09:35] VITALS: BP 163/94; PULSE 105
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
[2020-11-16] MEDS ORDERED: Promethazine 25 MG/ML SDV IM ONE (10:04)
[2020-11-16] MEDS ORDERED: HYDROmorphone 0.5 MG/0.5 ML Syringe IM ONE (10:04)
== END 2020-11-16 11:00 | disposition home or self-care (01) ==
LOC: JD.ED 09:21
DX: K86.1 Other chronic pancreatitis (principal); I10 Essential (primary) hypertension; F41.9 Anxiety disorder, unspecified; F32.9 Major depressive disorder, single episode, unspecified; E03.9 Hypothyroidism, unspecified; D50.9 Iron deficiency anemia, unspecified; E66.9 Obesity, unspecified; Z68.41 Body mass index [BMI] 40.0-44.9, adult; Z88.8 Allergy status to other drugs, medicaments and biological substances; Z88.6 Allergy status to analgesic agent; Z79.899 Other long term (current) drug therapy
CPT/HCPCS: 96372; 99283; J1170; J2550; 99284

== ENCOUNTER 2020-12-18 09:14 | Emergency (ER) | payer BC ==
[2020-12-18 09:38] VITALS: BP 142/98; PULSE 81
[2020-12-18] MEDS ORDERED: HYDROmorphone 1 MG/ML Syringe IM ONE ×3 (10:08→14:38)
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
--- NOTE | 2020-12-18 12:24 | CT ---
CT lumbar spine Technique: Multiple axial sections were obtained from above the T9-10 level inferiorly to the L5-S1 level. Reconstructed coronal and sagittal images were obtained. Comparison: Previous lumbar spine study of 07/29/20. Findings: Electrostimulating wire is seen which enters at the L2-3 level and extends superiorly to approximately the inferior T9-10 disc level. There are trans-pedicle screws between the T11 level inferiorly through the L3 level. These trans-pedicle screws affix a compression deformity of L1 which has increased in amount from previous exam. Fracture lines are seen superiorly within the L1 vertebral body and difficult to exclude some acute change. Vacuum disc phenomena is noted within the T12-L1 disc. There is slight retrolisthesis of the posterior L1 vertebral line by about 4 mm. Mild superior compression deformity is noted within L4. This is an interval change from prior exam and most likely is acute. Other vertebral body heights are maintained. Scattered degenerative apophyseal change is seen. Scattered endplate osteophytes are noted. No central canal stenosis or discrete neural foraminal stenosis is noted. Impression: 1. Increased compression deformity of the superior L1 vertebral body as well as mild compression deformity within the superior L4 vertebral body. These areas of compression deformities represent an interval change from previous study of 07/29/20. 2. Evidence of prior surgery with trans-pedicle screws at the T11 level through the L3 level. 3. No other acute abnormality is appreciated. Diagnostic code #3
== END 2020-12-18 15:01 | disposition home or self-care (01) ==
LOC: JD.ED 09:14
DX: M54.42 Lumbago with sciatica, left side (principal); R32 Unspecified urinary incontinence; I10 Essential (primary) hypertension; E03.9 Hypothyroidism, unspecified; E66.9 Obesity, unspecified; Z68.39 Body mass index [BMI] 39.0-39.9, adult; Z88.8 Allergy status to other drugs, medicaments and biological substances; Z88.6 Allergy status to analgesic agent; Z79.899 Other long term (current) drug therapy
CPT/HCPCS: 51798; 72131; 81001; 96372; 99284; J1170

== ENCOUNTER 2020-12-22 08:32 | Emergency (ER) | payer BC ==
[2020-12-22 09:11] VITALS: BP 127/92
[2020-12-22] MEDS ORDERED: HYDROmorphone 1 MG/ML Syringe IM ONE (09:34)
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
[2020-12-22 09:50] VITALS: PULSE 72
== END 2020-12-22 09:56 | disposition home or self-care (01) ==
LOC: JD.ED 08:32
DX: G89.29 Other chronic pain (principal); M54.5 Low back pain; I10 Essential (primary) hypertension; E03.9 Hypothyroidism, unspecified; D50.9 Iron deficiency anemia, unspecified; E66.9 Obesity, unspecified; Z88.8 Allergy status to other drugs, medicaments and biological substances; Z88.5 Allergy status to narcotic agent; Z88.6 Allergy status to analgesic agent; Z79.899 Other long term (current) drug therapy
CPT/HCPCS: 96372; 99283; J1170

== ENCOUNTER 2021-02-12 10:20 | Emergency (ER) | payer BC ==
[2021-02-12 11:16] VITALS: BP 174/103; PULSE 96
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
[2021-02-12] MEDS ORDERED: Promethazine 25 MG/ML SDV IM ONE (11:29)
[2021-02-12] MEDS ORDERED: HYDROmorphone 1 MG/ML Syringe IM ONE ×2 (11:29→12:20)
== END 2021-02-12 12:50 | disposition home or self-care (01) ==
LOC: JD.ED 10:20
DX: R10.12 Left upper quadrant pain (principal); I10 Essential (primary) hypertension; E03.9 Hypothyroidism, unspecified; D50.9 Iron deficiency anemia, unspecified; E66.9 Obesity, unspecified; Z68.39 Body mass index [BMI] 39.0-39.9, adult; Z88.1 Allergy status to other antibiotic agents; Z88.8 Allergy status to other drugs, medicaments and biological substances; Z88.5 Allergy status to narcotic agent; Z88.6 Allergy status to analgesic agent; Z79.899 Other long term (current) drug therapy
CPT/HCPCS: 96372; 99283; J1170; J2550

== ENCOUNTER 2021-02-19 10:34 | Emergency (ER) | payer BC ==
[2021-02-19 10:50] VITALS: BP 154/101; PULSE 82
--- NOTE | 2021-02-19 11:17 | EDM.PDOC ---
ED HPI GENERAL MEDICAL PROBLEM - General Chief Complaint: Headache Stated Complaint: HEAD PAIN, SHUNT NOT WORKING Time Seen by Provider: 02/19/21 10:42 Source of Information: Reports: Patient History Limitations: Reports: No Limitations - History of Present Illness INITIAL COMMENTS - FREE TEXT/NARRATIVE: 45-year-old female presents to the emergency department today with complaints of a headache due to which she says is a malfunctioning shunt. Patient states on (5 days ago) she developed increasing headache pain and pressure behind her eyes. She states fluid was leaking from her eyes at that time. She states she called her neurosurgeon, Dr. Jerry, and he no longer places shunts. He states that they are trying to find her an appointment with the neurosurgeon in [place]. She states he then told her that if she needed to to go to the emergency department. She states that the pressure is so exquisite it feels like her eyeballs are going to pop out of her head. She also states she has had blurred vision and double vision and dizziness. She states that if she stands up out of bed too quickly she feels as though she is going to pass out however she sits on the edge of the bed for short time and then stands up to ambulate she does okay. She states she has had nausea and vomiting since . Vomited approximately 10 times since then and states she has vomited twice this morning. Denies any recent fever or chills. Headache Pain Score (Numeric/FACES): 9 - Related Data Allergies Allergy/AdvReac Type Severity Reaction Status Date / Time amylase [From Creon] Allergy Intermediate Rash Verified 02/19/21 10:42 lipase [From Creon] Allergy Intermediate Rash Verified 02/19/21 10:42 protease [From Creon] Allergy Intermediate Rash Verified 02/19/21 10:42 buprenorphine [From Butrans] Allergy Mild Itching Verified 02/19/21 10:42 metoclopramide HCl Allergy Mild Itching Verified 02/19/21 10:42 [From Reglan] ketorolac [From Toradol] AdvReac Intermediate Bleeding Verified 02/19/21 10:42 NSAIDS (Non-Steroidal AdvReac Mild Abdominal Verified 02/19/21 10:42 Anti-Inflamma Pain prochlorperazine AdvReac Mild Vomiting Verified 02/19/21 10:42 [From Compazine] Home Meds: Home Meds Prazosin HCl [Prazosin] 5 mg PO BEDTIME 03/14/19 [History] Vortioxetine [Trintellix] 10 mg PO DAILY 03/14/19 [History] QUEtiapine Fumarate [Quetiapine Fumarate] 75 mg PO BEDTIME 05/15/19 [History] Cholecalciferol (Vitamin D3) [Vitamin D3] 1,000 intnl unit PO DAILY 06/28/19 [History] Levothyroxine 125 mcg PO ACBREAKFAST 10/11/19 [History] Gabapentin [Neurontin] 100 mg PO QID 09/18/20 [History] Multivitamin 1 each PO DAILY 09/18/20 [History] Promethazine [Phenergan] 25 mg PO Q6H PRN #20 tab 02/12/21 [Rx] Past Medical History HEENT History: Reports: Glaucoma, Otitis Media Cardiovascular History: Reports: Hypertension Other Cardiovascular History: tachycardia Respiratory History: Reports: None Gastrointestinal History: Reports: Hemorrhoids, Pancreatitis Other Gastrointestinal History: LUQ pain, hemorrhoids Genitourinary History: Reports: UTI, Recurrent CATTLE BRANDER History: Reports: Other CATTLE BRANDER History: c section x3, tubes tied Musculoskeletal History: Reports: Arthritis, Back Pain, Chronic, Fracture, Other (See Below) Other Musculoskeletal History: left foot fracture, elbow pain, wrist pain, weakness, falls. states fractured back 2x since Jul 2020. States fusion x 2 to lower back. Pt does have a long scar down lower back Neurological History: Reports: Other (See Below) Other Neuro History: pseudotumor, shunt, benign pineal brain tumor, memory loss, seizure disorder, vertigo, brain surgery x 16 Psychiatric History: Reports: Addiction, Anxiety, Depression Endocrine/Metabolic History: Reports: Hypothyroidism, Obesity/BMI 30+, Vitamin D Deficiency, Other (See Below) Other Endocrine/Metabolic History: hyperthyroidism, hypothyroidism, hashimotos, secondary adrenal insufficiency Hematologic History: Reports: Anemia, Iron Deficiency Other Hematologic History: anti TPO antibody Immunologic History: Reports: None Dermatologic History: Reports: Cellulitis - Infectious Disease History Infectious Disease History: Reports: MRSA Other Infectious Disease History: in 2006, 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." - Past Surgical History Head Surgeries/Procedures: Reports: Shunt, Other (See Below) HEENT Surgical History: Reports: Oral Surgery Other HEENT Surgeries/Procedures: [place] teeth removal. dental extraction GI Surgical History: Reports: Appendectomy, Bariatric Procedure, Cholecystectomy, Colonoscopy, EGD, ERCP Other GI Surgeries/Procedures: EUS Female Surgical History: Reports: Section, Tubal Ligation Other Female Surgeries/Procedures: C-SECTIONS X3 Neurological Surgical History: Reports: Lumbar Spine Other Neurological Surgeries/Procedures: brain tumor removal Musculoskeletal Surgical History: Reports: Other (See Below) Other Musculoskeletal Surgeries/Procedures:: spinal cord stimulator implanted.; spinal fusion Other Oncologic Surgeries/Procedures: Brain tumor removal Social & Family History - Family History Family Medical History: No Pertinent Family History Cardiac: Reports: Bypass, Hypertension, [place] Respiratory: Reports: Asthma Oncologic: Reports: Colon - Tobacco Use Tobacco Use Status *Q: Never Tobacco User Second Hand Smoke Exposure: No - Caffeine Use Caffeine Use: Reports: None Other Caffeine Use: 1 cup daily - Recreational Drug Use Recreational Drug Use: No - Living Situation & Occupation Living situation: Reports: , with Spouse Occupation: Unemployed ED ROS GENERAL - Review of Systems Review Of Systems: See Below Constitutional: Reports: No Symptoms. Denies: Fever, Chills, Weakness, Diaphoresis, Decreased Appetite HEENT: Reports: Eye Discharge, Vision Change (Blurred vision double vision) Respiratory: Reports: No Symptoms Cardiovascular: Reports: No Symptoms Endocrine: Reports: No Symptoms GI/Abdominal: Reports: Nausea, Vomiting. Denies: Abdominal Pain, Constipation, Diarrhea : Reports: No Symptoms Musculoskeletal: Reports: No Symptoms Skin: Reports: No Symptoms Neurological: Reports: Dizziness, Headache Psychiatric: Reports: No Symptoms Hematologic/Lymphatic: Reports: No Symptoms Immunologic: Reports: No Symptoms - Physical Exam Exam: See Below Exam Limited By: No Limitations General Appearance: Alert, WD/WN, No Apparent Distress Eye Exam: Bilateral Eye: EOMI, PERRL Ears: Normal External Exam, Hearing Grossly Normal Nose: Normal Inspection Throat/Mouth: Normal Inspection, Normal Lips, Normal Voice, No Airway Compromise Head Exam: Atraumatic. No: Normocephalic (shunt x 2 palpable to right parietal scalp; no erythema or edema noted peripherally around shunts) Neck: Normal Inspection, Supple, Non-Tender, Full Range of Motion Respiratory/Chest: No Respiratory Distress, Lungs Clear, Normal Breath Sounds, No Accessory Muscle Use, Chest Non-Tender Cardiovascular: Normal Peripheral Pulses, Regular Rate, Rhythm, No Edema, No Murmur GI/Abdominal: Normal Bowel Sounds, Soft, Non-Tender, No Distention (Female) Exam: Deferred Rectal (Female) Exam: Deferred Neuro Exam (Abbreviated): Alert, Oriented, CN II-XII Intact, Normal Cognition, No Motor/Sensory Deficits Back Exam: Normal Inspection, Full Range of Motion Extremities: Normal Inspection, Normal Range of Motion, Non-Tender, No Pedal Edema, Normal Capillary Refill Psychiatric: Normal Affect, Normal Mood Skin Exam: Warm, Dry, Intact, Normal Color, No Rash Course - Vital Signs Text/Narrative:: 45-year-old female with history of a shunt in her head. She reports that she feels as though its malfunctioning and not draining appropriately. The symptoms developed about 5 days ago. Subsequently, she has developed blurred vision, double vision, and dizziness. States she has vomited around 10 times since the headache pain developed. The patient does not appear to be in pain as she is smiling during my interview and watching TV. I have ordered a CT of the head and labs. I will call Dr. Jerry's office once I have CT and lab results. Last Recorded V/S: Last Vital Signs Temp 97.0 F 02/19/21 10:35 Pulse 82 02/19/21 10:35 Resp 18 02/19/21 10:35 BP 154/101 H 02/19/21 10:35 Pulse Ox 100 02/19/21 10:35 - Orders/Labs/Meds Orders: Active Orders 24 hr Category Date Time Status HYDROmorphone [Dilaudid] Med 02/19/21 13:15 Once 1 mg IM ONETIME ONE Labs: Laboratory Tests 02/19/21 02/19/21 Range/Units 11:40 11:40 WBC 7.60 (3.98-10.04) K/mm3 RBC 4.01 (3.98-5.22) M/mm3 Hgb 12.2 (11.2-15.7) gm/dl Hct 39.2 (34.1-44.9) % MCV 97.8 H D (79.4-94.8) fl MCH 30.4 (25.6-32.2) pg MCHC 31.1 L (32.2-35.5) g/dl RDW Std Deviation 53.7 H (36.4-46.3) fL Plt Count 285 (182-369) K/mm3 MPV 10.1 (9.4-12.3) fl Neut % (Auto) 52.6 (34.0-71.1) % Lymph % (Auto) 34.5 (19.3-51.7) % [place] % (Auto) 9.7 (4.7-12.5) % Eos % (Auto) 2.4 (0.7-5.8) Baso % (Auto) 0.7 (0.1-1.2) % Neut # (Auto) 4.00 (1.56-6.13) K/mm3 Lymph # (Auto) 2.62 (1.18-3.74) K/mm3 [place] # (Auto) 0.74 H (0.24-0.36) K/mm3 Eos # (Auto) 0.18 (0.04-0.36) K/mm3 Baso # (Auto) 0.05 (0.01-0.08) K/mm3 Sodium 143 (136-145) mEq/L Potassium 3.8 (3.5-5.1) mEq/L Chloride 106 (98-107) mEq/L Carbon Dioxide 27 (21-32) mEq/L Anion Gap 13.8 (5-15) BUN 9 (7-18) mg/dL Creatinine 0.9 (0.55-1.02) mg/dL Est Cr Clr Drug Dosing 84.46 mL/min Estimated GFR (MDRD) > 60 (>60) mL/min BUN/Creatinine Ratio 10.0 L (14-18) Glucose 85 (74-106) mg/dL Calcium 8.4 L (8.5-10.1) mg/dL Magnesium 2.0 (1.8-2.4) mg/dl Total Bilirubin 0.2 (0.2-1.0) mg/dL AST 16 (15-37) U/L ALT 18 (14-59) U/L Alkaline Phosphatase 59 (46-116) U/L C-Reactive Protein 0.2 (<1.0) mg/dL Total Protein 7.6 (6.4-8.2) g/dl Albumin 4.0 (3.4-5.0) g/dl Globulin 3.6 gm/dL Albumin/Globulin Ratio 1.1 (1-2) - Re-Assessments/Exams Free Text/Narrative Re-Assessment/Exam: 02/19/21 12:[address] of the head: 1. Stable head CT study when compared to prior exam on 06/15/2020. 2. Nothing acute is identified on this noncontrast head CT exam. 02/19/21 12:29 Hematology reveals a WBC of 7.60, hemoglobin 12.2, hematocrit 39.2, platelet count 285, chemistry reveals a sodium of 143, potassium 3.8, anion gap 13.8, BUN 9, creatinine 0.9, calcium 8.4, magnesium 2.0, C-reactive protein 0.2. 02/19/21 12:49 Nursing staff reports that the patient is requesting to be discharged from the ED. I phoned Dr. Claritza Mendes, her neurosurgeon however he is surgery and will be for another hour or so. I spoke with the patient regarding this plan and she became very agitated with me and requests to speak to Dr. Gambino. She states that she does not feel like I am giving her the proper care. I asked her why she feels like I am not treating her correctly and she states that I am not taking her seriously and she feels like I am just trying to get rid of her. I discussed the fact that I had performed a CT of the head and this was unremarkable and unchanged sinced 05/2020 and that her lab work was unremarkable and that I phoned her neurosurgeon and that it would be about an hour before he is out of surgery for me to consult with regarding her case. She continues to be agitated, raising her voice with me and requesting to speak with Dr. Gambino. I did speak with Dr. Gambino regarding her case and he does not feel like any further tests need to be run at this time. He is going to go in and visit with the patient. 02/19/21 13:16 After the patient spoke with Dr. Gambino she is requesting to be discharged. However she is requesting a shot of Dilaudid as she plans on driving to [place] to see a specialist of their and does not think she will be able to bear the pain of her headache without it. Departure - Departure Time of Disposition: 13:16 Disposition: Home, Self-Care 01 Condition: Good Clinical Impression: Headache Qualifiers: Headache type: unspecified Headache chronicity pattern: episodic headache Intractability: not intractable Qualified Code(s): R51.9 - Headache, unspecified - Discharge Information Instructions: General Headache Without Cause, [id number] Referrals: Rik Walls PA-C [Primary Care Provider] - Forms: ED Department Discharge Additional Instructions: You were seen in the emergency department today with complaints of headache, blurred vision, double vision and dizziness due to questioning of a malformation in your shunt. CT scan was completed and this was stable as compared to previous CT done on June 152019. Nothing acute was identified on the CT roxane dy per the radiologist reading. Your lab work was also unremarkable. I did attempt to call your neurosurgeon, Dr. Jerry, however he was in surgery and stated he would return my call once he was done. However, you stated you wanted to be discharged to follow-up with a neurosurgeon in [place], [place]. You are given 1 shot of Dilaudid. Sepsis Event Note (ED) - Evaluation Sepsis Screening Result: No Definite Risk - Focused Exam Vital Signs: Vital Signs Temp Pulse Resp BP Pulse Ox 02/19/21 10:35 97.0 F 82 18 154/101 H 100 - My Orders Last 24 Hours: My Active Orders 02/19/21 13:15 HYDROmorphone [Dilaudid] 1 mg IM ONETIME ONE - Assessment/Plan Last 24 Hours: My Active Orders 02/19/21 13:15 HYDROmorphone [Dilaudid] 1 mg IM ONETIME ONE
--- NOTE | 2021-02-19 11:56 | CT ---
Head CT Technique: Multiple axial sections through the brain were obtained. Intravenous contrast was not utilized. Reconstructed coronal and sagittal images were obtained. Comparison: Prior head CT study of 06/15/20. Findings: Previous suboccipital craniotomy is noted. Right-sided intraventricular stent is seen. Slight diminished density is noted around this stent. These findings are stable from previous exam. Ventricular size and sulci over the convexities are stable. No other abnormal parenchymal densities are seen. No evidence of intracranial hemorrhage. No midline shift or mass-effect is appreciated. Bone window settings were reviewed. Visualized mastoid sinuses are clear. Visualized paranasal sinuses partially show a retention cyst within the inferior right maxillary sinus measuring about 1.4 cm. Slight hyperostosis internal frontalis is noted. Impression: 1. Stable head CT study when compared to prior exam of 06/15/20. 2. Nothing acute is identified on this noncontrast head CT exam. Diagnostic code #2
[2021-02-19] MEDS ORDERED: HYDROmorphone 1 MG/ML Syringe IM ONE (13:15)
== END 2021-02-19 13:40 | disposition home or self-care (01) ==
LOC: JD.ED 10:34
DX: R51.9 Headache, unspecified (principal); I10 Essential (primary) hypertension; E03.9 Hypothyroidism, unspecified; E66.9 Obesity, unspecified; Z68.38 Body mass index [BMI] 38.0-38.9, adult; Z88.8 Allergy status to other drugs, medicaments and biological substances; Z88.6 Allergy status to analgesic agent; Z79.899 Other long term (current) drug therapy
CPT/HCPCS: 36415; 70450; 80053; 83735; 85025; 86140; 96372; 99284; J1170

== ENCOUNTER 2021-04-09 08:12 | Emergency (ER) | payer BC ==
[2021-04-09 08:46] VITALS: BP 124/94; PULSE 70
[2021-04-09] MEDS ORDERED: Ondansetron 4 MG/2 ML SDV IVPUSH ONE (10:17)
[2021-04-09] MEDS ORDERED: diphenhydrAMINE 50 MG/ML SDV IVPUSH ONE (10:17)
--- NOTE | 2021-04-09 10:17 | EDM.PDOC ---
ED HPI GENERAL MEDICAL PROBLEM - General Chief Complaint: Headache Stated Complaint: HEADACHE/BLURRED VISON Time Seen by Provider: 04/09/21 10:00 - History of Present Illness INITIAL COMMENTS - FREE TEXT/NARRATIVE: 45-year-old female presents the emergency room with a headache and vision changes. Patient states that her son's been malfunctioning. She recently had a video appointment with a neurosurgeon at the [facility] in [facility] who has her scheduled for surgery on April 29. Patient had a single episode of nausea and vomiting this morning and she noticed her vision is blurrier than normal she states this is normal for her when her shunt malfunctions. According to the patient there is no neurosurgeons in [place] that do shunt work anymore. Treatments DESCRIPTIVE CATALOG LIBRARIAN: Reports: Other Medication(s) Other Treatments DESCRIPTIVE CATALOG LIBRARIAN: zofran Headache Pain Score (Numeric/FACES): 8 - Related Data Allergies Allergy/AdvReac Type Severity Reaction Status Date / Time amylase [From Creon] Allergy Intermediate Rash Verified 02/19/21 10:42 lipase [From Creon] Allergy Intermediate Rash Verified 02/19/21 10:42 protease [From Creon] Allergy Intermediate Rash Verified 02/19/21 10:42 buprenorphine [From Butrans] Allergy Mild Itching Verified 02/19/21 10:42 metoclopramide HCl Allergy Mild Itching Verified 02/19/21 10:42 [From Reglan] ketorolac [From Toradol] AdvReac Intermediate Bleeding Verified 02/19/21 10:42 NSAIDS (Non-Steroidal AdvReac Mild Abdominal Verified 02/19/21 10:42 Anti-Inflamma Pain prochlorperazine AdvReac Mild Vomiting Verified 02/19/21 10:42 [From Compazine] Home Meds: Home Meds Prazosin HCl [Prazosin] 5 mg PO BEDTIME 03/14/19 [History] Vortioxetine [Trintellix] 10 mg PO DAILY 03/14/19 [History] QUEtiapine Fumarate [Quetiapine Fumarate] 75 mg PO BEDTIME 05/15/19 [History] Cholecalciferol (Vitamin D3) [Vitamin D3] 1,000 intnl unit PO DAILY 06/28/19 [History] Levothyroxine 125 mcg PO ACBREAKFAST 10/11/19 [History] Gabapentin [Neurontin] 100 mg PO QID 09/18/20 [History] Multivitamin 1 each PO DAILY 09/18/20 [History] Ondansetron [Zofran ODT] 4 mg PO ASDIRECTED PRN 04/09/21 [History] Past Medical History HEENT History: Reports: Glaucoma, Otitis Media Cardiovascular History: Reports: Hypertension Other Cardiovascular History: tachycardia Respiratory History: Reports: None Gastrointestinal History: Reports: Hemorrhoids, Pancreatitis Other Gastrointestinal History: LUQ pain, hemorrhoids Genitourinary History: Reports: UTI, Recurrent SHIPS EQUIPMENT 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: Reports: Other SHIPS EQUIPMENT 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: c section x3, tubes tied Musculoskeletal History: Reports: Arthritis, Back Pain, Chronic, Fracture, Other (See Below) Other Musculoskeletal History: left foot fracture, elbow pain, wrist pain, weakness, falls. states fractured back 2x since Jul 2020. States fusion x 2 to lower back. Pt does have a long scar down lower back Neurological History: Reports: Other (See Below) Other Neuro History: pseudotumor, shunt, benign pineal brain tumor, memory loss, seizure disorder, vertigo, brain surgery x 16 Psychiatric History: Reports: Addiction, Anxiety, Depression Endocrine/Metabolic History: Reports: Hypothyroidism, Obesity/BMI 30+, Vitamin D Deficiency, Other (See Below) Other Endocrine/Metabolic History: hyperthyroidism, hypothyroidism, hashimotos, secondary adrenal insufficiency Hematologic History: Reports: Anemia, Iron Deficiency Other Hematologic History: anti TPO antibody Immunologic History: Reports: None Dermatologic History: Reports: Cellulitis - Infectious Disease History Infectious Disease History: Reports: MRSA Other Infectious Disease History: in 2006, 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." - Past Surgical History Head Surgeries/Procedures: Reports: Shunt, Other (See Below) HEENT Surgical History: Reports: Oral Surgery Other HEENT Surgeries/Procedures: [place] teeth removal. dental extraction Cardiovascular Surgical History: Reports: None Respiratory Surgical History: Reports: None GI Surgical History: Reports: Appendectomy, Bariatric Procedure, Cholecystectomy, Colonoscopy, EGD, ERCP Other GI Surgeries/Procedures: EUS Female Surgical History: Reports: Section, Tubal Ligation Other Female Surgeries/Procedures: C-SECTIONS X3 Endocrine Surgical History: Reports: None Neurological Surgical History: Reports: Lumbar Spine Other Neurological Surgeries/Procedures: brain tumor removal Musculoskeletal Surgical History: Reports: Other (See Below) Other Musculoskeletal Surgeries/Procedures:: spinal cord stimulator implanted.; spinal fusion Other Oncologic Surgeries/Procedures: Brain tumor removal Dermatological Surgical History: Reports: None Social & Family History - Family History Family Medical History: No Pertinent Family History Cardiac: Reports: Bypass, Hypertension, [place] Respiratory: Reports: Asthma Oncologic: Reports: Colon - Tobacco Use Tobacco Use Status *Q: Never Tobacco User Second Hand Smoke Exposure: No - Caffeine Use Caffeine Use: Reports: Coffee Other Caffeine Use: 1 cup daily - Recreational Drug Use Recreational Drug Use: No - Living Situation & Occupation Living situation: Reports: , with Spouse Occupation: Unemployed ED ROS GENERAL - Review of Systems Review Of Systems: See Below Constitutional: Reports: No Symptoms HEENT: Reports: No Symptoms Respiratory: Reports: No Symptoms Cardiovascular: Reports: No Symptoms Endocrine: Reports: No Symptoms GI/Abdominal: Reports: Nausea, Vomiting. Denies: Abdominal Pain : Reports: No Symptoms Neurological: Reports: Headache. Denies: Seizure, Syncope Psychiatric: Reports: No Symptoms Hematologic/Lymphatic: Reports: No Symptoms ED EXAM, GENERAL - Physical Exam Exam: See Below Exam Limited By: No Limitations General Appearance: Alert, No Apparent Distress Eye Exam: Bilateral Eye: EOMI, Normal Inspection, PERRL Ears: Normal External Exam, Normal Canal, Hearing Grossly Normal, Normal TMs Nose: Normal Inspection, Normal Mucosa, No Blood Throat/Mouth: Normal Inspection, Normal Lips, Normal Gums, Normal Oropharynx, Normal Voice, No Airway Compromise. No: Normal Teeth (Teeth missing) Head: Atraumatic, Normocephalic, Other (Shunt site is bulging no surrounding fluid) Neck: Normal Inspection, Supple, Non-Tender, Full Range of Motion Respiratory/Chest: No Respiratory Distress, Lungs Clear, Normal Breath Sounds Cardiovascular: Regular Rate, Rhythm, No Edema, No Murmur Back Exam: Normal Inspection. No: CVA Tenderness (L), CVA Tenderness (R) Course - Vital Signs Last Recorded V/S: Last Vital Signs Temp 35.9 C L 04/09/21 08:44 Pulse 70 04/09/21 08:44 Resp 18 04/09/21 08:44 BP 124/94 H 04/09/21 08:44 Pulse Ox 100 04/09/21 08:44 - Orders/Labs/Meds Meds: Medications Discontinued Medications Generic Name Dose Route Start Last Admin Trade Name Freq PRN Reason Stop Dose Admin Diphenhydramine HCl 25 mg 04/09/21 10:17 04/09/21 10:47 Diphenhydramine 50 Mg/Ml Sdv IVPUSH 04/09/21 10:18 Not Given ONETIME ONE Diphenhydramine HCl 25 mg 04/09/21 10:46 04/09/21 10:50 Diphenhydramine 50 Mg/Ml Sdv IM 04/09/21 10:47 25 mg ONETIME ONE Administration Ondansetron HCl 4 mg 04/09/21 10:17 04/09/21 10:47 Ondansetron 4 Mg/2 Ml Sdv IVPUSH 04/09/21 10:18 Not Given ONETIME ONE Ondansetron HCl 4 mg 04/09/21 10:45 04/09/21 10:50 Ondansetron 4 Mg Tab.Dis PO 04/09/21 10:46 4 mg ONETIME ONE Administration - Re-Assessments/Exams Free Text/Narrative Re-Assessment/Exam: 04/09/21 11:[address] shows no changes with regards to her shunt or any other changes. Surgical changes noted before stable. Interestingly we called [facility] and the patient is not scheduled for surgery in fact they do not have records of the patient. When the patient was last seen here she had a story that did not work out with her neurosurgeon in [place], Dr. Jerry. Patient head CT does not show any acute changes this is pretty stable from her last several head CTs. I advised the patient the [facility] does not have a record on her. At any rate the patient is doing much better we will discharge home. 04/09/21 11:53 Apparently there was a error with her entry at the [facility]. They had the wrong birthdate. However, that does not change what we do for her at this time she is doing well and will be discharged. Departure - Departure Time of Disposition: 11:34 Disposition: Home, Self-Care 01 Clinical Impression: S/P HEEL FORMER shunt Cephalgia Qualifiers: Headache type: unspecified Headache chronicity pattern: episodic headache Intractability: not intractable Qualified Code(s): R51.9 - Headache, unspecified - Discharge Information Referrals: Farzaneh Smith MD [Primary Care Provider] - Forms: ED Department Discharge Additional Instructions: Return to the emergency room with any questions problems or worsening symptoms. Follow-up with your doctors as scheduled. Sepsis Event Note (ED) - Evaluation Sepsis Screening Result: No Definite Risk - Focused Exam Vital Signs: Vital Signs Temp Pulse Resp BP Pulse Ox 04/09/21 08:44 35.9 C L 70 18 124/94 H 100
[2021-04-09] MEDS ORDERED: Ondansetron 4 MG Tab.DIS PO ONE (10:45)
[2021-04-09] MEDS ORDERED: diphenhydrAMINE 50 MG/ML SDV IM ONE (10:46)
--- NOTE | 2021-04-09 11:00 | CT ---
Head CT Technique: Multiple axial sections through the brain were obtained. Intravenous contrast not utilized. Reconstructed coronal and sagittal images were obtained. Comparison: Prior head CT study of 02/19/21. Findings: Ventricles along with basal cisterns and sulci over the convexities appear within normal limits for the patient's age. Suboccipital craniotomy defect is noted. Right-sided stent is noted with slight diminished density seen around the stent which is stable. No ventricular dilatation is seen. No other abnormal parenchymal densities are appreciated. Soft tissue density is noted within the inferior right maxillary sinus measuring 1.5 cm compatible with retention cyst. Other visualized paranasal sinuses and mastoid sinuses are clear. No acute calvarial abnormality is appreciated. Impression: 1. Stable surgery as noted above. 2. Stable retention cyst within the right maxillary sinus. 3. Nothing acute is identified on noncontrast head CT study. Diagnostic code #2
== END 2021-04-09 11:50 | disposition home or self-care (01) ==
LOC: JD.ED 08:12
DX: R51.9 Headache, unspecified (principal); I10 Essential (primary) hypertension; E03.9 Hypothyroidism, unspecified; E66.9 Obesity, unspecified; Z68.38 Body mass index [BMI] 38.0-38.9, adult; Z98.2 Presence of cerebrospinal fluid drainage device; Z88.8 Allergy status to other drugs, medicaments and biological substances; Z79.899 Other long term (current) drug therapy; Z88.6 Allergy status to analgesic agent
CPT/HCPCS: 70450; 96372; 99284; A9270; J1200

== ENCOUNTER 2021-07-29 09:07 | Emergency (ER) | payer SELFPAY ==
[2021-07-29] MEDS ORDERED: HYDROmorphone 1 MG/ML Syringe IM ONE ×2 (10:41→11:05)
[2021-07-29] MEDS ORDERED: Ondansetron 4 MG Tab.DIS PO ONE (10:42)
[2021-07-29] MEDS ORDERED: diphenhydrAMINE 50 MG/ML SDV IM ONE (10:43)
--- NOTE | 2021-07-29 10:45 | EDM.PDOC ---
ED HPI GENERAL MEDICAL PROBLEM - General Chief Complaint: Headache Stated Complaint: HEADACHE Time Seen by Provider: 07/29/21 10:41 Source of Information: Reports: Patient, Family (spouse) History Limitations: Reports: No Limitations - History of Present Illness INITIAL COMMENTS - FREE TEXT/NARRATIVE: 45-year-old female seen in regards to a severe generalized headache that is c onstant. She reports she has had 2 brain surgeries for placement of ventriculoperitoneal shunts in the last 2 months. Both were carried out at [facility] in [facility]. Apparently the shunt keeps plugging up they believe due to high protein in her CSF which is causing worsening headaches due to intracranial hypertension. She reports at present she is having CSF ooze through her nose and out the tear ducts in her eyes which is happened many times in the past. She is awaiting further consultation with her neurosurgeon and [place] and then he plans on sending her to [facility] for further neurosurgical opinion. It is apparent that she needs some other form of ventriculoperitoneal shunt. She reports her abdominal pain is better since she is on any herbal form of pancreatic enzyme supplementation. She still has diarrhea. She is here today primarily seeking medication for headache relief. Also associated nausea and vomiting Onset: Gradual Onset Date: 07/26/21 (Headache is been terrible the last 3 days.) Duration: Day(s):, Constant Location: Reports: Head (Generalized severe headache associate with nausea vomiting and loss of vision in her right visual field) Quality: Reports: Ache, Throbbing Severity: Severe Improves with: Reports: None Worsens with: Reports: Other (Bending over makes the headache worse.) Context: Denies: Activity, Exercise, Lifting, Sick Contact, Trauma, Other Associated Symptoms: Reports: Headaches, Loss of Appetite, Malaise, Nausea/Vomiting (Nausea and vomiting). 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 below) (Lately has not been able to keep anything down.) - Related Data Allergies Allergy/AdvReac Type Severity Reaction Status Date / Time amylase [From Creon] Allergy Intermediate Rash Verified 02/19/21 10:42 lipase [From Creon] Allergy Intermediate Rash Verified 02/19/21 10:42 protease [From Creon] Allergy Intermediate Rash Verified 02/19/21 10:42 buprenorphine [From Butrans] Allergy Mild Itching Verified 02/19/21 10:42 metoclopramide HCl Allergy Mild Itching Verified 02/19/21 10:42 [From Reglan] ketorolac [From Toradol] AdvReac Intermediate Bleeding Verified 02/19/21 10:42 NSAIDS (Non-Steroidal AdvReac Mild Abdominal Verified 02/19/21 10:42 Anti-Inflamma Pain prochlorperazine AdvReac Mild Vomiting Verified 02/19/21 10:42 [From Compazine] Home Meds: Home Meds Prazosin HCl [Prazosin] 5 mg PO BEDTIME 03/14/19 [History] Vortioxetine [Trintellix] 10 mg PO DAILY 03/14/19 [History] QUEtiapine Fumarate [Quetiapine Fumarate] 75 mg PO BEDTIME 05/15/19 [History] Cholecalciferol (Vitamin D3) [Vitamin D3] 1,000 intnl unit PO DAILY 06/28/19 [History] Levothyroxine 125 mcg PO ACBREAKFAST 10/11/19 [History] Gabapentin [Neurontin] 100 mg PO QID 09/18/20 [History] Multivitamin 1 each PO DAILY 09/18/20 [History] Ondansetron [Zofran ODT] 4 mg PO ASDIRECTED PRN 04/09/21 [History] Ondansetron [Zofran] 4 mg BUCCAL Q6H PRN #15 tab 07/29/21 [Rx] oxyCODONE HCl/Acetaminophen [Percocet 10-325 mg Tablet] 1 each PO Q4H PRN #36 tablet 07/29/21 [Rx] Past Medical History HEENT History: Reports: Glaucoma, Otitis Media Cardiovascular History: Reports: Hypertension Other Cardiovascular History: tachycardia Respiratory History: Reports: None Gastrointestinal History: Reports: Hemorrhoids, Pancreatitis Other Gastrointestinal History: LUQ pain, hemorrhoids Genitourinary History: Reports: UTI, Recurrent 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 states fractured back 2x since Jul 2020. States fusion x 2 to lower back. Pt does have a long scar down lower back Neurological History: Reports: Other (See Below) Other Neuro History: pseudotumor, shunt, benign pineal brain tumor, memory loss, seizure disorder, vertigo, brain surgery x 16 Psychiatric History: Reports: Addiction, Anxiety, Depression Endocrine/Metabolic History: Reports: Hypothyroidism, Obesity/BMI 30+, Vitamin D Deficiency, Other (See Below) Other Endocrine/Metabolic History: hyperthyroidism, hypothyroidism, hashimotos, secondary adrenal insufficiency Hematologic History: Reports: Anemia, Iron Deficiency Other Hematologic History: anti TPO antibody Immunologic History: Reports: None Dermatologic History: Reports: Cellulitis - Infectious Disease History Infectious Disease History: Reports: MRSA Other Infectious Disease History: in 2006, 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." - Past Surgical History Head Surgeries/Procedures: Reports: Shunt, Other (See Below) HEENT Surgical History: Reports: Oral Surgery Other HEENT Surgeries/Procedures: [place] teeth removal. dental extraction Cardiovascular Surgical History: Reports: None Respiratory Surgical History: Reports: None GI Surgical History: Reports: Appendectomy, Bariatric Procedure, Cholecystectomy, Colonoscopy, EGD, ERCP Other GI Surgeries/Procedures: EUS Female Surgical History: Reports: Section, Tubal Ligation Other Female Surgeries/Procedures: C-SECTIONS X3 Endocrine Surgical History: Reports: None Neurological Surgical History: Reports: Lumbar Spine Other Neurological Surgeries/Procedures: brain tumor removal Musculoskeletal Surgical History: Reports: Other (See Below) Other Musculoskeletal Surgeries/Procedures:: spinal cord stimulator implanted.; spinal fusion Other Oncologic Surgeries/Procedures: Brain tumor removal Dermatological Surgical History: Reports: None Social & Family History - Family History Family Medical History: No Pertinent Family History Cardiac: Reports: Bypass, Hypertension, [place] Respiratory: Reports: Asthma Oncologic: Reports: Colon - Caffeine Use Caffeine Use: Reports: Coffee Other Caffeine Use: 1 cup daily - Living Situation & Occupation Living situation: Reports: , with Spouse Occupation: Unemployed ED ROS GENERAL - Review of Systems Review Of Systems: See Below Constitutional: Reports: Malaise, Fatigue, Decreased Appetite. Denies: Fever, Chills HEENT: Reports: Vision Change (Blurred vision and loss of vision in the right visual field operator with the severe headaches.) Respiratory: Reports: No Symptoms Cardiovascular: Reports: Blood Pressure Problem Endocrine: Reports: Fatigue GI/Abdominal: Reports: Abdominal Pain (Occasional epigastric upper abdominal pain), Diarrhea (Persistent diarrhea) : Reports: No Symptoms Musculoskeletal: Reports: Neck Pain, Back Pain Skin: Reports: No Symptoms Neurological: Reports: Dizziness, Headache, Difficulty Walking (Has to be careful how she walks that she can lose her balance very easily), Weakness. Denies: Confusion, Numbness, Syncope, Tingling Psychiatric: Reports: Depression (Suicidal thoughts almost on a daily basis with no definitive plan) Hematologic/Lymphatic: Reports: No Symptoms Immunologic: Reports: No Symptoms - Physical Exam Exam: See Below Exam Limited By: No Limitations General Appearance: Alert, WD/WN, Mild Distress, Other Eye Exam: Bilateral Eye: Normal Inspection (No blepharal pallor or scleral icterus), PERRL Throat/Mouth: Normal Inspection, Normal Lips, Normal Oropharynx Head Exam: Atraumatic, Normocephalic, Other (Patient has multiple bur holes both sides of her head and missing a good portion of her left occipital bone clinically. She has a ventriculoperitoneal shunt present on the left side of her head most easily palpable behind her left ear and slightly superior to the ear.) Neck: Limited Range of Motion (Loss of 10 flexion and extension). No: Supple, Lymphadenopathy (L) ( and lateral rotation bilaterally), Lymphadenopathy (R) Respiratory/Chest: No Respiratory Distress, Lungs Clear, Normal Breath Sounds, No Accessory Muscle Use Cardiovascular: Normal Peripheral Pulses, Regular Rate, Rhythm, No Edema, No Murmur, No Rub GI/Abdominal: Normal Bowel Sounds, Soft, Non-Tender, No Organomegaly Extremities: Normal Inspection, Normal Range of Motion, Non-Tender, No Pedal Edema Psychiatric: Normal Affect, Normal Mood Skin Exam: Warm, Dry, Intact, Normal Color, No Rash Course - Orders/Labs/Meds Meds: Medications Discontinued Medications Generic Name Dose Route Start Last Admin Trade Name Freq PRN Reason Stop Dose Admin Diphenhydramine HCl 50 mg 07/29/21 10:43 07/29/21 10:58 Diphenhydramine 50 Mg/Ml Sdv IM 07/29/21 10:44 50 mg ONETIME ONE Administration Hydromorphone HCl 2 mg 07/29/21 10:41 07/29/21 11:00 Hydromorphone 1 Mg/Ml Syringe IM 07/29/21 10:42 2 mg ONETIME ONE Administration Hydromorphone HCl 2 mg 07/29/21 11:05 07/29/21 11:21 Hydromorphone 1 Mg/Ml Syringe IM 07/29/21 11:06 Not Given ONETIME ONE Lorazepam 1 mg 07/29/21 10:47 07/29/21 10:57 Lorazepam 2 Mg/Ml Sdv IM 07/29/21 10:48 1 mg ONETIME ONE Administration Ondansetron HCl 4 mg 07/29/21 10:42 07/29/21 10:57 Ondansetron 4 Mg Tab.Dis PO 07/29/21 10:43 4 mg ONETIME ONE Administration - Radiology Interpretation Free Text/Narrative:: 45-year-old female presents to the ED primarily for analgesia. She is a severe headache gradually worsening over the last 3 days felt to be secondary to occlusion of her left ventriculoperitoneal shunt which is a second shunt placed in the last 8 weeks by [facility] in [facility]. Patient has a history of benign intracranial hypertension for which several shunts of failed in the past and some have had to be removed secondary to MRSA infection. They feel that the amount of protein in her cerebrospinal fluid is causing occlusion of the filters in the CSF drains. The plan is to send her to [facility] for further neurosurgical evaluation and treatment. At present it is of concern that she is lost vision in her right eye likely due to intracranial hypertension. They recognize that there is nothing that I can do for her at this time in this regard. They plan on following up with the neurosurgeon in [place] as soon as possible. Patient has had a severe adverse effect to acetazolamide in the past. Plan she will be given 2 mg of Dilaudid IM as she has used this dose many times in the past. Benadryl 50 mg and Ativan 1 mg IM as well. Zofran 4 mg sublingual. I will write a prescription for Zofran sublingual tablets 4 mg strength x15 to be used one every 4 hours. For nausea relief. Percocet 10 325 mg strength 1 tablet every 4 hours as needed for relief of headache pain until she can follow-up with her primary care doctor. 24 tablets provided Departure - Departure Time of Disposition: 11:21 Disposition: Home, Self-Care 01 Condition: Fair Clinical Impression: Pseudotumor cerebri syndrome Obstructed ventriculoperitoneal shunt Qualifiers: Encounter type: initial encounter Qualified Code(s): T85.09XA - Other mechanical complication of ventricular intracranial (communicating) shunt, initial encounter - Discharge Information *PRESCRIPTION DRUG MONITORING PROGRAM REVIEWED*: Not Applicable *COPY OF PRESCRIPTION DRUG MONITORING REPORT IN PATIENT ALE: Not Applicable Prescriptions: oxyCODONE HCl/Acetaminophen [Percocet 10-325 mg Tablet] 1 each PO Q4H PRN #36 tablet PRN Reason: Intracranial hypertension Ondansetron [Zofran] 4 mg BUCCAL Q6H PRN #15 tab PRN Reason: nausea or vomiting Instructions: Pseudotumor Cerebri Referrals: Dorian Kumar MD [Primary Care Provider] - Forms: ED Department Discharge Additional Instructions: Evaluation in the ER today in regards to failed ventriculoperitoneal shunt for the second time in the last 2 months likely due to protein occlusion of the filters. Evidence of increased intracranial pressure with cerebral spinal fluid coming out of your eyes and nose. Associated constant headache with loss of vision right eye due to intracranial hypertension. You will have to follow-up with neurosurgery in [place] as soon as possible. Today you were given intramuscular injection of Dilaudid 2 mg with Ativan 1 mg and Zofran 4 mg sublingual and 50 mg of Benadryl IM for headache relief. This will last only about 4 to 6 hours at most. Prescription written for Percocet tabs 10 325 mg strength 1 tablet every 4 hours as necessary for headache relief with Zofran 4 mg sublingual every 4-6 hours necessary for nausea relief.
[2021-07-29] MEDS ORDERED: LORazepam 2 MG/ML SDV IM ONE (10:47)
[2021-07-29 16:54] VITALS: BP 139/94; PULSE 76
== END 2021-07-29 11:34 | disposition home or self-care (01) ==
LOC: JD.ED 09:07
DX: G93.2 Benign intracranial hypertension (principal); T85.09XA Other mechanical complication of ventricular intracranial (communicating) shunt, initial encounter; Z88.8 Allergy status to other drugs, medicaments and biological substances; I10 Essential (primary) hypertension; E03.9 Hypothyroidism, unspecified; Z79.899 Other long term (current) drug therapy
CPT/HCPCS: 96372; 99283; A9270; J1170; J1200; J2060; 99284

== ENCOUNTER 2021-08-09 09:07 | Emergency (ER) | payer SELFPAY ==
[2021-08-09 09:33] VITALS: BP 150/95; PULSE 68
[2021-08-09] MEDS ORDERED: HYDROmorphone 1 MG/ML Syringe IM ONE (10:32)
[2021-08-09] MEDS ORDERED: Promethazine 25 MG/ML SDV IM ONE (10:32)
--- NOTE | 2021-08-09 11:14 | EDM.PDOC ---
ED HPI GENERAL MEDICAL PROBLEM - General Chief Complaint: Headache Stated Complaint: HEADACHE Time Seen by Provider: 08/09/21 10:19 Source of Information: Reports: Patient, RN Notes Reviewed - History of Present Illness INITIAL COMMENTS - FREE TEXT/NARRATIVE: 45 yr old female comes in with severe Darden. She has hx of 2 surgeries for placement of ventriculoperitoneal shunts in the past 2 to 3 months at [place]. She continues to have severe Darden's in spite of that. Their is a plan to refer her to a "higher level specialist" in [place], still awaiting word of when to go. She has had some nausea and vomiting. No balance, speech or focal weakness difficulty. Headache Pain Score (Numeric/FACES): 10 - Related Data Allergies Allergy/AdvReac Type Severity Reaction Status Date / Time amylase [From Creon] Allergy Intermediate Rash Verified 08/09/21 09:33 lipase [From Creon] Allergy Intermediate Rash Verified 08/09/21 09:33 protease [From Creon] Allergy Intermediate Rash Verified 08/09/21 09:33 buprenorphine [From Butrans] Allergy Mild Itching Verified 08/09/21 09:33 metoclopramide HCl Allergy Mild Itching Verified 08/09/21 09:33 [From Reglan] ketorolac [From Toradol] AdvReac Intermediate Bleeding Verified 08/09/21 09:33 NSAIDS (Non-Steroidal AdvReac Mild Abdominal Verified 08/09/21 09:33 Anti-Inflamma Pain prochlorperazine AdvReac Mild Vomiting Verified 08/09/21 09:33 [From Compazine] Home Meds: Home Meds Prazosin HCl [Prazosin] 5 mg PO BEDTIME 03/14/19 [History] Vortioxetine [Trintellix] 10 mg PO DAILY 03/14/19 [History] QUEtiapine Fumarate [Quetiapine Fumarate] 75 mg PO BEDTIME 05/15/19 [History] Cholecalciferol (Vitamin D3) [Vitamin D3] 1,000 intnl unit PO DAILY 06/28/19 [History] Levothyroxine 125 mcg PO ACBREAKFAST 10/11/19 [History] Gabapentin [Neurontin] 100 mg PO QID 09/18/20 [History] Multivitamin 1 each PO DAILY 09/18/20 [History] Ondansetron [Zofran ODT] 4 mg PO ASDIRECTED PRN 05/25/21 [History] Ondansetron [Zofran] 4 mg BUCCAL Q6H PRN #15 tab 07/29/21 [Rx] oxyCODONE HCl/Acetaminophen [Percocet 10-325 mg Tablet] 1 each PO Q4H PRN #36 tablet 07/29/21 [Rx] Past Medical History HEENT History: Reports: Glaucoma, Otitis Media Cardiovascular History: Reports: Hypertension Other Cardiovascular History: tachycardia Respiratory History: Reports: None Gastrointestinal History: Reports: Hemorrhoids, Pancreatitis Other Gastrointestinal History: LUQ pain, hemorrhoids Genitourinary History: Reports: UTI, Recurrent 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 states fractured back 2x since Jul 2020. States fusion x 2 to lower back. Pt does have a long scar down lower back Neurological History: Reports: Other (See Below) Other Neuro History: pseudotumor, shunt, benign pineal brain tumor, memory loss, seizure disorder, vertigo, brain surgery x 16 Psychiatric History: Reports: Addiction, Anxiety, Depression Endocrine/Metabolic History: Reports: Hypothyroidism, Obesity/BMI 30+, Vitamin D Deficiency, Other (See Below) Other Endocrine/Metabolic History: hyperthyroidism, hypothyroidism, hashimotos, secondary adrenal insufficiency Hematologic History: Reports: Anemia, Iron Deficiency Other Hematologic History: anti TPO antibody Immunologic History: Reports: None Dermatologic History: Reports: Cellulitis - Infectious Disease History Infectious Disease History: Reports: Chicken Pox, MRSA Other Infectious Disease History: in 2006, 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." - Past Surgical History Head Surgeries/Procedures: Reports: Shunt, Other (See Below) HEENT Surgical History: Reports: Oral Surgery Other HEENT Surgeries/Procedures: [place] teeth removal. dental extraction Cardiovascular Surgical History: Reports: None Respiratory Surgical History: Reports: None GI Surgical History: Reports: Appendectomy, Bariatric Procedure, Cholecystectomy, Colonoscopy, EGD, ERCP Other GI Surgeries/Procedures: EUS Female Surgical History: Reports: Section, Tubal Ligation Other Female Surgeries/Procedures: C-SECTIONS X3 Endocrine Surgical History: Reports: None Neurological Surgical History: Reports: Lumbar Spine Other Neurological Surgeries/Procedures: brain tumor removal Musculoskeletal Surgical History: Reports: Other (See Below) Other Musculoskeletal Surgeries/Procedures:: spinal cord stimulator implanted.; spinal fusion Other Oncologic Surgeries/Procedures: Brain tumor removal Dermatological Surgical History: Reports: None Social & Family History - Family History Family Medical History: No Pertinent Family History Cardiac: Reports: Bypass, Hypertension, [place] Respiratory: Reports: Asthma Oncologic: Reports: Colon - Tobacco Use Tobacco Use Status *Q: Never Tobacco User Second Hand Smoke Exposure: No - Caffeine Use Caffeine Use: Reports: None Other Caffeine Use: 1 cup daily - Recreational Drug Use Recreational Drug Use: No - Living Situation & Occupation Living situation: Reports: , with Spouse Occupation: Unemployed ED ROS GENERAL - Review of Systems Review Of Systems: See Below Constitutional: Denies: Fever, Chills, Diaphoresis HEENT: Denies: Sinus Problem, Throat Pain, Vertigo Respiratory: Denies: Shortness of Breath, Cough Cardiovascular: Denies: Chest Pain GI/Abdominal: Reports: Nausea, Vomiting Musculoskeletal: Denies: Neck Pain, Shoulder Pain, Back Pain Skin: Denies: Rash Neurological: Reports: Headache - Physical Exam Exam: See Below General Appearance: Alert, Mild Distress Eye Exam: Bilateral Eye: PERRL Throat/Mouth: Normal Inspection Head Exam: Atraumatic Neck: Supple Respiratory/Chest: No Respiratory Distress, Lungs Clear, Normal Breath Sounds Cardiovascular: Regular Rate, Rhythm Neuro Exam (Abbreviated): Alert, Oriented, No Motor/Sensory Deficits, Other (finger to nose testing without difficulty) Extremities: Normal Inspection, Normal Range of Motion Skin Exam: Warm, Dry Course - Vital Signs Last Recorded V/S: Last Vital Signs Temp 97.7 F 08/09/21 09:28 Pulse 68 08/09/21 09:28 Resp 16 08/09/21 09:28 BP 150/95 H 08/09/21 09:28 Pulse Ox 99 08/09/21 09:28 - Orders/Labs/Meds Meds: Medications Discontinued Medications Generic Name Dose Route Start Last Admin Trade Name Jean-Pierreq PRN Reason Stop Dose Admin Hydromorphone HCl 2 mg 08/09/21 10:32 08/09/21 10:41 Hydromorphone 1 Mg/Ml Syringe IM 08/09/21 10:33 2 mg ONETIME ONE Administration Promethazine HCl 25 mg 08/09/21 10:32 09/24/21 10:40 Promethazine 25 Mg/Ml Sdv IM 08/09/21 10:33 25 mg ONETIME ONE Administration - Re-Assessments/Exams Free Text/Narrative Re-Assessment/Exam: 08/09/21 19:34 Feeling better at time of discharge. Departure - Departure Time of Disposition: 11:13 Disposition: Home, Self-Care 01 Condition: Fair Clinical Impression: Headache Qualifiers: Headache type: unspecified Headache chronicity pattern: unspecified pattern In tractability: not intractable Qualified Code(s): R51.9 - Headache, unspecified - Discharge Information Instructions: General Headache Without Cause, [id number] Referrals: Karen Singleton MD [Primary Care Provider] - Forms: ED Department Discharge Additional Instructions: Rest. Continue current meds. Pursue referral to [place] as discussed. Call or see your [facility] providers as needed. Sepsis Event Note (ED) - Evaluation Sepsis Screening Result: No Definite Risk - Focused Exam Vital Signs: Vital Signs Temp Pulse Resp BP Pulse Ox 08/09/21 09:28 97.7 F 68 16 150/95 H 99
== END 2021-08-09 11:45 | disposition home or self-care (01) ==
LOC: JD.ED 09:07
DX: R51.9 Headache, unspecified (principal); I10 Essential (primary) hypertension; E03.9 Hypothyroidism, unspecified; E66.9 Obesity, unspecified; Z68.36 Body mass index [BMI] 36.0-36.9, adult; Z88.6 Allergy status to analgesic agent; Z88.8 Allergy status to other drugs, medicaments and biological substances
CPT/HCPCS: 96372; 99283; J1170; J2550

== ENCOUNTER 2021-08-30 16:36 | Emergency (ER) | payer BC | END 2021-08-30 18:00 | disposition left against medical advice (07) | LOC: JD.ED 16:36 | DX: R51.9 Headache, unspecified (principal); Z53.21 Procedure and treatment not carried out due to patient leaving prior to being seen by health care provider ==

== ENCOUNTER 2021-09-16 08:43 | Emergency (ER) | payer BC ==
[2021-09-16 09:03] VITALS: BP 176/117; PULSE 83
--- NOTE | 2021-09-16 09:25 | EDM.PDOC ---
ED HPI GENERAL MEDICAL PROBLEM - General Chief Complaint: Headache Stated Complaint: CHEST PAIN Time Seen by Provider: 09/16/21 09:11 Source of Information: Reports: Patient, RN Notes Reviewed - History of Present Illness INITIAL COMMENTS - FREE TEXT/NARRATIVE: 46 yr old female comes in with Darden. Hx chronic hx, reported to have a plugged shunt. nausea, not actively vomiting. No fever, chills. Had some mild chest discomfort but that is gone. Headache Pain Score (Numeric/FACES): 8 - Related Data Allergies Allergy/AdvReac Type Severity Reaction Status Date / Time amylase [From Creon] Allergy Intermediate Rash Verified 09/16/21 09:03 lipase [From Creon] Allergy Intermediate Rash Verified 09/16/21 09:03 protease [From Creon] Allergy Intermediate Rash Verified 09/16/21 09:03 buprenorphine [From Butrans] Allergy Mild Itching Verified 09/16/21 09:03 metoclopramide HCl Allergy Mild Itching Verified 09/16/21 09:03 [From Reglan] ketorolac [From Toradol] AdvReac Intermediate Bleeding Verified 09/16/21 09:03 NSAIDS (Non-Steroidal AdvReac Mild Abdominal Verified 09/16/21 09:03 Anti-Inflamma Pain prochlorperazine AdvReac Mild Vomiting Verified 09/16/21 09:03 [From Compazine] Home Meds: Home Meds Prazosin HCl [Prazosin] 5 mg PO BEDTIME 03/14/19 [History] Vortioxetine [Trintellix] 10 mg PO DAILY 03/14/19 [History] QUEtiapine Fumarate [Quetiapine Fumarate] 75 mg PO BEDTIME 05/15/19 [History] Cholecalciferol (Vitamin D3) [Vitamin D3] 1,000 intnl unit PO DAILY 06/28/19 [History] Levothyroxine 125 mcg PO ACBREAKFAST 10/11/19 [History] Gabapentin [Neurontin] 100 mg PO QID 09/18/20 [History] Multivitamin 1 each PO DAILY 09/18/20 [History] Ondansetron [Zofran ODT] 4 mg PO ASDIRECTED PRN 04/09/21 [History] Ondansetron [Zofran] 4 mg BUCCAL Q6H PRN #15 tab 07/29/21 [Rx] oxyCODONE HCl/Acetaminophen [Percocet 10-325 mg Tablet] 1 each PO Q4H PRN #36 tablet 07/29/21 [Rx] Past Medical History HEENT History: Reports: Glaucoma, Otitis Media Cardiovascular History: Reports: Hypertension Other Cardiovascular History: tachycardia Respiratory History: Reports: None Gastrointestinal History: Reports: Hemorrhoids, Pancreatitis Other Gastrointestinal History: LUQ pain, hemorrhoids Genitourinary History: Reports: UTI, Recurrent CUSTOMER LIAISON History: Reports: Other CUSTOMER LIAISON History: c section x3, tubes tied Musculoskeletal History: Reports: Arthritis, Back Pain, Chronic, Fracture, Other (See Below) Other Musculoskeletal History: left foot fracture, elbow pain, wrist pain, weakness, falls. states fractured back 2x since Jul 2020. States fusion x 2 to lower back. Pt does have a long scar down lower back Neurological History: Reports: Other (See Below) Other Neuro History: pseudotumor, shunt, benign pineal brain tumor, memory loss, seizure disorder, vertigo, brain surgery x 16 Psychiatric History: Reports: Addiction, Anxiety, Depression Endocrine/Metabolic History: Reports: Hypothyroidism, Obesity/BMI 30+, Vitamin D Deficiency, Other (See Below) Other Endocrine/Metabolic History: hyperthyroidism, hypothyroidism, hashimotos, secondary adrenal insufficiency Hematologic History: Reports: Anemia, Iron Deficiency Other Hematologic History: anti TPO antibody Immunologic History: Reports: None Dermatologic History: Reports: Cellulitis - Infectious Disease History Infectious Disease History: Reports: Chicken Pox, MRSA Other Infectious Disease History: in 2006, 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." - Past Surgical History Head Surgeries/Procedures: Reports: Shunt, Other (See Below) HEENT Surgical History: Reports: Oral Surgery Other HEENT Surgeries/Procedures: [place] teeth removal. dental extraction Cardiovascular Surgical History: Reports: None Respiratory Surgical History: Reports: None GI Surgical History: Reports: Appendectomy, Bariatric Procedure, Cholecystectomy, Colonoscopy, EGD, ERCP Other GI Surgeries/Procedures: EUS Female Surgical History: Reports: Section, Tubal Ligation Other Female Surgeries/Procedures: C-SECTIONS X3 Endocrine Surgical History: Reports: None Neurological Surgical History: Reports: Lumbar Spine Other Neurological Surgeries/Procedures: brain tumor removal Musculoskeletal Surgical History: Reports: Other (See Below) Other Musculoskeletal Surgeries/Procedures:: spinal cord stimulator implanted.; spinal fusion Other Oncologic Surgeries/Procedures: Brain tumor removal Dermatological Surgical History: Reports: None Social & Family History - Family History Family Medical History: No Pertinent Family History Cardiac: Reports: Bypass, Hypertension, [place] Respiratory: Reports: Asthma Oncologic: Reports: Colon - Tobacco Use Tobacco Use Status *Q: Never Tobacco User - Caffeine Use Caffeine Use: Reports: None Other Caffeine Use: 1 cup daily - Living Situation & Occupation Living situation: Reports: , with Spouse Occupation: Unemployed ED ROS GENERAL - Review of Systems Review Of Systems: See Below Constitutional: Denies: Fever, Chills HEENT: Reports: No Symptoms Respiratory: Reports: No Symptoms Cardiovascular: Reports: Chest Pain (gone) GI/Abdominal: Reports: Nausea, Vomiting. Denies: Abdominal Pain Musculoskeletal: Denies: Back Pain Skin: Denies: Rash Neurological: Reports: Headache. Denies: Numbness, Tingling, Trouble Speaking, Difficulty Walking, Weakness - Physical Exam Exam: See Below General Appearance: Alert, Mild Distress Eye Exam: Bilateral Eye: PERRL Head Exam: Atraumatic Neck: Supple Respiratory/Chest: No Respiratory Distress, Lungs Clear, Normal Breath Sounds Cardiovascular: Regular Rate, Rhythm GI/Abdominal: Non-Tender Neuro Exam (Abbreviated): Alert, Oriented, No Motor/Sensory Deficits, Other (no drift, finger to nose nl) Extremities: Normal Inspection, Normal Range of Motion Skin Exam: Warm, Dry, Normal Color Course - Vital Signs Last Recorded V/S: Last Vital Signs Temp 98.2 F 09/16/21 08:59 Pulse 83 09/16/21 08:59 Resp 18 09/16/21 08:59 BP 176/117 H 09/16/21 08:59 Pulse Ox 97 09/16/21 08:59 - Orders/Labs/Meds Meds: Medications Discontinued Medications Generic Name Dose Route Start Last Admin Trade Name Dominic PRN Reason Stop Dose Admin Hydromorphone HCl 2 mg 09/16/21 09:26 09/16/21 09:37 Hydromorphone 1 Mg/Ml Syringe IM 09/16/21 09:27 2 mg ONETIME ONE Administration Promethazine HCl 25 mg 09/16/21 09:27 09/16/21 09:38 Promethazine 25 Mg/Ml Sdv IM 09/16/21 09:28 25 mg ONETIME ONE Administration Departure - Departure Time of Disposition: 09:54 Disposition: Home, Self-Care 01 Condition: Fair Clinical Impression: Headache Qualifiers: Headache type: unspecified Headache chronicity pattern: unspecified pattern Intractability: not intractable Qualified Code(s): R51.9 - Headache, unspecified - Discharge Information Instructions: Chronic Migraine Headache, [id number] Referrals: Farzaneh Smith MD [Primary Care Provider] - Forms: ED Department Discharge Additional Instructions: Rest with head elevated as much as possible. Continue current meds. Follow up [place] as planned. Sepsis Event Note (ED) - Evaluation Sepsis Screening Result: No Definite Risk - Focused Exam Vital Signs: Vital Signs Temp Pulse Resp BP Pulse Ox 09/16/21 08:59 98.2 F 83 18 176/117 H 97
[2021-09-16] MEDS ORDERED: HYDROmorphone 1 MG/ML Syringe IM ONE (09:26)
[2021-09-16] MEDS ORDERED: Promethazine 25 MG/ML SDV IM ONE (09:27)
== END 2021-09-16 10:30 | disposition home or self-care (01) ==
LOC: JD.ED 08:43
DX: R51.9 Headache, unspecified (principal); I10 Essential (primary) hypertension; E03.9 Hypothyroidism, unspecified; E66.9 Obesity, unspecified; Z68.30 Body mass index [BMI] 30.0-30.9, adult; Z88.6 Allergy status to analgesic agent; Z88.8 Allergy status to other drugs, medicaments and biological substances; Z79.899 Other long term (current) drug therapy
CPT/HCPCS: 96372; 99283; J1170; J2550

== ENCOUNTER 2021-09-19 17:01 | Emergency (ER) | payer BC ==
[2021-09-19] MEDS ORDERED: HYDROmorphone 1 MG/ML Syringe IM ONE (17:57)
[2021-09-19] MEDS ORDERED: Promethazine 25 MG/ML SDV IM ONE (17:58)
--- NOTE | 2021-09-19 18:53 | EDM.PDOC ---
ED HPI GENERAL MEDICAL PROBLEM - General Chief Complaint: Neurological Problem Stated Complaint: SHUNT NOT WORKING Time Seen by Provider: 09/19/21 17:20 Source of Information: Reports: Patient, RN Notes Reviewed - History of Present Illness INITIAL COMMENTS - FREE TEXT/NARRATIVE: 46 yr old female comes in with Darden, similar to many prior recent visits. She states she is finally scheduled for some type of neuro shunt procedure next in [place]. States she has a ride to get home. Right Head Pain Score (Numeric/FACES): 7 - Related Data Allergies Allergy/AdvReac Type Severity Reaction Status Date / Time amylase [From Creon] Allergy Intermediate Rash Verified 09/16/21 09:03 lipase [From Creon] Allergy Intermediate Rash Verified 09/16/21 09:03 protease [From Creon] Allergy Intermediate Rash Verified 09/16/21 09:03 buprenorphine [From Butrans] Allergy Mild Itching Verified 09/16/21 09:03 metoclopramide HCl Allergy Mild Itching Verified 09/16/21 09:03 [From Reglan] ketorolac [From Toradol] AdvReac Intermediate Bleeding Verified 09/16/21 09:03 NSAIDS (Non-Steroidal AdvReac Mild Abdominal Verified 09/16/21 09:03 Anti-Inflamma Pain prochlorperazine AdvReac Mild Vomiting Verified 09/16/21 09:03 [From Compazine] Home Meds: Home Meds Prazosin HCl [Prazosin] 5 mg PO BEDTIME 03/14/19 [History] Vortioxetine [Trintellix] 10 mg PO DAILY 03/14/19 [History] QUEtiapine Fumarate [Quetiapine Fumarate] 75 mg PO BEDTIME 05/15/19 [History] Cholecalciferol (Vitamin D3) [Vitamin D3] 1,000 intnl unit PO DAILY 06/28/19 [History] Levothyroxine 125 mcg PO ACBREAKFAST 10/11/19 [History] Gabapentin [Neurontin] 100 mg PO QID 09/18/20 [History] Multivitamin 1 each PO DAILY 09/18/20 [History] Ondansetron [Zofran ODT] 4 mg PO ASDIRECTED PRN 04/09/21 [History] Ondansetron [Zofran] 4 mg BUCCAL Q6H PRN #15 tab 07/29/21 [Rx] oxyCODONE HCl/Acetaminophen [Percocet 10-325 mg Tablet] 1 each PO Q4H PRN #36 tablet 07/29/21 [Rx] Past Medical History HEENT History: Reports: Glaucoma, Otitis Media Cardiovascular History: Reports: Hypertension Other Cardiovascular History: tachycardia Respiratory History: Reports: None Gastrointestinal History: Reports: Hemorrhoids, Pancreatitis Other Gastrointestinal History: LUQ pain, hemorrhoids Genitourinary History: Reports: UTI, Recurrent LEAN MANAGER History: Reports: Other LEAN MANAGER History: c section x3, tubes tied Musculoskeletal History: Reports: Arthritis, Back Pain, Chronic, Fracture, Other (See Below) Other Musculoskeletal History: left foot fracture, elbow pain, wrist pain, weakness, falls. states fractured back 2x since Jul 2020. States fusion x 2 to lower back. Pt does have a long scar down lower back Neurological History: Reports: Other (See Below) Other Neuro History: pseudotumor, shunt, benign pineal brain tumor, memory loss, seizure disorder, vertigo, brain surgery x 16 Psychiatric History: Reports: Addiction, Anxiety, Depression Endocrine/Metabolic History: Reports: Hypothyroidism, Obesity/BMI 30+, Vitamin D Deficiency, Other (See Below) Other Endocrine/Metabolic History: hyperthyroidism, hypothyroidism, hashimotos, secondary adrenal insufficiency Hematologic History: Reports: Anemia, Iron Deficiency Other Hematologic History: anti TPO antibody Immunologic History: Reports: None Dermatologic History: Reports: Cellulitis - Infectious Disease History Infectious Disease History: Reports: Chicken Pox, MRSA Other Infectious Disease History: in 2006, 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." - Past Surgical History Head Surgeries/Procedures: Reports: Shunt, Other (See Below) HEENT Surgical History: Reports: Oral Surgery Other HEENT Surgeries/Procedures: [place] teeth removal. dental extraction Cardiovascular Surgical History: Reports: None Respiratory Surgical History: Reports: None GI Surgical History: Reports: Appendectomy, Bariatric Procedure, Cholecystectomy, Colonoscopy, EGD, ERCP Other GI Surgeries/Procedures: EUS Female Surgical History: Reports: Section, Tubal Ligation Other Female Surgeries/Procedures: C-SECTIONS X3 Endocrine Surgical History: Reports: None Neurological Surgical History: Reports: Lumbar Spine Other Neurological Surgeries/Procedures: brain tumor removal Musculoskeletal Surgical History: Reports: Other (See Below) Other Musculoskeletal Surgeries/Procedures:: spinal cord stimulator implanted.; spinal fusion Other Oncologic Surgeries/Procedures: Brain tumor removal Dermatological Surgical History: Reports: None Social & Family History - Family History Family Medical History: No Pertinent Family History Cardiac: Reports: Bypass, Hypertension, [place] Respiratory: Reports: Asthma Oncologic: Reports: Colon - Tobacco Use Tobacco Use Status *Q: Never Tobacco User - Caffeine Use Caffeine Use: Reports: Soda Other Caffeine Use: 1 cup daily - Recreational Drug Use Recreational Drug Use: No - Living Situation & Occupation Living situation: Reports: , with Spouse Occupation: Unemployed ED ROS GENERAL - Review of Systems Review Of Systems: See Below Constitutional: Denies: Fever, Chills, Diaphoresis HEENT: Reports: No Symptoms Respiratory: Denies: Shortness of Breath, Cough Cardiovascular: Denies: Chest Pain GI/Abdominal: Reports: Nausea, Vomiting (occasional). Denies: Abdominal Pain Skin: Denies: Rash Neurological: Reports: Headache. Denies: Numbness, Tingling, Trouble Speaking, Difficulty Walking, Weakness - Physical Exam Exam: See Below General Appearance: Alert, Mild Distress Eye Exam: Bilateral Eye: PERRL Head Exam: Atraumatic Neck: Supple Respiratory/Chest: No Respiratory Distress, Lungs Clear, Normal Breath Sounds Cardiovascular: Regular Rate, Rhythm Neuro Exam (Abbreviated): Alert, Oriented, No Motor/Sensory Deficits, Other (No drift, finger to nose normal) Extremities: Normal Inspection, Normal Range of Motion Course - Vital Signs Last Recorded V/S: Last Vital Signs Temp 98.0 F 09/19/21 19:00 Pulse 88 09/19/21 19:00 Resp 16 09/19/21 19:00 BP 158/101 H 09/19/21 19:00 Pulse Ox 97 09/19/21 19:00 - Orders/Labs/Meds Meds: Medications Discontinued Medications Generic Name Dose Route Start Last Admin Trade Name Jean-Pierreq PRN Reason Stop Dose Admin Hydromorphone HCl 2 mg 09/19/21 17:57 09/19/21 18:12 Hydromorphone 1 Mg/Ml Syringe IM 09/19/21 17:58 2 mg ONETIME ONE Administration Promethazine HCl 25 mg 09/19/21 17:58 09/19/21 18:14 Promethazine 25 Mg/Ml Sdv IM 09/19/21 17:59 25 mg ONETIME ONE Administration Departure - Departure Time of Disposition: 18:51 Disposition: Home, Self-Care 01 Condition: Fair Clinical Impression: Headache Qualifiers: Headache type: unspecified Headache chronicity pattern: unspecified pattern Intractability: not intractable Qualified Code(s): R51.9 - Headache, unspecified - Discharge Information Instructions: Migraine Headache, [id number] Referrals: Farzaneh Smith MD [Primary Care Provider] - Forms: ED Department Discharge Additional Instructions: You have been given sedative medication here in the ED. Do not drive until tomorrow. Get the planned specialty care in [place] next week as planned.
[2021-09-19 19:07] VITALS: BP 158/101; PULSE 88
== END 2021-09-19 19:00 | disposition home or self-care (01) ==
LOC: JD.ED 17:01
DX: R51.9 Headache, unspecified (principal); I10 Essential (primary) hypertension; E03.9 Hypothyroidism, unspecified; E66.9 Obesity, unspecified; Z68.38 Body mass index [BMI] 38.0-38.9, adult; Z88.8 Allergy status to other drugs, medicaments and biological substances; Z79.899 Other long term (current) drug therapy
CPT/HCPCS: 96372; 99283; J1170; J2550

== ENCOUNTER 2021-09-25 09:00 | Emergency (ER) | payer BC ==
[2021-09-25 09:30] VITALS: BP 173/114; PULSE 97
[2021-09-25] MEDS ORDERED: Morphine 4 MG/ML Syringe IVPUSH ONE (09:56)
[2021-09-25] MEDS ORDERED: Ondansetron 4 MG/2 ML SDV IVPUSH ONE (09:56)
--- NOTE | 2021-09-25 10:50 | CT ---
Head CT Technique: Multiple axial sections through the brain were obtained. Intravenous contrast was not utilized. Reconstructed coronal and sagittal images were obtained. Comparison: Prior head CT study of 04/09/21. Findings: Ventricles along with basal cisterns and sulci over the convexities are within normal limits for the patient's age. Minimal diminished density is noted within the left basal ganglia which is stable from prior head CT study and therefore incidental. Shunt catheter is in place with mild surrounding low density which is stable from prior exam. Previous craniotomy is noted within the cerebellar region. There is no evidence of intracranial hemorrhage. No midline shift or mass-effect is seen. Bone window settings were reviewed. Retention cyst is noted within the right maxillary sinus measuring 1.8 cm. Other portions of the visualized paranasal sinuses are clear. Mastoid sinuses are clear. Mild hyperostosis interna frontalis is seen within the calvarium. This is an incidental change. Impression: 1. Findings as noted above. No acute intracranial abnormality is appreciated. 2. Retention cyst is noted within the right maxillary sinus. Diagnostic code #2
--- NOTE | 2021-09-25 11:04 | EDM.PDOC ---
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 Patient reports daily headache since June. Patient reports the headache is right-sided and more severe when she lays flat on her back. Patient states the headache is improved when she sits up. Patient states she has had numerous shunt revisions in the past. She is currently trying to go to [place] for a different procedure but is still awaiting a CT venogram to be ordered by her specialist or primary care physician. She is here today because she feels the headache is worse. She denies any fevers, recent injuries. She states she has vision loss in her right eye which has been present for at least 1 month. She states opioids generally help with the pain. Right head Pain Score (Numeric/FACES): 9 - Related Data Allergies Allergy/AdvReac Type Severity Reaction Status Date / Time amylase [From Creon] Allergy Intermediate Rash Verified 09/25/21 09:30 lipase [From Creon] Allergy Intermediate Rash Verified 09/25/21 09:30 protease [From Creon] Allergy Intermediate Rash Verified 09/25/21 09:30 buprenorphine [From Butrans] Allergy Mild Itching Verified 09/25/21 09:30 metoclopramide HCl Allergy Mild Itching Verified 09/25/21 09:30 [From Reglan] ketorolac [From Toradol] AdvReac Intermediate Bleeding Verified 09/25/21 09:30 NSAIDS (Non-Steroidal AdvReac Mild Abdominal Verified 09/25/21 09:30 Anti-Inflamma Pain prochlorperazine AdvReac Mild Vomiting Verified 09/25/21 09:30 [From Compazine] Home Meds: Home Meds Prazosin HCl [Prazosin] 5 mg PO BEDTIME 03/14/19 [History] Vortioxetine [Trintellix] 10 mg PO DAILY 03/14/19 [History] QUEtiapine Fumarate [Quetiapine Fumarate] 75 mg PO BEDTIME 05/15/19 [History] Cholecalciferol (Vitamin D3) [Vitamin D3] 1,000 intnl unit PO DAILY 06/28/19 [History] Levothyroxine 175 mcg PO ACBREAKFAST 10/11/19 [History] Gabapentin [Neurontin] 100 mg PO QID 09/18/20 [History] Multivitamin 1 each PO DAILY 09/18/20 [History] Ondansetron [Zofran ODT] 4 mg PO ASDIRECTED PRN 04/09/21 [History] Ondansetron [Zofran] 4 mg BUCCAL Q6H PRN #15 tab 07/29/21 [Rx] Past Medical History HEENT History: Reports: Glaucoma, Otitis Media Cardiovascular History: Reports: Hypertension Other Cardiovascular History: tachycardia Respiratory History: Reports: None Gastrointestinal History: Reports: Hemorrhoids, Pancreatitis Other Gastrointestinal History: LUQ pain, hemorrhoids Genitourinary History: Reports: UTI, Recurrent CONSULTING SALES MANAGER History: Reports: Other CONSULTING SALES MANAGER History: c section x3, tubes tied Musculoskeletal History: Reports: Arthritis, Back Pain, Chronic, Fracture, Other (See Below) Other Musculoskeletal History: left foot fracture, elbow pain, wrist pain, weakness, falls. states fractured back 2x since Jul 2020. States fusion x 2 to lower back. Pt does have a long scar down lower back Neurological History: Reports: Other (See Below) Other Neuro History: pseudotumor, shunt, benign pineal brain tumor, memory loss, seizure disorder, vertigo, brain surgery x 16 Psychiatric History: Reports: Addiction, Anxiety, Depression Endocrine/Metabolic History: Reports: Hypothyroidism, Obesity/BMI 30+, Vitamin D Deficiency, Other (See Below) Other Endocrine/Metabolic History: hyperthyroidism, hypothyroidism, hashimotos, secondary adrenal insufficiency Hematologic History: Reports: Anemia, Iron Deficiency Other Hematologic History: anti TPO antibody Immunologic History: Reports: None Dermatologic History: Reports: Cellulitis - Infectious Disease History Infectious Disease History: Reports: Chicken Pox, MRSA Other Infectious Disease History: in 2006, 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." - Past Surgical History Head Surgeries/Procedures: Reports: Shunt, Other (See Below) HEENT Surgical History: Reports: Oral Surgery Other HEENT Surgeries/Procedures: [place] teeth removal. dental extraction Cardiovascular Surgical History: Reports: None Respiratory Surgical History: Reports: None GI Surgical History: Reports: Appendectomy, Bariatric Procedure, Cholecystectomy, Colonoscopy, EGD, ERCP Other GI Surgeries/Procedures: EUS Female Surgical History: Reports: Section, Tubal Ligation Other Female Surgeries/Procedures: C-SECTIONS X3 Endocrine Surgical History: Reports: None Neurological Surgical History: Reports: Lumbar Spine Other Neurological Surgeries/Procedures: brain tumor removal Musculoskeletal Surgical History: Reports: Other (See Below) Other Musculoskeletal Surgeries/Procedures:: spinal cord stimulator implanted.; spinal fusion Other Oncologic Surgeries/Procedures: Brain tumor removal Dermatological Surgical History: Reports: None Social & Family History - Family History Family Medical History: No Pertinent Family History Cardiac: Reports: Bypass, Hypertension, [place] Respiratory: Reports: Asthma Oncologic: Reports: Colon - Tobacco Use Tobacco Use Status *Q: Never Tobacco User - Caffeine Use Caffeine Use: Reports: Coffee Other Caffeine Use: 1 cup daily - Recreational Drug Use Recreational Drug Use: No - Living Situation & Occupation Living situation: Reports: , with Spouse Occupation: Unemployed ED ROS GENERAL - Review of Systems Review Of Systems: See Below Free Text/Narrative/Comment: In addition to that documented in the HPI above, the additional ROS was obtained: Constitutional: Denies fevers or chills Eyes: Denies vision changes ENMT: Denies sore throat CV: Denies chest pain Resp: Denies SOB GI: Denies vomiting or diarrhea : Denies painful urination MSK: Denies recent trauma Skin: Denies new rashes Neuro: Denies new numbness or tingling or weakness Endocrine: Denies unexpected weight loss Heme: Denies bleeding disorders - Physical Exam Exam: See Below Text/Narrative:: I have reviewed the triage vital signs Const: Well nourished, well developed, appears stated age Eyes: Pupils Equal and reactive to light bilaterally, no conjunctival injection HENT: No signs of trauma or swelling, Neck supple without meningismus CV: Regular Rate Rhythm, Warm, well-perfused extremities RESP: Unlabored respiratory effort GI: soft, non-tender, non-distended, no masses MSK: No gross deformities appreciated Skin: Warm, dry. No rashes Neuro: Alert, field service representative II-XII grossly intact. Sensation and motor function of extremities grossly intact. Psych: Appropriate mood and affect. Course - Vital Signs Last Recorded V/S: Last Vital Signs Temp 36.3 C 09/25/21 09:29 Pulse 97 09/25/21 09:29 Resp 14 09/25/21 09:29 BP 173/114 H 09/25/21 09:29 Pulse Ox 98 09/25/21 09:29 - Orders/Labs/Meds Labs: Laboratory Tests 09/25/21 09/25/21 Range/Units 10:05 10:05 WBC 6.63 (3.98-10.04) K/mm3 RBC 3.97 L (3.98-5.22) M/mm3 Hgb 12.3 (11.2-15.7) gm/dl Hct 38.5 (34.1-44.9) % MCV 97.0 H D (79.4-94.8) fl MCH 31.0 (25.6-32.2) pg MCHC 31.9 L (32.2-35.5) g/dl RDW Std Deviation 48.1 H (36.4-46.3) fL Plt Count 250 (182-369) K/mm3 MPV 9.6 (9.4-12.3) fl Neut % (Auto) 58.2 (34.0-71.1) % Lymph % (Auto) 30.0 (19.3-51.7) % [place] % (Auto) 11.0 (4.7-12.5) % Eos % (Auto) 0.3 L (0.7-5.8) Baso % (Auto) 0.3 (0.1-1.2) % Neut # (Auto) 3.86 (1.56-6.13) K/mm3 Lymph # (Auto) 1.99 (1.18-3.74) K/mm3 [place] # (Auto) 0.73 H (0.24-0.36) K/mm3 Eos # (Auto) 0.02 L (0.04-0.36) K/mm3 Baso # (Auto) 0.02 (0.01-0.08) K/mm3 Sodium 139 (136-145) mEq/L Potassium 3.9 (3.5-5.1) mEq/L Chloride 103 (98-107) mEq/L Carbon Dioxide 26 (21-32) mEq/L Anion Gap 13.9 (5-15) BUN 9 (7-18) mg/dL Creatinine 0.7 (0.55-1.02) mg/dL Est Cr Clr Drug Dosing 107.44 mL/min Estimated GFR (MDRD) > 60 (>60) mL/min BUN/Creatinine Ratio 12.9 L (14-18) Glucose 87 (70-99) mg/dL Calcium 8.8 (8.5-10.1) mg/dL Total Bilirubin 0.1 L (0.2-1.0) mg/dL AST 12 L (15-37) U/L ALT 14 (14-59) U/L Alkaline Phosphatase 69 (46-116) U/L Total Protein 7.2 (6.4-8.2) g/dl Albumin 3.8 (3.4-5.0) g/dl Globulin 3.4 gm/dL Albumin/Globulin Ratio 1.1 (1-2) Meds: Medications Discontinued Medications Generic Name Dose Route Start Last Admin Trade Name Freq PRN Reason Stop Dose Admin Morphine Sulfate 4 mg 09/25/21 09:56 09/25/21 10:26 Morphine 4 Mg/Ml Syringe IVPUSH 09/25/21 09:57 4 mg ONETIME ONE Administration Morphine Sulfate 2 mg 09/25/21 11:56 09/25/21 12:08 Morphine 2 Mg/Ml Syringe IVPUSH 09/25/21 11:57 2 mg ONETIME ONE Administration Ondansetron HCl 4 mg 09/25/21 09:56 09/25/21 10:25 Ondansetron 4 Mg/2 Ml Sdv IVPUSH 09/25/21 09:57 4 mg ONETIME ONE Administration Departure - Departure Time of Disposition: 11:52 Disposition: DC/Tfer W/I Hosp To Swing 61 Clinical Impression: Headache Qualifiers: Headache type: unspecified Headache chronicity pattern: unspecified pattern Intractability: not intractable Qualified Code(s): R51.9 - Headache, unspecified - Discharge Information Instructions: General Headache Without Cause, [id number] Referrals: Farzaneh Smith MD [Primary Care Provider] - Forms: ED Department Discharge Sepsis Event Note (ED) - Evaluation Sepsis Screening Result: No Definite Risk - Focused Exam Vital Signs: Vital Signs Temp Pulse Resp BP Pulse Ox 09/25/21 09:29 36.3 C 97 14 173/114 H 98 - Assessment/Plan Assessment:: Patient is 46-year-old female presenting to the emergency room with a complaint of headache. Patient very well in appearance and did not demonstrate any evidence of neurologic deficit. Differential diagnosis considered for this patient include meningitis, subarachnoid hemorrhage, shunt failure. Laboratory studies, CT and shunt series ordered. No significant abnormalities noted. Patient does appear to be at her baseline in accordance with her work-up so far. Patient did feel better after administration of morphine in the emergency room. Otherwise, patient feels comfortable following up as an outpatient. No indication for tapping shunt at this time. Patient will be discharged with appropriate return precautions. Instructed to follow-up with primary care physician as soon as possible.
--- NOTE | 2021-09-25 11:40 | CR ---
Shunt study: AP and lateral views were obtained of the skull, cervical spine, chest and abdomen. Comparison: Prior shunt study of 01/18/15. Findings: Catheter is seen within the abdomen presumably representing epidural catheter which extends from the lumbar spine to the lower thoracic spine. Shunt catheter is seen entering from the skull and extending distally along the right neck which then crosses to the left side within the upper chest. Catheter is poorly seen within other portions of the chest. Catheter is then seen within the abdomen extending into the pelvis. Scoliosis is present within the spine as well as scattered degenerative change. Transpedicle screws are seen within the lumbar spine and lower thoracic spine which affixes a previous compression deformity within L1. Impression: 1. Epidural catheter entering from the lumbar spine and extending to the lower thoracic spine. 2. Shunt catheter which exits from the skull and is seen to cross medially within the upper chest but is not seen within other portions of the chest. Shunt catheter is noted within the upper abdomen which extends into the pelvis. Nonvisualization within the chest is most likely due to technique. Diagnostic code #2
[2021-09-25] MEDS ORDERED: Morphine 2 MG/ML SYRINGE IVPUSH ONE (11:56)
== END 2021-09-25 12:15 | disposition home or self-care (01) ==
LOC: JD.ED 09:00
DX: R51.9 Headache, unspecified (principal); I10 Essential (primary) hypertension; E03.9 Hypothyroidism, unspecified; Z88.8 Allergy status to other drugs, medicaments and biological substances; Z88.6 Allergy status to analgesic agent; Z79.899 Other long term (current) drug therapy
CPT/HCPCS: 36415; 70250; 70360; 70450; 71046; 74019; 80053; 85025; 96374; 96375; 96376; 99284; J2270; J2405

== ENCOUNTER 2021-11-01 09:36 | Emergency (ER) | payer BC ==
--- NOTE | 2021-11-01 10:21 | EDM.PDOC ---
ED HPI GENERAL MEDICAL PROBLEM - General Chief Complaint: Neurological Problem Stated Complaint: CHEST PAIN Time Seen by Provider: 11/01/21 10:21 - History of Present Illness INITIAL COMMENTS - FREE TEXT/NARRATIVE: 46-year-old female returns the emergency room with a worsening continued headache. Apparently the patient is supposed to have surgery to revise her shunt this coming Thursday in [place] at [facility]. 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 She denies any fevers or chills she says she has a constant headache but today is worse than normal. She has had no areas of numbness or weakness just a headache. She has had no associated nausea or vomiting. She is not having chest complaints however her initial chief complaint was chest pain, the way the initial staff interpreted it. head Pain Score (Numeric/FACES): 4 - Related Data Allergies Allergy/AdvReac Type Severity Reaction Status Date / Time amylase [From Creon] Allergy Intermediate Rash Verified 11/01/21 10:04 lipase [From Creon] Allergy Intermediate Rash Verified 11/01/21 10:04 protease [From Creon] Allergy Intermediate Rash Verified 11/01/21 10:04 buprenorphine [From Butrans] Allergy Mild Itching Verified 11/01/21 10:04 metoclopramide HCl Allergy Mild Itching Verified 11/01/21 10:04 [From Reglan] ketorolac [From Toradol] AdvReac Intermediate Bleeding Verified 11/01/21 10:04 NSAIDS (Non-Steroidal AdvReac Mild Abdominal Verified 11/01/21 10:04 Anti-Inflamma Pain prochlorperazine AdvReac Mild Vomiting Verified 11/01/21 10:04 [From Compazine] Home Meds: Home Meds Prazosin HCl [Prazosin] 5 mg PO BEDTIME 03/14/19 [History] Vortioxetine [Trintellix] 10 mg PO DAILY 03/14/19 [History] QUEtiapine Fumarate [Quetiapine Fumarate] 75 mg PO BEDTIME 05/15/19 [History] Cholecalciferol (Vitamin D3) [Vitamin D3] 1,000 intnl unit PO DAILY 06/28/19 [History] Levothyroxine 175 mcg PO ACBREAKFAST 10/11/19 [History] Gabapentin [Neurontin] 100 mg PO QID 09/18/20 [History] Multivitamin 1 each PO DAILY 09/18/20 [History] Ondansetron [Zofran ODT] 4 mg PO ASDIRECTED PRN 04/09/21 [History] Ondansetron [Zofran] 4 mg BUCCAL Q6H PRN #15 tab 07/29/21 [Rx] Past Medical History HEENT History: Reports: Glaucoma, Otitis Media Cardiovascular History: Reports: Hypertension Other Cardiovascular History: tachycardia Respiratory History: Reports: None Gastrointestinal History: Reports: Hemorrhoids, Pancreatitis Other Gastrointestinal History: LUQ pain, hemorrhoids Genitourinary History: Reports: UTI, Recurrent CLINICAL RADIOLOGIST History: Reports: Other CLINICAL RADIOLOGIST History: c section x3, tubes tied Musculoskeletal History: Reports: Arthritis, Back Pain, Chronic, Fracture, Other (See Below) Other Musculoskeletal History: left foot fracture, elbow pain, wrist pain, weakness, falls. states fractured back 2x since Jul 2020. States fusion x 2 to lower back. Pt does have a long scar down lower back Neurological History: Reports: Other (See Below) Other Neuro History: pseudotumor, shunt, benign pineal brain tumor, memory loss, seizure disorder, vertigo, brain surgery x 16 Psychiatric History: Reports: Addiction, Anxiety, Depression Endocrine/Metabolic History: Reports: Hypothyroidism, Obesity/BMI 30+, Vitamin D Deficiency, Other (See Below) Other Endocrine/Metabolic History: hyperthyroidism, hypothyroidism, hashimotos, secondary adrenal insufficiency Hematologic History: Reports: Anemia, Iron Deficiency Other Hematologic History: anti TPO antibody Immunologic History: Reports: None Dermatologic History: Reports: Cellulitis - Infectious Disease History Infectious Disease History: Reports: Chicken Pox, MRSA Other Infectious Disease History: in 2006, 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." - Past Surgical History Head Surgeries/Procedures: Reports: Shunt, Other (See Below) HEENT Surgical History: Reports: Oral Surgery Other HEENT Surgeries/Procedures: [place] teeth removal. dental extraction Cardiovascular Surgical History: Reports: None Respiratory Surgical History: Reports: None GI Surgical History: Reports: Appendectomy, Bariatric Procedure, Cholecystectom y, Colonoscopy, EGD, ERCP Other GI Surgeries/Procedures: EUS Female Surgical History: Reports: Section, Tubal Ligation Other Female Surgeries/Procedures: C-SECTIONS X3 Endocrine Surgical History: Reports: None Neurological Surgical History: Reports: Lumbar Spine Other Neurological Surgeries/Procedures: brain tumor removal Musculoskeletal Surgical History: Reports: Other (See Below) Other Musculoskeletal Surgeries/Procedures:: spinal cord stimulator implanted.; spinal fusion Other Oncologic Surgeries/Procedures: Brain tumor removal Dermatological Surgical History: Reports: None Social & Family History - Family History Family Medical History: No Pertinent Family History Cardiac: Reports: Bypass, Hypertension, [place] Respiratory: Reports: Asthma Oncologic: Reports: Colon - Tobacco Use Tobacco Use Status *Q: Never Tobacco User - Caffeine Use Caffeine Use: Reports: Coffee Other Caffeine Use: 1 cup daily - Recreational Drug Use Recreational Drug Use: No - Living Situation & Occupation Living situation: Reports: , with Spouse Occupation: Unemployed ED ROS GENERAL - Review of Systems Review Of Systems: See Below Constitutional: Denies: Fever, Chills HEENT: Reports: No Symptoms Respiratory: Reports: No Symptoms Cardiovascular: Reports: No Symptoms Endocrine: Reports: No Symptoms GI/Abdominal: Reports: No Symptoms : Reports: No Symptoms Musculoskeletal: Reports: No Symptoms Neurological: Reports: Headache ED EXAM, GENERAL - Physical Exam Exam: See Below Exam Limited By: No Limitations General Appearance: Alert, No Apparent Distress Eye Exam: Bilateral Eye: EOMI, Normal Inspection, PERRL Ears: Normal External Exam, Normal Canal, Hearing Grossly Normal, Normal TMs Nose: Normal Inspection, Normal Mucosa, No Blood Throat/Mouth: Normal Inspection, Normal Lips, Normal Teeth, Normal Gums, Normal Oropharynx, Normal Voice, No Airway Compromise Head: Atraumatic, Normocephalic, Other (Prior surgical site is tender right frontal area) Neck: Normal Inspection, Supple, Non-Tender, Full Range of Motion. No: Lymphad enopathy (L), Lymphadenopathy (R) Respiratory/Chest: No Respiratory Distress, Lungs Clear, Normal Breath Sounds Cardiovascular: Regular Rate, Rhythm, No Edema, No Murmur GI/Abdominal: Normal Bowel Sounds, Soft, Non-Tender Back Exam: Normal Inspection, Full Range of Motion Extremities: Normal Inspection, No Pedal Edema Neurological: Alert, Oriented, CN II-XII Intact, Normal Cognition, No Motor/Sensory Deficits #1 Interpretation EKG Date: 11/01/21 Rhythm: NSR Rate (Beats/Min): 73 [place]: Normal P-Wave: Present QRS: Other (low voltage precordial leads) ST-T: Normal QT: Normal Comparison: No Change (No significant change from 04/21/2020) EKG Interpretation Comments: Abnormal Course - Vital Signs Last Recorded V/S: Last Vital Signs Temp 36.4 C 11/01/21 13:09 Pulse 62 11/01/21 13:09 Resp 16 11/01/21 13:09 BP 158/100 H 11/01/21 13:09 Pulse Ox 100 11/01/21 13:09 - Orders/Labs/Meds Labs: Laboratory Tests 11/01/21 11/01/21 11/01/21 Range/Units 10:18 10:40 10:40 WBC (3.98-10.04) K/mm3 RBC (3.98-5.22) M/mm3 Hgb (11.2-15.7) gm/dl Hct (34.1-44.9) % MCV (79.4-94.8) fl MCH (25.6-32.2) pg MCHC (32.2-35.5) g/dl RDW Std Deviation (36.4-46.3) fL Plt Count (182-369) K/mm3 MPV (9.4-12.3) fl Neut % (Auto) (34.0-71.1) % Lymph % (Auto) (19.3-51.7) % [place] % (Auto) (4.7-12.5) % Eos % (Auto) (0.7-5.8) Baso % (Auto) (0.1-1.2) % Neut # (Auto) (1.56-6.13) K/mm3 Lymph # (Auto) (1.18-3.74) K/mm3 [place] # (Auto) (0.24-0.36) K/mm3 Eos # (Auto) (0.04-0.36) K/mm3 Baso # (Auto) (0.01-0.08) K/mm3 PT 10.0 (9.7-12.0) SECONDS INR < 0.93 APTT 23.7 (21.7-31.4) SECONDS D-Dimer, Quantitative 0.27 (0.19-0.50) mg/L Sodium 139 (136-145) mEq/L Potassium 3.9 (3.5-5.1) mEq/L Chloride 103 (98-107) mEq/L Carbon Dioxide 26 (21-32) mEq/L Anion Gap 13.9 (5-15) BUN 11 (7-18) mg/dL Creatinine 1.0 (0.55-1.02) mg/dL Est Cr Clr Drug Dosing 62.58 mL/min Estimated GFR (MDRD) 59 (>60) mL/min BUN/Creatinine Ratio 11.0 L (14-18) Glucose 83 (70-99) mg/dL Calcium 8.7 (8.5-10.1) mg/dL Total Bilirubin 0.3 (0.2-1.0) mg/dL AST 23 (15-37) U/L ALT 22 (14-59) U/L Alkaline Phosphatase 64 (46-116) U/L Troponin I < 0.017 (0.00-0.056) ng/mL Total Protein 8.2 (6.4-8.2) g/dl Albumin 4.1 (3.4-5.0) g/dl Globulin 4.1 gm/dL Albumin/Globulin Ratio 1.0 (1-2) 11/01/21 Range/Units 10:40 WBC 7.24 (3.98-10.04) K/mm3 RBC 3.78 L (3.98-5.22) M/mm3 Hgb 11.9 (11.2-15.7) gm/dl Hct 36.9 (34.1-44.9) % MCV 97.6 H (79.4-94.8) fl MCH 31.5 (25.6-32.2) pg MCHC 32.2 (32.2-35.5) g/dl RDW Std Deviation 52.6 H (36.4-46.3) fL Plt Count 240 (182-369) K/mm3 MPV 9.5 (9.4-12.3) fl Neut % (Auto) 60.1 (34.0-71.1) % Lymph % (Auto) 27.1 (19.3-51.7) % [place] % (Auto) 11.5 (4.7-12.5) % Eos % (Auto) 0.7 (0.7-5.8) Baso % (Auto) 0.6 (0.1-1.2) % Neut # (Auto) 4.36 (1.56-6.13) K/mm3 Lymph # (Auto) 1.96 (1.18-3.74) K/mm3 [place] # (Auto) 0.83 H (0.24-0.36) K/mm3 Eos # (Auto) 0.05 (0.04-0.36) K/mm3 Baso # (Auto) 0.04 (0.01-0.08) K/mm3 PT (9.7-12.0) SECONDS INR APTT (21.7-31.4) SECONDS D-Dimer, Quantitative (0.19-0.50) mg/L Sodium (136-145) mEq/L Potassium (3.5-5.1) mEq/L Chloride (98-107) mEq/L Carbon Dioxide (21-32) mEq/L Anion Gap (5-15) BUN (7-18) mg/dL Creatinine (0.55-1.02) mg/dL Est Cr Clr Drug Dosing mL/min Estimated GFR (MDRD) (>60) mL/min BUN/Creatinine Ratio (14-18) Glucose (70-99) mg/dL Calcium (8.5-10.1) mg/dL Total Bilirubin (0.2-1.0) mg/dL AST (15-37) U/L ALT (14-59) U/L Alkaline Phosphatase (46-116) U/L Troponin I (0.00-0.056) ng/mL Total Protein (6.4-8.2) g/dl Albumin (3.4-5.0) g/dl Globulin gm/dL Albumin/Globulin Ratio (1-2) Meds: Medications Discontinued Medications Generic Name Dose Route Start Last Admin Trade Name Dominic PRN Reason Stop Dose Admin Morphine Sulfate 4 mg 11/01/21 11:17 11/01/21 11:35 Morphine 4 Mg/Ml Syringe IVPUSH 11/01/21 11:18 4 mg ONETIME ONE Administration Morphine Sulfate 2 mg 11/01/21 13:01 11/01/21 13:00 Morphine 2 Mg/Ml Syringe IVPUSH 11/01/21 13:02 2 mg ONETIME ONE Administration - Re-Assessments/Exams Free Text/Narrative Re-Assessment/Exam: 11/01/21 11:34 Labs were ordered based off her initial chief complaint before had a chance to evaluate the patient. Discussed shunt series CT the patient declines this at this point. We will give her 4 mg of morphine. 11/01/21 13:01 Labs look decent. We will give another 2 mg of morphine wait 20 minutes and then discharge home patient is in agreement to this. Departure - Departure Time of Disposition: 13:02 Disposition: Home, Self-Care 01 Clinical Impression: Ventriculoperitoneal shunt Headache Qualifiers: Headache type: unspecified Headache chronicity pattern: unspecified pattern Intractability: not intractable Qualified Code(s): R51.9 - Headache, unspecified - Discharge Information Instructions: Brain Shunt Placement, Care After Referrals: Farzaneh Smith MD [Primary Care Provider] - Forms: ED Department Discharge Additional Instructions: Return to the emergency room with any questions problems or worsening symptoms. It sounds like you are heading to [place] for procedure early this next week follow-up as directed. Sepsis Event Note (ED) - Evaluation Sepsis Screening Result: No Definite Risk - Focused Exam Vital Signs: Vital Signs Temp Pulse Resp BP Pulse Ox 11/01/21 13:09 36.4 C 62 16 158/100 H 100 11/01/21 09:56 36.3 C 70 18 146/107 H 100
[2021-11-01] MEDS ORDERED: Morphine 4 MG/ML Syringe IVPUSH ONE (11:17)
--- NOTE | 2021-11-01 12:16 | CR ---
Chest: Frontal view of the chest was obtained. Comparison: Prior chest x-ray of 04/21/[address] of 07/29/20. Heart size is felt to be within normal limits for technique. Upper mediastinum is within normal limits. Electrostimulating device has been removed within the thoracic spine. Diffuse trans-pedicle screws and rods are seen within the lower thoracic spine and lumbar spine. Lungs are clear with no acute parenchymal change. Impression: 1. Bone findings as noted above. 2. Nothing acute is seen on frontal chest x-ray. Diagnostic code #2
[2021-11-01] MEDS ORDERED: Morphine 2 MG/ML SYRINGE IVPUSH ONE (13:01)
[2021-11-01 13:10] VITALS: BP 158/100; PULSE 62
== END 2021-11-01 13:25 | disposition home or self-care (01) ==
LOC: JD.ED 09:36
DX: G96.08 Other cranial cerebrospinal fluid leak (principal); I10 Essential (primary) hypertension; E03.9 Hypothyroidism, unspecified; E66.9 Obesity, unspecified; Z68.44 Body mass index [BMI] 60.0-69.9, adult; Z91.09 Other allergy status, other than to drugs and biological substances; Z88.8 Allergy status to other drugs, medicaments and biological substances; Z88.6 Allergy status to analgesic agent; Z79.899 Other long term (current) drug therapy
CPT/HCPCS: 36415; 71045; 71045-26; 80053; 84484; 85025; 85379; 85610; 85730; 93005; 96374; 96376; 99285-25; J2270

== ENCOUNTER 2021-11-17 08:47 | Emergency (ER) | payer BC ==
--- NOTE | 2021-11-17 09:12 | EDM.PDOC ---
ED HPI GENERAL MEDICAL PROBLEM - General Chief Complaint: Headache Stated Complaint: HEAD PAIN Time Seen by Provider: 11/17/21 09:12 - History of Present Illness INITIAL COMMENTS - FREE TEXT/NARRATIVE: 46-year-old female returns to emergency room with a headache. The patient did go to [facility] and underwent angioplasty. Her right- sided vision has improved significantly left-sided they believe is too far gone. She has been having some discomfort with this she was discharged with instructions to use Tylenol. She is working with this but it is not really getting the situation taken care of. She did try and call her neurosurgeons office on Thursday and left a message but has not heard back. She is not having any significant nausea with this. She is not photophobic. She was not discharged on any blood thinners. The headache seems to favor the right side. She has been bulging from a prior craniotomy site the right frontal area this is normal for her when her headaches act up. Right Head Pain Score (Numeric/FACES): 8 - Related Data Allergies Allergy/AdvReac Type Severity Reaction Status Date / Time amylase [From Creon] Allergy Intermediate Rash Verified 11/17/21 09:06 lipase [From Creon] Allergy Intermediate Rash Verified 11/17/21 09:06 protease [From Creon] Allergy Intermediate Rash Verified 11/17/21 09:06 buprenorphine [From Butrans] Allergy Mild Itching Verified 11/17/21 09:06 metoclopramide HCl Allergy Mild Itching Verified 11/17/21 09:06 [From Reglan] ketorolac [From Toradol] AdvReac Intermediate Bleeding Verified 11/17/21 09:06 NSAIDS (Non-Steroidal AdvReac Mild Abdominal Verified 11/17/21 09:06 Anti-Inflamma Pain prochlorperazine AdvReac Mild Vomiting Verified 11/17/21 09:06 [From Compazine] Home Meds: Home Meds Prazosin HCl [Prazosin] 5 mg PO BEDTIME 03/14/19 [History] Vortioxetine [Trintellix] 10 mg PO DAILY 03/14/19 [History] QUEtiapine Fumarate [Quetiapine Fumarate] 75 mg PO BEDTIME 05/15/19 [History] Cholecalciferol (Vitamin D3) [Vitamin D3] 1,000 intnl unit PO DAILY 06/28/19 [History] Levothyroxine 175 mcg PO ACBREAKFAST 10/11/19 [History] Gabapentin [Neurontin] 100 mg PO QID 09/18/20 [History] Multivitamin 1 each PO DAILY 09/18/20 [History] Ondansetron [Zofran ODT] 4 mg PO ASDIRECTED PRN 04/09/21 [History] Ondansetron [Zofran] 4 mg BUCCAL Q6H PRN #15 tab 07/29/21 [Rx] Past Medical History HEENT History: Reports: Glaucoma, Otitis Media Cardiovascular History: Reports: Hypertension Other Cardiovascular History: tachycardia Respiratory History: Reports: None Gastrointestinal History: Reports: Hemorrhoids, Pancreatitis Other Gastrointestinal History: LUQ pain, hemorrhoids Genitourinary History: Reports: UTI, Recurrent 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 states fractured back 2x since Jul 2020. States fusion x 2 to lower back. Pt does have a long scar down lower back Neurological History: Reports: Other (See Below) Other Neuro History: pseudotumor, shunt, benign pineal brain tumor, memory loss, seizure disorder, vertigo, brain surgery x 16 Psychiatric History: Reports: Addiction, Anxiety, Depression Endocrine/Metabolic History: Reports: Hypothyroidism, Obesity/BMI 30+, Vitamin D Deficiency, Other (See Below) Other Endocrine/Metabolic History: hyperthyroidism, hypothyroidism, hashimotos, secondary adrenal insufficiency Hematologic History: Reports: Anemia, Iron Deficiency Other Hematologic History: anti TPO antibody Immunologic History: Reports: None Dermatologic History: Reports: Cellulitis - Infectious Disease History Infectious Disease History: Reports: Chicken Pox, MRSA Other Infectious Disease History: in 2006, 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." - Past Surgical History Head Surgeries/Procedures: Reports: Shunt, Other (See Below) HEENT Surgical History: Reports: Oral Surgery Other HEENT Surgeries/Procedures: Powderhorn teeth removal. dental extraction Cardiovascular Surgical History: Reports: None Respiratory Surgical History: Reports: None GI Surgical History: Reports: Appendectomy, Bariatric Procedure, Cholecystectomy, Colonoscopy, EGD, ERCP Other GI Surgeries/Procedures: EUS Female Surgical History: Reports: Section, Tubal Ligation Other Female Surgeries/Procedures: C-SECTIONS X3 Endocrine Surgical History: Reports: None Neurological Surgical History: Reports: Lumbar Spine Other Neurological Surgeries/Procedures: brain tumor removal Musculoskeletal Surgical History: Reports: Other (See Below) Other Musculoskeletal Surgeries/Procedures:: spinal cord stimulator implanted.; spinal fusion Other Oncologic Surgeries/Procedures: Brain tumor removal Dermatological Surgical History: Reports: None Social & Family History - Family History Family Medical History: No Pertinent Family History Cardiac: Reports: Bypass, Hypertension, [place] Respiratory: Reports: Asthma Oncologic: Reports: Colon - Caffeine Use Caffeine Use: Reports: Coffee Other Caffeine Use: 1 cup daily - Living Situation & Occupation Living situation: Reports: , with Spouse Occupation: Unemployed ED ROS GENERAL - Review of Systems Review Of Systems: See Below Constitutional: Reports: No Symptoms HEENT: Reports: No Symptoms Respiratory: Reports: No Symptoms Cardiovascular: Reports: No Symptoms Endocrine: Reports: No Symptoms GI/Abdominal: Reports: No Symptoms Musculoskeletal: Reports: No Symptoms Skin: Reports: No Symptoms Neurological: Reports: Headache. Denies: Confusion, Dizziness, Seizure ED EXAM, GENERAL - Physical Exam Exam: See Below Exam Limited By: No Limitations General Appearance: Alert, No Apparent Distress Eye Exam: Bilateral Eye: Normal Inspection Ears: Normal External Exam, Normal Canal, Hearing Grossly Normal, Normal TMs Nose: Normal Inspection, Normal Mucosa, No Blood Throat/Mouth: Normal Inspection, Normal Lips, Normal Gums, Normal Oropharynx, Normal Voice, No Airway Compromise Head: Other (Bulging over the right frontal craniotomy site) Neck: Normal Inspection, Supple, Non-Tender, Full Range of Motion Respiratory/Chest: No Respiratory Distress, Lungs Clear, Normal Breath Sounds Cardiovascular: Regular Rate, Rhythm, No Edema, No Murmur GI/Abdominal: Normal Bowel Sounds, Soft, Non-Tender Neurological: Alert, Oriented, Normal Cognition, Other (No new deficits) Skin Exam: Other (Right groin vascular access site shows some ecchymosis and she has some bruising in her upper extremities as well) Course - Vital Signs Last Recorded V/S: Last Vital Signs Temp 36.0 C L 11/17/21 10:40 Pulse 64 11/17/21 10:40 Resp 16 11/17/21 10:40 BP 150/97 H 11/17/21 10:40 Pulse Ox 100 11/17/21 10:40 - Orders/Labs/Meds Meds: Medications Discontinued Medications Generic Name Dose Route Start Last Admin Trade Name Dominic PRN Reason Stop Dose Admin Morphine Sulfate 4 mg 11/17/21 09:22 11/17/21 09:53 Morphine 4 Mg/Ml Syringe IVPUSH 11/17/21 09:23 4 mg ONETIME ONE Administration Morphine Sulfate 2 mg 11/17/21 10:24 11/17/21 10:36 Morphine 2 Mg/Ml Syringe IVPUSH 11/17/21 10:25 2 mg ONETIME ONE Administration - Re-Assessments/Exams Free Text/Narrative Re-Assessment/Exam: 11/17/21 09:30 Strongly recommended further evaluation with CT shunt series and labs patient declines this. We will give her 4 mg of morphine and see how she does 11/17/21 11:33 The patient received 4 mg of morphine with some improvement but not complete we gave her another 2 mg and she is feeling much better and requests to go home. Departure - Departure Time of Disposition: 11:33 Disposition: Home, Self-Care 01 Clinical Impression: Cephalgia Qualifiers: Headache type: unspecified Headache chronicity pattern: unspecified pattern Intractability: not intractable Qualified Code(s): R51.9 - Headache, unspecified - Discharge Information Referrals: Farzaneh Smith MD [Primary Care Provider] - Forms: ED Department Discharge Additional Instructions: Return to the emergency room with any questions problems or worsening symptoms. Follow-up with your neurosurgeon as soon as possible. Sepsis Event Note (ED) - Evaluation Sepsis Screening Result: No Definite Risk - Focused Exam Vital Signs: Vital Signs Temp Pulse Resp BP Pulse Ox 11/17/21 10:40 36.0 C L 64 16 150/97 H 100 11/17/21 08:56 36.2 C 81 20 158/100 H 100
[2021-11-17] MEDS ORDERED: Morphine 4 MG/ML Syringe IVPUSH ONE (09:22)
[2021-11-17] MEDS ORDERED: Morphine 2 MG/ML SYRINGE IVPUSH ONE (10:24)
[2021-11-17 10:41] VITALS: BP 150/97; PULSE 64
== END 2021-11-17 11:46 | disposition home or self-care (01) ==
LOC: JD.ED 08:47
DX: R51.9 Headache, unspecified (principal); I10 Essential (primary) hypertension; E03.9 Hypothyroidism, unspecified; E66.9 Obesity, unspecified; Z88.8 Allergy status to other drugs, medicaments and biological substances; Z88.6 Allergy status to analgesic agent; Z91.048 Other nonmedicinal substance allergy status; Z79.899 Other long term (current) drug therapy; Z68.38 Body mass index [BMI] 38.0-38.9, adult
CPT/HCPCS: 96374; 96376; 99283; J2270

== ENCOUNTER 2021-12-03 10:08 | Emergency (ER) | payer BC ==
[2021-12-03 10:43] VITALS: BP 115/85; PULSE 85
[2021-12-03] MEDS ORDERED: Promethazine 25 MG/ML SDV IM ONE (12:24)
[2021-12-03] MEDS ORDERED: HYDROmorphone 1 MG/ML Syringe IM ONE (12:24)
[2021-12-03] MEDS ORDERED: diphenhydrAMINE 50 MG/ML SDV IM ONE ×2 (12:25→12:28)
[2021-12-03] MEDS ORDERED: LORazepam 1 MG Tab PO ONE (12:29)
== END 2021-12-03 13:30 | disposition home or self-care (01) ==
LOC: JD.ED 10:08
DX: D49.6 Neoplasm of unspecified behavior of brain (principal); G93.2 Benign intracranial hypertension; M19.90 Unspecified osteoarthritis, unspecified site; E03.9 Hypothyroidism, unspecified; E05.90 Thyrotoxicosis, unspecified without thyrotoxic crisis or storm; E66.9 Obesity, unspecified; Z88.8 Allergy status to other drugs, medicaments and biological substances; Z88.5 Allergy status to narcotic agent; Z88.6 Allergy status to analgesic agent; Z79.899 Other long term (current) drug therapy
CPT/HCPCS: 96372; 99283; A9270; J1170; J1200; J2550

== ENCOUNTER 2021-12-09 10:44 | Emergency (ER) | payer BC ==
[2021-12-09 11:10] VITALS: BP 166/107; PULSE 70
[2021-12-09] MEDS ORDERED: HYDROmorphone 1 MG/ML Syringe IM ONE (11:51)
[2021-12-09] MEDS ORDERED: Promethazine 25 MG/ML SDV IM ONE (11:52)
[2021-12-09] MEDS ORDERED: diphenhydrAMINE 50 MG/ML SDV IM ONE (11:53)
[2021-12-09] MEDS ORDERED: LORazepam 1 MG Tab PO ONE (11:58)
== END 2021-12-09 12:30 | disposition home or self-care (01) ==
LOC: JD.ED 10:44
DX: T85.09XA Other mechanical complication of ventricular intracranial (communicating) shunt, initial encounter (principal); D49.6 Neoplasm of unspecified behavior of brain; G93.2 Benign intracranial hypertension; M19.90 Unspecified osteoarthritis, unspecified site; E03.9 Hypothyroidism, unspecified; E66.9 Obesity, unspecified; Z68.38 Body mass index [BMI] 38.0-38.9, adult; Z88.8 Allergy status to other drugs, medicaments and biological substances; Z88.5 Allergy status to narcotic agent; Z88.6 Allergy status to analgesic agent; Z79.899 Other long term (current) drug therapy
CPT/HCPCS: 96372; 99283; A9270; J1170; J1200; J2550

== ENCOUNTER 2021-12-15 08:24 | Emergency (ER) | payer BC ==
[2021-12-15 08:39] VITALS: BP 166/136; PULSE 89
[2021-12-15] MEDS ORDERED: HYDROmorphone 1 MG/ML Syringe IM ONE (09:21)
== END 2021-12-15 10:02 | disposition home or self-care (01) ==
LOC: JD.ED 08:24
DX: R51.9 Headache, unspecified (principal); C75.3 Malignant neoplasm of pineal gland; I10 Essential (primary) hypertension; E03.9 Hypothyroidism, unspecified; E66.9 Obesity, unspecified; Z68.38 Body mass index [BMI] 38.0-38.9, adult; Z88.8 Allergy status to other drugs, medicaments and biological substances; Z88.6 Allergy status to analgesic agent; Z79.899 Other long term (current) drug therapy
CPT/HCPCS: 96372; 99283; J1170

== ENCOUNTER 2021-12-16 11:23 | Emergency (ER) | payer BC ==
[2021-12-16 11:55] VITALS: BP 160/107; PULSE 74
[2021-12-16] MEDS ORDERED: diphenhydrAMINE 50 MG/ML SDV IM ONE (12:06)
[2021-12-16] MEDS ORDERED: HYDROmorphone 1 MG/ML Syringe IM ONE (12:06)
[2021-12-16] MEDS ORDERED: Promethazine 25 MG/ML SDV IM ONE (12:07)
[2021-12-16] MEDS ORDERED: HYDROmorphone 1 MG/ML Syringe ONE (12:31)
== END 2021-12-16 12:30 | disposition home or self-care (01) ==
LOC: JD.ED 11:23
DX: R51.9 Headache, unspecified (principal); G89.29 Other chronic pain; I10 Essential (primary) hypertension; E03.9 Hypothyroidism, unspecified; Z88.8 Allergy status to other drugs, medicaments and biological substances; Z79.899 Other long term (current) drug therapy
CPT/HCPCS: 96372; 99283; J1170; J1200; J2550

== ENCOUNTER 2021-12-20 09:16 | Emergency (ER) | payer BC ==
[2021-12-20] MEDS ORDERED: HYDROmorphone 1 MG/ML Syringe IM ONE (09:56)
[2021-12-20] MEDS ORDERED: Ondansetron 4 MG Tab.DIS PO ONE (09:56)
[2021-12-20 11:11] VITALS: BP 144/87; PULSE 80
== END 2021-12-20 11:10 | disposition home or self-care (01) ==
LOC: JD.ED 09:16
DX: R51.9 Headache, unspecified (principal); I10 Essential (primary) hypertension; E03.9 Hypothyroidism, unspecified; E05.90 Thyrotoxicosis, unspecified without thyrotoxic crisis or storm; E66.9 Obesity, unspecified; Z68.39 Body mass index [BMI] 39.0-39.9, adult; Z88.8 Allergy status to other drugs, medicaments and biological substances; Z88.5 Allergy status to narcotic agent; Z88.6 Allergy status to analgesic agent; Z79.899 Other long term (current) drug therapy
CPT/HCPCS: 96372; 99283; A9270; J1170; 99284

== ENCOUNTER 2021-12-22 08:07 | Emergency (ER) | payer BC ==
[2021-12-22 08:21] VITALS: BP 177/112; PULSE 98
[2021-12-22] MEDS ORDERED: HYDROmorphone 1 MG/ML Syringe IM ONE (08:50)
[2021-12-22] MEDS ORDERED: Promethazine 25 MG/ML SDV IM ONE (08:50)
== END 2021-12-22 09:13 | disposition home or self-care (01) ==
LOC: JD.ED 08:07
DX: D49.7 Neoplasm of unspecified behavior of endocrine glands and other parts of nervous system (principal); I10 Essential (primary) hypertension; E03.9 Hypothyroidism, unspecified; E66.9 Obesity, unspecified; Z68.39 Body mass index [BMI] 39.0-39.9, adult; Z88.8 Allergy status to other drugs, medicaments and biological substances; Z88.5 Allergy status to narcotic agent; Z88.6 Allergy status to analgesic agent; Z79.899 Other long term (current) drug therapy
CPT/HCPCS: 96372; 99283; J1170; J2550; 99284

== ENCOUNTER 2021-12-26 09:04 | Emergency (ER) | payer BC ==
[2021-12-26 09:22] VITALS: BP 160/93; PULSE 103
[2021-12-26] MEDS ORDERED: HYDROmorphone 1 MG/ML Syringe IM ONE (09:42)
[2021-12-26] MEDS ORDERED: Ondansetron 4 MG Tab.DIS PO ONE (09:43)
== END 2021-12-26 10:30 | disposition home or self-care (01) ==
LOC: JD.ED 09:04
DX: R51.9 Headache, unspecified (principal); R11.2 Nausea with vomiting, unspecified; I10 Essential (primary) hypertension; E03.9 Hypothyroidism, unspecified; E66.9 Obesity, unspecified; Z68.39 Body mass index [BMI] 39.0-39.9, adult; Z88.6 Allergy status to analgesic agent; Z88.8 Allergy status to other drugs, medicaments and biological substances
CPT/HCPCS: 96372; 99283; A9270; J1170; 99284

== ENCOUNTER 2022-01-05 08:27 | Emergency (ER) | payer BC ==
[2022-01-05 08:42] VITALS: BP 140/95; PULSE 83
[2022-01-05] MEDS ORDERED: diphenhydrAMINE 50 MG/ML SDV IM ONE (09:05)
[2022-01-05] MEDS ORDERED: HYDROmorphone 1 MG/ML Syringe IM ONE ×2 (09:05→10:52)
[2022-01-05] MEDS ORDERED: Promethazine 25 MG/ML SDV IM ONE (09:05)
[2022-01-05] MEDS ORDERED: LORazepam 2 MG/ML SDV IM ONE (09:06)
[2022-01-05] MEDS ORDERED: HYDROmorphone 1 MG/ML Syringe IVPUSH ONE (10:33)
[2022-01-05] MEDS ORDERED: fentaNYL 50 MCG/HR Transdermal Patch TRDERM STA (10:41)
[2022-01-05] MEDS ORDERED: fentaNYL 50 MCG/HR Transdermal Patch TRDERM SCH (10:45)
== END 2022-01-05 11:19 | disposition home or self-care (01) ==
LOC: JD.ED 08:27
DX: C75.3 Malignant neoplasm of pineal gland (principal); R11.2 Nausea with vomiting, unspecified; I10 Essential (primary) hypertension; E03.9 Hypothyroidism, unspecified; E66.9 Obesity, unspecified; Z68.30 Body mass index [BMI] 30.0-30.9, adult; Z88.6 Allergy status to analgesic agent; Z91.048 Other nonmedicinal substance allergy status; Z79.899 Other long term (current) drug therapy
CPT/HCPCS: 70450; 96372; 99284; A9270; J1170; J1200; J2060; J2550

== ENCOUNTER 2022-01-17 09:50 | Emergency (ER) | payer BC ==
[2022-01-17 10:28] VITALS: BP 153/98; PULSE 87
[2022-01-17] MEDS ORDERED: HYDROmorphone 1 MG/ML Syringe IM ONE (11:07)
[2022-01-17] MEDS ORDERED: HYDROmorphone 1 MG/ML Syringe ONE (11:20)
== END 2022-01-17 11:15 | disposition home or self-care (01) ==
LOC: JD.ED 09:50
DX: B02.9 Zoster without complications (principal); I10 Essential (primary) hypertension; E03.9 Hypothyroidism, unspecified; E66.9 Obesity, unspecified; Z68.31 Body mass index [BMI] 31.0-31.9, adult; Z88.8 Allergy status to other drugs, medicaments and biological substances; Z88.6 Allergy status to analgesic agent
CPT/HCPCS: 96372; 99283; J1170; 99284

== ENCOUNTER 2022-01-20 08:20 | Emergency (ER) | payer BC ==
[2022-01-20 08:42] VITALS: BP 154/105; PULSE 79
[2022-01-20] MEDS ORDERED: Promethazine 25 MG/ML SDV IM ONE (09:07)
[2022-01-20] MEDS ORDERED: HYDROmorphone 1 MG/ML Syringe IM ONE (09:07)
== END 2022-01-20 09:41 | disposition home or self-care (01) ==
LOC: JD.ED 08:20
DX: B02.8 Zoster with other complications (principal); I10 Essential (primary) hypertension; E03.9 Hypothyroidism, unspecified; E66.9 Obesity, unspecified; Z68.37 Body mass index [BMI] 37.0-37.9, adult; Z79.899 Other long term (current) drug therapy
CPT/HCPCS: 96372; 99282; J1170; J2550; 99284

== ENCOUNTER 2022-01-26 08:12 | Emergency (ER) | payer BC ==
[2022-01-26 08:32] VITALS: BP 147/96; PULSE 67
[2022-01-26] MEDS ORDERED: HYDROmorphone 1 MG/ML Syringe IM ONE (08:53)
== END 2022-01-26 09:00 | disposition home or self-care (01) ==
LOC: JD.ED 08:12
DX: B02.9 Zoster without complications (principal); N64.4 Mastodynia; I10 Essential (primary) hypertension; E03.9 Hypothyroidism, unspecified; E66.9 Obesity, unspecified; Z68.38 Body mass index [BMI] 38.0-38.9, adult; Z91.011 Allergy to milk products; Z88.6 Allergy status to analgesic agent; Z88.8 Allergy status to other drugs, medicaments and biological substances; Z79.899 Other long term (current) drug therapy
CPT/HCPCS: 96372; 99283; J1170; 99284

== ENCOUNTER 2022-01-28 09:26 | Emergency (ER) | payer BC ==
[2022-01-28 09:46] VITALS: BP 146/94; PULSE 69
[2022-01-28] MEDS ORDERED: HYDROmorphone 1 MG/ML Syringe IM ONE (10:03)
[2022-01-28] MEDS ORDERED: Promethazine 25 MG/ML SDV IM ONE (10:04)
== END 2022-01-28 10:20 | disposition home or self-care (01) ==
LOC: JD.ED 09:26
DX: B02.9 Zoster without complications (principal); R52 Pain, unspecified; I10 Essential (primary) hypertension; E66.9 Obesity, unspecified; Z91.011 Allergy to milk products; Z88.6 Allergy status to analgesic agent; Z88.8 Allergy status to other drugs, medicaments and biological substances; Z68.38 Body mass index [BMI] 38.0-38.9, adult
CPT/HCPCS: 96372; 99282; J1170; J2550; 99284

== ENCOUNTER 2022-02-01 08:37 | Emergency (ER) | payer BC ==
[2022-02-01 08:58] VITALS: BP 162/100; PULSE 74
[2022-02-01] MEDS ORDERED: HYDROmorphone 1 MG/ML Syringe IM ONE (09:47)
== END 2022-02-01 10:37 | disposition home or self-care (01) ==
LOC: JD.ED 08:37
DX: B02.8 Zoster with other complications (principal); I10 Essential (primary) hypertension; E03.9 Hypothyroidism, unspecified; E66.9 Obesity, unspecified; Z68.38 Body mass index [BMI] 38.0-38.9, adult; Z88.6 Allergy status to analgesic agent; Z91.011 Allergy to milk products; Z88.8 Allergy status to other drugs, medicaments and biological substances; Z79.899 Other long term (current) drug therapy
CPT/HCPCS: 96372; 99284; J1170

== ENCOUNTER 2022-02-07 09:29 | Emergency (ER) | payer BC ==
[2022-02-07 09:45] VITALS: BP 164/101; PULSE 75
[2022-02-07] MEDS ORDERED: diphenhydrAMINE 50 MG/ML SDV IM ONE (11:36)
== END 2022-02-07 12:30 | disposition home or self-care (01) ==
LOC: JD.ED 09:29
DX: B02.29 Other postherpetic nervous system involvement (principal); Z91.018 Allergy to other foods; Z88.8 Allergy status to other drugs, medicaments and biological substances; Z88.6 Allergy status to analgesic agent
CPT/HCPCS: 96372; 99283; J1200; J3230; 99284

== ENCOUNTER 2022-02-09 15:57 | Emergency (ER) | payer BC ==
[2022-02-09 16:31] VITALS: BP 153/96; PULSE 90
[2022-02-09] MEDS ORDERED: HYDROmorphone 1 MG/ML Syringe IM ONE (16:40)
[2022-02-09] MEDS ORDERED: Ondansetron 4 MG/2 ML SDV IM ONE (17:11)
== END 2022-02-09 17:30 | disposition home or self-care (01) ==
LOC: JD.ED 15:57
DX: B02.29 Other postherpetic nervous system involvement (principal); I10 Essential (primary) hypertension; E03.9 Hypothyroidism, unspecified; E66.9 Obesity, unspecified; Z91.011 Allergy to milk products; Z88.8 Allergy status to other drugs, medicaments and biological substances; Z88.6 Allergy status to analgesic agent; Z79.899 Other long term (current) drug therapy; Z68.41 Body mass index [BMI] 40.0-44.9, adult
CPT/HCPCS: 96372; 99283; J1170; J2405; 99284

== ENCOUNTER 2022-02-13 09:13 | Emergency (ER) | payer BC ==
[2022-02-13 09:22] VITALS: BP 160/108; PULSE 83
[2022-02-13] MEDS ORDERED: Promethazine 25 MG/ML SDV IM ONE (09:48)
[2022-02-13] MEDS ORDERED: HYDROmorphone 1 MG/ML Syringe IM ONE (09:48)
== END 2022-02-13 10:09 | disposition home or self-care (01) ==
LOC: JD.ED 09:13
DX: R51.9 Headache, unspecified (principal); C75.3 Malignant neoplasm of pineal gland; B02.8 Zoster with other complications; I10 Essential (primary) hypertension; E03.9 Hypothyroidism, unspecified; E66.9 Obesity, unspecified; Z68.30 Body mass index [BMI] 30.0-30.9, adult; Z91.011 Allergy to milk products; Z88.6 Allergy status to analgesic agent; Z88.8 Allergy status to other drugs, medicaments and biological substances; Z79.899 Other long term (current) drug therapy
CPT/HCPCS: 96372; 99284; J1170; J2550; 99283

== ENCOUNTER 2022-02-15 10:36 | Emergency (ER) | payer BC ==
[2022-02-15] MEDS ORDERED: HYDROmorphone 1 MG/ML Syringe IM ONE (11:15)
[2022-02-15] MEDS ORDERED: Promethazine 25 MG/ML SDV IM ONE (11:17)
[2022-02-15 11:41] VITALS: BP 125/88; PULSE 68
== END 2022-02-15 11:41 | disposition home or self-care (01) ==
LOC: JD.ED 10:36
DX: B02.9 Zoster without complications (principal); R51.9 Headache, unspecified; I10 Essential (primary) hypertension; E03.9 Hypothyroidism, unspecified; E66.9 Obesity, unspecified; Z68.41 Body mass index [BMI] 40.0-44.9, adult; Z79.899 Other long term (current) drug therapy
CPT/HCPCS: 96372; 99283; J1170; J2550; 99284

== ENCOUNTER 2022-02-19 10:32 | Emergency (ER) | payer BC ==
[2022-02-19] MEDS ORDERED: Promethazine 25 MG/ML SDV IM ONE (11:10)
[2022-02-19] MEDS ORDERED: HYDROmorphone 1 MG/ML Syringe IM ONE (11:10)
[2022-02-19] MEDS ORDERED: Ondansetron 4 MG Tab.DIS PO ONE (11:11)
[2022-02-19 11:42] VITALS: BP 132/88; PULSE 89
== END 2022-02-19 11:42 | disposition home or self-care (01) ==
LOC: JD.ED 10:32
DX: D49.7 Neoplasm of unspecified behavior of endocrine glands and other parts of nervous system (principal); I10 Essential (primary) hypertension; E03.9 Hypothyroidism, unspecified; E66.9 Obesity, unspecified; Z68.38 Body mass index [BMI] 38.0-38.9, adult; Z91.018 Allergy to other foods; Z88.6 Allergy status to analgesic agent; Z88.8 Allergy status to other drugs, medicaments and biological substances; Z79.899 Other long term (current) drug therapy
CPT/HCPCS: 96372; 99283; 99284; A9270-GY; J1170; J2550

== ENCOUNTER 2022-02-23 13:55 | Emergency (ER) | payer BC ==
[2022-02-23 14:07] VITALS: BP 175/118; PULSE 90
[2022-02-23] MEDS ORDERED: HYDROmorphone 1 MG/ML Syringe IM ONE (14:27)
[2022-02-23] MEDS ORDERED: Promethazine 25 MG/ML SDV IM ONE (14:28)
== END 2022-02-23 14:55 | disposition home or self-care (01) ==
LOC: JD.ED 13:55
DX: C75.3 Malignant neoplasm of pineal gland (principal); R51.9 Headache, unspecified; I10 Essential (primary) hypertension; Z88.8 Allergy status to other drugs, medicaments and biological substances
CPT/HCPCS: 96372; 99283; J1170; J2550

== ENCOUNTER 2022-02-27 18:10 | Emergency (ER) | payer BC ==
[2022-02-27 18:18] VITALS: BP 142/105; PULSE 79
[2022-02-27] MEDS ORDERED: Promethazine 25 MG/ML SDV IM ONE (18:29)
[2022-02-27] MEDS ORDERED: HYDROmorphone 1 MG/ML Syringe IM ONE (18:29)
== END 2022-02-27 19:05 | disposition home or self-care (01) ==
LOC: JD.ED 18:10
DX: R51.9 Headache, unspecified (principal); R11.0 Nausea; I10 Essential (primary) hypertension; E03.9 Hypothyroidism, unspecified; E66.9 Obesity, unspecified; Z68.38 Body mass index [BMI] 38.0-38.9, adult; Z88.8 Allergy status to other drugs, medicaments and biological substances; Z79.899 Other long term (current) drug therapy
CPT/HCPCS: 96372; 99284; J1170; J2550

== ENCOUNTER 2022-02-28 05:13 | Emergency (ER) | payer BC ==
[2022-02-28 05:18] VITALS: BP 142/91; PULSE 95
[2022-02-28] MEDS ORDERED: Ondansetron 4 MG Tab.DIS PO ONE (05:38)
[2022-02-28] MEDS ORDERED: HYDROmorphone 1 MG/ML Syringe IM ONE (07:23)
== END 2022-02-28 07:53 | disposition home or self-care (01) ==
LOC: JD.ED 05:13
DX: G97.1 Other reaction to spinal and lumbar puncture (principal); I10 Essential (primary) hypertension; E03.9 Hypothyroidism, unspecified; E66.9 Obesity, unspecified; Z68.30 Body mass index [BMI] 30.0-30.9, adult; Z79.899 Other long term (current) drug therapy; Z88.6 Allergy status to analgesic agent; Z91.011 Allergy to milk products; Z98.2 Presence of cerebrospinal fluid drainage device
CPT/HCPCS: 70250; 70360; 71046; 74019; 96372; 99283; A9270; J1170; 99284

== ENCOUNTER 2022-03-02 17:04 | Emergency (ER) | payer BC ==
[2022-03-02 18:04] VITALS: BP 123/87; PULSE 75
[2022-03-02] MEDS ORDERED: Ondansetron 4 MG Tab.DIS PO ONE (19:19)
[2022-03-02] MEDS ORDERED: HYDROmorphone 1 MG/ML Syringe IM ONE (19:19)
== END 2022-03-02 20:00 | disposition home or self-care (01) ==
LOC: JD.ED 17:04
DX: R51.9 Headache, unspecified (principal); I10 Essential (primary) hypertension; E03.9 Hypothyroidism, unspecified; E66.9 Obesity, unspecified; Z68.41 Body mass index [BMI] 40.0-44.9, adult; Z91.011 Allergy to milk products; Z88.8 Allergy status to other drugs, medicaments and biological substances
CPT/HCPCS: 96372; 99283; A9270; J1170; 99284

== ENCOUNTER 2022-03-07 09:31 | Emergency (ER) | payer BC ==
[2022-03-07 11:15] VITALS: BP 119/92; PULSE 67
[2022-03-07] MEDS ORDERED: HYDROmorphone 1 MG/ML Syringe IM ONE (11:35)
[2022-03-07] MEDS ORDERED: Ondansetron 4 MG/2 ML SDV IM ONE (11:35)
[2022-03-07] MEDS ORDERED: Ondansetron 4 MG Tab.DIS PO ONE (11:44)
== END 2022-03-07 12:28 | disposition home or self-care (01) ==
LOC: JD.ED 09:31
DX: G43.909 Migraine, unspecified, not intractable, without status migrainosus (principal); I10 Essential (primary) hypertension; E03.9 Hypothyroidism, unspecified; E66.9 Obesity, unspecified; Z68.41 Body mass index [BMI] 40.0-44.9, adult; Z79.899 Other long term (current) drug therapy; Z88.8 Allergy status to other drugs, medicaments and biological substances; Z91.011 Allergy to milk products
CPT/HCPCS: 96372; 99283; A9270; J1170

== ENCOUNTER 2022-03-15 08:39 | Emergency (ER) | payer BC ==
[2022-03-15 08:53] VITALS: BP 148/101; PULSE 78
[2022-03-15] MEDS ORDERED: Morphine 4 MG/ML Syringe IM ONE (09:16)
== END 2022-03-15 11:25 | disposition home or self-care (01) ==
LOC: JD.ED 08:39 → SUPCPDRO 08:39 → JD.ED 11:25
DX: S00.83XA Contusion of other part of head, initial encounter (principal); M54.50 Low back pain, unspecified; I10 Essential (primary) hypertension; E03.9 Hypothyroidism, unspecified; E66.9 Obesity, unspecified; Z68.41 Body mass index [BMI] 40.0-44.9, adult; Z88.6 Allergy status to analgesic agent; Z88.8 Allergy status to other drugs, medicaments and biological substances; Z91.011 Allergy to milk products; Z79.899 Other long term (current) drug therapy; W18.09XA Striking against other object with subsequent fall, initial encounter
CPT/HCPCS: 70450; 72100; 96372; 99284; J2270; 99283

== ENCOUNTER 2022-04-13 08:29 | Emergency (ER) | payer BC ==
[2022-04-13] MEDS ORDERED: HYDROmorphone 1 MG/ML Syringe IM ONE (08:52)
[2022-04-13] MEDS ORDERED: Promethazine 25 MG/ML SDV IM ONE (08:53)
[2022-04-13] MEDS ORDERED: diphenhydrAMINE 50 MG/ML SDV IM ONE (08:54)
[2022-04-13 09:31] VITALS: BP 145/97; PULSE 79
== END 2022-04-13 09:28 | disposition home or self-care (01) ==
LOC: JD.ED 08:29
DX: G93.2 Benign intracranial hypertension (principal); I10 Essential (primary) hypertension; F41.9 Anxiety disorder, unspecified; F32.A Depression, unspecified; E66.9 Obesity, unspecified; Z88.8 Allergy status to other drugs, medicaments and biological substances
CPT/HCPCS: 96372; 99283; J1170; J1200; J2550; 99284

== ENCOUNTER 2022-04-16 09:16 | Emergency (ER) | payer BC ==
[2022-04-16 09:33] VITALS: BP 160/107; PULSE 91
[2022-04-16] MEDS ORDERED: HYDROmorphone 1 MG/ML Syringe IM ONE ×2 (10:13→11:52)
[2022-04-16] MEDS ORDERED: Promethazine 25 MG/ML SDV IM ONE (10:14)
[2022-04-16] MEDS ORDERED: diphenhydrAMINE 50 MG/ML SDV IM ONE (10:14)
[2022-04-16] MEDS ORDERED: Dicyclomine 10 MG Cap PO ONE (10:15)
== END 2022-04-16 12:24 | disposition home or self-care (01) ==
LOC: JD.ED 09:16
DX: R07.89 Other chest pain (principal); G93.2 Benign intracranial hypertension; R51.9 Headache, unspecified; R11.2 Nausea with vomiting, unspecified; E03.9 Hypothyroidism, unspecified; E66.9 Obesity, unspecified; Z68.41 Body mass index [BMI] 40.0-44.9, adult; Z79.899 Other long term (current) drug therapy; Z90.49 Acquired absence of other specified parts of digestive tract; Z91.048 Other nonmedicinal substance allergy status; Z88.7 Allergy status to serum and vaccine; Z88.5 Allergy status to narcotic agent; Z88.6 Allergy status to analgesic agent
CPT/HCPCS: 36415; 71045; 80053; 83735; 83880; 84484; 85025; 85379; 86140; 96372; 99285; A9270; J1170; J1200; J2550; 93010; 99284

== ENCOUNTER 2022-05-19 10:50 | Emergency (ER) | payer BC ==
[2022-05-19 11:43] VITALS: BP 152/106; PULSE 66
[2022-05-19] MEDS ORDERED: HYDROmorphone 1 MG/ML Syringe IM ONE (11:45)
[2022-05-19] MEDS ORDERED: Ondansetron 4 MG Tab.DIS PO ONE (12:20)
== END 2022-05-19 13:05 | disposition home or self-care (01) ==
LOC: JD.ED 10:50 → SUPCPDRO 10:50 → JD.ED 13:05
DX: S51.831A Puncture wound without foreign body of right forearm, initial encounter (principal); G89.29 Other chronic pain; R51.9 Headache, unspecified; R11.0 Nausea; I10 Essential (primary) hypertension; I25.2 Old myocardial infarction; E03.9 Hypothyroidism, unspecified; E66.9 Obesity, unspecified; Z68.38 Body mass index [BMI] 38.0-38.9, adult; Z88.6 Allergy status to analgesic agent; Z88.8 Allergy status to other drugs, medicaments and biological substances; Z79.899 Other long term (current) drug therapy
CPT/HCPCS: 96372; 99283; A9270; J1170; 99284

== ENCOUNTER 2022-05-22 13:24 | Emergency (ER) | payer BC ==
[2022-05-22 13:57] VITALS: BP 141/94; PULSE 73
[2022-05-22] MEDS ORDERED: Sodium Chloride 0.9% 10 ML Syringe FLUSH PRN (14:19)
[2022-05-22] MEDS ORDERED: Sodium Chloride 0.9% 1,000 ML IV ONE (14:36)
[2022-05-22] MEDS ORDERED: HYDROmorphone 1 MG/ML Syringe IVPUSH ONE ×2 (14:36→16:27)
[2022-05-22] MEDS ORDERED: Promethazine 25 MG in Sodium Chloride 0.9% 50 ML IV ONE (14:36)
[2022-05-22 15:52] LABS: ESTIMATED GFR 70 mL/min (>60)
[2022-05-22 15:52] LABS: CORONAVIRUS COVID-19 NAA NEGATIVE (NEGATIVE)
== END 2022-05-22 17:26 | disposition home or self-care (01) ==
LOC: JD.ED 13:24
DX: G89.29 Other chronic pain (principal); R51.9 Headache, unspecified; B34.9 Viral infection, unspecified; E03.9 Hypothyroidism, unspecified; I10 Essential (primary) hypertension; E66.9 Obesity, unspecified; Z68.38 Body mass index [BMI] 38.0-38.9, adult; Z88.7 Allergy status to serum and vaccine; Z88.6 Allergy status to analgesic agent; Z88.8 Allergy status to other drugs, medicaments and biological substances; Z79.899 Other long term (current) drug therapy; Z90.49 Acquired absence of other specified parts of digestive tract; Z20.822 Contact with and (suspected) exposure to COVID-19
CPT/HCPCS: 0240U; 36415; 80053; 85025; 86140; 96361; 96365; 96375; 96376; 99284; J1170; J2550; J3490; J7030

== ENCOUNTER 2022-05-31 08:04 | Emergency (ER) | payer BC ==
[2022-05-31 08:45] VITALS: BP 136/88; PULSE 83
[2022-05-31] MEDS ORDERED: HYDROmorphone 1 MG/ML Syringe IM ONE (09:15)
[2022-05-31] MEDS ORDERED: HYDROmorphone 0.5 MG/0.5 ML Syringe IM ONE (11:12)
== END 2022-05-31 11:44 | disposition home or self-care (01) ==
LOC: JD.ED 08:04
DX: S93.602A Unspecified sprain of left foot, initial encounter (principal); S09.90XA Unspecified injury of head, initial encounter; E03.9 Hypothyroidism, unspecified; I10 Essential (primary) hypertension; E66.9 Obesity, unspecified; Z68.30 Body mass index [BMI] 30.0-30.9, adult; Z88.1 Allergy status to other antibiotic agents; Z88.8 Allergy status to other drugs, medicaments and biological substances; Z88.6 Allergy status to analgesic agent; Z79.899 Other long term (current) drug therapy; Z90.49 Acquired absence of other specified parts of digestive tract; W01.0XXA Fall on same level from slipping, tripping and stumbling without subsequent striking against object, initial encounter
CPT/HCPCS: 70450; 72125; 73630; 93005; 96372; 99284; J1170; 93010

== ENCOUNTER 2022-06-08 08:08 | Emergency (ER) | payer BC ==
[2022-06-08 08:30] VITALS: BP 157/103; PULSE 82
[2022-06-08] MEDS ORDERED: HYDROmorphone 1 MG/ML Syringe IM ONE (08:48)
[2022-06-08] MEDS ORDERED: Ondansetron 4 MG Tab.DIS PO ONE (08:48)
[2022-06-08] MEDS ORDERED: HYDROmorphone 1 MG/ML Syringe ONE (09:10)
== END 2022-06-08 09:27 | disposition home or self-care (01) ==
LOC: JD.ED 08:08
DX: R51.9 Headache, unspecified (principal); I10 Essential (primary) hypertension; E66.9 Obesity, unspecified; Z68.41 Body mass index [BMI] 40.0-44.9, adult; Z88.8 Allergy status to other drugs, medicaments and biological substances; Z88.1 Allergy status to other antibiotic agents; Z88.6 Allergy status to analgesic agent; Z79.899 Other long term (current) drug therapy; Z90.49 Acquired absence of other specified parts of digestive tract
CPT/HCPCS: 96372; 99283; A9270; J1170; 99282

== ENCOUNTER 2022-06-15 09:26 | Emergency (ER) | payer BC ==
[2022-06-15] MEDS ORDERED: Ondansetron 4 MG/2 ML SDV IM ONE (13:12)
[2022-06-15] MEDS ORDERED: HYDROmorphone 1 MG/ML Syringe IM ONE (13:12)
[2022-06-15 16:32] VITALS: BP 144/102; PULSE 70
== END 2022-06-15 14:05 | disposition home or self-care (01) ==
LOC: JD.ED 09:26
DX: R51.9 Headache, unspecified (principal); G89.29 Other chronic pain; I10 Essential (primary) hypertension; E03.9 Hypothyroidism, unspecified; E66.9 Obesity, unspecified; Z68.38 Body mass index [BMI] 38.0-38.9, adult; Z88.8 Allergy status to other drugs, medicaments and biological substances; Z88.6 Allergy status to analgesic agent
CPT/HCPCS: 96372; 99283; J1170; J2405

== ENCOUNTER 2022-07-02 10:45 | Emergency (ER) | payer BC ==
[2022-07-02 11:02] VITALS: BP 145/97; PULSE 70
[2022-07-02] MEDS ORDERED: HYDROmorphone 1 MG/ML Syringe IM ONE ×2 (11:35→13:20)
[2022-07-02] MEDS ORDERED: Ondansetron 4 MG/2 ML SDV IM ONE (11:35)
[2022-07-02 12:58] LABS: ESTIMATED GFR 79 mL/min (>60)
[2022-07-02] MEDS ORDERED: HYDROmorphone 0.5 MG/0.5 ML Syringe IM ONE (13:21)
== END 2022-07-02 13:45 | disposition home or self-care (01) ==
LOC: JD.ED 10:45
DX: R07.89 Other chest pain (principal); R51.9 Headache, unspecified; I10 Essential (primary) hypertension; E66.9 Obesity, unspecified; Z68.30 Body mass index [BMI] 30.0-30.9, adult; Z88.8 Allergy status to other drugs, medicaments and biological substances; Z88.6 Allergy status to analgesic agent; Z79.899 Other long term (current) drug therapy; Z90.49 Acquired absence of other specified parts of digestive tract
CPT/HCPCS: 36415; 80053; 84484; 85025; 85379; 93005; 96372; 99285; J1170; J2405; 93010; 99284

== ENCOUNTER 2022-07-05 08:18 | Emergency (ER) | payer BC ==
[2022-07-05 11:14] VITALS: BP 181/133; PULSE 75
[2022-07-05] MEDS ORDERED: Ondansetron 4 MG/2 ML SDV IM ONE (12:33)
[2022-07-05] MEDS ORDERED: HYDROmorphone 1 MG/ML Syringe IM ONE (12:33)
== END 2022-07-05 13:20 | disposition home or self-care (01) ==
LOC: JD.ED 08:18
DX: G89.29 Other chronic pain (principal); R51.9 Headache, unspecified; I10 Essential (primary) hypertension; F41.9 Anxiety disorder, unspecified; F32.A Depression, unspecified; E66.9 Obesity, unspecified; D50.9 Iron deficiency anemia, unspecified; Z68.41 Body mass index [BMI] 40.0-44.9, adult; Z88.8 Allergy status to other drugs, medicaments and biological substances; Z88.1 Allergy status to other antibiotic agents
CPT/HCPCS: 96372; 99283; J1170; J2405

== ENCOUNTER 2022-07-15 08:58 | Emergency (ER) | payer BC ==
[2022-07-15 10:09] VITALS: BP 145/99; PULSE 86
[2022-07-15] MEDS ORDERED: HYDROmorphone 1 MG/ML Syringe IM ONE (10:32)
== END 2022-07-15 10:50 | disposition home or self-care (01) ==
LOC: JD.ED 08:58
DX: G93.2 Benign intracranial hypertension (principal); E66.9 Obesity, unspecified; Z88.8 Allergy status to other drugs, medicaments and biological substances; Z88.1 Allergy status to other antibiotic agents; Z88.6 Allergy status to analgesic agent; Z79.899 Other long term (current) drug therapy; Z90.49 Acquired absence of other specified parts of digestive tract
CPT/HCPCS: 96372; 99283; J1170

== ENCOUNTER 2022-07-19 08:11 | Emergency (ER) | payer BC ==
[2022-07-19] MEDS ORDERED: HYDROmorphone 1 MG/ML Syringe IM ONE (08:32)
[2022-07-19] MEDS ORDERED: Promethazine 25 MG/ML SDV IM ONE (08:33)
[2022-07-19] MEDS ORDERED: HYDROmorphone 0.5 MG/0.5 ML Syringe IM ONE (09:10)
[2022-07-19 09:26] VITALS: BP 138/92; PULSE 102
== END 2022-07-19 09:20 | disposition home or self-care (01) ==
LOC: JD.ED 08:11
DX: C71.0 Malignant neoplasm of cerebrum, except lobes and ventricles (principal); E03.9 Hypothyroidism, unspecified; E66.9 Obesity, unspecified; Z91.011 Allergy to milk products; Z88.8 Allergy status to other drugs, medicaments and biological substances; Z79.899 Other long term (current) drug therapy; Z68.41 Body mass index [BMI] 40.0-44.9, adult
CPT/HCPCS: 96372; 99283; J1170; J2550

== ENCOUNTER 2022-07-29 11:11 | Emergency (ER) | payer BC ==
[2022-07-29] MEDS ORDERED: HYDROmorphone 1 MG/ML Syringe IM ONE (12:08)
[2022-07-29] MEDS ORDERED: Promethazine 25 MG/ML SDV IM ONE (12:09)
[2022-07-29 13:14] VITALS: BP 138/90; PULSE 75
== END 2022-07-29 13:14 | disposition home or self-care (01) ==
LOC: JD.ED 11:11
DX: R51.9 Headache, unspecified (principal); I10 Essential (primary) hypertension; E03.9 Hypothyroidism, unspecified; E66.9 Obesity, unspecified; Z68.41 Body mass index [BMI] 40.0-44.9, adult; Z91.011 Allergy to milk products; Z88.6 Allergy status to analgesic agent; Z88.8 Allergy status to other drugs, medicaments and biological substances; Z79.899 Other long term (current) drug therapy
CPT/HCPCS: 96372; 99283; J1170; J2550

== ENCOUNTER 2022-08-03 13:32 | Emergency (ER) | payer BC ==
[2022-08-03 13:49] VITALS: PULSE 94
[2022-08-03 13:52] VITALS: BP 134/85
[2022-08-03] MEDS ORDERED: HYDROmorphone 1 MG/ML Syringe IM ONE (14:01)
== END 2022-08-03 15:13 | disposition home or self-care (01) ==
LOC: JD.ED 13:32
DX: S82.831A Other fracture of upper and lower end of right fibula, initial encounter for closed fracture (principal); S92.514A Nondisplaced fracture of proximal phalanx of right lesser toe(s), initial encounter for closed fracture; E03.9 Hypothyroidism, unspecified; I10 Essential (primary) hypertension; E66.9 Obesity, unspecified; Z68.41 Body mass index [BMI] 40.0-44.9, adult; Z88.8 Allergy status to other drugs, medicaments and biological substances; Z88.1 Allergy status to other antibiotic agents; Z88.6 Allergy status to analgesic agent; Z79.899 Other long term (current) drug therapy; Z90.49 Acquired absence of other specified parts of digestive tract; W18.40XA Slipping, tripping and stumbling without falling, unspecified, initial encounter
CPT/HCPCS: 73610; 73630; 96372; 99283; J1170

== ENCOUNTER 2022-08-13 09:19 | Emergency (ER) | payer BC ==
[2022-08-13 10:19] VITALS: BP 155/82; PULSE 67
== END 2022-08-13 10:44 | disposition left against medical advice (07) ==
LOC: JD.ED 09:19
DX: Z53.21 Procedure and treatment not carried out due to patient leaving prior to being seen by health care provider (principal)

== ENCOUNTER 2022-08-16 08:29 | Emergency (ER) | payer BC ==
[2022-08-16 10:13] VITALS: PULSE 68
[2022-08-16 16:31] VITALS: BP 90/40
== END 2022-08-16 15:00 | disposition home or self-care (01) ==
LOC: JD.ED 08:29
DX: Z71.1 Person with feared health complaint in whom no diagnosis is made (principal); E03.9 Hypothyroidism, unspecified; Z88.6 Allergy status to analgesic agent; Z88.8 Allergy status to other drugs, medicaments and biological substances; Z91.011 Allergy to milk products; Z79.899 Other long term (current) drug therapy
CPT/HCPCS: 36415; 80053; 85007; 85027; 87040; 99283

== ENCOUNTER 2022-09-04 09:23 | Emergency (ER) | payer BC ==
[2022-09-04 10:04] VITALS: BP 141/97; PULSE 78
[2022-09-04] MEDS ORDERED: HYDROmorphone 1 MG/ML Syringe IM ONE (10:40)
[2022-09-04] MEDS ORDERED: Ondansetron 4 MG Tab.DIS PO ONE (10:40)
[2022-09-04] MEDS ORDERED: Ketorolac 30 MG/ML SDV IM ONE (11:31)
== END 2022-09-04 11:50 | disposition home or self-care (01) ==
LOC: JD.ED 09:23
DX: R51.9 Headache, unspecified (principal); I10 Essential (primary) hypertension; Z79.899 Other long term (current) drug therapy
CPT/HCPCS: 96372; 99283; A9270; J1170; J1885

== ENCOUNTER 2022-09-16 08:46 | Emergency (ER) | payer BC ==
[2022-09-16 09:03] VITALS: BP 119/72; PULSE 71
[2022-09-16] MEDS ORDERED: HYDROmorphone 1 MG/ML Syringe IVPUSH ONE (12:30)
[2022-09-16] MEDS ORDERED: Ondansetron 4 MG/2 ML SDV IVPUSH ONE (12:30)
[2022-09-16] MEDS ORDERED: Lactated Ringers 1,000 ML IV ONE (12:30)
[2022-09-16] MEDS ORDERED: Ondansetron 4 MG Tab.DIS PO ONE (13:10)
[2022-09-16] MEDS ORDERED: HYDROmorphone 1 MG/ML Syringe IM ONE ×2 (13:10)
== END 2022-09-16 13:20 | disposition home or self-care (01) ==
LOC: JD.ED 08:46
DX: R51.9 Headache, unspecified (principal); I10 Essential (primary) hypertension; E66.9 Obesity, unspecified; Z68.1 Body mass index [BMI] 19.9 or less, adult; Z88.8 Allergy status to other drugs, medicaments and biological substances; Z88.1 Allergy status to other antibiotic agents; Z88.6 Allergy status to analgesic agent; Z79.899 Other long term (current) drug therapy; Z90.49 Acquired absence of other specified parts of digestive tract
CPT/HCPCS: 96372; 99283; A9270; J1170

== ENCOUNTER 2022-09-28 04:40 | Emergency (ER) | payer BC ==
[2022-09-28 04:52] VITALS: BP 138/88; PULSE 80
[2022-09-28] MEDS ORDERED: Ondansetron 4 MG Tab.DIS PO ONE (06:12)
[2022-09-28] MEDS ORDERED: HYDROmorphone 1 MG/ML Syringe IM ONE (07:05)
[2022-09-28] MEDS ORDERED: diphenhydrAMINE 50 MG/ML SDV IM ONE (07:06)
[2022-09-28] MEDS ORDERED: Promethazine 25 MG/ML SDV IM ONE (07:06)
[2022-09-28] MEDS ORDERED: HYDROmorphone 1 MG/ML Syringe ONE (07:21)
[2022-09-28] MEDS ORDERED: Promethazine 25 MG/ML SDV ONE (07:26)
== END 2022-09-28 07:35 | disposition home or self-care (01) ==
LOC: JD.ED 04:40
DX: G93.2 Benign intracranial hypertension (principal); M19.90 Unspecified osteoarthritis, unspecified site; E03.9 Hypothyroidism, unspecified; E66.9 Obesity, unspecified; Z68.36 Body mass index [BMI] 36.0-36.9, adult; Z88.8 Allergy status to other drugs, medicaments and biological substances; Z88.6 Allergy status to analgesic agent; Z79.899 Other long term (current) drug therapy
CPT/HCPCS: 96372; 99283; A9270; J1170; J1200; J2550

== ENCOUNTER 2022-10-08 11:36 | Emergency (ER) | payer BC | END 2022-10-08 12:23 | LOC: JD.ED 11:36 | DX: Z53.21 Procedure and treatment not carried out due to patient leaving prior to being seen by health care provider (principal) ==

== ENCOUNTER 2022-10-10 12:10 | Emergency (ER) | payer SELFPAY ==
[2022-10-10 13:36] VITALS: BP 173/112; PULSE 73
[2022-10-10] MEDS ORDERED: Metoclopramide 10 MG Tab PO ONE (14:17)
[2022-10-10] MEDS ORDERED: diphenhydrAMINE 25 MG Cap PO ONE (14:17)
== END 2022-10-10 17:13 | disposition home or self-care (01) ==
LOC: JD.ED 12:10
DX: R51.9 Headache, unspecified (principal); I10 Essential (primary) hypertension; E03.9 Hypothyroidism, unspecified; E66.9 Obesity, unspecified; Z79.899 Other long term (current) drug therapy; Z88.8 Allergy status to other drugs, medicaments and biological substances; Z88.6 Allergy status to analgesic agent
CPT/HCPCS: 70250; 70360; 70450; 71046; 74019; 99284; A9270

== ENCOUNTER 2022-10-12 03:55 | Emergency (ER) | payer SELFPAY ==
[2022-10-12] MEDS ORDERED: HYDROmorphone 1 MG/ML Syringe IM ONE (07:02)
[2022-10-12] MEDS ORDERED: diphenhydrAMINE 50 MG/ML SDV IM ONE (07:03)
[2022-10-12] MEDS ORDERED: Promethazine 25 MG/ML SDV IM ONE (07:03)
[2022-10-12] MEDS ORDERED: LORazepam 1 MG Tab PO ONE (07:08)
[2022-10-12 08:02] VITALS: BP 158/89; PULSE 68
== END 2022-10-12 08:04 | disposition home or self-care (01) ==
LOC: JD.ED 03:55
DX: G93.2 Benign intracranial hypertension (principal); R11.2 Nausea with vomiting, unspecified; E03.9 Hypothyroidism, unspecified; E66.9 Obesity, unspecified; Z88.8 Allergy status to other drugs, medicaments and biological substances; Z91.011 Allergy to milk products; Z79.899 Other long term (current) drug therapy; Z68.37 Body mass index [BMI] 37.0-37.9, adult
CPT/HCPCS: 96372; 99283; A9270-GY; J1170; J1200; J2550

== ENCOUNTER 2022-10-19 09:21 | Emergency (ER) | payer SELFPAY ==
[2022-10-19] MEDS ORDERED: Promethazine 25 MG/ML SDV IM ONE (10:19)
[2022-10-19] MEDS ORDERED: HYDROmorphone 1 MG/ML Syringe IM ONE (10:19)
[2022-10-19 11:16] VITALS: BP 116/85; PULSE 74
== END 2022-10-19 10:55 | disposition home or self-care (01) ==
LOC: JD.ED 09:21
DX: R51.9 Headache, unspecified (principal); I10 Essential (primary) hypertension; E03.9 Hypothyroidism, unspecified; E66.9 Obesity, unspecified; Z68.37 Body mass index [BMI] 37.0-37.9, adult; Z88.8 Allergy status to other drugs, medicaments and biological substances
CPT/HCPCS: 96372; 99283; J1170; J2550